=== PATIENT | male | born 1955 | race Caucasian/White ===

== ENCOUNTER 2019-03-26 16:31 | Emergency (ER) | payer MEDICARE, OTHER ==
--- OUTSIDE RECORDS SUMMARY | 2019-03-26 16:33 | XMS REPORT | Summary of Care ---
:1955 Author Organization [facility] - [facility] Address [address] [place] [id number] Care Team Providers Name Role Phone Terell Mann Primary Care Provider Reason for Visit Reason Comments Follow-up Encounter Details Date Type Department Care Team Description 09/12/2018 Office Visit [facility] Ben Hernandez MD [address] [place] [id number] Acute hematogenous Infectious Diseases- Alfredo Cage MD [address] [place] [address]. [place] [address] osteomyelitis of right Dahinda foot (Primary Dx) [facility] [address], [address] [place] [address] Allergies Active Allergy Reactions Severity Noted Date Comments Hydrocodone-Acetaminophen Nausea and/or Vomiting Low 05/10/2011 documented as of this encounter (statuses as of 09/12/2018) Medications Medication Sig Dispensed Refills Start Date End Date Status omeprazole (PRILOSEC) Take 40 mg by 0 Active 20 mg capsule mouth daily. aspirin 325 mg tablet Take 325 mg by 0 Active mouth daily. citalopram (CELEXA) Take 40 mg by 0 Active 40 mg tablet mouth daily. clopidogrel (PLAVIX) Take 75 mg by 0 Active 75 mg tablet mouth daily. traMADOL 50 mg Take 1 tablet by 40 tablet 0 05/14/2018 Active tabletIndications: mouth every 6 Right foot infection (six) hours as needed for Pain (scale 4-6) or Pain (scale 7-10). insulin NPH 100 inject under 0 Active unit/mL injection the skin 3 (three) times daily. Sliding scale TID LISINOPRIL ORAL Take by mouth 0 Active as needed. atorvastatin 40 mg Take 1 tablet by 30 tablet 0 08/14/2018 09/13/2018 Active tabletIndications: mouth at bedtime Foot infection for 30 days. metFORMIN 1,000 mg Take 1 tablet by 60 tablet 0 08/14/2018 09/13/2018 Active tabletIndications: mouth 2 (two) Foot infection times daily with meals for 30 days. proMETHazine 12.5 mg Take 1 tablet by 20 tablet 0 08/27/2018 Active tablet mouth every 4 (four) hours as needed for Nausea and Vomiting (N/V). sulfamethoxazole-trim Take 2 tablets 120 tablet 0 09/12/2018 Active ethoprim (BACTRIM DS) by mouth 2 (two) 800-160 mg per times daily. 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, with long-term current use of insulin Infection of joint of ankle 08/10/2018 Cellulitis of foot 07/16/2018 S/P foot surgery 05/28/2018 S/P orthopedic surgery, follow-up exam 05/28/2018 Charcot's arthropathy 05/28/2018 Right foot infection 04/19/2018 Obesity (BMI 30-39.9) 11/29/2017 At risk for inadequate pain control 11/29/2017 documented as of this encounter (statuses as of 09/12/2018) Social History Tobacco Use Types Packs/Day Years Used Date Never Smoker Smokeless Tobacco: Never Used Education Answer Date Recorded What is the highest level of school Associate degree: occupational, 2018 you have completed or the highest technical, or vocational program degree you have received? Financial Resource Strain Answer Date Recorded How hard is it for you to pay for the very basics like Not hard at all 2018 food, housing, medical care, and heating? Food Insecurity Answer Date Recorded Within the past 12 months, you worried that your food would Not asked run out before you got money to buy more. Within the past 12 months, the food you bought just didn't Never true 2018 last and you didn't have money to get more. Transportation Needs Answer Date Recorded In the past 12 months, has lack of transportation kept you from No 08/10/2018 medical appointments or from getting medications? In the past 12 months, has lack of transportation kept you from No 08/10/2018 meetings, work, or getting things needed for daily living? Sex Assigned at Date Recorded Not on file Job Start Date Occupation Industry Not on file Not on file Not on file Travel History Travel Start Travel End No recent travel history available. documented as of this encounter Last Filed Vital Signs Vital Sign Reading Time Taken Comments Blood Pressure 135/64 09/12/2018 10:01 AM CDT Pulse 82 09/12/2018 10:01 AM CDT Temperature 36.8 C (98.2 F) 09/12/2018 10:01 AM CDT Respiratory Rate 18 09/12/2018 10:01 AM CDT Oxygen Saturation - - Inhaled Oxygen Concentration - - Weight 123.4 kg (272 lb) 09/12/2018 10:01 AM CDT Height 190.5 cm (6' 3") 09/12/2018 10:01 AM CDT Body Mass Index 34 09/12/2018 10:01 AM CDT documented in this encounter Progress Notes Alfredo Cage MD - 09/12/2018 11:00 AM CDT Visit Type: ID Followup Outpatient Date of service: 09/12/2018 CC: R foot osteomyelitis PERTINENT HPI: Pedro Estrella is a 63 year old male with history of uncontrolled DM, CAD s/p CABG ( 2011) via vein harvested from RLE, charcot deformity, R foot fracture s/p hardware placement c/b staph lugduenesis infection s/p hardware removal, here for follow up of R foot osteomyelitis. Patient had initial injury of R foot 11/2017 found with fracture and underwent nail placement. He had external fixator which was removed 01/2018. During 2018 he was found to have abscess at R hindfoot ad loosening nails in calcaneus and underwent hardware removal. Cultures of tissues and hardwares both grew staph lugduenesis, he was not treated with further abx post removal. He subsequently hadworsening R foot swelling and erythema leading up to admission when he was discharged and received 2 courses of bacterim. LCV 2018, he reported subjective fever and chills, and pain andswelling of R foot. His sed rate and CRP remained elevated at 112 and 9. MRI of R foot revealed effusion at base of R ankle T1 diminished signal and T2 hyperintensity suspicious for abscess. He was admitted at [place], I&D of R foot collection was negative on gram stain and culture (he had received 3 days of high dose bactrim at that time). He was off abx for 2 weeks before returning to orthoepedics 08/27, and in office fluid aspiration was not sent for culture. INTERIM HISTORY He reported improvement of swelling and pain of R foot since aspiration and abx. He has been off abx since discharge. He denied fever/chills, anorexia, night sweat or weight loss. He is motivated toget his blood glucose under control taking sugar free drinks and counting calories. He is currentlytaking insulin at this time. ANTIMICROBIAL HISTORY None currently PMH: Past Medical History: Diagnosis Date Depression GERD (gastroesophageal reflux disease) Type 2 diabetes mellitus MEDICATIONS Current Outpatient Medications on File Prior to Visit Medication Sig Dispense Refill proMETHazine 12.5 mg tablet Take 1 tablet by mouth every 4 (four) hours as needed for Nausea andVomiting (N/V). 20 tablet 0 atorvastatin 40 mg tablet Take 1 tablet by mouth at bedtime for 30 days. 30 tablet 0 metFORMIN 1,000 mg tablet Take 1 tablet by mouth 2 (two) times daily with meals for 30 days. 60 tablet 0 LISINOPRIL ORAL Take by mouth as needed. insulin NPH 100 unit/mL injection inject under the skin 3 (three) times daily. Sliding scale TID traMADOL 50 mg tablet Take 1 tablet by mouth every 6 (six) hours as needed for Pain (scale 4-6) or Pain (scale 7-10). 40 tablet 0 aspirin 325 mg tablet Take 325 mg by mouth daily. citalopram (CELEXA) 40 mg tablet Take 40 mg by mouth daily. clopidogrel (PLAVIX) 75 mg tablet Take 75 mg by mouth daily. omeprazole (PRILOSEC) 20 mg capsule Take 40 mg by mouth daily. No current facility-administered medications on file prior to visit. 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: [employer] Social Needs Financial resource strain: Not hard at all Food insecurity: Worry: Not on file Inability: Never true Transportation needs: Medical: No Non-medical: No Tobacco Use Smoking status: Never Smoker Smokeless tobacco: Never Used Substance and Sexual Activity Alcohol use: Not on file Drug use: Not on file Sexual activity: Not on file Lifestyle Physical activity: Days per week: Not on file Minutes per session: Not on file Stress: Not on file Relationships Social connections: Talks on phone: Not on file Gets together: Not on file Attends oriental orthodox service: Not on file Active member of club or organization: Not on file Attends meetings of clubs or organizations: Not on file Relationship status: Not on file Intimate partner violence: Fear of current or ex partner: Not on file Emotionally abused: Not on file Physically abused: Not on file Forced sexual activity: Not on file Other Topics Concern Not on file Social History Narrative Not on file FAMILY HISTORY No family history on file. No recent sick contacts or TB exposure PHYSICAL EXAM Constitutional: chronic ill appearing male BP 135/64 | Pulse 82 | Temp 36.8 C (98.2 F) (Oral) | Resp 18 | Ht 6' 3" (1.905 m) | Wt 272 lb (123.4 kg) | BMI 34.00 kg/m Eyes: EOMI, anicteric sclerae. Moist pink conjunctivae ENT: exam is normal CV: RRR, S1, S2 normal; no murmurs, rubs or gallops, arterial pulse +. Respiratory: clear to auscultation bilaterally, normal respiratory effort GI: abdomen soft; non-tender; non-distended; normoactive bowel sounds Musculoskeletal/skin: R foot with swelling at base of ankle to mid foot, improved compared to prior,chronic dermatitis present, no ulcers or maceration between toes. ROM of R ankle is intact. LABORATORY WBC (10*3/L) Date Value 09/12/2018 12.17 (H) HGB (g/dL) Date Value 09/12/2018 12.4 PLT (10*3/L) Date Value 09/12/2018 559 (H) CREATININE (mg/dL) Date Value 09/12/2018 1.01 GLUCOSE (mg/dL) Date Value 09/12/2018 93 ALT(SGPT) (U/L) Date Value 07/16/2018 34 AST(SGOT) (U/L) Date Value 07/16/2018 46 (H) ALK PHOS (U/L) Date Value 07/16/2018 426 (H) CULTURE DATA 04/20/2018 implant and tissue cultures Implant/Hardware/Ortho Infection Culture 1+ Staphylococcus lugdunensis Gram stain No Organisms seen Moderate Polymorphonuclear leukocytes Susceptibility Staphylococcus lugdunensis SUSCEPTIBILITY TESTING Clindamycin >=8 Resistant Erythromycin >=8 Resistant Oxacillin 2 Susceptible Penicillin >=0.5 Resistant Rifampin <=0.5 Susceptible Tetracycline <=1 Susceptible Trimethoprim/Sulfamethoxazole <=10 Susceptible RADIOLOGY MR R foot IMPRESSION Charcot arthropathy affecting the hindfoot and midfoot articulations with complex joint effusion containing susceptibility artifact worrisome for gas with superimposed intra-articular infection given this patient's clinical history. ASSESSMENT # Staph lugduenesis R foot hardware/deep tissue infection- s/p hardware removal 04/2017 #R foot osteomyelitis- hx hardware infection above with elevated sed rate and CRP, likely residual osteomeyelitis secondary to staph lugduenesis. # R ankle complicated collection - s/p aspiration 07/2018 culture negative while on bactrim, subsequent aspiration 08/2018 was not sent for culture. ROM intact intact, not likely septic arthritis. # leukocytosis and thrombocytosis Patient had R foot hardware subsequent complicated by staph lugduenesis hardware and soft tissue infection. Post hardware removal he still has elevated sed rate >100 with elevated CRP >15, all suggestive of chronic osteomyelitis of R foot. MRI foot revealed complicated collection at basel of [place], aspiration while on bactrim was negative; and aspiration off abx was not sent for culture. Cy discussed options regarding abx therapy with patient, intend for at least 3-6 month therapy. Will use bactrim as long as kidney function tolerates. PLAN - start bactrim DS 2 tabs bid. - labs today: bmp, CBC with diff, sed rate and crp - two weeks after started on abx will repeat bmp, if hyperkalemia, will need to titrate bactrim dose. - Discussed with patient importance of compliance with medications - Instructed patient to contact clinic or return if any new problems - RTC in 1 month The above patient was seen and discussed with Dr. David Cage PGY4 documented in this encounter Plan of Treatment Date Type Specialty Care Team Description 10/03/2018 Office Visit Infectious Disease Alfredo Cage MD [address] [place] [phone] Name Type Priority Associated Diagnoses Order Schedule SEDIMENTATION RATE LAB Routine Acute hematogenous 1 Occurrences starting osteomyelitis of right 09/12/2018 until foot 10/13/2018 C-REACTIVE PROTEIN LAB Routine Acute hematogenous 1 Occurrences starting osteomyelitis of right 09/12/2018 until foot 10/13/2018 BASIC METABOLIC PANEL LAB Routine Acute hematogenous 1 Occurrences starting (NA, K, CL, CO2, GLUCOSE, osteomyelitis of right 09/12/2018 until BUN, CREATININE, CA) foot 10/13/2018 Health Maintenance Due Date Last Done Comments HEPATITIS C (HCV) SCREEN 1955 PNEUMOCOCCAL 0-64 YEARS COMBINED 1960 SERIES (1 of 1 - PPSV23) EYE EXAM 1964 LDL-C 1964 URINE MICROALBUMIN 1964 FOOT EXAM 1972 DTaP,Tdap,and Td Vaccines (1 - 1973 Tdap) COLONOSCOPY 2004 Zoster Recombinant Vaccine 2004 (SHINGRIX) (1 of 2) INFLUENZA VACCINE 10/14/2018 HgA1C 01/29/2019 07/30/2018, 04/20/2018, 12/01/2017 CREATININE (SERUM) 08/15/2019 08/14/2018, 08/12/2018, 08/11/2018, Additional history exists documented as of this encounter Implants Implanted Type Area Surveyor Rod Helper Device Shelf Model / Identifier Expiration Serial / Date Lot Wire Westernport Offset Adapter Short Keswick 4933-1-004 - Sl2 S 2 Adapter Right: Keswick 11/27/2018 4933-1-004 / Implanted: Qty: 3 on 11/29/2017 by Austin Aguayo MD at [facility] Westernport Ankle L2 S 2 / NA End Cap, Zackary Protective For 5mm Pins Blue Pack Of 15 #5027-1-050 - Sna END CAP Right: K[place]wick 11/27/2018 [id number] / Implanted: Qty: 1 on 11/29/2017 by Austin Aguayo MD at [facility] NA / L2 S2 Macarthur Pin Adaptor, Short 6mm # 4933-1-020 - Sl2 S 2 PIN Right: Zackary 4933-1-020 / Implanted: Qty: 3 on 11/29/2017 by Austin Aguayo MD at [facility] Ankle L2 S 2 / NA Screw, Fixos Headless Compression 7.0x80mm Keswick #[id number] - Sl3 S 2 SCREW Right: Keswick 11/28/2018 [id number] / Implanted: Qty: 2 on 11/29/2017 by Austin Aguayo MD at [facility] Ankle L3 S 2 / NA Wire 2.0 With Nery [place] Zackary 4933-8-040 - Sna WIRE Right: STYKER 11/27/2018 [id number] / Implanted: Qty: 2 on 11/29/2017 by Austin Aguayo MD at [facility] NA / L 2 S 2 Half Pin Fixation 5mm X 150mml Macarthur Davis Coated Zackary Ref#[id number] Right : Keswick 04/12/2022 [id number] / Implanted: Qty: 1 on 11/29/2017 by Austin Aguayo MD at [facility] NA / [id number] Set Ring External Fixation Full 180mm Id Carbon Holex5 F/Foot & Ankle Fixation #[id number] - Sl2s2 Right: K[place]wick 11/27/2018 4933-5-180 / Implanted: Qty: 2 on 11/29/2017 by Austin Aguayo MD at [facility] Ankle L2S2 / NA Ring External Fixation 180mm #[id number] - Sl2 S 2 Right: Keswick 2018 4934-4-180 / Implanted: Qty: 1 on 11/29/2017 by Austin Aguayo MD at [facility] Ankle L2 S 2 / NA Ring Foot Carbon Fiber Long 180mm X 210mm Zackary Ref#[id number] Right: Zackary 11/27/2018 [id number] / Implanted: Qty: 1 on 11/29/2017 by Austin Aguayo MD at [facility] Ankle L2 S 2 / NA Nut External Fixation 6mm Tangela Short #[id number] - Sl2 S 2 Right: Zackary 11/27/2018 4933-1-010 / Implanted: Qty: 24 on 11/29/2017 by Austin Aguayo MD at [facility] Ankle L2 S 2 / NA Westernport External Fixation 6mm Tangela Carbon #[id number] - Sl2 S 2 Right: [place]wick 11/27/2018 [id number] / Implanted: Qty: 6 on 11/29/2017 by Austin Aguayo MD at [facility] Ankle L2 S 2 / NA Screw, Fixos Headless Compression 7.0x75mm Zackary #[id number] - Sl3 S 2 Right: [place]wick 11/28/2018 [id number] / Implanted: Qty: 1 on 11/29/2017 by Austin Aguayo MD at [facility] Ankle L3 S 2 / NA Screw, Fixos Headless Compression 7.1a730gt Zackary #[id number] - Sl3 S 2 Right : Zakcary 11/28/2018 [id number] / Implanted: Qty: 1 on 11/29/2017 by Austin Aguayo MD at [facility] Ankle L3 S 2 / NA Half Pin External Fixation [id number] Macarthur Davis Coated Self Drilling Zackary Ref #[id number] Right: Zackary 07/13/2022 [id number] / Implanted: Qty: 1 on 11/29/2017 by Austin Aguayo MD at [facility] NA / [id number] Half Pin External Fixation [id number] Macarthur Davis Coated Threaded Self Drilling Zackary Ref#[id number] Right: Zackary 04/12/2022 [id number] / Implanted: Qty: 1 on 11/29/2017 by Austin Aguayo MD at [facility] NA / [id number] Half Pin External Fixation [id number] Macarthur Davis Coated Threaded Self Frilling Zackary Ref#[id number] Right: Keswick 07/13/2022 [id number] / Implanted: Qty: 1 on 11/29/2017 by Austin Aguayo MD at [facility] Foot NA / [id number] Westernport External Fixation 1.5mm-2mm Medium 5 Hole Keswick Ref#[id number] Right : Zackary 4933-1-002 / Implanted: Qty: 4 on 11/29/2017 by Austin Aguayo MD at [facility] Ankle L 2 S 2 / NA Wire Adapter External Fixation 1.5mm-2mm Tangela Long #4933-1-005 - Sl 2 S 2 Right: K[place]wick 11/27/2018 4933-1-005 / Implanted: Qty: 1 on 11/29/2017 by Austin Aguayo MD at [facility] Ankle L 2 S 2 / NA Westernport External Fixation Long Carbon 40mml Threaded #4933-1-021 - Sl 2 S 2 Right: Keswick 11/27/2018 4933-1-021 / Implanted: Qty: 1 on 11/29/2017 by Austin Aguayo MD at [facility] Ankle L 2 S 2 / NA Strut External Fixation Mediium 138-201mml Telescope Blue Zackary Ref#4933-0- 140 Right: Zackary 4933-0-140 / Implanted: Qty: 4 on 11/29/2017 by Austin Aguayo MD at [facility] Ankle L2 S 2 / NA Strut External Fixation Long 60mml Carbon #[id number] - Sl 2 S 2 Right: Zackary 11/27/2018 4933-1-560 / Implanted: Qty: 3 on 11/29/2017 by Austin Aguayo MD at [facility] L 2 S 2 / NA documented as of this encounter Procedures Procedure Name Priority Date/Time Associated Diagnosis Comments CBC WITH DIFFERENTIAL Routine 09/12/2018 12:27 Acute hematogenous Results for this PM CDT osteomyelitis of procedure are in right foot the results section. CBC WITH DIFF Routine 09/12/2018 12:27 Acute hematogenous Results for this PM CDT osteomyelitis of procedure are in right foot the results section. SEDIMENTATION RATE Routine 09/12/2018 12:27 Acute hematogenous Results for this PM CDT osteomyelitis of procedure are in right foot the results section. BASIC METABOLIC PANEL Routine 09/12/2018 12:27 Acute hematogenous Results for this (NA, K, CL, CO2, PM CDT osteomyelitis of procedure are in GLUCOSE, BUN, right foot the results CREATININE, CA) section. C-REACTIVE PROTEIN Routine 09/12/2018 12:27 Acute hematogenous Results for this PM CDT osteomyelitis of procedure are in right foot the results section. documented in this encounter Results CBC WITH DIFFERENTIAL (09/12/2018 12:27 PM CDT) WBC 12.17 (H) 4.20 - 10.70 [facility] 10*3/L SERVICES RBC 4.69 4.26 - 5.52 [facility] 10*6/L SERVICES HGB 12.4 12.2 - 16.4 [facility] g/dL SERVICES HCT 40.5 38.4 - 49.3 % [facility] MCV 86.4 81.7 - 95.6 fL [facility] MCH 26.4 26.1 - 32.7 pg [facility] MCHC 30.6 (L) 31.2 - 35.0 [facility] g/dL SERVICES RDW-SD 55.4 (H) 38.5 - 51.6 fL [facility] SERVICES RDW-CV 17.9 (H) 12.1 - 15.4 % [facility] SERVICES PLT 559 (H) 150 - 328 [facility] 10*3/L SERVICES MPV 10.6 9.8 - 13.0 fL [facility] SERVICES NRBC/100 WBC 0.0 0.0 - 10.0 /100 [facility] WBCs SERVICES NRBC x10^3 <0.01 10*3/L [facility] SERVICES GRAN MAT (NEUT) % 49.5 % [facility] IMM GRAN % 0.70 % [facility] LYMPH % 36.9 % [facility] MONO % 9.7 % [facility] EOS % 2.5 % [facility] BASO % 0.7 % [facility] GRAN MAT x10^3(ANC) 6.03 1.99 - 6.95 [facility] 10*3/uL SERVICES IMM GRAN x10^3 0.09 (H) 0.00 - 0.06 [facility] 10*3/uL SERVICES LYMPH x10^3 4.49 (H) 1.09 - 3.23 [facility] 10*3/uL SERVICES MONO x10^3 1.18 (H) 0.36 - 1.02 [facility] 10*3/uL SERVICES EOS x10^3 0.30 0.06 - 0.53 [facility] 10*3/uL SERVICES BASO x10^3 0.08 0.01 - 0.09 [facility] 10*3/uL SERVICES Specimen Blood Performing Organization Address City/State/Zipcode Phone Number [facility] CLIA: [id number], [address] [place] [phone] [facility] BASIC METABOLIC PANEL (NA, K, CL, CO2, GLUCOSE, BUN, CREATININE, CA) (2018 12:27 PM CDT) NA 141 135 - 145 mmol/L [facility] K 4.9 3.5 - 5.0 mmol/L [facility] CL 104 98 - 108 mmol/L [facility] CO2 TOTAL 27 23 - 31 mmol/L [facility] AGAP 10 2 - 16 [facility] BUN 19 7 - 23 mg/dL [facility] GLUCOSE 93 70 - 110 mg/dL [facility] CREATININE 1.01 0.60 - 1.25 [facility] mg/dL SERVICES CALCIUM 9.5 8.6 - 10.6 mg/dL [facility] SERVICES eGFR Calculation 74.4 mL/min/1.73m2 [facility] (Non-) SERVICES eGFR Calculation 90.1 mL/min/1.73m2 [facility] () SERVICES Specimen Blood Narrative Performed At Association of Glomerular Filtration Rate (GFR) and Staging [facility] of Kidney Disease* + + + + | GFR (mL/min/1.73 m2)| With Kidney Damage|Without Kidney Damage + + + + |>90|Stage one| Normal + + + + |60-89|Stage two| Decreased GFR + + + + |30-59|Stage three| Stage three + + + + |15-29|Stage four | Stage four + + + + |<15 (or dialysis)|Stage five | Stage five + + + + *Each stage assumes the associated GFR level has been in effect for at least three months.Stages 1 to 5, with or without kidney disease, indicate chronic kidney disease. Notes: Determination of stages one and two (with eGFR >59mL/min/1.73 m2) requires estimation of kidney damage for at least three months as defined by structural or functional abnormalities of the kidney, manifested by either: Pathological abnormalities or Markers of kidney damage (including abnormalities in the composition of the blood or urine or abnormalities in imaging tests). Performing Organization Address [facility] Phone Number [facility] CLIA: [id number], [address] [place] [address] [facility] C-REACTIVE PROTEIN (09/12/2018 12:27 PM CDT) CRP 2.8 (H) <0.8 mg/dL [facility] Specimen Blood Performing Organization Address [facility] Phone Number [facility] CLIA: [id number], [address] [place] [address] [facility] SEDIMENTATION RATE (09/12/2018 12:27 PM CDT) ESR 65 (H) 0 - 10 mm/HR [facility] Specimen Blood Performing Organization Address [facility] Phone Number [facility] CLIA: [id number], [address] [place] [address] [facility] documented in this encounter Visit Diagnoses Diagnosis Acute hematogenous osteomyelitis of right foot - Primary documented in this encounter Insurance Payer Benefit Plan / Subscriber ID Effective Phone Address Type Group Dates [place] AARP MEDICARE [id number] 2018-Prese Medicare Adv HEALTHCARE - COMPLETE nt [place] MANAGED MEDICARE documented as of this encounter
--- OUTSIDE RECORDS SUMMARY | 2019-03-26 16:33 | XMS REPORT | Summary of Care ---
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 [facility] Ben Hernandez MD [address] [place] [address] Acute hematogenous [facility] osteomyelitis of right foot Allergies Active Allergy Reactions Severity Noted Date [...] of this encounter Last Filed Vital Signs Not on filedocumented in this encounter Plan of Treatment Date Type Specialty Care Team Description 11/07/2018 Office Visit Infectious Disease Alfredo Cage MD [address] [place] [phone] Health Maintenance Due Date Last Done Comments [...] of this encounter Implants Implanted Type Area All Round Logger Device Shelf Model / Identifier Expiration Serial / Date Lot Wire [place] Offset Adapter Short Briggs 4933-1-004 - Sl2 S 2 Adapter Right: Briggs 11/27/2018 4933-1-004 / Implanted: Qty: 3 on 11/29/2017 by Austin Aguayo MD at [facility] [place] Ankle L2 S 2 / NA End Cap, Briggs Protective For 5mm Pins Blue Pack Of 15 #5027-1-050 - Sna END CAP Right: Zackary 11/27/2018 5027-1-050 / Implanted: Qty: 1 on 11/29/2017 by Austin Aguayo MD at [facility] NA / L2 S2 Anderson Pin Adaptor, Short 6mm # 4933-1-020 - Sl2 S 2 PIN Right: Zackary 4933-1-020 / Implanted: Qty: 3 on 11/29/2017 by Austin Aguayo MD at [facility] Ankle L2 S 2 / NA Screw, Fixos Headless Compression 7.0x80mm Zackary #[id number] - Sl3 S 2 SCREW Right: Briggs 11/28/2018 [id number] / Implanted: Qty: 2 on 11/29/2017 by Austin Aguayo MD at [facility] Ankle L3 S 2 / NA Wire 2.0 With Rafaela Nery Point Briggs 4933-8-040 - Sna WIRE Right: STYKER 11/27/2018 4933-8-040 / Implanted: Qty: 2 on 11/29/2017 by Austin Aguayo MD at [facility] AT [facility] NA / L 2 S 2 Half Pin Fixation 5mm X 150mml Anderson Davis Coated Zackary Ref#5017-8-150s Right : Zackary 04/12/2022 5017-8-150S / Implanted: Qty: 1 on 11/29/2017 by Austin Aguayo MD at [facility] AT [facility] NA / [id number] Set Ring External Fixation Full 180mm Id Carbon Holex5 F/Foot & Ankle Fixation #4933-5-180 - Sl2s2 Right: Zackayr 11/27/2018 4933-5-180 / Implanted: Qty: 2 on 11/29/2017 by Austin Aguayo MD at [facility] Ankle L2S2 / NA Ring External Fixation 180mm #4934-4-180 - Sl2 S 2 Right: Briggs 2018 4934-4-180 / Implanted: Qty: 1 on 11/29/2017 by Austin Aguayo MD at [facility] Ankle L2 S 2 / NA Ring Foot Carbon Fiber Long 180mm X 210mm Zackary Ref#4934-8-180 Right: Briggs 11/27/2018 4934-8-180 / Implanted: Qty: 1 on 11/29/2017 by Austin Aguayo MD at [facility] Ankle L2 S 2 / NA Nut External Fixation 6mm Tangela Short #4933-1-010 - Sl2 S 2 Right: Briggs 11/27/2018 4933-1-010 / Implanted: Qty: 24 on 11/29/2017 by Austin Aguayo MD at [facility] Ankle L2 S 2 / NA [place] External Fixation 6mm Tangela Carbon #4933-1-702 - Sl2 S 2 Right: Briggs 11/27/2018 4933-1-702 / Implanted: Qty: 6 on 11/29/2017 by Austin Aguayo MD at [facility] Ankle L2 S 2 / NA Screw, Fixos Headless Compression 7.0x75mm Zackary #[id number] - Sl3 S 2 Right: Zackary 11/28/2018 110044 / Implanted: Qty: 1 on 11/29/2017 by Austin Aguayo MD at [facility] Ankle L3 S 2 / NA Screw, Fixos Headless Compression 7.3l310pw Zackary #[id number] - Sl3 S 2 Right : Briggs 11/28/2018 [id number] / Implanted: Qty: 1 on 11/29/2017 by Austin Aguayo MD at [facility] Ankle L3 S 2 / NA Half Pin External Fixation [id number] [place] Coated Self Drilling Briggs Ref #5017-3-150s Right: Zackary 07/13/2022 5017-3-150S / Implanted: Qty: 1 on 11/29/2017 by Austin Aguayo MD at [facility] NA / [id number] Half Pin External Fixation [id number] Anderson Davis Coated Threaded Self Drilling Zackary Ref#5018-5-150s Right: Briggs 04/12/2022 5018-5-150S / Implanted: Qty: 1 on 11/29/2017 by Austin Aguayo MD at [facility] NA / [id number] Half Pin External Fixation [id number] Anderson Davis Coated Threaded Self Frilling Zackary Ref#5017-3-150s Right: Briggs 07/13/2022 5017-3-150S / Implanted: Qty: 1 on 11/29/2017 by Austin Aguayo MD at [facility] Foot NA / [id number] [place] External Fixation 1.5mm-2mm Medium 5 Hole Briggs Ref#4933-1-002 Right : Zackary 4933-1-002 / Implanted: Qty: 4 on 11/29/2017 by Austin Aguayo MD at [facility] Ankle L 2 S 2 / NA Wire Adapter External Fixation 1.5mm-2mm Tangela Long #4933-1-005 - Sl 2 S 2 Right: Zackary 11/27/2018 4933-1-005 / Implanted: Qty: 1 on 11/29/2017 by Austin Aguayo MD at [facility] Ankle L 2 S 2 / NA [place] External Fixation Long Carbon 40mml Threaded #4933-1-021 - Sl 2 S 2 Right: Zackary 11/27/2018 4933-1-021 / Implanted: Qty: 1 on 11/29/2017 by Austin Aguayo MD at [facility] Ankle L 2 S 2 / NA Strut External Fixation Mediium 138-201mml Telescope Blue Zackary Ref#4933-0- 140 Right: Zackary 4933-0-140 / Implanted: Qty: 4 on 11/29/2017 by Austin Aguayo MD at [facility] Ankle L2 S 2 / NA Strut External Fixation Long 60mml Carbon #4933-1-560 - Sl 2 S 2 Right: Zackary 11/27/2018 4933-1-560 / Implanted: Qty: 3 on 11/29/2017 by Austin Aguayo MD at [facility] [place] Ankle L 2 S 2 / NA documented as of this encounter Results Not on filedocumented in this encounter Visit Diagnoses Diagnosis Acute hematogenous osteomyelitis of right foot documented in this encounter Insurance Payer Benefit Plan / Subscriber ID Effective Phone Address Type Group Dates [place] AARP MEDICARE [id number] 2018-Prese Medicare Adv HEALTHCARE - COMPLETE nt [facility] MANAGED MEDICARE documented as of this encounter
--- OUTSIDE RECORDS SUMMARY | 2019-03-26 16:34 | XMS REPORT | Summary of Care ---
:1955 Author Organization [facility] Address [address] [place] [id number] Care Team Providers Name Role Phone MannTerell robbins Primary Care Provider Reason for Visit Reason Comments Follow-up Acute Hematogenous osteomyelitis of the right foot. Encounter Details Date Type Department Care Team Description 10/03/2018 Office Visit [facility] Ben Hernandez MD [address] [place] [address] [id number] Osteomyelitis, Infectious Diseases- Alfredo Cage MD [address] [place] [address]. [place] [address] unspecified [facility], [place] unspecified type [facility] (Primary Dx) [address], [address] [place] [address] Allergies Active Allergy Reactions Severity Noted Date Comments Hydrocodone-Acetaminophen Nausea and/or Vomiting Low 05/10/2011 documented as of this encounter (statuses as of 10/03/2018) Medications Medication Sig Dispensed Refills Start Date End Date Status omeprazole Take 40 mg by 0 Active (PRILOSEC) 20 mg mouth daily. capsule aspirin 325 mg Take 325 mg by 0 Active tablet mouth daily. citalopram (CELEXA) Take 40 mg by 0 Active 40 mg tablet mouth daily. clopidogrel Take 75 mg by 0 Active (PLAVIX) 75 mg mouth daily. tablet traMADOL 50 mg Take 1 tablet 40 tablet 0 05/14/2018 Active tabletIndications: by mouth every Right foot 6 (six) hours infection as needed for Pain (scale 4-6) or Pain (scale 7-10). insulin NPH 100 inject under 0 Active unit/mL injection the skin 3 (three) times daily. Sliding scale TID LISINOPRIL ORAL Take by mouth 0 Active as needed. doxycycline 100 mg Take 1 capsule 60 capsule 2 10/03/2018 Active capsuleIndications: by mouth every Osteomyelitis, 12 (twelve) unspecified site, hours. unspecified type proMETHazine 12.5 Take 1 tablet 20 tablet 0 10/03/2018 Active mg by mouth every tabletIndications: 4 (four) hours Osteomyelitis, as needed for unspecified site, Nausea and unspecified type Vomiting (N/V). proMETHazine 12.5 Take 1 tablet 20 tablet 0 08/27/2018 Discontinued mg tablet by mouth every 9 4 (four) hours as needed for Nausea and Vomiting (N/V). sulfamethoxazole-tr Take 1 tablet 120 tablet 0 09/26/2018 Discontinued imethoprim (BACTRIM by mouth 2 9 DS) 800-160 mg per (two) times tabletIndications: daily. Acute hematogenous osteomyelitis of right foot documented as of this encounter (statuses as of 10/03/2018) Active Problems Problem Noted Date Septic arthritis [...] as of this encounter (statuses as of 10/03/2018) Social History Tobacco Use Types Packs/Day Years Used Date Never Smoker Smokeless Tobacco: Never Used Tobacco Cessation: Counseling Given: No Education Answer Date Recorded What is the [...] Sign Reading Time Taken Comments Blood Pressure 137/69 10/03/2018 9:12 AM CDT Pulse 86 10/03/2018 9:12 AM CDT Temperature 36.8 C (98.3 F) 10/03/2018 8:32 AM CDT Respiratory Rate 16 10/03/2018 8:32 AM CDT Oxygen Saturation - - Inhaled Oxygen Concentration - - Weight 122.8 kg (270 lb 11.2 oz) 10/03/2018 8:32 AM CDT Height 190.5 cm (6' 3") 10/03/2018 8:32 AM CDT Body Mass Index 33.84 10/03/2018 8:32 AM CDT documented in this encounter Progress Notes Alfredo Cage MD - 10/03/2018 8:00 AM CDT Visit Type: ID Followup Outpatient Date of service: 10/03/2018 CC: R foot osteomyelitis PERTINENT HPI: Pedro Estrella is a 63 year old malewith history of uncontrolled DM, CAD s/p CABG [...] suspicious for abscess. He was admitted at [place], I&D of R foot collection was negative on gram stain and culture (he had received 3 days of high dose bactrim at that time). He was off abx for 2 weeks before returning to orthoepedics 08/27, and in office fluid aspiration was not sent for culture. He was started on high dose bactrim 09/12 however 2 weeks bmp check showed hyperkalemia and elevated Cr, patient was instructed to lower bactrim to DS 1 tab bid. Sed rate has improved from 65 to 44, and CRP from 2.8 to 1.4 whileon PO bactrim. INTERIM HISTORY Patient reports foot edema has improved but still had R foot pain. No active ulcer or drainage at this time. Patient denied fever, night sweat, diarrhea or rash with abx. Patient has been experiencing symptomatic hypoglycemia about once per week, when he gets shaky and needs to take something to eat. It happens most frequently at night time. He also has been experiencing dizziness (light headness) when standing up too quickly that takes a bit to adjust. He is afraid of taking lisinopril because when he does, the blood pressure will drop to 110 and he gets dizzy with this blood pressure. He has not had fall. ANTIMICROBIAL HISTORY Bactrim 09/12/2018- [facility]: Past Medical History: Diagnosis Date Depression GERD (gastroesophageal reflux disease) Type 2 diabetes mellitus MEDICATIONS Current Outpatient Medications on File Prior to Visit Medication Sig Dispense Refill LISINOPRIL ORAL Take by mouth as needed. 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 BP 137/69 (BP Location: Left arm, Patient Position: Sitting, BP CUFF SIZE: Adult Medium) | Pulse 86 | Temp 36.8 C (98.3 F) (Oral) | Resp 16 | Ht 6' 3" (1.905 m) | Wt 270 lb 11.2 oz (122.8 kg)| BMI 33.84 kg/m Eyes: EOMI, anicteric sclerae. Moist pink conjunctivae ENT: exam is normal CV: RRR, non tachycardic, regular, no m/r/g Respiratory: clear to auscultation bilaterally, normal respiratory effort GI: abdomen soft; non-tender; non-distended; normoactive bowel sounds Musculoskeletal: R ankle still appears to be swollen, no knee effusion. ROM at R ankle is intact. Charcot deformity is present. Skin: no ulceration over R foot, no masceration between toe webs. LABORATORY WBC (10*3/L) Date Value 09/12/2018 12.17 (H) HGB (g/dL) Date Value 09/12/2018 12.4 PLT (10*3/L) Date Value 09/12/2018 559 (H) CREATININE (mg/dL) Date Value 10/03/2018 1.37 (H) GLUCOSE (mg/dL) Date Value 10/03/2018 160 (H) ALT(SGPT) (U/L) Date Value 07/16/2018 34 AST(SGOT) (U/L) Date Value 07/16/2018 46 (H) ALK PHOS (U/L) Date Value 07/16/2018 426 (H) CULTURE DATA CULTURE DATA 04/20/2018 implant and tissue cultures [...] infection given this patient's clinical history. ASSESSMENT #Staph lugduenesis R foot hardware/deep tissue infection- s/p hardware removal 04/2017 #R foot osteomyelitis- hx hardware infection above with elevated sed rate and CRP, likely residual osteomeyelitis secondary to staph lugduenesis. #R ankle complicated collection - s/p aspiration 07/2018 culture negative while on bactrim, subsequent aspiration 08/2018 was not sent for culture. ROM intact intact, not likely septic arthritis. #leukocytosis and thrombocytosis Patient had R foot hardware subsequent complicated by staph lugduenesis hardware and soft tissue infection. Post hardware removal he still has elevated sed rate >100 with elevated CRP >15, all suggestive of chronic osteomyelitis of R foot. MRI foot revealed complicated collection at basel of [place], aspiration while on bactrim was negative; and aspiration off abx was not sent for culture. Hewas started on high dose bactrim, however has mild elevation in Cr and hyperkalemia, at this time will frame changer to doxycycline. Other problems: #DM with peripheral neuropathy and likely autonomic dysfunction #CAD s/p PCI PLAN - stop bactrim, start doxycycline 100 mg bid - labs in 2 weeks, sed rate and CRP and bmp - Discussed with patient importance of compliance with medications - Instructed patient to contact clinic or return if any new problems - RTC in 3 mo The above patient was seen and discussed with Dr. David Cage PGY4 documented in this encounter Plan of Treatment Date Type Specialty Care Team Description 01/09/2019 Office Visit Infectious Disease Alfredo Cage MD [address] [place] [address]. [place] [address] Health Maintenance Due Date Last Done Comments HEPATITIS C (HCV) SCREEN 1955 PNEUMOCOCCAL 0-64 YEARS COMBINED 1960 SERIES (1 of 1 - PPSV23) EYE EXAM 1964 LDL-C 1964 URINE MICROALBUMIN 1964 FOOT EXAM 1972 DTaP,Tdap,and Td Vaccines (1 - 1973 Tdap) COLONOSCOPY 2004 Zoster Recombinant Vaccine 2004 (SHINGRIX) (1 of 2) INFLUENZA VACCINE (#1) 2018 HgA1C 01/29/2019 07/30/2018, 04/20/2018, 12/01/2017 CREATININE (SERUM) 09/27/2019 09/26/2018, 09/12/2018, 08/14/2018, Additional history exists documented as of this encounter Implants Implanted Type Area Transit Planner Device Shelf Model / Identifier Expiration Serial / Date Lot Wire [place] Offset Adapter Short [place] 4933-1-004 - Sl2 S 2 Adapter Right: [place] 11/27/2018 4933-1-004 / Implanted: Qty: 3 on 11/29/2017 by Austin Aguayo MD at [facility] [place] [facility] [place] Ankle L2 S 2 / NA End Cap, Zackary Protective For 5mm Pins Blue Pack Of 15 #5027-1-050 - Sna END CAP Right: [place] 11/27/2018 5027-1-050 / Implanted: Qty: 1 on 11/29/2017 by Austin Aguayo MD at [facility] AT [facility] NA / L2 S2 [place] [employer] Pin Adaptor, Short 6mm # 4933-1-020 - Sl2 S 2 PIN Right: [place] 4933-1-020 / Implanted: Qty: 3 on 11/29/2017 by Austin Aguayo MD at [facility] AT [facility] L2 S 2 / NA Screw, Fixos Headless Compression 7.0x80mm [place] #[id number] - Sl3 S 2 SCREW Right: [place] 11/28/2018 [id number] / Implanted: Qty: 2 on 11/29/2017 by Austin Aguayo MD at [facility] AT [facility] L3 S 2 / NA Wire 2.0 With Nery [place] Zackary 4933-8-040 - Sna WIRE Right: STYKER 11/27/2018 4933-8-040 / Implanted: Qty: 2 on 11/29/2017 by Austin Aguayo MD at [facility] [employer] NA / L 2 S 2 Half Pin Fixation 5mm X 150mml [employer] Davis Coated Zackary Ref#5017-8-150s Right : Zackary 04/12/2022 5017-8-150S / Implanted: Qty: 1 on 11/29/2017 by Austin Aguayo MD at [facility] AT [facility] NA / [id number] Set Ring External Fixation Full 180mm Id Carbon Holex5 F/Foot & Ankle Fixation #4933-5-180 - Sl2s2 Right: [place] 11/27/2018 4933-5-180 / Implanted: Qty: 2 on 11/29/2017 by Austin Aguayo MD at [facility] [place] [facility] Ankle L2S2 / NA Ring External Fixation 180mm #4934-4-180 - Sl2 S 2 Right: Zackary 2018 4934-4-180 / Implanted: Qty: 1 on 11/29/2017 by Austin Aguayo MD at [facility] [place] [facility] Ankle L2 S 2 / NA Ring Foot Carbon Fiber Long 180mm X 210mm [place] Ref#4934-8-180 Right: [place] 11/27/2018 4934-8-180 / Implanted: Qty: 1 on 11/29/2017 by Austin Aguayo MD at [facility] AT [facility] Ankle L2 S 2 / NA Nut External Fixation 6mm [place] Short #4933-1-010 - Sl2 S 2 Right: [place] 11/27/2018 4933-1-010 / Implanted: Qty: 24 on 11/29/2017 by Austin Aguayo MD at [facility] AT [facility] Ankle L2 S 2 / NA [place] External Fixation 6mm Tangela Carbon #4933-1-702 - Sl2 S 2 Right: [place]ack[place] 11/27/2018 4933-1-702 / Implanted: Qty: 6 on 11/29/2017 by Austin Aguayo MD at [facility] AT [facility] Ankle L2 S 2 / NA Screw, Fixos Headless Compression 7.0x75mm [place] #[id number] - Sl3 S 2 Right: Zackary 11/28/2018 [id number] / Implanted: Qty: 1 on 11/29/2017 by Austin Aguayo MD at [facility] [place] [facility] Ankle L3 S 2 / NA Screw, Fixos Headless Compression 7.9p505fl [place] #[id number] - Sl3 S 2 Right : Zackary 11/28/2018 [id number] / Implanted: Qty: 1 on 11/29/2017 by Austin Aguayo MD at [facility] [place] [facility] Ankle L3 S 2 / NA Half Pin External Fixation [id number] [employer] Davis Coated Self Drilling [place] Ref #5017-3-150s Right: [place] 07/13/2022 5017-3-150S / Implanted: Qty: 1 on 11/29/2017 by Austin Aguayo MD at [facility] [place] [facility] NA / [id number] Half Pin External Fixation [id number] [employer] Davis Coated Threaded Self Drilling Zackary Ref#5018-5-150s Right: Zackary 04/12/2022 5018-5-150S / Implanted: Qty: 1 on 11/29/2017 by Austin Aguayo MD at [facility] AT [facility] NA / [id number] Half Pin External Fixation [id number] [employer] Davis Coated Threaded Self Frilling [place] Ref#5017-3-150s Right: [place] 07/13/2022 5017-3-150S / Implanted: Qty: 1 on 11/29/2017 by Austin Aguayo MD at [facility] [place] [facility] Foot NA / [id number] [place] External Fixation 1.5mm-2mm Medium 5 Hole [place] Ref#4933-1-002 Right : [place] 4933-1-002 / Implanted: Qty: 4 on 11/29/2017 by Austin Aguayo MD at [facility] AT [facility] Ankle L 2 S 2 / NA Wire Adapter External Fixation 1.5mm-2mm Tangela Long #4933-1-005 - Sl 2 S 2 Right: [place] 11/27/2018 4933-1-005 / Implanted: Qty: 1 on 11/29/2017 by Austin Aguayo MD at [facility] [place] [facility] Ankle L 2 S 2 / NA [place] External Fixation Long Carbon 40mml Threaded #4933-1-021 - Sl 2 S 2 Right: Zackary 11/27/2018 4933-1-021 / Implanted: Qty: 1 on 11/29/2017 by Austin Aguayo MD at [facility] [place] [facility] Ankle L 2 S 2 / NA Strut External Fixation Mediium 138-201mml Telescope Blue Zackary Ref#4933-0- 140 Right: Zack[place] 4933-0-140 / Implanted: Qty: 4 on 11/29/2017 by Austin Aguayo MD at [facility] [place] [facility] Ankle L2 S 2 / NA Strut External Fixation Long 60mml Carbon #4933-1-560 - Sl 2 S 2 Right: [place]ack[place] 11/27/2018 4933-1-560 / Implanted: Qty: 3 on 11/29/2017 by Austin Aguayo MD at [facility] [place] [facility] Ankle L 2 S 2 / NA documented as of this encounter Results Not on filedocumented in this encounter Visit Diagnoses Diagnosis Osteomyelitis, unspecified site, unspecified type - Primary documented in this encounter Insurance Payer Benefit Plan / Subscriber ID Effective Phone Address Type Group Dates [place] AARP MEDICARE [id number] 2018-Prese Medicare Adv [facility] documented as of this encounter
--- OUTSIDE RECORDS SUMMARY | 2019-03-26 16:34 | XMS REPORT | Summary of Care ---
:1955 Author Organization [address] [address] Care Team Providers Name Role Phone Terell Mann Primary Care Provider Reason for Visit Reason Comments Orders Encounter Details Date Type Department Care Team Description 09/24/2018 Telephone [facility] Infectious Alfredo Cage MD Orders Diseases- [address] [place] [address] [place] [phone] [place] [address] Allergies Active Allergy Reactions Severity Noted Date Comments Hydrocodone-Acetaminophen Nausea and/or Vomiting Low 05/10/2011 documented as of this encounter (statuses as of 09/24/2018) Medications Medication Sig Dispensed Refills Start Date End Date Status omeprazole (PRILOSEC) Take 40 mg by 0 Active 20 mg capsule mouth daily. aspirin 325 mg tablet Take 325 mg by 0 Active mouth daily. citalopram (CELEXA) 40 Take 40 mg by 0 Active mg tablet mouth daily. clopidogrel (PLAVIX) Take 75 mg by 0 Active 75 mg tablet mouth daily. traMADOL 50 mg Take 1 tablet by 40 tablet 0 05/14/2018 Active tabletIndications: mouth every 6 Right foot infection (six) hours as needed for Pain (scale 4-6) or Pain (scale 7-10). insulin NPH 100 inject under the 0 Active unit/mL injection skin 3 (three) times daily. Sliding scale TID LISINOPRIL ORAL Take by mouth as 0 Active needed. proMETHazine 12.5 mg Take 1 tablet by 20 tablet 0 08/27/2018 Active tablet mouth every 4 (four) hours as needed for Nausea and Vomiting (N/V). sulfamethoxazole-trime Take 2 tablets by 120 tablet 0 09/12/2018 Active thoprim (BACTRIM DS) mouth 2 (two) 800-160 mg per times daily. tabletIndications: Acute hematogenous osteomyelitis of right foot documented as of this encounter (statuses as of 09/24/2018) Active Problems Problem Noted Date Septic arthritis [...] as of this encounter (statuses as of 09/24/2018) Social History Tobacco Use Types Packs/Day Years [...] Office Visit Infectious Disease Alfredo Cage MD [address] [place] [phone] Health Maintenance Due Date Last Done Comments HEPATITIS C (HCV) SCREEN 1955 PNEUMOCOCCAL 0-64 YEARS COMBINED 1960 SERIES (1 of 1 - PPSV23) EYE EXAM 1964 LDL-C 1964 URINE MICROALBUMIN 1964 FOOT EXAM 1972 DTaP,Tdap,and Td Vaccines (1 - 1973 Tdap) COLONOSCOPY 2004 Zoster Recombinant Vaccine 2004 (SHINGRIX) (1 of 2) INFLUENZA VACCINE 10/14/2018 HgA1C 01/29/2019 07/30/2018, 04/20/2018, 12/01/2017 CREATININE (SERUM) 09/13/2019 09/12/2018, 08/14/2018, 08/12/2018, Additional history exists documented as of this encounter Implants Implanted Type Area Senior Controls Analyst Device Shelf Model / Identifier Expiration Serial / Date Lot Wire [place] Offset Adapter Short [place] 4933-1-004 - Sl2 S 2 Adapter Right: [place] 11/27/2018 4933-1-004 / Implanted: Qty: 3 on 11/29/2017 by Austin Aguayo MD at [facility] [place] [facility] S 2 / NA End Cap, [place] Protective For 5mm Pins Blue Pack Of 15 #5027-1-050 - Sna END CAP Right: [place]ack[place] 11/27/2018 5027-1-050 / Implanted: Qty: 1 on 11/29/2017 by Austin Aguayo MD at [facility] [place] AT [facility] Ankle NA / L2 S2 [place] Pin Adaptor, Short 6mm # 4933-1-020 - Sl2 S 2 PIN Right: Zackary 4933-1-020 / Implanted: Qty: 3 on 11/29/2017 by Austin Aguayo MD at [facility] AT [facility] Ankle L2 S 2 / NA Screw, Fixos Headless Compression 7.0x80mm [place] #[id number] - Sl3 S 2 SCREW Right: Zackary 11/28/2018 [id number] / Implanted: Qty: 2 on 11/29/2017 by Austin Aguayo MD at [facility] AT [facility] Ankle L3 S 2 / NA Wire 2.0 With Nery [place] Zackary 4933-8-040 - Sna WIRE Right: STYKER 11/27/2018 4933-8-040 / Implanted: Qty: 2 on 11/29/2017 by Austin Aguayo MD at [facility] AT [facility] NA / L 2 S 2 Half Pin Fixation 5mm X 150mml [place] Davis Coated [place] Ref#5017-8-150s Right : [place] 04/12/2022 5017-8-150S / Implanted: Qty: 1 on 11/29/2017 by Austin Aguayo MD at [facility] AT [facility] NA / [id number] Set Ring External Fixation Full 180mm Id Carbon Holex5 F/Foot & Ankle Fixation #4933-5-180 - Sl2s2 Right: [place] 11/27/2018 4933-5-180 / Implanted: Qty: 2 on 11/29/2017 by Austin Aguayo MD at [facility] AT [facility] Ankle L2S2 / NA Ring External Fixation 180mm #4934-4-180 - Sl2 S 2 Right: [place] 2018 4934-4-180 / Implanted: Qty: 1 on 11/29/2017 by Austin Aguayo MD at [facility] AT [facility] Ankle L2 S 2 / NA Ring Foot Carbon Fiber Long 180mm X 210mm [place] Ref#4934-8-180 Right: Zackary 11/27/2018 4934-8-180 / Implanted: Qty: 1 on 11/29/2017 by Austin Aguayo MD at [facility] [place] [facility] Ankle L2 S 2 / NA Nut External Fixation 6mm Tangela Short #4933-1-010 - Sl2 S 2 Right: [place] 11/27/2018 4933-1-010 / Implanted: Qty: 24 on 11/29/2017 by Austni Aguayo MD at [facility] [place] [facility] Ankle L2 S 2 / NA [place] External Fixation 6mm Tangela Carbon #4933-1-702 - Sl2 S 2 Right: [place] 11/27/2018 4933-1-702 / Implanted: Qty: 6 on 11/29/2017 by Austin Aguayo MD at [facility] [place] [facility] Ankle L2 S 2 / NA Screw, Fixos Headless Compression 7.0x75mm [place] #813700 - Sl3 S 2 Right: [place]ack[place] 11/28/2018 [id number] / Implanted: Qty: 1 on 11/29/2017 by Austin Aguayo MD at [facility] [place] [facility] Ankle L3 S 2 / NA Screw, Fixos Headless Compression 7.9j263ib [place] #[id number] - Sl3 S 2 Right : Zackary 11/28/2018 [id number] / Implanted: Qty: 1 on 11/29/2017 by Austin Aguayo MD at [facility] [place] [facility] Ankle L3 S 2 / NA Half Pin External Fixation [id number] [place] Coated Self Drilling [place] Ref #5017-3-150s Right: Zack[place] 07/13/2022 5017-3-150S / Implanted: Qty: 1 on 11/29/2017 by Austin Aguayo MD at [facility] [place] AT [facility] NA / [id number] Half Pin External Fixation [id number] [place] Coated Threaded Self Drilling [place] Ref#5018-5-150s Right: Zackary 04/12/2022 5018-5-150S / Implanted: Qty: 1 on 11/29/2017 by Austin Aguayo MD at [facility] [place] [facility] NA / [id number] Half Pin External Fixation [id number] [place] Coated Threaded Self Frilling [place] Ref#5017-3-150s Right: [place] 07/13/2022 5017-3-150S / Implanted: Qty: 1 on 11/29/2017 by Austin Aguayo MD at [facility] [place] AT [facility] Foot NA / [id number] [place] External Fixation 1.5mm-2mm Medium 5 Hole [place] Ref#4933-1-002 Right : [place] 4933-1-002 / Implanted: Qty: 4 on 11/29/2017 by Austin Aguayo MD at [facility] [place] [facility] Ankle L 2 S 2 / NA Wire Adapter External Fixation 1.5mm-2mm Tangela Long #4933-1-005 - Sl 2 S 2 Right: [place] 11/27/2018 4933-1-005 / Implanted: Qty: 1 on 11/29/2017 by Austin Aguayo MD at [facility] [place] AT [facility] Ankle L 2 S 2 / NA [place] External Fixation Long Carbon 40mml Threaded #4933-1-021 - Sl 2 S 2 Right: [place] 11/27/2018 4933-1-021 / Implanted: Qty: 1 on 11/29/2017 by Austin Aguayo MD at [facility] [place] AT [facility] Ankle L 2 S 2 / NA Strut External Fixation Mediium 138-201mml Telescope Blue [place] Ref#4933-0- 140 Right: [place] 4933-0-140 / Implanted: Qty: 4 on 11/29/2017 by Austin Aguayo MD at [facility] [place] [facility] Ankle L2 S 2 / NA Strut External Fixation Long 60mml [place] #4933-1-560 - Sl 2 S 2 Right: [place] 11/27/2018 4933-1-560 / Implanted: Qty: 3 on 11/29/2017 by Austin Aguayo MD at [facility] [place] [facility] Ankle L 2 S 2 / NA documented as of this encounter Results Not on filedocumented in this encounter Insurance Payer Benefit Plan / Subscriber ID Effective Phone Address Type Group Dates UNITED AARP MEDICARE [id number] 2018-Prese Medicare Adv HEALTHCARE - COMPLETE nt [place] MANAGED MEDICARE documented as of this encounter
--- OUTSIDE RECORDS SUMMARY | 2019-03-26 16:34 | XMS REPORT | Summary of Care ---
:1955 Author Organization [facility] - [facility] Address [address] [place] [address] Care Team Providers Name Role Phone Terell Mann Primary Care Provider Reason for Visit Reason Comments LAB Encounter Details Date Type Department Care Team Description 10/03/2018 Bark Tanner [place] [address] [facility] [address] [place] [address] Acute hematogenous [facility] osteomyelitis of right foot Allergies Active [...] for Nausea and Vomiting (N/V). sulfamethoxazole-trime Take 1 tablet by 120 tablet 0 09/26/2018 Active thoprim (BACTRIM DS) mouth 2 (two) [...] filedocumented in this encounter Plan of Treatment Name Type Priority Associated Diagnoses Date/Time SEDIMENTATION RATE LAB Routine Acute hematogenous 10/03/2018 8:07 AM osteomyelitis of right CDT foot C-REACTIVE PROTEIN LAB Routine Acute hematogenous 10/03/2018 8:07 AM osteomyelitis of right CDT foot BASIC METABOLIC PANEL LAB Routine Acute hematogenous 10/03/2018 8:07 AM (NA, K, CL, CO2, GLUCOSE, osteomyelitis of right CDT BUN, CREATININE, CA) foot Health Maintenance Due Date Last Done Comments [...] of this encounter Implants Implanted Type Area Fur Blower Device Shelf Model / Identifier Expiration Serial / Date Lot Wire [place] Offset Adapter Short [place] 4933-1-004 - Sl2 S 2 Adapter Right: [place] 11/27/2018 4933-1-004 / Implanted: Qty: 3 on 11/29/2017 by Austin Aguayo MD at [facility] [place] AT [facility] Ankle L2 S 2 / NA End Cap, Zackary Protective For 5mm Pins Blue Pack Of 15 #5027-1-050 - Sna END CAP Right: [place] 11/27/2018 5027-1-050 / Implanted: Qty: 1 on 11/29/2017 by Austin Aguayo MD at [facility] [place] AT [facility] Ankle NA / L2 S2 [place] Pin Adaptor, Short 6mm # 4933-1-020 - Sl2 S 2 PIN Right: [place] 4933-1-020 / Implanted: Qty: 3 on 11/29/2017 by Austin Aguayo MD at [facility] [place] AT [facility] Ankle L2 S 2 / NA Screw, Fixos Headless Compression 7.0x80mm Zackary #020284 - Sl3 S 2 SCREW Right: [place] 11/28/2018 [id number] / Implanted: Qty: 2 on 11/29/2017 by Austin Aguayo MD at [facility] [place] AT [facility] Ankle L3 S 2 / NA Wire 2.0 With Nery Russo Zackary 4933-8-040 - Sna WIRE Right: STYKER 11/27/2018 4933-8-040 / Implanted: Qty: 2 on 11/29/2017 by Austin Aguayo MD at [facility] [place] AT [facility] NA / L 2 S 2 Half Pin Fixation 5mm X 150mml [place] Davis Coated [place] Ref#5017-8-150s Right : [place] 04/12/2022 5017-8-150S / Implanted: Qty: 1 on 11/29/2017 by Austin Aguayo MD at [facility] [place] AT [facility] NA / [id number] Set Ring External Fixation Full 180mm Id Carbon Holex5 F/Foot & Ankle Fixation #4933-5-180 - Sl2s2 Right: [place] 11/27/2018 4933-5-180 / Implanted: Qty: 2 on 11/29/2017 by Austin Aguayo MD at [facility] AT [facility] Ankle L2S2 / NA Ring External Fixation 180mm #4934-4-180 - Sl2 S 2 Right: [place] 2018 4934-4-180 / Implanted: Qty: 1 on 11/29/2017 by Austin Aguayo MD at [facility] [place] AT [facility] Ankle L2 S 2 / NA Ring Foot Carbon Fiber Long 180mm X 210mm [place] Ref#4934-8-180 Right: Zackary 11/27/2018 4934-8-180 / Implanted: Qty: 1 on 11/29/2017 by Austin Aguayo MD at [facility] [place] AT [facility] Ankle L2 S 2 / NA Nut External Fixation 6mm Tangela Short #4933-1-010 - Sl2 S 2 Right: [place] 11/27/2018 4933-1-010 / Implanted: Qty: 24 on 11/29/2017 by Austin Aguayo MD at [facility] [place] AT [facility] Ankle L2 S 2 / NA [place] External Fixation 6mm Tangela Carbon #4933-1-702 - Sl2 S 2 Right: [place] 11/27/2018 4933-1-702 / Implanted: Qty: 6 on 11/29/2017 by Austin Aguayo MD at [facility] [place] AT [facility] Ankle L2 S 2 / NA Screw, Fixos Headless Compression 7.0x75mm [place] #[id number] - Sl3 S 2 Right: [place] 11/28/2018 526335 / Implanted: Qty: 1 on 11/29/2017 by Austin Aguayo MD at [facility] [place] AT [facility] Ankle L3 S 2 / NA Screw, Fixos Headless Compression 7.4e381ja Zackary #349540 - Sl3 S 2 Right : [place] 11/28/2018 [id number] / Implanted: Qty: 1 on 11/29/2017 by Austin Aguayo MD at [facility] AT [facility] Ankle L3 S 2 / NA Half Pin External Fixation [id number] [place] Davis Coated Self Drilling Zackary Ref #5017-3-150s Right: [place] 07/13/2022 5017-3-150S / Implanted: Qty: 1 on 11/29/2017 by Austin Aguayo MD at [facility] [place] [facility] NA / [id number] Half Pin External Fixation [id number] [place] Davis Coated Threaded Self Drilling [place] Ref#5018-5-150s Right: [place] 04/12/2022 5018-5-150S / Implanted: Qty: 1 on 11/29/2017 by Austin Aguayo MD at [facility] [place] AT [facility] NA / [id number] Half Pin External Fixation [id number] [place] Davis Coated Threaded Self Frilling Zackary Ref#5017-3-150s Right: [place] 07/13/2022 5017-3-150S / Implanted: Qty: 1 on 11/29/2017 by Austin Aguayo MD at [facility] [place] AT [facility] Foot NA / [id number] [place] External Fixation 1.5mm-2mm Medium 5 Hole Zackary Ref#4933-1-002 Right : [place] 4933-1-002 / Implanted: Qty: 4 on 11/29/2017 by Austin Aguayo MD at [facility] AT [facility] L 2 S 2 / NA Wire Adapter External Fixation 1.5mm-2mm Tangela Long #4933-1-005 - Sl 2 S 2 Right: [place] 11/27/2018 4933-1-005 / Implanted: Qty: 1 on 11/29/2017 by Austin Aguayo MD at [facility] AT [facility] Ankle L 2 S 2 / NA [place] External Fixation Long Carbon 40mml Threaded #4933-1-021 - Sl 2 S 2 Right: Zackary 11/27/2018 4933-1-021 / Implanted: Qty: 1 on 11/29/2017 by Austin Aguayo MD at [facility] AT [facility] Ankle L 2 S 2 / NA Strut External Fixation Mediium 138-201mml Telescope Blue Zackary Ref#4933-0- 140 Right: Zakcary 4933-0-140 / Implanted: Qty: 4 on 11/29/2017 by Austin Aguayo MD at [facility] AT [facility] Ankle L2 S 2 / NA Strut External Fixation Long 60mml Carbon #4933-1-560 - Sl 2 S 2 Right: Zackary 11/27/2018 4933-1-560 / Implanted: Qty: 3 on 11/29/2017 by Austin Aguayo MD at [facility] L 2 S 2 / NA documented as of this encounter Results Not on filedocumented in this encounter Visit Diagnoses Diagnosis Acute hematogenous osteomyelitis of right foot documented in this encounter Insurance Payer Benefit Plan / Subscriber ID Effective Phone Address Type Group Dates [place] AARP MEDICARE [id number] 2018-Prese Medicare Adv HEALTHCARE - COMPLETE nt HMO MANAGED MEDICARE documented as of this encounter
--- OUTSIDE RECORDS SUMMARY | 2019-03-26 16:34 | XMS REPORT | Summary of Care ---
:1955 Author Organization [address] [address] Care Team Providers Name Role Phone Terell Mann Primary Care Provider Reason for Visit Reason Comments Orders Encounter Details Date Type Department Care Team Description 10/03/[address] [facility] Infectious Alfredo Cage MD Orders Diseases- [address] [place] [address] [place] [address], [address] [place] [address] [place] [address] Allergies Active Allergy Reactions Severity [...] Take by mouth as 0 Active needed. doxycycline 100 mg Take 1 capsule by 60 capsule 2 10/03/2018 Active capsuleIndications: mouth every 12 Osteomyelitis, (twelve) hours. unspecified site, unspecified type proMETHazine 12.5 mg Take 1 tablet by 20 tablet 0 10/03/2018 Active tabletIndications: mouth every 4 Osteomyelitis, (four) hours as unspecified site, needed for Nausea unspecified type and Vomiting (N/V). documented as of this encounter (statuses as [...] Office Visit Infectious Disease Alfredo Cage MD [address] [place] [address] Name Type Priority Associated Diagnoses Order Schedule SEDIMENTATION RATE LAB Routine Osteomyelitis of right 1 Occurrences starting foot, unspecified type 10/03/2018 until 12/03/2018 C-REACTIVE PROTEIN LAB Routine Osteomyelitis of right 1 Occurrences starting foot, unspecified type 10/03/2018 until 12/03/2018 BASIC METABOLIC PANEL LAB Routine Osteomyelitis of right 1 Occurrences starting (NA, K, CL, CO2, GLUCOSE, foot, unspecified type 10/03/2018 until BUN, CREATININE, CA) 12/03/2018 Health Maintenance Due Date Last Done Comments [...] of this encounter Implants Implanted Type Area Desktop Support Specialist Device Shelf Model / Identifier Expiration Serial / Date Lot Wire [place] Offset Adapter Short [place] 4933-1-004 - Sl2 S 2 Adapter Right: Zackary 11/27/2018 4933-1-004 / Implanted: Qty: 3 on 11/29/2017 by Austin Aguayo MD at [facility] [place] AT [facility] [place] Ankle L2 S 2 / NA End Cap, Zackary Protective For 5mm Pins Blue Pack Of 15 #5027-1-050 - Sna END CAP Right: Zackary 11/27/2018 5027-1-050 / Implanted: Qty: 1 on 11/29/2017 by Austin Aguayo MD at [facility] [place] AT [facility] NA / L2 S2 [place] Pin Adaptor, Short 6mm # 4933-1-020 - Sl2 S 2 PIN Right: [place] 4933-1-020 / Implanted: Qty: 3 on 11/29/2017 by Austin Aguayo MD at [facility] AT [facility] Ankle L2 S 2 / NA Screw, Fixos Headless Compression 7.0x80mm Zackary #033825 - Sl3 S 2 SCREW Right: [place] 11/28/2018 582329 / Implanted: Qty: 2 on 11/29/2017 by Austin Aguayo MD at [facility] AT [facility] Ankle L3 S 2 / NA Wire 2.0 With Nery Russo [place] Zackary 4933-8-040 - Sna WIRE Right: [place] 11/27/2018 4933-8-040 / Implanted: Qty: 2 on 11/29/2017 by Austin Aguayo MD at [facility] [place] AT [facility] NA / L 2 S 2 Half Pin Fixation 5mm X 150mml [place] Davis Coated Zackary Ref#5017-8-150s Right : [place] 04/12/2022 5017-8-150S / Implanted: Qty: 1 on 11/29/2017 by Austin Aguayo MD at [facility] SPECIAL[facility] AT [facility] NA / [id number] Set Ring External Fixation Full 180mm Id Carbon Holex5 F/Foot & Ankle Fixation #4933-5-180 - Sl2s2 Right: Zackary 11/27/2018 4933-5-180 / Implanted: Qty: 2 on 11/29/2017 by Austin Aguayo MD at [facility] SPECIAL[facility] AT [facility] Ankle L2S2 / NA Ring External Fixation 180mm #4934-4-180 - Sl2 S 2 Right: Zackary 2018 4934-4-180 / Implanted: Qty: 1 on 11/29/2017 by Austin Aguayo MD at [facility] AT [facility] Ankle L2 S 2 / NA Ring Foot Carbon Fiber Long 180mm X 210mm Zackary Ref#4934-8-180 Right: [place] 11/27/2018 4934-8-180 / Implanted: Qty: 1 on 11/29/2017 by Austin Aguayo MD at [facility] SPECIAL[facility] AT [facility] Ankle L2 S 2 / NA Nut External Fixation 6mm Tangela Short #4933-1-010 - Sl2 S 2 Right: [place] 11/27/2018 4933-1-010 / Implanted: Qty: 24 on 11/29/2017 by Austin Aguayo MD at [facility] AT [facility] Ankle L2 S 2 / NA [place] External Fixation 6mm Tangela Carbon #4933-1-702 - Sl2 S 2 Right: Zackary 11/27/2018 4933-1-702 / Implanted: Qty: 6 on 11/29/2017 by Austin Aguayo MD at [facility] AT [facility] Ankle L2 S 2 / NA Screw, Fixos Headless Compression 7.0x75mm [place] #805469 - Sl3 S 2 Right: Zackary 11/28/2018 743143 / Implanted: Qty: 1 on 11/29/2017 by Austin Aguayo MD at [facility] AT [facility] Ankle L3 S 2 / NA Screw, Fixos Headless Compression 7.3r416ni Zackary #704083 - Sl3 S 2 Right : [place] 11/28/2018 906134 / Implanted: Qty: 1 on 11/29/2017 by Austin Aguayo MD at [facility] AT [facility] Ankle L3 S 2 / NA Half Pin External Fixation [id number] [place] Davis Coated Self Drilling [place] Ref #5017-3-150s Right: Zackary 07/13/2022 5017-3-150S / Implanted: Qty: 1 on 11/29/2017 by Austin Aguayo MD at [facility] [place] AT [facility] Ankle NA / [id number] Half Pin External Fixation [id number] [place] Davis Coated Threaded Self Drilling [place] Ref#5018-5-150s Right: Zackary 04/12/2022 5018-5-150S / Implanted: Qty: 1 on 11/29/2017 by Austin Aguayo MD at [facility] [place] AT [facility] NA / [id number] Half Pin External Fixation [id number] [place] Davis Coated Threaded Self Frilling Zackary Ref#5017-3-150s Right: Zackary 07/13/2022 5017-3-150S / Implanted: Qty: 1 on 11/29/2017 by Austin Aguayo MD at [facility] AT [facility] Foot NA / [id number] [place] External Fixation 1.5mm-2mm Medium 5 Hole Zackary Ref#4933-1-002 Right : Zackary 4933-1-002 / Implanted: Qty: 4 on 11/29/2017 by Austin Aguayo MD at [facility] [place] AT [facility] Ankle L 2 S 2 / NA Wire Adapter External Fixation 1.5mm-2mm Tangela Long #4933-1-005 - Sl 2 S 2 Right: [place] 11/27/2018 4933-1-005 / Implanted: Qty: 1 on 11/29/2017 by Austin Aguayo MD at [facility] AT [facility] Ankle L 2 S 2 / NA [place] External Fixation Long Carbon 40mml Threaded #4933-1-021 - Sl 2 S 2 Right: Zackary 11/27/2018 4933-1-021 / Implanted: Qty: 1 on 11/29/2017 by Austin Aguayo MD at [facility] SPECIAL[facility] AT [facility] Ankle L 2 S 2 / NA Strut External Fixation Mediium 138-201mml Telescope Blue Zackary Ref#4933-0- 140 Right: Zackary 4933-0-140 / Implanted: Qty: 4 on 11/29/2017 by Austin Aguayo MD at [facility] [place] AT [facility] Ankle L2 S 2 / NA Strut External Fixation Long 60mml Carbon #4933-1-560 - Sl 2 S 2 Right: [place] 11/27/2018 4933-1-560 / Implanted: Qty: 3 on 11/29/2017 by Austin Aguayo MD at [facility] Ankle L 2 S 2 / NA documented as of this encounter Results Not on filedocumented in this encounter Visit Diagnoses Diagnosis Osteomyelitis of right foot, unspecified type - Primary documented in this encounter Insurance Payer Benefit Plan / Subscriber ID Effective Phone Address Type Group Dates [place] AARP MEDICARE [id number] 2018-Prese Medicare Adv HEALTHCARE - COMPLETE nt HMO MANAGED MEDICARE documented as of this encounter
--- OUTSIDE RECORDS SUMMARY | 2019-03-26 16:34 | XMS REPORT | Summary of Care ---
:1955 Author Organization [facility] - [facility] Address [address] [place] [address] Care Team Providers Name Role Phone Terell Mann Primary Care Provider Encounter Details Date Type Department Care Team Description 09/26/2018 Orders Only [facility] Doctor Unassigned, No [address] 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 [place] [address] Health Maintenance Due Date Last [...] of this encounter Implants Implanted Type Area Batch Trucker Device Shelf Model / Identifier Expiration Serial / Date Lot Wire [place] Offset Adapter Short [place] 4933-1-004 - Sl2 S 2 Adapter Right: [place] 11/27/2018 4933-1-004 / Implanted: Qty: 3 on 11/29/2017 by Austin Aguayo MD at [facility] [place] AT [facility] Ankle L2 S 2 / NA End Cap, [place] Protective For 5mm Pins Blue Pack Of 15 #5027-1-050 - Sna END CAP Right: [place] 11/27/2018 5027-1-050 / Implanted: Qty: 1 on 11/29/2017 by Austin Aguayo MD at [facility] [place] AT [facility] Ankle NA / L2 S2 [place] Pin Adaptor, Short 6mm # 4933-1-020 - Sl2 S 2 PIN Right: Zackary 4933-1-020 / Implanted: Qty: 3 on 11/29/2017 by Austin Aguayo MD at [facility] [place] AT [facility] Ankle L2 S 2 / NA Screw, Fixos Headless Compression 7.0x80mm Zackary #236295 - Sl3 S 2 SCREW Right: [place] 11/28/2018 066956 / Implanted: Qty: 2 on 11/29/2017 by Austin Aguayo MD at [facility] [place] AT [facility] Ankle L3 S 2 / NA Wire 2.0 With Nery Russo Zackary 4933-8-040 - Sna WIRE Right: [place] 11/27/2018 4933-8-040 / Implanted: Qty: 2 on 11/29/2017 by Austin gAuayo MD at [facility] [place] AT [facility] NA / L 2 S 2 Half Pin Fixation 5mm X 150mml Luck Davis Coated Zackary Ref#5017-8-150s Right : [place] 04/12/2022 5017-8-150S / Implanted: Qty: 1 on 11/29/2017 by Austin Aguayo MD at [facility] AT [facility] NA / [id number] Set Ring External Fixation Full 180mm Id Carbon Holex5 F/Foot & Ankle Fixation #4933-5-180 - Sl2s2 Right: Zackary 11/27/2018 4933-5-180 / Implanted: Qty: 2 on 11/29/2017 by Austin Aguayo MD at [facility] AT [facility] Ankle L2S2 / NA Ring External Fixation 180mm #4934-4-180 - Sl2 S 2 Right: Zackary 2018 4934-4-180 / Implanted: Qty: 1 on 11/29/2017 by Austin Aguayo MD at [facility] [place] AT [facility] Ankle L2 S 2 / NA Ring Foot Carbon Fiber Long 180mm X 210mm Zackary Ref#4934-8-180 Right: Zackary 11/27/2018 4934-8-180 / Implanted: Qty: 1 on 11/29/2017 by Austin Aguayo MD at [facility] [place] AT [facility] Ankle L2 S 2 / NA Nut External Fixation 6mm Tangela Short #4933-1-010 - Sl2 S 2 Right: Zackary 11/27/2018 4933-1-010 / Implanted: Qty: 24 on 11/29/2017 by Austin Aguayo MD at [facility] [place] AT [facility] Ankle L2 S 2 / NA [place] External Fixation 6mm Tangela Carbon #4933-1-702 - Sl2 S 2 Right: [place] 11/27/2018 4933-1-702 / Implanted: Qty: 6 on 11/29/2017 by Austin Aguayo MD at [facility] [place] AT [facility] Ankle L2 S 2 / NA Screw, Fixos Headless Compression 7.0x75mm [place] #330419 - Sl3 S 2 Right: Zackary 11/28/2018 859296 / Implanted: Qty: 1 on 11/29/2017 by Austin Aguayo MD at [facility] [place] AT [facility] Ankle L3 S 2 / NA Screw, Fixos Headless Compression 7.9d961rb Zackary #058415 - Sl3 S 2 Right : Zackary 11/28/2018 200481 / Implanted: Qty: 1 on 11/29/2017 by Austin Aguayo MD at [facility] [place] AT [facility] Ankle L3 S 2 / NA Half Pin External Fixation [id number] [place] Coated Self Drilling Zackary Ref #5017-3-150s Right: Zackary 07/13/2022 5017-3-150S / Implanted: Qty: 1 on 11/29/2017 by Austin Aguayo MD at [facility] [place] AT [facility] NA / [id number] Half Pin External Fixation [id number] Luck [place] Coated Threaded Self Drilling [place] Ref#5018-5-150s Right: Zackary 04/12/2022 5018-5-150S / Implanted: Qty: 1 on 11/29/2017 by Austin Aguayo MD at [facility] [place] AT [facility] NA / [id number] Half Pin External Fixation [id number] [place] Coated Threaded Self Frilling [place] Ref#5017-3-150s Right: Zackary 07/13/2022 5017-3-150S / Implanted: Qty: 1 on 11/29/2017 by Austin Aguayo MD at [facility] [place] AT [facility] Foot NA / [id number] [place] External Fixation 1.5mm-2mm Medium 5 Hole [place] Ref#4933-1-002 Right : [place] 4933-1-002 / Implanted: Qty: 4 on 11/29/2017 by Austin Aguayo MD at [facility] Ankle L 2 S 2 / NA Wire Adapter External Fixation 1.5mm-2mm Tangela Long #4933-1-005 - Sl 2 S 2 Right: Zackary 11/27/2018 4933-1-005 / Implanted: Qty: 1 on 11/29/2017 by Austin Aguayo MD at [facility] Ankle L 2 S 2 / NA [place] External Fixation Long Carbon 40mml Threaded #4933-1-021 - Sl 2 S 2 Right: [place] 11/27/2018 4933-1-021 / Implanted: Qty: 1 on 11/29/2017 by Austin Aguayo MD at [facility] [place] AT [facility] Ankle L 2 S 2 / NA Strut External Fixation Mediium 138-201mml Telescope Blue Zackary Ref#4933-0- 140 Right: [place] 4933-0-140 / Implanted: Qty: 4 on 11/29/2017 by Austin Aguayo MD at [facility] Ankle L2 S 2 / NA Strut External Fixation Long 60mml Carbon #4933-1-560 - Sl 2 S 2 Right: Zackary 11/27/2018 4933-1-560 / Implanted: Qty: 3 on 11/29/2017 by Austin Aguayo MD at [facility] AT [facility] Ankle L 2 S 2 / NA documented as of this encounter Procedures Procedure Name Priority Date/Time Associated Diagnosis Comments ASSIGNMENT OF BENEFITS Routine 09/26/2018 11:55 AM CDT documented in this encounter Results Not on filedocumented in this encounter Insurance Payer Benefit Plan / Subscriber ID Effective Phone Address Type Group Dates [place] AARP MEDICARE [id number] 2018-Prese Medicare Adv HEALTHCARE - COMPLETE nt HMO MANAGED MEDICARE documented as of this encounter
--- OUTSIDE RECORDS SUMMARY | 2019-03-26 16:34 | XMS REPORT | Summary of Care ---
:1955 Author Organization [facility] Address [address] [place] [id number] Care Team Providers Name Role Phone Terell Mann Primary Care Provider Reason for Visit Reason Comments LAB WORK Auth/Cert Status Reason Specialty Diagnoses / Referred By Referred To Procedures Contact Contact Clinical Medical Diagnoses Acute hematogenous osteomyelitis of right foot [facility] Lab Laboratory Procedures BMP C REACTIVE PROTEIN SED RATE 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 [address] Allergies Active Allergy Reactions Severity Noted Date [...] Office Visit Infectious Disease Alfredo Cage MD [address] [place] [phone] Name Type Priority Associated Diagnoses Date/Time SEDIMENTATION RATE LAB Routine Acute hematogenous 09/26/2018 12:13 PM osteomyelitis of right CDT foot C-REACTIVE PROTEIN LAB Routine Acute hematogenous 09/26/2018 12:13 PM osteomyelitis of right CDT foot BASIC METABOLIC PANEL LAB Routine Acute hematogenous 09/26/2018 12:13 PM (NA, K, CL, CO2, GLUCOSE, osteomyelitis of [...] of this encounter Implants Implanted Type Area Stippler Device Shelf Model / Identifier Expiration Serial / Date Lot Wire [place] Offset Adapter Short [place] 4933-1-004 - Sl2 S 2 Adapter Right: [place] 11/27/2018 4933-1-004 / Implanted: Qty: 3 on 11/29/2017 by Austin Aguayo MD at [facility] [place] AT [facility] [place] Ankle L2 S 2 / NA End Cap, Zackary Protective For 5mm Pins Blue Pack Of 15 #5027-1-050 - Sna END CAP Right: Zackary 11/27/2018 5027-1-050 / Implanted: Qty: 1 on 11/29/2017 by Austin Aguayo MD at [facility] [place] AT [facility] NA / L2 S2 [place] Pin Adaptor, Short 6mm # 4933-1-020 - Sl2 S 2 PIN Right: [place] 4933-1-020 / Implanted: Qty: 3 on 11/29/2017 by Austin Aguayo MD at [facility] AT [facility] Ankle L2 S 2 / NA Screw, Fixos Headless Compression 7.0x80mm [place] #[id number] - Sl3 S 2 SCREW Right: Zackary 11/28/2018 [id number] / Implanted: Qty: 2 on 11/29/2017 by Austin Aguayo MD at [facility] AT [facility] Ankle L3 S 2 / NA Wire 2.0 With Nery [place] Zackary 4933-8-040 - Sna WIRE Right: STYKER 11/27/2018 4933-8-040 / Implanted: Qty: 2 on 11/29/2017 by Austin Aguayo MD at [facility] [place] AT [facility] [employer] NA / L 2 S 2 Half Pin Fixation 5mm X 150mml [place] Coated Zackary Ref#5017-8-150s Right : Zackary 04/12/2022 5017-8-150S / Implanted: Qty: 1 on 11/29/2017 by Austin Aguayo MD at [facility] SPECIALTY [facility] AT [facility] NA / [id number] Set Ring External Fixation Full 180mm Id Carbon Holex5 F/Foot & Ankle Fixation #4933-5-180 - Sl2s2 Right: [place] 11/27/2018 4933-5-180 / Implanted: Qty: 2 on 11/29/2017 by Austin Aguayo MD at [facility] [place] AT [facility] Ankle L2S2 / NA Ring External Fixation 180mm #4934-4-180 - Sl2 S 2 Right: Zackary 2018 4934-4-180 / Implanted: Qty: 1 on 11/29/2017 by Austin Aguayo MD at [facility] [place] AT [facility] Ankle L2 S 2 / NA Ring Foot Carbon Fiber Long 180mm X 210mm [place] Ref#4934-8-180 Right: [place] 11/27/2018 4934-8-180 / Implanted: Qty: 1 on 11/29/2017 by Austin Aguayo MD at [facility] [place] AT [facility] Ankle L2 S 2 / NA Nut External Fixation 6mm Tangela Short #4933-1-010 - Sl2 S 2 Right: Zackary 11/27/2018 4933-1-010 / Implanted: Qty: 24 on 11/29/2017 by Austin Aguayo MD at [facility] AT [facility] Ankle L2 S 2 / NA [place] External Fixation 6mm Tangela Carbon #4933-1-702 - Sl2 S 2 Right: [place] 11/27/2018 4933-1-702 / Implanted: Qty: 6 on 11/29/2017 by Austin Aguayo MD at [facility] [place] AT [facility] Ankle L2 S 2 / NA Screw, Fixos Headless Compression 7.0x75mm Zackary #[id number] - Sl3 S 2 Right: [place] 11/28/2018 [id number] / Implanted: Qty: 1 on 11/29/2017 by Austin Aguayo MD at [facility] [place] AT [facility] Ankle L3 S 2 / NA Screw, Fixos Headless Compression 7.7w607on [place] #326646 - Sl3 S 2 Right : [place] 11/28/2018 [id number] / Implanted: Qty: 1 on 11/29/2017 by Austin Aguayo MD at [facility] [place] AT [facility] Ankle L3 S 2 / NA Half Pin External Fixation [id number] [place] Coated Self Drilling Zackary Ref #5017-3-150s Right: [place] 07/13/2022 5017-3-150S / Implanted: Qty: 1 on 11/29/2017 by Austin Aguayo MD at [facility] [place] AT [facility] NA / [id number] Half Pin External Fixation [id number] [place] Coated Threaded Self Drilling [place] Ref#5018-5-150s Right: [place] 04/12/2022 5018-5-150S / Implanted: Qty: 1 on 11/29/2017 by Austin Aguayo MD at [facility] AT [facility] NA / [id number] Half Pin External Fixation [id number] [place] Coated Threaded Self Frilling Zackary Ref#5017-3-150s Right: Zackary 07/13/2022 5017-3-150S / Implanted: Qty: 1 on 11/29/2017 by Austin Aguayo MD at [facility] [place] AT [facility] Foot NA / [id number] [place] External Fixation 1.5mm-2mm Medium 5 Hole Zackary Ref#4933-1-002 Right : [place] 4933-1-002 / Implanted: Qty: 4 on 11/29/2017 by Austin Augayo MD at [facility] [place] AT [facility] Ankle L 2 S 2 / NA Wire Adapter External Fixation 1.5mm-2mm Tangela Long #4933-1-005 - Sl 2 S 2 Right: [place] 11/27/2018 4933-1-005 / Implanted: Qty: 1 on 11/29/2017 by Austin Aguayo MD at [facility] [place] AT [facility] Ankle L 2 S 2 / NA [place] External Fixation Long Carbon 40mml Threaded #4933-1-021 - Sl 2 S 2 Right: Zackary 11/27/2018 4933-1-021 / Implanted: Qty: 1 on 11/29/2017 by Austin Aguayo MD at [facility] [place] AT [facility] Ankle L 2 S 2 / NA Strut External Fixation Mediium 138-201mml Telescope Blue Zackary Ref#4933-0- 140 Right: Zackary 4933-0-140 / Implanted: Qty: 4 on 11/29/2017 by Autsin Aguayo MD at [facility] [place] AT [facility] Ankle L2 S 2 / NA Strut External Fixation Long 60mml Carbon #4933-1-560 - Sl 2 S 2 Right: Zackary 11/27/2018 4933-1-560 / Implanted: Qty: 3 on 11/29/2017 by Austin Aguayo MD at [facility] SPECIALTY [facility] AT [facility] Ankle L 2 S 2 / NA documented as of this encounter Results Not on filedocumented in this encounter Visit Diagnoses Diagnosis Acute hematogenous osteomyelitis of right foot documented in this encounter Insurance Payer Benefit Plan / Subscriber ID Effective Phone Address Type Group Dates [place] AARP MEDICARE [id number] 2018-Prese Medicare Adv HEALTHCARE - COMPLETE nt HMO MANAGED MEDICARE documented as of this encounter
--- OUTSIDE RECORDS SUMMARY | 2019-03-26 16:34 | XMS REPORT | Summary of Care ---
:1955 Author Organization [facility] - [address] [address] Care Team Providers Name Role Phone Terell Mann Primary Care Provider Reason for Visit Reason Comments Lab Results Encounter Details Date Type Department Care Team Description 09/26/2018 Telephone [facility] Infectious Alfredo Cage MD Lab Results Diseases- [address] [place] [address] [place] [phone] [place] [address] Allergies Active Allergy Reactions Severity [...] Take by mouth 0 Active as needed. proMETHazine 12.5 Take 1 tablet 20 tablet 0 08/27/2018 Active mg tablet by mouth every 4 (four) hours as needed for Nausea and Vomiting (N/V). sulfamethoxazole-tr Take 1 tablet 120 tablet 0 09/26/2018 Active imethoprim (BACTRIM by mouth 2 DS) 800-160 mg per (two) times tabletIndications: daily. Acute hematogenous osteomyelitis of right foot sulfamethoxazole-tr Take 2 tablets 120 tablet 0 09/12/2018 Discontinued imethoprim (BACTRIM by mouth 2 9 [...] Office Visit Infectious Disease Alfredo Cage MD [address] [place] [phone] Name Type Priority Associated Diagnoses Order Schedule SEDIMENTATION RATE LAB Routine Acute hematogenous 1 Occurrences starting osteomyelitis of right 09/26/2018 until foot 10/27/2018 C-REACTIVE PROTEIN LAB Routine Acute hematogenous 1 Occurrences starting osteomyelitis of right 09/26/2018 until foot 10/27/2018 BASIC METABOLIC PANEL LAB Routine Acute hematogenous 1 Occurrences starting (NA, K, CL, CO2, GLUCOSE, osteomyelitis of right 09/26/2018 until BUN, CREATININE, CA) foot 10/27/2018 Health Maintenance Due Date Last Done Comments [...] of this encounter Implants Implanted Type Area Calender Inspector Device Shelf Model / Identifier Expiration Serial / Date Lot Wire [place] Offset Adapter Short Zackary 4933-1-004 - Sl2 S 2 Adapter Right: Zackary 11/27/2018 4933-1-004 / Implanted: Qty: 3 on 11/29/2017 by Austin Aguayo MD at [facility] [place] AT [facility] [place] Ankle L2 S 2 / NA End Cap, Zackary Protective For 5mm Pins Blue Pack Of 15 #5027-1-050 - Sna END CAP Right: Zackary 11/27/2018 5027-1-050 / Implanted: Qty: 1 on 11/29/2017 by Austin Aguayo MD at [facility] [place] AT [facility] NA / L2 S2 [place] Pin Adaptor, Short 6mm # 4933-1-020 - Sl2 S 2 PIN Right: Zackary 4933-1-020 / Implanted: Qty: 3 on 11/29/2017 by Austin Aguayo MD at [facility] AT [facility] Ankle L2 S 2 / NA Screw, Fixos Headless Compression 7.0x80mm Zack[place] #088600 - Sl3 S 2 SCREW Right: [place] 11/28/2018 [id number] / Implanted: Qty: 2 on 11/29/2017 by Austin Aguayo MD at [facility] AT [facility] L3 S 2 / NA Wire 2.0 With Rafaela [place] Zackary 4933-8-040 - Sna WIRE Right: STYKER 11/27/2018 4933-8-040 / Implanted: Qty: 2 on 11/29/2017 by Austin Aguayo MD at [facility] [place] AT [facility] NA / L 2 S 2 Half Pin Fixation 5mm X 150mml [place] Davis Coated Zackary Ref#5017-8-150s Right : [place] 04/12/2022 5017-8-150S / Implanted: Qty: 1 on 11/29/2017 by Austin Aguayo MD at [facility] [place] AT [facility] NA / [id number] Set Ring External Fixation Full 180mm Id Carbon Holex5 F/Foot & Ankle Fixation #4933-5-180 - Sl2s2 Right: Zackary 11/27/2018 4933-5-180 / Implanted: Qty: 2 on 11/29/2017 by Austin Aguayo MD at [facility] [place] AT [facility] Ankle L2S2 / NA Ring External Fixation 180mm #4934-4-180 - Sl2 S 2 Right: Zackary 2018 4934-4-180 / Implanted: Qty: 1 on 11/29/2017 by Austin Augayo MD at [facility] [place] AT [facility] Ankle L2 S 2 / NA Ring Foot Carbon Fiber Long 180mm X 210mm [place] Ref#4934-8-180 Right: Zackary 11/27/2018 4934-8-180 / Implanted: Qty: 1 on 11/29/2017 by Austin Aguayo MD at [facility] SPECIALTY [facility] AT [facility] Ankle L2 S 2 / NA Nut External Fixation 6mm Tangela Short #4933-1-010 - Sl2 S 2 Right: Zackary 11/27/2018 4933-1-010 / Implanted: Qty: 24 on 11/29/2017 by Austin Aguayo MD at [facility] [place] AT [facility] Ankle L2 S 2 / NA [place] External Fixation 6mm Tangela Carbon #4933-1-702 - Sl2 S 2 Right: Zackary 11/27/2018 4933-1-702 / Implanted: Qty: 6 on 11/29/2017 by Austin Aguayo MD at [facility] [place] AT [facility] Ankle L2 S 2 / NA Screw, Fixos Headless Compression 7.0x75mm [place]ack[place] #[id number] - Sl3 S 2 Right: [place] 11/28/2018 [id number] / Implanted: Qty: 1 on 11/29/2017 by Austin Aguayo MD at [facility] [place] AT [facility] Ankle L3 S 2 / NA Screw, Fixos Headless Compression 7.8v733lj Zack[place] #799876 - Sl3 S 2 Right : Zackary 11/28/2018 789651 / Implanted: Qty: 1 on 11/29/2017 by Austin Aguayo MD at [facility] [place] AT [facility] Ankle L3 S 2 / NA Half Pin External Fixation [id number] [place] Davis Coated Self Drilling [place] Ref #5017-3-150s Right: [place] 07/13/2022 5017-3-150S / Implanted: Qty: 1 on 11/29/2017 by Austin Aguayo MD at [facility] [place] AT [facility] NA / [id number] Half Pin External Fixation [id number] [place] Davis Coated Threaded Self Drilling Zackary Ref#5018-5-150s Right: [place] 04/12/2022 5018-5-150S / Implanted: Qty: 1 on 11/29/2017 by Austin Aguayo MD at [facility] AT [facility] NA / [id number] Half Pin External Fixation [id number] [place] Davis Coated Threaded Self Frilling [place] Ref#5017-3-150s Right: Zackary 07/13/2022 5017-3-150S / Implanted: Qty: 1 on 11/29/2017 by Austin Aguayo MD at [facility] AT [facility] Foot NA / [id number] [place] External Fixation 1.5mm-2mm Medium 5 Hole [place] Ref#4933-1-002 Right : Zackary 4933-1-002 / Implanted: Qty: 4 on 11/29/2017 by Austin Aguayo MD at [facility] C[facility] [place] AT [facility] Ankle L 2 S 2 / NA Wire Adapter External Fixation 1.5mm-2mm Tangela Long #4933-1-005 - Sl 2 S 2 Right: [place] 11/27/2018 4933-1-005 / Implanted: Qty: 1 on 11/29/2017 by Austin Aguayo MD at [facility] SPECIALTY [facility] AT [facility] Ankle L 2 S 2 / NA [place] External Fixation Long Carbon 40mml Threaded #4933-1-021 - Sl 2 S 2 Right: Zackary 11/27/2018 4933-1-021 / Implanted: Qty: 1 on 11/29/2017 by Austin Aguayo MD at [facility] SPECIALTY [facility] AT [facility] Ankle L 2 S 2 / NA Strut External Fixation Mediium 138-201mml Telescope Blue [place] Ref#4933-0- 140 Right: Zackary 4933-0-140 / Implanted: Qty: 4 on 11/29/2017 by Austin Aguayo MD at [facility] [place] AT [facility] Ankle L2 S 2 / NA Strut External Fixation Long 60mml Carbon #4933-1-560 - Sl 2 S 2 Right: Zackary 11/27/2018 4933-1-560 / Implanted: Qty: 3 on 11/29/2017 by Austin Aguayo MD at [facility] [place] AT [facility] L 2 S 2 / NA documented as of this encounter Results Not on filedocumented in this encounter Visit Diagnoses Diagnosis Acute hematogenous osteomyelitis of right foot - Primary documented in this encounter Insurance Payer Benefit Plan / Subscriber ID Effective Phone Address Type Group Dates [place] AARP MEDICARE [id number] 2018-Prese Medicare Adv HEALTHCARE - COMPLETE nt O MANAGED MEDICARE documented as of this encounter
--- OUTSIDE RECORDS SUMMARY | 2019-03-26 16:34 | XMS REPORT | Summary of Care ---
:1955 Author Organization [facility] Address [address] [place] [address] Care Team Providers Name Role Phone Terell Mann Primary Care Provider Reason for Visit Reason Comments Follow-up Encounter Details Date Type Department Care Team Description 09/12/2018 Office Visit [facility] Ben Hernandez MD [address] [place] [address] Acute hematogenous Infectious Diseases- Alfredo Cage MD [address] [place] [address]. [place] [address] osteomyelitis of right [place] foot (Primary Dx) [facility] [address], [address] [place] [address] Allergies Active Allergy Reactions Severity [...] suspicious for abscess. 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: [employer] Social Needs Financial resource strain: Not hard [...] file Gets together: Not on file Attends evangelical service: Not on file Active member of [...] Office Visit Infectious Disease Alfredo Cage MD [address] [place] [phone] Name Type Priority Associated Diagnoses Order [...] this encounter Implants Implanted Type Area Senior Bookkeeper Device Shelf Model / Identifier Expiration Serial / Date Lot Wire Beacon Offset Adapter Short [place] 4933-1-004 - Sl2 S 2 Adapter Right: [place] 11/27/2018 4933-1-004 / Implanted: Qty: 3 on 11/29/2017 by Austin Aguayo MD at [facility] Beacon Ankle L2 S 2 / NA End Cap, Zackary Protective For 5mm Pins Blue Pack Of 15 #5027-1-050 - Sna END CAP Right: [place] 11/27/2018 5027-1-050 / Implanted: Qty: 1 on 11/29/2017 by Austin Aguayo MD at [facility] NA / L2 S2 Crown[place] Pin Adaptor, Short 6mm # 4933-1-020 - Sl2 S 2 PIN Right: Zackary 4933-1-020 / Implanted: Qty: 3 on 11/29/2017 by Austin Aguayo MD at [facility] Ankle L2 S 2 / NA Screw, Fixos Headless Compression 7.0x80mm [place] #[id number] - Sl3 S 2 SCREW Right: [place] 11/28/2018 [id number] / Implanted: Qty: 2 on 11/29/2017 by Austin Aguayo MD at [facility] Ankle L3 S 2 / NA Wire 2.0 With [place]ery [place] Zackary 4933-8-040 - Sna WIRE Right: STYKER 11/27/2018 4933-8-040 / Implanted: Qty: 2 on 11/29/2017 by Austin Aguayo MD at [facility] NA / L 2 S 2 Half Pin Fixation 5mm X 150mml Crownpoint Davis Coated Zackary Ref#5017-8-150s Right : [place] 04/12/2022 5017-8-150S / Implanted: Qty: 1 on 11/29/2017 by Austin Aguayo MD at [facility] NA / [id number] Set Ring External Fixation Full 180mm Id Carbon Holex5 F/Foot & Ankle Fixation #4933-5-180 - Sl2s2 Right: [place] 11/27/2018 4933-5-180 / Implanted: Qty: 2 on 11/29/2017 by Austin Aguayo MD at [facility] Ankle L2S2 / NA Ring External Fixation 180mm #4934-4-180 - Sl2 S 2 Right: [place] 2018 4934-4-180 / Implanted: Qty: 1 on 11/29/2017 by Austin Aguayo MD at [facility] Ankle L2 S 2 / NA Ring Foot Carbon Fiber Long 180mm X 210mm Zackary Ref#4934-8-180 Right: [place]ackary 11/27/2018 4934-8-180 / Implanted: Qty: 1 on 11/29/2017 by Austin Aguayo MD at [facility] Ankle L2 S 2 / NA Nut External Fixation 6mm Tangela Short #4933-1-010 - Sl2 S 2 Right: [place] 11/27/2018 4933-1-010 / Implanted: Qty: 24 on 11/29/2017 by Austin Aguayo MD at [facility] Ankle L2 S 2 / NA Beacon External Fixation 6mm Tangela Carbon #4933-1-702 - Sl2 S 2 Right: [place] 11/27/2018 4933-1-702 / Implanted: Qty: 6 on 11/29/2017 by Austin Aguayo MD at [facility] Ankle L2 S 2 / NA Screw, Fixos Headless Compression 7.0x75mm [place] #[id number] - Sl3 S 2 Right: [place] 11/28/2018 [id number] / Implanted: Qty: 1 on 11/29/2017 by Austin Aguayo MD at [facility] Ankle L3 S 2 / NA Screw, Fixos Headless Compression 7.0n548mn [place]ack[place] #045540 - Sl3 S 2 Right : Zackary 11/28/2018 [id number] / Implanted: Qty: 1 on 11/29/2017 by Austin Aguayo MD at [facility] Ankle L3 S 2 / NA Half Pin External Fixation [id number] Crownpoint Davis Coated Self Drilling Zackary Ref #5017-3-150s Right: [place] 07/13/2022 5017-3-150S / Implanted: Qty: 1 on 11/29/2017 by Austin Aguayo MD at [facility] NA / [id number] Half Pin External Fixation [id number] [place] Davis Coated Threaded Self Drilling Zackary Ref#5018-5-150s Right: [place] 04/12/2022 5018-5-150S / Implanted: Qty: 1 on 11/29/2017 by Austin Aguayo MD at [facility] NA / [id number] Half Pin External Fixation [id number] [place] Coated Threaded Self Frilling Zackary Ref#5017-3-150s Right: [place] 07/13/2022 5017-3-150S / Implanted: Qty: 1 on 11/29/2017 by Austin Aguayo MD at [facility] Foot NA / [id number] Beacon External Fixation 1.5mm-2mm Medium 5 Hole [place] Ref#4933-1-002 Right : Zackary 4933-1-002 / Implanted: Qty: 4 on 11/29/2017 by Austin Aguayo MD at [facility] Ankle L 2 S 2 / NA Wire Adapter External Fixation 1.5mm-2mm Tangela Long #4933-1-005 - Sl 2 S 2 Right: [place] 11/27/2018 4933-1-005 / Implanted: Qty: 1 on 11/29/2017 by Austin Aguayo MD at [facility] Ankle L 2 S 2 / NA Beacon External Fixation Long Carbon 40mml Threaded #4933-1-021 - Sl 2 S 2 Right: [place] 11/27/2018 4933-1-021 / Implanted: Qty: 1 on 11/29/2017 by Austin Aguayo MD at [facility] Ankle L 2 S 2 / NA Strut External Fixation Mediium 138-201mml Telescope Blue Zackary Ref#4933-0- 140 Right: [place] 4933-0-140 / Implanted: Qty: 4 on 11/29/2017 by Austin Aguayo MD at [facility] Ankle L2 S 2 / NA Strut External Fixation Long 60mml Carbon #4933-1-560 - Sl 2 S 2 Right: [place] 11/27/2018 4933-1-560 / Implanted: Qty: 3 on 11/29/2017 by Austin Aguayo MD at [facility] L 2 S 2 / NA [...] CDT) WBC 12.17 (H) 4.20 - 10.70 [facility] 10*3/L [facility] RBC 4.69 4.26 - 5.52 [facility] 10*6/L [facility] HGB 12.4 12.2 - 16.4 [facility] g/dL SERVICES HCT 40.5 38.4 - 49.3 % [facility] MCV 86.4 81.7 - 95.6 fL [facility] MCH 26.4 26.1 - 32.7 pg [facility] MCHC 30.6 (L) 31.2 - 35.0 [facility] g/dL SERVICES RDW-SD 55.4 (H) 38.5 - 51.6 fL [facility] RDW-CV 17.9 (H) 12.1 - 15.4 % [facility] PLT 559 (H) 150 - 328 [facility] 10*3/L SERVICES MPV 10.6 9.8 - 13.0 fL [facility] NRBC/100 WBC 0.0 0.0 - 10.0 /100 [facility] WBCs SERVICES NRBC x10^3 <0.01 10*3/L [facility] GRAN MAT (NEUT) % 49.5 % [facility] IMM GRAN % 0.70 % [facility] LYMPH % 36.9 % [facility] MONO % 9.7 % [facility] EOS % 2.5 % [facility] BASO % 0.7 % [facility] GRAN MAT x10^3(ANC) 6.03 1.99 - 6.95 [facility] 10*3/uL SERVICES IMM GRAN x10^3 0.09 (H) 0.00 - 0.06 [facility] 10*3/uL SERVICES LYMPH x10^3 4.49 (H) 1.09 - 3.23 [facility] 10*3/uL SERVICES MONO x10^3 1.18 (H) 0.36 - 1.02 [facility] 10*3/uL SERVICES EOS x10^3 0.30 0.06 - 0.53 [facility] 10*3/uL SERVICES BASO x10^3 0.08 0.01 - 0.09 [facility] 10*3/uL SERVICES Specimen Blood Performing Organization Address City/State/Zipcode Phone Number [facility] CLIA: [id number], [address] [place] [phone] [facility] BASIC METABOLIC PANEL (NA, K, CL, CO2, GLUCOSE, BUN, CREATININE, CA) (2018 12:27 PM CDT) NA 141 135 - 145 mmol/L [facility] K 4.9 3.5 - 5.0 mmol/L [facility] CL 104 98 - 108 mmol/L [facility] CO2 TOTAL 27 23 - 31 mmol/L [facility] AGAP 10 2 - 16 [facility] BUN 19 7 - 23 mg/dL [facility] GLUCOSE 93 70 - 110 mg/dL [facility] CREATININE 1.01 0.60 - 1.25 [facility] mg/dL SERVICES CALCIUM 9.5 8.6 - 10.6 mg/dL [facility] eGFR Calculation 74.4 mL/min/1.73m2 [facility] (Non-) SERVICES eGFR Calculation 90.1 mL/min/1.73m2 [facility] () SERVICES Specimen Blood Narrative Performed At Association of Glomerular Filtration Rate (GFR) and Staging [facility] of Kidney Disease* + + [...] abnormalities in imaging tests). Performing Organization Address [facility] Phone Number [facility] CLIA: [id number], [address] [place] [address] [facility] C-REACTIVE PROTEIN (09/12/2018 12:27 PM CDT) CRP 2.8 (H) <0.8 mg/dL [facility] Specimen Blood Performing Organization Address [facility] Phone Number [facility] CLIA: [id number], [address] [place] [address] [phone] [facility] SEDIMENTATION RATE (09/12/2018 12:27 PM CDT) ESR 65 (H) 0 - 10 mm/HR [facility] Specimen Blood Performing Organization Address [facility] Phone Number [facility] CLIA: [id number], [address] [place] [address] [phone] [facility] documented in this encounter Visit Diagnoses Diagnosis Acute hematogenous osteomyelitis of right foot - Primary documented in this encounter Insurance Payer Benefit Plan / Subscriber ID Effective Phone Address Type Group Dates [place] AARP MEDICARE [id number] 2018-Prese Medicare Adv HEALTHCARE - COMPLETE nt O MANAGED MEDICARE documented as of this encounter
--- OUTSIDE RECORDS SUMMARY | 2019-03-26 16:35 | XMS REPORT | Summary of Care ---
:1955 Author Organization [facility] Address [address] [place] [address] Care Team Providers Name Role Phone Terell Mann Primary Care Provider Reason for Visit Reason Comments LAB WORK Auth/Cert Status Reason Specialty Diagnoses / Referred By Referred To Procedures Contact Contact Clinical Medical Diagnoses Osteomyelitis of right foot, unspecified type Osteomyelitis of right foot, unspecified type [facility] Lab Laboratory Procedures BMP,C REACTIVE, SED RATE [address] [place] [address] Encounter Details Date Type Department Care Team Description 10/17/2018 General Office Assistant Visit [facility] Iveth Jiménez MD [address] [place] [address] Osteomyelitis of right Phlebotomy 1, [facility] Lab foot, unspecified type [facility] [address] [place] [address] Allergies Active Allergy Reactions Severity Noted Date Comments Hydrocodone-Acetaminophen Nausea and/or Vomiting Low 05/10/2011 documented as of this encounter (statuses as of 10/17/2018) Medications Medication Sig Dispensed Refills Start Date [...] as of this encounter (statuses as of 10/17/2018) Active Problems Problem Noted Date Septic arthritis [...] as of this encounter (statuses as of 10/17/2018) Social History Tobacco Use Types Packs/Day Years [...] Office Visit Infectious Disease Alfredo Cage MD [address] [place] [phone] Name Type Priority Associated Diagnoses Date/Time SEDIMENTATION RATE LAB Routine Osteomyelitis of right 10/17/2018 10:40 AM foot, unspecified type CDT C-REACTIVE PROTEIN LAB Routine Osteomyelitis of right 10/17/2018 10:40 AM foot, unspecified type CDT BASIC METABOLIC PANEL LAB Routine Osteomyelitis of right 10/17/2018 10:40 AM (NA, K, CL, CO2, GLUCOSE, foot, unspecified type CDT BUN, CREATININE, CA) Health Maintenance Due Date Last Done Comments HEPATITIS C (HCV) SCREEN 1955 PNEUMOCOCCAL 0-64 YEARS COMBINED 1960 SERIES (1 of 1 - PPSV23) EYE EXAM 1964 LDL-C 1964 URINE MICROALBUMIN 1964 FOOT EXAM 1972 DTaP,Tdap,and Td Vaccines (1 - 1973 Tdap) COLONOSCOPY 2004 Zoster Recombinant Vaccine 2004 (SHINGRIX) (1 of 2) INFLUENZA VACCINE (#1) 2018 HgA1C 01/29/2019 07/30/2018, 04/20/2018, 12/01/2017 CREATININE (SERUM) 10/04/2019 10/03/2018, 09/26/2018, 09/12/2018, Additional history exists documented as of this encounter Implants Implanted Type Area Welding Supervisor Device Shelf Model / Identifier Expiration Serial / Date Lot Wire [place] Offset Adapter Short Zackary 4933-1-004 - Sl2 S 2 Adapter Right: [place]ack[place] 11/27/2018 4933-1-004 / Implanted: Qty: 3 on 11/29/2017 by Austin Aguayo MD at [facility] [place] [facility] [place] Ankle L2 S 2 / NA End Cap, Zackary Protective For 5mm Pins Blue Pack Of 15 #5027-1-050 - Sna END CAP Right: [place]ack[place] 11/27/2018 5027-1-050 / Implanted: Qty: 1 on 11/29/2017 by Austin Aguayo MD at [facility] NA / L2 S2 [place] Pin Adaptor, Short 6mm # 4933-1-020 - Sl2 S 2 PIN Right: Zackary 4933-1-020 / Implanted: Qty: 3 on 11/29/2017 by Austin Aguayo MD at [facility] Ankle L2 S 2 / NA Screw, Fixos Headless Compression 7.0x80mm [place] #885476 - Sl3 S 2 SCREW Right: [place] 11/28/2018 [id number] / Implanted: Qty: 2 on 11/29/2017 by Austin Aguayo MD at [facility] L3 S 2 / NA Wire 2.0 With [place], [place] 4933-8-040 - Sna WIRE Right: STYKER 11/27/2018 4933-8-040 / Implanted: Qty: 2 on 11/29/2017 by Austin Aguayo MD at [facility] AT [facility] NA / L 2 S 2 Half Pin Fixation 5mm X 150mml [place] Davis Coated Zackary Ref#5017-8-150s Right : [place] 04/12/2022 5017-8-150S / Implanted: Qty: 1 on 11/29/2017 by Austin Aguayo MD at [facility] AT [facility] NA / [id number] Set Ring External Fixation Full 180mm Id Carbon Holex5 F/Foot & Ankle Fixation #4933-5-180 - Sl2s2 Right: [place] 11/27/2018 4933-5-180 / Implanted: Qty: 2 on 11/29/2017 by Austin Aguayo MD at [facility] [place] [facility] Ankle L2S2 / NA Ring External Fixation 180mm #4934-4-180 - Sl2 S 2 Right: Zackary 2018 4934-4-180 / Implanted: Qty: 1 on 11/29/2017 by Austin Aguayo MD at [facility] [place] [facility] Ankle L2 S 2 / NA Ring Foot Carbon Fiber Long 180mm X 210mm [place] Ref#4934-8-180 Right: Zackary 11/27/2018 4934-8-180 / Implanted: Qty: 1 on 11/29/2017 by Austin Aguayo MD at [facility] Ankle L2 S 2 / NA Nut External Fixation 6mm Tangela Short #4933-1-010 - Sl2 S 2 Right: [place] 11/27/2018 4933-1-010 / Implanted: Qty: 24 on 11/29/2017 by Austin Aguayo MD at [facility] Ankle L2 S 2 / NA [place] External Fixation 6mm Tangela Carbon #4933-1-702 - Sl2 S 2 Right: [place] 11/27/2018 4933-1-702 / Implanted: Qty: 6 on 11/29/2017 by Austin Aguayo MD at [facility] Ankle L2 S 2 / NA Screw, Fixos Headless Compression 7.0x75mm [place] #[id number] - Sl3 S 2 Right: Zackary 11/28/2018 465003 / Implanted: Qty: 1 on 11/29/2017 by Austin Aguayo MD at [facility] [place] [facility] Ankle L3 S 2 / NA Screw, Fixos Headless Compression 7.7x375ny [place] #[id number] - Sl3 S 2 Right : [place]ack[place] 11/28/2018 [id number] / Implanted: Qty: 1 on 11/29/2017 by Austin Aguayo MD at [facility] [place] [facility] Ankle L3 S 2 / NA Half Pin External Fixation [id number] [place] Davis Coated Self Drilling [place] Ref #5017-3-150s Right: [place] 07/13/2022 5017-3-150S / Implanted: Qty: 1 on 11/29/2017 by Austin Aguayo MD at [facility] [place] [facility] NA / [id number] Half Pin External Fixation [id number] [place] Coated Threaded Self Drilling Zackary Ref#5018-5-150s Right: [place] 04/12/2022 5018-5-150S / Implanted: Qty: 1 on 11/29/2017 by Austin Aguayo MD at [facility] [place] AT [facility] NA / [id number] Half Pin External Fixation [id number] [place] Coated Threaded Self Frilling Zackary Ref#5017-3-150s Right: [place] 07/13/2022 5017-3-150S / Implanted: Qty: 1 on 11/29/2017 by Austin Aguayo MD at [facility] [place] AT [facility] Foot NA / [id number] [place] External Fixation 1.5mm-2mm Medium 5 Hole [place] Ref#4933-1-002 Right : Zackary 4933-1-002 / Implanted: Qty: 4 on 11/29/2017 by Austin Aguayo MD at [facility] [place] [facility] Ankle L 2 S 2 / NA Wire Adapter External Fixation 1.5mm-2mm Tangela Long #4933-1-005 - Sl 2 S 2 Right: [place] 11/27/2018 4933-1-005 / Implanted: Qty: 1 on 11/29/2017 by Austin Aguayo MD at [facility] [place] [facility] Ankle L 2 S 2 / NA [place] External Fixation Long Carbon 40mml Threaded #4933-1-021 - Sl 2 S 2 Right: [place] 11/27/2018 4933-1-021 / Implanted: Qty: 1 on 11/29/2017 by Austin Aguayo MD at [facility] [place] AT [facility] Ankle L 2 S 2 / NA Strut External Fixation Mediium 138-201mml Telescope Blue [place] Ref#4933-0- 140 Right: [place]ack[place] 4933-0-140 / Implanted: Qty: 4 on 11/29/2017 by Austin Aguayo MD at [facility] [place] [facility] Ankle L2 S 2 / NA Strut External Fixation Long 60mml Carbon #4933-1-560 - Sl 2 S 2 Right: [place] 11/27/2018 4933-1-560 / Implanted: Qty: 3 on 11/29/2017 by Austin Aguayo MD at [facility] [place] [facility] Ankle L 2 S 2 / NA documented as of this encounter Results Not on filedocumented in this encounter Visit Diagnoses Diagnosis Osteomyelitis of right foot, unspecified type documented in this encounter Insurance Payer Benefit Plan / Subscriber ID Effective Phone Address Type Group Dates [place] AARP MEDICARE [id number] 2018-Prese Medicare Adv HEALTHCARE - COMPLETE nt HMO MANAGED MEDICARE documented as of this encounter
--- OUTSIDE RECORDS SUMMARY | 2019-03-26 16:35 | XMS REPORT | Summary of Care ---
:1955 Author Organization [facility] - [facility] Address [address] [place] [id number] Care Team Providers Name Role Phone MannTerell robbins Primary Care Provider Reason for Visit Reason Comments Follow-up Acute Hematogenous osteomyelitis of the right foot. Encounter Details Date Type Department Care Team Description 10/03/2018 Office Visit [facility] Ben Hernandez MD [address] [place] [address] [id number] Osteomyelitis, Infectious Diseases- Alfredo Cage MD [address] [place] [address]. [place] [address] unspecified [facility], [place] unspecified type [facility] Clinics (Primary Dx) [address] [place] [address] Allergies Active Allergy Reactions Severity [...] suspicious for abscess. He was admitted at [facility], I&D of R foot collection was negative [...] not had fall. 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 Other problems: #DM with peripheral [...] Office Visit Infectious Disease Alfredo Cage MD [address] [place] [address]. [place] [address] Health Maintenance Due Date Last [...] of this encounter Implants Implanted Type Area Multifocal Button Generator Device Shelf Model / Identifier Expiration Serial / Date Lot Wire [place] Offset Adapter Short [place] 4933-1-004 - Sl2 S 2 Adapter Right: [place] 11/27/2018 4933-1-004 / Implanted: Qty: 3 on 11/29/2017 by Austin Aguayo MD at [facility] [place] [facility] [place] Ankle L2 S 2 / NA End Cap, Zackary Protective For 5mm Pins Blue Pack Of 15 #5027-1-050 - Sna END CAP Right: [place] 11/27/2018 5027-1-050 / Implanted: Qty: 1 on 11/29/2017 by Austin Aguayo MD at [facility] NA / L2 S2 Ledger Pin Adaptor, Short 6mm # 4933-1-020 - Sl2 S 2 PIN Right: [place] 4933-1-020 / Implanted: Qty: 3 on 11/29/2017 by Austin Aguayo MD at [facility] L2 S 2 / NA Screw, Fixos Headless Compression 7.0x80mm [place] #[id number] - Sl3 S 2 SCREW Right: [place] 11/28/2018 [id number] / Implanted: Qty: 2 on 11/29/2017 by Austin Aguayo MD at [facility] L3 S 2 / NA Wire 2.0 With Nery [place] Zackary 4933-8-040 - Sna WIRE Right: STYKER 11/27/2018 4933-8-040 / Implanted: Qty: 2 on 11/29/2017 by Autsin Aguayo MD at [facility] NA / L 2 S 2 Half Pin Fixation 5mm X 150mml Ledger Davis Coated Zackary Ref#5017-8-150s Right : Zackary 04/12/2022 5017-8-150S / Implanted: Qty: 1 on 11/29/2017 by Austin Aguayo MD at [facility] NA / [id number] Set Ring External Fixation Full 180mm Id Carbon Holex5 F/Foot & Ankle Fixation #4933-5-180 - Sl2s2 Right: Zackary 11/27/2018 4933-5-180 / Implanted: Qty: 2 on 11/29/2017 by Austin Aguayo MD at [facility] [place] [facility] Ankle L2S2 / NA Ring External Fixation 180mm #4934-4-180 - Sl2 S 2 Right: Zackary 2018 4934-4-180 / Implanted: Qty: 1 on 11/29/2017 by Austin Aguayo MD at [facility] [place] Ankle L2 S 2 / NA Ring Foot Carbon Fiber Long 180mm X 210mm Zackary Ref#4934-8-180 Right: [place] 11/27/2018 4934-8-180 / Implanted: Qty: 1 on 11/29/2017 by Austin Aguayo MD at [facility] Ankle L2 S 2 / NA Nut External Fixation 6mm Tangela Short #4933-1-010 - Sl2 S 2 Right: [place] 11/27/2018 4933-1-010 / Implanted: Qty: 24 on 11/29/2017 by Austin Aguayo MD at [facility] Ankle L2 S 2 / NA [place] External Fixation 6mm Tangela Carbon #4933-1-702 - Sl2 S 2 Right: Zackary 11/27/2018 4933-1-702 / Implanted: Qty: 6 on 11/29/2017 by Austin Aguayo MD at [facility] Ankle L2 S 2 / NA Screw, Fixos Headless Compression 7.0x75mm Zackary #[id number] - Sl3 S 2 Right: Zackary 11/28/2018 [id number] / Implanted: Qty: 1 on 11/29/2017 by Austin Aguayo MD at [facility] [place] Ankle L3 S 2 / NA Screw, Fixos Headless Compression 7.8g932or [place] #[id number] - Sl3 S 2 Right : Zackary 11/28/2018 [id number] / Implanted: Qty: 1 on 11/29/2017 by Austin Aguayo MD at [facility] [place] Ankle L3 S 2 / NA Half Pin External Fixation [id number] Ledger Davis Coated Self Drilling [place] Ref #[id number] Right: [place] 07/13/2022 [id number] / Implanted: Qty: 1 on 11/29/2017 by Austin Aguayo MD at [facility] [place] [facility] NA / [id number] Half Pin External Fixation [id number] Ledger Davis Coated Threaded Self Drilling Zackary Ref#5018-5-150s Right: Zackary 04/12/2022 5018-5-150S / Implanted: Qty: 1 on 11/29/2017 by Austin Aguayo MD at [facility] NA / [id number] Half Pin External Fixation [id number] Ledger Davis Coated Threaded Self Frilling [place] Ref#5017-3-150s Right: [place] 07/13/2022 5017-3-150S / Implanted: Qty: 1 on 11/29/2017 by Austin Aguayo MD at [facility] [place] [facility] Foot NA / [id number] [place] External Fixation 1.5mm-2mm Medium 5 Hole [place] Ref#4933-1-002 Right : [place] 4933-1-002 / Implanted: Qty: 4 on 11/29/2017 by Austin Aguayo MD at [facility] Ankle L 2 S 2 / NA Wire Adapter External Fixation 1.5mm-2mm Tangela Long #4933-1-005 - Sl 2 S 2 Right: [place] 11/27/2018 4933-1-005 / Implanted: Qty: 1 on 11/29/2017 by Austin Aguayo MD at [facility] Ankle L 2 S 2 / NA [place] External Fixation Long Carbon 40mml Threaded #4933-1-021 - Sl 2 S 2 Right: Zackary 11/27/2018 4933-1-021 / Implanted: Qty: 1 on 11/29/2017 by Austin Aguayo MD at [facility] [place] [facility] Ankle L 2 S 2 / NA Strut External Fixation Mediium 138-201mml Telescope Blue Zackary Ref#4933-0- 140 Right: Zackary 4933-0-140 / Implanted: Qty: 4 on 11/29/2017 by Austin Aguayo MD at [facility] [place] [facility] Ankle L2 S 2 / NA Strut External Fixation Long 60mml Carbon #4933-1-560 - Sl 2 S 2 Right: Zacakry 11/27/2018 4933-1-560 / Implanted: Qty: 3 on 11/29/2017 by Austin Aguayo MD at [facility] [place] [facility] Ankle L 2 S 2 / NA documented as of this encounter Results Not on filedocumented in this encounter Visit Diagnoses Diagnosis Osteomyelitis, unspecified site, unspecified type - Primary documented in this encounter Insurance Payer Benefit Plan / Subscriber ID Effective Phone Address Type Group Dates [place] [employer]ARP MEDICARE [id number] 2018-Prese Medicare Adv HEALTHCARE - COMPLETE [facility] documented as of this encounter
[2019-03-26 17:39] LABS: Absolute Lymphocytes (CBC) 2.3 K/uL (0.7-4.9); Basophils % 0.9 % (0-1.3); Hematocrit 41.7 % (39.6-49.0); Lymphocytes % 18.4 % (15.3-44.8); MPV 9.5 fL (7.6-11.3); RBC Red Blood Cell Count 4.97 M/uL (4.33-5.43)
[2019-03-26] MEDS ORDERED: ONDANSETRON 4 MG/2 ML VIAL ONE (17:44)
[2019-03-26] MEDS ORDERED: NA CHLORIDE 0.9% 1,000 ML ONE (17:44)
[2019-03-26] MEDS ORDERED: MORPHINE 4 MG/ML SYR ONE (17:44)
[2019-03-26 17:56] LABS: Bilirubin Direct 0.2 mg/dL (0-0.2); Bilirubin Total 0.4 mg/dL (0.2-1.0); Potassium 4.8 mmol/L (3.5-5.1); Protein, Total 8.2 g/dL (6.4-8.2)
[2019-03-26 18:10] LABS: Urine Bacteria 20-50 /HPF (NONE SEEN); Urine Culture Reflex Order REFLEXED; Urine RBC LOADED /HPF (NONE SEEN)
[2019-03-26 18:33] LABS: Urine Blood 3+ (NEG); Urine Glucose NEGATIVE (NEG); Urine Protein 3+ (NEG); Urine Specific Gravity 1.025 (1.005-1.030)
--- NOTE | 2019-03-26 18:56 | RAD REPORT ---
EXAM DESCRIPTION: CT - Abdomen Pelvis W Contrast - 03/26/2019 6:35 pm CLINICAL HISTORY: Abdominal pain inability to void COMPARISON: 2015 TECHNIQUE: Computed axial tomography of the abdomen pelvis was obtained. 100 cc Isovue-300 was admin istered intravenously. Oral contrast was not requested which limits evaluation of bowel. All CT scans are performed using dose optimization technique as appropriate and may include automated exposure control or mA/KV adjustment according to patient size. FINDINGS: The liver, adrenal and kidneys appear unremarkable. Splenectomy Partial pancreatic resection There is no evidence of diverticulitis. Normal appendix A Bhardwaj catheter within the bladder. Penile pump in place. Small inguinal hernias contain fat IMPRESSION: No acute abnormality is displayed.
[2019-03-26] MEDS ORDERED: CEFTRIAXONE/SWI 1gm 1 GM/10 ML SYR ONE (19:17)
--- NOTE | 2019-03-26 19:51 | ER ---
Nurse's Notes [facility] Name: Pedro Estrella Age: 63 yrs Sex: Male : 1955 Arrival Date: 03/26/2019 Time: 16:32 Bed 16 Private MD: Diagnosis: Urinary tract infection, site not specified Presentation: 03/26 16:36 Presenting complaint: Patient states: Inability to void x 4 hours. Transition of care: jl7 patient was not received from another setting of care. Onset of symptoms was March 26, 2019 at 12:00. Risk Assessment: Do you want to hurt yourself or someone else? Patient reports no desire to harm self or others. Initial Sepsis Screen: Does the patient meet any 2 criteria? No. Patient's initial sepsis screen is negative. Does the patient have a suspected source of infection? No. Patient's initial sepsis screen is negative. Care prior to arrival: None. 16:36 Method Of Arrival: Wheelchair [facility] 16:36 Acuity: JANIYA 3 jl7 Triage Assessment: 16:38 General: Appears in no apparent distress. uncomfortable, Behavior is cooperative, jl7 anxious. Pain: Complains of pain in pelvis Pain currently is 6 out of 10 on a pain scale. Historical: - Allergies: 16:38 No Known Allergies; jl7 - PMHx: 16:38 Diabetes - NIDDM; Hypertension; jl7 - PSHx: 16:38 Cholecystectomy; bladder cancer; pancrease half gone; open heart sx -no blood thinner; jl7 - Immunization history:: Adult Immunizations unknown. - Coronavirus screen:: The patient has NOT traveled to [place] in the past 14 days. Proceed with normal triage process as indicated. - Social history:: Smoking status: Patient denies any tobacco usage or history of. - Ebola Screening: : No symptoms or risks identified at this time. Screenin:00 Abuse screen: Denies threats or abuse. Denies injuries from another. Nutritional ca1 screening: No deficits noted. Tuberculosis screening: No symptoms or risk factors identified. Fall Risk IV access (20 points). Ambulatory Aid- Crutches/Cane/Walker (15 pts). Gait- Impaired (20 pts.). Total Reid Fall Scale indicates High Risk Score (45 or more points). Fall prevention measures have been instituted. Side Rails Up X 2 Family Present and informed to notify staff if the need to leave the bedside As available patient and family educated on Fall Prevention Program and Strategies. Assessment: 17:00 General: Appears in no apparent distress. uncomfortable, Behavior is calm, cooperative, ca1 appropriate for age. Pain: Complains of pain in suprapubic area Pain does not radiate. Pain currently is 6 out of 10 on a pain scale. Quality of pain is described as burning, aching, Pain began this morning. Neuro: Level of Consciousness is awake, alert, obeys commands, Oriented to person, place, time, situation, Appropriate for age. Cardiovascular: Heart tones S1 S2 present Capillary refill < 3 seconds Patient's skin is warm and dry. Respiratory: Airway is patent Respiratory effort is even, unlabored, Respiratory pattern is regular, symmetrical, Breath sounds are clear bilaterally. GI: Abdomen is round non-distended, Bowel sounds present X 4 quads. Abd is soft and non tender X 4 quads. : Urine is cloudy. : Reports urgency, difficulty in starting to urinate since last night. Pt states, "I have a prostate problem and it is hard to start urinating". EENT: No deficits noted. No signs and/or symptoms were reported regarding the EENT system. Derm: Skin is intact, is healthy with good turgor, Skin is pink, warm \\T\\ dry. Musculoskeletal: Circulation, motion, and sensation intact. Capillary refill < 3 seconds, Pt has an external fixator on the R leg. 17:55 Reassessment: Patient appears in no apparent distress at this time. Patient and/or ca1 family updated on plan of care and expected duration. Pain level reassessed. Patient is alert, oriented x 3, equal unlabored respirations, skin warm/dry/pink. General: Appears in no apparent distress. comfortable, Behavior is calm, cooperative, appropriate for age. 19:10 Reassessment: Patient appears in no apparent distress at this time. Patient and/or jb4 family updated on plan of care and expected duration. Pain level reassessed. Patient is alert, oriented x 3, equal unlabored respirations, skin warm/dry/pink. 20:37 Reassessment: Patient appears in no apparent distress at this time. Patient and/or jb4 family updated on plan of care and expected duration. Pain level reassessed. Patient is alert, oriented x 3, equal unlabored respirations, skin warm/dry/pink. Vital Signs: 16:38 BP 110 / 64; Pulse 96; Resp 17; Temp 98.3; Pulse Ox 97% ; Weight 118.84 kg; Height 6 jl7 ft. 3 in. (190.50 cm); Pain 6/10; 17:42 BP 142 / 72; Pulse 70; Resp 16 S; Pulse Ox 96% on R/A; ca1 19:13 BP 143 / 69; Pulse 83; Resp 16; Pulse Ox 97% on R/A; jb4 20:00 BP 163 / 79; Pulse 79; Resp 16; Pulse Ox 96% on R/A; jb4 16:38 Body Mass Index 32.75 (118.84 kg, 190.50 cm) jl7 ED Course: 16:32 Patient arrived in ED. as 16:37 Triage completed. jl7 16:38 Arm band placed on right wrist. jl7 16:40 Marcos Anguiano NP is PHCP. pm1 16:40 Marvel Singleton MD is Attending Physician. pm1 17:00 Patient has correct armband on for positive identification. Bed in low position. Call ca1 light in reach. Side rails up X 1. Pulse ox on. NIBP on. Warm blanket given. 17:25 Bhardwaj cath inserted, using sterile technique, 16 Fr., by ma, balloon inflated, to ca1 gravity drainage, urine specimen collected. returned cloudy urine. Patient tolerated well. 17:25 Urine collected: Bhardwaj catheter specimen, cloudy, Amount Returned: 30mL. ca1 17:35 Radiology exam delayed due to lab results not completed at this time. (BUN/Creatinine). vm2 17:35 No provider procedures requiring assistance completed. Initial lab(s) drawn, by ma, ca1 sent to lab. Inserted saline lock: 20 gauge in left forearm, using aseptic technique. Blood collected. 17:46 Chloé Vaca RN is Primary Nurse. ca1 20:40 Primary Nurse role handed off by Chloé Vaca RN jb4 20:40 Gavin Fitzgerald, RN is Primary Nurse. jb4 20:40 IV discontinued, intact, bleeding controlled, No redness/swelling at site. Pressure jb4 dressing applied. Administered Medications: 17:40 Drug: NS 0.9% 1000 ml Route: IV; Rate: 1000 ml; Site: left forearm; ca1 18:40 Follow up: Response: No adverse reaction; IV Status: Completed infusion ca1 17:41 Drug: Zofran 4 mg Route: IVP; Site: left forearm; ca1 18:40 Follow up: Response: No adverse reaction; Nausea is decreased ca1 17:45 Drug: morphine 4 mg {Note: RASS - 0.} Route: IVP; Site: left forearm; ca1 18:40 Follow up: Response: No adverse reaction; Pain is decreased; RASS: Alert and Calm (0) ca1 19:17 Drug: Rocephin 1 grams Route: IV; Rate: calculated rate; Site: left forearm; jb4 19:45 Follow up: Response: No adverse reaction; IV Status: Completed infusion ca1 Outcome: 19:51 Discharge ordered by MD. pm1 20:37 Discharged to home via wheelchair, with family. jb4 20:37 Condition: stable 20:37 Discharge instructions given to patient, family, Instructed on discharge instructions, follow up and referral plans. medication usage, Demonstrated understanding of instructions, follow-up care, medications, Prescriptions given X 2. 20:40 Patient left the ED. jb4 Addendum: 03/29/2019 12:12 Addendum: Culture Results: Positive urine culture. Bacteria is resistant to, has s g intermediate sensitivity, or is not tested against prescribed antibiotics. Report given to WANDER for further evaluation and then to senior front end engineer for follow up with patient. Prescription called-in to pharmacy of choice. to [facility] in [place] for Augmentin 875 mg PO bid FOR 7 DAYS DISPENSE 14 Tabs per [facility]. 12:14 Addendum:. s g Signatures: David Wiseman, RN RN Melony Kevin Patrick, [employer] SET UP OPERATOR pm1 Gavin Fitzgerald RN RN jb4 Idalia Boyce RN RN jl7 [facility] Chloé Vaca RN RN ca1
--- NOTE | 2019-03-26 19:51 | EDPHYS ---
Physician Documentation [facility] Name: Pedro Estrella Age: 63 yrs Sex: Male : 1955 Arrival Date: 03/26/2019 Time: 16:32 Bed 16 Private MD: ED Physician Marvel Singleton HPI: 03/26 16:49 This 63 yrs old Male presents to ER via Wheelchair with complaints of Urinary pm1 Retention. 16:49 The patient presents with urinary symptoms, unable to void, for the past 4 hours. pm1 Patient attempted to self cath at home without any urine output. patient has history of prostate cancer 7 years ago that is in remission. Has not used a Bhardwaj catheter since then. Onset: The symptoms/episode began/occurred 4 hour(s) ago. Modifying factors: The symptoms are alleviated by nothing, the symptoms are aggravated by inability to urinate. Associated signs and symptoms: Pertinent positives: abdominal pain, Pertinent negatives: fever, nausea, vomiting. Severity of symptoms: in the emergency department the symptoms are actually worse. The patient has not recently seen a physician. Historical: - Allergies: 16:38 No Known Allergies; jl7 - PMHx: 16:38 Diabetes - NIDDM; Hypertension; jl7 - PSHx: 16:38 Cholecystectomy; bladder cancer; pancrease half gone; open heart sx -no blood thinner; jl7 - Immunization history:: Adult Immunizations unknown. - Coronavirus screen:: The patient has NOT traveled to [place] in the past 14 days. Proceed with normal triage process as indicated. - Social history:: Smoking status: Patient denies any tobacco usage or history of. - Ebola Screening: : No symptoms or risks identified at this time. ROS: 16:49 Constitutional: Negative for fever, chills, and weight loss, Eyes: Negative for injury, pm1 pain, redness, and discharge, ENT: Negative for injury, pain, and discharge, Neck: Negative for injury, pain, and swelling, Cardiovascular: Negative for chest pain, palpitations, and edema, Respiratory: Negative for shortness of breath, cough, wheezing, and pleuritic chest pain. 16:49 Back: Negative for injury and pain. 16:49 MS/Extremity: Negative for injury and deformity, Skin: Negative for injury, rash, and discoloration, Neuro: Negative for headache, weakness, numbness, tingling, and seizure. 16:49 Abdomen/GI: Positive for abdominal pain, of the suprapubic area, Negative for nausea, vomiting, and diarrhea. 16:49 : Positive for difficulty urinating, Negative for flank pain, penile pain, testicular pain Exam: 16:49 Constitutional: This is a well developed, well nourished patient who is awake, alert, pm1 and in no acute distress. Head/Face: Normocephalic, atraumatic. Chest/axilla: Normal chest wall appearance and motion. Nontender with no deformity. No lesions are appreciated. Cardiovascular: Regular rate and rhythm with a normal S1 and S2. No gallops, murmurs, or rubs. Normal PMI, no JVD. No pulse deficits. Respiratory: Lungs have equal breath sounds bilaterally, clear to auscultation and percussion. No rales, rhonchi or wheezes noted. No increased work of breathing, no retractions or nasal flaring. Abdomen/GI: Soft, non-tender, with normal bowel sounds. No distension or tympany. No guarding or rebound. No evidence of tenderness throughout. Back: No spinal tenderness. No costovertebral tenderness. Full range of motion. Skin: Warm, dry with normal turgor. Normal color with no rashes, no lesions, and no evidence of cellulitis. MS/ Extremity: Pulses equal, no cyanosis. Neurovascular intact. Full, normal range of motion. 16:49 Neuro: Orientation: is normal, Motor: is normal, moves all fours. Vital Signs: 16:38 BP 110 / 64; Pulse 96; Resp 17; Temp 98.3; Pulse Ox 97% ; Weight 118.84 kg; Height 6 jl7 ft. 3 in. (190.50 cm); Pain 6/10; 17:42 BP 142 / 72; Pulse 70; Resp 16 S; Pulse Ox 96% on R/A; ca1 19:13 BP 143 / 69; Pulse 83; Resp 16; Pulse Ox 97% on R/A; jb4 20:00 BP 163 / 79; Pulse 79; Resp 16; Pulse Ox 96% on R/A; jb4 16:38 Body Mass Index 32.75 (118.84 kg, 190.50 cm) 7 MDM: 16:40 Patient medically screened. pm1 17:00 ED course: Patient insists on Bhardwaj catheter even though I told him that only 80 mL of pm1 urine is in the bladder. 19:43 Data reviewed: vital signs. Data interpreted: Pulse oximetry: on room air is 97 %. pm1 Interpretation: normal. Counseling: I had a detailed discussion with the patient and/or guardian regarding: the historical points, exam findings, and any diagnostic results supporting the discharge/admit diagnosis, lab results, radiology results, the need for outpatient follow up, to return to the emergency department if symptoms worsen or persist or if there are any questions or concerns that arise at home. 03/26 16:58 Order name: Basic Metabolic Panel pm1 03/26 16:58 Order name: CBC with Diff pm1 03/26 16:58 Order name: Creatinine for Radiology pm1 03/26 16:58 Order name: Hepatic Function pm1 03/26 16:58 Order name: Lipase 1 03/26 17:33 Order name: Urine Microscopic Only 1 03/26 17:42 Order name: CBC with Automated Diff; Complete Time: 17:51 EDMS 03/26 17:56 Order name: Creatinine (Radiology Only); Complete Time: 18:57 EDMS 03/26 17:57 Order name: Basic Metabolic Panel; Complete Time: 18:57 EDMS 03/26 17:57 Order name: Liver (Hepatic) Function; Complete Time: 18:57 EDMS 03/26 17:57 Order name: Lipase; Complete Time: 18:57 EDMS 03/26 18:13 Order name: Urine Microscopic Only; Complete Time: 18:57 EDMS 03/26 18:15 Order name: Urine Dipstick--Ancillary (enter results) 03/26 18:35 Order name: Urine Dipstick-Ancillary; Complete Time: 18:57 EDMS 03/26 16:44 Order name: Bladder Scanner; Complete Time: 17:48 pm1 03/26 16:44 Order name: Bhardwaj; Complete Time: 17:48 pm1 03/26 16:44 Order name: Urine Dipstick-Ancillary (obtain specimen); Complete Time: 17:48 pm1 03/26 16:58 Order name: IV Saline Lock; Complete Time: 17:48 pm1 03/26 16:58 Order name: Labs collected and sent; Complete Time: 17:48 pm1 03/26 16:58 Order name: CT Abd/Pelvis - IV Contrast Only pm1 03/26 19:04 Order name: CT; Complete Time: 19:42 EDMS Administered Medications: 17:40 Drug: NS 0.9% 1000 ml Route: IV; Rate: 1000 ml; Site: left forearm; ca1 18:40 Follow up: Response: No adverse reaction; IV Status: Completed infusion ca1 17:41 Drug: Zofran 4 mg Route: IVP; Site: left forearm; ca1 18:40 Follow up: Response: No adverse reaction; Nausea is decreased ca1 17:45 Drug: morphine 4 mg {Note: RASS - 0.} Route: IVP; Site: left forearm; ca1 18:40 Follow up: Response: No adverse reaction; Pain is decreased; RASS: Alert and Calm (0) ca1 19:17 Drug: Rocephin 1 grams Route: IV; Rate: calculated rate; Site: left forearm; jb4 19:45 Follow up: Response: No adverse reaction; IV Status: Completed infusion ca1 Disposition: 03/26/19 19:51 Discharged to Home. Impression: Urinary tract infection, site not specified. - Condition is Stable. - Discharge Instructions: Urinary Tract Infection, Adult. - Prescriptions for Tylenol- Codeine #3 300-30 mg Oral Tablet - take 2 tablets by ORAL route every 6 hours As needed; 20 tablet. Bactrim DS 800- 160 mg Oral Tablet - take 1 tablet by ORAL route every 12 hours for 10 days; 20 tablet. - Medication Reconciliation Form, Thank You Letter, Antibiotic Education, Prescription Opioid Use form. - Follow up: Emergency Department; When: As needed; Reason: Worsening of condition. Follow up: Private Physician; When: 2 - 3 days; Reason: Recheck today's complaints, Continuance of care, Re-evaluation by your physician. - Problem is new. - Symptoms have improved. Addendum: 03/28/2019 07:59 Co-signature as Attending Physician, Marvel Singleton MD I agree with the assessment and c guo plan of care. Signatures: Dispatcher [employer] EDMS Marvel Singleton MD MD cha Marinas, Patrick, GENERAL PASSENGER AGENT GENERAL PASSENGER AGENT pm1 Gavin Fitzgerald, RN RN jb4 Idalia Boyce RN RN jl7 Chloé Vaca RN RN ca1 Corrections: (The following items were deleted from the chart) 03/26 20:40 19:51 03/26/2019 19:51 Discharged to Home. Impression: Urinary tract infection, site jb4 not specified. Condition is Stable. Forms are Medication Reconciliation Form, Thank You Letter, Antibiotic Education, Prescription Opioid Use. Follow up: Emergency Department; When: As needed; Reason: Worsening of condition. Follow up: Private Physician; When: 2 - 3 days; Reason: Recheck today's complaints, Continuance of care, Re-evaluation by your physician. Problem is new. Symptoms have improved. pm1
[2019-03-28 10:50] VITALS: TEMP 98.3
[2019-03-28 10:54] VITALS: BP 163/79; O2SAT 96
== END 2019-03-26 20:40 | disposition home or self-care (01) ==
LOC: ER 16:31
DX: N39.0 Urinary tract infection, site not specified (principal); I10 Essential (primary) hypertension; Z85.51 Personal history of malignant neoplasm of bladder
CPT/HCPCS: 96365; 96361; 87088; 85025; 87086; 80048; 36415; 80076; 87077; 87186; 83690; 74177; 51702; 96375; 99284; Q9967; J0696; J7030; J2405; 81003; 81015

== ENCOUNTER 2020-02-20 18:25 | Emergency (ER) | payer MEDICARE ==
--- OUTSIDE RECORDS SUMMARY | 2020-02-20 18:27 | XMS REPORT | Clinical Summary ---
:1955 Author Organization [facility] Address [address] [place] [address] Care Team Providers Name Role Phone Wally Mark NP Primary Care Provider Allergies No Known Allergies Medications Medication Sig Dispensed Refills Start Date End Date Status citalopram (CELEXA) 40 Take 40 mg by 0 Active MG tablet mouth daily. lisinopril Take 40 mg by 0 Activ e (PRINIVIL,ZESTRIL) 40 mouth daily. MG tablet omeprazole (PRILOSEC) Take 40 mg by 0 Active 40 MG capsule mouth daily. aspirin 81 MG EC tablet Take 81 mg by 0 Active mouth daily. promethazine Take 25 mg by 0 Act deyvi (PHENERGAN) 25 MG mouth every 6 tablet (six) hours as needed. liraglutide (VICTOZA Inject 0 Active 2-OLENA) 0.6 mg/0.1 mL subcutaneously. (18 mg/3 mL) PnIj Active Problems Problem Noted Date Erectile dysfunction 06/25/2013 Encounters Date Type Specialty Care Team Description 02/20/2020 Telephone Hepatology Elvia Feliciano MD Appointm ent after 02/19/2019 Social History Tobacco Use Types Packs/Day Years Used Date Never Smoker Alcohol Use Drinks/Week oz/Week Comments No Sex Assigned at Date Recorded Not on file Last Filed Vital Signs Not on file Plan of Treatment Date Type Specialty Care Team Description 02/24/2020 Office Visit Hepatology Dylan Geiger MD [address] [facility] [address] [place], [place] [address] [phone] Implants Implanted Type Area Creel Hand Device Shelf Model / Identifier Expiration Serial / Lot Date Kit,Accessory Product Line 700 Ams - [id number] Urology N/A: [employer] 04/24/2018 [id number] / Implanted: Qty: 1 on 06/25/2013 by Royer Taylor MD at [facility] [employer] / [id number] [place],Conceal Low Profile W/Inhibizone 100ml - [id number] Urol ogy N/A: COSTA RICAN 04/24/2015 [id number] / Implanted: Qty: 1 on 06/25/2013 by Royer Taylor MD at [facility] Abdomen [employer] / [id number] Penile Pros,Cxr Preconn Ms Ps W/Inhibizone 14cm - [id number] Urolo gy N/A: Penis [employer]STA [employer]ICAN 03/15/2014 [id number] / Implanted: Qty: 1 on 06/25/2013 by Royer Taylor MD at [facility] [employer] / [id number] Kit,Cxr Rear Tip Junior Accounting Clerk Non-Stack - [id number] Urology N/A: Penis [employer]STA RICAN 01/22/2018 [id number] / Implanted: Qty: 1 on 06/25/2013 by Royer Taylor MD at [facility] MEDICAL SYSTEMS / [id number] Results Not on fileafter 02/19/2019 Insurance Payer Benefit Plan / Subscriber ID Effective Dates Phone Addre ss Type Group MEDICARE MEDICARE A B [id number] 2013-Presen Medicare t OTHER-[employer] GENERIC [id number] 2007-Present L COMMERCIAL [facility]/TENAHA [id number] 2013-Present Medigap SUPPLEMENT/[employer]
--- OUTSIDE RECORDS SUMMARY | 2020-02-20 18:27 | XMS REPORT | Continuity of Care Document ---
:1955 Author Organization [facility] t Address [address] [place] [address] Care Team Providers Name Role Phone Wally Mark NP Primary Care Physician Braden DEE Attending Clinician Payers Payer Name Policy Type Policy Effective Date Expiration Date Sour ce Number MEDICAREMEDICARE A [id number] 2013 KORINA [place] [id number] 2012- 00:00:00 - Medical [facility] OTHER-COMMERCIALGENERI [id number] [facility] C 00:00:00 - Medical [id number]// nter 2007-Present [facility] [id number] 2013 KORINA Del Cid SUPPLEMENT/INDIVIDUALA 00:00:00 - Medical SAILAJA/[facility] [id number] /02/2013-PresentMedigap Problems Condition Condition Condition Status Onset Resolution Last Treating Co mments Source Name Details Category Date Date Treatment Clinician Date Erectile Erectile Disease Active KORINA thomas dysfunctio dysfunctio 06-25 Nadya kes - n n 00:00: Medical 00 Center Allergies, Adverse Reactions, Alerts Allergy Allergy Status Severity Reaction(s) Onset Inactive Treating Comm ents Source Name Type Date Date Clinician [place] Adverse Active n/v KORINA Bentley Reaction [facility] Social History Social Habit Start Date Stop Date Quantity Comments Source Sex Assigned At [facility] Alcohol intake 2013-11-28 2013-11-28 Current [facility] - 00:00:00 00:00:00 non-drinker of Medical Ce nter alcohol (finding) Smoking Status Start Date Stop Date Source Never smoker [facility] Medications Ordered Filled Start Stop Current Ordering Indication Dosage Frequency Signature Comments Components Source Medication Medication Date Date Medication? Clinician (SIG) Name Name citalopram Yes 40mg QD Take [address] (CELEXA) 40 5-14 by mouth [facility] - MG tablet 15:18: daily. Medica l [facility] lisinopril Yes 40mg QD Take [address] (PRINIVIL,Z 5-14 by mouth [facility] - ESTRIL) 40 15:18: daily. Medic al MG tablet 55 [facility] omeprazole Yes 40mg QD Take [address] (PRILOSEC) 5-14 by mouth [facility] - 40 MG 15:18: daily. Medical capsule [facility] aspirin 81 Yes 81mg QD Take [address] MG EC 5-14 by mouth [facility] - tablet 15:18: daily. Medical [facility] promethazin Yes 25mg Take [address] [facility] 5-14 by mouth [facility] - (PHENERGAN) 15:18: every 6 Med ical 25 MG 55 (six) Center tablet hours as needed. liraglutide Yes Inject [facility] (VICTOZA 5-14 subcutaneo [facility] - 2-OLENA) 0.6 15:18: usly. Medica l mg/0.1 mL 55 Center (18 mg/3 mL) PnIj Citalopram Citalopram Yes Hayden [address] [facility] Hydrobromid Hydrobromid [facility] Procedures This patient has no known procedures. Encounters Start End Encounter Admission Attending Care Care Encounter Source Date/Time Date/Time Type Type Clinicians Facility Department ID 2020-02-18 2020-02-18 Outpatient [facility] [id number] [facility] 2020-01-22 2020-01-22 Outpatient [facility] [id number] [facility] 2019-11-21 2019-11-21 Out[facility] [id number] [facility] 2019-11-06 2019-11-06 [facility] [id number] 2019-11-06 2019-11-06 [facility] [id number] [facility] 2019-10-03 2019-10-03 [facility] [id number]04[facility] 2019-06-20 2019-06-20 [facility] [id number] [facility] Results This patient has no known results.
[2020-02-20] MEDS ORDERED: NA CHLORIDE 0.9% 1,000 ML ONE (21:58)
[2020-02-20 22:00] LABS: Absolute Lymphocytes (CBC) 7.3 K/uL (0.7-4.9); Basophils % 0.7 % (0-1.3); Hematocrit 46.2 % (39.6-49.0); Lymphocytes % 52.1 % (15.3-44.8); RBC Red Blood Cell Count 5.24 M/uL (4.33-5.43)
[2020-02-20 22:21] LABS: Albumin 2.3 g/dL (3.4-5.0); Bilirubin Direct 4.1 mg/dL (0-0.2); Bilirubin Total 4.7 mg/dL (0.2-1.0); Potassium 4.5 mmol/L (3.5-5.1)
[2020-02-20] MEDS ORDERED: NA CHLORIDE 0.9% 2,000 ML ONE (22:27)
[2020-02-20] MEDS ORDERED: ONDANSETRON 4 MG/2 ML VIAL ONE (23:08)
[2020-02-20 23:16] LABS: Platelet Estimate INCR; Platelets, Giant SEEN
[2020-02-20 23:17] LABS: Blood Morphology Comment NOTED (NOT SEEN); Hypochromasia 1+; Target Cells 1+
--- NOTE | 2020-02-21 01:29 | ER ---
Nurse's Notes [facility] Name: Pedro Estrella Age: 64 yrs Sex: Male : 1955 Arrival Date: 02/20/2020 Time: 18:27 Bed 17 Private MD: Diagnosis: Other and unspecified cirrhosis of liver;Unspecified jaundice;Diabetes mellitus due to underlying condition Presentation: 02/19 18:49 Chief complaint: Patient states: PCP, Dr. Schmidt, called pt to come to the ED for em elevated LFT's and WBC's, denies fever or pain, reports nausea. Coronavirus screen: Client denies travel out of the [place] in the last 14 days. Ebola Screen: Patient negative for fever greater than or equal to 101.5 degrees Fahrenheit, and additional compatible Ebola Virus Disease symptoms Patient denies exposure to infectious person. Patient denies travel to an Ebola-affected area in the 21 days before illness onset. No symptoms or risks identified at this time. Initial Sepsis Screen: Does the patient meet any 2 criteria? HR > 90 bpm. No. Patient's initial sepsis screen is negative. Does the patient have a suspected source of infection? No. Patient's initial sepsis screen is negative. Risk Assessment: Do you want to hurt yourself or someone else? Patient reports no desire to harm self or others. Onset of symptoms was February 20, 2020. 18:49 Method Of Arrival: Wheelchair em 18:49 Acuity: JANIYA 3 em Historical: - Allergies: 18:52 hydrocodone; em - PMHx: 18:52 Diabetes - NIDDM; Hypertension; em - PSHx: 18:52 bladder cancer; open heart sx -no blood thinner; Cholecystectomy; pancrease half gone; em spleen; - Immunization history:: Adult Immunizations up to date. - Social history:: Smoking status: Patient denies any tobacco usage or history of. Screenin:00 Abuse screen: Denies threats or abuse. Denies injuries from another. Nutritional wh screening: No deficits noted. Tuberculosis screening: No symptoms or risk factors identified. Fall Risk None identified. Assessment: 21:00 General: Appears in no apparent distress. Behavior is calm, cooperative, appropriate wh for age. Pain: Denies pain. Neuro: Level of Consciousness is awake, alert, obeys commands, Oriented to person, place, time, situation, Appropriate for age. Cardiovascular: Capillary refill < 3 seconds. Respiratory: Airway is patent Respiratory effort is even, unlabored, Respiratory pattern is regular, symmetrical. GI: Abdomen is flat, non-distended. : No signs and/or symptoms were reported regarding the genitourinary system. EENT: No signs and/or symptoms were reported regarding the EENT system. Derm: Skin is intact, is healthy with good turgor, Skin is pink, warm \T\ dry. normal. Musculoskeletal: Circulation, motion, and sensation intact. 22:30 Reassessment: Patient appears in no apparent distress at this time. No changes from previously documented assessment. Patient and/or family updated on plan of care and expected duration. Pain level reassessed. Patient is alert, oriented x 3, equal unlabored respirations, skin warm/dry/pink. 02/20 00:00 Reassessment: Patient appears in no apparent distress at this time. Patient and/or family updated on plan of care and expected duration. Pain level reassessed. Patient is alert, oriented x 3, equal unlabored respirations, skin warm/dry/pink. 01:45 Reassessment: Patient appears in no apparent distress at this time. Patient and/or family updated on plan of care and expected duration. Pain level reassessed. Patient is alert, oriented x 3, equal unlabored respirations, skin warm/dry/pink. PRovider at bedside explaining POC need for admit. 02:30 Reassessment: MD at bedside explained POC Pt will now be discharged. Vital Signs: 02/19 18:49 BP 121 / 62; Pulse 98; Resp 18; Temp 98.4; Pulse Ox 100% on R/A; Weight 108.86 kg; em Height 6 ft. 3 in. (190.50 cm); Pain 0/10; 22:00 BP 151 / 86; Pulse 79; Resp 18; Pulse Ox 97% on R/A; 23:30 BP 153 / 83; Pulse 75; Resp 18; Pulse Ox 98% on R/A; 02/20 01:00 BP 133 / 74; Pulse 85; Resp 18; Pulse Ox 97% on R/A; 02:15 BP 149 / 68; Pulse 76; Resp 18; Pulse Ox 96% on R/A; 02/19 18:49 Body Mass Index 30.00 (108.86 kg, 190.50 cm) em ED Course: 02/19 18:27 Patient arrived in ED. rg4 18:51 Triage completed. em 18:52 Arm band placed on. em 20:57 Marvin Sherman MD is Attending Physician. pkl 21:00 Patient has correct armband on for positive identification. Bed in low position. Call light in reach. Side rails up X 1. Pulse ox on. NIBP on. 21:13 Dafne Delgado is Primary Nurse. wh 21:15 Inserted saline lock: 20 gauge in left forearm, using aseptic technique. Blood wh collected. 22:08 XRAY CXR (1 view) In Process Unspecified. EDMS 01 00:37 CT Abd/Pelvis - IV Contrast Only In Process Unspecified. EDMS 00:37 CT Chest For PE Angio In Process Unspecified. EDMS 00:38 CT Soft Tissue Neck W/contr In Process Unspecified. EDMS 01:28 Jose M Barrera DO is Hospitalizing Provider. pkl 03:02 No provider procedures requiring assistance completed. IV discontinued, intact, wh bleeding controlled, No redness/swelling at site. Administered Medications: Discontinued: NS 0.9% 1000 ml IV at 125 ml/hr continuous 02/19 21:46 Drug: NS 0.9% 1000 ml Route: IV; Rate: 125 ml/hr; Site: left forearm; 02/20 02:20 Follow up: Response: No adverse reaction; IV Status: Order to discontinue infusion 02/19 22:15 Drug: NS 0.9% (30 ml/kg) 30 ml/kg Route: IV; Rate: bolus; Site: left forearm; 02/20 02:19 Follow up: Response: No adverse reaction; IV Status: Completed infusion 02/19 22:58 Drug: Zofran (Ondansetron) 4 mg Route: IVP; Site: left forearm; 02/20 02:19 Follow up: Response: No adverse reaction; Nausea is decreased Outcome: 01:29 Decision to Hospitalize by Provider. pkl 02:41 Discharge ordered by . la1 03:02 Discharged to home ambulatory. 03:02 Condition: stable 03:02 Discharge instructions given to patient, Instructed on discharge instructions, follow up and referral plans. POC Demonstrated understanding of instructions, follow-up care, POC 03:08 Patient left the ED. wh Signatures: Dispatcher [employer] Marvin Rodriguez MD MD pkl Munoz, Edgar, RN RN Ivan Carrero, SHANK SCOURER-C SHANK SCOURER-Cla1 Renetta Velasquez4 Dafne Delgado Corrections: (The following items were deleted from the chart) 02:17 02:15 Reassessment: Patient appears in no apparent distress at this time. Patient wh and/or family updated on plan of care and expected duration. Pain level reassessed. Patient is alert, oriented x 3, equal unlabored respirations, skin warm/dry/pink. PRovider at bedside explaining POC need for admit wh
--- NOTE | 2020-02-21 01:29 | EDPHYS ---
Physician Documentation [facility] Name: Pedro Estrella Age: 64 yrs Sex: Male : 1955 Arrival Date: 02/20/2020 Time: 18:27 Bed 17 Private MD: ED Physician Marvin Sherman HPI: 02/19 21:13 This 64 yrs old Male presents to ER via Wheelchair with complaints of pkl Abnormal Lab Results. 21:13 Told by PCP ( Dr. Schmidt ) to go to ED for elevated LFT and WBC. Patient also complained pkl of sore throat for over 2 months. Historical: - Allergies: 18:52 hydrocodone; em - PMHx: 18:52 Diabetes - NIDDM; Hypertension; em - PSHx: 18:52 bladder cancer; open heart sx -no blood thinner; Cholecystectomy; pancrease half gone; em spleen; - Immunization history:: Adult Immunizations up to date. - Social history:: Smoking status: Patient denies any tobacco usage or history of. ROS: 21:13 Eyes: Positive for icterus. pkl 21:13 ENT: Positive for sore throat. 21:13 Neck: Negative for pain with movement, stiffness. 21:13 Cardiovascular: Negative for chest pain. 21:13 Respiratory: Negative for cough, shortness of breath. 21:13 Abdomen/GI: Positive for nausea, Negative for abdominal pain. 21:13 Back: Negative for acute changes. 21:13 : Negative for urinary symptoms. 21:13 MS/extremity: Negative for acute changes. 21:13 Skin: Positive for jaundice. 21:13 Neuro: Negative for altered mental status, loss of consciousness. 02/20 01:30 Cardiovascular: Negative for chest pain, palpitations, and edema. pkl Exam: 02/19 21:13 Head/Face: Normocephalic, atraumatic. pkl Eyes: jaundice. ENT: Posterior pharynx: erythema, that is mild. Neck: Exam negative for nuchal rigidity. Chest/axilla: Exam negative for acute changes. Cardiovascular: Exam negative for acute changes. Respiratory: Exam negative for chest pain, shortness of breath, the patient does not display signs of respiratory distress, Respirations: normal, Breath sounds: are clear throughout. Abdomen/GI: Bowel sounds: normal, Palpation: abdomen is soft and non-tender, in all quadrants. Back: Exam negative for acute changes. : Exam negative for acute changes. Musculoskeletal/extremity: Exam is negative for acute changes. Skin: Appearance: Color: jaundiced. Neuro: Orientation: is normal, Mentation: is normal, Cranial nerves: grossly normal, Motor: is normal. Vital Signs: 18:49 BP 121 / 62; Pulse 98; Resp 18; Temp 98.4; Pulse Ox 100% on R/A; Weight 108.86 kg; em Height 6 ft. 3 in. (190.50 cm); Pain 0/10; 22:00 BP 151 / 86; Pulse 79; Resp 18; Pulse Ox 97% on R/A; wh 23:30 BP 153 / 83; Pulse 75; Resp 18; Pulse Ox 98% on R/A; wh 02/20 01:00 BP 133 / 74; Pulse 85; Resp 18; Pulse Ox 97% on R/A; wh 02:15 BP 149 / 68; Pulse 76; Resp 18; Pulse Ox 96% on R/A; wh 02/19 18:49 Body Mass Index 30.00 (108.86 kg, 190.50 cm) em MDM: 02/19 20:57 Patient medically screened. pkl 02/20 01:27 Data reviewed: vital signs, nurses notes, lab test result(s), radiologic studies, CT pkl scan, plain films. ED course: Talked to Ivan Leon, for observation ( Dr. Barrera ). 02:33 ED course: I was consulted for admission for jaundice, elev. liver function. I examined la1 patient who did appear to have jaundice that was reported to have been going on for about a week. Patient denies any other symptoms aside from nausea. Abdomen is soft and non-tender, no ascites noted. Ct shows heterogenicity of the liver suggestive of cirrhosis or hepatitis. Patient has also had ulrasound of the liver 2 days ago which was negative. Patient has apt with zinc plate cutter on Monday. Offered patient admission for hydration or potentially transfer for GI evaluation but he declined stating he is comfortable going home. Patient lives at home with and daughter who will keep a close eye on him, pt given strict return precautions for fever, any abd pain, SOB, altered mentation. Patient verbalized understanding. Patient also made aware of mediastinal lymph node and thyroid nodule. Case was discussed with hospitalist attending. No GI available for education program associate at this facility. pt appears well, non-toxic. agrees to return for any new or worsening symptoms. will dc to keep apt with hepatology on Monday. . 02/19 21:12 Order name: Basic Metabolic Panel pkl 02/19 21:12 Order name: CBC with Diff; Complete Time: 23:53 pkl 02/19 21:12 Order name: Hepatic Function; Complete Time: 22:28 pkl 02/19 21:12 Order name: Lipase; Complete Time: 22:28 pkl 02/19 21:12 Order name: Strep; Complete Time: 22:59 pkl 02/19 21:12 Order name: Blood Culture Adult (2) pkl 02/19 21:12 Order name: Lactate; Complete Time: 22:28 pkl 02/19 21:12 Order name: Procalcitonin; Complete Time: 22:59 pkl 02/19 21:13 Order name: Basic Metabolic Panel; Complete Time: 22:28 EDMS 02/19 21:23 Order name: D-Dimer; Complete Time: 22:28 pkl 02/19 22:05 Order name: Manual Differential; Complete Time: 23:53 EDMS 02/19 22:32 Order name: Throat Culture EDMS 02/20 00:57 Order name: Lactate Sepsis 2 HR Follow-up; Complete Time: 01:20 EDMS 02/19 21:12 Order name: IV Saline Lock; Complete Time: 21:46 pkl 02/19 21:12 Order name: Labs collected and sent; Complete Time: 21:46 pkl 02/19 21:23 Order name: XRAY CXR (1 view); Complete Time: 18:28 pkl 02/19 23:02 Order name: CT Abd/Pelvis - IV Contrast Only; Complete Time: 18:28 pkl 02/19 23:05 Order name: CT Chest For PE Angio; Complete Time: 18:28 pkl 02/19 23:05 Order name: CT Soft Tissue Neck W/contr; Complete Time: 18:28 pkl 02/20 02:20 Order name: COVID-19 wh Administered Medications: Discontinued: NS 0.9% 1000 ml IV at 125 ml/hr continuous 02/19 21:46 Drug: NS 0.9% 1000 ml Route: IV; Rate: 125 ml/hr; Site: left forearm; wh 02/20 02:20 Follow up: Response: No adverse reaction; IV Status: Order to discontinue infusion 02/19 22:15 Drug: NS 0.9% (30 ml/kg) 30 ml/kg Route: IV; Rate: bolus; Site: left forearm; 02/20 02:19 Follow up: Response: No adverse reaction; IV Status: Completed infusion 02/19 22:58 Drug: Zofran (Ondansetron) 4 mg Route: IVP; Site: left forearm; 02/20 02:19 Follow up: Response: No adverse reaction; Nausea is decreased Disposition: 02/21/20 02:41 Discharged to Home. Impression: Other and unspecified cirrhosis of liver, Unspecified jaundice, Diabetes mellitus due to underlying condition. - Condition is Stable. - Medication Reconciliation Form, Thank You Letter, Antibiotic Education, Prescription Opioid Use form. - Follow up: Private Physician; When: 2 - 3 days; Reason: Further diagnostic work-up, Continuance of care. Follow up: Emergency Department; When: As needed; Reason: Fever > 102 F, Trouble breathing, Worsening of condition. Addendum: 02/24/2020 19:04 Co-signature as Attending Physician, Marvin Sherman MD. p kl Signatures: Dispatcher [employer] [facility] Marvin Sherman MD MD pkl Munoz, Edgar, RN Bassam Bassett MD MD rn Attema, Lee, CHIEF SAFETY OFFICER-C CHIEF SAFETY OFFICER-Cla1 Dafne Delgado Corrections: (The following items were deleted from the chart) 02/19 21:14 21:13 CREATININE, SERUM+C.LAB.BRZ ordered. [facility] 02/20 02:39 01:29 Hospitalization Ordered by Jose M Barrera DO for Observation. Preliminary la1 diagnosis is jaundice. Elevated liver functions. Possible sepsis. Bed requested for Telemetry/MedSurg (observation). Status is Observation. Condition is Stable. Problem is new. Symptoms are unchanged. pkl 03:08 02:41 02/21/2020 02:41 Discharged to Home. Impression: Other and unspecified cirrhosis wh of liver; Unspecified jaundice; Diabetes mellitus due to underlying condition. Condition is Stable. Forms are Medication Reconciliation Form, Thank You Letter, Antibiotic Education, Prescription Opioid Use. Follow up: Private Physician; When: 2 - 3 days; Reason: Further diagnostic work-up, Continuance of care. Follow up: Emergency Department; When: As needed; Reason: Fever > 102 F, Trouble breathing, Worsening of condition. la1
--- NOTE | 2020-02-21 08:37 | RAD REPORT ---
EXAM DESCRIPTION: RAD - Chest Single View - 02/20/2020 10:08 pm CLINICAL HISTORY: elevated LFT and WBC Chest pain. COMPARISON: Chest Single View dated 10/15/2015; Chest For Pe Angio dated 02/20/2020 FINDINGS: Portable technique limits examination quality. The lungs are grossly clear. The heart is moderately enlarged in size. Sternotomy wires present. IMPRESSION: No acute intrathoracic process suspected.
--- NOTE | 2020-02-21 10:11 | RAD REPORT ---
EXAM DESCRIPTION: Abdomen Pelvis W Contrast CLINICAL HISTORY: Elevated LFT COMPARISON: None Available. TECHNIQUE: CTA of the chest obtained following IV administration of iodinated contrast. 3-D/MIP refo rmatted images available. CT of the abdomen and pelvis was then performed in the portal venous phase. CTA of the neck soft tissues obtained without contrast. FINDINGS: Soft tissue neck: visualized intraorbital contents are unremarkable. No abnormalities of the buccal space or bowling alley refinisher space. The tongue base is symmetric. Parotid and s ubmandibular glands are unremarkable. No abnormalities of the parapharyngeal space, pharyngeal mucosa l space, retropharyngeal space. Normal epiglottis. Atherosclerotic calcification of the carotid arter ies. 3.2 cm right thyroid nodule. Paranasal sinuses and mastoid air cells are well aerated. Degenerative change of the visualized cervical spine. No gross abnormalities of visualized intracranial contents. Chest: Pulmonary arteries: Contrast bolus is inadequate for evaluation of pulmonary embolus. No definite elvia tral filling defects. Great Vessels: Great vessels have normal anatomic configuration. Thoracic Aorta: Atherosclerotic calcification of a normal caliber thoracic aorta. No evidence of diss ection. Heart: Coronary artery atherosclerosis. No cardiomegaly or significant pericardial effusion. Prior me melvi sternotomy. Lymph Nodes: Scattered mildly prominent multilevel mediastinal lymph nodes. A customer operations representative lymph no de is seen in the AP window measuring 1.3 x 2.2 cm. Esophagus: No abnormalities of the esophagus identified. Other: No additional findings. Lungs: No confluent airspace consolidation. Significant respiratory motion artifact. Pleura: No pleural effusion or pneumothorax. Trachea/Airways: No abnormalities of the visualized trachea or airways. Abdomen: Liver: Heterogeneity of the liver parenchyma. No intrahepatic or extrahepatic biliary dilatation. Gallbladder: Prior cholecystectomy. Spleen, Pancreas, and Adrenal Glands: Prior splenectomy. Prior distal pancreatectomy. The residual pancreas is unremarkable. The adrenal glands are unremarkable. Kidneys: The kidneys have normal size without evidence of solid mass or hydronephrosis. Vasculature: Aortoiliac atherosclerosis. IVC is unremarkable. The portal vein is patent. The proxim al visceral and renal arteries are patent. Stomach: The stomach and duodenum have normal course. Other: No free intraperitoneal air. No free fluid or lymphadenopathy. Pelvis: Bladder: Urinary bladder is unremarkable. Bowel: No dilated loops of large or small bowel. Appendix: Normal appendix. Pelvis: Penile prosthesis and left pelvic reservoir. Prostate is not enlarged. Bones: Mild degenerative endplate spondylosis throughout the spine. Degenerative change of the hips. IMPRESSION: 1. No definite central pulmonary embolus. Suboptimal contrast bolus timing. 2. Heterogeneity of the liver parenchyma may be related to cirrhotic or hepatitis. 3. Coronary artery atherosclerosis. 4. Mildly prominent mediastinal lymph node indeterminate etiology. These may be reactive. Follow-up C T of the chest in 3-6 months recommended to confirm stability or resolution. 5. 3.2 cm incidental right thyroid nodule. Recommend thyroid US. Reference: J Am Idania Radiol. 2015 Mar;12(2): 143-50 This exam was performed according to our departmental dose-optimization program, which includes autom ated exposure control, adjustment of the mA and/or kV according to patient size and/or use of iterati ve reconstruction technique. Electronically signed by: Gwyn Yan 02/21/2020 1:01 AM INTERN RETAIL Due to temporary technical issues with the PACS/Fluency reporting system, reports are being signed by the in house radiologist without review as a courtesy to ensure prompt reporting. The interpreting r adiologist is fully responsible for the content of the report.
--- NOTE | 2020-02-21 10:19 | RAD REPORT ---
EXAM DESCRIPTION: Chest For Pe Angio CLINICAL HISTORY: Elevated LFT COMPARISON: None Available. TECHNIQUE: CTA of the chest obtained following IV administration of iodinated contrast. 3-D/MIP refo rmatted images available. CT of the abdomen and pelvis was then performed in the portal venous phase. CTA of the neck soft tissues obtained without contrast. FINDINGS: Soft tissue neck: visualized intraorbital contents are unremarkable. No abnormalities of the buccal space or osteologist space. The tongue base is symmetric. Parotid and s ubmandibular glands are unremarkable. No abnormalities of the parapharyngeal space, pharyngeal mucosa l space, retropharyngeal space. Normal epiglottis. Atherosclerotic calcification of the carotid arter ies. 3.2 cm right thyroid nodule. Paranasal sinuses and mastoid air cells are well aerated. Degenerative change of the visualized cervical spine. No gross abnormalities of visualized intracranial contents. Chest: Pulmonary arteries: Contrast bolus is inadequate for evaluation of pulmonary embolus. No definite elvia tral filling defects. Great Vessels: Great vessels have normal anatomic configuration. Thoracic Aorta: Atherosclerotic calcification of a normal caliber thoracic aorta. No evidence of diss ection. Heart: Coronary artery atherosclerosis. No cardiomegaly or significant pericardial effusion. Prior me melvi sternotomy. Lymph Nodes: Scattered mildly prominent multilevel mediastinal lymph nodes. A commissary representative lymph no de is seen in the AP window measuring 1.3 x 2.2 cm. Esophagus: No abnormalities of the esophagus identified. Other: No additional findings. Lungs: No confluent airspace consolidation. Significant respiratory motion artifact. Pleura: No pleural effusion or pneumothorax. Trachea/Airways: No abnormalities of the visualized trachea or airways. Abdomen: Liver: Heterogeneity of the liver parenchyma. No intrahepatic or extrahepatic biliary dilatation. Gallbladder: Prior cholecystectomy. Spleen, Pancreas, and Adrenal Glands: Prior splenectomy. Prior distal pancreatectomy. The residual pancreas is unremarkable. The adrenal glands are unremarkable. Kidneys: The kidneys have normal size without evidence of solid mass or hydronephrosis. Vasculature: Aortoiliac atherosclerosis. IVC is unremarkable. The portal vein is patent. The proxim al visceral and renal arteries are patent. Stomach: The stomach and duodenum have normal course. Other: No free intraperitoneal air. No free fluid or lymphadenopathy. Pelvis: Bladder: Urinary bladder is unremarkable. Bowel: No dilated loops of large or small bowel. Appendix: Normal appendix. Pelvis: Penile prosthesis and left pelvic reservoir. Prostate is not enlarged. Bones: Mild degenerative endplate spondylosis throughout the spine. Degenerative change of the hips. IMPRESSION: 1. No definite central pulmonary embolus. Suboptimal contrast bolus timing. 2. Heterogeneity of the liver parenchyma may be related to cirrhotic or hepatitis. 3. Coronary artery atherosclerosis. 4. Mildly prominent mediastinal lymph node indeterminate etiology. These may be reactive. Follow-up C T of the chest in 3-6 months recommended to confirm stability or resolution. 5. 3.2 cm incidental right thyroid nodule. Recommend thyroid US. Reference: J Am Idania Radiol. 2015 Mar;12(2): 143-50 This exam was performed according to our departmental dose-optimization program, which includes autom ated exposure control, adjustment of the mA and/or kV according to patient size and/or use of iterati ve reconstruction technique. Electronically signed by: Gwyn Yan 02/21/2020 1:01 AM CHIEF OF POLICE Due to temporary technical issues with the PACS/Fluency reporting system, reports are being signed by the in house radiologist without review as a courtesy to ensure prompt reporting. The interpreting r adiologist is fully responsible for the content of the report.
--- NOTE | 2020-02-21 10:22 | RAD REPORT ---
EXAM DESCRIPTION: Soft Tissue Neck W/Contr CLINICAL HISTORY: Elevated LFT COMPARISON: None Available. TECHNIQUE: CTA of the chest obtained following IV administration of iodinated contrast. 3-D/MIP refo rmatted images available. CT of the abdomen and pelvis was then performed in the portal venous phase. CTA of the neck soft tissues obtained without contrast. FINDINGS: Soft tissue neck: visualized intraorbital contents are unremarkable. No abnormalities of the buccal space or rack maker space. The tongue base is symmetric. Parotid and s ubmandibular glands are unremarkable. No abnormalities of the parapharyngeal space, pharyngeal mucosa l space, retropharyngeal space. Normal epiglottis. Atherosclerotic calcification of the carotid arter ies. 3.2 cm right thyroid nodule. Paranasal sinuses and mastoid air cells are well aerated. Degenerative change of the visualized cervical spine. No gross abnormalities of visualized intracranial contents. Chest: Pulmonary arteries: Contrast bolus is inadequate for evaluation of pulmonary embolus. No definite elvia tral filling defects. Great Vessels: Great vessels have normal anatomic configuration. Thoracic Aorta: Atherosclerotic calcification of a normal caliber thoracic aorta. No evidence of diss ection. Heart: Coronary artery atherosclerosis. No cardiomegaly or significant pericardial effusion. Prior me melvi sternotomy. Lymph Nodes: Scattered mildly prominent multilevel mediastinal lymph nodes. A computer help desk representative lymph no de is seen in the AP window measuring 1.3 x 2.2 cm. Esophagus: No abnormalities of the esophagus identified. Other: No additional findings. Lungs: No confluent airspace consolidation. Significant respiratory motion artifact. Pleura: No pleural effusion or pneumothorax. Trachea/Airways: No abnormalities of the visualized trachea or airways. Abdomen: Liver: Heterogeneity of the liver parenchyma. No intrahepatic or extrahepatic biliary dilatation. Gallbladder: Prior cholecystectomy. Spleen, Pancreas, and Adrenal Glands: Prior splenectomy. Prior distal pancreatectomy. The residual pancreas is unremarkable. The adrenal glands are unremarkable. Kidneys: The kidneys have normal size without evidence of solid mass or hydronephrosis. Vasculature: Aortoiliac atherosclerosis. IVC is unremarkable. The portal vein is patent. The proxim al visceral and renal arteries are patent. Stomach: The stomach and duodenum have normal course. Other: No free intraperitoneal air. No free fluid or lymphadenopathy. Pelvis: Bladder: Urinary bladder is unremarkable. Bowel: No dilated loops of large or small bowel. Appendix: Normal appendix. Pelvis: Penile prosthesis and left pelvic reservoir. Prostate is not enlarged. Bones: Mild degenerative endplate spondylosis throughout the spine. Degenerative change of the hips. IMPRESSION: 1. No definite central pulmonary embolus. Suboptimal contrast bolus timing. 2. Heterogeneity of the liver parenchyma may be related to cirrhotic or hepatitis. 3. Coronary artery atherosclerosis. 4. Mildly prominent mediastinal lymph node indeterminate etiology. These may be reactive. Follow-up C T of the chest in 3-6 months recommended to confirm stability or resolution. 5. 3.2 cm incidental right thyroid nodule. Recommend thyroid US. Reference: J Am Idania Radiol. 2015 Mar;12(2): 143-50 This exam was performed according to our departmental dose-optimization program, which includes autom ated exposure control, adjustment of the mA and/or kV according to patient size and/or use of iterati ve reconstruction technique. Electronically signed by: Gwyn Yan 02/21/2020 1:01 AM FURNACE TENDER Due to temporary technical issues with the PACS/Fluency reporting system, reports are being signed by the in house radiologist without review as a courtesy to ensure prompt reporting. The interpreting r adiologist is fully responsible for the content of the report.
== END 2020-02-21 03:08 | disposition home or self-care (01) ==
LOC: ER 18:25
DX: K74.69 Other cirrhosis of liver (principal); E11.9 Type 2 diabetes mellitus without complications; Z88.6 Allergy status to analgesic agent; Z53.9 Procedure and treatment not carried out, unspecified reason; Z85.51 Personal history of malignant neoplasm of bladder; I10 Essential (primary) hypertension
CPT/HCPCS: 96365; 87040 ×2; 87070; 85025; 80048; 36415; 85379; 80076; 87081; 83605 ×2; 83690; 84145; 70491; 71275; 74177; 71045; 96375; 99284; 96366; Q9967; J7030 ×2; J2405

== ENCOUNTER 2022-09-07 18:52 | Inpatient (IN) | payer MEDICARE, OTHER ==
--- NOTE | 2022-09-07 19:33 | RAD REPORT ---
EXAM DESCRIPTION: RAD - Chest Single View - 09/07/2022 7:25 pm CLINICAL HISTORY: altered mental status Chest pain. COMPARISON: Chest Single View dated 02/20/2020; Chest Single View dated 10/15/2015 FINDINGS: Portable technique limits examination quality. The lungs are grossly clear. The heart is mildly enlarged in size. No displaced fractures.Sternotomy wires present. IMPRESSION: No acute intrathoracic process suspected.
[2022-09-07] MEDS ORDERED: NA CHLORIDE 0.9% 1,000 ML ONE (19:52)
[2022-09-07] MEDS ORDERED: ONDANSETRON 4 MG/2 ML VIAL ONE (19:52)
--- OUTSIDE RECORDS SUMMARY | 2022-09-07 19:55 | XMS REPORT | Continuity of Care Document ---
:1955 Author Organization [facility] t Address [address] [facility]. Antonino. [address] [place] [address] Support Name Relationship Address Phone OLIVA SHAW [address] [facility] [phone] [place] [address] LOIS MCGREGOR [address] [address] [place] [address] Unavailable E [address] [address] [place] [address] Pedro Mcgregor Unavailable [address] [facility] [phone] [place] [address] Lois Mcgregor E N/A [phone] BRIDGER MCGREGOR [address] [facility] [phone] [place] [address] [facility] [phone] [place] [address] LOIS MCGREGOR [address] [facility]0 0 [place] [address] LOIS MCGREGOR [address] [facility] [phone] [place] [address] [address] [facility] [phone] [place] [address] Oliva Shaw Other Unavailable LOIS MCGREGOR E [address] [place] [address] Lois Mcgregor Child [address] [place] [address] DeloresAlba Child [id number] [phone] [place] [address] Care Team Providers Name Role Phone HAYDEN YATES Primary Care Physician Unavailable Brayan Hayden M Attending Clinician Unavailable AUSTIN DIA Attending Clinician Unavailable Blessing Castañeda Attending Clinician Unavailable ROBERT JUAREZ Attending Clinician Unavailable Austin Dia MD Attending Clinician Robert Juarez MD Attending Clinician Randa Shelton RN Attending Clinician Unavailable Rafael Valencia DO Attending Clinician Amelia DEE, Nacho Wells Attending Clinician Doctor Unassigned, [place] Attending Clinician Unavailable LINDSAY FRANKLIN Attending Clinician Unavailable Kesha SUMNER, Antwan Portillo Attending Clinician Unavailable STEVENSON DA SILVA Attending Clinician Unavailable Stevenson Da Silva MD Attending Clinician Angel SUMNER, Aida Attending Clinician Unavailable ZAID SANCHEZ Attending Clinician Unavailable [facility], Infectious Attending Clinician [phone] SMITH LOVELL Attending Clinician Unavailable JOY JON Attending Clinician Unavailable AUDREY HURTADO Attending Clinician Unavailable Laury Augustine Attending Clinician Jennifer Martinez DO Attending Clinician Haylee Mcdonald MD Attending Clinician Audrey Hurtado MD Attending Clinician Anthony Carrillo Attending Clinician Jennifer Echevarria RN Attending Clinician Unavailable HAYLEE MCDONALD Attending Clinician Unavailable Apple DEE, Juan Pablo Attending Clinician Lindsay Franklin MD Attending Clinician Faith Coulter Attending Clinician [phone] Sarai Faye MD Attending Clinician Kevin Villalobos MD Attending Clinician Joy DEE [facility] Attending Clinician Chelo Ward Attending Clinician Unavailable Unknown, Attending Attending Clinician Unavailable KENDRICK CABRALES Attending Clinician Unavailable KENDRICK CABRALES Attending Clinician Unavailable Luigi Stewart MD Attending Clinician Rolf DEE, Keri Iglesias Attending Clinician Lucila DEE, Veronica Attending Clinician VIVIAN AL Attending Clinician Unavailable VIVIAN AL Attending Clinician Unavailable MARTIN CAMP Attending Clinician Unavailable MARTIN CAMP Attending Clinician Unavailable Aquilino Luther MD Attending Clinician Merrill Yates MD Attending Clinician Valentina Deng MD Attending Clinician VALENTINA DENG Attending Clinician Unavailable Caprice Nicholson Attending Clinician Trell LENZ, Zaid Attending Clinician Elisa Joyce MD Attending Clinician Tony Adames MD Attending Clinician IBIKUNHUMA FOLUSHO F Attending Clinician Unavailable Laury HENDERSONP, Folushruss F Attending Clinician Dru Phillip MA Attending Clinician Unavailable Bebe Wesley Attending Clinician [phone] Sommer SUMNER, Lavern Lie Attending Clinician Unavailable Judie Oliva MD Attending Clinician Kassie Ospina RN Attending Clinician Unavailable RADIOLOGY Attending Clinician Unavailable Radiology Attending Clinician Unavailable Philip Quinonez NP Attending Clinician ANTHONY COLE Attending Clinician Unavailable JUDIE OLIVA Attending Clinician Unavailable Pacheco Ramirez DO Attending Clinician VERONICA TURNER Attending Clinician Unavailable TIARRA GARCÍA Attending Clinician Unava ilable Room, [facility] Attending Clinician Unavailable JOAN CONTRERAS Attending Clinician Unavailable Belinda Balderrama RN Attending Clinician Unavailable Only, Adc Test Attending Clinician Unavailable Alejandro Hayward MD Attending Clinician Gabi CEVALLOS, Magdalena Carranza Attending Clinician Niles DEE, Ross Attending Clinician Diane DEE, Joan Attending Clinician Severiano DEE, Landon Attending Clinician Niles DEE, Alfredo Attending Clinician Nery SUMNER, Evelia Gordon Attending Clinician Aishwarya Fiore RN Attending Clinician Unavailable YOUNG, ALLEN S Attending Clinician Unavailable YOUNG ALLEN S Attending Clinician Unavailable Young DEE, Allen S Attending Clinician Ben Hernandez MD Attending Clinician BEN HERNANDEZ Attending Clinician Unavailable [facility] Attending Clinician Unavailable , Adc Lab Attending Clinician Unavailable Iveth Jiménez MD Attending Clinician Mak Cage MD Attending Clinician AUSTIN DIA Admitting Clinician Unavailable ROBERT JUAREZ Admitting Clinician Unavailable Nacho Blanco MD Admitting Clinician NACHO BLANCO Admitting Clinician Unavailable HUMA, JENNIFER Admitting Clinician Unavailable Huma LENZ, Jennifer Admitting Clinician HAYLEE MCDONALD Admitting Clinician Unavailable Haylee Mcdonald MD Admitting Clinician Sarai Fyae MD Admitting Clinician SARAI FAYE Admitting Clinician Unavailable Austin Dia MD Admitting Clinician MOJGAN BARRERA Admitting Clinician Unavailable Chelo Ward Admitting Clinician Unavailable VERONICA ZHU Admitting Clinician Unavailable Veronica Zhu MD Admitting Clinician MARTIN CAMP Admitting Clinician Unavailable VALENTINA DENG Admitting Clinician Unavailable Valentina Deng MD Admitting Clinician APRIL SCHAEFFER Admitting Clinician Unavailable HAYDEN YATES Admitting Clinician Unavailable JUDIE OLIVA Admitting Clinician Unavailable RACHANA THOMAS Admitting Clinician Unavailable Ross Cage MD Admitting Clinician JOAN CONTRERAS Admitting Clinician Unavailable BEN HERNANDEZ Admitting Clinician Unavailable Ben Hernandez MD Admitting Clinician Payers Payer Name Policy Type Policy Number Effective Date Expiration Date Christopher alas AHS [employer] [id number] 2021-02-13 GATES 00:00:00 [facility]/AARP [id number] 2019-02-13 MEDICARE 00:00:00 ADVANTAGE AARP MEDICARE 53 [id number] 2020-02-14 Common ADVANTAGE 00:00:00 Spirit - [facility] UNITED C1 [id number] Common HEALTHCARE [facility] - [facility] MEDICARE [facility] UNITED C1 [id number] Common HEALTHCARE [facility] - [facility] MEDICARE [facility] UNITED C1 [id number] Common HEALTHCARE [facility] - [facility] MEDIC[facility] UNITED C1 [id number] Common HEALTHCARE [facility] - [facility] MED[facility] UNITED C1 [id number] Common HEALTHCARE [facility] - [facility] MED[facility]ARE [facility] UNITED C1 [id number] Common HEALTHCARE [facility] - [facility] MEDICARE [facility] UNITED C1 [id number] Common HEALTHCARE [facility] - [facility] MEDICARE [facility] MEDICARE A B [id number] 2013-01-13 2013-01-13 00:00:00 00:00:00 AARP/UNITED [id number] 2013-06-13 2020-02-14 HEALTHCARE 00:00:00 00:00:00 UNITED C1 [id number] Common HEALTHCARE [facility] - [facility] MEDICARE [facility] UNITED C1 [id number] Common HEALTHCARE [facility] - [facility] MEDICARE [facility] UNITED C1 [id number] Common HEALTHCARE [facility] - [facility] MEDICARE [facility] UNITED C1 [id number] Common HEALTHCARE [facility] - [facility] MED[facility] UNITED C1 [id number] Common HEALTHCARE [facility] - [facility] MED[facility] UNITED C1 [id number] Common HEALTHCARE [facility] - [facility] MED[facility] UNITED C1 [id number] Common HEALTHCARE [facility] - [facility] MEDIC[facility] UNITED C1 [id number] Common HEALTHCARE [facility] - [facility] UNITED C1 [id number] Common HEALTHCARE [facility] - [facility] UNITED C1 [id number] Common HEALTHCARE [facility] - [facility] UNITED C1 [id number] Common HEALTHCARE [facility] - [facility] UNITED C1 [id number] Common HEALTHCARE [facility] - [facility] UNITED C1 [id number] Common HEALTHCARE [facility] - [facility] UNITED C1 [id number] Common HEALTHCARE [facility] - [facility] UNITED C1 [id number] Common HEALTHCARE [facility] - [facility] Problems Condition Condition Condition Status Onset Resolution Last Treating Co mments Source Name Details Category Date Date Treatment Clinician Date Urinary Urinary Disease Active Univers tract tract 7-03 [place]y of infection [place] without 00 Medical hematuria, hematuria, Br anch site site unspecifie unspecifie d d Confusion Confusion Disease Active Uni vers 6-17 ity of 00:: [facility] Branch Sepsis Sepsis Disease Active Univers secondary secondary 4-24 ity of to UTI to UTI 00:00: [facility] Branch Pseudomona Pseudomona Disease Active U nivers s s 4-01 [place] of infection infection [place] [facility] 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 4- ity of disorder disorder 00:00: [place] due to due to 00 Medical neutrophil neutrophil Br anch dysfunctio dysfunctio n n BMI BMI Disease Active Univers 25.0-25.9, 25.0-25.9, 4-01 it y of adult adult 00:00: [facility] Branch Chronic Chronic Disease Active Univers multifocal multifocal 4- it y of osteomyeli osteomyeli [place] tis of tis of 00 Medical left foot left foot Bran ch Osteomyeli Osteomyeli Disease Active U nivonofre tis tis 3-30 ity of 00:00: Medical Branch Abnormal Abnormal Disease Active Unive rs urinalysis urinalysis 3-01 it y of 00:00: Medical Branch Nonhealing Nonhealing Disease Active U emma nonsurgica nonsurgica 3-01 it y of l wound l wound 00:00: [place] 00 Medical Branch Hypotensio Hypotensio Disease Active U nivers n, n, 2-15 ity of unspecifie unspecifie 00:[place] d d 00 Medical hypotensio hypotensio Br anch n type n type CAD CAD Disease Active Univers (coronary (coronary 2-15 ity of artery artery 00:00: [place] disease) disease) 00 Medica l Branch Charcot's Charcot's Disease Active Overview: Univers joint of joint of 1-30 Formattin ity of left foot left foot 00:00: [place] of this [place] 00 note Medical might be Branch different from the original. Added automatic ally from request for surgery [id number] Diarrhea, Diarrhea, Disease Active 2021-02 Uni vers unspecifie unspecifie 105 it y of d type d type 00:00: [place] 00 [facility] Branch Hyperglyce Hyperglyce Disease Active 2021-02 U emma tali tali 1-02 ity of 00:00: [place] 00 [facility] Branch Thrombocyt Thrombocyt Disease Active 2021-02 U emma osis osis 0-30 ity of 00:00: [place] 00 [facility] Branch Postoperat Postoperat Disease Active 2021-02 U emma deyvi deyvi 0-27 ity of urinary urinary 00:00: [place] retention retention 00 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 0-26 ity of 00:00: [place] 00 [facility] Branch Diabetes Diabetes Disease Active 2021-02 Unive rs mellitus mellitus 0-26 ity of with with 00:00: [place] multiple multiple 00 Medica l complicati complicati Br anch ons ons detention detention Disease Recurre 2021-02 Un tabitha (current) (current) nce 0-25 ity of use of use of 00:00: [place] aspirin aspirin 00 Medical Branch Dyslipidem Dyslipidem Disease Recurre 2021-02 Univers ia ia nce 0-25 ity of 00:00: [place] 00 Medical Branch Sepsis Sepsis Disease Active 2021-02 Univers without without 0-20 ity of acute acute 00:00: [place] organ organ 00 Medical dysfunctio dysfunctio Br anch n, due to n, due to unspecifie unspecifie d organism d organism Abscess of Abscess of Disease Active 2021-02 Overview : Univers left lower left lower 0-20 Formattin ity of extremity extremity 00:00: [place] of this [place] 00 note Medical might be Branch different from the original. 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 nce 7-30 Luke s due to due to 00:00: Medical primary primary 00 Center biliary biliary cholangiti cholangiti s s Abnormal Abnormal Disease Active [facility] S t LFTs LFTs 1-17 [facility] 00:00: [address] Nausea Nausea Disease Active [facility] 1-15 [facility] 00:00: [facility] 00 [place] Elevated Elevated Disease Active [facility] S t liver liver 1-11 [facility] enzymes enzymes 00:00: [address] Elevated Elevated Disease Active [facility]I S t alkaline alkaline 1-11 [facility] phosphatas phosphatas 00:00: [place] d[place] e level e level 00 [place] Fatty Fatty Disease Active [facility] liver liver 1-11 [facility] 00:00: [facility] 00 Center Metabolic Metabolic Disease Active [facility] syndrome syndrome 1-11 [facility] 00:00: [place] [address] Center Infection Infection Disease Active Uni vers at site of at site of 8-11 it y of external external 00:00: [place] fixator fixator 00 [facility] pin, pin, Branch subsequent subsequent encounter encounter Essential Essential Disease Active Uni vers hypertensi hypertensi 7-31 it y of on on 00:00: [place] [address] Medical Branch Abnormal Abnormal Disease Active Unive rs EKG EKG 7-31 ity of 00:00: [place] [address] Medical Branch Postural Postural Disease Active 2019- Unive rs dizziness dizziness 7-30 ity of with with 00:00: [place] presyncope presyncope 00 N[place] dical Branch Surgery, Surgery, Disease Active Unive rs elective elective 1-28 ity of 00:00: [place] [address] Medical Branch Contractur Contractur Disease Active 2019-0 U nivers e of right e of right 1-27 it y of Achilles Achilles 00:00: [place] tendon tendon 00 Medical Branch Avascular Avascular Disease Active 2020- Uni vers necrosis necrosis 1-27 ity of of [place], of [place], 00:[place] right right 00 Medical Branch Fracture Fracture Disease Active 2019- Unive rs subluxatio subluxatio 1-27 it y of n of joint n of joint 00:00: [place] of right of right 00 Medica l 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 Cellulitis Cellulitis Disease Active 2020- U nivers 1-17 ity of 00:00: [place] 00 Medical Branch Septic Septic Disease Active 2019- Univers arthritis arthritis 6-30 ity of 00:00: [place] Medical Branch Septic Septic Disease Active 2019- Univers arthritis arthritis 6-30 ity of 00:00: [place] 00 Medical Branch 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 6-29 ity of mellitus mellitus 00:00: [place] with with 00 Medical diabetic diabetic Branch arthropath arthropath y, with y, with long-term long-term current current use of use of insulin insulin Infection Infection Disease Active Uni vers of joint of joint 6-28 ity of of ankle of ankle 00:00: [place] 00 Medical Branch Cellulitis Cellulitis Disease Active 2019- U nivers of foot of foot 6-03 ity of 00:00: [place] 00 Medical Branch S/P foot S/P foot Disease Active Unive rs surgery surgery 4-15 ity of 00:00: [place] Medical Branch Status Status Disease Active 2018- Univers post post 4-15 ity of orthopedic orthopedic 00:[place] surgery, surgery, 00 Medica l follow-up follow-up Bran ch exam exam Right foot Right foot Disease Active 2019- U nivers infection infection 3-07 ity of 00:00: [place] 00 Medical Branch Obesity Obesity Disease Active 2017-02 Univers (BMI (BMI 0-17 ity of 30-39.9) 30-39.9) 00:00: [place] 00 Medical Branch At risk At risk Disease Active 2017-02 Univers for for 0-17 ity of inadequate inadequate 00:00[place] pain pain 00 Medical control control Branch Erectile Erectile Disease Active CHI S t dysfunctio dysfunctio 5-13 Grace kes n n 00:00: Medical [address] [place] [address] Benign Benign Disease Active 2011-02 Univers prostatic prostatic 0-25 ity of hyperplasi hyperplasi 00:00: [place] with a with 00 [facility] lower lower Branch urinary urinary tract tract symptoms symptoms Hesitancy Hesitancy Disease Active 2011-02 Uni vers 0-25 ity of 00:00: [place] 00 [facility] Branch Malignant Malignant Disease Active Uni vers neoplasm neoplasm 4-24 ity of of urinary of urinary 00:00[place] bladder bladder 00 [facility] Branch Pancreatic Pancreatic Disease Active U nivers mass mass 3-27 ity of 00:00: [place] 00 [facility] Branch Inflammato Granuloma Problem Co mmon ry disease of liver Spir it of liver - [facility] Hyperglyce Type 2 Problem Commo n tali due to diabetes Spir it type 2 mellitus - CHI diabetes with St mellitus hyperglyce [place] [facility], [facility] d whether group home insulin use [id number] Diabetic Problem Comm on polyneurop Spirit athy - CHI associated St with type [facility] 2 diabetes Medica l mellitus Center Decreased Decreased Problem Com mon hearing hearing Spirit - [facility] [id number] Charcot's Problem Com mon arthropath Spirit y - [facility] Gastroesop Chronic Problem Comm on hageal GERD Spirit reflux - CHI disease [facility] [id number] detention Problem Com mon (current) Spirit use of - CHI insulin [facility] [id number] Type 2 Problem Common diabetes Spirit mellitus - CHI with diabetic 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 - CHI depressive [facility] Hyperlipid Hyperlipid Problem C ommon emia emia Spirit - [facility] [id number] Osteomyeli Problem C ommon [id number] tis of Spirit right - [id number] of Problem Co mmon bladder Spirit cancer - [facility] Foot ulcer Neuropathi Problem C ommon due to c diabetic Spirit type 2 ulcer of - CHI diabetes foot mellitus [facility] Acute Other Problem Common osteomyeli acute Spirit tis of osteomyeli - [facility] ankle tis, left St and/or ankle and [facility] foot [facility] [id number] Leukocytos Problem Co mmon is, Spirit unspecifie - CHI d [facility] [id number] Primary Problem Common insomnia [facility] [id number] Osteomyeli Problem C ommon [id number] tis of Spirit left foot, - CHI unspecifie d [facility] Allergies, Adverse Reactions, Alerts Allergy Allergy Status Severity Reaction(s) Onset Inactive Treating Comm ents Source Name Type Date Date Clinician hydrocod DA Active [place] NAUSIATED 2021-02 [facility] one 03-07 Clear 00:00: [place] 00 [facility] No Known DA Active U 2021-02 [facility] Allergie 03-01 Clear s 00:00: [place] 00 [facility] HYDROCOD DRUG Active Low N/V Univers ONE-ACET 3-27 ity of AMINOPHE 00:00: [place] [address] Medical Branch Hydrocod Drug Active Nausea Univers one-Acet Intolera and/or 3-27 ity of aminophe nce Vomiting 00:00: [place] [address] Medical Branch NO KNOWN Allergy Active [facility] ALLERGIE S NO KNOWN Drug Active Univers ALLERGIE Class ity of S [place] [facility] Drug Active n/v Common allergy [facility] Social History Social Habit Start Date Stop Date Quantity Comments Source History of Tobacco Common Spirit - Use [facility] History SDOH University o f Alcohol Comment [place] Med ical Branch History SDOH Social Unive rsity of [facility] Med ical Together Branch History SDOH Social Unive rsity of [facility] Medical Branch History SDOH Social Unive rsity of [facility] Medical Membership Branch History SDOH Social Unive rsity of [facility] Medical Meetings Branch Gender identity Universit y [facility] [place] Sexual orientation Univer [facility] Medical Branch History SDOH 2022-08-16 2022-08-16 2 University o f Transport Med 00:00:00 00:00:00 [place] Medic al Branch History SDOH 2022-08-16 2022-08-16 2 University o f Transport Non-Med 00:00:00 00:00:00 [place] M edical Branch History SDOH 2022-08-16 2022-08-16 1 University o f Alcohol Frequency 00:00:00 00:00:00 [place] M edical Branch History SDOH Social 2022-08-16 2022-08-16 5 Unive rsity of Connections Phone 00:00:00 00:00:00 [place] M edical Branch History SDOH Social 2022-08-16 2022-08-16 7 Unive rsity of Connections Living 00:00:00 00:00:00 [place] [facility] History SDOH 2022-08-16 2022-08-16 0 University o f Physical Activity 00:00:00 00:00:00 [place] M edical DPW Branch History SDOH 2022-08-16 2022-08-16 0 University o f Physical Activity 00:00:00 00:00:00 [place] M edical MPS Branch History SDOH 2022-08-16 2022-08-16 2 University o f Housing Unable to 00:00:00 00:00:00 [place] M edical Pay Branch History SDOH 2022-08-16 2022-08-16 1 University o f Housing Places 00:00:00 00:00:00 [place] Medi janis Lived Branch History SDOH 2022-08-16 2022-08-16 2 University o f Housing Homeless 00:00:00 00:00:00 [place] Me dical Last Year Branch History SDOH 2022-08-16 2022-08-16 5 University o f Financial 00:00:00 00:00:00 [place] [facility] History SDOH Food 2022-08-16 2022-08-16 1 Univers ity of Worry 00:00:00 00:00:00 [place] [facility] History SDOH Food 2022-08-16 2022-08-16 1 Univers ity of Scarcity 00:00:00 00:00:00 [place] [facility] Exposure to 2022-05-27 2022-06-06 Not sure University of SARS-CoV-2 (event) 00:00:00 13:10:00 [place] [facility] History of Social 2022-05-10 2022-05-10 Univers ity of function 00:00:00 00:00:00 [place] [facility] History SDOH 2022-04-12 2022-04-12 0 University o f Alcohol Std Drinks 00:00:00 00:00:00 [place] [facility] History SDOH 2022-04-12 2022-04-12 1 University o f Alcohol Binge 00:00:00 00:00:00 [place] Medic al Branch Alcohol intake 2021-08-04 2021-08-04 Current [facility] St Nicole es 00:00:00 00:00:00 non-drinker of Medical Ce nter alcohol (finding) Tobacco use and 2020-02-24 2020-02-24 Smokeless KORINA Carvajal exposure 00:00:00 00:00:00 tobacco non-user [facility] Center Education 2018-08-10 2018-08-[address] [place] [address] 00:00:00 00:00:00 [facility] Sex Ass[birth year] KORINA Carvajal 00:00:00 00:00:00 [facility] Smoking Status Start Date Stop Date Source Never smoked tobacco [facility] Medications Ordered Filled Start Stop Current Ordering Indication Dosage Frequency Signature Comments Components Source Medication Medication Date Date Medication? Clinician (SIG) Name Name iopamidol 2022- No [id number] 80mL 80 mL, Univers (ISOVUE 08-28-16 Intravenou ity o f 370-500 mL) 22:30: 21:33 s, ONCE, 1 [place] injection 00 :00 dose, On Medica l 80 mL [place] 08/28/22 at 1730, Routine aspirin 325 0 Yes 325mg Take 1 Uni vers mg tablet 7-11 tablet by ity o f 13:09: mouth in [place] 40 the Medical morning. Branch meclizine Yes 25mg Take 1 Univer s 25 mg 7-11 tablet by ity of tablet 13:09: mouth in [place] 40 the Medical morning. Branch atorvastati Yes 40mg Take 1 Univ ers n 40 mg 7-11 tablet by ity of tablet 13:09: mouth at [place] 40 bedtime. Medical Branch glimepiride Yes 2mg Take 1 Univ ers 2 mg tablet 7-11 tablet by ity of 13:09: mouth in [place] 40 the Medical morning. Branch insulin Yes 15U Inject 15 Unive rs regular, 7-11 Units as ity of human 13:09: directed [place] (NOVOLIN R 40 at Medical INJECTION) bedtime. Bran h aspirin 325 2022-0 Yes 325mg Take 1 Uni vers mg tablet 7-11 tablet by ity o f 13:09: mouth in [place] 40 the Medical morning. Branch meclizine 2023-0 Yes 25mg Take 1 Univer s 25 mg 7-11 tablet by ity of tablet 13:09: mouth in [place] 40 the Medical morning. Branch atorvastati 2023-0 Yes 40mg Take 1 Univ ers n 40 mg 7-11 tablet by ity of tablet 13:09: mouth at [place] [address] bedtime. Medical Branch glimepiride 2023-0 Yes 2mg Take 1 Univ ers 2 mg tablet 7-11 tablet by ity of 13:09: mouth in [place] 40 the Medical morning. Branch insulin 2023-0 Yes 15U Inject 15 Unive rs regular, 7-11 Units as ity of human 13:09: directed [place] (NOVOLIN R 40 at Medical INJECTION) bedtime. Bran h aspirin 325 3-0 Yes 325mg Take 1 Uni vers mg tablet 7-11 tablet by ity o f 13:09: mouth in [place] 40 the Medical morning. Branch meclizine 2023-0 Yes 25mg Take 1 Univer s 25 mg 7-11 tablet by ity of tablet 13:09: mouth in [place] 40 the Medical morning. Branch atorvastati 3-0 Yes 40mg Take 1 Univ ers n 40 mg 7-11 tablet by ity of tablet 13:09: mouth at [place] [address] bedtime. Medical Branch glimepiride 3-0 Yes 2mg Take 1 Univ ers 2 mg tablet 7-11 tablet by ity of 13:09: mouth in [place] 40 the Medical morning. Branch insulin 2023-0 Yes 15U Inject 15 Unive rs regular, 7-11 Units as ity of human 13:09: directed [place] (NOVOLIN R 40 at Medical INJECTION) bedtime. Bran h aspirin 325 3-0 Yes 325mg Take 1 Uni vers mg tablet 7-11 tablet by ity o f 13:09: mouth in [place] 40 the Medical morning. Branch meclizine 2023-0 Yes 25mg Take 1 Univer s 25 mg 7-11 tablet by ity of tablet 13:09: mouth in [place] 40 the Medical morning. Branch atorvastati 2023-0 Yes 40mg Take 1 Univ ers n 40 mg 7-11 tablet by ity of tablet 13:09: mouth at [place] [address] bedtime. Medical Branch glimepiride 2023-0 Yes 2mg Take 1 Univ ers 2 mg tablet 7-11 tablet by ity of 13:09: mouth in [place] [address] the Medical morning. Branch insulin 3-0 Yes 15U Inject 15 Unive rs regular, 7-11 Units as ity of human 13:09: directed [place] (NOVOLIN R 40 at Medical INJECTION) bedtime. Branc h aspirin 325 3-0 Yes 325mg Take 1 Uni vers mg tablet 7-11 tablet by ity o f 13:09: mouth in [place] 40 the Medical morning. Branch meclizine 3-0 Yes 25mg Take 1 Univer s 25 mg 7-11 tablet by ity of tablet 13:09: mouth in [place] 40 the Medical morning. Branch atorvastati 3-0 Yes 40mg Take 1 Univ ers n 40 mg 7-11 tablet by ity of tablet 13:09: mouth at [place] [address] bedtime. Medical Branch glimepiride 2022-0 Yes 2mg Take 1 Univ ers 2 mg tablet 7-11 tablet by ity of 13:09: mouth in [place] [address] the Medical morning. Branch insulin 3-0 Yes 15U Inject 15 Unive rs regular, 7-11 Units as ity of human 13:09: directed [place] (NOVOLIN R 40 at Medical INJECTION) bedtime. Branc h aspirin 325 3-0 Yes 325mg Take 1 Uni vers mg tablet 7-11 tablet by ity o f 13:09: mouth in [place] [address] the Medical morning. Branch meclizine 3-0 Yes 25mg Take 1 Univer s 25 mg 7-11 tablet by ity of tablet 13:09: mouth in [place] 40 the Medical morning. Branch atorvastati 3-0 Yes 40mg Take 1 Univ ers n 40 mg 7-11 tablet by ity of tablet 13:09: mouth at [place] [address] bedtime. Medical Branch glimepiride 2023-0 Yes 2mg Take 1 Univ ers 2 mg tablet 7-11 tablet by ity of 13:09: mouth in [place] 40 the Medical morning. Branch insulin 3-0 Yes 15U Inject 15 Unive rs regular, 7-11 Units as ity of human 13:09: directed [place] (NOVOLIN R 40 at Medical INJECTION) bedtime. Branc h aspirin 325 3-0 Yes 325mg Take 1 Uni vers mg tablet 7-11 tablet by ity o f 13:09: mouth in [place] 40 the Medical morning. Branch meclizine 2023-0 Yes 25mg Take 1 Univer s 25 mg 7-11 tablet by ity of tablet 13:09: mouth in [place] 40 the Medical morning. Branch atorvastati 2023-0 Yes 40mg Take 1 Univ ers n 40 mg 7-11 tablet by ity of tablet 13:09: mouth at [place] [address] bedtime. Medical Branch glimepiride 3-0 Yes 2mg Take 1 Univ ers 2 mg tablet 7-11 tablet by ity of 13:09: mouth in [place] 40 the Medical morning. Branch insulin 3-0 Yes 15U Inject 15 Unive rs regular, 7-11 Units as ity of human 13:09: directed [place] (NOVOLIN R 40 at Medical INJECTION) bedtime. Bran h aspirin 325 3-0 Yes 325mg Take 1 Uni vers mg tablet 7-11 tablet by ity o f 13:09: mouth in [place] 40 the Medical morning. Branch meclizine 3-0 Yes 25mg Take 1 Univer s 25 mg 7-11 tablet by ity of tablet 13:09: mouth in [place] [address] the Medical morning. Branch atorvastati 3-0 Yes 40mg Take 1 Univ ers n 40 mg 7-11 tablet by ity of tablet 13:09: mouth at [place] [address] bedtime. Medical Branch glimepiride 3-0 Yes 2mg Take 1 Univ ers 2 mg tablet 7-11 tablet by ity of 13:09: mouth in [place] [address] the Medical morning. Branch insulin 2023-0 Yes 15U Inject 15 Unive rs regular, 7-11 Units as ity of human 13:09: directed [place] (NOVOLIN R 40 at Medical INJECTION) bedtime. Bran h aspirin 325 3-0 Yes 325mg Take 1 Uni vers mg tablet 7-11 tablet by ity o f 13:09: mouth in [place] 40 the Medical morning. Branch meclizine 2023-0 Yes 25mg Take 1 Univer s 25 mg 7-11 tablet by ity of tablet 13:09: mouth in [place] 40 the Medical morning. Branch atorvastati 2023-0 Yes 40mg Take 1 Univ ers n 40 mg 7-11 tablet by ity of tablet 13:09: mouth at [place] [address] bedtime. Medical Branch glimepiride 2023-0 Yes 2mg Take 1 Univ ers 2 mg tablet 7-11 tablet by ity of 13:09: mouth in [place] 40 the Medical morning. Branch insulin 2022-0 Yes 15U Inject 15 Unive rs regular, 7-11 Units as ity of human 13:09: directed [place] (NOVOLIN R 40 at Medical INJECTION) bedtime. Bran h aspirin 325 2022-0 Yes 325mg Take 1 Uni vers mg tablet 7-11 tablet by ity o f 13:09: mouth in [place] 40 the Medical morning. Branch meclizine 2022-0 Yes 25mg Take 1 Univer s 25 mg 7-11 tablet by ity of tablet 13:09: mouth in [place] 40 the Medical morning. Branch atorvastati 2022-0 Yes 40mg Take 1 Univ ers n 40 mg 7-11 tablet by ity of tablet 13:09: mouth at [place] [address] bedtime. Medical Branch glimepiride 2022-0 Yes 2mg Take 1 Univ ers 2 mg tablet 7-11 tablet by ity of 13:09: mouth in [place] 40 the Medical morning. Branch insulin 2022-0 Yes 15U Inject 15 Unive rs regular, 7-11 Units as ity of human 13:09: directed [place] (NOVOLIN R 40 at Medical INJECTION) bedtime. Bran h aspirin 325 2022-0 Yes 325mg Take 1 Uni vers mg tablet 7-11 tablet by ity o f 13:09: mouth in [place] 40 the Medical morning. Branch meclizine 2022-0 Yes 25mg Take 1 Univer s 25 mg 7-11 tablet by ity of tablet 13:09: mouth in [place] 40 the Medical morning. Branch atorvastati 2022-0 Yes 40mg Take 1 Univ ers n 40 mg 7-11 tablet by ity of tablet 13:09: mouth at [place] [address] bedtime. Medical Branch glimepiride 2022-0 Yes 2mg Take 1 Univ ers 2 mg tablet 7-11 tablet by ity of 13:09: mouth in [place] 40 the Medical morning. Branch insulin 2022-0 Yes 15U Inject 15 Unive rs regular, 7-11 Units as ity of human 13:09: directed [place] (NOVOLIN R 40 at Medical INJECTION) bedtime. Bran h tamsulosin 2022-0 2023- Yes [id number] .4mg Take 1 Univers 0.4 mg 24 08-19 08-07 capsule by ity of hr capsule 00:00: 04:59 mouth in [place] 00 :00 the Medical morning Branch for 30 days. tamsulosin 3-0 2023- Yes [id number] .4mg Take 1 Univers 0.4 mg 24 08-19 08-07 capsule by ity of hr capsule 00:00: 04:59 mouth in [place] 00 :00 the Medical morning Branch for 30 days. aspirin 325 2023-0 Yes 325mg Take 1 Uni vers mg tablet 7-06 tablet by ity o f 18:40: mouth in [place] [address] the Medical morning. Branch meclizine 3-0 Yes 25mg Take 1 Univer s 25 mg 7-06 tablet by ity of tablet 18:40: mouth in [place] [address] the Medical morning. Branch atorvastati 3-0 Yes 40mg Take 1 Univ ers n 40 mg 7-06 tablet by ity of tablet 18:40: mouth at [place] [address] bedtime. Medical Branch glimepiride 3-0 Yes 2mg Take 1 Univ ers 2 mg tablet 7-06 tablet by ity of 18:40: mouth in [place] [address] the Medical morning. Branch insulin 3-0 Yes 15U Inject 15 Unive rs regular, 7-06 Units as ity of human 18:40: directed [place] (NOVOLIN R 33 at Medical INJECTION) bedtime. Branc h aspirin 325 2022-0 Yes 325mg Take 1 Uni vers mg tablet 7-06 tablet by ity o f 18:40: mouth in [place] [address] the Medical morning. Branch meclizine 3-0 Yes 25mg Take 1 Univer s 25 mg 7-06 tablet by ity of tablet 18:40: mouth in [place] [address] the Medical morning. Branch atorvastati 3-0 Yes 40mg Take 1 Univ ers n 40 mg 7-06 tablet by ity of tablet 18:40: mouth at [place] [address] bedtime. Medical Branch glimepiride 2023-0 Yes 2mg Take 1 Univ ers 2 mg tablet 7-06 tablet by ity of 18:40: mouth in [place] [address] the Medical morning. Branch insulin 2023-0 Yes 15U Inject 15 Unive rs regular, 7-06 Units as ity of human 18:40: directed [place] (NOVOLIN R 33 at Medical INJECTION) bedtime. [facility] h aspirin 325 0 Yes 325mg Take 1 Uni vers mg tablet 08-18 tablet by ity o f 18:40: mouth in [place] [address] the Medical morning. Branch meclizine Yes 25mg Take 1 Univer s 25 mg - tablet by ity of tablet 18:40: mouth in [place] [address] the Medical morning. Branch atorvastati Yes 40mg Take 1 Univ ers n 40 mg - tablet by ity of tablet 18:40: mouth at [place] [address] bedtime. Medical Branch glimepiride Yes 2mg Take 1 Univ ers 2 mg tablet 08-18 tablet by ity of 18:40: mouth in [place] [address] the Medical morning. Branch insulin Yes 15U Inject 15 Unive rs regular, 7- Units as ity of human 18:40: directed [place] (NOVOLIN R 33 at Medical INJECTION) bedtime. [facility] h citalopram Yes 20mg 20 mg, Unive rs (CELEXA) 08-18 Oral, ity of tablet 20 14:00: DAILY, [place] mg 00 First dose Medical (after [place] last modificati on) on [place] 08/18/22 at 0900, Until Discontinu ed, Routine morpHINE (2 Yes 2mg 2 mg, Slow Univers mg/mL) 08-18 IV Push, ity of injection 2 04:10: Q4HPRN, [place] mg 42 Starting Medical on Mon [place] 08/17/22 at 2310, Until Discontinu ed, Routine, Pain (scale 7-10) fluconazole 0 2022- Yes [id number] 200mg Take 1 Univers 200 mg 08-18-20 tablet by ity of tablet 00:00: 04:59 mouth in [place] 00 :00 the Medical morning Branch for 13 days. fluconazole 2022-0 2022- Yes [id number] 200mg Take 1 Univers 200 mg 08-18-20 tablet by ity of tablet 00:00: 04:59 mouth in [place] 00 :00 the Medical morning Branch for 13 days. fluconazole 2022-0 2022- Yes [id number] 200mg Take 1 Univers 200 mg 08-18-20 tablet by ity of tablet 00:00: 04:59 mouth in [place] 00 :00 [facility] for 13 days. fluconazole 2022- Yes [id number] 200mg Take 1 Univers 200 mg 08-1820 tablet by ity of tablet 00:00: 04:59 mouth in [place] 00 :00 the [facility] for 13 days. fluconazole 2022- Yes [id number] 200mg Take 1 Univers 200 mg 08-1820 tablet by ity of tablet 00:00: 04:59 mouth in [place] 00 :00 [facility] for 13 days. fluconazole 2022- Yes [id number] 200mg Take 1 Univers 200 mg 08-1820 tablet by ity of tablet 00:00: 04:59 mouth in [place] 00 :00 [facility] for 13 days. fluconazole 2022- No [id number] 200mg Take 1 Univers 200 mg 08-1820 tablet by ity of tablet 00:00: 04:59 mouth in [place] 00 :00 [facility] for 13 days. fluconazole 2022- Yes 200mg at 100 Un tabitha (DIFLUCAN) 08-1708 mL/hr, IV ity of Piggyback 23:00: 22:59 [place], [place] 200 mg 00 :00 Q24H ABX, Medical 3 doses, Branch First dose on Mon08/17/22 at 1800, Last dose on Mon08/19/22 at 1800, MALI
Do Not Refrigerat e.
meropenem 2022- Yes 1000mg 1,000 mg, Univers (MERREM) 08-17 IV ity of 1,000 mg in 15:00: 14:59 Piggyback, [place] NaCl 0.9% 00 :00 Q8H ABX, 6 Medi janis (NS) 100 mL doses, Branch MINI-BAG First dose (after last modificati on) on Mon08/17/22 at 1000, Last dose on Mon08/19/22 at 0200, Administer over 30 Minutes, 100 mL
Rest ricted use approved by: After Hours (for ADC, CLC, LCC ONLY)
R fide for Anti-Infec tive: Documented Infection& lt;br>Docu mented Infection Site: Urine
D uration of Therapy: 7 days collagenase Yes Topical Uni vers (SANTYL) 08-17 (Apply To ity of ointment 14:00: Affected [place] 00 Areas), Medical DAILY, Branch First dose on Mon08/17/22 at 0900, Until Discontinu ed, Routine vancomycin 2022- Yes 15mg/kg 1,500 mg Univers (VANCOCIN) 08-17 07-10 (rounded ity of 1,500 mg in 06:13: 06:14 from 1,497 [place] NaCl 0.9% 37 :00 mg = 15 Medical (NS) 500 mL mg/kg [place] VIAL-MATE ?99.8 kg), IV IV piggyback Piggyback, Q24H ABX, 5 doses, First dose (after last modificati on) on Mon08/17/22 at 0115, Last dose on Mon08/21/22 at 0115, Administer over 90 Minutes, 500 mL
Reas on for Anti-Infec tive: Documented Infection< br>Documen ender Infection Site: Urine
D uration of Therapy: 7 days atorvastati Yes 40mg 40 mg, Univ ers n (LIPITOR) 7-05 Oral, QHS, it y of tablet 40 02:00: First dose [place] mg 00 on Mon08/16/22 at [place] 2100, Until Discontinu ed, Routine amitriptyli Yes 25mg 25 mg, Univ ers ne (ELAVIL) 7-05 Oral, QHS, it y of tablet 25 02:00: First dose [place] mg 00 on Mon08/16/22 at [place] 2100, Until Discontinu ed, Routine tamsulosin Yes .4mg 0.4 mg, Univ ers (FLOMAX) 7 Oral, ity of capsule 0.4 00:15: DAILY, [place] mg 00 First dose Medical (after [place] last modificati on) on Mon08/16/22 at 1915, Until Discontinu ed, Routine sennosides- Yes 2{tbl} 2 tablet, [facility] docusate 08-16 Oral, ity of sodium 14:00: DAILY, [place] (SENOKOT-S) 00 First dose Me dical 8.6-50 mg on [facility] per tablet 08/16/22 at 2 tablet 0900, Until Discontinu ed, Routine omeprazole 2022-0 Yes 40mg 40 mg, Unive rs (PRILOSEC) 08-16 Oral, ity of capsule 40 14:00: DAILY, [place] mg 00 First dose Medical on [facility] 08/16/22 at 0900, Until Discontinu ed meclizine 2022-0 Yes 25mg 25 mg, Univer s (TRAVEL-EAS 08-16 Oral, ity of E 14:00: DAILY, [place] (MECLIZINE) 00 First dose Me dical ) tablet 25 on [facility] mg 08/16/22 at 0900, Until Discontinu ed, Routine glimepiride 0 Yes 2mg 2 mg, Unive rs (AMARYL) 08-16 Oral, ity of tablet 2 mg 14:00: DAILY, [place] 00 First dose Medical on [facility] 08/16/22 at 0900, Until Discontinu ed, Routine aspirin 0 Yes 325mg 325 mg, Univer s tablet 325 08-16 Oral, ity of mg 14:00: DAILY, [place] 00 First dose Medical on [facility] 08/16/22 at 0900, Until Discontinu ed, Routine enoxaparin 0 Yes 40mg 40 mg, Unive rs (LOVENOX) 08-16 Subcutaneo ity of injection 14:00: us, DAILY, [place] 40 mg 00 First dose Medical on [facility] 08/16/22 at 0900, Until Discontinu ed, Routine citalopram 2022- No 40mg 40 mg, Univ ers (CELEXA) 08-16 Oral, ity of tablet 40 14:00: 22:22 DAILY, [place] mg 00 :20 First dose Medical on [facility] 08/16/22 at 0900, Until Discontinu ed, Routine collagenase 2022-0 2022- No Topical Un tabitha (SANTYL) 08-16 (Apply To ity o f ointment 14:00: 15:57 [place]ffected [place] 00 :52 Areas), Medical DAILY, Branch First dose on [facility] 08/16/22 at 0900, Until Discontinu ed, Routine ursodioL 2023-0 Yes 600mg 600 mg, Unive rs (ACTIGALL) 08-16 Oral, BID, ity of capsule 600 13:00: First dose [place] mg 00 on [facility] 08/16/22 at Branch 0800, Until Discontinu ed, Routine methocarbam Yes 750mg 750 mg, Un tabitha oL 08-16 Oral, QID, ity of (ROBAXIN) 13:00: First dose [place] tablet 750 00 on [facility] mg 08/16/22 at Branch 0800, Until Discontinu ed, Routine gabapentin Yes 300mg 300 mg, Uni vers (NEURONTIN) 08-16 Oral, TID, it y of capsule 300 13:00: First dose [place] mg 00 on [facility] 08/16/22 at Branch 0800, Until Discontinu ed, Routine ferrous Yes 325mg 325 mg, Univer s sulfate 08-16 Oral, BID, ity of tablet 325 13:00: First dose [place] mg 00 on [facility] 08/16/22 at Branch 0800, Until Discontinu ed, Routine meropenem No 1000mg 1,000 mg, Univers (MERREM) 08-16 07-05 IV ity of 1,000 mg in 13:00: 14:16 Piggyback, [place] NaCl 0.9% 00 :25 Q12H, 6 Medical (NS) 100 mL doses, Branch MINI-BAG First dose on Mon08/16/22 at 0800, Last dose on [place] 08/18/22 at 2000, Administer over 30 Minutes, 100 mL
Rest ricted use approved by: After Hours (for ADC, CLC, LCC ONLY)
R fide for Anti-Infec tive: Documented Infection< br>Documen ender Infection Site: Urine
D uration of Therapy: 7 days proMETHazin Yes 12.5mg 12.5 mg, Univers e 08-16 Oral, ity of (PHENERGAN) 12:19: Q4HPRN, [place] tablet 12.5 21 Starting Medi janis mg on [facility] 08/16/22 at 0719, Until Discontinu ed, Routine, Nausea and Vomiting (N/V) HYDROcodone Yes [id number] 1{tbl} 1 tablet, Univers -acetaminop 08-16 Oral, ity of hen (NORCO 12:18: Q6HPRN, [place] 5) 5-325 mg 58 Starting Medi janis tablet 1 on Mon [place] tablet 08/16/22 at 0718, Until Discontinu ed, Routine, Pain (scale 4-6), Pain (scale 7-10) cetirizine Yes 10mg 10 mg, Unive rs (ZYRTEC) 7 Oral, PRN, ity o f tablet 10 12:18: Starting [place] mg 22 on Mon Medical 08/16/22 at [place] 0718, Until Discontinu ed, Routine, Allergies aspirin 325 0 Yes 325mg Take 1 Uni vers mg tablet - tablet by ity o f 07:20: mouth in [place] [address] the Medical morning. [place] meclizine Yes 25mg Take 1 Univer s 25 mg 7-04 tablet by ity of tablet 07:20: mouth in [place] [address] the Medical morning. [place] atorvastati Yes 40mg Take 1 Univ ers n 40 mg - tablet by ity of tablet 07:20: mouth at [place] [address] bedtime. [facility] Branch glimepiride Yes 2mg Take 1 Univ ers 2 mg tablet - tablet by ity of 07:20: mouth in [place] [address] the Medical morning. [place] insulin Yes 15U Inject 15 Unive rs regular, 7-04 Units as ity of human 07:20: directed [place] (NOVOLIN R 37 at Medical INJECTION) bedtime. Branc h NaCl 0.9% Yes 1000mL at 50 Unive rs (NS) IV 7-04 mL/hr, IV ity of infusion 04:15: Infusion, [place] 1,000 mL 00 CONTINUOUS Medic al , Starting [place] on 08/15/22 at 2315, Until Discontinu ed, Routine vancomycin 2022- No 15mg/kg 1,500 mg Univers (VANCOCIN) 08-16 (rounded ity of 1,500 mg in 04:15: 13:51 from 1,497 [place] NaCl 0.9% 00 :29 mg = 15 Medical (NS) 500 mL mg/kg Branch VIAL-MATE ?99.8 kg), IV IV piggyback Piggyback, Q12H ABX, 6 doses, First dose on Mon08/15/22 at 2315, Last dose on Mon08/18/22 at 1115, Administer over 90 Minutes, 500 mL
Reas on for Anti-Infec tive: Documented Infection< br>Documen ender Infection Site: Urine
D uration of Therapy: 7 days piperacilli 2022-0 2022- No 3.375g 3.375 g, Univers n-tazobacta 08-16 IV ity of m (ZOSYN) 04:15: 04:37 Piggyback, [place] 3.375 g in 00 :00 ONCE, 1 Medica l NaCl 0.9% dose, On Branch (NS) 100 mL Mon08/15/22 MINI-BAG at 2315, Administer over 30 Minutes, 100 mL
R fide for Anti-Infec tive: Documented Infection< br>Documen ender Infection Site: Urine<br&g t;Duration of Therapy: 7 days ondansetron Yes 4mg 4 mg, Slow Univers (ZOFRAN 08-16 IV Push, ity of (PF)) 04:08: Q6HPRN, [place] injection 4 50 Starting Medi janis mg on Mon08/15/22 at 2308, Until Discontinu ed, Routine, Nausea and Vomiting (N/V) acetaminoph Yes 650mg 650 mg, Un tabitha en 08-16 Oral, ity of (TYLENOL) 04:08: Q6HPRN, [place] tablet 650 33 Starting Medic al mg on Mon08/15/22 at 2308, Until Discontinu ed, Routine, Pain (scale 1-3) acetaminoph 2022- No 650mg 650 mg, U nivers en 08-16 Oral, ity of (TYLENOL) 03:45: 03:49 ONCE, 1 [place] tablet 650 00 :00 dose, On Medic al mg Mon08/15/22 Branch at 2245, MALI NaCl 0.9% 0 2022- No 30mL/kg at 999 Un tabitha (NS) bolus 08-16-04 mL/hr, ity of infusion 03:30: 05:11 2,994 mL [place] 2,994 mL 00 :00 (30 mL/kg Medica l ?99.8 kg), Branch IV Piggyback, ONCE, 1 dose, On Mon08/15/22 at 2230, STAT meclizine 2023-0 Yes 25mg Take 1 Univer s 25 mg 6-24 tablet by ity of tablet 12:33: mouth in [place] 20 the Medical morning. Branch atorvastati 2023-0 Yes 40mg Take 1 Univ ers n 40 mg 6-24 tablet by ity of tablet 12:33: mouth at [place] 20 bedtime. Medical Branch glimepiride 2023-0 Yes 2mg Take 1 Univ ers 2 mg tablet 6-24 tablet by ity of 12:33: mouth in [place] 20 the Medical morning. Branch insulin 3-0 Yes 15U Inject 15 Unive rs regular, 6-24 Units as ity of human 12:33: directed [place] (NOVOLIN R 20 at Medical INJECTION) bedtime. Bran h meclizine 2023-0 Yes 25mg Take 1 Univer s 25 mg 6-24 tablet by ity of tablet 12:33: mouth in [place] 20 the Medical morning. Branch atorvastati 2023-0 Yes 40mg Take 1 Univ ers n 40 mg 6-24 tablet by ity of tablet 12:33: mouth at [place] 20 bedtime. Medical Branch glimepiride 2023-0 Yes 2mg Take 1 Univ ers 2 mg tablet 6-24 tablet by ity of 12:33: mouth in [place] 20 the Medical morning. Branch insulin 2023-0 Yes 15U Inject 15 Unive rs regular, 6-24 Units as ity of human 12:33: directed [place] (NOVOLIN R 20 at Medical INJECTION) bedtime. Branc h meclizine 2023-0 Yes 25mg Take 1 Univer s 25 mg 6-24 tablet by ity of tablet 12:33: mouth in [place] 20 the Medical morning. Branch atorvastati 2023-0 Yes 40mg Take 1 Univ ers n 40 mg 6-24 tablet by ity of tablet 12:33: mouth at [place] 20 bedtime. Medical Branch glimepiride 2023-0 Yes 2mg Take 1 Univ ers 2 mg tablet 6-24 tablet by ity of 12:33: mouth in [place] 20 the Medical morning. Branch insulin 2023-0 Yes 15U Inject 15 Unive rs regular, 6-24 Units as ity of human 12:33: directed [place] (NOVOLIN R 20 at Medical INJECTION) bedtime. Bran h meclizine 2023-0 Yes 25mg Take 1 Univer s 25 mg 6-24 tablet by ity of tablet 12:33: mouth in [place] 20 the Medical morning. Branch atorvastati 2023-0 Yes 40mg Take 1 Univ ers n 40 mg 6-24 tablet by ity of tablet 12:33: mouth at [place] 20 bedtime. Medical Branch glimepiride 2023-0 Yes 2mg Take 1 Univ ers 2 mg tablet 6-24 tablet by ity of 12:33: mouth in [place] 20 the Medical morning. Branch insulin 2023-0 Yes 15U Inject 15 Unive rs regular, 6-24 Units as ity of human 12:33: directed [place] (NOVOLIN R 20 at Medical INJECTION) bedtime. Bran h meclizine 2023-0 Yes 25mg Take 1 Univer s 25 mg 6-24 tablet by ity of tablet 12:33: mouth in [place] 20 the Medical morning. Branch atorvastati 2023-0 Yes 40mg Take 1 Univ ers n 40 mg 6-24 tablet by ity of tablet 12:33: mouth at [place] 20 bedtime. Medical Branch glimepiride 2023-0 Yes 2mg Take 1 Univ ers 2 mg tablet 6-24 tablet by ity of 12:33: mouth in [place] 20 the Medical morning. Branch insulin 2023-0 Yes 15U Inject 15 Unive rs regular, 6-24 Units as ity of human 12:33: directed [place] (NOVOLIN R 20 at Medical INJECTION) bedtime. Bran h meclizine 2023-0 Yes 25mg Take 1 Univer s 25 mg 6-24 tablet by ity of tablet 12:33: mouth in [place] 20 the Medical morning. Branch atorvastati 2023-0 Yes 40mg Take 1 Univ ers n 40 mg 6-24 tablet by ity of tablet 12:33: mouth at [place] 20 bedtime. Medical Branch glimepiride 2023-0 Yes 2mg Take 1 Univ ers 2 mg tablet 6-24 tablet by ity of 12:33: mouth in [place] 20 the Medical morning. Branch insulin 3-0 Yes 15U Inject 15 Unive rs regular, 6-24 Units as ity of human 12:33: directed [place] (NOVOLIN R 20 at Medical INJECTION) bedtime. Branc h meclizine 3-0 Yes 25mg Take 1 Univer s 25 mg 6-24 tablet by ity of tablet 12:33: mouth in [place] 20 the Medical morning. Branch atorvastati 2023-0 Yes 40mg Take 1 Univ ers n 40 mg 6-24 tablet by ity of tablet 12:33: mouth at [place] 20 bedtime. Medical Branch glimepiride 2023-0 Yes 2mg Take 1 Univ ers 2 mg tablet 6-24 tablet by ity of 12:33: mouth in [place] 20 the Medical morning. Branch insulin 3-0 Yes 15U Inject 15 Unive rs regular, 6-24 Units as ity of human 12:33: directed [place] (NOVOLIN R 20 at Medical INJECTION) bedtime. Bran h meclizine 3-0 Yes 25mg Take 1 Univer s 25 mg 6-24 tablet by ity of tablet 12:33: mouth in [place] 20 the Medical morning. Branch atorvastati 2023-0 Yes 40mg Take 1 Univ ers n 40 mg 6-24 tablet by ity of tablet 12:33: mouth at [place] 20 bedtime. Medical Branch glimepiride 2023-0 Yes 2mg Take 1 Univ ers 2 mg tablet 6-24 tablet by ity of 12:33: mouth in [place] 20 the Medical morning. Branch insulin 3-0 Yes 15U Inject 15 Unive rs regular, 6-24 Units as ity of human 12:33: directed [place] (NOVOLIN R 20 at Medical INJECTION) bedtime. Bran h meclizine 2023-0 Yes 25mg Take 1 Univer s 25 mg 6-24 tablet by ity of tablet 12:33: mouth in [place] 20 the Medical morning. Branch atorvastati 2023-0 Yes 40mg Take 1 Univ ers n 40 mg 6-24 tablet by ity of tablet 12:33: mouth at [place] 20 bedtime. Medical Branch glimepiride 2023-0 Yes 2mg Take 1 Univ ers 2 mg tablet 6-24 tablet by ity of 12:33: mouth in [place] 20 the Medical morning. Branch insulin 2023-0 Yes 15U Inject 15 Unive rs regular, 6-24 Units as ity of human 12:33: directed [place] (NOVOLIN R 20 at Medical INJECTION) bedtime. Bran h meclizine 3-0 Yes 25mg Take 1 Univer s 25 mg 6-24 tablet by ity of tablet 12:33: mouth in [place] 20 the Medical morning. Branch atorvastati 2023-0 Yes 40mg Take 1 Univ ers n 40 mg 6-24 tablet by ity of tablet 12:33: mouth at [place] 20 bedtime. Medical Branch glimepiride 2023-0 Yes 2mg Take 1 Univ ers 2 mg tablet 6-24 tablet by ity of 12:33: mouth in [place] 20 the Medical morning. Branch insulin 3-0 Yes 15U Inject 15 Unive rs regular, 6-24 Units as ity of human 12:33: directed [place] (NOVOLIN R 20 at Medical INJECTION) bedtime. Bran h meclizine 3-0 Yes 25mg Take 1 Univer s 25 mg 6-24 tablet by ity of tablet 12:33: mouth in [place] 20 the Medical morning. Branch atorvastati 2023-0 Yes 40mg Take 1 Univ ers n 40 mg 6-24 tablet by ity of tablet 12:33: mouth at [place] 20 bedtime. Medical Branch glimepiride 3-0 Yes 2mg Take 1 Univ ers 2 mg tablet 6-24 tablet by ity of 12:33: mouth in [place] 20 the Medical morning. Branch insulin 2023-0 Yes 15U Inject 15 Unive rs regular, 6-24 Units as ity of human 12:33: directed [place] (NOVOLIN R 20 at Medical INJECTION) bedtime. Bran h meclizine 3-0 Yes 25mg Take 1 Univer s 25 mg 6-24 tablet by ity of tablet 12:33: mouth in [place] 20 the Medical morning. Branch atorvastati 2023-0 Yes 40mg Take 1 Univ ers n 40 mg 6-24 tablet by ity of tablet 12:33: mouth at [place] 20 bedtime. Medical Branch glimepiride 2023-0 Yes 2mg Take 1 Univ ers 2 mg tablet 6-24 tablet by ity of 12:33: mouth in [place] 20 the Medical morning. Branch insulin 2023-0 Yes 15U Inject 15 Unive rs regular, 6-24 Units as ity of human 12:33: directed [place] (NOVOLIN R 20 at Medical INJECTION) bedtime. Bran h meclizine 3-0 Yes 25mg Take 1 Univer s 25 mg 6-24 tablet by ity of tablet 12:33: mouth in [place] 20 the Medical morning. Branch atorvastati 2023-0 Yes 40mg Take 1 Univ ers n 40 mg 6-24 tablet by ity of tablet 12:33: mouth at [place] 20 bedtime. Medical Branch glimepiride 2023-0 Yes 2mg Take 1 Univ ers 2 mg tablet 6-24 tablet by ity of 12:33: mouth in [place] 20 the Medical morning. Branch insulin 3-0 Yes 15U Inject 15 Unive rs regular, 6-24 Units as ity of human 12:33: directed [place] (NOVOLIN R 20 at Medical INJECTION) bedtime. [facility] h meclizine 3-0 Yes 25mg Take 1 Univer s 25 mg 6-24 tablet by ity of tablet 12:33: mouth in [place] 20 the Medical morning. Branch atorvastati 3-0 Yes 40mg Take 1 Univ ers n 40 mg 6-24 tablet by ity of tablet 12:33: mouth at [place] 20 bedtime. Medical Branch glimepiride 3-0 Yes 2mg Take 1 Univ ers 2 mg tablet 6-24 tablet by ity of 12:33: mouth in [place] 20 the Medical morning. Branch insulin 3-0 Yes 15U Inject 15 Unive rs regular, 6-24 Units as ity of human 12:33: directed [place] (NOVOLIN R 20 at Medical INJECTION) bedtime. [facility] h meclizine 3-0 Yes 25mg Take 1 Univer s 25 mg 6-24 tablet by ity of tablet 12:33: mouth in [place] 20 the Medical morning. Branch atorvastati 2023-0 Yes 40mg Take 1 Univ ers n 40 mg 6-24 tablet by ity of tablet 12:33: mouth at [place] 20 bedtime. Medical Branch glimepiride 2023-0 Yes 2mg Take 1 Univ ers 2 mg tablet 6-24 tablet by ity of 12:33: mouth in [place] 20 the Medical morning. Branch insulin 2023-0 Yes 15U Inject 15 Unive rs regular, 6-24 Units as ity of human 12:33: directed [place] (NOVOLIN R 20 at Medical INJECTION) bedtime. [facility] h aspirin 325 2023-0 Yes 325mg Take 1 Uni vers mg tablet 6-24 tablet by ity o f 12:33: mouth in [place] [address] the Medical morning. Branch aspirin 325 2023-0 Yes 325mg Take 1 Uni vers mg tablet 6-24 tablet by ity o f 12:33: mouth in [place] [address] the Medical morning. Branch aspirin 325 2023-0 Yes 325mg Take 1 Uni vers mg tablet 6-24 tablet by ity o f 12:33: mouth in [place] [address] the Medical morning. Branch aspirin 325 2023-0 Yes 325mg Take 1 Uni vers mg tablet 6-24 tablet by ity o f 12:33: mouth in [place] [address] the Medical morning. Branch aspirin 325 2023-0 Yes 325mg Take 1 Uni vers mg tablet 6-24 tablet by ity o f 12:33: mouth in [place] [address] the Medical morning. Branch aspirin 325 2023-0 Yes 325mg Take 1 Uni vers mg tablet 6-24 tablet by ity o f 12:33: mouth in [place] [address] the Medical morning. Branch aspirin 325 2023-0 Yes 325mg Take 1 Uni vers mg tablet 6-24 tablet by ity o f 12:33: mouth in [place] [address] the Medical morning. Branch aspirin 325 2023-0 Yes 325mg Take 1 Uni vers mg tablet 6-24 tablet by ity o f 12:33: mouth in [place] [address] the Medical morning. Branch aspirin 325 2023-0 Yes 325mg Take 1 Uni vers mg tablet 6-24 tablet by ity o f 12:33: mouth in [place] [address] the Medical morning. Branch aspirin 325 2023-0 Yes 325mg Take 1 Uni vers mg tablet 6-24 tablet by ity o f 12:33: mouth in [place] [address] the Medical morning. Branch aspirin 325 2023-0 Yes 325mg Take 1 Uni vers mg tablet 6-24 tablet by ity o f 12:33: mouth in [place] [address] the Medical morning. Branch aspirin 325 2023-0 Yes 325mg Take 1 Uni vers mg tablet 6-24 tablet by ity o f 12:33: mouth in [place] [address] the Medical morning. Branch aspirin 325 2023-0 Yes 325mg Take 1 Uni vers mg tablet 6-24 tablet by ity o f 12:33: mouth in [place] [address] the Medical morning. Branch aspirin 325 2023-0 Yes 325mg Take 1 Uni vers mg tablet 6-24 tablet by ity o f 12:33: mouth in [place] [address] the Medical morning. Branch aspirin 325 2023-0 Yes 325mg Take 1 Uni vers mg tablet 6-24 tablet by ity o f 12:33: mouth in [place] [address] the Medical morning. Branch HYDROcodone 2023-0 Yes 4647 1{tbl} Take 1 Un tabitha -acetaminop 6-24 tablet by ity of hen 5-325 00:00: mouth [place] mg tablet 00 every 6 Medical (six) Branch hours as needed for Pain (scale 4-6) or Pain (scale 7-10). Indication s: acute pain HYDROcodone 2023-0 Yes 4647 1{tbl} Take 1 Un tabitha -acetaminop 6-24 tablet by ity of hen 5-325 00:00: mouth [place] mg tablet 00 every 6 Medical (six) Branch hours as needed for Pain (scale 4-6) or Pain (scale 7-10). Indication s: acute pain HYDROcodone 2023-0 Yes 4647 1{tbl} Take 1 Un tabitha -acetaminop 6-24 tablet by ity of hen 5-325 00:00: mouth [place] mg tablet 00 every 6 Medical (six) Branch hours as needed for Pain (scale 4-6) or Pain (scale 7-10). Indication s: acute pain HYDROcodone 2023-0 Yes 4647 1{tbl} Take 1 Un tabitha -acetaminop 6-24 tablet by ity of hen 5-325 00:00: mouth [place] mg tablet 00 every 6 Medical (six) Branch hours as needed for Pain (scale 4-6) or Pain (scale 7-10). Indication s: acute pain HYDROcodone 2023-0 Yes 4647 1{tbl} Take 1 Un tabitha -acetaminop 6-24 tablet by ity of hen 5-325 00:00: mouth [place] mg tablet 00 every 6 Medical (six) Branch hours as needed for Pain (scale 4-6) or Pain (scale 7-10). Indication s: acute pain HYDROcodone 2023-0 Yes 4647 1{tbl} Take 1 Un tabitha -acetaminop 6-24 tablet by ity of hen 5-325 00:00: mouth [place] mg tablet 00 every 6 Medical (six) Branch hours as needed for Pain (scale 4-6) or Pain (scale 7-10). Indication s: acute pain HYDROcodone 2023-0 Yes 4647 1{tbl} Take 1 Un tabitha -acetaminop 6-24 tablet by ity of hen 5-325 00:00: mouth [place] mg tablet 00 every 6 Medical (six) Branch hours as needed for Pain (scale 4-6) or Pain (scale 7-10). Indication s: acute pain HYDROcodone 2023-0 Yes 4647 1{tbl} Take 1 Un tabitha -acetaminop 6-24 tablet by ity of hen 5-325 00:00: mouth [place] mg tablet 00 every 6 Medical (six) Branch hours as needed for Pain (scale 4-6) or Pain (scale 7-10). Indication s: acute pain HYDROcodone 3-0 Yes 4647 1{tbl} Take 1 Un tabitha -acetaminop 6-24 tablet by ity of hen 5-325 00:00: mouth [place] mg tablet 00 every 6 Medical (six) Branch hours as needed for Pain (scale 4-6) or Pain (scale 7-10). Indication s: acute pain HYDROcodone 3-0 Yes 4647 1{tbl} Take 1 Un tabitha -acetaminop 6-24 tablet by ity of hen 5-325 00:00: mouth [place] mg tablet 00 every 6 Medical (six) Branch hours as needed for Pain (scale 4-6) or Pain (scale 7-10). Indication s: acute pain HYDROcodone 2023-0 Yes 4647 1{tbl} Take 1 Un tabitha -acetaminop 6-24 tablet by ity of hen 5-325 00:00: mouth [place] mg tablet 00 every 6 Medical (six) Branch hours as needed for Pain (scale 4-6) or Pain (scale 7-10). Indication s: acute pain HYDROcodone 2023-0 Yes 4647 1{tbl} Take 1 Un tabitha -acetaminop 6-24 tablet by ity of hen 5-325 00:00: mouth [place] mg tablet 00 every 6 Medical (six) Branch hours as needed for Pain (scale 4-6) or Pain (scale 7-10). Indication s: acute pain HYDROcodone 2023-0 Yes 4647 1{tbl} Take 1 Un tabitha -acetaminop 6-24 tablet by ity of hen 5-325 00:00: mouth [place] mg tablet 00 every 6 Medical (six) Branch hours as needed for Pain (scale 4-6) or Pain (scale 7-10). Indication s: acute pain HYDROcodone 2023-0 Yes 4647 1{tbl} Take 1 Un tabitha -acetaminop 6-24 tablet by ity of hen 5-325 00:00: mouth [place] mg tablet 00 every 6 Medical (six) Branch hours as needed for Pain (scale 4-6) or Pain (scale 7-10). Indication s: acute pain HYDROcodone 3-0 Yes 4647 1{tbl} Take 1 Un tabitha -acetaminop 6-24 tablet by ity of hen 5-325 00:00: mouth [place] mg tablet 00 every 6 Medical (six) Branch hours as needed for Pain (scale 4-6) or Pain (scale 7-10). Indication s: acute pain HYDROcodone 3-0 Yes 4647 1{tbl} Take 1 Un tabitha -acetaminop 6-24 tablet by ity of hen 5-325 00:00: mouth [place] mg tablet 00 every 6 Medical (six) Branch hours as needed for Pain (scale 4-6) or Pain (scale 7-10). Indication s: acute pain HYDROcodone 3-0 Yes 4647 1{tbl} Take 1 Un tabitha -acetaminop 6-24 tablet by ity of hen 5-325 00:00: mouth [place] mg tablet 00 every 6 Medical (six) Branch hours as needed for Pain (scale 4-6) or Pain (scale 7-10). Indication s: acute pain HYDROcodone 2023-0 Yes 4647 1{tbl} Take 1 Un tabitha -acetaminop 6-24 tablet by ity of hen 5-325 00:00: mouth [place] mg tablet 00 every 6 Medical (six) Branch hours as needed for Pain (scale 4-6) or Pain (scale 7-10). Indication s: acute pain HYDROcodone 2023-0 Yes 4647 1{tbl} Take 1 Un tabitha -acetaminop 6-24 tablet by ity of hen 5-325 00:00: mouth [place] mg tablet 00 every 6 Medical (six) Branch hours as needed for Pain (scale 4-6) or Pain (scale 7-10). Indication s: acute pain HYDROcodone 2023-0 Yes 4647 1{tbl} Take 1 Un tabitha -acetaminop 6-24 tablet by ity of hen 5-325 00:00: mouth [place] mg tablet 00 every 6 Medical (six) Branch hours as needed for Pain (scale 4-6) or Pain (scale 7-10). Indication s: acute pain HYDROcodone 2023-0 Yes 4647 1{tbl} Take 1 Un tabitha -acetaminop 6-24 tablet by ity of hen 5-325 00:00: mouth [place] mg tablet 00 every 6 Medical (six) Branch hours as needed for Pain (scale 4-6) or Pain (scale 7-10). Indication s: acute pain HYDROcodone 2023-0 Yes 4647 1{tbl} Take 1 Un tabitha -acetaminop 6-24 tablet by ity of hen 5-325 00:00: mouth [place] mg tablet 00 every 6 Medical (six) Branch hours as needed for Pain (scale 4-6) or Pain (scale 7-10). Indication s: acute pain HYDROcodone 2023-0 Yes 4647 1{tbl} Take 1 Un tabitha -acetaminop 6-24 tablet by ity of hen 5-325 00:00: mouth [place] mg tablet 00 every 6 Medical (six) Branch hours as needed for Pain (scale 4-6) or Pain (scale 7-10). Indication s: acute pain HYDROcodone 2023-0 Yes 4647 1{tbl} Take 1 Un tabitha -acetaminop 6-24 tablet by ity of hen 5-325 00:00: mouth [place] mg tablet 00 every 6 Medical (six) Branch hours as needed for Pain (scale 4-6) or Pain (scale 7-10). Indication s: acute pain HYDROcodone 2023-0 Yes 4647 1{tbl} Take 1 Un tabitha -acetaminop 6-24 tablet by ity of hen 5-325 00:00: mouth [place] mg tablet 00 every 6 Medical (six) Branch hours as needed for Pain (scale 4-6) or Pain (scale 7-10). Indication s: acute pain HYDROcodone 2023-0 Yes 4647 1{tbl} Take 1 Un tabitha -acetaminop 6-24 tablet by ity of hen 5-325 00:00: mouth [place] mg tablet 00 every 6 Medical (six) Branch hours as needed for Pain (scale 4-6) or Pain (scale 7-10). Indication s: acute pain HYDROcodone 2022-0 Yes 4647 1{tbl} Take 1 Un tabitha -acetaminop 6-24 tablet by ity of hen 5-325 00:00: mouth [place] mg tablet 00 every 6 Medical (six) Branch hours as needed for Pain (scale 4-6) or Pain (scale 7-10). Indication s: acute pain HYDROcodone 2022-0 Yes 4647 1{tbl} Take 1 Un tabitha -acetaminop 6-24 tablet by ity of hen 5-325 00:00: mouth [place] mg tablet 00 every 6 Medical (six) Branch hours as needed for Pain (scale 4-6) or Pain (scale 7-10). Indication s: acute pain HYDROcodone 2022-0 Yes 4647 1{tbl} Take 1 Un tabitha -acetaminop 6-24 tablet by ity of hen 5-325 00:00: mouth [place] mg tablet 00 every 6 Medical (six) Branch hours as needed for Pain (scale 4-6) or Pain (scale 7-10). Indication s: acute pain Nitrofurant 2022-2022- Yes [id number] 100mg Take 1 Univers oin&Nit. 08-06-28 capsule by ity of Macrocryst 00:00: 04:59 mouth in [place] 100 mg 00 :00 the Medical capsule morning Branch and 1 capsule in the evening. Do all this for 3 days. Nitrofurant 2022- Yes [id number] 100mg Take 1 Univers oin&Nit. -06 08-28 capsule by ity of [place]ryst 00:00: 04:59 mouth in [place] 100 mg 00 :00 the Medical capsule morning Branch and 1 capsule in the evening. Do all this for 3 days. Nitrofurant 2022- Yes [id number] 100mg Take 1 Univers oin&Nit. -06 08- capsule by ity of [place] 00:00: 04:59 mouth in [place] 100 mg 00 :00 the Medical capsule morning Branch and 1 capsule in the evening. Do all this for 3 days. Nitrofurant 2022-0 3- Yes [id number] 100mg Take 1 Univers oin&Nit. 08-06 capsule by ity of [place] 00:00: 04:59 mouth in [place] 100 mg 00 :00 the Medical capsule morning Branch and 1 capsule in the evening. Do all this for 3 days. Nitrofurant 2022-0 2022- No [id number] 100mg Take 1 Univers oin&Nit. 08-06 capsule by ity of [place] 00:00: 04:59 mouth in [place] 100 mg 00 :00 the Medical capsule morning Branch and 1 capsule in the evening. Do all this for 3 days. Nitrofurant 2022-0 3- No [id number] 100mg Take 1 Univers oin&Nit. 08-06 capsule by ity of [place] 00:00: 04:59 mouth in [place] 100 mg 00 :00 the Medical capsule morning Branch and 1 capsule in the evening. Do all this for 3 days. Nitrofurant 2022-0 3- No [id number] 100mg Take 1 Univers oin&Nit. 08-06 capsule by ity of [place] 00:00: 04:59 mouth in [place] 100 mg 00 :00 the Medical capsule morning Branch and 1 capsule in the evening. Do all this for 3 days. Nitrofurant 2022-0 3- No [id number] 100mg Take 1 Univers oin&Nit. 08-06 capsule by ity of [place] 00:00: 04:59 mouth in [place] 100 mg 00 :00 the Medical capsule morning Branch and 1 capsule in the evening. Do all this for 3 days. lidocaine 2022-0 2022- No 5mL 5 mL, Univer s 1% (PF) 08-05 Subcutaneo ity o f (XYLOCAINE) 20:30: 01:40 us, ONCE, [place] injection 5 00 :00 1 dose, On Me dical mL Fri Branch 08/05/22 at 1530, Routine NaCl 0.9% Yes 10mL 10 mL, Univer s (NS) 08-05 Slow IV ity of injection 20:25: Push, PRN, [place] 10 mL 11 Starting Medical on Mon Branch 08/05/22 at 1525, Until Discontinu ed, Routine, line maintenanc e ceFAZolin 2022- Yes 2000mg 2,000 mg, Univers (ANCEF) 08-03 07-05 Intravenou ity o f 2,000 mg in 19:00: 18:59 s, Q8H [place] NaCl 0.9% 00 :00 ABX, 42 Medical (NS) 100 mL doses, Branch MINI-BAG First dose (after last modificati on) on Mon08/03/22 at 1400, Last dose on Mon08/17/22 at 0600, Administer over 30 Minutes, 100 mL
Reas on for Anti-Infec tive: Documented Infection< br>Documen ender Infection Site: Blood
D uration of Therapy: 14 days Nitrofurant 2022- Yes 100mg 100 mg, U nivers oin&Nit. 08-03 Oral, BID, ity of [place] 18:00: 12:59 8 doses, [place] (MACROBID) 00 :00 First dose Med ical 100 mg (after Branch capsule 100 last mg modificati on) on Mon08/03/22 at 1300, Last dose on Mon08/06/22 at 2000, Routine
Reason for Anti-Infec tive: Documented Infection< br>Documen ender Infection Site: Urine
D uration of Therapy: Other (see Comments) proMETHazin Yes 12.5mg 12.5 mg, Univers e 08-03 Oral, ity of (PHENERGAN) 14:30: Q6HPRN, [place] tablet 12.5 59 Starting Medi janis mg on Mon Branch 08/03/22 at 0930, Until Discontinu ed, Routine, Nausea and Vomiting (N/V) NaCl 0.9% Yes 10mL 10 mL, Univer s (NS) 08-02 Slow IV ity of injection 22:05: Push, PRN, [place] 10 mL 34 Starting Medical on Mon Branch 08/02/22 at 1705, Until Discontinu ed, Routine, line maintenanc e sulfur 2022- No [id number] 5mL 5 mL, Univ ers hexafluorid 08-02 Intravenou i ty of e microsphr 15:45: 15:45 s, ONCE, 1 [place] (LUMASON) 00 :00 dose, On Medica l injection 5 Mon mL 08/02/22 at 1045, Routine
member of congress approving Restricted medication : SUBHASH SIEGEL ertapenem 2022- No 1000mg 1,000 mg, Univers (INVANZ) 08-02 IV ity of 1,000 mg in 15:15: 14:21 [place], [place] NaCl 0.9% 00 :29 Q24H ABX, Medic al (NS) 100 mL 5 doses, Bran ch MINI-BAG First dose on Mon08/02/22 at 1015, Last dose on 08/06/22 at 1015, Administer over 30 Minutes, 100 mL
Reas on for Anti-Infec tive: Documented Infection< br>Documen ender Infection Site: Urine
D uration of Therapy: 7 days
Re stricted use approved by: Documented ESBL infection or colonizati on in the past 3 months vancomycin 2022- No 1000mg 1,000 mg, Univers (VANCOCIN) 08-02 IV ity of 1,000 mg in 01:30: 14:21 [place], [place] NaCl 0.9% 00 :29 Q12H ABX, Medic al (NS) 250 mL First dose Br anch VIAL-MATE on Mon IV 08/01/22 at piggyback 2030, Until Discontinu ed, Administer over 60 Minutes, 250 mL
Reas on for Anti-Infec tive: Empiric Therapy for Suspected Infection& lt;br>Empi rosalinda Therapy Site: Blood
D uration of therapy: 72 hours atorvastati Yes 40mg 40 mg, Univ ers n (LIPITOR) 6-19 Oral, QHS, it y of tablet 40 02:00: First dose [place] mg 00 on [facility] 07/31/22 at Branch 2100, Until Discontinu ed, Routine amitriptyli Yes 25mg 25 mg, Univ ers ne (ELAVIL) 6-19 Oral, QHS, it y of tablet 25 02:00: First dose [place] mg 00 on [facility] 07/31/22 at Branch 2100, Until Discontinu ed, Routine collagenase 2022-0 Yes Topical Uni vers (SANTYL) 07-31 (Apply To ity of ointment 19:15: Affected [place] 00 Areas), Medical DAILY, Branch First dose on [place] 07/31/22 at 1415, Until Discontinu ed, Routine sennosides- 0 Yes 2{tbl} 2 tablet, Univers docusate 07-31 Oral, ity of sodium 14:00: DAILY, [place] (SENOKOT-S) 00 First dose Me dical 8.6-50 mg on [facility] per tablet 07/31/22 at 2 tablet 0900, Until Discontinu ed, Routine omeprazole 0 Yes 40mg 40 mg, Unive rs (PRILOSEC) 07-31 Oral, ity of capsule 40 14:00: DAILY, [place] mg 00 First dose Medical on [facility] 07/31/22 at 0900, Until Discontinu ed glimepiride 0 Yes 2mg 2 mg, Unive rs (AMARYL) 07-31 Oral, ity of tablet 2 mg 14:00: DAILY, [place] 00 First dose Medical on [facility] 07/31/22 at 0900, Until Discontinu ed, Routine citalopram Yes 40mg 40 mg, Unive rs (CELEXA) 07-31 Oral, ity of tablet 40 14:00: DAILY, [place] mg 00 First dose Medical on [facility] 07/31/22 at 0900, Until Discontinu ed, Routine aspirin 0 Yes 325mg 325 mg, Univer s tablet 325 07-31 Oral, ity of mg 14:00: DAILY, [place] 00 First dose Medical on [facility] 07/31/22 at 0900, Until Discontinu ed, Routine enoxaparin 0 Yes 40mg 40 mg, Unive rs (LOVENOX) 07-31 Subcutaneo ity of injection 14:00: us, DAILY, [place] 40 mg 00 First dose Medical on [facility] 07/31/22 at 0900, Until Discontinu ed, Routine ursodioL 0 Yes 600mg 600 mg, Unive rs (ACTIGALL) 07-31 Oral, BID, ity of capsule 600 13:00: First dose [place] mg 00 on [facility] 07/31/22 at Branch 0800, Until Discontinu ed, Routine gabapentin 0 Yes 300mg 300 mg, Uni vers (NEURONTIN) 07-31 Oral, TID, it y of capsule 300 13:00: First dose [place] mg 00 on [facility] 07/31/22 at Branch 0800, Until Discontinu ed, Routine ferrous 0 Yes 325mg 325 mg, Univer s sulfate 07-31 Oral, BID, ity of tablet 325 13:00: First dose [place] mg 00 on [facility] 07/31/22 at Branch 0800, Until Discontinu ed, Routine Sliding 0 Yes Subcutaneo Univ ers Scale 07-31 us, AC+HS, ity of Insulin-Reg 12:30: First dose [place] ular 00 on [facility] 07/31/22 at Branch 0730, Until Discontinu ed, Routine methocarbam 0 Yes 750mg 750 mg, Un tabitha oL 07-31 Oral, ity of (ROBAXIN) 11:44: QIDPRN, [place] tablet 750 16 Starting Medic al mg on [facility] 07/31/22 at 0644, Until Discontinu ed, Routine, Muscle Spasms meclizine Yes 25mg 25 mg, Univer s (TRAVEL-EAS 07-31 Oral, ity of E 11:44: [place], [place] (MECLIZINE) 04 Starting Medi janis ) tablet 25 on [facility] mg 07/31/22 at 0644, Until Discontinu ed, Routine, Dizziness piperacilli 2022-0 2022- No 3.375g 3.375 g, Univers n-tazobacta 07-3120 IV ity of m (ZOSYN) 10:00: 14:01 [place], [place] 3.375 g in 00 :42 Q8H ABX, 9 Med ical NaCl 0.9% doses, Branch (NS) 100 mL First dose MINI-BAG (after last modificati on) on [place] 07/31/22 at 0500, Last dose on Mon08/02/22 at 2100, Administer over 4 Hours, 100 mL
Reas on for Anti-Infec tive: Empiric Therapy for Suspected Infection< br>Empiric Therapy Site: Urine
D uration of therapy: 72 hours glucagon Yes 1mg 1 mg, Univers (GLUCAGEN 07-31 Intramuscu ity of DIAGNOSTIC 05:42: lar, PRN, [place] KIT) 42 Starting Medical injection 1 on Sun Branch mg 07/31/22 at 0042, Until Discontinu ed, MALI, Blood Glucose < or = 70 mg/dL and patient is NPO, unable to swallow or has mental changes. piperacilli 2022- No 3.375g 3.375 g, Univers n-tazobacta 07-31 IV ity of m (ZOSYN) 05:00: 02:13 [place], [place] injection 00 :13 Q6H, First Medi janis 3.375 g dose on Branch 07/31/22 at 0000, Until Discontinu ed, MALI
Re ason for Anti-Infec tive: Empiric Therapy for Suspected Infection< br>Empiric Therapy Site: Urine<b r>Duration of therapy: 72 hours NaCl 0.9% Yes 1000mL at 75 Unive rs (NS) IV 6-18 mL/hr, IV ity of infusion 03:15: Infusion, [place] 1,000 mL 00 CONTINUOUS Medic al , Starting Branch on 07/30/22 at 2215, Until Discontinu ed, Routine levoFLOXaci 2022- No 500mg 500 mg, IV Univers n in D5W 07-31 Piggyback, ity of (LEVAQUIN) 03:15: 07:01 at 100 [place] 500 mg/100 00 :13 mL/hr Medical mL Administer Branch Piggyback over 60 500 mg Minutes, Q24H ABX, 4 doses, First dose on 07/30/22 at 2215, Last dose on Mon08/02/22 at 2215, MALI
Re ason for Anti-Infec tive: Documented Infection< br>Documen ender Infection Site: Urine
D uration of Therapy: 7 days acetaminoph 2022- No 1000mg 1,000 mg, Univers en 07-31 Oral, ity of (TYLENOL) 02:30: 02:29 ONCE, 1 [place] tablet 00 :00 dose, On Medical 1,000 mg [facility] 07/30/22 at 2130, MALI HYDROcodone 2022-0 Yes 4647 1{tbl} 1 tablet, Univers -acetaminop 18 Oral, ity of hen (NORCO 02:02: Q6HPRN, [place] 5) 5-325 mg 51 Starting Medi janis tablet 1 on [facility] tablet 07/30/22 at 210, Until Discontinu ed, Routine, Pain (scale 4-6), Pain (scale 7-10) cetirizine 2022-0 Yes 10mg 10 mg, Unive rs (ZYRTEC) 18 Oral, PRN, ity o f tablet 10 02:02: Starting [place] mg 17 on [facility] 07/30/22 at Branch 2101, Until Discontinu ed, Routine, Runny nose NaCl 0.9% 2022-0 3- No 30mL/kg at 999 Un tabitha (NS) bolus 07-31 06-18 mL/hr, ity of infusion 02:00: 04:00 2,952 mL [place] 2,952 mL 00 :00 (30 mL/kg Medica l ?98.4 kg), [place] IV Piggyback, ONCE, 1 dose, On [facility] 07/30/22 at 2100, STAT ondansetron 2022-0 Yes 4mg 4 mg, Slow Univers (ZOFRAN 18 IV Push, ity of (PF)) 01:58: Q6HPRN, [place] injection 4 11 Starting Medi janis mg on [facility] 07/30/22 at 2057, Until Discontinu ed, Routine, Nausea and Vomiting (N/V) acetaminoph 2022-0 Yes 650mg 650 mg, Un tabitha en 18 Oral, ity of (TYLENOL) 01:57: Q6HPRN, [place] tablet 650 59 Starting Medic al mg on [facility] 07/30/22 at 2056, Until Discontinu ed, Routine, Pain (scale 1-3) aspirin 325 3-0 Yes 325mg Take 1 Uni vers mg tablet 6-15 tablet by ity o f 08:30: mouth in [place] 46 the Medical morning. [place] meclizine 2023-0 Yes 25mg Take 1 Univer s 25 mg 6-15 tablet by ity of tablet 08:30: mouth in [place] [address] the Medical morning. Branch atorvastati 2023-0 Yes 40mg Take 1 Univ ers n 40 mg 6-15 tablet by ity of tablet 08:30: mouth at [place] [address] bedtime. Medical Branch glimepiride 2023-0 Yes 2mg Take 1 Univ ers 2 mg tablet 6-15 tablet by ity of 08:30: mouth in [place] [address] the Medical morning. Branch insulin 2023-0 Yes 15U Inject 15 Unive rs regular, 6-15 Units as ity of human 08:30: directed [place] (NOVOLIN R 46 at Medical INJECTION) bedtime. Bran h aspirin 325 2023-0 Yes 325mg Take 1 Uni vers mg tablet 6-15 tablet by ity o f 08:30: mouth in [place] [address] the Medical morning. Branch meclizine 2023-0 Yes 25mg Take 1 Un[facility] s 25 mg 6-15 tablet by ity of tablet 08:30: mouth in [place] [address] the Medical morning. Branch atorvastati 2023-0 Yes 40mg Take 1 Univ ers n 40 mg 6-15 tablet by ity of tablet 08:30: mouth at [place] [address] bedtime. Medical Branch glimepiride 2023-0 Yes 2mg Take 1 Univ ers 2 mg tablet 6-15 tablet by ity of 08:30: mouth in [place] [address] the Medical morning. Branch insulin 2023-0 Yes 15U Inject 15 Unive rs regular, 6-15 Units as ity of human 08:30: directed [place] (NOVOLIN R 46 at Medical INJECTION) bedtime. Bran h aspirin 325 3-0 Yes 325mg Take 1 Uni vers mg tablet 6-15 tablet by ity o f 08:30: mouth in [place] [address] the Medical morning. Branch meclizine 2023-0 Yes 25mg Take 1 Un[facility] s 25 mg 6-15 tablet by ity of tablet 08:30: mouth in [place] [address] the Medical morning. Branch atorvastati 2023-0 Yes 40mg Take 1 Univ ers n 40 mg 6-15 tablet by ity of tablet 08:30: mouth at [place] [address] bedtime. Medical Branch glimepiride 2023-0 Yes 2mg Take 1 Univ ers 2 mg tablet 6-15 tablet by ity of 08:30: mouth in [place] 46 the Medical morning. Branch insulin Yes 15U Inject 15 Unive rs regular, 6-15 Units as ity of human 08:30: directed [place] (NOVOLIN R 46 at Medical INJECTION) bedtime. Ryland iglesias collagenase 2022- Yes [id number] Apply to Univers (SANTYL) 07-28 affected ity o f 250 00:00: 04:59 area(s) [place] unit/gram 00 :00 daily for Medic al ointment 30 days. Branch collagenase 2022- Yes [id number] Apply to Univers (SANTYL) 07-28 affected ity o f 250 00:00: 04:59 area(s) [place] unit/gram 00 :00 daily for Medic al ointment 30 days. Branch collagenase 2022- Yes [id number] Apply to Univers (SANTYL) 07-28 affected ity o f 250 00:00: 04:59 area(s) [place] unit/gram 00 :00 daily for Medic al ointment 30 days. Branch collagenase 2022- Yes [id number] Apply to Univers (SANTYL) 07-28 affected ity o f 250 00:00: 04:59 area(s) [place] unit/gram 00 :00 daily for Medic al ointment 30 days. Branch collagenase 2022- Yes [id number] Apply to Univers (SANTYL) 07-28 affected ity o f 250 00:00: 04:59 area(s) [place] unit/gram 00 :00 daily for Medic al ointment 30 days. Branch collagenase 2022- Yes [id number] Apply to Univers (SANTYL) 07-28 affected ity o f 250 00:00: 04:59 area(s) [place] unit/gram 00 :00 daily for Medic al ointment 30 days. Branch collagenase 2022- Yes [id number] Apply to Univers (SANTYL) 07-28 affected ity o f 250 00:00: 04:59 area(s) [place] unit/gram 00 :00 daily for Medic al ointment 30 days. Branch collagenase 2022- Yes [id number] Apply to Univers (SANTYL) 07-28 affected ity o f 250 00:00: 04:59 area(s) [place] unit/gram 00 :00 daily for Medic al ointment 30 days. Branch collagenase 2022- Yes [id number] Apply to Univers (SANTYL) 07-28 affected ity o f 250 00:00: 04:59 area(s) [place] unit/gram 00 :00 daily for Medic al ointment 30 days. Branch collagenase 2022- Yes [id number] Apply to Univers (SANTYL) 07-28 affected ity o f 250 00:00: 04:59 area(s) [place] unit/gram 00 :00 daily for Medic al ointment 30 days. Branch collagenase 2022- Yes [id number] Apply to Univers (SANTYL) 07-28 affected ity o f 250 00:00: 04:59 area(s) [place] unit/gram 00 :00 daily for Medic al ointment 30 days. Branch collagenase 2022- Yes [id number] Apply to Univers (SANTYL) 07-28 affected ity o f 250 00:00: 04:59 area(s) [place] unit/gram 00 :00 daily for Medic al ointment 30 days. Branch collagenase 2022- Yes [id number] Apply to Univers (SANTYL) 07-28 affected ity o f 250 00:00: 04:59 area(s) [place] unit/gram 00 :00 daily for Medic al ointment 30 days. Branch collagenase 2022- Yes [id number] Apply to Univers (SANTYL) 07-28 affected ity o f 250 00:00: 04:59 area(s) [place] unit/gram 00 :00 daily for Medic al ointment 30 days. Branch collagenase 2022- Yes [id number] Apply to Univers (SANTYL) 07-28 affected ity o f 250 00:00: 04:59 area(s) [place] unit/gram 00 :00 daily for Medic al ointment 30 days. Branch collagenase 2022- Yes [id number] Apply to Univers (SANTYL) 07-28 affected ity o f 250 00:00: 04:59 area(s) [place] unit/gram 00 :00 daily for Medic al ointment 30 days. Branch collagenase 2022- Yes [id number] Apply to Univers (SANTYL) 07-28 affected ity o f 250 00:00: 04:59 area(s) [place] unit/gram 00 :00 daily for Medic al ointment 30 days. Branch collagenase 2022- Yes [id number] Apply to Univers (SANTYL) 07-28 affected ity o f 250 00:00: 04:59 area(s) [place] unit/gram 00 :00 daily for Medic al ointment 30 days. Branch collagenase 2022- Yes [id number] Apply to Univers (SANTYL) 07-28 affected ity o f 250 00:00: 04:59 area(s) [place] unit/gram 00 :00 daily for Medic al ointment 30 days. Branch collagenase 2022- Yes [id number] Apply to Univers (SANTYL) 07-28 affected ity o f 250 00:00: 04:59 area(s) [place] unit/gram 00 :00 daily for Medic al ointment 30 days. Branch collagenase 2022- Yes [id number] Apply to Univers (SANTYL) 07-28 affected ity o f 250 00:00: 04:59 area(s) [place] unit/gram 00 :00 daily for Medic al ointment 30 days. Branch collagenase 2022- Yes [id number] Apply to Univers (SANTYL) 07-28 affected ity o f 250 00:00: 04:59 area(s) [place] unit/gram 00 :00 daily for Medic al ointment 30 days. Branch collagenase 2022- Yes [id number] Apply to Univers (SANTYL) 07-28 affected ity o f 250 00:00: 04:59 area(s) [place] unit/gram 00 :00 daily for Medic al ointment 30 days. Branch aspirin 325 3-0 Yes 325mg Take 1 Uni vers mg tablet 4-30 tablet by ity o f 17:09: mouth in [place] [address] the Medical morning. Branch meclizine 2023-0 Yes 25mg Take 1 Univer s 25 mg 4-30 tablet by ity of tablet 17:09: mouth in [place] [address] the Medical morning. Branch atorvastati 2023-0 Yes 40mg Take 1 Univ ers n 40 mg 4-30 tablet by ity of tablet 17:09: mouth at [place] [address] bedtime. Medical Branch glimepiride 2023-0 Yes 2mg Take 1 Univ ers 2 mg tablet 4-30 tablet by ity of 17:09: mouth in [place] [address] the Medical morning. Branch aspirin 325 3-0 Yes 325mg Take 1 Uni vers mg tablet 4-30 tablet by ity o f 17:09: mouth in [place] [address] the Medical morning. Branch meclizine 2023-0 Yes 25mg Take 1 Univer s 25 mg 4-30 tablet by ity of tablet 17:09: mouth in [place] [address] the Medical morning. Branch atorvastati 2023-0 Yes 40mg Take 1 Univ ers n 40 mg 4-30 tablet by ity of tablet 17:09: mouth at [place] [address] bedtime. Medical Branch glimepiride 2023-0 Yes 2mg Take 1 Univ ers 2 mg tablet 4-30 tablet by ity of 17:09: mouth in [place] [address] the Medical morning. Branch aspirin 325 3-0 Yes 325mg Take 1 Uni vers mg tablet 4-30 tablet by ity o f 17:09: mouth in [place] [address] the Medical morning. Branch meclizine 2023-0 Yes 25mg Take 1 Univer s 25 mg 4-30 tablet by ity of tablet 17:09: mouth in [place] [address] the Medical morning. Branch atorvastati 2023-0 Yes 40mg Take 1 Univ ers n 40 mg 4-30 tablet by ity of tablet 17:09: mouth at [place] [address] bedtime. Medical Branch glimepiride 2023-0 Yes 2mg Take 1 Univ ers 2 mg tablet 4-30 tablet by ity of 17:09: mouth in [place] [address] the Medical morning. Branch aspirin 325 2023-0 Yes 325mg Take 1 Uni vers mg tablet 4-30 tablet by ity o f 17:09: mouth in [place] [address] the Medical morning. Branch meclizine 2023-0 Yes 25mg Take 1 Univer s 25 mg 4-30 tablet by ity of tablet 17:09: mouth in [place] [address] the Medical morning. Branch atorvastati 2023-0 Yes 40mg Take 1 Univ ers n 40 mg 4-30 tablet by ity of tablet 17:09: mouth at [place] [address] bedtime. Medical Branch glimepiride 2023-0 Yes 2mg Take 1 Univ ers 2 mg tablet 4-30 tablet by ity of 17:09: mouth in [place] [address] the Medical morning. Branch aspirin 325 2023-0 Yes 325mg Take 1 Uni vers mg tablet 4-30 tablet by ity o f 17:09: mouth in [place] [address] the Medical morning. Branch meclizine 2023-0 Yes 25mg Take 1 Univer s 25 mg 4-30 tablet by ity of tablet 17:09: mouth in [place] [address] the Medical morning. Branch atorvastati 2023-0 Yes 40mg Take 1 Univ ers n 40 mg 4-30 tablet by ity of tablet 17:09: mouth at [place] [address] bedtime. Medical Branch glimepiride 2023-0 Yes 2mg Take 1 Univ ers 2 mg tablet 4-30 tablet by ity of 17:09: mouth in [place] [address] the Medical morning. Branch aspirin 325 2023-0 Yes 325mg Take 1 Uni vers mg tablet 4-30 tablet by ity o f 17:09: mouth in [place] [address] the Medical morning. Branch meclizine 2023-0 Yes 25mg Take 1 Univer s 25 mg 4-30 tablet by ity of tablet 17:09: mouth in [place] [address] the Medical morning. Branch atorvastati 2023-0 Yes 40mg Take 1 Univ ers n 40 mg 4-30 tablet by ity of tablet 17:09: mouth at [place] [address] bedtime. Medical Branch glimepiride 2023-0 Yes 2mg Take 1 Univ ers 2 mg tablet 4-30 tablet by ity of 17:09: mouth in [place] [address] the Medical morning. Branch aspirin 325 2023-0 Yes 325mg Take 1 Uni vers mg tablet 4-30 tablet by ity o f 17:09: mouth in [place] [address] the Medical morning. Branch meclizine Yes 25mg Take 1 Univer s 25 mg 4-30 tablet by ity of tablet 17:09: mouth in [place] [address] the Medical morning. Branch atorvastati 0 Yes 40mg Take 1 Univ ers n 40 mg 4-30 tablet by ity of tablet 17:09: mouth at [place] [address] bedtime. Medical Branch glimepiride 0 Yes 2mg Take 1 Univ ers 2 mg tablet 4-30 tablet by ity of 17:09: mouth in [place] [address] the Medical morning. Branch ertapenem 202- No 1000mg 1,000 mg, Univers (INVANZ) 06-10 04-30 IV ity of 1,000 mg in 20:15: 19:52 [place], [place] NaCl 0.9% 00 :00 Q24H ABX, Medic al (NS) 100 mL 3 doses, Bran ch MINI-BAG First dose on Mon06/10/22 at 1515, Last dose on Mon06/12/22 at 1515, Administer over 30 Minutes, 100 mL
Reas on for Anti-Infec tive: Documented Infection< br>Documen ender Infection Site: Blood
D uration of Therapy: 7 days
Re stricted use approved by: [employer] proMETHazin Yes 12.5mg 12.5 mg, Univers e 06-08 IV ity of (PHENERGAN) 17:00: [place], [place] 12.5 mg in 26 at 200 Medical NaCl 0.9% mL/hr Branch (NS) 50 mL Administer IV over 15 piggyback Minutes, Q4HPRN, Starting on Mon06/08/22 at 1200, Until Discontinu ed, Routine, Nausea and Vomiting (N/V) insulin Yes 10U 10 Units, Unive rs glargine 06-08 Subcutaneo ity o f (LANTUS 02:00: us, [facility], [place] U-100) 00 First dose Medical injection on Mon Branch 10 Units 06/07/22 at 2100, Until Discontinu ed, Routine enoxaparin Yes 40mg 40 mg, Unive rs (LOVENOX) 4-25 Subcutaneo ity of injection 14:00: us, DAILY, [place] 40 mg 00 First dose Medical on [facility] 06/07/22 at 0900, Until Discontinu ed, Routine meclizine Yes 25mg 25 mg, Univer s (TRAVEL-EAS 4-25 Oral, ity of E 14:00: DAILY, [place] (MECLIZINE) 00 First dose Me dical ) tablet 25 on [facility] mg 06/07/22 at 0900, Until Discontinu ed, Routine glimepiride Yes 2mg 2 mg, Unive rs (AMARYL) 4-25 Oral, ity of tablet 2 mg 14:00: DAILY, [place] First dose Medical on [facility] 06/07/22 at 0900, Until Discontinu ed, Routine citalopram Yes 40mg 40 mg, Unive rs (CELEXA) 4-25 Oral, ity of tablet 40 14:00: DAILY, [place] mg 00 First dose Medical on [facility] 06/07/22 at 0900, Until Discontinu ed, Routine aspirin Yes 325mg 325 mg, Univer s tablet 325 -25 Oral, ity of mg 14:00: DAILY, [place] 00 First dose Medical on [facility] 06/07/22 at 0900, Until Discontinu ed, Routine meropenem No 1000mg 1,000 mg, Univers (MERREM) 06-07 04-28 IV ity of 1,000 mg in 06:30: 19:11 [place], [place] NaCl 0.9% 00 :22 Q8H ABX, Medica l (NS) 100 mL 14 doses, [facility] MINI-BAG First dose (after last modificati on) on Mon06/07/22 at 0130, Last dose on Mon06/11/22 at 0930, Administer over 3 Hours, 100 mL
Rest ricted use approved by: EMERGENCY DEPARTMENT PRESCRIBER
Reason for Anti-Infec tive: Documented Infection< br>Docu mented Infection Site: Urine
D uration of Therapy: 7 days Sliding Yes Subcutaneo Univ ers Scale 06-07 us, AC+HS, ity of Insulin-Reg 02:00: First dose [place] ular + Fsbg 00 on [facility] [place] [facility] Medica l Testing 06/06/22 at [place] 2099, Until Discontinu ed, Routine atorvastati 0 Yes 40mg 40 mg, Univ ers n (LIPITOR) 4-25 Oral, QHS, it y of tablet 40 02:00: First dose [place] mg 00 on [facility] 06/06/22 at [place] 2099, Until Discontinu ed, Routine amitriptyli 0 Yes 25mg 25 mg, Univ ers ne (ELAVIL) 4-25 Oral, QHS, it y of tablet 25 02:00: First dose [place] mg 00 on [facility] 06/06/22 at [place] 2100, Until Discontinu ed, Routine methocarbam Yes 750mg 750 mg, Un tabitha oL 4-25 Oral, QID, ity of (ROBAXIN) 01:00: First dose [place] tablet 750 00 on [facility] [place] [facility] Medical mg 06/06/22 at [place] 2000, Until Discontinu ed, Routine gabapentin 0 Yes 300mg 300 mg, Uni vers (NEURONTIN) 4-25 Oral, TID, it y of capsule 300 01:00: First dose [place] mg 00 on [facility] 06/06/22 at [place] 2000, Until Discontinu ed, Routine NaCl 0.9% 0 Yes 1000mL at 125 Univ ers (NS) IV 4-24 mL/hr, IV ity of infusion 22:30: Infusion, [place] 1,000 mL 00 CONTINUOUS Medic al , Starting [place] on Mon06/06/22 at 1730, Until Discontinu ed, Routine meropenem 0 2022- No 1000mg 1,000 mg, Univers (MERREM) 424 04-24 IV ity of 1,000 mg in 22:30: 23:19 [place], [place] NaCl 0.9% 00 :00 ONCE, 1 Medical (NS) 100 mL dose, On [place] [facility] ch MINI-BAG Mon06/06/22 at 1730, Administer over 30 Minutes, 100 mL
Rest ricted use approved by: EMERGENCY DEPARTMENT PRESCRIBER
Reason for Anti-Infec tive: Documented Infection< br>Documen ender Infection Site: Urine
D uration of Therapy: 7 days HYDROcodone 0 Yes 1{tbl} 1 tablet, Univers -acetaminop 4-24 Oral, ity of hen (NORCO) 22:22: Q6HPRN, [facility] as 10-325 mg 13 Starting Medica l tablet 1 on Mon [place] tablet 06/06/22 at 1722, Until Discontinu ed, Routine, Pain (scale 7-10) acetaminoph 2022-0 Yes 650mg 650 mg, Un tabitha en 4-24 Oral, ity of (TYLENOL) 22:22: Q6HPRN, [place] tablet 650 10 Starting Medic al mg on Mon Branch 06/06/22 at 1722, Until Discontinu ed, Routine, Pain (scale 1-3) NaCl 0.9% 2022- No 1000mL at 999 Uni vers (NS) IV 4-24 04-24 mL/hr, ity of infusion 21:45: 21:51 Intravenou [place] 1,000 mL 00 :00 s, ONCE, 1 Medic al dose, On [place] Mon06/06/22 at 1645, Routine aspirin 325 2022-0 Yes 325mg Take 1 Uni vers mg tablet 4-24 tablet by ity o f 21:32: mouth in [place] [address] the Medical morning. Branch meclizine 0 Yes 25mg Take 1 Univer s 25 mg 4-24 tablet by ity of tablet 21:32: mouth in [place] [address] the Medical morning. Branch atorvastati 0 Yes 40mg Take 1 Univ ers n 40 mg 4-24 tablet by ity of tablet 21:32: mouth at [place] [address] bedtime. Medical Branch glimepiride 0 Yes 2mg Take 1 Univ ers 2 mg tablet 4-24 tablet by ity of 21:32: mouth in [place] [address] the Medical morning. Branch NaCl 0.9% 2022- No 1000mL at 999 Uni vers (NS) IV 4-24 04-24 mL/hr, ity of infusion 20:00: 21:51 Intravenou [place] 1,000 mL 00 :00 s, ONCE, 1 Medic al dose, On [place] Mon06/06/22 at 1500, Routine insulin NPH 2022-0 Yes 14U 14 Units, U nivers and regular 3-31 Subcutaneo it y of human 70-30 22:00: [place], [place] ( 00 QAM+PM, Medical U-100 First dose Branch INSULIN) (after 100 unit/mL last () modificati injection on) on Mon 14 Units 05/13/22 at 1700, Until Discontinu ed, Routine insulin NPH 2022- No 12U 12 Units, Univers and regular 05-13 Subcutaneo i ty of human 19:00: 18:59 us, TID, [place] ( 00 :46 First dose Medical U-100 on Mon Branch INSULIN) 05/13/22 at 100 unit/mL 1400, () Until injection Discontinu 12 Units ed, Routine aspirin 325 2022-0 Yes 325mg Take 1 Uni vers mg tablet 3-31 tablet by ity o f 17:44: mouth in [place] [address] the Medical morning. Branch meclizine 2022-0 Yes 25mg Take 1 Univer s 25 mg 3-31 tablet by ity of tablet 17:44: mouth in [place] [address] the Medical morning. Branch atorvastati 2022-0 Yes 40mg Take 1 Univ ers n 40 mg 3-31 tablet by ity of tablet 17:44: mouth at [place] [address] bedtime. Medical Branch glimepiride 2022-0 Yes 2mg Take 1 Univ ers 2 mg tablet 3-31 tablet by ity of 17:44: mouth in [place] [address] the Medical morning. Branch aspirin 325 2022-0 Yes 325mg Take 1 Uni vers mg tablet 3-31 tablet by ity o f 17:44: mouth in [place] [address] the Medical morning. Branch meclizine 3-0 Yes 25mg Take 1 Univer s 25 mg 3-31 tablet by ity of tablet 17:44: mouth in [place] [address] the Medical morning. Branch atorvastati 3-0 Yes 40mg Take 1 Univ ers n 40 mg 3-31 tablet by ity of tablet 17:44: mouth at [place] [address] bedtime. Medical Branch glimepiride 3-0 Yes 2mg Take 1 Univ ers 2 mg tablet 3-31 tablet by ity of 17:44: mouth in [place] [address] the Medical morning. Branch aspirin 325 3-0 Yes 325mg Take 1 Uni vers mg tablet 3-31 tablet by ity o f 17:44: mouth in [place] [address] the Medical morning. Branch meclizine 2023-0 Yes 25mg Take 1 Univer s 25 mg 3-31 tablet by ity of tablet 17:44: mouth in [place] [address] the Medical morning. Branch atorvastati 2023-0 Yes 40mg Take 1 Univ ers n 40 mg 3-31 tablet by ity of tablet 17:44: mouth at [place] [address] bedtime. Medical Branch glimepiride 2023-0 Yes 2mg Take 1 Univ ers 2 mg tablet 3-31 tablet by ity of 17:44: mouth in [place] [address] the Medical morning. Branch aspirin 325 2023-0 Yes 325mg Take 1 Uni vers mg tablet 3-31 tablet by ity o f 17:44: mouth in [place] [address] the Medical morning. Branch meclizine 2023-0 Yes 25mg Take 1 Univer s 25 mg 3-31 tablet by ity of tablet 17:44: mouth in [place] [address] the Medical morning. Branch atorvastati 2023-0 Yes 40mg Take 1 Univ ers n 40 mg 3-31 tablet by ity of tablet 17:44: mouth at [place] [address] bedtime. Medical Branch glimepiride 2023-0 Yes 2mg Take 1 Univ ers 2 mg tablet 3-31 tablet by ity of 17:44: mouth in [place] [address] the Medical morning. Branch aspirin 325 2023-0 Yes 325mg Take 1 Uni vers mg tablet 3-31 tablet by ity o f 17:44: mouth in [place] [address] the Medical morning. Branch meclizine 2023-0 Yes 25mg Take 1 Univer s 25 mg 3-31 tablet by ity of tablet 17:44: mouth in [place] [address] the Medical morning. Branch atorvastati 2023-0 Yes 40mg Take 1 Univ ers n 40 mg 3-31 tablet by ity of tablet 17:44: mouth at [place] [address] bedtime. Medical Branch glimepiride 2023-0 Yes 2mg Take 1 Univ ers 2 mg tablet 3-31 tablet by ity of 17:44: mouth in [place] [address] the Medical morning. Branch aspirin 325 2023-0 Yes 325mg Take 1 Uni vers mg tablet 3-31 tablet by ity o f 17:44: mouth in [place] [address] the Medical morning. Branch meclizine 2023-0 Yes 25mg Take 1 Univer s 25 mg 3-31 tablet by ity of tablet 17:44: mouth in [place] [address] the Medical morning. Branch atorvastati 2023-0 Yes 40mg Take 1 Univ ers n 40 mg 3-31 tablet by ity of tablet 17:44: mouth at [place] [address] bedtime. Medical Branch glimepiride 2023-0 Yes 2mg Take 1 Univ ers 2 mg tablet 3-31 tablet by ity of 17:44: mouth in [place] [address] the Medical morning. Branch aspirin 325 2023-0 Yes 325mg Take 1 Uni vers mg tablet 3-31 tablet by ity o f 17:44: mouth in [place] [address] the Medical morning. Branch meclizine 2023-0 Yes 25mg Take 1 Univer s 25 mg 3-31 tablet by ity of tablet 17:44: mouth in [place] [address] the Medical morning. Branch atorvastati 2023-0 Yes 40mg Take 1 Univ ers n 40 mg 3-31 tablet by ity of tablet 17:44: mouth at [place] [address] bedtime. Medical Branch glimepiride 2023-0 Yes 2mg Take 1 Univ ers 2 mg tablet 3-31 tablet by ity of 17:44: mouth in [place] [address] the Medical morning. Branch aspirin 325 2023-0 Yes 325mg Take 1 Uni vers mg tablet 3-31 tablet by ity o f 17:44: mouth in [place] [address] the Medical morning. Branch meclizine 2023-0 Yes 25mg Take 1 Univer s 25 mg 3-31 tablet by ity of tablet 17:44: mouth in [place] [address] the Medical morning. Branch atorvastati 2023-0 Yes 40mg Take 1 Univ ers n 40 mg 3-31 tablet by ity of tablet 17:44: mouth at [place] [address] bedtime. Medical Branch glimepiride 2023-0 Yes 2mg Take 1 Univ ers 2 mg tablet 3-31 tablet by ity of 17:44: mouth in [place] [address] the Medical morning. Branch aspirin 325 2023-0 Yes 325mg Take 1 Uni vers mg tablet 3-31 tablet by ity o f 17:44: mouth in [place] [address] the Medical morning. Branch meclizine 2023-0 Yes 25mg Take 1 Univer s 25 mg 3-31 tablet by ity of tablet 17:44: mouth in [place] [address] the Medical morning. Branch atorvastati 2023-0 Yes 40mg Take 1 Univ ers n 40 mg 3-31 tablet by ity of tablet 17:44: mouth at [place] [address] bedtime. Medical Branch glimepiride 2022-0 Yes 2mg Take 1 Univ ers 2 mg tablet 3-31 tablet by ity of 17:44: mouth in [place] [address] the Medical morning. Branch aspirin 325 2022-0 Yes 325mg Take 1 Uni vers mg tablet 3-31 tablet by ity o f 17:44: mouth in [place] [address] the Medical morning. Branch meclizine 2022-0 Yes 25mg Take 1 Univer s 25 mg 3-31 tablet by ity of tablet 17:44: mouth in [place] [address] the Medical morning. Branch atorvastati 2022-0 Yes 40mg Take 1 Univ ers n 40 mg 3-31 tablet by ity of tablet 17:44: mouth at [place] [address] bedtime. Medical Branch glimepiride 2022-0 Yes 2mg Take 1 Univ ers 2 mg tablet 3-31 tablet by ity of 17:44: mouth in [place] [address] the Medical morning. Branch aspirin 325 2022-0 Yes 325mg Take 1 Uni vers mg tablet 3-31 tablet by ity o f 17:44: mouth in [place] [address] the Medical morning. Branch meclizine 2022-0 Yes 25mg Take 1 Univer s 25 mg 3-31 tablet by ity of tablet 17:44: mouth in [place] [address] the Medical morning. Branch atorvastati 2022-0 Yes 40mg Take 1 Univ ers n 40 mg 3-31 tablet by ity of tablet 17:44: mouth at [place] [address] bedtime. Medical Branch glimepiride 2022-0 Yes 2mg Take 1 Univ ers 2 mg tablet 3-31 tablet by ity of 17:44: mouth in [place] [address] the Medical morning. Branch insulin NPH 2022- No 3 (three) Univers and regular 3-31 03-31 times ity of human 70-30 14:24: 00:00 daily. [place] as (NOVOLIN 52 :00 Medical 70/30 U-100 Branch INSULIN) 100 unit/mL (70-30) injection ciprofloxac 2022-0 2022- No [id number] 750mg Take 1 Univers in HCl 750 3-31 05-13 tablet by ity of mg tablet 00:00: 04:59 mouth [place] 00 :00 every 12 Medical (twelve) Branch hours for 42 days. ciprofloxac 3-0 2022- No [id number] 750mg Take 1 Univers in HCl 750 3-31 05-13 tablet by ity of mg tablet 00:00: 04:59 mouth [place] 00 :00 every 12 Medical (twelve) Branch hours for 42 days. ciprofloxac 3-0 2022- No [id number] 750mg Take 1 Univers in HCl 750 3-31 05-13 tablet by ity of mg tablet 00:00: 04:59 mouth [place] 00 :00 every 12 Medical (twelve) Branch hours for 42 days. ciprofloxac 3-0 2022- No [id number] 750mg Take 1 Univers in HCl 750 3-31 05-13 tablet by ity of mg tablet 00:00: 04:59 mouth [place] 00 :00 every 12 Medical (twelve) Branch hours for 42 days. ciprofloxac 3-0 2022- No [id number] 750mg Take 1 Univers in HCl 750 3-31 05-13 tablet by ity of mg tablet 00:00: 04:59 mouth [place] 00 :00 every 12 Medical (twelve) Branch hours for 42 days. ciprofloxac 2022-0 2022- No [id number] 750mg Take 1 Univers in HCl 750 3-31 05-13 tablet by ity of mg tablet 00:00: 04:59 mouth [place] 00 :00 every 12 Medical (twelve) Branch hours for 42 days. ciprofloxac 2022-0 2022- No [id number] 750mg Take 1 Univers in HCl 750 3-31 05-13 tablet by ity of mg tablet 00:00: 04:59 mouth [place] 00 :00 every 12 Medical (twelve) Branch hours for 42 days. ciprofloxac 2022-0 2022- No [id number] 750mg Take 1 Univers in HCl 750 3-31 05-13 tablet by ity of mg tablet 00:00: 04:59 mouth [place] 00 :00 every 12 Medical (twelve) Branch hours for 42 days. ciprofloxac 2022-0 2022- No [id number] 750mg Take 1 [facility] in HCl 750 3-31 05-13 tablet by ity of mg tablet 00:00: 04:59 mouth [place] 00 :00 every 12 Medical (twelve) Branch hours for 42 days. ciprofloxac 2023-0 2023- No [id number] 750mg Take 1 [facility] in HCl 750 05-1313 tablet by ity of mg tablet 00:00: 04:59 mouth [place] 00 :00 every 12 Medical (twelve) Branch hours for 42 days. ciprofloxac 2022- No [id number] 750mg Take 1 [facility] in HCl 750 05-13 tablet by ity of mg tablet 00:00: 04:59 mouth [place] 00 :00 every 12 Medical (twelve) Branch hours for 42 days. ciprofloxac 2022- No [id number] 750mg Take 1 [facility] in HCl 750 05-13 tablet by ity of mg tablet 00:00: 04:59 mouth [place] 00 :00 every 12 Medical (twelve) Branch hours for 42 days. ciprofloxac 2022- No [id number] 750mg Take 1 [facility] in HCl 750 05-13 tablet by ity of mg tablet 00:00: 04:59 mouth [place] 00 :00 every 12 Medical (twelve) Branch hours for 42 days. Insulin 2022- No [id number] 14U inject 14 [facility] NPH-Regular 05-13 05-01 Units ity of Human Rec 00:00: 04:59 under the [place] (NOVOLIN 00 :00 skin every Medic al 70-30 morning Branch FLEXPEN and U-100) 100 evening unit/mL for 30 (70-30) days. injection Insulin 2022- No [id number] 14U inject 14 [facility] NPH-Regular 05-13 05-01 Units ity of Human Rec 00:00: 04:59 under the [place] ([place]OV[place]IN 00 :00 skin every Medic al 70-30 morning Branch FLEXPEN and U-100) 100 evening unit/mL for 30 (70-30) days. injection Insulin 2022- No [id number] 14U inject 14 [facility] NPH-Regular - 05-01 Units ity of Human Rec 00:00: 04:59 under the [place] ([place]OV[place]IN 00 :00 skin every Medic al 70-30 morning Branch FLEXPEN and U-100) 100 evening unit/mL for 30 (70-30) days. injection Insulin 2022- No [id number] 14U inject 14 [facility] NPH-Regular 3- 05-01 Units ity of Human Rec 00:00: 04:59 under [place] ([place]OV[place]IN 00 :00 skin every Medic al 70-30 morning Branch FLEXPEN and U-100) 100 evening unit/mL for 30 (70-30) days. injection Insulin 2022- No [id number] 14U inject 14 [facility] NPH-Regular 3- 05-01 Units ity of Human Rec 00:00: 04:59 under the [place] ([place]OV[place]IN 00 :00 skin every Medic al 70-30 morning Branch FLEXPEN and U-100) 100 evening unit/mL for 30 (70-30) days. injection Insulin 2022- No [id number] 14U inject 14 [facility] NPH-Regular - 05- Units ity of Human Rec 00:00: 04:59 under the [place] ([place]OV[place]IN 00 :00 skin every Medic al 70-30 morning Branch FLEXPEN and U-100) 100 evening unit/mL for 30 (70-30) days. injection Insulin 2022- No [id number] 14U inject 14 [facility] NPH-Regular - 05-01 Units ity of Human Rec 00:00: 04:59 under [place] ([place]OV[place]IN 00 :00 skin every Medic al 70-30 morning Branch FLEXPEN and U-100) 100 evening unit/mL for 30 (70-30) days. injection Insulin 2022- No [id number] 14U inject 14 [facility] NPH-Regular - 05- Units ity of Human Rec 00:00: 04:59 under the [place] ([place]OV[place]IN 00 :00 skin every Medic al 70-30 morning Branch FLEXPEN and U-100) 100 evening unit/mL for 30 (70-30) days. injection Insulin 2022- No [id number] 14U inject 14 [facility] NPH-Regular - 05-01 Units ity of Human Rec 00:00: 04:59 under the [place] ([place]OV[place]IN 00 :00 skin every Medic al 70-30 morning Branch FLEXPEN and U-100) 100 evening unit/mL for 30 (70-30) days. injection Insulin 2022- No [id number] 14U inject 14 [facility] NPH-Regular 3- 05-01 Units ity of Human Rec 00:00: 04:59 under the [place] ([place]OV[place]IN 00 :00 skin every Medic al 70-30 morning Branch FLEXPEN and U-100) 100 evening unit/mL for 30 (70-30) days. injection Insulin 2022- No [id number] 14U inject 14 [facility] NPH-Regular 05-13 05-01 Units ity of Human Rec 00:00: 04:59 under the [place] ([place]OV[place]IN 00 :00 skin every Medic al 70-30 morning Branch FLEXPEN and U-100) 100 evening unit/mL for 30 (70-30) days. injection Insulin 2022- No [id number] 14U inject 14 [facility] NPH-Regular - 05-01 Units ity of Human Rec 00:00: 04:59 under the [place] ([place]OV[place]IN 00 :00 skin every Medic al 70-30 morning Branch FLEXPEN and U-100) 100 evening unit/mL for 30 (70-30) days. injection Insulin 2022- No [id number] 14U inject 14 [facility] NPH-Regular 05-13 05-01 Units ity of Human Rec 00:00: 04:59 under the [place] ([place]OV[place]IN 00 :00 skin every Medic al 70-30 morning Branch FLEXPEN and U-100) 100 evening unit/mL for 30 (70-30) days. injection Insulin 2022- No [id number] 14U inject 14 [facility] NPH-Regular 05-13 05-01 Units ity of Human Rec 00:00: 04:59 under the [place] ([place]OV[place]IN 00 :00 skin every Medic al 70-30 morning Branch FLEXPEN and U-100) 100 evening unit/mL for 30 (70-30) days. injection ciprofloxac 2022- No [id number] 750mg Take 1 [facility] in HCl 750 05-1330 tablet by ity of mg tablet 00:00: 00:00 mouth [place] 00 :00 every 12 Medical (twelve) Branch hours for 42 days. linezolid 2022- No [id number] 600mg Take 1 [facility] 600 mg 05-1315 tablet by ity of tablet 00:00: 04:59 mouth [place] 00 :00 every 12 Medical (twelve) Branch hours for 14 days. linezolid 2023-0 2023- No [id number] 600mg Take 1 [facility] 600 mg 3-31 04-15 tablet by ity of tablet 00:00: 04:59 mouth [place] 00 :00 every 12 Medical (twelve) Branch hours for 14 days. linezolid 2023-0 2023- No [id number] 600mg Take 1 [facility] 600 mg 3-31 04-15 tablet by ity of tablet 00:00: 04:59 mouth [place] 00 :00 every 12 Medical (twelve) Branch hours for 14 days. linezolid 3-0 2023- No [id number] 600mg Take 1 [facility] 600 mg 3-31 04-15 tablet by ity of tablet 00:00: 04:59 mouth [place] 00 :00 every 12 Medical (twelve) Branch hours for 14 days. linezolid 3-0 3- No [id number] 600mg Take 1 [facility] 600 mg 3-31 04-15 tablet by ity of tablet 00:00: 04:59 mouth [place] 00 :00 every 12 Medical (twelve) Branch hours for 14 days. linezolid 3-0 3- No [id number] 600mg Take 1 [facility] 600 mg 3-31 04-15 tablet by ity of tablet 00:00: 04:59 mouth [place] 00 :00 every 12 Medical (twelve) Branch hours for 14 days. linezolid 3-0 3- No [id number] 600mg Take 1 [facility] 600 mg 3-31 04-15 tablet by ity of tablet 00:00: 04:59 mouth [place] 00 :00 every 12 Medical (twelve) Branch hours for 14 days. linezolid 3-0 3- No [id number] 600mg Take 1 [facility] 600 mg 3-31 04-15 tablet by ity of tablet 00:00: 04:59 mouth [place] 00 :00 every 12 Medical (twelve) Branch hours for 14 days. linezolid 2023-0 2023- No [id number] 600mg Take 1 [facility] 600 mg 3-31 04-15 tablet by ity of tablet 00:00: 04:59 mouth [place] 00 :00 every 12 Medical (twelve) Branch hours for 14 days. linezolid 2023-0 2023- No [id number] 600mg Take 1 [facility] 600 mg 3-31 04-15 tablet by ity of tablet 00:00: 04:59 mouth [place] 00 :00 every 12 Medical (twelve) Branch hours for 14 days. linezolid 2022-0 3- No [id number] 600mg Take 1 [facility] 600 mg 3-15 tablet by ity of tablet 00:00: 04:59 mouth [place] 00 :00 every 12 Medical (twelve) Branch hours for 14 days. linezolid 2022-0 3- No [id number] 600mg Take 1 [facility] 600 mg 3-31 04-15 tablet by ity of tablet 00:00: 04:59 mouth [place] 00 :00 every 12 Medical (twelve) Branch hours for 14 days. ciprofloxac 2022- No 750mg 750 mg, U nivers in HCl 05-12 Oral, ity of (CIPRO) 23:00: 22:59 Q12HA2, 28 [place] as tablet 750 00 :00 doses, Medical mg First dose Branch on [place] 05/12/22 at 1800, Last dose on Mon05/26/22 at 0600, MALI
Re ason for Anti-Infec tive: Documented Infection< br>Documen ender Infection Site: Bone
Du ration of Therapy: 14 days cefTRIAXone 2022- No 1000mg 1,000 mg, Univers (ROCEPHIN) 05-11 IV ity of 1,000 mg in 17:15: 17:14 [place], [place] NaCl 0.9% 00 :00 Q24H ABX, Medic al (NS) 100 mL 5 doses, Bran ch MINI-BAG First dose on Mon05/11/22 at 1215, Last dose on Mon05/15/22 at 1215, Administer over 30 Minutes, 100 mL
Reas on for Anti-Infec tive: Empiric Therapy for Suspected Infection< br>Empiric Therapy Site: Urine
D uration of therapy: 5 days cefTRIAXone 2022- No 1000mg 1,000 mg, Univers (ROCEPHIN) 05-1130 IV ity of 1,000 mg in 17:15: 19:09 [place], [place] NaCl 0.9% 00 :35 Q24H ABX, Medic al (NS) 100 mL 5 doses, Bran ch MINI-BAG First dose on Mon05/11/22 at 1215, Last dose on Mon05/15/22 at 1215, Administer over 30 Minutes, 100 mL
Reas on for Anti-Infec tive: Empiric Therapy for Suspected Infection< br>Empiric Therapy Site: Urine
D uration of therapy: 5 days omeprazole 2022-0 Yes 40mg 40 mg, Unive rs (PRILOSEC) 3-29 Oral, ity of capsule 40 14:00: DAILY, [place] mg 00 First dose Medical on Mon05/11/22 at 0900, Until Discontinu ed citalopram 0 Yes 40mg 40 mg, Unive rs (CELEXA) 3-29 Oral, ity of tablet 40 14:00: DAILY, [place] mg 00 First dose Medical on Mon05/11/22 at 0900, Until Discontinu ed, Routine omeprazole 2022-0 Yes 40mg 40 mg, Unive rs (PRILOSEC) 3-29 Oral, ity of capsule 40 14:00: DAILY, [place] mg 00 First dose Medical on Mon05/11/22 at 0900, Until Discontinu ed citalopram 0 Yes 40mg 40 mg, Unive rs (CELEXA) 3-29 Oral, ity of tablet 40 14:00: DAILY, [place] mg 00 First dose Medical on Mon05/11/22 at 0900, Until Discontinu ed, Routine aspirin 325 2022-0 Yes 325mg Take 1 Uni vers mg tablet 3-29 tablet by ity o f 13:37: mouth in [place] [address] the Medical morning. Branch meclizine 2022-0 Yes 25mg Take 1 Univer s 25 mg 3-29 tablet by ity of tablet 13:37: mouth in [place] [address] the Medical morning. Branch atorvastati 2022-0 Yes 40mg Take 1 Univ ers n 40 mg 3-29 tablet by ity of tablet 13:37: mouth at [place] [address] bedtime. Medical Branch glimepiride 2022-0 Yes 2mg Take 1 Univ ers 2 mg tablet 3-29 tablet by ity of 13:37: mouth in [place] [address] the Medical morning. Branch insulin NPH 2022-0 Yes 3 (three) U nivers and regular 3-29 times ity of human 70-30 13:37: [place] ([place]OVOLIN 22 Medical 70/30 U-100 [place] INSULIN) 100 unit/mL (70-30) injection aspirin 325 2022-0 Yes 325mg Take 1 Uni vers mg tablet 3-29 tablet by ity o f 13:37: mouth in [place] [address] the Medical morning. Branch meclizine 0 Yes 25mg Take 1 Univer s 25 mg 3-29 tablet by ity of tablet 13:37: mouth in [place] [address] the Medical morning. Branch atorvastati 0 Yes 40mg Take 1 Univ ers n 40 mg 3-29 tablet by ity of tablet 13:37: mouth at [place] [address] bedtime. Medical Branch glimepiride 0 Yes 2mg Take 1 Univ ers 2 mg tablet 3-29 tablet by ity of 13:37: mouth in [place] [address] the Medical morning. Branch acetaminoph 0 Yes 650mg 650 mg, Un tabitha en 3-29 Oral, ity of (TYLENOL) 08:58: Q6HPRN, [place] tablet 650 13 Starting Medic al mg on Mon [place] 05/11/22 at 0358, Until Discontinu ed, Routine, Pain (scale 1-3) acetaminoph 0 Yes 650mg 650 mg, Un tabitha en 3- Oral, ity of (TYLENOL) 08:58: Q6HPRN, [place] tablet 650 13 Starting Medic al mg on Mon [place] 05/11/22 at 0358, Until Discontinu ed, Routine, Pain (scale 1-3) Sliding 2022-0 Yes Subcutaneo Univ ers Scale 3-29 us, AC+HS, ity of Insulin-Reg 02:00: First dose [place] ular + Fsbg on [facility] 05/10/22 at Branch 2100, Until Discontinu ed, Routine melatonin 2022-0 Yes 3mg 3 mg, Univers (MELATIN) 3-29 Oral, QHS, ity of tablet 3 mg 02:00: First dose [place] 00 on [facility] 05/10/22 at Branch 2100, Until Discontinu ed, Routine atorvastati 2022-0 Yes 40mg 40 mg, Univ ers n (LIPITOR) 3-29 Oral, QHS, it y of tablet 40 02:00: First dose [place] mg 00 on [facility] 05/10/22 at Branch 2100, Until Discontinu ed, Routine amitriptyli 2022-0 Yes 25mg 25 mg, Univ ers ne (ELAVIL) 3-29 Oral, QHS, it y of tablet 25 02:00: First dose [place] mg 00 on [facility] 05/10/22 at [place] 2099, Until Discontinu ed, Routine Sliding 2022-0 Yes Subcutaneo Univ ers Scale 3- us, AC+HS, ity of Insulin-Reg 02:00: First dose [place] ular + Fsbg 00 on [facility] 05/10/22 at [place] [address], Until Discontinu ed, Routine melatonin 2022-0 Yes 3mg 3 mg, Univers (MELATIN) 05-11 Oral, QHS, ity of tablet 3 mg 02:00: First dose [place] 00 on [facility] 05/10/22 at [place] 2099, Until Discontinu ed, Routine atorvastati 2022-0 Yes 40mg 40 mg, Univ ers n (LIPITOR) - Oral, QHS, it y of tablet 40 02:00: First dose [place] mg 00 on [facility] 05/10/22 at [place] 2099, Until Discontinu ed, Routine amitriptyli 2022-0 Yes 25mg 25 mg, Univ ers ne (ELAVIL) - Oral, QHS, it y of tablet 25 02:00: First dose [place] mg 00 on [facility] 05/10/22 at [place] 2100, Until Discontinu ed, Routine ursodioL 2022-0 Yes 600mg 600 mg, Unive rs (ACTIGALL) 3- Oral, BID, ity of capsule 600 01:00: First dose [place] mg 00 on [facility] 05/10/22 at [place] 1999, Until Discontinu ed, Routine ursodioL 2022-0 Yes 600mg 600 mg, Unive rs (ACTIGALL) 3-29 Oral, BID, ity of capsule 600 01:00: First dose [place] mg 00 on [facility] 05/10/22 at Branch 1999, Until Discontinu ed, Routine HYDROcodone 2022-0 2023- No 4647 1{tbl} Take 1 U nivers -acetaminop 05-11 04-08 tablet by it y of hen 5-325 00:00: 04:59 mouth [place] mg tablet 00 :00 every 6 Medical (six) Branch hours as needed for Pain (scale 4-6) for up to 7 days. Indication s: acute pain cefpodoxime 2023-0 2022- No [id number] 200mg Take 1 [facility] 200 mg 3-29 04-08 tablet by ity of tablet 00:00: 04:59 mouth in [place] 00 :00 the Medical morning Branch and 1 tablet in the evening. Do all this for 7 days. HYDROcodone 2022-0 2022- No 4647 1{tbl} Take 1 U nivers -acetaminop 3-29 04-08 tablet by it y of hen 5-325 00:00: 04:59 mouth [place] mg tablet 00 :00 every 6 Medical (six) Branch hours as needed for Pain (scale 4-6) for up to 7 days. Indication s: acute pain cefpodoxime 2022-0 2022- No [id number] 200mg Take 1 [facility] 200 mg 3-29 04-08 tablet by ity of tablet 00:00: 04:59 mouth in [place] 00 :00 the Medical morning Branch and 1 tablet in the evening. Do all this for 7 days. HYDROcodone 2022-0 2022- No 4647 1{tbl} Take 1 U nivers -acetaminop 3-29 04-08 tablet by it y of hen 5-325 00:00: 04:59 mouth [place] mg tablet 00 :00 every 6 Medical (six) Branch hours as needed for Pain (scale 4-6) for up to 7 days. Indication s: acute pain cefpodoxime 2022-0 2022- No [id number] 200mg Take 1 [facility] 200 mg 3-29 04-08 tablet by ity of tablet 00:00: 04:59 mouth in [place] 00 :00 the Medical morning Branch and 1 tablet in the evening. Do all this for 7 days. HYDROcodone 2022-0 2022- No 4647 1{tbl} Take 1 U nivers -acetaminop 3-29 04-08 tablet by it y of hen 5-325 00:00: 04:59 mouth [place] mg tablet 00 :00 every 6 Medical (six) Branch hours as needed for Pain (scale 4-6) for up to 7 days. Indication s: acute pain cefpodoxime 2023-0 2022- No [id number] 200mg Take 1 Univers 200 mg 3-29 04-08 tablet by ity of tablet 00:00: 04:59 mouth in [place] 00 :00 the Medical morning Branch and 1 tablet in the evening. Do all this for 7 days. HYDROcodone 2022-2022- No 4647 1{tbl} Take 1 U nivers -acetaminop 3-29 04-08 tablet by it y of hen 5-325 00:00: 04:59 mouth [place] mg tablet 00 :00 every 6 Medical (six) Branch hours as needed for Pain (scale 4-6) for up to 7 days. Indication s: acute pain cefpodoxime 2022-2022- No [id number] 200mg Take 1 Univers 200 mg 3-29 04-08 tablet by ity of tablet 00:00: 04:59 mouth in [place] 00 :00 the Medical morning Branch and 1 tablet in the evening. Do all this for 7 days. HYDROcodone 2022-2022- No 4647 1{tbl} Take 1 U nivers -acetaminop 3-29 04-08 tablet by it y of hen 5-325 00:00: 04:59 mouth [place] mg tablet 00 :00 every 6 Medical (six) Branch hours as needed for Pain (scale 4-6) for up to 7 days. Indication s: acute pain cefpodoxime 2022-2022- No [id number] 200mg Take 1 [facility] 200 mg 3-29 04-08 tablet by ity of tablet 00:00: 04:59 mouth in [place] 00 :00 the Medical morning Branch and 1 tablet in the evening. Do all this for 7 days. HYDROcodone 2022-2022- No 4647 1{tbl} Take 1 U nivers -acetaminop 3-29 04-08 tablet by it y of hen 5-325 00:00: 04:59 mouth [place] mg tablet 00 :00 every 6 Medical (six) Branch hours as needed for Pain (scale 4-6) for up to 7 days. Indication s: acute pain cefpodoxime 2022-0 2022- No [id number] 200mg Take 1 [facility] 200 mg 3-29 04-08 tablet by ity of tablet 00:00: 04:59 mouth in [place] 00 :00 the Medical morning Branch and 1 tablet in the evening. Do all this for 7 days. HYDROcodone 2022-2022- No 4647 1{tbl} Take 1 U nivers -acetaminop 3-29 04-08 tablet by it y of hen 5-325 00:00: 04:59 mouth [place] mg tablet 00 :00 every 6 Medical (six) Branch hours as needed for Pain (scale 4-6) for up to 7 days. Indication s: acute pain cefpodoxime 2022-2022- No [id number] 200mg Take 1 [facility] 200 mg 3-29 04-08 tablet by ity of tablet 00:00: 04:59 mouth in [place] 00 :00 the Medical morning Branch and 1 tablet in the evening. Do all this for 7 days. HYDROcodone 2022-2022- No 4647 1{tbl} Take 1 U nivers -acetaminop 3-29 04-08 tablet by it y of hen 5-325 00:00: 04:59 mouth [place] mg tablet 00 :00 every 6 Medical (six) Branch hours as needed for Pain (scale 4-6) for up to 7 days. Indication s: acute pain cefpodoxime 2022-2022- No [id number] 200mg Take 1 [facility] 200 mg 3-29 04-08 tablet by ity of tablet 00:00: 04:59 mouth in [place] 00 :00 the Medical morning Branch and 1 tablet in the evening. Do all this for 7 days. HYDROcodone 2022-2022- No 4647 1{tbl} Take 1 U nivers -acetaminop 3-29 04-08 tablet by it y of hen 5-325 00:00: 04:59 mouth [place] mg tablet 00 :00 every 6 Medical (six) Branch hours as needed for Pain (scale 4-6) for up to 7 days. Indication s: acute pain cefpodoxime 2022-2022- No [id number] 200mg Take 1 [facility] 200 mg 3-29 04-08 tablet by ity of tablet 00:00: 04:59 mouth in [place] 00 :00 the Medical morning Branch and 1 tablet in the evening. Do all this for 7 days. HYDROcodone 2022- No 4647 1{tbl} Take 1 U nivers -acetaminop 3-29 04-08 tablet by it y of hen 5-325 00:00: 04:59 mouth [place] mg tablet 00 :00 every 6 Medical (six) Branch hours as needed for Pain (scale 4-6) for up to 7 days. Indication s: acute pain cefpodoxime 2022-2022- No [id number] 200mg Take 1 [facility] 200 mg 05-11 tablet by ity of tablet 00:00: 04:59 mouth in [place] 00 :00 the Medical morning Branch and 1 tablet in the evening. Do all this for 7 days. HYDROcodone 2022- No 4647 1{tbl} Take 1 U nivers -acetaminop 05-11 tablet by it y of hen 5-325 00:00: 04:59 mouth [place] mg tablet 00 :00 every 6 Medical (six) Branch hours as needed for Pain (scale 4-6) for up to 7 days. Indication s: acute pain cefpodoxime 2022- No [id number] 200mg Take 1 [facility] 200 mg 05-11 tablet by ity of tablet 00:00: 04:59 mouth in [place] 00 :00 the [facility] morning Branch and 1 tablet in the evening. Do all this for 7 days. glucagon 0 Yes 1mg 1 mg, Univers (GLUCAGEN 3- Intramuscu ity of DIAGNOSTIC 23:22: lar, PRN, [place] KIT) 29 Starting Medical injection 1 on [facility] mg 05/10/22 at 1822, Until Discontinu ed, MALI, Blood Glucose < or = 70 mg/dL and patient is NPO, unable to swallow or has mental changes. glucagon 2022-0 Yes 1mg 1 mg, Univers (GLUCAGEN 28 Intramuscu ity of DIAGNOSTIC 23:22: [place], PRN, [place] KIT) 29 Starting Medical injection 1 on [facility] mg 05/10/22 at 1822, Until Discontinu ed, MALI, Blood Glucose < or = 70 mg/dL and patient is NPO, unable to swallow or has mental changes. ondansetron 2022- No 4mg 4 mg, Slow Univers (ZOFRAN 05-10 IV Push, ity of (PF)) 23:15: 22:24 ONCE, On [place] injection 4 00 :00 [facility] Medical mg 05/10/22 at Branch 1815, For 1 dose, PACU
Do ses of ondansetro n 16 mg and above need to be administer ed via IV piggyback. For Dose >=24mg ECG monitoring is advisable.
ondansetron 2022-0 3- No 4mg 4 mg, Slow Univers (ZOFRAN -05-10 IV Push, ity of (PF)) 23:15: 22:24 ONCE, On [place] injection 4 00 :00 e Medical mg 05/10/22 at Branch 1815, For 1 dose, PACU
Do ses of ondansetro n 16 mg and above need to be administer ed via IV piggyback. For Dose >=24mg ECG monitoring is advisable.
polyethylen 2022-0 Yes 17g 17 g, Unive rs e glycol 3- Oral, ity of 3350 powder 22:24: QDAILYPRN, [place] 17 g 28 Starting Medical on [facility] Branch 05/10/22 at 1724, Until Discontinu ed, Routine, Constipati on HYDROcodone 0 Yes 1{tbl} 1 tablet, Univers -acetaminop - Oral, ity of hen (NORCO 22:24: Q6HPRN, [place] 5) 5-325 mg 28 Starting Medi janis tablet 1 on [facility] tablet 05/10/22 at 1724, Until Discontinu ed, Routine, Pain (scale 4-6) ondansetron 2022-0 Yes 4mg 4 mg, Unive rs (ZOFRAN-ODT - Oral, ity of ) 22:24: Q6HPRN, [place] disintegrat 28 Starting Medi janis ing tablet on [facility] Branch 4 mg 05/10/22 at 1724, Until Discontinu ed, Routine, Nausea and Vomiting (N/V) polyethylen 2022-0 Yes 17g 17 g, Unive rs e glycol -28 Oral, ity of 3350 powder 22:24: QDAILYPRN, [place] 17 g 28 Starting Medical on [facility] Branch 05/10/22 at 1724, Until Discontinu ed, Routine, Constipati on HYDROcodone 2022-0 Yes 1{tbl} 1 tablet, Univers -acetaminop 3-28 Oral, ity of hen (NORCO 22:24: Q6HPRN, [place] 5) 5-325 mg 28 Starting Medi janis tablet 1 on Mon [place] tablet 05/10/22 at 1724, Until Discontinu ed, Routine, Pain (scale 4-6) ondansetron Yes 4mg 4 mg, [facility] rs (ZOFRAN-ODT 05-10 Oral, ity of ) 22:24: Q6HPRN, [place] disintegrat 28 Starting Medi janis ing tablet on Mon 4 mg 05/10/22 at 1724, Until Discontinu ed, Routine, Nausea and Vomiting (N/V) sodium 2022- No PRN, Univers chloride 05-10 Starting ity of 0.9 % 22:03: 22:30 on Mon [place] irrigation 00 :04 05/10/22 at Med ical solution 1703, Branch Until Mon05/10/22 at 1730, Intra-op insulin 2022- No 15U 15 Units, [facility] [place] [facility] ers regular 05-10 Subcutaneo ity o f human 17:15: 16:30 us, ONCE [place] (HUMULIN R) 00 :00 NOW, 1 Medica l injection dose, On Branch 15 Units Mon05/10/22 at 1215, Routine, DSU Pre-op
Indication for insulin: Hyperglyce tali insulin 2022- No 15U 15 Units, [facility] [place] [facility] ers regular 05-10 Subcutaneo ity o f human 17:15: 16:30 us, ONCE [place] (HUMULIN R) 00 :00 NOW, 1 Medica l injection dose, On Branch 15 Units Mon05/10/22 at 1215, Routine, DSU Pre-op
Indication for insulin: Hyperglyce tali lactated 2022- No 1000mL at 42 [facility] rs ringers IV 05-10 mL/hr, ity of infusion 16:15: 16:03 1,000 mL, [place] 1,000 mL 00 :00 IV Medical Infusion, Branch ONCE, 1 dose, On Mon05/10/22 at 1115, Routine, DSU Pre-op lactated 2022- No 1000mL at [facility] [place] [facility] 05-10 mL/hr, ity of infusion 16:15: 16:03 1,000 mL, [place] 1,000 mL 00 :00 IV Medical Infusion, Branch ONCE, 1 dose, On Mon05/10/22 at 1115, Routine, DSU Pre-op aspirin 325 2023-0 Yes 325mg Take 1 Uni vers mg tablet 3-28 tablet by ity o f 15:02: mouth in [place] [address] the Medical morning. Branch meclizine 2023-0 Yes 25mg Take 1 Univer s 25 mg 3-28 tablet by ity of tablet 15:02: mouth in [place] [address] the Medical morning. Branch atorvastati 2023-0 Yes 40mg Take 1 Univ ers n 40 mg 3-28 tablet by ity of tablet 15:02: mouth at [place] [address] bedtime. Medical Branch glimepiride 2023-0 Yes 2mg Take 1 Univ ers 2 mg tablet 3-28 tablet by ity of 15:02: mouth in [place] [address] the Medical morning. Branch insulin NPH 2023-0 Yes 3 (three) U nivers and regular 3-28 times ity of human 70-30 15:02: [place]. [place] (NOVOLIN 05 Medical 70/30 U-100 Branch INSULIN) 100 unit/mL (70-30) injection aspirin 325 2023-0 Yes 325mg Take 1 Uni vers mg tablet 3-14 tablet by ity o f 13:58: mouth in [place] [address] the Medical morning. Branch meclizine 2023-0 Yes 25mg Take 1 Univer s 25 mg 3-14 tablet by ity of tablet 13:58: mouth in [place] [address] the Medical morning. Branch atorvastati 2023-0 Yes 40mg Take 1 Univ ers n 40 mg 3-14 tablet by ity of tablet 13:58: mouth at [place] [address] bedtime. Medical Branch glimepiride 2023-0 Yes 2mg Take 1 Univ ers 2 mg tablet 3-14 tablet by ity of 13:58: mouth in [place] [address] the Medical morning. Branch insulin NPH 2023-0 Yes 3 (three) U nivers and regular 3-14 times ity of human 70-30 13:58: [place]. [place] (NOVOLIN 42 Medical 70/30 U-100 Branch INSULIN) 100 unit/mL (70-30) injection aspirin 325 2023-0 Yes 325mg Take 1 Uni vers mg tablet 3-14 tablet by ity o f 13:58: mouth in [place] [address] the Medical morning. Branch meclizine 2023-0 Yes 25mg Take 1 Univer s 25 mg 3-14 tablet by ity of tablet 13:58: mouth in [place] [address] the Medical morning. Branch atorvastati 2023-0 Yes 40mg Take 1 Univ ers n 40 mg 3-14 tablet by ity of tablet 13:58: mouth at [place] [address] bedtime. Medical Branch glimepiride 2023-0 Yes 2mg Take 1 Univ ers 2 mg tablet 3-14 tablet by ity of 13:58: mouth in [place] [address] the Medical morning. Branch insulin NPH 2023-0 Yes 3 (three) U nivers and regular 3-14 times ity of human 70-30 13:58: [place] (NOVOLIN 42 Medical 70/30 U-100 Branch INSULIN) 100 unit/mL (70-30) injection aspirin 325 2023-0 Yes 325mg Take 1 Uni vers mg tablet 3-14 tablet by ity o f 13:58: mouth in [place] [address] the Medical morning. Branch meclizine 2023-0 Yes 25mg Take 1 Un[facility] s 25 mg 3-14 tablet by ity of tablet 13:58: mouth in [place] [address] the Medical morning. Branch atorvastati 2023-0 Yes 40mg Take 1 Univ ers n 40 mg 3-14 tablet by ity of tablet 13:58: mouth at [place] [address] bedtime. Medical Branch glimepiride 2023-0 Yes 2mg Take 1 [facility] ers 2 mg tablet 3-14 tablet by ity of 13:58: mouth in [place] [address] the Medical morning. Branch insulin NPH 2023-0 Yes 3 (three) U nivers and regular 3-14 times ity of [place] 70-30 13:58: [place] (NOVOLIN 42 Medical 70/30 U-100 Branch INSULIN) 100 unit/mL (70-30) injection aspirin 325 2023-0 Yes 325mg Take 1 Uni vers mg tablet 3-14 tablet by ity o f 13:58: mouth in [place] [address] the Medical morning. Branch meclizine 2023-0 Yes 25mg Take 1 Un[facility] s 25 mg 3-14 tablet by ity of tablet 13:58: mouth in [place] [address] the Medical morning. Branch atorvastati 2023-0 Yes 40mg Take 1 [facility] ers n 40 mg 3-14 tablet by ity of tablet 13:58: mouth at [place] [address] bedtime. Medical Branch glimepiride 2023-0 Yes 2mg Take 1 [facility] ers 2 mg tablet 3-14 tablet by ity of 13:58: mouth in [place] [address] the Medical morning. Branch insulin NPH 2023-0 Yes 3 (three) U nivers and regular 3-14 times ity of human 70-30 13:58: [place] (NOVOLIN 42 Medical 70/30 U-100 Branch INSULIN) 100 unit/mL (70-30) injection aspirin 325 3-0 Yes 325mg Take 1 [facility] vers mg tablet 3-14 tablet by ity o f 13:58: mouth in [place] [address] the Medical morning. Branch meclizine 2023-0 Yes 25mg Take 1 Un[facility] s 25 mg 3-14 tablet by ity of tablet 13:58: mouth in [place] [address] the Medical morning. Branch atorvastati 2023-0 Yes 40mg Take 1 [facility] ers n 40 mg 3-14 tablet by ity of tablet 13:58: mouth at [place] [address] bedtime. Medical Branch glimepiride 2023-0 Yes 2mg Take 1 [facility] ers 2 mg tablet 3-14 tablet by ity of 13:58: mouth in [place] [address] the Medical morning. Branch insulin NPH 3-0 Yes 3 (three) U nivers and regular 3-14 times ity of human 70-30 13:58: [place]NOVOLIN 42 Medical 70/30 U-100 Branch INSULIN) 100 unit/mL (70-30) injection aspirin 325 3-0 Yes 325mg Take 1 [facility] vers mg tablet 3-14 tablet by ity o f 13:58: mouth in [place] [address] the Medical morning. Branch meclizine 2023-0 Yes 25mg Take 1 Un[facility] s 25 mg 3-14 tablet by ity of tablet 13:58: mouth in [place] [address] the Medical morning. Branch atorvastati 2023-0 Yes 40mg Take 1 [facility] ers n 40 mg 3-14 tablet by ity of tablet 13:58: mouth at [place] [address] bedtime. Medical Branch glimepiride 2023-0 Yes 2mg Take 1 [facility] ers 2 mg tablet 3-14 tablet by ity of 13:58: mouth in [place] [address] the Medical morning. Branch insulin NPH 2023-0 Yes 3 (three) U nivers and regular 3-14 times ity of human 70-30 13:58: [place] (NOVOLIN 42 Medical 70/30 U-100 Branch INSULIN) 100 unit/mL (70-30) injection aspirin 325 2023-0 Yes 325mg Take 1 [facility] vers mg tablet 3-14 tablet by ity o f 13:58: mouth in [place] [address] the Medical morning. Branch meclizine 2023-0 Yes 25mg Take 1 Un[facility] s 25 mg 3-14 tablet by ity of tablet 13:58: mouth in [place] [address] the Medical morning. Branch atorvastati 2023-0 Yes 40mg Take 1 [facility] ers n 40 mg 3-14 tablet by ity of tablet 13:58: mouth at [place] [address] bedtime. Medical Branch glimepiride 2023-0 Yes 2mg Take 1 [facility] ers 2 mg tablet 3-14 tablet by ity of 13:58: mouth in [place] [address] the Medical morning. Branch insulin NPH 2023-0 Yes 3 (three) U nivers and regular 3-14 times ity of human 70-30 13:58: [place]. [place] (NOVOLIN 42 Medical 70/30 U-100 Branch INSULIN) 100 unit/mL (70-30) injection aspirin 325 3-0 Yes 325mg Take 1 [facility] vers mg tablet 3-14 tablet by ity o f 13:58: mouth in [place] [address] the Medical morning. Branch meclizine 2023-0 Yes 25mg Take 1 Un[facility] s 25 mg 3-14 tablet by ity of tablet 13:58: mouth in [place] [address] the Medical morning. Branch atorvastati 2023-0 Yes 40mg Take 1 [facility] ers n 40 mg 3-14 tablet by ity of tablet 13:58: mouth at [place] [address] bedtime. Medical Branch glimepiride 2023-0 Yes 2mg Take 1 [facility] ers 2 mg tablet 3-14 tablet by ity of 13:58: mouth in [place] [address] the Medical morning. Branch insulin NPH 2023-0 Yes 3 (three) U nivers and regular 3-14 times ity of human 70-30 13:58: [place]. [place] (NOVOLIN 42 Medical 70/30 U-100 Branch INSULIN) 100 unit/mL (70-30) injection sodium 2023-0 Yes Apply to [facility] hypochlorit 3-08 area(s) ity o f e 0.125 % 00:00: daily. [place] solution 00 Medical Branch sodium 2023-0 Yes Apply to [facility] hypochlorit 3-08 area(s) ity o f e 0.125 % 00:00: daily. [place] solution 00 Medical Branch sodium 2023-0 Yes Apply to [facility] hypochlorit 3-08 area(s) ity o f e 0.125 % 00:00: daily. [place] solution 00 Medical Branch sodium 2023-0 Yes Apply to [facility] hypochlorit 3-08 area(s) ity o f e 0.125 % 00:00: daily. [place] solution 00 Medical Branch sodium 2023-0 Yes Apply to [facility] hypochlorit 3-08 area(s) ity o f e 0.125 % 00:00: daily. [place] solution 00 Medical Branch sodium 2023-0 Yes Apply to [facility] hypochlorit 3-08 area(s) ity o f e 0.125 % 00:00: daily. [place] solution 00 Medical Branch sodium 2023-0 Yes Apply to Univer s hypochlorit 3-08 area(s) ity o f e 0.125 % 00:00: daily. [place] solution 00 Medical Branch sodium 2023-0 Yes Apply to [facility] hypochlorit 3-08 area(s) ity o f e 0.125 % 00:00: daily. [place] solution 00 Medical Branch sodium 2023-0 Yes Apply to [facility] hypochlorit 3-08 area(s) ity o f e 0.125 % 00:00: daily. [place] solution 00 Medical Branch sodium 2023-0 Yes Apply to [facility] hypochlorit 3-08 area(s) ity o f e 0.125 % 00:00: daily. [place] solution 00 Medical Branch sodium 2023-0 Yes Apply to [facility] hypochlorit 3-08 area(s) ity o f e 0.125 % 00:00: daily. [place] solution 00 Medical Branch sodium 2023-0 Yes Apply to [facility] hypochlorit 3-08 area(s) ity o f e 0.125 % 00:00: daily. [place] solution 00 Medical Branch sodium 2023-0 Yes Apply to [facility] hypochlorit 3-08 area(s) ity o f e 0.125 % 00:00: daily. [place] solution 00 Medical Branch sodium 2023-0 Yes Apply to [facility] hypochlorit 3-08 area(s) ity o f e 0.125 % 00:00: daily. [place] solution 00 Medical Branch sodium 2023-0 Yes Apply to [facility] hypochlorit 3-08 area(s) ity o f e 0.125 % 00:00: daily. [place] solution 00 Medical Branch sodium 2023-0 Yes Apply to [facility] hypochlorit 3-08 area(s) ity o f e 0.125 % 00:00: daily. [place] solution 00 Medical Branch sodium 2023-0 Yes Apply to [facility] hypochlorit 3-08 area(s) ity o f e 0.125 % 00:00: daily. [place] solution 00 Medical Branch sodium 2023-0 Yes Apply to [facility] hypochlorit 3-08 area(s) ity o f e 0.125 % 00:00: daily. [place] solution 00 Medical Branch sodium 2023-0 Yes Apply to [facility] hypochlorit 3-08 area(s) ity o f e 0.125 % 00:00: daily. [place] solution 00 Medical Branch sodium 2023-0 Yes Apply to [facility] hypochlorit 3-08 area(s) ity o f e 0.125 % 00:00: daily. [place] solution 00 Medical Branch sodium 2023-0 Yes Apply to [facility] hypochlorit 3-08 area(s) ity o f e 0.125 % 00:00: daily. [place] solution 00 Medical Branch sodium 2023-0 Yes Apply to [facility] hypochlorit 3-08 area(s) ity o f e 0.125 % 00:00: daily. [place] solution 00 Medical Branch sodium 2023-0 Yes Apply to [facility] hypochlorit 3-08 area(s) ity o f e 0.125 % 00:00: daily. [place] solution 00 Medical Branch sodium 2023-0 Yes Apply to [facility] hypochlorit 3-08 area(s) ity o f e 0.125 % 00:00: daily. [place] solution 00 Medical Branch sodium 2023-0 Yes Apply to [facility] hypochlorit 3-08 area(s) ity o f e 0.125 % 00:00: daily. [place] solution 00 Medical Branch sodium 2023-0 Yes Apply to [facility] hypochlorit 3-08 area(s) ity o f e 0.125 % 00:00: daily. [place] solution 00 Medical Branch sodium 2023-0 Yes Apply to [facility] hypochlorit 3-08 area(s) ity o f e 0.125 % 00:00: daily. [place] solution 00 Medical Branch sodium 3-0 Yes Apply to [facility] hypochlorit 3-08 area(s) ity o f e 0.125 % 00:00: daily. [place] solution 00 Medical Branch sodium 3-0 Yes Apply to [facility] hypochlorit 3-08 area(s) ity o f e 0.125 % 00:00: daily. [place] solution 00 Medical Branch sodium 3-0 Yes Apply to [facility] hypochlorit 3-08 area(s) ity o f e 0.125 % 00:00: daily. [place] solution 00 Medical Branch sodium 2023-0 Yes Apply to [facility] hypochlorit 3-08 area(s) ity o f e 0.125 % 00:00: daily. [place] solution 00 Medical Branch sodium 3-0 Yes Apply to [facility] hypochlorit 3-08 area(s) ity o f e 0.125 % 00:00: daily. [place] solution 00 Medical Branch sodium 3-0 Yes Apply to [facility] hypochlorit 3-08 area(s) ity o f e 0.125 % 00:00: daily. [place] solution 00 Medical Branch sodium 3-0 Yes Apply to [facility] hypochlorit 3-08 area(s) ity o f e 0.125 % 00:00: daily. [place] solution 00 Medical Branch sodium 2023-0 2022- No Apply to Univer s hypochlorit 3-08 06-24 area(s) ity of e 0.125 % 00:00: 00:00 daily. [place] solution 00 :00 Medical Branch NaCl 0.9% 2022-0 Yes Infuse Univer s (NS) PgBk 3-05 every 24 ity of 50 mL with 00:00: (twenty[place] ertapenem 1 00 ur) hours. Me dical gram SolR Through Branch 04/19 sennosides- 2022-0 Yes [id number] 2{tbl} Take 2 Univers docusate 3-05 tablets by ity o f sodium 00:00: mouth in [place] 8.6-50 mg 00 the Medical per tablet morning. Branc h NaCl 0.9% 2022-0 Yes Infuse Univer s (NS) PgBk 3-05 every 24 ity of 50 mL with 00:00: (twenty-[place] ertapenem 1 00 ur) hours. Me dical gram SolR Through Branch 3/7 sennosides- 0 Yes [id number] 2{tbl} Take 2 Univers docusate 3-05 tablets by ity o f sodium 00:00: mouth in [place] 8.6-50 mg 00 the Medical per tablet morning. Branc h NaCl 0.9% 2022-0 Yes Infuse Univer s (NS) PgBk 3-05 every 24 ity of 50 mL with 00:00: (twenty-[place] ertapenem 1 00 ur) hours. Me dical gram SolR Through Branch 37 sennosides- Yes [id number] 2{tbl} Take 2 [facility] docusate 3-05 tablets by ity o f sodium 00:00: mouth in [place] 8.6-50 mg 00 the Medical per tablet morning. Branc h NaCl 0.9% 2022-0 Yes Infuse Univer s (NS) PgBk 3-05 every 24 ity of 50 mL with 00:00: (twenty-[place] ertapenem 1 00 ur) hours. Me dical gram SolR Through Branch 3/7 sennosides- Yes [id number] 2{tbl} Take 2 [facility] docusate 3-05 tablets by ity o f sodium 00:00: mouth in [place] 8.6-50 mg 00 the Medical per tablet morning. Branc h NaCl 0.9% 2022-0 Yes Infuse Univer s (NS) PgBk 3-05 every 24 ity of 50 mL with 00:00: (twenty-[place] ertapenem 1 00 ur) hours. Me dical gram SolR Through Branch 3/7 sennosides- 2022-0 Yes [id number] 2{tbl} Take 2 [facility] docusate 3-05 tablets by ity o f sodium 00:00: mouth in [place] 8.6-50 mg 00 the Medical per tablet morning. Branc h NaCl 0.9% 2022-0 Yes Infuse Univer s (NS) PgBk 3-05 every 24 ity of 50 mL with 00:00: (twenty-[place] ertapenem 1 00 ur) hours. Me dical gram SolR Through Branch 3/7 sennosides- 0 Yes [id number] 2{tbl} Take 2 [facility] docusate 3-05 tablets by ity o f sodium 00:00: mouth in [place] 8.6-50 mg 00 the Medical per tablet morning. Branc h NaCl 0.9% 2022-0 Yes Infuse Univer s (NS) PgBk 3-05 every 24 ity of 50 mL with 00:00: (twenty-[place] ertapenem 1 00 ur) hours. Me dical gram SolR Through Branch 37 sennosides- 0 Yes [id number] 2{tbl} Take 2 Univers docusate 3-05 tablets by ity o f sodium 00:00: mouth in [place] 8.6-50 mg 00 the Medical per tablet morning. Branc h NaCl 0.9% 2022-0 Yes Infuse Univer s (NS) PgBk 3-05 every 24 ity of 50 mL with 00:00: (twenty-[place] ertapenem 1 00 ur) hours. Me dical gram SolR Through Branch 3/7 sennosides- 0 Yes [id number] 2{tbl} Take 2 Univers docusate 3-05 tablets by ity o f sodium 00:00: mouth in [place] 8.6-50 mg 00 the Medical per tablet morning. Branc h NaCl 0.9% 2022-0 Yes Infuse Univer s (NS) PgBk 3-05 every 24 ity of 50 mL with 00:00: (twenty-[place] ertapenem 1 00 ur) hours. Me dical gram SolR Through Branch 3/7 sennosides- 0 Yes [id number] 2{tbl} Take 2 Univers docusate 3-05 tablets by ity o f sodium 00:00: mouth in [place] 8.6-50 mg 00 the Medical per tablet morning. Branc h NaCl 0.9% 0 Yes Infuse Univer s (NS) PgBk 3-05 every 24 ity of 50 mL with 00:00: (twenty-[place] ertapenem 1 00 ur) hours. Me dical gram SolR Through Branch 37 [facility]- Yes [id number] 2{tbl} Take 2 Univers docusate 3-05 tablets by ity o f sodium 00:00: mouth in [place] 8.6-50 mg 00 the Medical per tablet morning. Branc h NaCl 0.9% 2022-0 Yes Infuse Univer s (NS) PgBk 3-05 every 24 ity of 50 mL with 00:00: (twenty-[place] ertapenem 1 00 ur) hours. Me dical gram SolR Through Branch 04/19 [facility]- Yes [id number] 2{tbl} Take 2 Univers docusate 3-05 tablets by ity o f sodium 00:00: mouth in [place] 8.6-50 mg 00 the Medical per tablet morning. Branc h NaCl 0.9% 2022-0 Yes Infuse Univer s (NS) PgBk 3-05 every 24 ity of 50 mL with 00:00: (twenty-[place] ertapenem 1 00 ur) hours. Me dical gram SolR Through Branch 37 [facility]- Yes [id number] 2{tbl} Take 2 Univers docusate 3-05 tablets by ity o f sodium 00:00: mouth in [place] 8.6-50 mg 00 the Medical per tablet morning. Branc h NaCl 0.9% 0 Yes Infuse Univer s (NS) PgBk 3-05 every 24 ity of 50 mL with 00:00: (twenty-[place] ertapenem 1 00 ur) hours. Me dical gram SolR Through Branch 37 sennosides- Yes [id number] 2{tbl} Take 2 Univers docusate 3-05 tablets by ity o f sodium 00:00: mouth in [place] 8.6-50 mg 00 the Medical per tablet morning. Branc h NaCl 0.9% 2022-0 Yes Infuse Univer s (NS) PgBk 3-05 every 24 ity of 50 mL with 00:00: (twenty-[place] ertapenem 1 00 ur) hours. Me dical gram SolR Through Branch 3/7 sennosides- 0 Yes [id number] 2{tbl} Take 2 Univers docusate 3-05 tablets by ity o f sodium 00:00: mouth in [place] 8.6-50 mg 00 the Medical per tablet morning. Branc h NaCl 0.9% 0 Yes Infuse Univer s (NS) PgBk 3-05 every 24 ity of 50 mL with 00:00: (twenty-[place] ertapenem 1 00 ur) hours. Me dical gram SolR Through Branch 3/7 sennosides- Yes [id number] 2{tbl} Take 2 Univers docusate 3-05 tablets by ity o f sodium 00:00: mouth in [place] 8.6-50 mg 00 the Medical per tablet morning. Branc h NaCl 0.9% 0 Yes Infuse Univer s (NS) PgBk 3-05 every 24 ity of 50 mL with 00:00: (twenty-[place] ertapenem 1 00 ur) hours. Me dical gram SolR Through Branch 3/7 sennosides- Yes [id number] 2{tbl} Take 2 Univers docusate 3-05 tablets by ity o f sodium 00:00: mouth in [place] 8.6-50 mg 00 the Medical per tablet morning. Branc h NaCl 0.9% 0 Yes Infuse Univer s (NS) PgBk 3-05 every 24 ity of 50 mL with 00:00: (twenty-[place] ertapenem 1 00 ur) hours. Me dical gram SolR Through Branch 3/7 sennosides- 2022-0 Yes [id number] 2{tbl} Take 2 Univers docusate 3-05 tablets by ity o f sodium 00:00: mouth in [place] 8.6-50 mg 00 the Medical per tablet morning. Branc h sennosides- 2022-0 Yes [id number] 2{tbl} Take 2 Univers docusate 3-05 tablets by ity o f sodium 00:00: mouth in [place] 8.6-50 mg 00 the Medical per tablet morning. [facility] sennosides- 2022-0 Yes [id number] 2{tbl} Take 2 Univers docusate 3-05 tablets by ity o f sodium 00:00: mouth in [place] 8.6-50 mg 00 the Medical per tablet morning. [facility] sennosides- 2022-0 Yes [id number] 2{tbl} Take 2 Univers docusate 3-05 tablets by ity o f sodium 00:00: mouth in [place] 8.6-50 mg 00 the Medical per tablet morning. [facility] sennosides- 2022-0 Yes [id number] 2{tbl} Take 2 Univers docusate 3-05 tablets by ity o f sodium 00:00: mouth in [place] 8.6-50 mg 00 the Medical per tablet morning. [facility] sennosides- 2022-0 Yes [id number] 2{tbl} Take 2 Univers docusate 3-05 tablets by ity o f sodium 00:00: mouth in [place] 8.6-50 mg 00 the Medical per tablet morning. [facility] sennosides- 2022-0 Yes [id number] 2{tbl} Take 2 Univers docusate 3-05 tablets by ity o f sodium 00:00: mouth in [place] 8.6-50 mg 00 the Medical per tablet morning. [facility] sennosides- 2022-0 Yes [id number] 2{tbl} Take 2 Univers docusate 3-05 tablets by ity o f sodium 00:00: mouth in [place] 8.6-50 mg 00 the Medical per tablet morning. [facility] sennosides- 2022-0 Yes [id number] 2{tbl} Take 2 Univers docusate 3-05 tablets by ity o f sodium 00:00: mouth in [place] 8.6-50 mg 00 the Medical per tablet morning. [facility] sennosides- 2022-0 Yes [id number] 2{tbl} Take 2 Univers docusate 3-05 tablets by ity o f sodium 00:00: mouth in [place] 8.6-50 mg 00 the Medical per tablet morning. [facility] sennosides- 2022-0 Yes [id number] 2{tbl} Take 2 Univers docusate 3-05 tablets by ity o f sodium 00:00: mouth in [place] 8.6-50 mg 00 the Medical per tablet morning. [facility] sennosides- 2022-0 Yes [id number] 2{tbl} Take 2 Univers docusate 3-05 tablets by ity o f sodium 00:00: mouth in [place] 8.6-50 mg 00 the Medical per tablet morning. [facility] sennosides- 2022-0 Yes [id number] 2{tbl} Take 2 Univers docusate 3-05 tablets by ity o f sodium 00:00: mouth in [place] 8.6-50 mg 00 the Medical per tablet morning. [facility] sennosides- 2022-0 Yes [id number] 2{tbl} Take 2 Univers docusate 3-05 tablets by ity o f sodium 00:00: mouth in [place] 8.6-50 mg 00 the Medical per tablet morning. [facility] sennosides- 2022-0 Yes [id number] 2{tbl} Take 2 Univers docusate 3-05 tablets by ity o f sodium 00:00: mouth in [place] 8.6-50 mg 00 the Medical per tablet morning. [facility] sennosides- 2022-0 Yes [id number] 2{tbl} Take 2 Univers docusate 3-05 tablets by ity o f sodium 00:00: mouth in [place] 8.6-50 mg 00 the Medical per tablet morning. [facility] sennosides- 2022-0 Yes [id number] 2{tbl} Take 2 Univers docusate 3-05 tablets by ity o f sodium 00:00: mouth in [place] 8.6-50 mg 00 the Medical per tablet morning. [facility] sennosides- 2022-0 Yes [id number] 2{tbl} Take 2 Univers docusate 3-05 tablets by ity o f sodium 00:00: mouth in [place] 8.6-50 mg 00 the Medical per tablet morning. [facility] sennosides- 2022-0 Yes [id number] 2{tbl} Take 2 Univers docusate 3-05 tablets by ity o f sodium 00:00: mouth in [place] 8.6-50 mg 00 the Medical per tablet morning. [facility] sennosides- 2022-0 Yes [id number] 2{tbl} Take 2 Univers docusate 3-05 tablets by ity o f sodium 00:00: mouth in [place] 8.6-50 mg 00 the Medical per tablet morning. [facility] sennosides- 2022-0 Yes [id number] 2{tbl} Take 2 Univers docusate 3-05 tablets by ity o f sodium 00:00: mouth in [place] 8.6-50 mg 00 the Medical per tablet morning. [facility] sennosides- 2022-0 Yes [id number] 2{tbl} Take 2 Univers docusate 3-05 tablets by ity o f sodium 00:00: mouth in [place] 8.6-50 mg 00 the Medical per tablet morning. [facility] sennosides- 2022-0 Yes [id number] 2{tbl} Take 2 Univers docusate 3-05 tablets by ity o f sodium 00:00: mouth in [place] 8.6-50 mg 00 the Medical per tablet morning. [facility] sennosides- 0 Yes [id number] 2{tbl} Take 2 Univers docusate 3-05 tablets by ity o f sodium 00:00: mouth in [place] 8.6-50 mg 00 the Medical per tablet morning. [facility] sennosides- 2022-0 Yes [id number] 2{tbl} Take 2 Univers docusate 3-05 tablets by ity o f sodium 00:00: mouth in [place] 8.6-50 mg 00 the Medical per tablet morning. [facility] sennosides- 0 Yes [id number] 2{tbl} Take 2 Univers docusate 3-05 tablets by ity o f sodium 00:00: mouth in [place] 8.6-50 mg 00 the Medical per tablet morning. [facility] sennosides- 2022-0 Yes [id number] 2{tbl} Take 2 Univers docusate 3-05 tablets by ity o f sodium 00:00: mouth in [place] 8.6-50 mg 00 the Medical per tablet morning. [facility] h sennosides- 0 Yes [id number] 2{tbl} Take 2 Univers docusate 3-05 tablets by ity o f sodium 00:00: mouth in [place] 8.6-50 mg 00 the Medical per tablet morning. [facility] sennosides- 2022-0 Yes [id number] 2{tbl} Take 2 Univers docusate 3-05 tablets by ity o f sodium 00:00: mouth in [place] 8.6-50 mg 00 the Medical per tablet morning. [facility] aditinosides- 2022-0 Yes [id number] 2{tbl} Take 2 Univers docusate 3-05 tablets by ity o f sodium 00:00: mouth in [place] 8.6-50 mg 00 the Medical per tablet morning. [facility] levisides- 2022-0 Yes [id number] 2{tbl} Take 2 Univers docusate 3-05 tablets by ity o f sodium 00:00: mouth in [place] 8.6-50 mg 00 the Medical per tablet morning. [facility] levisides- 0 Yes [id number] 2{tbl} Take 2 Univers docusate 3-05 tablets by ity o f sodium 00:00: mouth in [place] 8.6-50 mg 00 the Medical per tablet morning. [facility] levisides- 0 Yes [id number] 2{tbl} Take 2 Univers docusate 3-05 tablets by ity o f sodium 00:00: mouth in [place] 8.6-50 mg 00 the Medical per tablet morning. [facility] levisides- 0 Yes [id number] 2{tbl} Take 2 Univers docusate 3-05 tablets by ity o f sodium 00:00: mouth in [place] 8.6-50 mg 00 the Medical per tablet morning. [facility] levisides- 2022-0 Yes [id number] 2{tbl} Take 2 Univers docusate 3-05 tablets by ity o f sodium 00:00: mouth in [place] 8.6-50 mg 00 the Medical per tablet morning. [facility] sennosides- 2022-0 Yes [id number] 2{tbl} Take 2 Univers docusate 3-05 tablets by ity o f sodium 00:00: mouth in [place] 8.6-50 mg 00 the Medical per tablet morning. [facility] sennosides- 2022-0 Yes [id number] 2{tbl} Take 2 Univers docusate 3-05 tablets by ity o f sodium 00:00: mouth in [place] 8.6-50 mg 00 the Medical per tablet morning. [facility] sennosides- 2022-0 Yes [id number] 2{tbl} Take 2 Univers docusate 3-05 tablets by ity o f sodium 00:00: mouth in [place] 8.6-50 mg 00 the Medical per tablet morning. [facility] sennosides- 2022-0 Yes [id number] 2{tbl} Take 2 [facility] docusate 3-05 tablets by ity o f sodium 00:00: mouth in [place] 8.6-50 mg 00 the Medical per tablet morning. [facility] sennosides- 2022-0 Yes [id number] 2{tbl} Take 2 [facility] docusate 3-05 tablets by ity o f sodium 00:00: mouth in [place] 8.6-50 mg 00 the Medical per tablet morning. [facility] sennosides- 2022-0 Yes [id number] 2{tbl} Take 2 [facility] docusate 3-05 tablets by ity o f sodium 00:00: mouth in [place] 8.6-50 mg 00 the Medical per tablet morning. [facility] sennosides- 2022-0 Yes [id number] 2{tbl} Take 2 [facility] docusate 3-05 tablets by ity o f sodium 00:00: mouth in [place] 8.6-50 mg 00 the Medical per tablet morning. [facility] sennosides- 2022-0 Yes [id number] 2{tbl} Take 2 [facility] docusate 3-05 tablets by ity o f sodium 00:00: mouth in [place] 8.6-50 mg 00 the Medical per tablet morning. [facility] sennosides- Yes [id number] 2{tbl} Take 2 [facility] docusate 3-05 tablets by ity o f sodium 00:00: mouth in [place] 8.6-50 mg 00 the Medical per tablet morning. [facility] NaCl 0.9% 2022- No Infuse Unive rs (NS) PgBk 3-05-11 every 24 ity o f 50 mL with 00:00: 00:00 (twenty- [place] ertapenem 1 00 :00 ur) hours. Me dical gram SolR Through Branch 04/19 NaCl 0.9% 2022- No Infuse Unive rs (NS) PgBk 04-17-29 every 24 ity o f 50 mL with 00:00: 00:00 (twenty-fo [place] ertapenem 1 00 :00 ur) hours. Me dical gram SolR Through Branch 04/19 sodium 2022- No [id number] Apply to U nivers hypochlorit 04-17 03-04 area(s) ity of e 0.125 % 00:00: 00:00 daily. [place] solution 00 :00 Medical Branch sodium Yes Topical, [facility] hypochlorit 3-04 DAILY, ity of e 0.125 % 15:00: [place] ([facility] 00 on Sat Medical SOLUTION) 04/16/22 at [facility] h solution 0900, Until Discontinu ed, Routine aspirin 325 Yes 1{tbl} Take 1 Un tabitha mg tablet 3-04 tablet by ity o f 14:12: mouth in [place] [address] the Medical morning. Branch meclizine Yes 1{tbl} Take 1 Univ ers 25 mg 3-04 tablet by ity of tablet 14:12: mouth in [place] [address] the Medical morning. Branch atorvastati Yes 1{tbl} Take 1 Un tabitha n 40 mg 3-04 tablet by ity of tablet 14:12: mouth at [place] [address] bedtime. Medical Branch glimepiride Yes 1{tbl} Take 1 Un tabitha 2 mg tablet 3-04 tablet by ity of 14:12: mouth in [place] [address] the Medical morning. Branch insulin NPH Yes 3 (three) U nivers and regular 3-04 times ity of human 70-30 14:12: [place] (NOVOLIN 15 Medical 70/30 U-100 Branch INSULIN) 100 unit/mL (70-30) injection aspirin 325 Yes 1{tbl} Take 1 Un tabitha mg tablet 3-04 tablet by ity o f 14:12: mouth in [place] [address] the Medical morning. Branch meclizine Yes 1{tbl} Take 1 Univ ers 25 mg 3-04 tablet by ity of tablet 14:12: mouth in [place] [address] the Medical morning. Branch atorvastati 2023-0 Yes 1{tbl} Take 1 Un tabitha n 40 mg 3-04 tablet by ity of tablet 14:12: mouth at [place] 15 bedtime. Medical Branch glimepiride 2022-0 Yes 1{tbl} Take 1 Un tabitha 2 mg tablet 3-04 tablet by ity of 14:12: mouth in [place] 15 the Medical morning. Branch insulin NPH 2022-0 Yes 3 (three) U nivers and regular 3-04 times ity of human 70-30 14:12: [place] (NOVOLIN 15 Medical 70/30 U-100 Branch INSULIN) 100 unit/mL (70-30) injection aspirin 325 2022-0 Yes 1{tbl} Take 1 Un tabitha mg tablet 3-04 tablet by ity o f 14:12: mouth in [place] 15 the Medical morning. Branch meclizine 2022-0 Yes 1{tbl} Take 1 Univ ers 25 mg 3-04 tablet by ity of tablet 14:12: mouth in [place] 15 the Medical morning. Branch atorvastati 2022-0 Yes 1{tbl} Take 1 Un tabitha n 40 mg 3-04 tablet by ity of tablet 14:12: mouth at [place] 15 bedtime. Medical Branch glimepiride 0 Yes 1{tbl} Take 1 Un tabitha 2 mg tablet 3-04 tablet by ity of 14:12: mouth in [place] 15 the Medical morning. Branch insulin NPH 2022-0 Yes 3 (three) U nivers and regular 3-04 times ity of human 70-30 14:12: [place] (NOVOLIN 15 Medical 70/30 U-100 Branch INSULIN) 100 unit/mL (70-30) injection aspirin 325 2022-0 Yes 1{tbl} Take 1 Un tabitha mg tablet 3-04 tablet by ity o f 14:12: mouth in [place] 15 the Medical morning. Branch meclizine 2022-0 Yes 1{tbl} Take 1 Univ ers 25 mg 3-04 tablet by ity of tablet 14:12: mouth in [place] 15 the Medical morning. Branch atorvastati 2022-0 Yes 1{tbl} Take 1 Un tabitha n 40 mg 3-04 tablet by ity of tablet 14:12: mouth at [place] 15 bedtime. Medical Branch glimepiride 2022-0 Yes 1{tbl} Take 1 Un tabitha 2 mg tablet 3-04 tablet by ity of 14:12: mouth in [place] 15 the Medical morning. Branch insulin NPH 0 Yes 3 (three) U nivers and regular 3-04 times ity of human 70-30 14:12: [place] (NOVOLIN 15 Medical 70/30 U-100 Branch INSULIN) 100 unit/mL (70-30) injection aspirin 325 2022-0 Yes 1{tbl} Take 1 Un tabitha mg tablet 3-04 tablet by ity o f 14:12: mouth in [place] 15 the Medical morning. Branch meclizine 2022-0 Yes 1{tbl} Take 1 Univ ers 25 mg 3-04 tablet by ity of tablet 14:12: mouth in [place] [address] the Medical morning. Branch atorvastati 2022-0 Yes 1{tbl} Take 1 Un tabitha n 40 mg 3-04 tablet by ity of tablet 14:12: mouth at [place] [address] bedtime. Medical Branch glimepiride 0 Yes 1{tbl} Take 1 Un tabitha 2 mg tablet 3-04 tablet by ity of 14:12: mouth in [place] [address] the Medical morning. Branch insulin NPH 0 Yes 3 (three) U nivers and regular 3-04 times ity of human 70-30 14:12: [place] (NOVOLIN 15 Medical 70/30 U-100 Branch INSULIN) 100 unit/mL (70-30) injection aspirin 325 2022-0 Yes 1{tbl} Take 1 Un tabitha mg tablet 3-04 tablet by ity o f 14:12: mouth in [place] 15 the Medical morning. Branch meclizine 2022-0 Yes 1{tbl} Take 1 Univ ers 25 mg 3-04 tablet by ity of tablet 14:12: mouth in [place] [address] the Medical morning. Branch atorvastati 2022-0 Yes 1{tbl} Take 1 Un tabitha n 40 mg 3-04 tablet by ity of tablet 14:12: mouth at [place] [address] bedtime. Medical Branch glimepiride 2022-0 Yes 1{tbl} Take 1 Un tabitha 2 mg tablet 3-04 tablet by ity of 14:12: mouth in [place] 15 the Medical morning. Branch insulin NPH 2022-0 Yes 3 (three) U nivers and regular 3-04 times ity of human 70-30 14:12: [place] (NOVOLIN 15 Medical 70/30 U-100 Branch INSULIN) 100 unit/mL (70-30) injection aspirin 325 2022-0 Yes 1{tbl} Take 1 Un tabitha mg tablet 3-04 tablet by ity o f 14:12: mouth in [place] 15 the Medical morning. Branch meclizine 2022-0 Yes 1{tbl} Take 1 Univ ers 25 mg 3-04 tablet by ity of tablet 14:12: mouth in [place] 15 the Medical morning. Branch atorvastati 2022-0 Yes 1{tbl} Take 1 Un tabitha n 40 mg 3-04 tablet by ity of tablet 14:12: mouth at [place] [address] bedtime. Medical Branch glimepiride 2022-0 Yes 1{tbl} Take 1 Un tabitha 2 mg tablet 3-04 tablet by ity of 14:12: mouth in [place] [address] the Medical morning. Branch insulin NPH 2022-0 Yes 3 (three) U nivers and regular 3-04 times ity of human 70-30 14:12: [place]. [place] (NOVOLIN 15 Medical 70/30 U-100 Branch INSULIN) 100 unit/mL (70-30) injection aspirin 325 2022-0 Yes 1{tbl} Take 1 Un tabitha mg tablet 3-04 tablet by ity o f 14:12: mouth in [place] [address] the Medical morning. Branch meclizine 2022-0 Yes 1{tbl} Take 1 Univ ers 25 mg 3-04 tablet by ity of tablet 14:12: mouth in [place] [address] the Medical morning. Branch atorvastati 2022-0 Yes 1{tbl} Take 1 Un tabitha n 40 mg 3-04 tablet by ity of tablet 14:12: mouth at [place] [address] bedtime. Medical Branch glimepiride 2022-0 Yes 1{tbl} Take 1 Un tabitha 2 mg tablet 3-04 tablet by ity of 14:12: mouth in [place] [address] the Medical morning. Branch insulin NPH 2022-0 Yes 3 (three) U nivers and regular 3-04 times ity of human 70-30 14:12: [place] (NOVOLIN 15 Medical 70/30 U-100 Branch INSULIN) 100 unit/mL (70-30) injection aspirin 325 0 Yes 1{tbl} Take 1 Un tabitha mg tablet 3-04 tablet by ity o f 14:12: mouth in [place] 15 the Medical morning. Branch meclizine Yes 1{tbl} Take 1 Univ ers 25 mg 3-04 tablet by ity of tablet 14:12: mouth in [place] 15 the Medical morning. Branch atorvastati 0 Yes 1{tbl} Take 1 Un tabitha n 40 mg 3-04 tablet by ity of tablet 14:12: mouth at [place] 15 bedtime. Medical Branch glimepiride Yes 1{tbl} Take 1 Un tabitha 2 mg tablet 3-04 tablet by ity of 14:12: mouth in [place] 15 the Medical morning. Branch insulin NPH Yes 3 (three) U nivers and regular 3-04 times ity of human 70-30 14:12: [place] (NOVOLIN 15 Medical 70/30 U-100 Branch INSULIN) 100 unit/mL (70-30) injection diphenhydrA Yes 25mg 25 mg, Univ ers MINE 3-04 Oral, ity of (BENADRYL) 03:53: [id number], [place] tablet 25 50 Starting Medica l mg on Mon Branch 04/15/22 at 2153, Until Discontinu ed, Routine, Itching gabapentin 0 Yes [id number] 300mg Take 1 [facility] 300 mg 3-04 capsule by ity of capsule 00:00: mouth in [place] 00 the Medical morning Branch and 1 capsule at noon and 1 capsule in the evening. methocarbam 0 Yes [id number] 750mg Take 1 [facility] oL 750 mg 3-04 tablet by ity o f tablet 00:00: mouth 4 [place] 00 (four) Medical times Branch daily. HYDROcodone 2022-0 Yes [id number] 1{tbl} Take 1 Un tabitha -acetaminop 3-04 tablet by ity of hen 5-325 00:00: mouth [place] mg tablet 00 every 6 Medical (six) Branch hours as needed for Pain (scale 4-6) or Pain (scale 7-10). Indication s: acute pain gabapentin 2022-0 Yes [id number] 300mg Take 1 [facility] 300 mg 3-04 capsule by ity of capsule 00:00: mouth in [place] the Medical morning Branch and 1 capsule at noon and 1 capsule in the evening. methocarbam 2023-0 Yes [id number] 750mg Take 1 [facility] oL 750 mg 3-04 tablet by ity o f tablet 00:00: mouth (four) Medical times Branch daily. HYDROcodone 2023-0 Yes [id number] 1{tbl} Take 1 Un tabitha -acetaminop 3-04 tablet by ity of hen 5-325 00:00: mouth [place] mg tablet 00 every 6 Medical (six) Branch hours as needed for Pain (scale 4-6) or Pain (scale 7-10). Indication s: acute pain gabapentin 2023-0 Yes [id number] 300mg Take 1 [facility] 300 mg 3-04 capsule by ity of capsule 00:00: mouth in [place] the Medical morning Branch and 1 capsule at noon and 1 capsule in the evening. methocarbam 2023-0 Yes [id number] 750mg Take 1 [facility] oL 750 mg 3-04 tablet by ity o f tablet 00:00: mouth () Medical times Branch daily. HYDROcodone 2023-0 Yes [id number] 1{tbl} Take 1 Un tabitha -acetaminop 3-04 tablet by ity of hen 5-325 00:00: mouth [place] mg tablet 00 every 6 Medical (six) Branch hours as needed for Pain (scale 4-6) or Pain (scale 7-10). Indication s: acute pain gabapentin 2023-0 Yes [id number] 300mg Take 1 [facility] 300 mg 3-04 capsule by ity of capsule 00:00: mouth in [place] the Medical morning Branch and 1 capsule at noon and 1 capsule in the evening. methocarbam 2023-0 Yes [id number] 750mg Take 1 [facility] oL 750 mg 3-04 tablet by ity o f tablet 00:00: mouth (four) Medical times Branch daily. HYDROcodone 2023-0 Yes [id number] 1{tbl} Take 1 Un tabitha -acetaminop 3-04 tablet by ity of hen 5-325 00:00: mouth [place] mg tablet 00 every 6 Medical (six) Branch hours as needed for Pain (scale 4-6) or Pain (scale 7-10). Indication s: acute pain gabapentin 2023-0 Yes [id number] 300mg Take 1 [facility] 300 mg 3-04 capsule by ity of capsule 00:00: mouth in [place] 00 the Medical morning Branch and 1 capsule at noon and 1 capsule in the evening. methocarbam 2023-0 Yes [id number] 750mg Take 1 [facility] oL 750 mg 3-04 tablet by ity o f tablet 00:00: mouth 4 (four) Medical times Branch daily. HYDROcodone 2023-0 Yes 4647 1{tbl} Take 1 Un tabitha -acetaminop 3-04 tablet by ity of hen 5-325 00:00: mouth [place] mg tablet 00 every 6 Medical (six) Branch hours as needed for Pain (scale 4-6) or Pain (scale 7-10). Indication s: acute pain gabapentin 2023-0 Yes [id number] 300mg Take 1 [facility] 300 mg 3-04 capsule by ity of capsule 00:00: mouth in [place] the Medical morning Branch and 1 capsule at noon and 1 capsule in the evening. methocarbam 2023-0 Yes [id number] 750mg Take 1 [facility] oL 750 mg 3-04 tablet by ity o f tablet 00:00: mouth (four) Medical times Branch daily. HYDROcodone 2023-0 Yes [id number] 1{tbl} Take 1 Un tabitha -acetaminop 3-04 tablet by ity of hen 5-325 00:00: mouth [place] mg tablet 00 every 6 Medical (six) Branch hours as needed for Pain (scale 4-6) or Pain (scale 7-10). Indication s: acute pain gabapentin 2023-0 Yes [id number] 300mg Take 1 [facility] 300 mg 3-04 capsule by ity of capsule 00:00: mouth in [place] the Medical morning Branch and 1 capsule at noon and 1 capsule in the evening. methocarbam 2023-0 Yes [id number] 750mg Take 1 [facility] oL 750 mg 3-04 tablet by ity o f tablet 00:00: mouth 4 (four) Medical times Branch daily. HYDROcodone 2023-0 Yes 4647 1{tbl} Take 1 Un tabitha -acetaminop 3-04 tablet by ity of hen 5-325 00:00: mouth [place] mg tablet 00 every 6 Medical (six) Branch hours as needed for Pain (scale 4-6) or Pain (scale 7-10). Indication s: acute pain gabapentin 2023-0 Yes [id number] 300mg Take 1 [facility] 300 mg 3-04 capsule by ity of capsule 00:00: mouth in 00 the Medical morning Branch and 1 capsule at noon and 1 capsule in the evening. methocarbam 2023-0 Yes [id number] 750mg Take 1 [facility] oL 750 mg 3-04 tablet by ity o f tablet 00:00: mouth 4 (four) Medical times Branch daily. HYDROcodone 2023-0 Yes [id number] 1{tbl} Take 1 Un tabitha -acetaminop 3-04 tablet by ity of hen 5-325 00:00: mouth [place] mg tablet 00 every 6 Medical (six) Branch hours as needed for Pain (scale 4-6) or Pain (scale 7-10). Indication s: acute pain gabapentin 2023-0 Yes [id number] 300mg Take 1 [facility] 300 mg 3-04 capsule by ity of capsule 00:00: mouth in [place] the Medical morning Branch and 1 capsule at noon and 1 capsule in the evening. methocarbam 2023-0 Yes [id number] 750mg Take 1 [facility] oL 750 mg 3-04 tablet by ity o f tablet 00:00: mouth () Medical times Branch daily. HYDROcodone 2023-0 Yes [id number] 1{tbl} Take 1 Un tabitha -acetaminop 3-04 tablet by ity of hen 5-325 00:00: mouth [place] mg tablet 00 every 6 Medical (six) Branch hours as needed for Pain (scale 4-6) or Pain (scale 7-10). Indication s: acute pain ertapenem 1 3-0 Yes Univer s gram 3-04 ity of injection 00:00: 00 Medical Branch gabapentin 2023-0 Yes [id number] 300mg Take 1 [facility] 300 mg 3-04 capsule by ity of capsule 00:00: mouth in the Medical morning Branch and 1 capsule at noon and 1 capsule in the evening. methocarbam 2023-0 Yes [id number] 750mg Take 1 [facility] oL 750 mg 3-04 tablet by ity o f tablet 00:00: mouth 4 (four) Medical times Branch daily. HYDROcodone 2023-0 Yes [id number] 1{tbl} Take 1 Un tabitha -acetaminop 3-04 tablet by ity of hen 5-325 00:00: mouth [place] mg tablet 00 every 6 Medical (six) Branch hours as needed for Pain (scale 4-6) or Pain (scale 7-10). Indication s: acute pain ertapenem 1 2022-0 Yes Univer s gram 3-04 ity of injection 00:00: Medical Branch gabapentin 3-0 Yes [id number] 300mg Take 1 [facility] 300 mg 3-04 capsule by ity of capsule 00:00: mouth in [place] the Medical morning Branch and 1 capsule at noon and 1 capsule in the evening. methocarbam 2022-0 Yes [id number] 750mg Take 1 [facility] oL 750 mg 3-04 tablet by ity o f tablet 00:00: mouth 4 (four) Medical times Branch daily. HYDROcodone 2022-0 Yes [id number] 1{tbl} Take 1 Un tabitha -acetaminop 3-04 tablet by ity of hen 5-325 00:00: mouth [place] mg tablet 00 every 6 Medical (six) Branch hours as needed for Pain (scale 4-6) or Pain (scale 7-10). Indication s: acute pain ertapenem 1 2022-0 Yes Univer s gram 3-04 ity of injection 00:00: Medical Branch gabapentin 2022-0 Yes [id number] 300mg Take 1 [facility] 300 mg 3-04 capsule by ity of capsule 00:00: mouth in [place] the Medical morning Branch and 1 capsule at noon and 1 capsule in the evening. methocarbam 3-0 Yes [id number] 750mg Take 1 [facility] oL 750 mg 3-04 tablet by ity o f tablet 00:00: mouth 4 (four) Medical times Branch daily. HYDROcodone 2022-0 Yes [id number] 1{tbl} Take 1 Un tabitha -acetaminop 3-04 tablet by ity of hen 5-325 00:00: mouth [place] mg tablet 00 every 6 Medical (six) Branch hours as needed for Pain (scale 4-6) or Pain (scale 7-10). Indication s: acute pain ertapenem 1 2022-0 Yes Univer s gram 3-04 ity of injection 00:00: [place] 00 Medical Branch gabapentin 3-0 Yes [id number] 300mg Take 1 [facility] 300 mg 3-04 capsule by ity of capsule 00:00: mouth in the Medical morning Branch and 1 capsule at noon and 1 capsule in the evening. methocarbam 2023-0 Yes [id number] 750mg Take 1 [facility] oL 750 mg 3-04 tablet by ity o f tablet 00:00: mouth 4 (four) Medical times Branch daily. HYDROcodone 3-0 Yes 4647 1{tbl} Take 1 Un tabitha -acetaminop 3-04 tablet by ity of hen 5-325 00:00: mouth [place] mg tablet 00 every 6 Medical (six) Branch hours as needed for Pain (scale 4-6) or Pain (scale 7-10). Indication s: acute pain ertapenem 1 2022-0 Yes Univer s gram 3-04 ity of injection 00:00: Medical Branch gabapentin 3-0 Yes [id number] 300mg Take 1 [facility] 300 mg 3-04 capsule by ity of capsule 00:00: mouth in [place] the Medical morning Branch and 1 capsule at noon and 1 capsule in the evening. methocarbam 2023-0 Yes [id number] 750mg Take 1 [facility] oL 750 mg 3-04 tablet by ity o f tablet 00:00: mouth 4 (four) Medical times Branch daily. HYDROcodone 2023-0 Yes [id number] 1{tbl} Take 1 Un tabitha -acetaminop 3-04 tablet by ity of hen 5-325 00:00: mouth [place] mg tablet 00 every 6 Medical (six) Branch hours as needed for Pain (scale 4-6) or Pain (scale 7-10). Indication s: acute pain ertapenem 1 2022-0 Yes Univer s gram 3-04 ity of injection 00:00: Medical Branch gabapentin 2023-0 Yes [id number] 300mg Take 1 [facility] 300 mg 3-04 capsule by ity of capsule 00:00: mouth in the Medical morning Branch and 1 capsule at noon and 1 capsule in the evening. methocarbam 2023-0 Yes [id number] 750mg Take 1 [facility] oL 750 mg 3-04 tablet by ity o f tablet 00:00: mouth 4 (four) Medical times Branch daily. HYDROcodone 2023-0 Yes [id number] 1{tbl} Take 1 Un tabitha -acetaminop 3-04 tablet by ity of hen 5-325 00:00: mouth [place] mg tablet 00 every 6 Medical (six) Branch hours as needed for Pain (scale 4-6) or Pain (scale 7-10). Indication s: acute pain ertapenem 1 2022-0 Yes Univer s gram 3-04 ity of injection 00:00: Medical Branch gabapentin 2023-0 Yes [id number] 300mg Take 1 [facility] 300 mg 3-04 capsule by ity of capsule 00:00: mouth in [place] 00 the Medical morning Branch and 1 capsule at noon and 1 capsule in the evening. methocarbam 2023-0 Yes [id number] 750mg Take 1 [facility] oL 750 mg 3-04 tablet by ity o f tablet 00:00: mouth 4 (four) Medical times Branch daily. HYDROcodone 2023-0 Yes [id number] 1{tbl} Take 1 Un tabitha -acetaminop 3-04 tablet by ity of hen 5-325 00:00: mouth [place] mg tablet 00 every 6 Medical (six) Branch hours as needed for Pain (scale 4-6) or Pain (scale 7-10). Indication s: acute pain ertapenem 1 2022-0 Yes Univer s gram 3-04 ity of injection 00:00: Medical Branch gabapentin 3-0 Yes [id number] 300mg Take 1 [facility] 300 mg 3-04 capsule by ity of capsule 00:00: mouth in [place] the Medical morning Branch and 1 capsule at noon and 1 capsule in the evening. methocarbam 2023-0 Yes [id number] 750mg Take 1 [facility] oL 750 mg 3-04 tablet by ity o f tablet 00:00: mouth 4 (four) Medical times Branch daily. HYDROcodone 2023-0 Yes [id number] 1{tbl} Take 1 Un tabitha -acetaminop 3-04 tablet by ity of hen 5-325 00:00: mouth [place] mg tablet 00 every 6 Medical (six) Branch hours as needed for Pain (scale 4-6) or Pain (scale 7-10). Indication s: acute pain ertapenem 1 3-0 Yes Univer s gram 3-04 ity of injection 00:00: [place] 00 Medical Branch gabapentin 2023-0 Yes [id number] 300mg Take 1 [facility] 300 mg 3-04 capsule by ity of capsule 00:00: mouth in [place] the Medical morning Branch and 1 capsule at noon and 1 capsule in the evening. methocarbam 2023-0 Yes [id number] 750mg Take 1 [facility] oL 750 mg 3-04 tablet by ity o f tablet 00:00: mouth 4 [place] (four) Medical times Branch daily. HYDROcodone 2023-0 Yes [id number] 1{tbl} Take 1 Un tabitha -acetaminop 3-04 tablet by ity of hen 5-325 00:00: mouth [place] mg tablet 00 every 6 Medical (six) Branch hours as needed for Pain (scale 4-6) or Pain (scale 7-10). Indication s: acute pain gabapentin 2023-0 Yes [id number] 300mg Take 1 [facility] 300 mg 3-04 capsule by ity of capsule 00:00: mouth in [place] [address] the Medical morning Branch and 1 capsule at noon and 1 capsule in the evening. methocarbam 2023-0 Yes [id number] 750mg Take 1 [facility] oL 750 mg 3-04 tablet by ity o f tablet 00:00: mouth [place] (four) Medical times Branch daily. HYDROcodone 2023-0 Yes [id number] 1{tbl} Take 1 Un tabitha -acetaminop 3-04 tablet by ity of hen 5-325 00:00: mouth [place] mg tablet 00 every 6 Medical (six) Branch hours as needed for Pain (scale 4-6) or Pain (scale 7-10). Indication s: acute pain gabapentin 2023-0 Yes [id number] 300mg Take 1 [facility] 300 mg 3-04 capsule by ity of capsule 00:00: mouth in [place] [address] the Medical morning Branch and 1 capsule at noon and 1 capsule in the evening. methocarbam 2023-0 Yes [id number] 750mg Take 1 [facility] oL 750 mg 3-04 tablet by ity o f tablet 00:00: mouth [place] (four) Medical times Branch daily. HYDROcodone 2023-0 Yes [id number] 1{tbl} Take 1 Un tabitha -acetaminop 3-04 tablet by ity of hen 5-325 00:00: mouth [place] mg tablet 00 every 6 Medical (six) Branch hours as needed for Pain (scale 4-6) or Pain (scale 7-10). Indication s: acute pain gabapentin 2023-0 Yes [id number] 300mg Take 1 [facility] 300 mg 3-04 capsule by ity of capsule 00:00: mouth in [place] the Medical morning Branch and 1 capsule at noon and 1 capsule in the evening. methocarbam 2023-0 Yes [id number] 750mg Take 1 [facility] oL 750 mg 3-04 tablet by ity o f tablet 00:00: mouth (four) Medical times Branch daily. HYDROcodone 2023-0 Yes [id number] 1{tbl} Take 1 Un tabitha -acetaminop 3-04 tablet by ity of hen 5-325 00:00: mouth [place] mg tablet 00 every 6 Medical (six) Branch hours as needed for Pain (scale 4-6) or Pain (scale 7-10). Indication s: acute pain gabapentin 2023-0 Yes [id number] 300mg Take 1 [facility] 300 mg 3-04 capsule by ity of capsule 00:00: mouth in [place] the Medical morning Branch and 1 capsule at noon and 1 capsule in the evening. methocarbam 2023-0 Yes [id number] 750mg Take 1 [facility] oL 750 mg 3-04 tablet by ity o f tablet 00:00: mouth () Medical times Branch daily. HYDROcodone 2023-0 Yes [id number] 1{tbl} Take 1 Un tabitha -acetaminop 3-04 tablet by ity of hen 5-325 00:00: mouth [place] mg tablet 00 every 6 Medical (six) Branch hours as needed for Pain (scale 4-6) or Pain (scale 7-10). Indication s: acute pain gabapentin 2023-0 Yes [id number] 300mg Take 1 [facility] 300 mg 3-04 capsule by ity of capsule 00:00: mouth in [place] the Medical morning Branch and 1 capsule at noon and 1 capsule in the evening. methocarbam 2023-0 Yes [id number] 750mg Take 1 [facility] oL 750 mg 3-04 tablet by ity o f tablet 00:00: mouth (four) Medical times Branch daily. HYDROcodone 2023-0 Yes [id number] 1{tbl} Take 1 Un tabitha -acetaminop 3-04 tablet by ity of hen 5-325 00:00: mouth [place] mg tablet 00 every 6 Medical (six) Branch hours as needed for Pain (scale 4-6) or Pain (scale 7-10). Indication s: acute pain gabapentin 2023-0 Yes [id number] 300mg Take 1 [facility] 300 mg 3-04 capsule by ity of capsule 00:00: mouth in [place] 00 the Medical morning Branch and 1 capsule at noon and 1 capsule in the evening. methocarbam 2023-0 Yes [id number] 750mg Take 1 [facility] oL 750 mg 3-04 tablet by ity o f tablet 00:00: mouth 4 (four) Medical times Branch daily. HYDROcodone 2023-0 Yes [id number] 1{tbl} Take 1 Un tabitha -acetaminop 3-04 tablet by ity of hen 5-325 00:00: mouth [place] mg tablet 00 every 6 Medical (six) Branch hours as needed for Pain (scale 4-6) or Pain (scale 7-10). Indication s: acute pain gabapentin 2023-0 Yes [id number] 300mg Take 1 [facility] 300 mg 3-04 capsule by ity of capsule 00:00: mouth in [place] the Medical morning Branch and 1 capsule at noon and 1 capsule in the evening. methocarbam 2023-0 Yes [id number] 750mg Take 1 [facility] oL 750 mg 3-04 tablet by ity o f tablet 00:00: mouth (four) Medical times Branch daily. HYDROcodone 2023-0 Yes [id number] 1{tbl} Take 1 Un tabitha -acetaminop 3-04 tablet by ity of hen 5-325 00:00: mouth [place] mg tablet 00 every 6 Medical (six) Branch hours as needed for Pain (scale 4-6) or Pain (scale 7-10). Indication s: acute pain gabapentin 2023-0 Yes [id number] 300mg Take 1 [facility] 300 mg 3-04 capsule by ity of capsule 00:00: mouth in [place] the Medical morning Branch and 1 capsule at noon and 1 capsule in the evening. methocarbam 2023-0 Yes [id number] 750mg Take 1 [facility] oL 750 mg 3-04 tablet by ity o f tablet 00:00: mouth 4 (four) Medical times Branch daily. HYDROcodone 2023-0 Yes [id number] 1{tbl} Take 1 Un tabitha -acetaminop 3-04 tablet by ity of hen 5-325 00:00: mouth [place] mg tablet 00 every 6 Medical (six) Branch hours as needed for Pain (scale 4-6) or Pain (scale 7-10). Indication s: acute pain gabapentin 2023-0 Yes [id number] 300mg Take 1 [facility] 300 mg 3-04 capsule by ity of capsule 00:00: mouth in [place] 00 the Medical morning Branch and 1 capsule at noon and 1 capsule in the evening. methocarbam 2023-0 Yes [id number] 750mg Take 1 [facility] oL 750 mg 3-04 tablet by ity o f tablet 00:00: mouth 4 (four) Medical times Branch daily. HYDROcodone 2023-0 Yes [id number] 1{tbl} Take 1 Un tabitha -acetaminop 3-04 tablet by ity of hen 5-325 00:00: mouth [place] mg tablet 00 every 6 Medical (six) Branch hours as needed for Pain (scale 4-6) or Pain (scale 7-10). Indication s: acute pain gabapentin 2023-0 Yes [id number] 300mg Take 1 [facility] 300 mg 3-04 capsule by ity of capsule 00:00: mouth in [place] the Medical morning Branch and 1 capsule at noon and 1 capsule in the evening. methocarbam 2023-0 Yes [id number] 750mg Take 1 [facility] oL 750 mg 3-04 tablet by ity o f tablet 00:00: mouth () Medical times Branch daily. HYDROcodone 2023-0 Yes 4647 1{tbl} Take 1 Un tabitha -acetaminop 3-04 tablet by ity of hen 5-325 00:00: mouth [place] mg tablet 00 every 6 Medical (six) Branch hours as needed for Pain (scale 4-6) or Pain (scale 7-10). Indication s: acute pain gabapentin 2023-0 Yes [id number] 300mg Take 1 [facility] 300 mg 3-04 capsule by ity of capsule 00:00: mouth in [place] the Medical morning Branch and 1 capsule at noon and 1 capsule in the evening. methocarbam 2023-0 Yes [id number] 750mg Take 1 [facility] oL 750 mg 3-04 tablet by ity o f tablet 00:00: mouth 4 (four) Medical times Branch daily. HYDROcodone 2023-0 Yes 4647 1{tbl} Take 1 Un tabitha -acetaminop 3-04 tablet by ity of hen 5-325 00:00: mouth [place] mg tablet 00 every 6 Medical (six) Branch hours as needed for Pain (scale 4-6) or Pain (scale 7-10). Indication s: acute pain gabapentin 2023-0 Yes [id number] 300mg Take 1 [facility] 300 mg 3-04 capsule by ity of capsule 00:00: mouth in [place] the Medical morning Branch and 1 capsule at noon and 1 capsule in the evening. methocarbam 2023-0 Yes [id number] 750mg Take 1 [facility] oL 750 mg 3-04 tablet by ity o f tablet 00:00: mouth 4 (four) Medical times Branch daily. HYDROcodone 2023-0 Yes 4647 1{tbl} Take 1 Un tabitha -acetaminop 3-04 tablet by ity of hen 5-325 00:00: mouth [place] mg tablet 00 every 6 Medical (six) Branch hours as needed for Pain (scale 4-6) or Pain (scale 7-10). Indication s: acute pain gabapentin 2023-0 Yes [id number] 300mg Take 1 [facility] 300 mg 3-04 capsule by ity of capsule 00:00: mouth in [place] the Medical morning Branch and 1 capsule at noon and 1 capsule in the evening. methocarbam 2023-0 Yes [id number] 750mg Take 1 [facility] oL 750 mg 3-04 tablet by ity o f tablet 00:00: mouth () Medical times Branch daily. HYDROcodone 2023-0 Yes 4647 1{tbl} Take 1 Un tabitha -acetaminop 3-04 tablet by ity of hen 5-325 00:00: mouth [place] mg tablet 00 every 6 Medical (six) Branch hours as needed for Pain (scale 4-6) or Pain (scale 7-10). Indication s: acute pain gabapentin 2023-0 Yes [id number] 300mg Take 1 [facility] 300 mg 3-04 capsule by ity of capsule 00:00: mouth in [place] the Medical morning Branch and 1 capsule at noon and 1 capsule in the evening. methocarbam 2023-0 Yes [id number] 750mg Take 1 [facility] oL 750 mg 3-04 tablet by ity o f tablet 00:00: mouth 4 (four) Medical times Branch daily. HYDROcodone 2023-0 Yes 4647 1{tbl} Take 1 Un tabitha -acetaminop 3-04 tablet by ity of hen 5-325 00:00: mouth [place] mg tablet 00 every 6 Medical (six) Branch hours as needed for Pain (scale 4-6) or Pain (scale 7-10). Indication s: acute pain gabapentin 2023-0 Yes [id number] 300mg Take 1 [facility] 300 mg 3-04 capsule by ity of capsule 00:00: mouth in [place] 00 the Medical morning Branch and 1 capsule at noon and 1 capsule in the evening. methocarbam 2023-0 Yes [id number] 750mg Take 1 [facility] oL 750 mg 3-04 tablet by ity o f tablet 00:00: mouth 4 (four) Medical times Branch daily. HYDROcodone 2023-0 Yes 4647 1{tbl} Take 1 Un tabitha -acetaminop 3-04 tablet by ity of hen 5-325 00:00: mouth [place] mg tablet 00 every 6 Medical (six) Branch hours as needed for Pain (scale 4-6) or Pain (scale 7-10). Indication s: acute pain gabapentin 2023-0 Yes [id number] 300mg Take 1 [facility] 300 mg 3-04 capsule by ity of capsule 00:00: mouth in [place] the Medical morning Branch and 1 capsule at noon and 1 capsule in the evening. methocarbam 2023-0 Yes [id number] 750mg Take 1 [facility] oL 750 mg 3-04 tablet by ity o f tablet 00:00: mouth (four) Medical times Branch daily. HYDROcodone 2023-0 Yes 4647 1{tbl} Take 1 Un tabitha -acetaminop 3-04 tablet by ity of hen 5-325 00:00: mouth [place] mg tablet 00 every 6 Medical (six) Branch hours as needed for Pain (scale 4-6) or Pain (scale 7-10). Indication s: acute pain gabapentin 2023-0 Yes [id number] 300mg Take 1 [facility] 300 mg 3-04 capsule by ity of capsule 00:00: mouth in [place] the Medical morning Branch and 1 capsule at noon and 1 capsule in the evening. methocarbam 2023-0 Yes [id number] 750mg Take 1 [facility] oL 750 mg 3-04 tablet by ity o f tablet 00:00: mouth 4 (four) Medical times Branch daily. HYDROcodone 2023-0 Yes 4647 1{tbl} Take 1 Un tabitha -acetaminop 3-04 tablet by ity of hen 5-325 00:00: mouth [place] mg tablet 00 every 6 Medical (six) Branch hours as needed for Pain (scale 4-6) or Pain (scale 7-10). Indication s: acute pain gabapentin 2023-0 Yes [id number] 300mg Take 1 [facility] 300 mg 3-04 capsule by ity of capsule 00:00: mouth in [place] 00 the Medical morning Branch and 1 capsule at noon and 1 capsule in the evening. methocarbam 2023-0 Yes [id number] 750mg Take 1 [facility] oL 750 mg 3-04 tablet by ity o f tablet 00:00: mouth 4 (four) Medical times Branch daily. HYDROcodone 2023-0 Yes 4647 1{tbl} Take 1 Un tabitha -acetaminop 3-04 tablet by ity of hen 5-325 00:00: mouth [place] mg tablet 00 every 6 Medical (six) Branch hours as needed for Pain (scale 4-6) or Pain (scale 7-10). Indication s: acute pain gabapentin 2023-0 Yes [id number] 300mg Take 1 [facility] 300 mg 3-04 capsule by ity of capsule 00:00: mouth in [place] the Medical morning Branch and 1 capsule at noon and 1 capsule in the evening. methocarbam 2023-0 Yes [id number] 750mg Take 1 [facility] oL 750 mg 3-04 tablet by ity o f tablet 00:00: mouth (four) Medical times Branch daily. HYDROcodone 2023-0 Yes 4647 1{tbl} Take 1 Un tabitha -acetaminop 3-04 tablet by ity of hen 5-325 00:00: mouth [place] mg tablet 00 every 6 Medical (six) Branch hours as needed for Pain (scale 4-6) or Pain (scale 7-10). Indication s: acute pain gabapentin 2023-0 Yes [id number] 300mg Take 1 [facility] 300 mg 3-04 capsule by ity of capsule 00:00: mouth in [place] 00 the Medical morning Branch and 1 capsule at noon and 1 capsule in the evening. methocarbam 2023-0 Yes [id number] 750mg Take 1 [facility] oL 750 mg 3-04 tablet by ity o f tablet 00:00: mouth 4 (four) Medical times Branch daily. HYDROcodone 2023-0 Yes 4647 1{tbl} Take 1 Un tabitha -acetaminop 3-04 tablet by ity of hen 5-325 00:00: mouth [place] mg tablet 00 every 6 Medical (six) Branch hours as needed for Pain (scale 4-6) or Pain (scale 7-10). Indication s: acute pain gabapentin 2023-0 Yes [id number] 300mg Take 1 [facility] 300 mg 3-04 capsule by ity of capsule 00:00: mouth in [place] the Medical morning Branch and 1 capsule at noon and 1 capsule in the evening. methocarbam 2023-0 Yes [id number] 750mg Take 1 [facility] oL 750 mg 3-04 tablet by ity o f tablet 00:00: mouth ([facility]) Medical times Branch daily. HYDROcodone 2023-0 Yes 4647 1{tbl} Take 1 Un tabitha -acetaminop 3-04 tablet by ity of hen 5-325 00:00: mouth [place] mg tablet 00 every 6 Medical (six) Branch hours as needed for Pain (scale 4-6) or Pain (scale 7-10). Indication s: acute pain gabapentin 2023-0 Yes [id number] 300mg Take 1 [facility] 300 mg 3-04 capsule by ity of capsule 00:00: mouth in [place] [address] the Medical morning Branch and 1 capsule at noon and 1 capsule in the evening. methocarbam 2023-0 Yes [id number] 750mg Take 1 [facility] oL 750 mg 3-04 tablet by ity o f tablet 00:00: mouth [place] (four) Medical times Branch daily. HYDROcodone 2023-0 Yes 4647 1{tbl} Take 1 Un tabitha -acetaminop 3-04 tablet by ity of hen 5-325 00:00: mouth [place] mg tablet 00 every 6 Medical (six) Branch hours as needed for Pain (scale 4-6) or Pain (scale 7-10). Indication s: acute pain gabapentin 2023-0 Yes [id number] 300mg Take 1 [facility] 300 mg 3-04 capsule by ity of capsule 00:00: mouth in [place] [address] the Medical morning Branch and 1 capsule at noon and 1 capsule in the evening. methocarbam 2023-0 Yes [id number] 750mg Take 1 [facility] oL 750 mg 3-04 tablet by ity o f tablet 00:00: mouth 4 00 ([facility]) Medical times Branch daily. HYDROcodone 2023-0 Yes 4647 1{tbl} Take 1 Un tabitha -acetaminop 3-04 tablet by ity of hen 5-325 00:00: mouth [place] mg tablet 00 every 6 Medical (six) Branch hours as needed for Pain (scale 4-6) or Pain (scale 7-10). Indication s: acute pain gabapentin 2023-0 Yes [id number] 300mg Take 1 [facility] 300 mg 3-04 capsule by ity of capsule 00:00: mouth in [place] the Medical morning Branch and 1 capsule at noon and 1 capsule in the evening. methocarbam 2023-0 Yes [id number] 750mg Take 1 [facility] oL 750 mg 3-04 tablet by ity o f tablet 00:00: mouth [place] ([facility]) Medical times [place] daily. HYDROcodone 2023-0 Yes 4647 1{tbl} Take 1 Un tabitha -acetaminop 3-04 tablet by ity of hen 5-325 00:00: mouth [place] mg tablet 00 every 6 Medical (six) Branch hours as needed for Pain (scale 4-6) or Pain (scale 7-10). Indication s: acute pain gabapentin 2023-0 Yes [id number] 300mg Take 1 [facility] 300 mg 3-04 capsule by ity of capsule 00:00: mouth in [place] [address] the [facility] morning Branch and 1 capsule at noon and 1 capsule in the evening. methocarbam 2023-0 Yes [id number] 750mg Take 1 [facility] oL 750 mg 3-04 tablet by ity o f tablet 00:00: mouth [place] [address] ([facility]) Medical times [place] daily. gabapentin 2023-0 Yes [id number] 300mg Take 1 [facility] 300 mg 3-04 capsule by ity of capsule 00:00: mouth in [place] [address] the [facility] morning Branch and 1 capsule at noon and 1 capsule in the evening. methocarbam 2023-0 Yes [id number] 750mg Take 1 [facility] oL 750 mg 3-04 tablet by ity o f tablet 00:00: mouth [place] [address] ([facility]) Medical times [place] daily. gabapentin 2023-0 Yes [id number] 300mg Take 1 [facility] 300 mg 3-04 capsule by ity of capsule 00:00: mouth in [place] [address] the [facility] morning Branch and 1 capsule at noon and 1 capsule in the evening. methocarbam 2023-0 Yes [id number] 750mg Take 1 [facility] oL 750 mg 3-04 tablet by ity o f tablet 00:00: mouth [address] daily[address] gabapentin 2023-0 Yes [id number] 300mg Take 1 [facility] 300 mg 3-04 capsule by ity of capsule 00:00: mouth in [place] [address] the [facility] morning Branch and 1 capsule at noon and 1 capsule in the evening. methocarbam 2023-0 Yes [id number] 750mg Take 1 [facility] oL 750 mg 3-04 tablet by ity o f tablet 00:00: mouth [address] daily[address] gabapentin 2023-0 Yes [id number] 300mg Take 1 [facility] 300 mg 3-04 capsule by ity of capsule 00:00: mouth in [address] morning [place] and 1 capsule at noon and 1 capsule in the evening. methocarbam 2023-0 Yes [id number] 750mg Take 1 [facility] oL 750 mg 3-04 tablet by ity o f tablet 00:00: mouth [address] daily[address] gabapentin 2023-0 Yes [id number] 300mg Take 1 [facility] 300 mg 3-04 capsule by ity of capsule 00:00: mouth in [address] morning [place] and 1 capsule at noon and 1 capsule in the evening. methocarbam 2023-0 Yes [id number] 750mg Take 1 [facility] oL 750 mg 3-04 tablet by ity o f tablet 00:00: mouth [address] daily[address] gabapentin 2023-0 Yes [id number] 300mg Take 1 [facility] 300 mg 3-04 capsule by ity of capsule 00:00: mouth in [address] morning [place] and 1 capsule at noon and 1 capsule in the evening. methocarbam 2023-0 Yes [id number] 750mg Take 1 [facility] oL 750 mg 3-04 tablet by ity o f tablet 00:00: mouth [address] daily[address] gabapentin 2023-0 Yes [id number] 300mg Take 1 [facility] 300 mg 3-04 capsule by ity of capsule 00:00: mouth in [place] [address] the [facility] morning [place] and 1 capsule at noon and 1 capsule in the evening. methocarbam 2023-0 Yes [id number] 750mg Take 1 [facility] oL 750 mg 3-04 tablet by ity o f tablet 00:00: mouth [place] ([facility] daily. gabapentin 2023-0 Yes [id number] 300mg Take 1 [facility] 300 mg 3-04 capsule by ity of capsule 00:00: mouth in [place] [address] the [facility] morning Branch and 1 capsule at noon and 1 capsule in the evening. methocarbam 2023-0 Yes [id number] 750mg Take 1 [facility] oL 750 mg 3-04 tablet by ity o f tablet 00:00: mouth [place] ([facility] daily. gabapentin 2023-0 Yes [id number] 300mg Take 1 [facility] 300 mg 3-04 capsule by ity of capsule 00:00: mouth in [address] morning [place] and 1 capsule at noon and 1 capsule in the evening. methocarbam 2023-0 Yes [id number] 750mg Take 1 [facility] oL 750 mg 3-04 tablet by ity o f tablet 00:00: mouth [place] [address] ([facility] daily. gabapentin 2023-0 Yes [id number] 300mg Take 1 [facility] 300 mg 3-04 capsule by ity of capsule 00:00: mouth in [address] morning [place] and 1 capsule at noon and 1 capsule in the evening. methocarbam 2023-0 Yes [id number] 750mg Take 1 [facility] oL 750 mg 3-04 tablet by ity o f tablet 00:00: mouth [address] daily[address] gabapentin 2023-0 Yes [id number] 300mg Take 1 [facility] 300 mg 3-04 capsule by ity of capsule 00:00: mouth in [address] morning [place] and 1 capsule at noon and 1 capsule in the evening. methocarbam 2023-0 Yes [id number] 750mg Take 1 [facility] oL 750 mg 3-04 tablet by ity o f tablet 00:00: mouth [place] [address] ([facility] daily. gabapentin 2023-0 Yes [id number] 300mg Take 1 [facility] 300 mg 3-04 capsule by ity of capsule 00:00: mouth in [address] morning [place] and 1 capsule at noon and 1 capsule in the evening. methocarbam 2023-0 Yes [id number] 750mg Take 1 [facility] oL 750 mg 3-04 tablet by ity o f tablet 00:00: mouth [place] [address] ([facility] times [place] daily. gabapentin 2023-0 Yes [id number] 300mg Take 1 [facility] 300 mg 3-04 capsule by ity of capsule 00:00: mouth in [address] morning [place] and 1 capsule at noon and 1 capsule in the evening. methocarbam 2023-0 Yes [id number] 750mg Take 1 [facility] oL 750 mg 3-04 tablet by ity o f tablet 00:00: mouth [address] daily[address] gabapentin 2023-0 Yes [id number] 300mg Take 1 [facility] 300 mg 3-04 capsule by ity of capsule 00:00: mouth in [address] morning [place] and 1 capsule at noon and 1 capsule in the evening. methocarbam 2023-0 Yes [id number] 750mg Take 1 [facility] oL 750 mg 3-04 tablet by ity o f tablet 00:00: mouth [address] daily[address] gabapentin 2023-0 Yes [id number] 300mg Take 1 [facility] 300 mg 3-04 capsule by ity of capsule 00:00: mouth in [address] morning [place] and 1 capsule at noon and 1 capsule in the evening. methocarbam 2023-0 Yes [id number] 750mg Take 1 [facility] oL 750 mg 3-04 tablet by ity o f tablet 00:00: mouth [address] daily[address] gabapentin 2023-0 Yes [id number] 300mg Take 1 [facility] 300 mg 3-04 capsule by ity of capsule 00:00: mouth in [address] and 1 capsule at noon and 1 capsule in the evening. methocarbam 2023-0 Yes [id number] 750mg Take 1 [facility] oL 750 mg 3-04 tablet by ity o f tablet 00:00: mouth [address] daily[address] gabapentin 2023-0 Yes [id number] 300mg Take 1 [facility] 300 mg 3-04 capsule by ity of capsule 00:00: mouth in [address] morning [place] and 1 capsule at noon and 1 capsule in the evening. methocarbam 2023-0 Yes [id number] 750mg Take 1 [facility] oL 750 mg 3-04 tablet by ity o f tablet 00:00: mouth [address] daily[address] gabapentin 2023-0 Yes [id number] 300mg Take 1 [facility] 300 mg 3-04 capsule by ity of capsule 00:00: mouth in [address] morning [place] and 1 capsule at noon and 1 capsule in the evening. methocarbam 2023-0 Yes [id number] 750mg Take 1 [facility] oL 750 mg 3-04 tablet by ity o f tablet 00:00: mouth [address] daily[address] gabapentin 2023-0 Yes [id number] 300mg Take 1 [facility] 300 mg 3-04 capsule by ity of capsule 00:00: mouth in [address] morning [place] and 1 capsule at noon and 1 capsule in the evening. methocarbam 2023-0 Yes [id number] 750mg Take 1 [facility] oL 750 mg 3-04 tablet by ity o f tablet 00:00: mouth [address] daily[address] gabapentin 2023-0 Yes [id number] 300mg Take 1 [facility] 300 mg 3-04 capsule by ity of capsule 00:00: mouth in [address] morning [place] and 1 capsule at noon and 1 capsule in the evening. methocarbam 2023-0 Yes [id number] 750mg Take 1 [facility] oL 750 mg 3-04 tablet by ity o f tablet 00:00: mouth [address] daily[address] gabapentin 2023-0 Yes [id number] 300mg Take 1 [facility] 300 mg 3-04 capsule by ity of capsule 00:00: mouth in [address] and 1 capsule at noon and 1 capsule in the evening. methocarbam 2023-0 Yes [id number] 750mg Take 1 [facility] oL 750 mg 3-04 tablet by ity o f tablet 00:00: mouth [address] daily[address] gabapentin 2023-0 Yes [id number] 300mg Take 1 [facility] 300 mg 3-04 capsule by ity of capsule 00:00: mouth in [address] morning [place] and 1 capsule at noon and 1 capsule in the evening. methocarbam 2023-0 Yes [id number] 750mg Take 1 [facility] oL 750 mg 3-04 tablet by ity o f tablet 00:00: mouth [address] daily[address] gabapentin 2023-0 Yes [id number] 300mg Take 1 [facility] 300 mg 3-04 capsule by ity of capsule 00:00: mouth in [address] morning [place] and 1 capsule at noon and 1 capsule in the evening. methocarbam 2023-0 Yes [id number] 750mg Take 1 [facility] oL 750 mg 3-04 tablet by ity o f tablet 00:00: mouth [address] daily[address] gabapentin 2023-0 Yes [id number] 300mg Take 1 [facility] 300 mg 3-04 capsule by ity of capsule 00:00: mouth in [place] [address] the [facility] morning Branch and 1 capsule at noon and 1 capsule in the evening. methocarbam 2023-0 Yes [id number] 750mg Take 1 [facility] oL 750 mg 3-04 tablet by ity o f tablet 00:00: mouth [address] daily[address] gabapentin 2023-0 Yes [id number] 300mg Take 1 [facility] 300 mg 3-04 capsule by ity of capsule 00:00: mouth in [address] morning [place] and 1 capsule at noon and 1 capsule in the evening. methocarbam 2023-0 Yes [id number] 750mg Take 1 [facility] oL 750 mg 3-04 tablet by ity o f tablet 00:00: mouth [address] daily[address] gabapentin 2023-0 Yes [id number] 300mg Take 1 [facility] 300 mg 3-04 capsule by ity of capsule 00:00: mouth in [address] morning [place] and 1 capsule at noon and 1 capsule in the evening. methocarbam 2023-0 Yes [id number] 750mg Take 1 [facility] oL 750 mg 3-04 tablet by ity o f tablet 00:00: mouth [address] daily[address] gabapentin 2023-0 Yes [id number] 300mg Take 1 [facility] 300 mg 3-04 capsule by ity of capsule 00:00: mouth in [address] morning [place] and 1 capsule at noon and 1 capsule in the evening. methocarbam 2023-0 Yes [id number] 750mg Take 1 [facility] oL 750 mg 3-04 tablet by ity o f tablet 00:00: mouth [address] daily[address] gabapentin 2023-0 Yes [id number] 300mg Take 1 [facility] 300 mg 3-04 capsule by ity of capsule 00:00: mouth in [address] morning [place] and 1 capsule at noon and 1 capsule in the evening. methocarbam 2023-0 Yes [id number] 750mg Take 1 [facility] oL 750 mg 3-04 tablet by ity o f tablet 00:00: mouth 4 [place] 00 (four) Medical times Branch daily. ertapenem 1 2022- No Unive rs gram 04-16 ity of injection 00:00: 00:00 [place] 00 :00 Medical Branch ertapenem 1 2022- No Unive rs gram 04-16 ity of injection 00:00: 00:00 [place] 00 :00 Medical Branch citalopram Yes 20mg 20 mg, Unive rs (CELEXA) 04-15 Oral, ity of tablet 20 20:30: DAILY, [place] mg 00 First dose Medical on Mon Branch 04/15/22 at 1430, Until Discontinu ed, Routine hydralAZINE Yes 10mg 10 mg, Univ ers (APRESOLINE 04-15 Slow IV ity o f ) injection 17:48: Push, [place] 10 mg 43 Q6HPRN, Medical Starting Branch on Mon04/15/22 at 1148, Until Discontinu ed, Routine, SBP > 170 or DBP > 100
Ind ication: Hypertensi ve Emergency morpHINE (2 Yes 2mg 2 mg, Slow [facility] mg/mL) 04-15 IV Push, ity of injection 2 09:45: Q4HPRN, [place] mg 42 Starting Medical on Mon Branch 04/15/22 at 0345, Until Discontinu ed, Routine, Pain (scale 7-10) sennosides- Yes 2{tbl} 2 tablet, Univers docusate 04-14 Oral, ity of sodium 19:00: DAILY, [place] (SENOKOT-S) First dose Me dical 8.6-50 mg on [place] Branch per tablet 04/14/22 at 2 tablet 1300, Until Discontinu ed, Routine sennosides- Yes 2{tbl} 2 tablet, Univers docusate 04-14 Oral, ity of sodium 19:00: DAILY, [place] (SENOKOT-S) 00 First dose Me dical 8.6-50 mg on [place] Branch per tablet 04/14/22 at 2 tablet 1300, Until Discontinu ed, Routine HYDROcodone Yes 1{tbl} 1 tablet, Univers -acetaminop 04-14 Oral, ity of hen (NORCO 17:50: Q6HPRN, [place] 5) 5-325 mg 57 Starting Medi janis tablet 1 on [place] Branch tablet 04/14/22 at 1150, Until Discontinu ed, Routine, Pain (scale 4-6) HYDROcodone Yes 1{tbl} 1 tablet, [facility] -acetaminop 04-14 Oral, ity of hen (NORCO 17:50: Q6HPRN, [place] 5) 5-325 mg 57 Starting Medi janis tablet 1 on [place] Branch tablet 04/14/22 at 1150, Until Discontinu ed, Routine, Pain (scale 4-6) ertapenem 2022- No 1000mg 1,000 mg, Univers (INVANZ) 04-14 IV ity of 1,000 mg in 17:45: 17:44 [place], [place] NaCl 0.9% 00 :00 Q24H ABX, Medic al (NS) 50 mL 7 doses, Branc h MINI-BAG First dose on Mon04/14/22 at 1145, Last dose on Mon04/20/22 at 1145, Administer over 30 Minutes, 50 mL
Reas on for Anti-Infec tive: Documented Infection& lt;br>Docu mented Infection Site: Urine
D uration of Therapy: 7 days
Re stricted use approved by: GRETTAMay, ADULT ID ertapenem 2022- No 1000mg 1,000 mg, Univers (INVANZ) 04-14 IV ity of 1,000 mg in 17:45: 17:44 [place], [place] NaCl 0.9% 00 :00 Q24H ABX, Medic al (NS) 50 mL 7 doses, Branc h MINI-BAG First dose on Mon04/14/22 at 1145, Last dose on Mon04/20/22 at 1145, Administer over 30 Minutes, 50 mL
Reas on for Anti-Infec tive: Documented Infection& lt;br>Docu mented Infection Site: Urine
D uration of Therapy: 7 days
Re stricted use approved by: GRETTAMay, ADULT ID lactated Yes 500mL at 75 Univers ringers IV 3-02 mL/hr, 500 ity of infusion 00:00: mL, IV [place] 500 mL 00 Infusion, Medical CONTINUOUS Branch , Starting on Mon04/13/22 at 1800, Until Discontinu ed, Routine, PACU ondansetron 2022- No 4mg 4 mg, Slow Univers (ZOFRAN 304-14 IV Push, ity of (PF)) 23:52: 00:21 PRN, 1 [place] injection 4 56 :00 dose, Medical mg Starting Branch on Mon04/13/22 at 1752, Until Discontinu ed, Routine, Nausea and Vomiting (N/V), PACU hydrogen 2022-0 Yes PRN, Univers peroxide 3 04-13 Starting ity o f % topical 23:16: on Mon solution 04/13/22 at [facility] 1716, [place] Until Discontinu ed, Routine, Intra-op hydrogen 2022-0 Yes PRN, Univers peroxide 3 04-13 Starting ity o f % topical 23:16: on Mon [place] solution 04/13/22 at [facility] 1716, [place] Until Discontinu ed, Routine, Intra-op vancomycin 2022-0 Yes PRN, Univers (VANCOCIN) 04-13 Starting ity o f injection 23:09: on Mon04/13/22 at [facility] 1709, [place] Until Discontinu ed, MALI, Intra-op tobramycin 2022-0 Yes PRN, Univers (NEBCIN) 04-13 Starting ity of injection 23:09: on Mon04/13/22 at [facility] 1709, [place] Until Discontinu ed, MALI, Intra-op morpHINE (2 2022- No 2mg 2 mg, Slow [facility] mg/mL) 04-13 IV Push, ity of injection 2 03:56: 03:55 Q4HPRN, [place] mg 37 :37 Starting Medical on Mon Branch 04/12/22 at 2156, Until [place] 04/14/22 at 2155, Routine, Pain (scale 7-10) morpHINE (2 2022- No 2mg 2 mg, Slow [facility] mg/mL) 04-13 IV Push, ity of injection 2 03:56: 03:55 Q4HPRN, [place] mg 37 :37 Starting Medical on [facility] 04/12/22 at 2156, Until [place] 04/14/22 at 2155, Routine, Pain (scale 7-10) atorvastati Yes 40mg 40 mg, Univ ers n (LIPITOR) 3-01 Oral, QHS, it y of tablet 40 03:00: First dose [place] mg 00 on [facility] 04/12/22 at Branch 2100, Until Discontinu ed, Routine atorvastati Yes 40mg 40 mg, Univ ers n (LIPITOR) 3-01 Oral, QHS, it y of tablet 40 03:00: First dose [place] mg 00 on [facility] 04/12/22 at Branch 2100, Until Discontinu ed, Routine NaCl 0.9% 0 Yes 1000mL at 75 Unive rs (NS) IV 2-28 mL/hr, IV ity of infusion 20:00: Infusion, [place] 1,000 mL 00 CONTINUOUS Medic al , Starting Branch on Mon04/12/22 at 1400, Until Discontinu ed, Routine NaCl 0.9% 0 Yes 1000mL at 75 Unive rs (NS) IV 2-28 mL/hr, IV ity of infusion 20:00: Infusion, [place] 1,000 mL 00 CONTINUOUS Medic al , Starting Branch on Mon04/12/22 at 1400, Until Discontinu ed, Routine Sliding Yes Subcutaneo Univ ers Scale 2-28 us, TID ity of Insulin - 14:00: MEALS+HS, [place] Lispro 00 First dose Medical (HumaLOG) + on [facility] 04/12/22 at Testing 0800, Until Discontinu ed, Routine heparin Yes 5000U 5,000 Univers (porcine) 2-28 Units, ity of injection 14:00: Subcutaneo [place] 5,000 Units 00 us, Q12H, Med ical First dose Branch on Mon04/12/22 at 0800, Until Discontinu ed, Routine Sliding Yes Subcutaneo Univ ers Scale 2-28 us, TID ity of Insulin - 14:00: MEALS+HS, [place] Lispro 00 First dose Medical (HumaLOG) + on Tue Branch Fsbg 04/12/22 at Testing 0800, Until Discontinu ed, Routine heparin Yes 5000U 5,000 Univers (porcine) 04-12 Units, ity of injection 14:00: [place]cut[place]o [place] 5,000 Units 00 us, Q12H, Med ical First dose Branch on Mon04/12/22 at 0800, Until Discontinu ed, Routine piperacilli 2022- No [id number] 3.375g 3.375 g, Univers n-tazobacta 04-12 0302 IV ity of m (ZOSYN) 13:30: 16:44 [place]gyback, [place] 3.375 g in 00 :25 Q8H ABX, 9 Med ical NaCl 0.9% doses, Branch (NS) 100 mL First dose MINI-BAG (after last reorder) on Mon04/12/22 at 0730, Last dose on [place] 04/14/22 at 2330, Administer over 240 Minutes, 100 mL
Reas on for Anti-Infec tive: Documented Infection< br>Documen ender Infection Site: Skin / Soft Tissue
Duration of Therapy: Other (see Comments) NaCl 0.9% 2022- No 1000mL at 125 Uni vers (NS) IV 04-12 mL/hr, IV ity of infusion 04:00: 20:29 Infusion, [place] 1,000 mL 00 :13 CONTINUOUS Medic al , Starting Branch on Mon04/11/22 at 2200, Until Mon04/12/22 at 1429, Routine dextrose Yes 250mL 250 mL, IV Un tabitha 10% (D10W) 04-12 Infusion, ity of bolus 03:56: PRN - SEE [place] infusion 05 INSTRUCTIO Medic al 250 mL NS, Branch Administer over 60 Minutes, Other, If blood glucose is < or = 70 mg/dL and patient is unable to swallow or has mental status changes, Starting on Mon04/11/22 at 2156
If blood glucose is < or = 70 mg/dL and patient is unable to swallow or has mental status changes (Give glucagon order if patient needs fluid restrictio n): IF IV access available: Dextrose 10%. 1. 125 mL (? bag) of D10W IV infusion - equivalent to 12.5 g dextrose 2. Blood glucose - draw blood glucose 15 minutes after D10W Administra tion. 3. If blood glucose is < 80 mg/dL, repeat.
dextrose 2022-0 Yes 250mL 250 mL, IV Un tabitha 10% (D10W) 2-28 Infusion, ity of bolus 03:56: PRN - SEE [place] infusion 05 INSTRUCTIO Medic al 250 mL NS, Branch Administer over 60 Minutes, Other, If blood glucose is < or = 70 mg/dL and patient is unable to swallow or has mental status changes, Starting on Mon04/11/22 at 2156
If blood glucose is < or = 70 mg/dL and patient is unable to swallow or has mental status changes (Give glucagon order if patient needs fluid restrictio n): IF IV access available: Dextrose 10%. 1. 125 mL (? bag) of D10W IV infusion - equivalent to 12.5 g dextrose 2. Blood glucose - draw blood glucose 15 minutes after D10W Administra tion. 3. If blood glucose is < 80 mg/dL, repeat.
glucagon 2022-0 Yes 1mg 1 mg, Univers (GLUCAGEN 2-28 Intramuscu ity of DIAGNOSTIC 03:56: lar, PRN, [place] KIT) 01 Starting Medical injection 1 on Mon [facility] 04/11/22 at 2156, Until Discontinu ed, MALI, Blood Glucose < or = 70 mg/dL and patient is NPO, unable to swallow or has mental changes. glucagon 2022-0 Yes 1mg 1 mg, Univers (GLUCAGEN 2-28 Intramuscu ity of DIAGNOSTIC 03:56: lar, PRN, [place] KIT) 01 Starting Medical injection 1 on Mon [facility] 04/11/22 at 2156, Until Discontinu ed, MALI, Blood Glucose < or = 70 mg/dL and patient is NPO, unable to swallow or has mental changes. ondansetron 2022-0 Yes 4mg 4 mg, Slow Univers (ZOFRAN 2-28 IV Push, ity of (PF)) 03:55: Q6HPRN, [place] injection 4 54 Starting Medi janis mg on Mon Branch 04/11/22 at 2155, Until Discontinu ed, Routine, Nausea and Vomiting (N/V) ondansetron 2022-0 Yes 4mg 4 mg, Slow Univers (ZOFRAN 04-12 IV Push, ity of (PF)) 03:55: Q6HPRN, [place] injection 4 54 Starting Medi janis mg on Mon Branch 04/11/22 at 2155, Until Discontinu ed, Routine, Nausea and Vomiting (N/V) morpHINE (2 2022- No 2mg 2 mg, Slow Univers mg/mL) 04-12 IV Push, ity of injection 2 03:55: 03:54 Q4HPRN, [place] mg 45 :45 Starting Medical on Mon Branch 04/11/22 at 2155, Until Tu04/12/22 at 2154, Routine, Pain (scale 7-10) acetaminoph 2022-0 Yes 650mg 650 mg, Un tabitha en 04-12 Oral, ity of (TYLENOL) 03:55: Q6HPRN, [place] tablet 650 39 Starting Medic al mg on Mon Branch 04/11/22 at 2155, Until Discontinu ed, Routine, Pain (scale 1-3) acetaminoph 2022-0 Yes 650mg 650 mg, Un tabitha en 04-12 Oral, ity of (TYLENOL) 03:55: Q6HPRN, [place] tablet 650 39 Starting Medic al mg on Mon04/11/22 at 2155, Until Discontinu ed, Routine, Pain (scale 1-3) vancomycin 2022-0 202- No 1500mg 1,500 mg, Univers 1500 mg in 04-12 IV ity of NS 500 mL 02:15: 05:53 Piggyback, [place] IV 00 :00 ONCE, 1 Medical Piggyback dose, On Branch RTU 1,500 Mon mg 04/11/22 at 2014, Administer over 90 Minutes, 500 mL
Reas on for Anti-Infec tive: Documented Infection< br>Documen ender Infection Site: Skin / Soft Tissue
Duration of Therapy: Other (see Comments) piperacilli 2022-0 2022- No [id number] 3.375g 3.375 g, Univers n-tazobacta 04-12 IV ity of m (ZOSYN) 00:45: 03:46 [place]gyback, [place] 3.375 g in 00 :00 ONCE, 1 Medica l NaCl 0.9% dose, On Branch (NS) 100 mL Mon MINI-BAG 04/11/22 at 1845, Administer over 30 Minutes, 100 mL
Reas on for Anti-Infec tive: Documented Infection< br>Documen ender Infection Site: Skin / Soft Tissue
Duration of Therapy: Other (see Comments) NaCl 0.9% 2022- No [id number] 1000mL at 1,000 Univers (NS) IV 04-11 mL/hr, IV ity of infusion 22:30: 03:59 Infusion, [place] 1,000 mL 00 :00 CONTINUOUS Medic al , Starting Branch on Mon04/11/22 at 1630, Until Mon04/11/22 at 2159, Routine FENTanyl PF 2022- No [id number] 50ug 50 mcg, Univers (SUBLIMAZE 04-11 Slow IV ity o f (PF)) 22:15: 21:53 Push, [place] injection 00 :00 ONCE, 1 Medical 50 mcg dose, On Branch Mon04/11/22 at 1615, Routine aspirin 325 Yes 1{tbl} Take 1 Un tabitha mg tablet 2-27 tablet by ity o f 21:54: mouth in [place] [address] the Medical morning. Branch meclizine Yes 1{tbl} Take 1 Univ ers 25 mg 2-27 tablet by ity of tablet 21:54: mouth in [place] [address] the Medical morning. Branch atorvastati Yes 1{tbl} Take 1 Un tabitha n 40 mg 2-27 tablet by ity of tablet 21:54: mouth at [place] [address] bedtime. Medical Branch glimepiride Yes 1{tbl} Take 1 Un tabitha 2 mg tablet 2-27 tablet by ity of 21:54: mouth in [place] [address] the Medical morning. Branch insulin NPH Yes 3 (three) U nivers and regular 2-27 times ity of human 70-30 21:54: [place] (NOVOLIN 41 Medical 70/30 U-100 Branch INSULIN) 100 unit/mL (70-30) injection aspirin 325 0 Yes 1{tbl} Take 1 Un tabitha mg tablet 2-27 tablet by ity o f 21:54: mouth in [place] [address] the Medical morning. Branch meclizine Yes 1{tbl} Take 1 Univ ers 25 mg 2-27 tablet by ity of tablet 21:54: mouth in [place] [address] the Medical morning. Branch atorvastati Yes 1{tbl} Take 1 Un tabitha n 40 mg 2-27 tablet by ity of tablet 21:54: mouth at [place] [address] bedtime. Medical Branch glimepiride Yes 1{tbl} Take 1 Un tabitha 2 mg tablet 2-27 tablet by ity of 21:54: mouth in [place] [address] the Medical morning. Branch insulin NPH Yes 3 (three) U nivers and regular 2-27 times ity of human 70-30 21:54: [place] (NOVOLIN 41 Medical 70/30 U-100 Branch INSULIN) 100 unit/mL (70-30) injection aspirin 325 0 Yes 1{tbl} Take 1 Un tabitha mg tablet 2-27 tablet by ity o f 21:54: mouth in [place] [address] the Medical morning. Branch meclizine Yes 1{tbl} Take 1 Univ ers 25 mg 2-27 tablet by ity of tablet 21:54: mouth in [place] [address] the Medical morning. Branch atorvastati Yes 1{tbl} Take 1 Un tabitha n 40 mg 2-27 tablet by ity of tablet 21:54: mouth at [place] [address] bedtime. Medical Branch glimepiride Yes 1{tbl} Take 1 Un tabitha 2 mg tablet 2-27 tablet by ity of 21:54: mouth in [place] [address] the Medical morning. Branch insulin NPH 0 Yes 3 (three) U nivers and regular 2-27 times ity of human 70-30 21:54: [place] (NOVOLIN 41 Medical 70/30 U-100 Branch INSULIN) 100 unit/mL (70-30) injection aspirin 325 0 Yes 1{tbl} Take 1 Un tabitha mg tablet 2-27 tablet by ity o f 21:54: mouth in [place] [address] the Medical morning. Branch meclizine Yes 1{tbl} Take 1 Univ ers 25 mg 2-27 tablet by ity of tablet 21:54: mouth in [place] [address] the Medical morning. Branch atorvastati Yes 1{tbl} Take 1 Un tabitha n 40 mg 2-27 tablet by ity of tablet 21:54: mouth at [place] [address] bedtime. Medical Branch glimepiride Yes 1{tbl} Take 1 Un tabitha 2 mg tablet 2-27 tablet by ity of 21:54: mouth in [place] [address] the Medical morning. Branch insulin NPH Yes 3 (three) U nivers and regular 2-27 times ity of human 70-30 21:54: [place] (NOVOLIN 41 Medical 70/30 U-100 Branch INSULIN) 100 unit/mL (70-30) injection ondansetron 2022- No [id number] 4mg 4 mg, Slow Univers (ZOFRAN -04-11 IV Push, ity of (PF)) 21:30: 21:53 ONCE, 1 [place] injection 4 00 :00 dose, On Medi janis mg Mon [place] 04/11/22 at 1530, MALI aspirin 325 Yes 1{tbl} Take 1 Un tabitha mg tablet 2-21 tablet by ity o f 15:42: mouth in [place] 14 the Medical morning. Branch meclizine Yes 1{tbl} Take 1 Univ ers 25 mg 2-21 tablet by ity of tablet 15:42: mouth in [place] 14 the Medical morning. Branch atorvastati Yes 1{tbl} Take 1 Un tabitha n 40 mg 2-21 tablet by ity of tablet 15:42: mouth at [place] [address] bedtime. Medical Branch glimepiride Yes 1{tbl} Take 1 Un tabitha 2 mg tablet 2-21 tablet by ity of 15:42: mouth in [place] 14 the Medical morning. Branch insulin NPH Yes 3 (three) U nivers and regular 2-21 times ity of human 70-30 15:42: [place] (NOVOLIN 14 Medical 70/30 U-100 Branch INSULIN) 100 unit/mL (70-30) injection aspirin 325 2022-0 Yes 1{tbl} Take 1 Un tabitha mg tablet 2-21 tablet by ity o f 15:42: mouth in [place] 14 the Medical morning. Branch meclizine 2022-0 Yes 1{tbl} Take 1 Univ ers 25 mg 2-21 tablet by ity of tablet 15:42: mouth in [place] 14 the Medical morning. Branch atorvastati 2022-0 Yes 1{tbl} Take 1 Un tabitha n 40 mg 2-21 tablet by ity of tablet 15:42: mouth at [place] [address] bedtime. Medical Branch glimepiride 0 Yes 1{tbl} Take 1 Un tabitha 2 mg tablet 2-21 tablet by ity of 15:42: mouth in [place] [address] the Medical morning. Branch insulin NPH 2022-0 Yes 3 (three) U nivers and regular 2-21 times ity of human 70-30 15:42: [place] (NOVOLIN 14 Medical 70/30 U-100 Branch INSULIN) 100 unit/mL (70-30) injection aspirin 325 2022-0 Yes 1{tbl} Take 1 Un tabitha mg tablet 2-21 tablet by ity o f 15:42: mouth in [place] 14 the Medical morning. Branch meclizine 0 Yes 1{tbl} Take 1 Univ ers 25 mg 2-21 tablet by ity of tablet 15:42: mouth in [place] 14 the Medical morning. Branch atorvastati 2022-0 Yes 1{tbl} Take 1 Un tabitha n 40 mg 2-21 tablet by ity of tablet 15:42: mouth at [place] [address] bedtime. Medical Branch glimepiride 2022-0 Yes 1{tbl} Take 1 Un tabitha 2 mg tablet 2-21 tablet by ity of 15:42: mouth in [place] 14 the Medical morning. Branch insulin NPH 2022-0 Yes 3 (three) U nivers and regular 2-21 times ity of human 70-30 15:42: [place] (NOVOLIN 14 Medical 70/30 U-100 Branch INSULIN) 100 unit/mL (70-30) injection aspirin 325 2022-0 Yes 1{tbl} Take 1 Un tabitha mg tablet 2-21 tablet by ity o f 15:42: mouth in [place] 14 the Medical morning. Branch meclizine Yes 1{tbl} Take 1 Univ ers 25 mg 2-21 tablet by ity of tablet 15:42: mouth in [place] 14 the Medical morning. Branch atorvastati Yes 1{tbl} Take 1 Un tabitha n 40 mg 2-21 tablet by ity of tablet 15:42: mouth at [place] [address] bedtime. Medical Branch glimepiride Yes 1{tbl} Take 1 Un tabitha 2 mg tablet 2-21 tablet by ity of 15:42: mouth in [place] 14 the Medical morning. Branch insulin NPH Yes 3 (three) U nivers and regular 2-21 times ity of human 70-30 15:42: [place] (NOVOLIN 14 Medical 70/30 U-100 Branch INSULIN) 100 unit/mL (70-30) injection aspirin 325 2022- Yes 1{tbl} Take 1 Un tabitha mg tablet 2-21 tablet by ity o f 15:42: mouth in [place] [address] the Medical morning. Branch meclizine Yes 1{tbl} Take 1 Univ ers 25 mg 2-21 tablet by ity of tablet 15:42: mouth in [place] 14 the Medical morning. Branch atorvastati Yes 1{tbl} Take 1 Un tabitha n 40 mg 2-21 tablet by ity of tablet 15:42: mouth at [place] [address] bedtime. Medical Branch glimepiride Yes 1{tbl} Take 1 Un tabitha 2 mg tablet 2-21 tablet by ity of 15:42: mouth in [place] 14 the Medical morning. Branch insulin NPH 0 Yes 3 (three) U nivers and regular 2-21 times ity of human 70-30 15:42: [place] (NOVOLIN 14 Medical 70/30 U-100 Branch INSULIN) 100 unit/mL (70-30) injection aspirin 325 2022-0 Yes 1{tbl} Take 1 Un tabitha mg tablet 2-21 tablet by ity o f 15:42: mouth in [place] 14 the Medical morning. Branch meclizine 2023-0 Yes 1{tbl} Take 1 Univ ers 25 mg 2-21 tablet by ity of tablet 15:42: mouth in [place] [address] the Medical morning. Branch atorvastati Yes 1{tbl} Take 1 Un tabitha n 40 mg 2-21 tablet by ity of tablet 15:42: mouth at [place] [address] bedtime. Medical Branch glimepiride Yes 1{tbl} Take 1 Un tabitha 2 mg tablet 2-21 tablet by ity of 15:42: mouth in [place] [address] the Medical morning. Branch insulin NPH Yes 3 (three) U nivers and regular 2-21 times ity of human 70-30 15:42: [place] (NOVOLIN 14 Medical 70/30 U-100 Branch INSULIN) 100 unit/mL (70-30) injection aspirin 325 Yes 1{tbl} Take 1 Un tabitha mg tablet 2-21 tablet by ity o f 15:42: mouth in [place] [address] the Medical morning. Branch meclizine Yes 1{tbl} Take 1 Univ ers 25 mg 2-21 tablet by ity of tablet 15:42: mouth in [place] [address] the Medical morning. Branch atorvastati Yes 1{tbl} Take 1 Un tabitha n 40 mg 2-21 tablet by ity of tablet 15:42: mouth at [place] [address] bedtime. Medical Branch glimepiride Yes 1{tbl} Take 1 Un tabitha 2 mg tablet 2-21 tablet by ity of 15:42: mouth in [place] [address] the Medical morning. Branch insulin NPH Yes 3 (three) U nivers and regular 2-21 times ity of human 70-30 15:42: [place] (NOVOLIN 14 Medical 70/30 U-100 Branch INSULIN) 100 unit/mL (70-30) injection predniSONE 2022- No as needed. Univers 5 mg tablet -05 04- ity of 12:34: 00:00 [place] 18 :00 Medical Branch predniSONE 2022-2022- No as needed. Univers 5 mg tablet -05 04- ity of 12:34: 00:00 [place] 18 :00 Medical Branch vitamin C 2022- No [id number] 1000mg Take 1 Univers with kurt 2-21 03-22 tablet by ity of hips 00:00: 04:59 mouth in [place] (VITAMIN C) 00 :00 the Medical 1,000 mg morning Branch tablet for 28 days. vitamin C 2022- No [id number] 1000mg Take 1 Univers with kurt 2-21 03-22 tablet by ity of hips 00:00: 04:59 mouth in [place] (VITAMIN C) 00 :00 the Medical 1,000 mg morning Branch tablet for 28 days. vitamin C 2022- No [id number] 1000mg Take 1 Univers with kurt 2-21 03-22 tablet by ity of hips 00:00: 04:59 mouth in [place] (VITAMIN C) 00 :00 the Medical 1,000 mg morning Branch tablet for 28 days. vitamin C 2022- No [id number] 1000mg Take 1 Univers with kurt 2-21 03-22 tablet by ity of hips 00:00: 04:59 mouth in [place] (VITAMIN C) 00 :00 the Medical 1,000 mg morning Branch tablet for 28 days. vitamin C 2022- No [id number] 1000mg Take 1 Univers with kurt 2-21 03-22 tablet by ity of hips 00:00: 04:59 mouth in [place] (VITAMIN C) 00 :00 the Medical 1,000 mg morning Branch tablet for 28 days. vitamin C 2022- No [id number] 1000mg Take 1 Univers with kurt 2-21 03-22 tablet by ity of hips 00:00: 04:59 mouth in [place] (VITAMIN C) 00 :00 the Medical 1,000 mg morning Branch tablet for 28 days. vitamin C 2022- No [id number] 1000mg Take 1 Univers with kurt 2-21 03-22 tablet by ity of hips 00:00: 04:59 mouth in [place] (VITAMIN C) 00 :00 the Medical 1,000 mg morning Branch tablet for 28 days. vitamin C 2022-0 2022- No [id number] 1000mg Take 1 Univers with kurt 2-21 03-22 tablet by ity of hips 00:00: 04:59 mouth in [place] (VITAMIN C) 00 :00 the Medical 1,000 mg morning Branch tablet for 28 days. vitamin C 2022- No [id number] 1000mg Take 1 Univers with kurt 2-21 03-22 tablet by ity of hips 00:00: 04:59 mouth in [place] (VITAMIN C) 00 :00 the Medical 1,000 mg morning Branch tablet for 28 days. vitamin C 2022- No [id number] 1000mg Take 1 Univers with kurt 2-21 03-22 tablet by ity of hips 00:00: 04:59 mouth in [place] (VITAMIN C) 00 :00 the Medical 1,000 mg morning Branch tablet for 28 days. vitamin C 2022- No [id number] 1000mg Take 1 Univers with kurt 2-21 03-22 tablet by ity of hips 00:00: 04:59 mouth in [place] (VITAMIN C) 00 :00 the Medical 1,000 mg morning Branch tablet for 28 days. vitamin C 2022- No [id number] 1000mg Take 1 Univers with kurt 2-21 03-22 tablet by ity of hips 00:00: 04:59 mouth in [place] (VITAMIN C) 00 :00 the Medical 1,000 mg morning Branch tablet for 28 days. vitamin C 2022- No [id number] 1000mg Take 1 Univers with kurt 2-21 03-22 tablet by ity of hips 00:00: 04:59 mouth in [place] (VITAMIN C) 00 :00 the Medical 1,000 mg morning Branch tablet for 28 days. vitamin C 2022- No [id number] 1000mg Take 1 Univers with kurt 2-21 03-22 tablet by ity of hips 00:00: 04:59 mouth in [place] (VITAMIN C) 00 :00 the Medical 1,000 mg morning Branch tablet for 28 days. vitamin C 2022- No [id number] 1000mg Take 1 Univers with kurt 2-21 03-22 tablet by ity of hips 00:00: 04:59 mouth in [place] (VITAMIN C) 00 :00 the Medical 1,000 mg morning Branch tablet for 28 days. vitamin C 0 2022- No [id number] 1000mg Take 1 Univers with kurt 2-21 03-22 tablet by ity of hips 00:00: 04:59 mouth in [place] (VITAMIN C) 00 :00 the Medical 1,000 mg morning Branch tablet for 28 days. vitamin C 2022- No [id number] 1000mg Take 1 Univers with kurt 2-21 03-22 tablet by ity of hips 00:00: 04:59 mouth in [place] (VITAMIN C) 00 :00 the Medical 1,000 mg morning Branch tablet for 28 days. vitamin C 2022- No [id number] 1000mg Take 1 Univers with kurt 2-21 03-22 tablet by ity of hips 00:00: 04:59 mouth in [place] (VITAMIN C) 00 :00 the Medical 1,000 mg morning Branch tablet for 28 days. vitamin C 2022- No [id number] 1000mg Take 1 Univers with kurt 2-21 03-22 tablet by ity of hips 00:00: 04:59 mouth in [place] (VITAMIN C) 00 :00 the Medical 1,000 mg morning Branch tablet for 28 days. vitamin C 2022- No [id number] 1000mg Take 1 Univers with kurt 2-21 03-22 tablet by ity of hips 00:00: 04:59 mouth in [place] (VITAMIN C) 00 :00 the Medical 1,000 mg morning Branch tablet for 28 days. vitamin C 2022- No [id number] 1000mg Take 1 Univers with kurt 2-21 03-22 tablet by ity of hips 00:00: 04:59 mouth in [place] (VITAMIN C) 00 :00 the Medical 1,000 mg morning Branch tablet for 28 days. vitamin C 2022- No [id number] 1000mg Take 1 Univers with kurt 2-21 03-22 tablet by ity of hips 00:00: 04:59 mouth in [place] (VITAMIN C) 00 :00 the Medical 1,000 mg morning Branch tablet for 28 days. vitamin C 2022- No [id number] 1000mg Take 1 Univers with kurt 2-21 03-22 tablet by ity of hips 00:00: 04:59 mouth in [place] (VITAMIN C) 00 :00 the Medical 1,000 mg morning Branch tablet for 28 days. vitamin C 2022- No [id number] 1000mg Take 1 Univers with kurt 2-21 03-22 tablet by ity of hips 00:00: 04:59 mouth in [place] (VITAMIN C) 00 :00 the Medical 1,000 mg morning Branch tablet for 28 days. vitamin C 2022- No [id number] 1000mg Take 1 Univers with kurt 2-21 03-22 tablet by ity of hips 00:00: 04:59 mouth in [place] (VITAMIN C) 00 :00 the Medical 1,000 mg morning Branch tablet for 28 days. HYDROcodone No 46 1{tbl} Take 1 U nivers -acetaminop 2-03 05- tablet by it y of hen 5-325 00:00: 00:00 mouth [place] mg tablet 00 :00 every 6 Medical (six) Branch hours as needed for Pain (scale 4-6) or Pain (scale 7-10) for up to 7 days. Indication s: acute pain HYDROcodone No 4647 1{tbl} Take 1 U nivers -acetaminop 2-21 - tablet by it y of hen 5-325 00:00: 00:00 mouth [place] mg tablet 00 :00 every 6 Medical (six) Branch hours as needed for Pain (scale 4-6) or Pain (scale 7-10) for up to 7 days. Indication s: acute pain HYDROcodone No 4647 1{tbl} Take 1 U nivers -acetaminop 2-03 05- tablet by it y of hen 5-325 00:00: 05:59 mouth [place] mg tablet 00 :00 every 6 Medical (six) Branch hours as needed for Pain (scale 4-6) or Pain (scale 7-10) for up to 7 days. Indication s: acute pain HYDROcodone No 4647 1{tbl} Take 1 U nivers -acetaminop 2-21 - tablet by it y of hen 5-325 00:00: 05:59 mouth [place] mg tablet 00 :00 every 6 Medical (six) Branch hours as needed for Pain (scale 4-6) or Pain (scale 7-10) for up to 7 days. Indication s: acute pain HYDROcodone No 4647 1{tbl} Take 1 U nivers -acetaminop 2-21 - tablet by it y of hen 5-325 00:00: 05:59 mouth [place] mg tablet 00 :00 every 6 Medical (six) Branch hours as needed for Pain (scale 4-6) or Pain (scale 7-10) for up to 7 days. Indication s: acute pain HYDROcodone No 4647 1{tbl} Take 1 U nivers -acetaminop 2-21 03-01 tablet by it y of hen 5-325 00:00: 05:59 mouth [place] mg tablet 00 :00 every 6 Medical (six) Branch hours as needed for Pain (scale 4-6) or Pain (scale 7-10) for up to 7 days. Indication s: acute pain HYDROcodone No 4647 1{tbl} Take 1 U nivers -acetaminop 2-21 03-01 tablet by it y of hen 5-325 00:00: 05:59 mouth [place] mg tablet 00 :00 every 6 Medical (six) Branch hours as needed for Pain (scale 4-6) or Pain (scale 7-10) for up to 7 days. Indication s: acute pain HYDROcodone No 4647 1{tbl} Take 1 U nivers -acetaminop 2-21 03-01 tablet by it y of hen 5-325 00:00: 05:59 mouth [place] mg tablet 00 :00 every 6 Medical (six) Branch hours as needed for Pain (scale 4-6) or Pain (scale 7-10) for up to 7 days. Indication s: acute pain HYDROcodone No 4647 1{tbl} Take 1 U nivers -acetaminop 2-21 -01 tablet by it y of hen 5-325 00:00: 05:59 mouth [place] mg tablet 00 :00 every 6 Medical (six) Branch hours as needed for Pain (scale 4-6) or Pain (scale 7-10) for up to 7 days. Indication s: acute pain HYDROcodone No 4647 1{tbl} Take 1 U nivers -acetaminop 2-21 03-01 tablet by it y of hen 5-325 00:00: 05:59 mouth [place] mg tablet 00 :00 every 6 Medical (six) Branch hours as needed for Pain (scale 4-6) or Pain (scale 7-10) for up to 7 days. Indication s: acute pain HYDROcodone No 4647 1{tbl} Take 1 U nivers -acetaminop 2-21 03-01 tablet by it y of hen 5-325 00:00: 05:59 mouth [place] mg tablet 00 :00 every 6 Medical (six) Branch hours as needed for Pain (scale 4-6) or Pain (scale 7-10) for up to 7 days. Indication s: acute pain HYDROcodone 3-0 3- No 4647 1{tbl} Take 1 U nivers -acetaminop 2-21 03-01 tablet by it y of hen 5-325 00:00: 05:59 mouth [place] mg tablet 00 :00 every 6 Medical (six) Branch hours as needed for Pain (scale 4-6) or Pain (scale 7-10) for up to 7 days. Indication s: acute pain HYDROcodone 2022-0 3- No 4647 1{tbl} Take 1 U nivers -acetaminop 2-21 03-01 tablet by it y of hen 5-325 00:00: 05:59 mouth [place] mg tablet 00 :00 every 6 Medical (six) Branch hours as needed for Pain (scale 4-6) or Pain (scale 7-10) for up to 7 days. Indication s: acute pain FEROSUL 325 2023-0 Yes [id number] 325mg Take 1 Univers mg (65 mg 2-20 tablet by ity o f iron) 00:00: mouth in [place] tablet 00 the Medical morning Branch and 1 tablet in the evening. FEROSUL 325 2023-0 Yes [id number] 325mg Take 1 Univers mg (65 mg 2-20 tablet by ity o f iron) 00:00: mouth in [place] tablet 00 the Medical morning Branch and 1 tablet in the evening. FEROSUL 325 2023-0 Yes [id number] 325mg Take 1 Univers mg (65 mg 2-20 tablet by ity o f iron) 00:00: mouth in [place] tablet 00 the Medical morning Branch and 1 tablet in the evening. FEROSUL 325 2023-0 Yes [id number] 325mg Take 1 Univers mg (65 mg 2-20 tablet by ity o f iron) 00:00: mouth in [place] tablet 00 the Medical morning Branch and 1 tablet in the evening. FEROSUL 325 2023-0 Yes [id number] 325mg Take 1 [facility] mg (65 mg 2-20 tablet by ity o f iron) 00:00: mouth in [place] tablet 00 the Medical morning Branch and 1 tablet in the evening. FEROSUL 325 2023-0 Yes [id number] 325mg Take 1 [facility] mg (65 mg 2-20 tablet by ity o f iron) 00:00: mouth in [place] tablet 00 the Medical morning Branch and 1 tablet in the evening. FEROSUL 325 2023-0 Yes [id number] 325mg Take 1 [facility] mg (65 mg 2-20 tablet by ity o f iron) 00:00: mouth in [place] tablet 00 the Medical morning Branch and 1 tablet in the evening. FEROSUL 325 2023-0 Yes [id number] 325mg Take 1 [facility] mg (65 mg 2-20 tablet by ity o f iron) 00:00: mouth in [place] tablet 00 the Medical morning Branch and 1 tablet in the evening. FEROSUL 325 2023-0 Yes [id number] 325mg Take 1 [facility] mg (65 mg 2-20 tablet by ity o f iron) 00:00: mouth in [place] tablet 00 the Medical morning Branch and 1 tablet in the evening. FEROSUL 325 2023-0 Yes [id number] 325mg Take 1 [facility] mg (65 mg 2-20 tablet by it[facility] o f iron) 00:00: mouth in [place] tablet 00 the Medical morning Branch and 1 tablet in the evening. FEROSUL 325 2023-0 Yes [id number] 325mg Take 1 [facility] mg (65 mg 2-20 tablet by ity o f iron) 00:00: mouth in [place] tablet 00 the Medical morning Branch and 1 tablet in the evening. FEROSUL 325 2023-0 Yes [id number] 325mg Take 1 [facility] mg (65 mg 2-20 tablet by ity o f iron) 00:00: mouth in [place] tablet 00 the Medical morning Branch and 1 tablet in the evening. FEROSUL 325 2023-0 Yes [id number] 325mg Take 1 [facility] mg (65 mg 2-20 tablet by ity o f iron) 00:00: mouth in [place] tablet 00 the Medical morning Branch and 1 tablet in the evening. FEROSUL 325 2023-0 Yes [id number] 325mg Take 1 [facility] mg (65 mg 2-20 tablet by ity o f iron) 00:00: mouth in [place] tablet 00 the Medical morning Branch and 1 tablet in the evening. FEROSUL 325 2023-0 Yes [id number] 325mg Take 1 [facility] mg (65 mg 2-20 tablet by ity o f iron) 00:00: mouth in [place] tablet 00 the Medical morning Branch and 1 tablet in the evening. FEROSUL 325 2023-0 Yes [id number] 325mg Take 1 [facility] mg (65 mg 2-20 tablet by [facility]y o f iron) 00:00: mouth in [place] tablet 00 the Medical morning Branch and 1 tablet in the evening. FEROSUL 325 2023-0 Yes [id number] 325mg Take 1 [facility] mg (65 mg 2-20 tablet by ity o f iron) 00:00: mouth in [place] tablet 00 the Medical morning Branch and 1 tablet in the evening. FEROSUL 325 2023-0 Yes [id number] 325mg Take 1 [facility] mg (65 mg 2-20 tablet by ity o f iron) 00:00: mouth in [place] tablet 00 the Medical morning Branch and 1 tablet in the evening. FEROSUL 325 2023-0 Yes [id number] 325mg Take 1 [facility] mg (65 mg 2-20 tablet by ity o f iron) 00:00: mouth in [place] tablet 00 the Medical morning Branch and 1 tablet in the evening. FEROSUL 325 2023-0 Yes [id number] 325mg Take 1 [facility] mg (65 mg 2-20 tablet by ity o f iron) 00:00: mouth in [place] tablet 00 the Medical morning Branch and 1 tablet in the evening. FEROSUL 325 2023-0 Yes [id number] 325mg Take 1 [facility] mg (65 mg 2-20 tablet by ity o f iron) 00:00: mouth in [place] tablet 00 the Medical morning Branch and 1 tablet in the evening. FEROSUL 325 2023-0 Yes [id number] 325mg Take 1 [facility] mg (65 mg 2-20 tablet by ity o f iron) 00:00: mouth in [place] tablet 00 the Medical morning Branch and 1 tablet in the evening. FEROSUL 325 2023-0 Yes [id number] 325mg Take 1 [facility] mg (65 mg 2-20 tablet by [facility]y o f iron) 00:00: mouth in [place] tablet 00 the Medical morning Branch and 1 tablet in the evening. FEROSUL 325 2023-0 Yes [id number] 325mg Take 1 [facility] mg (65 mg 2-20 tablet by ity o f iron) 00:00: mouth in [place] tablet 00 the Medical morning Branch and 1 tablet in the evening. FEROSUL 325 2023-0 Yes [id number] 325mg Take 1 [facility] mg (65 mg 2-20 tablet by ity o f iron) 00:00: mouth in [place] tablet 00 the Medical morning Branch and 1 tablet in the evening. FEROSUL 325 2023-0 Yes [id number] 325mg Take 1 [facility] mg (65 mg 2-20 tablet by [facility]y o f iron) 00:00: mouth in [place] tablet 00 the Medical morning Branch and 1 tablet in the evening. FEROSUL 325 2023-0 Yes [id number] 325mg Take 1 [facility] mg (65 mg 2-20 tablet by ity o f iron) 00:00: mouth in [place] tablet 00 the Medical morning Branch and 1 tablet in the evening. FEROSUL 325 2023-0 Yes [id number] 325mg Take 1 [facility] mg (65 mg 2-20 tablet by ity o f iron) 00:00: mouth in [place] tablet 00 the Medical morning Branch and 1 tablet in the evening. FEROSUL 325 2023-0 Yes [id number] 325mg Take 1 [facility] mg (65 mg 2-20 tablet by ity o f iron) 00:00: mouth in [place] tablet 00 the Medical morning Branch and 1 tablet in the evening. FEROSUL 325 2023-0 Yes [id number] 325mg Take 1 [facility] mg (65 mg 2-20 tablet by ity o f iron) 00:00: mouth in [place] tablet 00 the Medical morning Branch and 1 tablet in the evening. FEROSUL 325 2023-0 Yes [id number] 325mg Take 1 [facility] mg (65 mg 2-20 tablet by ity o f iron) 00:00: mouth in [place] tablet 00 the Medical morning Branch and 1 tablet in the evening. FEROSUL 325 2023-0 Yes [id number] 325mg Take 1 [facility] mg (65 mg 2-20 tablet by ity o f iron) 00:00: mouth in [place] tablet 00 the Medical morning Branch and 1 tablet in the evening. FEROSUL 325 2023-0 Yes [id number] 325mg Take 1 [facility] mg (65 mg 2-20 tablet by ity o f iron) 00:00: mouth in [place] tablet 00 the Medical morning Branch and 1 tablet in the evening. FEROSUL 325 2023-0 Yes [id number] 325mg Take 1 [facility] mg (65 mg 2-20 tablet by ity o f iron) 00:00: mouth in [place] tablet 00 the Medical morning Branch and 1 tablet in the evening. FEROSUL 325 2023-0 Yes [id number] 325mg Take 1 [facility] mg (65 mg 2-20 tablet by ity o f iron) 00:00: mouth in [place] tablet 00 the Medical morning Branch and 1 tablet in the evening. FEROSUL 325 2023-0 Yes [id number] 325mg Take 1 [facility] mg (65 mg 2-20 tablet by ity o f iron) 00:00: mouth in [place] tablet 00 the Medical morning Branch and 1 tablet in the evening. FEROSUL 325 2023-0 Yes [id number] 325mg Take 1 [facility] mg (65 mg 2-20 tablet by [facility] o f iron) 00:00: mouth in [place] tablet 00 the Medical morning Branch and 1 tablet in the evening. FEROSUL 325 2023-0 Yes [id number] 325mg Take 1 [facility] mg (65 mg 2-20 tablet by [facility] o f iron) 00:00: mouth in [place] tablet 00 the Medical morning Branch and 1 tablet in the evening. FEROSUL 325 2023-0 Yes [id number] 325mg Take 1 [facility] mg (65 mg 2-20 tablet by [facility] o f iron) 00:00: mouth in [place] tablet 00 the Medical morning Branch and 1 tablet in the evening. FEROSUL 325 2023-0 Yes [id number] 325mg Take 1 [facility] mg (65 mg 2-20 tablet by [facility] o f iron) 00:00: mouth in [place] tablet 00 the Medical morning Branch and 1 tablet in the evening. FEROSUL 325 2023-0 Yes [id number] 325mg Take 1 [facility] mg (65 mg 2-20 tablet by [facility]y o f iron) 00:00: mouth in [place] tablet 00 the Medical morning Branch and 1 tablet in the evening. FEROSUL 325 2023-0 Yes [id number] 325mg Take 1 [facility] mg (65 mg 2-20 tablet by [facility] o f iron) 00:00: mouth in [place] tablet 00 the Medical morning Branch and 1 tablet in the evening. FEROSUL 325 2023-0 Yes [id number] 325mg Take 1 [facility] mg (65 mg 2-20 tablet by [facility] o f iron) 00:00: mouth in [place] tablet 00 the Medical morning Branch and 1 tablet in the evening. FEROSUL 325 2023-0 Yes [id number] 325mg Take 1 [facility] mg (65 mg 2-20 tablet by [facility] o f iron) 00:00: mouth in [place] tablet 00 the Medical morning Branch and 1 tablet in the evening. FEROSUL 325 2023-0 Yes [id number] 325mg Take 1 [facility] mg (65 mg 2-20 tablet by [facility] o f iron) 00:00: mouth in [place] tablet 00 the Medical morning Branch and 1 tablet in the evening. FEROSUL 325 2023-0 Yes [id number] 325mg Take 1 [facility] mg (65 mg 2-20 tablet by ity o f iron) 00:00: mouth in [place] tablet 00 the Medical morning Branch and 1 tablet in the evening. FEROSUL 325 2023-0 Yes [id number] 325mg Take 1 [facility] mg (65 mg 2-20 tablet by [facility] o f iron) 00:00: mouth in [place] tablet 00 the Medical morning Branch and 1 tablet in the evening. FEROSUL 325 2023-0 Yes [id number] 325mg Take 1 [facility] mg (65 mg 2-20 tablet by ity o f iron) 00:00: mouth in [place] tablet 00 the Medical morning Branch and 1 tablet in the evening. FEROSUL 325 2023-0 Yes [id number] 325mg Take 1 [facility] mg (65 mg 2-20 tablet by it[facility] o f iron) 00:00: mouth in [place] tablet 00 the Medical morning Branch and 1 tablet in the evening. FEROSUL 325 2023-0 Yes [id number] 325mg Take 1 [facility] mg (65 mg 2-20 tablet by [facility] o f iron) 00:00: mouth in [place] tablet 00 the Medical morning Branch and 1 tablet in the evening. FEROSUL 325 2023-0 Yes [id number] 325mg Take 1 [facility] mg (65 mg 2-20 tablet by [facility] o f iron) 00:00: mouth in [place] tablet 00 the Medical morning Branch and 1 tablet in the evening. FEROSUL 325 2023-0 Yes [id number] 325mg Take 1 [facility] mg (65 mg 2-20 tablet by [facility] o f iron) 00:00: mouth in [place] tablet 00 the Medical morning Branch and 1 tablet in the evening. FEROSUL 325 2023-0 Yes [id number] 325mg Take 1 [facility] mg (65 mg 2-20 tablet by [facility] o f iron) 00:00: mouth in [place] tablet 00 the Medical morning Branch and 1 tablet in the evening. FEROSUL 325 2023-0 Yes [id number] 325mg Take 1 [facility] mg (65 mg 2-20 tablet by [facility] o f iron) 00:00: mouth in [place] tablet 00 the Medical morning Branch and 1 tablet in the evening. FEROSUL 325 2023-0 Yes [id number] 325mg Take 1 [facility] mg (65 mg 2-20 tablet by [facility] o f iron) 00:00: mouth in [place] tablet 00 the Medical morning Branch and 1 tablet in the evening. FEROSUL 325 2023-0 Yes [id number] 325mg Take 1 [facility] mg (65 mg 2-20 tablet by ity o f iron) 00:00: mouth in [place] tablet 00 the Medical morning Branch and 1 tablet in the evening. FEROSUL 325 2023-0 Yes [id number] 325mg Take 1 [facility] mg (65 mg 2-20 tablet by ity o f iron) 00:00: mouth in [place] tablet 00 the Medical morning Branch and 1 tablet in the evening. FEROSUL 325 2023-0 Yes [id number] 325mg Take 1 [facility] mg (65 mg 2-20 tablet by [facility] o f iron) 00:00: mouth in [place] tablet 00 the Medical morning Branch and 1 tablet in the evening. FEROSUL 325 2023-0 Yes [id number] 325mg Take 1 [facility] mg (65 mg 2-20 tablet by it[facility] o f iron) 00:00: mouth in [place] tablet 00 the Medical morning Branch and 1 tablet in the evening. FEROSUL 325 2023-0 Yes [id number] 325mg Take 1 [facility] mg (65 mg 2-20 tablet by [facility] o f iron) 00:00: mouth in [place] tablet 00 the Medical morning Branch and 1 tablet in the evening. FEROSUL 325 2023-0 Yes [id number] 325mg Take 1 [facility] mg (65 mg 2-20 tablet by ity o f iron) 00:00: mouth in [place] tablet 00 the Medical morning Branch and 1 tablet in the evening. FEROSUL 325 2023-0 Yes [id number] 325mg Take 1 [facility] mg (65 mg 2-20 tablet by ity o f iron) 00:00: mouth in [place] tablet 00 the Medical morning Branch and 1 tablet in the evening. FEROSUL 325 2023-0 Yes [id number] 325mg Take 1 [facility] mg (65 mg 2-20 tablet by it[facility] o f iron) 00:00: mouth in [place] tablet 00 the Medical morning Branch and 1 tablet in the evening. FEROSUL 325 2023-0 Yes [id number] 325mg Take 1 [facility] mg (65 mg 2-20 tablet by ity o f iron) 00:00: mouth in [place] tablet 00 the Medical morning Branch and 1 tablet in the evening. FEROSUL 325 2023-0 Yes [id number] 325mg Take 1 [facility] mg (65 mg 2-20 tablet by ity o f iron) 00:00: mouth in [place] tablet 00 the Medical morning Branch and 1 tablet in the evening. FEROSUL 325 2023-0 Yes [id number] 325mg Take 1 [facility] mg (65 mg 2-20 tablet by ity o f iron) 00:00: mouth in [place] tablet 00 the Medical morning Branch and 1 tablet in the evening. FEROSUL 325 2023-0 Yes [id number] 325mg Take 1 [facility] mg (65 mg 2-20 tablet by ity o f iron) 00:00: mouth in [place] tablet 00 the Medical morning Branch and 1 tablet in the evening. FEROSUL 325 2023-0 Yes [id number] 325mg Take 1 [facility] mg (65 mg 2-20 tablet by ity o f iron) 00:00: mouth in [place] tablet 00 the Medical morning Branch and 1 tablet in the evening. FEROSUL 325 2023-0 Yes [id number] 325mg Take 1 [facility] mg (65 mg 2-20 tablet by ity o f iron) 00:00: mouth in [place] tablet 00 the Medical morning Branch and 1 tablet in the evening. FEROSUL 325 2023-0 Yes [id number] 325mg Take 1 [facility] mg (65 mg 2-20 tablet by ity o f iron) 00:00: mouth in [place] tablet 00 the Medical morning Branch and 1 tablet in the evening. FEROSUL 325 2023-0 Yes [id number] 325mg Take 1 [facility] mg (65 mg 2-20 tablet by ity o f iron) 00:00: mouth in [place] tablet 00 the Medical morning Branch and 1 tablet in the evening. FEROSUL 325 2023-0 Yes [id number] 325mg Take 1 [facility] mg (65 mg 2-20 tablet by ity o f iron) 00:00: mouth in [place] tablet 00 the Medical morning Branch and 1 tablet in the evening. FEROSUL 325 2023-0 Yes [id number] 325mg Take 1 [facility] mg (65 mg 2-20 tablet by ity o f iron) 00:00: mouth in [place] tablet 00 the Medical morning Branch and 1 tablet in the evening. FEROSUL 325 2022-0 Yes [id number] 325mg Take 1 [facility] mg (65 mg 2-20 tablet by ity o f iron) 00:00: mouth in [place] tablet 00 the Medical morning Branch and 1 tablet in the evening. FEROSUL 325 2022-0 Yes [id number] 325mg Take 1 [facility] mg (65 mg 2-20 tablet by ity o f iron) 00:00: mouth in [place] tablet 00 the Medical morning Branch and 1 tablet in the evening. aspirin 325 Yes 1{tbl} Take 1 Un tabitha mg tablet 2-17 tablet by ity o f 18:19: mouth in [place] [address] the Medical morning. Branch meclizine Yes 1{tbl} Take 1 [facility] ers 25 mg 2-17 tablet by ity of tablet 18:19: mouth in [place] [address] the Medical morning. Branch atorvastati Yes 1{tbl} Take 1 Un tabitha n 40 mg 2-17 tablet by ity of tablet 18:19: mouth at [place] [address] bedtime. Medical Branch glimepiride Yes 1{tbl} Take 1 Un tabitha 2 mg tablet 2-17 tablet by ity of 18:19: mouth in [place] [address] the Medical morning. Branch predniSONE Yes as needed. U nivers 5 mg tablet 2-17 ity of 18:19: [place] [address] Medical Branch insulin NPH Yes 3 (three) U nivers and regular 2-17 times ity of human 70-30 18:19: [place] ([address] 70/30 U-100 Branch INSULIN) 100 unit/mL (70-30) injection aspirin 325 Yes 1{tbl} Take 1 Un tabitha mg tablet 2-17 tablet by ity o f 18:19: mouth in [place] [address] the Medical morning. Branch meclizine Yes 1{tbl} Take 1 [facility] ers 25 mg 2-17 tablet by ity of tablet 18:19: mouth in [place] [address] the Medical morning. Branch atorvastati Yes 1{tbl} Take 1 Un tabitha n 40 mg 2-17 tablet by ity of tablet 18:19: mouth at [place] [address] bedtime. Medical Branch glimepiride Yes 1{tbl} Take 1 Un tabitha 2 mg tablet 2-17 tablet by ity of 18:19: mouth in [place] [address] the Medical morning. Branch predniSONE Yes as needed. U nivers 5 mg tablet 2-17 ity of 18:19: [place] [address] Medical Branch insulin NPH Yes 3 (three) U nivers and regular 2-17 times ity of human 70-30 18:19: [place] (NOVOLIN Medical 70/30 U-100 Branch INSULIN) 100 unit/mL (70-30) injection cefdinir 2022- No [id number] 300mg Take 1 [facility] 300 mg 2-17 03-20 capsule by ity of capsule 00:00: 04:59 mouth [place] 00 :00 every 12 Medical (twelve) Branch hours for 30 days. cefdinir 2022- No [id number] 300mg Take 1 [facility] 300 mg 2-17 03-20 capsule by ity of capsule 00:00: 04:59 mouth [place] 00 :00 every 12 Medical (twelve) Branch hours for 30 days. cefdinir 2022- No [id number] 300mg Take 1 [facility] 300 mg 2-17 03-20 capsule by ity of capsule 00:00: 04:59 mouth [place] 00 :00 every 12 Medical (twelve) Branch hours for 30 days. cefdinir 2022- No [id number] 300mg Take 1 [facility] 300 mg 2-17 03-20 capsule by ity of capsule 00:00: 04:59 mouth [place] 00 :00 every 12 Medical (twelve) Branch hours for 30 days. cefdinir 2022-0 2022- No [id number] 300mg Take 1 [facility] 300 mg 2-17 03-20 capsule by ity of capsule 00:00: 04:59 mouth [place] 00 :00 every 12 Medical (twelve) Branch hours for 30 days. cefdinir 2022- No [id number] 300mg Take 1 [facility] 300 mg 2-17 03-20 capsule by ity of capsule 00:00: 04:59 mouth [place] 00 :00 every 12 Medical (twelve) Branch hours for 30 days. cefdinir 2023-0 2023- No [id number] 300mg Take 1 [facility] 300 mg 2-17 03-20 capsule by ity of capsule 00:00: 04:59 mouth [place] 00 :00 every 12 Medical ([facility]) Branch hours for 30 days. cefdinir 2023-0 2023- No [id number] 300mg Take 1 [facility] 300 mg 2-17 03-20 capsule by ity of capsule 00:00: 04:59 mouth [place] 00 :00 every 12 Medical ([facility]) Branch hours for 30 days. cefdinir 2023-0 2023- No [id number] 300mg Take 1 [facility] 300 mg 2-17 03-20 capsule by ity of capsule 00:00: 04:59 mouth [place] 00 :00 every 12 Medical ([facility]) Branch hours for 30 days. cefdinir 2023-0 2023- No [id number] 300mg Take 1 [facility] 300 mg 2-17 03-20 capsule by ity of capsule 00:00: 04:59 mouth [place] 00 :00 every 12 Medical ([facility]) Branch hours for 30 days. cefdinir 2023-0 2023- No [id number] 300mg Take 1 [facility] 300 mg 2-17 03-20 capsule by ity of capsule 00:00: 04:59 mouth [place] 00 :00 every 12 Medical ([facility]) Branch hours for 30 days. cefdinir 2023-0 2023- No [id number] 300mg Take 1 [facility] 300 mg 2-17 03-20 capsule by ity of capsule 00:00: 04:59 mouth [place] 00 :00 every 12 Medical ([facility]) Branch hours for 30 days. cefdinir 2023-0 2023- No [id number] 300mg Take 1 [facility] 300 mg 2-17 03-20 capsule by ity of capsule 00:00: 04:59 mouth [place] 00 :00 every 12 Medical (twelve) Branch hours for 30 days. cefdinir 2023-0 2023- No [id number] 300mg Take 1 [facility] 300 mg 2-17 03-20 capsule by ity of capsule 00:00: 04:59 mouth [place] 00 :00 every 12 Medical (twelve) Branch hours for 30 days. cefdinir 2023-0 2023- No [id number] 300mg Take 1 [facility] 300 mg 2-17 03-20 capsule by ity of capsule 00:00: 04:59 mouth [place] 00 :00 every 12 Medical (twelve) Branch hours for 30 days. cefdinir 2023-0 2023- No [id number] 300mg Take 1 [facility] 300 mg 2-17 03-20 capsule by ity of capsule 00:00: 04:59 mouth [place] 00 :00 every 12 Medical (twelve) Branch hours for 30 days. cefdinir 2023-0 2023- No [id number] 300mg Take 1 [facility] 300 mg 2-17 03-20 capsule by ity of capsule 00:00: 04:59 mouth [place] 00 :00 every 12 Medical (twelve) Branch hours for 30 days. cefdinir 2023-0 2023- No [id number] 300mg Take 1 [facility] 300 mg 2-17 03-20 capsule by ity of capsule 00:00: 04:59 mouth [place] 00 :00 every 12 Medical (twelve) Branch hours for 30 days. cefdinir 2023-0 2023- No [id number] 300mg Take 1 [facility] 300 mg 2-17 03-20 capsule by ity of capsule 00:00: 04:59 mouth [place] 00 :00 every 12 Medical (twelve) Branch hours for 30 days. cefdinir 2023-0 2023- No [id number] 300mg Take 1 [facility] 300 mg 2-17 03-20 capsule by ity of capsule 00:00: 04:59 mouth [place] 00 :00 every 12 Medical (twelve) Branch hours for 30 days. cefdinir 2023-0 2023- No [id number] 300mg Take 1 [facility] 300 mg 2-17 03-20 capsule by ity of capsule 00:00: 04:59 mouth [place] 00 :00 every 12 Medical (twelve) Branch hours for 30 days. cefdinir 2023-0 2023- No [id number] 300mg Take 1 [facility] 300 mg 2-17 03-20 capsule by ity of capsule 00:00: 04:59 mouth [place] 00 :00 every 12 Medical (twelve) Branch hours for 30 days. cefdinir 2023-0 2023- No [id number] 300mg Take 1 [facility] 300 mg 2-17 03-20 capsule by ity of capsule 00:00: 04:59 mouth [place] 00 :00 every 12 Medical (twelve) Branch hours for 30 days. cefdinir 2023-0 2023- No [id number] 300mg Take 1 [facility] 300 mg 2-17 03-20 capsule by ity of capsule 00:00: 04:59 mouth [place] 00 :00 every 12 Medical (twelve) Branch hours for 30 days. cefdinir 2022- No [id number] 300mg Take 1 [facility] 300 mg 2-17 03-20 capsule by ity of capsule 00:00: 04:59 mouth [place] 00 :00 every 12 Medical (twelve) Branch hours for 30 days. atorvastati Yes 1{tbl} Take 1 Un tabitha n 40 mg 2-15 tablet by ity of tablet 15:41: mouth at [place] [address] bedtime. Medical Branch atorvastati Yes 1{tbl} Take 1 Un tabitha n 40 mg 2-15 tablet by ity of tablet 15:41: mouth at [place] [address] bedtime. Medical Branch meclizine Yes 1{tbl} Take 1 Univ ers 25 mg 2-15 tablet by ity of tablet 14:53: mouth in [place] 24 the Medical morning. Branch insulin NPH Yes 3 (three) U nivers and regular 2-15 times ity of human 70-30 14:53: [place] (NOVOLIN 24 Medical 70/30 U-100 Branch INSULIN) 100 unit/mL (70-30) injection meclizine Yes 1{tbl} Take 1 Univ ers 25 mg 2-15 tablet by ity of tablet 14:53: mouth in [place] 24 the Medical morning. Branch insulin NPH Yes 3 (three) U nivers and regular 2-15 times ity of human 70-30 14:53: [place]. [place] (NOVOLIN 24 Medical 70/30 U-100 Branch INSULIN) 100 unit/mL (70-30) injection aspirin 325 Yes 1{tbl} Take 1 Un tabitha mg tablet 2-15 tablet by ity o f 10:26: mouth in [place] 21 the Medical morning. Branch glimepiride Yes 1{tbl} Take 1 Un tabitha 2 mg tablet 2-15 tablet by ity of 10:26: mouth in [place] 21 the Medical morning. Branch predniSONE Yes as needed. U nivers 5 mg tablet 2-15 ity of 10:26: [place] 21 Medical Branch aspirin 325 0 Yes 1{tbl} Take 1 Un tabitha mg tablet 2-15 tablet by ity o f 10:26: mouth in [place] 21 the Medical morning. Branch glimepiride Yes 1{tbl} Take 1 Un tabitha 2 mg tablet 2-15 tablet by ity of 10:26: mouth in [place] 21 the Medical morning. Branch predniSONE 2022-0 Yes as needed. U nivers 5 mg tablet 2-15 ity of 10:26: [place] 21 Medical Branch cefTRIAXone 2022-0 Yes daily. Univ ers 2 gram 2-02 ity of injection 00:00: 00 Medical Branch DAPTOmycin 2022-0 Yes daily. Unive rs injection 2-02 ity of 00:00: Medical Branch cefTRIAXone 2022-0 Yes daily. Univ ers 2 gram 2-02 ity of injection 00:00: Medical Branch DAPTOmycin 2022-0 Yes daily. Unive rs injection 2-02 ity of 00:00: [place] 00 Medical Branch gabapentin 2022-2022- No [id number] 300mg Take 1 [facility] 300 mg 03-17 [id number] capsule by ity o f capsule 00:00: 00:00 mouth in [place] 00 :00 the Medical morning Branch and 1 capsule at noon and 1 capsule in the evening. Do all this for 28 days. methocarbam 2022-2022- No [id number] 750mg Take 1 [facility] oL 750 mg 03-17 [id number] tablet by ity of tablet 00:00: 00:00 mouth 4 [place] 00 :00 (four) Medical times [place] daily for 28 days. gabapentin 2022-2022- No [id number] 300mg Take 1 [facility] 300 mg 03-17 [id number] capsule by ity o f capsule 00:00: 00:00 mouth in [place] 00 :00 the Medical morning Branch and 1 capsule at noon and 1 capsule in the evening. Do all this for 28 days. methocarbam 2022-2022- No [id number] 750mg Take 1 [facility] oL 750 mg 03-17 [id number] tablet by ity of tablet 00:00: 00:00 mouth 4 [place] 00 :00 (four) Medical times [place] daily for 28 days. gabapentin 2022- No [id number] 300mg Take 1 [facility] 300 mg 03-17 [id number] capsule by ity o f capsule 00:00: 05:59 mouth in [place] 00 :00 the Medical morning Branch and 1 capsule at noon and 1 capsule in the evening. Do all this for 28 days. methocarbam 2022- No [id number] 750mg Take 1 [facility] oL 750 mg 03-17 [id number] tablet by ity of tablet 00:00: 05:59 mouth 4 [place] 00 :00 ([facility] daily for 28 days. gabapentin 2022-2022- No [id number] 300mg Take 1 [facility] 300 mg 03-17 [id number] capsule by ity o f capsule 00:00: 05:59 mouth in [place] 00 :00 the [facility] morning Branch and 1 capsule at noon and 1 capsule in the evening. Do all this for 28 days. methocarbam 2022- No [id number] 750mg Take 1 [facility] oL 750 mg 03-17 [id number] tablet by ity of tablet 00:00: 05:59 mouth 4 [place] 00 :00 ([facility] daily for 28 days. gabapentin 2022-2022- No [id number] 300mg Take 1 [facility] 300 mg 03-17 [id number] capsule by ity o f capsule 00:00: 05:59 mouth in [place] 00 :00 the [facility] morning Branch and 1 capsule at noon and 1 capsule in the evening. Do all this for 28 days. methocarbam 2022- No [id number] 750mg Take 1 [facility] oL 750 mg 03-17 [id number] tablet by ity of tablet 00:00: 05:59 mouth 4 [place] 00 :00 ([facility] times [place] daily for 28 days. gabapentin 2022-2022- No [id number] 300mg Take 1 [facility] 300 mg 03-17 [id number] capsule by ity o f capsule 00:00: 05:59 mouth in [place] 00 :00 the [facility] morning Branch and 1 capsule at noon and 1 capsule in the evening. Do all this for 28 days. methocarbam 2022-0 2022- No [id number] 750mg Take 1 [facility] oL 750 mg 03-17 [id number] tablet by ity of tablet 00:00: 05:59 mouth 4 [place] 00 :00 ([facility]) [facility] times [place] daily for 28 days. gabapentin 2022- No [id number] 300mg Take 1 [facility] 300 mg 204-15 [id number] capsule by ity o f capsule 00:00: 05:59 mouth in [place] 00 :00 the [facility] morning Branch and 1 capsule at noon and 1 capsule in the evening. Do all this for 28 days. methocarbam 2022- No [id number] 750mg Take 1 [facility] oL 750 mg 03-17 [id number] tablet by ity of tablet 00:00: 05:59 mouth 4 [place] 00 :00 ([facility] daily for 28 days. gabapentin 2022- No [id number] 300mg Take 1 [facility] 300 mg 03-17 [id number] capsule by ity o f capsule 00:00: 05:59 mouth in [place] 00 :00 [facility] and 1 capsule at noon and 1 capsule in the evening. Do all this for 28 days. methocarbam 2022- No [id number] 750mg Take 1 [facility] oL 750 mg 03-17 [id number] tablet by ity of tablet 00:00: 05:59 mouth 4 [place] 00 :00 ([facility] times [place] daily for 28 days. gabapentin 2022- No [id number] 300mg Take 1 [facility] 300 mg 03-17 [id number] capsule by ity o f capsule 00:00: 05:59 mouth in [place] 00 :00 [facility] and 1 capsule at noon and 1 capsule in the evening. Do all this for 28 days. methocarbam 2022- No [id number] 750mg Take 1 [facility] oL 750 mg 03-17 [id number] tablet by ity of tablet 00:00: 05:59 mouth 4 [place] 00 :00 ([facility]) [facility] times [place] daily for 28 days. gabapentin 2022- No [id number] 300mg Take 1 [facility] 300 mg 204-15 [id number] capsule by ity o f capsule 00:00: 05:59 mouth in [place] 00 :00 the Medical morning Branch and 1 capsule at noon and 1 capsule in the evening. Do all this for 28 days. methocarbam 2022-0 2022- No [id number] 750mg Take 1 [facility] oL 750 mg 03-17 [id number] tablet by ity of tablet 00:00: 05:59 mouth 4 [place] 00 :00 ([facility]) Medical times [place] daily for 28 days. gabapentin 2022-0 2022- No [id number] 300mg Take 1 [facility] 300 mg 03-17 [id number] capsule by ity o f capsule 00:00: 05:59 mouth in [place] 00 :00 the Medical morning Branch and 1 capsule at noon and 1 capsule in the evening. Do all this for 28 days. methocarbam 2022-0 2022- No [id number] 750mg Take 1 [facility] oL 750 mg 03-17 [id number] tablet by ity of tablet 00:00: 05:59 mouth 4 [place] 00 :00 ([facility] times [place] daily for 28 days. gabapentin 2022-0 2022- No [id number] 300mg Take 1 [facility] 300 mg 03-17 [id number] capsule by ity o f capsule 00:00: 05:59 mouth in [place] 00 :00 the Medical morning Branch and 1 capsule at noon and 1 capsule in the evening. Do all this for 28 days. methocarbam 2022-0 2022- No [id number] 750mg Take 1 [facility] oL 750 mg 03-17 [id number] tablet by ity of tablet 00:00: 05:59 mouth 4 [place] 00 :00 ([facility]) [facility] times [place] daily for 28 days. gabapentin 2022-0 2022- No [id number] 300mg Take 1 [facility] 300 mg 03-17 [id number] capsule by ity o f capsule 00:00: 05:59 mouth in [place] 00 :00 the Medical morning Branch and 1 capsule at noon and 1 capsule in the evening. Do all this for 28 days. methocarbam 2022-0 2022- No [id number] 750mg Take 1 [facility] oL 750 mg 03-17 [id number] tablet by ity of tablet 00:00: 05:59 mouth 4 [place] 00 :00 ([facility]) [facility] times [place] daily for 28 days. gabapentin 2022-0 2022- No [id number] 300mg Take 1 [facility] 300 mg 03-17 [id number] capsule by ity o f capsule 00:00: 05:59 mouth in [place] 00 :00 the Medical morning Branch and 1 capsule at noon and 1 capsule in the evening. Do all this for 28 days. methocarbam 2022- No [id number] 750mg Take 1 [facility] oL 750 mg 03-17 [id number] tablet by ity of tablet 00:00: 05:59 mouth 4 [place] 00 :00 ([facility] daily for 28 days. gabapentin 2022- No [id number] 300mg Take 1 [facility] 300 mg 03-17 [id number] capsule by ity o f capsule 00:00: 05:59 mouth in [place] 00 :00 [facility] morning [place] and 1 capsule at noon and 1 capsule in the evening. Do all this for 28 days. methocarbam 2022- No [id number] 750mg Take 1 [facility] oL 750 mg 03-17 [id number] tablet by ity of tablet 00:00: 05:59 mouth 4 [place] 00 :00 ([facility] daily for 28 days. gabapentin 2022- No [id number] 300mg Take 1 [facility] 300 mg 03-17 [id number] capsule by ity o f capsule 00:00: 05:59 mouth in [place] 00 :00 [facility] morning Branch and 1 capsule at noon and 1 capsule in the evening. Do all this for 28 days. methocarbam 2022- No [id number] 750mg Take 1 [facility] oL 750 mg 03-17 [id number] tablet by ity of tablet 00:00: 05:59 mouth 4 [place] 00 :00 ([facility] daily for 28 days. gabapentin 2022- No [id number] 300mg Take 1 [facility] 300 mg 03-17 [id number] capsule by ity o f capsule 00:00: 05:59 mouth in [place] 00 :00 [facility] morning [place] and 1 capsule at noon and 1 capsule in the evening. Do all this for 28 days. methocarbam 2022- No [id number] 750mg Take 1 [facility] oL 750 mg 03-17 [id number] tablet by ity of tablet 00:00: 05:59 mouth 4 [place] 00 :00 ([facility] times [place] daily for 28 days. gabapentin 2022- No [id number] 300mg Take 1 [facility] 300 mg 03-17 [id number] capsule by ity o f capsule 00:00: 05:59 mouth in [place] 00 :00 the Medical morning Branch and 1 capsule at noon and 1 capsule in the evening. Do all this for 28 days. methocarbam 2022- No [id number] 750mg Take 1 [facility] oL 750 mg 03-17 [id number] tablet by ity of tablet 00:00: 05:59 mouth 4 [place] 00 :00 ([facility] daily for 28 days. gabapentin 2022- No [id number] 300mg Take 1 [facility] 300 mg 03-17 [id number] capsule by ity o f capsule 00:00: 05:59 mouth in [place] 00 :00 [facility] morning [place] and 1 capsule at noon and 1 capsule in the evening. Do all this for 28 days. methocarbam 2022- No [id number] 750mg Take 1 [facility] oL 750 mg 03-17 [id number] tablet by ity of tablet 00:00: 05:59 mouth 4 [place] 00 :00 ([facility] daily for 28 days. gabapentin 2022- No [id number] 300mg Take 1 [facility] 300 mg 03-17 [id number] capsule by ity o f capsule 00:00: 05:59 mouth in [place] 00 :00 the [facility] morning Branch and 1 capsule at noon and 1 capsule in the evening. Do all this for 28 days. methocarbam 2022- No [id number] 750mg Take 1 [facility] oL 750 mg 03-17 [id number] tablet by ity of tablet 00:00: 05:59 mouth 4 [place] 00 :00 ([facility] daily for 28 days. gabapentin 2022- No [id number] 300mg Take 1 [facility] 300 mg 03-17 [id number] capsule by ity o f capsule 00:00: 05:59 mouth in [place] 00 :00 [facility] morning Branch and 1 capsule at noon and 1 capsule in the evening. Do all this for 28 days. methocarbam 2022- No [id number] 750mg Take 1 [facility] oL 750 mg 03-17 [id number] tablet by ity of tablet 00:00: 05:59 mouth 4 [place] 00 :00 (four) Medical times Branch daily for 28 days. cefTRIAXone 2022-0 2022- No daily. Uni vers 2 gram 03-17 ity of injection 00:00: 00:00 [place] 00 :00 Medical Branch DAPTOmycin 2022-0 2022- No daily. Univ ers injection 03-17 ity of 00:00: 00:00 [place] 00 :00 Medical Branch cefTRIAXone 2022-0 2022- No daily. Uni vers 2 gram 03-17 ity of injection 00:00: 00:00 [place] 00 :00 Medical Branch DAPTOmycin 2022-0 2022- No daily. [facility] [place] [facility] ers injection 03-17 ity of 00:00: 00:00 [place] 00 :00 Medical Branch traMADoL 50 2022- No [id number] 50mg Take 1 Uni vers mg tablet 03-1710 tablet by ity of 00:00: 05:59 mouth [place] 00 :00 every 6 Medical (six) Branch hours as needed for Pain (scale 7-10) for up to 7 days. Indication s: acute pain traMADoL 50 2022- No [id number] 50mg Take 1 Uni vers mg tablet 03-1710 tablet by ity of 00:00: 05:59 mouth [place] 00 :00 every 6 Medical (six) Branch hours as needed for Pain (scale 7-10) for up to 7 days. Indication s: acute pain traMADoL 50 2022-0 2022- No [id number] 50mg Take 1 Uni vers mg tablet 03-17-10 tablet by ity of 00:00: 05:59 mouth [place] 00 :00 every 6 Medical (six) Branch hours as needed for Pain (scale 7-10) for up to 7 days. Indication s: acute pain traMADoL 50 2022- No [id number] 50mg Take 1 Uni vers mg tablet 03-17-10 tablet by ity of 00:00: 05:59 mouth [place] 00 :00 every 6 Medical (six) Branch hours as needed for Pain (scale 7-10) for up to 7 days. Indication s: acute pain traMADol traMADol 2022-0 No 1{table traMADol HCl 50 MG HCl 50 MG 1-30 t_as_ne HCl 50 MG 00:00: eded} traMADol traMADol 2022-0 No 1{table traMADol HCl 50 MG HCl 50 MG 1-30 t_as_ne HCl 50 MG 00:00: eded} cetirizine 2022-0 Yes 10mg Take 10 mg U nivers 10 mg 1-27 by mouth ity of tablet 00:00: as needed. [place] Medical Branch cetirizine 2022-0 Yes 10mg Take 10 mg U nivers 10 mg 1-27 by mouth ity of tablet 00:00: as needed. [place] [facility] Branch cetirizine 2022-0 Yes 10mg Take 10 mg U nivers 10 mg 1-27 by mouth ity of tablet 00:00: as needed. [place] [facility] Branch cetirizine 2022-0 Yes 10mg Take 10 mg U nivers 10 mg 1-27 by mouth ity of tablet 00:00: as needed. [place] [facility] Branch cetirizine 2022-0 Yes 10mg Take 10 mg U nivers 10 mg 1-27 by mouth ity of tablet 00:00: as needed. [place] [facility] Branch cetirizine 2022-0 Yes 10mg Take 10 mg U nivers 10 mg 1-27 by mouth ity of tablet 00:00: as needed. [address] Branch cetirizine 2022-0 Yes 10mg Take 10 mg U nivers 10 mg 1-27 by mouth ity of tablet 00:00: as needed. [place] [facility] Branch cetirizine 2022-0 Yes 10mg Take 10 mg U nivers 10 mg 1-27 by mouth ity of tablet 00:00: as needed. [address] Branch cetirizine 2022-0 Yes 10mg Take 10 mg U nivers 10 mg 1-27 by mouth ity of tablet 00:00: as needed. [address] Branch cetirizine 2022-0 Yes 10mg Take 10 mg U nivers 10 mg 1-27 by mouth ity of tablet 00:00: as needed. [address] Branch cetirizine 2022-0 Yes 10mg Take 10 mg U nivers 10 mg 1-27 by mouth ity of tablet 00:00: as needed. [place] Medical Branch cetirizine 3-0 Yes 10mg Take 10 mg U nivers 10 mg 1-27 by mouth ity of tablet 00:00: as needed. [place] Medical Branch cetirizine 3-0 Yes 10mg Take 10 mg U nivers 10 mg 1-27 by mouth ity of tablet 00:00: as needed. [place] Medical Branch cetirizine 3-0 Yes 10mg Take 10 mg U nivers 10 mg 1-27 by mouth ity of tablet 00:00: as needed. [place] Medical Branch cetirizine 3-0 Yes 10mg Take 10 mg U nivers 10 mg 1-27 by mouth ity of tablet 00:00: as needed. [place] Medical Branch cetirizine 2022-0 Yes 10mg Take 10 mg U nivers 10 mg 1-27 by mouth ity of tablet 00:00: as needed. [place] Medical Branch cetirizine 2022-0 Yes 10mg Take 10 mg U nivers 10 mg 1-27 by mouth ity of tablet 00:00: as needed. [place] [address] Medical Branch cetirizine 3-0 Yes 10mg Take 10 mg U nivers 10 mg 1-27 by mouth ity of tablet 00:00: as needed. [place] Medical Branch cetirizine 2022-0 Yes 10mg Take 10 mg U nivers 10 mg 1-27 by mouth ity of tablet 00:00: as needed. [place] [address] Medical Branch cetirizine 3-0 Yes 10mg Take 10 mg U nivers 10 mg 1-27 by mouth ity of tablet 00:00: as needed. [place] [address] Medical Branch cetirizine 3-0 Yes 10mg Take 10 mg U nivers 10 mg 1-27 by mouth ity of tablet 00:00: as needed. [place] [address] Medical Branch cetirizine 3-0 Yes 10mg Take 10 mg U nivers 10 mg 1-27 by mouth ity of tablet 00:00: as needed. [place] [address] Medical Branch cetirizine 3-0 Yes 10mg Take 10 mg U nivers 10 mg 1-27 by mouth ity of tablet 00:00: as needed. [place] [address] Medical Branch cetirizine 3-0 Yes 10mg Take 10 mg U nivers 10 mg 1-27 by mouth ity of tablet 00:00: as needed. [place] 00 Medical Branch cetirizine 3-0 Yes 10mg Take 1 Unive rs 10 mg 1-27 tablet by ity of tablet 00:00: mouth as [place] 00 needed. Medical Branch cetirizine 3-0 Yes 10mg Take 1 Unive rs 10 mg 1-27 tablet by ity of tablet 00:00: mouth as [place] 00 needed. Medical Branch cetirizine 3-0 Yes 10mg Take 1 Unive rs 10 mg 1-27 tablet by ity of tablet 00:00: mouth as [place] 00 needed. Medical Branch cetirizine 3-0 Yes 10mg Take 1 Unive rs 10 mg 1-27 tablet by ity of tablet 00:00: mouth as [place] 00 needed. Medical Branch cetirizine 3-0 Yes 10mg Take 1 Unive rs 10 mg 1-27 tablet by ity of tablet 00:00: mouth as [place] 00 needed. Medical Branch cetirizine 3-0 Yes 10mg Take 1 Unive rs 10 mg 1-27 tablet by ity of tablet 00:00: mouth as [place] 00 needed. Medical Branch cetirizine 3-0 Yes 10mg Take 1 Unive rs 10 mg 1-27 tablet by ity of tablet 00:00: mouth as [place] 00 needed. Medical Branch cetirizine 3-0 Yes 10mg Take 1 Unive rs 10 mg 1-27 tablet by ity of tablet 00:00: mouth as [place] 00 needed. Medical Branch cetirizine 3-0 Yes 10mg Take 1 Unive rs 10 mg 1-27 tablet by ity of tablet 00:00: mouth as [place] 00 needed. Medical Branch cetirizine 3-0 Yes 10mg Take 1 Unive rs 10 mg 1-27 tablet by ity of tablet 00:00: mouth as [place] 00 needed. Medical Branch cetirizine 3-0 Yes 10mg Take 1 Unive rs 10 mg 1-27 tablet by ity of tablet 00:00: mouth as [place] 00 needed. Medical Branch cetirizine 3-0 Yes 10mg Take 1 Unive rs 10 mg 1-27 tablet by ity of tablet 00:00: mouth as [place] 00 needed. Medical Branch cetirizine 3-0 Yes 10mg Take 1 Unive rs 10 mg 1-27 tablet by ity of tablet 00:00: mouth as [place] 00 needed. Medical Branch cetirizine 3-0 Yes 10mg Take 1 Unive rs 10 mg 1-27 tablet by ity of tablet 00:00: mouth as [place] 00 needed. Medical Branch cetirizine 3-0 Yes 10mg Take 1 Unive rs 10 mg 1-27 tablet by ity of tablet 00:00: mouth as [place] 00 needed. Medical Branch cetirizine 3-0 Yes 10mg Take 1 Unive rs 10 mg 1-27 tablet by ity of tablet 00:00: mouth as [place] 00 needed. Medical Branch cetirizine 2022-0 Yes 10mg Take 1 Unive rs 10 mg 1-27 tablet by ity of tablet 00:00: mouth as [place] 00 needed. Medical Branch cetirizine 3-0 Yes 10mg Take 1 Unive rs 10 mg 1-27 tablet by ity of tablet 00:00: mouth as [place] 00 needed. Medical Branch cetirizine 3-0 Yes 10mg Take 1 Unive rs 10 mg 1-27 tablet by ity of tablet 00:00: mouth as [place] 00 needed. Medical Branch cetirizine 3-0 Yes 10mg Take 1 Unive rs 10 mg 1-27 tablet by ity of tablet 00:00: mouth as [place] 00 needed. Medical Branch cetirizine 3-0 Yes 10mg Take 1 Unive rs 10 mg 1-27 tablet by ity of tablet 00:00: mouth as [place] 00 needed. Medical Branch cetirizine 3-0 Yes 10mg Take 1 Unive rs 10 mg 1-27 tablet by ity of tablet 00:00: mouth as [place] 00 needed. Medical Branch cetirizine 3-0 Yes 10mg Take 1 Unive rs 10 mg 1-27 tablet by ity of tablet 00:00: mouth as [place] 00 needed. Medical Branch cetirizine 3-0 Yes 10mg Take 1 Unive rs 10 mg 1-27 tablet by ity of tablet 00:00: mouth as [place] 00 needed. Medical Branch cetirizine 3-0 Yes 10mg Take 1 Unive rs 10 mg 1-27 tablet by ity of tablet 00:00: mouth as [place] 00 needed. Medical Branch cetirizine 3-0 Yes 10mg Take 1 Unive rs 10 mg 1-27 tablet by ity of tablet 00:00: mouth as [place] 00 needed. Medical Branch cetirizine 3-0 Yes 10mg Take 1 Unive rs 10 mg 1-27 tablet by ity of tablet 00:00: mouth as [place] 00 needed. Medical Branch cetirizine 3-0 Yes 10mg Take 1 Unive rs 10 mg 1-27 tablet by ity of tablet 00:00: mouth as [place] 00 needed. Medical Branch cetirizine 3-0 Yes 10mg Take 1 Unive rs 10 mg 1-27 tablet by ity of tablet 00:00: mouth as [place] 00 needed. Medical Branch cetirizine 3-0 Yes 10mg Take 1 Unive rs 10 mg 1-27 tablet by ity of tablet 00:00: mouth as [place] 00 needed. Medical Branch cetirizine 3-0 Yes 10mg Take 1 Unive rs 10 mg 1-27 tablet by ity of tablet 00:00: mouth as [place] 00 needed. Medical Branch cetirizine 3-0 Yes 10mg Take 1 Unive rs 10 mg 1-27 tablet by ity of tablet 00:00: mouth as [place] 00 needed. Medical Branch cetirizine 3-0 Yes 10mg Take 1 Unive rs 10 mg 1-27 tablet by ity of tablet 00:00: mouth as [place] 00 needed. Medical Branch cetirizine 3-0 Yes 10mg Take 1 Unive rs 10 mg 1-27 tablet by ity of tablet 00:00: mouth as [place] 00 needed. Medical Branch cetirizine 3-0 Yes 10mg Take 1 Unive rs 10 mg 1-27 tablet by ity of tablet 00:00: mouth as [place] 00 needed. Medical Branch cetirizine 3-0 Yes 10mg Take 1 Unive rs 10 mg 1-27 tablet by ity of tablet 00:00: mouth as [place] 00 needed. Medical Branch cetirizine 3-0 Yes 10mg Take 1 Unive rs 10 mg 1-27 tablet by ity of tablet 00:00: mouth as [place] 00 needed. Medical Branch cetirizine 3-0 Yes 10mg Take 1 Unive rs 10 mg 1-27 tablet by ity of tablet 00:00: mouth as [place] 00 needed. Medical Branch cetirizine 3-0 Yes 10mg Take 1 Unive rs 10 mg 1-27 tablet by ity of tablet 00:00: mouth as [place] 00 needed. Medical Branch cetirizine 3-0 Yes 10mg Take 1 Unive rs 10 mg 1-27 tablet by ity of tablet 00:00: mouth as [place] 00 needed. Medical Branch cetirizine 3-0 Yes 10mg Take 1 Unive rs 10 mg 1-27 tablet by ity of tablet 00:00: mouth as [place] 00 needed. Medical Branch cetirizine 3-0 Yes 10mg Take 1 Unive rs 10 mg 1-27 tablet by ity of tablet 00:00: mouth as [place] 00 needed. Medical Branch cetirizine 3-0 Yes 10mg Take 1 Unive rs 10 mg 1-27 tablet by ity of tablet 00:00: mouth as [place] 00 needed. Medical Branch cetirizine 3-0 Yes 10mg Take 1 Unive rs 10 mg 1-27 tablet by ity of tablet 00:00: mouth as [place] 00 needed. Medical Branch cetirizine 3-0 Yes 10mg Take 1 Unive rs 10 mg 1-27 tablet by ity of tablet 00:00: mouth as [place] 00 needed. Medical Branch cetirizine 3-0 Yes 10mg Take 1 Unive rs 10 mg 1-27 tablet by ity of tablet 00:00: mouth as [place] 00 needed. Medical Branch cetirizine 3-0 Yes 10mg Take 1 Unive rs 10 mg 1-27 tablet by ity of tablet 00:00: mouth as [place] 00 needed. Medical Branch cetirizine 3-0 Yes 10mg Take 1 Unive rs 10 mg 1-27 tablet by ity of tablet 00:00: mouth as [place] 00 needed. Medical Branch cetirizine 3-0 Yes 10mg Take 1 Unive rs 10 mg 1-27 tablet by ity of tablet 00:00: mouth as [place] 00 needed. Medical Branch cetirizine 3-0 Yes 10mg Take 1 Unive rs 10 mg 1-27 tablet by ity of tablet 00:00: mouth as [place] 00 needed. Medical Branch cetirizine 3-0 Yes 10mg Take 1 Unive rs 10 mg 1-27 tablet by ity of tablet 00:00: mouth as [place] 00 needed. Medical Branch cetirizine 3-0 Yes 10mg Take 1 Unive rs 10 mg 1-27 tablet by ity of tablet 00:00: mouth as [place] 00 needed. Medical Branch ursodioL 2023-0 Yes 2{capsu Take 2 Univ ers 300 mg 1-26 le} capsules ity of capsule 00:00: by mouth [place] 00 in the Medical morning Branch and 2 capsules in the evening. ursodioL 2023-0 Yes 2{capsu Take 2 Univ ers 300 mg 1-26 le} capsules ity of capsule 00:00: by mouth [place] 00 in the Medical morning Branch and 2 capsules in the evening. ursodioL 2023-0 Yes 2{capsu Take 2 Univ ers 300 mg 1-26 le} capsules ity of capsule 00:00: by mouth [place] 00 in the Medical morning Branch and 2 capsules in the evening. ursodioL 2023-0 Yes 2{capsu Take 2 Univ ers 300 mg 1-26 le} capsules ity of capsule 00:00: by mouth [place] 00 in the Medical morning Branch and 2 capsules in the evening. ursodioL 2023-0 Yes 2{capsu Take 2 Univ ers 300 mg 1-26 le} capsules ity of capsule 00:00: by mouth [place] 00 in the Medical morning Branch and 2 capsules in the evening. ursodioL 2023-0 Yes 2{capsu Take 2 Univ ers 300 mg 1-26 le} capsules ity of capsule 00:00: by mouth [place] 00 in the Medical morning Branch and 2 capsules in the evening. ursodioL 2023-0 Yes 2{capsu Take 2 Univ ers 300 mg 1-26 le} capsules ity of capsule 00:00: by mouth [place] 00 in the Medical morning Branch and 2 capsules in the evening. ursodioL 2023-0 Yes 2{capsu Take 2 Univ ers 300 mg 1-26 le} capsules ity of capsule 00:00: by mouth [place] 00 in the Medical morning Branch and 2 capsules in the evening. ursodioL 2023-0 Yes 2{capsu Take 2 Univ ers 300 mg 1-26 le} capsules ity of capsule 00:00: by mouth [place] 00 in the Medical morning Branch and 2 capsules in the evening. ursodioL 2023-0 Yes 2{capsu Take 2 Univ ers 300 mg 1-26 le} capsules ity of capsule 00:00: by mouth [place] 00 in the Medical morning Branch and 2 capsules in the evening. ursodioL 2023-0 Yes 2{capsu Take 2 Univ ers 300 mg 1-26 le} capsules ity of capsule 00:00: by mouth [place] 00 in the Medical morning Branch and 2 capsules in the evening. ursodioL 2023-0 Yes 2{capsu Take 2 Univ ers 300 mg 1-26 le} capsules ity of capsule 00:00: by mouth [place] 00 in the Medical morning Branch and 2 capsules in the evening. ursodioL 2023-0 Yes 2{capsu Take 2 Univ ers 300 mg 1-26 le} capsules ity of capsule 00:00: by mouth [place] 00 in the Medical morning Branch and 2 capsules in the evening. ursodioL 2023-0 Yes 2{capsu Take 2 Univ ers 300 mg 1-26 le} capsules ity of capsule 00:00: by mouth [place] 00 in the Medical morning Branch and 2 capsules in the evening. ursodioL 2023-0 Yes 2{capsu Take 2 Univ ers 300 mg 1-26 le} capsules ity of capsule 00:00: by mouth [place] 00 in the Medical morning Branch and 2 capsules in the evening. ursodioL 2023-0 Yes 2{capsu Take 2 Univ ers 300 mg 1-26 le} capsules ity of capsule 00:00: by mouth [place] 00 in the Medical morning Branch and 2 capsules in the evening. ursodioL 2023-0 Yes 2{capsu Take 2 Univ ers 300 mg 1-26 le} capsules ity of capsule 00:00: by mouth [place] 00 in the Medical morning Branch and 2 capsules in the evening. ursodioL 2023-0 Yes 2{capsu Take 2 Univ ers 300 mg 1-26 le} capsules ity of capsule 00:00: by mouth [place] 00 in the Medical morning Branch and 2 capsules in the evening. ursodioL 2023-0 Yes 2{capsu Take 2 Univ ers 300 mg 1-26 le} capsules ity of capsule 00:00: by mouth [place] 00 in the Medical morning Branch and 2 capsules in the evening. ursodioL 2023-0 Yes 2{capsu Take 2 Univ ers 300 mg 1-26 le} capsules ity of capsule 00:00: by mouth [place] 00 in the Medical morning Branch and 2 capsules in the evening. ursodioL 2023-0 Yes 2{capsu Take 2 Univ ers 300 mg 1-26 le} capsules ity of capsule 00:00: by mouth [place] 00 in the Medical morning Branch and 2 capsules in the evening. ursodioL 2023-0 Yes 2{capsu Take 2 Univ ers 300 mg 1-26 le} capsules ity of capsule 00:00: by mouth [place] 00 in the Medical morning Branch and 2 capsules in the evening. ursodioL 2023-0 Yes 2{capsu Take 2 Univ ers 300 mg 1-26 le} capsules ity of capsule 00:00: by mouth [place] 00 in the Medical morning Branch and 2 capsules in the evening. ursodioL 2023-0 Yes 2{capsu Take 2 Univ ers 300 mg 1-26 le} capsules ity of capsule 00:00: by mouth [place] 00 in the Medical morning Branch and 2 capsules in the evening. ursodioL 2023-0 Yes 600mg Take 2 Univer s 300 mg 1-26 capsules ity of capsule 00:00: by mouth [place] 00 in the Medical morning Branch and 2 capsules in the evening. ursodioL 2023-0 Yes 600mg Take 2 Univer s 300 mg 1-26 capsules ity of capsule 00:00: by mouth [place] 00 in the Medical morning Branch and 2 capsules in the evening. ursodioL 2023-0 Yes 600mg Take 2 Univer s 300 mg 1-26 capsules ity of capsule 00:00: by mouth [place] 00 in the Medical morning Branch and 2 capsules in the evening. ursodioL 2023-0 Yes 600mg Take 2 Univer s 300 mg 1-26 capsules ity of capsule 00:00: by mouth [place] 00 in the Medical morning Branch and 2 capsules in the evening. ursodioL 2023-0 Yes 600mg Take 2 Univer s 300 mg 1-26 capsules ity of capsule 00:00: by mouth [place] 00 in the Medical morning Branch and 2 capsules in the evening. ursodioL 2023-0 Yes 600mg Take 2 Univer s 300 mg 1-26 capsules ity of capsule 00:00: by mouth [place] 00 in the Medical morning Branch and 2 capsules in the evening. ursodioL 2023-0 Yes 600mg Take 2 Univer s 300 mg 1-26 capsules ity of capsule 00:00: by mouth [place] 00 in the Medical morning Branch and 2 capsules in the evening. ursodioL 2023-0 Yes 600mg Take 2 Univer s 300 mg 1-26 capsules ity of capsule 00:00: by mouth [place] 00 in the Medical morning Branch and 2 capsules in the evening. ursodioL 2023-0 Yes 600mg Take 2 Univer s 300 mg 1-26 capsules ity of capsule 00:00: by mouth [place] 00 in the Medical morning Branch and 2 capsules in the evening. ursodioL 2023-0 Yes 600mg Take 2 Univer s 300 mg 1-26 capsules ity of capsule 00:00: by mouth [place] 00 in the Medical morning Branch and 2 capsules in the evening. ursodioL 2023-0 Yes 600mg Take 2 Univer s 300 mg 1-26 capsules ity of capsule 00:00: by mouth [place] 00 in the Medical morning Branch and 2 capsules in the evening. ursodioL 2023-0 Yes 600mg Take 2 Univer s 300 mg 1-26 capsules ity of capsule 00:00: by mouth [place] 00 in the Medical morning Branch and 2 capsules in the evening. ursodioL 2023-0 Yes 600mg Take 2 Univer s 300 mg 1-26 capsules ity of capsule 00:00: by mouth [place] 00 in the Medical morning Branch and 2 capsules in the evening. ursodioL 2023-0 Yes 600mg Take 2 Univer s 300 mg 1-26 capsules ity of capsule 00:00: by mouth [place] 00 in the Medical morning Branch and 2 capsules in the evening. ursodioL 2023-0 Yes 600mg Take 2 Univer s 300 mg 1-26 capsules ity of capsule 00:00: by mouth [place] 00 in the Medical morning Branch and 2 capsules in the evening. ursodioL 2023-0 Yes 600mg Take 2 Univer s 300 mg 1-26 capsules ity of capsule 00:00: by mouth [place] 00 in the Medical morning Branch and 2 capsules in the evening. ursodioL 2023-0 Yes 600mg Take 2 Univer s 300 mg 1-26 capsules ity of capsule 00:00: by mouth [place] 00 in the Medical morning Branch and 2 capsules in the evening. ursodioL 2023-0 Yes 600mg Take 2 Univer s 300 mg 1-26 capsules ity of capsule 00:00: by mouth [place] 00 in the Medical morning Branch and 2 capsules in the evening. ursodioL 2023-0 Yes 600mg Take 2 Univer s 300 mg 1-26 capsules ity of capsule 00:00: by mouth [place] 00 in the Medical morning Branch and 2 capsules in the evening. ursodioL 2023-0 Yes 600mg Take 2 Univer s 300 mg 1-26 capsules ity of capsule 00:00: by mouth [place] 00 in the Medical morning Branch and 2 capsules in the evening. ursodioL 2023-0 Yes 600mg Take 2 [facility] 300 mg 1-26 capsules ity of capsule 00:00: by mouth [place] 00 in the Medical morning Branch and 2 capsules in the evening. ursodioL 2023-0 Yes 600mg Take 2 [facility] 300 mg 1-26 capsules ity of capsule 00:00: by mouth [place] 00 in the Medical morning Branch and 2 capsules in the evening. ursodioL 2023-0 Yes 600mg Take 2 [facility] 300 mg 1-26 capsules ity of capsule 00:00: by mouth [place] 00 in the Medical morning Branch and 2 capsules in the evening. ursodioL 2023-0 Yes 600mg Take 2 [facility] 300 mg 1-26 capsules ity of capsule 00:00: by mouth [place] 00 in the Medical morning Branch and 2 capsules in the evening. ursodioL 2023-0 Yes 600mg Take 2 [facility] 300 mg 1-26 capsules ity of capsule 00:00: by mouth [place] 00 in the Medical morning Branch and 2 capsules in the evening. ursodioL 2023-0 Yes 600mg Take 2 [facility] 300 mg 1-26 capsules ity of capsule 00:00: by mouth [place] 00 in the Medical morning Branch and 2 capsules in the evening. ursodioL 2023-0 Yes 600mg Take 2 [facility] 300 mg 1-26 capsules ity of capsule 00:00: by mouth [place] 00 in the Medical morning Branch and 2 capsules in the evening. ursodioL 2023-0 Yes 600mg Take 2 [facility] 300 mg 1-26 capsules ity of capsule 00:00: by mouth [place] 00 in the Medical morning Branch and 2 capsules in the evening. ursodioL 2023-0 Yes 600mg Take 2 [facility] 300 mg 1-26 capsules ity of capsule 00:00: by mouth [place] 00 in the Medical morning Branch and 2 capsules in the evening. ursodioL 2023-0 Yes 600mg Take 2 [facility] 300 mg 1-26 capsules ity of capsule 00:00: by mouth [place] 00 in the Medical morning Branch and 2 capsules in the evening. ursodioL 2023-0 Yes 600mg Take 2 [facility] 300 mg 1-26 capsules ity of capsule 00:00: by mouth [place] 00 in the Medical morning Branch and 2 capsules in the evening. ursodioL 2023-0 Yes 600mg Take 2 [facility] 300 mg 1-26 capsules ity of capsule 00:00: by mouth [place] 00 in the Medical morning Branch and 2 capsules in the evening. ursodioL 2023-0 Yes 600mg Take 2 [facility] 300 mg 1-26 capsules ity of capsule 00:00: by mouth [place] 00 in the Medical morning Branch and 2 capsules in the evening. ursodioL 2023-0 Yes 600mg Take 2 [facility] 300 mg 1-26 capsules ity of capsule 00:00: by mouth [place] 00 in the Medical morning Branch and 2 capsules in the evening. ursodioL 2023-0 Yes 600mg Take 2 [facility] 300 mg 1-26 capsules ity of capsule 00:00: by mouth [place] 00 in the Medical morning Branch and 2 capsules in the evening. ursodioL 2023-0 Yes 600mg Take 2 [facility] 300 mg 1-26 capsules ity of capsule 00:00: by mouth [place] 00 in the Medical morning Branch and 2 capsules in the evening. ursodioL 2023-0 Yes 600mg Take 2 [facility] 300 mg 1-26 capsules ity of capsule 00:00: by mouth [place] 00 in the Medical morning Branch and 2 capsules in the evening. ursodioL 2023-0 Yes 600mg Take 2 [facility] 300 mg 1-26 capsules ity of capsule 00:00: by mouth [place] 00 in the Medical morning Branch and 2 capsules in the evening. ursodioL 2023-0 Yes 600mg Take 2 [facility] 300 mg 1-26 capsules ity of capsule 00:00: by mouth [place] 00 in the Medical morning Branch and 2 capsules in the evening. ursodioL 2023-0 Yes 600mg Take 2 [facility] 300 mg 1-26 capsules ity of capsule 00:00: by mouth [place] 00 in the Medical morning Branch and 2 capsules in the evening. ursodioL 2023-0 Yes 600mg Take 2 [facility] 300 mg 1-26 capsules ity of capsule 00:00: by mouth [place] 00 in the Medical morning Branch and 2 capsules in the evening. ursodioL 2023-0 Yes 600mg Take 2 [facility] 300 mg 1-26 capsules ity of capsule 00:00: by mouth [place] 00 in the Medical morning Branch and 2 capsules in the evening. ursodioL 2023-0 Yes 600mg Take 2 [facility] 300 mg 1-26 capsules ity of capsule 00:00: by mouth [place] 00 in the Medical morning Branch and 2 capsules in the evening. ursodioL 2023-0 Yes 600mg Take 2 [facility] 300 mg 1-26 capsules ity of capsule 00:00: by mouth [place] 00 in the Medical morning Branch and 2 capsules in the evening. ursodioL 2023-0 Yes 600mg Take 2 [facility] 300 mg 1-26 capsules ity of capsule 00:00: by mouth [place] 00 in the Medical morning Branch and 2 capsules in the evening. ursodioL 2023-0 Yes 600mg Take 2 [facility] 300 mg 1-26 capsules ity of capsule 00:00: by mouth [place] 00 in the Medical morning Branch and 2 capsules in the evening. ursodioL 2023-0 Yes 600mg Take 2 [facility] 300 mg 1-26 capsules ity of capsule 00:00: by mouth [place] 00 in the Medical morning Branch and 2 capsules in the evening. ursodioL 2023-0 Yes 600mg Take 2 [facility] 300 mg 1-26 capsules ity of capsule 00:00: by mouth [place] 00 in the Medical morning Branch and 2 capsules in the evening. ursodioL 2023-0 Yes 600mg Take 2 [facility] 300 mg 1-26 capsules ity of capsule 00:00: by mouth [place] 00 in the Medical morning Branch and 2 capsules in the evening. ursodioL 2023-0 Yes 600mg Take 2 [facility] 300 mg 1-26 capsules ity of capsule 00:00: by mouth [place] 00 in the Medical morning Branch and 2 capsules in the evening. ursodioL 2023-0 Yes 600mg Take 2 [facility] 300 mg 1-26 capsules ity of capsule 00:00: by mouth [place] 00 in the Medical morning Branch and 2 capsules in the evening. ursodioL 2023-0 Yes 600mg Take 2 [facility] 300 mg 1-26 capsules ity of capsule 00:00: by mouth [place] 00 in the Medical morning Branch and 2 capsules in the evening. ursodioL 2023-0 Yes 600mg Take 2 [facility] 300 mg 1-26 capsules ity of capsule 00:00: by mouth [place] 00 in the Medical morning Branch and 2 capsules in the evening. ursodioL 2023-0 Yes 600mg Take 2 [facility] 300 mg 1-26 capsules ity of capsule 00:00: by mouth [place] 00 in the Medical morning Branch and 2 capsules in the evening. ursodioL 2023-0 Yes 600mg Take 2 [facility] 300 mg 1-26 capsules ity of capsule 00:00: by mouth [place] 00 in the Medical morning Branch and 2 capsules in the evening. ursodioL 2023-0 Yes 600mg Take 2 [facility] 300 mg 1-26 capsules ity of capsule 00:00: by mouth [place] 00 in the Medical morning Branch and 2 capsules in the evening. ursodioL 2023-0 Yes 600mg Take 2 [facility] 300 mg 1-26 capsules ity of capsule 00:00: by mouth [place] 00 in the Medical morning Branch and 2 capsules in the evening. ursodioL 2023-0 Yes 600mg Take 2 [facility] 300 mg 1-26 capsules ity of capsule 00:00: by mouth [place] 00 in the Medical morning Branch and 2 capsules in the evening. ursodioL 2023-0 Yes 600mg Take 2 [facility] 300 mg 1-26 capsules ity of capsule 00:00: by mouth [place] 00 in the Medical morning Branch and 2 capsules in the evening. ursodioL 2023-0 Yes 600mg Take 2 [facility] 300 mg 1-26 capsules ity of capsule 00:00: by mouth [place] 00 in the Medical morning Branch and 2 capsules in the evening. ursodioL 2023-0 Yes 600mg Take 2 [facility] 300 mg 1-26 capsules ity of capsule 00:00: by mouth [place] 00 in the Medical morning Branch and 2 capsules in the evening. ursodioL 2023-0 Yes 600mg Take 2 [facility] 300 mg 1-26 capsules ity of capsule 00:00: by mouth [place] 00 in the Medical morning Branch and 2 capsules in the evening. ursodioL 2023-0 Yes 600mg Take 2 [facility] 300 mg 1-26 capsules ity of capsule 00:00: by mouth [place] 00 in the Medical morning Branch and 2 capsules in the evening. omeprazole 2023-0 Yes 40mg Take 40 mg [facility] 40 mg 1-25 by mouth ity of capsule 00:00: in the [place] 00 morning. Medical Branch omeprazole 2023-0 Yes 40mg Take 40 mg [facility]ivers 40 mg 1-25 by mouth ity of capsule 00:00: in the [place] 00 morning. Medical Branch omeprazole 2023-0 Yes 40mg Take 40 mg [facility]ivers 40 mg 1-25 by mouth ity of capsule 00:00: in the [place] 00 morning. Medical Branch omeprazole 2023-0 Yes 40mg Take 40 mg [facility] 40 mg 1-25 by mouth ity of capsule 00:00: in the [place] 00 morning. Medical Branch omeprazole 2023-0 Yes 40mg Take 40 mg [facility] 40 mg 1-25 by mouth ity of capsule 00:00: in the [place] 00 morning. Medical Branch omeprazole 2023-0 Yes 40mg Take 40 mg [facility]ivers 40 mg 1-25 by mouth ity of capsule 00:00: in the [place] 00 morning. Medical Branch omeprazole 2023-0 Yes 40mg Take 40 mg [facility] 40 mg 1-25 by mouth ity of capsule 00:00: in the [place] 00 morning. Medical Branch omeprazole 2023-0 Yes 40mg Take 40 mg [facility]ivers 40 mg 1-25 by mouth ity of capsule 00:00: in the [place] 00 morning. Medical Branch omeprazole 2023-0 Yes 40mg Take 40 mg [facility]ivers 40 mg 1-25 by mouth ity of capsule 00:00: in the [place] 00 morning. Medical Branch omeprazole 2023-0 Yes 40mg Take 40 mg [facility]ivers 40 mg 1-25 by mouth ity of capsule 00:00: in the [place] 00 morning. Medical Branch omeprazole 2023-0 Yes 40mg Take 40 mg U [facility]ivers 40 mg 1-25 by mouth ity of capsule 00:00: in the [place] 00 morning. Medical Branch omeprazole 2023-0 Yes 40mg Take 40 mg U [facility]ivers 40 mg 1-25 by mouth ity of capsule 00:00: in the [place] 00 morning. Medical Branch omeprazole 2023-0 Yes 40mg Take 40 mg U [facility]ivers 40 mg 1-25 by mouth ity of capsule 00:00: in the [place] 00 morning. Medical Branch omeprazole 2023-0 Yes 40mg Take 40 mg U [facility]ivers 40 mg 1-25 by mouth ity of capsule 00:00: in the [place] 00 morning. Medical Branch omeprazole 2023-0 Yes 40mg Take 40 mg U [facility]ivers 40 mg 1-25 by mouth ity of capsule 00:00: in the [place] 00 morning. Medical Branch omeprazole 2023-0 Yes 40mg Take 40 mg U [facility]ivers 40 mg 1-25 by mouth ity of capsule 00:00: in the [place] 00 morning. Medical Branch omeprazole 2023-0 Yes 40mg Take 40 mg U [facility]ivers 40 mg 1-25 by mouth ity of capsule 00:00: in the [place] 00 morning. Medical Branch omeprazole 2023-0 Yes 40mg Take 40 mg U [facility]ivers 40 mg 1-25 by mouth ity of capsule 00:00: in the [place] 00 morning. Medical Branch omeprazole 2023-0 Yes 40mg Take 40 mg [facility]ivers 40 mg 1-25 by mouth ity of capsule 00:00: in the [place] 00 morning. Medical Branch omeprazole 2023-0 Yes 40mg Take 40 mg U [facility]ivers 40 mg 1-25 by mouth ity of capsule 00:00: in the [place] 00 morning. Medical Branch omeprazole 2023-0 Yes 40mg Take 40 mg [facility]ivers 40 mg 1-25 by mouth ity of capsule 00:00: in the [place] 00 morning. Medical Branch omeprazole 2023-0 Yes 40mg Take 40 mg [facility]ivers 40 mg 1-25 by mouth ity of capsule 00:00: in the [place] 00 morning. Medical Branch omeprazole 2023-0 Yes 40mg Take 40 mg [facility]ivers 40 mg 1-25 by mouth ity of capsule 00:00: in the [place] 00 morning. Medical Branch omeprazole 2023-0 Yes 40mg Take 40 mg [facility] nivers 40 mg 1-25 by mouth ity of capsule 00:00: in the [place] 00 morning. Medical Branch omeprazole 2023-0 Yes 40mg Take 1 [facility] 40 mg 1-25 capsule by ity of capsule 00:00: mouth in [place] 00 the Medical morning. Branch omeprazole 2023-0 Yes 40mg Take 1 [facility] 40 mg 1-25 capsule by ity of capsule 00:00: mouth in [place] the Medical morning. Branch omeprazole 2023-0 Yes 40mg Take 1 [facility] 40 mg 1-25 capsule by ity of capsule 00:00: mouth in [place] the Medical morning. Branch omeprazole 2023-0 Yes 40mg Take 1 [facility] 40 mg 1-25 capsule by ity of capsule 00:00: mouth in [place] the Medical morning. Branch omeprazole 2023-0 Yes 40mg Take 1 [facility] 40 mg 1-25 capsule by ity of capsule 00:00: mouth in [place] the Medical morning. Branch omeprazole 2023-0 Yes 40mg Take 1 [facility] 40 mg 1-25 capsule by ity of capsule 00:00: mouth in [place] the morning. Branch omeprazole 2023-0 Yes 40mg Take 1 [facility] 40 mg 1-25 capsule by ity of capsule 00:00: mouth in [place] the Medical morning. Branch omeprazole 2023-0 Yes 40mg Take 1 [facility] 40 mg 1-25 capsule by ity of capsule 00:00: mouth in [place] the morning. Branch omeprazole 2023-0 Yes 40mg Take 1 [facility] 40 mg 1-25 capsule by ity of capsule 00:00: mouth in [place] the morning. Branch omeprazole 2023-0 Yes 40mg Take 1 [facility] 40 mg 1-25 capsule by ity of capsule 00:00: mouth in [place] the Medical morning. Branch omeprazole 2023-0 Yes 40mg Take 1 [facility] 40 mg 1-25 capsule by ity of capsule 00:00: mouth in [place] the Medical morning. Branch omeprazole 2023-0 Yes 40mg Take 1 [facility] 40 mg 1-25 capsule by ity of capsule 00:00: mouth in [place] the Medical morning. Branch omeprazole 2023-0 Yes 40mg Take 1 [facility] 40 mg 1-25 capsule by ity of capsule 00:00: mouth in [place] the Medical morning. Branch omeprazole 2023-0 Yes 40mg Take 1 [facility] 40 mg 1-25 capsule by ity of capsule 00:00: mouth in [place] the Medical morning. Branch omeprazole 2023-0 Yes 40mg Take 1 [facility] 40 mg 1-25 capsule by ity of capsule 00:00: mouth in [place] the Medical morning. Branch omeprazole 2023-0 Yes 40mg Take 1 [facility] 40 mg 1-25 capsule by ity of capsule 00:00: mouth in [place] the Medical morning. Branch omeprazole 2023-0 Yes 40mg Take 1 [facility] 40 mg 1-25 capsule by ity of capsule 00:00: mouth in [place] the Medical morning. Branch omeprazole 2023-0 Yes 40mg Take 1 [facility] 40 mg 1-25 capsule by ity of capsule 00:00: mouth in [place] the Medical morning. Branch omeprazole 2023-0 Yes 40mg Take 1 [facility] 40 mg 1-25 capsule by ity of capsule 00:00: mouth in [place] the Medical morning. Branch omeprazole 2023-0 Yes 40mg Take 1 [facility] 40 mg 1-25 capsule by ity of capsule 00:00: mouth in [place] the Medical morning. Branch omeprazole 2023-0 Yes 40mg Take 1 [facility] 40 mg 1-25 capsule by ity of capsule 00:00: mouth in [place] the Medical morning. Branch omeprazole 2023-0 Yes 40mg Take 1 [facility] 40 mg 1-25 capsule by ity of capsule 00:00: mouth in [place] the Medical morning. Branch omeprazole 2023-0 Yes 40mg Take 1 [facility] 40 mg 1-25 capsule by ity of capsule 00:00: mouth in [place] the Medical morning. Branch omeprazole 2023-0 Yes 40mg Take 1 [facility] 40 mg 1-25 capsule by ity of capsule 00:00: mouth in [place] the Medical morning. Branch omeprazole 2023-0 Yes 40mg Take 1 [facility] 40 mg 1-25 capsule by ity of capsule 00:00: mouth in [place] the Medical morning. Branch omeprazole 2023-0 Yes 40mg Take 1 [facility] 40 mg 1-25 capsule by ity of capsule 00:00: mouth in [place] the Medical morning. Branch omeprazole 2023-0 Yes 40mg Take 1 [facility] 40 mg 1-25 capsule by ity of capsule 00:00: mouth in [place] the Medical morning. Branch omeprazole 2023-0 Yes 40mg Take 1 [facility] 40 mg 1-25 capsule by ity of capsule 00:00: mouth in [place] the Medical morning. Branch omeprazole 2023-0 Yes 40mg Take 1 [facility] 40 mg 1-25 capsule by ity of capsule 00:00: mouth in [place] the Medical morning. Branch omeprazole 2023-0 Yes 40mg Take 1 [facility] 40 mg 1-25 capsule by ity of capsule 00:00: mouth in [place] the Medical morning. Branch omeprazole 2023-0 Yes 40mg Take 1 [facility] 40 mg 1-25 capsule by ity of capsule 00:00: mouth in [place] the Medical morning. Branch omeprazole 2023-0 Yes 40mg Take 1 [facility] 40 mg 1-25 capsule by ity of capsule 00:00: mouth in [place] the Medical morning. Branch omeprazole 2023-0 Yes 40mg Take 1 [facility] 40 mg 1-25 capsule by ity of capsule 00:00: mouth in [place] the Medical morning. Branch omeprazole 2023-0 Yes 40mg Take 1 [facility] 40 mg 1-25 capsule by ity of capsule 00:00: mouth in [place] the Medical morning. Branch omeprazole 2023-0 Yes 40mg Take 1 [facility] 40 mg 1-25 capsule by ity of capsule 00:00: mouth in [place] the Medical morning. Branch omeprazole 2023-0 Yes 40mg Take 1 [facility] 40 mg 1-25 capsule by ity of capsule 00:00: mouth in [place] the Medical morning. Branch omeprazole 2023-0 Yes 40mg Take 1 [facility] 40 mg 1-25 capsule by ity of capsule 00:00: mouth in [place] the Medical morning. Branch omeprazole 2023-0 Yes 40mg Take 1 [facility] 40 mg 1-25 capsule by ity of capsule 00:00: mouth in [place] the Medical morning. Branch omeprazole 2023-0 Yes 40mg Take 1 [facility] 40 mg 1-25 capsule by ity of capsule 00:00: mouth in [place] the Medical morning. Branch omeprazole 2023-0 Yes 40mg Take 1 [facility] 40 mg 1-25 capsule by ity of capsule 00:00: mouth in [place] the Medical morning. Branch omeprazole 2023-0 Yes 40mg Take 1 [facility] 40 mg 1-25 capsule by ity of capsule 00:00: mouth in [place] the Medical morning. Branch omeprazole 2023-0 Yes 40mg Take 1 [facility] 40 mg 1-25 capsule by ity of capsule 00:00: mouth in [place] the Medical morning. Branch omeprazole 2023-0 Yes 40mg Take 1 [facility] 40 mg 1-25 capsule by ity of capsule 00:00: mouth in [place] the Medical morning. Branch omeprazole 2023-0 Yes 40mg Take 1 [facility] 40 mg 1-25 capsule by ity of capsule 00:00: mouth in [place] the Medical morning. Branch omeprazole 2023-0 Yes 40mg Take 1 [facility] 40 mg 1-25 capsule by ity of capsule 00:00: mouth in [place] the Medical morning. Branch omeprazole 2023-0 Yes 40mg Take 1 [facility] 40 mg 1-25 capsule by ity of capsule 00:00: mouth in [place] the Medical morning. Branch omeprazole 2023-0 Yes 40mg Take 1 [facility] 40 mg 1-25 capsule by ity of capsule 00:00: mouth in [place] the Medical morning. Branch omeprazole 2023-0 Yes 40mg Take 1 [facility] 40 mg 1-25 capsule by ity of capsule 00:00: mouth in [place] the Medical morning. Branch omeprazole 2023-0 Yes 40mg Take 1 [facility] 40 mg 1-25 capsule by ity of capsule 00:00: mouth in [place] the Medical morning. Branch omeprazole 2023-0 Yes 40mg Take 1 [facility] 40 mg 1-25 capsule by ity of capsule 00:00: mouth in [place] the Medical morning. Branch omeprazole 2023-0 Yes 40mg Take 1 [facility] 40 mg 1-25 capsule by ity of capsule 00:00: mouth in [place] the Medical morning. Branch omeprazole 2023-0 Yes 40mg Take 1 [facility] 40 mg 1-25 capsule by ity of capsule 00:00: mouth in [place] the Medical morning. Branch omeprazole 2023-0 Yes 40mg Take 1 [facility] 40 mg 1-25 capsule by ity of capsule 00:00: mouth in [place] the Medical morning. Branch omeprazole 2023-0 Yes 40mg Take 1 [facility] 40 mg 1-25 capsule by ity of capsule 00:00: mouth in [place] the Medical morning. Branch omeprazole 2023-0 Yes 40mg Take 1 [facility] 40 mg 1-25 capsule by ity of capsule 00:00: mouth in [place] the morning. Branch omeprazole 2023-0 Yes 40mg Take 1 [facility] 40 mg 1-25 capsule by ity of capsule 00:00: mouth in [place] the morning. Branch omeprazole 2023-0 Yes 40mg Take 1 [facility] 40 mg 1-25 capsule by ity of capsule 00:00: mouth in [place] the Medical morning. Branch omeprazole 2023-0 Yes 40mg Take 1 [facility] 40 mg 1-25 capsule by ity of capsule 00:00: mouth in [place] the Medical morning. Branch omeprazole 2023-0 Yes 40mg Take 1 [facility] 40 mg 1-25 capsule by ity of capsule 00:00: mouth in [place] the morning. Branch omeprazole 2023-0 Yes 40mg Take 1 [facility] 40 mg 1-25 capsule by ity of capsule 00:00: mouth in [place] the morning. Branch omeprazole 2023-0 Yes 40mg Take 1 [facility] 40 mg 1-25 capsule by ity of capsule 00:00: mouth in [place] the morning. Branch omeprazole 2023-0 Yes 40mg Take 1 [facility] 40 mg 1-25 capsule by ity of capsule 00:00: mouth in [place] the morning. Branch omeprazole 2023-0 Yes 40mg Take 1 [facility] 40 mg 1-25 capsule by ity of capsule 00:00: mouth in [place] the morning. Branch amitriptyli 3-0 Yes 25mg Take 25 mg [facility] 25 mg 1-16 by mouth ity of tablet 00:00: at [place] [address] bedtime. Medical Branch citalopram 3-0 Yes 40mg Take 40 mg U nivers 40 mg 1-16 by mouth ity of tablet 00:00: in the [place] morning. Medical Branch proMETHazin 3-0 Yes 1{tbl} Take 1 Un tabitha e 12.5 mg 1-16 tablet by ity o f tablet 00:00: mouth as [place] [address] needed. Medical Branch amitriptyli 3-0 Yes 25mg Take 25 mg [facility] ne 25 mg 1-16 by mouth ity of tablet 00:00: at [place] [address] bedtime. Medical Branch citalopram 2022-0 Yes 40mg Take 40 mg U nivers 40 mg 1-16 by mouth ity of tablet 00:00: in the [place] morning. Medical Branch proMETHazin 2022-0 Yes 1{tbl} Take 1 Un tabitha e 12.5 mg 1-16 tablet by ity o f tablet 00:00: mouth as [place] [address] needed. Medical Branch amitriptyli 2022-0 Yes 25mg Take 25 mg [facility] ne 25 mg 1-16 by mouth ity of tablet 00:00: at [place] [address] bedtime. Medical Branch citalopram 2022-0 Yes 40mg Take 40 mg U nivers 40 mg 1-16 by mouth ity of tablet 00:00: in the [place] morning. Medical Branch proMETHazin 2022-0 Yes 1{tbl} Take 1 Un tabitha e 12.5 mg 1-16 tablet by ity o f tablet 00:00: mouth as [place] [address] needed. Medical Branch amitriptyli 2022-0 Yes 25mg Take 25 mg [facility] ne 25 mg 1-16 by mouth ity of tablet 00:00: at [place] [address] bedtime. Medical Branch citalopram 2022-0 Yes 40mg Take 40 mg U nivers 40 mg 1-16 by mouth ity of tablet 00:00: in the [place] morning. Medical Branch proMETHazin 2022-0 Yes 1{tbl} Take 1 Un tabitha e 12.5 mg 1-16 tablet by ity o f tablet 00:00: mouth as [place] [address] needed. Medical Branch amitriptyli 2022-0 Yes 25mg Take 25 mg [facility] ne 25 mg 1-16 by mouth ity of tablet 00:00: at [place] [address] bedtime. Medical Branch citalopram 2022-0 Yes 40mg Take 40 mg U nivers 40 mg 1-16 by mouth ity of tablet 00:00: in the [place] morning. Medical Branch proMETHazin 2022-0 Yes 1{tbl} Take 1 Un tabitha e 12.5 mg 1-16 tablet by ity o f tablet 00:00: mouth as [place] needed. Medical Branch amitriptyli 2022-0 Yes 25mg Take 25 mg [facility] ne 25 mg 1-16 by mouth ity of tablet 00:00: at [place] [address] bedtime. Medical Branch citalopram 2022-0 Yes 40mg Take 40 mg U nivers 40 mg 1-16 by mouth ity of tablet 00:00: in the [place] morning. Medical Branch proMETHazin 2022-0 Yes 1{tbl} Take 1 Un tabitha e 12.5 mg 1-16 tablet by ity o f tablet 00:00: mouth as [place] [address] needed. Medical Branch amitriptyli 2022-0 Yes 25mg Take 25 mg [facility] 25 mg 1-16 by mouth ity of tablet 00:00: at [place] [address] bedtime. Medical Branch citalopram 2022-0 Yes 40mg Take 40 mg [facility] nivers 40 mg 1-16 by mouth ity of tablet 00:00: in the [place] morning. Medical Branch proMETHazin 2022-0 Yes 1{tbl} Take 1 Un tabitha e 12.5 mg 1-16 tablet by ity o f tablet 00:00: mouth as [place] [address] needed. Medical Branch amitriptyli 2022-0 Yes 25mg Take 25 mg [facility] 25 mg 1-16 by mouth ity of tablet 00:00: at [place] [address] bedtime. Medical Branch citalopram 2022-0 Yes 40mg Take 40 mg [facility] nivers 40 mg 1-16 by mouth ity of tablet 00:00: in the [place] morning. Medical Branch proMETHazin 2022-0 Yes 1{tbl} Take 1 Un tabitha e 12.5 mg 1-16 tablet by ity o f tablet 00:00: mouth as [place] [address] needed. Medical Branch amitriptyli 2022-0 Yes 25mg Take 25 mg [facility] 25 mg 1-16 by mouth ity of tablet 00:00: at [place] [address] bedtime. Medical Branch citalopram 2022-0 Yes 40mg Take 40 mg [facility] n[facility] 40 mg 1-16 by mouth ity of tablet 00:00: in the [place] morning. Medical Branch proMETHazin 2022-0 Yes 1{tbl} Take 1 Un tabitha e 12.5 mg 1-16 tablet by ity o f tablet 00:00: mouth as [place] needed. Medical Branch amitriptyli 2022-0 Yes 25mg Take 25 mg [facility] 25 mg 1-16 by mouth ity of tablet 00:00: at [place] [address] bedtime. Medical Branch citalopram 2022-0 Yes 40mg Take 40 mg [facility] nivers 40 mg 1-16 by mouth ity of tablet 00:00: in the [place] morning. Medical Branch proMETHazin 2022-0 Yes 1{tbl} Take 1 Un tabitha e 12.5 mg 1-16 tablet by ity o f tablet 00:00: mouth as [place] [address] needed. Medical Branch amitriptyli 2022-0 Yes 25mg Take 25 mg [facility] 25 mg 1-16 by mouth ity of tablet 00:00: at [place] [address] bedtime. Medical Branch citalopram 2022-0 Yes 40mg Take 40 mg [facility] nivers 40 mg 1-16 by mouth ity of tablet 00:00: in the [place] morning. Medical Branch proMETHazin 2022-0 Yes 1{tbl} Take 1 Un tabitha e 12.5 mg 1-16 tablet by ity o f tablet 00:00: mouth as [place] [address] needed. Medical Branch amitriptyli 2022-0 Yes 25mg Take 25 mg [facility] ne 25 mg 1-16 by mouth ity of tablet 00:00: at [place] [address] bedtime. Medical Branch citalopram 2022-0 Yes 40mg Take 40 mg [facility] nivers 40 mg 1-16 by mouth ity of tablet 00:00: in the [place] morning. Medical Branch proMETHazin 2022-0 Yes 1{tbl} Take 1 Un tabitha e 12.5 mg 1-16 tablet by ity o f tablet 00:00: mouth as [place] [address] needed. Medical Branch amitriptyli 2022-0 Yes 25mg Take 25 mg [facility] 25 mg 1-16 by mouth ity of tablet 00:00: at [place] [address] bedtime. Medical Branch citalopram 2022-0 Yes 40mg Take 40 mg [facility] nivers 40 mg 1-16 by mouth ity of tablet 00:00: in the [place] morning. Medical Branch proMETHazin 2022-0 Yes 1{tbl} Take 1 Un tabitha e 12.5 mg 1-16 tablet by [facility] o f tablet 00:00: mouth as [place] needed. [facility] amitriptyli 2022-0 Yes 25mg Take 25 mg [facility] 25 mg 1-16 by mouth [facility] of tablet 00:00: at [place] [id number] bedtime. [facility] citalopram 2022-0 Yes 40mg Take 40 mg [facility] nivers 40 mg 1-16 by mouth [facility] of tablet 00:00: in the [place] morning. [facility] proMETHazin 2022-0 Yes 1{tbl} Take 1 Un tabitha e 12.5 mg 1-16 tablet by ity o f tablet 00:00: mouth as [place] [address] needed. [facility] amitriptyli 2022-0 Yes 25mg Take 25 mg [facility] 25 mg 1-16 by mouth [facility] of tablet 00:00: at [place] [address] bedtime. [facility] citalopram 2022-0 Yes 40mg Take 40 mg [facility] 40 mg 1-16 by mouth [facility] of tablet 00:00: in the [place] morning. [facility] proMETHazin 2022-0 Yes 1{tbl} Take 1 Un tabitha e 12.5 mg 1-16 tablet by [facility] o f tablet 00:00: mouth as [place] [address] needed. [facility] amitriptyli 2022-0 Yes 25mg Take 25 mg [facility] 25 mg 1-16 by mouth [facility] of tablet 00:00: at [place] [address] bedtime. [facility] citalopram 2022-0 Yes 40mg Take 40 mg [facility] n[facility] 40 mg 1-16 by mouth [facility] of tablet 00:00: in the [place] morning. [facility] proMETHazin 2022-0 Yes 1{tbl} Take 1 Un tabitha e 12.5 mg 1-16 tablet by [facility] o f tablet 00:00: mouth as [place] [address] needed. [facility] amitriptyli 2022-0 Yes 25mg Take 25 mg [facility] 25 mg 1-16 by mouth [facility] of tablet 00:00: at [place] [address] bedtime. [facility] citalopram 2022-0 Yes 40mg Take 40 mg [facility] n[facility] 40 mg 1-16 by mouth ity of tablet 00:00: in the [place] morning. [facility] proMETHazin 2022-0 Yes 1{tbl} Take 1 Un tabitha e 12.5 mg 1-16 tablet by [facility] o f tablet 00:00: mouth as [place] needed. [facility] amitriptyli 2022-0 Yes 25mg Take 25 mg [facility] 25 mg 1-16 by mouth [facility] of tablet 00:00: at [place] [address] bedtime. [facility] citalopram 2022-0 Yes 40mg Take 40 mg [facility] 40 mg 1-16 by mouth [facility] of tablet 00:00: in the [place] morning. [facility] proMETHazin 2022-0 Yes 1{tbl} Take 1 Un tabitha e 12.5 mg 1-16 tablet by [facility] o f tablet 00:00: mouth as [place] [address] needed. [facility] amitriptyli 2022-0 Yes 25mg Take 25 mg [facility] 25 mg 1-16 by mouth [facility] of tablet 00:00: at [place] [address] bedtime. [facility] citalopram 2022-0 Yes 40mg Take 40 mg [facility] n[facility] 40 mg 1-16 by mouth [facility] of tablet 00:00: in the [place] morning. [facility] proMETHazin 2022-0 Yes 1{tbl} Take 1 Un tabitha e 12.5 mg 1-16 tablet by [facility] o f tablet 00:00: mouth as [place] [address] needed. [facility] amitriptyli 2022-0 Yes 25mg Take 25 mg [facility] 25 mg 1-16 by mouth [facility] of tablet 00:00: at [place] [address] bedtime. [facility] citalopram 2022-0 Yes 40mg Take 40 mg [facility] 40 mg 1-16 by mouth [facility] of tablet 00:00: in the [place] morning. [facility] proMETHazin 2022-0 Yes 1{tbl} Take 1 Un tabitha e 12.5 mg 1-16 tablet by [facility] o f tablet 00:00: mouth as [place] [address] needed. [facility] amitriptyli 2022-0 Yes 25mg Take 25 mg [facility] 25 mg 1-16 by mouth ity of tablet 00:00: at [place] [address] bedtime. [facility] citalopram 2022-0 Yes 40mg Take 40 mg [facility] 40 mg 1-16 by mouth [facility] of tablet 00:00: in the [place] morning. [facility] proMETHazin 2022-0 Yes 1{tbl} Take 1 Un tabitha e 12.5 mg 1-16 tablet by [facility] o f tablet 00:00: mouth as [place] needed. [facility] amitriptyli 2022-0 Yes 25mg Take 25 mg [facility] 25 mg 1-16 by mouth [facility]y of tablet 00:00: at [place] [address] bedtime. [facility] citalopram 2022-0 Yes 40mg Take 40 mg [facility] 40 mg 1-16 by mouth ity of tablet 00:00: in the [place] morning. [facility] proMETHazin 2022-0 Yes 1{tbl} Take 1 Un tabitha e 12.5 mg 1-16 tablet by [facility] o f tablet 00:00: mouth as [place] [address] needed. [facility] amitriptyli 2022-0 Yes 25mg Take 25 mg [facility] 25 mg 1-16 by mouth ity of tablet 00:00: at [place] [address] bedtime. [facility] citalopram 2022-0 Yes 40mg Take 40 mg [facility] n[facility] 40 mg 1-16 by mouth ity of tablet 00:00: in the [place] morning. [facility] proMETHazin 2022-0 Yes 1{tbl} Take 1 Un tabitha e 12.5 mg 1-16 tablet by [facility] o f tablet 00:00: mouth as [place] [address] needed. [facility] amitriptyli 2022-0 Yes 25mg Take 25 mg [facility] 25 mg 1-16 by mouth ity of tablet 00:00: at [place] [address] bedtime. [facility] citalopram 2022-0 Yes 40mg Take 40 mg [facility] n[facility] 40 mg 1-16 by mouth [facility] of tablet 00:00: in the [place] morning. [facility] proMETHazin 2022-0 Yes 1{tbl} Take 1 Un tabitha e 12.5 mg 1-16 tablet by [facility] o f tablet 00:00: mouth as [place] [address] needed. [facility] amitriptyli 2022-0 Yes 25mg Take 1 [facility] ne 25 mg 1-16 tablet by [facility] of tablet 00:00: mouth at [place] [address] bedtime. [facility] citalopram 2022-0 Yes 40mg Take 1 [facility] rs 40 mg 1-16 tablet by [facility] of tablet 00:00: mouth in [place] the Medical morning. Branch proMETHazin 2022-0 Yes 12.5mg Take 1 Un tabitha e 12.5 mg 1-16 tablet by [facility] o f tablet 00:00: mouth as [place] [address] needed. [facility] amitriptyli 2022-0 Yes 25mg Take 1 [facility] ne 25 mg 1-16 tablet by [facility] of tablet 00:00: mouth at [place] bedtime. [facility] citalopram 2022-0 Yes 40mg Take 1 [facility] rs 40 mg 1-16 tablet by [facility] of tablet 00:00: mouth in [place] the Medical morning. Branch proMETHazin 2022-0 Yes 12.5mg Take 1 Un tabitha e 12.5 mg 1-16 tablet by [facility] o f tablet 00:00: mouth as [place] 00 needed. [facility] amitriptyli 2022-0 Yes 25mg Take 1 [facility] 25 mg 1-16 tablet by [facility] of tablet 00:00: mouth at [place] 00 bedtime. [facility] citalopram 2022-0 Yes 40mg Take 1 [facility] rs 40 mg 1-16 tablet by [facility] of tablet 00:00: mouth in [place] the Medical morning. Branch proMETHazin 2022-0 Yes 12.5mg Take 1 Un tabitha e 12.5 mg 1-16 tablet by [facility] o f tablet 00:00: mouth as [place] needed. [facility] amitriptyli 2022-0 Yes 25mg Take 1 [facility] ne 25 mg 1-16 tablet by [facility] of tablet 00:00: mouth at [place] 00 bedtime. [facility] citalopram 2022-0 Yes 40mg Take 1 [facility] rs 40 mg 1-16 tablet by [facility] of tablet 00:00: mouth in [place] the Medical morning. [facility] proMETHazin 2022-0 Yes 12.5mg Take 1 Un tabitha e 12.5 mg 1-16 tablet by [facility] o f tablet 00:00: mouth as [place] needed. [facility] amitriptyli 3-0 Yes 25mg Take 1 [facility] ne 25 mg 1-16 tablet by [facility] of tablet 00:00: mouth at [place] 00 bedtime. [facility] citalopram 2022-0 Yes 40mg Take 1 [facility] rs 40 mg 1-16 tablet by [facility] of tablet 00:00: mouth in [place] the Medical morning. Branch proMETHazin 3-0 Yes 12.5mg Take 1 Un tabitha e 12.5 mg 1-16 tablet by [facility] o f tablet 00:00: mouth as [place] 00 needed. [facility] amitriptyli 3-0 Yes 25mg Take 1 [facility] ne 25 mg 1-16 tablet by [facility] of tablet 00:00: mouth at [place] bedtime. [facility] citalopram 2022-0 Yes 40mg Take 1 [facility] rs 40 mg 1-16 tablet by [facility] of tablet 00:00: mouth in [place] the Medical morning. [facility] proMETHazin 2022-0 Yes 12.5mg Take 1 Un tabitha e 12.5 mg 1-16 tablet by [facility] o f tablet 00:00: mouth as [place] 00 needed. [facility] amitriptyli 2022-0 Yes 25mg Take 1 [facility] ne 25 mg 1-16 tablet by [facility] of tablet 00:00: mouth at [place] 00 bedtime. [facility] citalopram 2022-0 Yes 40mg Take 1 [facility] rs 40 mg 1-16 tablet by [facility] of tablet 00:00: mouth in [place] the Medical morning. Branch proMETHazin 2022-0 Yes 12.5mg Take 1 Un tabitha e 12.5 mg 1-16 tablet by [facility] o f tablet 00:00: mouth as [place] needed. [facility] amitriptyli 2022-0 Yes 25mg Take 1 [facility] ne 25 mg 1-16 tablet by [facility] of tablet 00:00: mouth at [place] 00 bedtime. [facility] citalopram 2022-0 Yes 40mg Take 1 [facility] rs 40 mg 1-16 tablet by [facility] of tablet 00:00: mouth in [place] the Medical morning. Branch proMETHazin 2022-0 Yes 12.5mg Take 1 Un tabitha e 12.5 mg 1-16 tablet by [facility] o f tablet 00:00: mouth as [place] needed. [facility] amitriptyli 3-0 Yes 25mg Take 1 [facility] ne 25 mg 1-16 tablet by [facility] of tablet 00:00: mouth at [place] 00 bedtime. [facility] citalopram 2022-0 Yes 40mg Take 1 [facility] rs 40 mg 1-16 tablet by [facility] of tablet 00:00: mouth in [place] the Medical morning. Branch proMETHazin 3-0 Yes 12.5mg Take 1 Un tabitha e 12.5 mg 1-16 tablet by [facility] o f tablet 00:00: mouth as [place] 00 needed. [facility] amitriptyli 3-0 Yes 25mg Take 1 [facility] ne 25 mg 1-16 tablet by [facility] of tablet 00:00: mouth at [place] bedtime. [facility] citalopram 2022-0 Yes 40mg Take 1 [facility] rs 40 mg 1-16 tablet by [facility] of tablet 00:00: mouth in [place] the Medical morning. Branch proMETHazin 2022-0 Yes 12.5mg Take 1 Un tabitha e 12.5 mg 1-16 tablet by [facility] o f tablet 00:00: mouth as [place] 00 needed. [facility] amitriptyli 2022-0 Yes 25mg Take 1 [facility] ne 25 mg 1-16 tablet by [facility] of tablet 00:00: mouth at [place] 00 bedtime. [facility] citalopram 2022-0 Yes 40mg Take 1 [facility] rs 40 mg 1-16 tablet by [facility] of tablet 00:00: mouth in [place] the Medical morning. Branch proMETHazin 2022-0 Yes 12.5mg Take 1 Un tabitha e 12.5 mg 1-16 tablet by [facility] o f tablet 00:00: mouth as [place] needed. [facility] amitriptyli 2022-0 Yes 25mg Take 1 [facility] ne 25 mg 1-16 tablet by [facility] of tablet 00:00: mouth at [place] 00 bedtime. [facility] citalopram 2022-0 Yes 40mg Take 1 [facility] rs 40 mg 1-16 tablet by [facility] of tablet 00:00: mouth in [place] the Medical morning. Branch proMETHazin 2022-0 Yes 12.5mg Take 1 Un tabitha e 12.5 mg 1-16 tablet by [facility] o f tablet 00:00: mouth as [place] needed. [facility] amitriptyli 3-0 Yes 25mg Take 1 [facility] ne 25 mg 1-16 tablet by [facility] of tablet 00:00: mouth at [place] 00 bedtime. [facility] citalopram 2022-0 Yes 40mg Take 1 [facility] rs 40 mg 1-16 tablet by [facility] of tablet 00:00: mouth in [place] the Medical morning. Branch proMETHazin 3-0 Yes 12.5mg Take 1 Un tabitha e 12.5 mg 1-16 tablet by [facility] o f tablet 00:00: mouth as [place] 00 needed. [facility] amitriptyli 3-0 Yes 25mg Take 1 [facility] ne 25 mg 1-16 tablet by [facility] of tablet 00:00: mouth at [place] bedtime. [facility] citalopram 2022-0 Yes 40mg Take 1 [facility] rs 40 mg 1-16 tablet by [facility] of tablet 00:00: mouth in [place] the Medical morning. Branch proMETHazin 2022-0 Yes 12.5mg Take 1 Un tabitha e 12.5 mg 1-16 tablet by [facility] o f tablet 00:00: mouth as [place] 00 needed. [facility] amitriptyli 2022-0 Yes 25mg Take 1 [facility] ne 25 mg 1-16 tablet by [facility] of tablet 00:00: mouth at [place] 00 bedtime. [facility] citalopram 2022-0 Yes 40mg Take 1 [facility] rs 40 mg 1-16 tablet by [facility] of tablet 00:00: mouth in [place] the Medical morning. Branch proMETHazin 2022-0 Yes 12.5mg Take 1 Un tabitha e 12.5 mg 1-16 tablet by [facility] o f tablet 00:00: mouth as [place] needed. [facility] amitriptyli 2022-0 Yes 25mg Take 1 [facility] ne 25 mg 1-16 tablet by [facility] of tablet 00:00: mouth at [place] 00 bedtime. [facility] citalopram 2022-0 Yes 40mg Take 1 [facility] rs 40 mg 1-16 tablet by [facility] of tablet 00:00: mouth in [place] the Medical morning. Branch proMETHazin 2022-0 Yes 12.5mg Take 1 Un tabitha e 12.5 mg 1-16 tablet by [facility] o f tablet 00:00: mouth as [place] needed. [facility] amitriptyli 3-0 Yes 25mg Take 1 [facility] ne 25 mg 1-16 tablet by [facility] of tablet 00:00: mouth at [place] 00 bedtime. [facility] citalopram 2022-0 Yes 40mg Take 1 [facility] rs 40 mg 1-16 tablet by [facility] of tablet 00:00: mouth in [place] the Medical morning. Branch proMETHazin 3-0 Yes 12.5mg Take 1 Un tabitha e 12.5 mg 1-16 tablet by [facility] o f tablet 00:00: mouth as [place] 00 needed. [facility] amitriptyli 3-0 Yes 25mg Take 1 [facility] ne 25 mg 1-16 tablet by [facility] of tablet 00:00: mouth at [place] bedtime. [facility] citalopram 2022-0 Yes 40mg Take 1 [facility] rs 40 mg 1-16 tablet by [facility] of tablet 00:00: mouth in [place] the Medical morning. Branch proMETHazin 2022-0 Yes 12.5mg Take 1 Un tabitha e 12.5 mg 1-16 tablet by [facility] o f tablet 00:00: mouth as [place] 00 needed. [facility] amitriptyli 2022-0 Yes 25mg Take 1 [facility] ne 25 mg 1-16 tablet by [facility] of tablet 00:00: mouth at [place] 00 bedtime. [facility] citalopram 2022-0 Yes 40mg Take 1 [facility] rs 40 mg 1-16 tablet by [facility] of tablet 00:00: mouth in [place] the Medical morning. Branch proMETHazin 2022-0 Yes 12.5mg Take 1 Un tabitha e 12.5 mg 1-16 tablet by ity o f tablet 00:00: mouth as [place] needed. [facility] amitriptyli 2022-0 Yes 25mg Take 1 [facility] ne 25 mg 1-16 tablet by [facility] of tablet 00:00: mouth at [place] 00 bedtime. [facility] citalopram 2022-0 Yes 40mg Take 1 [facility] rs 40 mg 1-16 tablet by [facility] of tablet 00:00: mouth in [place] the Medical morning. Branch proMETHazin 2022-0 Yes 12.5mg Take 1 Un tabitha e 12.5 mg 1-16 tablet by it[facility] o f tablet 00:00: mouth as [place] needed. [facility] amitriptyli 3-0 Yes 25mg Take 1 [facility] ne 25 mg 1-16 tablet by [facility] of tablet 00:00: mouth at [place] 00 bedtime. [facility] citalopram 2022-0 Yes 40mg Take 1 [facility] rs 40 mg 1-16 tablet by [facility] of tablet 00:00: mouth in [place] the Medical morning. Branch proMETHazin 3-0 Yes 12.5mg Take 1 Un tabitha e 12.5 mg 1-16 tablet by [facility] o f tablet 00:00: mouth as [place] 00 needed. [facility] amitriptyli 3-0 Yes 25mg Take 1 [facility] ne 25 mg 1-16 tablet by [facility] of tablet 00:00: mouth at [place] bedtime. [facility] citalopram 2022-0 Yes 40mg Take 1 [facility] rs 40 mg 1-16 tablet by [facility] of tablet 00:00: mouth in [place] the Medical morning. Branch proMETHazin 2022-0 Yes 12.5mg Take 1 Un tabitha e 12.5 mg 1-16 tablet by [facility]y o f tablet 00:00: mouth as [place] 00 needed. [facility] amitriptyli 2022-0 Yes 25mg Take 1 [facility] ne 25 mg 1-16 tablet by [facility] of tablet 00:00: mouth at [place] 00 bedtime. [facility] citalopram 2022-0 Yes 40mg Take 1 [facility] rs 40 mg 1-16 tablet by [facility] of tablet 00:00: mouth in [place] the Medical morning. Branch proMETHazin 2022-0 Yes 12.5mg Take 1 Un tabitha e 12.5 mg 1-16 tablet by [facility] o f tablet 00:00: mouth as [place] needed. [facility] amitriptyli 2022-0 Yes 25mg Take 1 [facility] ne 25 mg 1-16 tablet by [facility] of tablet 00:00: mouth at [place] 00 bedtime. [facility] citalopram 2022-0 Yes 40mg Take 1 [facility] rs 40 mg 1-16 tablet by [facility] of tablet 00:00: mouth in [place] the Medical morning. Branch proMETHazin 2022-0 Yes 12.5mg Take 1 Un tabitha e 12.5 mg 1-16 tablet by [facility] o f tablet 00:00: mouth as [place] needed. [facility] amitriptyli 3-0 Yes 25mg Take 1 [facility] ne 25 mg 1-16 tablet by [facility] of tablet 00:00: mouth at [place] 00 bedtime. [facility] citalopram 2022-0 Yes 40mg Take 1 [facility] rs 40 mg 1-16 tablet by [facility] of tablet 00:00: mouth in [place] the Medical morning. Branch proMETHazin 3-0 Yes 12.5mg Take 1 Un tabitha e 12.5 mg 1-16 tablet by ity o f tablet 00:00: mouth as [place] 00 needed. [facility] amitriptyli 3-0 Yes 25mg Take 1 [facility] ne 25 mg 1-16 tablet by [facility] of tablet 00:00: mouth at [place] bedtime. [facility] citalopram 2022-0 Yes 40mg Take 1 [facility] rs 40 mg 1-16 tablet by [facility] of tablet 00:00: mouth in [place] the Medical morning. Branch proMETHazin 2022-0 Yes 12.5mg Take 1 Un tabitha e 12.5 mg 1-16 tablet by [facility] o f tablet 00:00: mouth as [place] 00 needed. [facility] amitriptyli 2022-0 Yes 25mg Take 1 [facility] ne 25 mg 1-16 tablet by [facility] of tablet 00:00: mouth at [place] 00 bedtime. [facility] citalopram 2022-0 Yes 40mg Take 1 [facility] rs 40 mg 1-16 tablet by [facility] of tablet 00:00: mouth in [place] the Medical morning. Branch proMETHazin 2022-0 Yes 12.5mg Take 1 Un tabitha e 12.5 mg 1-16 tablet by ity o f tablet 00:00: mouth as [place] needed. [facility] amitriptyli 2022-0 Yes 25mg Take 1 [facility] ne 25 mg 1-16 tablet by [facility] of tablet 00:00: mouth at [place] 00 bedtime. [facility] citalopram 2022-0 Yes 40mg Take 1 [facility] rs 40 mg 1-16 tablet by [facility] of tablet 00:00: mouth in [place] the Medical morning. Branch proMETHazin 2022-0 Yes 12.5mg Take 1 Un tabitha e 12.5 mg 1-16 tablet by [facility] o f tablet 00:00: mouth as [place] needed. [facility] amitriptyli 3-0 Yes 25mg Take 1 [facility] ne 25 mg 1-16 tablet by [facility] of tablet 00:00: mouth at [place] 00 bedtime. [facility] citalopram 2022-0 Yes 40mg Take 1 [facility] rs 40 mg 1-16 tablet by [facility] of tablet 00:00: mouth in [place] the Medical morning. Branch proMETHazin 3-0 Yes 12.5mg Take 1 Un tabitha e 12.5 mg 1-16 tablet by ity o f tablet 00:00: mouth as [place] 00 needed. [facility] amitriptyli 3-0 Yes 25mg Take 1 [facility] ne 25 mg 1-16 tablet by [facility] of tablet 00:00: mouth at [place] bedtime. [facility] citalopram 2022-0 Yes 40mg Take 1 [facility] rs 40 mg 1-16 tablet by [facility] of tablet 00:00: mouth in [place] the Medical morning. Branch proMETHazin 2022-0 Yes 12.5mg Take 1 Un tabitha e 12.5 mg 1-16 tablet by [facility] o f tablet 00:00: mouth as [place] 00 needed. [facility] amitriptyli 2022-0 Yes 25mg Take 1 [facility] ne 25 mg 1-16 tablet by [facility] of tablet 00:00: mouth at [place] 00 bedtime. [facility] citalopram 2022-0 Yes 40mg Take 1 [facility] rs 40 mg 1-16 tablet by [facility] of tablet 00:00: mouth in [place] the Medical morning. Branch proMETHazin 2022-0 Yes 12.5mg Take 1 Un tabitha e 12.5 mg 1-16 tablet by ity o f tablet 00:00: mouth as [place] needed. [facility] amitriptyli 2022-0 Yes 25mg Take 1 [facility] ne 25 mg 1-16 tablet by [facility] of tablet 00:00: mouth at [place] 00 bedtime. [facility] citalopram 2022-0 Yes 40mg Take 1 [facility] rs 40 mg 1-16 tablet by [facility] of tablet 00:00: mouth in [place] the Medical morning. Branch proMETHazin 2022-0 Yes 12.5mg Take 1 Un tabitha e 12.5 mg 1-16 tablet by [facility] o f tablet 00:00: mouth as [place] needed. [facility] amitriptyli 3-0 Yes 25mg Take 1 [facility] ne 25 mg 1-16 tablet by [facility] of tablet 00:00: mouth at [place] 00 bedtime. [facility] citalopram 2022-0 Yes 40mg Take 1 [facility] rs 40 mg 1-16 tablet by [facility] of tablet 00:00: mouth in [place] the Medical morning. Branch proMETHazin 3-0 Yes 12.5mg Take 1 Un tabitha e 12.5 mg 1-16 tablet by [facility] o f tablet 00:00: mouth as [place] 00 needed. [facility] amitriptyli 3-0 Yes 25mg Take 1 [facility] ne 25 mg 1-16 tablet by [facility] of tablet 00:00: mouth at [place] bedtime. [facility] citalopram 2022-0 Yes 40mg Take 1 [facility] rs 40 mg 1-16 tablet by [facility] of tablet 00:00: mouth in [place] the Medical morning. Branch proMETHazin 2022-0 Yes 12.5mg Take 1 Un tabitha e 12.5 mg 1-16 tablet by [facility] o f tablet 00:00: mouth as [place] 00 needed. [facility] amitriptyli 2022-0 Yes 25mg Take 1 [facility] ne 25 mg 1-16 tablet by [facility] of tablet 00:00: mouth at [place] 00 bedtime. [facility] citalopram 2022-0 Yes 40mg Take 1 [facility] rs 40 mg 1-16 tablet by [facility] of tablet 00:00: mouth in [place] the Medical morning. Branch proMETHazin 2022-0 Yes 12.5mg Take 1 Un tabitha e 12.5 mg 1-16 tablet by [facility] o f tablet 00:00: mouth as [place] needed. [facility] amitriptyli 2022-0 Yes 25mg Take 1 [facility] ne 25 mg 1-16 tablet by [facility] of tablet 00:00: mouth at [place] 00 bedtime. [facility] citalopram 2022-0 Yes 40mg Take 1 [facility] rs 40 mg 1-16 tablet by [facility] of tablet 00:00: mouth in [place] the Medical morning. Branch proMETHazin 2022-0 Yes 12.5mg Take 1 Un tabitha e 12.5 mg 1-16 tablet by [facility] o f tablet 00:00: mouth as [place] needed. [facility] amitriptyli 3-0 Yes 25mg Take 1 [facility] ne 25 mg 1-16 tablet by [facility] of tablet 00:00: mouth at [place] 00 bedtime. [facility] citalopram 2022-0 Yes 40mg Take 1 [facility] rs 40 mg 1-16 tablet by [facility] of tablet 00:00: mouth in [place] the Medical morning. Branch proMETHazin 3-0 Yes 12.5mg Take 1 Un tabitha e 12.5 mg 1-16 tablet by ity o f tablet 00:00: mouth as [place] 00 needed. [facility] amitriptyli 3-0 Yes 25mg Take 1 [facility] ne 25 mg 1-16 tablet by [facility] of tablet 00:00: mouth at [place] bedtime. [facility] citalopram 2022-0 Yes 40mg Take 1 [facility] rs 40 mg 1-16 tablet by [facility] of tablet 00:00: mouth in [place] the Medical morning. Branch proMETHazin 2022-0 Yes 12.5mg Take 1 Un tabitha e 12.5 mg 1-16 tablet by it[facility] o f tablet 00:00: mouth as [place] 00 needed. [facility] amitriptyli 2022-0 Yes 25mg Take 1 [facility] ne 25 mg 1-16 tablet by [facility] of tablet 00:00: mouth at [place] 00 bedtime. [facility] citalopram 2022-0 Yes 40mg Take 1 [facility] rs 40 mg 1-16 tablet by [facility] of tablet 00:00: mouth in [place] the Medical morning. Branch proMETHazin 2022-0 Yes 12.5mg Take 1 Un tabitha e 12.5 mg 1-16 tablet by [facility] o f tablet 00:00: mouth as [place] needed. [facility] amitriptyli 2022-0 Yes 25mg Take 1 [facility] ne 25 mg 1-16 tablet by [facility] of tablet 00:00: mouth at [place] 00 bedtime. [facility] citalopram 2022-0 Yes 40mg Take 1 [facility] rs 40 mg 1-16 tablet by [facility] of tablet 00:00: mouth in [place] the Medical morning. Branch proMETHazin 2022-0 Yes 12.5mg Take 1 Un tabitha e 12.5 mg 1-16 tablet by ity o f tablet 00:00: mouth as [place] needed. [facility] amitriptyli 3-0 Yes 25mg Take 1 [facility] ne 25 mg 1-16 tablet by [facility] of tablet 00:00: mouth at [place] 00 bedtime. [facility] citalopram 2022-0 Yes 40mg Take 1 [facility] rs 40 mg 1-16 tablet by [facility] of tablet 00:00: mouth in [place] the Medical morning. Branch proMETHazin 3-0 Yes 12.5mg Take 1 Un tabitha e 12.5 mg 1-16 tablet by [facility] o f tablet 00:00: mouth as [place] 00 needed. [facility] amitriptyli 3-0 Yes 25mg Take 1 [facility] ne 25 mg 1-16 tablet by [facility] of tablet 00:00: mouth at [place] bedtime. [facility] citalopram 2022-0 Yes 40mg Take 1 [facility] rs 40 mg 1-16 tablet by [facility] of tablet 00:00: mouth in [place] the Medical morning. Branch proMETHazin 2022-0 Yes 12.5mg Take 1 Un tabitha e 12.5 mg 1-16 tablet by [facility] o f tablet 00:00: mouth as [place] 00 needed. [facility] amitriptyli 2022-0 Yes 25mg Take 1 [facility] ne 25 mg 1-16 tablet by [facility] of tablet 00:00: mouth at [place] 00 bedtime. [facility] citalopram 2022-0 Yes 40mg Take 1 [facility] rs 40 mg 1-16 tablet by [facility] of tablet 00:00: mouth in [place] the Medical morning. Branch proMETHazin 2022-0 Yes 12.5mg Take 1 Un tabitha e 12.5 mg 1-16 tablet by [facility] o f tablet 00:00: mouth as [place] needed. [facility] amitriptyli 2022-0 Yes 25mg Take 1 [facility] ne 25 mg 1-16 tablet by [facility] of tablet 00:00: mouth at [place] 00 bedtime. [facility] citalopram 2022-0 Yes 40mg Take 1 [facility] rs 40 mg 1-16 tablet by [facility] of tablet 00:00: mouth in [place] the Medical morning. Branch proMETHazin 2022-0 Yes 12.5mg Take 1 Un tabitha e 12.5 mg 1-16 tablet by [facility] o f tablet 00:00: mouth as [place] needed. [facility] amitriptyli 3-0 Yes 25mg Take 1 [facility] ne 25 mg 1-16 tablet by [facility] of tablet 00:00: mouth at [place] 00 bedtime. [facility] citalopram 2022-0 Yes 40mg Take 1 [facility] rs 40 mg 1-16 tablet by [facility] of tablet 00:00: mouth in [place] the Medical morning. Branch proMETHazin 3-0 Yes 12.5mg Take 1 Un tabitha e 12.5 mg 1-16 tablet by [facility] o f tablet 00:00: mouth as [place] 00 needed. [facility] amitriptyli 3-0 Yes 25mg Take 1 [facility] ne 25 mg 1-16 tablet by [facility] of tablet 00:00: mouth at [place] bedtime. [facility] citalopram 2022-0 Yes 40mg Take 1 [facility] rs 40 mg 1-16 tablet by [facility] of tablet 00:00: mouth in [place] the Medical morning. Branch proMETHazin 2022-0 Yes 12.5mg Take 1 Un tabitha e 12.5 mg 1-16 tablet by [facility] o f tablet 00:00: mouth as [place] 00 needed. [facility] amitriptyli 2022-0 Yes 25mg Take 1 [facility] ne 25 mg 1-16 tablet by [facility] of tablet 00:00: mouth at [place] 00 bedtime. [facility] citalopram 2022-0 Yes 40mg Take 1 [facility] rs 40 mg 1-16 tablet by [facility] of tablet 00:00: mouth in [place] the Medical morning. Branch proMETHazin 2022-0 Yes 12.5mg Take 1 Un tabitha e 12.5 mg 1-16 tablet by [facility] o f tablet 00:00: mouth as [place] needed. [facility] amitriptyli 2022-0 Yes 25mg Take 1 [facility] ne 25 mg 1-16 tablet by [facility] of tablet 00:00: mouth at [place] 00 bedtime. [facility] citalopram 2022-0 Yes 40mg Take 1 [facility] rs 40 mg 1-16 tablet by [facility] of tablet 00:00: mouth in [place] the Medical morning. Branch proMETHazin 2022-0 Yes 12.5mg Take 1 Un tabitha e 12.5 mg 1-16 tablet by [facility] o f tablet 00:00: mouth as [place] needed. [facility] amitriptyli 3-0 Yes 25mg Take 1 [facility] ne 25 mg 1-16 tablet by [facility] of tablet 00:00: mouth at [place] 00 bedtime. Medical Branch citalopram 2022-0 Yes 40mg Take 1 Unive rs 40 mg 1-16 tablet by ity of tablet 00:00: mouth in [place] the Medical morning. Branch proMETHazin 3-0 Yes 12.5mg Take 1 Un tabitha e 12.5 mg 1-16 tablet by ity o f tablet 00:00: mouth as [place] 00 needed. Medical Branch amitriptyli 3-0 Yes 25mg Take 1 Univ ers ne 25 mg 1-16 tablet by ity of tablet 00:00: mouth at [place] bedtime. Medical Branch citalopram 2022-0 Yes 40mg Take 1 Unive rs 40 mg 1-16 tablet by ity of tablet 00:00: mouth in [place] the Medical morning. Branch proMETHazin 2022-0 Yes 12.5mg Take 1 Un tabitha e 12.5 mg 1-16 tablet by ity o f tablet 00:00: mouth as [place] 00 needed. Medical Branch amitriptyli 2022-0 Yes 25mg Take 1 Univ ers ne 25 mg 1-16 tablet by ity of tablet 00:00: mouth at [place] 00 bedtime. Medical Branch citalopram 2022-0 Yes 40mg Take 1 Unive rs 40 mg 1-16 tablet by ity of tablet 00:00: mouth in [place] the Medical morning. Branch proMETHazin 2022-0 Yes 12.5mg Take 1 Un tabitha e 12.5 mg 1-16 tablet by ity o f tablet 00:00: mouth as [place] needed. Medical Branch amitriptyli 2022-0 Yes 25mg Take 1 Univ ers ne 25 mg 1-16 tablet by ity of tablet 00:00: mouth at [place] 00 bedtime. Medical Branch citalopram 2022-0 Yes 40mg Take 1 Unive rs 40 mg 1-16 tablet by ity of tablet 00:00: mouth in [place] the Medical morning. Branch proMETHazin 2022-0 Yes 12.5mg Take 1 Un tabitha e 12.5 mg 1-16 tablet by ity o f tablet 00:00: mouth as [place] needed. Medical Branch amitriptyli 3-0 Yes 25mg Take 1 Univ ers ne 25 mg 1-16 tablet by ity of tablet 00:00: mouth at [place] 00 bedtime. Medical Branch citalopram 2022-0 Yes 40mg Take 1 Unive rs 40 mg 1-16 tablet by ity of tablet 00:00: mouth in [place] the Medical morning. Branch proMETHazin 3-0 Yes 12.5mg Take 1 Un tabitha e 12.5 mg 1-16 tablet by ity o f tablet 00:00: mouth as [place] 00 needed. Medical Branch amitriptyli 3-0 Yes 25mg Take 1 Univ ers ne 25 mg 1-16 tablet by ity of tablet 00:00: mouth at [place] bedtime. Medical Branch citalopram 2022-0 Yes 40mg Take 1 Unive rs 40 mg 1-16 tablet by ity of tablet 00:00: mouth in [place] the Medical morning. Branch proMETHazin 2022-0 Yes 12.5mg Take 1 Un tabitha e 12.5 mg 1-16 tablet by ity o f tablet 00:00: mouth as [place] 00 needed. Medical Branch amitriptyli 2022-0 Yes 25mg Take 1 Univ ers ne 25 mg 1-16 tablet by ity of tablet 00:00: mouth at [place] 00 bedtime. Medical Branch citalopram 2022-0 Yes 40mg Take 1 Unive rs 40 mg 1-16 tablet by ity of tablet 00:00: mouth in [place] the Medical morning. Branch proMETHazin 2022-0 Yes 12.5mg Take 1 Un tabitha e 12.5 mg 1-16 tablet by ity o f tablet 00:00: mouth as [place] needed. Medical Branch amitriptyli 2022-0 Yes 25mg Take 1 Univ ers ne 25 mg 1-16 tablet by ity of tablet 00:00: mouth at [place] 00 bedtime. Medical Branch citalopram 2022-0 Yes 40mg Take 1 Unive rs 40 mg 1-16 tablet by ity of tablet 00:00: mouth in [place] the Medical morning. Branch proMETHazin 2022-0 Yes 12.5mg Take 1 Un tabitha e 12.5 mg 1-16 tablet by ity o f tablet 00:00: mouth as [place] needed. Medical Branch amitriptyli 3-0 Yes 25mg Take 1 Univ ers ne 25 mg 1-16 tablet by ity of tablet 00:00: mouth at [place] 00 bedtime. Medical Branch citalopram 2022-0 Yes 40mg Take 1 Unive rs 40 mg 1-16 tablet by ity of tablet 00:00: mouth in [place] the Medical morning. Branch proMETHazin 3-0 Yes 12.5mg Take 1 Un tabitha e 12.5 mg 1-16 tablet by ity o f tablet 00:00: mouth as [place] 00 needed. Medical Branch amitriptyli 3-0 Yes 25mg Take 1 Univ ers ne 25 mg 1-16 tablet by ity of tablet 00:00: mouth at [place] bedtime. Medical Branch citalopram 2022-0 Yes 40mg Take 1 Unive rs 40 mg 1-16 tablet by ity of tablet 00:00: mouth in [place] the Medical morning. Branch proMETHazin 2022-0 Yes 12.5mg Take 1 Un tabitha e 12.5 mg 1-16 tablet by ity o f tablet 00:00: mouth as [place] 00 needed. Medical Branch amitriptyli 2022-0 Yes 25mg Take 1 Univ ers ne 25 mg 1-16 tablet by ity of tablet 00:00: mouth at [place] 00 bedtime. Medical Branch citalopram 2022-0 Yes 40mg Take 1 Unive rs 40 mg 1-16 tablet by ity of tablet 00:00: mouth in [place] the Medical morning. Branch proMETHazin 2022-0 Yes 12.5mg Take 1 Un tabitha e 12.5 mg 1-16 tablet by ity o f tablet 00:00: mouth as [place] needed. Medical Branch amitriptyli 2022-0 Yes 25mg Take 1 Univ ers ne 25 mg 1-16 tablet by ity of tablet 00:00: mouth at [place] 00 bedtime. Medical Branch citalopram 2022-0 Yes 40mg Take 1 Unive rs 40 mg 1-16 tablet by ity of tablet 00:00: mouth in [place] the Medical morning. Branch proMETHazin 2022-0 Yes 12.5mg Take 1 Un tabitha e 12.5 mg 1-16 tablet by ity o f tablet 00:00: mouth as [place] needed. Medical Branch amitriptyli 3-0 Yes 25mg Take 1 Univ ers ne 25 mg 1-16 tablet by ity of tablet 00:00: mouth at [place] 00 bedtime. Medical Branch citalopram 2022-0 Yes 40mg Take 1 Unive rs 40 mg 1-16 tablet by ity of tablet 00:00: mouth in [place] the Medical morning. Branch proMETHazin 3-0 Yes 12.5mg Take 1 Un tabitha e 12.5 mg 1-16 tablet by ity o f tablet 00:00: mouth as [place] 00 needed. Medical Branch amitriptyli 3-0 Yes 25mg Take 1 Univ ers ne 25 mg 1-16 tablet by ity of tablet 00:00: mouth at [place] 00 bedtime. Medical Branch citalopram Yes 40mg Take 1 Unive rs 40 mg 1-16 tablet by ity of tablet 00:00: mouth in [place] 00 the Medical morning. Branch proMETHazin Yes 12.5mg Take 1 Un tabitha e 12.5 mg 1-16 tablet by ity o f tablet 00:00: mouth as [place] 00 needed. Medical Branch amitriptyli 0 Yes 25mg Take 1 Univ ers ne 25 mg 1-16 tablet by ity of tablet 00:00: mouth at [place] 00 bedtime. Medical Branch citalopram Yes 40mg Take 1 Unive rs 40 mg 1-16 tablet by ity of tablet 00:00: mouth in [place] 00 the Medical morning. Branch proMETHazin Yes 12.5mg Take 1 Un tabitha e 12.5 mg 1-16 tablet by ity o f tablet 00:00: mouth as [place] 00 needed. Medical Branch furosemide 2021-02 Yes 40mg 40 mg, Unive rs (LASIX) 1-18 Oral, ity of tablet 40 15:00: DAILY, [place] mg 00 First dose Medical on Fri Branch 12/31/21 at 0900, Until Discontinu ed, Routine furosemide 2021-02- No [id number] 40mg Take 1 Univers 40 mg 1-18 12-19 tablet by ity of tablet 00:00: 05:59 mouth in [place] 00 :00 the Medical morning Branch for 30 days. furosemide 2021-02- No [id number] 40mg Take 1 Univers 40 mg 1-18 12-19 tablet by ity of tablet 00:00: 05:59 mouth in [place] 00 :00 the Medical morning Branch for 30 days. furosemide 2021-02- No [id number] 40mg Take 1 Univers 40 mg 1-18 12-19 tablet by ity of tablet 00:00: 05:59 mouth in [place] 00 :00 the Medical morning Branch for 30 days. furosemide 2021-02- No 40mg 40 mg, Univ ers (LASIX) -12-30 Slow IV ity of injection 20:00: 19:58 Push, [place] 40 mg 00 :00 ONCE, 1 Medical dose, On Branch [place] 12/30/21 at 1400, Routine sodium 2021-02- No [id number] Apply to [facility] hypochlorit 02-28 [id number] affected i ty of e 0.25% 00:00: 05:59 area(s) [place] solution 00 :00 daily for Medica l 30 days. Branch sodium 2021-02- No [id number] Apply to [facility] hypochlorit 02-28 [id number] affected i ty of e 0.25% 00:00: 05:59 area(s) [place] solution 00 :00 daily for Medica l 30 days. Branch sodium 2021-02- No [id number] Apply to [facility] hypochlorit 02-28 [id number] affected i ty of e 0.25% 00:00: 05:59 area(s) [place] solution 00 :00 daily for Medica l 30 days. Branch insulin 2021-02 Yes 35U 35 Units, Unive rs glargine 15 Subcutaneo ity o f (LANTUS 03:00: , [facility], [place] U-100) 00 First dose Medical injection (after Branch 35 Units last modificati on) on Mon12/27/21 at 2100, Until Discontinu ed, Routine metroNIDAZO 2021-02- No [id number] 500mg Take 1 Univers LE 500 mg 02-27 [id number] tablet by it y of tablet 00:00: 05:59 mouth [place] 00 :00 every 12 Medical (twelve) Branch hours for 30 days. ciprofloxac 2021-02- No [id number] 500mg Take 1 Univers in HCl 500 02-27 [id number] tablet by i ty of mg tablet 00:00: 05:59 mouth [place] 00 :00 every 12 Medical (twelve) Branch hours for 30 days. tamsulosin 2021-02- No [id number] .4mg Take 1 Univers 0.4 mg 24 02-27 [id number] capsule by i ty of hr capsule 00:00: 05:59 mouth in [place] 00 :00 the Medical morning Branch for 30 days. docusate 2021-02- No [id number] 100mg Take 1 Univers 100 mg 02-27 [id number] capsule by ity of capsule 00:00: 05:59 mouth in [place] 00 :00 the [facility] Branch for 30 days. metroNIDAZO 2021-02- No [id number] 500mg Take 1 Univers LE 500 mg 02-27 [id number] tablet by it y of tablet 00:00: 05:59 mouth [place] 00 :00 every 12 [facility] ([facility]) Branch hours for 30 days. ciprofloxac 2021-02- No [id number] 500mg Take 1 Univers in HCl 500 02-27 [id number] tablet by i ty of mg tablet 00:00: 05:59 mouth [place] 00 :00 every 12 [facility] ([facility]) Branch hours for 30 days. tamsulosin 2021-02- No [id number] .4mg Take 1 Univers 0.4 mg 24 02-27 [id number] capsule by i ty of hr capsule 00:00: 05:59 mouth in [facility] 00 :00 the [facility] for 30 days. docusate 2021-02- No [id number] 100mg Take 1 Univers 100 mg 02-27 [id number] capsule by ity of capsule 00:00: 05:59 mouth in [place] 00 :00 the [facility] for 30 days. metroNIDAZO 2021-02- No [id number] 500mg Take 1 Univers LE 500 mg 02-27 [id number] tablet by it y of tablet 00:00: 05:59 mouth [place] 00 :00 every 12 [facility] ([facility]) Branch hours for 30 days. ciprofloxac 2021-02- No [id number] 500mg Take 1 Univers in HCl 500 02-27 [id number] tablet by i ty of mg tablet 00:00: 05:59 mouth [place] 00 :00 every 12 [facility] ([facility]) Branch hours for 30 days. tamsulosin 2021-02- No [id number] .4mg Take 1 Univers 0.4 mg 24 02-27 [id number] capsule by i ty of hr capsule 00:00: 05:59 mouth in [place] 00 :00 the [facility] for 30 days. docusate 2021-02- No [id number] 100mg Take 1 Univers 100 mg 02-27 [id number] capsule by ity of capsule 00:00: 05:59 mouth in [place] 00 :00 the Medical morning Branch for 30 days. HYDROcodone 2021-02- No [id number] 1{tbl} Take 1 U nivers -acetaminop 02-27 tablet by it y of hen (NORCO) 00:00: 05:59 mouth [place] 5-325 mg 00 :00 every 6 Medical tablet (six) Branch hours as needed for Pain (scale 7-10) for up to 7 days. Indication s: acute pain HYDROcodone 2021-02- No [id number] 1{tbl} Take 1 U nivers -acetaminop 02-27 tablet by it y of hen (NORCO) 00:00: 05:59 mouth [place] 5-325 mg 00 :00 every 6 Medical tablet (six) Branch hours as needed for Pain (scale 7-10) for up to 7 days. Indication s: acute pain lactulose 2021-02 Yes 45mL 45 mL, Univer s (CEPHULAC) 1-14 Oral, ity of solution 45 15:00: DAILY, [place] mL 00 First dose Medical on Mon Branch 12/27/21 at 0900, Until Discontinu ed, Routine ursodioL 2021-02 Yes 250mg 250 mg, Unive rs (SANCHEZ) 1-14 Oral, BID, ity of tablet 250 02:00: First dose [place] mg 00 on [facility] 12/26/21 Branch at 1999, Until Discontinu ed, Routine metroNIDAZO 2021-02- No 500mg 500 mg, U nivers LE (FLAGYL) 02-24 Oral, ity of tablet 500 02:00: 01:59 Q12H, 28 [place] mg 00 :00 doses, Medical First dose Branch on Mon12/24/21 at 1999, Last dose on Mon01/07/22 at 0800, Routine
Reason for Anti-Infec tive: Documented Infection< br>Documen ender Infection Site: Skin / Soft Tissue
Duration of Therapy: 14 days iopamidol 2021-02- No [id number] 50mL 50 mL, Univers (ISOVUE 02-23 [id number] Intravenou ity of 370-500 mL) 21:15: 20:15 s, ONCE, 1 [place] injection 00 :00 dose, On Medica l 50 mL Mon Branch 12/24/21 at 1515, Routine cefTRIAXone 2021-02 No 2000mg 2,000 mg, Univers (ROCEPHIN) 02-23 IV ity of 2,000 mg in 19:00: 20:28 [place], [place] NaCl 0.9% 00 :00 Q24H ABX, Medic al (NS) 100 mL 7 doses, Bran ch MINI-BAG First dose on Mon12/24/21 at 1300, Last dose on Mon12/30/21 at 1300, Administer over 30 Minutes, 100 mL
Reas on for Anti-Infec tive: Documented Infection< br>Documen ender Infection Site: Skin / Soft Tissue
Duration of Therapy: 7 days gadoteridol 2021-02 No [id number] .2mL/kg 22.2 mL Univers (PROHANCE-2 02-22 (0.2 mL/kg i ty of 0 mL) 17:15: 17:15 ?111 kg), [place] injection 00 :00 Intravenou Medi janis 22.2 mL s, ONCE, 1 Branch dose, On [place] 12/23/21 at 1115, Routine ceFEPIme 2021-02 No 1000mg 1,000 mg, U nivers (MAXIPIME) 02-22 IV ity of 1,000 mg in 03:00: 02:59 [facility], [place] NaCl 0.9% 00 :00 Q8H ABX, Medica l (NS) 50 mL 21 doses, Bran ch MINI-BAG First dose on Mon12/22/21 at 2100, Last dose on Mon12/29/21 at 1300, Administer over 4 Hours, 50 mL
Reas on for Anti-Infec tive: Documented Infection& lt;br>Docu mented Infection Site: Skin / Soft Tissue
Duration of Therapy: 7 days ceFEPIme 2021-02 No 1000mg 1,000 mg, U nivers (MAXIPIME) 02-22 IV ity of 1,000 mg in 03:00: 17:51 [place], [place] NaCl 0.9% 00 :33 Q8H ABX, Medica l (NS) 50 mL 21 doses, Bran ch MINI-BAG First dose on Mon12/22/21 at 2100, Last dose on Mon12/29/21 at 1300, Administer over 4 Hours, 50 mL
Reas on for Anti-Infec tive: Documented Infection& lt;br>Docu mented Infection Site: Skin / Soft Tissue
Duration of Therapy: 7 days vancomycin 2021-02 No 15mg/kg 1,500 mg Univers 1500 mg in 02-21 (rounded ity of NS 500 mL 19:00: 20:50 from [place] IV 00 :00 1,657.5 mg Medical [place] = 15 mg/kg Bran RTU 1,500 ?110.5 mg kg), IV [place], ONCE, 1 dose, On Mon12/22/21 at 1300, Administer over 90 Minutes, 500 mL
Reas on for Anti-Infec tive: Documented Infection& lt;br>Docu mented Infection Site: Skin / Soft Tissue
Duration of Therapy: 7 days ceFEPIme 2021-02- No 1000mg 1,000 mg, U nivers (MAXIPIME) 02-21 IV ity of 1,000 mg in 19:00: 19:34 [place], [place] NaCl 0.9% 00 :00 ONCE, 1 Medical (NS) 50 mL dose, On [facility] h MINI-BAG Mon12/22/21 at 1300, Administer over 30 Minutes, 50 mL
Reas on for Anti-Infec tive: Documented Infection< br>Documen ender Infection Site: Skin / Soft Tissue
Duration of Therapy: 7 days meclizine 2021-02 Yes 12.5mg 12.5 mg, Un tabitha (ANTIVERT) 02-21 Oral, ity of tablet 12.5 18:11: TIDPRN, [place] mg 18 Starting Medical on Mon Branch 12/22/21 at 1211, Until Discontinu ed, Routine, Dizziness meclizine 2021-02 Yes 12.5mg 12.5 mg, Un tabitha (ANTIVERT) 02-21 Oral, ity of tablet 12.5 18:11: TIDPRN, [place] mg 18 Starting Medical on Mon Branch 12/22/21 at 1211, Until Discontinu ed, Routine, Dizziness insulin 2022-1 2022- No 16U 16 Units, Univ ers lispro 02-21-09 Subcutaneo ity of (human) 18:07: 18:08 [place], ONCE, [place] (HumaLOG 00 :00 1 dose, On Medic al U-100) Mon Branch injection 12/22/21 at 16 Units 1215, Routine morpHINE (2 2021-02 Yes 2mg 2 mg, Slow Univers mg/mL) 1- IV Push, ity of injection 2 18:00: Q6HPRN, [place] mg 20 Starting Medical on Mon Branch 12/22/21 at 1200, Until Discontinu ed, Routine, Pain (scale 7-10) morpHINE (2 2021-02 Yes 2mg 2 mg, Slow Univers mg/mL) 1- IV Push, ity of injection 2 18:00: Q6HPRN, [place] mg 20 Starting Medical on Mon Branch 12/22/21 at 1200, Until Discontinu ed, Routine, Pain (scale 7-10) insulin 2021-02 Yes 15U 15 Units, Unive rs lispro 02-20 Subcutaneo ity of (human) 14:00: us, TID [place] (HumaLOG 00 MEALS, Medical U-100) First dose Branch injection (after 15 Units last modificati on) on Mon12/21/21 at 0800, Until Discontinu ed, Routine insulin 2021-02- No 15U 15 Units, Univ ers lispro 02-20- Subcutaneo ity of (human) 14:00: 23:54 us, TID [place] (HumaLOG 00 :49 MEALS, Medical U-100) First dose Branch injection (after 15 Units last modificati on) on Mon12/21/21 at 0800, Until Discontinu ed, Routine insulin 2021-02 Yes 40U 40 Units, Unive rs glargine 02-20 Subcutaneo ity o f (LANTUS 03:00: us, Q, [place] U-100) 00 First dose Medical injection (after Branch 40 Units last modificati on) on Mon12/20/21 at 2100, Until Discontinu ed, Routine insulin 2021-02- No 40U 40 Units, Univ ers glargine 02-20- Subcutaneo ity of (LANTUS 03:00: 23:54 us, [facility], [place] U-100) 00 :49 First dose Medical injection (after Branch 40 Units last modificati on) on Mon12/20/21 at 2100, Until Discontinu ed, Routine Sliding 2021-02 Yes [facility] ers Scale 1-07 us, TID ity of Insulin - 23:00: MEALS+HS, [place] Lispro 00 First dose Medical (HumaLOG) + on Mon [facility] 12/20/21 at Testing 1700, Until Discontinu ed, Routine Sliding 2021-02 Yes [facility] ers Scale 1-07 us, TID ity of Insulin - 23:00: MEALS+HS, [place] Lispro 00 First dose Medical [facility]HumaLOG[facility] Testing 1700, Until Discontinu ed, Routine dextrose 2021-02 Yes 250mL 250 mL, IV Un tabitha 10% (D10W) 1-07 Infusion, ity of bolus 22:56: PRN - SEE [place] infusion 36 INSTRUCTIO Medic al 250 mL NS, Branch Administer over 60 Minutes, Other, If blood glucose is < or = 70 mg/dL and patient is unable to swallow or has mental status changes, Starting on Mon12/20/21 at 1656
If blood glucose is < or = 70 mg/dL and patient is unable to swallow or has mental status changes (Give glucagon order if patient needs fluid restrictio n): IF IV access available: Dextrose 10%. 1. 125 mL (? bag) of D10W IV infusion - equivalent to 12.5 g dextrose 2. Blood glucose - draw blood glucose 15 minutes after D10W Administra tion. 3. If blood glucose is < 80 mg/dL, repeat.
dextrose 2021-02 Yes 250mL 250 mL, IV Un tabitha 10% (D10W) 1-07 Infusion, ity of bolus 22:56: PRN - SEE [place] infusion 36 INSTRUCTIO Medic al 250 mL NS, Branch Administer over 60 Minutes, Other, If blood glucose is < or = 70 mg/dL and patient is unable to swallow or has mental status changes, Starting on 11/7/22 at 1656
If blood glucose is < or = 70 mg/dL and patient is unable to swallow or has mental status changes (Give glucagon order if patient needs fluid restrictio n): IF IV access available: Dextrose 10%. 1. 125 mL (? bag) of D10W IV infusion - equivalent to 12.5 g dextrose 2. Blood glucose - draw blood glucose 15 minutes after D10W Administra tion. 3. If blood glucose is < 80 mg/dL, repeat.
glucagon 2021-02 Yes 1mg 1 mg, Univers (GLUCAGEN 1-07 Intramuscu ity of DIAGNOSTIC 22:56: lar, PRN, [place] KIT) 33 Starting Medical injection 1 on Mon [place] mg 12/20/21 at 1656, Until Discontinu ed, MALI, Blood Glucose < or = 70 mg/dL and patient is unable to swallow or has mental changes. glucagon 2021-02 Yes 1mg 1 mg, Univers (GLUCAGEN 1-07 Intramuscu ity of DIAGNOSTIC 22:56: lar, PRN, [place] KIT) 33 Starting Medical injection 1 on Mon [place] mg 12/20/21 at 1656, Until Discontinu ed, MALI, Blood Glucose < or = 70 mg/dL and patient is unable to swallow or has mental changes. sodium 2021-02 Yes Topical Univers hypochlorit 1-06 (Apply To ity of e 0.25% 20:15: Affected [place] ([facility] 00 Areas), Medical SOLUTION) DAILY, Branch solution First dose on 12/19/21 at 1415, Until Discontinu ed, Routine sodium 2021-02 Yes Topical Univers hypochlorit 1-06 (Apply To ity of e 0.25% 20:15: Affected [place] ([facility] Areas), Medical SOLUTION) DAILY, Branch solution First dose on 12/19/21 at 1415, Until Discontinu ed, Routine hydroCHLORO 2021-02 Yes 12.5mg 12.5 mg, Univers thiazide 1-06 Oral, ity of (ESIDRIX) 15:00: DAILY, [place] capsule 00 First dose Medica l 12.5 mg on Sun Branch 12/19/21 at 0900, Until Discontinu ed, Routine tamsulosin 2021-02 Yes .4mg 0.4 mg, Univ ers (FLOMAX) 1-06 Oral, ity of capsule 0.4 15:00: DAILY, [place] mg 00 First dose Medical on [facility] 12/19/21 at 0900, Until Discontinu ed, Routine citalopram 2021-02 Yes 40mg 40 mg, Unive rs (CELEXA) 1-06 Oral, ity of tablet 40 15:00: DAILY, [place] mg 00 First dose Medical on [facility] 12/19/21 at 0900, Until Discontinu ed, Routine aspirin 2021-02 Yes 81mg 81 mg, Univers chewable 1-06 Oral, ity of tablet 81 15:00: DAILY, [place] mg 00 First dose Medical on [facility] 12/19/21 at 0900, Until Discontinu ed, Routine hydroCHLORO 2021-02 Yes 12.5mg 12.5 mg, Univers thiazide 06 Oral, ity of (ESIDRIX) 15:00: DAILY, [place] capsule 00 First dose Medica l 12.5 mg on [facility] 12/19/21 at 0900, Until Discontinu ed, Routine tamsulosin 2021-02 Yes .4mg 0.4 mg, Univ ers (FLOMAX) 1-06 Oral, ity of capsule 0.4 15:00: DAILY, [place] mg 00 First dose Medical on [facility] 12/19/21 at 0900, Until Discontinu ed, Routine citalopram 2021-02 Yes 40mg 40 mg, Unive rs (CELEXA) 1-06 Oral, ity of tablet 40 15:00: DAILY, [place] mg 00 First dose Medical on [facility] 12/19/21 at 0900, Until Discontinu ed, Routine aspirin 2021-02 Yes 81mg 81 mg, Univers chewable 1-06 Oral, ity of tablet 81 15:00: DAILY, [place] mg 00 First dose Medical on [facility] 12/19/21 at 0900, Until Discontinu ed, Routine atorvastati 2021-02 Yes 80mg 80 mg, Univ ers n (LIPITOR) 1-06 Oral, QHS, it y of tablet 80 02:00: First dose [place] mg 00 on [facility] 12/18/21 at Branch 2100, Until Discontinu ed, Routine atorvastati 2021-02 Yes 80mg 80 mg, Univ ers n (LIPITOR) 106 Oral, QHS, it y of tablet 80 02:00: First dose [place] mg 00 on Sat Medical 12/18/21 at Branch 2100, Until Discontinu ed, Routine insulin 2021-02- No 35U 35 Units, Univ ers glargine 02-1807 Subcutaneo ity of (LANTUS 02:00: 22:57 us, HS, [place] U-100) 00 :23 First dose Medical injection (after Branch 35 Units last modificati on) on 12/18/21 at 2100, Until Discontinu ed, Routine metoprolol 2021-02 Yes 25mg 25 mg, Unive rs tartrate -06 Oral, BID, ity o f (LOPRESSOR) 01:00: First dose [place] tablet 25 00 on Sat Medical mg 12/18/21 at Branch 2000, Until Discontinu ed, Routine metoprolol 2021-02 Yes 25mg 25 mg, Unive rs tartrate -06 Oral, BID, ity o f (LOPRESSOR) 01:00: First dose [place] tablet 25 00 on Sat Medical mg 12/18/21 at Branch 2000, Until Discontinu ed, Routine amoxicillin 2021-02- No 1{tbl} 1 tablet, Univers -clavulanat 02-18 Oral, BID, i ty of e 01:00: 18:07 56 doses, [place] (AUGMENTIN) 00 :38 First dose Me dical 875-125 mg on [facility] Branch per tablet 12/18/21 at 1 tablet 1999, Last dose on 01/15/22 at 0800, Routine
Reason for Anti-Infec tive: Documented Infection< br>Documen ender Infection Site: Skin / Soft Tissue
Duration of Therapy: Other (see Comments) traMADoL 2021-02 Yes 50mg 50 mg, Univers (ULTRAM) 1-06 Oral, ity of tablet 50 00:52: Q6HPRN, [place] mg 28 Starting Medical on Sat Branch 12/18/21 at 1952, Until Discontinu ed, Routine, Pain (scale 4-6) traMADoL 2021-02 Yes 50mg 50 mg, Univers (ULTRAM) 1-06 Oral, ity of tablet 50 00:52: Q6HPRN, [place] mg 28 Starting Medical on [facility] Branch 12/18/21 at 1952, Until Discontinu ed, Routine, Pain (scale 4-6) enoxaparin 2021-02 Yes 40mg 40 mg, Unive rs (LOVENOX) 1-05 Subcutaneo ity of injection 22:00: us, DAILY, [place] 40 mg 00 First dose Medical on [facility] Branch 12/18/21 at 1700, Until Discontinu ed, Routine enoxaparin 2021-02 Yes 40mg 40 mg, Unive rs (LOVENOX) -05 Subcutaneo ity of injection 22:00: us, DAILY, [place] 40 mg 00 First dose Medical on [facility] Branch 12/18/21 at 1700, Until Discontinu ed, Routine insulin 2021-02- No 10U 10 Units, Univ ers lispro 02-17 Subcutaneo ity of (human) 22:00: 13:28 us, TID [place] (HumaLOG 00 :42 MEALS, Medical U-100) First dose Branch injection (after 10 Units last modificati on) on [facility] 12/18/21 at 1700, Until Discontinu ed, Routine Sliding 2021-02- No Subcutaneo Uni vers Scale 02-1707 us, TID ity of Insulin - 22:00: 22:57 MEALS+HS, [place] Lispro 00 :22 First dose Medical (HumaLOG) + (after Branch Fs[facility] last Testing modificati on) on [facility] 12/18/21 at 1700, Until Discontinu ed, Routine ondansetron 2021-02 Yes 4mg 4 mg, Slow Univers (ZOFRAN 1-05 IV Push, ity of (PF)) 21:25: Q6HPRN, [place] injection 4 22 Starting Medi janis mg on [facility] Branch 12/18/21 at 1625, Until Discontinu ed, Routine, Nausea and Vomiting (N/V) ondansetron 2021-02 Yes 4mg 4 mg, Slow Univers (ZOFRAN 1-05 IV Push, ity of (PF)) 21:25: Q6HPRN, [place] injection 4 22 Starting Medi ajnis mg on [facility] Branch 12/18/21 at 1625, Until Discontinu ed, Routine, Nausea and Vomiting (N/V) acetaminoph 2021-02 Yes 650mg 650 mg, Un tabitha en 1-05 Oral, ity of (TYLENOL) 21:25: Q6HPRN, [place] tablet 650 14 Starting Medic al mg on [facility] Branch 12/18/21 at 1625, Until Discontinu ed, Routine, Pain (scale 1-3) acetaminoph 2021-02 Yes 650mg 650 mg, Un tabitha en 1-05 Oral, ity of (TYLENOL) 21:25: Q6HPRN, [place] tablet 650 14 Starting Medic al mg on [facility] Branch 12/18/21 at 1625, Until Discontinu ed, Routine, Pain (scale 1-3) atorvastati 2021-02 Yes 80mg 80 mg, Univ ers n (LIPITOR) 1-05 Oral, QHS, it y of tablet 80 02:00: First dose [place] mg 00 (after Medical last Branch modificati on) on Mon12/17/21 at 2100, Until Discontinu ed, Routine metoprolol 2021-02 Yes 25mg 25 mg, Unive rs tartrate 1-05 Oral, BID, ity o f (LOPRESSOR) 01:00: First dose [place] tablet 25 00 (after Medical mg last Branch modificati on) on Mon12/17/21 at 2000, Until Discontinu ed, Routine aspirin 81 2021-02- No [id number] 81mg Take 1 Univers mg chewable 02-17- tablet by it y of tablet 00:00: 05:59 mouth in [place] 00 :00 [facility] for 30 days. aspirin 81 2021-02- No [id number] 81mg Take 1 Univers mg chewable 02-17- tablet by it y of tablet 00:00: 05:59 mouth in [place] 00 :00 [facility] for 30 days. aspirin 81 2021-02- No [id number] 81mg Take 1 Univers mg chewable 02-17- tablet by it y of tablet 00:00: 05:59 mouth in [place] 00 :00 [facility] for 30 days. aspirin 81 2021-02- No [id number] 81mg Take 1 Univers mg chewable 02-17- tablet by it y of tablet 00:00: 05:59 mouth in [place] 00 :00 [facility] for 30 days. aspirin 81 2021-02- No [id number] 81mg Take 1 Univers mg chewable 02-17 tablet by it y of tablet 00:00: 05:59 mouth in [place] 00 :00 [facility] for 30 days. aspirin 81 2021-02 No [id number] 81mg Take 1 Univers mg chewable 02-17 tablet by it y of tablet 00:00: 05:59 mouth in [place] 00 :00 [facility] for 30 days. tc 2021-02 No [id number] 45.1mCi 45.1 Unive rs 99m-tetrofo 02-16 millicurie i ty of smin 20:30: 18:50 , [place] ([facility]) 00 :00 Intravenou Medi janis injection s, ONCE, 1 Bran ch 45.1 dose, On [facility] 12/17/21 at 1530, Routine tc 2021-02 No [id number] 15.3mCi 15.3 Unive rs 99m-tetrofo 02-16 millicurie i ty of smin 18:30: 17:30 , [place] ([facility]) 00 :00 Intravenou Medi janis injection s, ONCE, 1 Bran ch 15.3 dose, On [facility] 12/17/21 at 1330, Routine regadenoson 2021-02 No [id number] .4mg 0.4 mg, IV Univers (LEXISCAN) 02-16 Push, ity of injection 17:30: 17:30 ONCE, 1 [place] 0.4 mg 00 :00 dose, On [facility] 12/17/21 at 1230, Routine
member of congress approving Restricted medication : CONG LOPEZ atorvastati 2021-02- No 40mg 40 mg, Uni vers n (LIPITOR) 02-16 Oral, QHS, i ty of tablet 40 02:00: 17:58 First dose [place] mg 00 :50 on [facility] 12/16/21 at Branch 2100, Until Discontinu ed, Routine atorvastati 2021-02- No [id number] 80mg Take 1 Univers n 80 mg 02-16 tablet by ity of tablet 00:00: 05:59 mouth at [place] 00 :00 bedtime Medical for 30 Branch days. metoprolol 2021-02- No [id number] 25mg Take 1 Univers tartrate 25 02-16 tablet by it y of mg tablet 00:00: 05:59 mouth in [place] 00 :00 the Medical morning Branch and 1 tablet in the evening. Do all this for 30 days. atorvastati 2021-02- No [id number] 80mg Take 1 Univers n 80 mg 02-16 tablet by ity of tablet 00:00: 05:59 mouth at [place] 00 :00 bedtime Medical for 30 Branch days. metoprolol 2021-02- No [id number] 25mg Take 1 Univers tartrate 25 02-16 tablet by it y of mg tablet 00:00: 05:59 mouth in [place] 00 :00 the Medical morning Branch and 1 tablet in the evening. Do all this for 30 days. atorvastati 2021-02- No [id number] 80mg Take 1 Univers n 80 mg 02-16 tablet by ity of tablet 00:00: 05:59 mouth at [place] 00 :00 bedtime Medical for 30 Branch days. metoprolol 2021-02- No [id number] 25mg Take 1 Univers tartrate 25 02-16 tablet by it y of mg tablet 00:00: 05:59 mouth in [place] 00 :00 the Medical morning Branch and 1 tablet in the evening. Do all this for 30 days. atorvastati 2021-02- No [id number] 80mg Take 1 Univers n 80 mg 02-16 tablet by ity of tablet 00:00: 05:59 mouth at [place] 00 :00 bedtime Medical for 30 Branch days. metoprolol 2021-02- No [id number] 25mg Take 1 Univers tartrate 25 02-16 tablet by it y of mg tablet 00:00: 05:59 mouth in [place] 00 :00 the Medical morning Branch and 1 tablet in the evening. Do all this for 30 days. atorvastati 2021-02- No [id number] 80mg Take 1 Univers n 80 mg 02-16 tablet by ity of tablet 00:00: 05:59 mouth at [place] 00 :00 bedtime Medical for 30 Branch days. metoprolol 2021-02- No [id number] 25mg Take 1 Univers tartrate 25 02-16 tablet by it y of mg tablet 00:00: 05:59 mouth in [place] 00 :00 the Medical morning Branch and 1 tablet in the evening. Do all this for 30 days. atorvastati 2021-02- No [id number] 80mg Take 1 Univers n 80 mg 02-16 tablet by ity of tablet 00:00: 05:59 mouth at [place] 00 :00 bedtime Medical for 30 Branch days. metoprolol 2021-02- No [id number] 25mg Take 1 Univers tartrate 25 02-16 tablet by it y of mg tablet 00:00: 05:59 mouth in [place] 00 :00 the Medical morning Branch and 1 tablet in the evening. Do all this for 30 days. proCHLORper 2021-02 Yes 10mg 10 mg, [facility] [place] [facility] ers azine 02-15 Oral, ity of (COMPAZINE) 20:47: Q6HPRN, [place] tablet 10 53 Starting Medica l mg on [place] Branch 12/16/21 at 1547, Until Discontinu ed, Routine, N/V unresponsi ve to Ondansetro n sulfur 2021-02- No [id number] 5mL 5 mL, Univ ers hexafluorid 02-15 Intravenou i ty of e microsphr 14:30: 14:30 s, ONCE, 1 [place] (LUMASON) 00 :00 dose, On Medica l injection 5 [place] Branch mL 12/16/21 at 0930, Routine
member of congress approving Restricted medication : RODY CROWELL tamsulosin 2021-02 Yes .4mg 0.4 mg, Univ ers (FLOMAX) 02-15 Oral, ity of capsule 0.4 14:00: DAILY, [place] mg 00 First dose Medical on [place] [facility] 12/16/21 at 0900, Until Discontinu ed, Routine lactulose 2021-02 Yes 45mL 45 mL, Univer s (CEPHULAC) 02-15 Oral, ity of solution 45 14:00: DAILY, [place] mL 00 First dose Medical on [place] [facility] 12/16/21 at 0900, Until Discontinu ed, Routine citalopram 2021-02 Yes 40mg 40 mg, Unive rs (CELEXA) 02-15 Oral, ity of tablet 40 14:00: DAILY, [place] mg 00 First dose Medical on [place] [facility] 12/16/21 at 0900, Until Discontinu ed, Routine aspirin 2021-02 Yes 81mg 81 mg, Univers chewable 02-15 Oral, ity of tablet 81 14:00: DAILY, [place] mg 00 First dose Medical on [place] [facility] 12/16/21 at 0900, Until Discontinu ed, Routine enoxaparin 2021-02 Yes 40mg 40 mg, Unive rs (LOVENOX) 02-15 Subcutaneo ity of injection 14:00: us, DAILY, [place] 40 mg 00 First dose Medical on [place] [facility] 12/16/21 at 0900, Until Discontinu ed, Routine insulin 2021-02 Yes 10U 10 Units, Unive rs lispro 02-15 Subcutaneo ity of (human) 13:00: us, TID [place] (HumaLOG 00 MEALS, Medical U-100) First dose Branch injection on [place] 10 Units 12/16/21 at 0800, Until Discontinu ed, Routine docusate 2021-02 Yes 100mg 100 mg, Unive rs (COLACE) 02-15 Oral, BID, ity o f capsule 100 13:00: First dose [place] mg 00 on [facility] Medical 12/16/21 at Branch 0800, Until Discontinu ed, Routine Sliding 2021-02 Yes Subcutaneo Univ ers Scale 103 us, TID ity of Insulin - 13:00: MEALS+HS, [place] Lispro 00 First dose Medical (HumaLOG) + on [facility] Branch Fsbg 12/16/21 at Testing 0800, Until Discontinu ed, Routine piperacilli 2021-02 No 3.375g 3.375 g, Univers n-tazobacta 02-15 11-10 IV ity of m (ZOSYN) 13:00: 13:59 Piggyback, [place] 3.375 g in 00 :00 Q8H ABX, Medic al NaCl 0.9% 21 doses, Branc h (NS) 50 mL First dose MINI-BAG on [place] 12/16/21 at 0800, Last dose on Mon12/23/21 at 0000, Administer over 4 Hours, 50 mL
Reas on for Anti-Infec tive: Documented Infection& lt;br>Docu mented Infection Site: Skin / Soft Tissue
Duration of Therapy: 7 days metoprolol 2021-02 No 12.5mg 12.5 mg, Univers tartrate 02-15 Oral, BID, ity of (LOPRESSOR) 13:00: 18:00 First dose [place] tablet 12.5 00 :28 on [place] Medica l mg 12/16/21 at Branch 0800, Until Discontinu ed, Routine insulin 2021-02 Yes 35U 35 Units, Unive rs glargine 02-15 Subcutaneo ity o f (LANTUS 03:30: us, [facility], [place] U-100) 00 First dose Medical injection on Mon 35 Units 12/15/21 at 2230, Until Discontinu ed, Routine aspirin 2021-02 No 325mg 325 mg, Unive rs tablet 325 02-15 Oral, ity of mg 03:30: 05:08 ONCE, 1 [place] 00 :00 dose, On Medical Mon Branch 12/15/21 at 2230, Routine ondansetron 2021-02 Yes 4mg 4 mg, Slow Univers (ZOFRAN 02-15 IV Push, ity of (PF)) 03:18: Q6HPRN, [place] injection 4 11 Starting Medi janis mg on Mon Branch 12/15/21 at 2218, Until Discontinu ed, Routine, Nausea and Vomiting (N/V) morpHINE (4 2021-02 No 4mg 4 mg, Slow Univers mg/mL) 02-15 IV Push, ity of injection 4 03:18: 03:17 Q4HPRN, [place] mg 08 :08 Starting Medical on Mon Branch 12/15/21 at 2218, Until [place] 12/16/21 at 2217, Routine, Pain (scale 7-10) HYDROcodone 2021-02 No 1{tbl} 1 tablet, Univers -acetaminop 02-15 Oral, ity of hen (NORCO 03:18: 03:17 Q6HPRN, [place] 5) 5-325 mg 00 :00 Starting Medi janis tablet 1 on Mon Branch tablet 12/15/21 at 2218, Until Mon12/17/21 at 2217, Routine, Pain (scale 4-6) acetaminoph 2021-02 Yes 650mg 650 mg, Un tabitha en 02-15 Oral, ity of (TYLENOL) 03:17: Q6HPRN, [place] tablet 650 59 Starting Medic al mg on Mon Branch 12/15/21 at 2217, Until Discontinu ed, Routine, Pain (scale 1-3) glucagon 2021-02 Yes 1mg 1 mg, Univers (GLUCAGEN 02-15 Intramuscu ity of DIAGNOSTIC 03:15: lar, PRN, [place] KIT) 07 Starting Medical injection 1 on Mon Branch mg 12/15/21 at 2215, Until Discontinu ed, MALI, Blood Glucose < or = 70 mg/dL and patient is unable to swallow or has mental changes. dextrose 50 2021-02 Yes 25mL 25 mL, Univ ers % in water 02-15 Slow IV ity of (D50W) 03:15: Push, PRN, [place] injection 07 Starting Medica l 25 mL on Wed Branch 12/15/21 at 2215, Until Discontinu ed, MALI, Blood Glucose < or = 70 mg/dL and patient is unable to swallow or has mental status changes. insulin 2021-02- No 6U 6 Units, Unive rs regular 02-15 Slow IV ity of human 03:00: 02:56 Push, [place] (HUMULIN R) 00 :00 ONCE, 1 Medic al injection 6 dose, On Bran ch Units 12/15/21 at 2200, MALI
In dication for insulin: Hyperglyce tali piperacilli 2021-02- No 3.375g 3.375 g, Univers n-tazobacta 02-15 IV ity of m (ZOSYN) 02:30: 05:43 Piggyback, [place] 3.375 g in 00 :00 ONCE, 1 Medica l NaCl 0.9% dose, On Branch (NS) 50 mL Wed MINI-BAG 12/15/21 at 2130, Administer over 30 Minutes, 50 mL
R fide for Anti-Infec tive: Documented Infection< br>Documen ender Infection Site: Skin / Soft Tissue
Duration of Therapy: 7 days NaCl 0.9% 2021-02- No 500mL at 999 Univ ers (NS) bolus 02-15 1103 mL/hr, 500 it y of infusion 01:15: 02:59 mL, IV [place] 500 mL 00 :00 Infusion, Medical ONCE, 1 Branch dose, On Mon12/15/21 at 2015, MALI insulin 2021-02 Yes 40U 40 Units, Unive rs glargine 02-14 Subcutaneo ity o f (LANTUS 02:00: us, [facility], [place] U-100) 00 First dose Medical injection (after Branch 40 Units last modificati on) on Mon12/14/21 at 2100, Until Discontinu ed, Routine hydroCHLORO 2021-02- No [id number] 12.5mg Take 1 Univers thiazide 02-14 [id number] tablet by ity of 12.5 mg 00:00: 05:59 mouth in [place] tablet 00 :00 the [facility] for 30 days. hydroCHLORO 2021-02- No [id number] 12.5mg Take 1 Univers thiazide 02-14 [id number] tablet by ity of 12.5 mg 00:00: 05:59 mouth in [place] tablet 00 :00 the [facility] for 30 days. hydroCHLORO 2021-02- No [id number] 12.5mg Take 1 Univers thiazide 02-14 [id number] tablet by ity of 12.5 mg 00:00: 05:59 mouth in [place] tablet 00 :00 the [facility] for 30 days. hydroCHLORO 2021-02- No [id number] 12.5mg Take 1 Univers thiazide 02-14 [id number] tablet by ity of 12.5 mg 00:00: 05:59 mouth in [place] tablet 00 :00 the [facility] for 30 days. hydroCHLORO 2021-02- No [id number] 12.5mg Take 1 Univers thiazide 02-14 [id number] tablet by ity of 12.5 mg 00:00: 05:59 mouth in [place] tablet 00 :00 the Medical morning Branch for 30 days. hydroCHLORO 2021-02- No [id number] 12.5mg Take 1 Univers thiazide 02-14 [id number] tablet by ity of 12.5 mg 00:00: 05:59 mouth in [place] tablet 00 :00 the [facility] morning Branch for 30 days. enoxaparin 2021-02- No [id number] 40mg inject 0.4 Univers 40 mg/0.4 02-14 [id number] mL under ity of mL 00:00: 05:59 the skin [place] injection 00 :00 in the [facility] for 21 days. tamsulosin 2021-02- No [id number] .4mg Take 1 Univers 0.4 mg 24 02-14 [id number] capsule by i ty of hr capsule 00:00: 05:59 mouth in [place] 00 :00 the [facility] for 21 days. citalopram 2021-02- No [id number] 40mg Take 1 Univers 40 mg 02-14 [id number] tablet by ity of tablet 00:00: 05:59 mouth in [place] 00 :00 the [facility] morning Branch for 21 days. enoxaparin 2021-02- No [id number] 40mg inject 0.4 Univers 40 mg/0.4 02-14 [id number] mL under ity of mL 00:00: 05:59 the skin [place] injection 00 :00 in the [facility] for 21 days. tamsulosin 2021-02- No [id number] .4mg Take 1 Univers 0.4 mg 24 02-14 [id number] capsule by i ty of hr capsule 00:00: 05:59 mouth in [place] 00 :00 the [facility] morning [place] for 21 days. citalopram 2021-02- No [id number] 40mg Take 1 Univers 40 mg 02-14 [id number] tablet by ity of tablet 00:00: 05:59 mouth in [place] 00 :00 the [facility] morning Branch for 21 days. enoxaparin 2021-02- No [id number] 40mg inject 0.4 Univers 40 mg/0.4 02-14 [id number] mL under ity of mL 00:00: 05:59 the skin [place] injection 00 :00 in the [facility] morning Branch for 21 days. tamsulosin 2021-02- No [id number] .4mg Take 1 Univers 0.4 mg 24 02-14 [id number] capsule by i ty of hr capsule 00:00: 05:59 mouth in [place] 00 :00 the [facility] morning Branch for 21 days. citalopram 2021-02- No [id number] 40mg Take 1 Univers 40 mg 02-14 [id number] tablet by ity of tablet 00:00: 05:59 mouth in [place] 00 :00 the [facility] morning Branch for 21 days. enoxaparin 2021-02- No [id number] 40mg inject 0.4 Univers 40 mg/0.4 02-14 [id number] mL under ity of mL 00:00: 05:59 the skin [place] injection 00 :00 in the [facility] Branch for 21 days. tamsulosin 2021-02- No [id number] .4mg Take 1 Univers 0.4 mg 02-14 [id number] capsule by i ty of hr capsule 00:00: 05:59 mouth in [place] 00 :00 the [facility] morning Branch for 21 days. citalopram 2021-02- No [id number] 40mg Take 1 Univers 40 mg 02-14 [id number] tablet by ity of tablet 00:00: 05:59 mouth in [place] 00 :00 the [facility] morning Branch for 21 days. enoxaparin 2021-02- No [id number] 40mg inject 0.4 Univers 40 mg/0.4 02-14 [id number] mL under ity of mL 00:00: 05:59 the skin [place] injection 00 :00 in the [facility] morning Branch for 21 days. tamsulosin 2021-02- No [id number] .4mg Take 1 Univers 0.4 mg 24 02-14 [id number] capsule by i ty of hr capsule 00:00: 05:59 mouth in [place] 00 :00 the [facility] morning Branch for 21 days. citalopram 2021-02- No [id number] 40mg Take 1 Univers 40 mg 02-14 [id number] tablet by ity of tablet 00:00: 05:59 mouth in [place] 00 :00 the [facility] morning Branch for 21 days. enoxaparin 2021-02- No [id number] 40mg inject 0.4 Univers 40 mg/0.4 02-14 [id number] mL under ity of mL 00:00: 05:59 the skin [place] injection 00 :00 in the [facility] for 21 days. tamsulosin 2021-02- No [id number] .4mg Take 1 Univers 0.4 mg 24 02-14 [id number] capsule by i ty of hr capsule 00:00: 05:59 mouth [place] 00 :00 the [facility] Branch for 21 days. citalopram 2021-02- No [id number] 40mg Take 1 Univers 40 mg 02-14 [id number] tablet by ity of tablet 00:00: 05:59 mouth in [place] 00 :00 the [facility] Branch for 21 days. enoxaparin 2021-02- No [id number] 40mg inject 0.4 Univers 40 mg/0.4 02-14 [id number] mL under ity of mL 00:00: 05:59 the skin [place] injection 00 :00 in the [facility] for 21 days. citalopram 2021-02- No [id number] 40mg Take 1 Univers 40 mg 02-14 [id number] tablet by ity of tablet 00:00: 05:59 mouth in [place] 00 :00 the [facility] Branch for 21 days. enoxaparin 2021-02- No [id number] 40mg inject 0.4 Univers 40 mg/0.4 02-14 [id number] mL under ity of mL 00:00: 05:59 the skin [place] injection 00 :00 in the [facility] morning [place] for 21 days. citalopram 2021-02- No [id number] 40mg Take 1 Univers 40 mg 02-14 [id number] tablet by ity of tablet 00:00: 05:59 mouth in [place] 00 :00 the [facility] morning Branch for 21 days. hydroCHLORO 2021-02- No [id number] 12.5mg Take 1 Univers thiazide 02-14 [id number] tablet by ity of 12.5 mg 00:00: 00:00 mouth in [place] tablet 00 :00 the [facility] Branch for 30 days. tamsulosin 2021-02 [id number] .4mg Take 1 Univers 0.4 mg 24 02-14 [id number] capsule by i ty of hr capsule 00:00: 00:00 mouth in [place] 00 :00 the Medical morning Branch for 21 days. ursodioL 2021-02 300mg Take 300 Uni vers 300 mg 02-13 mg by ity of capsule 18:19: 00:00 mouth in [place] 36 :00 the Medical morning Branch and 300 mg in the evening. predniSONE 2021-02 2.5mg Take 2.5 U nivers 2.5 mg 02-13 mg by ity of tablet 18:19: 00:00 mouth in [place] 36 :00 the [facility] morning. Branch azaTHIOprin 2021-02 50mg Take 50 mg Univers e 50 mg 02-13 by mouth ity of tablet 18:19: 00:00 in the [place] 36 :00 morning. Medical Branch traMADoL 2021-02 Yes 50mg 50 mg, Univers (ULTRAM) 02-13 Oral, ity of tablet 50 16:04: Q6HPRN, [place] mg 35 Starting Medical on [facility] 12/14/21 at 1104, Until Discontinu ed, Routine, Pain (scale 4-6) lactulose 2021-02 Yes 45mL 45 mL, Univer s (CEPHULAC) 02-13 Oral, ity of solution 45 15:30: DAILY, [place] mL 00 First dose Medical on [facility] 12/14/21 at 1030, Until Discontinu ed, Routine aspirin 325 2021-02 No 325mg Take 325 Univers mg tablet 02-13 mg by ity of 11:16: 00:00 mouth [place] 07 :00 daily. Medical Branch omeprazole 2021-02 40mg Take 40 mg Univers 40 mg 02-13 by mouth. ity of capsule 11:16: 00:00 [place] 07 :00 Medical Branch Insulin 2021-02 Yes [id number] 35U inject 35 Univers Glargine 02-13 [id number] Units ity of 100 unit/mL 00:00: under the [place] (3 mL) 00 skin at Medical injection bedtime. Branch insulin 2021-02 Yes [id number] BG 170 to Univers lispro, 02-13 [id number] 220, give ity o f human, 00:00: 3 unit. BG [place] (HUMALOG 00 221 to Medical U-100 270, give Branch INSULIN) 6 units. 100 unit/mL BG 271 to injection 300, give 9 units. BG > 300, give 12 units, recheck in 1 hour Insulin 2021-02 Yes [id number] 35U inject 35 Univers Glargine 02-13 [id number] Units ity of 100 unit/mL 00:00: under the [place] (3 mL) 00 skin at Medical injection bedtime. Branch insulin 2021-02 Yes [id number] BG 170 to Univers lispro, 02-13 [id number] 220, give ity o f human, 00:00: 3 unit. BG [place] (HUMALOG 00 221 to Medical U-100 270, give Branch INSULIN) 6 units. 100 unit/mL BG 271 to injection 300, give 9 units. BG > 300, give 12 units, recheck in 1 hour Insulin 2021-02 Yes [id number] 35U inject 35 Univers Glargine 02-13 [id number] Units ity of 100 unit/mL 00:00: under the [place] (3 mL) 00 skin at Medical injection bedtime. Branch insulin 2021-02 Yes [id number] BG 170 to Univers lispro, 02-13 [id number] 220, give ity o f human, 00:00: 3 unit. BG [place] (HUMALOG 00 221 to Medical U-100 270, give Branch INSULIN) 6 units. 100 unit/mL BG 271 to injection 300, give 9 units. BG > 300, give 12 units, recheck in 1 hour Insulin 2021-02 Yes [id number] 35U inject 35 Univers Glargine 02-13 [id number] Units ity of 100 unit/mL 00:00: under the [place] (3 mL) 00 skin at Medical injection bedtime. Branch insulin 2021-02 Yes [id number] BG 170 to Univers lispro, 02-13 [id number] 220, give ity o f human, 00:00: 3 unit. BG [place] (HUMALOG 00 221 to Medical U-100 270, give Branch INSULIN) 6 units. 100 unit/mL BG 271 to injection 300, give 9 units. BG > 300, give 12 units, recheck in 1 hour Insulin 2021-02 Yes [id number] 35U inject 35 Univers Glargine 02-13 [id number] Units ity of 100 unit/mL 00:00: under the [place] (3 mL) 00 skin at Medical injection bedtime. Branch insulin 2021-02 Yes [id number] BG 170 to Univers lispro, 02-13 [id number] 220, give ity o f human, 00:00: 3 unit. BG [place] (HUMALOG 00 221 to Medical U-100 270, give Branch INSULIN) 6 units. 100 unit/mL BG 271 to injection 300, give 9 units. BG > 300, give 12 units, recheck in 1 hour Insulin 2021-02 Yes [id number] 35U inject 35 Univers Glargine 02-13 [id number] Units ity of 100 unit/mL 00:00: under the [place] (3 mL) 00 skin at Medical injection bedtime. Branch insulin 2021-02 Yes [id number] BG 170 to Univers lispro, 02-13 [id number] 220, give ity o f human, 00:00: 3 unit. BG [place] (HUMALOG 00 221 to Medical U-100 270, give Branch INSULIN) 6 units. 100 unit/mL BG 271 to injection 300, give 9 units. BG > 300, give 12 units, recheck in 1 hour Insulin 2021-02 Yes [id number] 35U inject 35 Univers Glargine 02-13 [id number] Units ity of 100 unit/mL 00:00: under the [place] (3 mL) 00 skin at Medical injection bedtime. Branch insulin 2021-02 Yes [id number] BG 170 to Univers lispro, 02-13 [id number] 220, give ity o f human, 00:00: 3 unit. BG [place] (HUMALOG 00 221 to Medical U-100 270, give Branch INSULIN) 6 units. 100 unit/mL BG 271 to injection 300, give 9 units. BG > 300, give 12 units, recheck in 1 hour Insulin 2021-02 Yes [id number] 35U inject 35 Univers Glargine 02-13 [id number] Units ity of 100 unit/mL 00:00: under the [place] (3 mL) 00 skin at Medical injection bedtime. Branch insulin 2021-02 Yes [id number] BG 170 to Univers lispro, 02-13 [id number] 220, give ity o f human, 00:00: 3 unit. BG [place] (HUMALOG 00 221 to Medical U-100 270, give Branch INSULIN) 6 units. 100 unit/mL BG 271 to injection 300, give 9 units. BG > 300, give 12 units, recheck in 1 hour Insulin 2021-02 Yes [id number] 35U inject 35 Univers Glargine 02-13 [id number] Units ity of 100 unit/mL 00:00: under the [place] (3 mL) 00 skin at Medical injection bedtime. Branch insulin 2021-02 Yes [id number] BG 170 to Univers lispro, 02-13 [id number] 220, give ity o f human, 00:00: 3 unit. BG [place] (HUMALOG 00 221 to Medical U-100 270, give Branch INSULIN) 6 units. 100 unit/mL BG 271 to injection 300, give 9 units. BG > 300, give 12 units, recheck in 1 hour Insulin 2021-02 Yes [id number] 35U inject 35 Univers Glargine 02-13 [id number] Units ity of 100 unit/mL 00:00: under the [place] (3 mL) 00 skin at Medical injection bedtime. Branch insulin 2021-02 Yes [id number] BG 170 to Univers lispro, 02-13 [id number] 220, give ity o f human, 00:00: 3 unit. BG [place] (HUMALOG 00 221 to Medical U-100 270, give Branch INSULIN) 6 units. 100 unit/mL BG 271 to injection 300, give 9 units. BG > 300, give 12 units, recheck in 1 hour Insulin 2021-02 Yes [id number] 35U inject 35 Univers Glargine 02-13 [id number] Units ity of 100 unit/mL 00:00: under the [place] (3 mL) 00 skin at Medical injection bedtime. Branch insulin 2021-02 Yes [id number] BG 170 to Univers lispro, 02-13 [id number] 220, give ity o f human, 00:00: 3 unit. BG [place] (HUMALOG 00 221 to Medical U-100 270, give Branch INSULIN) 6 units. 100 unit/mL BG 271 to injection 300, give 9 units. BG > 300, give 12 units, recheck in 1 hour Insulin 2021-02 Yes [id number] 35U inject 35 Univers Glargine 02-13 [id number] Units ity of 100 unit/mL 00:00: under the [place] (3 mL) 00 skin at Medical injection bedtime. Branch insulin 2021-02 Yes [id number] BG 170 to Univers lispro, 02-13 [id number] 220, give ity o f human, 00:00: 3 unit. BG [place] (HUMALOG 00 221 to Medical U-100 270, give Branch INSULIN) 6 units. 100 unit/mL BG 271 to injection 300, give 9 units. BG > 300, give 12 units, recheck in 1 hour Insulin 2021-02 Yes [id number] 35U inject 35 [facility] Glargine 02-13 [id number] Units ity of 100 unit/mL 00:00: under the [place] (3 mL) 00 skin at Medical injection bedtime. Branch insulin 2021-02 Yes [id number] BG 170 to [facility] lispro, 02-13 [id number] 220, give ity o f human, 00:00: 3 unit. BG [place] (HUMALOG 00 221 to Medical U-100 270, give Branch INSULIN) 6 units. 100 unit/mL BG 271 to injection 300, give 9 units. BG > 300, give 12 units, recheck in 1 hour Insulin 2021-02 Yes [id number] 35U inject 35 [facility] Glargine 02-13 [id number] Units ity of 100 unit/mL 00:00: under the [place] (3 mL) 00 skin at Medical injection bedtime. Branch insulin 2021-02 Yes [id number] BG 170 to [facility] lispro, 02-13 [id number] 220, give ity o f human, 00:00: 3 unit. BG [place] (HUMALOG 00 221 to Medical U-100 270, give Branch INSULIN) 6 units. 100 unit/mL BG 271 to injection 300, give 9 units. BG > 300, give 12 units, recheck in 1 hour Insulin 2021-02 Yes [id number] 35U inject 35 [facility] Glargine 02-13 [id number] Units ity of 100 unit/mL 00:00: under the [place] (3 mL) 00 skin at Medical injection bedtime. Branch insulin 2021-02 Yes [id number] BG 170 to [facility] lispro, 02-13 [id number] 220, give ity o f human, 00:00: 3 unit. BG [place] (HUMALOG 00 221 to Medical U-100 270, give Branch INSULIN) 6 units. 100 unit/mL BG 271 to injection 300, give 9 units. BG > 300, give 12 units, recheck in 1 hour Insulin 2021-02 Yes [id number] 35U inject 35 [facility] Glargine 02-13 [id number] Units ity of 100 unit/mL 00:00: under the [place] (3 mL) 00 skin at Medical injection bedtime. Branch insulin 2021-02 Yes [id number] BG 170 to [facility] lispro, 02-13 [id number] 220, give ity o f human, 00:00: 3 unit. BG [place] (HUMALOG 00 221 to Medical U-100 270, give Branch INSULIN) 6 units. 100 unit/mL BG 271 to injection 300, give 9 units. BG > 300, give 12 units, recheck in 1 hour Insulin 2021-02 Yes [id number] 35U inject 35 [facility] Glargine 02-13 [id number] Units ity of 100 unit/mL 00:00: under the [place] (3 mL) 00 skin at Medical injection bedtime. Branch insulin 2021-02 Yes [id number] BG 170 to [facility] lispro, 02-13 [id number] 220, give ity o f human, 00:00: 3 unit. BG [place] (HUMALOG 00 221 to Medical U-100 270, give Branch INSULIN) 6 units. 100 unit/mL BG 271 to injection 300, give 9 units. BG > 300, give 12 units, recheck in 1 hour Insulin 2021-02 Yes [id number] 35U inject 35 [facility] Glargine 02-13 [id number] Units ity of 100 unit/mL 00:00: under the [place] (3 mL) 00 skin at Medical injection bedtime. Branch insulin 2021-02 Yes [id number] BG 170 to [facility] lispro, 02-13 [id number] 220, give ity o f human, 00:00: 3 unit. BG [place] (HUMALOG 00 221 to Medical U-100 270, give Branch INSULIN) 6 units. 100 unit/mL BG 271 to injection 300, give 9 units. BG > 300, give 12 units, recheck in 1 hour Insulin 2021-02 Yes [id number] 35U inject 35 [facility] Glargine 02-13 [id number] Units ity of 100 unit/mL 00:00: under the [place] (3 mL) 00 skin at Medical injection bedtime. Branch insulin 2021-02 Yes [id number] BG 170 to [facility] lispro, 02-13 [id number] 220, give ity o f human, 00:00: 3 unit. BG [place] (HUMALOG 00 221 to Medical U-100 270, give Branch INSULIN) 6 units. 100 unit/mL BG 271 to injection 300, give 9 units. BG > 300, give 12 units, recheck in 1 hour Insulin 2021-02 Yes [id number] 35U inject 35 [facility] Glargine 02-13 [id number] Units ity of 100 unit/mL 00:00: under the [place] (3 mL) 00 skin at Medical injection bedtime. Branch insulin 2021-02 Yes [id number] BG 170 to [facility] lispro, 02-13 [id number] 220, give ity o f human, 00:00: 3 unit. BG [place] (HUMALOG 00 221 to Medical U-100 270, give Branch INSULIN) 6 units. 100 unit/mL BG 271 to injection 300, give 9 units. BG > 300, give 12 units, recheck in 1 hour Insulin 2021-02 Yes [id number] 35U inject 35 [facility] Glargine 02-13 [id number] Units ity of 100 unit/mL 00:00: under the [place] (3 mL) 00 skin at Medical injection bedtime. Branch insulin 2021-02 Yes [id number] BG 170 to [facility] lispro, 02-13 [id number] 220, give ity o f human, 00:00: 3 unit. BG [place] (HUMALOG 00 221 to Medical U-100 270, give Branch INSULIN) 6 units. 100 unit/mL BG 271 to injection 300, give 9 units. BG > 300, give 12 units, recheck in 1 hour Insulin 2021-02 Yes [id number] 35U inject 35 [facility] Glargine 02-13 [id number] Units ity of 100 unit/mL 00:00: under the [place] (3 mL) 00 skin at Medical injection bedtime. Branch insulin 2021-02 Yes [id number] BG 170 to [facility] lispro, 02-13 [id number] 220, give ity o f human, 00:00: 3 unit. BG [place] (HUMALOG 00 221 to Medical U-100 270, give Branch INSULIN) 6 units. 100 unit/mL BG 271 to injection 300, give 9 units. BG > 300, give 12 units, recheck in 1 hour Insulin 2021-02 Yes [id number] 35U inject 35 [facility] Glargine 02-13 [id number] Units ity of 100 unit/mL 00:00: under the [place] (3 mL) 00 skin at Medical injection bedtime. Branch insulin 2021-02 Yes [id number] BG 170 to [facility] lispro, 02-13 [id number] 220, give ity o f human, 00:00: 3 unit. BG [place] (HUMALOG 00 221 to Medical U-100 270, give Branch INSULIN) 6 units. 100 unit/mL BG 271 to injection 300, give 9 units. BG > 300, give 12 units, recheck in 1 hour Insulin 2021-02 Yes [id number] 35U inject 35 [facility] Glargine 02-13 [id number] Units ity of 100 unit/mL 00:00: under the [place] (3 mL) 00 skin at Medical injection bedtime. Branch insulin 2021-02 Yes [id number] BG 170 to [facility] lispro, 02-13 [id number] 220, give ity o f human, 00:00: 3 unit. BG [place] (HUMALOG 00 221 to Medical U-100 270, give Branch INSULIN) 6 units. 100 unit/mL BG 271 to injection 300, give 9 units. BG > 300, give 12 units, recheck in 1 hour Insulin 2021-02 Yes [id number] 35U inject 35 [facility] Glargine 02-13 [id number] Units ity of 100 unit/mL 00:00: under the [place] (3 mL) 00 skin at Medical injection bedtime. Branch insulin 2021-02 Yes [id number] BG 170 to [facility] lispro, 02-13 [id number] 220, give ity o f human, 00:00: 3 unit. BG [place] (HUMALOG 00 221 to Medical U-100 270, give Branch INSULIN) 6 units. 100 unit/mL BG 271 to injection 300, give 9 units. BG > 300, give 12 units, recheck in 1 hour Insulin 2021-02 Yes [id number] 35U inject 35 [facility] Glargine 02-13 [id number] Units ity of 100 unit/mL 00:00: under the [place] (3 mL) 00 skin at Medical injection bedtime. Branch insulin 2021-02 Yes [id number] BG 170 to [facility] lispro, 02-13 [id number] 220, give ity o f human, 00:00: 3 unit. BG [place] (HUMALOG 00 221 to Medical U-100 270, give Branch INSULIN) 6 units. 100 unit/mL BG 271 to injection 300, give 9 units. BG > 300, give 12 units, recheck in 1 hour Insulin 2021-02 Yes [id number] 35U inject 35 [facility] Glargine 02-13 [id number] Units ity of 100 unit/mL 00:00: under the [place] (3 mL) 00 skin at Medical injection bedtime. Branch insulin 2021-02 Yes [id number] BG 170 to [facility] lispro, 02-13 [id number] 220, give ity o f human, 00:00: 3 unit. BG [place] (HUMALOG 00 221 to Medical U-100 270, give Branch INSULIN) 6 units. 100 unit/mL BG 271 to injection 300, give 9 units. BG > 300, give 12 units, recheck in 1 hour Insulin 2021-02 Yes [id number] 35U inject 35 [facility] Glargine 02-13 [id number] Units ity of 100 unit/mL 00:00: under the [place] (3 mL) 00 skin at Medical injection bedtime. Branch insulin 2021-02 Yes [id number] BG 170 to [facility] lispro, 02-13 [id number] 220, give ity o f human, 00:00: 3 unit. BG [place] (HUMALOG 00 221 to Medical U-100 270, give Branch INSULIN) 6 units. 100 unit/mL BG 271 to injection 300, give 9 units. BG > 300, give 12 units, recheck in 1 hour Insulin 2021-02 Yes [id number] 35U inject 35 [facility] Glargine 02-13 [id number] Units ity of 100 unit/mL 00:00: under the [place] (3 mL) 00 skin at Medical injection bedtime. Branch insulin 2021-02 Yes [id number] BG 170 to [facility] lispro, 02-13 [id number] 220, give ity o f human, 00:00: 3 unit. BG [place] (HUMALOG 00 221 to Medical U-100 270, give Branch INSULIN) 6 units. 100 unit/mL BG 271 to injection 300, give 9 units. BG > 300, give 12 units, recheck in 1 hour Insulin 2021-02- No [id number] 35U inject 35 [facility] Glargine 02-13 [id number] Units ity of 100 unit/mL 00:00: 00:00 under the [place] (3 mL) 00 :00 skin at Medical injection bedtime. Branch insulin 2021-02- No [id number] BG 170 to [facility] lispro, 02-13 [id number] 220, give ity of human, 00:00: 00:00 3 unit. BG [place] (HUMALOG 00 :00 221 to Medical U-100 270, give Branch INSULIN) 6 units. 100 unit/mL BG 271 to injection 300, give 9 units. BG > 300, give 12 units, recheck in 1 hour Insulin 2021-02- No [id number] 35U inject 35 [facility] Glargine 02-13 [id number] Units ity of 100 unit/mL 00:00: 00:00 under the [place] (3 mL) 00 :00 skin at Medical injection bedtime. Branch insulin 2021-02- No [id number] BG 170 to [facility] lispro, 02-13 [id number] 220, give ity of human, 00:00: 00:00 3 unit. BG [place] (HUMALOG 00 :00 221 to Medical U-100 270, give Branch INSULIN) 6 units. 100 unit/mL BG 271 to injection 300, give 9 units. BG > 300, give 12 units, recheck in 1 hour insulin 2021-02- No [id number] 10U inject 10 [facility] lispro, 02-13 [id number] Units ity of human, 100 00:00: 05:59 under the [place] unit/mL 00 :00 skin in Medical injection the Branch morning and 10 Units at noon and 10 Units in the evening with meals. BG 170 to 220, give 3 unit. BG 221 to 270, give 6 units. BG 271 to 300, give 9 units. BG > 300, give 12 units, recheck in 1 hour insulin 2021-02- No [id number] 10U inject 10 [facility] lispro, 02-13 [id number] Units ity of human, 100 00:00: 05:59 under the [place] unit/mL 00 :00 skin in Medical injection the [place] morning and 10 Units at noon and 10 Units in the evening with meals. BG 170 to 220, give 3 unit. BG 221 to 270, give 6 units. BG 271 to 300, give 9 units. BG > 300, give 12 units, recheck in 1 hour insulin 2021-02- No [id number] 10U inject 10 [facility] lispro, 02-13 [id number] Units ity of human, 100 00:00: 05:59 under the [place] unit/mL 00 :00 skin in Medical injection the [place] morning and 10 Units at noon and 10 Units in the evening with meals. BG 170 to 220, give 3 unit. BG 221 to 270, give 6 units. BG 271 to 300, give 9 units. BG > 300, give 12 units, recheck in 1 hour insulin 2021-02 No [id number] 10U inject 10 [facility] lispro, 02-13 183077 Units ity of human, 100 00:00: 05:59 under the [place] unit/mL 00 :00 skin in Medical injection the [place] morning and 10 Units at noon and 10 Units in the evening with meals. BG 170 to 220, give 3 unit. BG 221 to 270, give 6 units. BG 271 to 300, give 9 units. BG > 300, give 12 units, recheck in 1 hour insulin 2021-02- No [id number] 10U inject 10 [facility] lispro, 02-13 [id number] Units ity of human, 100 00:00: 05:59 under the [place] unit/mL 00 :00 skin in Medical injection the [place] morning and 10 Units at noon and 10 Units in the evening with meals. BG 170 to 220, give 3 unit. BG 221 to 270, give 6 units. BG 271 to 300, give 9 units. BG > 300, give 12 units, recheck in 1 hour insulin 2021-02- No [id number] 10U inject 10 [facility] lispro, 02-13 [id number] Units ity of human, 100 00:00: 05:59 under the [place] unit/mL 00 :00 skin in Medical injection the [place] morning and 10 Units at noon and 10 Units in the evening with meals. BG 170 to 220, give 3 unit. BG 221 to 270, give 6 units. BG 271 to 300, give 9 units. BG > 300, give 12 units, recheck in 1 hour insulin 2021-02- No [id number] 10U inject 10 [facility] lispro, 02-13 [id number] Units ity of human, 100 00:00: 05:59 under the [place] unit/mL 00 :00 skin in Medical injection the Branch morning and 10 Units at noon and 10 Units in the evening with meals. BG 170 to 220, give 3 unit. BG 221 to 270, give 6 units. BG 271 to 300, give 9 units. BG > 300, give 12 units, recheck in 1 hour insulin 2021-02- No [id number] 10U inject 10 [facility] lispro, 02-13 [id number] Units ity of human, 100 00:00: 05:59 under the [place] unit/mL 00 :00 skin in Medical injection the Branch morning and 10 Units at noon and 10 Units in the evening with meals. BG 170 to 220, give 3 unit. BG 221 to 270, give 6 units. BG 271 to 300, give 9 units. BG > 300, give 12 units, recheck in 1 hour insulin 2021-02- No [id number] 10U inject 10 [facility] lispro, 02-13 [id number] Units ity of human, 100 00:00: 05:59 under the [place] unit/mL 00 :00 skin in Medical injection the Branch morning and 10 Units at noon and 10 Units in the evening with meals. BG 170 to 220, give 3 unit. BG 221 to 270, give 6 units. BG 271 to 300, give 9 units. BG > 300, give 12 units, recheck in 1 hour amoxicillin 2021-02- No [id number] 1{tbl} Take 1 [facility] -clavulanat 02-13 [id number] tablet by ity of e 00:00: 05:59 mouth in [place] (AUGMENTIN) 00 :00 the Medical 875-125 mg morning Branch per tablet and 1 tablet in the evening. Do all this for 28 days. amoxicillin 2021-02- No [id number] 1{tbl} Take 1 [facility] -clavulanat 02-13 [id number] tablet by ity of e 00:00: 05:59 mouth in [place] (AUGMENTIN) 00 :00 the Medical 875-125 mg morning Branch per tablet and 1 tablet in the evening. Do all this for 28 days. amoxicillin 2021-02- No [id number] 1{tbl} Take 1 [facility] -clavulanat 02-13 [id number] tablet by ity of e 00:00: 05:59 mouth in [place] (AUGMENTIN) 00 :00 the Medical 875-125 mg morning Branch per tablet and 1 tablet in the evening. Do all this for 28 days. amoxicillin 2021-02- No [id number] 1{tbl} Take 1 [facility] -clavulanat 02-13 [id number] tablet by ity of e 00:00: 05:59 mouth in [place] (AUGMENTIN) 00 :00 the Medical 875-125 mg morning Branch per tablet and 1 tablet in the evening. Do all this for 28 days. amoxicillin 2021-02- No [id number] 1{tbl} Take 1 [facility] -clavulanat 02-13 [id number] tablet by ity of e 00:00: 05:59 mouth in [place] (AUGMENTIN) 00 :00 the Medical 875-125 mg morning Branch per tablet and 1 tablet in the evening. Do all this for 28 days. amoxicillin 2021-02- No [id number] 1{tbl} Take 1 [facility] -clavulanat 02-13 [id number] tablet by ity of e 00:00: 05:59 mouth in [place] (AUGMENTIN) 00 :00 the Medical 875-125 mg morning Branch per tablet and 1 tablet in the evening. Do all this for 28 days. lactulose 2021-02- No [id number] 45mL Take 45 mL Univers 10 gram/15 02-13 [id number] by mouth it y of mL solution 00:00: 05:59 in the [facility] as 00 :00 morning Medical for 14 Branch days. Discard remainder sodium 2021-02- No [id number] Apply to [facility] hypochlorit 02-13 963497 area(s) it y of e 0.25% 00:00: 05:59 every 8 [place] solution 00 :00 (eight) Medical hours for Branch 21 days. lactulose 2021-02- No [id number] 45mL Take 45 mL [facility] 10 gram/15 02-13 738961 by mouth it y of mL solution 00:00: 05:59 in the [place] as 00 :00 morning Medical for 14 Branch days. Discard remainder sodium 2021-02- No [id number] Apply to [facility] 02-13 [id number] area(s) it y of e 0.25% 00:00: 05:59 every 8 [place] solution 00 :00 (eight) Medical hours for Branch 21 days. lactulose 2021-02- No [id number] 45mL Take 45 mL [facility] 10 gram/15 02-13 [id number] by mouth it y of mL solution 00:00: 05:59 in the [place] as 00 :00 morning Medical for 14 Branch days. Discard remainder sodium 2021-02- No [id number] Apply to [facility] 02-13 400434 area(s) it y of e 0.25% 00:00: 05:59 every 8 [place] solution 00 :00 (eight) Medical hours for Branch 21 days. lactulose 2021-02- No [id number] 45mL Take 45 mL Univers 10 gram/15 02-13 276013 by mouth it y of mL solution 00:00: 05:59 in the [place] as 00 :00 morning Medical for 14 Branch days. Discard remainder sodium 2021-02- No [id number] Apply to [facility] 02-13 345118 area(s) it y of e 0.25% 00:00: 05:59 every 8 [place] solution 00 :00 (eight) Medical hours for Branch 21 days. lactulose 2021-02- No [id number] 45mL Take 45 mL [facility] 10 gram/15 02-13 [id number] by mouth it y of mL solution 00:00: 05:59 in the [place] as 00 :00 morning Medical for 14 Branch days. Discard remainder sodium 2021-02- No [id number] Apply to [facility] 02-13 940916 area(s) it y of e 0.25% 00:00: 05:59 every 8 [place] solution 00 :00 (eight) Medical hours for Branch 21 days. lactulose 2021-02- No [id number] 45mL Take 45 mL [facility] 10 gram/15 02-13 332583 by mouth it y of mL solution 00:00: 05:59 in the [place] as 00 :00 morning Medical for 14 Branch days. Discard remainder sodium 2021-02- No [id number] Apply to [facility] hypochlorit 02-13 225750 area(s) it y of e 0.25% 00:00: 05:59 every 8 [place] solution 00 :00 (eight) Medical hours for Branch 21 days. lactulose 2021-02- No [id number] 45mL Take 45 mL [facility] 10 gram/15 02-13 747772 by mouth it y of mL solution 00:00: 05:59 in the [place] as 00 :00 morning Medical for 14 Branch days. Discard remainder lactulose 2021-02- No [id number] 45mL Take 45 mL [facility] 10 gram/15 02-13 102478 by mouth it y of mL solution 00:00: 05:59 in the [facility] as 00 :00 morning Medical for 14 Branch days. Discard remainder docusate 2021-02- No [id number] 100mg Take 1 [facility] 100 mg 02-13 [id number] capsule by ity of capsule 00:00: 05:59 mouth in [place] 00 :00 the Medical morning Branch and 1 capsule in the evening. Do all this for 14 days. docusate 2021-02- No [id number] 100mg Take 1 [facility] 100 mg 02-13 [id number] capsule by ity of capsule 00:00: 05:59 mouth in [place] 00 :00 the Medical morning Branch and 1 capsule in the evening. Do all this for 14 days. docusate 2021-02- No [id number] 100mg Take 1 [facility] 100 mg 02-13 [id number] capsule by ity of capsule 00:00: 05:59 mouth in [place] 00 :00 the Medical morning Branch and 1 capsule in the evening. Do all this for 14 days. docusate 2021-02- No [id number] 100mg Take 1 [facility] 100 mg 02-13 [id number] capsule by ity of capsule 00:00: 05:59 mouth in [place] 00 :00 the Medical morning Branch and 1 capsule in the evening. Do all this for 14 days. docusate 2021-02- No [id number] 100mg Take 1 [facility] 100 mg 02-13 [id number] capsule by ity of capsule 00:00: 05:59 mouth in [place] 00 :00 the Medical morning Branch and 1 capsule in the evening. Do all this for 14 days. docusate 2021-02- No [id number] 100mg Take 1 [facility] 100 mg 02-13 [id number] capsule by ity of capsule 00:00: 05:59 mouth in [place] 00 :00 the Medical morning Branch and 1 capsule in the evening. Do all this for 14 days. docusate 2021-02 No [id number] 100mg Take 1 [facility] 100 mg 02-13 [id number] capsule by ity of capsule 00:00: 00:00 mouth in [place] 00 :00 the Medical morning Branch and 1 capsule in the evening. Do all this for 14 days. sodium 2021-02 No [id number] Apply to [facility] hypochlorit 02-13 552105 area(s) it y of e 0.25% 00:00: 00:00 every 8 [place] solution 00 :00 (eight) Medical hours for Branch 21 days. amoxicillin 2021-02 No [id number] 1{tbl} Take 1 [facility] -clavulanat 02-13 [id number] tablet by ity of e 00:00: 00:00 mouth in [place] (AUGMENTIN) 00 :00 the Medical 875-125 mg morning Branch per tablet and 1 tablet in the evening. Do all this for 28 days. HYDROcodone 2021-02- No [id number] 1{tbl} Take 1 U nivers -acetaminop 02-13 tablet by it y of hen ([place]) 00:00: 00:00 [place] 5-325 mg 00 :00 every 6 Medical tablet (six) Branch hours as needed for Pain (scale 7-10) for up to 7 days. Indication s: acute pain HYDROcodone 2021-02 No [id number] 1{tbl} Take 1 U nivers -acetaminop 02-13 tablet by it y of hen (NORCO) 00:00: 05:59 mouth [place] 5-325 mg 00 :00 every 6 Medical tablet (six) Branch hours as needed for Pain (scale 7-10) for up to 7 days. Indication s: acute pain HYDROcodone 2021-02 4647 1{tbl} Take 1 U nivers -acetaminop -12-22 tablet by it y of hen ([place] [employer]) 00:00: 05:59 mouth [place] 5-325 mg 00 :00 every 6 Medical tablet (six) Branch hours as needed for Pain (scale 7-10) for up to 7 days. Indication s: acute pain HYDROcodone 2021-02 4647 1{tbl} Take 1 U nivers -acetaminop -12-22 tablet by it y of hen ([place] [employer]) 00:00: 05:59 mouth [place] 5-325 mg 00 :00 every 6 Medical tablet (six) Branch hours as needed for Pain (scale 7-10) for up to 7 days. Indication s: acute pain HYDROcodone 2021-02 4647 1{tbl} Take 1 U nivers -acetaminop -12-22 tablet by it y of hen ([place] [employer]) 00:00: 05:59 mouth [place] 5-325 mg 00 :00 every 6 Medical tablet (six) Branch hours as needed for Pain (scale 7-10) for up to 7 days. Indication s: acute pain HYDROcodone 2021-02 4647 1{tbl} Take 1 U nivers -acetaminop -12-22 tablet by it y of hen ([place] [employer]) 00:00: 05:59 mouth [place] 5-325 mg 00 :00 every 6 Medical tablet (six) Branch hours as needed for Pain (scale 7-10) for up to 7 days. Indication s: acute pain HYDROcodone 2021-02 4647 1{tbl} Take 1 U nivers -acetaminop -12-22 tablet by it y of hen ([place] [employer]) 00:00: 05:59 mouth [place] 5-325 mg 00 :00 every 6 Medical tablet (six) Branch hours as needed for Pain (scale 7-10) for up to 7 days. Indication s: acute pain insulin 2022-1 2022- No 35U 35 Units, Univ ers glargine 0-30 12-14 Subcutaneo ity of (LANTUS 02:00: 14:32 us, [facility], [place] U-100) 00 :01 First dose Medical injection (after Branch 35 Units last modificati on) on [facility] 12/11/21 at 2100, Until Discontinu ed, Routine KCL 2021-02- No 40meq 40 mEq, Univers (KLOR-CON 012-11 Oral, ity of M20) tablet 11:30: 11:29 ONCE, 1 [place] 40 mEq 00 :00 dose, On Medical Sat Branch 12/11/21 at 0630, Routine sodium 2021-02 Yes Topical, Univers hypochlorit 0-28 Q8H, First it y of e 0.25% 19:00: dose on [place] ([facility] Mon Medical SOLUTION) 12/10/21 Branch solution at 1400, Until Discontinu ed, Routine piperacilli 2021-02- No 3.375g 3.375 g, Univers n-tazobacta 0-28 12-19 IV ity of m (ZOSYN) 03:00: 02:59 [place], [place] 3.375 g in 00 :00 Q8H, 27 Medica l NaCl 0.9% doses, Branch (NS) 50 mL First dose MINI-BAG (after last modificati on) on [place] 12/09/21 at 2200, Last dose on [facility] 12/18/21 at 1400, Administer over 240 Minutes, 50 mL
Reas on for Anti-Infec tive: Documented Infection< br>Documen ender Infection Site: Skin / Soft Tissue
Duration of Therapy: 7 days piperacilli 2021-02- No 3.375g 3.375 g, Univers n-tazobacta 0-28 - IV ity of m (ZOSYN) 03:00: 02:59 [place], [place] 3.375 g in 00 :00 Q8H, 27 Medica l NaCl 0.9% doses, Branch (NS) 50 mL First dose MINI-BAG (after last modificati on) on [facility] 12/09/21 at 2200, Last dose on [facility] 12/18/21 at 1400, Administer over 240 Minutes, 50 mL
Reas on for Anti-Infec tive: Documented Infection< br>Documen ender Infection Site: Skin / Soft Tissue
Duration of Therapy: 7 days insulin 2021-02 Yes 30U 30 Units, Unive rs glargine 0-28 Subcutaneo ity o f (LANTUS 02:00: us, [facility], [place] U-100) 00 First dose Medical injection (after Branch 30 Units last modificati on) on [facility] 12/09/21 at 2100, Until Discontinu ed, Routine insulin 2021-02 No 30U 30 Units, Univ ers glargine 0-28 10-29 Subcutaneo ity of (LANTUS 02:00: 17:18 , [facility], [place] U-100) 00 :44 First dose Medical injection (after Branch 30 Units last modificati on) on [facility] 12/09/21 at 2100, Until Discontinu ed, Routine insulin 2021-02 Yes 10U 10 Units, Unive rs lispro 0-27 Subcutaneo ity of (human) 17:00: us, [facility] [place] (HumaLOG 00 MEALS, Medical U-100) First dose Branch injection (after 10 Units last modificati on) on [facility] 12/09/21 at 1200, Until Discontinu ed, Routine insulin 2021-02 Yes 10U 10 Units, Unive rs lispro 0-27 Subcutaneo ity of (human) 17:00: us, TID [place] (HumaLOG 00 MEALS, Medical U-100) First dose Branch injection (after 10 Units last modificati on) on [facility] 12/09/21 at 1200, Until Discontinu ed, Routine piperacilli 2021-02 3.375g 3.375 g, Univers n-tazobacta 12-09 IV ity of m (ZOSYN) 17:00: 20:12 [place]back, [place] 3.375 g in 00 :24 Q6H, 28 Medica l NaCl 0.9% doses, Branch (NS) 50 mL First dose MINI-BAG on [facility] 12/09/21 at 1200, Last dose on [facility] 12/16/21 at 0600, Administer over 30 Minutes, 50 mL
Reas on for Anti-Infec tive: Documented Infection< br>Documen ender Infection Site: Skin / Soft Tissue
Duration of Therapy: 7 days tamsulosin 2021-02 Yes .4mg 0.4 mg, Univ ers (FLOMAX) 0-27 Oral, ity of capsule 0.4 14:00: DAILY, [place] mg 00 First dose Medical on [facility] Branch 12/09/21 at 0900, Until Discontinu ed, Routine polyethylen 2021-02 Yes 17g 17 g, Unive rs e glycol 0-27 Oral, ity of 3350 powder 14:00: DAILY, [place] 17 g 00 First dose Medical on [facility] Branch 12/09/21 at 0900, Until Discontinu ed, Routine tamsulosin 2021-02 Yes .4mg 0.4 mg, Univ ers (FLOMAX) 0-27 Oral, ity of capsule 0.4 14:00: [place] 00 First dose Medical on [facility] Branch 12/09/21 at 0900, Until Discontinu ed, Routine polyethylen 2021-02 Yes 17g 17 g, Unive rs e glycol 0-27 Oral, ity of 3350 powder 14:00: DAILY[place] 17 g 00 First dose Medical on [facility] 12/09/21 at 0900, Until Discontinu ed, Routine magnesium 2021-02 Yes 30mL 30 mL, Univer s hydroxide 0-27 Oral, ity of (MILK OF 05:00: QDAILYPRN, [place] MAGNESIA) 00 Starting Medica l 400 mg/5 mL on [facility] Branch suspension 12/09/21 30 mL at 0000, Until Discontinu ed, Routine, Constipati on magnesium 2021-02 Yes 30mL 30 mL, Univer s hydroxide 0-27 Oral, ity of (MILK OF 05:00: QDAILYPRN, [place] MAGNESIA) 00 Starting Medica l 400 mg/5 mL on [facility] Branch suspension 12/09/21 30 mL at 0000, Until Discontinu ed, Routine, Constipati on docusate 2021-02 Yes 100mg 100 mg, Unive rs (COLACE) 0-27 Oral, BID, ity o f capsule 100 01:00: First dose [place] mg 00 (after Medical last Branch modificati on) on Mon12/08/21 at 2000, Until Discontinu ed, Routine docusate 2021-02 Yes 100mg 100 mg, Unive rs (COLACE) 0-27 Oral, BID, ity o f capsule 100 01:00: First dose [place] mg 00 (after Medical last Branch modificati on) on Mon12/08/21 at 2000, Until Discontinu ed, Routine acetaminoph 2021-02 Yes 650mg 650 mg, Un tabitha en 0-27 Oral, ity of (TYLENOL) 00:31: Q6HPRN, [place] tablet 650 19 Starting Medic al mg on Mon Branch 12/08/21 at 1931, Until Discontinu ed, Routine, Temp > 38.5 C acetaminoph 2021-02 Yes 650mg 650 mg, Un tabitha en 0-27 Oral, ity of (TYLENOL) 00:31: Q6HPRN, [place] tablet 650 19 Starting Medic al mg on Mon Branch 12/08/21 at 1931, Until Discontinu ed, Routine, Temp > 38.5 C labetaloL 2021-02 Yes 10mg 10 mg, Univer s (NORMODYNE) 0-26 Slow IV ity o f injection 18:16: Push, [place] 10 mg 40 Q20MIN Medical PRN, 3 Branch doses, Starting on Mon12/08/21 at 1316, Until Discontinu ed, Routine, tachycardi a >110 hold if BP sytolic <120 labetaloL 2021-02 Yes 10mg 10 mg, Univer s (NORMODYNE) 0-26 Slow IV ity o f injection 18:16: Push, [place] 10 mg 40 Q20MIN Medical PRN, 3 Branch doses, Starting on Mon12/08/21 at 1316, Until Discontinu ed, Routine, tachycardi a >110 hold if BP sytolic <120 meperidine 2021-02 Yes 25mg 25 mg, Unive rs (DEMEROL) 0-26 Slow IV ity of injection 18:11: Push, [place] 25 mg 52 Q3HPRN, 2 Medical doses, Branch Starting on Mon12/08/21 at 1311, Until Discontinu ed, Routine, Reduce postoperat deyvi shivering< br>Enter indication for use: Reduce postoperat deyvi shivering< br>member of congress approving Restricted medication : PACU RECOVERY meperidine 2021-02 Yes 25mg 25 mg, Unive rs (DEMEROL) 0-26 Slow IV ity of injection 18:11: Push, [place] 25 mg 52 Q3HPRN, 2 Medical doses, Branch Starting on Mon12/08/21 at 1311, Until Discontinu ed, Routine, Reduce postoperat deyvi shivering< br>Enter indication for use: Reduce postoperat deyvi shivering< br>member of congress approving Restricted medication : PACU RECOVERY sodium 2021-02- No PRN, Univers hypochlorit 012-08 Starting ity of e 0.025% 17:11: 17:57 on Mon ([facility]) 00 :24 12/08/21 Medica l solution at 1211, Branch Until Mon12/08/21 at 1257, Routine, Intra-op glycerin/mi 2021-02- No 225mL 225 mL, U nivers neral oil 12-08 Rectal, ity of (AGLO 14:00: 22:11 ONCE, 1 [place] ENEMA) 00 :00 dose, On Medical (COMPOUNDED Mon ) Enem 225 12/08/21 mL at 0900, Routine ursodioL 2021-02 Yes 300mg Take 300 Univ ers 300 mg 0-26 mg by ity of capsule 13:48: mouth in [place] the Medical morning Branch and 300 mg in the evening. predniSONE 2021-02 Yes 2.5mg Take 2.5 Un tabitha 2.5 mg 0-26 mg by ity of tablet 13:48: mouth in [place] the morning. Branch azaTHIOprin 2021-02 Yes 50mg Take 50 mg Univers e 50 mg 0-26 by mouth ity of tablet 13:48: in the [place] morning. Medical Branch insulin 2021-02 Yes 25U 25 Units, Unive rs glargine 0-25 Subcutaneo ity o f (LANTUS 02:00: us, [facility], [place] U-100) 00 First dose Medical injection (after Branch 25 Units last modificati on) on 12/06/21 at 2100, Until Discontinu ed, Routine insulin 2021-02 Yes 25U 25 Units, Unive rs glargine 0-25 Subcutaneo ity o f (LANTUS 02:00: us, [facility], [place] U-100) 00 First dose Medical injection (after Branch 25 Units last modificati on) on Mon12/06/21 at 2100, Until Discontinu ed, Routine insulin 2021-02 25U 25 Units, Univ ers glargine 012-09 Subcutaneo ity of (LANTUS 02:00: 14:50 us, [facility], [place] U-100) 00 :27 First dose Medical injection (after Branch 25 Units last modificati on) on Mon12/06/21 at 2100, Until Discontinu ed, Routine gabapentin 2021-02 No 300mg 300 mg, Un tabitha (NEURONTIN) 12-06 Oral, ity of capsule 300 23:30: 23:36 ONCE, 1 [place] mg 00 :00 dose, On Medical [facility] 12/06/21 at 1830, Routine vancomycin 2021-02 No 15mg/kg 1,500 mg Univers (VANCOCIN) 12-13 (rounded ity of 1,500 mg in 18:00: 17:59 from [place] NaCl 0.9% 00 :00 1,972.5 mg Medi janis (NS) 500 mL = 15 mg/kg Br anch VIAL-MATE ?131.5 IV kg), IV piggyback Piggyback, Q12H ABX, 14 doses, First dose on Mon12/06/21 at 1300, Last dose on Mon12/13/21 at 0100, Administer over 90 Minutes, 500 mL
Reas on for Anti-Infec tive: Documented Infection< br>Documen ender Infection Site: Joint<br&g t;Duration of Therapy: 10 days vancomycin 2021-02 No 15mg/kg 1,500 mg Univers (VANCOCIN) 12-13 (rounded ity of 1,500 mg in 18:00: 17:59 from [place] NaCl 0.9% 00 :00 1,972.5 mg Medi janis (NS) 500 mL = 15 mg/kg Br anch VIAL-MATE ?131.5 IV kg), IV piggyback Piggyback, Q12H ABX, 14 doses, First dose on Mon12/06/21 at 1300, Last dose on Mon12/13/21 at 0100, Administer over 90 Minutes, 500 mL
Reas on for Anti-Infec tive: Documented Infection< br>Documen ender Infection Site: Joint<br&g t;Duration of Therapy: 10 days vancomycin 2021-02 15mg/kg 1,500 mg Univers (VANCOCIN) 012-09 (rounded ity of 1,500 mg in 18:00: 13:06 from [place] NaCl 0.9% 00 :36 1,972.5 mg Medi janis (NS) 500 mL = 15 mg/kg Br anch VIAL-MATE ?131.5 IV kg), IV piggyback Piggyback, Q12H ABX, 14 doses, First dose on Mon12/06/21 at 1300, Last dose on Mon12/13/21 at 0100, Administer over 90 Minutes, 500 mL
Reas on for Anti-Infec tive: Documented Infection< br>Documen ender Infection Site: Joint<br&g t;Duration of Therapy: 10 days insulin 2021-02 Yes 8U 8 Units, Univer s lispro 0-24 Subcutaneo ity of (human) 17:00: , [facility] (HumaLOG 00 MEALS, Medical U-100) First dose Branch injection 8 (after Units last modificati on) on Mon12/06/21 at 1200, Until Discontinu ed, Routine insulin 2021-02 Yes 8U 8 Units, Univer s lispro 0-24 Subcutaneo ity of (human) 17:00: , D [place] (HumaLOG 00 MEALS, Medical U-100) First dose Branch injection 8 (after Units last modificati on) on Mon12/06/21 at 1200, Until Discontinu ed, Routine insulin 2021-02 No 8U 8 Units, Unive rs lispro 0-24 12-09 Subcutaneo ity of (human) 17:00: 14:50 us, TID [place] (HumaLOG 00 :27 MEALS, Medical U-100) First dose Branch injection 8 (after Units last modificati on) on Mon12/06/21 at 1200, Until Discontinu ed, Routine polyethylen 2021-02 No 17g 17 g, Univ ers e glycol 0-24 10-24 Oral, ity of 3350 powder 15:45: 17:14 ONCE, 1 [place] 17 g 00 :00 dose, On Medical [facility] 12/06/21 at 1045, Routine ondansetron 2021-02 Yes 4mg 4 mg, Slow Univers (ZOFRAN 0-24 IV Push, ity of (PF)) 08:00: Q6HPRN, [place] injection 4 00 Starting Medi janis mg on [facility] 12/06/21 at 0300, Until Discontinu ed, Routine, Nausea and Vomiting (N/V) ondansetron 2021-02 Yes 4mg 4 mg, Slow Univers (ZOFRAN 0-24 IV Push, ity of (PF)) 08:00: Q6HPRN, [place] injection 4 00 Starting Medi janis mg on [facility] 12/06/21 at 0300, Until Discontinu ed, Routine, Nausea and Vomiting (N/V) ondansetron 2021-02 Yes 4mg 4 mg, Slow Univers (ZOFRAN 0-24 IV Push, ity of (PF)) 08:00: Q6HPRN, [place] injection 4 00 Starting Medi janis mg on [facility] 12/06/21 at 0300, Until Discontinu ed, Routine, Nausea and Vomiting (N/V) ondansetron 2021-02 Yes 4mg 4 mg, Slow Univers (ZOFRAN 0-24 IV Push, ity of (PF)) 08:00: Q6HPRN, [place] injection 4 00 Starting Medi janis mg on [facility] 12/06/21 at 0300, Until Discontinu ed, Routine, Nausea and Vomiting (N/V) gabapentin 2021-02 No 300mg 300 mg, Un tabitha (NEURONTIN) 0-24 10-24 Oral, ity of capsule 300 04:45: 04:38 ONCE, 1 [place] mg 00 :00 dose, On Medical [facility] 12/05/21 at 2345, Routine methocarbam 2021-02 Yes 500mg 500 mg, Un tabitha oL 0-24 Oral, QID, ity of (ROBAXIN) 03:45: First dose [place] tablet 500 00 on [facility] 12/05/21 Branch at 2245, Until Discontinu ed, Routine methocarbam 2021-02 Yes 500mg 500 mg, Un tabitha oL 0-24 Oral, QID, ity of (ROBAXIN) 03:45: First dose [place] tablet 500 00 on [facility] mg 12/05/21 Branch at 2245, Until Discontinu ed, Routine methocarbam 2021-02 Yes 500mg 500 mg, Un tabitha oL 0-24 Oral, QID, ity of (ROBAXIN) 03:45: First dose [place] tablet 500 00 on [facility] mg 12/05/21 Branch at 2245, Until Discontinu ed, Routine methocarbam 2021-02 Yes 500mg 500 mg, Un tabitha oL 0-24 Oral, QID, ity of (ROBAXIN) 03:45: First dose [place] tablet 500 00 on [facility] mg 12/05/21 Branch at 2245, Until Discontinu ed, Routine insulin 2021-02 18U 18 Units, Univ ers glargine 0-24 10-24 Subcutaneo ity of (LANTUS 02:00: 13:57 , [facility], [place] U-100) 00 :32 First dose Medical injection (after Branch 18 Units last modificati on) on 12/05/21 at 2100, Until Discontinu ed, Routine lactated 2021-02 Yes 1000mL at 75 Univer s ringers IV 0-23 mL/hr, ity of infusion 23:45: 1,000 mL, [place] 1,000 mL 00 IV Medical Infusion, Branch CONTINUOUS , Starting on 12/05/21 at 1845, Until Discontinu ed, Routine, PACU lactated 2021-02 Yes 1000mL at 75 Univer s ringers IV 0-23 mL/hr, ity of infusion 23:45: 1,000 mL, [place] 1,000 mL 00 IV Medical Infusion, Branch CONTINUOUS , Starting on 12/05/21 at 1845, Until Discontinu ed, Routine, PACU lactated 2021-02 Yes 1000mL at 75 Univer s ringers IV 0-23 mL/hr, ity of infusion 23:45: 1,000 mL, [place] 1,000 mL 00 IV Medical Infusion, Branch CONTINUOUS , Starting on 12/05/21 at 1845, Until Discontinu ed, Routine, PACU ursodioL 2021-02 Yes 300mg Take 300 Univ ers 300 mg 0-23 mg by ity of capsule 19:28: mouth in [place] [address] the Medical morning Branch and 300 mg in the evening. predniSONE 2021-02 Yes 2.5mg Take 2.5 Un tabitha 2.5 mg 0-23 mg by ity of tablet 19:28: mouth in [place] [address] the Medical morning. Branch azaTHIOprin 2021-02 Yes 50mg Take 50 mg Univers e 50 mg 0-23 by mouth ity of tablet 19:28: in the [place] [address] morning. Medical Branch ursodioL 2021-02 Yes 300mg Take 300 Univ ers 300 mg 0-23 mg by ity of capsule 19:28: mouth in [place] [address] the Medical morning Branch and 300 mg in the evening. predniSONE 2021-02 Yes 2.5mg Take 2.5 Un tabitha 2.5 mg 0-23 mg by ity of tablet 19:28: mouth in [place] [address] the Medical morning. Branch azaTHIOprin 2021-02 Yes 50mg Take 50 mg Univers e 50 mg 0-23 by mouth ity of tablet 19:28: in the [place] [address] morning. Medical Branch insulin 2021-02- No 6U 6 Units, Unive rs lispro 0-23 10-24 Subcutaneo ity of (human) 17:00: 13:57 , TID [place] (HumaLOG 00 :32 MEALS, Medical U-100) First dose Branch injection 6 on Sun Units 12/05/21 at 1200, Until Discontinu ed, Routine insulin 2021-02- No 12U 12 Units, [facility] [place] [facility] ers glargine 0-23 10-23 Subcutaneo ity of (LANTUS 02:00: 13:42 us, Q, [place] U-100) 00 :28 First dose Medical injection (after Branch 12 Units last modificati on) on 12/04/21 at 2100, Until Discontinu ed, Routine lactated 2021-02- No 1000mL at 100 Univ ers ringers IV 0-22 10-23 mL/hr, ity of infusion 22:00: 21:59 1,000 mL, [place] 1,000 mL 00 :00 IV Medical Infusion, Branch CONTINUOUS , Starting on 12/04/21 at 1700, Until 12/05/21 at 1659, Routine vancomycin 2021-02 No 1250mg 1,250 mg, Univers 1,250 mg in 0-04 12- IV ity of NaCl 0.9% 20:45: 10:40 Piggyback, [place] (NS) 250 mL 00 :00 Q12H ABX, Med ical VIAL-MATE 4 doses, Branch IV First dose piggyback (after last modificati on) on 12/04/21 at 1545, Last dose on 12/06/21 at 0345, Administer over 90 Minutes, 250 mL
Reas on for Anti-Infec tive: Documented Infection< br>Documen ender Infection Site: Skin / Soft Tissue
Duration of Therapy: 7 days Sliding 2021-02 Yes [facility] [place] [facility] ers Scale 0-22 us, TID ity of Insulin - 17:00: MEALS+HS, [place] Lispro 00 First dose Medical (HumaLOG) + (after Branch Fsbg last Testing modificati on) on 12/04/21 at 1200, Until Discontinu ed, Routine [facility]iding 2021-02 [facility] us, TID ity of Insulin - 17:00: MEALS+HS, [place] Lispro 00 First dose Medical (HumaLOG) + (after Branch Fsbg last Testing modificati on) on 12/04/21 at 1200, Until Discontinu ed, Routine Sliding 2021-02 Yes [facility] us, TID ity of Insulin - 17:00: MEALS+HS, [place] Lispro 00 First dose Medical (HumaLOG) + (after Branch Fsbg last Testing modificati on) on 12/04/21 at 1200, Until Discontinu ed, Routine Sliding 2021-02 Yes [facility] 0-22 us, TID ity of Insulin - 17:00: MEALS+HS, [place] Lispro 00 First dose Medical (HumaLOG) + (after Branch Fsbg last Testing modificati on) on 12/04/21 at 1200, Until Discontinu ed, Routine sennosides 2021-02 Yes 8.6mg 8.6 mg, Uni vers (SENOKOT) 0- Oral, ity of tablet 8.6 14:00: DAILY, [place] mg 00 First dose Medical on Sat Branch 12/04/21 at 0900, Until Discontinu ed, Routine docusate 2021-02 Yes 100mg 100 mg, Unive rs (COLACE) 0-22 Oral, ity of capsule 100 14:00: DAILY, [place] mg 00 First dose Medical on [facility] 12/04/21 at 0900, Until Discontinu ed, Routine citalopram 2021-02 Yes 40mg 40 mg, Unive rs (CELEXA) 0-22 Oral, ity of tablet 40 14:00: DAILY, [place] mg 00 First dose Medical on [facility] 12/04/21 at 0900, Until Discontinu ed, Routine sennosides 2021-02 Yes 8.6mg 8.6 mg, Uni vers (SENOKOT) 0-22 Oral, ity of tablet 8.6 14:00: DAILY, [place] mg 00 First dose Medical on [facility] 12/04/21 at 0900, Until Discontinu ed, Routine docusate 2021-02 Yes 100mg 100 mg, Unive rs (COLACE) 0-22 Oral, ity of capsule 100 14:00: DAILY, [place] mg 00 First dose Medical on [facility] 12/04/21 at 0900, Until Discontinu ed, Routine citalopram 2021-02 Yes 40mg 40 mg, Unive rs (CELEXA) 0-22 Oral, ity of tablet 40 14:00: DAILY, [place] mg 00 First dose Medical on [facility] 12/04/21 at 0900, Until Discontinu ed, Routine sennosides 2021-02 Yes 8.6mg 8.6 mg, Uni vers (SENOKOT) 0-22 Oral, ity of tablet 8.6 14:00: DAILY, [place] mg 00 First dose Medical on [facility] 12/04/21 at 0900, Until Discontinu ed, Routine citalopram 2021-02 Yes 40mg 40 mg, Unive rs (CELEXA) 0-22 Oral, ity of tablet 40 14:00: DAILY, [place] mg 00 First dose Medical on [facility] 12/04/21 at 0900, Until Discontinu ed, Routine sennosides 2021-02 Yes 8.6mg 8.6 mg, Uni vers (SENOKOT) 0-22 Oral, ity of tablet 8.6 14:00: DAILY, [place] mg 00 First dose Medical on [facility] Branch 12/04/21 at 0900, Until Discontinu ed, Routine citalopram 2021-02 Yes 40mg 40 mg, Unive rs (CELEXA) 0-22 Oral, ity of tablet 40 14:00: DAILY, [place] mg 00 First dose Medical on [facility] Branch 12/04/21 at 0900, Until Discontinu ed, Routine docusate 2021-02 No 100mg 100 mg, Univ ers (COLACE) 0-12-08 Oral, ity of capsule 100 14:00: 13:27 DAILY, [place] mg 00 :37 First dose Medical on [facility] Branch 12/04/21 at 0900, Until Discontinu ed, Routine atorvastati 2021-02 Yes 40mg 40 mg, Univ ers n (LIPITOR) 0-22 Oral, QHS, it y of tablet 40 02:00: First dose [place] mg 00 on [facility] 12/03/21 Branch at 2100, Until Discontinu ed, Routine atorvastati 2021-02 Yes 40mg 40 mg, Univ ers n (LIPITOR) 0-22 Oral, QHS, it y of tablet 40 02:00: First dose [place] mg 00 on Mon [facility] 12/03/21 Branch at 2100, Until Discontinu ed, Routine atorvastati 2021-02 Yes 40mg 40 mg, Univ ers n (LIPITOR) 0-22 Oral, QHS, it y of tablet 40 02:00: First dose [place] mg 00 on [facility] 12/03/21 Branch at 2100, Until Discontinu ed, Routine atorvastati 2021-02 Yes 40mg 40 mg, Univ ers n (LIPITOR) 0-22 Oral, QHS, it y of tablet 40 02:00: First dose [place] mg 00 on [facility] 12/03/21 Branch at 2100, Until Discontinu ed, Routine metoprolol 2021-02 No 2.5mg 2.5 mg, Un tabitha (LOPRESSOR) 12-03 Intravenou i ty of injection 21:00: 21:24 s, Q10M, 3 [place] 2.5 mg 00 :00 doses, Medical First dose Branch on Mon12/03/21 at 1600, Last dose on Mon12/03/21 at 1620, Routine Sliding 2021-02- No Subcutaneo Uni vers Scale -12-04 us, TID ity of Insulin - 17:00: 15:52 MEALS+HS, [place] Lispro 00 :07 First dose Medical (HumaLOG) + on Mon Branch Fsbg 12/03/21 Testing at 1200, Until Discontinu ed, Routine insulin 2021-02- No 6U 6 Units, Unive rs glargine 12-04 Subcutaneo ity of (LANTUS 16:45: 01:05 us, BID, 2 [place] U-100) 00 :00 doses, Medical injection 6 First dose Br anch Units on Mon12/03/21 at 1145, Last dose on Mon12/03/21 at 2000, Routine hydroCHLORO 2021-02 Yes 12.5mg 12.5 mg, Univers thiazide 0-21 Oral, ity of (ESIDRIX) 16:00: DAILY, [place] capsule 00 First dose Medica l 12.5 mg (after Branch last modificati on) on Mon12/03/21 at 1100, Until Discontinu ed, Routine hydroCHLORO 2021-02 Yes 12.5mg 12.5 mg, Univers thiazide 0-21 Oral, ity of (ESIDRIX) 16:00: DAILY, [place] capsule 00 First dose Medica l 12.5 mg (after Branch last modificati on) on Mon12/03/21 at 1100, Until Discontinu ed, Routine hydroCHLORO 2021-02 Yes 12.5mg 12.5 mg, Univers thiazide 0-21 Oral, ity of (ESIDRIX) 16:00: DAILY, [place] capsule 00 First dose Medica l 12.5 mg (after Branch last modificati on) on Mon12/03/21 at 1100, Until Discontinu ed, Routine hydroCHLORO 2021-02 Yes 12.5mg 12.5 mg, Univers thiazide 0-21 Oral, ity of (ESIDRIX) 16:00: DAILY, [place] capsule 00 First dose Medica l 12.5 mg (after Branch last modificati on) on Mon12/03/21 at 1100, Until Discontinu ed, Routine omeprazole 2021-02 Yes 40mg 40 mg, Unive rs (PRILOSEC) 0-21 Oral, ity of capsule 40 15:45: DAILY, [place] mg 00 First dose Medical on Mon12/03/21 at 1045, Until Discontinu ed, Routine omeprazole 2021-02 Yes 40mg 40 mg, Unive rs (PRILOSEC) 0-21 Oral, ity of capsule 40 15:45: DAILY, [place] mg 00 First dose Medical on Mon12/03/21 at 1045, Until Discontinu ed, Routine omeprazole 2021-02 Yes 40mg 40 mg, Unive rs (PRILOSEC) 0-21 Oral, ity of capsule 40 15:45: DAILY, [place] mg 00 First dose Medical on Mon12/03/21 at 1045, Until Discontinu ed, Routine omeprazole 2021-02 Yes 40mg 40 mg, Unive rs (PRILOSEC) 0-21 Oral, ity of capsule 40 15:45: DAILY, [place] mg 00 First dose Medical on Mon12/03/21 at 1045, Until Discontinu ed, Routine dextrose 2021-02 Yes 250mL 250 mL, IV Un tabitha 10% (D10W) 0-21 Infusion, ity of bolus 15:30: PRN - SEE [place] infusion 32 INSTRUCTIO Medic al 250 mL NS, Branch Administer over 60 Minutes, Other, If blood glucose is < or = 70 mg/dL and patient is unable to swallow or has mental status changes, Starting on Mon12/03/21 at 1030
If blood glucose is < or = 70 mg/dL and patient is unable to swallow or has mental status changes (Give glucagon order if patient needs fluid restrictio n): IF IV access available: Dextrose 10%. 1. 125 mL (? bag) of D10W IV infusion - equivalent to 12.5 g dextrose 2. Blood glucose - draw blood glucose 15 minutes after D10W Administra tion. 3. If blood glucose is < 80 mg/dL, repeat.
dextrose 2021-02 Yes 250mL 250 mL, IV Un tabitha 10% (D10W) 0-21 Infusion, ity of bolus 15:30: PRN - SEE [place] infusion 32 INSTRUCTIO Medic al 250 mL NS, Branch Administer over 60 Minutes, Other, If blood glucose is < or = 70 mg/dL and patient is unable to swallow or has mental status changes, Starting on Mon12/03/21 at 1030
If blood glucose is < or = 70 mg/dL and patient is unable to swallow or has mental status changes (Give glucagon order if patient needs fluid restrictio n): IF IV access available: Dextrose 10%. 1. 125 mL (? bag) of D10W IV infusion - equivalent to 12.5 g dextrose 2. Blood glucose - draw blood glucose 15 minutes after D10W Administra tion. 3. If blood glucose is < 80 mg/dL, repeat.
dextrose 2021-02 Yes 250mL 250 mL, IV Un tabitha 10% (D10W) 0-21 Infusion, ity of bolus 15:30: PRN - SEE [place] infusion 32 INSTRUCTIO Medic al 250 mL NS, Branch Administer over 60 Minutes, Other, If blood glucose is < or = 70 mg/dL and patient is unable to swallow or has mental status changes, Starting on Mon12/03/21 at 1030
If blood glucose is < or = 70 mg/dL and patient is unable to swallow or has mental status changes (Give glucagon order if patient needs fluid restrictio n): IF IV access available: Dextrose 10%. 1. 125 mL (? bag) of D10W IV infusion - equivalent to 12.5 g dextrose 2. Blood glucose - draw blood glucose 15 minutes after D10W Administra tion. 3. If blood glucose is < 80 mg/dL, repeat.
dextrose 2021-02 Yes 250mL 250 mL, IV Un tabitha 10% (D10W) 0-21 Infusion, ity of bolus 15:30: PRN - SEE [place] infusion 32 INSTRUCTIO Medic al 250 mL NS, Branch Administer over 60 Minutes, Other, If blood glucose is < or = 70 mg/dL and patient is unable to swallow or has mental status changes, Starting on Mon12/03/21 at 1030
If blood glucose is < or = 70 mg/dL and patient is unable to swallow or has mental status changes (Give glucagon order if patient needs fluid restrictio n): IF IV access available: Dextrose 10%. 1. 125 mL (? bag) of D10W IV infusion - equivalent to 12.5 g dextrose 2. Blood glucose - draw blood glucose 15 minutes after D10W Administra tion. 3. If blood glucose is < 80 mg/dL, repeat.
glucagon 2021-02 Yes 1mg 1 mg, Univers (GLUCAGEN 0-21 Intramuscu ity of DIAGNOSTIC 15:30: lar, PRN, [place] KIT) 25 Starting Medical injection 1 on Mon Branch mg 12/03/21 at 1030, Until Discontinu ed, MALI, Blood Glucose < or = 70 mg/dL and patient is unable to swallow or has mental changes. glucagon 2021-02 Yes 1mg 1 mg, Univers (GLUCAGEN 0-21 Intramuscu ity of DIAGNOSTIC 15:30: [place], PRN, [place] KIT) 25 Starting Medical injection 1 on Mon Branch mg 12/03/21 at 1030, Until Discontinu ed, MALI, Blood Glucose < or = 70 mg/dL and patient is unable to swallow or has mental changes. glucagon 2021-02 Yes 1mg 1 mg, Univers (GLUCAGEN 0-21 Intramuscu ity of DIAGNOSTIC 15:30: [place], PRN, [place] KIT) 25 Starting Medical injection 1 on Mon Branch mg 12/03/21 at 1030, Until Discontinu ed, MALI, Blood Glucose < or = 70 mg/dL and patient is unable to swallow or has mental changes. glucagon 2021-02 Yes 1mg 1 mg, Univers (GLUCAGEN 0-21 Intramuscu ity of DIAGNOSTIC 15:30: lar, PRN, [place] KIT) 25 Starting Medical injection 1 on Mon Branch mg 12/03/21 at 1030, Until Discontinu ed, MALI, Blood Glucose < or = 70 mg/dL and patient is unable to swallow or has mental changes. labetaloL 2021-02 No 10mg 10 mg, Unive rs (NORMODYNE) 0-21 10-21 Slow IV ity of injection 15:13: 15:31 Push, [place] 10 mg 00 :00 ONCE, 1 Medical dose, On Branch Mon12/03/21 at 1015, Routine enoxaparin 2021-02 Yes 40mg 40 mg, Unive rs (LOVENOX) 0-21 Subcutaneo ity of injection 14:00: us, DAILY, [place] 40 mg 00 First dose Medical on Mon Branch 12/03/21 at 0900, Until Discontinu ed, Routine enoxaparin 2021-02 Yes 40mg 40 mg, Unive rs (LOVENOX) 0-21 Subcutaneo ity of injection 14:00: us, DAILY, [place] 40 mg 00 First dose Medical on Mon Branch 12/03/21 at 0900, Until Discontinu ed, Routine enoxaparin 2021-02 Yes 40mg 40 mg, Unive rs (LOVENOX) 0-21 Subcutaneo ity of injection 14:00: us, DAILY, [place] 40 mg 00 First dose Medical on Mon Branch 12/03/21 at 0900, Until Discontinu ed, Routine enoxaparin 2021-02 Yes 40mg 40 mg, Unive rs (LOVENOX) 0-21 Subcutaneo ity of injection 14:00: us, [place] 40 [place] 00 First dose Medical on Mon Branch 12/03/21 at 0900, Until Discontinu ed, Routine insulin 2021-02 2U/h 2 Units/hr Uni vers regular 12-03 (2 mL/hr), ity o f human 11:08: 16:37 IV Richi (HUMULIN R) 57 :10 Infusion, Med ical 100 Units TITRATE, Branch in D5W 100 Parameters mL infusion in Admin. Instr., Starting on Mon12/03/21 at 0608
PL EASE USE NORMOGLYCE TALI CALCULATOR &nbs p;For Patients WITHOUT ESRD: &nbs p;INITIA TION OF INSULIN DRIP:&nb sp; I f two consecutiv e blood glucose levels (BG) are at or above 180 mg/dL: begin continuous intravenou s infusion of regular Insulin (100 units/100 mL NS) at the following rate: as follows:&n bsp; 1 unit/hr (1 mL/hr.) if initial BG between 180 and 220 mg/dL OR 2 units/hr (2 mL/hr.) if initial BG above 220 mg/dL. &nbs p;Check BG at least every hour until three consecutiv e BG measuremen ts remain in the 140- 180 mg/dL range; BG monitoring may then change to every 2 hours if patient is otherwise stable. Go back to closer BG monitoring as soon as condition warrants. &nbs p; INSULIN RATE ADJUSTMENT INSTRUCTIO NS (to keep BG in the 140- 180 mg/dL range) &n bsp;FOR BLOOD GLUCOSE LESS THAN OR EQUAL THAN 70 MG/DL: Stop insulin infusion, notify ICU supervisor feed house, and treat using hypoglycem ia protocol. Once BG &n bsp;greate r than 80 mg/dL start monitoring glucose every hour. Restart Insulin infusion at HALF of prior rate only when TWO consecutiv e BG levels 1 hour apart are at or above 180 mg/dL. &nbs p;FOR BLOOD GLUCOSE BETWEEN 71-139 MG/DL:&nbs p; St op insulin and continue to check BG every hour.&nbsp ; Res tart insulin infusion at HALF of prior rate once BG is above 140 mg/dL.&nbs p; FO R BLOOD GLUCOSE BETWEEN 140-180 MG/DL: Monitor BG hourly; may recheck BG in 2 hours if BG has been stable within this range for THREE consecutiv e readings.& nbsp;&nbsp ;If BG is stable (+/- 20 mg/dL change) at 140-180 mg/dL, no insulin rate change is needed.&nb sp; If BG hourly levels decreasing by more than 20 mg/dL: DECREASE insulin rate by 1.0 unit/hr. If BG hourly levels increasing by more than 20 mg/dL: INCREASE insulin rate by 0.5 unit/hr.&n bsp; FOR BLOOD GLUCOSE ABOVE 180 MG/DL: Monitor BG hourly. If BG falls by less than 40 mg/dL from previous measure, increase insulin rate by 1 unit an hour if BG is between 180 and 220 mg/dL and by 2 units an hour if BG is above 220 mg/dL. Recheck BG in 1 hour.&nbsp ; If BG falls by 40 mg/dL or more from previous measure, then no rate change is needed.&nb sp; N otify ICU Convention Worker if BG remains above 220 mg/dL for longer than 4 hours despite treatment.
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
Reas on for Anti-Infec tive: Documented Infection< br>Documen ender Infection Site: Skin / Soft Tissue
Duration of Therapy: 7 days ceFEPIme 2021-02 No 1000mg 1,000 mg, U nivers (MAXIPIME) 012-10 IV ity of 1,000 mg in 08:00: 07:59 Piggyback, [place] NaCl 0.9% 00 :00 Q8H ABX, Medica l (NS) 50 mL 21 doses, Bran ch MINI-BAG First dose on Mon12/03/21 at 0300, Last dose on Mon12/09/21 at 1900, Administer over 4 Hours, 50 mL
Reas on for Anti-Infec tive: Documented Infection& lt;br>Docu mented Infection Site: Wound
D uration of Therapy: 7 days ceFEPIme 2021-02 No 1000mg 1,000 mg, U nivers (MAXIPIME) 012-10 IV ity of 1,000 mg in 08:00: 07:59 [place], [place] NaCl 0.9% 00 :00 Q8H ABX, Medica l (NS) 50 mL 21 doses, Bran ch MINI-BAG First dose on Mon12/03/21 at 0300, Last dose on Mon12/09/21 at 1900, Administer over 4 Hours, 50 mL
Reas on for Anti-Infec tive: Documented Infection& lt;br>Docu mented Infection Site: Wound
D uration of Therapy: 7 days ceFEPIme 2021-02 No 1000mg 1,000 mg, U nivers (MAXIPIME) 12-09 IV ity of 1,000 mg in 08:00: 13:06 [place], [place] NaCl 0.9% 00 :36 Q8H ABX, Medica l (NS) 50 mL 21 doses, Bran ch MINI-BAG First dose on Mon12/03/21 at 0300, Last dose on Mon12/09/21 at 1900, Administer over 4 Hours, 50 mL
Reas on for Anti-Infec tive: Documented Infection& lt;br>Docu mented Infection Site: Wound
D uration of Therapy: 7 days lactated 2021-02 No 1000mL at 999 Univ ers ringers IV 0- 10-21 mL/hr, ity of infusion 07:45: 11:32 1,000 mL, [place] 1,000 mL 00 :00 Intravenou Medic al s, ONCE, 1 Branch dose, On Mon12/03/21 at 0245, Routine clindamycin 2021-02 Yes 600mg 600 mg, IV Univers in 5 % 0 Piggyback, ity of dextrose 05:00: Q8H AB, [place] (CLEOCIN) 00 First dose Medi janis 600 mg/50 on Mon Branch mL IV 12/03/21 piggyback at 0000, RTU 600 mg Until Discontinu ed, Administer over 30 Minutes, 50 mL
Reas on for Anti-Infec tive: Empiric Therapy for Suspected Infection< br>Empiric Therapy Site: Skin / Soft tissue
Duration of therapy: 72 hours
R estricted use approved by: Necrotizin g fasciitis, necrotizin g skin and soft tissue infection, and Rama s gangrene to block toxin production clindamycin 2021-02 Yes 600mg 600 mg, IV Univers in 5 % 0-21 Piggyback, ity of dextrose 05:00: Q8H ABX, [place] (CLEOCIN) 00 First dose Medi janis 600 mg/50 on Fri Branch mL IV 12/03/21 piggyback at 0000, RTU 600 mg Until Discontinu ed, Administer over 30 Minutes, 50 mL
Reas on for Anti-Infec tive: Empiric Therapy for Suspected Infection< br>Empiric Therapy Site: Skin / Soft tissue
Duration of therapy: 72 hours
R estricted use approved by: Necrotizin g fasciitis, necrotizin g skin and soft tissue infection, and Rama s gangrene to block toxin production clindamycin 2021-02 No 600mg 600 mg, IV Univers in 5 % 0-12-09 Piggyback, ity of dextrose 05:00: 13:06 Q8H ABX, [place] (CLEOCIN[place] 00 :36 First dose Medi janis 600 mg/50 on Fri Branch mL IV 12/03/21 piggyback at 0000, RTU 600 mg Until Discontinu ed, Administer over 30 Minutes, 50 mL
Reas on for Anti-Infec tive: Empiric Therapy for Suspected Infection< br>Empiric Therapy Site: Skin / Soft tissue
Duration of therapy: 72 hours
R estricted use approved by: Necrotizin g fasciitis, necrotizin g skin and soft tissue infection, and Rama s gangrene to block toxin production piperacilli 2021-02 No 3.375g 3.375 g, Univers n-tazobacta 0-12-03 IV ity of m (ZOSYN) 04:45: 04:54 Piggyback, [place] 3.375 g in 00 :00 ONCE, 1 Medica l NaCl 0.9% dose, On Branch (NS) 50 mL [place] MINI-BAG 12/02/21 at 2345, Administer over 30 Minutes, 50 mL
Reas on for Anti-Infec tive: Documented Infection< br>Documen ender Infection Site: Skin / Soft Tissue
Duration of Therapy: 7 days ondansetron 2021-02- No 4mg 4 mg, Slow Univers (ZOFRAN 0-12-06 IV Push, ity of (PF)) 03:22: 03:44 Q6HPRN, [place] injection 4 49 :57 Starting Medi janis mg on [place] Branch 12/02/21 at 2222, Until 12/05/21 at 2244, Routine, Nausea and Vomiting (N/V) Sliding 2021-02- No Subcutaneo Uni vers Scale 0-21 10-21 us, TID ity of Insulin - 02:00: 10:09 MEALS+HS, [place] Lis[place] 00 :51 First dose Medical (HumaLOG) + on [facility] Branch Fsbg 12/02/21 Testing at 2100, Until Discontinu ed, Routine insulin 2021-02 No 11U 11 Units, Univ ers glargine 0-12-03 Subcutaneo ity of (LANTUS 02:00: 10:09 us, [facility], [place] U-100) 00 :51 First dose Medical injection on [facility] Branch 11 Units 12/02/21 at 2100, Until Discontinu ed, Routine ceFEPIme 2021-02- No 1000mg 1,000 mg, U nivers (MAXIPIME) 012-03 IV ity of 1,000 mg in 00:15: 01:56 [place], [place] NaCl 0.9% 00 :00 ONCE, 1 Medical (NS) 50 mL dose, On Branc h MINI-BAG [facility] 12/02/21 at 1915, Administer over 30 Minutes, 50 mL
Reas on for Anti-Infec tive: Documented Infection< br>Documen ender Infection Site: Wound<br&g t;Duration of Therapy: 10 days morpHINE (2021-02 Yes 2mg 2 mg, Slow Univers mg/mL) 0-20 IV Push, ity of injection 2 23:36: Q4HPRN, [place] mg 31 Starting Medical on [place] Branch 12/02/21 at 1836, Until Discontinu ed, Routine, Pain (scale 7-10) morpHINE (2021-02 Yes 2mg 2 mg, Slow Univers mg/mL) 0-20 IV Push, ity of injection 2 23:36: Q4HPRN, [place] mg 31 Starting Medical on [facility] Branch 12/02/21 at 1836, Until Discontinu ed, Routine, Pain (scale 7-10) morpHINE (2 2021-02 Yes 2mg 2 mg, Slow Univers mg/mL) 0-20 IV Push, ity of injection 2 23:36: Q4HPRN, [place] mg 31 Starting Medical on [facility] 12/02/21 at 1836, Until Discontinu ed, Routine, Pain (scale 7-10) morpHINE (2 2021-02 Yes 2mg 2 mg, Slow Univers mg/mL) 0-20 IV Push, ity of injection 2 23:36: Q4HPRN, [place] mg 31 Starting Medical on [facility] 12/02/21 at 1836, Until Discontinu ed, Routine, Pain (scale 7-10) traMADoL 2021-02- No 50mg 50 mg, Univer s (ULTRAM) 0- 10- Oral, ity of tablet 50 22:53: 22:52 Q8HPRN, [place] mg 39 :39 Starting Medical on [facility] Branch 12/02/21 at 1753, Until 12/04/21 at 1752, Routine, Pain (scale 4-6) acetaminoph 2021-02 Yes 650mg 650 mg, Un tabitha en 0-20 Oral, ity of (TYLENOL) 22:53: Q6HPRN, [place] tablet 650 31 Starting Medic al mg on [facility] 12/02/21 at 1753, Until Discontinu ed, Routine, Pain (scale 1-3) acetaminoph 2021-02 Yes 650mg 650 mg, Un tabitha en 0-20 Oral, ity of (TYLENOL) 22:53: Q6HPRN, [place] tablet 650 31 Starting Medic al mg on [facility] 12/02/21 at 1753, Until Discontinu ed, Routine, Pain (scale 1-3) acetaminoph 2021-02- No 650mg 650 mg, U nivers en 0-20 10- Oral, ity of (TYLENOL) 22:53: 16:12 Q6HPRN, [place] tablet 650 31 :49 Starting Medic al mg on [facility] 12/02/21 at 1753, Until 12/08/21 at 1112, Routine, Pain (scale 1-3) NaCl 0.9% 2021-02- No 1000mL at 999 Uni vers (NS) bolus 0-20 10-20 mL/hr, ity of infusion 21:15: 21:36 1,000 mL, [place] 1,000 mL 00 :00 IV Medical Infusion, Branch ONCE, 1 dose, On [place] 12/02/21 at 1615, STAT acetaminoph 2021-02- No 1000mg 1,000 mg, Univers en 0-20 10-20 Oral, ity of (TYLENOL) 19:15: 19:18 ONCE, 1 [place] tablet 00 :00 dose, On Medical 1,000 mg [place] Branch 12/02/21 at 1415, MALI vancomycin 2021-02- No 1000mg 1,000 mg, Univers (VANCOCIN) 0-20 10-20 IV ity of 1,000 mg in 19:15: 20:09 [facility], [place] NaCl 0.9% 00 :00 ONCE, 1 Medical (NS) 250 mL dose, On Bran ch VIAL-MATE [place] IV 12/02/21 piggyback at 1415, Administer over 60 Minutes, 250 mL
Reas on for Anti-Infec tive: Documented Infection< br>Documen ender Infection Site: Skin / Soft Tissue
Duration of Therapy: Other (see Comments) NaCl 0.9% 2021-02- No 1000mL at 999 Uni vers (NS) bolus 0-20 10-20 mL/hr, ity of infusion 19:15: 19:52 1,000 mL, [place] 1,000 mL 00 :00 IV Medical Infusion, Branch ONCE, 1 dose, On [place] 12/02/21 at 1415, STAT aspirin 325 2021-02 Yes 325mg Take 325 U nivers mg tablet 0-20 mg by ity of 18:34: mouth [place] 18 daily. Medical Branch omeprazole 2021-02 Yes 40mg Take 40 mg U nivers 40 mg 0-20 by mouth. ity of capsule 18:34: [place] 18 Medical Branch aspirin 325 2021-02 Yes 325mg Take 325 U nivers mg tablet 0-20 mg by ity of 18:34: mouth [place] 18 daily. Medical Branch omeprazole 2021-02 Yes 40mg Take 40 mg U nivers 40 mg 0-20 by mouth. ity of capsule 18:34: [address] aspirin 325 2021-02 Yes 325mg Take 325 U nivers mg tablet 0-20 mg by ity of 18:34: mouth [place] 18 daily. Medical Branch omeprazole 2021-02 Yes 40mg Take 40 mg U nivers 40 mg 0-20 by mouth. ity of capsule 18:34: [address] citalopram 2021-02- No 40mg Take 40 mg Univers (CELEXA) 40 0-20 10-20 by mouth ity of mg tablet 18:30: 00:00 daily. [place] 01 :00 [facility] citalopram 2021-02- No 40mg Take 40 mg Univers (CELEXA) 40 0-20 10-20 by mouth ity of mg tablet 18:30: 00:00 daily. [place] 01 :00 [facility] citalopram 2021-02- No 40mg Take 40 mg Univers (CELEXA) 40 0-20 10-20 by mouth ity of mg tablet 18:30: 00:00 daily. [place] 01 :00 [facility] citalopram 2021-02- No 40mg Take 40 mg Univers (CELEXA) 40 0-20 10-20 by mouth ity of mg tablet 18:30: 00:00 daily. [place] 01 :00 [facility] clindamycin 2021-02 No 600mg 600 mg, IV Univers in 5 % 12-01 Piggyback, ity of dextrose 04:45: 04:35 ONCE, 1 [place] (CLEOCIN) 00 :00 dose, On Medica l 600 mg/50 Tue Branch mL IV 11/30/21 piggyback at 2345, RTU 600 mg Administer over 30 Minutes, 50 mL
R fide for Anti-Infec tive: Documented Infection< br>Documen ender Infection Site: Skin / Soft Tissue
Duration of Therapy: 7 days
Re stricted use approved by: ED PROVIDER ondansetron 2021-02 No 4mg 4 mg, Slow Univers (ZOFRAN 0-01 12- IV Push, ity of (PF)) 04:15: 04:07 ONCE, 1 [place] injection 4 00 :00 dose, On Medi janis mg [facility] Branch 11/30/21 at 2315, MALI lactulose 2021-02 45mL 45 mL, Unive rs (CEPHULAC) 12-01 Oral, ity of solution 45 04:00: 04:04 ONCE, 1 [place] mL 00 :00 dose, On Medical [facility] 11/30/21 at 2300, MALI magnesium 2021-02 No 2g 2 g, IV Univ ers sulfate in 12-01 Piggyback, it y of water 2 03:45: 03:54 Administer [place] gram/50 mL 00 :00 over 60 Medica l (4 %) Minutes, Branch infusion 2 ONCE, 1 g dose, On 11/30/21 at 2245, Routine iopamidol 2021-02 No [id number] 79mL 79 mL, Univers (ISOVUE 12-01 [id number] Intravenou ity of 370-500 mL) 02:46: 03:00 s, ONCE, 1 [place] injection 00 :00 dose, On Medica l 79 mL [facility] Branch 11/30/21 at 2200, Routine NaCl 0.9% 2021-02 1000mL at 999 Uni vers (NS) bolus 12-01 mL/hr, ity of infusion 02:30: 03:46 1,000 mL, [place] 1,000 mL 00 :00 IV Medical Infusion, Branch ONCE, 1 dose, On Mon11/30/21 at 2130, MALI ondansetron 2021-02 No 4mg 4 mg, Slow Univers (ZOFRAN 12-01 IV Push, ity of (PF)) 01:45: 01:52 ONCE, 1 [place] injection 4 00 :00 dose, On Medi janis mg [facility] 11/30/21 at 2045, MALI ondansetron 2021-02 Yes [id number] 4mg Take 1 Univers 4 mg 0-18 tablet by ity of disintegrat 00:00: mouth [place] ing tablet 00 every 8 Medica l (eight) Branch hours as needed for Nausea and Vomiting (N/V). clindamycin 2021-02 Yes [id number] 300mg Take 1 Univers 300 mg 0-18 capsule by ity of capsule 00:00: mouth 4 [place] 00 (four) Medical times Branch daily. ondansetron 2021-02 Yes [id number] 4mg Take 1 Univers 4 mg 0-18 tablet by ity of disintegrat 00:00: mouth [place] ing tablet 00 every 8 Medica l (eight) Branch hours as needed for Nausea and Vomiting (N/V). ondansetron 2021-02 Yes [id number] 4mg Take 1 Univers 4 mg 0-18 tablet by ity of disintegrat 00:00: mouth [place] ing tablet 00 every 8 Medica l (eight) Branch hours as needed for Nausea and Vomiting (N/V). ondansetron 2021-02 Yes [id number] 4mg Take 1 Univers 4 mg 0-18 tablet by ity of disintegrat 00:00: mouth [place] ing tablet 00 every 8 Medica l (eight) Branch hours as needed for Nausea and Vomiting (N/V). ondansetron 2021-02- No [id number] 4mg Take 1 Univers 4 mg 0-18 11- tablet by ity of disintegrat 00:00: 00:00 [place] ing tablet 00 :00 every 8 Medica l (eight) Branch hours as needed for Nausea and Vomiting (N/V). lactulose 2021-02- No [id number] 45mL Take 45 mL Univers 10 gram/15 0-18 11- by mouth ity of mL oral 00:00: 00:00 in the [facility] 00 :00 morning Medical for 5 Branch days. docusate 2021-02- No [id number] 100mg Take 1 U nivers 100 mg 0-18 11- capsule by ity of capsule 00:00: 00:00 mouth in [place] 00 :00 the Medical morning Branch for 7 days. docusate 2021-02- No [id number] 100mg Take 1 U nivers 100 mg 0-18 10-26 capsule by ity of capsule 00:00: 04:59 mouth in [place] 00 :00 the Medical morning Branch for 7 days. docusate 2021-02- No [id number] 100mg Take 1 U nivers 100 mg 0-18 10-26 capsule by ity of capsule 00:00: 04:59 mouth in [place] 00 :00 the [facility] morning Branch for 7 days. docusate 2021-02- No [id number] 100mg Take 1 U nivers 100 mg 0-18 10-26 capsule by ity of capsule 00:00: 04:59 mouth in [place] 00 :00 the [facility] morning Branch for 7 days. docusate 2021-02- No [id number] 100mg Take 1 U nivers 100 mg 0-18 10-26 capsule by ity of capsule 00:00: 04:59 mouth in [place] 00 :00 the [facility] morning Branch for 7 days. lactulose 2021-02- No [id number] 45mL Take 45 mL Univers 10 gram/15 0-18 10-24 by mouth ity of mL oral 00:: 04:59 in the [place] solution 00 :00 morning Medical for 5 Branch days. bisacodyL 2021-02- No [id number] 10mg Insert 1 Univers (DULCOLAX, 0-18 10-24 Suppositor it y of BISACODYL,) 00:: :59 y into [place] 10 mg 00 :00 rectum Medical suppository once daily Br anch as needed for Constipati on or Constipati on unresolved by oral medication s for up to 5 days. lactulose 2021-02- No [id number] 45mL Take 45 mL Univers 10 gram/15 0-18 10-24 by mouth ity of mL oral 00:: 04:59 in the [place] solution 00 :00 morning Medical for 5 Branch days. lactulose 2021-02- No [id number] 45mL Take 45 mL Univers 10 gram/15 0-18 10-24 by mouth ity of mL oral 00:: 04:59 in the [place] solution 00 :00 morning Medical for 5 Branch days. lactulose 2021-02- No [id number] 45mL Take 45 mL Univers 10 gram/15 0-18 10-24 by mouth ity of mL oral 00:00: 04:59 in the [place] solution 00 :00 morning Medical for 5 Branch days. bisacodyL 2021-02- No [id number] 10mg Insert 1 Univers (DULCOLAX, 0-18 10-20 Suppositor it y of BISACODYL,) 00:00: 00:00 y into [place] 10 mg 00 :00 rectum Medical suppository once daily Br anch as needed for Constipati on or Constipati on unresolved by oral medication s for up to 5 days. clindamycin 2021-02- No [id number] 300mg Take 1 Univers 300 mg 0-18 10-20 capsule by ity of capsule 00:00: 00:00 mouth 4 [place] 00 :00 (four) Medical times Branch daily. bisacodyL 2021-02- No [id number] 10mg Insert 1 Univers (DULCOLAX, 0-18 10-20 Suppositor it y of BISACODYL,) 00:00: 00:00 y into [place] 10 mg 00 :00 rectum Medical suppository once daily Br anch as needed for Constipati on or Constipati on unresolved by oral medication s for up to 5 days. clindamycin 2021-02- No [id number] 300mg Take 1 Univers 300 mg 0-18 10-20 capsule by ity of capsule 00:00: 00:00 mouth 4 [place] 00 :00 ([facility]) Medical times Branch daily. bisacodyL 2021-02- No [id number] 10mg Insert 1 Univers (DULCOLAX, 0-18 10-20 Suppositor it y of BISACODYL,) 00:00: 00:00 y into [place] 10 mg 00 :00 rectum Medical suppository once daily Br anch as needed for Constipati on or Constipati on unresolved by oral medication s for up to 5 days. clindamycin 2021-02- No [id number] 300mg Take 1 Univers 300 mg 0-18 10-20 capsule by ity of capsule 00:00: 00:00 mouth 4 [place] 00 :00 (four) Medical times Branch daily. bisacodyL 2021-02- No [id number] 10mg Insert 1 Univers (DULCOLAX, 0-18 10-20 Suppositor it y of BISACODYL,) 00:00: 00:00 y into [place] 10 mg 00 :00 rectum Medical suppository once daily Br anch as needed for Constipati on or Constipati on unresolved by oral medication s for up to 5 days. clindamycin 2021-02- No [id number] 300mg Take 1 Univers 300 mg 0-18 10-20 capsule by ity of capsule 00:00: 00:00 mouth 4 [place] 00 :00 (four) Medical times Branch daily. clindamycin 2021-02- No [id number] 300mg Take 1 Univers 300 mg 0-18 10-18 capsule by ity of capsule 00:00: 00:00 mouth 4 [place] 00 :00 (four) Medical times Branch daily for 7 days. ursodioL 2022- No Elevated 600mg Q.5D Take [address] (ACTIGALL) 08-0523 alkaline capsules [facility] 300 mg 00:00: 23:59 phosphatase (600 mg Medical capsule 00 :00 level total) by Center mouth 2 (two) times daily. ursodioL 2022- No Elevated 600mg Q.5D Take [address] (ACTIGALL) 08-05 alkaline capsules [facility] 300 mg 00:00: 23:59 phosphatase (600 mg Medical capsule 00 :00 level total) by Center mouth 2 (two) times daily. ursodioL 2022- No Elevated 600mg Q.5D Take [address] (ACTIGALL) 08-05 alkaline capsules [facility] 300 mg 00:00: 23:59 phosphatase (600 mg Medical capsule 00 :00 level total) by Center mouth 2 (two) times daily. ursodioL 2022- No Elevated 600mg Q.5D Take [address] (ACTIGALL) 08-05 alkaline capsules [facility] 300 mg 00:00: 23:59 phosphatase (600 mg Medical capsule 00 :00 level total) by Center mouth 2 (two) times daily. ursodioL 2022- No Elevated 600mg Q.5D Take [address] (ACTIGALL) 08-05 alkaline capsules [facility] 300 mg 00:00: 23:59 phosphatase (600 mg Medical capsule 00 :00 level total) by Center mouth 2 (two) times daily. ursodioL 2022- No Elevated 600mg Q.5D Take [address] (ACTIGALL) 08-05-23 alkaline capsules [facility] 300 mg 00:00: 23:59 phosphatase (600 mg Medical capsule 00 :00 level total) by Center mouth 2 (two) times daily. citalopram Yes 40mg QD Take [address] (CELEXA) 40 6-22 by mouth [facility] MG tablet 11:53: daily. Medica l 29 Center omeprazole Yes 40mg QD Take [address] (PRILOSEC) 6-22 by mouth [facility] 40 MG 11:53: daily. Medical capsule 29 Center aspirin 81 Yes 81mg QD Take [address] MG EC 6-22 by mouth [facility] tablet 11:53: daily. Medical 29 Center insulin Yes Sliding [facility] 70/30, 6-22 Scale [facility] insulin 11:53: Subcutaneo Medi janis NPH-insulin 29 us TID Center regular, (NovoLIN 70/30 U-100 Insulin) 100 unit/mL (70-30) injection predniSONE Yes TAKE 4 [facility] (DELTASONE) 6-22 TABLETS BY Grace kes 5 MG tablet 11:53: MOUTH ONCE Medical 29 DAILY Center amitriptyli Yes 25mg QD Take [address] [facility] (ELAVIL) 6-22 by mouth Luke s 25 MG 11:53: nightly. Medical tablet 29 Center citalopram Yes 40mg QD Take [address] (CELEXA) 40 6-22 by mouth [facility] s MG tablet 11:53: daily. Medica l 29 [place] omeprazole Yes 40mg QD Take [address] (PRILOSEC) 6-22 by mouth [facility] 40 MG 11:53: daily. Medical capsule 29 [place] aspirin 81 Yes 81mg QD Take [address] MG EC 6-22 by mouth [facility] tablet 11:53: daily. [facility] 29 Center insulin Yes Sliding [facility] 70/30, 6-22 Scale [facility] insulin 11:53: Subcutaneo Medi janis NPH-insulin 29 us TID Center regular, (NovoLIN 70/30 U-100 Insulin) 100 unit/mL (70-30) injection predniSONE Yes TAKE 4 [facility] (DELTASONE) 6-22 TABLETS BY Grace kes 5 MG tablet 11:53: MOUTH ONCE Medical 29 DAILY Center amitriptyli Yes 25mg QD Take [address] (ELAVIL) 6-22 by mouth Luke s 25 MG 11:53: nightly. Medical tablet 29 Center citalopram Yes 40mg QD Take [address] (CELEXA) 40 6-22 by mouth Luke s MG tablet 11:53: daily. Medica l 29 Center omeprazole Yes 40mg QD Take [address] (PRILOSEC) 6-22 by mouth [facility] 40 MG 11:53: daily. Medical capsule 29 [place] aspirin 81 Yes 81mg QD Take [address] MG EC 6-22 by mouth [facility] tablet 11:53: daily. [facility] 29 [place] insulin Yes Sliding [facility] 70/30, 6-22 Scale [facility] insulin 11:53: Subcutaneo Medi janis NPH-insulin 29 us TID Center regular, (NovoLIN 70/30 U-100 Insulin) 100 unit/mL (70-30) injection predniSONE Yes TAKE 4 [facility] (DELTASONE) 6-22 TABLETS BY Grace kes 5 MG tablet 11:53: MOUTH ONCE Medical 29 DAILY Center amitriptyli Yes 25mg QD Take [address] [facility] (ELAVIL) 6-22 by mouth Luke s 25 MG 11:53: nightly. Medical tablet 29 [place] citalopram Yes 40mg QD Take [address] (CELEXA) 40 6-22 by mouth Luke s MG tablet 11:53: daily. Medica l 29 [place] omeprazole Yes 40mg QD Take [address] (PRILOSEC) 6-22 by mouth [facility] 40 MG 11:53: daily. Medical capsule 29 [place] aspirin 81 Yes 81mg QD Take [address] MG EC 6-22 by mouth [facility] tablet 11:53: daily. [facility] 29 [place] insulin Yes Sliding [facility] 70/30, 6-22 Scale [facility] insulin 11:53: Subcutaneo Medi janis NPH-insulin 29 us TID Center regular, (NovoLIN 70/30 U-100 Insulin) 100 unit/mL (70-30) injection predniSONE Yes TAKE 4 [facility] (DELTASONE) 6-22 TABLETS BY Grace kes 5 MG tablet 11:53: MOUTH ONCE Medical 29 DAILY Center amitriptyli Yes 25mg QD Take [address] ne (ELAVIL) 6-22 by mouth Luke s 25 MG 11:53: nightly. Medical tablet 29 Center citalopram Yes 40mg QD Take [address] (CELEXA) 40 6-22 by mouth Luke s MG tablet 11:53: daily. Medica l 29 Center omeprazole Yes 40mg QD Take [address] (PRILOSEC) 6-22 by mouth [facility] 40 MG 11:53: daily. Medical capsule 29 Center aspirin 81 Yes 81mg QD Take [address] MG EC 6-22 by [facility] tablet 11:53: daily. [facility] 29 Center insulin Yes Sliding [facility] 70/30, 6-22 Scale [facility] insulin 11:53: Subcutaneo Medi janis NPH-insulin 29 us TID Center regular, (NovoLIN 70/30 U-100 Insulin) 100 unit/mL (70-30) injection predniSONE Yes TAKE 4 [facility] (DELT[facility]ONE) 6-22 TABLETS BY Grace kes 5 MG tablet 11:53: MOUTH ONCE Medical 29 DAILY Center amitriptyli Yes 25mg QD Take [address] [facility] ne (ELAVIL) 6-22 by mouth Luke s 25 MG 11:53: nightly. Medical tablet 29 Center citalopram Yes 40mg QD Take [address] (CELEXA) 40 6-22 by mouth Luke s MG tablet 11:53: daily. Medica l 29 Center omeprazole Yes 40mg QD Take [address] (PRILOSEC) 6-22 by mouth [facility] 40 MG 11:53: daily. Medical capsule 29 [place] aspirin 81 Yes 81mg QD Take [address] MG EC 6-22 by mouth [facility] tablet 11:53: daily. [facility] 29 Center insulin Yes Sliding [facility] 70/30, 6-22 Scale [facility] insulin 11:53: Subcutaneo Medi janis NPH-insulin 29 us TID Center regular, (NovoLIN 70/30 U-100 Insulin) 100 unit/mL (70-30) injection predniSONE Yes TAKE 4 [facility] (DELTASONE) 6-22 TABLETS BY Grace kes 5 MG tablet 11:53: MOUTH ONCE Medical 29 DAILY Center amitriptyli 2021-0 Yes 25mg QD Take [address] [facility] (ELAVIL) 6-22 by mouth Luke s 25 MG 11:53: nightly. Medical tablet 29 Center lisinopril 2021-0 Yes 40mg QD Take [address] (PRINIVIL,Z 6-22 by mouth Luke s ESTRIL) 40 11:52: daily. Medic al MG tablet 50 Center liraglutide [address] [facility] (VICTOZA 6-22 subcutaneo [facility] 2-OLENA) 0.6 11:52: usly. Medica l mg/0.1 mL 50 Center (18 mg/3 mL) PnIj lisinopril 2-0 Yes 40mg QD Take [address] (PRINIVIL,Z 6-22 by mouth Luke s ESTRIL) 40 11:52: daily. Medic al MG tablet 50 Center liraglutide 2021-[address] [facility] (VICTOZA 6-22 subcutaneo [facility] 2-OLENA) 0.6 11:52: usly. Medica l mg/0.1 mL 50 Center (18 mg/3 mL) PnIj lisinopril 2-0 Yes 40mg QD Take [address] (PRINIVIL,Z 6-22 by mouth Luke s ESTRIL) 40 11:52: daily. Medic al MG tablet 50 Center liraglutide 2021-[address] [facility] (VICTOZA 6-22 subcutaneo [facility] 2-OLENA) 0.6 11:52: usly. Medica l mg/0.1 mL 50 Center (18 mg/3 mL) PnIj lisinopril 2022-0 Yes 40mg QD Take [address] (PRINIVIL,Z 6-22 by mouth Luke s ESTRIL) 40 11:52: daily. Medic al MG tablet 50 Center liraglutide 2-[address] [facility] (VICTOZA 6-22 subcutaneo [facility] 2-OLENA) 0.6 11:52: usly. Medica l mg/0.1 mL 50 Center (18 mg/3 mL) PnIj lisinopril 2022-0 Yes 40mg QD Take [address] (PRINIVIL,Z 6-22 by mouth Luke s ESTRIL) 40 11:52: daily. Medic al MG tablet 50 Center liraglutide 2021-[address] [facility] (VICTOZA 6-22 subcutaneo [facility] 2-OLENA) 0.6 11:52: usly. Medica l mg/0.1 mL 50 Center (18 mg/3 mL) PnIj lisinopril 2021-0 Yes 40mg QD Take [address] (PRINIVIL,Z 6-22 by mouth Luke s ESTRIL) 40 11:52: daily. Medic al MG tablet 50 Center liraglutide 2021-[address] [facility] (VICTOZA 6-22 subcutaneo [facility] 2-OLENA) 0.6 11:52: usly. Medica l mg/0.1 mL 50 Center (18 mg/3 mL) PnIj azaTHIOprin 2021-0 Yes 1{tbl} Take 1 Un tabitha e 50 mg 6-22 tablet by ity of tablet 00:00: mouth in [place] 00 the Medical morning. Branch azaTHIOprin 2021-0 Yes 1{tbl} Take 1 Un tabitha e 50 mg 6-22 tablet by ity of tablet 00:00: mouth in [place] the Medical morning. Branch azaTHIOprin 2021-0 Yes 1{tbl} Take 1 Un tabitha e 50 mg 6-22 tablet by ity of tablet 00:00: mouth in [place] the Medical morning. Branch azaTHIOprin 2021-0 Yes 1{tbl} Take 1 Un tabitha e 50 mg 6-22 tablet by ity of tablet 00:00: mouth in [place] the Medical morning. Branch azaTHIOprin 2021-0 Yes 1{tbl} Take 1 Un tabitha e 50 mg 6-22 tablet by ity of tablet 00:00: mouth in [place] the Medical morning. Branch azaTHIOprin 2-0 Yes 1{tbl} Take 1 Un tabitha e 50 mg 6-22 tablet by ity of tablet 00:00: mouth in [place] the Medical morning. Branch azaTHIOprin 2021-0 Yes 1{tbl} Take 1 Un tabitha e 50 mg 6-22 tablet by ity of tablet 00:00: mouth in [place] 00 the Medical morning. Branch azaTHIOprin 2022-0 Yes 1{tbl} Take 1 Un tabitha e 50 mg 6-22 tablet by ity of tablet 00:00: mouth in [place] 00 the Medical morning. Branch azaTHIOprin 2022-0 Yes 1{tbl} Take 1 Un tabitha e 50 mg 6-22 tablet by ity of tablet 00:00: mouth in [place] 00 the Medical morning. Branch azaTHIOprin 2022-0 Yes 1{tbl} Take 1 Un tabitha e 50 mg 6-22 tablet by ity of tablet 00:00: mouth in [place] 00 the Medical morning. Branch azaTHIOprin 2022-0 Yes 1{tbl} Take 1 Un tabitha e 50 mg 6-22 tablet by ity of tablet 00:00: mouth in [place] 00 the Medical morning. Branch azaTHIOprin 2022-0 Yes 1{tbl} Take 1 Un tabitha e 50 mg 6-22 tablet by ity of tablet 00:00: mouth in [place] 00 the Medical morning. Branch azaTHIOprin 2022-0 Yes 1{tbl} Take 1 Un tabitha e 50 mg 6-22 tablet by ity of tablet 00:00: mouth in [place] the Medical morning. Branch azaTHIOprin 2022-0 Yes 1{tbl} Take 1 Un tabitha e 50 mg 6-22 tablet by ity of tablet 00:00: mouth in [place] 00 the Medical morning. Branch azaTHIOprin 2022-0 Yes 1{tbl} Take 1 Un tabitha e 50 mg 6-22 tablet by ity of tablet 00:00: mouth in [place] 00 the Medical morning. Branch azaTHIOprin 2022-0 Yes 1{tbl} Take 1 Un tabitha e 50 mg 6-22 tablet by ity of tablet 00:00: mouth in [place] 00 the Medical morning. Branch azaTHIOprin 2022-0 Yes 1{tbl} Take 1 Un tabitha e 50 mg 6-22 tablet by ity of tablet 00:00: mouth in [place] 00 the Medical morning. Branch azaTHIOprin 2022-0 Yes 1{tbl} Take 1 Un tabitha e 50 mg 6-22 tablet by ity of tablet 00:00: mouth in [place] 00 the Medical morning. Branch azaTHIOprin 2022-0 Yes 1{tbl} Take 1 Un tabitha e 50 mg 6-22 tablet by ity of tablet 00:00: mouth in [place] 00 the Medical morning. Branch azaTHIOprin 2022-0 Yes 1{tbl} Take 1 Un tabitha e 50 mg 6-22 tablet by ity of tablet 00:00: mouth in [place] 00 the Medical morning. Branch azaTHIOprin 2022-0 Yes 1{tbl} Take 1 Un tabitha e 50 mg 6-22 tablet by ity of tablet 00:00: mouth in [place] 00 the Medical morning. Branch azaTHIOprin 2022-0 Yes 1{tbl} Take 1 Un tabitha e 50 mg 6-22 tablet by ity of tablet 00:00: mouth in [place] the Medical morning. Branch azaTHIOprin 2022-0 Yes 1{tbl} Take 1 Un tabitha e 50 mg 6-22 tablet by ity of tablet 00:00: mouth in [place] the Medical morning. Branch azaTHIOprin 2022-0 Yes 1{tbl} Take 1 Un tabitha e 50 mg 6-22 tablet by ity of tablet 00:00: mouth in [place] the Medical morning. Branch azaTHIOprin 2022-0 Yes 50mg Take 1 [facility] ers e 50 mg 6-22 tablet by ity of tablet 00:00: mouth in [place] the Medical morning. Branch azaTHIOprin 2022-0 Yes 50mg Take 1 [facility] ers e 50 mg 6-22 tablet by ity of tablet 00:00: mouth in [place] the Medical morning. Branch azaTHIOprin 2022-0 Yes 50mg Take 1 [facility] ers e 50 mg 6-22 tablet by ity of tablet 00:00: mouth in [place] the Medical morning. Branch azaTHIOprin 2022-0 Yes 50mg Take 1 [facility] ers e 50 mg 6-22 tablet by ity of tablet 00:00: mouth in [place] the Medical morning. Branch azaTHIOprin 2022-0 Yes 50mg Take 1 [facility] ers e 50 mg 6-22 tablet by ity of tablet 00:00: mouth in [place] 00 the Medical morning. Branch azaTHIOprin 2022-0 Yes 50mg Take 1 [facility] ers e 50 mg 6-22 tablet by ity of tablet 00:00: mouth in [place] 00 the Medical morning. Branch azaTHIOprin 2022-0 Yes 50mg Take 1 [facility] ers e 50 mg 6-22 tablet by ity of tablet 00:00: mouth in [place] 00 the Medical morning. Branch azaTHIOprin 2022-0 Yes 50mg Take 1 [facility] ers e 50 mg 6-22 tablet by ity of tablet 00:00: mouth in [place] 00 the Medical morning. Branch azaTHIOprin 2022-0 Yes 50mg Take 1 [facility] ers e 50 mg 6-22 tablet by ity of tablet 00:00: mouth in [place] 00 the Medical morning. Branch azaTHIOprin 2022-0 Yes 50mg Take 1 [facility] ers e 50 mg 6-22 tablet by ity of tablet 00:00: mouth in [place] 00 the Medical morning. Branch azaTHIOprin 2022-0 Yes 50mg Take 1 [facility] ers e 50 mg 6-22 tablet by ity of tablet 00:00: mouth in [place] 00 the Medical morning. Branch azaTHIOprin 2022-0 Yes 50mg Take 1 [facility] ers e 50 mg 6-22 tablet by ity of tablet 00:00: mouth in [place] 00 the Medical morning. Branch azaTHIOprin 2022-0 Yes 50mg Take 1 [facility] ers e 50 mg 6-22 tablet by ity of tablet 00:00: mouth in [place] 00 the Medical morning. Branch azaTHIOprin 2022-0 Yes 50mg Take 1 [facility] e 50 mg 6-22 tablet by ity of tablet 00:00: mouth in [place] 00 the Medical morning. Branch azaTHIOprin 2022-0 Yes 50mg Take 1 [facility] ers e 50 mg 6-22 tablet by ity of tablet 00:00: mouth in [place] 00 the Medical morning. Branch azaTHIOprin 2022-0 Yes 50mg Take 1 [facility] ers e 50 mg 6-22 tablet by ity of tablet 00:00: mouth in [place] 00 the Medical morning. Branch azaTHIOprin 2022-0 Yes 50mg Take 1 [facility] 50 mg 6-22 tablet by ity of tablet 00:00: mouth in [place] 00 the Medical morning. Branch azaTHIOprin 2022-0 Yes 50mg Take 1 [facility] 50 mg 6-22 tablet by ity of tablet 00:00: mouth in [place] 00 the Medical morning. Branch azaTHIOprin 2022-0 Yes 50mg Take 1 [facility] e 50 mg 6-22 tablet by ity of tablet 00:00: mouth in [place] 00 the Medical morning. Branch azaTHIOprin 2022-0 Yes 50mg Take 1 [facility] 50 mg 6-22 tablet by ity of tablet 00:00: mouth in [place] 00 the Medical morning. Branch azaTHIOprin 2022-0 Yes 50mg Take 1 [facility] e 50 mg 6-22 tablet by ity of tablet 00:00: mouth in [place] 00 the Medical morning. Branch azaTHIOprin 2022-0 Yes 50mg Take 1 [facility] 50 mg 6-22 tablet by ity of tablet 00:00: mouth in [place] the Medical morning. Branch azaTHIOprin 2022-0 Yes 50mg Take 1 [facility] 50 mg 6-22 tablet by ity of tablet 00:00: mouth in [place] the Medical morning. Branch azaTHIOprin 2022-0 Yes 50mg Take 1 [facility] 50 mg 6-22 tablet by ity of tablet 00:00: mouth in [place] the Medical morning. Branch azaTHIOprin 2022-0 Yes 50mg Take 1 [facility] 50 mg 6-22 tablet by ity of tablet 00:00: mouth in [place] the Medical morning. Branch azaTHIOprin 2022-0 Yes 50mg Take 1 [facility] 50 mg 6-22 tablet by ity of tablet 00:00: mouth in [place] the Medical morning. Branch azaTHIOprin 2022-0 Yes 50mg Take 1 [facility] 50 mg 6-22 tablet by ity of tablet 00:00: mouth in [place] the Medical morning. Branch azaTHIOprin 2022-0 Yes 50mg Take 1 [facility] 50 mg 6-22 tablet by ity of tablet 00:00: mouth in [place] the Medical morning. Branch azaTHIOprin 2022-0 Yes 50mg Take 1 [facility] 50 mg 6-22 tablet by ity of tablet 00:00: mouth in [place] the Medical morning. Branch azaTHIOprin 2022-0 Yes 50mg Take 1 [facility] 50 mg 6-22 tablet by ity of tablet 00:00: mouth in [place] the Medical morning. 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 (HCC) azaTHIOprin 2021-0 2022- No Hepatic 100mg QD Take [address] [facility] (Imuran) 6-04 08- cirrhosis tablets [facility] 50 mg 00:00: 23:59 due to (100 mg Medica l tablet 00 :00 primary total) by Cente r biliary mouth cholangitis daily. (HCC) azaTHIOprin 2021-0 2022- No Hepatic 100mg QD Take [address] [facility] (Imuran) 08-04 cirrhosis tablets [facility] 50 mg 00:00: 23:59 due to (100 mg Medica l tablet 00 :00 primary total) by Cente r biliary mouth cholangitis daily. (HCC) azaTHIOprin 2022- No Hepatic 100mg QD Take [address] [facility] (Imuran) 08-04 cirrhosis tablets [facility] 50 mg 00:00: 23:59 due to (100 mg Medica l tablet 00 :00 primary total) by Cente r biliary mouth cholangitis daily. (HCC) azaTHIOprin 2022- No Hepatic 100mg QD Take [address] [facility] (Imuran) 08-04 cirrhosis tablets [facility] 50 mg 00:00: 23:59 due to (100 mg Medica l tablet 00 :00 primary total) by Cente r biliary mouth cholangitis daily. (HCC) azaTHIOprin 2022- No Hepatic 100mg QD Take [address] [facility] (Imuran) 08-04 cirrhosis tablets [facility] 50 mg 00:00: 23:59 due to (100 mg Medica l tablet 00 :00 primary total) by Cente r biliary mouth cholangitis daily. (HCC) predniSONE Yes Elevated 2.5mg QD Take [address] [facility] (DELTASONE) 3-10 liver tablet [facility] 2.5 MG 00:00: enzymes (2.5 mg Medic al tablet 00 total) by Center mouth daily. predniSONE Yes Elevated 2.5mg QD Take [address] [facility] (DELTASONE) 3-10 liver tablet [facility] 2.5 MG 00:00: enzymes (2.5 mg Medic al tablet 00 total) by Center mouth daily. predniSONE Yes Elevated 2.5mg QD Take [address] [facility] (DELTASONE) 3-10 liver tablet [facility] 2.5 MG 00:00: enzymes (2.5 mg Medic al tablet 00 total) by Center mouth daily. predniSONE 0 Yes Elevated 2.5mg QD Take [address] [facility] (DELTASONE) 3-10 liver tablet [facility] 2.5 MG 00:00: enzymes (2.5 mg Medic al tablet 00 total) by Center mouth daily. predniSONE 2021- Yes Elevated 2.5mg QD Take [address] [facility] (DELTASONE) 3-10 liver tablet [facility] 2.5 MG 00:00: enzymes (2.5 mg Medic al tablet 00 total) by Center mouth daily. predniSONE Yes Elevated 2.5mg QD Take [address] [facility] (DELTASONE) 3-10 liver tablet [facility] 2.5 MG 00:00: enzymes (2.5 mg Medic al tablet 00 total) by Center mouth daily. Augmentin Augmentin 2021- No 1{table BID Augmentin 875-125 MG 875-125 MG 02-24 t} 875-125 MG 00:00: 00:00 00 :00 Gabapentin Gabapentin 2020-02 No 1{capsu BID Gabapentin 300 MG 300 MG -22 le} 300 MG 00:00: 00 Gabapentin Gabapentin 2020-02 No 1{capsu BID Gabapentin 300 MG 300 MG -22 le} 300 MG 00:00: 00 Gabapentin Gabapentin 2020-02 No 1{capsu BID Gabapentin 300 MG 300 MG 22 le} 300 MG 00:00: 00 Gabapentin Gabapentin 2020-02 No 1{capsu BID Gabapentin 300 MG 300 MG -22 le} 300 MG 00:00: 00 Gabapentin Gabapentin 2020-02 No 1{capsu BID Gabapentin 300 MG 300 MG 22 le} 300 MG 00:00: 00 predniSONE 2020-02- No Elevated Take [address] [facility] (DELTASONE) 1-04 03-10 liver tablet by L [facility] 2.5 MG 00:00: 00:00 enzymes mouth once M edical tablet 00 :00 daily [place] predniSONE 2020-02- No Elevated Take [address] [facility] (DELTASONE) 1-04 03-10 liver tablet by L [facility]kes 2.5 MG 00:00: 00:00 enzymes mouth once M edical tablet 00 :00 daily Center predniSONE 2020-02- No Elevated Take [address] [facility] (DELTASONE) 1-04 03-10 liver tablet by L ukes 2.5 MG 00:00: 00:00 enzymes mouth once M edical tablet 00 :00 daily [place] Glimepiride Glimepiride 2020-02 No 1{table QD Glimepirid 1 MG 1 MG 02-13 t_with_ e 1 MG 00:00: breakfa 00 st_or_t he_firs t_main_ meal_of _the_da y} Glimepiride Glimepiride 2020-02 No 1{table QD Glimepirid 1 MG 1 MG 02-13 t_with_ e 1 MG 00:00: break st_or_t he_firs t_main_ meal_of _the_da y} Glimepiride Glimepiride 2020-02 No 1{table QD Glimepirid 2 MG 2 MG 02-13 t_with_ e 2 MG 00:00: break st_or_t he_firs t_main_ meal_of _the_da y} Glimepiride Glimepiride 2020-02 No 1{table QD Glimepirid 2 MG 2 MG 02-13 t_with_ e 2 MG 00:00: break st_or_t he_firs t_main_ meal_of _the_da y} Glimepiride Glimepiride 2020-02 No 1{table QD Glimepirid 2 MG 2 MG 02-13 t_with_ e 2 MG 00:00: break st_or_t he_firs t_main_ meal_of _the_da y} Glimepiride Glimepiride 2020-02 No 1{table QD Glimepirid 2 MG 2 MG 02-13 t_with_ e 2 MG 00:00: break st_or_t he_firs t_main_ meal_of _the_da y} Glimepiride Glimepiride 2020-02 No 1{table QD Glimepirid 2 MG 2 MG 02-13 t_with_ e 2 MG 00:00: st_or_t he_firs t_main_ meal_of _the_da y} Tradjenta 5 Tradjenta 5 2020-02 No 1{table QD Tradjenta MG MG 0-21 t} 5 MG 00:00: 00 Januvia 100 Januvia 100 2020-02 No 1{table QD Januvia MG MG 0-21 t} 100 MG 00:00: 00 gadobenate 2020- No [id number] .2mL/kg 0.2 mL/kg, [facility] dimeglumine 11-09 Intravenou i ty of (MULTIHANCE 21:45: 21:43 s, ONCE, 1 [place] -20 mL) 00 :00 dose, On Medical injection Mon Branch 0.2 mL/kg 11/09/20 at 1645, Routine ursodioL 2021- No Elevated 600mg Q.5D Take [address] (ACTIGALL) 11-02 alkaline capsules [facility] 300 mg 00:00: 00:00 phosphatase (600 mg Medical capsule 00 :00 level total) by Center mouth 2 (two) times daily. ursodioL 2021- No Elevated 600mg Q.5D Take [address] (ACTIGALL) 11-02 alkaline capsules [facility] 300 mg 00:00: 00:00 phosphatase (600 mg Medical capsule 00 :00 level total) by Center mouth 2 (two) times daily. ursodioL 2021- No Elevated 600mg Q.5D Take [address] (ACTIGALL) 11-02 alkaline capsules [facility] 300 mg 00:00: 00:00 phosphatase (600 mg Medical capsule 00 :00 level total) by Center mouth 2 (two) times daily. azaTHIOprin 2021- No Elevated 100mg QD Take [address] [facility] (Imuran) 09-09- liver tablets [facility] 50 mg 00:00: 00:00 enzymes (100 mg Medic al tablet 00 :00 total) by Center mouth daily. azaTHIOprin 2021- No Elevated 100mg QD Take [address] [facility] (Imuran) 09-09- liver tablets [facility] 50 mg 00:00: 00:00 enzymes (100 mg Medic al tablet 00 :00 total) by Center mouth daily. azaTHIOprin 2021- No Elevated 100mg QD Take [address] [facility] (Imuran) 09-09- liver tablets [facility] 50 mg 00:00: 00:00 enzymes (100 mg Medic al tablet 00 :00 total) by Center mouth daily. famotidine Yes 20mg Q.5D Take 1 [facility] (PE[facility] 20 1-15 tablet (20 [facility] kes MG tablet 00:00: mg total) Med ical 00 by mouth 2 Center (two) times daily. famotidine 2021-0 Yes 20mg Q.5D Take 1 [facility] (PE[facility]) 20 1-15 tablet (20 Grace kes MG tablet 00:00: mg total) Med ical 00 by mouth 2 Center (two) times daily. famotidine 1-0 Yes 20mg Q.5D Take 1 [facility] (PEPCID) 20 1-15 tablet (20 Grace kes MG tablet 00:00: mg total) Med ical 00 by mouth 2 Center (two) times daily. famotidine 1-0 Yes 20mg Q.5D Take 1 [facility] (PEPCID) 20 1-15 tablet (20 Grace kes MG tablet 00:00: mg total) Med ical 00 by mouth 2 Center (two) times daily. famotidine 1-0 Yes 20mg Q.5D Take 1 [facility] (PEPCID) 20 1-15 tablet (20 Grace kes MG tablet 00:00: mg total) Med ical 00 by mouth 2 Center (two) times daily. famotidine 2020-0 Yes 20mg Q.5D Take 1 [facility] (PEPCID) 20 1-15 tablet (20 Grace kes MG tablet 00:00: mg total) Med ical 00 by mouth 2 Center (two) times daily. traMADoL 50 2019-02- No 4647 50mg Take 1 [facility] vers mg tablet 0-28 11-05 tablet by ity of 00:00: 05:59 mouth [place] 00 :00 every 8 Medical (eight) Branch hours as needed for Pain (scale 4-6) for up to 7 days. Indication s: acute pain traMADoL 50 2019-02- No 4647 50mg Take 1 [facility] vers mg tablet 0-28 11-05 tablet by ity of 00:00: 05:59 mouth [place] 00 :00 every 8 Medical (eight) Branch hours as needed for Pain (scale 4-6) for up to 7 days. Indication s: acute pain atorvastati 2019-02 Yes TAKE [address] [facility] (LIPITOR) 0-08 TABLET BY Nicole es 40 MG 00:00: MOUTH Medical tablet 00 EVERY DAY Center AT BEDTIME FOR 90 DAYS atorvastati 2019-02 Yes TAKE [address] [facility] (LIPITOR) 0-08 TABLET BY Nicole es 40 MG 00:00: MOUTH Medical tablet 00 EVERY DAY Center AT BEDTIME FOR 90 DAYS atorvastati 2019-02 Yes TAKE [address] [facility] (LIPITOR) 0-08 TABLET BY Nicole es 40 MG 00:00: MOUTH Medical tablet 00 EVERY DAY Center AT BEDTIME FOR 90 DAYS atorvastati 2019-02 Yes TAKE [address] [facility] (LIPITOR) 0-08 TABLET BY Nicole es 40 MG 00:00: MOUTH Medical tablet 00 EVERY DAY Center AT BEDTIME FOR 90 DAYS atorvastati 2019-02 Yes TAKE [address] [facility] (LIPITOR) 0-08 TABLET BY Nicole es 40 MG 00:00: MOUTH Medical tablet 00 EVERY DAY Center AT BEDTIME FOR 90 DAYS atorvastati 2019-02 Yes TAKE [address] [facility] (LIPITOR) 0-08 TABLET BY Nicole es 40 MG 00:00: MOUTH Medical tablet 00 EVERY DAY Center AT BEDTIME FOR 90 DAYS Debrox 6.5 Debrox 6.5 2019-0 2020- No 5{drops BID Debrox 6.5 % % 9-23 10-03 _into_a % 00:00: 00:00 ffected 00 :00 _ear} Debrox 6.5 Debrox 6.5 2020-0 2020- No 5{drops BID Debrox 6.5 % % 9-23 10-03 _into_a % 00:00: 00:00 ffected 00 :00 _ear} aspirin 325 2019-0 Yes 325mg Take 325 [facility] nivers mg tablet 9-10 mg by ity of 21:31: mouth [place] [address] daily. Medical Branch citalopram 2019-0 Yes 40mg Take 40 mg [facility] (CELEXA) 40 9-10 by mouth ity of mg tablet 21:31: daily. [address] Branch omeprazole 2020-0 Yes 40mg Take 40 mg U nivers 40 mg 9-10 by mouth. ity of capsule 21:31: [address] Branch aspirin 325 2020-0 Yes 325mg Take 325 [facility] nivers mg tablet 9-10 mg by ity of 21:31: mouth [place] 39 daily. Medical Branch citalopram 2020-0 Yes 40mg Take 40 mg [facility] (CELEXA) 40 9-10 by mouth ity of mg tablet 21:31: daily. [address] Branch omeprazole 2020-0 Yes 40mg Take 40 mg U nivers 40 mg 9-10 by mouth. ity of capsule 21:31: [place] [address] Medical Branch aspirin 325 2020-0 Yes 325mg Take 325 [facility] nivers mg tablet 9-10 mg by ity of 21:31: mouth [place] 39 daily. Medical Branch citalopram 2020-0 Yes 40mg Take 40 mg [facility] (CELEXA) 40 9-10 by mouth ity of mg tablet 21:31: daily. [place] [address] Medical Branch omeprazole 2020-0 Yes 40mg Take 40 mg U nivers 40 mg 9-10 by mouth. ity of capsule 21:31: [place] [address] Medical Branch aspirin 325 2020-0 Yes 325mg Take 325 [facility] nivers mg tablet 9-10 mg by ity of 21:31: mouth [place] 39 daily. Medical Branch citalopram 2020-0 Yes 40mg Take 40 mg [facility] (CELEXA) 40 9-10 by mouth ity of mg tablet 21:31: daily. [place] [address] Medical Branch omeprazole 2020-0 Yes 40mg Take 40 mg U nivers 40 mg 9-10 by mouth. ity of capsule 21:31: [place] [address] Medical Branch aspirin 325 2020-0 Yes 325mg Take 325 [facility] nivers mg tablet 9-10 mg by ity of 21:31: mouth [place] 39 daily. Medical Branch citalopram 2020-0 Yes 40mg Take 40 mg [facility] (CELEXA) 40 9-10 by mouth ity of mg tablet 21:31: daily. [place] [address] Medical Branch omeprazole 2020-0 Yes 40mg Take 40 mg [facility] nivers 40 mg 9-10 by mouth. ity of capsule 21:31: [place] [address] Medical Branch aspirin 325 2020-0 Yes 325mg Take 325 [facility] n[facility] mg tablet 9-10 mg by ity of 21:31: mouth [place] 39 daily. Medical Branch citalopram 2020-0 Yes 40mg Take 40 mg [facility] (CELEXA) 40 9-10 by mouth ity of mg tablet 21:31: daily. [place] [address] Medical Branch omeprazole 2020-0 Yes 40mg Take 40 mg [facility] 40 mg 9-10 by mouth. ity of capsule 21:31: [place] [address] Medical Branch aspirin 325 2020-0 Yes 325mg Take 325 [facility] mg tablet 9-10 mg by ity of 21:31: mouth [place] 39 daily. Medical Branch citalopram 2020-0 Yes 40mg Take 40 mg [facility] (CELEXA) 40 9-10 by mouth ity of mg tablet 21:31: daily. [place] [address] Medical Branch omeprazole 2020-0 Yes 40mg Take 40 mg [facility] 40 mg 9-10 by mouth. ity of capsule 21:31: [place] [address] Medical Branch aspirin 325 2020-0 Yes 325mg Take 325 [facility] mg tablet 9-10 mg by ity of 21:31: mouth [place] 39 daily. Medical Branch citalopram 2020-0 Yes 40mg Take 40 mg [facility] (CELEXA) 40 9-10 by mouth ity of mg tablet 21:31: daily. [place] [address] Medical Branch omeprazole 2020-0 Yes 40mg Take 40 mg [facility] 40 mg 9-10 by mouth. ity of capsule 21:31: [place] [address] Medical Branch aspirin 325 2020-0 Yes 325mg Take 325 [facility] mg tablet 9-10 mg by ity of 21:31: mouth [place] 39 daily. Medical Branch citalopram 2020-0 Yes 40mg Take 40 mg [facility] (CELEXA) 40 9-10 by mouth ity of mg tablet 21:31: daily. [place] [address] Medical Branch omeprazole 2020-0 Yes 40mg Take 40 mg [facility] 40 mg 9-10 by mouth. ity of capsule 21:31: [place] [address] Medical Branch aspirin 325 2020-0 Yes 325mg Take 325 [facility] mg tablet 9-10 mg by ity of 21:31: mouth [place] 39 daily. Medical Branch citalopram 2020-0 Yes 40mg Take 40 mg [facility] (CELEXA) 40 9-10 by mouth ity of mg tablet 21:31: daily. [place] [address] Medical Branch omeprazole 2020-0 Yes 40mg Take 40 mg [facility] 40 mg 9-10 by mouth. ity of capsule 21:31: [place] [address] Medical Branch aspirin 325 2020-0 Yes 325mg Take 325 [facility] mg tablet 9-10 mg by ity of 21:31: mouth [place] 39 daily. Medical Branch citalopram 2020-0 Yes 40mg Take 40 mg [facility] (CELEXA) 40 9-10 by mouth ity of mg tablet 21:31: daily. [place] [address] Medical Branch omeprazole 2020-0 Yes 40mg Take 40 mg [facility] 40 mg 9-10 by mouth. ity of capsule 21:31: [place] [address] Medical Branch aspirin 325 2020-0 Yes 325mg Take 325 [facility] mg tablet 9-10 mg by ity of 21:31: mouth [place] 39 daily. Medical Branch citalopram 2020-0 Yes 40mg Take 40 mg [facility] (CELEXA) 40 9-10 by mouth ity of mg tablet 21:31: daily. [place] [address] Medical Branch omeprazole 2020-0 Yes 40mg Take 40 mg [facility] 40 mg 9-10 by mouth. ity of capsule 21:31: [place] [address] Medical Branch aspirin 325 2020-0 Yes 325mg Take 325 [facility] n[facility] mg tablet 9-10 mg by ity of 21:31: mouth [place] 39 daily. Medical Branch citalopram 2020-0 Yes 40mg Take 40 mg [facility] (CELEXA) 40 9-10 by mouth ity of mg tablet 21:31: daily. [place] [address] Medical Branch omeprazole 2020-0 Yes 40mg Take 40 mg [facility] 40 mg 9-10 by mouth. ity of capsule 21:31: [place] [address] Medical Branch aspirin 325 2020-0 Yes 325mg Take 325 [facility] mg tablet 9-10 mg by ity of 21:31: mouth [place] 39 daily. Medical Branch citalopram 2020-0 Yes 40mg Take 40 mg U nivers (CELEXA) 40 9-10 by mouth ity of mg tablet 21:31: daily. [place] [address] Medical Branch omeprazole 2020-0 Yes 40mg Take 40 mg U nivers 40 mg 9-10 by mouth. ity of capsule 21:31: [place] [address] Medical Branch aspirin 325 2020-0 Yes 325mg Take 325 U nivers mg tablet 9-10 mg by ity of 21:31: mouth [place] 39 daily. Medical Branch citalopram 2020-0 Yes 40mg Take 40 mg U nivers (CELEXA) 40 9-10 by mouth ity of mg tablet 21:31: daily. [place] [address] Medical Branch omeprazole 2020-0 Yes 40mg Take 40 mg U nivers 40 mg 9-10 by mouth. ity of capsule 21:31: [place] [address] Medical Branch aspirin 325 2020-0 Yes 325mg Take 325 U nivers mg tablet 9-10 mg by ity of 21:31: mouth [place] 39 daily. Medical Branch citalopram 2020-0 Yes 40mg Take 40 mg U nivers (CELEXA) 40 9-10 by mouth ity of mg tablet 21:31: daily. [place] [address] Medical Branch omeprazole 2020-0 Yes 40mg Take 40 mg U nivers 40 mg 9-10 by mouth. ity of capsule 21:31: [place] [address] Medical Branch aspirin 325 2020-0 Yes 325mg Take 325 U nivers mg tablet 9-10 mg by ity of 16:31: mouth [place] 39 daily. Medical Branch citalopram 2020-0 Yes 40mg Take 40 mg U nivers (CELEXA) 40 9-10 by mouth ity of mg tablet 16:31: daily. [place] [address] Medical Branch omeprazole 2020-0 Yes 40mg Take 40 mg U nivers 40 mg 9-10 by mouth. ity of capsule 16:31: [place] [address] Medical Branch aspirin 325 2020-0 Yes 325mg Take 325 U nivers mg tablet 9-10 mg by ity of 16:31: mouth [place] 39 daily. Medical Branch citalopram 2020-0 Yes 40mg Take 40 mg U nivers (CELEXA) 40 9-10 by mouth ity of mg tablet 16:31: daily. [place] [address] Medical Branch omeprazole 2020-0 Yes 40mg Take 40 mg U nivers 40 mg 9-10 by mouth. ity of capsule 16:31: [place] [address] Medical Branch aspirin 325 2020-0 Yes 325mg Take 325 U nivers mg tablet 9-10 mg by ity of 16:31: mouth [place] 39 daily. Medical Branch citalopram 2020-0 Yes 40mg Take 40 mg U nivers (CELEXA) 40 9-10 by mouth ity of mg tablet 16:31: daily. [place] [address] Medical Branch omeprazole 2020-0 Yes 40mg Take 40 mg U nivers 40 mg 9-10 by mouth. ity of capsule 16:31: [place] [address] Medical Branch aspirin 325 2020-0 Yes 325mg Take 325 U nivers mg tablet 9-10 mg by ity of 16:31: mouth [place] 39 daily. Medical Branch citalopram 2020-0 Yes 40mg Take 40 mg U nivers (CELEXA) 40 9-10 by mouth ity of mg tablet 16:31: daily. [place] [address] Medical Branch omeprazole 2020-0 Yes 40mg Take 40 mg U nivers 40 mg 9-10 by mouth. ity of capsule 16:31: [place] 39 Medical Branch traMADoL 50 2020-0 2020- No [id number] 50mg Take 1 Uni vers mg tablet 10-23 tablet by ity of 00:00: 04:59 mouth [place] 00 :00 every 6 Medical (six) Branch hours as needed for Pain (scale 4-6) for up to 7 days. Indication s: acute pain traMADoL 50 2020-0 2020- No [id number] 50mg Take 1 Uni vers mg tablet 10-23 tablet by ity of 00:00: 04:59 mouth [place] 00 :00 every 6 Medical (six) Branch hours as needed for Pain (scale 4-6) for up to 7 days. Indication s: acute pain aspirin 325 2020-0 Yes 325mg Take 325 U nivers mg tablet 8-25 mg by ity of 18:10: mouth [place] [address] daily. Medical Branch citalopram 2020-0 Yes 40mg Take 40 mg U nivers (CELEXA) 40 8-25 by mouth ity of mg tablet 18:10: daily. [place] [address] Medical Branch omeprazole 2020-0 Yes 40mg Take 40 mg U nivers 40 mg 8-25 by mouth. ity of capsule 18:10: [address] Branch lactated 2020-0 Yes 1000mL at 75 Univer s ringers IV 8-25 mL/hr, ity of infusion 17:00: 1,000 [place] 1[place]000 [place] 00 IV Medical Infusion, Branch CONTINUOUS , Starting Mon10/08/19 at 1200, Until Discontinu ed, Routine, PACU HYDROmorpho 2020-0 Yes .2mg 0.2 mg, Uni vers ne 8-25 Slow IV ity of (DILAUDID) 16:54: Push, [place] injection 14 Q5MIN PRN, Medi janis 0.2 mg 10 doses, Branch Starting Mon10/08/19 at 1154, Until Discontinu ed, Routine, Pain (scale 7-10), PACU
Us e approved by (Faculty): PACU USE -ANESTHESI A SERVICE-HY DROMORPHON E INJECTIONS FENTanyl PF 2020-0 Yes 25ug 25 mcg, Uni vers (SUBLIMAZE 8-25 Slow IV ity of (PF)) 16:54: Push, [place] injection 14 Q5MIN PRN, Medi janis 25 mcg 4 doses, Branch Starting 8/25/20 at 1154, Until Discontinu ed, Routine, Pain (scale 4-6), PACU ondansetron 2019- No 4mg 4 mg, Slow Univers (ZOFRAN 10-07 IV Push, ity of (PF)) 16:54: 17:29 PRN, 1 [place] injection 4 14 :00 dose, Medical mg Starting Branch e 10/08/19 at 1154, Until Discontinu ed, Routine, Nausea and Vomiting (N/V), PACU hydrogen 2020-0 Yes PRN, Univers peroxide 3 10-07 Starting ity o f % topical 16:33: Tue [place] solution 00 10/08/19 at Medic al 1133, Branch Until Discontinu ed, Routine, Intra-op povidone-io 2020-0 Yes PRN, Univer s dine 10-07 Starting ity of (BETADINE) 16:33: e [place] 10 % 10/08/19 at Medical solution 1133, Branch Until Discontinu ed, Routine, Intra-op lactated 2019-2019- No 1000[facility] at [facility] 10-07 08- mL/hr, ity of infusion 13:30: 14:15 1,000 mL, [place] 1,000 mL 00 :00 IV Medical Infusion, Branch ONCE, 1 dose, Mon10/08/19 at 0830, Routine, [facility] Pre-op methocarbam 2020-0 2020- No [id number] 500mg Take 1 Univers oL 500 mg 10-07 tablet by ity of tablet 00:00: 04:59 mouth 4 [place] 00 :00 (four) Medical times Branch daily for 21 days. gabapentin 2020-0 2020- No [id number] 300mg Take 1 [facility] 300 mg 10-07 capsule by ity of capsule 00:00: 04:59 mouth 3 [place] 00 :00 (three) Medical times Branch daily for 21 days. methocarbam 2020-0 2020- No [id number] 500mg Take 1 Univers oL 500 mg 10-07 tablet by ity of tablet 00:00: 04:59 mouth 4 [place] 00 :00 (four) Medical times Branch daily for 21 days. gabapentin 2020-0 2020- No [id number] 300mg Take 1 [facility] 300 mg 810-29 capsule by ity of capsule 00:00: 04:59 mouth 3 [place] 00 :00 (three) Medical times Branch daily for 21 days. methocarbam 2020-0 2020- No [id number] 500mg Take 1 [facility] oL 500 mg 10-07 tablet by ity of tablet 00:00: 04:59 mouth 4 [place] 00 :00 (four) Medical times Branch daily for 21 days. gabapentin 2020-0 2020- No [id number] 300mg Take 1 [facility] 300 mg 10-07 capsule by ity of capsule 00:00: 04:59 mouth 3 [place] 00 :00 (three) Medical times Branch daily for 21 days. traMADoL 50 2019-0 2020- No [id number] 50mg Take 1 Uni vers mg tablet 10-07 tablet by ity of 00:00: 04:59 mouth [place] 00 :00 every 6 Medical (six) Branch hours as needed for Pain (scale 7-10) for up to 7 days. Indication s: acute pain aspirin 325 2020-0 Yes 325mg Take 325 U nivers mg tablet 8-14 mg by ity of 17:49: mouth [place] daily. Medical Branch citalopram 2019-0 Yes 40mg Take 40 mg U nivers (CELEXA) 40 8-14 by mouth ity of mg tablet 17:49: daily. [place] [facility] Branch omeprazole 2020-0 Yes 40mg Take 40 mg U nivers 40 mg 8-14 by mouth. ity of capsule 17:49: [place] [facility] Branch aspirin 325 2020-0 Yes 325mg Take 325 U nivers mg tablet 8-14 mg by ity of 17:49: mouth [place] daily. Medical Branch citalopram 2020-0 Yes 40mg Take 40 mg U nivers (CELEXA) 40 8-14 by mouth ity of mg tablet 17:49: daily. [place] [facility] Branch omeprazole 2020-0 Yes 40mg Take 40 mg U nivers 40 mg 8-14 by mouth. ity of capsule 17:49: [place] [facility] Branch aspirin 325 2020-0 Yes 325mg Take 325 U nivers mg tablet 8-14 mg by ity of 17:49: mouth daily. Medical Branch citalopram 2020-0 Yes 40mg Take 40 mg U nivers (CELEXA) 40 8-14 by mouth ity of mg tablet 17:49: daily. [place] [facility] Branch omeprazole 2020-0 Yes 40mg Take 40 mg U nivers 40 mg 8-14 by mouth. ity of capsule 17:49: [place] 03 Medical Branch traMADol 50 2020-0 2020- No [id number] 50mg Take 1 Uni vers mg tablet 09-2218 tablet by ity of 00:00: 04:59 mouth [place] 00 :00 every 6 Medical (six) Branch hours as needed for Pain (scale 7-10) for up to 7 days. Indication s: acute pain traMADol 50 2019-0 2020- No [id number] 50mg Take 1 Uni vers mg tablet 09-22 tablet by ity of 00:00: 04:59 mouth [place] 00 :00 every 6 Medical (six) Branch hours as needed for Pain (scale 7-10) for up to 7 days. Indication s: acute pain traMADol 50 2019-0 2020- No [id number] 50mg Take 1 Uni vers mg tablet 09-22 tablet by ity of 00:00: 04:59 mouth [place] 00 :00 every 6 Medical (six) Branch hours as needed for Pain (scale 7-10) for up to 7 days. Indication s: acute pain traMADol 50 2019-0 2020- No [id number] 50mg Take 1 Uni vers mg tablet 09-22 tablet by ity of 00:00: 04:59 mouth [place] 00 :00 every 6 Medical (six) Branch hours as needed for Pain (scale 7-10) for up to 7 days. Indication s: acute pain ergocalcife 2020-0 2020- No [id number] Take [facility], 09-19 50,000 ity of vitamin d2, 00:00: 04:59 Units by [place] 2,500 unit 00 :00 mouth Medical Cap weekly for Branch 7 days. ergocalcife 2020-0 2020- No [id number] Take [facility], 09-19 50,000 ity of vitamin d2, 00:00: 04:59 Units by [place] 2,500 unit 00 :00 mouth Medical Cap weekly for Branch 7 days. ergocalcife 2020-0 2020- No [id number] Take [facility], 09-19 50,000 ity of vitamin d2, 00:00: 04:59 Units by [place] 2,500 unit 00 :00 mouth Medical Cap weekly for Branch 7 days. ergocalcife 2020-0 2020- No [id number] Take [facility], 09-19 50,000 ity of vitamin d2, 00:00: 04:59 Units by [place] 2,500 unit 00 :00 mouth Medical Cap weekly for Branch 7 days. ergocalcife 2020-0 2020- No [id number] Take [facility], 09-19 50,000 ity of vitamin d2, 00:00: 04:59 Units by [place] 2,500 unit 00 :00 mouth Medical Cap weekly for Branch 7 days. ergocalcife 2020-0 2020- No [id number] Take [facility], 09-19 50,000 ity of vitamin d2, 00:00: 04:59 Units by [place] 2,500 unit 00 :00 mouth Medical Cap weekly for Branch 7 days. ergocalcife 2020-0 2020- No [id number] Take [facility], 09-19 50,000 ity of vitamin d2, 00:00: 04:59 Units by [place] 2,500 unit 00 :00 mouth Medical Cap weekly for Branch 7 days. ergocalcife 2020-0 2020- No [id number] Take [facility], 09-19 50,000 ity of vitamin d2, 00:00: 04:59 Units by [place] 2,500 unit 00 :00 mouth Medical Cap weekly for Branch 7 days. ergocalcife 2020-0 2020- No [id number] Take [facility], 09-19 50,000 ity of vitamin d2, 00:00: 04:59 Units by [place] 2,500 unit 00 :00 mouth Medical Cap weekly for Branch 7 days. atorvastati 2019-0 Yes 40mg 40 mg, Univ ers n (LIPITOR) 8-01 Oral, QHS, it y of tablet 40 02:00: First dose [place] mg 00 on Mon Medical 09/13/19 at Branch 2100, Until Discontinu ed, Routine aspirin 325 2019-0 Yes 325mg Take 325 U nivers mg tablet 7-31 mg by ity of 20:36: mouth [place] 41 daily. Medical Branch citalopram 2019-0 Yes 40mg Take 40 mg U nivers (CELEXA) 40 7-31 by mouth ity of mg tablet 20:36: daily. [place] [address] Medical Branch omeprazole 2020-0 Yes 40mg Take 40 mg U nivers 40 mg 7-31 by mouth. ity of capsule 20:36: [place] [address] Medical Branch aspirin 325 2020-0 Yes 325mg Take 325 U nivers mg tablet 7-31 mg by ity of 20:36: mouth [place] 41 daily. Medical Branch citalopram 2020-0 Yes 40mg Take 40 mg U nivers (CELEXA) 40 7-31 by mouth ity of mg tablet 20:36: daily. [place] [address] Medical Branch omeprazole 2020-0 Yes 40mg Take 40 mg U nivers 40 mg 7-31 by mouth. ity of capsule 20:36: [place] [address] Medical Branch aspirin 325 2020-0 Yes 325mg Take 325 U nivers mg tablet 7-31 mg by ity of 20:36: mouth [place] 41 daily. Medical Branch citalopram 2020-0 Yes 40mg Take 40 mg U nivers (CELEXA) 40 7-31 by mouth ity of mg tablet 20:36: daily. [place] [address] Medical Branch omeprazole 2020-0 Yes 40mg Take 40 mg U nivers 40 mg 7-31 by mouth. ity of capsule 20:36: [place] [address] Medical Branch aspirin 325 2020-0 Yes 325mg Take 325 U nivers mg tablet 7-31 mg by ity of 20:36: mouth [place] 41 daily. Medical Branch citalopram 2020-0 Yes 40mg Take 40 mg U nivers (CELEXA) 40 7-31 by mouth ity of mg tablet 20:36: daily. [place] [address] Medical Branch omeprazole 2020-0 Yes 40mg Take 40 mg U nivers 40 mg 7-31 by mouth. ity of capsule 20:36: [place] [address] Medical Branch aspirin 325 2020-0 Yes 325mg Take 325 U nivers mg tablet 7-31 mg by ity of 20:36: mouth [place] 41 daily. Medical Branch citalopram 2020-0 Yes 40mg Take 40 mg U nivers (CELEXA) 40 7-31 by mouth ity of mg tablet 20:36: daily. [place] [address] Medical Branch omeprazole 2020-0 Yes 40mg Take 40 mg U nivers 40 mg 7-31 by mouth. ity of capsule 20:36: [place] [address] Medical Branch aspirin 325 2020-0 Yes 325mg Take 325 U nivers mg tablet 7-31 mg by ity of 20:36: mouth [place] [address] daily. Medical Branch citalopram 2020-0 Yes 40mg Take 40 mg U nivers (CELEXA) 40 7-31 by mouth ity of mg tablet 20:36: daily. [place] [address] Medical Branch omeprazole 2020-0 Yes 40mg Take 40 mg U nivers 40 mg 7-31 by mouth. ity of capsule 20:36: [place] [address] Medical Branch aspirin 325 2020-0 Yes 325mg Take 325 U nivers mg tablet 7-31 mg by ity of 20:36: mouth [place] 41 daily. Medical Branch citalopram 2020-0 Yes 40mg Take 40 mg U nivers (CELEXA) 40 7-31 by mouth ity of mg tablet 20:36: daily. [place] [address] Medical Branch omeprazole 2020-0 Yes 40mg Take 40 mg U nivers 40 mg 7- by mouth. ity of capsule 20:36: [place] [address] Medical Branch aspirin 325 2020-0 Yes 325mg Take 325 U nivers mg tablet 7-31 mg by ity of 20:36: mouth [place] [address] daily. Medical Branch citalopram 2020-0 Yes 40mg Take 40 mg U nivers (CELEXA) 40 7-31 by mouth ity of mg tablet 20:36: daily. [place] [address] Medical Branch omeprazole 2020-0 Yes 40mg Take 40 mg U nivers 40 mg 7-31 by mouth. ity of capsule 20:36: [place] [address] Medical Branch ergocalcife 2020-0 Yes [id number] 50,000 Un tabitha rol 09-12 Units, ity of (vitamin 15:36: Oral, [place] d2) 35 QWEEKLY, Medical (CALCIFEROL First dose Br anch ) capsule on Fri 50,000 09/13/19 at Units 1045, Until Discontinu ed, Routine sulfur 2020-0 2020- No 5mL 5 mL, Univers hexafluorid 09-12 Intravenou i ty of e microsphr 15:00: 14:50 s, ONCE, 1 [place] (LUMASON) 00 :00 dose, Fri Medic al injection 5 09/13/19 at Br anch mL 1000, Routine
member of congress approving Restricted medication : SUBHASH SIEGEL omeprazole 2020-0 Yes 40mg 40 mg, Unive rs (PRILOSEC) 09-12 Oral, ity of capsule 40 14:00: DAILY, [place] mg 00 First dose Medical on Mon Branch 09/13/19 at 0900, Until Discontinu ed citalopram 2020-0 Yes 40mg 40 mg, Unive rs (CELEXA) 09-12 Oral, ity of tablet 40 14:00: DAILY, [place] mg 00 First dose Medical on Mon Branch 09/13/19 at 0900, Until Discontinu ed, Routine aspirin 2020-0 Yes 325mg 325 mg, Univer s tablet 325 09-12 Oral, ity of mg 14:00: DAILY, [place] 00 First dose Medical on Mon Branch 09/13/19 at 0900, Until Discontinu ed, Routine enoxaparin 2019-0 Yes 40mg 40 mg, Unive rs (LOVENOX) 09-12 Subcutaneo ity of injection 14:00: us, DAILY, [place] 40 mg 00 First dose Medical on Mon Branch 09/13/19 at 0900, Until Discontinu ed, Routine hydralAZINE 2019-0 Yes 10mg 10 mg, Univ ers (APRESOLINE 09-12 Intravenou it y of ) injection 06:46: s, Q6HPRN, [place] 10 mg 05 Starting Medical Mon [place] 09/13/19 at 0146, Until Discontinu ed, Routine, Hypertensi on traMADol 2019-0 Yes 50mg 50 mg, Univers (ULTRAM) 09-12 Oral, ity of tablet 50 02:10: Q6HPRN, [place] mg 19 Starting Medical [facility] 09/12/19 at 2110, Until Discontinu ed, Routine, Pain (scale 4-6), Hold for SBP<110, DBP<60, RR<12, and/or drowsiness /sedation Sliding 2019-0 Yes Subcutaneo Univ ers Scale 09-12 us, AC+HS, ity of Insulin-Reg 02:00: First dose [place] ular + Fsbg 00 on [facility] [facility] Testing 09/12/19 at Branch 2100, Until Discontinu ed, Routine lisinopril 2019-0 2020- No [id number] 5mg Take 1 Univers 5 mg tablet 09-12 tablet by it y of 00:00: 04:59 mouth [place] 00 :00 daily for Medical 30 days. [place] lisinopril 2020-0 2020- No [id number] 5mg Take 1 Univers 5 mg tablet 7-31 08-31 tablet by it y of 00:00: 04:59 mouth [place] 00 :00 daily for Medical 30 days. Branch lisinopril 2020-0 2020- No [id number] 5mg Take 1 Univers 5 mg tablet 7-31 08-31 tablet by it y of 00:00: 04:59 mouth [place] 00 :00 daily for Medical 30 days. Branch lisinopril 2020-0 2020- No [id number] 5mg Take 1 Univers 5 mg tablet 7-31 08-31 tablet by it y of 00:00: 04:59 mouth [place] 00 :00 daily for Medical 30 days. Branch lisinopril 2020-0 2020- No [id number] 5mg Take 1 Univers 5 mg tablet 7-31 08-31 tablet by it y of 00:00: 04:59 mouth [place] 00 :00 daily for Medical 30 days. Branch lisinopril 2020-0 2020- No [id number] 5mg Take 1 Univers 5 mg tablet 7-31 08-31 tablet by it y of 00:00: 04:59 mouth [place] 00 :00 daily for Medical 30 days. Branch lisinopril 2020-0 2020- No [id number] 5mg Take 1 Univers 5 mg tablet 7-31 08-31 tablet by it y of 00:00: 04:59 mouth [place] 00 :00 daily for Medical 30 days. Branch lisinopril 2020-0 2020- No [id number] 5mg Take 1 Univers 5 mg tablet 7-31 08-31 tablet by it y of 00:00: 04:59 mouth [place] 00 :00 daily for Medical 30 days. Branch lisinopril 2020-0 2020- No [id number] 5mg Take 1 Univers 5 mg tablet 7-31 08-31 tablet by it y of 00:00: 04:59 mouth [place] 00 :00 daily for Medical 30 days. Branch lisinopril 2020-0 2020- No [id number] 5mg Take 1 Univers 5 mg tablet 7-31 08-31 tablet by it y of 00:00: 04:59 mouth [place] 00 :00 daily for Medical 30 days. Branch lisinopril 2020-0 2020- No [id number] 5mg Take 1 Univers 5 mg tablet 7-31 08-31 tablet by it y of 00:00: 04:59 mouth [place] 00 :00 daily for Medical 30 days. Branch lisinopril 2019-2019- No [id number] 5mg Take 1 Univers 5 mg tablet 7-31 08-31 tablet by it y of 00:00: 04:59 mouth [place] 00 :00 daily for Medical 30 days. Branch proMETHazin 2019-2019- No [id number] 25mg Take 1 Univers e 25 mg 7-31 08-21 tablet by ity of tablet 00:00: 04:59 mouth [place] 00 :00 every 6 Medical (six) Branch hours as needed for Nausea and Vomiting (N/V) for up to 20 days. proMETHazin 2019-2019- No [id number] 25mg Take 1 Univers e 25 mg 7-31 08-21 tablet by ity of tablet 00:00: 04:59 mouth [place] 00 :00 every 6 Medical (six) Branch hours as needed for Nausea and Vomiting (N/V) for up to 20 days. proMETHazin 2019-2019- No [id number] 25mg Take 1 Univers e 25 mg 7-31 08-21 tablet by ity of tablet 00:00: 04:59 mouth [place] 00 :00 every 6 Medical (six) Branch hours as needed for Nausea and Vomiting (N/V) for up to 20 days. proMETHazin 2019-2019- No [id number] 25mg Take 1 Univers e 25 mg 7-31 08-21 tablet by ity of tablet 00:00: 04:59 mouth [place] 00 :00 every 6 Medical (six) Branch hours as needed for Nausea and Vomiting (N/V) for up to 20 days. proMETHazin 2019-2019- No [id number] 25mg Take 1 Univers e 25 mg 7-31 08-21 tablet by ity of tablet 00:00: 04:59 mouth [place] 00 :00 every 6 Medical (six) Branch hours as needed for Nausea and Vomiting (N/V) for up to 20 days. proMETHazin 2019-2019- No [id number] 25mg Take 1 Univers e 25 mg 7-31 08-21 tablet by ity of tablet 00:00: 04:59 mouth [place] 00 :00 every 6 Medical (six) Branch hours as needed for Nausea and Vomiting (N/V) for up to 20 days. proMETHazin 2019-2019- No [id number] 25mg Take 1 Univers e 25 mg 7-31 08-21 tablet by ity of tablet 00:00: 04:59 mouth [place] 00 :00 every 6 Medical (six) Branch hours as needed for Nausea and Vomiting (N/V) for up to 20 days. proMETHazin 2020-0 2020- No [id number] 25mg Take 1 Univers e 25 mg 7-31 08-21 tablet by ity of tablet 00:00: 04:59 mouth [place] 00 :00 every 6 Medical (six) Branch hours as needed for Nausea and Vomiting (N/V) for up to 20 days. proMETHazin 2020-0 2020- No [id number] 25mg Take 1 Univers e 25 mg 7-31 08-21 tablet by ity of tablet 00:00: 04:59 mouth [place] 00 :00 every 6 Medical (six) Branch hours as needed for Nausea and Vomiting (N/V) for up to 20 days. amoxicillin 2020-0 2020- No [id number] 500mg Take 1 Univers 500 mg 7-31 08-06 tablet by ity of tablet 00:00: 04:59 mouth 2 [place] 00 :00 (two) Medical times Branch daily for 5 days. amoxicillin 2020-0 2020- No [id number] 500mg Take 1 Univers 500 mg 7-31 08-06 tablet by ity of tablet 00:00: 04:59 mouth 2 [place] 00 :00 (two) Medical times Branch daily for 5 days. amoxicillin 2020-0 2020- No [id number] 500mg Take 1 [facility] 500 mg 7-31 08-06 tablet by ity of tablet 00:00: 04:59 mouth 2 [place] 00 :00 (two) Medical times Branch daily for 5 days. ondansetron 2020-0 Yes 4mg 4 mg, Slow Univers (ZOFRAN 7-30 IV Push, ity of (PF)) 23:09: Q6HPRN, [place] injection 4 33 Starting Medi janis mg [place] Branch 09/12/19 at 1809, Until Discontinu ed, Routine, Nausea and Vomiting (N/V) ondansetron 2020-0 2020- No 4mg 4 mg, Slow Univers (ZOFRAN 7-30 07-30 IV Push, ity of (PF)) 20:30: 19:27 ONCE, 1 [place] injection 4 00 :00 dose, [place] Med ical mg 09/12/19 at Branch 1530, MALI ondansetron 2020-0 2020- No 4mg 4 mg, Slow Univers (ZOFRAN 09-11-30 IV Push, ity of (PF)) 19:00: 18:39 ONCE, 1 [place] injection 4 00 :00 dose, [place] Med ical mg 09/12/19 at Branch 1400, MALI traMADol 50 2019- 2020- No [id number] 50mg Take 1 Uni vers mg tablet 08-2824 tablet by ity of 00:00: 04:59 mouth [place] 00 :00 every 6 Medical (six) Branch hours as needed for Pain (scale 7-10) for up to 7 days. Indication s: acute pain lidocaine 2019-2019- No [id number] 1.5mL Univers PF 2% 07-28 ity of (XYLOCAINE- 19:00: 19:03 [facility]) 00 :00 Medical injection Branch 1.5 mL lidocaine 2019-2019- No [id number] 4mL Univers PF 2% 07-28 [id number] ity of (XYLOCAINE- 19:00: 19:03 [facility]) 00 :00 Medical injection 4 Branch mL triamcinolo 2019- No [id number] 40mg Univers ne 07-28 ity of acetonide 19:00: 19:03 [place] (KENALOG) 00 :00 Medical injection Branch 40 mg triamcinolo 2019-2019- No [id number] 40mg 40 mg, Univers ne 07-28 Intra-krishan ity of acetonide 19:00: 19:03 [place], [place] (KENALOG) 00 :00 ONCE, 1 Medical injection dose, Mon Branc h 40 mg 07/29/19 at 1400, Routine lidocaine 2019- No [id number] 4mL 4 mL, Univers PF 2% 07-28 Intra-krishan ity of (XYLOCAINE- 19:00: 19:03 [facility] as MPF) 00 :00 ONCE NOW, Medical injection 4 1 dose, Branc h mL 07/29/19 at 1400, Routine lidocaine 2020-0 2020- No [id number] 1.5mL 1.5 mL, Univers PF 2% 07-28 Infiltrati ity of (XYLOCAINE- 19:00: 19:03 on, ONCE [place] MPF) 00 :00 NOW, 1 Medical injection dose, Mon Branc h 1.5 mL 07/29/19 at 1400, Routine lidocaine 2020-0 2020- No [id number] 1.5mL Univers PF 2% 07-28 ity of (XYLOCAINE- 19:00: 19:03 [place] MPF) 00 :00 Medical injection Branch 1.5 mL lidocaine 2020-0 2020- No [id number] 4mL Univers PF 2% 07-28 ity of (XYLOCAINE- 19:00: [facility] 4 Branch mL triamcinolo 2020-0 2020- No [id number] 40mg Univers ne 07-28 ity of acetonide 19:00: 19:03 [place] (KENALOG) 00 :00 Medical injection Branch 40 mg triamcinolo 2020-0 2020- No [id number] 40mg 40 mg, Univers ne 07-28 Intra-krishan ity of acetonide 19:00: 19:03 [place], [place] (KENALOG) 00 :00 ONCE, 1 Medical injection dose, Mon Branc h 40 mg 07/29/19 at 1400, Routine lidocaine 2020-0 2020- No [id number] 4mL 4 mL, Univers PF 2% 07-28 Intra-krishan ity of (XYLOCAINE- 19:00: 19:03 [facility] [place] [facility] as MPF) 00 :00 ONCE NOW, Medical injection 4 1 dose, Branc h mL 07/29/19 at 1400, Routine lidocaine 2020-0 2020- No [id number] 1.5mL 1.5 mL, Univers PF 2% 07-28 Infiltrati ity of (XYLOCAINE- 19:00: 19:03 on, ONCE [place] MPF) 00 :00 NOW, 1 Medical injection dose, Mon Branc h 1.5 mL 07/29/19 at 1400, Routine TRAMADOL 50 2020-0 Yes [id number] TAKE 1 Univers mg tablet 07-25 TABLET BY ity o f 00:00: MOUTH [place] 00 EVERY 6 Medical HOURS Branch NEEDED FOR PAIN S(FELY 7-10) TRAMADOL 50 2020-0 Yes [id number] TAKE 1 Univers mg tablet 6-12 9107 TABLET BY ity o f 00:00: MOUTH [place] 00 EVERY 6 Medical HOURS Branch NEEDED FOR PAIN S(FELY 7-10) TRAMADOL 50 2020-0 Yes [id number] TAKE 1 Univers mg tablet 6-12 9107 TABLET BY ity o f 00:00: MOUTH [place] 00 EVERY 6 Medical HOURS Branch NEEDED FOR PAIN S(FELY 7-10) TRAMADOL 50 2020-0 Yes [id number] TAKE 1 Univers mg tablet 6-12 9107 TABLET BY ity o f 00:00: MOUTH [place] 00 EVERY 6 Medical HOURS Branch NEEDED FOR PAIN S(FELY 7-10) TRAMADOL 50 2020-0 Yes [id number] TAKE 1 Univers mg tablet 6-12 9107 TABLET BY ity o f 00:00: MOUTH [place] 00 EVERY 6 Medical HOURS Branch NEEDED FOR PAIN S(FELY 7-10) TRAMADOL 50 2020-0 Yes [id number] TAKE 1 Univers mg tablet 6-12 9107 TABLET BY ity o f 00:00: MOUTH [place] 00 EVERY 6 Medical HOURS Branch NEEDED FOR PAIN S(FELY 7-10) TRAMADOL 50 2020-0 Yes [id number] TAKE 1 [facility] mg tablet 6-12 9107 TABLET BY ity o f 00:00: MOUTH [place] 00 EVERY 6 Medical HOURS Branch NEEDED FOR PAIN S(FELY 7-10) TRAMADOL 50 2020-0 Yes [id number] TAKE 1 [facility] mg tablet 6-12 9107 TABLET BY ity o f 00:00: MOUTH [place] 00 EVERY 6 Medical HOURS Branch NEEDED FOR PAIN S(FELY 7-10) TRAMADOL 50 2020-0 Yes [id number] TAKE 1 [facility] mg tablet 6-12 9107 TABLET BY ity o f 00:00: MOUTH [place] 00 EVERY 6 Medical HOURS Branch NEEDED FOR PAIN S(FELY 7-10) TRAMADOL 50 2020-0 Yes [id number] TAKE 1 [facility] mg tablet 6-12 9107 TABLET BY ity o f 00:00: MOUTH [place] 00 EVERY 6 Medical HOURS Branch NEEDED FOR PAIN S(FELY 7-10) TRAMADOL 50 2020-0 Yes [id number] TAKE 1 [facility] mg tablet 6-12 9107 TABLET BY it[facility] o f 00:00: MOUTH [place] 00 EVERY 6 Medical HOURS Branch NEEDED FOR PAIN S(FELY 7-10) TRAMADOL 50 2020-0 Yes [id number] TAKE 1 [facility] mg tablet 6-12 9107 TABLET BY it[facility] o f 00:00: MOUTH [place] 00 EVERY 6 Medical HOURS Branch NEEDED FOR PAIN S(FELY 7-10) TRAMADOL 50 2020-0 Yes [id number] TAKE 1 [facility] mg tablet 6-12 9107 TABLET BY it[facility] o f 00:00: MOUTH [place] 00 EVERY 6 Medical HOURS Branch NEEDED FOR PAIN S(FELY 7-10) TRAMADOL 50 2020-0 Yes [id number] TAKE 1 [facility] mg tablet 6-12 9107 TABLET BY ity o f 00:00: MOUTH [place] 00 EVERY 6 Medical HOURS Branch NEEDED FOR PAIN S(FELY 7-10) TRAMADOL 50 2020-0 Yes [id number] TAKE 1 [facility] mg tablet 6-12 9107 TABLET BY ity o f 00:00: MOUTH [place] 00 EVERY 6 Medical HOURS Branch NEEDED FOR PAIN S(FELY 7-10) TRAMADOL 50 2020-0 Yes [id number] TAKE 1 [facility] mg tablet 6- 9107 TABLET BY ity o f 00:00: MOUTH [place] 00 EVERY 6 Medical HOURS Branch NEEDED FOR PAIN S(FELY 7-10) TRAMADOL 50 2020-0 Yes [id number] TAKE 1 [facility] mg tablet 6- 9107 TABLET BY ity o f 00:00: MOUTH [place] 00 EVERY 6 Medical HOURS Branch NEEDED FOR PAIN S(FELY 7-10) TRAMADOL 50 2020-0 Yes [id number] TAKE 1 [facility] mg tablet 6-12 9107 TABLET BY it[facility] o f 00:00: MOUTH [place] 00 EVERY 6 Medical HOURS Branch NEEDED FOR PAIN S(FELY 7-10) TRAMADOL 50 2020-0 2020- No [id number] TAKE 1 [facility] mg tablet 6-12 10-07 9107 TABLET BY ity of 00:00: 00:00 MOUTH [place] 00 :00 EVERY 6 Medical HOURS Branch NEEDED FOR PAIN S(FELY 7-10) traMADol 50 2020-0 Yes [id number] 50mg Take 1 [facility] mg tablet - 9107 tablet by ity o f 00:00: mouth [place] 00 every 6 Medical (six) Branch hours as needed for Pain (scale 7-10). traMADol 50 2020-0 Yes [id number] 50mg Take 1 [facility] mg tablet - 9107 tablet by ity o f 00:00: mouth [place] 00 every 6 Medical (six) Branch hours as needed for Pain (scale 7-10). traMADol 50 2020-0 Yes [id number] 50mg Take 1 [facility] mg tablet 06-09 9107 tablet by ity o f 00:00: mouth [place] 00 every 6 Medical (six) Branch hours as needed for Pain (scale 7-10). traMADol 50 2020-0 Yes [id number] 50mg Take 1 [facility] mg tablet 06-09 9107 tablet by ity o f 00:00: mouth [place] 00 every 6 Medical (six) Branch hours as needed for Pain (scale 7-10). traMADol 50 2020-0 Yes [id number] 50mg Take 1 [facility] mg tablet 06-09 9107 tablet by ity o f 00:00: mouth [place] 00 every 6 Medical (six) Branch hours as needed for Pain (scale 7-10). traMADol 50 2020-0 Yes [id number] 50mg Take 1 [facility] mg tablet 06-09 9107 tablet by ity o f 00:00: mouth [place] 00 every 6 Medical (six) Branch hours as needed for Pain (scale 7-10). traMADol 50 2020-0 2020- No [id number] 50mg Take 1 [facility] mg tablet 06-0912 9107 tablet by ity of 00:00: 00:00 mouth [place] 00 :00 every 6 Medical (six) Branch hours as needed for Pain (scale 7-10). lidocaine 2019-0 2020- No [id number] 1.5mL Un tabitha PF 2% 04-28 ity of (XYLOCAINE- 22:30: 21:48 [place] MPF) 00 :00 Medical injection Branch 1.5 mL lidocaine 2019-0 2020- No [id number] 4mL Uni vers PF 2% 04-28 ity of (XYLOCAINE- 22:30: 21:48 [place] MPF) 00 :00 Medical injection 4 Branch mL triamcinolo 2019- 2020- No [id number] 40mg U nivers ne 04-28 ity of acetonide 22:30: 21:48 [place] (KENALOG) 00 :00 Medical injection Branch 40 mg triamcinolo 2019- 2020- No [id number] 40mg 40 mg, Univers ne 04-28 [facility] ity of acetonide 22:30: 21:48 [place], [place] (KENALOG) 00 :00 ONCE, 1 Medical injection dose, Mon Branc h 40 mg 04/29/19 at 1730, Routine lidocaine 2020-0 2020- No [id number] 4mL 4 mL, Un tabitha PF 2% 04-28 Intra-[facility] ity of (XYLOCAINE- 22:30: 21:48 [place], [place] as MPF) 00 :00 ONCE NOW, Medical injection 4 1 dose, Branc h mL 04/29/19 at 1730, Routine lidocaine 2020-0 2020- No [id number] 1.5mL 1.5 mL, [facility] PF 2% 04-28 Infiltrati ity of (XYLOCAINE- 22:30: 21:48 [place], [place]CE [place] [facility] 00 :00 NOW, 1 Medical injection dose, Mon Branc h 1.5 mL 04/29/19 at 1730, Routine lidocaine 2020-0 2020- No [id number] 1.5mL Un tabitha PF 2% 04-28 ity of (XYLOCAINE- 22:30: 21:48 [place] MPF) 00 :00 Medical injection Branch 1.5 mL lidocaine 2020-0 2020- No [id number] 4mL Uni vers PF 2% 04-28 ity of (XYLOCAINE- 22:30: 21:48 [place] MPF) 00 :00 Medical injection 4 Branch mL triamcinolo 2020-0 2020- No [id number] 40mg U nivers ne 04-28 ity of acetonide 22:30: 21:48 [place] (KENALOG) 00 :00 Medical injection Branch 40 mg triamcinolo 2020-0 2020- No [id number] 40mg 40 mg, Univers ne 04-28 [facility] ity of acetonide 22:30: 21:48 [place], [place] (KENALOG) 00 :00 ONCE, 1 Medical injection dose, Mon Branc h 40 mg 04/29/19 at 1730, Routine lidocaine 2020-0 2020- No [id number] 4mL 4 mL, Un tabitha PF 2% 04-28 [facility] ity of (XYLOCAINE- 22:30: 21:48 [facility], [place] MPF) 00 :00 ONCE NOW, Medical injection 4 1 dose, Branc h mL 04/29/19 at 1730, Routine lidocaine 2020-0 2020- No [id number] 1.5mL 1.5 mL, Univers PF 2% 04-28 Infiltrati ity of (XYLOCAINE- 22:30: 21:48 on, ONCE [place] [facility]) 00 :00 NOW, 1 Medical injection dose, Mon Branc h 1.5 mL 04/29/19 at 1730, Routine lidocaine 2020-0 2020- No [id number] 1.5mL Un tabitha PF 2% 04-28 ity of (XYLOCAINE- 22:30: 21:48 [facility]) 00 :00 Medical injection Branch 1.5 mL lidocaine 2020-0 2020- No [id number] 4mL Uni vers PF 2% 04-28 ity of (XYLOCAINE- 22:30: 21:48 [facility]) 00 :00 Medical injection 4 Branch mL triamcinolo 2019-0 2020- No [id number] 40mg U nivers ne 04-28 ity of acetonide 22:30: 21:48 [place] (KENALOG) 00 :00 Medical injection Branch 40 mg triamcinolo 2019-0 2020- No [id number] 40mg 40 mg, Univers ne 04-28 [facility] ity of acetonide 22:30: 21:48 [place], [place] (KENALOG) 00 :00 ONCE, 1 Medical injection dose, Mon Branc h 40 mg 04/29/19 at 1730, Routine lidocaine 2019-0 2020- No [id number] 4mL 4 mL, Un tabitha PF 2% 04-28 Intra-kr[facility] ity of (XYLOCAINE- 22:30: 21:48 [facility] as MPF) 00 :00 ONCE NOW, Medical injection 4 1 dose, Branc h mL 04/29/19 at 1730, Routine lidocaine 2020-0 2020- No [id number] 1.5mL 1.5 mL, Univers PF 2% 04-28 Infiltrati ity of (XYLOCAINE- 22:30: 21:48 on, ONCE [place] [facility]) 00 :00 NOW, 1 Medical injection dose, Mon Branc h 1.5 mL 04/29/19 at 1730, Routine acetaminoph 2020-0 Yes [id number] 1{tbl} Take 1 [facility] en-codeine 2-10 9107 tablet by ity of 300-30 mg 00:00: mouth [place] tablet 00 every 6 Medical (six) Branch hours as needed for Pain (scale 7-10). acetaminoph 2020-0 Yes [id number] 1{tbl} Take 1 [facility] en-codeine 2-10 9107 tablet by ity of 300-30 mg 00:00: mouth [place] tablet 00 every 6 Medical (six) Branch hours as needed for Pain (scale 7-10). acetaminoph 2020-0 Yes [id number] 1{tbl} Take 1 [facility] en-codeine 2-10 9107 tablet by ity of 300-30 mg 00:00: mouth [place] tablet 00 every 6 Medical (six) Branch hours as needed for Pain (scale 7-10). acetaminoph 2020-0 Yes [id number] 1{tbl} Take 1 [facility] en-codeine 2-10 9107 tablet by ity of 300-30 mg 00:00: mouth [place] tablet 00 every 6 Medical (six) Branch hours as needed for Pain (scale 7-10). acetaminoph 2020-0 Yes [id number] 1{tbl} Take 1 [facility] en-codeine 2-10 9107 tablet by ity of 300-30 mg 00:00: mouth [place] tablet 00 every 6 Medical (six) Branch hours as needed for Pain (scale 7-10). acetaminoph 2020-0 Yes [id number] 1{tbl} Take 1 [facility] en-codeine 2-10 9107 tablet by ity of 300-30 mg 00:00: mouth [place] tablet 00 every 6 Medical (six) Branch hours as needed for Pain (scale 7-10). acetaminoph 2020-0 Yes [id number] 1{tbl} Take 1 [facility] en-codeine 2-10 9107 tablet by ity of 300-30 mg 00:00: mouth [place] tablet 00 every 6 Medical (six) Branch hours as needed for Pain (scale 7-10). acetaminoph 2020-0 Yes [id number] 1{tbl} Take 1 [facility] en-codeine 2-10 9107 tablet by ity of 300-30 mg 00:00: mouth [place] tablet 00 every 6 Medical (six) Branch hours as needed for Pain (scale 7-10). acetaminoph 2020-0 Yes [id number] 1{tbl} Take 1 [facility] en-codeine 2-10 9107 tablet by ity of 300-30 mg 00:00: mouth [place] tablet 00 every 6 Medical (six) Branch hours as needed for Pain (scale 7-10). acetaminoph 2020-0 Yes [id number] 1{tbl} Take 1 [facility] en-codeine 2-10 9107 tablet by ity of 300-30 mg 00:00: mouth [place] tablet 00 every 6 Medical (six) Branch hours as needed for Pain (scale 7-10). acetaminoph 2020-0 Yes [id number] 1{tbl} Take 1 [facility] en-codeine 2-10 9107 tablet by ity of 300-30 mg 00:00: mouth [place] tablet 00 every 6 Medical (six) Branch hours as needed for Pain (scale 7-10). acetaminoph 2020-0 Yes [id number] 1{tbl} Take 1 [facility] en-codeine 2-10 9107 tablet by ity of 300-30 mg 00:00: mouth [place] tablet 00 every 6 Medical (six) Branch hours as needed for Pain (scale 7-10). acetaminoph 2020-0 Yes [id number] 1{tbl} Take 1 [facility] en-codeine 2-10 9107 tablet by ity of 300-30 mg 00:00: mouth [place] tablet 00 every 6 Medical (six) Branch hours as needed for Pain (scale 7-10). acetaminoph 2020-0 Yes [id number] 1{tbl} Take 1 [facility] en-codeine 2-10 9107 tablet by ity of 300-30 mg 00:00: mouth [place] tablet 00 every 6 Medical (six) Branch hours as needed for Pain (scale 7-10). acetaminoph 2020-0 Yes [id number] 1{tbl} Take 1 [facility] en-codeine 2-10 9107 tablet by ity of 300-30 mg 00:00: mouth [place] tablet 00 every 6 Medical (six) Branch hours as needed for Pain (scale 7-10). acetaminoph 2020-0 Yes [id number] 1{tbl} Take 1 [facility] en-codeine 2-10 9107 tablet by ity of 300-30 mg 00:00: mouth [place] tablet 00 every 6 Medical (six) Branch hours as needed for Pain (scale 7-10). acetaminoph 2020-0 Yes [id number] 1{tbl} Take 1 [facility] en-codeine 2-10 9107 tablet by ity of 300-30 mg 00:00: mouth [place] tablet 00 every 6 Medical (six) Branch hours as needed for Pain (scale 7-10). acetaminoph 2020-0 Yes [id number] 1{tbl} Take 1 [facility] en-codeine 2-10 9107 tablet by ity of 300-30 mg 00:00: mouth [place] tablet 00 every 6 Medical (six) Branch hours as needed for Pain (scale 7-10). acetaminoph 2020-0 Yes [id number] 1{tbl} Take 1 [facility] en-codeine 2-10 9107 tablet by ity of 300-30 mg 00:00: mouth [place] tablet 00 every 6 Medical (six) Branch hours as needed for Pain (scale 7-10). acetaminoph 2020-0 Yes [id number] 1{tbl} Take 1 [facility] en-codeine 2-10 9107 tablet by ity of 300-30 mg 00:00: mouth [place] tablet 00 every 6 Medical (six) Branch hours as needed for Pain (scale 7-10). acetaminoph 2020-0 Yes [id number] 1{tbl} Take 1 [facility] en-codeine 2-10 9107 tablet by ity of 300-30 mg 00:00: mouth [place] tablet 00 every 6 Medical (six) Branch hours as needed for Pain (scale 7-10). acetaminoph 2020-0 Yes [id number] 1{tbl} Take 1 [facility] en-codeine 2-10 9107 tablet by ity of 300-30 mg 00:00: mouth [place] tablet 00 every 6 Medical (six) Branch hours as needed for Pain (scale 7-10). acetaminoph 2020-0 Yes [id number] 1{tbl} Take 1 [facility] en-codeine 2-10 9107 tablet by ity of 300-30 mg 00:00: mouth [place] tablet 00 every 6 Medical (six) Branch hours as needed for Pain (scale 7-10). acetaminoph 2020-0 Yes [id number] 1{tbl} Take 1 [facility] en-codeine 2-10 9107 tablet by ity of 300-30 mg 00:00: mouth [place] tablet 00 every 6 Medical (six) Branch hours as needed for Pain (scale 7-10). acetaminoph 2020-0 Yes [id number] 1{tbl} Take 1 [facility] en-codeine 2-10 9107 tablet by ity of 300-30 mg 00:00: mouth [place] tablet 00 every 6 Medical (six) Branch hours as needed for Pain (scale 7-10). acetaminoph 2020-0 Yes [id number] 1{tbl} Take 1 [facility] en-codeine 2-10 9107 tablet by ity of 300-30 mg 00:00: mouth [place] tablet 00 every 6 Medical (six) Branch hours as needed for Pain (scale 7-10). acetaminoph 2020-0 Yes [id number] 1{tbl} Take 1 [facility] en-codeine 2-10 9107 tablet by ity of 300-30 mg 00:00: mouth [place] tablet 00 every 6 Medical (six) Branch hours as needed for Pain (scale 7-10). acetaminoph 2020-0 Yes [id number] 1{tbl} Take 1 [facility] en-codeine 2-10 9107 tablet by ity of 300-30 mg 00:00: mouth [place] tablet 00 every 6 Medical (six) Branch hours as needed for Pain (scale 7-10). acetaminoph 2020-0 Yes [id number] 1{tbl} Take 1 [facility] en-codeine 2-10 9107 tablet by ity of 300-30 mg 00:00: mouth [place] tablet 00 every 6 Medical (six) Branch hours as needed for Pain (scale 7-10). acetaminoph 2020-0 Yes [id number] 1{tbl} Take 1 [facility] en-codeine 2-10 9107 tablet by ity of 300-30 mg 00:00: mouth [place] tablet 00 every 6 Medical (six) Branch hours as needed for Pain (scale 7-10). acetaminoph 2020-0 Yes [id number] 1{tbl} Take 1 [facility] en-codeine 2-10 9107 tablet by ity of 300-30 mg 00:00: mouth [place] tablet 00 every 6 Medical (six) Branch hours as needed for Pain (scale 7-10). acetaminoph 2020-0 Yes [id number] 1{tbl} Take 1 [facility] en-codeine 2-10 9107 tablet by ity of 300-30 mg 00:00: mouth [place] tablet 00 every 6 Medical (six) Branch hours as needed for Pain (scale 7-10). acetaminoph 2020-0 Yes [id number] 1{tbl} Take 1 [facility] en-codeine 2-10 9107 tablet by ity of 300-30 mg 00:00: mouth [place] tablet 00 every 6 Medical (six) Branch hours as needed for Pain (scale 7-10). acetaminoph 2020-0 Yes [id number] 1{tbl} Take 1 [facility] en-codeine 2-10 9107 tablet by ity of 300-30 mg 00:00: mouth [place] tablet 00 every 6 Medical (six) Branch hours as needed for Pain (scale 7-10). acetaminoph 2020-0 Yes [id number] 1{tbl} Take 1 [facility] en-codeine 2-10 9107 tablet by ity of 300-30 mg 00:00: mouth [place] tablet 00 every 6 Medical (six) Branch hours as needed for Pain (scale 7-10). acetaminoph 2020-0 Yes [id number] 1{tbl} Take 1 [facility] en-codeine 2-10 9107 tablet by ity of 300-30 mg 00:00: mouth [place] tablet 00 every 6 Medical (six) Branch hours as needed for Pain (scale 7-10). acetaminoph 2020-0 Yes [id number] 1{tbl} Take 1 [facility] en-codeine 2-10 9107 tablet by ity of 300-30 mg 00:00: mouth [place] tablet 00 every 6 Medical (six) Branch hours as needed for Pain (scale 7-10). acetaminoph 2020-0 Yes [id number] 1{tbl} Take 1 [facility] en-codeine 2-10 9107 tablet by ity of 300-30 mg 00:00: mouth [place] tablet 00 every 6 Medical (six) Branch hours as needed for Pain (scale 7-10). acetaminoph 2020-0 Yes [id number] 1{tbl} Take 1 [facility] en-codeine 2-10 9107 tablet by ity of 300-30 mg 00:00: mouth [place] tablet 00 every 6 Medical (six) Branch hours as needed for Pain (scale 7-10). acetaminoph 2020-0 Yes [id number] 1{tbl} Take 1 [facility] en-codeine 2-10 9107 tablet by ity of 300-30 mg 00:00: mouth [place] tablet 00 every 6 Medical (six) Branch hours as needed for Pain (scale 7-10). acetaminoph 2020-0 Yes [id number] 1{tbl} Take 1 [facility] en-codeine 2-10 9107 tablet by ity of 300-30 mg 00:00: mouth [place] tablet 00 every 6 Medical (six) Branch hours as needed for Pain (scale 7-10). acetaminoph 2020-0 Yes [id number] 1{tbl} Take 1 [facility] en-codeine 2-10 9107 tablet by ity of 300-30 mg 00:00: mouth [place] tablet 00 every 6 Medical (six) Branch hours as needed for Pain (scale 7-10). acetaminoph 2020-0 Yes [id number] 1{tbl} Take 1 [facility] en-codeine 2-10 9107 tablet by ity of 300-30 mg 00:00: mouth [place] tablet 00 every 6 Medical (six) Branch hours as needed for Pain (scale 7-10). acetaminoph 2020-0 Yes [id number] 1{tbl} Take 1 [facility] en-codeine 2-10 9107 tablet by ity of 300-30 mg 00:00: mouth [place] tablet 00 every 6 Medical (six) Branch hours as needed for Pain (scale 7-10). acetaminoph 2020-0 Yes [id number] 1{tbl} Take 1 [facility] en-codeine 2-10 9107 tablet by ity of 300-30 mg 00:00: mouth [place] tablet 00 every 6 Medical (six) Branch hours as needed for Pain (scale 7-10). acetaminoph 2020-0 Yes [id number] 1{tbl} Take 1 [facility] en-codeine 2-10 9107 tablet by ity of 300-30 mg 00:00: mouth [place] tablet 00 every 6 Medical (six) Branch hours as needed for Pain (scale 7-10). acetaminoph 2020-0 Yes [id number] 1{tbl} Take 1 [facility] en-codeine 2-10 9107 tablet by ity of 300-30 mg 00:00: mouth [place] tablet 00 every 6 Medical (six) Branch hours as needed for Pain (scale 7-10). acetaminoph 2020-0 Yes [id number] 1{tbl} Take 1 [facility] en-codeine 2-10 9107 tablet by ity of 300-30 mg 00:00: mouth [place] tablet 00 every 6 Medical (six) Branch hours as needed for Pain (scale 7-10). acetaminoph 2020-0 2020- No [id number] 1{tbl} Take 1 [facility] en-codeine 2-10 08-25 9107 tablet by ity of 300-30 mg 00:00: 00:00 mouth [place] tablet 00 :00 every 6 Medical (six) Branch hours as needed for Pain (scale 7-10). aspirin 325 2020-0 Yes 325mg Take 325 U nivers mg tablet 1-29 mg by ity of 17:19: mouth [place] 21 daily. Medical Branch citalopram 2020-0 Yes 40mg Take 40 mg U nivers (CELEXA) 40 1-29 by mouth ity of mg tablet 17:19: daily. [place] [address] Medical Branch omeprazole 2020-0 Yes 40mg Take 40 mg U nivers 40 mg 1-29 by mouth. ity of capsule 17:19: [place] [address] Medical Branch aspirin 325 2020-0 Yes 325mg Take 325 U nivers mg tablet 1-29 mg by ity of 17:19: mouth [place] 21 daily. Medical Branch citalopram 2020-0 Yes 40mg Take 40 mg U nivers (CELEXA) 40 1-29 by mouth ity of mg tablet 17:19: daily. [place] [address] Medical Branch omeprazole 2020-0 Yes 40mg Take 40 mg U nivers 40 mg 1-29 by mouth. ity of capsule 17:19: [place] [address] Medical Branch aspirin 325 2020-0 Yes 325mg Take 325 U nivers mg tablet 1-29 mg by ity of 17:19: mouth [place] 21 daily. Medical Branch citalopram 2020-0 Yes 40mg Take 40 mg U nivers (CELEXA) 40 1-29 by mouth ity of mg tablet 17:19: daily. [place] [address] Medical Branch omeprazole 2020-0 Yes 40mg Take 40 mg U nivers 40 mg 1-29 by mouth. ity of capsule 17:19: [place] [address] Medical Branch aspirin 325 2020-0 Yes 325mg Take 325 U nivers mg tablet 1-29 mg by ity of 17:19: mouth [place] 21 daily. Medical Branch citalopram 2020-0 Yes 40mg Take 40 mg U nivers (CELEXA) 40 1-29 by mouth ity of mg tablet 17:19: daily. [place] [address] Medical Branch omeprazole 2020-0 Yes 40mg Take 40 mg U nivers 40 mg 1-29 by mouth. ity of capsule 17:19: [place] [address] Medical Branch aspirin 325 2020-0 Yes 325mg Take 325 U nivers mg tablet 1-29 mg by ity of 17:19: mouth [place] 21 daily. Medical Branch citalopram 2020-0 Yes 40mg Take 40 mg U nivers (CELEXA) 40 1-29 by mouth ity of mg tablet 17:19: daily. [place] [address] Medical Branch omeprazole 2020-0 Yes 40mg Take 40 mg U nivers 40 mg 1-29 by mouth. ity of capsule 17:19: [place] [address] Medical Branch aspirin 325 2020-0 Yes 325mg Take 325 U nivers mg tablet 1-29 mg by ity of 17:19: mouth [place] 21 daily. Medical Branch citalopram 2020-0 Yes 40mg Take 40 mg U nivers (CELEXA) 40 1-29 by mouth ity of mg tablet 17:19: daily. [place] [address] Medical Branch omeprazole 2020-0 Yes 40mg Take 40 mg U nivers 40 mg 1-29 by mouth. ity of capsule 17:19: [address] Branch aspirin 325 2020-0 Yes 325mg Take 325 U nivers mg tablet 1-29 mg by ity of 17:19: mouth [place] 21 daily. Medical Branch citalopram 2020-0 Yes 40mg Take 40 mg U nivers (CELEXA) 40 1-29 by mouth ity of mg tablet 17:19: daily. [place] [address] Medical Branch omeprazole 2020-0 Yes 40mg Take 40 mg U nivers 40 mg 1-29 by mouth. ity of capsule 17:19: [place] [address] Medical Branch aspirin 325 2020-0 Yes 325mg Take 325 U nivers mg tablet 1-29 mg by ity of 17:19: mouth [place] 21 daily. Medical Branch citalopram 2020-0 Yes 40mg Take 40 mg U nivers (CELEXA) 40 1-29 by mouth ity of mg tablet 17:19: daily. [place] [address] Medical Branch omeprazole 2020-0 Yes 40mg Take 40 mg U nivers 40 mg 1-29 by mouth. ity of capsule 17:19: [place] [address] Medical Branch aspirin 325 2020-0 Yes 325mg Take 325 U nivers mg tablet 1-29 mg by ity of 17:19: mouth [place] 21 daily. Medical Branch citalopram 2020-0 Yes 40mg Take 40 mg U nivers (CELEXA) 40 1-29 by mouth ity of mg tablet 17:19: daily. [place] [address] Medical Branch omeprazole 2020-0 Yes 40mg Take 40 mg U nivers 40 mg 1-29 by mouth. ity of capsule 17:19: [place] [address] Medical Branch aspirin 325 2020-0 Yes 325mg Take 325 U nivers mg tablet 1-29 mg by ity of 17:19: mouth [place] 21 daily. Medical Branch citalopram 2020-0 Yes 40mg Take 40 mg U nivers (CELEXA) 40 1-29 by mouth ity of mg tablet 17:19: daily. [place] [address] Medical Branch omeprazole 2020-0 Yes 40mg Take 40 mg U nivers 40 mg 1-29 by mouth. ity of capsule 17:19: [place] [address] Medical Branch aspirin 325 2020-0 Yes 325mg Take 325 U nivers mg tablet 1-29 mg by ity of 17:19: mouth [place] 21 daily. Medical Branch citalopram 2020-0 Yes 40mg Take 40 mg U nivers (CELEXA) 40 1-29 by mouth ity of mg tablet 17:19: daily. [place] [address] Medical Branch omeprazole 2020-0 Yes 40mg Take 40 mg U nivers 40 mg 1-29 by mouth. ity of capsule 17:19: [place] [address] Medical Branch aspirin 325 2020-0 Yes 325mg Take 325 U nivers mg tablet 1-29 mg by ity of 17:19: mouth [place] 21 daily. Medical Branch citalopram 2020-0 Yes 40mg Take 40 mg U nivers (CELEXA) 40 1-29 by mouth ity of mg tablet 17:19: daily. [place] [address] Medical Branch omeprazole 2020-0 Yes 40mg Take 40 mg U nivers 40 mg 1-29 by mouth. ity of capsule 17:19: [place] [address] Medical Branch aspirin 325 2020-0 Yes 325mg Take 325 U nivers mg tablet 1-29 mg by ity of 17:19: mouth [place] 21 daily. Medical Branch citalopram 2020-0 Yes 40mg Take 40 mg U nivers (CELEXA) 40 1-29 by mouth ity of mg tablet 17:19: daily. [place] [address] Medical Branch omeprazole 2020-0 Yes 40mg Take 40 mg U nivers 40 mg 1-29 by mouth. ity of capsule 17:19: [address] Branch aspirin 325 2020-0 Yes 325mg Take 325 U nivers mg tablet 1-29 mg by ity of 17:19: mouth [place] 21 daily. Medical Branch citalopram 2020-0 Yes 40mg Take 40 mg U nivers (CELEXA) 40 1-29 by mouth ity of mg tablet 17:19: daily. [place] [address] Medical Branch omeprazole 2020-0 Yes 40mg Take 40 mg U nivers 40 mg 1-29 by mouth. ity of capsule 17:19: [address] Branch aspirin 325 2020-0 Yes 325mg Take 325 U nivers mg tablet 1-29 mg by ity of 17:19: mouth [place] 21 daily. Medical Branch citalopram 2020-0 Yes 40mg Take 40 mg U nivers (CELEXA) 40 1-29 by mouth ity of mg tablet 17:19: daily. [place] [address] Medical Branch omeprazole 2020-0 Yes 40mg Take 40 mg U nivers 40 mg 1-29 by mouth. ity of capsule 17:19: [address] Branch aspirin 325 2020-0 Yes 325mg Take 325 U nivers mg tablet 1-29 mg by ity of 17:19: mouth [place] 21 daily. Medical Branch citalopram 2020-0 Yes 40mg Take 40 mg U nivers (CELEXA) 40 1-29 by mouth ity of mg tablet 17:19: daily. [place] [address] Medical Branch omeprazole 2020-0 Yes 40mg Take 40 mg U nivers 40 mg 1-29 by mouth. ity of capsule 17:19: [place] [address] Medical Branch aspirin 325 2020-0 Yes 325mg Take 325 U nivers mg tablet 1-29 mg by ity of 17:19: mouth [place] 21 daily. Medical Branch citalopram 2020-0 Yes 40mg Take 40 mg U nivers (CELEXA) 40 1-29 by mouth ity of mg tablet 17:19: daily. [place] [address] Medical Branch omeprazole 2020-0 Yes 40mg Take 40 mg U nivers 40 mg 1-29 by mouth. ity of capsule 17:19: [place] [address] Medical Branch aspirin 325 2020-0 Yes 325mg Take 325 U nivers mg tablet 1-29 mg by ity of 17:19: mouth [place] 21 daily. Medical Branch citalopram 2020-0 Yes 40mg Take 40 mg U nivers (CELEXA) 40 1-29 by mouth ity of mg tablet 17:19: daily. [place] [address] Medical Branch omeprazole 2020-0 Yes 40mg Take 40 mg U nivers 40 mg 1-29 by mouth. ity of capsule 17:19: [place] [address] Medical Branch aspirin 325 2020-0 Yes 325mg Take 325 U nivers mg tablet 1-29 mg by ity of 17:19: mouth [place] 21 daily. Medical Branch citalopram 2020-0 Yes 40mg Take 40 mg U nivers (CELEXA) 40 1-29 by mouth ity of mg tablet 17:19: daily. [place] [address] Medical Branch omeprazole 2020-0 Yes 40mg Take 40 mg U nivers 40 mg 1-29 by mouth. ity of capsule 17:19: [place] [address] Medical Branch aspirin 325 2020-0 Yes 325mg Take 325 U nivers mg tablet 1-29 mg by ity of 17:19: mouth [place] 21 daily. Medical Branch citalopram 2020-0 Yes 40mg Take 40 mg U nivers (CELEXA) 40 1-29 by mouth ity of mg tablet 17:19: daily. [place] [address] Medical Branch omeprazole 2020-0 Yes 40mg Take 40 mg U nivers 40 mg 1-29 by mouth. ity of capsule 17:19: [address] Branch aspirin 325 2020-0 Yes 325mg Take 325 U nivers mg tablet 1-29 mg by ity of 17:19: mouth [place] 21 daily. Medical Branch citalopram 2020-0 Yes 40mg Take 40 mg U nivers (CELEXA) 40 1-29 by mouth ity of mg tablet 17:19: daily. [place] [address] Medical Branch omeprazole 2020-0 Yes 40mg Take 40 mg U nivers 40 mg 1-29 by mouth. ity of capsule 17:19: [place] [address] Medical Branch aspirin 325 2020-0 Yes 325mg Take 325 U nivers mg tablet 1-29 mg by ity of 17:19: mouth [place] 21 daily. Medical Branch citalopram 2020-0 Yes 40mg Take 40 mg U nivers (CELEXA) 40 1-29 by mouth ity of mg tablet 17:19: daily. [place] [address] Medical Branch omeprazole 2020-0 Yes 40mg Take 40 mg U nivers 40 mg 1-29 by mouth. ity of capsule 17:19: [address] Branch aspirin 325 2020-0 Yes 325mg Take 325 U nivers mg tablet 1-29 mg by ity of 17:19: mouth [place] 21 daily. Medical Branch citalopram 2020-0 Yes 40mg Take 40 mg U nivers (CELEXA) 40 1-29 by mouth ity of mg tablet 17:19: daily. [place] [address] Medical Branch omeprazole 2020-0 Yes 40mg Take 40 mg U nivers 40 mg 1-29 by mouth. ity of capsule 17:19: [address] Branch aspirin 325 2020-0 Yes 325mg Take 325 U nivers mg tablet 1-29 mg by ity of 17:19: mouth [place] 21 daily. Medical Branch citalopram 2020-0 Yes 40mg Take 40 mg U nivers (CELEXA) 40 1-29 by mouth ity of mg tablet 17:19: daily. [place] [address] Medical Branch omeprazole 2020-0 Yes 40mg Take 40 mg U nivers 40 mg 1-29 by mouth. ity of capsule 17:19: [place] [address] Medical Branch aspirin 325 2020-0 Yes 325mg Take 325 U nivers mg tablet 1-29 mg by ity of 17:19: mouth [place] 21 daily. Medical Branch citalopram 2020-0 Yes 40mg Take 40 mg U nivers (CELEXA) 40 1-29 by mouth ity of mg tablet 17:19: daily. [place] [address] Medical Branch omeprazole 2020-0 Yes 40mg Take 40 mg U nivers 40 mg 1-29 by mouth. ity of capsule 17:19: [address] Branch aspirin 325 2020-0 Yes 325mg Take 325 U nivers mg tablet 1-29 mg by ity of 17:19: mouth [place] 21 daily. Medical Branch citalopram 2020-0 Yes 40mg Take 40 mg U nivers (CELEXA) 40 1-29 by mouth ity of mg tablet 17:19: daily. [address] Branch omeprazole 2020-0 Yes 40mg Take 40 mg U nivers 40 mg 1-29 by mouth. ity of capsule 17:19: [address] Branch aspirin 325 2020-0 Yes 325mg Take 325 U nivers mg tablet 1-29 mg by ity of 17:19: mouth [place] 21 daily. Medical Branch citalopram 2020-0 Yes 40mg Take 40 mg U nivers (CELEXA) 40 1-29 by mouth ity of mg tablet 17:19: daily. [address] omeprazole 2020-0 Yes 40mg Take 40 mg U nivers 40 mg 1-29 by mouth. ity of capsule 17:19: [address] aspirin 325 2020-0 Yes 325mg Take 325 U nivers mg tablet 1-29 mg by ity of 17:19: mouth [place] 21 daily. Medical Branch citalopram 2020-0 Yes 40mg Take 40 mg U nivers (CELEXA) 40 1-29 by mouth ity of mg tablet 17:19: daily. [address] omeprazole 2020-0 Yes 40mg Take 40 mg U nivers 40 mg 1-29 by mouth. ity of capsule 17:19: [address] aspirin 325 2020-0 Yes 325mg Take 325 U nivers mg tablet 1-29 mg by ity of 17:19: mouth [place] 21 daily. Medical Branch citalopram 2020-0 Yes 40mg Take 40 mg U nivers (CELEXA) 40 1-29 by mouth ity of mg tablet 17:19: daily. [address] omeprazole 2020-0 Yes 40mg Take 40 mg U nivers 40 mg 1-29 by mouth. ity of capsule 17:19: [address] aspirin 325 2020-0 Yes 325mg Take 325 U nivers mg tablet 1-29 mg by ity of 17:19: mouth [place] 21 daily. Medical Branch citalopram 2020-0 Yes 40mg Take 40 mg U nivers (CELEXA) 40 1-29 by mouth ity of mg tablet 17:19: daily. [address] omeprazole 2020-0 Yes 40mg Take 40 mg U nivers 40 mg 1-29 by mouth. ity of capsule 17:19: [address] aspirin 325 2020-0 Yes 325mg Take 325 U nivers mg tablet 1-29 mg by ity of 17:19: mouth [place] 21 daily. Medical Branch citalopram 2020-0 Yes 40mg Take 40 mg U nivers (CELEXA) 40 1-29 by mouth ity of mg tablet 17:19: daily. [place] 21 Medical Branch omeprazole 2020-0 Yes 40mg Take 40 mg U nivers 40 mg 1-29 by mouth. ity of capsule 17:19: [address] Branch aspirin 325 2020-0 Yes 325mg Take 325 U nivers mg tablet 1-29 mg by ity of 17:19: mouth [place] 21 daily. Medical Branch citalopram 2020-0 Yes 40mg Take 40 mg U nivers (CELEXA) 40 1-29 by mouth ity of mg tablet 17:19: daily. [place] [address] [facility] Branch omeprazole 2020-0 Yes 40mg Take 40 mg U nivers 40 mg 1-29 by mouth. ity of capsule 17:19: [place] [address] Medical Branch aspirin 325 2020-0 Yes 325mg Take 325 U nivers mg tablet 1-29 mg by ity of 17:19: mouth [place] 21 daily. Medical Branch citalopram 2020-0 Yes 40mg Take 40 mg U nivers (CELEXA) 40 1-29 by mouth ity of mg tablet 17:19: daily. [place] [address] [facility] Branch omeprazole 2020-0 Yes 40mg Take 40 mg U nivers 40 mg 1-29 by mouth. ity of capsule 17:19: [place] [address] Medical Branch aspirin 325 2020-0 Yes 325mg Take 325 U nivers mg tablet 1-29 mg by ity of 17:19: mouth [place] 21 daily. Medical Branch citalopram 2020-0 Yes 40mg Take 40 mg U nivers (CELEXA) 40 1-29 by mouth ity of mg tablet 17:19: daily. [place] [address] [facility] [place] omeprazole 2020-0 Yes 40mg Take 40 mg U nivers 40 mg 1-29 by mouth. ity of capsule 17:19: [place] [address] Medical Branch aspirin 325 2020-0 Yes 325mg Take 325 U nivers mg tablet 1-29 mg by ity of 17:19: mouth [place] 21 daily. Medical Branch citalopram 2020-0 Yes 40mg Take 40 mg U nivers (CELEXA) 40 1-29 by mouth ity of mg tablet 17:19: daily. [place] [address] Medical Branch omeprazole 2020-0 Yes 40mg Take 40 mg U nivers 40 mg 1-29 by mouth. ity of capsule 17:19: [address] Branch aspirin 325 2020-0 Yes 325mg Take 325 U nivers mg tablet 1-29 mg by ity of 17:19: mouth [place] 21 daily. Medical Branch citalopram 2020-0 Yes 40mg Take 40 mg U nivers (CELEXA) 40 1-29 by mouth ity of mg tablet 17:19: daily. [place] [address] Medical Branch omeprazole 2020-0 Yes 40mg Take 40 mg U nivers 40 mg 1-29 by mouth. ity of capsule 17:19: [place] [address] Medical Branch aspirin 325 2020-0 Yes 325mg Take 325 U nivers mg tablet 1-29 mg by ity of 17:19: mouth [place] 21 daily. Medical Branch citalopram 2020-0 Yes 40mg Take 40 mg U nivers (CELEXA) 40 1-29 by mouth ity of mg tablet 17:19: daily. [place] [address] Medical Branch omeprazole 2020-0 Yes 40mg Take 40 mg U nivers 40 mg 1-29 by mouth. ity of capsule 17:19: [place] [address] Medical Branch aspirin 325 2020-0 Yes 325mg Take 325 U nivers mg tablet 1-29 mg by ity of 17:19: mouth [place] 21 daily. Medical Branch citalopram 2020-0 Yes 40mg Take 40 mg U nivers (CELEXA) 40 1-29 by mouth ity of mg tablet 17:19: daily. [place] [address] Medical Branch omeprazole 2020-0 Yes 40mg Take 40 mg U nivers 40 mg 1-29 by mouth. ity of capsule 17:19: [place] [address] Medical Branch aspirin 325 2020-0 Yes 325mg Take 325 U nivers mg tablet 1-29 mg by ity of 17:19: mouth [place] 21 daily. Medical Branch citalopram 2020-0 Yes 40mg Take 40 mg U nivers (CELEXA) 40 1-29 by mouth ity of mg tablet 17:19: daily. [place] [address] Medical Branch omeprazole 2020-0 Yes 40mg Take 40 mg U nivers 40 mg 1-29 by mouth. ity of capsule 17:19: [place] [address] Medical Branch aspirin 325 2020-0 Yes 325mg Take 325 U nivers mg tablet 1-29 mg by ity of 17:19: mouth [place] 21 daily. Medical Branch citalopram 2020-0 Yes 40mg Take 40 mg U nivers (CELEXA) 40 1-29 by mouth ity of mg tablet 17:19: daily. [place] [address] Medical Branch omeprazole 2020-0 Yes 40mg Take 40 mg U nivers 40 mg 03-13 by mouth. ity of capsule 17:19: [place] 21 Medical Branch aspirin 2020-0 Yes 325mg 325 mg, Univer s tablet 325 03-13 Oral, ity of mg 15:00: DAILY, [place] 00 First dose Medical on Mon Branch 03/13/19 at 0900, Until Discontinu ed, Routine insulin 2020-0 Yes 11U 11 Units, Unive rs glargine 03-13 Subcutaneo ity o f (LANTUS 15:00: [place], [place]ILY, [place] U-100[place] 00 First dose Medical injection on Mon Branch 11 Units 03/13/19 at 0900, Until Discontinu ed, Routine tamsulosin 2020-0 Yes .4mg 0.4 mg, Univ ers (FLOMAX) 03-13 Oral, ity of capsule 0.4 15:00: DAILY, [place] mg 00 First dose Medical on Mon Branch 03/13/19 at 0900, Until Discontinu ed, Routine omeprazole 2020-0 Yes 40mg 40 mg, Unive rs (PRILOSEC) 03-13 Oral, ity of capsule 40 15:00: DAILY, [place] mg 00 First dose Medical on Mon Branch 03/13/19 at 0900, Until Discontinu ed lisinopril 2020-0 Yes 5mg 5 mg, Univer s (PRINIVIL,Z 03-13 Oral, ity of ESTRIL) 15:00: DAILY, [place] tablet 5 mg 00 First dose Me dical on Mon Branch 03/13/19 at 0900, Until Discontinu ed, Routine citalopram 2020-0 Yes 40mg 40 mg, Unive rs (CELEXA) 03-13 Oral, ity of tablet 40 15:00: DAILY, [place] mg 00 First dose Medical on Mon Branch 03/13/19 at 0900, Until Discontinu ed, Routine insulin 2020-0 Yes 4U 4 Units, Univer s aspart 03-13 Subcutaneo ity of RAPID 13:30: , TIDA, [place] (NOVOLOG 00 First dose Medic al U-100 on Mon Branch INSULIN 03/13/19 at ASPART) 0730, injection 4 Until Units Discontinu ed, Routine Sliding 2020-0 Yes Subcutaneo Univ ers Scale 03-13 us, AC+HS, ity of Insulin-Reg 03:00: First dose [place] ular + Fsbg 00 on [facility] Medica l Testing 03/12/19 at Branch 2100, Until Discontinu ed, Routine atorvastati 2020-0 Yes 40mg 40 mg, Univ ers n (LIPITOR) 1-29 Oral, QHS, it y of tablet 40 03:00: First dose [place] mg 00 on [facility] Medical 03/12/19 at Branch 2100, Until Discontinu ed, Routine hydralAZINE 2019-0 Yes 10mg 10 mg, Univ ers (APRESOLINE 03-13 Intravenou it y of ) injection 02:18: s, Q6HPRN, [place] 10 mg 10 Starting Medical [facility] Branch 03/12/19 at 2018, Until Discontinu ed, Routine, sbp >160 docusate 2019-0 Yes 100mg 100 mg, Unive rs (COLACE) 03-13 Oral, ity of capsule 100 02:00: Q12H, [place] mg 00 First dose Medical on [facility] Branch 03/12/19 at 2000, Until Discontinu ed, Routine traMADol 50 2020-0 Yes [id number] 50mg Take 1 Univers mg tablet 1-29 tablet by ity o f 00:00: mouth [place] 00 every 6 Medical (six) Branch hours as needed for Pain (scale 7-10). traMADol 50 2020-0 Yes [id number] 50mg Take 1 Univers mg tablet 1-29 tablet by ity o f 00:00: mouth [place] 00 every 6 Medical (six) Branch hours as needed for Pain (scale 7-10). traMADol 50 2020-0 Yes [id number] 50mg Take 1 Univers mg tablet 1-29 tablet by ity o f 00:00: mouth [place] 00 every 6 Medical (six) Branch hours as needed for Pain (scale 7-10). traMADol 50 2020-0 Yes [id number] 50mg Take 1 Univers mg tablet 1-29 tablet by ity o f 00:00: mouth [place] 00 every 6 Medical (six) Branch hours as needed for Pain (scale 7-10). traMADol 50 2020-0 Yes [id number] 50mg Take 1 Univers mg tablet 1-29 tablet by ity o f 00:00: mouth [place] 00 every 6 Medical (six) Branch hours as needed for Pain (scale 7-10). traMADol 50 2020-0 Yes [id number] 50mg Take 1 Univers mg tablet 1-29 tablet by ity o f 00:00: mouth [place] 00 every 6 Medical (six) Branch hours as needed for Pain (scale 7-10). traMADol 50 2020-0 Yes [id number] 50mg Take 1 Univers mg tablet 1-29 tablet by ity o f 00:00: mouth [place] 00 every 6 Medical (six) Branch hours as needed for Pain (scale 7-10). traMADol 50 2020-0 Yes [id number] 50mg Take 1 Univers mg tablet 1-29 tablet by ity o f 00:00: mouth [place] 00 every 6 Medical (six) Branch hours as needed for Pain (scale 7-10). traMADol 50 2020-0 Yes [id number] 50mg Take 1 Univers mg tablet 1-29 tablet by ity o f 00:00: mouth [place] 00 every 6 Medical (six) Branch hours as needed for Pain (scale 7-10). traMADol 50 2020-0 Yes [id number] 50mg Take 1 Univers mg tablet 1-29 tablet by ity o f 00:00: mouth [place] 00 every 6 Medical (six) Branch hours as needed for Pain (scale 7-10). traMADol 50 2020-0 Yes [id number] 50mg Take 1 Univers mg tablet 1-29 tablet by ity o f 00:00: mouth [place] 00 every 6 Medical (six) Branch hours as needed for Pain (scale 7-10). traMADol 50 2020-0 Yes [id number] 50mg Take 1 Univers mg tablet 1-29 tablet by ity o f 00:00: mouth [place] 00 every 6 Medical (six) Branch hours as needed for Pain (scale 7-10). traMADol 50 2020-0 Yes [id number] 50mg Take 1 Univers mg tablet 1-29 tablet by ity o f 00:00: mouth [place] 00 every 6 Medical (six) Branch hours as needed for Pain (scale 7-10). traMADol 50 2020-0 Yes [id number] 50mg Take 1 Univers mg tablet 1-29 tablet by ity o f 00:00: mouth [place] 00 every 6 Medical (six) Branch hours as needed for Pain (scale 7-10). traMADol 50 2020-0 Yes [id number] 50mg Take 1 Univers mg tablet 1-29 tablet by ity o f 00:00: mouth [place] 00 every 6 Medical (six) Branch hours as needed for Pain (scale 7-10). traMADol 50 2020-0 Yes [id number] 50mg Take 1 Univers mg tablet 1-29 tablet by ity o f 00:00: mouth [place] 00 every 6 Medical (six) Branch hours as needed for Pain (scale 7-10). traMADol 50 2020-0 Yes [id number] 50mg Take 1 Univers mg tablet 1-29 tablet by ity o f 00:00: mouth [place] 00 every 6 Medical (six) Branch hours as needed for Pain (scale 7-10). traMADol 50 2020-0 Yes [id number] 50mg Take 1 Univers mg tablet 1-29 tablet by ity o f 00:00: mouth [place] 00 every 6 Medical (six) Branch hours as needed for Pain (scale 7-10). traMADol 50 2020-0 Yes [id number] 50mg Take 1 Univers mg tablet 1-29 tablet by ity o f 00:00: mouth [place] 00 every 6 Medical (six) Branch hours as needed for Pain (scale 7-10). traMADol 50 2020-0 Yes [id number] 50mg Take 1 Univers mg tablet 1-29 tablet by ity o f 00:00: mouth [place] 00 every 6 Medical (six) Branch hours as needed for Pain (scale 7-10). traMADol 50 2020-0 Yes [id number] 50mg Take 1 Univers mg tablet 1-29 tablet by ity o f 00:00: mouth [place] 00 every 6 Medical (six) Branch hours as needed for Pain (scale 7-10). traMADol 50 2020-0 Yes [id number] 50mg Take 1 Univers mg tablet 1-29 tablet by ity o f 00:00: mouth [place] 00 every 6 Medical (six) Branch hours as needed for Pain (scale 7-10). traMADol 50 2020-0 Yes [id number] 50mg Take 1 Univers mg tablet 1-29 tablet by ity o f 00:00: mouth [place] 00 every 6 Medical (six) Branch hours as needed for Pain (scale 7-10). traMADol 50 2020-0 Yes [id number] 50mg Take 1 Univers mg tablet 1-29 tablet by ity o f 00:00: mouth [place] 00 every 6 Medical (six) Branch hours as needed for Pain (scale 7-10). traMADol 50 2020-0 Yes [id number] 50mg Take 1 Univers mg tablet 1-29 tablet by ity o f 00:00: mouth [place] 00 every 6 Medical (six) Branch hours as needed for Pain (scale 7-10). traMADol 50 2020-0 Yes [id number] 50mg Take 1 Univers mg tablet 1-29 tablet by ity o f 00:00: mouth [place] 00 every 6 Medical (six) Branch hours as needed for Pain (scale 7-10). traMADol 50 2020-0 Yes [id number] 50mg Take 1 Univers mg tablet 1-29 tablet by ity o f 00:00: mouth [place] 00 every 6 Medical (six) Branch hours as needed for Pain (scale 7-10). traMADol 50 2020-0 Yes [id number] 50mg Take 1 Univers mg tablet 1-29 tablet by ity o f 00:00: mouth [place] 00 every 6 Medical (six) Branch hours as needed for Pain (scale 7-10). traMADol 50 2020-0 Yes [id number] 50mg Take 1 Univers mg tablet 1-29 tablet by ity o f 00:00: mouth [place] 00 every 6 Medical (six) Branch hours as needed for Pain (scale 7-10). traMADol 50 2020-0 Yes [id number] 50mg Take 1 Univers mg tablet 1-29 tablet by ity o f 00:00: mouth [place] 00 every 6 Medical (six) Branch hours as needed for Pain (scale 7-10). traMADol 50 2020-0 Yes [id number] 50mg Take 1 Univers mg tablet 1-29 tablet by ity o f 00:00: mouth [place] 00 every 6 Medical (six) Branch hours as needed for Pain (scale 7-10). traMADol 50 2020-0 Yes [id number] 50mg Take 1 Univers mg tablet 1-29 tablet by ity o f 00:00: mouth [place] 00 every 6 Medical (six) Branch hours as needed for Pain (scale 7-10). traMADol 50 2020-0 Yes [id number] 50mg Take 1 Univers mg tablet 1-29 tablet by ity o f 00:00: mouth [place] 00 every 6 Medical (six) Branch hours as needed for Pain (scale 7-10). traMADol 50 2020-0 Yes [id number] 50mg Take 1 Univers mg tablet 1-29 tablet by ity o f 00:00: mouth [place] 00 every 6 Medical (six) Branch hours as needed for Pain (scale 7-10). traMADol 50 2020-0 Yes [id number] 50mg Take 1 Univers mg tablet 1-29 tablet by ity o f 00:00: mouth [place] 00 every 6 Medical (six) Branch hours as needed for Pain (scale 7-10). traMADol 50 2020-0 Yes [id number] 50mg Take 1 Univers mg tablet 1-29 tablet by ity o f 00:00: mouth [place] 00 every 6 Medical (six) Branch hours as needed for Pain (scale 7-10). traMADol 50 2020-0 Yes [id number] 50mg Take 1 Univers mg tablet 1-29 tablet by ity o f 00:00: mouth [place] 00 every 6 Medical (six) Branch hours as needed for Pain (scale 7-10). traMADol 50 2020-0 Yes [id number] 50mg Take 1 Univers mg tablet 1-29 tablet by ity o f 00:00: mouth [place] 00 every 6 Medical (six) Branch hours as needed for Pain (scale 7-10). traMADol 50 2020-0 Yes [id number] 50mg Take 1 Univers mg tablet 1-29 tablet by ity o f 00:00: mouth [place] 00 every 6 Medical (six) Branch hours as needed for Pain (scale 7-10). traMADol 50 2020-0 Yes [id number] 50mg Take 1 Univers mg tablet 1-29 tablet by ity o f 00:00: mouth [place] 00 every 6 Medical (six) Branch hours as needed for Pain (scale 7-10). traMADol 50 2020-0 2020- No [id number] 50mg Take 1 Univers mg tablet 1-29 07-31 tablet by ity of 00:00: 00:00 mouth [place] 00 :00 every 6 Medical (six) Branch hours as needed for Pain (scale 7-10). lactated 2020-0 Yes 1000mL at 42 Univer s ringers IV 1-28 mL/hr, ity of infusion 23:00: 1,000 mL, [place] 1,000 [place] 00 IV Medical Infusion, Branch CONTINUOUS , Starting Mon03/12/19 at 1700, Until Discontinu ed, Routine, PACU diphenhydrA 2020-0 Yes 25mg 25 mg, Univ ers MINE 1-28 Oral, ity of (BENADRYL) 22:40: Q4HPRN, [place] tablet 25 19 Starting Medica l mg [facility] 03/12/19 at 1640, Until Discontinu ed, Routine, Itching morpHINE 2020-0 Yes 4mg 4 mg, Slow Uni vers injection 4 03-12 IV Push, ity of mg 22:40: Q4HPRN, [place] 15 Starting Medical [facility] 03/12/19 at 1640, Until Discontinu ed, Routine, For pain unrelieved by oral medication s, or if patient is unable to tolerate oral pain medication . HYDROcodone 2020-0 Yes 1{tbl} 1 tablet, Univers -acetaminop 03-12 Oral, ity of hen (NORCO) 22:40: Q6HPRN, [place] 10-325 mg 10 Starting Medica l tablet 1 [facility] tablet 03/12/19 at 1640, Until Discontinu ed, Routine, Pain (scale 7-10) traMADol 2020-0 Yes 50mg 50 mg, Univers (ULTRAM) 03-12 Oral, ity of tablet 50 22:39: Q6HPRN, [place] mg 58 Starting Medical [facility] 03/12/19 at 1639, Until Discontinu ed, Routine, Pain (scale 4-6) acetaminoph 2020-0 Yes 650mg 650 mg, Un tabitha en 03-12 Oral, ity of (TYLENOL) 22:39: Q6HPRN, [place] tablet 650 50 Starting Medic al mg [facility] 03/12/19 at 1639, Until Discontinu ed, Routine, Pain (scale 1-3), Temp > 38.5 C, Pain Scale 1-3 Or Headache methocarbam 2020-0 Yes 500mg 500 mg, Un tabitha ol 03-12 Oral, ity of (ROBAXIN) 22:39: QIDPRN, [place] tablet 500 47 Starting Medic al mg [facility] 03/12/19 at 1639, Until Discontinu ed, Routine, Muscle Spasms ondansetron 2020-0 Yes 4mg 4 mg, Slow Univers (ZOFRAN 03-12 IV Push, ity of (PF)) 22:39: Q6HPRN, [place] injection 4 32 Starting Medi janis mg [facility] 03/12/19 at 1639, Until Discontinu ed, Routine, Nausea and Vomiting (N/V) lactated 2020-0 2020- No 1000mL at 20 Unive rs ringers IV 03-12 mL/hr, ity of infusion 18:45: 18:41 1,000 mL, [place] 1,000 mL 00 :00 IV Medical Infusion, Branch ONCE, 1 dose, 03/12/19 at 1245, Routine, [facility] Pre-op omeprazole 2020-0 Yes 40mg Take 40 mg U nivers 40 mg 03-11 by mouth. ity of capsule 19:47: [address] omeprazole 2020-0 Yes 40mg Take 40 mg U nivers 40 mg 03-11 by mouth. ity of capsule 19:47: [address] omeprazole 2020-0 2020- No 40mg Take 40 mg Univers (PRILOSEC) 03-11 by mouth ity of 20 mg 19:47: 00:00 daily. [place] capsule 37 :00 [facility] Branch aspirin 325 2020-0 Yes 325mg Take 325 U nivers mg tablet 1-27 mg by ity of 19:43: mouth [place] 16 daily. [facility] Branch citalopram 2020-0 Yes 40mg Take 40 mg U nivers (CELEXA) 40 -27 by mouth ity of mg tablet 19:43: daily. [address] aspirin 325 2020-0 Yes 325mg Take 325 U nivers mg tablet 1-27 mg by ity of 19:43: mouth [place] 16 daily. Medical Branch citalopram 2020-0 Yes 40mg Take 40 mg U nivers (CELEXA) 40 -27 by mouth ity of mg tablet 19:43: daily. [address] insulin 2020-0 Yes [id number] 11U inject 11 Univers glargine 1-23 Units ity of 100 unit/mL 00:00: under the [place] injection 00 skin Medical daily. Branch tamsulosin 2020-0 Yes [id number] .4mg Take 1 Univers 0.4 mg 24 -23 capsule by ity of hr capsule 00:00: mouth [place] 00 daily. Medical Branch insulin 2020-0 Yes [id number] 11U inject 11 Univers glargine 1-23 Units ity of 100 unit/mL 00:00: under the [place] injection 00 skin Medical daily. Branch tamsulosin 2020-0 Yes [id number] .4mg Take 1 Univers 0.4 mg 24 1-23 capsule by ity of hr capsule 00:00: mouth [place] 00 daily. Medical Branch insulin 2020-0 Yes [id number] 11U inject 11 Univers glargine 1-23 Units ity of 100 unit/mL 00:00: under the [place] injection 00 skin Medical daily. Branch tamsulosin 2020-0 Yes [id number] .4mg Take 1 Univers 0.4 mg 24 1-23 capsule by ity of hr capsule 00:00: mouth [place] 00 daily. Medical Branch insulin 2020-0 Yes [id number] 11U inject 11 Univers glargine 1-23 Units ity of 100 unit/mL 00:00: under the [place] injection 00 skin Medical daily. Branch tamsulosin 2020-0 Yes [id number] .4mg Take 1 Univers 0.4 mg 24 1-23 capsule by ity of hr capsule 00:00: mouth [place] 00 daily. Medical Branch insulin 2020-0 Yes [id number] 11U inject 11 [facility] glargine 1-23 Units ity of 100 unit/mL 00:00: under the [place] injection 00 skin Medical daily. Branch tamsulosin 2020-0 Yes [id number] .4mg Take 1 Univers 0.4 mg 24 1-23 capsule by ity of hr capsule 00:00: mouth [place] 00 daily. Medical Branch insulin 2020-0 Yes [id number] 11U inject 11 Univers glargine 1-23 Units ity of 100 unit/mL 00:00: under the [place] injection 00 skin Medical daily. Branch tamsulosin 2020-0 Yes [id number] .4mg Take 1 Univers 0.4 mg 24 1-23 capsule by ity of hr capsule 00:00: mouth [place] 00 daily. Medical Branch insulin 2020-0 Yes [id number] 11U inject 11 Univers glargine 1-23 Units ity of 100 unit/mL 00:00: under the [place] injection 00 skin Medical daily. Branch tamsulosin 2020-0 Yes [id number] .4mg Take 1 Univers 0.4 mg 24 1-23 capsule by ity of hr capsule 00:00: mouth [place] 00 daily. [facility] insulin 2020-0 Yes [id number] 11U inject 11 Univers glargine 1-23 Units ity of 100 unit/mL 00:00: under the [place] injection 00 skin Medical daily. Branch tamsulosin 2020-0 Yes [id number] .4mg Take 1 Univers 0.4 mg 24 1-23 capsule by ity of hr capsule 00:00: mouth [place] 00 daily. Medical Branch insulin 2020-0 Yes [id number] 11U inject 11 [facility] glargine 1-23 Units ity of 100 unit/mL 00:00: under the [place] injection 00 skin Medical daily. Branch tamsulosin 2020-0 Yes [id number] .4mg Take 1 Univers 0.4 mg 24 1-23 capsule by ity of hr capsule 00:00: mouth [place] 00 daily. Medical Branch insulin 2020-0 Yes [id number] 11U inject 11 [facility] glargine 1-23 Units ity of 100 unit/mL 00:00: under the [place] injection 00 skin Medical daily. Branch tamsulosin 2020-0 Yes [id number] .4mg Take 1 Univers 0.4 mg 24 1-23 capsule by ity of hr capsule 00:00: mouth [place] 00 daily. Medical Branch insulin 2020-0 Yes [id number] 11U inject 11 [facility] glargine 1-23 Units ity of 100 unit/mL 00:00: under the [place] injection 00 skin Medical daily. Branch tamsulosin 2020-0 Yes [id number] .4mg Take 1 Univers 0.4 mg 24 1-23 capsule by ity of hr capsule 00:00: mouth [place] 00 daily. Medical Branch insulin 2020-0 Yes [id number] 11U inject 11 [facility] glargine 1-23 Units ity of 100 unit/mL 00:00: under the [place] injection 00 skin Medical daily. Branch tamsulosin 2020-0 Yes [id number] .4mg Take 1 Univers 0.4 mg 24 1-23 capsule by ity of hr capsule 00:00: mouth [place] 00 daily. Medical Branch insulin 2020-0 Yes [id number] 11U inject 11 [facility] glargine 1-23 Units ity of 100 unit/mL 00:00: under the [place] injection 00 skin Medical daily. Branch tamsulosin 2020-0 Yes [id number] .4mg Take 1 [facility] 0.4 mg 24 1-23 capsule by ity of hr capsule 00:00: mouth [place] 00 daily. Medical Branch insulin 2020-0 Yes [id number] 11U inject 11 [facility] glargine 1-23 Units ity of 100 unit/mL 00:00: under the [place] injection 00 skin Medical daily. Branch insulin 2020-0 Yes [id number] 11U inject 11 [facility] glargine 1-23 Units ity of 100 unit/mL 00:00: under the [place] injection 00 skin Medical daily. Branch insulin 2020-0 Yes [id number] 11U inject 11 [facility] glargine 1-23 Units ity of 100 unit/mL 00:00: under the [place] injection 00 skin Medical daily. Branch insulin 2020-0 Yes [id number] 11U inject 11 [facility] glargine 1-23 Units ity of 100 unit/mL 00:00: under the [place] injection 00 skin Medical daily. Branch insulin 2020-0 Yes [id number] 11U inject 11 [facility] glargine 1-23 Units ity of 100 unit/mL 00:00: under the [place] injection 00 skin Medical daily. Branch insulin 2020-0 Yes [id number] 11U inject 11 [facility] glargine 1-23 Units ity of 100 unit/mL 00:00: under the [place] injection 00 skin Medical daily. Branch insulin 2020-0 Yes [id number] 11U inject 11 [facility] glargine 1-23 Units ity of 100 unit/mL 00:00: under the [place] injection 00 skin Medical daily. Branch insulin 2020-0 Yes [id number] 11U inject 11 [facility] glargine 1-23 Units ity of 100 unit/mL 00:00: under the [place] injection 00 skin Medical daily. Branch insulin 2020-0 Yes [id number] 11U inject 11 [facility] glargine 1-23 Units ity of 100 unit/mL 00:00: under the [place] injection 00 skin Medical daily. Branch insulin 2020-0 Yes [id number] 11U inject 11 [facility] glargine 1-23 Units ity of 100 unit/mL 00:00: under the [place] injection 00 skin Medical daily. Branch insulin 2020-0 Yes [id number] 11U inject 11 [facility] glargine 1-23 Units ity of 100 unit/mL 00:00: under the [place] injection 00 skin Medical daily. Branch insulin 2020-0 Yes [id number] 11U inject 11 [facility] glargine 1-23 Units ity of 100 unit/mL 00:00: under the [place] injection 00 skin Medical daily. Branch insulin 2020-0 Yes [id number] 11U inject 11 [facility] glargine 1-23 Units ity of 100 unit/mL 00:00: under the [place] injection 00 skin Medical daily. Branch insulin 2020-0 Yes [id number] 11U inject 11 [facility] glargine 1-23 Units ity of 100 unit/mL 00:00: under the [place] injection 00 skin Medical daily. Branch insulin 2020-0 Yes [id number] 11U inject 11 [facility] glargine 1-23 Units ity of 100 unit/mL 00:00: under the [place] injection 00 skin Medical daily. Branch insulin 2020-0 Yes [id number] 11U inject 11 [facility] glargine 1-23 Units ity of 100 unit/mL 00:00: under the [place] injection 00 skin Medical daily. Branch insulin 2020-0 Yes [id number] 11U inject 11 [facility] glargine 1-23 Units ity of 100 unit/mL 00:00: under the [place] injection 00 skin Medical daily. Branch insulin 2020-0 Yes [id number] 11U inject 11 [facility] glargine 1-23 Units ity of 100 unit/mL 00:00: under the [place] injection 00 skin Medical daily. Branch insulin 2020-0 Yes [id number] 11U inject 11 [facility] glargine 1-23 Units ity of 100 unit/mL 00:00: under the [place] injection 00 skin Medical daily. Branch insulin 2020-0 Yes [id number] 11U inject 11 [facility] glargine 1-23 Units ity of 100 unit/mL 00:00: under the [place] injection 00 skin Medical daily. Branch insulin 2020-0 Yes [id number] 11U inject 11 [facility] glargine 1-23 Units ity of 100 unit/mL 00:00: under the [place] injection 00 skin Medical daily. Branch insulin 2020-0 Yes [id number] 11U inject 11 [facility] glargine 1-23 Units ity of 100 unit/mL 00:00: under the [place] injection 00 skin Medical daily. Branch insulin 2020-0 Yes [id number] 11U inject 11 [facility] glargine 1-23 Units ity of 100 unit/mL 00:00: under the [place] injection 00 skin Medical daily. Branch insulin 2020-0 Yes [id number] 11U inject 11 [facility] glargine 1-23 Units ity of 100 unit/mL 00:00: under the [place] injection 00 skin Medical daily. Branch insulin 2020-0 Yes [id number] 11U inject 11 [facility] glargine 1-23 Units ity of 100 unit/mL 00:00: under the [place] injection 00 skin Medical daily. Branch insulin 2020-0 Yes [id number] 11U inject 11 [facility] glargine 1-23 Units ity of 100 unit/mL 00:00: under the [place] injection 00 skin Medical daily. Branch insulin 2020-0 Yes [id number] 11U inject 11 [facility] glargine 1-23 Units ity of 100 unit/mL 00:00: under the [place] injection 00 skin Medical daily. Branch insulin 2020-0 Yes [id number] 11U inject 11 [facility] glargine 1-23 Units ity of 100 unit/mL 00:00: under the [place] injection 00 skin Medical daily. Branch insulin 2020-0 Yes [id number] 11U inject 11 [facility] glargine 1-23 Units ity of 100 unit/mL 00:00: under the [place] injection 00 skin Medical daily. Branch insulin 2020-0 Yes [id number] 11U inject 11 [facility] glargine 1-23 Units ity of 100 unit/mL 00:00: under the [place] injection 00 skin Medical daily. Branch insulin 2020-0 Yes [id number] 11U inject 11 [facility] glargine 1-23 Units ity of 100 unit/mL 00:00: under the [place] injection 00 skin Medical daily. Branch insulin 2020-0 Yes [id number] 11U inject 11 [facility] glargine 1-23 Units ity of 100 unit/mL 00:00: under the [place] injection 00 skin Medical daily. Branch lisinopril 2020-0 Yes [id number] 20mg Take 1 [facility] 20 mg 1-23 tablet by ity of tablet 00:00: mouth [place] 00 daily. Medical Branch insulin 2020-0 Yes [id number] 11U inject 11 [facility] glargine 1-23 Units ity of 100 unit/mL 00:00: under the [place] injection 00 skin Medical daily. Branch tamsulosin 2020-0 Yes [id number] .4mg Take 1 [facility] 0.4 mg 24 1-23 capsule by ity of hr capsule 00:00: mouth [place] 00 daily. Medical Branch lisinopril 2020-0 Yes [id number] 20mg Take 1 [facility] 20 mg 1-23 tablet by ity of tablet 00:00: mouth [place] 00 daily. Medical Branch insulin 2020-0 Yes [id number] 11U inject 11 [facility] glargine 1-23 Units ity of 100 unit/mL 00:00: under the [place] injection 00 skin Medical daily. Branch tamsulosin 2020-0 Yes [id number] .4mg Take 1 [facility] 0.4 mg 24 1-23 capsule by ity of hr capsule 00:00: mouth [place] 00 daily. Medical [facility] lisinopril 2020-0 Yes [id number] 20mg Take 1 [facility] 20 mg 1-23 tablet by ity of tablet 00:00: mouth [place] 00 daily. Medical [facility] insulin 2020-0 Yes [id number] 11U inject 11 [facility] glargine 1-23 Units ity of 100 unit/mL 00:00: under the [place] injection 00 skin Medical daily. Branch tamsulosin 2020-0 Yes [id number] .4mg Take 1 [facility] 0.4 mg 24 1-23 capsule by ity of hr capsule 00:00: mouth [place] 00 daily. Medical [facility] lisinopril 2020-0 Yes [id number] 20mg Take 1 [facility] 20 mg 1-23 tablet by ity of tablet 00:00: mouth [place] 00 daily. Medical [facility] insulin 2020-0 Yes [id number] 11U inject 11 [facility] glargine 1-23 Units ity of 100 unit/mL 00:00: under the [place] injection 00 skin Medical daily. Branch tamsulosin 2020-0 Yes [id number] .4mg Take 1 [facility] 0.4 mg 24 1-23 capsule by ity of hr capsule 00:00: mouth [place] 00 daily. Medical [facility] lisinopril 2020-0 Yes [id number] 20mg Take 1 [facility] 20 mg 1-23 tablet by ity of tablet 00:00: mouth [place] 00 daily. Medical [facility] insulin 2020-0 Yes [id number] 11U inject 11 [facility] glargine 1-23 Units ity of 100 unit/mL 00:00: under the [place] injection 00 skin Medical daily. Branch tamsulosin 2020-0 Yes [id number] .4mg Take 1 [facility] 0.4 mg 24 1-23 capsule by ity of hr capsule 00:00: mouth [place] 00 daily. Medical [facility] lisinopril 2020-0 Yes [id number] 20mg Take 1 [facility] 20 mg 1-23 tablet by ity of tablet 00:00: mouth [place] 00 daily. Medical [facility] insulin 2020-0 Yes [id number] 11U inject 11 [facility] glargine 1-23 Units ity of 100 unit/mL 00:00: under the [place] injection 00 skin Medical daily. Branch tamsulosin 2020-0 Yes [id number] .4mg Take 1 [facility] 0.4 mg 24 1-23 capsule by ity of hr capsule 00:00: mouth [place] 00 daily. Medical [facility] insulin 2020-0 Yes [id number] 11U inject 11 [facility] glargine 1-23 Units ity of 100 unit/mL 00:00: under the [place] injection 00 skin Medical daily. Branch tamsulosin 2020-0 Yes [id number] .4mg Take 1 [facility] 0.4 mg 24 1-23 capsule by ity of hr capsule 00:00: mouth [place] 00 daily. Medical [facility] insulin 2020-0 Yes [id number] 11U inject 11 [facility] glargine 1-23 Units ity of 100 unit/mL 00:00: under the [place] injection 00 skin Medical daily. Branch tamsulosin 2020-0 Yes [id number] .4mg Take 1 [facility] 0.4 mg 24 1-23 capsule by ity of hr capsule 00:00: mouth [place] 00 daily. Medical [facility] insulin 2020-0 Yes [id number] 11U inject 11 [facility] glargine 1-23 Units ity of 100 unit/mL 00:00: under the [place] injection 00 skin Medical daily. Branch tamsulosin 2020-0 Yes [id number] .4mg Take 1 [facility] 0.4 mg 24 1-23 capsule by ity of hr capsule 00:00: mouth [place] 00 daily. Medical [facility] insulin 2020-0 Yes [id number] 11U inject 11 [facility] glargine 1-23 Units ity of 100 unit/mL 00:00: under the [place] injection 00 skin Medical daily. Branch tamsulosin 2020-0 Yes [id number] .4mg Take 1 [facility] 0.4 mg 24 1-23 capsule by ity of hr capsule 00:00: mouth [place] 00 daily. Medical [facility] insulin 2020-0 Yes [id number] 11U inject 11 [facility] glargine 1-23 Units ity of 100 unit/mL 00:00: under the [place] injection 00 skin Medical daily. Branch tamsulosin 2020-0 Yes [id number] .4mg Take 1 [facility] 0.4 mg 24 1-23 capsule by ity of hr capsule 00:00: mouth [place] 00 daily. Medical [facility] insulin 2020-0 Yes [id number] 11U inject 11 [facility] glargine 1-23 Units ity of 100 unit/mL 00:00: under the [place] injection 00 skin Medical daily. Branch tamsulosin 2020-0 Yes [id number] .4mg Take 1 [facility] 0.4 mg 24 1-23 capsule by ity of hr capsule 00:00: mouth [place] 00 daily. Medical [facility] insulin 2020-0 Yes [id number] 11U inject 11 [facility] glargine 1-23 Units ity of 100 unit/mL 00:00: under the [place] injection 00 skin Medical daily. Branch tamsulosin 2020-0 Yes [id number] .4mg Take 1 [facility] 0.4 mg 24 1-23 capsule by ity of hr capsule 00:00: mouth [place] 00 daily. Medical [facility] insulin 2020-0 Yes [id number] 11U inject 11 [facility] glargine 1-23 Units ity of 100 unit/mL 00:00: under the [place] injection 00 skin Medical daily. Branch tamsulosin 2020-0 Yes [id number] .4mg Take 1 [facility] 0.4 mg 24 1-23 capsule by ity of hr capsule 00:00: mouth [place] 00 daily. Medical [facility] insulin 2020-0 Yes [id number] 11U inject 11 [facility] glargine 1-23 Units ity of 100 unit/mL 00:00: under the [place] injection 00 skin Medical daily. Branch tamsulosin 2020-0 Yes [id number] .4mg Take 1 [facility] 0.4 mg 24 1-23 capsule by ity of hr capsule 00:00: mouth [place] 00 daily. Medical [facility] insulin 2020-0 Yes [id number] 11U inject 11 [facility] glargine 1-23 Units ity of 100 unit/mL 00:00: under the [place] injection 00 skin Medical daily. Branch tamsulosin 2020-0 Yes [id number] .4mg Take 1 [facility] 0.4 mg 24 1-23 capsule by ity of hr capsule 00:00: mouth [place] 00 daily. Medical [facility] insulin 2020-0 Yes [id number] 11U inject 11 [facility] glargine 1-23 Units ity of 100 unit/mL 00:00: under the [place] injection 00 skin Medical daily. Branch tamsulosin 2020-0 Yes [id number] .4mg Take 1 [facility] 0.4 mg 24 1-23 capsule by ity of hr capsule 00:00: mouth [place] 00 daily. Medical [facility] insulin 2020-0 Yes [id number] 11U inject 11 [facility] glargine 1-23 Units ity of 100 unit/mL 00:00: under the [place] injection 00 skin Medical daily. Branch tamsulosin 2020-0 Yes [id number] .4mg Take 1 [facility] 0.4 mg 24 1-23 capsule by ity of hr capsule 00:00: mouth [place] 00 daily. Medical [facility] insulin 2020-0 Yes [id number] 11U inject 11 [facility] glargine 1-23 Units ity of 100 unit/mL 00:00: under the [place] injection 00 skin Medical daily. Branch tamsulosin 2020-0 Yes [id number] .4mg Take 1 [facility] 0.4 mg 24 1-23 capsule by ity of hr capsule 00:00: mouth [place] 00 daily. Medical Branch insulin 2020-0 Yes [id number] 11U inject 11 [facility] glargine 1-23 Units ity of 100 unit/mL 00:00: under the [place] injection 00 skin Medical daily. Branch tamsulosin 2020-0 Yes [id number] .4mg Take 1 [facility] 0.4 mg 24 1-23 capsule by ity of hr capsule 00:00: mouth [place] 00 daily. [facility] Branch insulin 2020-0 Yes [id number] 11U inject 11 [facility] glargine 1-23 Units ity of 100 unit/mL 00:00: under the [place] injection 00 skin Medical daily. Branch tamsulosin 2020-0 Yes [id number] .4mg Take 1 [facility] 0.4 mg 24 1-23 capsule by ity of hr capsule 00:00: mouth [place] 00 daily. Medical Branch insulin 2020-0 Yes [id number] 11U inject 11 [facility] glargine 1-23 Units ity of 100 unit/mL 00:00: under the [place] injection 00 skin Medical daily. Branch tamsulosin 2020-0 Yes [id number] .4mg Take 1 [facility] 0.4 mg 24 1-23 capsule by ity of hr capsule 00:00: mouth [place] 00 daily. Medical Branch insulin 2020-0 Yes [id number] 11U inject 11 [facility] glargine 1-23 Units ity of 100 unit/mL 00:00: under the [place] injection 00 skin Medical daily. Branch tamsulosin 2020-0 Yes [id number] .4mg Take 1 [facility] 0.4 mg 24 1-23 capsule by ity of hr capsule 00:00: mouth [place] 00 daily. Medical Branch insulin 2020-0 Yes [id number] 11U inject 11 [facility] glargine 1-23 Units ity of 100 unit/mL 00:00: under the [place] injection 00 skin Medical daily. Branch tamsulosin 2020-0 Yes [id number] .4mg Take 1 [facility] 0.4 mg 24 1-23 capsule by ity of hr capsule 00:00: mouth [place] 00 daily. Medical Branch insulin 2020-0 Yes [id number] 11U inject 11 [facility] glargine 1-23 Units ity of 100 unit/mL 00:00: under the [place] injection 00 skin Medical daily. Branch tamsulosin 2020-0 Yes [id number] .4mg Take 1 [facility] 0.4 mg 24 1-23 capsule by ity of hr capsule 00:00: mouth [place] 00 daily. Medical Branch insulin 2020-0 Yes [id number] 11U inject 11 [facility] glargine 1-23 Units ity of 100 unit/mL 00:00: under the [place] injection 00 skin Medical daily. Branch tamsulosin 2020-0 Yes [id number] .4mg Take 1 [facility] 0.4 mg 24 1-23 capsule by ity of hr capsule 00:00: mouth [place] 00 daily. Medical Branch insulin 2020-0 Yes [id number] 11U inject 11 [facility] glargine 1-23 Units ity of 100 unit/mL 00:00: under the [place] injection 00 skin Medical daily. Branch tamsulosin 2020-0 Yes [id number] .4mg Take 1 [facility] 0.4 mg 24 1-23 capsule by ity of hr capsule 00:00: mouth [place] 00 daily. Medical Branch insulin 2020-0 Yes [id number] 11U inject 11 [facility] glargine 1-23 Units ity of 100 unit/mL 00:00: under the [place] injection 00 skin Medical daily. Branch tamsulosin 2020-0 Yes [id number] .4mg Take 1 [facility] 0.4 mg 24 1-23 capsule by ity of hr capsule 00:00: mouth [place] 00 daily. Medical Branch insulin 2020-0 Yes [id number] 11U inject 11 [facility] glargine 1-23 Units ity of 100 unit/mL 00:00: under the [place] injection 00 skin Medical daily. Branch tamsulosin 2020-0 Yes [id number] .4mg Take 1 [facility] 0.4 mg 24 1-23 capsule by ity of hr capsule 00:00: mouth [place] 00 daily. Medical Branch insulin 2020-0 Yes [id number] 11U inject 11 [facility] glargine 1-23 Units ity of 100 unit/mL 00:00: under the [place] injection 00 skin Medical daily. Branch tamsulosin 2020-0 Yes [id number] .4mg Take 1 [facility] 0.4 mg 24 1-23 capsule by ity of hr capsule 00:00: mouth [place] 00 daily. Medical Branch insulin 2020-0 Yes [id number] 11U inject 11 [facility] glargine 1-23 Units ity of 100 unit/mL 00:00: under the [place] injection 00 skin Medical daily. Branch tamsulosin 2020-0 Yes [id number] .4mg Take 1 [facility] 0.4 mg 24 1-23 capsule by ity of hr capsule 00:00: mouth [place] 00 daily. Medical Branch insulin 2020-0 Yes [id number] 11U inject 11 [facility] glargine 1-23 Units ity of 100 unit/mL 00:00: under the [place] injection 00 skin Medical daily. Branch tamsulosin 2020-0 Yes [id number] .4mg Take 1 [facility] 0.4 mg 24 1-23 capsule by ity of hr capsule 00:00: mouth [place] 00 daily. Medical Branch insulin 2020-0 Yes [id number] 11U inject 11 [facility] glargine 1-23 Units ity of 100 unit/mL 00:00: under the [place] injection 00 skin Medical daily. Branch tamsulosin 2020-0 Yes [id number] .4mg Take 1 [facility] 0.4 mg 24 1-23 capsule by ity of hr capsule 00:00: mouth [place] 00 daily. Medical Branch insulin 2020-0 Yes [id number] 11U inject 11 [facility] glargine 1-23 Units ity of 100 unit/mL 00:00: under the [place] injection 00 skin Medical daily. Branch tamsulosin 2019-0 Yes [id number] .4mg Take 1 [facility] 0.4 mg 24 1-23 capsule by ity of hr capsule 00:00: mouth [place] 00 daily. Medical Branch insulin 2019-0 Yes [id number] 11U inject 11 [facility] glargine 1-23 Units ity of 100 unit/mL 00:00: under the [place] injection 00 skin Medical daily. Branch tamsulosin 2019-0 Yes [id number] .4mg Take 1 [facility] 0.4 mg 24 1-23 capsule by ity of hr capsule 00:00: mouth [place] 00 daily. Medical [place] insulin 2019-0 2021- No [id number] 11U inject 11 [facility] glargine 1-23 10-20 Units ity of 100 unit/mL 00:00: 00:00 under the [place] injection 00 :00 skin Medical daily. Branch insulin 2019-0 2021- No [id number] 11U inject 11 [facility] glargine 1-23 10-20 Units ity of 100 unit/mL 00:00: 00:00 under the [place] injection 00 :00 skin Medical daily. Branch insulin 2019-0 2021- No [id number] 11U inject 11 [facility] glargine 1-23 10-20 Units ity of 100 unit/mL 00:00: 00:00 under the [place] injection 00 :00 skin Medical daily. Branch insulin 2019-0 2021- No [id number] 11U inject 11 [facility] glargine 1-23 10-20 Units ity of 100 unit/mL 00:00: 00:00 under the [place] injection 00 :00 skin Medical daily. Branch tamsulosin 0 2020- No [id number] .4mg Take 1 [facility] 0.4 mg 24 1-23 07-31 capsule by ity of hr capsule 00:00: 00:00 mouth [place] 00 :00 daily. Medical Branch lisinopril 2020-0 2020- No [id number] 20mg Take 1 [facility] 20 mg 03-07 tablet by ity of tablet 00:00: 00:00 mouth [place] 00 :00 daily. Medical Branch omeprazole 2020-0 Yes 40mg Take 40 mg U nivers (PRILOSEC) 1-22 by mouth ity o f 20 mg 21:58: daily. [place] capsule 59 Medical Branch aspirin 325 2020-0 Yes 325mg Take 325 U nivers mg tablet 1-22 mg by ity of 21:58: mouth [place] 59 daily. Medical Branch citalopram 2020-0 Yes 40mg Take 40 mg U nivers (CELEXA) 40 1-22 by mouth ity of mg tablet 21:58: daily. [place] 59 Medical Branch omeprazole 2020-0 Yes 40mg Take 40 mg U nivers (PRILOSEC) 1-22 by mouth ity o f 20 mg 21:58: daily. [place] capsule 59 Medical Branch aspirin 325 2020-0 Yes 325mg Take 325 U nivers mg tablet 1-22 mg by ity of 21:58: mouth [place] 59 daily. Medical Branch citalopram 2020-0 Yes 40mg Take 40 mg U nivers (CELEXA) 40 1-22 by mouth ity of mg tablet 21:58: daily. [place] [address] Medical Branch omeprazole 2020-0 Yes 40mg Take 40 mg U nivers (PRILOSEC) 1-22 by mouth ity o f 20 mg 21:58: daily. [place] capsule 59 Medical Branch aspirin 325 2020-0 Yes 325mg Take 325 U nivers mg tablet 1-22 mg by ity of 21:58: mouth [place] 59 daily. Medical Branch citalopram 2020-0 Yes 40mg Take 40 mg U nivers (CELEXA) 40 1-22 by mouth ity of mg tablet 21:58: daily. [place] [address] Medical Branch omeprazole 2020-0 Yes 40mg Take 40 mg U nivers (PRILOSEC) 1-22 by mouth ity o f 20 mg 21:58: daily. [place] capsule 59 Medical Branch aspirin 325 2020-0 Yes 325mg Take 325 U nivers mg tablet 1-22 mg by ity of 21:58: mouth [place] 59 daily. Medical Branch citalopram 2020-0 Yes 40mg Take 40 mg U nivers (CELEXA) 40 -22 by mouth ity of mg tablet 21:58: daily. [place] [address] Medical Branch omeprazole 2020-0 Yes 40mg Take 40 mg U nivers (PRILOSEC) 1-22 by mouth ity o f 20 mg 21:58: daily. [place] capsule 59 Medical Branch aspirin 325 2020-0 Yes 325mg Take 325 U nivers mg tablet 1-22 mg by ity of 21:58: mouth [place] 59 daily. Medical Branch citalopram 2020-0 Yes 40mg Take 40 mg U nivers (CELEXA) 40 1-22 by mouth ity of mg tablet 21:58: daily. [place] [address] Medical Branch omeprazole 2020-0 Yes 40mg Take 40 mg U nivers (PRILOSEC) -22 by mouth ity o f 20 mg 21:58: daily. [facility] 59 Medical Branch aspirin 325 2020-0 Yes 325mg Take 325 U nivers mg tablet 1-22 mg by ity of 21:58: mouth [place] 59 daily. Medical Branch citalopram 2020-0 Yes 40mg Take 40 mg U nivers (CELEXA) 40 -22 by mouth ity of mg tablet 21:58: daily. [place] [address] Medical Branch insulin NPH 2020-0 2020- No inject Uni vers 100 unit/mL 03-06 under the it y of injection 17:40: 00:00 skin 3 [place] 52 :00 (three) Medical times Branch daily. Sliding scale TID lisinopril 2020-0 Yes 20mg 20 mg, Unive rs (PRINIVIL,Z 03-06 Oral, ity of ESTRIL) 15:00: DAILY, [place] tablet 20 00 First dose Medi janis mg on Mon Branch 03/06/19 at 0900, Until Discontinu ed, Routine insulin 2020-0 Yes 11U 11 Units, Unive rs glargine 03-06 Subcutaneo ity o f (LANTUS 15:00: [place], DAILY, [place] U-100) 00 First dose Medical injection on Mon Branch 11 Units 03/06/19 at 0900, Until Discontinu ed, Routine insulin 2020-0 Yes 4U 4 Units, Univer s aspart 03-06 Subcutaneo ity of RAPID 13:30: , [place], [place] (NOVOLOG 00 First dose Medic al U-100 on Wed Branch INSULIN 03/06/19 at ASPART) 0730, injection 4 Until Units Discontinu ed, Routine insulin 2020-0 Yes [id number] 4U inject 4 U nivers aspart 1-22 Units ity of RAPID 100 00:00: under the [place] unit/mL 00 skin 3 Medical injection (three) Branch times daily before meals. insulin 2020-0 Yes [id number] 4U inject 4 U nivers aspart 1-22 Units ity of RAPID 100 00:00: under the [place] unit/mL 00 skin 3 Medical injection (three) Branch times daily before meals. insulin 2020-0 Yes [id number] 4U inject 4 U nivers aspart 1-22 Units ity of RAPID 100 00:00: under the [place] unit/mL 00 skin 3 Medical injection (three) Branch times daily before meals. insulin 2020-0 Yes [id number] 4U inject 4 U nivers aspart 1-22 Units ity of RAPID 100 00:00: under the [place] unit/mL 00 skin 3 Medical injection (three) Branch times daily before meals. insulin 2020-0 Yes [id number] 4U inject 4 U nivers aspart 1-22 Units ity of RAPID 100 00:00: under the [place] unit/mL 00 skin 3 Medical injection (three) Branch times daily before meals. insulin 2020-0 Yes [id number] 4U inject 4 U nivers aspart 1-22 Units ity of RAPID 100 00:00: under the [place] unit/mL 00 skin 3 Medical injection (three) Branch times daily before meals. insulin 2020-0 Yes [id number] 4U inject 4 U nivers aspart 1-22 Units ity of RAPID 100 00:00: under the [place] unit/mL 00 skin 3 Medical injection (three) Branch times daily before meals. insulin 2020-0 Yes [id number] 4U inject 4 U nivers aspart 1-22 Units ity of RAPID 100 00:00: under the [place] unit/mL 00 skin 3 Medical injection (three) Branch times daily before meals. insulin 2020-0 Yes [id number] 4U inject 4 U nivers aspart 1-22 Units ity of RAPID 100 00:00: under the [place] unit/mL 00 skin 3 Medical injection (three) Branch times daily before meals. insulin 2020-0 Yes [id number] 4U inject 4 U nivers aspart 1-22 Units ity of RAPID 100 00:00: under the [place] unit/mL 00 skin 3 Medical injection (three) Branch times daily before meals. insulin 2020-0 Yes [id number] 4U inject 4 U nivers aspart 1-22 Units ity of RAPID 100 00:00: under the [place] unit/mL 00 skin 3 Medical injection (three) Branch times daily before meals. insulin 2020-0 Yes [id number] 4U inject 4 U nivers aspart 1-22 Units ity of RAPID 100 00:00: under the [place] unit/mL 00 skin 3 Medical injection (three) Branch times daily before meals. insulin 2020-0 Yes [id number] 4U inject 4 U nivers aspart 1-22 Units ity of RAPID 100 00:00: under the [place] unit/mL 00 skin 3 Medical injection (three) Branch times daily before meals. insulin 2020-0 Yes [id number] 4U inject 4 U nivers aspart 1-22 Units ity of RAPID 100 00:00: under the [place] unit/mL 00 skin 3 Medical injection (three) Branch times daily before meals. insulin 2020-0 Yes [id number] 4U inject 4 U nivers aspart 1-22 Units ity of RAPID 100 00:00: under the [place] unit/mL 00 skin 3 Medical injection (three) Branch times daily before meals. insulin 2020-0 Yes [id number] 4U inject 4 U nivers aspart 1-22 Units ity of RAPID 100 00:00: under the [place] unit/mL 00 skin 3 Medical injection (three) Branch times daily before meals. insulin 2020-0 Yes [id number] 4U inject 4 U nivers aspart 1-22 Units ity of RAPID 100 00:00: under the [place] unit/mL 00 skin 3 Medical injection (three) Branch times daily before meals. insulin 2020-0 Yes [id number] 4U inject 4 U nivers aspart 1-22 Units ity of RAPID 100 00:00: under the [place] unit/mL 00 skin 3 Medical injection (three) Branch times daily before meals. insulin 2020-0 Yes [id number] 4U inject 4 U nivers aspart 1-22 Units ity of RAPID 100 00:00: under the [place] unit/mL 00 skin 3 Medical injection (three) Branch times daily before meals. insulin 2020-0 Yes [id number] 4U inject 4 U nivers aspart 1-22 Units ity of RAPID 100 00:00: under the [place] unit/mL 00 skin 3 Medical injection (three) Branch times daily before meals. insulin 2020-0 Yes [id number] 4U inject 4 U nivers aspart 1-22 Units ity of RAPID 100 00:00: under the [place] unit/mL 00 skin 3 Medical injection (three) Branch times daily before meals. insulin 2020-0 Yes [id number] 4U inject 4 U nivers aspart 1-22 Units ity of RAPID 100 00:00: under the [place] unit/mL 00 skin 3 Medical injection (three) Branch times daily before meals. insulin 2020-0 Yes [id number] 4U inject 4 U nivers aspart 1-22 Units ity of RAPID 100 00:00: under the [place] unit/mL 00 skin 3 Medical injection (three) Branch times daily before meals. insulin 2020-0 Yes [id number] 4U inject 4 U nivers aspart 1-22 Units ity of RAPID 100 00:00: under the [place] unit/mL 00 skin 3 Medical injection (three) Branch times daily before meals. insulin 2020-0 Yes [id number] 4U inject 4 U nivers aspart 1-22 Units ity of RAPID 100 00:00: under the [place] unit/mL 00 skin 3 Medical injection (three) Branch times daily before meals. insulin 2020-0 Yes [id number] 4U inject 4 U nivers aspart 1-22 Units ity of RAPID 100 00:00: under the [place] unit/mL 00 skin 3 Medical injection (three) Branch times daily before meals. insulin 2020-0 Yes [id number] 4U inject 4 U nivers aspart 1-22 Units ity of RAPID 100 00:00: under the [place] unit/mL 00 skin 3 Medical injection (three) Branch times daily before meals. insulin 2020-0 Yes [id number] 4U inject 4 U nivers aspart 1-22 Units ity of RAPID 100 00:00: under the [place] unit/mL 00 skin 3 Medical injection (three) Branch times daily before meals. insulin 2020-0 Yes [id number] 4U inject 4 U nivers aspart 1-22 Units ity of RAPID 100 00:00: under the [place] unit/mL 00 skin 3 Medical injection (three) Branch times daily before meals. insulin 2020-0 Yes [id number] 4U inject 4 U nivers aspart 1-22 Units ity of RAPID 100 00:00: under the [place] unit/mL 00 skin 3 Medical injection (three) Branch times daily before meals. insulin 2020-0 Yes [id number] 4U inject 4 U nivers aspart 1-22 Units ity of RAPID 100 00:00: under the [place] unit/mL 00 skin 3 Medical injection (three) Branch times daily before meals. insulin 2020-0 Yes [id number] 4U inject 4 U nivers aspart 1-22 Units ity of RAPID 100 00:00: under the [place] unit/mL 00 skin 3 Medical injection (three) Branch times daily before meals. insulin 2020-0 Yes [id number] 4U inject 4 U nivers aspart 1-22 Units ity of RAPID 100 00:00: under the [place] unit/mL 00 skin 3 Medical injection (three) Branch times daily before meals. insulin 2020-0 Yes [id number] 4U inject 4 U nivers aspart 1-22 Units ity of RAPID 100 00:00: under the [place] unit/mL 00 skin 3 Medical injection (three) Branch times daily before meals. insulin 2020-0 Yes [id number] 4U inject 4 U nivers aspart 1-22 Units ity of RAPID 100 00:00: under the [place] unit/mL 00 skin 3 Medical injection (three) Branch times daily before meals. insulin 2020-0 Yes [id number] 4U inject 4 U nivers aspart 1-22 Units ity of RAPID 100 00:00: under the [place] unit/mL 00 skin 3 Medical injection (three) Branch times daily before meals. insulin 2020-0 Yes [id number] 4U inject 4 U nivers aspart 1-22 Units ity of RAPID 100 00:00: under the [place] unit/mL 00 skin 3 Medical injection (three) Branch times daily before meals. insulin 2020-0 Yes [id number] 4U inject 4 U nivers aspart 1-22 Units ity of RAPID 100 00:00: under the [place] unit/mL 00 skin 3 Medical injection (three) Branch times daily before meals. insulin 2020-0 Yes [id number] 4U inject 4 U nivers aspart 1-22 Units ity of RAPID 100 00:00: under the [place] unit/mL 00 skin 3 Medical injection (three) Branch times daily before meals. insulin 2020-0 Yes [id number] 4U inject 4 U nivers aspart 1-22 Units ity of RAPID 100 00:00: under the [place] unit/mL 00 skin 3 Medical injection (three) Branch times daily before meals. insulin 2020-0 Yes [id number] 4U inject 4 U nivers aspart 1-22 Units ity of RAPID 100 00:00: under the [place] unit/mL 00 skin 3 Medical injection (three) Branch times daily before meals. insulin 2020-0 Yes [id number] 4U inject 4 U nivers aspart 1-22 Units ity of RAPID 100 00:00: under the [place] unit/mL 00 skin 3 Medical injection (three) Branch times daily before meals. insulin 2020-0 Yes [id number] 4U inject 4 U nivers aspart 1-22 Units ity of RAPID 100 00:00: under the [place] unit/mL 00 skin 3 Medical injection (three) Branch times daily before meals. insulin 2020-0 Yes [id number] 4U inject 4 U nivers aspart 1-22 Units ity of RAPID 100 00:00: under the [place] unit/mL 00 skin 3 Medical injection (three) Branch times daily before meals. insulin 2020-0 Yes [id number] 4U inject 4 U nivers aspart 1-22 Units ity of RAPID 100 00:00: under the [place] unit/mL 00 skin 3 Medical injection (three) Branch times daily before meals. insulin 2020-0 Yes [id number] 4U inject 4 U nivers aspart 1-22 Units ity of RAPID 100 00:00: under the [place] unit/mL 00 skin 3 Medical injection (three) Branch times daily before meals. insulin 2020-0 Yes [id number] 4U inject 4 U nivers aspart 1-22 Units ity of RAPID 100 00:00: under the [place] unit/mL 00 skin 3 Medical injection (three) Branch times daily before meals. insulin 2020-0 Yes [id number] 4U inject 4 U nivers aspart 1-22 Units ity of RAPID 100 00:00: under the [place] unit/mL 00 skin 3 Medical injection (three) Branch times daily before meals. insulin 2020-0 Yes [id number] 4U inject 4 U nivers aspart 1-22 Units ity of RAPID 100 00:00: under the [place] unit/mL 00 skin 3 Medical injection (three) Branch times daily before meals. insulin 2020-0 Yes [id number] 4U inject 4 U nivers aspart 1-22 Units ity of RAPID 100 00:00: under the [place] unit/mL 00 skin 3 Medical injection (three) Branch times daily before meals. insulin 2020-0 Yes [id number] 4U inject 4 U nivers aspart 1-22 Units ity of RAPID 100 00:00: under the [place] unit/mL 00 skin 3 Medical injection (three) Branch times daily before meals. insulin 2020-0 Yes [id number] 4U inject 4 U nivers aspart 1-22 Units ity of RAPID 100 00:00: under the [place] unit/mL 00 skin 3 Medical injection (three) Branch times daily before meals. insulin 2020-0 Yes [id number] 4U inject 4 U nivers aspart 1-22 Units ity of RAPID 100 00:00: under the [place] unit/mL 00 skin 3 Medical injection (three) Branch times daily before meals. insulin 2020-0 Yes [id number] 4U inject 4 U nivers aspart 1-22 Units ity of RAPID 100 00:00: under the [place] unit/mL 00 skin 3 Medical injection (three) Branch times daily before meals. insulin 2020-0 Yes [id number] 4U inject 4 U nivers aspart 1-22 Units ity of RAPID 100 00:00: under the [place] unit/mL 00 skin 3 Medical injection (three) Branch times daily before meals. insulin 2020-0 Yes [id number] 4U inject 4 U nivers aspart 1-22 Units ity of RAPID 100 00:00: under the [place] unit/mL 00 skin 3 Medical injection (three) Branch times daily before meals. insulin 2020-0 Yes [id number] 4U inject 4 U nivers aspart 1-22 Units ity of RAPID 100 00:00: under the [place] unit/mL 00 skin 3 Medical injection (three) Branch times daily before meals. insulin 2020-0 Yes [id number] 4U inject 4 U nivers aspart 1-22 Units ity of RAPID 100 00:00: under the [place] unit/mL 00 skin 3 Medical injection (three) Branch times daily before meals. insulin 2020-0 Yes [id number] 4U inject 4 U nivers aspart 1-22 Units ity of RAPID 100 00:00: under the [place] unit/mL 00 skin 3 Medical injection (three) Branch times daily before meals. insulin 2020-0 Yes [id number] 4U inject 4 U nivers aspart 1-22 Units ity of RAPID 100 00:00: under the [place] unit/mL 00 skin 3 Medical injection (three) Branch times daily before meals. insulin 2020-0 Yes [id number] 4U inject 4 U nivers aspart 1-22 Units ity of RAPID 100 00:00: under the [place] unit/mL 00 skin 3 Medical injection (three) Branch times daily before meals. insulin 2020-0 Yes [id number] 4U inject 4 U nivers aspart 1-22 Units ity of RAPID 100 00:00: under the [place] unit/mL 00 skin 3 Medical injection (three) Branch times daily before meals. insulin 2020-0 Yes [id number] 4U inject 4 U nivers aspart 1-22 Units ity of RAPID 100 00:00: under the [place] unit/mL 00 skin 3 Medical injection (three) Branch times daily before meals. insulin 2020-0 Yes [id number] 4U inject 4 U nivers aspart 1-22 Units ity of RAPID 100 00:00: under the [place] unit/mL 00 skin 3 Medical injection (three) Branch times daily before meals. insulin 2020-0 Yes [id number] 4U inject 4 U nivers aspart 1-22 Units ity of RAPID 100 00:00: under the [place] unit/mL 00 skin 3 Medical injection (three) Branch times daily before meals. insulin 2020-0 Yes [id number] 4U inject 4 U nivers aspart 1-22 Units ity of RAPID 100 00:00: under the [place] unit/mL 00 skin 3 Medical injection (three) Branch times daily before meals. insulin 2020-0 Yes [id number] 4U inject 4 U nivers aspart 1-22 Units ity of RAPID 100 00:00: under the [place] unit/mL 00 skin 3 Medical injection (three) Branch times daily before meals. insulin 2020-0 Yes [id number] 4U inject 4 U nivers aspart 1-22 Units ity of RAPID 100 00:00: under the [place] unit/mL 00 skin 3 Medical injection (three) Branch times daily before meals. insulin 2020-0 Yes [id number] 4U inject 4 U nivers aspart 1-22 Units ity of RAPID 100 00:00: under the [place] unit/mL 00 skin 3 Medical injection (three) Branch times daily before meals. insulin 2020-0 Yes [id number] 4U inject 4 U nivers aspart 1-22 Units ity of RAPID 100 00:00: under the [place] unit/mL 00 skin 3 Medical injection (three) Branch times daily before meals. insulin 2020-0 Yes [id number] 4U inject 4 U nivers aspart 1-22 Units ity of RAPID 100 00:00: under the [place] unit/mL 00 skin 3 Medical injection (three) Branch times daily before meals. insulin 2020-0 Yes [id number] 4U inject 4 U nivers aspart 1-22 Units ity of RAPID 100 00:00: under the [place] unit/mL 00 skin 3 Medical injection (three) Branch times daily before meals. insulin 2020-0 Yes [id number] 4U inject 4 U nivers aspart 1-22 Units ity of RAPID 100 00:00: under the [place] unit/mL 00 skin 3 Medical injection (three) Branch times daily before meals. insulin 2020-0 Yes [id number] 4U inject 4 U nivers aspart 1-22 Units ity of RAPID 100 00:00: under the [place] unit/mL 00 skin 3 Medical injection (three) Branch times daily before meals. insulin 2020-0 Yes [id number] 4U inject 4 U nivers aspart 1-22 Units ity of RAPID 100 00:00: under the [place] unit/mL 00 skin 3 Medical injection (three) Branch times daily before meals. insulin 2020-0 Yes [id number] 4U inject 4 U nivers aspart 1-22 Units ity of RAPID 100 00:00: under the [place] unit/mL 00 skin 3 Medical injection (three) Branch times daily before meals. insulin 2020-0 Yes [id number] 4U inject 4 U nivers aspart 1-22 Units ity of RAPID 100 00:00: under the [place] unit/mL 00 skin 3 Medical injection (three) Branch times daily before meals. insulin 2020-0 Yes [id number] 4U inject 4 U nivers aspart 1-22 Units ity of RAPID 100 00:00: under the [place] unit/mL 00 skin 3 Medical injection (three) Branch times daily before meals. insulin 2020-0 Yes [id number] 4U inject 4 U nivers aspart 1-22 Units ity of RAPID 100 00:00: under the [place] unit/mL 00 skin 3 Medical injection (three) Branch times daily before meals. insulin 2020-0 Yes [id number] 4U inject 4 U nivers aspart 1-22 Units ity of RAPID 100 00:00: under the [place] unit/mL 00 skin 3 Medical injection (three) Branch times daily before meals. insulin 2020-0 Yes [id number] 4U inject 4 U nivers aspart 1-22 Units ity of RAPID 100 00:00: under the [place] unit/mL 00 skin 3 Medical injection (three) Branch times daily before meals. insulin 2020-0 Yes [id number] 4U inject 4 U nivers aspart 1-22 Units ity of RAPID 100 00:00: under the [place] unit/mL 00 skin 3 Medical injection (three) Branch times daily before meals. insulin 2020-0 Yes [id number] 4U inject 4 U nivers aspart 1-22 Units ity of RAPID 100 00:00: under the [place] unit/mL 00 skin 3 Medical injection (three) Branch times daily before meals. insulin 2019-0 2021- No [id number] 4U inject 4 [facility] aspart 1-22 11-01 Units ity of RAPID 100 00:00: 00:00 under the [place] unit/mL 00 :00 skin 3 Medical injection (three) Branch times daily before meals. cephALEXin 2020-0 2020- No [id number] 500mg Take 1 [facility] 500 mg -22 -22 capsule by ity of capsule 00:00: 05:59 mouth 4 00 :00 (four) Medical times Branch daily for 30 days. cephALEXin 2020-0 2020- No [id number] 500mg Take 1 [facility] 500 mg 1-22 -22 capsule by ity of capsule 00:00: 05:59 mouth 4 00 :00 (four) Medical times Branch daily for 30 days. cephALEXin 2020-0 2020- No [id number] 500mg Take 1 [facility] 500 mg 1-22 -22 capsule by ity of capsule 00:00: 05:59 mouth 4 00 :00 (four) Medical times Branch daily for 30 days. cephALEXin 2019-0 2020- No [id number] 500mg Take 1 [facility] 500 mg 03-06 capsule by ity of capsule 00:00: 05:59 mouth 4 [place] 00 :00 ([facility]) Medical times [place] daily for 30 days. cephALEXin 2019-0 2020- No [id number] 500mg Take 1 [facility] 500 mg 03-06 capsule by ity of capsule 00:00: 05:59 mouth 4 [place] 00 :00 ([facility]) Medical times [place] daily for 30 days. cephALEXin 2019-0 2020- No [id number] 500mg Take 1 [facility] 500 mg 03-06 capsule by ity of capsule 00:00: 05:59 mouth 4 [place] 00 :00 ([facility]) Medical times [place] daily for 30 days. cephALEXin 2019-0 2020- No [id number] 500mg Take 1 [facility] 500 mg 03-06 capsule by ity of capsule 00:00: 00:00 mouth 4 [place] 00 :00 ([facility]) Medical times [place] daily for 30 days. vancomycin Yes 2000mg 2,000 mg, Univers (VANCOCIN) 03-04 IV ity of 2,000 mg in 23:15: Piggyback, [place] NaCl 0.9% 00 Q12H ABX, Medic al (NS) 500 mL First dose Br anch piggyback on 03/04/19 at 1715, Until Discontinu ed, 500 mL
Reas on for Anti-Infec tive: Empiric Therapy for Suspected Infection< br>Empiric Therapy Site: Skin / Soft tissue
Duration of therapy: 7 days ondansetron Yes 4mg 4 mg, Slow Univers (ZOFRAN 1-20 IV Push, ity of (PF)) 14:21: Q6HPRN, [place] injection 4 37 Starting Medi janis mg Mon Branch 03/04/19 at 0821, Until Discontinu ed, Routine, Nausea and Vomiting (N/V) vancomycin 2019- No 2000mg 2,000 mg, Univers (VANCOCIN) 03-03 IV ity of 2,000 mg in 23:15: 22:06 Piggyback, [place] NaCl 0.9% 00 :44 Q12H ABX, Medic al (NS) 250 mL First dose Br anch piggyback on 03/03/19 at 1715, Until Discontinu ed, 250 mL
Reas on for Anti-Infec tive: Empiric Therapy for Suspected Infection< br>Empiric Therapy Site: Skin / Soft tissue
Duration of therapy: 7 days lisinopril No 10mg 10 mg, Univ ers (PRINIVIL,Z 03-03 Oral, ity of ESTRIL) 15:00: 12:33 DAILY, [place] tablet 10 00 :30 First dose Medi janis mg on [place] Branch 03/03/19 at 0900, Until Discontinu ed, Routine insulin 2019- No 8U 8 Units, [facility] rs glargine 03-03 Subcutaneo ity of (LANTUS 15:00: 12:07 us, DAILY, [place] as U-100) 00 :43 First dose Medical injection 8 on [facility] Units 03/03/19 at 0900, Until Discontinu ed, Routine insulin No 2U 2 Units, [facility] rs aspart 03-03 Subcutaneo ity of RAPID 13:30: 12:07 , [place], [place] (NOVOLOG 00 :43 First dose Medic al U-100 on [facility] INSULIN 03/03/19 at ASPART) 0730, injection 2 Until Units Discontinu ed, Routine vancomycin 2019- No 1000mg 1,000 mg, Univers 1 g in NS 03-02 IV ity of 200 mL RTU 23:15: 13:01 [place], [place] IV 00 :53 Q12H ABX, Medical Piggyback First dose Bran ch 1,000 mg on [facility] 03/02/19 at 1715, Until Discontinu ed
Reas on for Anti-Infec tive: Empiric Therapy for Suspected Infection< br>Empiric Therapy Site: Skin / Soft tissue
Duration of therapy: 7 days tamsulosin Yes .4mg 0.4 mg, Univ ers (FLOMAX) 03-02 Oral, ity of capsule 0.4 21:00: DAILY, [place] mg 00 First dose Medical on Sat Branch 03/02/19 at 1500, Until Discontinu ed, Routine cefTRIAXone 2019-0 Yes 2000mg 2,000 mg, Univers (ROCEPHIN) 18 IV ity of 2,000 mg in 17:45: Piggyback, [place] NaCl 0.9% 00 Q24H ABX, Medic al (NS) 100 mL First dose Br anch MINI-BAG on 03/02/19 at 1145, Until Discontinu ed, 100 mL
Reas on for Anti-Infec tive: Empiric Therapy for Suspected Infection< br>Empiric Therapy Site: Skin / Soft tissue
Duration of therapy: 7 days omeprazole 2020-0 Yes 40mg 40 mg, Unive rs (PRILOSEC) 18 Oral, ity of capsule 40 15:00: DAILY, [place] mg 00 First dose Medical on Sat Branch 03/02/19 at 0900, Until Discontinu ed, Routine citalopram 2020-0 Yes 40mg 40 mg, Unive rs (CELEXA) 18 Oral, ity of tablet 40 15:00: DAILY, [place] mg 00 First dose Medical on Sat Branch 03/02/19 at 0900, Until Discontinu ed, Routine aspirin 2020-0 Yes 325mg 325 mg, Univer s tablet 325 03-02 Oral, ity of mg 15:00: DAILY, [place] 00 First dose Medical on Sat Branch 03/02/19 at 0900, Until Discontinu ed, Routine lisinopril 2020-0 2020- No 5mg 5 mg, Unive rs (PRINIVIL,Z 03-02 Oral, ity of ESTRIL) 15:00: 12:59 DAILY, [place] tablet 5 mg 00 :20 First dose Me dical on Sat Branch 03/02/19 at 0900, Until Discontinu ed, Routine iohexol 2020-0 2020- No 120mL 120 mL, Unive rs (OMNIPAQUE 03-02 Intravenou it y of 350 04:45: 04:15 s, ONCE, 1 [place] BULK-150 00 :00 dose, Fri Medica l mL) 03/01/19 at Branch injection 2245, 120 mL Routine Sliding 2020-0 Yes Subcutaneo Univ ers Scale -18 us, TID ity of Insulin - 03:00: MEALS+HS, [place] as Aspart 00 First dose Medical (NOVOLOG) + on Mon Branch Fsbg 03/01/19 at Testing 2100, Until Discontinu ed, Routine heparin 2020-0 Yes 5000U 5,000 Univers (porcine) 1-18 Units, ity of injection 02:00: [place]cut[place]o [place] 5,000 Units 00 us, Q12H, Med ical First dose Branch on Mon03/01/19 at 2000, Until Discontinu ed, Routine lactated 2019- No 1000mL at 125 [facility] [place] [facility] ers ringers IV 03-02 01-18 mL/hr, ity of infusion 01:15: 21:02 1,000 mL, [place] as 1,000 mL 00 :24 IV Medical Infusion, Branch CONTINUOUS , Starting Mon03/01/19 at 1915, Until 03/02/19 at 1502, STAT vancomycin 2019-2019- No 15mg/kg 1,500 mg Univers (VANCOCIN) 03-01 (rounded ity of 1,500 mg in 23:15: 16:38 from [place] NaCl 0.9% 00 :03 1,837.5 mg Medi janis (NS) 250 mL = 15 mg/kg Br anch piggyback ?122.5 kg), IV Piggyback, Q12H ABX, First dose on Mon03/01/19 at 1715, Until Discontinu ed, 250 mL
Reas on for Anti-Infec tive: Empiric Therapy for Suspected Infection< br>Empiric Therapy Site: Skin / Soft tissue
Duration of therapy: 7 days omeprazole 2019-0 Yes 40mg Take 40 mg U nivers (PRILOSEC) 17 by mouth ity o f 20 mg 23:12: daily. [address] aspirin 325 2019-0 Yes 325mg Take 325 U nivers mg tablet 1-17 mg by ity of 23:12: mouth [place] [address] daily. Medical Branch citalopram 2019-0 Yes 40mg Take 40 mg U nivers (CELEXA) 40 17 by mouth ity of mg tablet 23:12: daily. [address] Branch insulin NPH 2019-0 Yes inject [facility] [place] [facility] ers 100 unit/mL 03-01 under the ity of injection 23:12: skin 3 [place] [address] (three) Medical times Branch daily. Sliding scale TID clopidogrel 2019-0 2019- No 75mg Take 75 mg Univers (PLAVIX) 75 03-01 by mouth ity of mg tablet 23:12: 00:00 daily. [place] 56 :00 Medical Branch LISINOPRIL 2020-0 2020- No Take by Uni vers ORAL 03-01 mouth as ity of 23:12: 00:00 needed. [place] 56 :00 Medical Branch traMADol 2019-0 2020- No 50mg 50 mg, Univer s (ULTRAM) 03-01 Oral, ity of tablet 50 23:10: 23:09 Q8HPRN, [place] mg 49 :49 Starting Medical Fri Branch 03/01/19 at 1710, Until 03/03/19 at 1709, Routine, Pain (scale 7-10) acetaminoph 2020-0 Yes 650mg 650 mg, Un tabitha en 03-01 Oral, ity of (TYLENOL) 23:10: Q6HPRN, [place] tablet 650 17 Starting Medic al mg Fri Branch 03/01/19 at 1710, Until Discontinu ed, Routine, Pain (scale 1-3), Temp > 38.5 C omeprazole 2019-0 Yes 40mg Take 40 mg U nivers (PRILOSEC) 1-15 by mouth ity o f 20 mg 17:25: daily. [address] Branch aspirin 325 2019-0 Yes 325mg Take 325 U nivers mg tablet 1-15 mg by ity of 17:25: mouth [place] [address] daily. Medical Branch citalopram 2019-0 Yes 40mg Take 40 mg U nivers (CELEXA) 40 1-15 by mouth ity of mg tablet 17:25: daily. [address] Branch insulin NPH 2019-0 Yes inject Univ ers 100 unit/mL 1-15 under the ity of injection 17:25: skin 3 [place] [address] (three) Medical times Branch daily. Sliding scale TID LISINOPRIL 2019-0 Yes Take by Univ ers ORAL 1-15 mouth as ity of 17:25: needed. [address] Branch omeprazole 2020-0 Yes 40mg Take 40 mg U nivers (PRILOSEC) 1-15 by mouth ity o f 20 mg 17:25: daily. [address] Branch aspirin 325 2020-0 Yes 325mg Take 325 U nivers mg tablet 1-15 mg by ity of 17:25: mouth [place] [address] daily. Medical Branch citalopram 2020-0 Yes 40mg Take 40 mg U nivers (CELEXA) 40 1-15 by mouth ity of mg tablet 17:25: daily. [place] [address] Medical Branch insulin NPH 2020-0 Yes inject Univ ers 100 unit/mL 1-15 under the ity of injection 17:25: skin 3 [place] [address] ([facility] times [place] daily. Sliding scale TID LISINOPRIL 2020-0 Yes Take by Univ ers ORAL 1-15 mouth as ity of 17:25: needed. [place] [address] Medical Branch omeprazole 2020-0 Yes 40mg Take 40 mg U nivers (PRILOSEC) 1-15 by mouth ity o f 20 mg 17:25: daily. [place] capsule Medical Branch aspirin 325 2020-0 Yes 325mg Take 325 U nivers mg tablet 1-15 mg by ity of 17:25: mouth [place] [address] daily. Medical Branch citalopram 2020-0 Yes 40mg Take 40 mg U nivers (CELEXA) 40 1-15 by mouth ity of mg tablet 17:25: daily. [place] [address] Medical Branch insulin NPH 2020-0 Yes inject Univ ers 100 unit/mL 1-15 under the ity of injection 17:25: skin 3 [place] [address] ([facility] times [place] daily. Sliding scale TID LISINOPRIL 2020-0 Yes Take by Univ ers ORAL 1-15 mouth as ity of 17:25: needed. [place] [address] Medical Branch omeprazole 2020-0 Yes 40mg Take 40 mg U nivers (PRILOSEC) 1-15 by mouth ity o f 20 mg 17:25: daily. [place] capsule Medical Branch aspirin 325 2020-0 Yes 325mg Take 325 U nivers mg tablet 1-15 mg by ity of 17:25: mouth [place] [address] daily. Medical Branch citalopram 2020-0 Yes 40mg Take 40 mg U nivers (CELEXA) 40 1-15 by mouth ity of mg tablet 17:25: daily. [place] [address] Medical Branch insulin NPH 2020-0 Yes inject Univ ers 100 unit/mL 1-15 under the ity of injection 17:25: skin 3 [place] [address] ([facility]) [facility] times [place] daily. Sliding scale TID LISINOPRIL 2020-0 Yes Take by Univ ers ORAL 1-15 mouth as ity of 17:25: needed. [place] [address] Medical Branch omeprazole 2020-0 Yes 40mg Take 40 mg U nivers (PRILOSEC) 1-15 by mouth ity o f 20 mg 17:25: daily. [place] capsule Medical Branch aspirin 325 2020-0 Yes 325mg Take 325 U nivers mg tablet 1-15 mg by ity of 17:25: mouth [place] [address] daily. Medical Branch citalopram 2020-0 Yes 40mg Take 40 mg U nivers (CELEXA) 40 1-15 by mouth ity of mg tablet 17:25: daily. [place] Medical Branch insulin NPH 2020-0 Yes inject Univ ers 100 unit/mL 1-15 under the ity of injection 17:25: skin 3 [place] [address] (three) Medical times [place] daily. Sliding scale TID LISINOPRIL 2020-0 Yes Take by Univ ers ORAL 1-15 mouth as ity of 17:25: needed. [place] [address] Medical Branch omeprazole 2020-0 Yes 40mg Take 40 mg U nivers (PRILOSEC) 1-15 by mouth ity o f 20 mg 17:25: daily. [place] capsule Medical Branch aspirin 325 2020-0 Yes 325mg Take 325 U nivers mg tablet 1-15 mg by ity of 17:25: mouth [place] [address] daily. Medical Branch citalopram 2020-0 Yes 40mg Take 40 mg U nivers (CELEXA) 40 1-15 by mouth ity of mg tablet 17:25: daily. [place] [address] Medical Branch insulin NPH 2020-0 Yes inject Univ ers 100 unit/mL 1-15 under the ity of injection 17:25: skin 3 [place] [address] (three) Medical times [place] daily. Sliding scale TID LISINOPRIL 2020-0 Yes Take by Univ ers ORAL 1-15 mouth as ity of 17:25: needed. [place] Medical Branch lisinopril 2020-0 Yes Prn [facility] 5 mg tablet 1-15 sbp>150 ity o f 00:00: [place] Medical Branch lisinopril 2020-0 Yes Prn [facility] 5 mg tablet 1-15 sbp>150 ity o f 00:00: Medical Branch lisinopril 2020-0 Yes Prn [facility] 5 mg tablet 1-15 sbp>150 ity o f 00:00: [facility] lisinopril 2020-0 Yes [facility] 5 mg tablet 1-15 sbp>150 ity o f 00:00: [place] [facility] lisinopril 2020-0 Yes [facility] 5 mg tablet 1-15 sbp>150 ity o f 00:00: [place] 00 [facility] lisinopril 2020-0 Yes [facility] 5 mg tablet 1-15 sbp>150 ity o f 00:00: [place] [facility] lisinopril 2020-0 Yes [facility] 5 mg tablet 1-15 sbp>150 ity o f 00:00: [place] [facility] lisinopril 2020-0 Yes [facility] 5 mg tablet 1-15 sbp>150 ity o f 00:00: [place] [facility] lisinopril 2020-0 Yes [facility] 5 mg tablet 1-15 sbp>150 ity o f 00:00: [place] [facility] lisinopril 2020-0 Yes [facility]n [facility] 5 mg tablet 1-15 sbp>150 ity o f 00:00: [place] [facility] lisinopril 2020-0 Yes [facility]n [facility] 5 mg tablet 1-15 sbp>150 ity o f 00:00: [place] [facility] lisinopril 2020-0 Yes [facility]n [facility] 5 mg tablet 1-15 sbp>150 ity o f 00:00: [place] [facility] lisinopril 2020-0 Yes [facility]n [facility] 5 mg tablet 1-15 sbp>150 ity o f 00:00: [place] [facility] lisinopril 2020-0 Yes [facility]n [facility] 5 mg tablet 1-15 sbp>150 ity o f 00:00: [place] [facility] doxycycline 2020-0 Yes [id number] 100mg Take 1 [facility] 100 mg 1-15 capsule by ity of capsule 00:00: [facility] every 12 Medical (twelve) Branch hours. lisinopril 2020-0 Yes [id number] 5mg Take 1 [facility] 5 mg tablet 1-15 tablet by ity of 00:00: mouth [place] 00 daily. [facility] Branch doxycycline 2020-0 Yes [id number] 100mg Take 1 [facility] 100 mg 1-15 capsule by ity of capsule 00:00: [facility] every 12 Medical (twelve) Branch hours. lisinopril 2020-0 Yes [id number] 5mg Take 1 [facility] 5 mg tablet 1-15 tablet by ity of 00:00: mouth [place] 00 daily. [facility] doxycycline 2020-0 Yes [id number] 100mg Take 1 [facility] 100 mg 1-15 capsule by [facility]y of capsule 00:00: mouth [place] every 12 Medical (twelve) Branch hours. lisinopril 2020-0 Yes [id number] 5mg Take 1 [facility] 5 mg tablet 1-15 tablet by ity of 00:00: mouth [place] 00 daily. [facility] doxycycline 2020-0 Yes [id number] 100mg Take 1 [facility] 100 mg 1-15 capsule by ity of capsule 00:00: mouth [place] 00 every 12 Medical (twelve) Branch hours. lisinopril 2020-0 Yes [id number] 5mg Take 1 [facility] 5 mg tablet 1-15 tablet by ity of 00:00: mouth [place] 00 daily. [facility] doxycycline 2020-0 Yes [id number] 100mg Take 1 [facility] 100 mg 1-15 capsule by ity of capsule 00:00: mouth [place] 00 every 12 Medical (twelve) Branch hours. lisinopril 2020-0 Yes [id number] 5mg Take 1 [facility] 5 mg tablet 1-15 tablet by ity of 00:00: mouth [place] 00 daily. [facility] doxycycline 2020-0 Yes [id number] 100mg Take 1 [facility] 100 mg 1-15 capsule by [facility] of capsule 00:00: mouth [place] 00 every 12 Medical (twelve) Branch hours. lisinopril 2020-0 Yes [id number] 5mg Take 1 [facility] 5 mg tablet 1-15 tablet by ity of 00:00: mouth [place] 00 daily. [facility] lisinopril 2020-0 Yes [facility]n [facility] 5 mg tablet 1-15 sbp>150 ity o f 00:00: [place] 00 [facility] lisinopril 2020-0 Yes [facility]n [facility] 5 mg tablet 1-15 sbp>150 ity o f 00:00: [place] 00 [facility] lisinopril 2020-0 Yes [facility] 5 mg tablet 1-15 sbp>150 ity o f 00:00: [place] 00 [facility] lisinopril 2020-0 Yes [facility] 5 mg tablet 1-15 sbp>150 ity o f 00:00: [place] 00 [facility] lisinopril 2020-0 Yes [facility]n [facility] 5 mg tablet 1-15 sbp>150 ity o f 00:00: [place] 00 [facility] lisinopril 2020-0 Yes [facility] 5 mg tablet 1-15 sbp>150 ity o f 00:00: [place] 00 [facility] lisinopril 2020-0 Yes [facility] 5 mg tablet 1-15 sbp>150 ity o f 00:00: [place] [facility] lisinopril 2020-0 Yes [facility] 5 mg tablet 1-15 sbp>150 ity o f 00:00: [place] [facility] lisinopril 2020-0 Yes [facility] 5 mg tablet 1-15 sbp>150 ity o f 00:00: [place] [facility] lisinopril 2020-0 Yes [facility] 5 mg tablet 1-15 sbp>150 ity o f 00:00: [place] [facility] lisinopril 2020-0 Yes [facility] 5 mg tablet 1-15 sbp>150 ity o f 00:00: [place] [facility] lisinopril 2020-0 Yes [facility] 5 mg tablet 1-15 sbp>150 ity o f 00:00: [place] [facility] lisinopril 2020-0 Yes [facility] 5 mg tablet 1-15 sbp>150 ity o f 00:00: [place] [facility] lisinopril 2020-0 Yes [facility] 5 mg tablet 1-15 sbp>150 ity o f 00:00: [place] [facility] lisinopril 2020-0 Yes [facility] 5 mg tablet 1-15 sbp>150 ity o f 00:00: [place] [facility] lisinopril 2020-0 Yes [facility] 5 mg tablet 1-15 sbp>150 ity o f 00:00: [place] [facility] lisinopril 2020-0 Yes [facility] 5 mg tablet 1-15 sbp>150 ity o f 00:00: [place] [facility] lisinopril 2020-0 Yes [facility]n [facility] 5 mg tablet 1-15 sbp>150 ity o f 00:00: [place] [facility] lisinopril 2020-0 Yes [facility] 5 mg tablet 1-15 sbp>150 ity o f 00:00: [place] [facility] lisinopril 2020-0 Yes [facility]n [facility] 5 mg tablet 1-15 sbp>150 ity o f 00:00: [place] [facility] lisinopril 2020-0 Yes [facility] 5 mg tablet 1-15 sbp>150 ity o f 00:00: [place] [facility] lisinopril 2020-0 Yes [facility]n [facility] 5 mg tablet 1-15 sbp>150 ity o f 00:00: [place] [facility] lisinopril 2020-0 Yes [facility] 5 mg tablet 1-15 sbp>150 ity o f 00:00: [place] 00 [facility] lisinopril 2020-0 Yes [facility]n [facility] 5 mg tablet 1-15 sbp>150 ity o f 00:00: [place] 00 [facility] lisinopril 2020-0 Yes [facility]n [facility] 5 mg tablet 1-15 sbp>150 ity o f 00:00: [place] 00 [facility] lisinopril 2020-0 Yes [facility] 5 mg tablet 1-15 sbp>150 ity o f 00:00: [place] 00 [facility] lisinopril 2020-0 Yes [facility]n [facility] 5 mg tablet 1-15 sbp>150 ity o f 00:00: [place] 00 [facility] lisinopril 2020-0 Yes [facility]n [facility] 5 mg tablet 1-15 sbp>150 ity o f 00:00: [place] 00 [facility] lisinopril 2020-0 2020- No Prn [facility] 5 mg tablet 1-15 07-31 sbp>150 ity of 00:00: 00:00 [place] 00 :00 [facility] Branch doxycycline 2020-0 2020- No [id number] 100mg Take 1 [facility] 100 mg -15 03-06 capsule by ity of capsule 00:00: 00:00 [facility] 00 :00 every 12 Medical (twelve) Branch hours. lisinopril 2020-0 2020- No [id number] 5mg Take 1 [facility] 5 mg tablet -15 03-06 tablet by it y of 00:00: 00:00 [facility] 00 :00 daily. Medical Branch proMETHazin 2018-02 Yes TAKE 1 [facility] ers e 25 mg 2-20 TABLET BY ity of tablet 00:00: [facility] 00 EVERY 6 Medical HOURS Branch NEEDED FOR NAUSEA AND VOMITING proMETHazin 2018-02 Yes TAKE 1 [facility] ers e 25 mg 2-20 TABLET BY ity of tablet 00:00: [facility] 00 EVERY 6 Medical HOURS Branch NEEDED FOR NAUSEA AND VOMITING proMETHazin 2018-02 Yes TAKE 1 [facility] ers e 25 mg 2-20 TABLET BY ity of tablet 00:00: [facility] 00 EVERY 6 Medical HOURS Branch NEEDED FOR NAUSEA AND VOMITING proMETHazin 2018-02 Yes TAKE 1 [facility] ers e 25 mg 2-20 TABLET BY ity of tablet 00:00: [facility] 00 EVERY 6 Medical HOURS Branch NEEDED FOR NAUSEA AND VOMITING proMETHazin 2018-02 Yes TAKE 1 [facility] ers e 25 mg 2-20 TABLET BY ity of tablet 00:00: MOUTH [place] 00 EVERY 6 Medical HOURS Branch NEEDED FOR NAUSEA AND VOMITING proMETHazin 2018-02 Yes TAKE 1 [facility] ers e 25 mg 2-20 TABLET BY ity of tablet 00:00: MOUTH [place] 00 EVERY 6 Medical HOURS Branch NEEDED FOR NAUSEA AND VOMITING proMETHazin 2018-02 Yes TAKE 1 [facility] ers e 25 mg 2-20 TABLET BY ity of tablet 00:00: MOUTH [place] 00 EVERY 6 Medical HOURS Branch NEEDED FOR NAUSEA AND VOMITING proMETHazin 2018-02 Yes TAKE 1 [facility] ers e 25 mg 2-20 TABLET BY ity of tablet 00:00: MOUTH [place] 00 EVERY 6 Medical HOURS Branch NEEDED FOR NAUSEA AND VOMITING proMETHazin 2018-02 Yes TAKE 1 [facility] ers [facility] 25 mg 2-20 TABLET BY ity of tablet 00:00: MOUTH [place] 00 EVERY 6 Medical HOURS Branch NEEDED FOR NAUSEA AND VOMITING proMETHazin 2018-02 Yes TAKE 1 [facility] 25 mg 2-20 TABLET BY ity of tablet 00:00: MOUTH [place] 00 EVERY 6 Medical HOURS Branch NEEDED FOR NAUSEA AND VOMITING proMETHazin 2018-02 Yes TAKE 1 [facility] 25 mg 2-20 TABLET BY ity of tablet 00:00: MOUTH [place] 00 EVERY 6 Medical HOURS Branch NEEDED FOR NAUSEA AND VOMITING proMETHazin 2018-02 Yes TAKE 1 [facility] 25 mg 2-20 TABLET BY ity of tablet 00:00: MOUTH [place] 00 EVERY 6 Medical HOURS Branch NEEDED FOR NAUSEA AND VOMITING proMETHazin 2018-02 Yes TAKE 1 [facility] 25 mg 2-20 TABLET BY ity of tablet 00:00: MOUTH [place] 00 EVERY 6 Medical HOURS Branch NEEDED FOR NAUSEA AND VOMITING proMETHazin 2018-02 Yes TAKE 1 [facility] 25 mg 2-20 TABLET BY ity of tablet 00:00: MOUTH [place] 00 EVERY 6 Medical HOURS Branch NEEDED FOR NAUSEA AND VOMITING proMETHazin 2018-02 Yes TAKE 1 [facility] 25 mg 2-20 TABLET BY ity of tablet 00:00: MOUTH [place] 00 EVERY 6 Medical HOURS Branch NEEDED FOR NAUSEA AND VOMITING proMETHazin 2018-02 Yes TAKE 1 [facility] 25 mg 2-20 TABLET BY ity of tablet 00:00: MOUTH [place] 00 EVERY 6 Medical HOURS Branch NEEDED FOR NAUSEA AND VOMITING proMETHazin 2018-02 Yes TAKE 1 [facility] 25 mg 2-20 TABLET BY ity of tablet 00:00: MOUTH [place] 00 EVERY 6 Medical HOURS Branch NEEDED FOR NAUSEA AND VOMITING proMETHazin 2018-02 Yes TAKE 1 [facility] 25 mg 2-20 TABLET BY ity of tablet 00:00: MOUTH [place] 00 EVERY 6 Medical HOURS Branch NEEDED FOR NAUSEA AND VOMITING proMETHazin 2018-02 Yes TAKE 1 [facility] 25 mg 2-20 TABLET BY ity of tablet 00:00: MOUTH [place] 00 EVERY 6 Medical HOURS Branch NEEDED FOR NAUSEA AND VOMITING proMETHazin 2018-02 Yes TAKE 1 [facility] 25 mg 2-20 TABLET BY ity of tablet 00:00: MOUTH [place] 00 EVERY 6 Medical HOURS Branch NEEDED FOR NAUSEA AND VOMITING proMETHazin 2018-02 Yes TAKE 1 [facility] 25 mg 2-20 TABLET BY ity of tablet 00:00: MOUTH [place] 00 EVERY 6 Medical HOURS Branch NEEDED FOR NAUSEA AND VOMITING proMETHazin 2018-02 Yes TAKE 1 [facility] ers [facility] 25 mg 2-20 TABLET BY ity of tablet 00:00: MOUTH [place] 00 EVERY 6 Medical HOURS Branch NEEDED FOR NAUSEA AND VOMITING proMETHazin 2018-02 Yes TAKE 1 [facility] ers [facility] 25 mg 2-20 TABLET BY ity of tablet 00:00: MOUTH [place] 00 EVERY 6 Medical HOURS Branch NEEDED FOR NAUSEA AND VOMITING proMETHazin 2018-02 Yes TAKE 1 [facility] ers [facility] 25 mg 2-20 TABLET BY ity of tablet 00:00: MOUTH [place] 00 EVERY 6 Medical HOURS Branch NEEDED FOR NAUSEA AND VOMITING proMETHazin 2018-02 Yes TAKE 1 [facility] 25 mg 2-20 TABLET BY ity of tablet 00:00: MOUTH [place] 00 EVERY 6 Medical HOURS Branch NEEDED FOR NAUSEA AND VOMITING proMETHazin 2018-02 Yes TAKE 1 [facility] 25 mg 2-20 TABLET BY ity of tablet 00:00: MOUTH [place] 00 EVERY 6 Medical HOURS Branch NEEDED FOR NAUSEA AND VOMITING proMETHazin 2018-02 Yes TAKE 1 [facility] 25 mg 2-20 TABLET BY ity of tablet 00:00: MOUTH [place] 00 EVERY 6 Medical HOURS Branch NEEDED FOR NAUSEA AND VOMITING proMETHazin 2018-02 Yes TAKE 1 [facility] 25 mg 2-20 TABLET BY ity of tablet 00:00: MOUTH [place] 00 EVERY 6 Medical HOURS Branch NEEDED FOR NAUSEA AND VOMITING proMETHazin 2018-02 Yes TAKE 1 [facility] 25 mg 2-20 TABLET BY ity of tablet 00:00: MOUTH [place] 00 EVERY 6 Medical HOURS Branch NEEDED FOR NAUSEA AND VOMITING proMETHazin 2018-02 Yes TAKE 1 [facility] 25 mg 2-20 TABLET BY ity of tablet 00:00: MOUTH [place] 00 EVERY 6 Medical HOURS Branch NEEDED FOR NAUSEA AND VOMITING proMETHazin 2018-02 Yes TAKE 1 [facility] 25 mg 2-20 TABLET BY ity of tablet 00:00: MOUTH [place] 00 EVERY 6 Medical HOURS Branch NEEDED FOR NAUSEA AND VOMITING proMETHazin 2018-02 Yes TAKE 1 [facility] 25 mg 2-20 TABLET BY ity of tablet 00:00: MOUTH [place] 00 EVERY 6 Medical HOURS Branch NEEDED FOR NAUSEA AND VOMITING proMETHazin 2018-02 Yes TAKE 1 [facility] 25 mg 2-20 TABLET BY ity of tablet 00:00: MOUTH [place] 00 EVERY 6 Medical HOURS Branch NEEDED FOR NAUSEA AND VOMITING proMETHazin 2018-02 Yes TAKE 1 [facility] 25 mg 2-20 TABLET BY ity of tablet 00:00: MOUTH [place] 00 EVERY 6 Medical HOURS Branch NEEDED FOR NAUSEA AND VOMITING proMETHazin 2018-02 Yes TAKE 1 [facility] 25 mg 2-20 TABLET BY ity of tablet 00:00: MOUTH [place] 00 EVERY 6 Medical HOURS Branch NEEDED FOR NAUSEA AND VOMITING proMETHazin 2018-02 Yes TAKE 1 [facility] ers [facility] 25 mg 2-20 TABLET BY ity of tablet 00:00: MOUTH [place] 00 EVERY 6 Medical HOURS Branch NEEDED FOR NAUSEA AND VOMITING proMETHazin 2018-02 Yes TAKE 1 [facility] ers [facility] 25 mg 2-20 TABLET BY ity of tablet 00:00: MOUTH [place] 00 EVERY 6 Medical HOURS Branch NEEDED FOR NAUSEA AND VOMITING proMETHazin 2018-02 Yes TAKE 1 [facility] 25 mg 2-20 TABLET BY ity of tablet 00:00: MOUTH [place] 00 EVERY 6 Medical HOURS Branch NEEDED FOR NAUSEA AND VOMITING proMETHazin 2018-02 Yes TAKE 1 [facility] 25 mg 2-20 TABLET BY ity of tablet 00:00: MOUTH [place] 00 EVERY 6 Medical HOURS Branch NEEDED FOR NAUSEA AND VOMITING proMETHazin 2018-02 Yes TAKE 1 [facility] 25 mg 2-20 TABLET BY ity of tablet 00:00: MOUTH [place] 00 EVERY 6 Medical HOURS Branch NEEDED FOR NAUSEA AND VOMITING proMETHazin 2018-02 Yes TAKE 1 [facility] 25 mg 2-20 TABLET BY ity of tablet 00:00: MOUTH [place] 00 EVERY 6 Medical HOURS Branch NEEDED FOR NAUSEA AND VOMITING proMETHazin 2018-02 Yes TAKE 1 [facility] 25 mg 2-20 TABLET BY ity of tablet 00:00: MOUTH [place] 00 EVERY 6 Medical HOURS Branch NEEDED FOR NAUSEA AND VOMITING proMETHazin 2018-02 Yes TAKE 1 [facility] 25 mg 2-20 TABLET BY ity of tablet 00:00: MOUTH [place] 00 EVERY 6 Medical HOURS Branch NEEDED FOR NAUSEA AND VOMITING proMETHazin 2018-02 Yes TAKE 1 [facility] 25 mg 2-20 TABLET BY ity of tablet 00:00: MOUTH [place] 00 EVERY 6 Medical HOURS Branch NEEDED FOR NAUSEA AND VOMITING proMETHazin 2018-02 Yes TAKE 1 [facility] 25 mg 2-20 TABLET BY ity of tablet 00:00: MOUTH [place] 00 EVERY 6 Medical HOURS Branch NEEDED FOR NAUSEA AND VOMITING proMETHazin 2018-02 Yes TAKE 1 [facility] ers [facility] 25 mg 2-20 TABLET BY ity of tablet 00:00: MOUTH [place] 00 EVERY 6 Medical HOURS Branch NEEDED FOR NAUSEA AND VOMITING proMETHazin 2018-02 Yes TAKE 1 [facility] 25 mg 2-20 TABLET BY ity of tablet 00:00: MOUTH [place] 00 EVERY 6 Medical HOURS Branch NEEDED FOR NAUSEA AND VOMITING proMETHazin 2018-02 Yes TAKE 1 [facility] 25 mg 2-20 TABLET BY ity of tablet 00:00: MOUTH [place] 00 EVERY 6 Medical HOURS Branch NEEDED FOR NAUSEA AND VOMITING proMETHazin 2018-02 Yes TAKE 1 [facility] 25 mg 2-20 TABLET BY ity of tablet 00:00: MOUTH [place] 00 EVERY 6 Medical HOURS Branch NEEDED FOR NAUSEA AND VOMITING proMETHazin 2018-02 Yes TAKE 1 [facility] 25 mg 2-20 TABLET BY ity of tablet 00:00: MOUTH [place] 00 EVERY 6 Medical HOURS Branch NEEDED FOR NAUSEA AND VOMITING proMETHazin 2018-02 Yes TAKE 1 [facility] 25 mg 2-20 TABLET BY ity of tablet 00:00: MOUTH [place] 00 EVERY 6 Medical HOURS Branch NEEDED FOR NAUSEA AND VOMITING proMETHazin 2018-02 Yes TAKE 1 [facility] 25 mg 2-20 TABLET BY ity of tablet 00:00: MOUTH [place] 00 EVERY 6 Medical HOURS Branch NEEDED FOR NAUSEA AND VOMITING proMETHazin 2018-02 Yes TAKE 1 [facility] 25 mg 2-20 TABLET BY ity of tablet 00:00: MOUTH [place] 00 EVERY 6 Medical HOURS Branch NEEDED FOR NAUSEA AND VOMITING proMETHazin 2018-02 Yes TAKE 1 [facility] 25 mg 2-20 TABLET BY ity of tablet 00:00: MOUTH [place] 00 EVERY 6 Medical HOURS Branch NEEDED FOR NAUSEA AND VOMITING proMETHazin 2018-02 Yes TAKE 1 [facility] 25 mg 2-20 TABLET BY ity of tablet 00:00: MOUTH [place] 00 EVERY 6 Medical HOURS Branch NEEDED FOR NAUSEA AND VOMITING proMETHazin 2018-02 Yes TAKE 1 [facility] 25 mg 2-20 TABLET BY ity of tablet 00:00: MOUTH [place] 00 EVERY 6 Medical HOURS Branch NEEDED FOR NAUSEA AND VOMITING proMETHazin 2018-02 Yes TAKE 1 [facility] 25 mg 2-20 TABLET BY ity of tablet 00:00: MOUTH [place] 00 EVERY 6 Medical HOURS Branch NEEDED FOR NAUSEA AND VOMITING proMETHazin 2018-02 Yes TAKE 1 [facility] 25 mg 2-20 TABLET BY ity of tablet 00:00: MOUTH [place] 00 EVERY 6 Medical HOURS Branch NEEDED FOR NAUSEA AND VOMITING proMETHazin 2018-02 Yes TAKE 1 [facility] 25 mg 2-20 TABLET BY ity of tablet 00:00: MOUTH [place] 00 EVERY 6 Medical HOURS Branch NEEDED FOR NAUSEA AND VOMITING proMETHazin 2018-02 Yes TAKE 1 [facility] 25 mg 2-20 TABLET BY ity of tablet 00:00: MOUTH [place] 00 EVERY 6 Medical HOURS Branch NEEDED FOR NAUSEA AND VOMITING proMETHazin 2018-02 Yes TAKE 1 [facility] 25 mg 2-20 TABLET BY ity of tablet 00:00: MOUTH [place] 00 EVERY 6 Medical HOURS Branch NEEDED FOR NAUSEA AND VOMITING proMETHazin 2018-02 Yes TAKE 1 [facility] 25 mg 2-20 TABLET BY ity of tablet 00:00: MOUTH [place] 00 EVERY 6 Medical HOURS Branch NEEDED FOR NAUSEA AND VOMITING proMETHazin 2018-02 Yes TAKE 1 [facility] 25 mg 2-20 TABLET BY ity of tablet 00:00: MOUTH [place] 00 EVERY 6 Medical HOURS Branch NEEDED FOR NAUSEA AND VOMITING proMETHazin 2018-02 Yes TAKE 1 [facility] 25 mg 2-20 TABLET BY ity of tablet 00:00: MOUTH [place] 00 EVERY 6 Medical HOURS Branch NEEDED FOR NAUSEA AND VOMITING proMETHazin 2018-02 Yes TAKE 1 [facility] 25 mg 2-20 TABLET BY ity of tablet 00:00: MOUTH [place] 00 EVERY 6 Medical HOURS Branch NEEDED FOR NAUSEA AND VOMITING proMETHazin 2018-02 Yes TAKE 1 [facility] 25 mg 2-20 TABLET BY ity of tablet 00:00: MOUTH [place] 00 EVERY 6 Medical HOURS Branch NEEDED FOR NAUSEA AND VOMITING proMETHazin 2018-02 Yes TAKE 1 [facility] 25 mg 2-20 TABLET BY ity of tablet 00:00: MOUTH [place] 00 EVERY 6 Medical HOURS Branch NEEDED FOR NAUSEA AND VOMITING proMETHazin 2018-02 Yes TAKE 1 [facility] 25 mg 2-20 TABLET BY ity of tablet 00:00: MOUTH [place] 00 EVERY 6 Medical HOURS Branch NEEDED FOR NAUSEA AND VOMITING proMETHazin 2018-02 Yes TAKE 1 [facility] 25 mg 2-20 TABLET BY ity of tablet 00:00: MOUTH [place] 00 EVERY 6 Medical HOURS Branch NEEDED FOR NAUSEA AND VOMITING proMETHazin 2018-02 Yes TAKE 1 [facility] 25 mg 2-20 TABLET BY ity of tablet 00:00: MOUTH [place] 00 EVERY 6 Medical HOURS Branch NEEDED FOR NAUSEA AND VOMITING proMETHazin 2018-02 Yes TAKE 1 [facility] 25 mg 2-20 TABLET BY ity of tablet 00:00: MOUTH [place] 00 EVERY 6 Medical HOURS Branch NEEDED FOR NAUSEA AND VOMITING proMETHazin 2018-02 Yes TAKE 1 [facility] 25 mg 2-20 TABLET BY ity of tablet 00:00: MOUTH [place] 00 EVERY 6 Medical HOURS Branch NEEDED FOR NAUSEA AND VOMITING proMETHazin 2018-02 Yes TAKE 1 [facility] 25 mg 2-20 TABLET BY ity of tablet 00:00: MOUTH [place] 00 EVERY 6 Medical HOURS Branch NEEDED FOR NAUSEA AND VOMITING proMETHazin 2018-02 Yes TAKE 1 [facility] 25 mg 2-20 TABLET BY ity of tablet 00:00: MOUTH [place] 00 EVERY 6 Medical HOURS Branch NEEDED FOR NAUSEA AND VOMITING proMETHazin 2018-02 Yes TAKE 1 [facility] 25 mg 2-20 TABLET BY ity of tablet 00:00: MOUTH [place] 00 EVERY 6 Medical HOURS Branch NEEDED FOR NAUSEA AND VOMITING proMETHazin 2018-02 Yes TAKE 1 [facility] 25 mg 2-20 TABLET BY ity of tablet 00:00: MOUTH [place] 00 EVERY 6 Medical HOURS Branch NEEDED FOR NAUSEA AND VOMITING proMETHazin 2018-02 Yes TAKE 1 [facility] 25 mg 2-20 TABLET BY ity of tablet 00:00: MOUTH [place] 00 EVERY 6 Medical HOURS Branch NEEDED FOR NAUSEA AND VOMITING proMETHazin 2018-02- No TAKE 1 [facility] vers e 25 mg 2-20 12-14 TABLET BY ity of tablet 00:00: 00:00 MOUTH [place] 00 :00 EVERY 6 Medical HOURS Branch NEEDED FOR NAUSEA AND VOMITING atorvastati 2018-02 Yes TAKE 1 [facility] ers n 40 mg 2-03 TABLET BY ity of tablet 00:00: MOUTH [place] 00 EVERY DAY Medical AT BEDTIME Branch FOR 90 DAYS atorvastati 2018-02 Yes TAKE 1 [facility] 40 mg 2-03 TABLET BY ity of tablet 00:00: MOUTH [place] 00 EVERY DAY Medical AT BEDTIME Branch FOR 90 DAYS atorvastati 2018-02 Yes TAKE 1 [facility] 40 mg 2-03 TABLET BY ity of tablet 00:00: MOUTH [place] 00 EVERY DAY Medical AT BEDTIME Branch FOR 90 DAYS atorvastati 2018-02 Yes TAKE 1 [facility] 40 mg 2-03 TABLET BY ity of tablet 00:00: MOUTH [place] 00 [facility] atorvastati 2018-02 Yes TAKE 1 [facility] 40 mg 2-03 TABLET BY ity of tablet 00:00: MOUTH [place] 00 EVERY DAY [facility] FOR 90 DAYS atorvastati 2018-02 Yes TAKE 1 [facility] 40 mg 2-03 TABLET BY ity of tablet 00:00: MOUTH [place] 00 EVERY DAY [facility] FOR 90 DAYS atorvastati 2018-02 Yes TAKE 1 [facility] 40 mg 2-03 TABLET BY ity of tablet 00:00: MOUTH [place] 00 EVERY DAY [facility] FOR 90 DAYS atorvastati 2018-02 Yes TAKE 1 [facility] 40 mg 2-03 TABLET BY ity of tablet 00:00: MOUTH [place] 00 EVERY DAY [facility] FOR 90 DAYS atorvastati 2018-02 Yes TAKE 1 [facility] 40 mg 2-03 TABLET BY ity of tablet 00:00: MOUTH [place] 00 EVERY DAY Medical AT BEDTIME Branch FOR 90 DAYS atorvastati 2018-02 Yes TAKE 1 [facility] 40 mg 2-03 TABLET BY ity of tablet 00:00: MOUTH [place] 00 EVERY DAY Medical AT BEDTIME Branch FOR 90 DAYS atorvastati 2018-02 Yes TAKE 1 [facility] 40 mg 2-03 TABLET BY ity of tablet 00:00: MOUTH [place] 00 EVERY DAY Medical AT BEDTIME Branch FOR 90 DAYS atorvastati 2018-02 Yes TAKE 1 [facility] 40 mg 2-03 TABLET BY ity of tablet 00:00: MOUTH [place] 00 [facility] at[facility]ati 2018-02 Yes TAKE 1 [facility] 40 mg 2-03 TABLET BY ity of tablet 00:00: MOUTH [place] 00 EVERY DAY Medical AT [facility]ED[facility] [place] FOR 90 DAYS atorvastati 2018-02 Yes TAKE 1 [facility] 40 mg 2-03 TABLET BY ity of tablet 00:00: MOUTH [place] 00 EVERY DAY [facility] atorvastati 2018-02 Yes TAKE 1 [facility] 40 mg 2-03 TABLET BY ity of tablet 00:00: MOUTH [place] 00 EVERY DAY [facility] FOR 90 DAYS atorvastati 2018-02 Yes TAKE 1 [facility] 40 mg 2-03 TABLET BY ity of tablet 00:00: MOUTH [place] 00 EVERY DAY Medical AT [facility] FOR 90 DAYS atorvastati 2018-02 Yes TAKE 1 [facility] 40 mg 2-03 TABLET BY ity of tablet 00:00: MOUTH [place] 00 EVERY DAY Medical AT [facility] FOR 90 DAYS atorvastati 2018-02 Yes TAKE 1 [facility] 40 mg 2-03 TABLET BY ity of tablet 00:00: MOUTH [place] 00 EVERY DAY Medical AT [facility] FOR 90 DAYS atorvastati 2018-02 Yes TAKE 1 [facility] 40 mg 2-03 TABLET BY ity of tablet 00:00: MOUTH [place] 00 EVERY DAY Medical AT [facility] FOR 90 DAYS atorvastati 2018-02 Yes TAKE 1 [facility] 40 mg 2-03 TABLET BY ity of tablet 00:00: MOUTH [place] 00 EVERY DAY [facility] FOR 90 DAYS atorvastati 2018-02 Yes TAKE 1 [facility] 40 mg 2-03 TABLET BY ity of tablet 00:00: MOUTH [place] 00 EVERY DAY [facility] FOR 90 DAYS atorvastati 2018-02 Yes TAKE 1 [facility] 40 mg 2-03 TABLET BY ity of tablet 00:00: MOUTH [place] 00 EVERY DAY Medical AT BEDTIME [place] FOR 90 DAYS atorvastati 2018-02 Yes TAKE 1 [facility] 40 mg 2-03 TABLET BY ity of tablet 00:00: MOUTH [place] 00 EVERY DAY Medical AT BEDTIME [place] FOR 90 DAYS atorvastati 2018-02 Yes TAKE 1 [facility] 40 mg 2-03 TABLET BY ity of tablet 00:00: MOUTH [place] 00 EVERY DAY [facility]YS atorvastati 2018-02 Yes TAKE 1 [facility] 40 mg 2-03 TABLET BY ity of tablet 00:00: MOUTH [place] 00 EVERY DAY Medical AT BEDTIME [place] FOR 90 DAYS atorvastati 2018-02 Yes TAKE 1 [facility] 40 mg 2-03 TABLET BY ity of tablet 00:00: MOUTH [place] 00 EVERY DAY [facility] FOR 90 DAYS atorvastati 2018-02 Yes TAKE 1 [facility] 40 mg 2-03 TABLET BY ity of tablet 00:00: MOUTH [place] 00 EVERY DAY [facility] FOR 90 DAYS atorvastati 2018-02 Yes TAKE 1 [facility] 40 mg 2-03 TABLET BY ity of tablet 00:00: MOUTH [place] 00 EVERY DAY [facility] FOR 90 DAYS atorvastati 2018-02 Yes TAKE 1 [facility] 40 mg 2-03 TABLET BY ity of tablet 00:00: MOUTH 00 EVERY DAY Medical [facility] FOR 90 DAYS atorvastati 2018-02 Yes TAKE 1 [facility] 40 mg 2-03 TABLET BY ity of tablet 00:00: MOUTH [place] 00 EVERY DAY Medical AT [facility] FOR 90 DAYS atorvastati 2018-02 Yes TAKE 1 [facility] 40 mg 2-03 TABLET BY ity of tablet 00:00: MOUTH [place] 00 EVERY DAY Medical AT [facility] FOR 90 DAYS atorvastati 2018-02 Yes TAKE 1 [facility] 40 mg 2-03 TABLET BY ity of tablet 00:00: MOUTH [place] 00 EVERY DAY [facility] FOR 90 DAYS atorvastati 2018-02 Yes TAKE 1 [facility] 40 mg 2-03 TABLET BY ity of tablet 00:00: MOUTH [place] 00 EVERY DAY [facility] FOR 90 DAYS atorvastati 2018-02 Yes TAKE 1 [facility] 40 mg 2-03 TABLET BY ity of tablet 00:00: MOUTH [place] 00 EVERY DAY Medical AT BEDTIME [place] FOR 90 DAYS atorvastati 2018-02 Yes TAKE 1 [facility] 40 mg 2-03 TABLET BY ity of tablet 00:00: MOUTH [place] 00 EVERY DAY Medical AT BEDTIME [place] FOR 90 DAYS atorvastati 2018-02 Yes TAKE 1 Univ ers n 40 mg 2-03 TABLET BY ity of tablet 00:00: MOUTH [place] 00 EVERY DAY Medical AT BEDTIME [place] FOR 90 DAYS atorvastati 2018-02 Yes TAKE 1 [facility] ers n 40 mg 2-03 TABLET BY ity of tablet 00:00: MOUTH [place] 00 EVERY DAY [facility] FOR [facility] DAYS atorvastati 2018-02 Yes TAKE 1 [facility] ers n 40 mg 2-03 TABLET BY ity of tablet 00:00: MOUTH [place] 00 EVERY DAY Medical [facility] FOR 90 DAYS atorvastati 2018-02 Yes TAKE 1 [facility] ers n 40 mg 2-03 TABLET BY ity of tablet 00:00: MOUTH [place] 00 EVERY DAY Medical [facility] FOR 90 DAYS atorvastati 2018-02 Yes TAKE 1 [facility] ers n 40 mg 2-03 TABLET BY ity of tablet 00:00: MOUTH [place] 00 EVERY DAY Medical [facility] FOR 90 DAYS atorvastati 2018-02 Yes TAKE 1 [facility] ers n 40 mg 2-03 TABLET BY ity of tablet 00:00: MOUTH [place] 00 EVERY DAY Medical AT [facility] FOR 90 DAYS atorvastati 2018-02 Yes TAKE 1 [facility] ers n 40 mg 2-03 TABLET BY ity of tablet 00:00: MOUTH [place] 00 EVERY DAY Medical AT [facility] FOR 90 DAYS atorvastati 2018-02 Yes TAKE 1 [facility] ers n 40 mg 2-03 TABLET BY ity of tablet 00:00: MOUTH [place] 00 EVERY DAY Medical AT [facility] FOR 90 DAYS atorvastati 2018-02 Yes TAKE 1 [facility] ers n 40 mg 2-03 TABLET BY ity of tablet 00:00: MOUTH [place] 00 EVERY DAY Medical AT [facility] FOR 90 DAYS atorvastati 2018-02 Yes TAKE 1 [facility] ers n 40 mg 2-03 TABLET BY ity of tablet 00:00: MOUTH [place] 00 EVERY DAY Medical [facility] FOR 90 DAYS atorvastati 2018-02 Yes TAKE 1 [facility] ers n 40 mg 2-03 TABLET BY ity of tablet 00:00: MOUTH [place] 00 EVERY DAY Medical AT BEDTIME [place] FOR 90 DAYS atorvastati 2018-02 Yes 40mg Take 40 mg [facility] n 40 mg 2-03 by mouth ity of tablet 00:00: at [place] [address] bedtime. Medical Branch atorvastati 2018-02 Yes 40mg Take 40 mg [facility] n 40 mg 2-03 by mouth ity of tablet 00:00: at [place] [address] bedtime. Medical Branch atorvastati 2018-02 Yes 40mg Take 40 mg [facility] n 40 mg 2-03 by mouth ity of tablet 00:00: at [place] [address] bedtime. Medical Branch atorvasta 2018-02 Yes 40mg Take 40 mg [facility] n 40 mg 2-03 by mouth ity of tablet 00:00: at [place] [address] bedtime. Medical Branch atorvasta 2018-02 Yes 40mg Take 40 mg [facility] n 40 mg 2-03 by mouth ity of tablet 00:00: at [place] [address] bedtime. Medical Branch atorvasta 2018-02 Yes 40mg Take 40 mg [facility] n 40 mg 2-03 by mouth ity of tablet 00:00: at [place] [address] bedtime. Medical Branch atorvasta 2018-02 Yes TAKE 1 [facility] ers n 40 mg 2-03 TABLET BY ity of tablet 00:00: MOUTH [place] 00 EVERY DAY Medical AT BEDTIME [place] FOR 90 DAYS atorvastati 2018-02 Yes TAKE 1 [facility] ers n 40 mg 2-03 TABLET BY ity of tablet 00:00: MOUTH [place] EVERY DAY Medical AT BEDTIME Branch FOR 90 DAYS atorvastati 2018-02 Yes TAKE 1 [facility] ers n 40 mg 2-03 TABLET BY ity of tablet 00:00: MOUTH [place] 00 EVERY DAY Medical AT BEDTIME Branch FOR 90 DAYS atorvastati 2018-02 Yes TAKE 1 [facility] ers n 40 mg 2-03 TABLET BY ity of tablet 00:00: MOUTH [place] 00 EVERY DAY Medical AT BEDTIME Branch FOR 90 DAYS atorvastati 2018-02 Yes TAKE 1 [facility] ers n 40 mg 2-03 TABLET BY ity of tablet 00:00: MOUTH [place] EVERY DAY Medical AT BEDTIME Branch FOR 90 DAYS atorvastati 2018-02 Yes TAKE 1 [facility] ers n 40 mg 2-03 TABLET BY ity of tablet 00:00: MOUTH [place] 00 EVERY DAY Medical AT BEDTIME [place] FOR 90 DAYS atorvastati 2018-02 Yes TAKE 1 [facility] ers n 40 mg 2-03 TABLET BY ity of tablet 00:00: MOUTH [place] 00 EVERY DAY Medical AT BEDTIME [place] FOR 90 DAYS atorvastati 2018-02 Yes TAKE 1 [facility] n 40 mg 2-03 TABLET BY ity of tablet 00:00: MOUTH [place] 00 EVERY DAY Medical AT BEDTIME [place] FOR 90 DAYS atorvastati 2018-02 Yes TAKE 1 [facility] ers n 40 mg 2-03 TABLET BY ity of tablet 00:00: MOUTH [place] 00 EVERY DAY Medical [facility] FOR 90 DAYS atorvastati 2018-02 Yes TAKE 1 [facility] ers n 40 mg 2-03 TABLET BY ity of tablet 00:00: MOUTH [place] 00 EVERY DAY Medical [facility] FOR 90 DAYS atorvastati 2018-02 Yes TAKE 1 [facility] ers n 40 mg 2-03 TABLET BY ity of tablet 00:00: MOUTH [place] 00 EVERY DAY Medical [facility] FOR 90 DAYS atorvastati 2018-02 Yes TAKE 1 [facility] ers n 40 mg 2-03 TABLET BY ity of tablet 00:00: MOUTH [place] 00 EVERY DAY Medical [facility] FOR 90 DAYS atorvastati 2018-02 Yes TAKE 1 [facility] ers n 40 mg 2-03 TABLET BY ity of tablet 00:00: MOUTH [place] 00 EVERY DAY Medical [facility] FOR 90 DAYS atorvastati 2018-02 Yes TAKE 1 [facility] ers n 40 mg 2-03 TABLET BY ity of tablet 00:00: MOUTH [place] 00 EVERY DAY Medical AT [facility] FOR 90 DAYS atorvastati 2018-02 Yes TAKE 1 [facility] ers n 40 mg 2-03 TABLET BY ity of tablet 00:00: MOUTH [place] 00 EVERY DAY Medical AT [facility] FOR 90 DAYS atorvastati 2018-02 Yes TAKE 1 [facility] ers n 40 mg 2-03 TABLET BY ity of tablet 00:00: MOUTH [place] 00 EVERY DAY Medical AT [facility] FOR 90 DAYS atorvastati 2018-02 Yes TAKE 1 [facility] ers n 40 mg 2-03 TABLET BY ity of tablet 00:00: MOUTH [place] 00 EVERY DAY Medical [facility] FOR 90 DAYS atorvastati 2018-02 Yes TAKE 1 [facility] ers n 40 mg 2-03 TABLET BY ity of tablet 00:00: MOUTH [place] 00 EVERY DAY Medical [facility] FOR 90 DAYS atorvastati 2018-02 Yes TAKE 1 [facility] ers n 40 mg 2-03 TABLET BY ity of tablet 00:00: MOUTH [place] 00 EVERY DAY Medical AT BEDTIME [place] FOR 90 DAYS atorvastati 2018-02 Yes TAKE 1 [facility] n 40 mg 2-03 TABLET BY ity of tablet 00:00: MOUTH [place] 00 EVERY DAY Medical [facility] FOR 90 DAYS atorvastati 2018-02 Yes TAKE 1 [facility] ers n 40 mg 2-03 TABLET BY ity of tablet 00:00: MOUTH [place] 00 EVERY DAY Medical AT BEDTIME [place] FOR 90 DAYS atorvastati 2018-02 Yes TAKE 1 [facility] n 40 mg 2-03 TABLET BY ity of tablet 00:00: MOUTH [place] 00 EVERY DAY Medical AT BEDTIME [place] FOR 90 DAYS atorvastati 2018-02 Yes TAKE 1 [facility] n 40 mg 2-03 TABLET BY ity of tablet 00:00: MOUTH [place] 00 EVERY DAY Medical AT BEDTIME [place] FOR 90 DAYS atorvastati 2018-02 Yes TAKE 1 [facility] ers n 40 mg 2-03 TABLET BY ity of tablet 00:00: MOUTH [place] 00 EVERY DAY Medical [facility] FOR 90 DAYS atorvastati 2018-02 Yes TAKE 1 [facility] ers n 40 mg 2-03 TABLET BY ity of tablet 00:00: MOUTH [place] 00 EVERY DAY Medical AT BEDTIME [place] FOR 90 DAYS atorvastati 2018-02 Yes TAKE 1 [facility] ers n 40 mg 2-03 TABLET BY ity of tablet 00:00: MOUTH [place] 00 EVERY DAY Medical AT [facility] FOR 90 DAYS atorvastati 2018-02 Yes TAKE 1 [facility] ers n 40 mg 2-03 TABLET BY ity of tablet 00:00: MOUTH [place] 00 EVERY DAY Medical AT [facility] FOR 90 DAYS atorvastati 2018-02 Yes TAKE 1 [facility] ers n 40 mg 2-03 TABLET BY ity of tablet 00:00: MOUTH [place] 00 EVERY DAY Medical [facility] FOR 90 DAYS atorvastati 2018-02- No 40mg Take 40 mg Univers n 40 mg 2-03 11-04 by mouth ity of tablet 00:00: 00:00 at [place] 00 :00 bedtime. Medical Branch doxycycline 2018-02 Yes [id number] 100mg Take 1 [facility] 100 mg 1-27 capsule by ity of capsule 00:00: mouth [place] 00 every 12 Medical (twelve) Branch hours. doxycycline 2018-02 Yes [id number] 100mg Take 1 [facility] 100 mg 1-27 capsule by ity of capsule 00:00: mouth [place] 00 every 12 Medical (twelve) Branch hours. doxycycline 2018-02 Yes [id number] 100mg Take 1 [facility] 100 mg 1-27 capsule by ity of capsule 00:00: mouth [place] 00 every 12 Medical (twelve) Branch hours. doxycycline 2018-02 2020- No [id number] 100mg Take 1 [facility] 100 mg 1-27 01-15 capsule by ity of capsule 00:00: 00:00 mouth [place] 00 :00 every 12 Medical (twelve) Branch hours. doxycycline 2018-02 2020- No [id number] 100mg Take 1 [facility] 100 mg 1-27 01-15 capsule by ity of capsule 00:00: 00:00 mouth [place] 00 :00 every 12 Medical (twelve) Branch hours. doxycycline 2018-02 2020- No [id number] 100mg Take 1 [facility] 100 mg 1-27 -15 capsule by ity of capsule 00:00: 00:00 mouth [place] 00 :00 every 12 Medical (twelve) Branch hours. doxycycline 2019-0 Yes [id number] 100mg Take 1 [facility] 100 mg 8-21 capsule by ity of capsule 00:00: mouth [place] 00 every 12 Medical (twelve) Branch hours. proMETHazin 2019-0 Yes [id number] 12.5mg Take 1 Univers e 12.5 mg 8-21 tablet by ity o f tablet 00:00: mouth [place] 00 every 4 Medical (four) Branch hours as needed for Nausea and Vomiting (N/V). doxycycline 2019-0 Yes [id number] 100mg Take 1 [facility] 100 mg 8-21 capsule by ity of capsule 00:00: mouth [place] 00 every 12 Medical (twelve) Branch hours. proMETHazin 2019-0 Yes [id number] 12.5mg Take 1 Univers e 12.5 mg 8-21 tablet by ity o f tablet 00:00: mouth [place] 00 every 4 Medical (four) Branch hours as needed for Nausea and Vomiting (N/V). doxycycline 2019-0 Yes [id number] 100mg Take 1 [facility] 100 mg 8-21 capsule by ity of capsule 00:00: mouth [place] 00 every 12 Medical (twelve) Branch hours. proMETHazin 2019-0 Yes [id number] 12.5mg Take 1 Univers e 12.5 mg 8-21 tablet by ity o f tablet 00:00: mouth [place] 00 every 4 Medical (four) Branch hours as needed for Nausea and Vomiting (N/V). doxycycline 2019-0 Yes [id number] 100mg Take 1 [facility] 100 mg 8-21 capsule by ity of capsule 00:00: mouth [place] 00 every 12 Medical (twelve) Branch hours. proMETHazin 2019-0 Yes [id number] 12.5mg Take 1 Univers e 12.5 mg 8-21 tablet by ity o f tablet 00:00: mouth [place] 00 every 4 Medical (four) Branch hours as needed for Nausea and Vomiting (N/V). proMETHazin 2019-0 Yes [id number] 12.5mg Take 1 Univers e 12.5 mg 8-21 tablet by ity o f tablet 00:00: mouth [place] 00 every 4 Medical (four) Branch hours as needed for Nausea and Vomiting (N/V). proMETHazin 2019-0 Yes [id number] 12.5mg Take 1 Univers e 12.5 mg 8-21 tablet by ity o f tablet 00:00: mouth [place] 00 every 4 Medical (four) Branch hours as needed for Nausea and Vomiting (N/V). proMETHazin 2018-0 Yes [id number] 12.5mg Take 1 Univers e 12.5 mg 8-21 tablet by ity o f tablet 00:00: mouth [place] 00 every 4 Medical (four) Branch hours as needed for Nausea and Vomiting (N/V). proMETHazin 2018-0 Yes [id number] 12.5mg Take 1 Univers e 12.5 mg 8-21 tablet by ity o f tablet 00:00: mouth [place] 00 every 4 Medical (four) Branch hours as needed for Nausea and Vomiting (N/V). proMETHazin 2018-0 Yes [id number] 12.5mg Take 1 Univers e 12.5 mg 8-21 tablet by ity o f tablet 00:00: mouth [place] 00 every 4 Medical (four) Branch hours as needed for Nausea and Vomiting (N/V). proMETHazin 2018-0 Yes [id number] 12.5mg Take 1 Univers e 12.5 mg 8-21 tablet by ity o f tablet 00:00: mouth [place] 00 every 4 Medical (four) Branch hours as needed for Nausea and Vomiting (N/V). proMETHazin 2019-0 Yes [id number] 12.5mg Take 1 Univers e 12.5 mg 8-21 tablet by ity o f tablet 00:00: mouth [place] 00 every 4 Medical (four) Branch hours as needed for Nausea and Vomiting (N/V). proMETHazin 2019-0 Yes [id number] 12.5mg Take 1 Univers e 12.5 mg 8-21 tablet by ity o f tablet 00:00: mouth [place] 00 every 4 Medical (four) Branch hours as needed for Nausea and Vomiting (N/V). proMETHazin 2019-0 Yes [id number] 12.5mg Take 1 Univers e 12.5 mg 8-21 tablet by ity o f tablet 00:00: mouth [place] 00 every 4 Medical (four) Branch hours as needed for Nausea and Vomiting (N/V). proMETHazin Yes [id number] 12.5mg Take 1 Univers e 12.5 mg 8-21 tablet by ity o f tablet 00:00: mouth [place] 00 every 4 Medical (four) Branch hours as needed for Nausea and Vomiting (N/V). proMETHazin Yes [id number] 12.5mg Take 1 Univers e 12.5 mg 8-21 tablet by ity o f tablet 00:00: mouth [place] 00 every 4 Medical (four) Branch hours as needed for Nausea and Vomiting (N/V). proMETHazin Yes [id number] 12.5mg Take 1 Univers e 12.5 mg 8-21 tablet by ity o f tablet 00:00: mouth [place] 00 every 4 Medical (four) Branch hours as needed for Nausea and Vomiting (N/V). proMETHazin Yes [id number] 12.5mg Take 1 Univers e 12.5 mg 8-21 tablet by ity o f tablet 00:00: mouth [place] 00 every 4 Medical (four) Branch hours as needed for Nausea and Vomiting (N/V). proMETHazin Yes [id number] 12.5mg Take 1 Univers e 12.5 mg 8-21 tablet by ity o f tablet 00:00: mouth [place] 00 every 4 Medical (four) Branch hours as needed for Nausea and Vomiting (N/V). proMETHazin Yes [id number] 12.5mg Take 1 Univers e 12.5 mg 8-21 tablet by ity o f tablet 00:00: mouth [place] 00 every 4 Medical (four) Branch hours as needed for Nausea and Vomiting (N/V). proMETHazin 2020- No [id number] 12.5mg Take 1 Univers e 12.5 mg 8-21 -27 tablet by ity of tablet 00:00: 00:00 mouth [place] 00 :00 every 4 Medical (four) Branch hours as needed for Nausea and Vomiting (N/V). sulfamethox Yes [id number] 1{tbl} Take 1 Univers azole-trime 8-14 tablet by ity of thoprim 00:00: mouth 2 [place] (BACTRIM 00 (two) Medical DS) 800-160 times Branch mg per daily. tablet sulfamethox 2019-0 Yes [id number] 1{tbl} Take 1 Univers azole-trime 8-14 tablet by ity of thoprim 00:00: mouth 2 [place] (BACTRIM 00 (two) Medical DS) 800-160 times Branch mg per daily. tablet sulfamethox 2018- 2019- No [id number] 1{tbl} Take 1 Univers azole-trime 8-14 08-21 tablet by it y of thoprim 00:00: 00:00 mouth 2 [place] (BACTRIM 00 :00 (two) Medical DS) 800-160 times Branch mg per daily. tablet sulfamethox 2019-0 2019- No [id number] 1{tbl} Take 1 Univers azole-trime 8-14 08-21 tablet by it y of thoprim 00:00: 00:00 mouth 2 [place] (BACTRIM 00 :00 (two) Medical DS) 800-160 times Branch mg per daily. tablet sulfamethox 2019-0 Yes [id number] 2{tbl} Take 2 Univers azole-trime 7-31 tablets by it y of thoprim 00:00: mouth 2 [place] (BACTRIM 00 (two) Medical DS) 800-160 times Branch mg per daily. tablet sulfamethox 2019-0 Yes [id number] 2{tbl} Take 2 Univers azole-trime 7-31 tablets by it y of thoprim 00:00: mouth 2 [place] (BACTRIM 00 (two) Medical DS) 800-160 times Branch mg per daily. tablet sulfamethox 2019-0 Yes [id number] 2{tbl} Take 2 Univers azole-trime 7-31 tablets by it y of thoprim 00:00: mouth 2 [place] (BACTRIM 00 (two) Medical DS) 800-160 times Branch mg per daily. tablet sulfamethox 2019-0 Yes [id number] 2{tbl} Take 2 Univers azole-trime 7-31 tablets by it y of thoprim 00:00: mouth 2 [place] (BACTRIM 00 (two) Medical DS) 800-160 times Branch mg per daily. tablet sulfamethox 2019-0 Yes [id number] 2{tbl} Take 2 Univers azole-trime 7-31 tablets by it y of thoprim 00:00: mouth 2 [place] (BACTRIM 00 (two) Medical DS) 800-160 times Branch mg per daily. tablet sulfamethox 2019-0 Yes [id number] 2{tbl} Take 2 Univers azole-trime 7-31 tablets by it y of thoprim 00:00: mouth 2 [place] (BACTRIM 00 (two) Medical DS) 800-160 times Branch mg per daily. tablet sulfamethox 2019- No [id number] 2{tbl} Take 2 Univers azole-trime 7-31 08-14 tablets by i ty of thoprim 00:00: 00:00 mouth 2 [place] (BACTRIM 00 :00 (two) Medical DS) 800-160 times Branch mg per daily. tablet proMETHazin 2018- Yes 12.5mg Take 1 Un tabitha e 12.5 mg 7-15 tablet by ity o f tablet 00:00: mouth [place] 00 every 4 Medical (four) Branch hours as needed for Nausea and Vomiting (N/V). proMETHazin 2018- Yes 12.5mg Take 1 Un tabitha e 12.5 mg 7-15 tablet by ity o f tablet 00:00: mouth [place] 00 every 4 Medical (four) Branch hours as needed for Nausea and Vomiting (N/V). proMETHazin 2018- Yes 12.5mg Take 1 Un tabitha e 12.5 mg 7-15 tablet by ity o f tablet 00:00: mouth [place] 00 every 4 Medical (four) Branch hours as needed for Nausea and Vomiting (N/V). proMETHazin 2018- Yes 12.5mg Take 1 Un tabitha e 12.5 mg 7-15 tablet by ity o f tablet 00:00: mouth [place] 00 every 4 Medical (four) Branch hours as needed for Nausea and Vomiting (N/V). proMETHazin 2019-0 Yes 12.5mg Take 1 Un tabitha e 12.5 mg 7-15 tablet by ity o f tablet 00:00: mouth [place] 00 every 4 Medical (four) Branch hours as needed for Nausea and Vomiting (N/V). proMETHazin 2019-0 Yes 12.5mg Take 1 Un tabitha e 12.5 mg 7-15 tablet by ity o f tablet 00:00: mouth [place] 00 every 4 Medical (four) Branch hours as needed for Nausea and Vomiting (N/V). proMETHazin 2018- Yes 12.5mg Take 1 Un tabitha e 12.5 mg 7-15 tablet by ity o f tablet 00:00: mouth [place] 00 every 4 Medical (four) Branch hours as needed for Nausea and Vomiting (N/V). proMETHazin 2018- Yes 12.5mg Take 1 Un tabitha e 12.5 mg 7-15 tablet by ity o f tablet 00:00: mouth [place] 00 every 4 Medical (four) Branch hours as needed for Nausea and Vomiting (N/V). proMETHazin 2019- No 12.5mg Take 1 U nivers e 12.5 mg 7-15 08-21 tablet by ity of tablet 00:00: 00:00 mouth [place] 00 :00 every 4 Medical (four) Branch hours as needed for Nausea and Vomiting (N/V). proMETHazin 2018- No 12.5mg Take 1 U nivers e 12.5 mg 7-15 08-21 tablet by ity of tablet 00:00: 00:00 mouth [place] 00 :00 every 4 Medical (four) Branch hours as needed for Nausea and Vomiting (N/V). LISINOPRIL Yes Take by [facility] [place] [facility] ers ORAL 08-14 mouth as ity of 23:36: needed. [address] omeprazole Yes 40mg Take 40 mg U nivers (PRILOSEC) 08-14 by mouth ity o f 20 mg 23:36: daily. [address] aspirin 325 Yes 325mg Take 325 U nivers mg tablet 02 mg by ity of 23:36: mouth [place] [address] daily. [facility] Branch citalopram Yes 40mg Take 40 mg U nivers (CELEXA) 40 02 by mouth ity of mg tablet 23:36: daily. [address] clopidogrel Yes 75mg Take 75 mg Univers (PLAVIX) 75 02 by mouth ity of mg tablet 23:36: daily. [address] insulin NPH Yes inject [facility] [place] [facility] ers 100 unit/mL 08-14 under the ity of injection 23:36: skin 3 [place] [address] (three) Medical times Branch daily. Sliding scale TID LISINOPRIL Yes Take by Univ ers ORAL 7-02 mouth as ity of 23:36: needed. [address] Branch omeprazole 2018-0 Yes 40mg Take 40 mg U nivers (PRILOSEC) 7-02 by mouth ity o f 20 mg 23:36: daily. [place] [address] Medical Branch aspirin 325 2019-0 Yes 325mg Take 325 U nivers mg tablet 7-02 mg by ity of 23:36: mouth [place] 24 daily. [facility] Branch citalopram Yes 40mg Take 40 mg U nivers (CELEXA) 40 7-02 by mouth ity of mg tablet 23:36: daily. [address] clopidogrel Yes 75mg Take 75 mg Univers (PLAVIX) 75 7-02 by mouth ity of mg tablet 23:36: daily. [address] insulin NPH Yes inject Univ ers 100 unit/mL 7-02 under the ity of injection 23:36: skin 3 [place] [address] (three) Medical times [place] daily. Sliding scale TID LISINOPRIL Yes Take by Univ ers ORAL 7-02 mouth as ity of 23:36: needed. [address] omeprazole Yes 40mg Take 40 mg U nivers (PRILOSEC) 7-02 by mouth ity o f 20 mg 23:36: daily. [address] aspirin 325 2018-0 Yes 325mg Take 325 U nivers mg tablet 7-02 mg by ity of 23:36: mouth [place] [address] daily. [facility] citalopram Yes 40mg Take 40 mg U nivers (CELEXA) 40 7-02 by mouth ity of mg tablet 23:36: daily. [address] clopidogrel 0 Yes 75mg Take 75 mg Univers (PLAVIX) 75 7-02 by mouth ity of mg tablet 23:36: daily. [address] insulin NPH 2018-0 Yes inject Univ ers 100 unit/mL 7-02 under the ity of injection 23:36: skin 3 [place] [address] (three) Medical times [place] daily. Sliding scale TID LISINOPRIL 2018-0 Yes Take by Univ ers ORAL 7-02 mouth as ity of 23:36: needed. [address] omeprazole Yes 40mg Take 40 mg U nivers (PRILOSEC) 7-02 by mouth ity o f 20 mg 23:36: daily. [place] [address] Medical Branch aspirin 325 2018- Yes 325mg Take 325 U nivers mg tablet 7-02 mg by ity of 23:36: mouth [place] 24 daily. Medical Branch citalopram 0 Yes 40mg Take 40 mg U nivers (CELEXA) 40 7-02 by mouth ity of mg tablet 23:36: daily. [address] clopidogrel Yes 75mg Take 75 mg Univers (PLAVIX) 75 7-02 by mouth ity of mg tablet 23:36: daily. [address] Branch insulin NPH Yes inject Univ ers 100 unit/mL 7-02 under the ity of injection 23:36: skin 3 [place] [address] (three) Medical times [place] daily. Sliding scale TID LISINOPRIL 2018-0 Yes Take by Univ ers ORAL 7-02 mouth as ity of 23:36: needed. [address] omeprazole Yes 40mg Take 40 mg U nivers (PRILOSEC) 7-02 by mouth ity o f 20 mg 23:36: daily. [place] [address] Medical Branch aspirin 325 0 Yes 325mg Take 325 U nivers mg tablet 7-02 mg by ity of 23:36: mouth [place] 24 daily. [facility] Branch citalopram Yes 40mg Take 40 mg U nivers (CELEXA) 40 7-02 by mouth ity of mg tablet 23:36: daily. [address] clopidogrel Yes 75mg Take 75 mg Univers (PLAVIX) 75 7-02 by mouth ity of mg tablet 23:36: daily. [address] insulin NPH 0 Yes inject Univ ers 100 unit/mL 7-02 under the ity of injection 23:36: skin 3 [place] [address] (three) Medical times [place] daily. Sliding scale TID LISINOPRIL 2018-0 Yes Take by Univ ers ORAL 7-02 mouth as ity of 23:36: needed. [address] Branch omeprazole 0 Yes 40mg Take 40 mg U nivers (PRILOSEC) 7-02 by mouth ity o f 20 mg 23:36: daily. [address] Branch aspirin 325 2018- Yes 325mg Take 325 U nivers mg tablet 7-02 mg by ity of 23:36: mouth [place] 24 daily. Medical Branch citalopram Yes 40mg Take 40 mg U nivers (CELEXA) 40 7-02 by mouth ity of mg tablet 23:36: daily. [address] clopidogrel 2019-0 Yes 75mg Take 75 mg Univers (PLAVIX) 75 7-02 by mouth ity of mg tablet 23:36: daily. [address] insulin NPH 2018- Yes inject Univ ers 100 unit/mL 7-02 under the ity of injection 23:36: skin 3 [place] [address] (three) Medical times [place] daily. Sliding scale TID LISINOPRIL 2018- Yes Take by Univ ers ORAL 7-02 mouth as ity of 23:36: needed. [address] omeprazole Yes 40mg Take 40 mg U nivers (PRILOSEC) 7-02 by mouth ity o f 20 mg 23:36: daily. [address] aspirin 325 2018- Yes 325mg Take 325 U nivers mg tablet 7-02 mg by ity of 23:36: mouth [place] [address] daily. [facility] citalopram Yes 40mg Take 40 mg U nivers (CELEXA) 40 7-02 by mouth ity of mg tablet 23:36: daily. [address] clopidogrel Yes 75mg Take 75 mg Univers (PLAVIX) 75 7-02 by mouth ity of mg tablet 23:36: daily. [address] insulin NPH Yes inject Univ ers 100 unit/mL 7-02 under the ity of injection 23:36: skin 3 [place] [address] (three) Medical times [place] daily. Sliding scale TID LISINOPRIL 2018-0 Yes Take by Univ ers ORAL 7-02 mouth as ity of 23:36: needed. [address] omeprazole 2018-0 Yes 40mg Take 40 mg U nivers (PRILOSEC) 7-02 by mouth ity o f 20 mg 23:36: daily. [address] aspirin 325 2018-0 Yes 325mg Take 325 U nivers mg tablet 7-02 mg by ity of 23:36: mouth [place] [address] daily. [facility] citalopram 2018- Yes 40mg Take 40 mg U nivers (CELEXA) 40 7-02 by mouth ity of mg tablet 23:36: daily. [address] clopidogrel 2018-0 Yes 75mg Take 75 mg Univers (PLAVIX) 75 7-02 by mouth ity of mg tablet 23:36: daily. [address] insulin NPH 2018-0 Yes inject Univ ers 100 unit/mL 7-02 under the ity of injection 23:36: skin 3 [place] [address] (three) Medical times [place] daily. Sliding scale TID LISINOPRIL 2018- Yes Take by Univ ers ORAL 7-02 mouth as ity of 23:36: needed. [address] omeprazole 2018-0 Yes 40mg Take 40 mg U nivers (PRILOSEC) 7-02 by mouth ity o f 20 mg 23:36: daily. [place] capsule [address] [place] [address] aspirin 325 2018- Yes 325mg Take 325 U nivers mg tablet 7-02 mg by ity of 23:36: mouth [place] 24 daily. [facility] citalopram Yes 40mg Take 40 mg U nivers (CELEXA) 40 7-02 by mouth ity of mg tablet 23:36: daily. [address] clopidogrel Yes 75mg Take 75 mg Univers (PLAVIX) 75 7-02 by mouth ity of mg tablet 23:36: daily. [address] insulin NPH 2018- Yes inject Univ ers 100 unit/mL 7-02 under the ity of injection 23:36: skin 3 [place] [address] (three) Medical times [place] daily. Sliding scale TID LISINOPRIL 2018-0 Yes Take by Univ ers ORAL 7-02 mouth as ity of 23:36: needed. [address] clopidogrel Yes 75mg Take 75 mg Univers (PLAVIX) 75 7-02 by mouth ity of mg tablet 23:36: daily. [address] omeprazole 2018-0 Yes 40mg Take 40 mg U nivers (PRILOSEC) 7-02 by mouth ity o f 20 mg 23:36: daily. [place] capsule [address] [place] [address] clopidogrel 2018-0 Yes 75mg Take 75 mg Univers (PLAVIX) 75 7-02 by mouth ity of mg tablet 23:36: daily. [address] aspirin 325 2018-0 Yes 325mg Take 325 U nivers mg tablet 7-02 mg by ity of 23:36: mouth [place] [address] daily. [facility] clopidogrel 2018-0 Yes 75mg Take 75 mg [facility] (PLAVIX) 75 7-02 by mouth ity of mg tablet 23:36: daily. [address] citalopram 2019-0 Yes 40mg Take 40 mg [facility] n[facility] (CELEXA) 40 7-02 by mouth ity of mg tablet 23:36: daily. [address] clopidogrel 2019-0 Yes 75mg Take 75 mg [facility] (PLAVIX) 75 7-02 by mouth ity of mg tablet 23:36: daily. [address] clopidogrel 2018-0 Yes 75mg Take 75 mg [facility] (PLAVIX) 75 7-02 by mouth ity of mg tablet 23:36: daily. [address] clopidogrel 2018- Yes 75mg Take 75 mg [facility] (PLAVIX) 75 7-02 by mouth ity of mg tablet 23:36: daily. [address] insulin NPH Yes inject Univ ers 100 unit/mL 7-02 under the ity of injection 23:36: skin [address] [place] [address] (three) Medical times [place] daily. Sliding scale TID LISINOPRIL 2018- Yes Take by Univ ers ORAL 7-02 mouth as ity of 23:36: needed. [address] clopidogrel 2018- Yes 75mg Take 75 mg [facility] (PLAVIX) 75 7-02 by mouth ity of mg tablet 23:36: daily. [address] omeprazole 0 Yes 40mg Take 40 mg U nivers (PRILOSEC) 7-02 by mouth ity o f 20 mg 23:36: daily. [address] aspirin 325 2018-0 Yes 325mg Take 325 U nivers mg tablet 7-02 mg by ity of 23:36: mouth [place] [address] daily. [facility] citalopram 0 Yes 40mg Take 40 mg U nivers (CELEXA) 40 7-02 by mouth ity of mg tablet 23:36: daily. [address] clopidogrel 2018-0 Yes 75mg Take 75 mg [facility] (PLAVIX) 75 7-02 by mouth ity of mg tablet 23:36: daily. [address] insulin NPH 2018-0 Yes inject Univ ers 100 unit/mL 7-02 under the ity of injection 23:36: skin [address] [place] [address] (three) Medical times [place] daily. Sliding scale TID LISINOPRIL 2018-0 Yes Take by Univ ers ORAL 7-02 mouth as ity of 23:36: needed. [address] omeprazole Yes 40mg Take 40 mg U nivers (PRILOSEC) 7-02 by mouth ity o f 20 mg 23:36: daily. [address] aspirin 325 Yes 325mg Take 325 U nivers mg tablet 7-02 mg by ity of 23:36: mouth [place] 24 daily. [facility] citalopram Yes 40mg Take 40 mg U nivers (CELEXA) 40 7-02 by mouth ity of mg tablet 23:36: daily. [address] clopidogrel Yes 75mg Take 75 mg [facility] (PLAVIX) 75 7-02 by mouth ity of mg tablet 23:36: daily. [address] insulin NPH Yes inject Univ ers 100 unit/mL 7-02 under the ity of injection 23:36: skin [address] [place] [address] (three) Medical times [place] daily. Sliding scale TID LISINOPRIL Yes Take by Univ ers ORAL 7-02 mouth as ity of 23:36: needed. [address] omeprazole Yes 40mg Take 40 mg U nivers (PRILOSEC) 7-02 by mouth ity o f 20 mg 23:36: daily. [address] aspirin 325 Yes 325mg Take 325 U nivers mg tablet 7-02 mg by ity of 23:36: mouth [place] [address] daily. [facility] citalopram Yes 40mg Take 40 mg U nivers (CELEXA) 40 7-02 by mouth ity of mg tablet 23:36: daily. [address] clopidogrel Yes 75mg Take 75 mg [facility] (PLAVIX) 75 7-02 by mouth ity of mg tablet 23:36: daily. [address] insulin NPH 0 Yes inject Univ ers 100 unit/mL 7-02 under the ity of injection 23:36: skin [address] [place] [address] (three) Medical times [place] daily. Sliding scale TID LISINOPRIL 2019-0 Yes Take by Univ ers ORAL 7-02 mouth as ity of 23:36: needed. [address] omeprazole Yes 40mg Take 40 mg U nivers (PRILOSEC) 7-02 by mouth ity o f 20 mg 23:36: daily. [address] aspirin 325 2019-0 Yes 325mg Take 325 U nivers mg tablet -02 mg by ity of 23:36: mouth [place] [address] daily. Medical Branch citalopram Yes 40mg Take 40 mg [facility] nivers (CELEXA) 40 08-14 by mouth ity of mg tablet 23:36: daily. [place] [address] Medical Branch clopidogrel Yes 75mg Take 75 mg [facility] (PLAVIX) 75 08-14 by mouth ity of mg tablet 23:36: daily. [place] [address] Medical Branch insulin NPH Yes inject Univ ers 100 unit/mL 08-14 under the ity of injection 23:36: skin [address] [place] [address] (three) Medical times Branch daily. Sliding scale TID atorvastati 2019- No [id number] 40mg Take 1 [facility] n 40 mg -03 23- tablet by ity of tablet 00:00: 04:59 mouth at [place] 00 :00 bedtime Medical for 30 Branch days. metFORMIN 2019- No [id number] 1000mg Take 1 [facility] 1,000 mg -03 23- tablet by ity o f tablet 00:00: 04:59 mouth 2 [place] 00 :00 (two) Medical times [place] daily with meals for 30 days. atorvastati 2019- No [id number] 40mg Take 1 [facility] n 40 mg -03 23- tablet by ity of tablet 00:00: 04:59 mouth at [place] 00 :00 bedtime Medical for 30 Branch days. metFORMIN 2019- No [id number] 1000mg Take 1 [facility] 1,000 mg -03 23- tablet by ity o f tablet 00:00: 04:59 mouth 2 [place] 00 :00 (two) Medical times Branch daily with meals for 30 days. atorvastati 2019- No [id number] 40mg Take 1 [facility] n 40 mg 7-03 23- tablet by ity of tablet 00:00: 04:59 mouth at [place] 00 :00 bedtime Medical for 30 Branch days. metFORMIN 2019- No [id number] 1000mg Take 1 [facility] 1,000 mg 7-03 23- tablet by ity o f tablet 00:00: 04:59 mouth 2 [place] 00 :00 (two) Medical times Branch daily with meals for 30 days. traMADOL 50 2018- Yes [id number] 50mg Take 1 [facility] mg tablet 4-01 tablet by ity o f 00:00: mouth [place] 00 every 6 Medical (six) Branch hours as needed for Pain (scale 4-6) or Pain (scale 7-10). traMADOL 50 2018-0 Yes [id number] 50mg Take 1 [facility] mg tablet 4-01 tablet by ity o f 00:00: mouth [place] 00 every 6 Medical (six) Branch hours as needed for Pain (scale 4-6) or Pain (scale 7-10). traMADOL 50 2018-0 Yes [id number] 50mg Take 1 [facility] mg tablet 4-01 tablet by ity o f 00:00: mouth [place] 00 every 6 Medical (six) Branch hours as needed for Pain (scale 4-6) or Pain (scale 7-10). traMADOL 50 2018-0 Yes [id number] 50mg Take 1 [facility] mg tablet 4-01 tablet by ity o f 00:00: mouth [place] 00 every 6 Medical (six) Branch hours as needed for Pain (scale 4-6) or Pain (scale 7-10). traMADOL 50 2018-0 Yes [id number] 50mg Take 1 [facility] mg tablet 4-01 tablet by ity o f 00:00: mouth [place] 00 every 6 Medical (six) Branch hours as needed for Pain (scale 4-6) or Pain (scale 7-10). traMADOL 50 2018-0 Yes [id number] 50mg Take 1 [facility] mg tablet 4-01 tablet by ity o f 00:00: mouth [place] 00 every 6 Medical (six) Branch hours as needed for Pain (scale 4-6) or Pain (scale 7-10). traMADOL 50 2018-0 Yes [id number] 50mg Take 1 [facility] mg tablet 4-01 tablet by ity o f 00:00: mouth [place] 00 every 6 Medical (six) Branch hours as needed for Pain (scale 4-6) or Pain (scale 7-10). traMADOL 50 2019-0 Yes [id number] 50mg Take 1 [facility] mg tablet 4-01 tablet by ity o f 00:00: mouth [place] 00 every 6 Medical (six) Branch hours as needed for Pain (scale 4-6) or Pain (scale 7-10). traMADOL 50 2018-0 Yes [id number] 50mg Take 1 [facility] mg tablet 4-01 tablet by ity o f 00:00: mouth [place] 00 every 6 Medical (six) Branch hours as needed for Pain (scale 4-6) or Pain (scale 7-10). traMADOL 50 2019-0 Yes [id number] 50mg Take 1 [facility] mg tablet 4-01 tablet by ity o f 00:00: mouth [place] 00 every 6 Medical (six) Branch hours as needed for Pain (scale 4-6) or Pain (scale 7-10). traMADOL 50 2019-0 Yes [id number] 50mg Take 1 [facility] mg tablet 4-01 tablet by ity o f 00:00: mouth [place] 00 every 6 Medical (six) Branch hours as needed for Pain (scale 4-6) or Pain (scale 7-10). traMADOL 50 2018-0 Yes [id number] 50mg Take 1 [facility] mg tablet 4-01 tablet by ity o f 00:00: mouth [place] 00 every 6 Medical (six) Branch hours as needed for Pain (scale 4-6) or Pain (scale 7-10). traMADOL 50 Yes [id number] 50mg Take 1 [facility] mg tablet 4-01 tablet by ity o f 00:00: mouth [place] 00 every 6 Medical (six) Branch hours as needed for Pain (scale 4-6) or Pain (scale 7-10). traMADOL 50 Yes [id number] 50mg Take 1 [facility] mg tablet 4-01 tablet by ity o f 00:00: mouth [place] 00 every 6 Medical (six) Branch hours as needed for Pain (scale 4-6) or Pain (scale 7-10). traMADOL 50 0 Yes [id number] 50mg Take 1 [facility] mg tablet 4-01 tablet by ity o f 00:00: mouth [place] 00 every 6 Medical (six) Branch hours as needed for Pain (scale 4-6) or Pain (scale 7-10). traMADOL 50 2019-0 Yes [id number] 50mg Take 1 [facility] mg tablet 4-01 tablet by ity o f 00:00: mouth [place] 00 every 6 Medical (six) Branch hours as needed for Pain (scale 4-6) or Pain (scale 7-10). traMADOL 50 0 Yes [id number] 50mg Take 1 [facility] mg tablet 4-01 tablet by ity o f 00:00: mouth [place] 00 every 6 Medical (six) Branch hours as needed for Pain (scale 4-6) or Pain (scale 7-10). traMADOL 50 2019-0 Yes [id number] 50mg Take 1 [facility] mg tablet 4- tablet by ity o f 00:00: mouth [place] 00 every 6 Medical (six) Branch hours as needed for Pain (scale 4-6) or Pain (scale 7-10). traMADOL 50 2019-0 Yes [id number] 50mg Take 1 [facility] mg tablet 4- tablet by ity o f 00:00: mouth [place] 00 every 6 Medical (six) Branch hours as needed for Pain (scale 4-6) or Pain (scale 7-10). traMADOL 50 2019-0 Yes [id number] 50mg Take 1 [facility] mg tablet 4- tablet by ity o f 00:00: mouth [place] 00 every 6 Medical (six) Branch hours as needed for Pain (scale 4-6) or Pain (scale 7-10). traMADOL 50 2018-0 2020- No [id number] 50mg Take 1 [facility] mg tablet 05-14-17 tablet by ity of 00:00: 00:00 mouth [place] 00 :00 every 6 Medical (six) Branch hours as needed for Pain (scale 4-6) or Pain (scale 7-10). Promethazin Promethazin No 1{table Promethazi e HCl 12.5 e HCl 12.5 t_as_ne ne HCl MG MG eded} 12.5 MG Meclizine Meclizine No 1{table QD Meclizine HCl 25 MG HCl 25 MG t_as_ne HCl 25 MG eded} azaTHIOprin azaTHIOprin No azaTHIOpri e 50 MG e 50 MG ne 50 MG traMADol traMADol No traMADol HCl 50 MG HCl 50 MG HCl 50 MG Ursodiol Ursodiol No Ursodiol 300 MG 300 MG 300 MG Atorvastati Atorvastati No 1{table Atorvastat n Calcium n Calcium t} in Calcium 40 MG 40 MG 40 MG Lisinopril Lisinopril No 1{table QD Lisinopril 5 MG 5 MG t} 5 MG Omeprazole Omeprazole No Omeprazole 40 MG 40 MG 40 MG Promethazin Promethazin No 1{table Promethazi e HCl 12.5 e HCl 12.5 t_as_ne ne HCl MG MG eded} 12.5 MG Promethazin Promethazin No 1{table Promethazi e HCl 12.5 e HCl 12.5 t_as_ne ne HCl MG MG eded} 12.5 MG Tylenol 500 Tylenol 500 No 2{table Tylenol mg mg ts} 500 mg Citalopram Citalopram No Citalopram Hydrobromid Hydrobromid Hydrobromi e 40 MG e 40 MG de 40 MG predniSONE predniSONE No predniSONE 5 MG 5 MG 5 MG NovoLIN NovoLIN No TID NovoLIN 70/30 70/30 70/30 (70-30) 100 (70-30) 100 (70-30) UNIT/ML UNIT/ML 100 UNIT/ML Omeprazole Omeprazole No Omeprazole 40 MG 40 MG 40 MG azaTHIOprin azaTHIOprin No azaTHIOpri e 50 MG e 50 MG ne 50 MG Meclizine Meclizine No 1{table QD Meclizine HCl 25 MG HCl 25 MG t_as_ne HCl 25 MG eded} Atorvastati Atorvastati No 1{table Atorvastat n Calcium n Calcium t} in Calcium 40 MG 40 MG 40 MG Citalopram Citalopram No 1{table QD Citalopram Hydrobromid Hydrobromid t} Hydrobromi e 40MG e 40MG de 40MG Citalopram Citalopram No Citalopram Hydrobromid Hydrobromid Hydrobromi e 40 MG e 40 MG de 40 MG Promethazin Promethazin No 1{table Promethazi e HCl 12.5 e HCl 12.5 t_as_ne ne HCl MG MG eded} 12.5 MG Tylenol 500 Tylenol 500 No 2{table Tylenol mg mg ts} 500 mg Lisinopril Lisinopril No 1{table QD Lisinopril 5 MG 5 MG t} 5 MG NovoLIN NovoLIN No TID NovoLIN 70/30 70/30 70/30 (70-30) 100 (70-30) 100 (70-30) UNIT/ML UNIT/ML 100 UNIT/ML traMADol traMADol No traMADol HCl 50 MG HCl 50 MG HCl 50 MG Ursodiol Ursodiol No Ursodiol 300 MG 300 MG 300 MG Promethazin Promethazin No 1{table Promethazi e HCl 12.5 e HCl 12.5 t_as_ne ne HCl MG MG eded} 12.5 MG Aspirin 325 Aspirin 325 No 1{table QD Aspirin MG MG t} 325 MG predniSONE predniSONE No predniSONE 5 MG 5 MG 5 MG Meclizine Meclizine No 1{table QD Meclizine HCl 25 MG HCl 25 MG t_as_ne HCl 25 MG eded} Omeprazole Omeprazole No Omeprazole 40 MG 40 MG 40 MG traMADol traMADol No traMADol HCl 50 MG HCl 50 MG HCl 50 MG Citalopram Citalopram No Citalopram Hydrobromid Hydrobromid Hydrobromi e 40 MG e 40 MG de 40 MG Promethazin Promethazin No 1{table Promethazi e HCl 12.5 e HCl 12.5 t_as_ne ne HCl MG MG eded} 12.5 MG Citalopram Citalopram No 1{table QD Citalopram Hydrobromid Hydrobromid t} Hydrobromi e 40MG e 40MG de 40MG Promethazin Promethazin No 1{table Promethazi e HCl 12.5 e HCl 12.5 t_as_ne ne HCl MG MG eded} 12.5 MG Ursodiol Ursodiol No Ursodiol 300 MG 300 MG 300 MG Tylenol 500 Tylenol 500 No 2{table Tylenol mg mg ts} 500 mg Atorvastati Atorvastati No 1{table Atorvastat n Calcium n Calcium t} in Calcium 40 MG 40 MG 40 MG predniSONE predniSONE No predniSONE 5 MG 5 MG 5 MG Aspirin 325 Aspirin 325 No 1{table QD Aspirin MG MG t} 325 MG NovoLIN NovoLIN No TID NovoLIN 70/30 70/30 70/30 (70-30) 100 (70-30) 100 (70-30) UNIT/ML UNIT/ML 100 UNIT/ML Lisinopril Lisinopril No 1{table QD Lisinopril 5 MG 5 MG t} 5 MG azaTHIOprin azaTHIOprin No azaTHIOpri e 50 MG e 50 MG ne 50 MG Meclizine Meclizine No 1{table QD Meclizine HCl 25 MG HCl 25 MG t_as_ne HCl 25 MG eded} Ursodiol Ursodiol No Ursodiol 300 MG 300 MG 300 MG Lisinopril Lisinopril No 1{table QD Lisinopril 5 MG 5 MG t} 5 MG Citalopram Citalopram No 1{table QD Citalopram Hydrobromid Hydrobromid t} Hydrobromi e 40MG e 40MG de 40MG Citalopram Citalopram No Citalopram Hydrobromid Hydrobromid Hydrobromi e 40 MG e 40 MG de 40 MG NovoLIN NovoLIN No TID NovoLIN 70/30 70/30 70/30 (70-30) 100 (70-30) 100 (70-30) UNIT/ML UNIT/ML 100 UNIT/ML Atorvastati Atorvastati No Atorvastat n Calcium n Calcium in Calcium 40 MG 40 MG 40 MG Aspirin 325 Aspirin 325 No 1{table QD Aspirin MG MG t} 325 MG azaTHIOprin azaTHIOprin No azaTHIOpri e 50 MG e 50 MG ne 50 MG Tylenol 500 Tylenol 500 No 2{table Tylenol mg mg ts} 500 mg predniSONE predniSONE No predniSONE 5 MG 5 MG 5 MG Promethazin Promethazin No Promethazi e HCl 12.5 e HCl 12.5 ne HCl MG MG 12.5 MG traMADol traMADol No traMADol HCl 50 MG HCl 50 MG HCl 50 MG Omeprazole Omeprazole No Omeprazole 40 MG 40 MG 40 MG azaTHIOprin azaTHIOprin No azaTHIOpri e 50 MG e 50 MG ne 50 MG Lisinopril Lisinopril No 1{table QD Lisinopril 5 MG 5 MG t} 5 MG predniSONE predniSONE No predniSONE 5 MG 5 MG 5 MG Omeprazole Omeprazole No Omeprazole 40 MG 40 MG 40 MG Citalopram Citalopram No 1{table QD Citalopram Hydrobromid Hydrobromid t} Hydrobromi e 40MG e 40MG de 40MG Atorvastati Atorvastati No 1{table Atorvastat n Calcium n Calcium t} in Calcium 40 MG 40 MG 40 MG Promethazin Promethazin No 1{table Promethazi e HCl 12.5 e HCl 12.5 t_as_ne ne HCl MG MG eded} 12.5 MG Atorvastati Atorvastati No Atorvastat n Calcium n Calcium in Calcium 40 MG 40 MG 40 MG NovoLIN NovoLIN No TID NovoLIN 70/30 70/30 70/30 (70-30) 100 (70-30) 100 (70-30) UNIT/ML UNIT/ML 100 UNIT/ML Aspirin 325 Aspirin 325 No 1{table QD Aspirin MG MG t} 325 MG Citalopram Citalopram No Citalopram Hydrobromid Hydrobromid Hydrobromi e 40 MG e 40 MG de 40 MG Ursodiol Ursodiol No Ursodiol 300 MG 300 MG 300 MG traMADol traMADol No traMADol HCl 50 MG HCl 50 MG HCl 50 MG Meclizine Meclizine No 1{table QD Meclizine HCl 25 MG HCl 25 MG t_as_ne HCl 25 MG eded} Promethazin Promethazin No Promethazi e HCl 12.5 e HCl 12.5 ne HCl MG MG 12.5 MG Tylenol 500 Tylenol 500 No 2{table Tylenol mg mg ts} 500 mg azaTHIOprin azaTHIOprin No azaTHIOpri e 50 MG e 50 MG ne 50 MG Lisinopril Lisinopril No 1{table QD Lisinopril 5 MG 5 MG t} 5 MG predniSONE predniSONE No predniSONE 5 MG 5 MG 5 MG Omeprazole Omeprazole No Omeprazole 40 MG 40 MG 40 MG Citalopram Citalopram No 1{table QD Citalopram Hydrobromid Hydrobromid t} Hydrobromi e 40MG e 40MG de 40MG Atorvastati Atorvastati No 1{table Atorvastat n Calcium n Calcium t} in Calcium 40 MG 40 MG 40 MG Promethazin Promethazin No 1{table Promethazi e HCl 12.5 e HCl 12.5 t_as_ne ne HCl MG MG eded} 12.5 MG Atorvastati Atorvastati No Atorvastat n Calcium n Calcium in Calcium 40 MG 40 MG 40 MG NovoLIN NovoLIN No TID NovoLIN 70/30 70/30 70/30 (70-30) 100 (70-30) 100 (70-30) UNIT/ML UNIT/ML 100 UNIT/ML Aspirin 325 Aspirin 325 No 1{table QD Aspirin MG MG t} 325 MG Citalopram Citalopram No Citalopram Hydrobromid Hydrobromid Hydrobromi e 40 MG e 40 MG de 40 MG Ursodiol Ursodiol No Ursodiol 300 MG 300 MG 300 MG traMADol traMADol No traMADol HCl 50 MG HCl 50 MG HCl 50 MG Meclizine Meclizine No 1{table QD Meclizine HCl 25 MG HCl 25 MG t_as_ne HCl 25 MG eded} Promethazin Promethazin No Promethazi e HCl 12.5 e HCl 12.5 ne HCl MG MG 12.5 MG Tylenol 500 Tylenol 500 No 2{table Tylenol mg mg ts} 500 mg azaTHIOprin azaTHIOprin No azaTHIOpri e 50 MG e 50 MG ne 50 MG Lisinopril Lisinopril No 1{table QD Lisinopril 5 MG 5 MG t} 5 MG predniSONE predniSONE No predniSONE 5 MG 5 MG 5 MG Omeprazole Omeprazole No Omeprazole 40 MG 40 MG 40 MG Citalopram Citalopram No 1{table QD Citalopram Hydrobromid Hydrobromid t} Hydrobromi e 40MG e 40MG de 40MG Atorvastati Atorvastati No 1{table Atorvastat n Calcium n Calcium t} in Calcium 40 MG 40 MG 40 MG Promethazin Promethazin No 1{table Promethazi e HCl 12.5 e HCl 12.5 t_as_ne ne HCl MG MG eded} 12.5 MG Atorvastati Atorvastati No Atorvastat n Calcium n Calcium in Calcium 40 MG 40 MG 40 MG NovoLIN NovoLIN No TID NovoLIN 70/30 70/30 70/30 (70-30) 100 (70-30) 100 (70-30) UNIT/ML UNIT/ML 100 UNIT/ML Aspirin 325 Aspirin 325 No 1{table QD Aspirin MG MG t} 325 MG Citalopram Citalopram No Citalopram Hydrobromid Hydrobromid Hydrobromi e 40 MG e 40 MG de 40 MG Ursodiol Ursodiol No Ursodiol 300 MG 300 MG 300 MG traMADol traMADol No traMADol HCl 50 MG HCl 50 MG HCl 50 MG Meclizine Meclizine No 1{table QD Meclizine HCl 25 MG HCl 25 MG t_as_ne HCl 25 MG eded} Promethazin Promethazin No Promethazi e HCl 12.5 e HCl 12.5 ne HCl MG MG 12.5 MG Tylenol 500 Tylenol 500 No 2{table Tylenol mg mg ts} 500 mg Omeprazole Omeprazole No Omeprazole 40 MG 40 MG 40 MG azaTHIOprin azaTHIOprin No azaTHIOpri e 50 MG e 50 MG ne 50 MG NovoLIN NovoLIN No TID NovoLIN 70/30 70/30 70/30 (70-30) 100 (70-30) 100 (70-30) UNIT/ML UNIT/ML 100 UNIT/ML predniSONE predniSONE No predniSONE 5 MG 5 MG 5 MG Aspirin 325 Aspirin 325 No 1{table QD Aspirin MG MG t} 325 MG Atorvastati Atorvastati No 1{table Atorvastat n Calcium n Calcium t} in Calcium 40 MG 40 MG 40 MG Promethazin Promethazin No 1{table Promethazi e HCl 12.5 e HCl 12.5 t_as_ne ne HCl MG MG eded} 12.5 MG traMADol traMADol No traMADol HCl 50 MG HCl 50 MG HCl 50 MG Atorvastati Atorvastati No Atorvastat n Calcium n Calcium in Calcium 40 MG 40 MG 40 MG Promethazin Promethazin No Promethazi e HCl 12.5 e HCl 12.5 ne HCl MG MG 12.5 MG Lisinopril Lisinopril No 1{table QD Lisinopril 5 MG 5 MG t} 5 MG Tylenol 500 Tylenol 500 No 2{table Tylenol mg mg ts} 500 mg Meclizine Meclizine No 1{table QD Meclizine HCl 25 MG HCl 25 MG t_as_ne HCl 25 MG eded} Ursodiol Ursodiol No Ursodiol 300 MG 300 MG 300 MG Citalopram Citalopram No Citalopram Hydrobromid Hydrobromid Hydrobromi e 40 MG e 40 MG de 40 MG traMADol traMADol No traMADol HCl 50 MG HCl 50 MG HCl 50 MG Tylenol 500 Tylenol 500 No 2{table Tylenol mg mg ts} 500 mg Ursodiol Ursodiol No Ursodiol 300 MG 300 MG 300 MG Lisinopril Lisinopril No 1{table QD Lisinopril 5 MG 5 MG t} 5 MG Meclizine Meclizine No 1{table QD Meclizine HCl 25 MG HCl 25 MG t_as_ne HCl 25 MG eded} Promethazin Promethazin No 1{table Promethazi e HCl 12.5 e HCl 12.5 t_as_ne ne HCl MG MG eded} 12.5 MG Atorvastati Atorvastati No Atorvastat n Calcium n Calcium in Calcium 40 MG 40 MG 40 MG Promethazin Promethazin No Promethazi e HCl 12.5 e HCl 12.5 ne HCl MG MG 12.5 MG azaTHIOprin azaTHIOprin No azaTHIOpri e 50 MG e 50 MG ne 50 MG predniSONE predniSONE No predniSONE 5 MG 5 MG 5 MG NovoLIN NovoLIN No TID NovoLIN 70/30 70/30 70/30 (70-30) 100 (70-30) 100 (70-30) UNIT/ML UNIT/ML 100 UNIT/ML Omeprazole Omeprazole No Omeprazole 40 MG 40 MG 40 MG Atorvastati Atorvastati No 1{table Atorvastat n Calcium n Calcium t} in Calcium 40 MG 40 MG 40 MG Aspirin 325 Aspirin 325 No 1{table QD Aspirin MG MG t} 325 MG Citalopram Citalopram No Citalopram Hydrobromid Hydrobromid Hydrobromi e 40 MG e 40 MG de 40 MG Omeprazole Omeprazole No Omeprazole 40 MG 40 MG 40 MG Aspirin 325 Aspirin 325 No 1{table QD Aspirin MG MG t} 325 MG Gabapentin Gabapentin No 1{capsu BID Gabapentin 300 MG 300 MG le} 300 MG NovoLIN NovoLIN No TID NovoLIN 70/30 70/30 70/30 (70-30) 100 (70-30) 100 (70-30) UNIT/ML UNIT/ML 100 UNIT/ML Atorvastati Atorvastati No 1{table Atorvastat n Calcium n Calcium t} in Calcium 40 MG 40 MG 40 MG Promethazin Promethazin No 1{table Promethazi e HCl 12.5 e HCl 12.5 t_as_ne ne HCl MG MG eded} 12.5 MG predniSONE predniSONE No predniSONE 5 MG 5 MG 5 MG Citalopram Citalopram No 1{table QD Citalopram Hydrobromid Hydrobromid t} Hydrobromi e 40MG e 40MG de 40MG Glimepiride Glimepiride No 1{table QD Glimepirid 2 MG 2 MG t_with_ e [address]_or_t he_firs t_main_ meal_of _the_da y} Citalopram Citalopram No Citalopram Hydrobromid Hydrobromid Hydrobromi e 40 MG e 40 MG de 40 MG Atorvastati Atorvastati No Atorvastat n Calcium n Calcium in Calcium 40 MG 40 MG 40 MG azaTHIOprin azaTHIOprin No azaTHIOpri e 50 MG e 50 MG ne 50 MG Tylenol 500 Tylenol 500 No 2{table Tylenol mg mg ts} 500 mg Ursodiol Ursodiol No Ursodiol 300 MG 300 MG 300 MG Promethazin Promethazin No Promethazi e HCl 12.5 e HCl 12.5 ne HCl MG MG 12.5 MG Meclizine Meclizine No 1{table QD Meclizine HCl 25 MG HCl 25 MG t_as_ne HCl 25 MG eded} traMADol traMADol No traMADol HCl 50 MG HCl 50 MG HCl 50 MG Lisinopril Lisinopril No 1{table QD Lisinopril 5 MG 5 MG t} 5 MG Atorvastati Atorvastati No Atorvastat n Calcium n Calcium in Calcium 40 MG 40 MG 40 MG Omeprazole Omeprazole No Omeprazole 40 MG 40 MG 40 MG traMADol traMADol No traMADol HCl 50 MG HCl 50 MG HCl 50 MG azaTHIOprin azaTHIOprin No azaTHIOpri e 50 MG e 50 MG ne 50 MG Glimepiride Glimepiride No 1{table QD Glimepirid 2 MG 2 MG t_with_ e [address]_or_t he_firs t_main_ meal_of _the_da y} NovoLIN NovoLIN No TID NovoLIN 70/30 70/30 70/30 (70-30) 100 (70-30) 100 (70-30) UNIT/ML UNIT/ML 100 UNIT/ML Promethazin Promethazin No Promethazi e HCl 12.5 e HCl 12.5 ne HCl MG MG 12.5 MG Ursodiol Ursodiol No Ursodiol 300 MG 300 MG 300 MG Meclizine Meclizine No 1{table QD Meclizine HCl 25 MG HCl 25 MG t_as_ne HCl 25 MG eded} Promethazin Promethazin No 1{table Promethazi e HCl 12.5 e HCl 12.5 t_as_ne ne HCl MG MG eded} 12.5 MG Lisinopril Lisinopril No 1{table QD Lisinopril 5 MG 5 MG t} 5 MG Tylenol 500 Tylenol 500 No 2{table Tylenol mg mg ts} 500 mg Atorvastati Atorvastati No 1{table Atorvastat n Calcium n Calcium t} in Calcium 40 MG 40 MG 40 MG Aspirin 325 Aspirin 325 No 1{table QD Aspirin MG MG t} 325 MG Citalopram Citalopram No 1{table QD Citalopram Hydrobromid Hydrobromid t} Hydrobromi e 40MG e 40MG de 40MG Glimepiride Glimepiride No Glimepirid 2 MG 2 MG e 2 MG Gabapentin Gabapentin No 1{capsu BID Gabapentin 300 MG 300 MG le} 300 MG predniSONE predniSONE No predniSONE 5 MG 5 MG 5 MG Citalopram Citalopram No Citalopram Hydrobromid Hydrobromid Hydrobromi e 40 MG e 40 MG de 40 MG Atorvastati Atorvastati No Atorvastat n Calcium n Calcium in Calcium 40 MG 40 MG 40 MG Omeprazole Omeprazole No Omeprazole 40 MG 40 MG 40 MG traMADol traMADol No traMADol HCl 50 MG HCl 50 MG HCl 50 MG azaTHIOprin azaTHIOprin No azaTHIOpri e 50 MG e 50 MG ne 50 MG Glimepiride Glimepiride No 1{table QD Glimepirid 2 MG 2 MG t_with_ e [address]_or_t he_firs t_main_ meal_of _the_da y} NovoLIN NovoLIN No TID NovoLIN 70/30 70/30 70/30 (70-30) 100 (70-30) 100 (70-30) UNIT/ML UNIT/ML 100 UNIT/ML Promethazin Promethazin No Promethazi e HCl 12.5 e HCl 12.5 ne HCl MG MG 12.5 MG Ursodiol Ursodiol No Ursodiol 300 MG 300 MG 300 MG Meclizine Meclizine No 1{table QD Meclizine HCl 25 MG HCl 25 MG t_as_ne HCl 25 MG eded} Promethazin Promethazin No 1{table Promethazi e HCl 12.5 e HCl 12.5 t_as_ne ne HCl MG MG eded} 12.5 MG Lisinopril Lisinopril No 1{table QD Lisinopril 5 MG 5 MG t} 5 MG Tylenol 500 Tylenol 500 No 2{table Tylenol mg mg ts} 500 mg Atorvastati Atorvastati No 1{table Atorvastat n Calcium n Calcium t} in Calcium 40 MG 40 MG 40 MG Aspirin 325 Aspirin 325 No 1{table QD Aspirin MG MG t} 325 MG Citalopram Citalopram No 1{table QD Citalopram Hydrobromid Hydrobromid t} Hydrobromi e 40MG e 40MG de 40MG Glimepiride Glimepiride No Glimepirid 2 MG 2 MG e 2 MG Gabapentin Gabapentin No 1{capsu BID Gabapentin 300 MG 300 MG le} 300 MG predniSONE predniSONE No predniSONE 5 MG 5 MG 5 MG Citalopram Citalopram No Citalopram Hydrobromid Hydrobromid Hydrobromi e 40 MG e 40 MG de 40 MG traMADol traMADol No traMADol HCl 50 MG HCl 50 MG HCl 50 MG Atorvastati Atorvastati No Atorvastat n Calcium n Calcium in Calcium 40 MG 40 MG 40 MG Promethazin Promethazin No Promethazi e HCl 12.5 e HCl 12.5 ne HCl MG MG 12.5 MG NovoLIN NovoLIN No TID NovoLIN 70/30 70/30 70/30 (70-30) 100 (70-30) 100 (70-30) UNIT/ML UNIT/ML 100 UNIT/ML Ursodiol Ursodiol No Ursodiol 300 MG 300 MG 300 MG Meclizine Meclizine No 1{table QD Meclizine HCl 25 MG HCl 25 MG t_as_ne HCl 25 MG eded} Citalopram Citalopram No Citalopram Hydrobromid Hydrobromid Hydrobromi e 40 MG e 40 MG de 40 MG Tylenol 500 Tylenol 500 No 2{table Tylenol mg mg ts} 500 mg Glimepiride Glimepiride No Glimepirid 2 MG 2 MG e 2 MG Atorvastati Atorvastati No 1{table Atorvastat n Calcium n Calcium t} in Calcium 40 MG 40 MG 40 MG Lisinopril Lisinopril No 1{table QD Lisinopril 5 MG 5 MG t} 5 MG azaTHIOprin azaTHIOprin No azaTHIOpri e 50 MG e 50 MG ne 50 MG Omeprazole Omeprazole No Omeprazole 40 MG 40 MG 40 MG Gabapentin Gabapentin No 1{capsu BID Gabapentin 300 MG 300 MG le} 300 MG predniSONE predniSONE No predniSONE 5 MG 5 MG 5 MG Aspirin 325 Aspirin 325 No 1{table QD Aspirin MG MG t} 325 MG traMADol traMADol No traMADol HCl 50 MG HCl 50 MG HCl 50 MG Promethazin Promethazin No 1{table Promethazi e HCl 12.5 e HCl 12.5 t_as_ne ne HCl MG MG eded} 12.5 MG Lisinopril Lisinopril No 1{table QD Lisinopril 5 MG 5 MG t} 5 MG Ursodiol Ursodiol No Ursodiol 300 MG 300 MG 300 MG Meclizine Meclizine No 1{table QD Meclizine HCl 25 MG HCl 25 MG t_as_ne HCl 25 MG eded} Aspirin 325 Aspirin 325 No 1{table QD Aspirin MG MG t} 325 MG Omeprazole Omeprazole No Omeprazole 40 MG 40 MG 40 MG Citalopram Citalopram No 1{table QD Citalopram Hydrobromid Hydrobromid t} Hydrobromi e 40MG e 40MG de 40MG Glimepiride Glimepiride No Glimepirid 2 MG 2 MG e 2 MG Tylenol 500 Tylenol 500 No 2{table Tylenol mg mg ts} 500 mg Glimepiride Glimepiride No 1{table QD Glimepirid 2 MG 2 MG t_with_ e [address]_or_t he_firs t_main_ meal_of _the_da y} azaTHIOprin azaTHIOprin No azaTHIOpri e 50 MG e 50 MG ne 50 MG Promethazin Promethazin No Promethazi e HCl 12.5 e HCl 12.5 ne HCl MG MG 12.5 MG Gabapentin Gabapentin No 1{capsu BID Gabapentin 300 MG 300 MG le} 300 MG Citalopram Citalopram No Citalopram Hydrobromid Hydrobromid Hydrobromi e 40 MG e 40 MG de 40 MG predniSONE predniSONE No predniSONE 5 MG 5 MG 5 MG Atorvastati Atorvastati No 1{table Atorvastat n Calcium n Calcium t} in Calcium 40 MG 40 MG 40 MG NovoLIN NovoLIN No TID NovoLIN 70/30 70/30 70/30 (70-30) 100 (70-30) 100 (70-30) UNIT/ML UNIT/ML 100 UNIT/ML Atorvastati Atorvastati No Atorvastat n Calcium n Calcium in Calcium 40 MG 40 MG 40 MG Meclizine Meclizine No 1{table QD Meclizine HCl 25 MG HCl 25 MG t_as_ne HCl 25 MG eded} traMADol traMADol No traMADol HCl 50 MG HCl 50 MG HCl 50 MG Omeprazole Omeprazole No Omeprazole 40 MG 40 MG 40 MG azaTHIOprin azaTHIOprin No azaTHIOpri e 50 MG e 50 MG ne 50 MG Lisinopril Lisinopril No 1{table QD Lisinopril 5 MG 5 MG t} 5 MG Aspirin 325 Aspirin 325 No 1{table QD Aspirin MG MG t} 325 MG Citalopram Citalopram No Citalopram Hydrobromid Hydrobromid Hydrobromi e 40 MG e 40 MG de 40 MG Glimepiride Glimepiride No Glimepirid 2 MG 2 MG e 2 MG Tylenol 500 Tylenol 500 No 2{table Tylenol mg mg ts} 500 mg predniSONE predniSONE No predniSONE 5 MG 5 MG 5 MG Glimepiride Glimepiride No 1{table QD Glimepirid 2 MG 2 MG t_with_ e [address]_or_t he_firs t_main_ meal_of _the_da y} Promethazin Promethazin No Promethazi e HCl 12.5 e HCl 12.5 ne HCl MG MG 12.5 MG Atorvastati Atorvastati No Atorvastat n Calcium n Calcium in Calcium 40 MG 40 MG 40 MG Ursodiol Ursodiol No Ursodiol 300 MG 300 MG 300 MG Gabapentin Gabapentin No 1{capsu BID Gabapentin 300 MG 300 MG le} 300 MG Atorvastati Atorvastati No 1{table Atorvastat n Calcium n Calcium t} in Calcium 40 MG 40 MG 40 MG NovoLIN NovoLIN No TID NovoLIN 70/30 70/30 70/30 (70-30) 100 (70-30) 100 (70-30) UNIT/ML UNIT/ML 100 UNIT/ML Promethazin Promethazin No 1{table Promethazi e HCl 12.5 e HCl 12.5 t_as_ne ne HCl MG MG eded} 12.5 MG Omeprazole Omeprazole No Omeprazole 40 MG 40 MG 40 MG Lisinopril Lisinopril No 1{table QD Lisinopril 5 MG 5 MG t} 5 MG Citalopram Citalopram No QD Citalopram Hydrobromid Hydrobromid Hydrobromi e 40 MG e 40 MG de 40 MG Glimepiride Glimepiride No 1{table QD Glimepirid 2 MG 2 MG t_with_ e [address]_or_t he_firs t_main_ meal_of _the_da y} Promethazin Promethazin No 1{table Promethazi e HCl 12.5 e HCl 12.5 t_as_ne ne HCl MG MG eded} 12.5 MG Promethazin Promethazin No Promethazi e HCl 12.5 e HCl 12.5 ne HCl MG MG 12.5 MG Glimepiride Glimepiride No Glimepirid 2 MG 2 MG e 2 MG Aspirin 325 Aspirin 325 No 1{table QD Aspirin MG MG t} 325 MG Tylenol 500 Tylenol 500 No 2{table Tylenol mg mg ts} 500 mg Gabapentin Gabapentin No 1{capsu BID Gabapentin 300 MG 300 MG le} 300 MG predniSONE predniSONE No predniSONE 5 MG 5 MG 5 MG NovoLIN NovoLIN No TID NovoLIN 70/30 70/30 70/30 (70-30) 100 (70-30) 100 (70-30) UNIT/ML UNIT/ML 100 UNIT/ML traMADol traMADol No traMADol HCl 50 MG HCl 50 MG HCl 50 MG azaTHIOprin azaTHIOprin No azaTHIOpri e 50 MG e 50 MG ne 50 MG Atorvastati Atorvastati No Atorvastat n Calcium n Calcium in Calcium 40 MG 40 MG 40 MG Atorvastati Atorvastati No 1{table Atorvastat n Calcium n Calcium t} in Calcium 40 MG 40 MG 40 MG Ursodiol Ursodiol No Ursodiol 300 MG 300 MG 300 MG Meclizine Meclizine No 1{table QD Meclizine HCl 25 MG HCl 25 MG t_as_ne HCl 25 MG eded} NovoLIN NovoLIN No TID NovoLIN 70/30 70/30 70/30 (70-30) 100 (70-30) 100 (70-30) UNIT/ML UNIT/ML 100 UNIT/ML Lisinopril Lisinopril No 1{table QD Lisinopril 5 MG 5 MG t} 5 MG Atorvastati Atorvastati No 1{table Atorvastat n Calcium n Calcium t} in Calcium 40 MG 40 MG 40 MG Tylenol 500 Tylenol 500 No 2{table Tylenol mg mg ts} 500 mg Omeprazole Omeprazole No Omeprazole 40 MG 40 MG 40 MG Aspirin 325 Aspirin 325 No 1{table QD Aspirin MG MG t} 325 MG Meclizine Meclizine No 1{table QD Meclizine HCl 25 MG HCl 25 MG t_as_ne HCl 25 MG eded} traMADol traMADol No traMADol HCl 50 MG HCl 50 MG HCl 50 MG predniSONE predniSONE No predniSONE 5 MG 5 MG 5 MG Citalopram Citalopram No QD Citalopram Hydrobromid Hydrobromid Hydrobromi e 40 MG e 40 MG de 40 MG Glimepiride Glimepiride No 1{table QD Glimepirid 2 MG 2 MG t_with_ e [address]_or_t he_firs t_main_ meal_of _the_da y} Ursodiol Ursodiol No Ursodiol 300 MG 300 MG 300 MG Glimepiride Glimepiride No Glimepirid 2 MG 2 MG e 2 MG Atorvastati Atorvastati No Atorvastat n Calcium n Calcium in Calcium 40 MG 40 MG 40 MG Gabapentin Gabapentin No 1{capsu BID Gabapentin 300 MG 300 MG le} 300 MG Promethazin Promethazin No 1{table Promethazi e HCl 12.5 e HCl 12.5 t_as_ne ne HCl MG MG eded} 12.5 MG azaTHIOprin azaTHIOprin No azaTHIOpri e 50 MG e 50 MG ne 50 MG NovoLIN NovoLIN No TID NovoLIN 70/30 70/30 70/30 (70-30) 100 (70-30) 100 (70-30) UNIT/ML UNIT/ML 100 UNIT/ML Lisinopril Lisinopril No 1{table QD Lisinopril 5 MG 5 MG t} 5 MG Atorvastati Atorvastati No 1{table Atorvastat n Calcium n Calcium t} in Calcium 40 MG 40 MG 40 MG Tylenol 500 Tylenol 500 No 2{table Tylenol mg mg ts} 500 mg Omeprazole Omeprazole No Omeprazole 40 MG 40 MG 40 MG Aspirin 325 Aspirin 325 No 1{table QD Aspirin MG MG t} 325 MG Meclizine Meclizine No 1{table QD Meclizine HCl 25 MG HCl 25 MG t_as_ne HCl 25 MG eded} traMADol traMADol No traMADol HCl 50 MG HCl 50 MG HCl 50 MG predniSONE predniSONE No predniSONE 5 MG 5 MG 5 MG Citalopram Citalopram No QD Citalopram Hydrobromid Hydrobromid Hydrobromi e 40 MG e 40 MG de 40 MG Glimepiride Glimepiride No 1{table QD Glimepirid 2 MG 2 MG t_with_ e [address]_or_t he_firs t_main_ meal_of _the_da y} Ursodiol Ursodiol No Ursodiol 300 MG 300 MG 300 MG Glimepiride Glimepiride No Glimepirid 2 MG 2 MG e 2 MG Atorvastati Atorvastati No Atorvastat n Calcium n Calcium in Calcium 40 MG 40 MG 40 MG Gabapentin Gabapentin No 1{capsu BID Gabapentin 300 MG 300 MG le} 300 MG Promethazin Promethazin No 1{table Promethazi e HCl 12.5 e HCl 12.5 t_as_ne ne HCl MG MG eded} 12.5 MG azaTHIOprin azaTHIOprin No azaTHIOpri e 50 MG e 50 MG ne 50 MG NovoLIN NovoLIN No TID NovoLIN 70/30 70/30 70/30 (70-30) 100 (70-30) 100 (70-30) UNIT/ML UNIT/ML 100 UNIT/ML Lisinopril Lisinopril No 1{table QD Lisinopril 5 MG 5 MG t} 5 MG Atorvastati Atorvastati No 1{table Atorvastat n Calcium n Calcium t} in Calcium 40 MG 40 MG 40 MG Tylenol 500 Tylenol 500 No 2{table Tylenol mg mg ts} 500 mg Omeprazole Omeprazole No Omeprazole 40 MG 40 MG 40 MG Aspirin 325 Aspirin 325 No 1{table QD Aspirin MG MG t} 325 MG Meclizine Meclizine No 1{table QD Meclizine HCl 25 MG HCl 25 MG t_as_ne HCl 25 MG eded} traMADol traMADol No traMADol HCl 50 MG HCl 50 MG HCl 50 MG predniSONE predniSONE No predniSONE 5 MG 5 MG 5 MG Citalopram Citalopram No QD Citalopram Hydrobromid Hydrobromid Hydrobromi e 40 MG e 40 MG de 40 MG Glimepiride Glimepiride No 1{table QD Glimepirid 2 MG 2 MG t_with_ e [address]_or_t he_firs t_main_ meal_of _the_da y} Ursodiol Ursodiol No Ursodiol 300 MG 300 MG 300 MG Glimepiride Glimepiride No Glimepirid 2 MG 2 MG e 2 MG Atorvastati Atorvastati No Atorvastat n Calcium n Calcium in Calcium 40 MG 40 MG 40 MG Gabapentin Gabapentin No 1{capsu BID Gabapentin 300 MG 300 MG le} 300 MG Promethazin Promethazin No 1{table Promethazi e HCl 12.5 e HCl 12.5 t_as_ne ne HCl MG MG eded} 12.5 MG azaTHIOprin azaTHIOprin No azaTHIOpri e 50 MG e 50 MG ne 50 MG NovoLIN NovoLIN No TID NovoLIN 70/30 70/30 70/30 (70-30) 100 (70-30) 100 (70-30) UNIT/ML UNIT/ML 100 UNIT/ML Lisinopril Lisinopril No 1{table QD Lisinopril 5 MG 5 MG t} 5 MG Citalopram Citalopram No QD Citalopram Hydrobromid Hydrobromid Hydrobromi e 40 MG e 40 MG de 40 MG Tramadol Tramadol No Tramadol HCl 50 MG HCl 50 MG HCl 50 MG Tylenol 500 Tylenol 500 No 2{table Tylenol mg mg ts} 500 mg Glimepiride Glimepiride No 1{table QD Glimepirid 2 MG 2 MG t_with_ e [address]_or_t he_firs t_main_ meal_of _the_da y} Meclizine Meclizine No 1{table QD Meclizine HCl 25 MG HCl 25 MG t_as_ne HCl 25 MG eded} Omeprazole Omeprazole No Omeprazole 40 MG 40 MG 40 MG Aspirin 325 Aspirin 325 No 1{table QD Aspirin MG MG t} 325 MG predniSONE predniSONE No predniSONE 5 MG 5 MG 5 MG Promethazin Promethazin No 1{table Promethazi e HCl 12.5 e HCl 12.5 t_as_ne ne HCl MG MG eded} 12.5 MG Ursodiol Ursodiol No Ursodiol 300 MG 300 MG 300 MG Atorvastati Atorvastati No 1{table Atorvastat n Calcium n Calcium t} in Calcium 40 MG 40 MG 40 MG Promethazin Promethazin No Promethazi e HCl 12.5 e HCl 12.5 ne HCl MG MG 12.5 MG Atorvastati Atorvastati No Atorvastat n Calcium n Calcium in Calcium 40 MG 40 MG 40 MG Gabapentin Gabapentin No 1{capsu BID Gabapentin 300 MG 300 MG le} 300 MG Glimepiride Glimepiride No Glimepirid 2 MG 2 MG e 2 MG azaTHIOprin azaTHIOprin No azaTHIOpri e 50 MG e 50 MG ne 50 MG NovoLIN NovoLIN No TID NovoLIN 70/30 70/30 70/30 (70-30) 100 (70-30) 100 (70-30) UNIT/ML UNIT/ML 100 UNIT/ML Lisinopril Lisinopril No 1{table QD Lisinopril 5 MG 5 MG t} 5 MG Citalopram Citalopram No QD Citalopram Hydrobromid Hydrobromid Hydrobromi e 40 MG e 40 MG de 40 MG Tylenol 500 Tylenol 500 No 2{table Tylenol mg mg ts} 500 mg Glimepiride Glimepiride No 1{table QD Glimepirid 2 MG 2 MG t_with_ e [address]_or_t he_firs t_main_ meal_of _the_da y} Meclizine Meclizine No 1{table QD Meclizine HCl 25 MG HCl 25 MG t_as_ne HCl 25 MG eded} Omeprazole Omeprazole No Omeprazole 40 MG 40 MG 40 MG Aspirin 325 Aspirin 325 No 1{table QD Aspirin MG MG t} 325 MG predniSONE predniSONE No predniSONE 5 MG 5 MG 5 MG Promethazin Promethazin No 1{table Promethazi e HCl 12.5 e HCl 12.5 t_as_ne ne HCl MG MG eded} 12.5 MG Ursodiol Ursodiol No Ursodiol 300 MG 300 MG 300 MG Promethazin Promethazin No 1{table Promethazi e HCl 12.5 e HCl 12.5 t_as_ne ne HCl MG MG eded} 12.5 MG Atorvastati Atorvastati No 1{table Atorvastat n Calcium n Calcium t} in Calcium 40 MG 40 MG 40 MG Atorvastati Atorvastati No Atorvastat n Calcium n Calcium in Calcium 40 MG 40 MG 40 MG Gabapentin Gabapentin No 1{capsu BID Gabapentin 300 MG 300 MG le} 300 MG Glimepiride Glimepiride No Glimepirid 2 MG 2 MG e 2 MG azaTHIOprin azaTHIOprin No azaTHIOpri e 50 MG e 50 MG ne 50 MG Lisinopril Lisinopril No 1{table QD Lisinopril 5 MG 5 MG t} 5 MG Atorvastati Atorvastati No 1{table Atorvastat n Calcium n Calcium t} in Calcium 40 MG 40 MG 40 MG Tylenol 500 Tylenol 500 No 2{table Tylenol mg mg ts} 500 mg Meclizine Meclizine No 1{table QD Meclizine HCl 25 MG HCl 25 MG t_as_ne HCl 25 MG eded} Promethazin Promethazin No 1{table Promethazi e HCl 12.5 e HCl 12.5 t_as_ne ne HCl MG MG eded} 12.5 MG Amitriptyli Amitriptyli No 1{table QD Amitriptyl ne HCl 25 ne HCl 25 t_at_be ine HCl 25 MG MG dtime} MG Omeprazole Omeprazole No Omeprazole 40 MG 40 MG 40 MG Ursodiol Ursodiol No Ursodiol 300 MG 300 MG 300 MG NovoLIN NovoLIN No TID NovoLIN 70/30 70/30 70/30 (70-30) 100 (70-30) 100 (70-30) UNIT/ML UNIT/ML 100 UNIT/ML Gabapentin Gabapentin No 1{capsu BID Gabapentin 300 MG 300 MG le} 300 MG Promethazin Promethazin No 1{table Promethazi e HCl 12.5 e HCl 12.5 t_as_ne ne HCl MG MG eded} 12.5 MG Citalopram Citalopram No QD Citalopram Hydrobromid Hydrobromid Hydrobromi e 40 MG e 40 MG de 40 MG Omeprazole Omeprazole No QD Omeprazole 40MG 40MG 40MG Citalopram Citalopram No 1{table QD Citalopram Hydrobromid Hydrobromid t} Hydrobromi e 40MG e 40MG de 40MG Atorvastati Atorvastati No 1{table Atorvastat n Calcium n Calcium t} in Calcium 40 MG 40 MG 40 MG Aspirin 325 Aspirin 325 No 1{table QD Aspirin MG MG t} 325 MG Meclizine Meclizine No 1{table QD Meclizine HCl 25 MG HCl 25 MG t_as_ne HCl 25 MG eded} Novolin Novolin No TID Novolin 70/30 70/30 70/30 (70-30) 100 (70-30) 100 (70-30) UNIT/ML UNIT/ML 100 UNIT/ML Citalopram Citalopram No 1{table QD Citalopram Hydrobromid Hydrobromid t} Hydrobromi e 40MG e 40MG de 40MG Citalopram Citalopram Yes [place] 1 tablet Common Hydrobromid Hydrobromid [facility] Tramadol Tramadol No Tramadol HCl 50 MG HCl 50 MG HCl 50 MG Promethazin Promethazin No Promethazi e HCl 12.5 e HCl 12.5 ne HCl MG MG 12.5 MG Promethazin Promethazin No 1{table Promethazi e HCl 12.5 e HCl 12.5 t_as_ne ne HCl MG MG eded} 12.5 MG Lisinopril Lisinopril No 1{table QD Lisinopril 5 MG 5 MG t} 5 MG Atorvastati Atorvastati No 1{table Atorvastat n Calcium n Calcium t} in Calcium 40 MG 40 MG 40 MG Tylenol 500 Tylenol 500 No 2{table Tylenol mg mg ts} 500 mg Omeprazole Omeprazole No QD Omeprazole 40MG 40MG 40MG Meclizine Meclizine No 1{table QD Meclizine HCl 25 MG HCl 25 MG t_as_ne HCl 25 MG eded} Novolin Novolin No TID Novolin 70/30 70/30 70/30 (70-30) 100 (70-30) 100 (70-30) UNIT/ML UNIT/ML 100 UNIT/ML Citalopram Citalopram No 1{table QD Citalopram Hydrobromid Hydrobromid t} Hydrobromi e 40MG e 40MG de 40MG Citalopram Citalopram No 1{table QD Citalopram Hydrobromid Hydrobromid t} Hydrobromi e 40MG e 40MG de 40MG Lisinopril Lisinopril No 1{table QD Lisinopril 5 MG 5 MG t} 5 MG Tylenol 500 Tylenol 500 No 2{table Tylenol mg mg ts} 500 mg Meclizine Meclizine No 1{table QD Meclizine HCl 25 MG HCl 25 MG t_as_ne HCl 25 MG eded} Tramadol Tramadol No Tramadol HCl 50 MG HCl 50 MG HCl 50 MG Promethazin Promethazin No Promethazi e HCl 12.5 e HCl 12.5 ne HCl MG MG 12.5 MG Omeprazole Omeprazole No QD Omeprazole 40MG 40MG 40MG Atorvastati Atorvastati No 1{table Atorvastat n Calcium n Calcium t} in Calcium 40 MG 40 MG 40 MG Promethazin Promethazin No 1{table Promethazi e HCl 12.5 e HCl 12.5 t_as_ne ne HCl MG MG eded} 12.5 MG Novolin Novolin No TID Novolin 70/30 70/30 70/30 (70-30) 100 (70-30) 100 (70-30) UNIT/ML UNIT/ML 100 UNIT/ML Citalopram Citalopram No 1{table QD Citalopram Hydrobromid Hydrobromid t} Hydrobromi e 40MG e 40MG de 40MG Novolin Novolin No TID Novolin 70/30 70/30 70/30 (70-30) 100 (70-30) 100 (70-30) UNIT/ML UNIT/ML 100 UNIT/ML Lisinopril Lisinopril No 1{table QD Lisinopril 5 MG 5 MG t} 5 MG Atorvastati Atorvastati No 1{table Atorvastat n Calcium n Calcium t} in Calcium 40 MG 40 MG 40 MG Omeprazole Omeprazole No QD Omeprazole 40MG 40MG 40MG Promethazin Promethazin No 1{table Promethazi e HCl 12.5 e HCl 12.5 t_as_ne ne HCl MG MG eded} 12.5 MG Tramadol Tramadol No Tramadol HCl 50 MG HCl 50 MG HCl 50 MG Meclizine Meclizine No 1{table QD Meclizine HCl 25 MG HCl 25 MG t_as_ne HCl 25 MG eded} Tylenol 500 Tylenol 500 No 2{table Tylenol mg mg ts} 500 mg Novolin Novolin No TID Novolin 70/30 70/30 70/30 (70-30) 100 (70-30) 100 (70-30) UNIT/ML UNIT/ML 100 UNIT/ML Citalopram Citalopram No 1{table QD Citalopram Hydrobromid Hydrobromid t} Hydrobromi e 40MG e 40MG de 40MG Lisinopril Lisinopril No 1{table QD Lisinopril 5 MG 5 MG t} 5 MG Promethazin Promethazin No 1{table Promethazi e HCl 12.5 e HCl 12.5 t_as_ne ne HCl MG MG eded} 12.5 MG Citalopram Citalopram No 1{table QD Citalopram Hydrobromid Hydrobromid t} Hydrobromi e 40MG e 40MG de 40MG Tylenol 500 Tylenol 500 No 2{table Tylenol mg mg ts} 500 mg Omeprazole Omeprazole No QD Omeprazole 40MG 40MG 40MG Meclizine Meclizine No 1{table QD Meclizine HCl 25 MG HCl 25 MG t_as_ne HCl 25 MG eded} Tramadol Tramadol No Tramadol HCl 50 MG HCl 50 MG HCl 50 MG Promethazin Promethazin No 1{table Promethazi e HCl 12.5 e HCl 12.5 t_as_ne ne HCl MG MG eded} 12.5 MG Atorvastati Atorvastati No 1{table Atorvastat n Calcium n Calcium t} in Calcium 40 MG 40 MG 40 MG Novolin Novolin No TID Novolin 70/30 70/30 70/30 (70-30) 100 (70-30) 100 (70-30) UNIT/ML UNIT/ML 100 UNIT/ML Citalopram Citalopram No 1{table QD Citalopram Hydrobromid Hydrobromid t} Hydrobromi e 40MG e 40MG de 40MG Lisinopril Lisinopril No 1{table QD Lisinopril 5 MG 5 MG t} 5 MG Promethazin Promethazin No 1{table Promethazi e HCl 12.5 e HCl 12.5 t_as_ne ne HCl MG MG eded} 12.5 MG Citalopram Citalopram No 1{table QD Citalopram Hydrobromid Hydrobromid t} Hydrobromi e 40MG e 40MG de 40MG Tylenol 500 Tylenol 500 No 2{table Tylenol mg mg ts} 500 mg Omeprazole Omeprazole No QD Omeprazole 40MG 40MG 40MG Meclizine Meclizine No 1{table QD Meclizine HCl 25 MG HCl 25 MG t_as_ne HCl 25 MG eded} Tramadol Tramadol No Tramadol HCl 50 MG HCl 50 MG HCl 50 MG Promethazin Promethazin No 1{table Promethazi e HCl 12.5 e HCl 12.5 t_as_ne ne HCl MG MG eded} 12.5 MG Atorvastati Atorvastati No 1{table Atorvastat n Calcium n Calcium t} in Calcium 40 MG 40 MG 40 MG Novolin Novolin No TID Novolin 70/30 70/30 70/30 (70-30) 100 (70-30) 100 (70-30) UNIT/ML UNIT/ML 100 UNIT/ML Citalopram Citalopram No 1{table QD Citalopram Hydrobromid Hydrobromid t} Hydrobromi e 40MG e 40MG de 40MG Lisinopril Lisinopril No 1{table QD Lisinopril 5 MG 5 MG t} 5 MG Promethazin Promethazin No 1{table Promethazi e HCl 12.5 e HCl 12.5 t_as_ne ne HCl MG MG eded} 12.5 MG Citalopram Citalopram No 1{table QD Citalopram Hydrobromid Hydrobromid t} Hydrobromi e 40MG e 40MG de 40MG Tylenol 500 Tylenol 500 No 2{table Tylenol mg mg ts} 500 mg Omeprazole Omeprazole No QD Omeprazole 40MG 40MG 40MG Meclizine Meclizine No 1{table QD Meclizine HCl 25 MG HCl 25 MG t_as_ne HCl 25 MG eded} Tramadol Tramadol No Tramadol HCl 50 MG HCl 50 MG HCl 50 MG Promethazin Promethazin No 1{table Promethazi e HCl 12.5 e HCl 12.5 t_as_ne ne HCl MG MG eded} 12.5 MG Atorvastati Atorvastati No 1{table Atorvastat n Calcium n Calcium t} in Calcium 40 MG 40 MG 40 MG Novolin Novolin No TID Novolin 70/30 70/30 70/30 (70-30) 100 (70-30) 100 (70-30) UNIT/ML UNIT/ML 100 UNIT/ML Citalopram Citalopram No 1{table QD Citalopram Hydrobromid Hydrobromid t} Hydrobromi e 40MG e 40MG de 40MG Lisinopril Lisinopril No 1{table QD Lisinopril 5 MG 5 MG t} 5 MG Promethazin Promethazin No 1{table Promethazi e HCl 12.5 e HCl 12.5 t_as_ne ne HCl MG MG eded} 12.5 MG Citalopram Citalopram No 1{table QD Citalopram Hydrobromid Hydrobromid t} Hydrobromi e 40MG e 40MG de 40MG Tylenol 500 Tylenol 500 No 2{table Tylenol mg mg ts} 500 mg Omeprazole Omeprazole No QD Omeprazole 40MG 40MG 40MG Meclizine Meclizine No 1{table QD Meclizine HCl 25 MG HCl 25 MG t_as_ne HCl 25 MG eded} Tramadol Tramadol No Tramadol HCl 50 MG HCl 50 MG HCl 50 MG Promethazin Promethazin No 1{table Promethazi e HCl 12.5 e HCl 12.5 t_as_ne ne HCl MG MG eded} 12.5 MG Atorvastati Atorvastati No 1{table Atorvastat n Calcium n Calcium t} in Calcium 40 MG 40 MG 40 MG Novolin Novolin No TID Novolin 70/30 70/30 70/30 (70-30) 100 (70-30) 100 (70-30) UNIT/ML UNIT/ML 100 UNIT/ML Citalopram Citalopram No 1{table QD Citalopram Hydrobromid Hydrobromid t} Hydrobromi e 40MG e 40MG de 40MG Lisinopril Lisinopril No 1{table QD Lisinopril 5 MG 5 MG t} 5 MG Promethazin Promethazin No 1{table Promethazi e HCl 12.5 e HCl 12.5 t_as_ne ne HCl MG MG eded} 12.5 MG Citalopram Citalopram No 1{table QD Citalopram Hydrobromid Hydrobromid t} Hydrobromi e 40MG e 40MG de 40MG Tylenol 500 Tylenol 500 No 2{table Tylenol mg mg ts} 500 mg Omeprazole Omeprazole No QD Omeprazole 40MG 40MG 40MG Meclizine Meclizine No 1{table QD Meclizine HCl 25 MG HCl 25 MG t_as_ne HCl 25 MG eded} Tramadol Tramadol No Tramadol HCl 50 MG HCl 50 MG HCl 50 MG Promethazin Promethazin No 1{table Promethazi e HCl 12.5 e HCl 12.5 t_as_ne ne HCl MG MG eded} 12.5 MG Atorvastati Atorvastati No 1{table Atorvastat n Calcium n Calcium t} in Calcium 40 MG 40 MG 40 MG Novolin Novolin No TID Novolin 70/30 70/30 70/30 (70-30) 100 (70-30) 100 (70-30) UNIT/ML UNIT/ML 100 UNIT/ML Citalopram Citalopram No 1{table QD Citalopram Hydrobromid Hydrobromid t} Hydrobromi e 40MG e 40MG de 40MG Lisinopril Lisinopril No 1{table QD Lisinopril 5 MG 5 MG t} 5 MG Promethazin Promethazin No 1{table Promethazi e HCl 12.5 e HCl 12.5 t_as_ne ne HCl MG MG eded} 12.5 MG Citalopram Citalopram No 1{table QD Citalopram Hydrobromid Hydrobromid t} Hydrobromi e 40MG e 40MG de 40MG Tylenol 500 Tylenol 500 No 2{table Tylenol mg mg ts} 500 mg Omeprazole Omeprazole No QD Omeprazole 40MG 40MG 40MG Meclizine Meclizine No 1{table QD Meclizine HCl 25 MG HCl 25 MG t_as_ne HCl 25 MG eded} Tramadol Tramadol No Tramadol HCl 50 MG HCl 50 MG HCl 50 MG Promethazin Promethazin No 1{table Promethazi e HCl 12.5 e HCl 12.5 t_as_ne ne HCl MG MG eded} 12.5 MG Atorvastati Atorvastati No 1{table Atorvastat n Calcium n Calcium t} in Calcium 40 MG 40 MG 40 MG Promethazin Promethazin No 1{table Promethazi e HCl 12.5 e HCl 12.5 t_as_ne ne HCl MG MG eded} 12.5 MG Promethazin Promethazin No 1{table Promethazi e HCl 12.5 e HCl 12.5 t_as_ne ne HCl MG MG eded} 12.5 MG Lisinopril Lisinopril No 1{table QD Lisinopril 5 MG 5 MG t} 5 MG Atorvastati Atorvastati No 1{table Atorvastat n Calcium n Calcium t} in Calcium 40 MG 40 MG 40 MG Citalopram Citalopram No Citalopram Hydrobromid Hydrobromid Hydrobromi e 40 MG e 40 MG de 40 MG Citalopram Citalopram No 1{table QD Citalopram Hydrobromid Hydrobromid t} Hydrobromi e 40MG e 40MG de 40MG Tylenol 500 Tylenol 500 No 2{table Tylenol mg mg ts} 500 mg Tramadol Tramadol No Tramadol HCl 50 MG HCl 50 MG HCl 50 MG Omeprazole Omeprazole No QD Omeprazole 40MG 40MG 40MG Novolin Novolin No TID Novolin 70/30 70/30 70/30 (70-30) 100 (70-30) 100 (70-30) UNIT/ML UNIT/ML 100 UNIT/ML Meclizine Meclizine No 1{table QD Meclizine HCl 25 MG HCl 25 MG t_as_ne HCl 25 MG eded} Promethazin Promethazin No 1{table Promethazi e HCl 12.5 e HCl 12.5 t_as_ne ne HCl MG MG eded} 12.5 MG Promethazin Promethazin No 1{table Promethazi e HCl 12.5 e HCl 12.5 t_as_ne ne HCl MG MG eded} 12.5 MG Lisinopril Lisinopril No 1{table QD Lisinopril 5 MG 5 MG t} 5 MG Atorvastati Atorvastati No 1{table Atorvastat n Calcium n Calcium t} in Calcium 40 MG 40 MG 40 MG Citalopram Citalopram No Citalopram Hydrobromid Hydrobromid Hydrobromi e 40 MG e 40 MG de 40 MG Citalopram Citalopram No 1{table QD Citalopram Hydrobromid Hydrobromid t} Hydrobromi e 40MG e 40MG de 40MG Tylenol 500 Tylenol 500 No 2{table Tylenol mg mg ts} 500 mg Tramadol Tramadol No Tramadol HCl 50 MG HCl 50 MG HCl 50 MG Omeprazole Omeprazole No QD Omeprazole 40MG 40MG 40MG Novolin Novolin No TID Novolin 70/30 70/30 70/30 (70-30) 100 (70-30) 100 (70-30) UNIT/ML UNIT/ML 100 UNIT/ML Meclizine Meclizine No 1{table QD Meclizine HCl 25 MG HCl 25 MG t_as_ne HCl 25 MG eded} NovoLIN NovoLIN No TID NovoLIN 70/30 70/30 70/30 (70-30) 100 (70-30) 100 (70-30) UNIT/ML UNIT/ML 100 UNIT/ML Lisinopril Lisinopril No 1{table QD Lisinopril 5 MG 5 MG t} 5 MG Citalopram Citalopram No Citalopram Hydrobromid Hydrobromid Hydrobromi e 40MG e 40MG de 40MG Omeprazole Omeprazole No Omeprazole 40MG 40MG 40MG Atorvastati Atorvastati No 1{table Atorvastat n Calcium n Calcium t} in Calcium 40 MG 40 MG 40 MG Meclizine Meclizine No 1{table QD Meclizine HCl 25 MG HCl 25 MG t_as_ne HCl 25 MG eded} traMADol traMADol No traMADol HCl 50 MG HCl 50 MG HCl 50 MG Tylenol 500 Tylenol 500 No 2{table Tylenol mg mg ts} 500 mg Promethazin Promethazin No 1{table Promethazi e HCl 12.5 e HCl 12.5 t_as_ne ne HCl MG MG eded} 12.5 MG Omeprazole Omeprazole No Omeprazole 40MG 40MG 40MG azaTHIOprin azaTHIOprin No azaTHIOpri e 50 MG e 50 MG ne 50 MG traMADol traMADol No traMADol HCl 50 MG HCl 50 MG HCl 50 MG Ursodiol Ursodiol No Ursodiol 300 MG 300 MG 300 MG Atorvastati Atorvastati No 1{table Atorvastat n Calcium n Calcium t} in Calcium 40 MG 40 MG 40 MG Meclizine Meclizine No 1{table QD Meclizine HCl 25 MG HCl 25 MG t_as_ne HCl 25 MG eded} Tylenol 500 Tylenol 500 No 2{table Tylenol mg mg ts} 500 mg Promethazin Promethazin No 1{table Promethazi e HCl 12.5 e HCl 12.5 t_as_ne ne HCl MG MG eded} 12.5 MG Lisinopril Lisinopril No 1{table QD Lisinopril 5 MG 5 MG t} 5 MG NovoLIN NovoLIN No TID NovoLIN 70/30 70/30 70/30 (70-30) 100 (70-30) 100 (70-30) UNIT/ML UNIT/ML 100 UNIT/ML Citalopram Citalopram No 1{table QD Citalopram Hydrobromid Hydrobromid t} Hydrobromi e 40MG e 40MG de 40MG predniSONE predniSONE No predniSONE 5 MG 5 MG 5 MG Citalopram Citalopram No Citalopram Hydrobromid Hydrobromid Hydrobromi e 40MG e 40MG de 40MG Promethazin Promethazin No 1{table Promethazi e HCl 12.5 e HCl 12.5 t_as_ne ne HCl MG MG eded} 12.5 MG Omeprazole Omeprazole No Omeprazole 40MG 40MG 40MG azaTHIOprin azaTHIOprin No azaTHIOpri e 50 MG e 50 MG ne 50 MG traMADol traMADol No traMADol HCl 50 MG HCl 50 MG HCl 50 MG Ursodiol Ursodiol No Ursodiol 300 MG 300 MG 300 MG Atorvastati Atorvastati No 1{table Atorvastat n Calcium n Calcium t} in Calcium 40 MG 40 MG 40 MG Meclizine Meclizine No 1{table QD Meclizine HCl 25 MG HCl 25 MG t_as_ne HCl 25 MG eded} Tylenol 500 Tylenol 500 No 2{table Tylenol mg mg ts} 500 mg Promethazin Promethazin No 1{table Promethazi e HCl 12.5 e HCl 12.5 t_as_ne ne HCl MG MG eded} 12.5 MG Lisinopril Lisinopril No 1{table QD Lisinopril 5 MG 5 MG t} 5 MG NovoLIN NovoLIN No TID NovoLIN 70/30 70/30 70/30 (70-30) 100 (70-30) 100 (70-30) UNIT/ML UNIT/ML 100 UNIT/ML Citalopram Citalopram No 1{table QD Citalopram Hydrobromid Hydrobromid t} Hydrobromi e 40MG e 40MG de 40MG predniSONE predniSONE No predniSONE 5 MG 5 MG 5 MG Citalopram Citalopram No Citalopram Hydrobromid Hydrobromid Hydrobromi e 40MG e 40MG de 40MG Immunizations Ordered Filled Immunization Date Status Comments Sourc e Immunization Name Name SARS-COV-2 COVID-19 2020-09-18 Completed [facility]ACCINE - ([facility]) 00:00:00 [facility] SARS-COV-2 COVID-19 2020-09-18 Completed [facility] of VACCINE - (MODERNA) 00:00:00 [facility] SARS-COV-2 COVID-19 2020-09-18 Completed [facility] of VACCINE - (MODERNA) 00:00:00 [facility] SARS-COV-2 COVID-19 2020-09-18 Completed [facility] of VACCINE - (MODERNA) 00:00:00 [facility] SARS-COV-2 COVID-19 2020-09-18 Completed [facility] of VACCINE - (MODERNA) 00:00:00 [facility] SARS-COV-2 COVID-19 2020-09-18 Completed [facility] of VACCINE - (MODERNA) 00:00:00 [facility] SARS-COV-2 COVID-19 2020-09-18 Completed [facility] of VACCINE - (MODERNA) 00:00:00 [facility] SARS-COV-2 COVID-19 2020-09-18 Completed [facility] of VACCINE - (MODERNA) 00:00:00 [facility] SARS-COV-2 COVID-19 2020-09-18 Completed [facility] of VACCINE - (MODERNA) 00:00:00 [facility] SARS-COV-2 COVID-19 2020-09-18 Completed [facility] of VACCINE - (MODERNA) 00:00:00 [facility] SARS-COV-2 COVID-19 2020-09-18 Completed [facility] of VACCINE - (MODERNA) 00:00:00 [facility] SARS-COV-2 COVID-19 2020-09-18 Completed [facility] of VACCINE - (MODERNA) 00:00:00 [facility] SARS-COV-2 COVID-19 2020-09-18 Completed [facility] of VACCINE - (MODERNA) 00:00:00 [facility] SARS-COV-2 COVID-19 2020-09-18 Completed [facility] of VACCINE - (MODERNA) 00:00:00 [facility] SARS-COV-2 COVID-19 2020-09-18 Completed [facility] of VACCINE - (MODERNA) 00:00:00 [facility] SARS-COV-2 COVID-19 2020-09-18 Completed [facility] of VACCINE - (MODERNA) 00:00:00 [facility] SARS-COV-2 COVID-19 2020-09-18 Completed [facility] of VACCINE - (MODERNA) 00:00:00 [facility] SARS-COV-2 COVID-19 2020-09-18 Completed [facility] of VACCINE - (MODERNA) 00:00:00 [facility] SARS-COV-2 COVID-19 2020-09-18 Completed [facility] of VACCINE - (MODERNA) 00:00:00 [facility] SARS-COV-2 COVID-19 2020-09-18 Completed [facility] of VACCINE - (MODERNA) 00:00:00 [facility] SARS-COV-2 COVID-19 2020-09-18 Completed [facility] of VACCINE - (MODERNA) 00:00:00 [facility] SARS-COV-2 COVID-19 2020-09-18 Completed [facility] of VACCINE - (MODERNA) 00:00:00 [facility] SARS-COV-2 COVID-19 2020-09-18 Completed [facility] of VACCINE - (MODERNA) 00:00:00 [facility] SARS-COV-2 COVID-19 2020-09-18 Completed [facility] of VACCINE - (MODERNA) 00:00:00 [facility] SARS-COV-2 COVID-19 2020-09-18 Completed [facility] of VACCINE - (MODERNA) 00:00:00 [facility] SARS-COV-2 COVID-19 2020-09-18 Completed [facility] of VACCINE - (MODERNA) 00:00:00 [facility] SARS-COV-2 COVID-19 2020-09-18 Completed [facility] of VACCINE - (MODERNA) 00:00:00 [facility] SARS-COV-2 COVID-19 2020-09-18 Completed [facility] of VACCINE - (MODERNA) 00:00:00 [facility] SARS-COV-2 COVID-19 2020-09-18 Completed [facility] of VACCINE - (MODERNA) 00:00:00 [facility] SARS-COV-2 COVID-19 2020-09-18 Completed [facility] of VACCINE - (MODERNA) 00:00:00 [facility] SARS-COV-2 COVID-19 2020-09-18 Completed [facility] of VACCINE - (MODERNA) 00:00:00 [facility] SARS-COV-2 COVID-19 2020-09-18 Completed [facility] of VACCINE - (MODERNA) 00:00:00 [facility] SARS-COV-2 COVID-19 2020-09-18 Completed [facility] of VACCINE - (MODERNA) 00:00:00 [facility] SARS-COV-2 COVID-19 2020-09-18 Completed [facility] of VACCINE - (MODERNA) 00:00:00 [facility] SARS-COV-2 COVID-19 2020-09-18 Completed [facility] of VACCINE - (MODERNA) 00:00:00 [facility] SARS-COV-2 COVID-19 2020-09-18 Completed [facility] of VACCINE - (MODERNA) 00:00:00 [facility] SARS-COV-2 COVID-19 2020-09-18 Completed [facility] of VACCINE - (MODERNA) 00:00:00 [facility] SARS-COV-2 COVID-19 2020-09-18 Completed [facility] of VACCINE - (MODERNA) 00:00:00 [facility] SARS-COV-2 COVID-19 2020-09-18 Completed [facility] of VACCINE - (MODERNA) 00:00:00 [facility] SARS-COV-2 COVID-19 2020-09-18 Completed [facility] of VACCINE - (MODERNA) 00:00:00 [facility] SARS-COV-2 COVID-19 2020-09-18 Completed [facility] of VACCINE - (MODERNA) 00:00:00 [facility] SARS-COV-2 COVID-19 2020-09-18 Completed [facility] of VACCINE - (MODERNA) 00:00:00 [facility] SARS-COV-2 COVID-19 2020-09-18 Completed [facility] of VACCINE - (MODERNA) 00:00:00 [facility] SARS-COV-2 COVID-19 2020-09-18 Completed [facility] of VACCINE - (MODERNA) 00:00:00 [facility] SARS-COV-2 COVID-19 2020-09-18 Completed [facility] of VACCINE - (MODERNA) 00:00:00 [facility] SARS-COV-2 COVID-19 2020-09-18 Completed [facility] of VACCINE - (MODERNA) 00:00:00 [facility] SARS-COV-2 COVID-19 2020-09-18 Completed [facility] of VACCINE - (MODERNA) 00:00:00 [facility] SARS-COV-2 COVID-19 2020-09-18 Completed [facility] of VACCINE - (MODERNA) 00:00:00 [facility] SARS-COV-2 COVID-19 2020-09-18 Completed [facility] of VACCINE - (MODERNA) 00:00:00 [facility] SARS-COV-2 COVID-19 2020-09-18 Completed [facility] of VACCINE - (MODERNA) 00:00:00 [facility] SARS-COV-2 COVID-19 2020-09-18 Completed [facility] of VACCINE - (MODERNA) 00:00:00 [facility] SARS-COV-2 COVID-19 2020-09-18 Completed [facility] of VACCINE - (MODERNA) 00:00:00 [facility] SARS-COV-2 COVID-19 2020-09-18 Completed [facility] of VACCINE - (MODERNA) 00:00:00 [facility] SARS-COV-2 COVID-19 2020-09-18 Completed [facility] of VACCINE - (MODERNA) 00:00:00 [facility] SARS-COV-2 COVID-19 2020-09-18 Completed [facility] of VACCINE - (MODERNA) 00:00:00 [facility] SARS-COV-2 COVID-19 2020-09-18 Completed [facility] of VACCINE - (MODERNA) 00:00:00 [facility] SARS-COV-2 COVID-19 2020-09-18 Completed [facility] of VACCINE - (MODERNA) 00:00:00 [facility] SARS-COV-2 COVID-19 2020-09-18 Completed [facility] of VACCINE - (MODERNA) 00:00:00 [facility] SARS-COV-2 COVID-19 2020-09-18 Completed [facility] of VACCINE - (MODERNA) 00:00:00 [facility] SARS-COV-2 COVID-19 2020-09-18 Completed [facility] of VACCINE - (MODERNA) 00:00:00 [facility] SARS-COV-2 COVID-19 2020-09-18 Completed [facility] of VACCINE - (MODERNA) 00:00:00 [facility] SARS-COV-2 COVID-19 2020-09-18 Completed [facility] of VACCINE - (MODERNA) 00:00:00 [facility] SARS-COV-2 COVID-19 2020-09-18 Completed [facility] of VACCINE - (MODERNA) 00:00:00 [facility] SARS-COV-2 COVID-19 2020-09-18 Completed [facility] of VACCINE - (MODERNA) 00:00:00 [facility] SARS-COV-2 COVID-19 2020-09-18 Completed [facility] of VACCINE - (MODERNA) 00:00:00 [facility] SARS-COV-2 COVID-19 2020-09-18 Completed [facility] of VACCINE - (MODERNA) 00:00:00 [facility] SARS-COV-2 COVID-19 2020-09-18 Completed [facility] of VACCINE - (MODERNA) 00:00:00 [facility] SARS-COV-2 COVID-19 2020-09-18 Completed [facility] of VACCINE - (MODERNA) 00:00:00 [facility] SARS-COV-2 COVID-19 2020-09-18 Completed [facility] of VACCINE - (MODERNA) 00:00:00 [facility] SARS-COV-2 COVID-19 2020-09-18 Completed [facility] of VACCINE - (MODERNA) 00:00:00 [facility] SARS-COV-2 COVID-19 2020-09-18 Completed [facility] of VACCINE - (MODERNA) 00:00:00 [facility] SARS-COV-2 COVID-19 2020-09-18 Completed [facility] of VACCINE - (MODERNA) 00:00:00 [facility] SARS-COV-2 COVID-19 2020-09-18 Completed [facility] of VACCINE - (MODERNA) 00:00:00 [facility] SARS-COV-2 COVID-19 2020-09-18 Completed [facility] of VACCINE - (MODERNA) 00:00:00 [facility] SARS-COV-2 COVID-19 2020-09-18 Completed [facility] of VACCINE - (MODERNA) 00:00:00 [facility] SARS-COV-2 COVID-19 2020-09-18 Completed [facility] of VACCINE - (MODERNA) 00:00:00 [facility] SARS-COV-2 COVID-19 2020-09-18 Completed [facility] of VACCINE - (MODERNA) 00:00:00 [facility] SARS-COV-2 COVID-19 2020-09-18 Completed [facility] of VACCINE - (MODERNA) 00:00:00 [facility] SARS-COV-2 COVID-19 2020-09-18 Completed [facility] of VACCINE - (MODERNA) 00:00:00 [facility] SARS-COV-2 COVID-19 2020-09-18 Completed [facility] of VACCINE - (MODERNA) 00:00:00 [facility] SARS-COV-2 COVID-19 2020-09-18 Completed [facility] of VACCINE - (MODERNA) 00:00:00 [facility] SARS-COV-2 COVID-19 2020-09-18 Completed [facility] of VACCINE - (MODERNA) 00:00:00 [facility] SARS-COV-2 COVID-19 2020-09-18 Completed [facility] of VACCINE - (MODERNA) 00:00:00 [facility] SARS-COV-2 COVID-19 2020-09-18 Completed [facility] of VACCINE - (MODERNA) 00:00:00 [facility] SARS-COV-2 COVID-19 2020-09-18 Completed [facility] of VACCINE - (MODERNA) 00:00:00 [facility] SARS-COV-2 COVID-19 2020-09-18 Completed [facility] of VACCINE - (MODERNA) 00:00:00 [facility] SARS-COV-2 COVID-19 2020-09-18 Completed [facility] of VACCINE - (MODERNA) 00:00:00 [facility] SARS-COV-2 COVID-19 2020-09-18 Completed [facility] of VACCINE - (MODERNA) 00:00:00 [facility] Vital Signs Vital Name Observation Time Observation Value Comments Source Systolic blood 2022-09-05 19:09:00 79 mm[Hg] [facility] of pressure [facility] Diastolic blood 2022-09-05 19:09:00 50 mm[Hg] [facility] of pressure [facility] Heart rate 2022-09-05 19:09:00 87 /min [facility] Body temperature 2022-09-05 19:09:[facility]-09-05 19:09:00 188 cm [facility] Body weight 2022-09-05 19:09:00 98.884 kg [facility] BMI 2022-09-05 19:09:00 27.99 kg/m2 [facility] Systolic blood 2022-08-18 23:05:00 121 mm[Hg] [facility] of pressure [facility] Diastolic blood 2022-08-18 23:05:00 70 mm[Hg] [facility] of pressure [facility] Heart rate 2022-08-18 23:05:00 88 /min [facility] Body temperature 2022-08-18 23:05:00 36.72 [facility] Respiratory rate 2022-08-18 23:05:00 16 /min [facility] Oxygen saturation in 2022-08-18 23:05:00 97 /min [facility] Arterial blood by [facility] Body weight 2022-08-18 08:52:00 104.463 kg [facility] BMI 2022-08-18 08:52:00 28.79 kg/m2 [facility] Body height 2022-08-16 05:24:00 190.5 cm [facility] Body temperature 2022-08-15 18:28:00 36 [facility] Body height 2022-08-15 18:28:00 190.5 cm [facility] Body weight 2022-08-15 18:28:00 102.059 kg [facility] BMI 2022-08-15 18:28:00 28.12 kg/m2 [facility] Body temperature 2022-08-10 15:25:00 36.28 [facility] Body weight 2022-08-10 15:25:00 102.059 kg [facility] BMI 2022-08-10 15:25:00 28.12 kg/m2 [facility] Systolic blood 2022-08-06 16:15:00 150 mm[Hg] [facility] of pressure [facility] Diastolic blood 2022-08-06 16:15:00 70 mm[Hg] [facility] of pressure [facility] Heart rate 2022-08-06 16:15:00 70 /min [facility] Body temperature 2022-08-06 16:15:00 36.5 [facility] of [facility] Respiratory rate 2022-08-06 16:15:00 18 /min [facility] Oxygen saturation in 2022-08-06 16:15:00 95 /min [facility] blood by [facility] Body weight 2022-08-06 08:42:00 102.468 kg [facility] BMI 2022-08-06 08:42:00 28.24 kg/m2 [facility] Body height 2022-07-31 03:13:00 190.5 cm [facility] Body temperature 2022-07-28 20:51:00 36.61 Kelsie [facility] ersity of [facility] Body height 2022-07-28 20:51:00 190.5 cm [facility] Body weight 2022-07-28 20:51:00 98.431 kg [facility] BMI 2022-07-28 20:51:00 27.12 kg/m2 [facility] Systolic blood 2022-06-12 16:15:00 125 mm[Hg] Univer [facility]ity of pressure [facility] Diastolic blood 2022-06-12 16:15:00 69 mm[facility]Hg] [facility] Heart rate 2022-06-12 16:15:00 80 /min [facility] Body temperature 2022-06-12 16:15:00 37.06 Kelsie [facility] ersity of [facility] Respiratory rate 2022-06-12 16:15:00 [facility] Oxygen saturation in 2022-06-12 16:15:00 96 /min [facility] blood by [facility] Body weight 2022-06-12 08:33:00 98.975 kg [facility] BMI 2022-06-12 08:33:00 27.27 kg/m2 [facility] Body height 2022-06-07 02:48:00 190.5 cm [facility] Body temperature 2022-05-19 20:49:00 35.89 Kelsie [facility] ersity of [facility] Body height 2022-05-19 20:49:00 191.8 cm [facility] Body weight 2022-05-19 20:49:00 98.431 kg [facility] BMI 2022-05-19 20:49:00 26.77 kg/m2 [facility] Systolic blood 2022-05-13 20:28:00 148 mm[Hg] [facility] of pressure [facility] Diastolic blood 2022-05-13 20:28:00 76 mm[Hg] [facility]ive [facility] of pressure [facility] Heart rate 2022-05-13 20:28:00 86 /min [facility] Body temperature 2022-05-13 20:28:00 36.89 [facility] Respiratory rate 2022-05-13 20:28:00 16 /min [facility] Oxygen saturation in 2022-05-13 20:28:00 96 /min [facility] blood by [employer] janis [facility] Body weight 2022-05-13 09:15:00 94.983 kg [facility] BMI 2022-05-13 09:15:00 25.83 kg/m2 [facility] Body height 2022-05-10 15:50:00 191.8 cm [facility] Systolic blood 2022-05-10 15:50:00 141 mm[Hg] [facility] of pressure [facility] Diastolic blood 2022-05-10 15:50:00 76 mm[Hg] [facility]ive [facility] of pressure [facility] Heart rate 2022-05-10 15:50:00 93 /min [facility] Body temperature 2022-05-10 15:50:00 36.89 [facility] Respiratory rate 2022-05-10 15:50:00 18 /min [facility] Body height 2022-05-10 15:50:00 191.8 cm [facility] Body weight 2022-05-10 15:50:00 107.502 kg [facility] BMI 2022-05-10 15:50:00 26.37 kg/m2 [facility] Oxygen saturation in 2022-05-10 15:50:00 100 /min [facility] Body temperature 2022-05-05 22:05:00 35.89 [facility] Body weight 2022-05-05 22:05:00 98.884 kg [facility] BMI 2022-05-05 22:05:00 27.25 kg/m2 [facility] Systolic blood 2022-04-26 18:56:00 88 mm[Hg] Univer [facility]ity of pressure [facility] Diastolic blood 2022-04-26 18:56:00 55 mm[Hg] Unive rsity of pressure [facility] Heart rate 2022-04-26 18:56:00 106 /min [facility] Body temperature 2022-04-26 18:56:00 35.72 [facility] of [facility] Body height 2022-04-26 18:56:00 190.5 cm [facility] Body weight 2022-04-26 18:56:00 98.884 kg [facility] BMI 2022-04-26 18:56:00 27.25 kg/m2 [facility] Systolic blood 2022-04-16 17:53:00 147 mm[Hg] Univer [facility]ity of pressure [facility] Diastolic blood 2022-04-16 17:53:00 75 mm[Hg] Unive rsity of pressure [facility] Heart rate 2022-04-16 17:53:00 89 /min [facility] Body temperature 2022-04-16 17:53:00 36.78 Kelsie [facility] ersity of [facility] Respiratory rate 2022-04-16 17:53:00 16 /min [facility] 2022-04-16 17:53:00 96 /min [facility] Arterial blood by [facility] Body weight 2022-04-16 09:39:00 98.975 kg [facility] BMI 2022-04-16 09:39:00 27.27 kg/m2 [facility] Body height 2022-04-12 02:28:00 190.5 cm [facility] Systolic blood 2022-04-13 17:08:00 153 mm[Hg] Univer [facility]ity of pressure [facility] Diastolic blood 2022-04-13 17:08:00 82 mm[Hg] Unive rsity of pressure [facility] Heart rate 2022-04-13 17:08:00 86 /min [facility] Body temperature 2022-04-13 17:08:00 36.72 [facility] Respiratory rate 2022-04-13 17:08:00 16 /min [facility] Oxygen saturation in 2022-04-13 17:08:00 95 /min [facility] blood by [employer] janis [facility] Body weight 2022-04-13 09:35:00 101.47 kg [facility] BMI 2022-04-13 09:35:00 28.92 kg/m2 [facility] Body height 2022-04-12 02:28:00 190.5 cm [facility] Systolic blood 2022-04-11 19:39:00 82 mm[Hg] Univer [facility] of pressure [facility] Diastolic blood 2022-04-11 19:39:00 52 mm[Hg] [facility]ive rs[facility] of pressure [facility] Heart rate 2022-04-11 19:39:00 89 /min [facility] Body temperature 2022-04-11 19:39:00 36.39 [facility] Body height 2022-04-11 19:39:00 190.5 cm [facility] Body weight 2022-04-11 19:39:00 104.781 kg [facility] BMI 2022-04-11 19:39:00 28.87 kg/m2 [facility] Systolic blood 2022-04-05 20:40:00 128 mm[Hg] Univer [facility] of pressure [facility] Diastolic blood 2022-04-05 20:40:00 65 mm[Hg] Unive rs[facility] of pressure [facility] Heart rate 2022-04-05 20:40:00 75 /min [facility] Respiratory rate 2022-04-05 20:40:00 16 /min [facility] Oxygen saturation in 2022-04-05 20:40:00 98 /min [facility] blood by [employer] janis [facility] Body temperature 2022-04-05 19:36:00 35.78 [facility] Body height 2022-04-05 16:36:00 190.5 cm [facility] Body weight 2022-04-05 16:36:00 104.781 kg [facility] BMI 2022-04-05 16:36:00 28.87 kg/m2 [facility] Body height 2022-04-05 16:36:00 190.5 cm [facility] Body weight 2022-04-05 16:36:00 104.781 kg [facility] BMI 2022-04-05 16:36:00 28.87 kg/m2 [facility] Systolic blood 2022-04-05 16:28:00 125 mm[Hg] [facility] Diastolic blood 2022-04-05 16:28:00 66 mm[Hg] [facility] Heart rate 2022-04-05 16:28:00 86 /min [facility] Body temperature 2022-04-05 16:28:00 35.56 Kelsie [facility] Respiratory rate 2022-04-05 16:28:00 16 /min [facility] Oxygen saturation in 2022-04-05 16:28:00 95 /min [facility]ial blood by [place] [employer] [facility] Systolic blood 2022-03-30 21:23:00 73 mm[Hg] [facility] Diastolic blood 2022-03-30 21:23:00 45 mm[Hg] [facility] Heart rate 2022-03-30 20:53:00 99 /min [facility] Respiratory rate 2022-03-30 20:53:00 16 /min [facility] Body height 2022-03-30 20:53:00 191.8 cm [facility] Body weight 2022-03-30 20:53:00 107.502 kg [facility] BMI 2022-03-30 20:53:00 29.23 kg/m2 [facility] Oxygen saturation in 2022-03-30 20:53:00 98 /min [facility] Arterial blood by [employer] [facility] height 2022-03-22 16:50:00 75.5 [in_i] Common [facility] weight 2022-03-22 16:50:00 237 [lb_av] Common [facility] temperature 2022-03-22 16:50:00 98 [degF] Common [facility] bmi 2022-03-22 16:50:00 29.23 kg/m2 Common S [facility] - [facility] blood pressure 2022-03-22 16:50:00 120 mm[Hg] [facility] - systolic [facility] blood pressure 2022-03-22 16:50:00 70 mm[Hg] [facility] - diastolic [facility] Systolic blood 2022-03-14 21:42:00 97 mm[Hg] [facility] Diastolic blood 2022-03-14 21:42:00 58 mm[Hg] [facility] Heart rate 2022-03-14 21:42:00 105 /min [facility] Body temperature 2022-03-14 21:42:00 36.56 Kelsie [facility] 2022-03-14 21:42:00 191.8 cm [facility] Body weight 2022-03-14 21:42:00 104.327 kg [facility] BMI 2022-03-14 21:42:00 28.37 kg/m2 [facility] Systolic blood 2021-12-30 21:58:00 117 mm[Hg] [facility] Diastolic blood 2021-12-30 21:58:00 61 mm[Hg] Unive rsity of pressure [facility] Heart rate 2021-12-30 21:58:00 92 /min [facility] Body temperature 2021-12-30 21:58:00 37.11 [facility]ie [facility] 2021-12-30 21:58:00 18 /min [facility] O[facility] in 2021-12-30 21:58:00 94 /min [facility] Arterial blood by [facility] Pulse oximetry Branch Body height 2021-12-30 14:09:00 182.9 cm [facility] Body weight 2021-12-30 14:09:00 110.496 kg [facility] BMI 2021-12-30 14:09:00 33.04 kg/m2 [facility] Systolic blood 2021-12-22 17:33:00 102 mm[Hg] [facility] Diastolic blood 2021-12-22 17:33:00 59 mm[Hg] [facility] Heart rate 2021-12-22 17:33:00 74 /min [facility] Body temperature 2021-12-22 17:33:00 37 Kelsie [facility] Respiratory rate 2021-12-22 17:33:00 18 /min [facility] Oxygen saturation in 2021-12-22 17:33:00 93 /min [facility]ial blood by [place] [employer] [facility] Body height 2021-12-22 13:51:00 190.5 cm [facility] Body weight 2021-12-22 13:51:00 110.496 kg [facility] BMI 2021-12-22 13:51:00 30.59 kg/m2 [facility] Systolic blood 2021-12-17 20:38:00 155 mm[Hg] [facility] Diastolic blood 2021-12-17 20:38:00 76 mm[Hg] [facility] Heart rate 2021-12-17 20:38:00 81 /min [facility] Body temperature 2021-12-17 20:38:00 37.22 Kelsie [facility] Respiratory rate 2021-12-17 20:38:00 18 /min [facility] Oxygen saturation in 2021-12-17 20:38:00 96 /min [facility]ial blood by [place] [employer] [facility] Body height 2021-12-17 17:23:00 190.5 cm [facility] Body weight 2021-12-17 17:23:00 113.9 kg [facility] BMI 2021-12-17 17:23:00 31.39 kg/m2 [facility] Systolic blood 2021-12-14 20:45:00 138 mm[Hg] [facility] Diastolic blood 2021-12-14 20:45:00 70 mm[Hg] [facility] Heart rate 2021-12-14 20:45:00 87 /min [facility] Body temperature 2021-12-14 20:45:00 36.78 Kelsie [facility] Respiratory rate 2021-12-14 20:45:00 17 /min [facility] Oxygen saturation in 2021-12-14 20:45:00 95 /min [facility] blood by [place] [employer] [facility] Body weight 2021-12-06 05:52:00 131.498 kg [facility] BMI 2021-12-06 05:52:00 36.24 kg/m2 [facility] Body height 2021-12-03 06:30:00 190.5 cm [facility] Systolic blood 2021-12-08 12:47:00 169 mm[Hg] [facility] Diastolic blood 2021-12-08 12:47:00 83 mm[Hg] [facility] Heart rate 2021-12-08 12:47:00 94 /min [facility] Body temperature 2021-12-08 12:47:00 37.22 Kelsie [facility] Respiratory rate 2021-12-08 12:47:00 20 /min [facility] Oxygen saturation in 2021-12-08 12:47:00 93 /min [facility]ial blood by [place] [employer] janis Pulse [facility] Branch Body weight 2021-12-06 05:52:00 131.498 kg [facility] BMI 2021-12-06 05:52:00 36.24 kg/m2 [facility] Body height 2021-12-03 06:30:00 190.5 cm [facility] Systolic blood 2021-12-06 00:52:00 116 mm[Hg] [facility] Diastolic blood 2021-12-06 00:52:00 58 mm[Hg] [facility] Heart rate 2021-12-06 00:52:00 101 /min [facility] Body temperature 2021-12-06 00:52:00 36.28 Kelsie [facility] Respiratory rate 2021-12-06 00:52:00 18 /min [facility] Oxygen saturation in 2021-12-06 00:52:00 95 /min [facility]ial blood by [place] [employer] janis P[facility] Body weight 2021-12-04 13:00:00 125 kg [facility] BMI 2021-12-04 13:00:00 36.24 kg/m2 [facility] Body height 2021-12-03 06:30:00 190.5 cm [facility] Systolic blood 2021-12-03 12:00:00 127 mm[Hg] [facility] Diastolic blood 2021-12-03 12:00:00 76 mm[Hg] [facility] Heart rate 2021-12-03 12:00:00 106 /min [facility] Respiratory rate 2021-12-03 12:00:00 18 /min [facility] Oxygen saturation in 2021-12-03 12:00:00 94 /min [facility]ial blood by [place] [employer] janis [facility] Body temperature 2021-12-03 11:00:00 37.89 Kelsie [facility] Body height 2021-12-03 06:30:00 190.5 cm [facility] Body weight 2021-12-03 06:30:00 127.5 kg [facility] BMI 2021-12-03 06:30:00 36.24 kg/m2 [facility] Systolic blood 2021-12-01 04:40:00 178 mm[Hg] [facility] Diastolic blood 2021-12-01 04:40:00 85 mm[Hg] [facility] Heart rate 2021-12-01 04:40:00 98 /min [facility] Oxygen saturation in 2021-12-01 04:40:00 98 /min [facility] Arterial blood by [facility] Pulse oximetry Branch Respiratory rate 2021-12-01 03:00:00 17 /min [facility] Body temperature 2021-12-01 01:22:00 37.17 Kelsie [facility] Body height 2021-12-01 01:22:00 190.5 cm [facility] Body weight 2021-12-01 01:22:00 108.863 kg [facility] BMI 2021-12-01 01:22:00 30.00 kg/m2 [facility] height 2021-08-02 10:00:00 75.5 [in_i] [facility] weight 2021-08-02 10:00:00 296 [lb_av] [facility] temperature 2021-08-02 10:00:00 98 [degF] [facility] bmi 2021-08-02 10:00:00 36.51 kg/m2 [facility] blood pressure 2021-08-02 10:00:00 133 mm[Hg] [facility] - systolic [facility] blood pressure 2021-08-02 10:00:00 75 mm[Hg] [facility] - diastolic [facility] height 2021-04-07 14:00:00 75.5 [in_i] [facility] weight 2021-04-07 14:00:00 297.4 [lb_av] [facility] temperature 2021-04-07 14:00:00 98.0 [degF] [facility] bmi 2021-04-07 14:00:00 36.68 kg/m2 [facility] oximetry 2021-04-07 14:00:00 98 % [facility] respiratory rate 2021-04-07 14:00:00 17 /min Comm on [facility] blood pressure 2021-04-07 14:00:00 132 mm[Hg] Common [facility] - systolic [facility] blood pressure 2021-04-07 14:00:00 76 mm[Hg] [facility] height 2021-03-03 14:30:00 75.5 [in_i] Common S pirit [facility] weight 2021-03-03 14:30:00 289.6 [lb_av] Common [facility] temperature 2021-03-03 14:30:00 98.4 [degF] Common S pirit [facility] bmi 2021-03-03 14:30:00 35.72 kg/m2 Common S pirit [facility] oximetry 2021-03-03 14:30:00 95 % [facility] respiratory rate 2021-03-03 14:30:00 17 /min Comm on [facility] blood pressure 2021-03-03 14:30:00 132 mm[Hg] Common [facility] - systolic [facility] blood pressure 2021-03-03 14:30:00 68 mm[Hg] [facility] - [facility] height 2021-02-24 14:30:00 75.5 [in_i] Common S pirit [facility] weight 2021-02-24 14:30:00 286.3 [lb_av] [facility] temperature 2021-02-24 14:30:00 97.9 [degF] Common S pirit [facility] bmi 2021-02-24 14:30:00 35.31 kg/m2 Common S pirit [facility] oximetry 2021-02-24 14:30:00 98 % Common S [facility] respiratory rate 2021-02-24 14:30:00 18 /min Comm on [facility] blood pressure 2021-02-24 14:30:00 133 mm[Hg] Common [facility] - systolic [facility] blood pressure 2021-02-24 14:30:00 62 mm[Hg] [facility] - [facility] height 2021-01-04 14:20:00 75.5 [in_i] [facility] 2021-[facility]-04 14:20:00 279.3 [lb_av] Common [facility] temperature 2021-01-04 14:20:00 97.3 [degF] Common S pirit [facility] bmi 2021-01-04 14:20:00 34.45 kg/m2 Common S pirit [facility] oximetry 2021-01-04 14:20:00 97 % Common S [facility] respiratory rate 2021-01-04 14:20:00 18 /min Comm on [facility] blood pressure 2021-01-04 14:20:00 130 mm[Hg] [facility] - systolic [facility] blood pressure 2021-01-04 14:20:00 70 mm[Hg] [facility] - diastolic [facility] height 2020-12-03 14:10:00 75.5 [in_i] Common S [facility] weight 2020-12-03 14:10:00 279.3 [lb_av] [facility] temperature 2020-12-03 14:10:00 97.6 [degF] Common S [facility] bmi 2020-12-03 14:10:00 34.45 kg/m2 [facility] S [facility] oximetry 2020-12-03 14:10:00 97 % Common S [facility] respiratory rate 2020-12-03 14:10:00 17 /min Comm on [facility] blood pressure 2020-12-03 14:10:00 132 mm[Hg] [facility] - [facility] blood pressure 2020-12-03 14:10:00 76 mm[Hg] [facility] - diastolic [facility] WEIGHT 2020-09-09 14:44:00 122.925 kg height 2020-09-03 13:50:00 75.5 [in_i] Common S pirit [facility] weight 2020-09-03 13:50:00 274.7 [lb_av] Common [facility] temperature 2020-09-03 13:50:00 97.2 [degF] Common S [facility] bmi 2020-09-03 13:50:00 33.88 kg/m2 Common S [facility] oximetry 2020-09-03 13:50:00 97 % Common S [facility] respiratory rate 2020-09-03 13:50:00 17 /min Comm on [facility] blood pressure 2020-09-03 13:50:00 138 mm[Hg] Common [facility] - systolic [facility] blood pressure 2020-09-03 13:50:00 74 mm[Hg] Common [facility] - diastolic [facility] height 2020-09-03 14:00:00 75.5 [in_i] Common [facility] weight 2020-09-03 14:00:00 274.7 [lb_av] Common [facility] temperature 2020-09-03 14:00:00 97.2 [degF] Common [facility] bmi 2020-09-03 14:00:00 33.88 kg/m2 Common S [facility] oximetry 2020-09-03 14:00:00 97 % Common S [facility] blood pressure 2020-09-03 14:00:00 138 mm[Hg] [facility] - systolic [facility] blood pressure 2020-09-03 14:00:00 74 mm[Hg] [facility] - diastolic [facility] WEIGHT 2020-06-02 13:50:00 104.327 kg HEIGHT 2020-04-14 14:58:00 190.5 cm WEIGHT 2020-04-14 14:58:00 104.327 kg WEIGHT 2020-03-17 14:31:00 104.327 kg WEIGHT 2020-03-17 14:31:00 104.327 kg HEIGHT 2020-03-05 10:30:00 190.5 cm WEIGHT 2020-03-05 10:30:00 108.863 kg HEIGHT 2020-03-05 10:30:00 190.5 cm WEIGHT 2020-03-05 10:30:00 108.863 kg HEIGHT 2020-02-28 21:00:00 190.5 cm WEIGHT 2020-02-28 21:00:00 108.86 kg HEIGHT 2020-02-28 20:00:00 190.5 cm WEIGHT 2020-02-28 20:00:00 108.863 kg WEIGHT 2020-02-28 08:39:00 108.863 kg HEIGHT 2020-02-28 21:00:00 190.5 cm WEIGHT 2020-02-28 21:00:00 108.86 kg HEIGHT 2020-02-28 20:00:00 190.5 cm WEIGHT 2020-02-28 20:00:00 108.863 kg WEIGHT 2020-02-28 08:39:00 108.863 kg HEIGHT 2020-02-24 10:17:00 190.5 cm HEIGHT 2020-02-24 10:17:00 190.5 cm height 2020-02-18 13:00:00 75.5 [in_i] [facility] weight 2020-02-18 13:00:00 245.0 [lb_av] [facility] temperature 2020-02-18 13:00:00 97.2 [degF] [facility] bmi 2020-02-18 13:00:00 30.22 kg/m2 [facility] oximetry 2020-02-18 13:00:00 96 % [facility] respiratory rate 2020-02-18 13:00:00 18 /min Comm on [facility] blood pressure 2020-02-18 13:00:00 131 mm[Hg] Common [facility] - systolic [facility] blood pressure 2020-02-18 13:00:00 71 mm[Hg] Common [facility] - diastolic [facility] Body temperature 2019-12-23 19:26:00 36.61 Kelsie Univ [facility] Body height 2019-12-23 19:26:00 188 cm Universi ty [facility] Body weight 2019-12-23 19:26:00 108.863 kg Universi [facility] BMI 2019-12-23 19:26:00 30.81 kg/m2 Universi ty [facility] height 2019-11-21 13:20:00 75.5 [in_i] [facility] weight 2019-11-21 13:20:00 245.0 [lb_av] Common [facility] temperature 2019-11-21 13:20:00 96.8 [degF] [facility] bmi 2019-11-21 13:20:00 30.22 kg/m2 [facility] oximetry 2019-11-21 13:20:00 96 % Common S [facility] respiratory rate 2019-11-21 13:20:00 17 /min Comm on [facility] blood pressure 2019-11-21 13:20:00 121 mm[Hg] Common [facility] - systolic [facility] blood pressure 2019-11-21 13:20:00 68 mm[Hg] Common [facility] - diastolic [facility] Body temperature 2019-11-11 18:21:00 36.5 Kelsie Univ ersity of [facility] Body height 2019-11-11 18:21:00 190.5 cm [facility] Body weight 2019-11-11 18:21:00 108.863 kg [facility] BMI 2019-11-11 18:21:00 30.00 kg/m2 [facility] height 2019-11-06 14:10:00 75.5 [in_i] [facility] 2019-11-06 14:10:00 245.0 [lb_av] Common [facility] temperature 2019-11-06 14:10:00 97.3 [degF] Common S [facility] bmi 2019-11-06 14:10:00 30.22 kg/m2 [facility] oximetry 2019-11-06 14:10:00 96 % [facility] 2019-11-06 14:10:00 18 /min [facility] on [facility] - [facility] blood pressure 2019-11-06 14:10:00 132 mm[Hg] Common [facility] - systolic [facility] blood pressure 2019-11-06 14:10:00 68 mm[Hg] Common [facility] - diastolic [facility] height 2019-11-06 14:00:00 75.5 [in_i] Common [facility] weight 2019-11-06 14:00:00 245.0 [lb_av] Common [facility] temperature 2019-11-06 14:00:00 97.3 [degF] Common S [facility] bmi 2019-11-06 14:00:00 30.22 kg/m2 Common S [facility] oximetry 2019-11-06 14:00:00 96 % Common S [facility] blood pressure 2019-11-06 14:00:00 132 mm[Hg] Common [facility] - systolic [facility] blood pressure 2019-11-06 14:00:00 68 mm[Hg] Common [facility] - diastolic [facility] Body temperature 2019-10-24 21:30:00 36.5 Kelsie [facility] Systolic blood 2019-10-08 17:50:00 127 mm[Hg] Univer sity of pressure [facility] Diastolic blood 2019-10-08 17:50:00 75 mm[Hg] Unive rsity [facility] Heart rate 2019-10-08 17:50:00 74 /min [facility] Respiratory rate 2019-10-08 17:50:00 8 /min [facility] in 2019-10-08 17:50:00 98 /min [facility] Arterial blood by [facility] Pulse oximetry Branch Body temperature 2019-10-08 16:50:00 37.06 Kelsie [facility] Body height 2019-10-08 13:43:00 190.5 cm [facility] Body weight 2019-10-08 13:43:00 108.863 kg [facility] BMI 2019-10-08 13:43:00 30.00 kg/m2 [facility] Body temperature 2019-09-23 17:56:00 36 Kelsie Univ [facility]ity of [facility] Body height 2019-09-23 17:56:00 190.5 cm [facility] Body weight 2019-09-23 17:56:00 113.399 kg [facility] BMI 2019-09-23 17:56:00 31.25 kg/m2 [facility] Systolic blood 2019-09-13 17:06:00 141 mm[Hg] Univer sity of pressure [facility] Diastolic blood 2019-09-13 17:06:00 78 mm[Hg] Unive rsity of pressure [facility] Heart rate 2019-09-13 17:06:00 94 /min [facility]i [facility] of [facility] Body temperature 2019-09-13 17:06:00 36 Kelsie [facility] Respiratory rate 2019-09-13 17:06:00 20 /min [facility] Oxygen saturation in 2019-09-13 17:06:00 94 /min [facility] Arterial blood by [facility] Pulse oximetry Branch Body weight 2019-09-13 08:58:00 105.96 kg [facility] BMI 2019-09-13 08:58:00 29.20 kg/m2 [facility]i [facility] Body height 2019-09-12 22:20:00 190.5 cm [facility]i [facility] Body temperature 2019-07-29 18:32:00 36.44 Kelsie [facility] ersity of [facility] Body height 2019-07-29 18:32:00 190.5 cm [facility]i [facility] Body weight 2019-07-29 18:32:00 108.863 kg [facility]i [facility] of [facility] BMI 2019-07-29 18:32:00 30.00 kg/m2 [facility] Body temperature 2019-07-22 17:52:00 36 Kelsie Univ [facility]ity of [facility] Body height 2019-07-22 17:52:00 190.5 cm [facility]i ty [facility] Body weight 2019-07-22 17:52:00 115.667 kg [facility]i [facility] of [facility] BMI 2019-07-22 17:52:00 31.87 kg/m2 [facility] Body temperature 2019-04-29 20:52:00 36.11 Kelsie [facility] Body height 2019-04-29 20:52:00 190.5 cm [facility] Body weight 2019-04-29 20:52:00 120.203 kg [facility] BMI 2019-04-29 20:52:00 33.12 kg/m2 [facility] Body temperature 2019-04-29 18:29:00 35.67 Kelsie [facility] Body height 2019-04-29 18:29:00 190.5 cm [facility] Body weight 2019-04-29 18:29:00 120.203 kg [facility] BMI 2019-04-29 18:29:00 33.12 kg/m2 Universi ty of [facility] Body temperature 2019-04-08 20:00:00 36.72 Kelsie [facility] Body height 2019-04-08 20:00:00 190.5 cm [facility] Body weight 2019-04-08 20:00:00 120.203 kg [facility] BMI 2019-04-08 20:00:00 33.12 kg/m2 [facility] Body temperature 2019-03-25 19:36:00 36.83 Kelsie Univ [facility]ity of [facility] Body height 2019-03-25 19:36:00 190.5 cm [facility] Body weight 2019-03-25 19:36:00 120.203 kg [facility] BMI 2019-03-25 19:36:00 33.12 kg/m2 Universi ty of [facility] Systolic blood 2019-03-13 13:43:00 144 mm[Hg] Univer sity of pressure [facility] Diastolic blood 2019-03-13 13:43:00 75 mm[Hg] Unive rsity of pressure [facility] Heart rate 2019-03-13 13:43:00 100 /min Universi ty of [facility] Body temperature 2019-03-13 13:43:00 36.94 Kelsie Univ ersity of [facility] Respiratory rate 2019-03-13 13:43:00 18 /min Univ ersity of [facility] Oxygen saturation in 2019-03-13 13:43:00 98 /min [facility] of Arterial blood by [employer] janis Pulse oximetry Branch Body height 2019-03-12 18:45:00 190.5 cm [facility] Body weight 2019-03-12 18:45:00 120.203 kg [facility] BMI 2019-03-12 18:45:00 33.12 kg/m2 Universi ty of [facility] Body temperature 2019-03-11 14:57:00 36.67 Kelsie [facility] Body height 2019-03-11 14:57:00 188 cm [facility] Body weight 2019-03-11 14:57:00 121.246 kg [facility] BMI 2019-03-11 14:57:00 34.32 kg/m2 [facility] Systolic blood 2019-03-06 17:22:00 138 mm[Hg] [facility] Diastolic blood 2019-03-06 17:22:00 72 mm[Hg] Unive rsity of pressure [facility] Heart rate 2019-03-06 17:22:00 77 /min [facility] Body temperature 2019-03-06 17:22:00 37.22 Kelsie [facility] Respiratory rate 2019-03-06 17:22:00 18 /min [facility] Oxygen saturation in 2019-03-06 17:22:00 94 /min [facility] Arterial blood by [facility] janis Pulse oximetry Branch Body height 2019-03-01 22:10:00 190.5 cm [facility] Body weight 2019-03-01 22:10:00 122.517 kg [facility] BMI 2019-03-01 22:10:00 33.76 kg/m2 [facility] Systolic blood 2019-02-27 16:51:00 149 mm[Hg] [facility] Diastolic blood 2019-02-27 16:51:00 75 mm[Hg] Unive rsity of pressure [facility] Heart rate 2019-02-27 16:51:00 105 /min [facility] Body temperature 2019-02-27 16:51:00 37.78 Kelsie [facility] Respiratory rate 2019-02-27 16:51:00 16 /min [facility] Body height 2019-02-27 16:51:00 190.5 cm [facility] Body weight 2019-02-27 16:51:00 124.059 kg [facility] BMI 2019-02-27 16:51:00 34.19 kg/m2 [facility] Systolic blood 2018-10-03 14:12:00 137 mm[Hg] [facility] Diastolic blood 2018-10-03 14:12:00 69 mm[Hg] [facility] Heart rate 2018-10-03 14:12:00 86 /min [facility] Body temperature 2018-10-03 13:32:00 36.83 Kelsie [facility] Respiratory rate 2018-10-03 13:32:00 16 /min [facility] Body height 2018-10-03 13:32:00 190.5 cm [facility] Body weight 2018-10-03 13:32:00 122.789 kg [facility] BMI 2018-10-03 13:32:00 33.84 kg/m2 [facility] Systolic blood 2018-09-12 15:01:00 135 mm[Hg] [facility] Diastolic blood 2018-09-12 15:01:00 64 mm[Hg] [facility] Heart rate 2018-09-12 15:01:00 82 /min [facility] Body temperature 2018-09-12 15:01:00 36.78 Kelsie [facility] Respiratory rate 2018-09-12 15:01:00 18 /min [facility] Body height 2018-09-12 15:01:00 190.5 cm [facility] Body weight 2018-09-12 15:01:00 123.378 kg [facility] BMI 2018-09-12 15:01:00 34.00 kg/m2 [facility] Systolic blood 2021-08-04 11:51:00 117 mm[Hg] [facility] Diastolic blood 2021-08-04 11:51:00 73 mm[Hg] [facility] Heart rate 2021-08-04 11:51:00 102 /min [facility] Respiratory rate 2021-08-04 11:51:00 18 /min [facility] Body height 2021-08-04 11:51:00 193 cm [facility] Body weight 2021-08-04 11:51:00 131.135 kg [facility] BMI 2021-08-04 11:51:00 35.19 kg/m2 [facility] Oxygen saturation in 2021-08-04 11:51:00 95 /min [facility] Arterial blood by Medical Ce ntcharley Pulse oximetry Procedures Procedure Date / Time Performing Clinician Source Performed BASIC METABOLIC PANEL 2022-08-18 [facility] (NA, K, CL, CO2, 09:45:00 Medical Branch GLUCOSE, BUN, CREATININE, CA) VANCOMYCIN TROUGH [facility] CBC WITH DIFF 2022-08-18 [facility] 06:13:00 [facility] BASIC METABOLIC PANEL 2022-08-17 [facility] (NA, K, CL, CO2, 09:43:00 Medical Branch GLUCOSE, BUN, CREATININE, CA) CBC WITH DIFF 2022-08-17 [facility] 09:43:00 [facility] COMP. METABOLIC PANEL 2022-08-16 [facility] ([id number]) 03:45:00 [facility] XR CHEST 1 VW 2022-08-16 [facility] 03:[facility] URINALYSIS 2022-08-16 [facility] 02:59:00 [facility] URINE CULTURE 2022-08-16 [facility] 02:59[facility]00 [facility] LACTIC ACID WHOLE BLOOD 2022-08-16 [facility] 02:48:00 [facility] BLOOD CULTURE SCREEN 2022-08-16 Valencia, [facility] 02:44:00 Medical Branch CBC WITH DIFF 2022-08-16 [facility] 02:44:00 Medical Branch NOTICE OF PRIVACY 2022-08-16 Doctor Unassigned, No [facility] PRACTICES 02:08:31 Name Medical Branch CONSENT/REFUSAL FOR 2022-08-16 Doctor Unassigned, No [facility] DIAGNOSIS AND TREATMENT 02:06:41 Name [facility] POCT GLUCOSE (AUTOMATED) 2022-08-06 [facility] 12:[facility] BASIC METABOLIC PANEL 2022-08-06 [facility] (NA, K, CL, CO2, 09:50:00 Medical Branch GLUCOSE, BUN, CREATININE, CA) CBC WITH DIFF 2022-08-06 [facility] 09:50:00 Medical Branch POCT GLUCOSE (AUTOMATED) 2022-08-06 [facility] 02:55:00 Medical [facility] XR CHEST 1 VW 2022-08-06 [facility] [place] 02:12:32 Medical Branch POCT GLUCOSE (AUTOMATED) 2022-08-05 Nacho Blanco rsity [facility] 21:14:00 Medical Branch POCT GLUCOSE (AUTOMATED) 2022-08-05 Nacho Blanco rsity [facility] 16:29:00 Medical Branch POCT GLUCOSE (AUTOMATED) 2022-08-05 Nacho Blanco rsity [facility] 12:17:00 Medical Branch CBC WITH DIFF 2022-08-05 [facility] [place] 09:07:00 Medical Branch POCT GLUCOSE (AUTOMATED) 2022-08-05 Nacho Blanco rsity [facility] 02:26:00 Medical Branch POCT GLUCOSE (AUTOMATED) 2022-08-04 Nacho Blanco rsity [facility] 21:25:00 Medical Branch POCT GLUCOSE (AUTOMATED) 2022-08-04 Nacho Blanco rsity [facility] 16:35:00 Medical Branch POCT GLUCOSE (AUTOMATED) 2022-08-04 Nacho Blanco [facility] [place] 12:59:00 [facility] BASIC METABOLIC PANEL 2022-08-04 [facility] (NA, K, CL, CO2, 09:46:00 Medical Branch GLUCOSE, BUN, CREATININE, CA) CBC WITH DIFF 2022-08-04 Rohit [facility] 09:46:00 Medical Branch URINALYSIS 2022-08-04 [facility] 05:43:00 Medical Branch URINE CULTURE 2022-08-04 [facility] 05:43:00 Medical Branch POCT GLUCOSE (AUTOMATED) 2022-08-04 Nacho Blanco rsity [facility] 02:51:00 Medical Branch POCT GLUCOSE (AUTOMATED) 2022-08-03 Nacho Blanco rsity [facility] 21:55:00 Medical Branch BLOOD CULTURE SCREEN 2022-08-03 [facility] 17:54:00 Medical Branch BLOOD CULTURE SCREEN 2022-08-03 [facility] 17:42:00 Medical Branch POCT GLUCOSE (AUTOMATED) 2022-08-03 Nacho Blanco rsity [facility] 16:48:00 Medical Branch POCT GLUCOSE (AUTOMATED) 2022-08-03 Nacho Blanco rsity [facility] 12:48:00 Medical Branch BASIC METABOLIC PANEL 2022-08-03 [facility] (NA, K, CL, CO2, 09:09:00 Medical Branch GLUCOSE, BUN, CREATININE, CA) CBC WITH DIFF 2022-08-03 [facility] 09:09:00 Medical Branch POCT GLUCOSE (AUTOMATED) 2022-08-03 Nacho Blanco rsity [facility] 01:31:00 Medical Branch POCT GLUCOSE (AUTOMATED) 2022-08-02 Nacho Blanco rsity [facility] 21:22:00 Medical Branch POCT GLUCOSE (AUTOMATED) 2022-08-02 Nacho Blanco rsity [facility] 16:39:00 Medical Branch TRANSTHORACIC ECHO (TTE) 2022-08-02 Zaid Cai [facility] COMPLETE W/ CONTRAST 15:26:00 Medical [facility] POCT GLUCOSE (AUTOMATED) 2022-08-02 [facility] 13:02:00 Medical Branch BASIC METABOLIC PANEL 2022-08-02 [facility] ([facility], K, CL, CO2, 09:07:00 Medical Branch GLUCOSE, BUN, CREATININE, CA) CBC WITH DIFF 2022-08-02 [facility] 09:07:00 Medical Branch POCT GLUCOSE (AUTOMATED) 2022-08-02 [facility]anco [facility] 02:19:00 Medical Branch POCT GLUCOSE (AUTOMATED) 2022-08-01 [facility] 21:36:00 Medical Branch POCT GLUCOSE (AUTOMATED) 2022-08-01 [facility] [place] [facility] 16:54:00 Medical Branch POCT GLUCOSE (AUTOMATED) 2022-08-01 Nach[facility] [place] [facility] 12:44:00 Medical Branch BLOOD CULTURE SCREEN 2022-08-01 [facility] 08:55:00 Medical Branch BLOOD CULTURE WORKUP 2022-08-01 [facility] 08:55:00 Medical Branch BLOOD CULTURE SCREEN 2022-08-01 [facility] 08:44:00 Medical Branch BASIC METABOLIC PANEL 2022-08-01 [facility] (NA, K, CL, CO2, 08:44:00 Medical Branch GLUCOSE, BUN, CREATININE, CA) CBC WITH DIFF 2022-08-01 [facility] 08:44:00 Medical Branch POCT GLUCOSE (AUTOMATED) 2022-08-01 Nach[facility] [place] [facility] 01:16:00 Medical Branch POCT GLUCOSE (AUTOMATED) 2022-07-31 Nach[facility]anco [facility] [place] [facility] 21:29:00 Medical Branch GLYCOSYLATED HEMOGLOBIN 2022-07-31 [place], [facility] (A1C) 19:56:00 [facility] MRSA / MSSA SCREEN BY 2022-07-[address] [facility] PCR, NARES 19:56:00 [facility] POCT GLUCOSE (AUTOMATED) 2022-07-31 Nacho Blanco [facility] 16:56:00 [facility] POCT GLUCOSE (AUTOMATED) 2022-07-31 Nacho Blanco [facility] 12:45:00 [facility] MAGNESIUM 2022-07-31 Nacho Blanco [facility] 09:06:00 [facility] BASIC METABOLIC PANEL 2022-07-[address] [facility] (NA, K, CL, CO2, 09:06:00 Medical [facility] GLUCOSE, BUN, CREATININE, CA) CBC WITH DIFF 2022-07-31 Nacho Blanco [facility] 09:06:00 [facility] LACTIC ACID WHOLE BLOOD 2022-07-31 Nacho Blanco [facility] 03:47:00 [facility] URINALYSIS 2022-07-31 [facility] 01:45:00 [facility] URINE CULTURE 2022-07-31 [facility] 01:45:00 [facility] LACTIC ACID WHOLE BLOOD 2022-07-31 [facility] 01:20:00 [facility] BLOOD CULTURE SCREEN 2022-07-31 [facility] 01:12:00 [facility] COMP. METABOLIC PANEL 2022-07-31 [facility] ([id number]) 01:12:00 [facility] CBC WITH DIFF 2022-07-31 [facility] 01:12:00 [facility] BLOOD CULTURE WORKUP 2022-07-31 [facility] 01:12:00 [facility] BLOOD CULTURE WORKUP 2022-07-31 [facility] 01:12:00 [facility] GRAM POSITIVE BLOOD 2022-07-31 [facility] PATHOGENS DNA 01:12:00 [facility] PROBE-ANAEROBIC EKG-12 LEAD 2022-07-31 [facility] 01:[facility]:52 Medical Branch CONSENT/REFUSAL FOR 2022-07-31 Doctor Unassigned, No [facility] DIAGNOSIS AND TREATMENT 00:32:39 Name Medical Branch EXTERNAL PROVIDER 2022-07-27 Doctor Unassigned, No [facility] RECORDS 05:01:00 Name Medical Branch EXTERNAL PROVIDER 2022-06-24 Doctor Unassigned, No [facility] RECORDS 05:01:00 Name Medical Branch POCT GLUCOSE (AUTOMATED) 2022-06-12 Le, [facility] 16:13:00 Medical Branch POCT GLUCOSE (AUTOMATED) 2022-06-12 Le, [facility] 12:17:00 Medical Branch CBC WITH DIFF 2022-06-12 Audrey Hurtado [facility] 08:45:00 Medical Branch POCT GLUCOSE (AUTOMATED) 2022-06-12 Le, [facility] 01:43:00 Medical Branch POCT GLUCOSE (AUTOMATED) 2022-06-11 Le, [facility] 22:11:00 Medical Branch POCT GLUCOSE (AUTOMATED) 2022-06-11 Le, [facility] 16:18:00 Medical Branch POCT GLUCOSE (AUTOMATED) 2022-06-11 Le, [facility] 12:55:00 [facility] BASIC METABOLIC PANEL 2022-06-11 Harry [facility] (NA, K, CL, CO2, 08:02:00 Medical Branch GLUCOSE, BUN, CREATININE, CA) CBC WITH DIFF 2022-06-[address] [facility] x[facility] 07:56:00 Medical Branch POCT GLUCOSE (AUTOMATED) 2022-06-11 Le, [facility] 01:43:00 Medical Branch POCT GLUCOSE (AUTOMATED) 2022-06-10 Le, [facility] 22:19:00 Medical Branch POCT GLUCOSE (AUTOMATED) 2022-06-10 , [facility] 17:10:00 Medical Branch BLOOD CULTURE SCREEN 2022-06-10 Harry [facility] 14:41:00 Medical Branch CBC WITH DIFF 2022-06-10 Gopal [facility] 14:41:00 Medical Branch POCT GLUCOSE (AUTOMATED) 2022-06-10 Le, Jennifer [facility] ity [facility] 13:41:00 Medical Branch POCT GLUCOSE (AUTOMATED) 2022-06-10 Le, Jennifer [facility] [place] 01:57:00 [facility] POCT GLUCOSE (AUTOMATED) 2022-06-09 Le, Jennifer [facility] [place] 21:52:00 Medical Branch POCT GLUCOSE (AUTOMATED) 2022-06-09 Le, [facility] 17:03:00 Medical Branch CBC WITH DIFF 2022-06-09 [facility] 09:38[facility]00 [facility] Branch BASIC METABOLIC PANEL 2022-06-[facility] ([facility], K, CL, CO2, 09:10:00 Medical Branch GLUCOSE, BUN, CREATININE, CA) POCT GLUCOSE (AUTOMATED) 2022-06-09 Le, Jennifer [facility] ity [facility] 02:05:00 Medical Branch POCT GLUCOSE (AUTOMATED) 2022-06-08 Le, Jennifer [facility] ity [facility] 21:01:00 Medical Branch POCT GLUCOSE (AUTOMATED) 2022-06-08 [facility], [facility] 16:41:00 Medical Branch POCT GLUCOSE (AUTOMATED) 2022-06-08 Le, [facility] it[facility] 13:03:00 Medical Branch BASIC METABOLIC PANEL 2022-06-08 Lavern Alicia [facility] (NA, K, CL, CO2, 09:46:00 Medical Branch GLUCOSE, BUN, CREATININE, CA) CBC WITH DIFF 2022-06-08 Lavern Alicia [facility] 09:46:00 Medical Branch POCT GLUCOSE (AUTOMATED) 2022-06-08 Le, Jennifer [facility] ity [facility] 02:02:00 Medical Branch POCT GLUCOSE (AUTOMATED) 2022-06-07 Le, [facility] it[facility] 22:02:00 Medical Branch POCT GLUCOSE (AUTOMATED) 2022-06-07 Le, Jennifer Univers it[facility] 17:12:00 Medical Branch POCT GLUCOSE (AUTOMATED) 2022-06-07 Le, [facility] 13:05:00 Medical Branch BASIC METABOLIC PANEL 2022-06-07 Le, [facility] (NA, K, CL, CO2, 10:12:00 Medical Branch GLUCOSE, BUN, CREATININE, CA) CBC WITH DIFF 2022-06-07 [facility] 10:12:00 Medical Branch POCT GLUCOSE (AUTOMATED) 2022-06-07 [facility] 03:08:00 Medical Branch LACTIC ACID WHOLE BLOOD 2022-06-07 [facility] 01:53:00 Medical Branch POCT GLUCOSE (AUTOMATED) 2022-06-07 Huma [facility] 01:50:00 Medical Branch BLOOD CULTURE SCREEN 2022-06-06 [facility] 20:45:00 Medical Branch BLOOD CULTURE WORKUP 2022-06-06 [facility] 20:45:00 [facility] GRAM NEGATIVE BLOOD 2022-06-06 [facility] PATHOGENS DNA 20:45:00 [facility] PROBE-ANAEROBIC URINE CULTURE 2022-06-06 [facility] 20:36:00 [facility]INALYSIS 2022-06-06 [facility] 20:35[facility]00 [facility] LACTIC ACID WHOLE BLOOD 2022-06-06 [facility] 19:57:00 Medical Branch CBC WITH DIFF 2022-06-06 [facility] 19:55:00 [facility] BLOOD CULTURE SCREEN 2022-06-06 [facility] 19:54:00 Medical Branch BLOOD CULTURE WORKUP 2022-06-06 [facility] 19:54:00 [facility] GRAM NEGATIVE BLOOD 2022-06-06 [facility] 19:54:00 [facility] PROBE-AEROBIC TROPONIN I 2022-06-06 [facility] 19:52:00 [facility] COMP. METABOLIC PANEL 2022-06-06 [facility] ([id number]) 19:52:00 [facility] RAPID INFLUENZA A/B 2022-06-06 [facility] 19:25:00 [facility] COVID-19 (ID NOW RAPID 2022-06-06 [facility] 19:25:00 [facility] LAB ONLY COVID 2022-06-06 Abhishek, [facility] [employer] [facility] INTERPRETATION 19:25:00 Medical Branch POCT GLUCOSE(AGE 2022-06-06 [facility] >30DAYS) 19:08:00 Medical Branch POCT GLUCOSE (AUTOMATED) 2022-06-06 Abhishek [facility] 19:07:00 [facility] HB ECG ROUTINE & RHYTHM 2022-06-06 [facility] STRIP 18:12:57 Medical Branch CONSENT/REFUSAL FOR 2022-06-06 Doctor Unassigned, No [facility] DIAGNOSIS AND TREATMENT 18:08:41 Name [facility] POCT GLUCOSE (AUTOMATED) 2022-05-13 [facility] 18:26:00 Medical Branch POCT GLUCOSE (AUTOMATED) 2022-05-13 [facility] 16:28:00 [facility] POCT GLUCOSE (AUTOMATED) 2022[facility]05-13 [facility]00 [facility] BASIC METABOLIC PANEL 2022-05-13 [facility] Edgar [facility] (NA, K, CL, CO2, 07:50:00 [facility] GLUCOSE, BUN, CREATININE, CA) CBC WITH DIFF 2022-05-13 [facility] 07:50:00 [facility] POCT GLUCOSE (AUTOMATED) 2022-05-13 [facility] 05:05:00 [facility] POCT GLUCOSE (AUTOMATED) 2022-05-13 [facility] 02:13:00 [facility] POCT GLUCOSE (AUTOMATED) 2022-05-12 [facility] 21:53:00 [facility] C-REACTIVE PROTEIN 2022-05-12 Frank [facility] 18:27:00 Medical Branch SEDIMENTATION RATE 2022-05-12 [facility] 18:27[facility] POCT GLUCOSE (AUTOMATED) 2022-05-12 Juan Pablo Chiu [facility] 16:51:00 Medical Branch CEDRICK MULTI LEVEL - BY 2022-05-12 Konrad Yates [facility] VASCULAR LAB 14:47:16 Medical Branch POCT GLUCOSE (AUTOMATED) 2022-05-12 [facility] 13:25:00 Medical Branch POCT GLUCOSE (AUTOMATED) 2022-05-11 [facility] 22:32:00 Medical Branch POCT GLUCOSE (AUTOMATED) 2022-05-11 Le, [facility] 17:41:00 Medical Branch POCT GLUCOSE (AUTOMATED) 2022-05-11 Le, [facility] 17:41:00 Medical Branch POCT GLUCOSE (AUTOMATED) 2022-05-11 Le, [facility] 13:58:00 Medical Branch POCT GLUCOSE (AUTOMATED) 2022-05-11 Le, [facility] 13:58:00 Medical Branch EXTRA TUBE LT. GREEN 2022-05-11 Brayan [facility] 09:18:00 Medical Branch EXTRA TUBE LT. GREEN 2022-05-11 Brayan [facility] 09:18:00 Medical Branch CBC WITH DIFF 2022-05-11 Brayan [facility] 09:16:00 Medical Branch GLYCOSYLATED HEMOGLOBIN 2022-05-11 Le, [facility] (A1C) 09:16:00 Medical Branch CBC WITH DIFF 2022-05-11 Brayan [facility] 09:16:00 Medical Branch GLYCOSYLATED HEMOGLOBIN 2022-05-11 Le, [facility] (A1C) 09:16:00 Medical Branch POCT GLUCOSE (AUTOMATED) 2022-05-11 Le, [facility] 02:13:00 Medical Branch POCT GLUCOSE (AUTOMATED) 2022-05-11 Le, [facility] 02:13:00 Medical Branch POCT GLUCOSE (AUTOMATED) 2022-05-10 Le, [facility] 22:23:00 Medical Branch POCT GLUCOSE (AUTOMATED) 2022-05-10 Le, [facility] 22:23:00 Medical Branch TISSUE 2022-05-10 Ifeoma [facility] CULTURE(AEROBIC/ANAEROBI 21:55:00 Medical Branch C) TISSUE 2022-05-10 Ifeoma [facility] CULTURE(AEROBIC/ANAEROBI 21:55:00 Medical Branch C) FUNGUS (ROUTINE) CULTURE 2022-05-10 [facility] 21:55:00 Medical Branch FOOT DEBRIDEMENT 2022-05-10 [facility] 21:27:00 Medical Branch FOOT DEBRIDEMENT 2022-05-10 [facility] 21:27:00 Medical Branch POCT GLUCOSE (AUTOMATED) 2022[facility]05-[facility] 20:10[facility]00 [facility] POCT GLUCOSE (AUTOMATED) 2022[facility]05-10 [facility] 20:10:00 Medical Branch POCT GLUCOSE (AUTOMATED) 2022-05-10 SamAustin ly [facility] 19:18:00 Medical Branch POCT GLUCOSE (AUTOMATED) 2022-05-10 Austin Dia [facility] 19:18:00 Medical Branch POCT GLUCOSE (AUTOMATED) 2022-05-10 Ifeoma [place] [facility] 17:56:00 Medical Branch POCT GLUCOSE (AUTOMATED) 2022-05-10 [facility] 17:56:00 Medical Branch URINALYSIS 2022-05-10 Cherrie [facility] 16:49:00 Medical Branch URINE CULTURE 2022-05-10 Cherrie [facility] 16:49:00 Medical Branch URINALYSIS 2022-05-10 Cherrie [facility] 16:49:00 Medical Branch URINE CULTURE 2022-05-10 Cherrie [facility] 16:49:00 Medical Branch POCT GLUCOSE (AUTOMATED) 2022-05-10 Samgrace [place] [facility] 16:07:00 Medical Branch POCT GLUCOSE (AUTOMATED) 2022-05-10 Samgrace [place] [facility] 16:07:00 Medical Branch CONSENT/REFUSAL FOR 2022-05-10 Doctor Unassigned, No [facility] 12:33:55 Name [facility] CONSENT/REFUSAL FOR 2022-05-10 Doctor Unassigned, No [facility] DIAGNOSIS AND TREATMENT 12:33:55 Name Medical Branch ASSIGNMENT OF BENEFITS 2022-05-10 Doctor Unassigned, No [facility] [place] 12:08:09 Name Medical Branch ASSIGNMENT OF BENEFITS 2022-05-10 Doctor Unassigned, No [facility] [place] 12:08:09 Name Medical Branch XR ANKLE 3+ VW LEFT 2022-04-26 [facility] [place] 19:21:54 Medical Branch XR TIBIA FIBULA 2 VW 2022-04-26 [facility] LEFT 19:21:40 Medical Branch POCT GLUCOSE (AUTOMATED) 2022-04-16 Kevin Villalob[facility] [place] 17:51:00 Medical Branch POCT GLUCOSE (AUTOMATED) 2022-04-16 Kevin Villalob[facility] [place] 13:42:00 Medical Branch BASIC METABOLIC PANEL 2022-04-16 [facility] (NA, K, CL, CO2, 10:47:00 Medical Branch GLUCOSE, BUN, CREATININE, CA) CBC WITH DIFF 2022-04-16 Maria Guadalupe [facility] 10:47:00 Medical Branch POCT GLUCOSE (AUTOMATED) 2022-04-16 Kevin Villalob[facility] [place] 02:20:00 Medical Branch POCT GLUCOSE (AUTOMATED) 2022-04-16 Kevin Villalob[facility] [place] 00:20:00 Medical [facility] POCT GLUCOSE (AUTOMATED) 2022-04-15 Kevin Villalobos versity [facility] 17:39:00 Medical Branch POCT GLUCOSE (AUTOMATED) 2022-04-15 Kevin Villalobos versity [facility] 13:55:00 Medical Branch BASIC METABOLIC PANEL 2022-04-15 [facility] (NA, K, CL, CO2, 09:23:00 Medical Branch GLUCOSE, BUN, CREATININE, CA) CBC WITH DIFF 2022-04-15 Antoinette Edgar [facility] 09:23:00 Medical Branch POCT GLUCOSE (AUTOMATED) 2022-04-15 Kevin Villalobos versity [facility] 02:41:00 Medical Branch ASPIRATE OR ABSCESS 2022-04-15 [facility] [place] CULTURE(AEROBIC/ANAEROBI 00:52:00 Medical Branch C) POCT GLUCOSE (AUTOMATED) 2022-04-14 WilfredoKevin [facility] [place] 22:51:00 Medical Branch POCT GLUCOSE (AUTOMATED) 2022-04-14 [facility], Kevin [facility] [place] 18:04:00 Medical Branch POCT GLUCOSE (AUTOMATED) 2022-04-14 [facility] Kevin Ceja [facility] [place] 18:04:00 Medical Branch POCT GLUCOSE (AUTOMATED) 2022-04-14 [facility], Kevin [facility] [place] 14:21:00 Medical Branch POCT GLUCOSE (AUTOMATED) 2022-04-14 [facility], Kevin [facility] [place] 14:21:00 Medical Branch POCT GLUCOSE (AUTOMATED) 2022-04-14 [facility], Kevin [facility] [place] 03:34:00 Medical Branch POCT GLUCOSE (AUTOMATED) 2022-04-14 [facility], Kevin [facility] [place] 03:34:00 Medical Branch POCT GLUCOSE (AUTOMATED) 2022-04-14 [facility], Kevin [facility] [place] 00:05:00 Medical Branch POCT GLUCOSE (AUTOMATED) 2022-04-14 [facility], Kevin Ce[facility] [place] 00:05:00 Medical Branch FL TIME OR 2022-04-13 [facility] xas (NON-REPORTABLE) 23:25:25 Medical Branch FL TIME OR 2022-04-13 [facility] xas (NON-REPORTABLE) 23:25:25 Medical Branch TIBIOTALUS ARTHRODESIS 2022-04-13 Austin Dia [facility] 22:07:00 Medical Branch TIBIOTALUS ARTHRODESIS 2022-04-13 [facility] 22:07:00 Medical Branch HB ABO GROUPING 2022-04-13 Trudy Monk [facility] 18:05:00 Medical Branch HB ABO GROUPING 2022-04-13 Trudy Monk [facility] 18:05:00 Medical Branch POCT GLUCOSE (AUTOMATED) 2022-04-13 Sarai Faye [facility] 17:11:00 Medical Branch POCT GLUCOSE (AUTOMATED) 2022-04-13 Sarai F[facility] [place] 17:11:00 Medical Branch POCT GLUCOSE (AUTOMATED) 2022-04-13 Sarai Faye [facility] [place] 13:46:00 Medical Branch POCT GLUCOSE (AUTOMATED) 2022-04-13 aSrai Faye U niversity [facility] 13:46:00 Medical Branch BASIC METABOLIC PANEL 2022-04-13 [facility] (NA, K, CL, CO2, 11:05:00 Medical Branch GLUCOSE, BUN, CREATININE, CA) CBC WITH DIFF 2022-04-13 [facility] xas 11:05:00 Medical Branch BASIC METABOLIC PANEL 2022-04-13 [facility] (NA, K, CL, CO2, 11:05:00 Medical Branch GLUCOSE, BUN, CREATININE, CA) CBC WITH DIFF 2022-04-13 [facility] xas 11:05:00 Medical Branch URINALYSIS 2022-04-13 [facility] 03:40:00 Medical Branch URINALYSIS 2022-04-13 [facility] 03:40:00 Medical Branch POCT GLUCOSE (AUTOMATED) 2022-04-13 Sarai Faye U niversity [facility] 02:48:00 Medical Branch POCT GLUCOSE (AUTOMATED) 2022-04-13 Sarai Faye niversity [facility] 02:48:00 Medical Branch POCT GLUCOSE (AUTOMATED) 2022-04-12 Sarai Faye [facility] [place] 22:13:00 Medical Branch POCT GLUCOSE (AUTOMATED) 2022-04-12 Sarai Faye [facility] [place] 22:13:00 Medical Branch POCT GLUCOSE (AUTOMATED) 2022-04-12 Sarai Faye U niversity [facility] 18:23:00 Medical Branch POCT GLUCOSE (AUTOMATED) 2022-04-12 Sarai Faye [facility] [place] 18:23:00 Medical Branch POCT GLUCOSE (AUTOMATED) 2022-04-12 Sarai Faye [facility] 13:42:00 Medical Branch POCT GLUCOSE (AUTOMATED) 2022-04-12 Sarai Faye [facility] 13:42:00 Medical Branch LIPASE 2022-04-12 Faith Tejeda [facility] 10:24:00 Medical Branch LIPASE 2022-04-12 Faith Tejeda [facility] 10:24:00 Medical Branch LACTIC ACID WHOLE BLOOD 2022-04-12 Faith Tejeda Un [facility] 10:23:00 Medical Branch LACTIC ACID WHOLE BLOOD 2022-04-12 [facility] 10:23[facility]00 Medical Branch BLOOD CULTURE SCREEN 2022-04-12 Faith Tejeda [facility] 01:38:00 Medical Branch URINE CULTURE 2022-04-12 Faith Tejeda [facility] 01:38:00 Medical Branch BLOOD CULTURE SCREEN 2022-04-12 Faith Tejeda [facility] 01:38:00 Medical Branch URINE CULTURE 2022-04-12 Faith Tejeda [facility] 01:38:00 Medical Branch URINALYSIS 2022-04-12 Faith Tejeda [facility] 00:36:00 Medical Branch URINALYSIS 2022-04-12 Faith Tejeda [facility] 00:36:00 Medical Branch XR TIBIA FIBULA 2 VW 2022-04-11 Faith Tejeda [facility] LEFT 22:21:00 Medical Branch XR TIBIA FIBULA 2 VW 2022-04-11 Faith Tejeda [facility] LEFT 22:21:00 Medical Branch TROPONIN I 2022-04-11 Faith Tejeda [facility] 21:57:00 Medical Branch COMP. METABOLIC PANEL 2022-04-11 Faith Tejeda [facility] ([id number]) 21:57:00 Medical Branch CBC WITH DIFF 2022-04-11 Faith Tejeda [facility] 21:57:00 Medical Branch TROPONIN I 2022-04-11 Faith Tejeda [facility] 21:57:00 Medical Branch COMP. METABOLIC PANEL 2022-04-11 Faith Tejeda [facility] ([id number]) 21:57:00 Medical Branch CBC WITH DIFF 2022-04-11 Faith Tejeda [facility] 21:57:00 Medical Branch EKG-12 LEAD 2022-04-11 Faith Tejeda [facility] 21:46:42 Medical Branch EKG-12 LEAD 2022-04-11 Faith Tejeda [facility] 21:46:42 Medical Branch CONSENT/REFUSAL FOR 2022-04-11 Doctor Unassigned, No Univer sity [facility] DIAGNOSIS AND TREATMENT 20:49:55 Name Medical Branch CONSENT/REFUSAL FOR 2022-04-11 Doctor Unassigned, No [facility] 20:49:55 Name Medical Branch XR FOOT 3+ VW LEFT 2022-04-11 [facility], [facility] 20:18:11 Medical Branch XR ANKLE 3+ VW LEFT 2022-04-11 [facility], [facility] 20:17:33 Medical Branch [facility] PATIENT FINANCIAL 2022-04-11 Doctor Unassigned, No [facility] POLICY 19:27:31 Name Medical Branch FL TIME OR 2022-04-05 Brayan [facility] xa (NON-REPORTABLE) 19:33:36 [facility] FL TIME OR 2022-04-05 Yates [facility] xas (NON-REPORTABLE) 19:33:36 [facility] EXTERNAL FIXATOR REMOVAL 2022-04-05 Austin Dia [facility] OF LOWER EXTREMITY 18:46:00 [facility] POCT GLUCOSE (AUTOMATED) 2022-04-05 Austin Dia [facility] 16:34:00 [facility] POCT GLUCOSE (AUTOMATED) 2022-04-05 [facility] Austin [facility] 16:34:00 Medical Branch CONSENT/REFUSAL FOR 2022-04-05 Doctor Unassigned, No [facility] 14:36:46 Name Medical Branch CONSENT/REFUSAL FOR 2022-04-05 Doctor Unassigned, [facility] 14:36:46 Name [facility] ASSIGNMENT OF BENEFITS 2022-04-05 Doctor Unassigned, No [facility] [place] 14:36:05 Name Medical Branch ASSIGNMENT OF BENEFITS 2022-03-30 Doctor Unassigned, No [facility] [place] 20:37:36 Name Medical Branch ASSIGNMENT OF BENEFITS 2022-03-30 Doctor Unassigned, No [facility] [place] 20:37:36 Name Medical Branch CONSENT/REFUSAL FOR 2022-03-30 Doctor Unassigned, No [facility] DIAGNOSIS AND TREATMENT 20:37:21 Name Medical Branch CONSENT/REFUSAL FOR 2022-03-30 Doctor Unassigned, No [facility] DIAGNOSIS AND TREATMENT 20:37:21 Name Medical Branch EXTERNAL PROVIDER 2022-03-18 Doctor Unassigned, No [facility] RECORDS 06:01:00 Name Medical Branch XR FOOT 3+ VW RIGHT 2022-03-14 [facility] 22:58:53 Medical Branch XR ANKLE 3+ VW RIGHT 2022-03-14 Ashwin [facility] 22:58:34 Medical Branch XR ANKLE 3+ VW LEFT 2022-03-14 [facility] 22:02:20 Medical Branch XR FOOT 3+ VW LEFT 2022-03-14 [facility] 22:02:01 Medical Branch REFERRAL- 2022-03-10 Doctor Unassigned, No [facility] REQUEST/RESPONSE 06:01:00 Name Medical Branch HOME HEALTH 485 2022-02-28 Doctor Unassigned, No [facility] 06:01:00 Name Medical Branch [id number] 2022-02-27 MARTH01 [facility] 00:00:00 [facility] [id number] 2022-02-25 MARTH01 [facility] 00:00:00 [facility] [id number] 2022-02-17 HAFJA [facility] 00:00:00 [facility] [id number] 2022-02-17 HAFJA [facility] 00:00:00 [facility] [id number] 2022-02-09 DWEMA [facility] 00:00:00 [facility] [id number] 2022-01-11 CHEZU [facility] 00:00:00 [facility] [id number] 2022-01-11 CHEZU [facility] 00:00:00 [facility] [id number] 2022-01-11 CHEZU [facility] 00:00:00 [facility] [id number] 2022-01-11 CHEZU [facility] 00:00:00 [facility] [id number] 2022-01-10 CHEZU [facility] 00:00:00 [facility] [id number] 2022-01-05 HADENZEL [facility] 00:00:00 [facility] POCT GLUCOSE (AUTOMATED) 2021-12-30 [facility] 17:43:00 Medical Branch POCT GLUCOSE (AUTOMATED) 2021-12-30 [facility] 14:11:00 [facility] Branch POCT GLUCOSE (AUTOMATED) 2021-12-30 [facility] 03:06:00 Medical Branch POCT GLUCOSE (AUTOMATED) 2021-12-29 [facility] 22:18:00 Medical Branch POCT GLUCOSE (AUTOMATED) 2021-12-29 [facility] 17:46:00 Medical Branch BASIC METABOLIC PANEL 2021-12-29 [facility] (NA, K, CL, CO2, 16:45:00 Medical Branch GLUCOSE, BUN, CREATININE, CA) CBC WITH DIFF 2021-12-[address] [facility] xas 16:45:00 Medical Branch POCT GLUCOSE (AUTOMATED) 2021-12-29 [facility] 13:16:00 Medical Branch POCT GLUCOSE (AUTOMATED) 2021-12-29 [facility] 03:21:00 Medical Branch BLOOD CULTURE SCREEN 2021-12-29 [facility] 00:45:00 Medical Branch XR CHEST 1 VW 2021-12-[address] [facility] 00:05:00 Medical Branch POCT GLUCOSE (AUTOMATED) 2021-12-[address] [facility] 23:33:00 Medical Branch POCT GLUCOSE (AUTOMATED) 2021-12-28 [facility] 21:41:00 Medical Branch POCT GLUCOSE (AUTOMATED) 2021-12-[address] [facility] 17:09:00 Medical Branch POCT GLUCOSE (AUTOMATED) 2021-12-28 [facility] 13:17:00 Medical Branch POCT GLUCOSE (AUTOMATED) 2021-12-28 Lucila [facility] 03:02:00 Medical Branch URINALYSIS 2021-12-[address] [facility] 01:43:00 Medical Branch URINE CULTURE 2021-12-[address] [facility] x[facility] 01:43:00 Medical Branch POCT GLUCOSE (AUTOMATED) 2021-12-27 [facility] 22:00:00 Medical Branch POCT GLUCOSE (AUTOMATED) 2021-12-27 [facility] 17:38:00 Medical Branch BASIC METABOLIC PANEL 2021-12-27 [facility] (NA, K, CL, CO2, 16:26:00 Medical Branch GLUCOSE, BUN, CREATININE, CA) CBC WITH DIFF 2021-12-[address] [facility] xa 16:26:00 Medical Branch POCT GLUCOSE (AUTOMATED) 2021-12-27 [facility] 13:49:00 Medical Branch POCT GLUCOSE (AUTOMATED) 2021-12-27 [facility] 02:52:00 Medical Branch POCT GLUCOSE (AUTOMATED) 2021-12-26 [facility] 22:29:00 Medical Branch AMMONIA, PLASMA 2021-12-26 [facility] 18:59:00 Medical Branch POCT GLUCOSE (AUTOMATED) 2021-12-26 [facility] 17:29:00 Medical Branch POCT GLUCOSE (AUTOMATED) 2021-12-26 [facility] 13:29:00 Medical Branch POCT GLUCOSE (AUTOMATED) 2021-12-26 [facility] 03:27:00 Medical Branch POCT GLUCOSE (AUTOMATED) 2021-12-25 [facility] 22:49:00 Medical Branch POCT GLUCOSE (AUTOMATED) 2021-12-25 [facility] 21:32:00 Medical Branch POCT GLUCOSE (AUTOMATED) 2021-12-25 [facility] 17:47:00 Medical Branch POCT GLUCOSE (AUTOMATED) 2021-12-25 [facility] 13:39:00 Medical Branch BASIC METABOLIC PANEL 2021-12-25 Lavern Alicia [facility] (NA, K, CL, CO2, 10:17:00 Medical Branch GLUCOSE, BUN, CREATININE, CA) CBC WITH DIFF 2021-12-25 Lavern Alicia [facility] [place] 10:17:00 Medical Branch POCT GLUCOSE (AUTOMATED) 2021-12-25 [facility] 03:07:00 Medical Branch POCT GLUCOSE (AUTOMATED) 2021-12-24 [facility] 23:08:[address] ANKLE LEFT W CONTRAST 2021-12-24 Medardo Schofieldwsa [facility] 20:24:09 Medical Branch POCT GLUCOSE (AUTOMATED) 2021-12-24 [facility] 17:34:00 [facility] Branch WOUND/ASPIRATE OR 2021-12-24 [facility] ABSCESS CULTURE 14:29:00 Medical Branch WOUND CULTURE 2021-12-24 [facility] 14:29:00 Medical Branch POCT GLUCOSE (AUTOMATED) 2021-12-24 [facility] 13:42:00 Medical Branch POCT GLUCOSE (AUTOMATED) 2021-12-24 [facility] 03:12:00 Medical Branch POCT GLUCOSE (AUTOMATED) 2021-12-23 [facility] 22:07:00 Medical Branch POCT GLUCOSE (AUTOMATED) 2021-12-23 [facility] 22:07:00 Medical Branch POCT GLUCOSE (AUTOMATED) 2021-12-23 [facility] 17:54:00 Medical Branch POCT GLUCOSE (AUTOMATED) 2021-12-23 [facility] 17:54:00 Medical Branch MR FOOT [facility] W [facility] 17:34:49 Medical Branch MR FOOT LEFT W WO 2021[facility]12-[facility] 17:34:49 Medical Branch POCT GLUCOSE (AUTOMATED) 2021-12-23 [facility] 13:48:00 Medical Branch POCT GLUCOSE (AUTOMATED) 2021-12-23 [facility] 13:48:00 Medical Branch BASIC METABOLIC PANEL 2021-12-23 [facility] (NA, K, CL, CO2, 10:03:00 Medical Branch GLUCOSE, BUN, CREATININE, CA) CBC WITH DIFF 2021-12-23 [facility] ex 10:03:00 Medical Branch BASIC METABOLIC PANEL 2021-12-23 [facility] (NA, K, CL, CO2, 10:03:00 Medical Branch GLUCOSE, BUN, CREATININE, CA) CBC WITH DIFF 2021-12-23 [facility] ex 10:03:00 Medical Branch POCT GLUCOSE (AUTOMATED) 2021-12-23 [facility] 02:59:00 Medical Branch POCT GLUCOSE (AUTOMATED) 2021-12-23 [facility] 02:59:00 Medical Branch POCT GLUCOSE (AUTOMATED) 2021-12-22 [facility] 22:42:00 Medical Branch POCT GLUCOSE (AUTOMATED) 2021-12-22 [facility] 22:42:00 Medical Branch XR FOOT 3+ VW LEFT 2021-12-22 [facility] 19:50:00 Medical Branch XR FOOT 3+ VW LEFT [facility] 19:[facility] Medical Branch FUNGUS (ROUTINE) CULTURE 2021[facility]12-[facility] 18:35:00 Medical [facility]12-[facility]OBIC/ANAEROBI 18:35:00 Medical Branch C) FUNGUS (ROUTINE) CULTURE 2021-12-22 Shalini [facility] 18:35:00 Medical Branch TISSUE 2021-12-22 [facility]/ANAEROBI 18:35:00 Medical Branch C) POCT GLUCOSE (AUTOMATED) 2021-12-22 Lucila [facility] 17:38:00 Medical Branch POCT GLUCOSE (AUTOMATED) 2021-12-22 Lucila [facility] 17:38:00 Medical Branch INCISION AND DRAINAGE OF 2021-12-22 Al, [facility] [place] [facility] 17:30:00 Medical Branch INCISION AND DRAINAGE OF 2021-12-22 Al, [facility] ABSCESS 17:30:00 Medical Branch POCT GLUCOSE (AUTOMATED) 2021-12-22 [facility] 13:54:00 Medical Branch POCT GLUCOSE (AUTOMATED) 2021-12-22 [facility] 13:54:00 Medical Branch POCT GLUCOSE (AUTOMATED) 2021-12-22 [facility] 02:50:00 Medical Branch POCT GLUCOSE (AUTOMATED) 2021-12-22 [facility] 02:50:00 Medical Branch POCT GLUCOSE (AUTOMATED) 2021-12-22 [facility] 00:03:00 Medical Branch POCT GLUCOSE (AUTOMATED) 2021-12-22 [facility] 00:03:00 Medical Branch POCT GLUCOSE (AUTOMATED) 2021-12-21 [facility] 22:11:00 Medical Branch POCT GLUCOSE (AUTOMATED) 2021-12-21 [facility] 22:11:00 Medical Branch OSMOLALITY URINE 2021-12-21 [facility] 19:39:00 Medical Branch SODIUM, URINE RANDOM 2021-12-21 [facility] 19:39:00 Medical Branch OSMOLALITY URINE 2021-12-21 [facility] 19:39:00 Medical Branch SODIUM, URINE RANDOM 2021-12-21 Ro [facility] 19:39:00 Medical Branch POCT GLUCOSE (AUTOMATED) 2021-12-21 [facility] 17:19:00 Medical Branch POCT GLUCOSE (AUTOMATED) 2021-12-21 Lucila [facility] 17:19:00 Medical Branch POCT GLUCOSE (AUTOMATED) 2021-12-21 [facility] 15:26:00 Medical Branch POCT GLUCOSE (AUTOMATED) 2021-12-21 [facility] 15:26:00 Medical Branch POCT GLUCOSE (AUTOMATED) 2021-12-21 [facility] 13:23:00 Medical Branch POCT GLUCOSE (AUTOMATED) 2021-12-21 [facility] 13:23:00 Medical Branch C-REACTIVE PROTEIN 2021-12-21 [facility] 11:26:00 Medical Branch BASIC METABOLIC PANEL 2021-12-21 [facility] (NA, K, CL, CO2, 11:26:00 Medical Branch GLUCOSE, BUN, CREATININE, CA) SEDIMENTATION RATE 2021[facility]12-21 [facility] 11:26:00 Medical Branch CBC WITH DIFF 2021-12-[address] [facility] 11:26:00 Medical Branch C-REACTIVE PROTEIN 2021-12-21 [facility] 11:26:00 Medical Branch BASIC METABOLIC PANEL 2021-12-21 [facility] (NA, K, CL, CO2, 11:26:00 Medical Branch GLUCOSE, BUN, CREATININE, CA) SEDIMENTATION RATE 2021-12-21 [facility] 11:26:00 Medical Branch CBC WITH DIFF 2021-12-[address] [facility] 11:26:00 Medical Branch POCT GLUCOSE (AUTOMATED) 2021-12-21 [facility] 02:58:00 Medical Branch POCT GLUCOSE (AUTOMATED) 2021-12-21 [facility] 02:58:00 Medical Branch POCT GLUCOSE (AUTOMATED) 2021-12-20 Keri Bansal [facility] 22:37:00 Medical Branch POCT GLUCOSE (AUTOMATED) 2021-12-20 Keri Bansal [facility] 22:37:00 Medical Branch XR FOOT 3+ VW LEFT 2021-12-20 [facility] 20:36:00 Medical Branch XR FOOT 3+ VW LEFT 2021-12-20 [facility] 20:36:00 Medical Branch POCT GLUCOSE (AUTOMATED) 2021-12-20 [facility]al [facility] 18:16:00 Medical Branch POCT GLUCOSE (AUTOMATED) 2021-12-20 K[facility]al [facility] 18:16:00 Medical Branch POCT GLUCOSE (AUTOMATED) 2021-12-20 [facility]al [facility] 13:37:00 Medical Branch POCT GLUCOSE (AUTOMATED) 2021-12-20 [facility]al [facility] 13:37:00 Medical Branch BASIC METABOLIC PANEL 2021-12-20 [facility] (NA, K, CL, CO2, 11:03:00 Medical Branch GLUCOSE, BUN, CREATININE, CA) CBC WITHOUT DIFF 2021-12-20 [facility] exas 11:03:00 Medical Branch BASIC METABOLIC PANEL 2021-12-20 [facility] (NA, K, CL, CO2, 11:03:00 Medical Branch GLUCOSE, BUN, CREATININE, CA) CBC WITHOUT DIFF 2021-12-20 [facility] ex 11:03:00 Medical Branch POCT GLUCOSE (AUTOMATED) 2021-12-20 Keri Bansal [facility] 03:26:00 Medical Branch POCT GLUCOSE (AUTOMATED) 2021-12-20 Keri [facility]al [facility] 03:26:00 Medical Branch POCT GLUCOSE (AUTOMATED) 2021-12-19 [facility]ansal [facility] 23:21:00 Medical Branch POCT GLUCOSE (AUTOMATED) 2021-12-19 K[facility]ansal [facility] 23:21:00 Medical Branch POCT GLUCOSE (AUTOMATED) 2021-12-19 Keri [facility]ansal [facility] 18:02:00 Medical Branch POCT GLUCOSE (AUTOMATED) 2021-12-19 Keri [facility]ansal [facility] 18:02:00 Medical Branch POCT GLUCOSE (AUTOMATED) 2021-12-19 [facility]ansal [facility] 14:04:00 Medical Branch POCT GLUCOSE (AUTOMATED) 2021-12-19 Keri Bansal [facility] ity [facility] 14:04:00 Medical Branch BASIC METABOLIC PANEL 2021-12-19 [facility] (NA, K, CL, CO2, 10:36:00 Medical Branch GLUCOSE, BUN, CREATININE, CA) CBC WITH DIFF 2021-12-19 [facility] 10:36:00 Medical Branch MRSA / MSSA SCREEN BY 2021-12-19 [facility] PCR, NARES 10:36:00 Medical Branch BASIC METABOLIC PANEL 2021-12-19 [facility] (NA, K, CL, CO2, 10:36:00 Medical Branch GLUCOSE, BUN, CREATININE, CA) CBC WITH DIFF 2021-12-19 [facility] 10:36:00 Medical Branch MRSA / MSSA SCREEN BY 2021-12-19 [facility] PCR, NARES 10:36:00 Medical Branch POCT GLUCOSE (AUTOMATED) 2021-12-19 Manfred Bansala H [facility] 01:54:00 Medical Branch POCT GLUCOSE (AUTOMATED) 2021-12-19 Rolf Keri H [facility] 01:54:00 Medical Branch POCT GLUCOSE (AUTOMATED) 2021-12-18 Kaley Bansallpa H [facility] 22:32:00 Medical Branch POCT GLUCOSE (AUTOMATED) 2021-12-18 oRlf Keri H [facility] 22:32:00 Medical Branch COMP. METABOLIC PANEL 2021-12-18 [facility] ([id number] 20:36:00 Medical Branch CBC WITH DIFF 2021-12-18 [facility] 20:36[facility]00 [facility] Branch COMP. METABOLIC PANEL 2021-12-18 [id number] 20:36:00 Medical Branch CBC WITH DIFF 2021-12-18 [facility] 20:36:00 Medical Branch CONSENT/REFUSAL FOR 2021-12-18 Doctor Unassigned, No [facility] DIAGNOSIS AND TREATMENT 18:08:15 Name Medical Branch CONSENT/REFUSAL FOR 2021-12-18 Doctor Unassigned, No [facility] DIAGNOSIS AND TREATMENT 18:08:15 Name [facility] POCT GLUCOSE (AUTOMATED) 2021-12-17 [facility] 20:40:00 [facility] NM MYOCARDIUM PERFUSION 2021-12-17 Dave Toussaint [facility] STRESS AND REST 20:00:00 [facility] POCT GLUCOSE (AUTOMATED) 2021-12-17 [facility] 12:47:00 [facility] BASIC METABOLIC PANEL 2021-12-17 [facility] (NA, K, CL, CO2, 10:52:00 Medical Branch GLUCOSE, BUN, CREATININE, CA) CBC WITHOUT DIFF 2021-12-17 [facility] 10:52:00 [facility] POCT GLUCOSE (AUTOMATED) 2021-12-17 [facility] 05:29:00 [facility] POCT GLUCOSE (AUTOMATED) 2021-12-17 [facility] 02:08:00 [facility] POCT GLUCOSE (AUTOMATED) 2021-12-16 [facility] 21:30:00 [facility] POCT GLUCOSE (AUTOMATED) 2021-12-16 [facility] 16:12:00 [facility] TRANSTHORACIC ECHO (TTE) 2021-[facility]-16 [facility]PLETE [facility]/ CONTRAST 14:24:17 [facility] POCT GLUCOSE (AUTOMATED) 2021[facility]12[facility] 12:[facility]00 [facility] TROPONIN I [facility] BASIC METABOLIC PANEL 2021-12-16 [facility] (NA, K, CL, CO2, 10:21:00 [facility] GLUCOSE, BUN, CREATININE, CA) LIPID PANEL 2021-12-16 Yates, [facility] [place] ([id number])(TOTAL 10:21:00 Medical Branch CHOLESTEROL, TRIGLYCERIDES, HDL) CBC WITHOUT DIFF 2021-12-16 Brayan [facility] exas 10:21:00 [facility] [place] BLOOD CULTURE SCREEN 2021-12-16 Luther, [facility] 05:11:00 [facility] BLOOD CULTURE SCREEN 2021-12-16 Ashkan [facility] 04:58:00 [facility] TROPONIN I 2021-12-16 [facility] 04:58[facility]00 [facility] MRSA / MSSA SCREEN BY [facility] 04:58:00 [facility] POCT GLUCOSE (AUTOMATED) 2021-12-16 [facility] 04:07:00 [facility] URINALYSIS 2021-12-16 Ashkan [facility] x[facility] 03:42:00 Medical Branch HB ABO GROUPING 2021-12-16 Noel [facility] 03:28:00 Medical Branch XR ANKLE <3 VW LEFT [facility] 03:23:00 Medical Branch XR FOOT <3 VW LEFT 2021-12-16 Noel [facility] 03:23:00 Medical [facility] POCT GLUCOSE (AUTOMATED) 2021-12-16 Brayan [facility] 02:47:00 Medical Branch BETA HYDROXY-BUTYRATE 2021-12-16 Ashkan [facility] 01:07:00 Medical [facility] TROPONIN I 2021-12-16 Ashkan [facility] x[facility] 01:07:00 Medical Branch THYROID STIMULATING 2021-12-[facility] 01:07[facility]00 [facility] COMP. METABOLIC PANEL 2021-12-16 Ashkan [facility] ([id number]) 01:07:00 [facility] CBC WITH DIFF 2021-12-16 Ashkan [facility] 01:07:00 [facility] N-TERMINAL PRO-BNP 2021-12-16 Ashkan [facility] 01:07:00 Medical Branch ASSIGNMENT OF BENEFITS 2021-12-16 Doctor Unassigned, No Uni versity [facility] 00:50:57 Name Medical Branch XR CHEST 1 VW 2021-12-16 Ashkan [facility] xa 00:43:00 Medical [facility] POCT GLUCOSE (AUTOMATED) 2021-12-16 Doctor Unassigned, No U niversity [facility] 00:10:00 Name Medical Branch HB ECG ROUTINE & RHYTHM 2021-12-16 Aquilino [facility] [place] STR[facility] 00:07:51 [facility] CONSENT/REFUSAL FOR 2021-12-15 Doctor Unassigned, No [facility] 23:52:24 Name Medical Branch POCT GLUCOSE (AUTOMATED) 2021-12-14 Deng, [facility] 20:46:00 [facility] POCT GLUCOSE (AUTOMATED) 2021-12-14 Deng, Valentina [facility] [place] 16:33:00 [facility] POCT GLUCOSE (AUTOMATED) 2021-12-14 Deng, Valentina [facility] [place] 13:04:00 [facility] POCT GLUCOSE (AUTOMATED) 2021-12-14 Deng, Valentina [facility] [place] 01:52:00 [facility] POCT GLUCOSE (AUTOMATED) 2021-12-13 Deng, Valentina [facility] [place] 20:22:00 [facility] POCT GLUCOSE (AUTOMATED) 2021-12-13 Deng, Valentina [facility] [place] 16:20:00 [facility] POCT GLUCOSE (AUTOMATED) 2021-12-13 Deng, Valentina [facility] [place] 13:01:00 [facility] POCT GLUCOSE (AUTOMATED) 2021-12-13 Deng, Valentina [facility] [place] 01:47:00 [facility] POCT GLUCOSE (AUTOMATED) 2021-12-12 Deng, Valentina [facility] [place] 22:20:00 Medical [facility] URINALYSIS 2021-12-[address] [facility] 20:02:00 Medical Branch POCT GLUCOSE (AUTOMATED) 2021-12-12 Deng, Valentina [facility] [place] 18:48:00 [facility] POCT GLUCOSE (AUTOMATED) 2021-12-12 Deng, Valentina [facility] [place] 13:26:00 Medical [facility] CBC WITH DIFF 2021-12-12 [facility] xa 08:50:00 Medical Branch POCT GLUCOSE (AUTOMATED) 2021-12-12 Deng, Valentina [facility] [place] 01:48:00 [facility] POCT GLUCOSE (AUTOMATED) 2021-12-11 Deng, Valentina [facility] [place] 22:45:00 [facility] POCT GLUCOSE (AUTOMATED) 2021-12-11 Deng, Valentina [facility] [place] 17:40:00 [facility] POCT GLUCOSE (AUTOMATED) 2021-12-11 Deng, Valentina [facility] [place] 14:07:00 Medical [facility] HB ABO GROUPING 2021-12-11 Marcos [facility] 11:45:00 Medical Branch CBC WITHOUT DIFF 2021-12-11 Kerline [facility] 11:43:00 Medical Branch POCT GLUCOSE (AUTOMATED) 2021-12-11 Deng, Valentina [facility] [place] 03:50:00 Medical [facility] CBC WITHOUT DIFF 2021-12-10 Kerline [facility] 23:05:00 Medical Branch POCT GLUCOSE (AUTOMATED) 2021-12-10 Deng, Valentina [facility] [place] 22:09:00 [facility] POCT GLUCOSE (AUTOMATED) 2021-12-10 Deng, Valentina [facility] [place] 20:48:00 Medical Branch CEDRICK EXTREMITY SINGLE 2021-12-10 Kerline [facility] LEVEL - BY VASCULAR LAB 20:42:44 Medical Branch POCT GLUCOSE (AUTOMATED) 2021-12-10 Deng, Valentina [facility] [place] 16:33:00 [facility] POCT GLUCOSE (AUTOMATED) 2021-12-10 Deng, Valentina [facility] [place] 13:16:00 Medical [facility] POCT GLUCOSE (AUTOMATED) 2021-12-10 Deng, Valentina [facility] [place] 03:06:00 Medical [facility] POCT GLUCOSE (AUTOMATED) 2021-12-09 Deng, Valentina [facility] [place] 23:05:00 [facility] POCT GLUCOSE (AUTOMATED) 2021-12-09 Deng, Valentina [facility] [place] 23:05:00 [facility] POCT GLUCOSE (AUTOMATED) 2021-12-09 Deng, Valentina [facility] [place] 19:10:00 [facility] POCT GLUCOSE (AUTOMATED) 2021-12-09 Deng, Valentina [facility] [place] 19:10:00 Medical [facility] CBC WITHOUT DIFF 2021-12-09 Kerline [facility] 15:24:00 Medical Branch SEDIMENTATION RATE 2021-12-09 Kerline [facility] 15:24:00 Medical Branch C-REACTIVE PROTEIN 2021-12-09 Marcos Churchill [facility] 15:24:00 Medical Branch CBC WITHOUT DIFF 2021-12-[address] [facility] ex[place] 15:24:00 Medical Branch SEDIMENTATION RATE 2021-12-09 Kerline [facility] 15:24:00 Medical Branch POCT GLUCOSE (AUTOMATED) 2021-12-09 Deng, Valentina [facility] [place] 12:27:00 Medical [facility] POCT GLUCOSE (AUTOMATED) 2021-12-09 Deng, Valentina [facility] [place] 12:27:00 Medical [facility] POCT GLUCOSE (AUTOMATED) 2021-12-09 Deng, Valentina [facility] [place] 02:04:00 Medical [facility] POCT GLUCOSE (AUTOMATED) 2021-12-09 Deng, Valentina [facility] [place] 02:04:00 Medical [facility] POCT GLUCOSE (AUTOMATED) 2021-12-08 Deng, Valentina [facility] [place] 21:52:00 Medical [facility] POCT GLUCOSE (AUTOMATED) 2021-12-08 Deng, Valentina [facility] [place] 21:52:00 Medical Branch FUNGUS (ROUTINE) CULTURE 2021-12-08 Deng, Valentina [facility] [place] 16:25:00 Medical Branch BODY FLUID 2021-12-08 Deng, Valentina A [facility] CULTURE(AEROBIC/ANAEROBI 16:25:00 Medical Branch C) FUNGUS (ROUTINE) CULTURE 2021-12-08 Deng, Valentina [facility] [place] 16:25:00 [facility] BODY FLUID 2021-12-08 Deng, Valentina A [facility] CULTURE(AEROBIC/ANAEROBI 16:25:00 Medical Branch C) DEBRIDEMENT LOWER 2021-12-08 Deng, Valentina A [facility] EXTREMITY 15:13:00 Medical Branch DEBRIDEMENT LOWER 2021-12-08 Deng, Valentina A [facility] EXTREMITY 15:13:00 Medical Branch POCT GLUCOSE (AUTOMATED) 2021-12-08 Deng, Valentina [facility] [place] 12:46:00 [facility] POCT GLUCOSE (AUTOMATED) 2021-12-08 Deng, Valentina [facility] [place] 12:46:00 [facility] ABORH CONFIRMATION (LAB 2021-12-08 Konrad [facility] ONLY) 08:51:00 Medical Branch ABORH CONFIRMATION (LAB 2021-12-[address] [facility] ONLY) 08:51:00 Medical Branch COMP. METABOLIC PANEL 2021-12-08 [facility] ([id number]) 08:30:00 Medical Branch CBC WITH DIFF 2021-12-08 [facility] [place] 08:30:00 Medical Branch COMP. METABOLIC PANEL 2021-12-08 [facility] ([id number]) 08:30:00 Medical Branch CBC WITH DIFF 2021-12-08 [facility] [place] 08:30:00 Medical Branch HB ABO GROUPING 2021-12-08 Brayan [facility] xas 08:29:00 Medical Branch HB ABO GROUPING 2021-12-08 Brayan [facility]as 08:29:00 Medical Branch VANCOMYCIN TROUGH 2021-12-08 [facility] 05:15:00 [facility] VANCOMYCIN TROUGH 2021[facility]12-08 [facility] 05:[facility] POCT GLUCOSE (AUTOMATED) 2021-12-08 Deng, Valentina [facility] [place] 01:55:00 [facility] POCT GLUCOSE (AUTOMATED) 2021-12-08 Deng, Valentina [facility] [place] 01:55:00 Medical [facility] POCT GLUCOSE (AUTOMATED) 2021-12-07 Deng, Valentina [facility] [place] 22:39:00 Medical Branch POCT GLUCOSE (AUTOMATED) 2021-12-07 Deng, Valentina [facility] [place] 22:39:00 Medical [facility] POCT GLUCOSE (AUTOMATED) 2021-12-07 Deng, Valentina [facility] [place] 20:20:00 Medical Branch POCT GLUCOSE (AUTOMATED) 2021-12-07 Deng, Valentina [facility] [place] 20:20:00 Medical [facility] POCT GLUCOSE (AUTOMATED) 2021-12-07 Deng, Valentina [facility] [place] 16:17:00 Medical Branch POCT GLUCOSE (AUTOMATED) 2021-12-07 Deng, Valentina [facility] [place] 16:17:00 Medical Branch POCT GLUCOSE (AUTOMATED) 2021-12-07 Deng, Valentina [facility] [place] 12:25:00 Medical Branch POCT GLUCOSE (AUTOMATED) 2021-12-07 Deng, Valentina [facility] [place] 12:25:00 Medical Branch POCT GLUCOSE (AUTOMATED) 2021-12-07 Deng, Valentina [facility] [place] 02:03:00 Medical Branch POCT GLUCOSE (AUTOMATED) 2021-12-07 Deng, Valentina [facility] [place] 02:03:00 Medical [facility] POCT GLUCOSE (AUTOMATED) 2021-12-06 Deng, Valentina [facility] [place] 22:25:00 Medical Branch POCT GLUCOSE (AUTOMATED) 2021-12-06 Deng, Valentina [facility] [place] 22:25:00 Medical [facility] POCT GLUCOSE (AUTOMATED) 2021-12-06 Deng, Valentina [facility] [place] 22:25:00 Medical [facility] POCT GLUCOSE (AUTOMATED) 2021-12-06 Deng, Valentina [facility] [place] 22:25:00 Medical Branch BASIC METABOLIC PANEL 2021-12-06 Kerline [facility] (NA, K, CL, CO2, 20:57:00 Medical Branch GLUCOSE, BUN, CREATININE, CA) CBC WITHOUT DIFF 2021-12-06 Kerline [facility] [place] 20:57:00 Medical Branch BASIC METABOLIC PANEL 2021-12-06 Kerline [facility] (NA, K, CL, CO2, 20:57:00 Medical Branch GLUCOSE, BUN, CREATININE, CA) CBC WITHOUT DIFF 2021-12-06 Kerline [facility] [place] 20:57:00 Medical Branch BASIC METABOLIC PANEL 2021-12-06 Kerline [facility] (NA, K, CL, CO2, 20:57:00 Medical Branch GLUCOSE, BUN, CREATININE, CA) CBC WITHOUT DIFF 2021-12-06 Kerline [facility] [place] 20:57:00 Medical Branch BASIC METABOLIC PANEL 2021-12-06 Kerline [facility] (NA, K, CL, CO2, 20:57:00 Medical Branch GLUCOSE, BUN, CREATININE, CA) CBC WITHOUT DIFF 2021-12-06 Kerline [facility] [place] 20:57:00 Medical Branch POCT GLUCOSE (AUTOMATED) 2021-12-06 Deng, Valentina A [facility] [place] 16:22:00 Medical Branch POCT GLUCOSE (AUTOMATED) 2021-12-06 Deng, Valentina [facility] [place] 16:22:00 Medical Branch POCT GLUCOSE (AUTOMATED) 2021-12-06 Deng, Valentina A [facility] [place] 16:22:00 Medical Branch POCT GLUCOSE (AUTOMATED) 2021-12-06 Deng, Valentina [facility] [place] 16:22:00 Medical Branch POCT GLUCOSE (AUTOMATED) 2021-12-06 Deng, Valentina [facility] [place] 12:28:00 Medical [facility] POCT GLUCOSE (AUTOMATED) 2021-12-06 Deng, Valentina A [facility] [place] 12:28:00 Medical [facility] POCT GLUCOSE (AUTOMATED) 2021-12-06 Deng, Valentina [facility] [place] 12:28:00 Medical [facility] POCT GLUCOSE (AUTOMATED) 2021-12-06 Deng, Valentina A [facility] [place] 12:28:00 Medical [facility] POCT GLUCOSE (AUTOMATED) 2021-12-06 Deng, Valentina [facility] [place] 03:23:00 Medical Branch POCT GLUCOSE (AUTOMATED) 2021-12-06 Deng, Valentina [facility] [place] 03:23:00 Medical [facility] POCT GLUCOSE (AUTOMATED) 2021-12-06 Deng, Valentina A [facility] [place] 03:23:00 Medical [facility] POCT GLUCOSE (AUTOMATED) 2021-12-06 Deng, Valentina [facility] [place] 03:23:00 Medical Branch ASPIRATE OR ABSCESS 2021-12-05 Tony Adames [facility] CULTURE(AEROBIC/ANAEROBI 22:34:00 Medical Branch C) FUNGUS (ROUTINE) CULTURE 2021-12-05 [facility] [place] 22:34:00 Medical Branch ASPIRATE OR ABSCESS 2021-12-05 Zacarias [facility] CULTURE(AEROBIC/ANAEROBI 22:34:00 Medical Branch C) FUNGUS (ROUTINE) CULTURE 2021-12-05 Tony Adames [facility] [place] 22:34:00 Medical [facility] ASPIRATE OR ABSCESS 2021-12-05 oTny Adames [facility] CULTURE(AEROBIC/ANAEROBI 22:34:00 Medical Branch C) FUNGUS (ROUTINE) CULTURE 2021-12-05 Tony [facility]ames [facility] [place] 22:34:00 Medical Branch ASPIRATE OR ABSCESS 2021-12-05 [facility] [place] CULTURE(AEROBIC/ANAEROBI 22:34:00 Medical Branch C) FUNGUS (ROUTINE) CULTURE 2021-12-05 Zacarias, [facility] [place] 22:34:00 Medical Branch DEBRIDEMENT LOWER 2021-12-05 [facility] EXTREMITY 21:03:00 Medical Branch WOUND VAC PLACEMENT 2021-12-05 [facility] [place] 21:03:00 Medical Branch DEBRIDEMENT LOWER 2021-12-05 [facility] EXTREMITY 21:03:00 Medical Branch WOUND VAC PLACEMENT 2021-12-05 [facility] [place] 21:03:00 Medical Branch POCT GLUCOSE (AUTOMATED) 2021-12-05 Deng, Valentina A [facility] [place] 16:36:00 Medical Branch POCT GLUCOSE (AUTOMATED) 2021-12-05 Deng, Valentina A [facility] [place] 16:36:00 Medical [facility] POCT GLUCOSE (AUTOMATED) 2021-12-05 Deng, Valentina [facility] [place] 16:36:00 Medical [facility] POCT GLUCOSE (AUTOMATED) 2021-12-05 Deng, Valentina A [facility] [place] 16:36:00 Medical [facility] POCT GLUCOSE (AUTOMATED) 2021-12-05 Deng, Valentina A [facility] [place] 13:03:00 Medical [facility] POCT GLUCOSE (AUTOMATED) 2021-12-05 Deng, Valentina [facility] [place] 13:03:00 Medical Branch POCT GLUCOSE (AUTOMATED) 2021-12-05 Deng, Valentina A [facility] [place] 13:03:00 Medical [facility] POCT GLUCOSE (AUTOMATED) 2021-12-05 Deng, Valentina [facility] [place] 13:03:00 Medical Branch COMP. METABOLIC PANEL 2021-12-05 [facility][id number][facility] 10:22:00 Medical Branch CBC WITH DIFF 2021-12-05 Georgi [facility] [place] 10:22:00 Medical Branch COMP. METABOLIC PANEL 2021-12-05 [facility] ([id number][facility] 10:22:00 Medical Branch CBC WITH DIFF 2021-12-05 Laureano, [facility] 10:22:00 Medical Branch COMP. METABOLIC PANEL 2021-12-05 [facility] ([id number]) 10:22:00 Medical Branch CBC WITH DIFF 2021-12-05 Laureano, [facility] xa 10:22:00 Medical Branch COMP. METABOLIC PANEL 2021-12-05 [facility] ([id number]) 10:22:00 Medical Branch CBC WITH DIFF 2021-12-05 Laureano [facility] xa 10:22:00 Medical Branch POCT GLUCOSE (AUTOMATED) 2021-12-05 Deng, Valentina A [facility] [place] 01:57:00 Medical [facility] POCT GLUCOSE (AUTOMATED) 2021-12-05 Deng, Valentina A [facility] [place] 01:57:00 Medical [facility] POCT GLUCOSE (AUTOMATED) 2021-12-05 Deng, Valentina A [facility] [place] 01:57:00 Medical [facility] POCT GLUCOSE (AUTOMATED) 2021-12-05 Deng, Valentina A [facility] [place] 01:57:00 Medical Branch LACTIC ACID WHOLE BLOOD 2021-12-04 Georgi, Jessica [facility] [place] 23:02:00 [facility] LACTIC ACID WHOLE BLOOD 2021-12-04 Georgi, Jessica [facility] [place] 23:02:00 Medical [facility] LACTIC ACID WHOLE BLOOD 2021-12-04 Georgi, Jessica [facility] [place] 23:02:00 Medical Branch LACTIC ACID WHOLE BLOOD 2021-12-04 Laureano, [facility] [place] 23:02:00 Medical [facility] POCT GLUCOSE (AUTOMATED) 2021-12-04 Deng, Valentina [facility] [place] 22:07:00 Medical [facility] POCT GLUCOSE (AUTOMATED) 2021-12-04 Deng, Valentina A [facility] [place] 22:07:00 Medical [facility] POCT GLUCOSE (AUTOMATED) 2021-12-04 Deng, Valentina A [facility] [place] 22:07:00 Medical [facility] POCT GLUCOSE (AUTOMATED) 2021-12-04 Deng, Valentina [facility] [place] 22:07:00 Medical Branch LACTIC ACID WHOLE BLOOD 2021-12-04 Javed [facility] [place] 18:05:00 Medical Branch LACTIC ACID WHOLE BLOOD 2021-12-04 Richard [facility] ty [facility] 18:05:00 Medical Branch LACTIC ACID WHOLE BLOOD 2021-12-04 Richard, [facility] [place] 18:05:00 Medical Branch LACTIC ACID WHOLE BLOOD 2021-12-04 Rcihard, [facility] [place] 18:05:00 Medical Branch POCT GLUCOSE (AUTOMATED) 2021-12-04 Deng, Valentina [facility] [place] 18:03:00 [facility] POCT GLUCOSE (AUTOMATED) 2021-12-04 Deng, Valentina A [facility] [place] 18:03:00 Medical [facility] POCT GLUCOSE (AUTOMATED) 2021-12-04 Deng, Valentina [facility] [place] 18:03:00 Medical [facility] POCT GLUCOSE (AUTOMATED) 2021-12-04 Deng, Valentina [facility] [place] 18:03:00 Medical [facility] POCT GLUCOSE (AUTOMATED) 2021-12-04 Deng, Valentina [facility] [place] 15:57:00 Medical [facility] POCT GLUCOSE (AUTOMATED) 2021-12-04 Deng, Valentina [facility] [place] 15:57:00 Medical [facility] POCT GLUCOSE (AUTOMATED) 2021-12-04 Deng, Valentina [facility] [place] 15:57:00 Medical [facility] POCT GLUCOSE (AUTOMATED) 2021-12-04 Deng, Valentina A [facility] [place] 15:57:00 Medical [facility] POCT GLUCOSE (AUTOMATED) 2021-12-04 Deng, Valentina [facility] [place] 13:22:00 Medical Branch POCT GLUCOSE (AUTOMATED) 2021-12-04 Deng, Valentina [facility] [place] 13:22:00 Medical [facility] POCT GLUCOSE (AUTOMATED) 2021-12-04 Deng, Valentina [facility] [place] 13:22:00 Medical [facility] POCT GLUCOSE (AUTOMATED) 2021-12-04 Deng, Valentina [facility] [place] 13:22:00 Medical Branch VANCOMYCIN TROUGH 2021-12-04 Deng, Valentina A [facility] 08:11:00 Medical Branch POCT GLUCOSE (AUTOMATED) 2021-12-04 Deng, Valentina [facility] [place] 08:11:00 Medical Branch VANCOMYCIN TROUGH 2021-12-04 Deng, Valentina [facility] [place] 08:11:00 Medical Branch POCT GLUCOSE (AUTOMATED) 2021-12-04 Valentina Deng [facility] 08:11:00 Medical Branch VANCOMYCIN TROUGH 2021-12-04 Sowmya, Valentina Portillo [facility] 08:11:00 Medical Branch POCT GLUCOSE (AUTOMATED) 2021-12-04 Sowmya, Valentina Portillo [facility] 08:11:00 Medical Branch VANCOMYCIN TROUGH 2021-12-04 Sowmya, Valentina Portillo [facility] 08:11:00 Medical Branch POCT GLUCOSE (AUTOMATED) 2021-12-04 Sowmya, Valentina Portillo [facility] 08:11:00 Medical Branch PHOSPHORUS 2021-12-04 [facility] 08:01:00 Medical Branch MAGNESIUM 2021-12-04 [facility] [place] 08:01:00 Medical Branch BASIC METABOLIC PANEL 2021-12-04 [facility] (NA, K, CL, CO2, 08:01:00 Medical Branch GLUCOSE, BUN, CREATININE, CA) CBC WITHOUT DIFF 2021-12-04 [facility] [place] 08:01:00 Medical Branch PHOSPHORUS 2021-12-04 [facility] 08:01:00 Medical Branch MAGNESIUM 2021-12-04 [facility] 08:01:00 Medical Branch BASIC METABOLIC PANEL 2021-12-04 [facility] (NA, K, CL, CO2, 08:01:00 Medical Branch GLUCOSE, BUN, CREATININE, CA) CBC WITHOUT DIFF 2021-12-04 [facility] 08:01:00 Medical Branch PHOSPHORUS 2021-12-04 [facility] 08:01:00 Medical Branch MAGNESIUM 2021-12-04 [facility] 08:01:00 Medical Branch BASIC METABOLIC PANEL 2021-12-04 [facility] (NA, K, CL, CO2, 08:01:00 Medical Branch GLUCOSE, BUN, CREATININE, CA) CBC WITHOUT DIFF 2021-12-04 [facility]as 08:01:00 Medical Branch PHOSPHORUS 2021-12-04 [facility] 08:01:00 [facility] MAGNESIUM 2021-12-04 [facility] 08:01:00 [facility] BASIC METABOLIC PANEL 2021-12-04 [facility] (NA, K, CL, CO2, 08:01:00 Medical Branch GLUCOSE, BUN, CREATININE, CA) CBC WITHOUT DIFF 2021-12-04 [facility]as 08:01:00 Medical Branch POCT GLUCOSE (AUTOMATED) 2021-12-04 Deng, Valentina [facility] [place] 04:56:00 Medical Branch POCT GLUCOSE (AUTOMATED) 2021-12-04 Deng, Valentina [facility] [place] 04:56:00 Medical [facility] POCT GLUCOSE (AUTOMATED) 2021-12-04 Deng, Valentina [facility] [place] 04:56:00 Medical [facility] POCT GLUCOSE (AUTOMATED) 2021-12-04 Deng, Valentina [facility] [place] 04:56:00 Medical Branch POCT GLUCOSE (AUTOMATED) 2021-12-04 Deng, Valentina [facility] [place] 04:54:00 Medical Branch POCT GLUCOSE (AUTOMATED) 2021-12-04 Deng, Valentina [facility] [place] 04:54:00 Medical Branch POCT GLUCOSE (AUTOMATED) 2021-12-04 Deng, Valentina [facility] [place] 04:54:00 Medical Branch POCT GLUCOSE (AUTOMATED) 2021-12-04 Deng, Valentina [facility] [place] 04:54:00 Medical Branch POCT GLUCOSE (AUTOMATED) 2021-12-04 Deng, Valentina [facility] [place] 00:11:00 Medical [facility] POCT GLUCOSE (AUTOMATED) 2021-12-04 Deng, Valentina [facility] [place] 00:11:00 Medical [facility] POCT GLUCOSE (AUTOMATED) 2021-12-04 Deng, Valentina [facility] [place] 00:11:00 Medical [facility] POCT GLUCOSE (AUTOMATED) 2021-12-04 Deng, Valentina [facility] [place] 00:11:00 Medical [facility] POCT GLUCOSE (AUTOMATED) 2021-12-03 Deng, Valentina [facility] [place] 21:59:00 Medical Branch POCT GLUCOSE (AUTOMATED) 2021-12-03 Deng, Valentina [facility] [place] 21:59:00 Medical [facility] POCT GLUCOSE (AUTOMATED) 2021-12-03 Deng, Valentina [facility] [place] 21:59:00 Medical [facility] POCT GLUCOSE (AUTOMATED) 2021-12-03 Deng, Valentina [facility] [place] 21:59:00 Medical Branch HB ECG ROUTINE & RHYTHM 2021-12-03 Saffari, [facility] STRIP 19:47:38 Medical Branch HB ECG ROUTINE & RHYTHM 2021-12-03 Saffari, [facility] STRIP 19:47:38 Medical Branch HB ECG ROUTINE & RHYTHM 2021-12-03 Saffari, [facility] STRIP 19:47:38 Medical Branch HB ECG ROUTINE & RHYTHM 2021-12-03 Saffari, [facility] ty [facility] STRIP 19:47:38 Medical Branch POCT GLUCOSE (AUTOMATED) 2021-12-03 Deng, Valentina [facility] [place] 17:53:00 [facility] POCT GLUCOSE (AUTOMATED) 2021-12-03 Deng, Valentina [facility] [place] 17:53:00 [facility] POCT GLUCOSE (AUTOMATED) 2021-12-03 Deng, Valentina [facility] [place] 17:53:00 Medical [facility] POCT GLUCOSE (AUTOMATED) 2021-12-03 Deng, Valentina [facility] [place] 17:53:00 Medical Branch CBC WITHOUT DIFF 2021-12-03 Grace [facility] 16:56:00 Medical Branch POCT GLUCOSE (AUTOMATED) 2021-12-03 Deng, Valentina [facility] [place] 16:56:00 Medical Branch CBC WITHOUT DIFF 2021-12-03 Grace, [facility] ex 16:56:00 Medical Branch POCT GLUCOSE (AUTOMATED) 2021-12-03 Deng, Valentina [facility] [place] 16:56:00 Medical Branch CBC WITHOUT DIFF 2021-12-03 Grace, [facility] [facility] 16:56:00 Medical Branch POCT GLUCOSE (AUTOMATED) 2021-12-03 Deng, Valentina A [facility] [place] 16:56:00 Medical [facility] CBC WITHOUT DIFF 2021-12-03 Grace, Keyin [facility] 16:56:00 [facility] POCT GLUCOSE (AUTOMATED) 2021-12-03 Deng, Valentina [facility] [place] 16:56:00 Medical Branch POCT GLUCOSE (AUTOMATED) 2021-12-03 Deng, Valentina A [facility] [place] 16:27:00 Medical Branch POCT GLUCOSE (AUTOMATED) 2021-12-03 Deng, Valentina A [facility] [place] 16:27:00 Medical Branch POCT GLUCOSE (AUTOMATED) 2021-12-03 Deng, Valentina A [facility] [place] 16:27:00 Medical Branch POCT GLUCOSE (AUTOMATED) 2021-12-03 Deng, Valentina A [facility] [place] 16:27:00 Medical Branch POCT GLUCOSE (AUTOMATED) 2021-12-03 Elisa [facility] [place] 15:36:00 Medical Branch POCT GLUCOSE (AUTOMATED) 2021-12-03 Elisa Joyce [facility] [place] 15:36:00 Medical Branch POCT GLUCOSE (AUTOMATED) 2021-12-03 Elisa Joyce [facility] [place] 15:36:00 Medical Branch POCT GLUCOSE (AUTOMATED) 2021-12-03 Elisa Joyce [facility] [place] 15:36:00 Medical Branch POCT GLUCOSE (AUTOMATED) 2021-12-03 Elisa Joyce [facility] 14:29:00 Medical Branch POCT GLUCOSE (AUTOMATED) 2021-12-03 Elisa Joyce [facility] 14:29:00 Medical Branch POCT GLUCOSE (AUTOMATED) 2021-12-03 Elisa Joyce [facility] [place] 14:29:00 Medical Branch POCT GLUCOSE (AUTOMATED) 2021-12-03 Elisa Joyce [facility] 14:29:00 [facility] Branch ASPIRATE OR ABSCESS 2021-12-03 Elisa Joyce [facility] CULTURE(AEROBIC/ANAEROBI 13:56:00 Medical Branch C) AFB CULTURE 2021-12-03 Elisa Joyce [facility] 13:56:00 [facility] Branch FUNGUS (ROUTINE) CULTURE 2021-12-03 Elisa [facility] 13:56:00 Medical Branch ASPIRATE OR ABSCESS 2021-12-03 Elisa Joyce [facility] CULTURE(AEROBIC/ANAEROBI 13:56:00 Medical Branch C) AFB CULTURE 2021-12-03 Elisa Joyce [facility] 13:56:00 Medical Branch FUNGUS (ROUTINE) CULTURE 2021-12-03 Elisa Joyce Unive [facility] 13:56:00 Medical Branch ASPIRATE OR ABSCESS 2021-12-03 Elisa Joyce [facility] CULTURE(AEROBIC/ANAEROBI 13:56:00 Medical Branch C) AFB CULTURE 2021-12-03 Elisa Joyce [facility] 13:56:00 Medical Branch FUNGUS (ROUTINE) CULTURE 2021-12-03 Elisa [facility] 13:56:00 Medical Branch ASPIRATE OR ABSCESS 2021-12-03 Elisa Joyce [facility] CULTURE(AEROBIC/ANAEROBI 13:56:00 Medical Branch C) AFB CULTURE 2021-12-03 Elisa Joyce [facility] 13:56:00 Medical Branch FUNGUS (ROUTINE) CULTURE 2021-12-03 Elisa Joyce [facility] 13:56:00 Medical Branch FOOT DEBRIDEMENT 2021-12-03 Elisa Joyce [facility] 12:40:00 Medical Branch INCISION AND DRAINAGE OF 2021-12-03 [facility] 12:40:00 Medical Branch FOOT DEBRIDEMENT 2021-12-03 Elisa Joyce [facility] 12:40:00 Medical Branch INCISION AND DRAINAGE OF 2021-12-03 Elisa Joyce Unive [facility] ABSCESS 12:40:00 Medical Branch POCT GLUCOSE (AUTOMATED) 2021-12-03 Zaid Cai [facility] 12:17:00 Medical Branch POCT GLUCOSE (AUTOMATED) 2021-12-03 Zaid Cai [facility] 12:17:00 Medical Branch POCT GLUCOSE (AUTOMATED) 2021-12-03 Zaid Cai [facility] 12:17:00 Medical Branch POCT GLUCOSE (AUTOMATED) 2021-12-03 Zaid Cai [facility] 12:17:00 Medical Branch POCT GLUCOSE (AUTOMATED) 2021-12-03 Zaid Cai [facility] 11:07:00 Medical Branch POCT GLUCOSE (AUTOMATED) 2021-12-03 Zaid Cai [facility] 11:07:00 Medical Branch POCT GLUCOSE (AUTOMATED) 2021-12-03 Zaid Cai [facility] 11:07:00 Medical Branch POCT GLUCOSE (AUTOMATED) 2021-12-03 Zaid Cai [facility] 11:07:00 Medical Branch PROTHROMBIN TIME / INR 2021-12-03 Dipak Tastaldi, [facility] [place] 09:55:00 Saeid Medical Branch PROTHROMBIN TIME / INR 2021-12-03 Dipak [facility]astaldi, [facility] [place] 09:55:00 Saeid Medical Branch PROTHROMBIN TIME / INR 2021-12-03 Dipak Tastaldi, [facility] [place] 09:55:00 Saeid Medical Branch PROTHROMBIN TIME / INR 2021-12-03 Dipak Tastaldi, [facility] [place] 09:55:00 [facility] Branch CT TIBIA FIBULA LEFT W 2021-12-03 Dipak Tastaldi, [facility] [place] [facility]:25[facility]IBULA [facility] W 2021-12-03 Dipak Tastaldi, [facility] [place] CONTRAST 09:25:00 [facility] Medical Branch CT TIBIA FIBULA LEFT W 2021-12-03 Dipak Tastaldi, [facility] [place] CONTRAST 09:25:00 [facility] Medical Branch CT TIBIA FIBULA LEFT W 2021-12-03 Dipak Tastaldi, [facility] [place] CONTRAST 09:25:00 [facility] Branch C-REACTIVE PROTEIN 2021-12-03 Jose Daniel Waldron [facility] 08:10:00 Medical Branch HEPATIC FUNCTION PANEL 2021-12-03 Dipak Tastaldi, Unive [facility] ([id number]) (ALB,T.PRO,BILI 08:10:00 [facility] Branch T,BU/BC,ALT,AST,ALK PHOS) BASIC METABOLIC PANEL 2021-12-03 Jessica Bee [facility] (NA, K, CL, CO2, 08:10:00 Medical Branch GLUCOSE, BUN, CREATININE, CA) CBC WITH DIFF 2021-12-03 Rohit [facility] 08:10:00 Medical Branch C-REACTIVE PROTEIN 2021-12-03 [facility] 08:10:00 Medical Branch HEPATIC FUNCTION PANEL 2021-12-03 [facility] ([id number][facility] (ALB,T.PRO,BILI 08:10:00 Saeid Medical Branch T,BU/BC,ALT,AST,ALK PHOS) BASIC METABOLIC PANEL 2021-12-03 [facility] ([facility], K, CL, CO2, 08:10:00 Medical Branch GLUCOSE, BUN, CREATININE, CA) CBC WITH DIFF 2021-12-03 Rohit [facility] 08:10:00 Medical Branch C-REACTIVE PROTEIN 2021-12-03 [facility] 08:10:00 Medical Branch HEPATIC FUNCTION PANEL 2021-12-03 Dipak [facility] ([id number]) (ALB,T.PRO,BILI 08:10:00 Saeid Medical Branch T,BU/BC,ALT,AST,ALK PHOS) BASIC METABOLIC PANEL 2021-12-03 Rohit [facility] (NA, K, CL, CO2, 08:10:00 Medical Branch GLUCOSE, BUN, CREATININE, CA) CBC WITH DIFF 2021-12-03 Rohit [facility] 08:10:00 Medical Branch C-REACTIVE PROTEIN 2021-12-03 [facility] 08:10:00 Medical Branch HEPATIC FUNCTION PANEL 2021-12-03 [facility] ([id number]) (ALB,T.PRO,BILI 08:10:00 Saeid Medical Branch T,BU/BC,ALT,AST,ALK PHOS) BASIC METABOLIC PANEL 2021-12-03 Rohit [facility] (NA, K, CL, CO2, 08:10:00 Medical Branch GLUCOSE, BUN, CREATININE, CA) CBC WITH DIFF 2021-12-03 Rohit [facility] [employer] [facility] [place] 08:10:00 Medical Branch WOUND/ASPIRATE OR 2021-12-03 Waldron[facility] [place] ABSCESS CULTURE 07:35:00 Medical Branch WOUND CULTURE 2021-12-03 [facility] [place] 07:35:00 Medical Branch WOUND/ASPIRATE OR 2021-12-03 Chivo [facility] [place] ABSCESS CULTURE 07:35:00 Medical Branch WOUND CULTURE 2021-12-03 Chivo [facility] [place] 07:35:00 Medical Branch WOUND/ASPIRATE OR 2021-12-03 Chivo [facility] [place] ABSCESS CULTURE 07:35:00 Medical Branch WOUND CULTURE 2021-12-03 [facility]ivo [facility] [place] 07:35:00 Medical Branch WOUND/ASPIRATE OR 2021-12-03 Chivo [facility] [place] ABSCESS CULTURE 07:35:00 Medical Branch WOUND CULTURE 2021-12-03 Jose Daniel Waldron [facility] [place] 07:35:00 Medical Branch POCT GLUCOSE (AUTOMATED) 2021-12-03 Trell [facility] [place] 06:49:00 Medical Branch POCT GLUCOSE (AUTOMATED) 2021-12-03 Zaid Cai [facility] 06:49:00 Medical Branch POCT GLUCOSE (AUTOMATED) 2021-12-03 Zaid Cai [facility] 06:49:00 Medical Branch POCT GLUCOSE (AUTOMATED) 2021-12-03 Zaid Cai [facility] 06:49:00 Medical Branch POCT GLUCOSE (AUTOMATED) 2021-12-03 Zaid Cai [facility] 03:03:00 Medical Branch POCT GLUCOSE (AUTOMATED) 2021-12-03 Zaid Cai [facility] 03:03:00 Medical Branch POCT GLUCOSE (AUTOMATED) 2021-12-03 Zaid Cai [facility] 03:03:00 Medical Branch POCT GLUCOSE (AUTOMATED) 2021-12-03 [facility]aid [facility] 03:03:00 Medical Branch LIPID PANEL 2021-12-03 [facility] [place] ([id number])(TOTAL 02:58:00 Medical Branch CHOLESTEROL, TRIGLYCERIDES, HDL) LIPID PANEL 2021-12-03 [facility] ([id number])(TOTAL 02:58:00 Medical Branch CHOLESTEROL, TRIGLYCERIDES, HDL) LIPID PANEL 2021-12-03 [facility] ([id number])(TOTAL 02:58:00 Medical Branch CHOLESTEROL, TRIGLYCERIDES, HDL) LIPID PANEL 2021-12-03 [facility] ([id number])(TOTAL 02:58:00 Medical Branch CHOLESTEROL, TRIGLYCERIDES, HDL) POCT GLUCOSE(AGE 2021-12-02 Rah, Caprice [facility] >30DAYS) 20:16:00 Medical Branch POCT GLUCOSE(AGE 2021-12-02 [facility] >30DAYS) 20:16:00 Medical Branch POCT GLUCOSE(AGE 2021-12-02 Rah, Caprice [facility] >30DAYS) 20:16:00 Medical Branch POCT [facility]COSE([facility] 2021[facility]12[facility] 20:16:00 Medical Branch POCT GLUCOSE (AUTOMATED) 2021-12-02 Caprice Monreal [facility] 20:15:00 Medical Branch POCT GLUCOSE (AUTOMATED) 2021-12-02 Caprice Monreal [facility] 20:15:00 Medical Branch POCT GLUCOSE (AUTOMATED) 2021-12-02 Caprice Mnoreal [facility] 20:15:00 Medical Branch POCT GLUCOSE (AUTOMATED) 2021-12-02 Caprice Monreal [facility] 20:15:00 Medical Branch XR FOOT 3+ VW LEFT 2021-12-02 Caprice Monreal [facility] 19:46:43 Medical Branch XR FOOT 3+ VW LEFT 2021-12-02 Caprice Monreal [facility] 19:46:43 Medical Branch XR FOOT 3+ VW LEFT 2021-12-02 Caprice Monreal [facility] 19:46:43 Medical Branch XR FOOT 3+ VW LEFT 2021-12-02 RahCaprice [facility] 19:46:43 Medical Branch URINALYSIS 2021-12-[address] [facility] 18:59:00 Medical Branch URINALYSIS 2021-12-[address] [facility] 18:59:00 Medical Branch URINALYSIS 2021-12-[address] [facility] 18:59:00 Medical Branch URINALYSIS 2021-12-[address] [facility] 18:59:00 Medical Branch BLOOD CULTURE SCREEN 2021-12-02 Caprice Monreal [facility] 18:06:00 Medical Branch LIPASE 2021-12-02 Rah [facility] 18:06:00 [facility] Branch MAGNESIUM 2021-12-02 [facility] o [facility] 18:06:00 Medical Branch COMP. METABOLIC PANEL 2021-12-02 Caprice Monreal [facility] ([id number]) 18:06:00 Medical Branch CBC WITH DIFF 2021-12-02 Rah [facility] 18:06:00 Medical Branch GLYCOSYLATED HEMOGLOBIN 2021-12-02 [facility] (A1C) 18:06:00 Medical Branch RAPID INFLUENZA A/B 2021-12-02 Caprice Monreal [facility] o [facility] 18:06:00 Medical Branch BLOOD CULTURE WORKUP 2021-12-02 Caprice Monreal [facility] 18:06:00 Medical Branch BLOOD CULTURE WORKUP 2021-12-02 Rah [facility] 18:06:00 Medical Branch GRAM POSITIVE BLOOD 2021-12-02 Caprice Monreal [facility] o [facility] PATHOGENS DNA 18:06:00 Medical Branch PROBE-ANAEROBIC COVID-19 (ID NOW RAPID 2021-12-02 Caprice Monreal [facility] TESTING) 18:06:00 Medical Branch LAB ONLY COVID 2021-12-[address] [facility] INTERPRETATION 18:06:00 Medical Branch BLOOD CULTURE SCREEN 2021-12-02 Caprice Monreal [facility] 18:06:00 Medical Branch LIPASE 2021-12-[address] [facility] 18:06:00 Medical Branch MAGNESIUM 2021-12-02 Rohit, [facility] [place] 18:06:00 Medical Branch COMP. METABOLIC PANEL 2021-12-02 Caprice Monreal [facility] ([id number]) 18:06:00 Medical Branch CBC WITH DIFF 2021-12-[address] [facility] 18:06:00 Medical Branch GLYCOSYLATED HEMOGLOBIN [facility] 18:06:00 Medical Branch RAPID INFLUENZA A/B 2021-12-02 Caprice Monreal [facility] [place] 18:06:00 Medical Branch BLOOD CULTURE WORKUP 2021-12-02 Rah [facility] 18:06:00 Medical Branch BLOOD CULTURE WORKUP 2021-12-02 Caprice Monreal [facility] 18:06:00 [facility] Branch GRAM POSITIVE BLOOD 2021-12-02 Caprice Monreal [facility] [place] PATHOGENS DNA 18:06:00 [facility] Branch PROBE-ANAEROBIC COVID-19 (ID NOW RAPID 2021-12-02 Caprice Monreal [facility] TESTING) 18:06:00 [facility] LAB ONLY COVID 2021-12-[address] [facility] x[facility] INTERPRETATION 18:06:00 Medical Branch BLOOD CULTURE SCREEN 2021-12-02 Caprice Monreal [facility] 18:06:00 Medical Branch LIPASE 2021-12-02 Rah [facility] 18:06:00 Medical Branch MAGNESIUM 2021-12-02 Rohit [facility] [place] 18:06:00 Medical Branch COMP. METABOLIC PANEL 2021-12-02 Caprice Monreal [facility] ([id number]) 18:06:00 Medical Branch CBC WITH DIFF 2021-12-02 Rah [facility] 18:06:00 Medical Branch GLYCOSYLATED HEMOGLOBIN 2021-12-02 Rohit [facility] (A1C) 18:06:00 Medical Branch RAPID INFLUENZA A/B 2021-12-02 Caprice Monreal [facility] [place] 18:06:00 Medical Branch BLOOD CULTURE WORKUP 2021-12-02 Rah [facility] 18:06:00 Medical Branch BLOOD CULTURE WORKUP 2021-12-02 Caprice Monreal [facility] 18:06:00 Medical Branch GRAM POSITIVE BLOOD 2021-12-02 Caprice Monreal [facility] o [facility] PATHOGENS DNA 18:06:00 Medical Branch PROBE-ANAEROBIC COVID-19 (ID NOW RAPID 2021-12-02 Caprice Monreal [facility] TESTING) 18:06:00 Medical Branch LAB ONLY COVID 2021-12-[address] [facility] INTERPRETATION 18:06:00 [facility] Branch BLOOD CULTURE SCREEN 2021-12-02 Caprice Monreal [facility] 18:06:00 Medical Branch LIPASE 2021-12-02 Rah [facility] 18:06:00 [facility] MAGNESIUM 2021-12-02 [facility] 18:06:00 [facility] COMP. METABOLIC PANEL 2021-12-02 Caprice Monreal [facility] ([id number]) 18:06:00 [facility] CBC WITH DIFF 2021-12-[address] [facility] 18:06:00 [facility] Branch GLYCOSYLATED HEMOGLOBIN 2021-12-02 [facility] (A1C) 18:06:00 [facility] RAPID INFLUENZA A/B 2021-12-02 Caprice Monreal [facility] 18:06:00 Medical Branch BLOOD CULTURE WORKUP 2021-12-02 Caprice Monreal [facility] 18:06:00 Medical Branch BLOOD CULTURE WORKUP 2021-12-02 Caprice Monreal [facility] 18:06:00 Medical Branch GRAM POSITIVE BLOOD 2021-12-02 Caprice Monreal [facility] o [facility] PATHOGENS DNA 18:06:00 [facility] PROBE-ANAEROBIC COVID-19 (ID NOW RAPID 2021-12-02 Caprice Monreal [facility] TESTING) 18:06:00 Medical Branch LAB ONLY COVID 2021-12-02 Caprice Monreal [facility] INTERPRETATION 18:06:00 [facility] AC PANEL 21 + LACTIC 2021-12-02 Caprice Monreal [facility] ACID 18:05:00 Medical Branch AC PANEL 21 + LACTIC 2021-12-02 Rah [facility] ACID 18:05:00 Medical Branch AC PANEL 21 + LACTIC 2021-12-02 Rah [facility] ACID 18:05:00 Medical Branch AC PANEL 21 + LACTIC 2021-12-02 Rah [facility] ACID 18:05:00 Medical Branch POCT GLUCOSE(AGE 2021-12-02 [facility] ex >30DAYS) 17:39:00 Medical Branch POCT GLUCOSE(AGE 2021-12-02 [facility] ex >30DAYS) 17:39:00 Medical Branch POCT GLUCOSE(AGE 2021-12-02 [facility] >30DAYS) 17:39:00 Medical Branch POCT GLUCOSE(AGE 2021-12-02 [facility] ex >30DAYS) 17:39:00 Medical Branch POCT GLUCOSE (AUTOMATED) 2021-12-02 Doctor Unassigned, No [facility] [place] 17:27:00 Name Medical Branch POCT GLUCOSE (AUTOMATED) 2021-12-02 Doctor Unassigned, No [facility] [place] 17:27:00 Name Medical Branch POCT GLUCOSE (AUTOMATED) 2021-12-02 Doctor Unassigned, No [facility] [place] 17:27:00 Name Medical Branch POCT GLUCOSE (AUTOMATED) 2021-12-02 Doctor Unassigned, No [facility] [place] 17:27:00 Name Medical Branch CONSENT/REFUSAL FOR 2021-12-02 Doctor Unassigned, No [facility] [place] [facility] 17:22:42 Name Medical Branch CONSENT/REFUSAL FOR 2021-12-02 Doctor Unassigned, No [facility] [place] [facility] 17:22:42 Name Medical Branch CONSENT/REFUSAL FOR 2021-12-02 Doctor Unassigned, No [facility] [place] [facility] 17:22:42 Name Medical Branch CONSENT/REFUSAL FOR 2021-12-02 Doctor Unassigned, No [facility] [place] [facility] TREATMENT 17:22:42 Name Medical Branch HOSPITAL ADMISSION 2021-12-02 Doctor Unassigned, No [facility] [place] 05:01:00 Name Medical Branch HOSPITAL ADMISSION 2021-12-02 Doctor Unassigned, No [facility] [place] 05:01:00 Name Medical Branch HOSPITAL ADMISSION 2021-12-02 Doctor Unassigned, No [facility] 05:01:00 Name Medical Branch HOSPITAL ADMISSION 2021-12-02 [facility] 05:01:00 Name [facility] Branch XR FOOT 3+ VW LEFT 2021-12-01 April Schaeffer [facility] 03:01:[address] [facility] [address] ABDOMEN PELVIS W 2021-12-[address] [facility] CONTRAST 02:48:00 [facility] LACTIC ACID WHOLE BLOOD 2021-12-01 [facility] 02:35[facility]00 [facility] Branch LIPASE 2021-12-01 [facility] 01:[facility]00 Medical Branch MAGNESIUM 2021-12-01 Laury [facility] 01:52:00 [facility] TROPONIN I 2021-12-01 Laury [facility] 01:52:00 [facility] COMP. METABOLIC PANEL 2021-12-01 [facility] ([id number]) 01:52:00 [facility] SEDIMENTATION RATE 2021-12-01 April Schaeffer [facility] 01:52:00 Medical Branch CBC WITH DIFF 2021-12-01 [facility] 01:52:00 [facility] N-TERMINAL PRO-BNP 2021-12-01 Laury [facility] Andrew [facility] 01:52:00 Medical Branch NOTICE OF PRIVACY 2021-12-01 Doctor Unassigned, No [facility] PR[facility] 01:11:20 Name [facility] CONSENT/REFUSAL FOR 2021-12-01 Doctor Unassigned, No [facility] DIAGNOSIS AND TREATMENT 01:10:[address] [facility] [place] BASIC METABOLIC PANEL 2021-07-27 Anthony Cole [facility] 12:19:00 [facility] HEPATIC FUNCTION PANEL 2021-07-27 Anthony Cole [facility] 12:19:00 [facility] CBC W/PLT COUNT & AUTO 2021-07-27 Anthony Cole [facility] DIFFERENTIAL 12:19:00 [facility] PROTHROMBIN TIME/INR 2021-07-[address] [facility] 12:19:00 [facility] ALPHA FETOPROTEIN (AFP), 2021-07-[address] [facility] TUMOR MARKER 12:19:00 [facility] US ABDOMEN LIMITED 2021-04-21 Requisition, Paper [facility] 19:08:31 Medical Branch NOTICE OF PRIVACY 2020-11-09 Doctor Unassigned, No [facility] 18:29:38 Name Medical Branch CONSENT/REFUSAL FOR 2020-11-09 Doctor Unassigned, No [facility] DIAGNOSIS AND TREATMENT 18:29:20 Name Medical Branch ASSIGNMENT OF BENEFITS 2020-11-09 Doctor Unassigned, No [facility] 18:29:01 Name Medical Branch DME/SUPPLY JUSTIFICATION 2020-01-27 [facility] 06:[facility]00 Name Medical Branch INSURANCE CORRESPONDENCE 2020-01-13 Doctor Unassigned, No [facility] [place] 06:01:00 Name Medical Branch XR ANKLE 3+ VW RIGHT 2019-12-23 [facility] 19:47:09 Medical Branch XR FOOT 3+ VW RIGHT 2019-12-23 [facility] 19:47:09 Medical Branch XR ANKLE 3+ VW RIGHT 2019-11-11 [facility] 18:54:00 Medical Branch XR FOOT 3+ VW RIGHT 2019-11-11 [facility] 18:54:00 Medical Branch XR TIBIA FIBULA 2 VW 2019-11-11 [facility] RIGHT 18:54:00 Medical Branch POCT GLUCOSE (AUTOMATED) 2019-10-08 [facility] 14:03:00 Medical Branch ASSIGNMENT OF BENEFITS 2019-10-04 Doctor Unassigned, No [facility] 20:32:24 Name Medical Branch XR ANKLE 3+ VW RIGHT 2019-09-23 Panchbhavi, [facility] 18:42:28 Medical Branch XR FOOT 3+ VW RIGHT 2019-09-23 [facility] 18:42:28 Medical Branch XR TIBIA FIBULA 2 VW 2019-09-23 [facility] RIGHT 18:42:28 Medical Branch POCT [facility]COSE (AUTOMATED) 2019[facility]09-[facility] 17:[facility] ECHO ROUTINE W/DOPPLER 2019-09-13 Niles [facility] COLOR 14:22:30 Medical Branch POCT GLUCOSE (AUTOMATED) 2019-09-13 Niles [facility] 13:22:00 Medical Branch TROPONIN I 2019-09-13 [facility] 07:18:00 Medical Branch VITAMIN D, 25-OH 2019-09-13 Oyabure, [facility] exas 07:18:00 [facility] TROPONIN I 2019-09-13 [facility] 01:14:00 Medical Branch POCT GLUCOSE (AUTOMATED) 2019-09-13 Ross Cage [facility] 00:44:00 Medical Branch XR CHEST 1 VW 2019-09-12 [facility] 20:17:12 Medical Branch COVID-19 (ID NOW RAPID 2019-09-12 [facility] TESTING) 19:28:00 Medical Branch URINALYSIS 2019-09-12 [facility] 18:51:00 Medical Branch LIPASE 2019-09-12 [facility] 18:26:00 Medical Branch TROPONIN I 2019-09-12 [facility] 18:26:00 [facility] Branch HEPATIC FUNCTION PANEL 2019-09-12 [facility] ([id number]) (ALB,T.PRO,BILI 18:26:00 Medical Branch T,BU/BC,ALT,AST,ALK PHOS) BASIC METABOLIC PANEL 2019-09-12 [facility] (NA, K, CL, CO2, 18:26:00 Medical Branch GLUCOSE, BUN, CREATININE, CA) CBC WITH DIFF 2019-09-12 [facility] 18:26:00 Medical Branch GLYCOSYLATED HEMOGLOBIN 2019-09-[address] [facility] (A1C) 18:26:00 Akira Medical Branch N-TERMINAL PRO-BNP 2019-09-12 [facility] 18:26:00 Medical Branch EKG-12 LEAD 2019-09-12 Obdulio Macdonald [facility] 18:23:[address] HEAD WO CONTRAST 2019-09-12 [facility]29 Medical Branch EKG-12 LEAD 2019-09-12 Gabi [facility] [place]as 17:47:38 Medical Branch NOTICE OF PRIVACY 2019-09-12 Doctor Unassigned, No [facility] PRACTICES 17:19:12 Name Medical Branch CONSENT/REFUSAL FOR 2019-09-12 Doctor Unassigned, No [facility] DIAGNOSIS AND TREATMENT 17:18:53 Name Medical Branch XR SHOULDER 2+ VW LEFT 2019-07-[address] [facility] 18:33:00 Medical Branch XR ANKLE 3+ VW RIGHT 2019-07-22 [facility] 18:12[facility] Medical Branch XR FOOT 3+ VW RIGHT 2019-07-22 Severiano, [facility] 18:12:00 Medical Branch XR ANKLE 3+ VW RIGHT 2019-06-10 [facility] 16:27:01 Medical Branch XR FOOT 3+ VW RIGHT 2019-06-10 Severiano, [facility] 16:27:01 Medical Branch XR TIBIA FIBULA 2 VW 2019-06-10 Severiano, [facility] RIGHT 16:27:01 Medical Branch XR ANKLE 3+ VW RIGHT 2019-04-29 [facility] 19:13:47 Medical Branch XR FOOT 3+ VW RIGHT 2019-04-29 [facility] 19:13:47 Medical Branch XR TIBIA FIBULA 2 VW 2019-04-29 [facility] RIGHT 19:13:47 Medical Branch XR ANKLE 3+ VW RIGHT 2019-03-25 [facility] 20:11:09 Medical Branch XR FOOT 3+ VW RIGHT 2019-03-25 [facility] 20:11:09 Medical Branch XR TIBIA FIBULA 2 VW 2019-03-25 [facility] RIGHT 20:11:09 Medical Branch CBC WITH DIFFERENTIAL 2019-03-13 [facility] 15:[facility]00 Medical Branch POCT GLUCOSE (AUTOMATED) 2019-03-13 [facility], [facility] 13:41:00 Medical Branch POCT GLUCOSE (AUTOMATED) 2019-03-13 [facility], [facility] 09:42:00 Medical Branch POCT GLUCOSE (AUTOMATED) 2019-03-13 [facility], [facility] 02:02:00 Medical Branch POCT GLUCOSE (AUTOMATED) 2019-03-12 [facility], [facility] 22:40:00 Medical Branch FL TIME OR 2019-03-12 [facility] [place] (NON-REPORTABLE) 22:35:36 Medical Branch EXTERNAL FIXATOR 2019-03-12 [facility], [facility] PLACEMENT FOR LOWER 19:25:00 Medical [facility] EXTREMITY ANTIBIOTIC SPACER 2019-03-12 [facility], [facility] PLACEMENT 19:25:00 Medical Branch INCISION AND DRAINAGE 2019-03-12 [facility], [facility] LOWER EXTREMITY 19:25:00 Medical Branch POCT GLUCOSE (AUTOMATED) 2019-03-12 [facility], [facility] 18:40:00 Medical Branch ASSIGNMENT OF BENEFITS 2019-03-12 Doctor Unassigned, No [facility] 16:05:54 Name Medical Branch XR FOOT 3+ VW RIGHT 2019-03-11 [facility] [place] 15:56:42 Medical Branch POCT GLUCOSE (AUTOMATED) 2019-03-06 Allen Vidal [facility] 18:30:00 Medical Branch POCT GLUCOSE (AUTOMATED) 2019-03-06 Allen Vidal [facility] 14:38:00 Medical Branch POCT GLUCOSE (AUTOMATED) 2019-03-06 Allen Vidal [facility] 02:25:00 Medical Branch POCT GLUCOSE (AUTOMATED) 2019-03-05 Allen Vidal [facility] 22:27:00 Medical Branch POCT GLUCOSE (AUTOMATED) 2019-03-05 Young Allen Seals [facility] 18:22:00 Medical Branch POCT GLUCOSE (AUTOMATED) 2019-03-05 Young Allen Seals [facility] 14:49:00 Medical Branch BASIC METABOLIC PANEL 2019-03-05 [facility] (NA, K, CL, CO2, 10:54:00 [facility] GLUCOSE, BUN, CREATININE, CA) VANCOMYCIN TROUGH 2019-03-05 [facility] 10:54:00 [facility] Branch CBC WITH DIFFERENTIAL 2019-03-05 [facility] 10:54:00 [facility] PROTHROMBIN TIME / INR 2019-03-05 [facility] 10:54:00 Medical Branch POCT GLUCOSE (AUTOMATED) 2019-03-05 Allen Vidal [facility] 02:30:00 Medical Branch POCT GLUCOSE (AUTOMATED) 2019-03-04 Young Allen [facility] 23:03:00 Medical Branch POCT GLUCOSE (AUTOMATED) 2019-03-04 Young Allen [facility] 18:41:00 Medical Branch POCT GLUCOSE (AUTOMATED) 2019-03-04 Young Allen [facility] 13:50:00 Medical Branch POCT GLUCOSE (AUTOMATED) 2019-03-04 Allen Vidal [facility] 12:06:00 Medical Branch MAGNESIUM 2019-03-04 [facility] 10:57:00 Medical Branch BASIC METABOLIC PANEL 2019-03-04 [facility] ([facility], K, CL, CO2, 10:57:00 Medical Branch GLUCOSE, BUN, CREATININE, CA) POCT GLUCOSE (AUTOMATED) 2019-03-04 Allen Vidal [facility] 02:29:00 Medical Branch POCT GLUCOSE (AUTOMATED) 2019-03-03 [facility] 22:30:00 Medical Branch POCT GLUCOSE (AUTOMATED) 2019-03-03 Young, Allen [facility] 17:56:00 Medical Branch POCT GLUCOSE (AUTOMATED) 2019-03-03 Allen Vidal [facility] 13:54:00 Medical Branch MAGNESIUM 2019-03-03 [facility] xa 10:39:00 Medical Branch BASIC METABOLIC PANEL 2019-03-03 [facility] (NA, K, CL, CO2, 10:39:00 Medical Branch GLUCOSE, BUN, CREATININE, CA) VANCOMYCIN TROUGH 2019-03-03 [facility] 10:39:00 Medical Branch PO[facility]COSE (AUTOMATED) 2019[facility]03 [facility] 01:[facility] Branch POCT GLUCOSE (AUTOMATED) 2019-03-02 Young [facility] 23:09:00 Medical Branch POCT GLUCOSE (AUTOMATED) 2019-03-02 Young [facility] 17:26:00 Medical Branch POCT GLUCOSE (AUTOMATED) 2019-03-02 Young [facility] 13:35:[address] TIBIA FIBULA RIGHT W 2019-03-02 [facility] 04:38:[address] FOOT RIGHT W CONTRAST 2019-03-02 [facility] 04:38:44 Medical Branch US RETROPERITONEAL 2019-03-02 [facility] 03:41:51 [facility] URINALYSIS 2019-03-02 Patrice [facility] xa 01:49:00 [facility] Branch URINE CULTURE 2019-03-02 [facility]Formerly [facility], [facility] xa 01:49:00 [facility] CREATININE, URINE RANDOM 2019-03-02 [facility] [address] 01:49:00 [facility] SODIUM, URINE RANDOM 2019-03-02 Escloedson, [facility] 01:49:00 [facility] POCT GLUCOSE (AUTOMATED) 2019-03-02 [facility] 01:31:00 [facility] MAGNESIUM 2019-03-02 [facility] 00:34:00 [facility] BASIC METABOLIC PANEL 2019-03-02 [facility] (NA, K, CL, CO2, 00:34:00 [facility] GLUCOSE, BUN, CREATININE, CA) VANCOMYCIN TROUGH 2019-03-02 [facility] 00:34:00 [facility] CBC WITH DIFFERENTIAL 2019-03-02 [facility] 00:34:00 [facility] GLYCOSYLATED HEMOGLOBIN 2019-03-02 [facility] ([facility]) 00:34:00 [facility] PROTHROMBIN TIME / INR 2019-03-02 [facility] 00:34:00 [facility] ACTIVATED PARTIAL 2019-03-02 [facility] THRMPLAS HUSSAIN 00:34:00 [facility] XR ANKLE 3+ VW RIGHT 2019-02-27 [facility] 18:51:55 Medical Branch ASSIGNMENT OF BENEFITS 2018-09-26 Doctor Unassigned, No [facility] 16:55:41 Name Medical Branch C-REACTIVE PROTEIN 2018-09-12 [facility] 17:27:00 Medical Branch BASIC METABOLIC PANEL 2018-09-12 [facility] (NA, K, CL, CO2, 17:27:00 Medical Branch GLUCOSE, BUN, CREATININE, CA) SEDIMENTATION RATE 2018-09-12 [facility] 17:27:00 Medical Branch CBC WITH DIFFERENTIAL 2018-09-12 [facility] 17:27:00 [facility] Branch Plan of Care Planned Activity Planned Date Details Comments Source Future Scheduled 2022-10-14 Influenza Vaccine (#1) [facility] 00:00:00 [code = Influenza Medical Ce nter Vaccine (#1)] Future Scheduled 2022-10-14 Influenza Vaccine (#1) [facility] 00:00:00 [code = Influenza Medical Ce nter Vaccine (#1)] Future Scheduled 2022-10-14 Influenza Vaccine (#1) [facility] 00:00:00 [code = Influenza Medical Ce nter Vaccine (#1)] Future Scheduled 2022-08-[address] [facility] 00:00:00 [facility] Cent[facility] r Screening (12+) [code = Tobacco Cessation Counseling and Screening (12+)] Future Scheduled 2022-08-[address] [facility] 00:00:00 [facility] Cent[facility] r Screening (12+) [code = Tobacco Cessation Counseling and Screening (12+)] Future Scheduled 2022-08-[address] [facility] 00:00:00 [facility] Medical Cente r Screening (12+) [code = Tobacco Cessation Counseling and Screening (12+)] Future Scheduled 2022-08-[address] [facility] 00:00:00 [facility]ing [facility] Medical Cente r Screening (12+) [code = Tobacco Cessation Counseling and Screening (12+)] Future Scheduled 2022-08-[address] [facility] 00:00:00 [facility]ing [facility] Medical Cente r Screening (12+) [code = Tobacco Cessation Counseling and Screening (12+)] Future Scheduled 2022-02-[address] [facility] 00:00:00 (12+) [code = Medical Center DEPRESSION SCREENING (12+)] Future Scheduled 2022-02-13 FALLS RISK SCREENING [facility] 00:00:00 [code = FALLS RISK Medical C enter SCREENING] Future Scheduled 2022-02-[address] [facility] 00:00:00 (12+) [code = Medical Center DEPRESSION SCREENING (12+)] Future Scheduled 2022-02-13 FALLS RISK SCREENING [facility] 00:00:00 [code = FALLS RISK Medical C enter SCREENING] Future Scheduled 2022-02-[address] [facility] 00:00:00 (12+) [code = Medical Center DEPRESSION SCREENING (12+)] Future Scheduled 2022-02-13 FALLS RISK SCREENING [facility] 00:00:00 [code = FALLS RISK Medical C enter SCREENING] Future Scheduled 2022-02-[address] [facility] 00:00:00 (12+) [code = Medical Center DEPRESSION SCREENING (12+)] Future Scheduled 2022-02-13 FALLS RISK SCREENING [facility] 00:00:00 [code = FALLS RISK Medical C enter SCREENING] Future Scheduled 2021-10-14 INFLUENZA VACCINE (#1) [facility] 00:00:00 [code = INFLUENZA Medical Ce nter VACCINE (#1)] Future Scheduled 2021-10-14 INFLUENZA VACCINE (#1) [facility] 00:00:00 [code = INFLUENZA Medical Ce nter VACCINE (#1)] Future Scheduled 2021-10-14 INFLUENZA VACCINE (#1) [facility] 00:00:00 [code = INFLUENZA Medical Ce nter VACCINE (#1)] Future Scheduled 2021-02-[address] [facility] 00:00:00 WELLNESS (YEAR 2 or Medical Center FIRST YEAR if no IPPE) [code = MEDICARE ANNUAL WELLNESS (YEAR 2 or FIRST YEAR if no IPPE)] Future Scheduled 2021-02-[address] [facility] 00:00:00 WELLNESS (YEAR 2 or Medical Center FIRST YEAR if no IPPE) [code = MEDICARE ANNUAL WELLNESS (YEAR 2 or FIRST YEAR if no IPPE)] Future Scheduled 2021-02-[address] [facility] 00:00:00 WELLNESS (YEAR 2 or Medical Center FIRST YEAR if no IPPE) [code = MEDICARE ANNUAL WELLNESS (YEAR 2 or FIRST YEAR if no IPPE)] Future Scheduled 2021-02-[address] [facility] 00:00:00 WELLNESS (YEAR 2 or Medical Center FIRST YEAR if no IPPE) [code = MEDICARE ANNUAL WELLNESS (YEAR 2 or FIRST YEAR if no IPPE)] Future Scheduled 2021-02-[address] [facility] 00:00:00 WELLNESS (YEAR 2 or Medical Center FIRST YEAR if no IPPE) [code = MEDICARE ANNUAL WELLNESS (YEAR 2 or FIRST YEAR if no IPPE)] Future Scheduled 2021-02-[address] [facility] 00:00:00 WELLNESS (YEAR 2 or Medical Center FIRST YEAR if no IPPE) [code = MEDICARE ANNUAL WELLNESS (YEAR 2 or FIRST YEAR if no IPPE)] Future Scheduled 2021-02-[address] [facility] 00:00:00 (12+) [code = Medical Center DEPRESSION SCREENING (12+)] Future Scheduled 2021-02-13 FALLS RISK SCREENING [facility] 00:00:00 [code = FALLS RISK Medical C enter SCREENING] Future Scheduled 2021-02-[address] [facility] 00:00:00 (12+) [code = Medical Center DEPRESSION SCREENING (12+)] Future Scheduled 2021-02-13 FALLS RISK SCREENING [facility] 00:00:00 [code = FALLS RISK Medical C enter SCREENING] Future Scheduled 2020-11-13 COVID-19 VACCINE (2 - [facility]00 [facility] for [facility] series) [code = COVID-19 VACCINE (2 - Booster for [employer] series)] Future Scheduled 2020-11-13 COVID-19 VACCINE (2 - [facility] 00[facility]00:00 [facility] series) [code = COVID-19 VACCINE (2 - Booster for [employer] series)] Future Scheduled 2020-11-13 COVID-19 VACCINE (2 - [facility] 00:00:00 [facility] series) [code = COVID-19 VACCINE (2 - Booster for [employer] series)] Future Scheduled 2019-07-27 PNEUMOCOCCAL 65+ YRS ([address] [facility] 00:00:00 - PCV) [code = Medical Cente r PNEUMOCOCCAL 65+ YRS (1 - PCV)] Future Scheduled 2019-07-27 PNEUMOCOCCAL 65+ YRS ([address] [facility] 00:00:00 - PCV) [code = Medical Cente r PNEUMOCOCCAL 65+ YRS (1 - PCV)] Future Scheduled 2019-07-27 PNEUMOCOCCAL 65+ YRS ([address] [facility] 00:00:00 - PCV) [code = Medical Cente r PNEUMOCOCCAL 65+ YRS (1 - PCV)] Future Scheduled 2004 SHINGLES VACCINES ([address] [facility] 00:00:00 2) [code = SHINGLES Medical Center VACCINES (1 of 2)] Future Scheduled 2004 SHINGLES VACCINES ([address] [facility] 00:00:00 2) [code = SHINGLES Medical Center VACCINES (1 of 2)] Future Scheduled 2004 SHINGLES VACCINES ([address] [facility] 00:00:00 2) [code = SHINGLES Medical Center VACCINES (1 of 2)] Future Scheduled 2004 SHINGLES VACCINES ([address] [facility] 00:00:00 2) [code = SHINGLES Medical Center VACCINES (1 of 2)] Future Scheduled 2004 SHINGLES VACCINES ([address] [facility] 00:00:00 2) [code = SHINGLES Medical Center VACCINES (1 of 2)] Future Scheduled 2004 SHINGLES VACCINES ([address] [facility] 00:00:00 2) [code = SHINGLES Medical Center VACCINES (1 of 2)] Future Scheduled 1973 DTAP/TDAP/TD VACCINES [facility] 00:00:00 (1 - Tdap) [code = Medical C enter DTAP/TDAP/TD VACCINES (1 - Tdap)] Future Scheduled 1973 DTAP/TDAP/TD VACCINES [facility] 00:00:00 (1 - Tdap) [code = Medical C enter DTAP/TDAP/TD VACCINES (1 - Tdap)] Future Scheduled 1973 DTAP/TDAP/TD VACCINES [facility] 00:00:00 (1 - Tdap) [code = Medical C enter DTAP/TDAP/TD VACCINES (1 - Tdap)] Future Scheduled 1973 DTAP/TDAP/TD VACCINES [facility] 00:00:00 (1 - Tdap) [code = Medical C enter DTAP/TDAP/TD VACCINES (1 - Tdap)] Future Scheduled 1973 DTAP/TDAP/TD VACCINES [facility] 00:00:00 (1 - Tdap) [code = Medical C enter DTAP/TDAP/TD VACCINES (1 - Tdap)] Future Scheduled 1973 DTAP/TDAP/TD VACCINES [facility] 00:00:00 (1 - Tdap) [code = Medical C enter DTAP/TDAP/TD VACCINES (1 - Tdap)] Future Scheduled 1960 PNEUMOCOCCAL 65+ YRS ([address] [facility] 00:00:00 - PCV) [code = Medical Cente r PNEUMOCOCCAL 65+ YRS (1 - PCV)] Future Scheduled 1960 PNEUMOCOCCAL 65+ YRS ([address] [facility] 00:00:00 - PCV) [code = Medical Cente r PNEUMOCOCCAL 65+ YRS (1 - PCV)] Future Scheduled 1960 PNEUMOCOCCAL 65+ YRS ([address] [facility] 00:00:00 - PCV) [code = Medical Cente r PNEUMOCOCCAL 65+ YRS (1 - PCV)] Future Scheduled 1955-01-25 COVID-19 VACCINE (#1) [facility] 00:00:00 [code = COVID-[address] VACCINE (#1)] Future Scheduled 1955-01-25 COVID-19 VACCINE (#1) [facility] 00:00:00 [code = COVID-[address] VACCINE (#1)] Future Scheduled 1955-01-25 COVID-19 VACCINE (#1) [facility] 00:00:00 [code = COVID-[address] VACCINE (#1)] Future Scheduled 1954 CT Colonography (combo) [facility] 00:00:00 [code = CT Colonography [facility] (combo)] Future Scheduled 1954 Screening for malignant [facility] 00:00:00 neoplasm of colon Medical Ce nter (procedure) [code = 287697502] Future Scheduled 1954 Screening for malignant [facility] 00:00:00 neoplasm of colon Medical Ce nter (procedure) [code = 687137534] Future Scheduled 1954 Screening for malignant [facility] 00:00:00 neoplasm of colon Medical Ce nter (procedure) [code = 631902394] Future Scheduled 1954 Screening for malignant [facility] 00:00:00 neoplasm of colon Medical Ce nter (procedure) [code = 673626993] Future Scheduled 1954 Sigmoidoscopy [code = [facility] Sigmoidoscopy] Medical Cente r Future Scheduled 1954 CT Colonography (combo) [facility] 00:00:00 [code = CT Colonography [facility] (combo)] Future Scheduled 1954 Screening for malignant [facility] 00:00:00 neoplasm of colon Medical Ce nter (procedure) [code = 657712594] Future Scheduled 1954 Screening for malignant [facility] 00:00:00 neoplasm of colon Medical Ce nter (procedure) [code = 762811040] Future Scheduled 1954 Screening for malignant [facility] 00:00:00 neoplasm of colon Medical Ce nter (procedure) [code = 953801858] Future Scheduled 1954 Screening for malignant [facility] 00:00:00 neoplasm of colon Medical Ce nter (procedure) [code = 536623600] Future Scheduled 1954 Sigmoidoscopy [code = [facility] 00:00:[facility] Sigmoidoscopy] Medical Cente r Future Scheduled 1954 CT Colonography (combo) [facility] 00:00:00 [code = CT Colonography [facility] (combo)] Future Scheduled 1954 Screening for malignant [facility] 00:00:00 neoplasm of colon Medical Ce nter (procedure) [code = 137565618] Future Scheduled 1954 Screening for malignant [facility] 00:00:00 neoplasm of colon Medical Ce nter (procedure) [code = 014860600] Future Scheduled 1954 Screening for malignant [facility] 00:00:00 neoplasm of colon Medical Ce nter (procedure) [code = 641424622] Future Scheduled 1954 Screening for malignant [facility] 00:00:00 neoplasm of colon Medical Ce nter (procedure) [code = 473029627] Future Scheduled 1954 Sigmoidoscopy [code = [facility] 00:00:[facility] Sigmoidoscopy] Medical Cente r Future Scheduled 1954 CT Colonography (combo) [facility] 00:00:00 [code = CT Colonography [facility] (combo)] Future Scheduled 1954 Screening for malignant [facility] 00:00:00 neoplasm of colon Medical Ce nter (procedure) [code = 429951404] Future Scheduled 1954 Screening for malignant [facility] 00:00:00 neoplasm of colon Medical Ce nter (procedure) [code = 747083892] Future Scheduled 1954 Screening for malignant [facility] 00:00:00 neoplasm of colon Medical Ce nter (procedure) [code = 509596532] Future Scheduled 1954 Screening for malignant [facility] 00:00:00 neoplasm of colon Medical Ce nter (procedure) [code = 407880861] Future Scheduled 1954 Sigmoidoscopy [code = [facility] 00:00:00 Sigmoidoscopy] Medical Cente r Future Scheduled 1954 CT Colonography (combo) [facility] 00:00:00 [code = CT Colonography [facility] (combo)] Future Scheduled 1954 Screening for malignant [facility] 00:00:00 neoplasm of colon Medical Ce nter (procedure) [code = 410466635] Future Scheduled 1954 Screening for malignant [facility] 00:00:00 neoplasm of colon Medical Ce nter (procedure) [code = 705676786] Future Scheduled 1954 Screening for malignant [facility] 00:00:00 neoplasm of colon Medical Ce nter (procedure) [code = 468425503] Future Scheduled 1954 Screening for malignant [facility] 00:00:00 neoplasm of colon Medical Ce nter (procedure) [code = 887861880] Future Scheduled 1954 Sigmoidoscopy [code = [facility] 00:00:[facility] Sigmoidoscopy] Medical Cente r Future Scheduled 1954 CT Colonography (combo) [facility] 00:00:00 [code = CT Colonography [facility] (combo)] Future Scheduled 1954 Screening for malignant [facility] 00:00:00 neoplasm of colon Medical Ce nter (procedure) [code = 705381930] Future Scheduled 1954 Screening for malignant [facility] 00:00:00 neoplasm of colon Medical Ce nter (procedure) [code = 908635832] Future Scheduled 1954 Screening for malignant [facility] 00:00:00 neoplasm of colon Medical Ce nter (procedure) [code = 048362014] Future Scheduled 1954 Screening for malignant [facility] 00:00:00 neoplasm of colon Medical Ce nter (procedure) [code = 774429239] Future Scheduled 1954 Sigmoidoscopy [code = [facility] 00:[facility] Sigmoidoscopy] Medical Centbarrett r Encounters Start End Encounter Admission Attending Care Care Encounter Source Date/Time Date/Time Type Type Clinicians Facility Department ID 2022-08-30 Outpatient Yates, [facility] [id number] Common 16:01:00 Hayden [id number] [facility] 2022-04-11 [facility] [id number] Univers 15:13:09 [place] ity [facility] 2022-03-30 Inpatient R [facility] SOR [id number] Univers 07:05:00 [place] ity [facility] 2022-03-22 [facility] [id number] Common 09:04:01 Hayden [address] [facility] 2022-03-21 [facility] [id number] Common 07:49:00 Hayden [id number] [facility] 2022-03-10 [facility] [id number] Common 12:17:00 Hayden [address] [facility] 2022-03-08 [facility] [id number] Common 16:43:01 Hayden [address] [facility] 2022-03-07 [facility] [id number] Common 16:28:00 Hayden [address] [facility] 2022-03-03 Out[facility]ates[facility] [id number] Common 16:28:00 Hayden [address] [facility] 2021-11-10 [facility] [id number] Common 15:04:02 Hayden [address] [facility] 2021-10-06 Out[facility]ates[facility] [id number] Common 14:28:00 Hayden [address] [facility] 2021-08-02 [facility] [id number] Common 09:57:00 Hayden [facility] 2021-04-22 Out[facility]ates[facility] [id number] Common 08:56:00 Hayden [facility] 2021-04-07 Outpatient Yates, [facility] [id number] Common 13:32:01 Hayden [facility] 2021-03-10 Outpatient Yates, [facility] [id number] Common 14:37:39 Hayden [facility] 2021-03-10 Outpatient Yates, [facility] [id number] Common 14:33:51 Hayden [facility] 2021-03-10 Outpatient Yates, [facility] [id number] Common 14:30:14 Hayden [facility] 2021-03-10 Outpatient Yates, [facility] [id number] Common 14:13:59 Hayden [address] [facility] 2021-03-10 Outpatient Yates, [facility] [id number] Common 13:28:57 Hayden [address] [facility] 2021-03-10 Outpatient Yates, [facility] [id number] Common 13:07:02 Hayden [address] [facility] 2021-03-10 Outpatient Yates, [facility] [id number] Common 12:18:05 Hayden [address] [facility] 2021-03-10 Outpatient Yates, [facility] [id number] Common 11:46:05 Hayden [address] [facility] 2021-03-10 Outpatient Ytaes, [facility] [id number] Common 11:21:25 Hayden [address] [facility] 2021-03-10 [facility] [facility] [id number] Common 11:21:01 Hayden [address] [facility] 2021-03-10 Outpatient Long, [facility] [id number] Common 11:20:35 [id number] [facility] 2021-03-10 Outpatient Blessing Cast[facility] [id number] Common 11:16:04 [id number] [facility] 2020-12-11 [facility] [id number] Univers 12:21:59 [place] ity [facility] 2020-12-11 Emergency [facility] [id number] Univers 09:50:19 ity [facility] 2022-09-05 2022-09-05 [facility] 1.2.840.114 1 [id number] Univers 15:08:05 23:59:00 Encounter [place] 350.1.13.10 [place] [phone] [place] kathleen RUSSELLVioleta 809 [facility] 2022-09-05 2022-09-05 [facility] [id number] Univers 14:20:00 15:38:35 [place] ity [facility] 2022-09-05 2022-09-05 Office [facility] 1.2.840.114 10 [id number] Univers 14:20:00 15:38:35 [place] 350.1.13.10 [place] [phone] [place] rafaelnela JUSTINA 198 [facility] 2022-09-05 2022-09-05 [facility] 1.2.840.114 1 [id number] Univers 14:40:47 15:07:00 Encounter [place] 350.1.13.10 [place] [phone] [place] kathleen HORN 809 [facility] 2022-08-31 2022-08-31 Outpatient R SHERLY [facility] [id number] Univers 13:00:00 13:00:00 ROB[place] ity [facility] 2022-08-31 2022-08-31 [facility] [id number] Univers 13:00:00 13:00:00 ROBERT ity [facility] 2022-08-31 2022-08-31 Outpatient R SHERLY [facility] [id number] Univers 13:00:00 13:00:00 ROBERT ity of [facility] 2022-08-31 2022-08-31 Telephone Sherly [facility] 1.2.840.114 [id number] Univers 00:00:00 00:00:00 Robert [place] 350.1.13.10 i ty of [place] [phone] [place] dical NAL 204 [facility] 2022-08-29 2022-08-29 [facility] 1.2.840.114 104 [id number] Univers 00:00:00 00:00:00 Robert [place] 350.1.13.10 i ty of [facility] 4.2.7.2.[place] [phone] [place] dical NAL 188 [facility] 2022-08-28 2022-08-28 Outpatient R SHERLY [facility] [id number] Univers 15:38:12 23:59:00 ROBERT ity of [facility] 2022-08-28 2022-08-28 [facility] 1.2.741.601 [id number] Univers 15:38:12 23:59:00 Encounter [facility] 350.1.13.10 it[place] LOREN[place] [id number] [address] ([facility]) 2022-08-26 2022-08-26 Outpatient R SHERLY [facility] [id number] Univers 00:00:00 00:00:00 ROBERT ity of [facility] 2022-08-25 2022-08-25 [facility]phone [facility] 1.2.840.114 [id number] Univers 00:00:00 00:00:00 [place] 350.1.13.10 [place].2.[place] [id number] [place] dicnela VICTORY 198 [facility] 2022-08-23 2022-08-23 Outpatient R [facility] [id number] Univers 13:30:00 14:43:36 ROBERT ity of [facility] 2022-08-22 2022-08-22 Outpatient R [facility] 813 [id number] Univers 14:00:00 14:00:00 [place] ity of [facility] 2022-08-19 2022-08-19 Transition ADRIANE Shelton 1.2.840.114 104 [id number] Univers 00:00:00 00:00:00 of Care Randa REDDY 350.1.13.10 it y of [place].2.686 [place] [id number] [facility] [address] 2022-08-15 2022-08-18 [facility] ValenciaRafael [facility] 1.2.840.1 14 [id number] Univers 21:17:00 18:35:00 Encounter Nacho Blanco 350.1.13. 10 ity of [place].2.7.2.[place] [phone] [facility] [address] 2022-08-15 2022-08-15 Outpatient R [facility] [id number] Univers 13:50:00 15:25:48 [place] ity [facility] 2022-08-15 2022-08-15 Office [facility] 1.2.840.114 10 [id number] Univers 13:50:00 15:25:48 Visit [place] 350.1.13.10 ity of [facility] 4.2.7.2.686 [place] AT [phone] [place] kathleen WELLS 198 [facility] 2022-08-15 2022-08-15 [facility] 153 [id number] Univers 13:50:00 15:25:48 [place] ity [facility] 2022-08-15 2022-08-15 Orders Doctor LAMAR 1.2.840.114 [id number] Univers 00:00:00 00:00:00 Only Unassigned, ZOFIA 350.1.13.10 ity of [place] [facility] 4.2.7.2.686 Devin as [id number] [facility] [address] [place] [address] 2022-08-15 2022-08-15 Telephone [facility] 1.2.840.114 [id number] Univers 00:00:00 00:00:00 [place] 350.1.13.10 [place] [phone] [place] kathleen HORN [address] [place] [address] 2022-08-12 2022-08-12 Telephone [facility] 1.2.840.114 [id number] Univers 00:00:00 00:00:00 [place] 350.1.13.10 [place] [phone] [place] kathleen HORN [address] [place] [address] 2022-08-11 2022-08-11 [facility] 1.2.840.114 [id number] Univers 00:00:00 00:00:00 [place] 350.1.13.10 [place].2.[place].2.[place] [id number] [place] kathleen HORN [address] [place] [address] 2022-08-09 2022-08-09 Outpatient R [facility] [id number] Univers 09:00:00 13:47:47 [place] it[place] of [facility] 2022-08-09 2022-08-09 Office [facility] 1.2.840.114 10 [id number] Univers 09:00:00 13:47:47 Visit [place] 350.1.13.10 it[place] of C[place] 4.2.[place].2.[place] [phone] [place] kathleen HORN [address] [place] [address] 2022-08-09 2022-08-09 Outpatient R [facility] [id number] Univers 10:00:00 10:00:00 ROBERT ity of [facility] 2022-08-08 2022-08-08 Transition ADRIANE Rebolledo 1.2.840.114 104 [id number] Univers 00:00:00 00:00:00 of Care Antwan REDDY 350.1.13.10 [place] [phone] [facility] [address] 2022-07-30 2022-08-06 Inpatient X BLAINE [facility] ALFREDA [id number] Univers 19:37:00 12:04:00 [place] ity of [facility] 2022-07-30 2022-08-06 Hospital Rafael Valencia [facility] 1.2.840.1 14 [id number] Univers 19:37:00 12:04:00 Encounter Nacho Blanco 350.1.13. 10 ity of [place] 4.2.7.2.686 [facility] [phone] [facility] [address] 2022-08-06 2022-08-06 Nurse TONY Ortiz 1.2.840.114 [id number] Univers 00:00:00 00:00:00 Triage Koryjaleesamabel ARMIJO 350.1.13.10 ity of HOSPITAL 4.2.7.2.686 Devin as [phone] [facility] [address] 2022-07-28 2022-07-28 Office [facility] 1.2.840.114 10 [id number] Univers 15:20:00 15:30:00 Visit [place] PRIMARY 350.1.13.10 it y of C[place].2.[place] [phone] [place] dical [address] 2022-07-28 2022-07-28 Outpatient R [facility] [id number] Univers 15:20:00 15:20:00 [place] ity of [facility] 2022-07-27 2022-07-27 Orders Doctor TONY 1.2.840.114 [id number] Univers 00:00:00 00:00:00 Only Unassigned, ZOFIA 350.1.13.10 ity of [place] [facility] 4.2.7.2.686 Devin as [phone] [facility] [address] 2022-06-29 2022-06-29 Telephone [facility] 1.2.840.114 [id number] Univers 00:00:00 00:00:00 [place] 350.1.13.10 it[place] C[place] [id number] [place] kathleen HORN [address] [facility] 2022-06-24 2022-06-24 Orders Doctor TONY 1.2.840.114 [id number] Univers 00:00:00 00:00:00 Only Unassigned, ZOFIA 350.1.13.10 ity of [place] [facility] 4.2.7.2.686 Devin as [phone] [facility] [address] 2022-06-22 2022-06-22 Letter Diseases-Mi [facility] 1.2.840.114 [id number] Univers 00:00:00 00:00:00 (Out) mb, Y HEALTH 350.1.13.10 i ty of Infectious CLINICS 4.2.7.2.686 [place] [phone] [facility] [address] 2022-06-14 2022-06-14 Transition ADRIANE Rebolledo 1.2.840.114 102 [id number] Univers 00:00:00 00:00:00 of Care Antwan Lindsey [place] 350.1.13.10 [place] [id number] [facility] [address] 2022-06-06 2022-06-12 Inpatient X [facility] AL[facility]ED[facility] [id number] Univers 13:16:00 17:09:00 AUDREY ity of [facility] 2022-06-06 2022-06-12 [facility] AbhishekLaury [facility] 1.2.840.1 14 [id number] Univers 13:16:00 17:09:00 Encounter Jennifer Martinez HEALTH 350.1.13.10 ity of Haylee Mcdonald 4.2.7.2.686 [facility] [phone] Medical CAMPUS [address] [place] [address] ([facility]) 2022-06-11 2022-06-11 Phi Cole [facility] [id number] 00:00:00 00:00:00 [facility] 2022-06-11 2022-06-11 Phi Cole [facility] [id number] 00:00:00 00:00:00 [facility] 2022-06-09 2022-06-09 Outpatient R [facility] 019 [id number] Univers 13:20:00 13:20:00 [place] ity of [facility] 2022-06-07 2022-06-07 Telephone [facility] 1.2.840.114 [id number] Univers 00:00:00 00:00:00 [place] 350.1.13.10 it[place] C[place].2.[place].2.[place] [phone] [place] kathleen HORN [address] [place] [address] 2022-05-25 2022-05-25 Patient [facility] 1.2.840.114 10 [id number] Univers 00:00:00 00:00:00 Secure Msg [place] 350.1.13.10 it[place] of C[place] 4.2.7.2.[place] [phone] [place] kathleen HORN [address] [place] [address] 2022-05-19 2022-05-20 Outpatient R [facility] [id number] Univers 15:30:00 08:08:27 [place] ity [facility] 2022-05-19 2022-05-20 Office [facility] 1.2.840.114 10 [id number] Univers 15:30:00 08:08:27 Visit [place] PR[place] 350.1.13.10 it y of CARE 4.2.7.2.686 [place] [facility] [id number] [place] kathleen [address] [place] [address] 2022-05-16 2022-05-16 Transition ADRIANE Echevarria 1.2.840.114 10 [id number] Univers 00:00:00 00:00:00 of Care Jennifer REDDY 350.1.13.10 i ty [place] [phone] [address] 2022-05-16 2022-05-16 Telephone [facility] 1.2.840.114 [id number] Univers 00:00:00 00:00:00 [place] 350.1.13.10 it[place] C[place].2.[place].2.[place] [phone] N[place] dical VICTORY 198 [facility] 2022-05-10 2022-05-13 [facility] [id number] Univers 07:08:00 17:43:00 [place]O ity of [facility] 2022-05-10 2022-05-13 Hospital Ambergrace [facility] 1.2.840 .114 [id number] Univers 07:08:00 17:43:00 Encounter [facility] 350.1.13.10 ity of [place] Juan Pablo [place] 4.2.7.2.686 [facility] [phone] Medical [address] ([facility]) 2022-05-10 2022-05-10 Surgery [facility] 1.2.840.114 10 [id number] Univers 16:20:00 17:16:00 [place] 350.1.13.10 it[place] of C[place] 4.2.7.2.[place] [phone] [place] kathleen HORN 020 [facility] 2022-05-05 2022-05-05 Office [facility] 1.2.840.114 10 [id number] Univers 16:50:00 17:00:00 Visit [place] 350.1.13.10 it y of CARE 4.2.7.2.[place] [id number] [place] kathleen [address] 2022-05-05 2022-05-05 [facility] 090 [id number] Univers 16:50:00 16:50:00 [place] it[place] [facility] 2022-05-02 2022-05-02 Outpatient R [facility] 223 [id number] Univers 16:40:00 16:40:00 [place] ity [facility] 2022-04-26 2022-04-26 [facility] Lindsay Franklin [facility] 1.2.840.114 101 [id number] Univers 14:02:30 23:59:00 Encounter SPECIALTY 350.1.13.10 it[place] of C[place] 4.2.7.2.[place] [phone] [place] kathleen HORN 809 [facility] 2022-04-26 2022-04-26 Outpatient R LINDSAY FRANKLIN [facility] [id number] Univers 14:02:21 23:59:00 ity of [facility] 2022-04-26 2022-04-26 [facility] Lindsay Franklin [facility] 1.2.840.114 101 [id number] Univers 14:02:21 23:59:00 Encounter SPECIALTY 350.1.13.10 it[place] C[place] 4[place]2.7.2.[place] [id number] [place] kathleen HORN 809 [facility] 2022-04-26 2022-04-26 Office [facility] 1.2.402.935 [id number] Univers 14:50:00 15:10:22 Visit SPECIALTY 350.1.13.10 it[place] of C[place] 4.2.7.2.[place] 503.6858687 [place] kathleen HORN 198 [facility] 2022-04-19 2022-04-19 Transition ADRIANE Rebolledo 1.2.840.114 101 [id number] Univers 00:00:00 00:00:00 of Care Antwan Portillo [place] 350.1.13.10 [place]2.[place] [id number] [facility] janis [address] 2022-04-19 2022-04-19 Telephone [facility] 1.2.840.114 [id number] Univers 00:00:00 00:00:00 [place] 350.1.13.10 it y of C[place] 4.2.7.2.686 [place] [phone] Nc rafael[address] 2022-04-18 2022-04-18 Telephone [facility] 1.2.840.114 [id number] Univers 00:00:00 00:00:00 [place] 350.1.13.10 it[place] of C[place] 4.2.7.2.[place] [phone] [place] kathleen HORN 198 [facility] 2022-04-11 2022-04-16 [facility] Faith Tejeda [facility] 1.2 .840.114 [id number] Univers 15:02:00 14:11:00 Encounter [facility] 350.1. 13.10 ity of Torivahidsheng Kevin HERSON 4.2.7.2.[address] [facility] [phone] Medical [address] ([facility]) 2022-04-13 2022-04-13 Surgery [facility] 1.2.840.114 10 [id number] Univers 12:34:00 14:58:00 [place] 350.1.13.10 [place] C[place] 4[place]2.[place].2.[place] [phone] [place] dical VICTORY 020 [facility] 2022-04-11 2022-04-11 [facility] 1.2.840.114 1 [id number] Univers 14:15:00 15:01:00 Encounter [place] 350.1.13.10 it[place] of C[place] 4.2.7.2.[place] [phone] [place] dical VICTORY 809 [facility] 2022-04-11 2022-04-11 Office [facility] 1.2.840.114 10 [id number] Univers 14:10:00 14:20:00 Visit [place] 350.1.13.10 it[place] of C[place] 4.2.7.2.[place] [phone] [place] dical VICTORY 198 [facility] 2022-04-11 2022-04-11 [facility] 1.2.840.114 1 [id number] Univers 13:52:27 14:14:00 Encounter [place] 350.1.13.10 it[place] of C[place] 4.2.7.2.[place] 528.3818859 [place]c dicnela WELLSY 809 [facility] 2022-04-11 2022-04-11 Outpatient R [facility] 089 [id number] Univers 13:52:08 14:14:00 [place] ity of [facility] 2022-04-11 2022-04-11 [facility] 1.2.840.114 1 [id number] Univers 13:52:08 14:14:00 Encounter [place] 350.1.13.10 it[place] of C[place] 4.2.7.2.[place] AT [id number] [place] kathleen HORN 809 [facility] 2022-04-11 2022-04-11 Outpatient R [facility] ALFREDA [id number] Univers 14:10:00 14:10:00 [place] ity [facility] 2022-04-11 2022-04-11 Orders Doctor LAMAR 1.2.840.114 [id number] Univers 00:00:00 00:00:00 Only Unassigned, ZOFIA 350.1.13.10 ity of [place] [facility] 4.2.7.2.686 Devin as [id number] [address] 2022-04-08 2022-04-08 Telephone [facility] 1.2.840.114 [id number] Univers 00:00:00 00:00:00 [place] 350.1.13.10 [place] C[place].2.7.2.[place] [phone] [place] rafaelnela JUSTINA 198 [facility] 2022-04-05 2022-04-05 Outpatient R [facility] [id number] Univers 08:35:00 15:30:00 [place] ity [facility] 2022-04-05 2022-04-05 [facility] 1.2.840.114 1 [id number] Univers 08:35:00 15:30:00 Encounter [place] HEALTH 350.1.13.10 [place] of [place] [phone] [address] ([facility]) 2022-04-05 2022-04-05 Surgery [facility] 1.2.840.114 10 [id number] Univers 11:17:00 12:02:00 [place] SPECIAL[place] 350.1.13.10 it[place] CARE 4.2.7.2.[place] [id number] [place] kathleen HORN 020 [facility] 2022-04-05 2022-04-05 Orders Doctor LAMAR 1.2.840.114 [id number] Univers 00:00:00 00:00:00 Only Unassigned, ZOFIA 350.1.13.10 ity of [place] [facility] 4.2.7.2.686 Devin as [id number] [facility] [address] 2022-04-04 2022-04-04 Transition ADRIANE Echevarria 1.2.840.114 10 [id number] Univers 00:00:00 00:00:00 of Care Jennifer José REDDY 350.1.13.10 i ty [place] [phone] [facility] [address] 2022-03-30 2022-03-30 [facility] 1.2.840.114 10 [id number] Univers 15:00:00 15:30:00 Visit [facility] 350.1.13.10 ity of [place].2.[place] [phone] [facility] [address] OFFICE BUILDING 2022-03-30 2022-03-30 Out[facility] [id number] Univers 15:00:00 15:00:00 [facility] 2022-03-30 2022-03-30 Outpatient [facility] [id number] Univers 15:00:00 15:00:00 [facility] 2022-03-22 2022-03-22 Telephone Ifeoma [facility] 1.2.840.114 [id number] Univers 00:00:00 00:00:00 [place] 350.1.13.10 [place]2.[place].2.[place] [phone] [place] kathleen HORN 198 [facility] 2022-03-22 2022-03-22 OFFICE [facility] [id number] Co mmon 00:00:00 00:00:00 VISIT Spirit ESTAB PT - CHI LEVEL 4 [facility] 2022-03-18 2022-03-18 Orders Doctor LAMAR 1.2.840.114 [id number] Univers 00:00:00 00:00:00 Only Unassigned, ZOFIA 350.1.13.10 ity of [place] [facility] 4.2.7.2.686 Devin as [id number] [address] 2022-03-18 2022-03-18 (TEL) STLMLC STLMLC [id number] Co mmon 00:00:00 00:00:00 [facility] 2022-03-17 2022-03-17 Telephone [facility] 1.2.840.114 [id number] Univers 00:00:00 00:00:00 [place] 350.1.13.10 it[place] C[place].2.[place] [phone] [place] kathleen HORN 198 [facility] 2022-03-17 2022-03-17 [facility] 1.2.840.114 [id number] Univers 00:00:00 00:00:00 [place] 350.1.13.10 it[place] C[place] 4[place]2.7.2.[place] [phone] Nc kathelen HORN 198 [facility] 2022-03-16 2022-03-16 [facility] 1.2.840.114 [id number] Univers 00:00:00 00:00:00 [place] 350.1.13.10 [place] C[place] 4[place]2.7.2.[place] [phone] [place] kathleen HORN 198 [facility] 2022-03-14 2022-03-14 [facility] 1.2.840.114 1 [id number] Univers 16:24:39 23:59:00 Encounter [place] 350.1.13.10 it[place] of C[place] 4[place]2.7.2.[place] [phone] Nc rafaelnela HORN 809 [facility] 2022-03-14 2022-03-14 [facility] 1.2.840.114 1 [id number] Univers 16:24:30 23:59:00 Encounter [place] 350.1.13.10 it[place] of C[place] 4.2.7.2.[place] [id number] [place] dicnela WELLSY 809 [facility] 2022-03-14 2022-03-14 Outpatient R [facility] [id number] Univers 15:50:00 16:57:51 [place] ity of [facility] 2022-03-14 2022-03-14 [facility] 1.2.840.114 10 [id number] Univers 15:50:00 16:57:51 Visit [place] SPECIAL[place] 350.1.13.10 it[place] of C[place]2.7.2.[place] [phone] [place] dicnela WELLSY 198 [facility] 2022-03-14 2022-03-14 [facility] 1.2.840.114 1 [id number] Univers 15:46:31 16:23:00 Encounter [place] 350.1.13.10 it[place] C[place] 4[place]2.7.2.[place] [phone] [place] dicnela WELLSY 809 [facility] 2022-03-14 2022-03-14 [facility] 1.2.840.114 1 [id number] Univers 15:46:23 16:23:00 Encounter [place] 350.1.13.10 it[place] of C[place] 4.2.7.2.[place] [id number] [place] dicnela WELLSY 809 [facility] 2022-03-14 2022-03-14 [facility] 1.2.840.114 1 [id number] Univers 15:45:00 15:45:00 Encounter [place] 350.1.13.10 it[place] of C[place] 4[place]2.7.2.[place] [id number] [place] dicnela WELLSY 809 [facility] 2022-03-14 2022-03-14 (TEL) [facility] [id number] Co mmon 00:00:00 00:00:00 [facility] 2022-03-10 2022-03-10 Orders Doctor LAMAR 1.2.840.114 [id number] Univers 00:00:00 00:00:00 Only Unassigned, ZOFIA 350.1.13.[address] [facility] 4.2.7.2.686 Devin as 485.5248355 [facility] [address] 2022-03-09 2022-03-09 (TEL) STLMLC STLMLC [id number] Co mmon 00:00:00 00:00:00 [facility] 2022-03-08 2022-03-08 (TEL) STLMLC STLMLC [id number] Co mmon 00:00:00 00:00:00 [facility] 2022-02-28 2022-02-28 Orders Doctor TONY 1.2.840.114 [id number] Univers 00:00:00 00:00:00 Only Unassigned, ZOFIA 350.1.13.[address] [facility] 4.2.7.2.686 Devin as [phone] [facility] 00[address] 2022-02-28 2022-02-28 (TEL) STLC STLMLC [id number] Co mmon 00:00:00 00:00:00 [facility] 2022-02-27 2022-02-27 Inpatient EM Dweik, HC[facility].01 [id number] [facility] 10:32:00 15:49:00 [place] 54 [facility] 2022-02-11 2022-02-25 Inpatient EM Dweik, [facility] [id number] [facility] 08:01:00 19:26:00 [place] 73 [facility] 2021-12-30 2022-01-14 Inpatient EM Dweik, [facility]ACL [facility].01 [id number] [facility] 19:27:00 20:01:00 Chel[place] 18 [facility] 2021-12-31 2021-12-31 Transition ADRIANE Shelton 1.2.840.114 [id number] Univers 00:00:00 00:00:00 of Care Randa REDDY 350.1.13.10 [place] [phone] [facility] [address] 2021-12-31 2021-12-31 Telephone Unknown, TRAUMA 1.2.840.114 [id number] Univers 00:00:00 00:00:00 Attending CENTER 350.1.13.10 [place] [phone] [facility] 014 Branch 2021-12-18 2021-12-30 Inpatient X KENDRICK CABRALES [facility] ALFRED[facility] 1 [id number] Univers 13:16:00 16:51:00 [facility]y [facility] 2021-12-18 2021-12-30 [facility] 1.2.840.1 14 [id number] Univers 13:16:00 16:51:00 Encounter Bansal Keri [facility] 350.1.13.10 ity of Veronica Zhu 4.2.7.2.686 [facility] [phone] Medical [address] ([facility]) 2021-12-27 2021-12-27 Outpatient R VIVIAN AL [facility] [id number] Univers 14:40:00 14:40:00 VIVIAN AL [facility] 2021-12-22 2021-12-22 Surgery Shalini [facility] 1.2.840.114 [id number] Univers 12:00:00 13:26:00 Vivian SPECIALTY 350.1.13.10 [place] [phone] [address] 2021-12-20 2021-12-20 Transition ADRIANE Shelton 1.2.840.114 [id number] Univers 00:00:00 00:00:00 of Care Randa REDDY 350.1.13.10 it [place] [phone] [facility] [address] 2021-12-15 2021-12-17 Outpatient X MARTIN CAMP [facility] [id number] Univers 19:05:00 19:30:00 MARTIN CMAP [facility] 2021-12-15 2021-12-17 Emergency Aquilino Luther [facility] 1.2.840.11 [id number] Univers 19:05:00 19:30:00 Merrill Yates 350.1.13.10 ity of [place]con[place] tolberten HERSON 4.2.7.2.686 [place] [phone] [facility] 115 [facility] ([facility]) 2021-12-15 2021-12-15 Transition ADRIANE Shelton 1.2.840.114 [id number] Univers 00:00:00 00:00:00 of Care Randa Елена REDDY 350.1.13.10 [place] [phone] [facility] [address] 2021-12-15 2021-12-15 Telephone [facility] 1.2.840.114 [id number] Univers 00:00:00 00:00:00 Valentina Lindsey PRIMARY 350.1.13.10 it y of [place] [phone] [place] dicnc [address] 2021-12-02 2021-12-14 Inpatient X [facility] SOR [id number] Univers 12:40:00 18:19:00 VALENTINA ity of [facility] 2021-12-02 2021-12-14 [facility] Caprice Monreal 1.2.840.1 14 [id number] Univers 12:40:00 18:19:00 Encounter Zaid Cai 350.1.13.10 ity of Elisa Joyce [facility] 4.2.7.2.686 [facility] [phone] [facility] 091 Branch 2021-12-14 2021-12-14 (TEL) [facility] [id number] Co mmon 00:00:00 00:00:00 [facility] 2021-12-08 2021-12-08 Surgery DengKATIA mo 1.2.840.114 [id number] Univers 09:00:00 10:56:00 Valentina Lindsey ZOFIA 350.1.13.10 it y of HOSPITAL 4.2.7.2.686 Devin as [phone] [facility] 103 [address] 2021-12-05 2021-12-05 Surgery KATIA Adames 1.2.578.780 [id number] Univers 17:40:00 19:57:00 Tony ZOFIA 350.1.13.10 it y of [facility] 4.2.7.2.686 Devin as [phone] [facility] 103 [address] 2021-12-03 2021-12-03 Surgery KATIA Joyce 1.2.708.077 [id number] Univers 07:56:00 09:21:00 Elisa ARMIJO 350.1.13.10 it y of [facility] 4.2.7.2.686 Devin as [phone] [facility] [address] 2021-11-30 2021-11-30 Emergency X [facility] [id number] Univers 20:27:00 23:45:00 FOLUSHO ity of [facility] 2021-11-30 2021-11-30 Emergency [facility] 1.2.840.114 [id number] Univers 20:27:00 23:45:00 [facility] Andrew [facility] 350.1.13.10 ity of [place] 4.2.7.2.686 [place] [facility] [phone] [facility] 084 Branch 2021-11-30 2021-11-30 Orders Doctor TNOY 1.2.840.114 [id number] Univers 00:00:00 00:00:00 Only Unassigned, ZOFIA 350.1.13.10 ity of [place] [facility] 4.2.7.2.686 Devin as [phone] [facility] 009 Branch 2021-10-06 2021-10-06 (TEL) [facility] [id number] Co mmon 00:00:00 00:00:00 Spirit - CHI [facility] 2021-08-12 2021-08-12 Abstract Kenji [facility] [id number] 00:00:00 00:00:00 [facility] 2021-08-06 2021-08-06 Telephone Sunny [facility] [id number] 00:00[facility]00 00:00:00 Bebe Jamil [facility] 2021-08-05 2021-08-05 Orders Abdulaziz, [facility] [id number] [facility] 00:00:00 00:00:00 Only [facility] 2021-08-05 2021-08-05 Telephone Sommer [facility] [id number] 00:00[facility]00 00:00:00 [facility] 2021-08-04 2021-08-04 Office Judie Oliva [facility] [id number] 14:00:00 14:30:00 Visit Abdulaziz [facility] 2021-08-02 2021-08-02 [facility] [id number] Co mmon 00:00:00 00:00:00 VISIT Michael HERNANDEZ - KORINA LEVEL 4 [facility] 2021-07-14 2021-07-14 Documentat Bhavesh [facility] [id number] 00:00[facility]00 00:00:00 ion [facility] 2021-07-09 2021-07-09 (TEL) [facility] [id number] Co mmon 00:00:00 00:00:00 Spirit - KORINA [facility] 2021-04-23 2021-04-23 Orders Abdulaziz [facility] [id number] 00:00:00 00:00:00 Only [facility] 2021-04-23 2021-04-23 Telephone Sommer [facility] [id number] 00:00[facility]00 00:00:00 [facility] 2021-04-22 2021-04-22 Orders Abdulaziz [facility] [id number] 00:00:00 00:00:00 Only [facility] 2021-04-21 2021-04-21 Outpatient R RADIOLOGY [facility] [id number] [facility] 12:16:13 23:59:00 ity of [facility] 2021-04-21 2021-04-21 Hospital Radiology [facility] 1.2.840.114 [id number] Univers 12:16:13 23:59:00 Encounter [place] 350.1.13.10 ity [facility] 4.2.7.2.686 [facility] [phone] [facility] 806 Branch 2021-04-14 2021-04-14 (TEL) STLMLC STLMLC [id number] Co mmon 00:00:00 00:00:00 [facility] 2021-04-10 2021-04-10 RefJudie Brown [facility] [id number] 00:00[facility]00 00:00:00 [facility] 2021-04-07 2021-04-07 OFFICE STLMLC STLMLC [id number] Co mmon 00:00:00 00:00:00 VISIT Spirit ESTAB PT - CHI LEVEL 4 [facility] 2021-03-03 2021-03-03 OFFICE STLMLC STLMLC [id number] Co mmon 00:00:00 00:00:00 VISIT Spirit ESTAB PT - CHI LEVEL 4 [facility] 2021-02-24 2021-02-24 OFFICE STLMLC STLMLC [id number] Co mmon 00:00:00 00:00:00 VISIT EST Spir it PT LEVEL 3 - CHI [facility] 2021-02-22 2021-02-22 (TEL) STLMLC STLMLC [id number] Co mmon 00:00:00 00:00:00 [facility] 2021-01-06 2021-01-06 (TEL) STLMLC STLMLC [id number] Co mmon 00:00:00 00:00:00 [facility] 2021-01-06 2021-01-06 Telephone Sommer [facility] [id number] 00:00:00 00:00:00 [facility] 2021-01-06 2021-01-06 Telephone Devi [facility] [id number] 00:00:00 00:00:00 [facility] 2021-01-05 2021-01-05 (TEL) STLMLC STLMLC [id number] Co mmon 00:00:00 00:00:00 [facility] 2021-01-04 2021-01-04 OFFICE STLMLC STLMLC [id number] Co mmon 00:00:00 00:00:00 VISIT [facility] PT - CHI [facility] 4 [facility] 2020-12-16 2020-12-16 (TEL) STLMLC STLMLC [id number] Co mmon 00:00:00 00:00:00 [facility] 2020-12-09 2020-12-09 Outpatient [facility] [id number] [facility] 15:14:16 15:14:16 ANTHONY 2020-12-03 2020-12-03 OFFICE STLMLC STLMLC [id number] Co mmon 00:00:00 00:00:00 VISIT [facility] PT - CHI [facility] 4 [facility] 2020-12-03 2020-12-03 (TEL) STLMLC STLMLC [id number] Co mmon 00:00:00 00:00:00 [facility] 2020-11-09 2020-11-09 Hospital Radiology [facility] 1.2.840.114 [id number] Univers 13:30:25 23:59:00 Encounter [place] 350.1.13.10 ity [facility] 4.2.7.2.686 [facility] [phone] [place] [address] Branch 2020-11-09 2020-11-09 Outpatient R RADIOLOGY [facility] [id number] Univers 00:00:00 00:00:00 ity of [facility] 2020-11-02 2020-11-02 (TEL) STLMLC STLMLC [id number] Co mmon 00:00:00 00:00:00 [facility] 2020-09-09 2020-09-09 Outpatient EL [facility]H [facility] [id number] [facility] 00:00:00 00:00:00 2020-09-03 2020-09-03 OFFICE STLMLC STLMLC [id number] Co mmon 00:00:00 00:00:00 VISIT Spirit ESTAB PT - CHI LEVEL 4 [facility] 2020-09-03 2020-09-03 SUB ANNUAL STLMLC STLMLC [id number] Common 00:00:00 00:00:00 MCR Spirit WELLNESS - CHI VISIT [facility] 2020-08-19 2020-08-19 (TEL) STLMLC STLMLC [id number] Co mmon 00:00:00 00:00:00 Spirit - [facility] 2020-06-19 2020-06-19 (TEL) STLMLC STLMLC [id number] Co mmon 00:00:00 00:00:00 Spirit - [facility] 2020-06-18 2020-06-18 (TEL) STLC STLC [id number] Co mmon 00:00:00 00:00:00 Spirit CHI [facility] 2020-06-02 2020-06-[address] [facility] [id number] SLE 00:00:00 00:00:00 2020-04-20 2020-04-20 Patient [facility] 1.2.840.114 [id number] Univers 00:00:00 00:00:00 Outreach [facility] 350.1.13.10 [facility] 4.2.7.2.686 [place]arghese GEE [id number] [place] dical [address] 2020-04-14 2020-04-14 [address] OLIVA JUDIE [facility] [id number] SLE 00:00:00 00:00:00 2020-04-14 2020-04-14 Outpatient KOKI JUDIE OLIVA [facility] SLE [id number] SLEH 00:00:00 00:00:00 2020-03-17 2020-03-17 Outpatient SLE SLE [id number] [facility] 13:14:24 13:14:24 2020-03-17 2020-03-17 Outpatient SLE SLE [id number] [facility] 00:00:00 00:00:00 2020-03-17 2020-03-17 Outpatient KOKI PJJUDIE JUSTICE [facility] SLE [id number] SLEH 00:00:00 00:00:00 2020-03-17 2020-03-17 Outpatient JUDIE SAWYER [facility] [id number] [facility] 00:00:00 00:00:00 2020-03-05 2020-03-05 Outpatient JUDIE SAWYER [facility] [id number] [facility] 00:00:00 00:00:00 2020-03-03 2020-03-03 Outpatient EL JUDIE OLIVA [facility] [id number] [facility] 00:00:00 00:00:00 2020-03-02 2020-03-02 (TEL) STLMLC STLMLC [id number] Co mmon 00:00:00 00:00:00 [facility] 2020-02-28 2020-02-28 Emergency ER [facility] Emergency [id number] [facility] 08:27:00 08:27:00 2020-02-24 2020-02-24 Outpatient NINA GARCÍA [facility] [id number] [facility] 00:00:00 00:00:00 [facility] 2020-02-24 2020-02-24 [facility] [id number] [facility] 00:00:00 00:00:00 2020-02-21 2020-02-21 (TEL) STLMLC STLMLC [id number] Co mmon 00:00:00 00:00:00 [facility] 2020-02-20 2020-02-20 (TEL) STLMLC STLMLC [id number] Co mmon 00:00:00 00:00:00 [facility] 2020-02-20 2020-02-20 (TEL) STLMLC STLMLC [id number] Co mmon 00:00:00 00:00:00 [facility] 2020-02-19 2020-02-19 (TEL) STLMLC STLMLC [id number] Co mmon 00:00:00 00:00:00 [facility] 2020-02-18 2020-02-18 OFFICE STLMLC STLMLC [id number] Co mmon 00:00:00 00:00:00 VISIT Spirit ESTAB PT - CHI LEVEL 4 [facility] 2020-01-27 2020-01-27 Orders Doctor TONY 1.2.840.114 [id number] Univers 00:00:00 00:00:00 Only Unassigned, ZOFIA 350.1.13.10 ity of [place] [facility] 4.2.7.2.686 Devin as [phone] [address] 2020-01-22 2020-01-22 (TEL) STLMLC STLC [id number] Co mmon 00:00:00 00:00:00 Spirit - [facility]I [facility] 2020-01-13 2020-01-13 Orders Doctor TONY 1.2.840.114 [id number] Univers 00:00:00 00:00:00 Only Unassigned, ZOFIA 350.1.13.10 ity of [place] [facility] 4.2.7.2.686 Devin as [id number] [address] 2019-12-23 2019-12-23 Hospital [facility] 1.2.840.114 [id number] Univers 13:30:00 23:59:00 Encounter [place] [facility] 350.1.13.10 it[place] [phone] [place] kathleen HORN 809 [facility] 2019-12-23 2019-12-23 Office [facility] 1.2.840.114 [id number] Univers 12:57:42 14:55:47 Visit [place] SPECIAL[place] 350.1.13.10 it[place] of [place] [id number] [place] kathleen HORN 198 [facility] 2019-12-23 2019-12-23 Outpatient R [facility] [id number] Univers 14:30:00 14:30:00 [place] ity of [facility] 2019-12-11 2019-12-11 Telephone [facility] 1.2.840.114 [id number] Univers 00:00:00 00:00:00 [place] SPECIALTY 350.1.13.10 it[place] of [place].2.[place] [phone] [place] kathleen HORN 198 [facility] 2019-12-02 2019-12-02 Outpatient R [facility] [id number] Univers 14:30:00 14:30:00 ity of [facility] 2019-12-02 2019-12-02 Electrolysis Needle Operator Room, Vls Ortho Cast [facility] 1. 2.840.114 [id number] Univers 12:53:23 13:31:27 Visit Ifeoma, [place] SPECIAL[facility] 350.1.13.1 0 ity of CARE 4.2.7.2.686 [facility] AT [phone] [place] kathleen HORN 198 [facility] 2019-11-25 2019-11-25 Outpatient R [facility] [id number] Univers 14:30:00 14:30:00 ity of [facility] 2019-11-21 2019-11-21 OFFICE STLMLC STLMLC [id number] Co mmon 00:00:00 00:00:00 VISIT Michael HERNANDEZ PT - CHI LEVEL 4 [facility] 2019-11-11 2019-11-11 [facility] 1.2.840.114 [id number] Univers 13:33:39 23:59:00 Encounter [place] SPECIALTY 350.1.13.10 ity of CARE 4.2.7.2.686 [facility] AT [phone] [place] kathleen HORN 809 [facility] 2019-11-11 2019-11-11 Office [facility] 1.2.840.114 [id number] Univers 13:13:55 14:53:15 Visit [place] SPECIALTY 350.1.13.10 ity of CARE 4.2.7.2.686 [facility] AT [phone] [place] kathleen HORN 198 [facility] 2019-11-11 2019-11-11 Outpatient R [facility] [id number] Univers 14:00:00 14:00:00 [place] ity of [facility] 2019-11-06 2019-11-06 OFFICE STLMLC STLMLC [id number] Co mmon 00:00:00 00:00:00 VISIT Michael ESTAB PT - CHI LEVEL 4 [facility] 2019-11-06 2019-11-06 SUB ANNUAL STLMLC STLMLC [id number] Common 00:00:00 00:00:00 MCR Spirit WELLNESS - CHI VISIT [facility] 2019-11-04 2019-11-04 Outpatient R DIANE [facility] [id number] Univers 13:50:00 13:50:00 JOAN ity of [facility] 2019-10-24 2019-10-24 Office [facility] 1.2.840.114 [id number] Univers 15:22:50 17:21:57 [facility] 350.1.13.10 it y of [place] 4.2.7.2.686 [place] [facility] [phone] [address] 2019-10-24 2019-10-24 Outpatient [facility] [id number] Univers 16:10:00 16:10:00 [place] ity of [facility] 2019-10-08 2019-10-08 Hospital [facility] 1.2.840.114 [id number] Univers 08:19:00 13:05:00 [facility] 350.1.13.10 ity of [facility] 4.2.7.2.686 [facility] [phone] [address] ([facility]) 2019-10-06 2019-10-06 Letter TONY Balderrama 1.2.840.114 [id number] Univers 00:00:00 00:00:00 (Out) Belinda ARMIJO 350.1.13.10 it y of [facility] 4.2.7.2.686 Devin [phone] [facility] [address] 2019-10-04 2019-10-04 Laboratory Only, Adc Test [facility] 1.2.840. 114 [id number] Univers 15:43:34 15:58:34 Only Alejandro Hayward 350.1.13.10 ity of [place] 4.2.7.2.686 [facility] [phone] [facility] [address] 2019-10-04 2019-10-04 Outpatient R [facility] [id number] Univers 15:45:00 15:45:00 ity of [facility] 2019-10-04 2019-10-04 Orders Doctor LAMAR 1.2.840.114 [id number] Univers 00:00:00 00:00:00 Only Unassigned, ZOFIA 350.1.13.10 ity of [place] [facility] 4.2.7.2.686 Devin as [phone] [facility] [address] 2019-10-03 2019-10-03 Outpatient Brazphani Ni 32 [id number] Common 14:04:00 14:04:00 t SureGene Spir it [employer] [facility] 2019-09-23 2019-09-24 Office [facility] 1.2.840.114 [id number] Univers 12:14:59 16:09:15 Visit [place] 350.1.13.10 it[place].2.[place] AT [phone] [place] rafaelnela WELLSVioleta 198 [facility] 2019-09-23 2019-09-23 [facility] 1.2.840.114 [id number] Univers 13:00:00 23:59:00 Encounter [place] 350.1.13.10 [place]2.7.2.[place] [phone] [place] kathleen HORN 809 [facility] 2019-09-23 2019-09-23 Outpatient R [facility] [id number] Univers 13:20:00 13:20:00 [place] ity of [facility] 2019-09-16 2019-09-16 Transition Adriane Rebolledo 1.2.840.114 [id number] Univers 00:00:00 00:00:00 of Care Antwan Reddy 350.1.13.10 ity of [place]2.7.2.686 [place] [phone] [facility] [address] 2019-09-12 2019-09-13 Emergency Magdalena Ashley [facility] 1.2.840 .114 [id number] Univers 12:26:56 15:35:00 Ross Cage 350.1.13.10 ity of [place] 4.2.7.2.686 [place] [id number] [facility] 0[address] 2019-09-12 2019-09-12 Orders Doctor LAMAR 1.2.840.114 [id number] Univers 00:00:00 00:00:00 Only Unassigned, ZOFIA 350.1.13.10 ity [facility] [place] [facility] 4.2.7.2.686 Devin as [phone] [address] 2019-08-28 2019-08-28 Telephone [facility] 1.2.840.114 [id number] Univers 00:00:00 00:00:00 [place] 350.1.13.10 it[place].2.[place] AT [id number] [place] kathleen HORN 198 [facility] 2019-07-29 2019-07-29 Outpatient R [facility] [id number] Univers 13:26:49 23:59:00 JOAN ity [facility] 2019-07-29 2019-07-29 [facility] 1.2.840.114 [id number] Univers 13:26:00 23:59:00 Encounter [place] SPECIALTY 350.1.13.10 it[place]2.7.2.[place] AT [phone] [place] rafaelnela HORN 809 [facility] 2019-07-29 2019-07-29 Office [facility] 1.2.981.057 [id number] Univers 13:19:53 14:10:15 Visit [place] SPECIALTY 350.1.13.10 ity of [place] 4.2.7.2.686 [place] AT [id number] [place] kathleen HORN 198 [facility] 2019-07-22 2019-07-22 Outpatient R [facility] [id number] Univers 12:37:26 23:59:00 [place] ity [facility] 2019-07-22 2019-07-22 [facility] 1.2.840.114 [id number] Univers 12:37:00 23:59:00 Encounter [place] 350.1.13.10 it[place] of [place]2.7.2.[place] AT [phone] [place] rafaelnela HORN 809 [facility] 2019-07-22 2019-07-22 Office [facility] 1.2.840.114 [id number] Univers 12:31:03 12:41:03 Visit [place] 350.1.13.10 ity of [place].2.7.2.686 [place] AT [phone] [place] kathleen HORN 198 [facility] 2019-07-21 2019-07-21 [facility] 1.2.840.114 [id number] Univers 00:00:00 00:00:00 [place] SPECIALTY 350.1.13.10 it[place] of [place]2.7.2.[place] AT [phone] [place] kathleen HORN 198 [facility] 2019-07-20 2019-07-20 Refill [facility] 1.2.840.114 [id number] Univers 00:00:00 00:00:00 [place] 350.1.13.10 it[place] of [place].2.[place] [phone] [place] kathleen HORN 198 [facility] 2019-06-20 2019-06-20 Outpatient [facility] [id number] Common 15:15:00 15:15:00 t Sure[facility] it [facility] 2019-06-14 2019-06-14 Telephone [facility] 1.2.840.114 [id number] Univers 00:00:00 00:00:00 [place] PRIMARY 350.1.13.10 it y of CARE 4.2.7.2.686 [facility] [phone] [place] kathleen [place] 2019-06-10 2019-06-10 Outpatient R [facility] [id number] Univers 10:40:07 23:59:00 [place] ity of [facility] 2019-06-10 2019-06-10 [facility] 1.2.840.114 [id number] Univers 10:40:00 23:59:00 Encounter [place] 350.1.13.10 it[place] of [place].2.7.2.[place] AT [phone] [place] rafaelnela HORN 809 [facility] 2019-05-16 2019-05-16 Patient Doctor TONY 1.2.840.114 [id number] Univers 00:00:00 00:00:00 Secure Msg Unassigned, ZOFIA 350.1.13.10 ity of [place] [facility] 4.2.7.2.686 Devin as [phone] [facility] [address] 2019-05-09 2019-05-09 Refill MARGARET CageIT 1.2.534.844 [id number] Univers 00:00:00 00:00:00 Beilin Y HEALTH 350.1.13.10 i ty of CLINICS 4.2.7.2.[place] [id number] [facility] [address] 2019-05-07 2019-05-07 [facility] 1.2.840.114 [id number] Univers 00:00:00 00:00:00 [place] 350.1.13.10 it[place] of C[place].2.[place].2.[place] AT [phone] [place] kathleen HORN 198 [facility] 2019-04-29 2019-04-30 Office [facility] 1.2.552.464 [id number] Univers 15:32:37 15:23:34 Visit Joan SPECIALTY 350.1.13.10 ity of [place] 4.2.7.2.[place] AT [id number] [place] kathleen RUSSELLVioleta 198 [facility] 2019-04-30 2019-04-30 [facility] 1.2.840.114 [id number] Univers 00:00:00 00:00:00 [place] SOUTH 350.1.13.10 it [place].2.7.2.686 [place] [phone] [facility] [address] 2019-04-29 2019-04-29 Hospital [facility] 1.2.840.114 [id number] Univers 15:47:00 23:59:00 Encounter [place] SPECIALTY 350.1.13.10 it[place] of C[place] 4[place]2.7.2.[place] AT [id number] [place] kathleen HORN 809 [facility] 2019-04-29 2019-04-29 Outpatient R IFEOMA [facility] [id number] Univers 13:38:19 15:46:00 [place] ity of [facility] 2019-04-29 2019-04-29 Hospital [facility] 1.2.840.114 [id number] Univers 13:38:00 15:46:00 Encounter [place] 350.1.13.10 ity of C[place] 4[place]2.7.2.[place] AT [id number] [place] kathleen HORN 809 [facility] 2019-04-29 2019-04-29 [facility] [id number] Univers 15:30:00 15:30:00 [place] it[place] of Surgery [facility] 2019-04-29 2019-04-29 Office [facility] 1.2.840.114 [id number] Univers 13:26:06 13:36:06 Visit [place] [facility] 350.1.13.10 [place] [phone] [facility] 198 [facility] 2019-04-29 2019-04-29 Letter [facility] 1.2.840.114 [id number] Univers 00:00:00 00:00:00 (Out) [place] [facility] [id number] [place] [phone] [facility] 198 [facility] 2019-04-22 2019-04-22 Letter OCTAVIO Cage [id number] Univers 00:00:00 00:00:00 (Out) [place] HEALTH 350.1.13.10 i [place] [phone] [place] [id number] [place] 2019-04-22 2019-04-22 Patient Doctor [facility] [id number] Univers 00:00:00 00:00:00 Secure Msg Unassigned, Y HEALTH 350.1.13.10 [place] [phone] [address] 2019-04-16 2019-04-16 Telephone Katia Cage [id number] Univers 00:00:00 00:00:00 Be[place] 350.1.13.10 it y of Hospital 4.2.7.2.686 [place] as [phone] [facility] 093 [place] 2019-04-08 2019-04-08 Outpatient R [facility] [id number] Univers 14:00:00 14:00:00 [place] [facility] 2019-04-08 2019-04-08 Office [facility] 1.2.840.114 [id number] Univers 13:30:25 13:40:25 Visit [place] [facility] 350.1.13.10 [place] [phone] [place]athleen H[place] 198 [facility] 2019-03-25 2019-03-25 Outpatient R [facility] [id number] Univers 13:45:56 23:59:00 [place] [facility] [facility] [place] [facility] 2019-03-25 2019-03-25 [facility] 1.2.840.114 [id number] Univers 13:45:00 23:59:00 Encounter [place] [facility] 350.1.13.10 [phone] [place] kathleen HORN 809 [facility] 2019-03-25 2019-03-25 Office [facility] 1.2.840.114 [id number] Univers 13:25:27 14:54:38 Visit [place] [facility] 350.1.13.10 [place] [phone] [place] dicnela WELLSY 198 [facility] 2019-03-25 2019-03-25 Telephone [facility] 1.2.840.114 [id number] Univers 00:00:00 00:00:00 [place] [facility] 350.1.13.10 [place] [phone] [place] kathleen WELLSY 198 [facility] 2019-03-14 2019-03-14 Transition Adriane Gabriel 1.2.840.114 [id number] Univers 00:00:00 00:00:00 of Care Evelia Gillespiey 350.1.13.10 i [place] [phone] [facility] [address] 2019-03-12 2019-03-13 [facility] 1.2.840.114 [id number] Univers 10:28:00 11:19:00 Encounter [facility] 350.1.13.10 [place] [facility] [phone] [facility] 036 [facility]) 2019-03-12 2019-03-12 Orders Doctor TONY 1.2.840.114 [id number] Univers 00:00:00 00:00:00 Only Unassigned, ZOFIA 350.1.13.10 ity of [place] [facility] 4.2.7.2.686 Devin as [phone] [facility] [address] [place] 2019-03-11 2019-03-11 [facility] 1.2.840.114 [id number] Univers 09:35:00 23:59:00 Encounter [place] [facility] 350.1.13.10 [place] [phone] [place] rafaelnela JUSTINA 809 [facility] 2019-03-11 2019-03-11 Office [facility] 1.2.840.114 [id number] Univers 08:37:04 12:59:31 Visit [place] [facility] 350.1.13.10 [place] [phone] [place] k[place] HORN 198 [facility] 2019-03-08 2019-03-08 Nurse TONY Fiore 1.2.840.114 [id number] Univers 00:00:00 00:00:00 Triage Aishwarya ZOFIA 350.1.13.10 it y of HOSPITAL 4.2.7.2.686 [place] [phone] [facility] [address] [place] 2019-03-07 2019-03-07 Transition Adriane Gabriel 1.2.840.114 [id number] Univers 00:00:00 00:00:00 of Care Evelia Reddy 350.1.13.10 [place] [phone] [facility] [address] 2019-03-01 2019-03-06 Inpatient U ALLEN VIDAL [facility] ALFREDA 1 [id number] Univers 16:30:00 15:58:00 ALLEN VIDAL ity [facility] 2019-03-01 2019-03-06 Hospital Allen Vidal S Katia 1.2.840. 114 [id number] Univers 16:30:00 15:58:00 Encounter Ben Hernandez 350.1.13.10 ity of Hospital 4.2.7.2.686 [place] [phone] [facility] [address] [place] 2019-03-01 2019-03-01 [facility] 1.2.840.114 [id number] Univers 14:13:00 16:29:00 Encounter Ben H Y HEALTH 350.1.13.10 [place] of [place] [phone] [facility] [address] [place] 2019-03-01 2019-03-01 Telephone Niles [facility] 1.2.840.114 [id number] Univers 00:00:00 00:00:00 Beilin Y HEALTH 350.1.13.10 i ty [place] CL[place] [phone] [facility] [address] [place] 2019-02-27 2019-02-27 [facility] [id number] Univers 12:20:33 23:59:00 BEN cho [facility] 2019-02-27 2019-02-27 [facility] David [facility] 1.2.840.114 [id number] Univers 12:20:00 23:59:00 Encounter Ben H Y HEALTH 350.1.13.10 [place] [phone] [facility] [address] [place] 2019-02-27 2019-02-27 Electrolysis Needle Operator [facility] 1.2.840.114 [id number] Univers 11:56:05 12:11:05 Visit Ben Hernandez H Y HEALTH 350.1.13.10 it[place] of CL[place] [phone] [facility] [address] 2019-02-27 2019-02-27 Office Alfredo Cage [facility] 1.2.840.114 [id number] Univers 09:01:02 11:54:28 Visit Ben Hernandez HEALTH 350.1.13.10 it[place] of CL[place] [phone] [place] 6520[address] [place] 2019-02-26 2019-02-26 Telephone Niles [facility] 1.2.840.114 [id number] Univers 00:00:00 00:00:00 Beilin Y HEALTH 350.1.13.10 i ty of CL[place] [phone] [place] 6520[address] [place] 2019-02-26 2019-02-26 Telephone MARGARET Cage 1.2.840.114 [id number] Univers 00:00:00 00:00:00 Beilin HEALTH 350.1.13.10 i ty of CL[place] [phone] [place] 6520[address] [place] 2018-10-17 2018-10-17 Electrolysis Needle Operator 1, [facility] 1.2.840.114 [id number] Univers 10:30:41 10:45:41 Visit Iveth Jiménez 350.1.13 .10 ity of [place] [phone] [facility] [address] 2018-10-03 2018-10-03 Office Alfredo Cage [facility] 1.2.840.114 [id number] Univers 08:14:36 10:00:51 Visit Ben Hernandez HEALTH 350.1.13.10 ity of CL[place]ICS [place] [phone] [place] 6520[address] [place] 2018-10-03 2018-10-03 Electrolysis Needle Operator [facility] 1.2.840.114 [id number] Univers 07:59:47 08:36:26 Visit Mak Cage IMANI 350.1.13.10 ity of CL[place] [phone] [facility] [address] 2018-10-03 2018-10-03 Telephone OCTAVIO Cage 1.2.840.114 [id number] Univers 00:00:00 00:00:00 Beilin Y HEALTH 350.1.13.10 i ty [place] [phone] [facility] [address] 2018-09-26 2018-09-26 Electrolysis Needle Operator 1, [facility] 1.2.840.114 [id number] Univers 11:57:36 12:12:36 Visit Ben Hernandezton 350.1.13.10 ity of [place] [phone] [facility] [address] 2018-09-26 2018-09-26 Telephone OCTAVIO Cage 1.2.840.114 [id number] Univers 00:00:00 00:00:00 Beilin Y HEALTH 350.1.13.10 i ty of CL[place] [phone] [facility] [address] 2018-09-26 2018-09-26 Orders Doctor TONY 1.2.840.114 [id number] Univers 00:00:00 00:00:00 Only Unassigned, ZOFIA 350.1.13.10 ity of [place] [facility] 4.2.7.2.686 [place] [phone] [facility] [address] 2018-09-24 2018-09-24 Telephone OCTAVIO Cage 1.2.840.114 [id number] Univers 00:00:00 00:00:00 Beilin Y HEALTH 350.1.13.10 i ty of [place] [phone] [facility] [address] 2018-09-12 2018-09-12 Office Alfredo Cage [facility] 1.2.840.114 [id number] Univers 09:32:52 12:37:52 Visit Ben Hernandez HEALTH 350.1.13.10 ity of CL[place] [phone] [place] [address] [place] 2018-09-12 2018-09-12 Electrolysis Needle Operator [facility] 1.2.840.114 [id number] [facility] 11:49:06 12:04:[address] [facility] 350.1.13.10 [facility] 4.2.7.2.686 [place] [phone] [address] Results Test Description Test Time Test Comments Results Result Comments Source Vancomycin Trough Level - Draw within 30 minutes prior to 3rd 2022-08-18 11:23:10 dose 08/18/22@0115 Test Item Value Reference Range Interpretation Comme nts VANCO TROUGH (test code = 4803519760) 27.0 ug/mL 10.0-20.0 H LUIS ANGEL (test code = LUIS ANGEL) Toxic Range: ?>20 ug/mL 15-20 ug/mL is recommended for severe infection or when Vancomycin HILLARY is greater than or equal to 2. Lab Interpretation (test code = Abnormal 26777-3) [facility] METABOLIC PANEL (NA, K, CL, CO2, GLUCOSE, BUN, CREATININE, CA)2022-08-18 11:18:06 Test Item Value Reference Range Interpretation Comments NA (test code = 136 mmol/L 135-145 6267166751) K (test code = 4.9 mmol/L 3.5-5.0 4878339804) CL (test code = 100 mmol/L 98-108 6907135465) CO2 TOTAL (test code = 27 mmol/L 23-31 1206207245) AGAP (test code = 9 2-16 3227305106) BUN (test code = 15 mg/dL 7-23 3701308886) GLUCOSE (test code = 183 mg/dL 70-110 H 6657048254) CREATININE (test code = 1.16 mg/dL 0.60-1.25 1207526862) CALCIUM (test code = 8.4 mg/dL 8.6-10.6 L 2836250147) eGFR (test code = 62.6 mL/min/1.73m2 6649735327) LUIS ANGEL (test code = LUIS ANGEL) Association of Glomerular Filtration Rate (GFR) and Staging of Kidney Disease* + --+ --+ ------+| GFR (mL/min/1.73 m2) ?| With Kidney Damage ?| ?Without Kidney Damage+ --------+ --------+ +| ?>90 ?| ?Stage one ?| ? Normal ?+ ---+ ---+ -------+| ?60-89 ?| ?Stage two ?| ? Decreased GFR ? + --+ --+ ------+| ?30-59 ?| ?Stage three ?| ? Stage three ? + --+ --+ ------+| ?15-29 ?| ?Stage four ? | ? Stage four ?+ ---+ ---+ -------+| ?<15 (or dialysis) ? ?| ?Stage five ? | ? Stage five ?+ ---+ ---+ -------+ *Each stage assumes the associated GFR level has been in effect for at least three months. ?Stages 1 to 5, with or without kidney disease, indicate chronic kidney disease. Notes: Determination of stages one and two (with eGFR >59mL/min/1.73 m2) requires estimation of kidney damage for at least three months as defined by structural or functional abnormalities of the kidney, manifested by either:Pathological abnormalities or Markers of kidney damage (including abnormalities in the composition of the blood or urine or abnormalities in imaging tests). Lab Interpretation Abnormal (test code = 62924-7) [facility] WITH [id number] 08:45:27 Test Item Value Reference Range Interpretation Comments WBC (test code = 22.33 See_Comment H [Automated 1390-2) message] The system which generated this result transmit ender reference range : 4.20 - 10.70 10*3/?L. The reference range was not used to interpret this result as normal/abnormal . RBC (test code = 3.63 See_Comment L [Automated 131-8) message] The system which generated this result transmit ender reference range : 4.26 - 5.52 10*6/?L. The reference range was not used to interpret this result as normal/abnormal . HGB (test code = 10.2 g/dL 12.2-16.4 L 718-7) HCT (test code = 31.3 % 38.4-49.3 L 4544-3) MCV (test code = 86.2 fL 81.7-95.6 787-2) MCH (test code = 28.1 pg 26.1-32.7 785-6) MCHC (test code = 32.6 g/dL 31.2-35.0 786-4) RDW-SD (test code = 56.9 fL 38.5-51.6 H 26499-4) RDW-CV (test code = 18.0 % 12.1-15.4 H 788-0) PLT (test code = 573 See_Comment H [Automated 777-3) message] The system which generated this result transmit ender reference range : 150 - 328 10*3/ ?L. The reference range was not u sed to interpret th is result as normal/abnormal . MPV (test code = 11.5 fL 9.8-13.0 99280-8) NRBC/100 WBC (test 0.0 See_Comment [Automat ed code = 3808409445) message] The system which generated this result transmit ender reference range : 0.0 - 10.0 /100 WBCs. The reference range was not used to interpret this result as normal/abnormal . NRBC x10^3 (test code See_Comment [Auto mated = 3837397584) message] The system which generated this result transmit ender reference range : 10*3/?L. The reference range was not used to interpret this result as normal/abnormal . GRAN MAT (NEUT) % 86.7 % (test code = 770-8) IMM GRAN % (test code 0.40 % = 5400926914) LYMPH % (test code = 7.7 % 736-9) MONO % (test code = 4.8 % 5905-5) EOS % (test code = 0.1 % 713-8) BASO % (test code = 0.3 % 706-2) GRAN MAT x10^3(ANC) 19.35 10*3/uL 1.99-6.95 H (test code = 9641745069) IMM GRAN x10^3 (test 0.09 10*3/uL 0.00-0.06 H code = 3907953618) LYMPH x10^3 (test code 1.73 10*3/uL 1.09-3.23 = 731-0) MONO x10^3 (test code 1.07 10*3/uL 0.36-1.02 H = 742-7) EOS x10^3 (test code = 0.06-0.53 L 711-2) BASO x10^3 (test code 0.07 10*3/uL 0.01-0.09 = 704-7) HJ BODIES (test code = Present A 7793-3) SIDEROTIC GRAN (test Suggestive of A code = 7795-8) GIANT PLATELETS (test Present See_Comment A [Auto mated code = 5908-9) message] The system which generated this result transmit ender reference range : (none). The reference range was not used to interpret this result as normal/abnormal . Lab Interpretation Abnormal (test code = 49289-2) [facility] with [id number] 12:22:28 Test Item Value Reference Range Interpretation Comments WBC (test code = 16.73 See_Comment H [Automated 6690-2) message] The system which generated this result transmit ender reference range : 4.20 - 10.70 10*3/?L. The reference range was not used to interpret this result as normal/abnormal . RBC (test code = 3.51 See_Comment L [Automated 789-8) message] The system which generated this result transmit ender reference range : 4.26 - 5.52 10*6/?L. The reference range was not used to interpret this result as normal/abnormal . HGB (test code = 9.7 g/dL 12.2-16.4 L 718-7) HCT (test code = 30.9 % 38.4-49.3 L 4544-3) MCV (test code = 88.0 fL 81.7-95.6 787-2) MCH (test code = 27.6 pg 26.1-32.7 785-6) MCHC (test code = 31.4 g/dL 31.2-35.0 786-4) RDW-SD (test code = 59.5 fL 38.5-51.6 H 55919-3) RDW-CV (test code = 18.6 % 12.1-15.4 H 788-0) PLT (test code = 554 See_Comment H [Automated 777-3) message] The system which generated this result transmit ender reference range : 150 - 328 10*3/ ?L. The reference range was not u sed to interpret th is result as normal/abnormal . MPV (test code = 11.7 fL 9.8-13.0 78704-0) NRBC/100 WBC (test 0.0 See_Comment [Automat ed code = 1521509967) message] The system which generated this result transmit ender reference range : 0.0 - 10.0 /100 WBCs. The reference range was not used to interpret this result as normal/abnormal . NRBC x10^3 (test code See_Comment [Auto mated = 6633698378) message] The system which generated this result transmit ender reference range : 10*3/?L. The reference range was not used to interpret this result as normal/abnormal . GRAN MAT (NEUT) % 64.0 % (test code = 770-8) IMM GRAN % (test code 1.30 % = 7055755943) LYMPH % (test code = 22.1 % 736-9) MONO % (test code = 9.6 % 5905-5) EOS % (test code = 2.6 % 713-8) BASO % (test code = 0.4 % 706-2) GRAN MAT x10^3(ANC) 10.71 10*3/uL 1.99-6.95 H (test code = 4425481182) IMM GRAN x10^3 (test 0.21 10*3/uL 0.00-0.06 H code = 5062615070) LYMPH x10^3 (test code 3.69 10*3/uL 1.09-3.23 H = 731-0) MONO x10^3 (test code 1.61 10*3/uL 0.36-1.02 H = 742-7) EOS x10^3 (test code = 0.44 10*3/uL 0.06-0.53 711-2) BASO x10^3 (test code 0.07 10*3/uL 0.01-0.09 = 704-7) HJ BODIES (test code = Present A 7793-3) POLYCHROMASIA (test 2+ See_Comment [Automa ender code = 71914-5) message] The system which generated this result transmit ender reference range : 2+. The referen ce range was not u sed to interpret th is result as normal/abnormal . SIDEROTIC GRAN (test Suggestive of A code = 7795-8) TARGET CELLS (test 2+ See_Comment A [Automat ed code = 40100-1) message] The system which generated this result transmit ender reference range : (none). The reference range was not used to interpret this result as normal/abnormal . GIANT PLATELETS (test Present See_Comment A [Auto mated code = 5908-9) message] The system which generated this result transmit ender reference range : (none). The reference range was not used to interpret this result as normal/abnormal . Lab Interpretation Abnormal (test code = 78078-3) [facility] Metabolic Panel (NA, K, CL, CO2, GLUCOSE, BUN, CREATININE, CA)2022-08-17 11:04:52 Test Item Value Reference Range Interpretation Comments NA (test code = 141 mmol/L 135-145 6046580144) K (test code = 3.9 mmol/L 3.5-5.0 9087416976) CL (test code = 104 mmol/L 98-108 1970259306) CO2 TOTAL (test code = 30 mmol/L 23-31 6739470460) AGAP (test code = 7 2-16 0614202613) BUN (test code = 16 mg/dL 7-23 5208580902) GLUCOSE (test code = 176 mg/dL 70-110 H 6631664860) CREATININE (test code = 1.12 mg/dL 0.60-1.25 4080818113) CALCIUM (test code = 8.6 mg/dL 8.6-10.6 7113627335) eGFR (test code = 65.2 mL/min/1.73m2 1574956617) LUIS ANGEL (test code = LUIS ANGEL) Association of Glomerular Filtration Rate (GFR) and Staging of Kidney Disease* + --+ --+ ------+| GFR (mL/min/1.73 m2) ?| With Kidney Damage ?| ?Without Kidney Damage+ --------+ --------+ +| ?>90 ?| ?Stage one ?| ? Normal ?+ ---+ ---+ -------+| ?60-89 ?| ?Stage two ?| ? Decreased GFR ? + --+ --+ ------+| ?30-59 ?| ?Stage three ?| ? Stage three ? + --+ --+ ------+| ?15-29 ?| ?Stage four ? | ? Stage four ?+ ---+ ---+ -------+| ?<15 (or dialysis) ? ?| ?Stage five ? | ? Stage five ?+ ---+ ---+ -------+ *Each stage assumes the associated GFR level has been in effect for at least three months. ?Stages 1 to 5, with or without kidney disease, indicate chronic kidney disease. Notes: Determination of stages one and two (with eGFR >59mL/min/1.73 m2) requires estimation of kidney damage for at least three months as defined by structural or functional abnormalities of the kidney, manifested by either:Pathological abnormalities or Markers of kidney damage (including abnormalities in the composition of the blood or urine or abnormalities in imaging tests). Lab Interpretation Abnormal (test code = 49097-7) [facility] WITH [id number] 04:14:26 Test Item Value Reference Range Interpretation Comments WBC (test code = 23.50 See_Comment H [Automated 6690-2) message] The system which generated this result transmit ender reference range : 4.20 - 10.70 10*3/?L. The reference range was not used to interpret this result as normal/abnormal . RBC (test code = 3.58 See_Comment L [Automated 789-8) message] The system which generated this result transmit ender reference range : 4.26 - 5.52 10*6/?L. The reference range was not used to interpret this result as normal/abnormal . HGB (test code = 10.1 g/dL 12.2-16.4 L 718-7) HCT (test code = 31.9 % 38.4-49.3 L 4544-3) MCV (test code = 89.1 fL 81.7-95.6 787-2) MCH (test code = 28.2 pg 26.1-32.7 785-6) MCHC (test code = 31.7 g/dL 31.2-35.0 786-4) RDW-SD (test code = 61.1 fL 38.5-51.6 H 14613-7) RDW-CV (test code = 18.8 % 12.1-15.4 H 788-0) PLT (test code = 636 See_Comment H [Automated 777-3) message] The system which generated this result transmit ender reference range : 150 - 328 10*3/ ?L. The reference range was not u sed to interpret th is result as normal/abnormal . MPV (test code = 11.4 fL 9.8-13.0 81884-5) NRBC/100 WBC (test 0.0 See_Comment [Automat ed code = 5466796481) message] The system which generated this result transmit ender reference range : 0.0 - 10.0 /100 WBCs. The reference range was not used to interpret this result as normal/abnormal . NRBC x10^3 (test code See_Comment [Auto mated = 4301520772) message] The system which generated this result transmit ender reference range : 10*3/?L. The reference range was not used to interpret this result as normal/abnormal . GRAN MAT (NEUT) % 72.5 % (test code = 770-8) IMM GRAN % (test code 0.70 % = 8892659746) LYMPH % (test code = 16.5 % 736-9) MONO % (test code = 9.4 % 5905-5) EOS % (test code = 0.5 % 713-8) BASO % (test code = 0.4 % 706-2) GRAN MAT x10^3(ANC) 17.05 10*3/uL 1.99-6.95 H (test code = 2266328887) IMM GRAN x10^3 (test 0.16 10*3/uL 0.00-0.06 H code = 7030347316) LYMPH x10^3 (test code 3.87 10*3/uL 1.09-3.23 H = 731-0) MONO x10^3 (test code 2.21 10*3/uL 0.36-1.02 H = 742-7) EOS x10^3 (test code = 0.11 10*3/uL 0.06-0.53 711-2) BASO x10^3 (test code 0.10 10*3/uL 0.01-0.09 H = 704-7) HJ BODIES (test code = Present A 7793-3) POLYCHROMASIA (test 2+ See_Comment [Automa ender code = 70507-5) message] The system which generated this result transmit ender reference range : 2+. The referen ce range was not u sed to interpret th is result as normal/abnormal . SIDEROTIC GRAN (test Suggestive of A code = 7795-8) GIANT PLATELETS (test Present See_Comment A [Auto mated code = 5908-9) message] The system which generated this result transmit ender reference range : (none). The reference range was not used to interpret this result as normal/abnormal . Lab Interpretation Abnormal (test code = 93799-6) [facility]. METABOLIC PANEL (65497)2022-08-16 04:06:14 Test Item Value Reference Range Interpretation Comments NA (test code = 134 mmol/L 135-145 L 3429709626) K (test code = 4.3 mmol/L 3.5-5.0 0754616398) CL (test code = 99 mmol/L 98-108 4652199111) CO2 TOTAL (test code = 26 mmol/L 23-31 2706278801) AGAP (test code = 9 2-16 1468605149) BUN (test code = 22 mg/dL 7-23 8769259470) GLUCOSE (test code = 82 mg/dL 70-110 4872889150) CREATININE (test code = 1.54 mg/dL 0.60-1.25 H 1094886359) TOTAL BILI (test code = 0.6 mg/dL 0.1-1.1 9064296281) CALCIUM (test code = 8.2 mg/dL 8.6-10.6 L 2910482787) T PROTEIN (test code = 7.4 g/dL 6.3-8.2 3429393576) ALBUMIN (test code = 2.8 g/dL 3.5-5.0 L 9126733834) ALK PHOS (test code = 212 U/L 34-122 H 9262334092) ALTv (test code = 8 U/L 5-50 1742-6) AST(SGOT) (test code = 26 U/L 13-40 7105080754) eGFR (test code = 45.1 mL/min/1.73m2 1633920743) LUIS ANGEL (test code = LUIS ANGEL) Association of Glomerular Filtration Rate (GFR) and Staging of Kidney Disease* + --+ --+ ------+| GFR (mL/min/1.73 m2) ?| With Kidney Damage ?| ?Without Kidney Damage+ --------+ --------+ +| ?>90 ?| ?Stage one ?| ? Normal ?+ ---+ ---+ -------+| ?60-89 ?| ?Stage two ?| ? Decreased GFR ? + --+ --+ ------+| ?30-59 ?| ?Stage three ?| ? Stage three ? + --+ --+ ------+| ?15-29 ?| ?Stage four ? | ? Stage four ?+ ---+ ---+ -------+| ?<15 (or dialysis) ? ?| ?Stage five ? | ? Stage five ?+ ---+ ---+ -------+ *Each stage assumes the associated GFR level has been in effect for at least three months. ?Stages 1 to 5, with or without kidney disease, indicate chronic kidney disease. Notes: Determination of stages one and two (with eGFR >59mL/min/1.73 m2) requires estimation of kidney damage for at least three months as defined by structural or functional abnormalities of the kidney, manifested by either:Pathological abnormalities or Markers of kidney damage (including abnormalities in the composition of the blood or urine or abnormalities in imaging tests). Lab Interpretation Abnormal (test code = 96868-3) [facility] GLUCOSE (AUTOMATED)2022-08-06 12:52:55 Test Item Value Reference Range Interpretation Comments POCT GLU (test code = 6160102032) 175 mg/dL 70-110 H Lab Interpretation (test code = Abnormal 66326-7) [facility] GLUCOSE (AUTOMATED)2022-08-06 02:56:57 Test Item Value Reference Range Interpretation Comments POCT GLU (test code = 5230964099) 139 mg/dL 70-110 H Lab Interpretation (test code = Abnormal 74049-1) [facility] GLUCOSE (AUTOMATED)2022-08-05 21:15:40 Test Item Value Reference Range Interpretation Comments POCT GLU (test code = 4360223791) 152 mg/dL 70-110 H Lab Interpretation (test code = Abnormal 48202-5) [facility] GLUCOSE (AUTOMATED)2022-08-05 16:30:17 Test Item Value Reference Range Interpretation Comments POCT GLU (test code = 1649412935) 233 mg/dL 70-110 H Lab Interpretation (test code = Abnormal 90518-7[facility] 12:18:14 Test Item Value Reference Range Interpretation Comments POCT GLU (test code = 4966832881) 182 mg/dL 70-110 H Lab Interpretation (test code = Abnormal 78833-7) [facility] WITH [id number] 10:33:27 Test Item Value Reference Range Interpretation Comments WBC (test code = 17.90 See_Comment H [Automated 6690-2) message] The system which generated this result transmit ender reference range : 4.20 - 10.70 10*3/?L. The reference range was not used to interpret this result as normal/abnormal . RBC (test code = 4.02 See_Comment L [Automated 789-8) message] The system which generated this result transmit ender reference range : 4.26 - 5.52 10*6/?L. The reference range was not used to interpret this result as normal/abnormal . HGB (test code = 11.0 g/dL 12.2-16.4 L 718-7) HCT (test code = 34.4 % 38.4-49.3 L 4544-3) MCV (test code = 85.6 fL 81.7-95.6 787-2) MCH (test code = 27.4 pg 26.1-32.7 785-6) [facility] (test code = 32.0 g/dL 31.2-35.0 786-4) RDW-SD (test code = 61.2 fL 38.5-51.6 H 93078-5) RDW-CV (test code = 19.6 % 12.1-15.4 H 788-0) PLT (test code = 694 See_Comment H [Automated 777-3) message] The system which generated this result transmit ender reference range : 150 - 328 10*3/ ?L. The reference range was not u sed to interpret th is result as normal/abnormal . MPV (test code = 10.7 fL 9.8-13.0 66653-8) NRBC/100 WBC (test 0.0 See_Comment [Automat ed code = 1161546563) message] The system which generated this result transmit ender reference range : 0.0 - 10.0 /100 WBCs. The reference range was not used to interpret this result as normal/abnormal . NRBC x10^3 (test code See_Comment [Auto mated = 3071262078) message] The system which generated this result transmit ender reference range : 10*3/?L. The reference range was not used to interpret this result as normal/abnormal . GRAN MAT (NEUT) % 72.1 % (test code = 770-8) IMM GRAN % (test code 0.70 % = 8215180336) LYMPH % (test code = 15.6 % 736-9) MONO % (test code = 8.4 % 5905-5) EOS % (test code = 2.8 % 713-8) BASO % (test code = 0.4 % 706-2) GRAN MAT x10^3(ANC) 12.89 10*3/uL 1.99-6.95 H (test code = 2003541209) IMM GRAN x10^3 (test 0.13 10*3/uL 0.00-0.06 H code = 5444707346) LYMPH x10^3 (test code 2.79 10*3/uL 1.09-3.23 = 731-0) MONO x10^3 (test code 1.51 10*3/uL 0.36-1.02 H = 742-7) EOS x10^3 (test code = 0.51 10*3/uL 0.06-0.53 711-2) BASO x10^3 (test code 0.07 10*3/uL 0.01-0.09 = 704-7) HJ BODIES (test code = Present A 7793-3) POLYCHROMASIA (test 2+ See_Comment [Automa ender code = 70133-0) message] The system which generated this result transmit ender reference range : 2+. The referen ce range was not u sed to interpret th is result as normal/abnormal . SIDEROTIC GRAN (test Suggestive of A code = 7795-8) TARGET CELLS (test 2+ See_Comment A [Automat ed code = 98413-9) message] The system which generated this result transmit ender reference range : (none). The reference range was not used to interpret this result as normal/abnormal . TOXIC CHANGES (test Present A code = 803-7) GIANT PLATELETS (test Present See_Comment A [Auto mated code = 5908-9) message] The system which generated this result transmit ender reference range : (none). The reference range was not used to interpret this result as normal/abnormal . Lab Interpretation Abnormal (test code = 85632-4) [facility] GLUCOSE (AUTOMATED)2022-08-05 02:28:09 Test Item Value Reference Range Interpretation Comments POCT GLU (test code = 7512010949) 159 mg/dL 70-110 H Lab Interpretation (test code = Abnormal 87982-4) [facility] GLUCOSE (AUTOMATED)2022-08-04 21:26:33 Test Item Value Reference Range Interpretation Comments POCT GLU (test code = 4394312495) 158 mg/dL 70-110 H Lab Interpretation (test code = Abnormal 28382-2) [facility] GLUCOSE (AUTOMATED)2022-08-04 16:36:54 Test Item Value Reference Range Interpretation Comments POCT GLU (test code = 6581834490) 204 mg/dL 70-110 H Lab Interpretation (test code = Abnormal 56163-0) [facility] GLUCOSE (AUTOMATED)2022-08-04 13:00:16 Test Item Value Reference Range Interpretation Comments POCT GLU (test code = 8572982951) 170 mg/dL 70-110 H Lab Interpretation (test code = Abnormal 27447-9) [facility] GLUCOSE (AUTOMATED)2022-08-04 02:52:27 Test Item Value Reference Range Interpretation Comments POCT GLU (test code = 4948261096) 188 mg/dL 70-110 H Lab Interpretation (test code = Abnormal 51196-3) [facility] GLUCOSE (AUTOMATED)2022-08-03 21:56:24 Test Item Value Reference Range Interpretation Comments POCT GLU (test code = 6755146806) 130 mg/dL 70-110 H Lab Interpretation (test code = Abnormal 16761-1) [facility] GLUCOSE (AUTOMATED)2022-08-03 16:49:53 Test Item Value Reference Range Interpretation Comments POCT GLU (test code = 7584090543) 172 mg/dL 70-110 H Lab Interpretation (test code = Abnormal 90132-6) [facility] GLUCOSE (AUTOMATED)2022-08-03 12:49:08 Test Item Value Reference Range Interpretation Comments POCT GLU (test code = 2701191478) 124 mg/dL 70-110 H Lab Interpretation (test code = Abnormal 80781-5) [facility] GLUCOSE (AUTOMATED)2022-08-03 01:34:35 Test Item Value Reference Range Interpretation Comments POCT GLU (test code = 4781346057) 181 mg/dL 70-110 H Lab Interpretation (test code = Abnormal 17244-9) [facility] GLUCOSE (AUTOMATED)2022-08-02 21:23:12 Test Item Value Reference Range Interpretation Comments POCT GLU (test code = 5126520666) 154 mg/dL 70-110 H Lab Interpretation (test code = Abnormal 92328-9) [facility] GLUCOSE (AUTOMATED)2022-08-02 16:40:59 Test Item Value Reference Range Interpretation Comments POCT GLU (test code = 6466625023) 214 mg/dL 70-110 H Lab Interpretation (test code = Abnormal 15671-7) [id number] 14:34:51 Test Item Value Reference Range Interpretation Comments Blood Culture Staphylococcus aureus Organ ism identified Workup (test by DNA probeFor code = 600-7) susceptibility results, refer to culture # - [id number] Gram stain Isolated from aerobic This i s an appended (test code = bottle Gram positive report. These 664-3) cocci results have be en appended to a previously preliminary beny ified report. [facility] GLUCOSE (AUTOMATED)2022-08-02 13:03:54 Test Item Value Reference Range Interpretation Comments POCT GLU (test code = 0629738080) 112 mg/dL 70-110 H Lab Interpretation (test code = Abnormal 56231-6) [facility] GLUCOSE (AUTOMATED)2022-08-02 02:20:40 Test Item Value Reference Range Interpretation Comments POCT GLU (test code = 9459396488) 185 mg/dL 70-110 H Lab Interpretation (test code = Abnormal 10771-0) [facility] GLUCOSE (AUTOMATED)2022-08-01 21:37:19 Test Item Value Reference Range Interpretation Comments POCT GLU (test code = 1089596335) 224 mg/dL 70-110 H Lab Interpretation (test code = Abnormal 71555-9) [facility] GLUCOSE (AUTOMATED)2022-08-01 16:57:28 Test Item Value Reference Range Interpretation Comments POCT GLU (test code = 6832695455) 196 mg/dL 70-110 H Lab Interpretation (test code = Abnormal 70405-9) [facility] CULTURE [id number] 14:39:21 Test Item Value Reference Range Interpretation Comments Blood Culture-Aerobic Culture positive. No growth AA P revious (test code = 45883-2) See Blood Culture p reliminary Workup for verified result additional was Culture In information. Progress on 07/31/2022 at 09 37 CDT Blood Culture positive. No growth AA Previous Culture-Anaerobic See Blood Culture preli minary (test code = 13788-4) Workup for verifi ed result additional was Culture In information. Progress on 07/31/2022 at 00 01 CDT Lab Interpretation Abnormal (test code = 06498-2) [facility] CULTURE [id number] 14:39:16 Test Item Value Reference Range Interpretation Comments Blood Culture-Aerobic Culture positive. No growth AA P revious (test code = 62825-4) See Blood Culture p reliminary Workup for verified result additional was Culture In information. Progress on 07/31/2022 at 09 37 CDT Blood Culture positive. No growth AA Previous Culture-Anaerobic See Blood Culture preli minary (test code = 79944-7) Workup for verifi ed result additional was Culture In information. Progress on 07/31/2022 at 00 01 CDT Lab Interpretation Abnormal (test code = 46881-0) [facility] GLUCOSE (AUTOMATED)2022-08-01 13:13:47 Test Item Value Reference Range Interpretation Comments POCT GLU (test code = 5056048920) 186 mg/dL 70-110 H Lab Interpretation (test code = Abnormal 27876-6) [facility] GLUCOSE (AUTOMATED)2022-08-01 01:21:05 Test Item Value Reference Range Interpretation Comments POCT GLU (test code = 6779797136) 227 mg/dL 70-110 H Lab Interpretation (test code = Abnormal 25306-9) [facility] DNA [id number] 00:36:28 Test Item Value Reference Range Interpretation Comments Staphylococcus aureus Positive Negative, See A (test code = 32515-4) Comment/Narrativ e mecA (test code = Negative Negative, See 05701-2) Comment/Narrativ e LUIS ANGEL (test code = LUIS ANGEL) MSSA detected by DNA probe. ?See blood culture result for additional susceptibilityInformati on. Preferred therapies for MSSA ?bacteremia are nafcillin or cefazolin.Infectious Diseases consultation recommended. Please contact the Ant[facility] Stewardship Program with questions.[facility] Pager: ?[phone] Testing included eleven identification and three resistance marker targets. See blood culture result for additional information. Testing included eleven identification and three resistancemarker targets. Lab Interpretation Abnormal (test code = 82173-3) [facility] GLUCOSE (AUTOMATED)2022-07-31 21:48:50 Test Item Value Reference Range Interpretation Comments POCT GLU (test code = 5193298324) 173 mg/dL 70-110 H Lab Interpretation (test code = Abnormal 81852-2) [facility] GLUCOSE (AUTOMATED)2022-07-31 17:08:29 Test Item Value Reference Range Interpretation Comments POCT GLU (test code = 9323864193) 281 mg/dL 70-110 H Lab Interpretation (test code = Abnormal 67783-7) [facility] GLUCOSE (AUTOMATED)2022-07-31 12:52:57 Test Item Value Reference Range Interpretation Comments POCT GLU (test code = 4337387171) 205 mg/dL 70-110 H Lab Interpretation (test code = Abnormal 68422-9) [facility] WITH [id number] 01:59:45 Test Item Value Reference Range Interpretation Comments WBC (test code = 30.40 See_Comment H [Automated 6690-2) message] The system which generated this result transmit ender reference range : 4.20 - 10.70 10*3/?L. The reference range was not used to interpret this result as normal/abnormal . RBC (test code = 3.99 See_Comment L [Automated 789-8) message] The system which generated this result transmit ender reference range : 4.26 - 5.52 10*6/?L. The reference range was not used to interpret this result as normal/abnormal . HGB (test code = 10.8 g/dL 12.2-16.4 L 718-7) HCT (test code = 33.7 % 38.4-49.3 L 4544-3) MCV (test code = 84.5 fL 81.7-95.6 787-2) MCH (test code = 27.1 pg 26.1-32.7 785-6) MCHC (test code = 32.0 g/dL 31.2-35.0 786-4) RDW-SD (test code = 61.1 fL 38.5-51.6 H 80742-9) RDW-CV (test code = 19.9 % 12.1-15.4 H 788-0) PLT (test code = 475 See_Comment H [Automated 777-3) message] The system which generated this result transmit ender reference range : 150 - 328 10*3/ ?L. The reference range was not u sed to interpret th is result as normal/abnormal . MPV (test code = 11.4 fL 9.8-13.0 85770-3) NRBC/100 WBC (test 0.0 See_Comment [Automat ed code = 2971431094) message] The system which generated this result transmit ender reference range : 0.0 - 10.0 /100 WBCs. The reference range was not used to interpret this result as normal/abnormal . NRBC x10^3 (test code See_Comment [Auto mated = 5990982660) message] The system which generated this result transmit ender reference range : 10*3/?L. The reference range was not used to interpret this result as normal/abnormal . GRAN MAT (NEUT) % 77.7 % (test code = 770-8) IMM GRAN % (test code 0.60 % = 8175151837) LYMPH % (test code = 10.2 % 736-9) MONO % (test code = 11.1 % 5905-5) EOS % (test code = 0.1 % 713-8) BASO % (test code = 0.3 % 706-2) GRAN MAT x10^3(ANC) 23.65 10*3/uL 1.99-6.95 H (test code = 9677464487) IMM GRAN x10^3 (test 0.18 10*3/uL 0.00-0.06 H code = 4122476325) LYMPH x10^3 (test code 3.10 10*3/uL 1.09-3.23 = 731-0) MONO x10^3 (test code 3.37 10*3/uL 0.36-1.02 H = 742-7) EOS x10^3 (test code = 0.06-0.53 L 711-2) BASO x10^3 (test code 0.08 10*3/uL 0.01-0.09 = 704-7) TARGET CELLS (test 2+ See_Comment A [Automat ed code = 60955-5) message] The system which generated this result transmit ender reference range : (none). The reference range was not used to interpret this result as normal/abnormal . Lab Interpretation Abnormal (test code = 64636-4) [facility]. METABOLIC PANEL (31132)2022-07-31 01:40:33 Test Item Value Reference Range Interpretation Comments NA (test code = 134 mmol/L 135-145 L 1630738131) K (test code = 4.4 mmol/L 3.5-5.0 5345431647) CL (test code = 97 mmol/L 98-108 L 0469427578) CO2 TOTAL (test code = 25 mmol/L 23-31 4710761089) AGAP (test code = 12 2-16 2293493124) BUN (test code = 21 mg/dL 7-23 9036645212) GLUCOSE (test code = 282 mg/dL 70-110 H 8557741276) CREATININE (test code = 1.42 mg/dL 0.60-1.25 H 7543653594) TOTAL BILI (test code = 1.0 mg/dL 0.1-1.3 0777578100) CALCIUM (test code = 9.7 mg/dL 8.6-10.6 6713960081) T PROTEIN (test code = 8.0 g/dL 6.3-8.2 6212300277) ALBUMIN (test code = 3.4 g/dL 3.5-5.0 L 2967431439) ALK PHOS (test code = 238 U/L 34-122 H 1369313041) ALTv (test code = 17 U/L 5-50 1742-6) AST(SGOT) (test code = 30 U/L 13-40 8298252266) eGFR (test code = 49.6 mL/min/1.73m2 8782951783) LUIS ANGEL (test code = LUIS ANGEL) Association of Glomerular Filtration Rate (GFR) and Staging of Kidney Disease* + --+ --+ ------+| GFR (mL/min/1.73 m2) ?| With Kidney Damage ?| ?Without Kidney Damage+ --------+ --------+ +| ?>90 ?| ?Stage one ?| ? Normal ?+ ---+ ---+ -------+| ?60-89 ?| ?Stage two ?| ? Decreased GFR ? + --+ --+ ------+| ?30-59 ?| ?Stage three ?| ? Stage three ? + --+ --+ ------+| ?15-29 ?| ?Stage four ? | ? Stage four ?+ ---+ ---+ -------+| ?<15 (or dialysis) ? ?| ?Stage five ? | ? Stage five ?+ ---+ ---+ -------+ *Each stage assumes the associated GFR level has been in effect for at least three months. ?Stages 1 to 5, with or without kidney disease, indicate chronic kidney disease. Notes: Determination of stages one and two (with eGFR >59mL/min/1.73 m2) requires estimation of kidney damage for at least three months as defined by structural or functional abnormalities of the kidney, manifested by either:Pathological abnormalities or Markers of kidney damage (including abnormalities in the composition of the blood or urine or abnormalities in imaging tests). Lab Interpretation Abnormal (test code = 42000-6) [facility] GLUCOSE (AUTOMATED)2022-06-12 16:33:52 Test Item Value Reference Range Interpretation Comments POCT GLU (test code = 1733274580) 146 mg/dL 70-110 H Lab Interpretation (test code = Abnormal 59371-1) [facility] 12:51:35 Test Item Value Reference Range Interpretation Comments POCT GLU (test code = 6283480160) 70 mg/dL 70-110 Lab Interpretation (test code = Normal 05053-3) [facility] GLUCOSE (AUTOMATED)2022-06-12 01:50:50 Test Item Value Reference Range Interpretation Comments POCT GLU (test code = 3469921358) 147 mg/dL 70-110 H Lab Interpretation (test code = Abnormal 55661-9) [facility] GLUCOSE (AUTOMATED)2022-06-11 22:13:32 Test Item Value Reference Range Interpretation Comments POCT GLU (test code = 0510314876) 126 mg/dL 70-110 H Lab Interpretation (test code = Abnormal 73609-9) [facility] GLUCOSE (AUTOMATED)2022-06-11 16:27:56 Test Item Value Reference Range Interpretation Comments POCT GLU (test code = 6670222914) 173 mg/dL 70-110 H Lab Interpretation (test code = Abnormal 62177-1) [facility] 13:06:14 Test Item Value Reference Range Interpretation Comments POCT GLU (test code = 6129093993) 102 mg/dL 70-110 Lab Interpretation (test code = Normal 57413-4) [facility] 01:51:01 Test Item Value Reference Range Interpretation Comments POCT GLU (test code = 4518664013) 136 mg/dL 70-110 H Lab Interpretation (test code = Abnormal 29820-8) [facility] GLUCOSE (AUTOMATED)2022-06-10 22:25:18 Test Item Value Reference Range Interpretation Comments POCT GLU (test code = 106 mg/dL 70-110 Notifi ed Provider [id number]) Lab Interpretation (test Normal code = 73505-2) [facility] GLUCOSE (AUTOMATED)2022-06-10 17:15:34 Test Item Value Reference Range Interpretation Comments POCT GLU (test code = 121 mg/dL 70-110 H Notifi ed Provider [id number]) Lab Interpretation (test Abnormal code = 35198-3) [facility] GLUCOSE (AUTOMATED)2022-06-10 13:46:01 Test Item Value Reference Range Interpretation Comments POCT GLU (test code = 92 mg/dL 70-110 Notifi ed Provider [id number]) Lab Interpretation (test Normal code = 48409-0) [facility] GLUCOSE (AUTOMATED)2022-06-10 01:59:33 Test Item Value Reference Range Interpretation Comments POCT GLU (test code = 5678768487) 193 mg/dL 70-110 H Lab Interpretation (test code = Abnormal 34020-1) [facility] GLUCOSE (AUTOMATED)2022-06-09 22:01:14 Test Item Value Reference Range Interpretation Comments POCT GLU (test code = 118 mg/dL 70-110 H Notifi ed Provider [id number]) Lab Interpretation (test Abnormal code = 24438-8) [facility] GLUCOSE (AUTOMATED)2022-06-09 17:13:34 Test Item Value Reference Range Interpretation Comments POCT GLU (test code = 112 mg/dL 70-110 H Notifi ed Provider [id number]) Lab Interpretation (test Abnormal code = 57933-9) [facility] GLUCOSE (AUTOMATED)2022-06-09 02:06:50 Test Item Value Reference Range Interpretation Comments POCT GLU (test code = 4446000365) 188 mg/dL 70-110 H Lab Interpretation (test code = Abnormal 58909-4) [facility] GLUCOSE (AUTOMATED)2022-06-08 21:12:15 Test Item Value Reference Range Interpretation Comments POCT GLU (test code = 6255018450) 183 mg/dL 70-110 H Lab Interpretation (test code = Abnormal 88368-8) [facility] GLUCOSE (AUTOMATED)2022-06-08 16:47:34 Test Item Value Reference Range Interpretation Comments POCT GLU (test code = 0778497736) 187 mg/dL 70-110 H Lab Interpretation (test code = Abnormal 44299-7) [facility] GLUCOSE (AUTOMATED)2022-06-08 13:14:33 Test Item Value Reference Range Interpretation Comments POCT GLU (test code = 6370102064) 140 mg/dL 70-110 H Lab Interpretation (test code = Abnormal 45100-7) [facility] GLUCOSE (AUTOMATED)2022-06-08 02:03:14 Test Item Value Reference Range Interpretation Comments POCT GLU (test code = 0474905476) 186 mg/dL 70-110 H Lab Interpretation (test code = Abnormal 76934-1) [facility] GLUCOSE (AUTOMATED)2022-06-07 22:07:55 Test Item Value Reference Range Interpretation Comments POCT GLU (test code = 3261697550) 246 mg/dL 70-110 H Lab Interpretation (test code = Abnormal 36290-8) [facility] GLUCOSE (AUTOMATED)2022-06-07 17:20:18 Test Item Value Reference Range Interpretation Comments POCT GLU (test code = 6298834994) 269 mg/dL 70-110 H Lab Interpretation (test code = Abnormal 52792-3) [facility] GLUCOSE (AUTOMATED)2022-06-07 13:12:21 Test Item Value Reference Range Interpretation Comments POCT GLU (test code = 4219303314) 299 mg/dL 70-110 H Lab Interpretation (test code = Abnormal 08893-2) [facility] GLUCOSE (AUTOMATED)2022-06-07 03:10:06 Test Item Value Reference Range Interpretation Comments POCT GLU (test code = 0626878229) 251 mg/dL 70-110 H Lab Interpretation (test code = Abnormal 95995-5) [facility] [id number] 01:58:22 Test Item Value Reference Range Interpretation Comments LACTIC ACID (test code = 1.34 mmol/L 0.50-2.20 1593727236) Lab Interpretation (test code = Normal 50772-0) [facility] GLUCOSE (AUTOMATED)2022-06-07 01:51:59 Test Item Value Reference Range Interpretation Comments POCT GLU (test code = 9185326557) 275 mg/dL 70-110 H Lab Interpretation (test code = Abnormal 48472-6) [facility] [id number] 20:05:12 Test Item Value Reference Range Interpretation Comments LACTIC ACID (test code = 2.92 mmol/L 0.50-2.20 H 3630209566) Lab Interpretation (test code = Abnormal 91202-0) [facility] GLUCOSE (AUTOMATED)2022-06-06 19:08:56 Test Item Value Reference Range Interpretation Comments POCT GLU (test code = 1889723043) 338 mg/dL 70-110 H Lab Interpretation (test code = Abnormal 97020-6) [facility] GLUCOSE(AGE >30DAYS)2022-06-06 19:08:00 Test Item Value Reference Range Interpretation Comments POCT Glu (age>30days) (test code = 338 mg/dL 70-110 A 3342) Lab Interpretation (test code = Abnormal 03495-0) [facility] GLUCOSE (AUTOMATED)2022-05-13 18:27:29 Test Item Value Reference Range Interpretation Comments POCT GLU (test code = 1853984653) 279 mg/dL 70-110 H Lab Interpretation (test code = Abnormal 78759-2) [facility] GLUCOSE (AUTOMATED)2022-05-13 16:32:32 Test Item Value Reference Range Interpretation Comments POCT GLU (test code = 3400597823) 241 mg/dL 70-110 H Lab Interpretation (test code = Abnormal 26637-6) [facility]-REACTIVE [id number] 15:06:59 Test Item Value Reference Range Interpretation Comments CRP (test code = 0989624782) 10.7 mg/dL <=0.8 H Lab Interpretation (test code = Abnormal 16778-0) [facility] GLUCOSE (AUTOMATED)2022-05-13 13:06:07 Test Item Value Reference Range Interpretation Comments POCT GLU (test code = 2886184914) 200 mg/dL 70-110 H Lab Interpretation (test code = Abnormal 87889-0) [facility] WITH [id number] 08:52:02 Test Item Value Reference Range Interpretation Comments WBC (test code = 13.07 See_Comment H [Automated 6690-2) message] The sy stem which generated this result transmitted reference range : 4.20 - 10.70 10*3/?L. The reference range was not used to interpret this result as normal/abnormal . RBC (test code = 3.83 See_Comment L [Automated 789-8) message] The sy stem which generated this result transmitted reference range : 4.26 - 5.52 10*6/?L. The reference range was not used to interpret this result as normal/abnormal . HGB (test code = 9.8 g/dL 12.2-16.4 L 718-7) HCT (test code = 31.7 % 38.4-49.3 L 4544-3) MCV (test code = 82.8 fL 81.7-95.6 787-2) MCH (test code = 25.6 pg 26.1-32.7 L 785-6) MCHC (test code = 30.9 g/dL 31.2-35.0 L 786-4) RDW-SD (test code = 48.6 fL 38.5-51.6 59810-9) RDW-CV (test code = 16.2 % 12.1-15.4 H 788-0) PLT (test code = 656 See_Comment H [Automated 777-3) message] The sy stem which generated this result transmitted reference range : 150 - 328 10*3/ ?L. The reference r sherice was not used to interpret this result as normal/abnormal . MPV (test code = 10.6 fL 9.8-13.0 53530-0) NRBC/100 WBC (test 0.0 See_Comment [Automat ed code = 9026821344) message] The system which generated this result transmitted reference range : 0.0 - 10.0 /100 WBCs. The refer ence range was not u sed to interpret th is result as normal/abnormal . NRBC x10^3 (test code See_Comment [Auto mated = 6360465036) message] The s ystem which generated this result transmitted reference range : 10*3/?L. The reference range was not used to interpret this result as normal/abnormal . GRAN MAT (NEUT) % 55.2 % (test code = 770-8) IMM GRAN % (test code 0.40 % = 6115930028) LYMPH % (test code = 32.8 % 736-9) MONO % (test code = 7.8 % 5905-5) EOS % (test code = 3.4 % 713-8) BASO % (test code = 0.4 % 706-2) GRAN MAT x10^3(ANC) 7.22 10*3/uL 1.99-6.95 H (test code = 8161284597) IMM GRAN x10^3 (test 0.05 10*3/uL 0.00-0.06 code = 8866340241) LYMPH x10^3 (test code 4.29 10*3/uL 1.09-3.23 H = 731-0) MONO x10^3 (test code 1.02 10*3/uL 0.36-1.02 = 742-7) EOS x10^3 (test code = 0.44 10*3/uL 0.06-0.53 711-2) BASO x10^3 (test code 0.05 10*3/uL 0.01-0.09 = 704-7) Lab Interpretation Abnormal (test code = 87603-7) [facility] METABOLIC PANEL (NA, K, CL, CO2, GLUCOSE, BUN, CREATININE, CA)2022-05-13 08:19:38 Test Item Value Reference Range Interpretation Comments NA (test code = 134 mmol/L 135-145 L 0256597272) K (test code = 4.4 mmol/L 3.5-5.0 6548505750) CL (test code = 103 mmol/L 98-108 6127958264) CO2 TOTAL (test code = 25 mmol/L 23-31 1850880307) AGAP (test code = 6 2-16 [id number]) BUN (test code = 20 mg/dL 7-23 5613419402) GLUCOSE (test code = 212 mg/dL 70-110 H 8966215396) CREATININE (test code = 0.90 mg/dL 0.60-1.25 4647095162) CALCIUM (test code = 9.4 mg/dL 8.6-10.6 0182655088) eGFR (test code = 84.2 mL/min/1.73m2 7289136587) LUIS ANGEL (test code = LUIS ANGEL) Association of Glomerular Filtration Rate (GFR) and Staging of Kidney Disease* + --+ --+ ------+| GFR (mL/min/1.73 m2) ?| With Kidney Damage ?| ?Without Kidney Damage+ --------+ --------+ +| ?>90 ?| ?Stage one ?| ? Normal ?+ ---+ ---+ -------+| ?60-89 ?| ?Stage two ?| ? Decreased GFR ? + --+ --+ ------+| ?30-59 ?| ?Stage three ?| ? Stage three ? + --+ --+ ------+| ?15-29 ?| ?Stage four ? | ? Stage four ?+ ---+ ---+ -------+| ?<15 (or dialysis) ? ?| ?Stage five ? | ? Stage five ?+ ---+ ---+ -------+ *Each stage assumes the associated GFR level has been in effect for at least three months. ?Stages 1 to 5, with or without kidney disease, indicate chronic kidney disease. Notes: Determination of stages one and two (with eGFR >59mL/min/1.73 m2) requires estimation of kidney damage for at least three months as defined by structural or functional abnormalities of the kidney, manifested by either:Pathological abnormalities or Markers of kidney damage (including abnormalities in the composition of the blood or urine or abnormalities in imaging tests). Lab Interpretation Abnormal (test code = 10597-1) [facility] GLUCOSE (AUTOMATED)2022-05-13 05:06:29 Test Item Value Reference Range Interpretation Comments POCT GLU (test code = 5620285046) 268 mg/dL 70-110 H Lab Interpretation (test code = Abnormal 35993-8) [facility] GLUCOSE (AUTOMATED)2022-05-13 02:14:34 Test Item Value Reference Range Interpretation Comments POCT GLU (test code = 9301594917) 309 mg/dL 70-110 H Lab Interpretation (test code = Abnormal 20125-2) [facility] GLUCOSE (AUTOMATED)2022-05-12 21:56:29 Test Item Value Reference Range Interpretation Comments POCT GLU (test code = 1000782869) 268 mg/dL 70-110 H Lab Interpretation (test code = Abnormal 74855-2) [id number]55:39 Test Item Value Reference Range Interpretation Comments ESR (test code = 116 See_Comment H [Automated message] 80272-4) The system AKT generated this result transmitted ref erence range: 0 - 10 m m/HR. The reference r sherice was not used to interpret this result as normal/abnor mal. Lab Interpretation (test Abnormal code = 60062-0) [facility] GLUCOSE (AUTOMATED)2022-05-12 16:54:26 Test Item Value Reference Range Interpretation Comments POCT GLU (test code = 4835517310) 326 mg/dL 70-110 H Lab Interpretation (test code = Abnormal 52810-6) [facility] GLUCOSE (AUTOMATED)2022-05-12 13:42:55 Test Item Value Reference Range Interpretation Comments POCT GLU (test code = 3036055451) 229 mg/dL 70-110 H Lab Interpretation (test code = Abnormal 52165-5) [facility] GLUCOSE (AUTOMATED)2022-05-11 22:34:52 Test Item Value Reference Range Interpretation Comments POCT GLU (test code = 4410064365) 344 mg/dL 70-110 H Lab Interpretation (test code = Abnormal 44301-6) [facility] GLUCOSE (AUTOMATED)2022-05-11 17:43:38 Test Item Value Reference Range Interpretation Comments POCT GLU (test code = 3489859215) 283 mg/dL 70-110 H Lab Interpretation (test code = Abnormal 31837-1) [facility] 17:43:38 Test Item Value Reference Range Interpretation Comments POCT GLU (test code = 9487012218) 283 mg/dL 70-110 H Lab Interpretation (test code = Abnormal 67010-4) [facility] GLUCOSE (AUTOMATED)2022-05-11 14:01:04 Test Item Value Reference Range Interpretation Comments POCT GLU (test code = 9733867667) 192 mg/dL 70-110 H Lab Interpretation (test code = Abnormal 91402-7) [facility] 14:01:04 Test Item Value Reference Range Interpretation Comments POCT GLU (test code = 2935058168) 192 mg/dL 70-110 H Lab Interpretation (test code = Abnormal 33642-7) [facility] GLUCOSE (AUTOMATED)2022-05-11 02:14:42 Test Item Value Reference Range Interpretation Comments POCT GLU (test code = 7922269232) 277 mg/dL 70-110 H Lab Interpretation (test code = Abnormal 02273-3) [facility] GLUCOSE (AUTOMATED)2022-05-11 02:14:42 Test Item Value Reference Range Interpretation Comments POCT GLU (test code = 9330294716) 277 mg/dL 70-110 H Lab Interpretation (test code = Abnormal 19657-4) [facility] GLUCOSE (AUTOMATED)2022-05-10 22:24:59 Test Item Value Reference Range Interpretation Comments POCT GLU (test code = 0295619115) 170 mg/dL 70-110 H Lab Interpretation (test code = Abnormal 55076-1) [facility] GLUCOSE (AUTOMATED)2022-05-10 22:24:59 Test Item Value Reference Range Interpretation Comments POCT GLU (test code = 1305800692) 170 mg/dL 70-110 H Lab Interpretation (test code = Abnormal 43835-5) [facility] GLUCOSE (AUTOMATED)2022-05-10 20:11:43 Test Item Value Reference Range Interpretation Comments POCT GLU (test code = 9060224814) 149 mg/dL 70-110 H Lab Interpretation (test code = Abnormal 32133-9) [facility] GLUCOSE (AUTOMATED)2022-05-10 20:11:43 Test Item Value Reference Range Interpretation Comments POCT GLU (test code = 7319558689) 149 mg/dL 70-110 H Lab Interpretation (test code = Abnormal 16733-8) [facility] GLUCOSE (AUTOMATED)2022-05-10 19:19:23 Test Item Value Reference Range Interpretation Comments POCT GLU (test code = 6705382096) 189 mg/dL 70-110 H Lab Interpretation (test code = Abnormal 26626-8) [facility] GLUCOSE (AUTOMATED)2022-05-10 19:19:23 Test Item Value Reference Range Interpretation Comments POCT GLU (test code = 6130166275) 189 mg/dL 70-110 H Lab Interpretation (test code = Abnormal 00807-4) [facility] GLUCOSE (AUTOMATED)2022-05-10 18:05:40 Test Item Value Reference Range Interpretation Comments POCT GLU (test code = 7973347607) 286 mg/dL 70-110 H Lab Interpretation (test code = Abnormal 96020-3) [facility] GLUCOSE (AUTOMATED)2022-05-10 18:05:40 Test Item Value Reference Range Interpretation Comments POCT GLU (test code = 4049621836) 286 mg/dL 70-110 H Lab Interpretation (test code = Abnormal 79612-5) [facility] GLUCOSE (AUTOMATED)2022-05-10 16:08:20 Test Item Value Reference Range Interpretation Comments POCT GLU (test code = 6787726869) 373 mg/dL 70-110 H Lab Interpretation (test code = Abnormal 34105-9) [facility] GLUCOSE (AUTOMATED)2022-05-10 16:08:20 Test Item Value Reference Range Interpretation Comments POCT GLU (test code = 6667260981) 373 mg/dL 70-110 H Lab Interpretation (test code = Abnormal 95173-3) [facility] GLUCOSE (AUTOMATED)2022-04-16 17:57:19 Test Item Value Reference Range Interpretation Comments POCT GLU (test code = 2940436766) 251 mg/dL 70-110 H Lab Interpretation (test code = Abnormal 82430-5) [facility] GLUCOSE (AUTOMATED)2022-04-16 13:53:44 Test Item Value Reference Range Interpretation Comments POCT GLU (test code = 2442077398) 222 mg/dL 70-110 H Lab Interpretation (test code = Abnormal 18179-4) [facility] GLUCOSE (AUTOMATED)2022-04-16 02:22:58 Test Item Value Reference Range Interpretation Comments POCT GLU (test code = 5986178063) 235 mg/dL 70-110 H Lab Interpretation (test code = Abnormal 68326-2) [facility] GLUCOSE (AUTOMATED)2022-04-16 00:21:48 Test Item Value Reference Range Interpretation Comments POCT GLU (test code = 1536828693) 273 mg/dL 70-110 H Lab Interpretation (test code = Abnormal 94625-6) [facility] GLUCOSE (AUTOMATED)2022-04-15 17:40:54 Test Item Value Reference Range Interpretation Comments POCT GLU (test code = 0690396063) 286 mg/dL 70-110 H Lab Interpretation (test code = Abnormal 82408-6) [facility] GLUCOSE (AUTOMATED)2022-04-15 13:57:05 Test Item Value Reference Range Interpretation Comments POCT GLU (test code = 9294079025) 197 mg/dL 70-110 H Lab Interpretation (test code = Abnormal 61070-3) [facility] WITH [id number] 10:27:25 Test Item Value Reference Range Interpretation Comments WBC (test code = 13.12 See_Comment H [Automated 6690-2) message] The sy stem which generated this result transmitted reference range : 4.20 - 10.70 10*3/?L. The reference range was not used to interpret this result as normal/abnormal . RBC (test code = 2.92 See_Comment L [Automated 789-8) message] The sy stem which generated this result transmitted reference range : 4.26 - 5.52 10*6/?L. The reference range was not used to interpret this result as normal/abnormal . HGB (test code = 7.8 g/dL 12.2-16.4 L 718-7) HCT (test code = 24.1 % 38.4-49.3 L 4544-3) MCV (test code = 82.5 fL 81.7-95.6 787-2) MCH (test code = 26.7 pg 26.1-32.7 785-6) MCHC (test code = 32.4 g/dL 31.2-35.0 786-4) RDW-SD (test code = 48.6 fL 38.5-51.6 73131-4) RDW-CV (test code = 15.9 % 12.1-15.4 H 788-0) PLT (test code = 668 See_Comment H [Automated 777-3) message] The sy stem which generated this result transmitted reference range : 150 - 328 10*3/ ?L. The reference r sherice was not used to interpret this result as normal/abnormal . MPV (test code = 10.5 fL 9.8-13.0 41127-2) NRBC/100 WBC (test 0.0 See_Comment [Automat ed code = 7247980134) message] The system which generated this result transmitted reference range : 0.0 - 10.0 /100 WBCs. The refer ence range was not u sed to interpret th is result as normal/abnormal . NRBC x10^3 (test code See_Comment [Auto mated = 5426740567) message] The s ystem which generated this result transmitted reference range : 10*3/?L. The reference range was not used to interpret this result as normal/abnormal . GRAN MAT (NEUT) % 52.3 % (test code = 770-8) IMM GRAN % (test code 0.50 % = 2394692631) LYMPH % (test code = 30.5 % 736-9) MONO % (test code = 10.1 % 5905-5) EOS % (test code = 6.1 % 713-8) BASO % (test code = 0.5 % 706-2) GRAN MAT x10^3(ANC) 6.86 10*3/uL 1.99-6.95 (test code = 1651114264) IMM GRAN x10^3 (test 0.07 10*3/uL 0.00-0.06 H code = 4275783482) LYMPH x10^3 (test code 4.00 10*3/uL 1.09-3.23 H = 731-0) MONO x10^3 (test code 1.32 10*3/uL 0.36-1.02 H = 742-7) EOS x10^3 (test code = 0.80 10*3/uL 0.06-0.53 H 711-2) BASO x10^3 (test code 0.07 10*3/uL 0.01-0.09 = 704-7) Lab Interpretation Abnormal (test code = 38506-7) [facility] METABOLIC PANEL (NA, K, CL, CO2, GLUCOSE, BUN, CREATININE, CA)2022-04-15 09:51:35 Test Item Value Reference Range Interpretation Comments NA (test code = 133 mmol/L 135-145 L 1994001746) K (test code = 3.9 mmol/L 3.5-5.0 3596006864) CL (test code = 105 mmol/L 98-108 1742173791) CO2 TOTAL (test code = 24 mmol/L 23-31 4827682122) AGAP (test code = 4 2-16 2866498430) BUN (test code = 7 mg/dL 7-23 6852914107) GLUCOSE (test code = 180 mg/dL 70-110 H 7138722032) CREATININE (test code = 0.70 mg/dL 0.60-1.25 3188077498) CALCIUM (test code = 8.9 mg/dL 8.6-10.6 2484273646) eGFR (test code = 112.5 mL/min/1.73m2 0372145498) LUIS ANGEL (test code = LUIS ANGEL) Association of Glomerular Filtration Rate (GFR) and Staging of Kidney Disease* + --+ --+ ------+| GFR (mL/min/1.73 m2) ?| With Kidney Damage ?| ?Without Kidney Damage+ --------+ --------+ +| ?>90 ?| ?Stage one ?| ? Normal ?+ ---+ ---+ -------+| ?60-89 ?| ?Stage two ?| ? Decreased GFR ? + --+ --+ ------+| ?30-59 ?| ?Stage three ?| ? Stage three ? + --+ --+ ------+| ?15-29 ?| ?Stage four ? | ? Stage four ?+ ---+ ---+ -------+| ?<15 (or dialysis) ? ?| ?Stage five ? | ? Stage five ?+ ---+ ---+ -------+ *Each stage assumes the associated GFR level has been in effect for at least three months. ?Stages 1 to 5, with or without kidney disease, indicate chronic kidney disease. Notes: Determination of stages one and two (with eGFR >59mL/min/1.73 m2) requires estimation of kidney damage for at least three months as defined by structural or functional abnormalities of the kidney, manifested by either:Pathological abnormalities or Markers of kidney damage (including abnormalities in the composition of the blood or urine or abnormalities in imaging tests). Lab Interpretation Abnormal (test code = 45840-2) [facility] GLUCOSE (AUTOMATED)2022-04-15 02:43:35 Test Item Value Reference Range Interpretation Comments POCT GLU (test code = 6651275547) 249 mg/dL 70-110 H Lab Interpretation (test code = Abnormal 80477-1) [facility] GLUCOSE (AUTOMATED)2022-04-14 22:52:09 Test Item Value Reference Range Interpretation Comments POCT GLU (test code = 0193796918) 216 mg/dL 70-110 H Lab Interpretation (test code = Abnormal 99114-2) [facility] GLUCOSE (AUTOMATED)2022-04-14 18:05:19 Test Item Value Reference Range Interpretation Comments POCT GLU (test code = 6909506228) 255 mg/dL 70-110 H Lab Interpretation (test code = Abnormal 11576-0) [facility] GLUCOSE (AUTOMATED)2022-04-14 18:05:19 Test Item Value Reference Range Interpretation Comments POCT GLU (test code = 8335269475) 255 mg/dL 70-110 H Lab Interpretation (test code = Abnormal 21739-8) [facility] GLUCOSE (AUTOMATED)2022-04-14 14:22:47 Test Item Value Reference Range Interpretation Comments POCT GLU (test code = 2688545689) 232 mg/dL 70-110 H Lab Interpretation (test code = Abnormal 95866-5) [facility] GLUCOSE (AUTOMATED)2022-04-14 14:22:47 Test Item Value Reference Range Interpretation Comments POCT GLU (test code = 7711633773) 232 mg/dL 70-110 H Lab Interpretation (test code = Abnormal 54373-2) [facility] GLUCOSE (AUTOMATED)2022-04-14 03:35:43 Test Item Value Reference Range Interpretation Comments POCT GLU (test code = 9197310323) 256 mg/dL 70-110 H Lab Interpretation (test code = Abnormal 69671-2) [facility] GLUCOSE (AUTOMATED)2022-04-14 03:35:43 Test Item Value Reference Range Interpretation Comments POCT GLU (test code = 9349688964) 256 mg/dL 70-110 H Lab Interpretation (test code = Abnormal 38115-9) [facility] GLUCOSE (AUTOMATED)2022-04-14 00:06:38 Test Item Value Reference Range Interpretation Comments POCT GLU (test code = 3542453348) 260 mg/dL 70-110 H Lab Interpretation (test code = Abnormal 22714-6) [facility] GLUCOSE (AUTOMATED)2022-04-14 00:06:38 Test Item Value Reference Range Interpretation Comments POCT GLU (test code = 8405138523) 260 mg/dL 70-110 H Lab Interpretation (test code = Abnormal 30695-4) [facility] 2022-04-13 18:44:35 Test Item Value Reference Range Interpretation Comments ABO & RH (test code O Positive Performe d at [facility] = 20) Laboratory [facility] [place] [address]Vbqp Free: [phone] A No. [id number] IAT (test code = Negative Performed a t [facility] 1185) Laboratory [facility] Blood [address] [address] Free: [phone] A No. [id number] [facility]CE [facility] 2022-04-13 18:44:35 Test Item Value Reference Range Interpretation Comments ABO & RH (test code O Positive Performe d at [facility] = 20) Laboratory [facility] Blood [address] [id number] Free: [phone] A No. [id number] IAT (test code = Negative Performed a t [facility] 1185) Laboratory [facility] Blood [address] [address]Liiy Free: [phone] A No. [id number] [facility] GLUCOSE (AUTOMATED)2022-04-13 17:30:50 Test Item Value Reference Range Interpretation Comments POCT GLU (test code = 6116099101) 267 mg/dL 70-110 H Lab Interpretation (test code = Abnormal 50068-0) [facility] GLUCOSE (AUTOMATED)2022-04-13 17:30:50 Test Item Value Reference Range Interpretation Comments POCT GLU (test code = 0010897948) 267 mg/dL 70-110 H Lab Interpretation (test code = Abnormal 54566-2) [facility] GLUCOSE (AUTOMATED)2022-04-13 13:57:34 Test Item Value Reference Range Interpretation Comments POCT GLU (test code = 4428505584) 208 mg/dL 70-110 H Lab Interpretation (test code = Abnormal 57057-2) [facility] GLUCOSE (AUTOMATED)2022-04-13 13:57:34 Test Item Value Reference Range Interpretation Comments POCT GLU (test code = 3034616672) 208 mg/dL 70-110 H Lab Interpretation (test code = Abnormal 59842-0) [facility] WITH [id number] 12:50:45 Test Item Value Reference Range Interpretation Comments WBC (test code = 17.04 See_Comment H [Automated 6690-2) message] The system which generated this result transmit ender reference range : 4.20 - 10.70 10*3/?L. The reference range was not used to interpret this result as normal/abnormal . RBC (test code = 3.14 See_Comment L [Automated 789-8) message] The system which generated this result transmit ender reference range : 4.26 - 5.52 10*6/?L. The reference range was not used to interpret this result as normal/abnormal . HGB (test code = 8.4 g/dL 12.2-16.4 L 718-7) HCT (test code = 26.1 % 38.4-49.3 L 4544-3) MCV (test code = 83.1 fL 81.7-95.6 787-2) MCH (test code = 26.8 pg 26.1-32.7 785-6) MCHC (test code = 32.2 g/dL 31.2-35.0 786-4) RDW-SD (test code = 49.3 fL 38.5-51.6 64110-6) RDW-CV (test code = 16.2 % 12.1-15.4 H 788-0) PLT (test code = 647 See_Comment H [Automated 777-3) message] The system which generated this result transmit ender reference range : 150 - 328 10*3/ ?L. The reference range was not u sed to interpret th is result as normal/abnormal . MPV (test code = 11.1 fL 9.8-13.0 96969-1) NRBC/100 WBC (test 0.0 See_Comment [Automat ed code = 4276253556) message] The system which generated this result transmit ender reference range : 0.0 - 10.0 /100 WBCs. The reference range was not used to interpret this result as normal/abnormal . NRBC x10^3 (test code See_Comment [Auto mated = 6323006094) message] The system which generated this result transmit ender reference range : 10*3/?L. The reference range was not used to interpret this result as normal/abnormal . GRAN MAT (NEUT) % 61.8 % (test code = 770-8) IMM GRAN % (test code 0.80 % = 9717545712) LYMPH % (test code = 22.6 % 736-9) MONO % (test code = 10.9 % 5905-5) EOS % (test code = 3.3 % 713-8) BASO % (test code = 0.6 % 706-2) GRAN MAT x10^3(ANC) 10.51 10*3/uL 1.99-6.95 H (test code = 4535473859) IMM GRAN x10^3 (test 0.14 10*3/uL 0.00-0.06 H code = 5590097706) LYMPH x10^3 (test code 3.85 10*3/uL 1.09-3.23 H = 731-0) MONO x10^3 (test code 1.86 10*3/uL 0.36-1.02 H = 742-7) EOS x10^3 (test code = 0.57 10*3/uL 0.06-0.53 H 711-2) BASO x10^3 (test code 0.11 10*3/uL 0.01-0.09 H = 704-7) Lab Interpretation Abnormal (test code = 48428-2) [facility] WITH [id number] 12:50:45 Test Item Value Reference Range Interpretation Comments WBC (test code = 17.04 See_Comment H [Automated 6790-2) message] The system which generated this result transmit ender reference range : 4.20 - 10.70 10*3/?L. The reference range was not used to interpret this result as normal/abnormal . RBC (test code = 3.14 See_Comment L [Automated 936-8) message] The system which generated this result transmit ender reference range : 4.26 - 5.52 10*6/?L. The reference range was not used to interpret this result as normal/abnormal . HGB (test code = 8.4 g/dL 12.2-16.4 L 718-7) HCT (test code = 26.1 % 38.4-49.3 L 4544-3) MCV (test code = 83.1 fL 81.7-95.6 787-2) MCH (test code = 26.8 pg 26.1-32.7 785-6) MCHC (test code = 32.2 g/dL 31.2-35.0 786-4) RDW-SD (test code = 49.3 fL 38.5-51.6 06570-2) RDW-CV (test code = 16.2 % 12.1-15.4 H 788-0) PLT (test code = 647 See_Comment H [Automated 777-3) message] The system which generated this result transmit ender reference range : 150 - 328 10*3/ ?L. The reference range was not u sed to interpret th is result as normal/abnormal . MPV (test code = 11.1 fL 9.8-13.0 29827-6) NRBC/100 WBC (test 0.0 See_Comment [Automat ed code = 3746679728) message] The system which generated this result transmit ender reference range : 0.0 - 10.0 /100 WBCs. The reference range was not used to interpret this result as normal/abnormal . NRBC x10^3 (test code See_Comment [Auto mated = 6180454724) message] The system which generated this result transmit ender reference range : 10*3/?L. The reference range was not used to interpret this result as normal/abnormal . GRAN MAT (NEUT) % 61.8 % (test code = 770-8) IMM GRAN % (test code 0.80 % = 6984389146) LYMPH % (test code = 22.6 % 736-9) MONO % (test code = 10.9 % 5905-5) EOS % (test code = 3.3 % 713-8) BASO % (test code = 0.6 % 706-2) GRAN MAT x10^3(ANC) 10.51 10*3/uL 1.99-6.95 H (test code = 1625828296) IMM GRAN x10^3 (test 0.14 10*3/uL 0.00-0.06 H code = 5328147492) LYMPH x10^3 (test code 3.85 10*3/uL 1.09-3.23 H = 731-0) MONO x10^3 (test code 1.86 10*3/uL 0.36-1.02 H = 742-7) EOS x10^3 (test code = 0.57 10*3/uL 0.06-0.53 H 711-2) BASO x10^3 (test code 0.11 10*3/uL 0.01-0.09 H = 704-7) Lab Interpretation Abnormal (test code = 25512-8) [facility] METABOLIC PANEL (NA, K, CL, CO2, GLUCOSE, BUN, CREATININE, CA)2022-04-13 11:43:36 Test Item Value Reference Range Interpretation Comments NA (test code = 134 mmol/L 135-145 L 9000633954) K (test code = 3.5 mmol/L 3.5-5.0 1762487778) CL (test code = 106 mmol/L 98-108 2700476992) CO2 TOTAL (test code = 23 mmol/L 23-31 0183098663) AGAP (test code = 5 2-16 8527764749) BUN (test code = 13 mg/dL 7-23 3056806174) GLUCOSE (test code = 183 mg/dL 70-110 H 1948873547) CREATININE (test code = 0.74 mg/dL 0.60-1.25 2809014868) CALCIUM (test code = 8.5 mg/dL 8.6-10.6 L 2787060184) eGFR (test code = 105.5 mL/min/1.73m2 0667713281) LUIS ANGEL (test code = LUIS ANGEL) Association of Glomerular Filtration Rate (GFR) and Staging of Kidney Disease* + --+ --+ ------+| GFR (mL/min/1.73 m2) ?| With Kidney Damage ?| ?Without Kidney Damage+ --------+ --------+ +| ?>90 ?| ?Stage one ?| ? Normal ?+ ---+ ---+ -------+| ?60-89 ?| ?Stage two ?| ? Decreased GFR ? + --+ --+ ------+| ?30-59 ?| ?Stage three ?| ? Stage three ? + --+ --+ ------+| ?15-29 ?| ?Stage four ? | ? Stage four ?+ ---+ ---+ -------+| ?<15 (or dialysis) ? ?| ?Stage five ? | ? Stage five ?+ ---+ ---+ -------+ *Each stage assumes the associated GFR level has been in effect for at least three months. ?Stages 1 to 5, with or without kidney disease, indicate chronic kidney disease. Notes: Determination of stages one and two (with eGFR >59mL/min/1.73 m2) requires estimation of kidney damage for at least three months as defined by structural or functional abnormalities of the kidney, manifested by either:Pathological abnormalities or Markers of kidney damage (including abnormalities in the composition of the blood or urine or abnormalities in imaging tests). Lab Interpretation Abnormal (test code = 70097-0) [facility] METABOLIC PANEL (NA, K, CL, CO2, GLUCOSE, BUN, CREATININE, CA)2022-04-13 11:43:36 Test Item Value Reference Range Interpretation Comments NA (test code = 134 mmol/L 135-145 L 5784301737) K (test code = 3.5 mmol/L 3.5-5.0 4099722287) CL (test code = 106 mmol/L 98-108 7455287300) CO2 TOTAL (test code = 23 mmol/L 23-31 4843236021) AGAP (test code = 5 2-16 4025078516) BUN (test code = 13 mg/dL 7-23 3653482846) GLUCOSE (test code = 183 mg/dL 70-110 H 2337990807) CREATININE (test code = 0.74 mg/dL 0.60-1.25 3266511414) CALCIUM (test code = 8.5 mg/dL 8.6-10.6 L 3700363469) eGFR (test code = 105.5 mL/min/1.73m2 4616989574) LUIS ANGEL (test code = LUIS ANGEL) Association of Glomerular Filtration Rate (GFR) and Staging of Kidney Disease* + --+ --+ ------+| GFR (mL/min/1.73 m2) ?| With Kidney Damage ?| ?Without Kidney Damage+ --------+ --------+ +| ?>90 ?| ?Stage one ?| ? Normal ?+ ---+ ---+ -------+| ?60-89 ?| ?Stage two ?| ? Decreased GFR ? + --+ --+ ------+| ?30-59 ?| ?Stage three ?| ? Stage three ? + --+ --+ ------+| ?15-29 ?| ?Stage four ? | ? Stage four ?+ ---+ ---+ -------+| ?<15 (or dialysis) ? ?| ?Stage five ? | ? Stage five ?+ ---+ ---+ -------+ *Each stage assumes the associated GFR level has been in effect for at least three months. ?Stages 1 to 5, with or without kidney disease, indicate chronic kidney disease. Notes: Determination of stages one and two (with eGFR >59mL/min/1.73 m2) requires estimation of kidney damage for at least three months as defined by structural or functional abnormalities of the kidney, manifested by either:Pathological abnormalities or Markers of kidney damage (including abnormalities in the composition of the blood or urine or abnormalities in imaging tests). Lab Interpretation Abnormal (test code = 85996-4) [facility] GLUCOSE (AUTOMATED)2022-04-13 02:50:03 Test Item Value Reference Range Interpretation Comments POCT GLU (test code = 4077991196) 293 mg/dL 70-110 H Lab Interpretation (test code = Abnormal 38597-4) [facility] GLUCOSE (AUTOMATED)2022-04-13 02:50:03 Test Item Value Reference Range Interpretation Comments POCT GLU (test code = 7533289250) 293 mg/dL 70-110 H Lab Interpretation (test code = Abnormal 24714-2) [facility] GLUCOSE (AUTOMATED)2022-04-12 22:18:05 Test Item Value Reference Range Interpretation Comments POCT GLU (test code = 0244192263) 233 mg/dL 70-110 H Lab Interpretation (test code = Abnormal 93837-7) [facility] GLUCOSE (AUTOMATED)2022-04-12 22:18:05 Test Item Value Reference Range Interpretation Comments POCT GLU (test code = 6447245171) 233 mg/dL 70-110 H Lab Interpretation (test code = Abnormal 66014-5) [facility] GLUCOSE (AUTOMATED)2022-04-12 18:30:25 Test Item Value Reference Range Interpretation Comments POCT GLU (test code = 2918921342) 306 mg/dL 70-110 H Lab Interpretation (test code = Abnormal 79972-3) [facility] GLUCOSE (AUTOMATED)2022-04-12 18:30:25 Test Item Value Reference Range Interpretation Comments POCT GLU (test code = 5571524429) 306 mg/dL 70-110 H Lab Interpretation (test code = Abnormal 46743-4) [facility] GLUCOSE (AUTOMATED)2022-04-12 14:01:56 Test Item Value Reference Range Interpretation Comments POCT GLU (test code = 3448795431) 277 mg/dL 70-110 H Lab Interpretation (test code = Abnormal 30278-4) [facility] GLUCOSE (AUTOMATED)2022-04-12 14:01:56 Test Item Value Reference Range Interpretation Comments POCT GLU (test code = 1084975062) 277 mg/dL 70-110 H Lab Interpretation (test code = Abnormal 58435-7) [facility] Test Item Value Reference Range Interpretation Comments LIPASE (test code = 3074471813) 28 U/L 0-220 Lab Interpretation (test code = Normal 71692-1) [facility] 10:59[facility]09 Test Item Value Reference Range Interpretation Comments LIPASE (test code = 9424044115) 28 U/L 0-220 Lab Interpretation (test code = Normal 89033-9) [facility] [id number] 10:29:48 Test Item Value Reference Range Interpretation Comments LACTIC ACID (test code = 1.29 mmol/L 0.50-2.20 9812769177) Lab Interpretation (test code = Normal 07573-2) [facility] [id number] 10:29:48 Test Item Value Reference Range Interpretation Comments LACTIC ACID (test code = 1.29 mmol/L 0.50-2.20 8256196482) Lab Interpretation (test code = Normal 68882-2) [facility] [id number] 22:54:55 Test Item Value Reference Range Interpretation Comments WBC (test code = 19.23 See_Comment H [Automated 6690-2) message] The system which generated this result transmit ender reference range : 4.20 - 10.70 10*3/?L. The reference range was not used to interpret this result as normal/abnormal . RBC (test code = 3.15 See_Comment L [Automated 789-8) message] The system which generated this result transmit ender reference range : 4.26 - 5.52 10*6/?L. The reference range was not used to interpret this result as normal/abnormal . HGB (test code = 8.2 g/dL 12.2-16.4 L 718-7) HCT (test code = 26.4 % 38.4-49.3 L 4544-3) MCV (test code = 83.8 fL 81.7-95.6 787-2) MCH (test code = 26.0 pg 26.1-32.7 L 785-6) MCHC (test code = 31.1 g/dL 31.2-35.0 L 786-4) RDW-SD (test code = 50.4 fL 38.5-51.6 78483-6) RDW-CV (test code = 16.3 % 12.1-15.4 H 788-0) PLT (test code = 559 See_Comment H [Automated 777-3) message] The system which generated this result transmit ender reference range : 150 - 328 10*3/ ?L. The reference range was not u sed to interpret th is result as normal/abnormal . MPV (test code = 11.0 fL 9.8-13.0 46160-6) NRBC/100 WBC (test 0.0 See_Comment [Automat ed code = 6018596313) message] The system which generated this result transmit ender reference range : 0.0 - 10.0 /100 WBCs. The reference range was not used to interpret this result as normal/abnormal . NRBC x10^3 (test code See_Comment [Auto mated = 4779652699) message] The system which generated this result transmit ender reference range : 10*3/?L. The reference range was not used to interpret this result as normal/abnormal . GRAN MAT (NEUT) % 77.0 % (test code = 770-8) IMM GRAN % (test code 1.90 % = 7708820424) LYMPH % (test code = 10.7 % 736-9) MONO % (test code = 9.8 % 5905-5) EOS % (test code = 0.2 % 713-8) BASO % (test code = 0.4 % 706-2) GRAN MAT x10^3(ANC) 14.82 10*3/uL 1.99-6.95 H (test code = 2169943432) IMM GRAN x10^3 (test 0.37 10*3/uL 0.00-0.06 H code = 4175664860) LYMPH x10^3 (test code 2.05 10*3/uL 1.09-3.23 = 731-0) MONO x10^3 (test code 1.88 10*3/uL 0.36-1.02 H = 742-7) EOS x10^3 (test code = 0.04 10*3/uL 0.06-0.53 L 711-2) BASO x10^3 (test code 0.07 10*3/uL 0.01-0.09 = 704-7) Lab Interpretation Abnormal (test code = 21048-7) [facility] WITH [id number] 22:54:55 Test Item Value Reference Range Interpretation Comments WBC (test code = 19.23 See_Comment H [Automated 6690-2) message] The system which generated this result transmit ender reference range : 4.20 - 10.70 10*3/?L. The reference range was not used to interpret this result as normal/abnormal . RBC (test code = 3.15 See_Comment L [Automated 789-8) message] The system which generated this result transmit ender reference range : 4.26 - 5.52 10*6/?L. The reference range was not used to interpret this result as normal/abnormal . HGB (test code = 8.2 g/dL 12.2-16.4 L 718-7) HCT (test code = 26.4 % 38.4-49.3 L 4544-3) MCV (test code = 83.8 fL 81.7-95.6 787-2) MCH (test code = 26.0 pg 26.1-32.7 L 785-6) MCHC (test code = 31.1 g/dL 31.2-35.0 L 786-4) RDW-SD (test code = 50.4 fL 38.5-51.6 97450-1) RDW-CV (test code = 16.3 % 12.1-15.4 H 788-0) PLT (test code = 559 See_Comment H [Automated 777-3) message] The system which generated this result transmit ender reference range : 150 - 328 10*3/ ?L. The reference range was not u sed to interpret th is result as normal/abnormal . MPV (test code = 11.0 fL 9.8-13.0 03710-4) NRBC/100 WBC (test 0.0 See_Comment [Automat ed code = 8835822350) message] The system which generated this result transmit ender reference range : 0.0 - 10.0 /100 WBCs. The reference range was not used to interpret this result as normal/abnormal . NRBC x10^3 (test code See_Comment [Auto mated = 4699922075) message] The system which generated this result transmit ender reference range : 10*3/?L. The reference range was not used to interpret this result as normal/abnormal . GRAN MAT (NEUT) % 77.0 % (test code = 770-8) IMM GRAN % (test code 1.90 % = 8257470720) LYMPH % (test code = 10.7 % 736-9) MONO % (test code = 9.8 % 5905-5) EOS % (test code = 0.2 % 713-8) BASO % (test code = 0.4 % 706-2) GRAN MAT x10^3(ANC) 14.82 10*3/uL 1.99-6.95 H (test code = 9831550550) IMM GRAN x10^3 (test 0.37 10*3/uL 0.00-0.06 H code = 8709911786) LYMPH x10^3 (test code 2.05 10*3/uL 1.09-3.23 = 731-0) MONO x10^3 (test code 1.88 10*3/uL 0.36-1.02 H = 742-7) EOS x10^3 (test code = 0.04 10*3/uL 0.06-0.53 L 711-2) BASO x10^3 (test code 0.07 10*3/uL 0.01-0.09 = 704-7) Lab Interpretation Abnormal (test code = 94705-2) [facility] [id number] 22:29:08 Test Item Value Reference Range Interpretation Comments TROPONIN I (test code = 0.033 ng/mL <=0.034 1770150233) LUIS ANGEL (test code = LUIS ANGEL) Reference (Normal) Range (defined by the 99th percentile reference limit): <= 0.034 ng/mL Note: Cardiac troponin begins to rise 3-4 hours after the onset of ischemia. Repeat in 4-6 hours if the sample was drawn within 3-4 hours of the onset of the symptom and found normal. Diagnosis of myocardial injury is made with acute changes in cTn concentrations with at least one serial sample above the 99th percentile upper reference limit (URL), taken together with the patient's clinical presentation. Biotin has been reported to cause a negative bias, interpret results relative to patient's use of biotin. Lab Interpretation Normal (test code = 10793-2) [facility] [id number] 22:29:08 Test Item Value Reference Range Interpretation Comments TROPONIN I (test code = 0.033 ng/mL <=0.034 8246521817) LUIS ANGEL (test code = LUIS ANGEL) Reference (Normal) Range (defined by the 99th percentile reference limit): <= 0.034 ng/mL Note: Cardiac troponin begins to rise 3-4 hours after the onset of ischemia. Repeat in 4-6 hours if the sample was drawn within 3-4 hours of the onset of the symptom and found normal. Diagnosis of myocardial injury is made with acute changes in cTn concentrations with at least one serial sample above the 99th percentile upper reference limit (URL), taken together with the patient's clinical presentation. Biotin has been reported to cause a negative bias, interpret results relative to patient's use of biotin. Lab Interpretation Normal (test code = 53282-7) [facility]. METABOLIC PANEL ([id number])2022-04-11 22:17:27 Test Item Value Reference Range Interpretation Comments NA (test code = 128 mmol/L 135-145 L 8265606919) K (test code = 4.3 mmol/L 3.5-5.0 3178219397) CL (test code = 97 mmol/L 98-108 L 1550427434) CO2 TOTAL (test code = 19 mmol/L 23-31 L 7219793238) AGAP (test code = 12 2-16 4845842685) BUN (test code = 19 mg/dL 7-23 6156398022) GLUCOSE (test code = 364 mg/dL 70-110 H 7310918546) CREATININE (test code = 1.34 mg/dL 0.60-1.25 H 0747070872) TOTAL BILI (test code = 0.8 mg/dL 0.1-1.4 2035846185) CALCIUM (test code = 9.1 mg/dL 8.6-10.6 9308549790) T PROTEIN (test code = 7.2 g/dL 6.3-8.2 1865184621) ALBUMIN (test code = 2.9 g/dL 3.5-5.0 L 4287478390) ALK PHOS (test code = 323 U/L 34-122 H 3503388791) ALTv (test code = 25 U/L 5-50 1742-6) AST(SGOT) (test code = 39 U/L 13-40 4027119803) eGFR (test code = 53.2 mL/min/1.73m2 7653443642) LUIS ANGEL (test code = LUIS ANGEL) Association of Glomerular Filtration Rate (GFR) and Staging of Kidney Disease* + --+ --+ ------+| GFR (mL/min/1.73 m2) ?| With Kidney Damage ?| ?Without Kidney Damage+ --------+ --------+ +| ?>90 ?| ?Stage one ?| ? Normal ?+ ---+ ---+ -------+| ?60-89 ?| ?Stage two ?| ? Decreased GFR ? + --+ --+ ------+| ?30-59 ?| ?Stage three ?| ? Stage three ? + --+ --+ ------+| ?15-29 ?| ?Stage four ? | ? Stage four ?+ ---+ ---+ -------+| ?<15 (or dialysis) ? ?| ?Stage five ? | ? Stage five ?+ ---+ ---+ -------+ *Each stage assumes the associated GFR level has been in effect for at least three months. ?Stages 1 to 5, with or without kidney disease, indicate chronic kidney disease. Notes: Determination of stages one and two (with eGFR >59mL/min/1.73 m2) requires estimation of kidney damage for at least three months as defined by structural or functional abnormalities of the kidney, manifested by either:Pathological abnormalities or Markers of kidney damage (including abnormalities in the composition of the blood or urine or abnormalities in imaging tests). Lab Interpretation Abnormal (test code = 23830-5) [facility]. METABOLIC PANEL ([id number])2022-04-11 22:17:27 Test Item Value Reference Range Interpretation Comments NA (test code = 128 mmol/L 135-145 L 2303728946) K (test code = 4.3 mmol/L 3.5-5.0 2635706081) CL (test code = 97 mmol/L 98-108 L 0823622686) CO2 TOTAL (test code = 19 mmol/L 23-31 L 8031818074) AGAP (test code = 12 2-16 0200904736) BUN (test code = 19 mg/dL 7-23 8147229567) GLUCOSE (test code = 364 mg/dL 70-110 H 1276240471) CREATININE (test code = 1.34 mg/dL 0.60-1.25 H 6599928404) TOTAL BILI (test code = 0.8 mg/dL 0.1-1.9 3739557054) CALCIUM (test code = 9.1 mg/dL 8.6-10.6 6909705148) T PROTEIN (test code = 7.2 g/dL 6.3-8.2 8961017015) ALBUMIN (test code = 2.9 g/dL 3.5-5.0 L 5271346721) ALK PHOS (test code = 323 U/L 34-122 H 7755937979) ALTv (test code = 25 U/L 5-50 1742-6) AST(SGOT) (test code = 39 U/L 13-40 0088174817) eGFR (test code = 53.2 mL/min/1.73m2 4172877011) LUIS ANGEL (test code = LUIS ANGEL) Association of Glomerular Filtration Rate (GFR) and Staging of Kidney Disease* + --+ --+ ------+| GFR (mL/min/1.73 m2) ?| With Kidney Damage ?| ?Without Kidney Damage+ --------+ --------+ +| ?>90 ?| ?Stage one ?| ? Normal ?+ ---+ ---+ -------+| ?60-89 ?| ?Stage two ?| ? Decreased GFR ? + --+ --+ ------+| ?30-59 ?| ?Stage three ?| ? Stage three ? + --+ --+ ------+| ?15-29 ?| ?Stage four ? | ? Stage four ?+ ---+ ---+ -------+| ?<15 (or dialysis) ? ?| ?Stage five ? | ? Stage five ?+ ---+ ---+ -------+ *Each stage assumes the associated GFR level has been in effect for at least three months. ?Stages 1 to 5, with or without kidney disease, indicate chronic kidney disease. Notes: Determination of stages one and two (with eGFR >59mL/min/1.73 m2) requires estimation of kidney damage for at least three months as defined by structural or functional abnormalities of the kidney, manifested by either:Pathological abnormalities or Markers of kidney damage (including abnormalities in the composition of the blood or urine or abnormalities in imaging tests). Lab Interpretation Abnormal (test code = 47166-2) [facility] GLUCOSE (AUTOMATED)2022-04-05 16:35:51 Test Item Value Reference Range Interpretation Comments POCT GLU (test code = 6084528887) 159 mg/dL 70-110 H Lab Interpretation (test code = Abnormal 60005-7) [facility] GLUCOSE (AUTOMATED)2022-04-05 16:35:51 Test Item Value Reference Range Interpretation Comments POCT GLU (test code = 6415367362) 159 mg/dL 70-110 H Lab Interpretation (test code = Abnormal 28766-3) [facility] [id number] 07:45:00 Test Item Value Reference Range Interpretation Comments SODIUM (test code = 137 mEq/L 134-147 N NA) POTASSIUM (test code 3.4 mEq/L 3.4-5.0 N = K) CHLORIDE (test code 103 mEq/L 100-108 N = CL) CARBON DIOXIDE (test 25 mEq/l 21-33 N code = CO2) ANION GAP (test code 12 0-20 N = GAP) GLUCOSE (test code = 215 mg/dL 70-110 H GLU) BLOOD UREA NITROGEN 5 mg/dL 7-18 L (test code = BUN) GLOMERULAR 82.5 80-90 N The Glomerular FILTRATION RATE Filtration R ate is a (test code = GFR) calculated parameterbased on serum Creatinin e, patient age and sex. GFR valuesless than 60 mL/min/1.73 squ are meters are garima cative ofChronic Kidne y Disease. Values less than 15 mL/min/1.73squa re meters indicate Kidney failure. The calculation for GFR is based on the CK D-EPI (2020) calculat ion. This formulais race indifferent and is the recommended for prem for GFRby the [facility] for Ad[facility].The GFR will not calculate i f the sex is unknown or if thepatient's ag e is <18 years. CREATININE (test 1.0 mg/dL 0.6-1.3 N code = CREAT) TOTAL PROTEIN (test 7.4 g/dL 6.4-8.2 N code = PROT) ALBUMIN (test code = 2.30 g/dL 3.4-5.0 L ALB) CALCIUM (test code = 8.9 mg/dL 8.0-10.5 N CA) BILIRUBIN TOTAL 0.20 mg/dL 0.0-1.0 N (test code = BILT) SGOT/AST (test code 40 IUnit/L 15-37 H = AST) SGPT/ALT (test code 28 IUnit/L 30-65 L = ALT) ALKALINE PHOSPHATASE 214 IUnit/L 20-125 H TOTAL (test code = ALKP) CBC W/AUTO [id number] 07:28:00 Test Item Value Reference Range Interpretation Comments WHITE BLOOD CELL (test code = 13.9 x10 3/uL 4.5-11.0 H WBC) RED BLOOD CELL (test code = 3.50 x10 6/uL 4.00-5.60 L RBC) HEMOGLOBIN (test code = HGB) 9.4 g/dL 12.5-16.9 L HEMATOCRIT (test code = HCT) 31.0 % 37.5-50.7 L MEAN CELL VOLUME (test code = 88.6 fL 81.0-99.0 N MCV) MEAN CELL HGB (test code = MCH) 26.9 pg 27.0-33.0 L MEAN CELL HGB CONCETRATION 30.3 g/dL 33.0-37.0 L (test code = MCHC) RED CELL DISTRIBUTION WIDTH CV 17.2 % 11.5-14.5 H (test code = RDW) RED CELL DISTRIBUTION WIDTH SD 54.8 fL 37.0-54.0 H (test code = RDW-SD) PLATELET COUNT (test code = 636 x10 3/uL 150-400 H PLT) MEAN PLATELET VOLUME (test code 11.9 fL 7.0-9.0 H = MPV) NEUTROPHIL % (test code = NT%) 48.7 % 56.0-77.0 L IMMATURE GRANULOCYTE % (test 0.2 % 0.0-2.0 N code = IG%) LYMPHOCYTE % (test code = LY%) 35.6 % 14.0-32.0 H MONOCYTE % (test code = MO%) 11.2 % 4.8-9.0 H EOSINOPHIL % (test code = EO%) 3.9 % 0.3-3.7 H BASOPHIL % (test code = BA%) 0.4 % 0.0-2.0 N NUCLEATED RBC % (test code = 0.0 % 0-0 N NRBC%) NEUTROPHIL # (test code = NT#) 6.77 x10 3/uL 2.0-7.6 N IMMATURE GRANULOCYTE # (test 0.03 x10 3/uL 0.00-0.03 N code = IG#) LYMPHOCYTE # (test code = LY#) 4.95 x10 3/uL 1.0-3.8 H MONOCYTE # (test code = MO#) 1.56 x10 3/uL 0.1-0.8 H EOSINOPHIL # (test code = EO#) 0.54 x10 3/uL 0.0-0.2 H BASOPHIL # (test code = BA#) 0.06 x10 3/uL 0.0-0.2 N NUCLEATED RBC # (test code = 0.00 x10 3/uL 0.0-0.1 N NRBC#) MANUAL DIFF REQUIRED (test code NO = MDIFF) GLUCOSE [id number] 05:51:00 Test Item Value Reference Range Interpretation Comments GLUCOSE BEDSIDE (test 206 MG/DL 70-110 H Perfor med by certified code = GLUBED) carving machine operator at [facility] GLUCOSE [id number] 20:58:00 Test Item Value Reference Range Interpretation Comments GLUCOSE BEDSIDE (test 257 MG/DL 70-110 H Perfor med by certified code = GLUBED) carving machine operator at [facility] GLUCOSE [id number] 20:44:00 Test Item Value Reference Range Interpretation Comments GLUCOSE BEDSIDE (test 249 MG/DL 70-110 H Perfor med by certified code = GLUBED) carving machine operator at [facility] GLUCOSE [id number] 12:41:00 Test Item Value Reference Range Interpretation Comments GLUCOSE BEDSIDE (test 275 MG/DL 70-110 H Perfor med by certified code = GLUBED) carving machine operator at [facility] GLUCOSE [id number] 06:28:00 Test Item Value Reference Range Interpretation Comments GLUCOSE BEDSIDE (test 183 MG/DL 70-110 H Perfor med by certified code = GLUBED) carving machine operator at [facility] LACTIC ACID 2ND [id number] 01:52:00 Test Item Value Reference Range Interpretation Comments LACTIC ACID 2ND REPEAT (test code 1.6 mmol/L 0.4-1.9 N = LACT2) LACTIC ACID [id number] 23:33:00 Test Item Value Reference Range Interpretation Comments LACTIC ACID REPEAT (test code = 2.4 mmol/l 0.4-1.9 H LACTR) LACTIC [id number] 21:16:00 Test Item Value Reference Range Interpretation Comments LACTIC ACID (test code = LACT) 3.9 mmol/L 0.4-1.9 H CBC W/AUTO [id number] 20:59:00 Test Item Value Reference Range Interpretation Comments WHITE BLOOD CELL 18.3 x10 3/uL 4.5-11.0 H (test code = WBC) RED BLOOD CELL (test 3.77 x10 6/uL 4.00-5.60 L code = RBC) HEMOGLOBIN (test code 10.3 g/dL 12.5-16.9 L = HGB) HEMATOCRIT (test code 32.5 % 37.5-50.7 L = HCT) MEAN CELL VOLUME 86.2 fL 81.0-99.0 N (test code = MCV) MEAN CELL HGB (test 27.3 pg 27.0-33.0 N code = MCH) MEAN CELL HGB 31.7 g/dL 33.0-37.0 L CONCETRATION (test code = MCHC) RED CELL DISTRIBUTION 16.7 % 11.5-14.5 H WIDTH CV (test code = RDW) RED CELL DISTRIBUTION 52.1 fL 37.0-54.0 N WIDTH SD (test code = RDW-SD) PLATELET COUNT (test 689 x10 3/uL 150-400 H code = PLT) MEAN PLATELET VOLUME 11.3 fL 7.0-9.0 H (test code = MPV) NEUTROPHIL % (test 42.2 % 56.0-77.0 L code = NT%) LYMPHOCYTE % (test 48.0 % 14.0-32.0 H code = LY%) NEUTROPHIL # (test 7.73 x10 3/uL 2.0-7.6 H code = NT#) LYMPHOCYTE # (test 8.78 x10 3/uL 1.0-3.8 H code = LY#) MANUAL DIFF REQUIRED NO SLIDE R EVIEWED, (test code = MDIFF) CONSISTE NT WITH AUTO DIFF. IMMATURE GRANULOCYTE 0.4 % 0.0-2.0 N % (test code = IG%) MONOCYTE % (test code 5.7 % 4.8-9.0 N = MO%) EOSINOPHIL % (test 3.3 % 0.3-3.7 N code = EO%) BASOPHIL % (test code 0.4 % 0.0-2.0 N = BA%) NUCLEATED RBC % (test 0.0 % 0-0 N code = NRBC%) IMMATURE GRANULOCYTE 0.07 x10 3/uL 0.00-0.03 H # (test code = IG#) MONOCYTE # (test code 1.04 x10 3/uL 0.1-0.8 H = MO#) EOSINOPHIL # (test 0.60 x10 3/uL 0.0-0.2 H code = EO#) BASOPHIL # (test code 0.07 x10 3/uL 0.0-0.2 N = BA#) NUCLEATED RBC # (test 0.00 x10 3/uL 0.0-0.1 N code = NRBC#) B-TYPE NATRIURETIC [id number] 20:53:00 Test Item Value Reference Range Interpretation Comments B-TYPE NATRIURETIC PEPTIDE (test 25.0 PG/ML 0-100 N code = BNP) BASIC METABOLIC [id number] 20:41:00 Test Item Value Reference Range Interpretation Comments SODIUM (test code = 133 mEq/L 134-147 L NA) POTASSIUM (test code 3.2 mEq/L 3.4-5.0 L = K) CHLORIDE (test code 99 mEq/L 100-108 L = CL) CARBON DIOXIDE (test 22 mEq/l 21-33 N code = CO2) ANION GAP (test code 15 0-20 N = GAP) GLUCOSE (test code = 214 mg/dL 70-110 H GLU) BLOOD UREA NITROGEN 10 mg/dL 7-18 N (test code = BUN) GLOMERULAR 66.3 80-90 L The Glomerular FILTRATION RATE Filtration R ate is a (test code = GFR) calculated parameterbased on serum Creatinine, pat ient age and sex. GFR va luesless than 60 mL/min/ 1.73 square meters a re indicative ofCh ronic Kidney Disease. Values less than 15 mL/min/1.73squa re meters indicate Kidney failure. The calculation forGFR is based on the CKD-EPI (2020) calculat ion. This formulais race indifferent and is the recommended for prem for GFRby the [facility] on for Adults.The GFR will not calculate if th e sex is unknown or if thepatient's ag e is <18 years. CREATININE (test 1.2 mg/dL 0.6-1.3 N code = CREAT) CALCIUM (test code = 9.2 mg/dL 8.0-10.5 N CA) CREATINE KINASE (CK)2022-02-25 20:41:00 Test Item Value Reference Range Interpretation Comments CREATINE KINASE (CK) (test code = 31 Units/L 46-171 L CK) [id number] 20:41:00 Test Item Value Reference Range Interpretation Comments MAGNESIUM (test code = MAG) 1.82 mg/dL 1.80-2.40 N TROP-I HIGH [id number] 20:41:00 Test Item Value Reference Range Interpretation Comments TROP-I HIGH 5 ng/L 0-54 N CAUTION: Units of the SENSITIVITY (test current te st methodology code = TROPIHS) (ng/L) diffe rfrom the prior test methodolog y (ng/mL) by a factor of 1000. 99th Percentile Upper Reference Limit (URL): Females: 34 ng/LMales: 54 n g/L In order to distinguish acute elevations of h igh sensitivitytrop onin from other clinical conditions, the FourthUnive rsal Definition of M yocardial Infarction stre ssesclinical assessment and the demonstration o f a rise and/orfall in s erial troponin result s above the URL. These resu lts were obtained using [employer] IM TnI Hreagent. Results from di fferent methodologies s hould not becompared to o ne another as quantitative results and URLs mayvary by method. GLUCOSE [id number] 20:14:00 Test Item Value Reference Range Interpretation Comments GLUCOSE BEDSIDE (test 199 MG/DL 70-110 H Perfor med by certified code = GLUBED) carving machine operator at [facility] GLUCOSE [id number] 17:33:00 Test Item Value Reference Range Interpretation Comments GLUCOSE BEDSIDE (test 202 MG/DL 70-110 H Perfor med by certified code = GLUBED) carving machine operator at [facility] GLUCOSE [id number] 12:39:00 Test Item Value Reference Range Interpretation Comments GLUCOSE BEDSIDE (test 275 MG/DL 70-110 H Perfor med by certified code = GLUBED) carving machine operator at [facility] GLUCOSE [id number] 07:51:00 Test Item Value Reference Range Interpretation Comments GLUCOSE BEDSIDE (test 233 MG/DL 70-110 H Perfor med by certified code = GLUBED) carving machine operator at [facility] - XR CHEST 1 [id number] 00:00:00 [facility] PEDRO MCGREGOR : 1955 Sex: M FAX: Rohit Soria Forestdale: St: REG FAX: Hayden Brown [phone] Name: PEDRO MCGREGOR [facility] : 1955ge/S: 66/M [address] [place] [address] Bl Unit #: [id number] Loc: [place] [address] Phys: Rohit Perkins MD Acct: [id number] Dis Date: Status: [facility] PHONE #: [phone] Exam Date: 02/25/20222000 FAX #: [phone] Reason: Syncope EXAMS: CPT CODE: [id number] XR CHEST 1 V 15670 PROCEDURE INFORMATION: Exam: XR Chest Exam date and time: 02/25/2022 7:58 PM Age: 66 years old Clinical indication: Other: Syncope TECHNIQUE: Imaging protocol: Radiologic exam of the chest. Views: 1 view. COMPARISON: CRXR CHEST 1V 12/30/2021 6:16 PM FINDINGS: Tubes, catheters and devices: Right upper extremity PICC line tip is just within the right atrium. Lungs: Mild decreased lung volumes. No consolidation. Pleural spaces: Unremarkable. No pleural effusion. No pneumothorax. Heart/Mediastinum: Cardiomegaly. Previous midline sternotomy.. Vasculature is unremarkable. Bones/joints: Unremarkable. IMPRESSION: 1. No acute cardiopulmonary findings. 2. Cardiomegaly. 3. Right upper extremity PICC line tip is within the right atrium. at 2036 Reported and signed by: Ariel Lim M.D. CC: Rohit Perkins MD; [facility] Brayan LENZ Technologist: Chelsea Lira RT(R) Trnscrd Date/Time/By: 02/25/2022 (2036) : By: Medardo Orig Print D/T: S: 02/25/2022 (2036) PAGE 1 Signed ReportGLUCOSE [id number] 19:33:00 Test Item Value Reference Range Interpretation Comments GLUCOSE BEDSIDE (test 143 MG/DL 70-110 H Perfor med by certified code = GLUBED) carving machine operator at [facility] GLUCOSE [id number] 17:28:00 Test Item Value Reference Range Interpretation Comments GLUCOSE BEDSIDE (test 208 MG/DL 70-110 H Perfor med by certified code = GLUBED) carving machine operator at [facility] VANCOMYCIN [id number] 16:36:00 Test Item Value Reference Range Interpretation Comments VANCOMYCIN TROUGH 14.2 mcg/mL 10.0-20.0 N 10-15 mcg/ mL - (test code = VANCT) Cellulit is, Urinary Tract Infection . 15-20 mcg/mL - Bacteremia, Infective Endocarditis, Meningitis, Osteomyelitis, Pneumonia, Mckenzie re Skin/Soft-Tissu e Infection, Spin al Abscess. [id number] 16:35:00 Test Item Value Reference Range Interpretation Comments CREATININE (test code = CREAT) 1.1 mg/dL 0.6-1.3 N GLUCOSE [id number] 12:03:00 Test Item Value Reference Range Interpretation Comments GLUCOSE BEDSIDE (test 291 MG/DL 70-110 H Perfor med by certified code = GLUBED) carving machine operator at [facility] GLUCOSE [id number] 09:09:00 Test Item Value Reference Range Interpretation Comments GLUCOSE BEDSIDE (test 259 MG/DL 70-110 H Perfor med by certified code = GLUBED) carving machine operator at [facility] GLUCOSE [id number] 20:15:00 Test Item Value Reference Range Interpretation Comments GLUCOSE BEDSIDE (test 183 MG/DL 70-110 H Perfor med by certified code = GLUBED) carving machine operator at [facility] GLUCOSE [id number] 17:09:00 Test Item Value Reference Range Interpretation Comments GLUCOSE BEDSIDE (test 186 MG/DL 70-110 H Perfor med by certified code = GLUBED) carving machine operator at [facility] GLUCOSE [id number] 13:14:00 Test Item Value Reference Range Interpretation Comments GLUCOSE BEDSIDE (test 249 MG/DL 70-110 H Perfor med by certified code = GLUBED) carving machine operator at [facility] GLUCOSE [id number] 08:41:00 Test Item Value Reference Range Interpretation Comments GLUCOSE BEDSIDE (test 224 MG/DL 70-110 H Perfor med by certified code = GLUBED) carving machine operator at [facility] GLUCOSE [id number] 20:12:00 Test Item Value Reference Range Interpretation Comments GLUCOSE BEDSIDE (test 202 MG/DL 70-110 H Perfor med by certified code = GLUBED) carving machine operator at [facility] GLUCOSE [id number] 16:46:00 Test Item Value Reference Range Interpretation Comments GLUCOSE BEDSIDE (test 140 MG/DL 70-110 H Perfor med by certified code = GLUBED) carving machine operator at [facility] GLUCOSE [id number] 13:12:00 Test Item Value Reference Range Interpretation Comments GLUCOSE BEDSIDE (test 236 MG/DL 70-110 H Perfor med by certified code = GLUBED) carving machine operator at [facility] GLUCOSE [id number] 08:49:00 Test Item Value Reference Range Interpretation Comments GLUCOSE BEDSIDE (test 241 MG/DL 70-110 H Perfor med by certified code = GLUBED) carving machine operator at [facility] GLUCOSE [id number] 19:43:00 Test Item Value Reference Range Interpretation Comments GLUCOSE BEDSIDE (test 183 MG/DL 70-110 H Perfor med by certified code = GLUBED) carving machine operator at [facility] GLUCOSE [id number] 17:48:00 Test Item Value Reference Range Interpretation Comments GLUCOSE BEDSIDE (test 178 MG/DL 70-110 H Perfor med by certified code = GLUBED) carving machine operator at [facility] GLUCOSE [id number] 12:56:00 Test Item Value Reference Range Interpretation Comments GLUCOSE BEDSIDE (test 227 MG/DL 70-110 H Perfor med by certified code = GLUBED) carving machine operator at [facility] [id number] 12:28:00 Test Item Value Reference Range Interpretation Comments SURGICAL (test code = SR) R UN DATE: 02/21/22 [place] - [facility] PAGE 1 RUN TIME: 1228 Specimen Inquiry RUN USER: INTERFACE P ATIENT: PEDRO MCGREGOR LOC: BebetoCVN1 U #: [id number] AGE/SX: 66/M ROOM: [facility] RE02/11/22REG DR: Chelo Ward MD : 53 BED: 1 DIS: STATUS: ADM IN TLOC: SPEC #: [id number] RECD: 02/18/22-1001 STATUS: STEVEN RELudy #: [id number] TRINITY: 02/17/22- SUBM DR: Faby Wharton DPM ENTERED: 02/18/22-1010 SP TYPE: SURGICAL OTHR DR: Self Referred Lidia Tran MD, Jawdat DPM Issa, Husam MD [facility] DOORDERED: [id number], [id number], ANATOMIC SPEC COPIES TO: Self Referred Lidia Tran MD [address] [place] [address] Faby Wharton DPM [address] [address] Orlin Charles MD [address] [place] [address] [facility] [address] [place] [address] PROCEDURES: 46052 (02/21/22-1209) 65533 (02/18/22-1010) TISSUES: A. BONE BIOPSY (INCIDENT TO KYPHOPLASTY) - LEFT ANKLE TALUS BX CLINICAL HISTORY SAME CONTINUED ON NEXT PAGE R UN DATE: 02/21/22 [place] - LAB PAGE 2 RUN TIME: 1228 Specimen Inquiry RUN USER: INTERFACE S PEC #: [id number] PATIENT: DELORESPEDRO #[id number] (Continued) FINAL DIAGNOSIS Bone, left ankle talus, biopsy: Fragments of bone with acute osteomyelitis and granulationtissue. GROSS DESCRIPTION Received in formalin labeled left foot talus ankle biopsy is a 2.2 cm aggregate of bone andsoft tissue submitted in 1 cassette for decalcification. Technical component performed at [facility],[address] [place] [address], [place] [address] Unless gross only, the diagnosis is based upon microscopic examination.Immunohistochemistr y: This test was developed and its performance characteristicsdetermined by this laboratory. It has not been approved nor does it need approvalby the [place] FDA. Appropriate positive and negative controls are reviewed and judgedto be acceptable. This laboratory is certified under the Clinical Laboratory ImprovementAmendments (CLIA-88) as qualified to perform high complexity clinical laboratory testing. MICROSCOPIC DESCRIPTION Sections of the left ankle talus biopsy reveal fragments of granulation tissue and bone,there is acute inflammation involving the bone consistent with acute osteomyelitis. CLINICAL INFORMATION OSTEOMYLEITIS LEFT ANKLE ---- Signed _ Zaid Estrella 02/21/22 1228 END OF REPORT GLUCOSE [id number] 08:33:00 Test Item Value Reference Range Interpretation Comments GLUCOSE BEDSIDE (test 280 MG/DL 70-110 H Perfor med by certified code = GLUBED) carving machine operator at [facility] BLOOD UREA [id number] 07:50:00 Test Item Value Reference Range Interpretation Comments BLOOD UREA NITROGEN (test code = 11 mg/dL 7-18 N BUN) [id number] 07:50:00 Test Item Value Reference Range Interpretation Comments CREATININE (test code = CREAT) 1.1 mg/dL 0.6-1.3 N VANCOMYCIN [id number] 22:37:00 Test Item Value Reference Range Interpretation Comments VANCOMYCIN TROUGH 17.9 mcg/mL 10.0-20.0 N 10-15 mcg/ mL - (test code = VANCT) Cellulit is, Urinary Tract Infection . 15-20 mcg/mL - Bacteremia, Infective Endocarditis, Meningitis, Osteomyelitis, Pneumonia, Mckenzie re Skin/Soft-Tissu e Infection, Spin al Abscess. GLUCOSE [id number] 19:48:00 Test Item Value Reference Range Interpretation Comments GLUCOSE BEDSIDE (test 223 MG/DL 70-110 H Perfor med by certified code = GLUBED) carving machine operator at [facility] GLUCOSE [id number] 17:01:00 Test Item Value Reference Range Interpretation Comments GLUCOSE BEDSIDE (test 206 MG/DL 70-110 H Perfor med by certified code = GLUBED) carving machine operator at [facility] GLUCOSE [id number] 12:28:00 Test Item Value Reference Range Interpretation Comments GLUCOSE BEDSIDE (test 234 MG/DL 70-110 H Perfor med by certified code = GLUBED) carving machine operator at [facility] GLUCOSE [id number] 08:07:00 Test Item Value Reference Range Interpretation Comments GLUCOSE BEDSIDE (test 196 MG/DL 70-110 H Perfor med by certified code = GLUBED) carving machine operator at [facility] GLUCOSE [id number] 20:00:00 Test Item Value Reference Range Interpretation Comments GLUCOSE BEDSIDE (test 106 MG/DL 70-110 N Perfor med by certified code = GLUBED) carving machine operator at [facility] GLUCOSE [id number] 15:57:00 Test Item Value Reference Range Interpretation Comments GLUCOSE BEDSIDE (test 159 MG/DL 70-110 H Perfor med by certified code = GLUBED) carving machine operator at [facility] GLUCOSE [id number] 11:41:00 Test Item Value Reference Range Interpretation Comments GLUCOSE BEDSIDE (test 224 MG/DL 70-110 H Perfor med by certified code = GLUBED) carving machine operator at [facility] GLUCOSE [id number] 07:12:00 Test Item Value Reference Range Interpretation Comments GLUCOSE BEDSIDE (test 266 MG/DL 70-110 H Perfor med by certified code = GLUBED) carving machine operator at [facility] VANCOMYCIN [id number] 21:00:00 Test Item Value Reference Range Interpretation Comments VANCOMYCIN TROUGH 21.6 mcg/mL 10.0-20.0 HH 10-15 mcg/ mL - (test code = VANCT) Cellulit is, Urinary Tract Infection . 15-20 mcg/mL - Bacteremia, Infective Endocarditis, Meningitis, Osteomyelitis, Pneumonia, Mckenzie re Skin/Soft-Tissu e Infection, Spin al Abscess. GLUCOSE [id number] 20:19:00 Test Item Value Reference Range Interpretation Comments GLUCOSE BEDSIDE (test 143 MG/DL 70-110 H Perfor med by certified code = GLUBED) carving machine operator at [facility] GLUCOSE [id number] 16:10:00 Test Item Value Reference Range Interpretation Comments GLUCOSE BEDSIDE (test 191 MG/DL 70-110 H Perfor med by certified code = GLUBED) carving machine operator at [facility] GLUCOSE [id number] 13:26:00 Test Item Value Reference Range Interpretation Comments GLUCOSE BEDSIDE (test 254 MG/DL 70-110 H Perfor med by certified code = GLUBED) carving machine operator at [facility] VANCOMYCIN [id number] 12:27:00 Test Item Value Reference Range Interpretation Comments VANCOMYCIN PEAK (test code = 30.3 MCG/ML 30-40 N VANCP) COMMENTS: COLLECT 1 HOUR AFTER INFUSION FINISHESGLUCOSE [id number] 08:55:00 Test Item Value Reference Range Interpretation Comments GLUCOSE BEDSIDE (test 310 MG/DL 70-110 H Perfor med by certified code = GLUBED) carving machine operator at [facility] GLUCOSE [id number] 19:56:00 Test Item Value Reference Range Interpretation Comments GLUCOSE BEDSIDE (test 340 MG/DL 70-110 H Perfor med by certified code = GLUBED) carving machine operator at [facility] GLUCOSE [id number] 17:52:00 Test Item Value Reference Range Interpretation Comments GLUCOSE BEDSIDE (test 324 MG/DL 70-110 H Perfor med by certified code = GLUBED) carving machine operator at [facility] GLUCOSE [id number] 16:59:00 Test Item Value Reference Range Interpretation Comments GLUCOSE BEDSIDE (test 292 MG/DL 70-110 H Perfor med by certified code = GLUBED) carving machine operator at [facility] GLUCOSE [id number] 15:07:00 Test Item Value Reference Range Interpretation Comments GLUCOSE BEDSIDE (test 255 MG/DL 70-110 H Perfor med by certified code = GLUBED) carving machine operator at [facility] GLUCOSE [id number] 11:17:00 Test Item Value Reference Range Interpretation Comments GLUCOSE BEDSIDE (test 265 MG/DL 70-110 H Perfor med by certified code = GLUBED) carving machine operator at [facility] COMPREHENSIVE METABOLIC [id number] 08:11:00 Test Item Value Reference Range Interpretation Comments SODIUM (test code = 137 mEq/L 134-147 N NA) POTASSIUM (test code 3.3 mEq/L 3.4-5.0 L = K) CHLORIDE (test code 100 mEq/L 100-108 N = CL) CARBON DIOXIDE (test 27 mEq/l 21-33 N code = CO2) ANION GAP (test code 14 0-20 N = GAP) GLUCOSE (test code = 244 mg/dL 70-110 H GLU) BLOOD UREA NITROGEN 10 mg/dL 7-18 N (test code = BUN) GLOMERULAR 82.5 80-90 N The Glomerular FILTRATION RATE Filtration R ate is a (test code = GFR) calculated parameterbased on serum Creatinin e, patient age and sex. GFR valuesless than 60 mL/min/1.73 squ are meters are garima cative ofChronic Kidne y Disease. Values less than 15 mL/min/1.73squa re meters indicate Kidney failure. The calculation for GFR is based on the CK D-EPI (2020) calculat ion. This formulais race indifferent and is the recommended for prem for GFRby the atunc health Kidney Foundati on for Adults.The GFR will not calculate i f the sex is unknown or if thepatient's ag e is <18 years. CREATININE (test 1.0 mg/dL 0.6-1.3 N code = CREAT) TOTAL PROTEIN (test 7.5 g/dL 6.4-8.2 N code = PROT) ALBUMIN (test code = 2.20 g/dL 3.4-5.0 L ALB) CALCIUM (test code = 9.4 mg/dL 8.0-10.5 N CA) BILIRUBIN TOTAL 0.20 mg/dL 0.0-1.0 N (test code = BILT) SGOT/AST (test code 24 IUnit/L 15-37 N = AST) SGPT/ALT (test code 13 IUnit/L 30-65 L = ALT) ALKALINE PHOSPHATASE 183 IUnit/L 20-125 H TOTAL (test code = ALKP) CBC W/AUTO [id number] 08:07:00 Test Item Value Reference Range Interpretation Comments WHITE BLOOD CELL (test code = 13.1 x10 3/uL 4.5-11.0 H WBC) RED BLOOD CELL (test code = 3.71 x10 6/uL 4.00-5.60 L RBC) HEMOGLOBIN (test code = HGB) 10.1 g/dL 12.5-16.9 L HEMATOCRIT (test code = HCT) 31.9 % 37.5-50.7 L MEAN CELL VOLUME (test code = 86.0 fL 81.0-99.0 N MCV) MEAN CELL HGB (test code = MCH) 27.2 pg 27.0-33.0 N MEAN CELL HGB CONCETRATION 31.7 g/dL 33.0-37.0 L (test code = MCHC) RED CELL DISTRIBUTION WIDTH CV 16.2 % 11.5-14.5 H (test code = RDW) RED CELL DISTRIBUTION WIDTH SD 50.8 fL 37.0-54.0 N (test code = RDW-SD) PLATELET COUNT (test code = 587 x10 3/uL 150-400 H PLT) MEAN PLATELET VOLUME (test code 11.9 fL 7.0-9.0 H = MPV) NEUTROPHIL % (test code = NT%) 47.2 % 56.0-77.0 L IMMATURE GRANULOCYTE % (test 0.3 % 0.0-2.0 N code = IG%) LYMPHOCYTE % (test code = LY%) 37.9 % 14.0-32.0 H MONOCYTE % (test code = MO%) 10.0 % 4.8-9.0 H EOSINOPHIL % (test code = EO%) 4.1 % 0.3-3.7 H BASOPHIL % (test code = BA%) 0.5 % 0.0-2.0 N NUCLEATED RBC % (test code = 0.0 % 0-0 N NRBC%) NEUTROPHIL # (test code = NT#) 6.18 x10 3/uL 2.0-7.6 N IMMATURE GRANULOCYTE # (test 0.04 x10 3/uL 0.00-0.03 H code = IG#) LYMPHOCYTE # (test code = LY#) 4.94 x10 3/uL 1.0-3.8 H MONOCYTE # (test code = MO#) 1.30 x10 3/uL 0.1-0.8 H EOSINOPHIL # (test code = EO#) 0.53 x10 3/uL 0.0-0.2 H BASOPHIL # (test code = BA#) 0.06 x10 3/uL 0.0-0.2 N NUCLEATED RBC # (test code = 0.00 x10 3/uL 0.0-0.1 N NRBC#) MANUAL DIFF REQUIRED (test code NO = MDIFF) SED RATE [id number] 08:07:00 Test Item Value Reference Range Interpretation Comments SED RATE WESTERGREN (test code = 97 mm/hr 0-15 H SEDW) GLUCOSE [id number] 07:47:00 Test Item Value Reference Range Interpretation Comments GLUCOSE BEDSIDE (test 247 MG/DL 70-110 H Perfor med by certified code = GLUBED) carving machine operator at [facility] C REACTIVE [id number] 07:41:00 Test Item Value Reference Range Interpretation Comments C REACTIVE PROTEIN (test code = 103.0 mg/L <10.0 H CRP) COVID 19 Asymptomatic IH [id number] 06:04:00 Test Item Value Reference Range Interpretation Comments COVID 19 Asymptomatic Negative Negative A nega tive result is IH AG (test code = presumpti ve and should COVNONPUIAG) be confirmedwit h an FDA authorized mole cular assay, if neces mitchell forpatient blu gement.A positive result does not rule out co-inf ections withother patho gens.This test detects nirali th viable (live) and non-viable,SARS -CoV, and SARS-CoV-2. Shweta t performance dep ends on theamount of vi bisi (antigen) in th e sample.This shweta t has not been FDA cleare d or approved; the t est hasbeen authori zed by FDA under an Em ergency Use Authorizati on(EUA) for use by labo ratories certified under the CLIA thatmeet the requirements to perform moderate, high or waivedcomplexit y tests. GLUCOSE [id number] 21:51:00 Test Item Value Reference Range Interpretation Comments GLUCOSE BEDSIDE (test 197 MG/DL 70-110 H Perfor med by certified code = GLUBED) carving machine operator at [facility] GLUCOSE [id number] 16:29:00 Test Item Value Reference Range Interpretation Comments GLUCOSE BEDSIDE (test 191 MG/DL 70-110 H Perfor med by certified code = GLUBED) carving machine operator at [facility] GLUCOSE [id number] 13:50:00 Test Item Value Reference Range Interpretation Comments GLUCOSE BEDSIDE (test 271 MG/DL 70-110 H Perfor med by certified code = GLUBED) carving machine operator at [facility] VANCOMYCIN [id number] 12:58:00 Test Item Value Reference Range Interpretation Comments VANCOMYCIN TROUGH 21.5 mcg/mL 10.0-20.0 HH 10-15 mcg/ mL - (test code = VANCT) Cellulit is, Urinary Tract Infection . 15-20 mcg/mL - Bacteremia, Infective Endocarditis, Meningitis, Osteomyelitis, Pneumonia, Mckenzie re Skin/Soft-Tissu e Infection, Spin al Abscess. GLUCOSE [id number] 09:54:00 Test Item Value Reference Range Interpretation Comments GLUCOSE BEDSIDE (test 249 MG/DL 70-110 H Perfor med by certified code = GLUBED) carving machine operator at [facility] VANCOMYCIN [id number] 05:14:00 Test Item Value Reference Range Interpretation Comments VANCOMYCIN TROUGH 34.1 mcg/mL 10.0-20.0 HH 10-15 mcg/ mL - (test code = VANCT) Cellulit is, Urinary Tract Infection . 15-20 mcg/mL - Bacteremia, Infective Endocarditis, Meningitis, Osteomyelitis, Pneumonia, Mckenzie re Skin/Soft-Tissu e Infection, Spin al Abscess. GLUCOSE [id number] 20:37:00 Test Item Value Reference Range Interpretation Comments GLUCOSE BEDSIDE (test 201 MG/DL 70-110 H Perfor med by certified code = GLUBED) carving machine operator at [facility] GLUCOSE [id number] 17:00:00 Test Item Value Reference Range Interpretation Comments GLUCOSE BEDSIDE (test 151 MG/DL 70-110 H Perfor med by certified code = GLUBED) carving machine operator at [facility] GLUCOSE [id number] 12:57:00 Test Item Value Reference Range Interpretation Comments GLUCOSE BEDSIDE (test 207 MG/DL 70-110 H Perfor med by certified code = GLUBED) carving machine operator at [facility] GLUCOSE [id number] 08:21:00 Test Item Value Reference Range Interpretation Comments GLUCOSE BEDSIDE (test 217 MG/DL 70-110 H Perfor med by certified code = GLUBED) carving machine operator at [facility] GLUCOSE [id number] 22:21:00 Test Item Value Reference Range Interpretation Comments GLUCOSE BEDSIDE (test 196 MG/DL 70-110 H Perfor med by certified code = GLUBED) carving machine operator at [facility] GLUCOSE [id number] 17:56:00 Test Item Value Reference Range Interpretation Comments GLUCOSE BEDSIDE (test 166 MG/DL 70-110 H Perfor med by certified code = GLUBED) carving machine operator at [facility] GLUCOSE [id number] 11:38:00 Test Item Value Reference Range Interpretation Comments GLUCOSE BEDSIDE (test 275 MG/DL 70-110 H Perfor med by certified code = GLUBED) carving machine operator at [facility] GLUCOSE [id number] 08:06:00 Test Item Value Reference Range Interpretation Comments GLUCOSE BEDSIDE (test 208 MG/DL 70-110 H Perfor med by certified code = GLUBED) carving machine operator at [facility] GLUCOSE [id number] 20:07:00 Test Item Value Reference Range Interpretation Comments GLUCOSE BEDSIDE (test 106 MG/DL 70-110 N Perfor med by certified code = GLUBED) carving machine operator at [facility] GLUCOSE [id number] 18:34:00 Test Item Value Reference Range Interpretation Comments GLUCOSE BEDSIDE (test 137 MG/DL 70-110 H Perfor med by certified code = GLUBED) carving machine operator at [facility] GLUCOSE [id number] 12:26:00 Test Item Value Reference Range Interpretation Comments GLUCOSE BEDSIDE (test 201 MG/DL 70-110 H Perfor med by certified code = GLUBED) carving machine operator at [facility] GLUCOSE [id number] 08:40:00 Test Item Value Reference Range Interpretation Comments GLUCOSE BEDSIDE (test 186 MG/DL 70-110 H Perfor med by certified code = GLUBED) carving machine operator at [facility] GLUCOSE [id number] 20:15:00 Test Item Value Reference Range Interpretation Comments GLUCOSE BEDSIDE (test 120 MG/DL 70-110 H Perfor med by certified code = GLUBED) carving machine operator at [facility] GLUCOSE [id number] 17:08:00 Test Item Value Reference Range Interpretation Comments GLUCOSE BEDSIDE (test 175 MG/DL 70-110 H Perfor med by certified code = GLUBED) carving machine operator at [facility] GLUCOSE [id number] 12:47:00 Test Item Value Reference Range Interpretation Comments GLUCOSE BEDSIDE (test 224 MG/DL 70-110 H Perfor med by certified code = GLUBED) carving machine operator at [facility] GLUCOSE [id number] 08:27:00 Test Item Value Reference Range Interpretation Comments GLUCOSE BEDSIDE (test 199 MG/DL 70-110 H Perfor med by certified code = GLUBED) carving machine operator at [facility] GLUCOSE [id number] 20:59:00 Test Item Value Reference Range Interpretation Comments GLUCOSE BEDSIDE (test 93 MG/DL 70-110 N Perfor med by certified code = GLUBED) carving machine operator at [facility] GLUCOSE [id number] 20:59:00 Test Item Value Reference Range Interpretation Comments GLUCOSE BEDSIDE (test 66 MG/DL 70-110 L Perfor med by certified code = GLUBED) carving machine operator at [facility] GLUCOSE [id number] 20:31:00 Test Item Value Reference Range Interpretation Comments GLUCOSE BEDSIDE (test 107 MG/DL 70-110 N Perfor med by certified code = GLUBED) carving machine operator at [facility] GLUCOSE [id number] 12:03:00 Test Item Value Reference Range Interpretation Comments GLUCOSE BEDSIDE (test 260 MG/DL 70-110 H Perfor med by certified code = GLUBED) carving machine operator at [facility] GLUCOSE [id number] 08:13:00 Test Item Value Reference Range Interpretation Comments GLUCOSE BEDSIDE (test 219 MG/DL 70-110 H Perfor med by certified code = GLUBED) carving machine operator at [facility] BASIC METABOLIC [id number] 04:34:00 Test Item Value Reference Range Interpretation Comments SODIUM (test code = 137 mEq/L 134-147 N NA) POTASSIUM (test code 3.4 mEq/L 3.4-5.0 N = K) CHLORIDE (test code 102 mEq/L 100-108 N = CL) CARBON DIOXIDE (test 25 mEq/l 21-33 N code = CO2) ANION GAP (test code 14 0-20 N = GAP) GLUCOSE (test code = 193 mg/dL 70-110 H GLU) BLOOD UREA NITROGEN 8 mg/dL 7-18 (test code = BUN) GLOMERULAR 82.5 80-90 N The Glomerular FILTRATION RATE Filtration R ate is a (test code = GFR) calculated parameterbased on serum Creatinine, pat ient age and sex. GFR va luesless than 60 mL/min/ 1.73 square meters a re indicative ofCh ronic Kidney Disease. Values less than 15 mL/min/1.73squa re meters indicate Kidney failure. The calculation forGFR is based on the CKD-EPI (2020) calculat ion. This formulais race indifferent and is the recommended for prem for GFRby the [facility] on for Ad[facility].The GFR will not calculate if th e sex is unknown or if thepatient's ag e is <18 years. CREATININE (test 1.0 mg/dL 0.6-1.3 N code = CREAT) CALCIUM (test code = 9.1 mg/dL 8.0-10.5 N CA) [id number] 04:34:00 Test Item Value Reference Range Interpretation Comments PHOSPHOROUS (test code = PHOS) 3.6 MG/DL 2.5-4.9 N [id number] 04:34:00 Test Item Value Reference Range Interpretation Comments MAGNESIUM (test code = MAG) 1.75 mg/dL 1.80-2.40 L CBC W/AUTO [id number] 04:12:00 Test Item Value Reference Range Interpretation Comments WHITE BLOOD CELL (test code = 12.4 x10 3/uL 4.5-11.0 H WBC) RED BLOOD CELL (test code = 3.49 x10 6/uL 4.00-5.60 L RBC) HEMOGLOBIN (test code = HGB) 9.4 g/dL 12.5-16.9 L HEMATOCRIT (test code = HCT) 30.3 % 37.5-50.7 L MEAN CELL VOLUME (test code = 86.8 fL 81.0-99.0 N MCV) MEAN CELL HGB (test code = MCH) 26.9 pg 27.0-33.0 L MEAN CELL HGB CONCETRATION 31.0 g/dL 33.0-37.0 L (test code = MCHC) RED CELL DISTRIBUTION WIDTH CV 15.7 % 11.5-14.5 H (test code = RDW) RED CELL DISTRIBUTION WIDTH SD 49.1 fL 37.0-54.0 N (test code = RDW-SD) PLATELET COUNT (test code = 567 x10 3/uL 150-400 H PLT) MEAN PLATELET VOLUME (test code 11.0 fL 7.0-9.0 H = MPV) NEUTROPHIL % (test code = NT%) 50.6 % 56.0-77.0 L IMMATURE GRANULOCYTE % (test 0.3 % 0.0-2.0 N code = IG%) LYMPHOCYTE % (test code = LY%) 33.4 % 14.0-32.0 H MONOCYTE % (test code = MO%) 9.8 % 4.8-9.0 H EOSINOPHIL % (test code = EO%) 5.3 % 0.3-3.7 H BASOPHIL % (test code = BA%) 0.6 % 0.0-2.0 N NUCLEATED RBC % (test code = 0.0 % 0-0 N NRBC%) NEUTROPHIL # (test code = NT#) 6.27 x10 3/uL 2.0-7.6 N IMMATURE GRANULOCYTE # (test 0.04 x10 3/uL 0.00-0.03 H code = IG#) LYMPHOCYTE # (test code = LY#) 4.13 x10 3/uL 1.0-3.8 H MONOCYTE # (test code = MO#) 1.21 x10 3/uL 0.1-0.8 H EOSINOPHIL # (test code = EO#) 0.65 x10 3/uL 0.0-0.2 H BASOPHIL # (test code = BA#) 0.07 x10 3/uL 0.0-0.2 N NUCLEATED RBC # (test code = 0.00 x10 3/uL 0.0-0.1 N NRBC#) MANUAL DIFF REQUIRED (test code NO = MDIFF) GLUCOSE [id number] 21:11:00 Test Item Value Reference Range Interpretation Comments GLUCOSE BEDSIDE (test 176 MG/DL 70-110 H Perfor med by certified code = GLUBED) carving machine operator at [facility] GLUCOSE [id number] 16:32:00 Test Item Value Reference Range Interpretation Comments GLUCOSE BEDSIDE (test 216 MG/DL 70-110 H Perfor med by certified code = GLUBED) carving machine operator at [facility] GLUCOSE [id number] 11:59:00 Test Item Value Reference Range Interpretation Comments GLUCOSE BEDSIDE (test 220 MG/DL 70-110 H Perfor med by certified code = GLUBED) carving machine operator at [facility] GLUCOSE [id number] 08:48:00 Test Item Value Reference Range Interpretation Comments GLUCOSE BEDSIDE (test 184 MG/DL 70-110 H Perfor med by certified code = GLUBED) carving machine operator at [facility] BASIC METABOLIC [id number] 07:30:00 Test Item Value Reference Range Interpretation Comments SODIUM (test code = 140 mEq/L 134-147 N NA) POTASSIUM (test code 3.6 mEq/L 3.4-5.0 N = K) CHLORIDE (test code 105 mEq/L 100-108 = CL) CARBON DIOXIDE (test 25 mEq/l 21-33 N code = CO2) ANION GAP (test code 14 0-20 N = GAP) GLUCOSE (test code = 167 mg/dL 70-110 H GLU) BLOOD UREA NITROGEN 11 mg/dL 7-18 N (test code = BUN) GLOMERULAR 82.5 80-90 N The Glomerular FILTRATION RATE Filtration R ate is a (test code = GFR) calculated parameterbased on serum Creatinine, pat ient age and sex. GFR va luesless than 60 mL/min/ 1.73 square meters a re indicative ofCh ronic Kidney Disease. Values less than 15 mL/min/1.73squa re meters indicate Kidney failure. The calculation forGFR is based on the CKD-EPI (2020) calculat ion. This formulais race indifferent and is the recommended for prem for GFRby the [facility] on for Adults.The GFR will not calculate if th e sex is unknown or if thepatient's ag e is <18 years. CREATININE (test 1.0 mg/dL 0.6-1.3 N code = CREAT) CALCIUM (test code = 9.5 mg/dL 8.0-10.5 N CA) [id number] 07:30:00 Test Item Value Reference Range Interpretation Comments PHOSPHOROUS (test code = PHOS) 3.6 MG/DL 2.5-4.9 N [id number] 07:30:00 Test Item Value Reference Range Interpretation Comments MAGNESIUM (test code = MAG) 1.47 mg/dL 1.80-2.40 L CBC W/AUTO [id number] 06:49:00 Test Item Value Reference Range Interpretation Comments WHITE BLOOD CELL (test code = 11.6 x10 3/uL 4.5-11.0 H WBC) RED BLOOD CELL (test code = 3.61 x10 6/uL 4.00-5.60 L RBC) HEMOGLOBIN (test code = HGB) 9.9 g/dL 12.5-16.9 L HEMATOCRIT (test code = HCT) 31.8 % 37.5-50.7 L MEAN CELL VOLUME (test code = 88.1 fL 81.0-99.0 N MCV) MEAN CELL HGB (test code = MCH) 27.4 pg 27.0-33.0 N MEAN CELL HGB CONCETRATION 31.1 g/dL 33.0-37.0 L (test code = MCHC) RED CELL DISTRIBUTION WIDTH CV 15.7 % 11.5-14.5 H (test code = RDW) RED CELL DISTRIBUTION WIDTH SD 50.4 fL 37.0-54.0 N (test code = RDW-SD) PLATELET COUNT (test code = 567 x10 3/uL 150-400 H PLT) MEAN PLATELET VOLUME (test code 10.9 fL 7.0-9.0 H = MPV) NEUTROPHIL % (test code = NT%) 37.7 % 56.0-77.0 L IMMATURE GRANULOCYTE % (test 0.3 % 0.0-2.0 N code = IG%) LYMPHOCYTE % (test code = LY%) 46.7 % 14.0-32.0 H MONOCYTE % (test code = MO%) 10.6 % 4.8-9.0 H EOSINOPHIL % (test code = EO%) 4.1 % 0.3-3.7 H BASOPHIL % (test code = BA%) 0.6 % 0.0-2.0 N NUCLEATED RBC % (test code = 0.0 % 0-0 N NRBC%) NEUTROPHIL # (test code = NT#) 4.39 x10 3/uL 2.0-7.6 N IMMATURE GRANULOCYTE # (test 0.03 x10 3/uL 0.00-0.03 N code = IG#) LYMPHOCYTE # (test code = LY#) 5.44 x10 3/uL 1.0-3.8 H MONOCYTE # (test code = MO#) 1.23 x10 3/uL 0.1-0.8 H EOSINOPHIL # (test code = EO#) 0.48 x10 3/uL 0.0-0.2 H BASOPHIL # (test code = BA#) 0.07 x10 3/uL 0.0-0.2 N NUCLEATED RBC # (test code = 0.00 x10 3/uL 0.0-0.1 N NRBC#) MANUAL DIFF REQUIRED (test code NO = MDIFF) GLUCOSE [id number] 20:40:00 Test Item Value Reference Range Interpretation Comments GLUCOSE BEDSIDE (test 118 MG/DL 70-110 H Perfor med by certified code = GLUBED) carving machine operator at [facility] GLUCOSE [id number] 17:24:00 Test Item Value Reference Range Interpretation Comments GLUCOSE BEDSIDE (test 115 MG/DL 70-110 H Perfor med by certified code = GLUBED) carving machine operator at [facility] CBC W/AUTO [id number] 16:13:00 Test Item Value Reference Range Interpretation Comments WHITE BLOOD CELL (test code = 13.9 x10 3/uL 4.5-11.0 H WBC) RED BLOOD CELL (test code = 3.69 x10 6/uL 4.00-5.60 L RBC) HEMOGLOBIN (test code = HGB) 10.1 g/dL 12.5-16.9 L HEMATOCRIT (test code = HCT) 31.9 % 37.5-50.7 L MEAN CELL VOLUME (test code = 86.4 fL 81.0-99.0 N MCV) MEAN CELL HGB (test code = MCH) 27.4 pg 27.0-33.0 N MEAN CELL HGB CONCETRATION 31.7 g/dL 33.0-37.0 L (test code = MCHC) RED CELL DISTRIBUTION WIDTH CV 15.5 % 11.5-14.5 H (test code = RDW) RED CELL DISTRIBUTION WIDTH SD 48.9 fL 37.0-54.0 N (test code = RDW-SD) PLATELET COUNT (test code = 625 x10 3/uL 150-400 H PLT) MEAN PLATELET VOLUME (test code 10.8 fL 7.0-9.0 H = MPV) NEUTROPHIL % (test code = NT%) 56.7 % 56.0-77.0 N IMMATURE GRANULOCYTE % (test 0.3 % 0.0-2.0 N code = IG%) LYMPHOCYTE % (test code = LY%) 31.8 % 14.0-32.0 N MONOCYTE % (test code = MO%) 8.1 % 4.8-9.0 N EOSINOPHIL % (test code = EO%) 2.7 % 0.3-3.7 N BASOPHIL % (test code = BA%) 0.4 % 0.0-2.0 N NUCLEATED RBC % (test code = 0.0 % 0-0 N NRBC%) NEUTROPHIL # (test code = NT#) 7.86 x10 3/uL 2.0-7.6 H IMMATURE GRANULOCYTE # (test 0.04 x10 3/uL 0.00-0.03 H code = IG#) LYMPHOCYTE # (test code = LY#) 4.41 x10 3/uL 1.0-3.8 H MONOCYTE # (test code = MO#) 1.12 x10 3/uL 0.1-0.8 H EOSINOPHIL # (test code = EO#) 0.37 x10 3/uL 0.0-0.2 H BASOPHIL # (test code = BA#) 0.06 x10 3/uL 0.0-0.2 N NUCLEATED RBC # (test code = 0.00 x10 3/uL 0.0-0.1 N NRBC#) MANUAL DIFF REQUIRED (test code NO = MDIFF) SED RATE [id number] 16:13:00 Test Item Value Reference Range Interpretation Comments SED RATE WESTERGREN (test code = 109 mm/hr 0-15 H SEDW) COMPREHENSIVE METABOLIC [id number] 15:41:00 Test Item Value Reference Range Interpretation Comments SODIUM (test code = 137 mEq/L 134-147 N NA) POTASSIUM (test code 3.1 mEq/L 3.4-5.0 L = K) CHLORIDE (test code 98 mEq/L 100-108 L = CL) CARBON DIOXIDE (test 29 mEq/l 21-33 N code = CO2) ANION GAP (test code 13 0-20 N = GAP) GLUCOSE (test code = 140 mg/dL 70-110 H GLU) BLOOD UREA NITROGEN 12 mg/dL 7-18 N (test code = BUN) GLOMERULAR 82.5 80-90 N The Glomerular FILTRATION RATE Filtration R ate is a (test code = GFR) calculated parameterbased on serum Creatinin e, patient age and sex. GFR valuesless than 60 mL/min/1.73 squ are meters are garima cative ofChronic Kidne y Disease. Values less than 15 mL/min/1.73squa re meters indicate Kidney failure. The calculation for GFR is based on the CK D-EPI (2020) calculat ion. This formulais race indifferent and is the recommended for prem for GFRby the [facility] Kidney Foundati on for Adults.The GFR will not calculate i f the sex is unknown or if thepatient's ag e is <18 years. CREATININE (test 1.0 mg/dL 0.6-1.3 N code = CREAT) TOTAL PROTEIN (test 8.2 g/dL 6.4-8.2 N code = PROT) ALBUMIN (test code = 2.20 g/dL 3.4-5.0 L ALB) CALCIUM (test code = 9.6 mg/dL 8.0-10.5 N CA) BILIRUBIN TOTAL 0.30 mg/dL 0.0-1.0 N (test code = BILT) SGOT/AST (test code 30 IUnit/L 15-37 N = AST) SGPT/ALT (test code 20 IUnit/L 30-65 L = ALT) ALKALINE PHOSPHATASE 243 IUnit/L 20-125 H TOTAL (test code = ALKP) LACTIC [id number] 15:38:00 Test Item Value Reference Range Interpretation Comments LACTIC ACID (test code = LACT) 1.7 mmol/L 0.4-1.9 N C REACTIVE [id number] 15:38:00 Test Item Value Reference Range Interpretation Comments C REACTIVE PROTEIN (test code = 160.0 mg/L <10.0 H CRP) - XR FOOT 3 + V [id number] 00:00:00 [facility] : 1955 Sex: M FAX: Violeta courtneyHayden DO [phone] [place]: St: ADM FAX: Kendrick Grayson MD Name: PEDRO MCGREGOR [facility] : 1955 Age/S: 66/M [address] [place] [address] Unit #: [id number] Loc: [place] [address] Phys: Kendrick Grayson MD Acct: [id number] Dis Date: Status: ADM IN PHONE #: [phone] Exam Date: 02/09/2022 1509 FAX #: [phone] Reason: foot wound EXAMS: CPT CODE: [id number] XR FOOT 3 + [place] [id number] PROCEDURE INFORMATION: Exam: XR Left Foot Exam date and time: 02/09/2022 2:56 PM Age: 66 years old Clinical indication: Other: Foot wound TECHNIQUE: Imaging protocol: Radiologic exam of the Left foot. Views: 3 or more views. AP Oblique Lateral COMPARISON: CT LOWER EXTRM W/O C LT 01/04/2022 9:47 AM FINDINGS: External fixators obscure portions of this exam. Bones/joints: Distal fibula shows deformity of indeterminate chronicity. Talar dome shows nonspecific lucency. Tibial talar joint shows posterior subluxation. Remaining joints appear unremarkable. Soft tissues: There are no radiopaque foreign bodies. There is no soft tissue gas or osseous erosive changes noted. Notes: If there is further concern, recommend follow-up radiographs or MRI for complete assessment. IMPRESSION: External fixators obscure portions ofthis exam. Distal fibula shows deformity of indeterminate chronicity. Talar dome shows nonspecific lucency. Osteomyelitis cannot be excluded. at 1553 Reported and signed by: Adolph Zhou M.D. 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 Shweta t performance dep ends on theamount of vi bisi (antigen) in th e sample.This shweta t has not been FDA cleare d or approved; the t est hasbeen authori zed by FDA under an Em ergency Use Authorizati on(EUA) for use by labo ratories certified under the CLIA thatmeet the requirements to perform moderate, high or waivedcomplexit y tests. 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 [facility] CBC W/AUTO [id number] 10:38:00 Test Item Value Reference Range Interpretation Comments WHITE BLOOD CELL 11.7 x10 3/uL 4.5-11.0 H (test code = WBC) RED BLOOD CELL (test 3.42 x10 6/uL 4.00-5.60 L code = RBC) HEMOGLOBIN (test code 9.6 g/dL 12.5-16.9 L = HGB) HEMATOCRIT (test code 30.5 % 37.5-50.7 L = HCT) MEAN CELL VOLUME 89.2 fL 81.0-99.0 N (test code = MCV) MEAN CELL HGB (test 28.1 pg 27.0-33.0 N code = MCH) MEAN CELL HGB 31.5 g/dL 33.0-37.0 L CONCETRATION (test code = MCHC) RED CELL DISTRIBUTION 15.6 % 11.5-14.5 H WIDTH CV (test code = RDW) RED CELL DISTRIBUTION 50.4 fL 37.0-54.0 N WIDTH SD (test code = RDW-SD) PLATELET COUNT (test 574 x10 3/uL 150-400 H code = PLT) MEAN PLATELET VOLUME 11.9 fL 7.0-9.0 H (test code = MPV) NEUTROPHIL % (test 48.1 % 56.0-77.0 L code = NT%) LYMPHOCYTE % (test 35.5 % 14.0-32.0 H code = LY%) NEUTROPHIL # (test 5.61 x10 3/uL 2.0-7.6 N code = NT#) LYMPHOCYTE # (test 4.14 x10 3/uL 1.0-3.8 H code = LY#) MANUAL DIFF REQUIRED NO SLIDE R LILIA, (test code = MDIFF) CONSISTE NT WITH AUTO DIFF. IMMATURE GRANULOCYTE 0.3 % 0.0-2.0 N % (test code = IG%) MONOCYTE % (test code 12.4 % 4.8-9.0 H = MO%) EOSINOPHIL % (test 2.8 % 0.3-3.7 N code = EO%) BASOPHIL % (test code 0.9 % 0.0-2.0 N = BA%) NUCLEATED RBC % (test 0.0 % 0-0 N code = NRBC%) IMMATURE GRANULOCYTE 0.04 x10 3/uL 0.00-0.03 H # (test code = IG#) MONOCYTE # (test code 1.45 x10 3/uL 0.1-0.8 H = MO#) EOSINOPHIL # (test 0.33 x10 3/uL 0.0-0.2 H code = EO#) BASOPHIL # (test code 0.10 x10 3/uL 0.0-0.2 N = BA#) NUCLEATED RBC # (test 0.00 x10 3/uL 0.0-0.1 N code = NRBC#) SED RATE [id number] 10:38:00 Test Item Value Reference Range Interpretation Comments SED RATE WESTERGREN (test code = 115 mm/hr 0-15 H SEDW) C REACTIVE [id number] 07:38:00 Test Item Value Reference Range Interpretation Comments C REACTIVE PROTEIN (test code = 88.0 mg/L <10.0 H CRP) GLUCOSE [id number] 07:33:00 Test Item Value Reference Range Interpretation Comments GLUCOSE BEDSIDE (test 186 MG/DL 70-110 H Perfor med by certified code = GLUBED) carving machine operator at [facility] GLUCOSE [id number] 20:05:00 Test Item Value Reference Range Interpretation Comments GLUCOSE BEDSIDE (test 309 MG/DL 70-110 H Perfor med by certified code = GLUBED) carving machine operator at [facility] GLUCOSE [id number] 16:34:00 Test Item Value Reference Range Interpretation Comments GLUCOSE BEDSIDE (test 327 MG/DL 70-110 H Perfor med by certified code = GLUBED) carving machine operator at [facility] GLUCOSE [id number] 13:27:00 Test Item Value Reference Range Interpretation Comments GLUCOSE BEDSIDE (test 272 MG/DL 70-110 H Perfor med by certified code = GLUBED) carving machine operator at [facility] GLUCOSE [id number] 09:08:00 Test Item Value Reference Range Interpretation Comments GLUCOSE BEDSIDE (test 229 MG/DL 70-110 H Perfor med by certified code = GLUBED) carving machine operator at [facility] GLUCOSE [id number] 22:32:00 Test Item Value Reference Range Interpretation Comments GLUCOSE BEDSIDE (test 113 MG/DL 70-110 H Perfor med by certified code = GLUBED) carving machine operator at [facility] GLUCOSE [id number] 17:09:00 Test Item Value Reference Range Interpretation Comments GLUCOSE BEDSIDE (test 230 MG/DL 70-110 H Perfor med by certified code = GLUBED) carving machine operator at [facility] GLUCOSE [id number] 13:09:00 Test Item Value Reference Range Interpretation Comments GLUCOSE BEDSIDE (test 313 MG/DL 70-110 H Perfor med by certified code = GLUBED) carving machine operator at [facility] GLUCOSE [id number] 08:50:00 Test Item Value Reference Range Interpretation Comments GLUCOSE BEDSIDE (test 275 MG/DL 70-110 H Perfor med by certified code = GLUBED) carving machine operator at [facility] GLUCOSE [id number] 23:00:00 Test Item Value Reference Range Interpretation Comments GLUCOSE BEDSIDE (test 310 MG/DL 70-110 H Perfor med by certified code = GLUBED) carving machine operator at [facility] GLUCOSE [id number] 17:57:00 Test Item Value Reference Range Interpretation Comments GLUCOSE BEDSIDE (test 377 MG/DL 70-110 H Perfor med by certified code = GLUBED) carving machine operator at [facility] GLUCOSE [id number] 12:56:00 Test Item Value Reference Range Interpretation Comments GLUCOSE BEDSIDE (test 372 MG/DL 70-110 H Perfor med by certified code = GLUBED) carving machine operator at [facility] GLUCOSE [id number] 09:20:00 Test Item Value Reference Range Interpretation Comments GLUCOSE BEDSIDE (test 246 MG/DL 70-110 H Perfor med by certified code = GLUBED) carving machine operator at [facility] CBC W/AUTO [id number] 07:20:00 Test Item Value Reference Range Interpretation Comments WHITE BLOOD CELL (test code = 14.6 x10 3/uL 4.5-11.0 H WBC) RED BLOOD CELL (test code = 3.46 x10 6/uL 4.00-5.60 L RBC) HEMOGLOBIN (test code = HGB) 9.8 g/dL 12.5-16.9 L HEMATOCRIT (test code = HCT) 31.1 % 37.5-50.7 L MEAN CELL VOLUME (test code = 89.9 fL 81.0-99.0 N MCV) MEAN CELL HGB (test code = MCH) 28.3 pg 27.0-33.0 N MEAN CELL HGB CONCETRATION 31.5 g/dL 33.0-37.0 L (test code = MCHC) RED CELL DISTRIBUTION WIDTH CV 15.6 % 11.5-14.5 H (test code = RDW) RED CELL DISTRIBUTION WIDTH SD 50.8 fL 37.0-54.0 N (test code = RDW-SD) PLATELET COUNT (test code = 602 x10 3/uL 150-400 H PLT) MEAN PLATELET VOLUME (test code 11.6 fL 7.0-9.0 H = MPV) NEUTROPHIL % (test code = NT%) 66.6 % 56.0-77.0 N IMMATURE GRANULOCYTE % (test 0.4 % 0.0-2.0 N code = IG%) LYMPHOCYTE % (test code = LY%) 21.7 % 14.0-32.0 N MONOCYTE % (test code = MO%) 9.0 % 4.8-9.0 N EOSINOPHIL % (test code = EO%) 1.9 % 0.3-3.7 N BASOPHIL % (test code = BA%) 0.4 % 0.0-2.0 N NUCLEATED RBC % (test code = 0.0 % 0-0 N NRBC%) NEUTROPHIL # (test code = NT#) 9.74 x10 3/uL 2.0-7.6 H IMMATURE GRANULOCYTE # (test 0.06 x10 3/uL 0.00-0.03 H code = IG#) LYMPHOCYTE # (test code = LY#) 3.17 x10 3/uL 1.0-3.8 N MONOCYTE # (test code = MO#) 1.31 x10 3/uL 0.1-0.8 H EOSINOPHIL # (test code = EO#) 0.28 x10 3/uL 0.0-0.2 H BASOPHIL # (test code = BA#) 0.06 x10 3/uL 0.0-0.2 N NUCLEATED RBC # (test code = 0.00 x10 3/uL 0.0-0.1 N NRBC#) MANUAL DIFF REQUIRED (test code NO = MDIFF) BASIC METABOLIC [id number] 06:57:00 Test Item Value Reference Range Interpretation Comments SODIUM (test code = 133 mEq/L 134-147 L NA) POTASSIUM (test code 3.8 mEq/L 3.4-5.0 N = K) CHLORIDE (test code 96 mEq/L 100-108 L = CL) CARBON DIOXIDE (test 29 mEq/l 21-33 N code = CO2) ANION GAP (test code 12 0-20 N = GAP) GLUCOSE (test code = 244 mg/dL 70-110 H GLU) BLOOD UREA NITROGEN 20 mg/dL 7-18 H (test code = BUN) GLOMERULAR 73.6 80-90 L The Glomerular FILTRATION RATE Filtration R ate is a (test code = GFR) calculated parameterbased on serum Creatinine, pat ient age and sex. GFR va luesless than 60 mL/min/ 1.73 square meters a re indicative ofCh ronic Kidney Disease. Values less than 15 mL/min/1.73squa re meters indicate Kidney failure. The calculation forGFR is based on the CKD-EPI (2020) calculat ion. This formulais race indifferent and is the recommended for prem for GFRby the [facility] Kidney Foundati on for Adults.The GFR will not calculate if th e sex is unknown or if thepatient's ag e is <18 years. CREATININE (test 1.1 mg/dL 0.6-1.3 N code = CREAT) CALCIUM (test code = 9.5 mg/dL 8.0-10.5 N CA) GLUCOSE [id number] 22:33:00 Test Item Value Reference Range Interpretation Comments GLUCOSE BEDSIDE (test 182 MG/DL 70-110 H Perfor med by certified code = GLUBED) carving machine operator at [facility] GLUCOSE [id number] 17:44:00 Test Item Value Reference Range Interpretation Comments GLUCOSE BEDSIDE (test 279 MG/DL 70-110 H Perfor med by certified code = GLUBED) carving machine operator at [facility] GLUCOSE [id number] 10:37:00 Test Item Value Reference Range Interpretation Comments GLUCOSE BEDSIDE (test 280 MG/DL 70-110 H Perfor med by certified code = GLUBED) carving machine operator at [facility] GLUCOSE [id number] 20:17:00 Test Item Value Reference Range Interpretation Comments GLUCOSE BEDSIDE (test 177 MG/DL 70-110 H Perfor med by certified code = GLUBED) carving machine operator at [facility] GLUCOSE [id number] 15:44:00 Test Item Value Reference Range Interpretation Comments GLUCOSE BEDSIDE (test 179 MG/DL 70-110 H Perfor med by certified code = GLUBED) carving machine operator at [facility] GLUCOSE [id number] 11:11:00 Test Item Value Reference Range Interpretation Comments GLUCOSE BEDSIDE (test 245 MG/DL 70-110 H Perfor med by certified code = GLUBED) carving machine operator at [facility] GLUCOSE [id number] 07:16:00 Test Item Value Reference Range Interpretation Comments GLUCOSE BEDSIDE (test 242 MG/DL 70-110 H Perfor med by certified code = GLUBED) carving machine operator at [facility] GLUCOSE [id number] 23:09:00 Test Item Value Reference Range Interpretation Comments GLUCOSE BEDSIDE (test 196 MG/DL 70-110 H Perfor med by certified code = GLUBED) carving machine operator at [facility] GLUCOSE [id number] 15:57:00 Test Item Value Reference Range Interpretation Comments GLUCOSE BEDSIDE (test 173 MG/DL 70-110 H Perfor med by certified code = GLUBED) carving machine operator at [facility] GLUCOSE [id number] 10:56:00 Test Item Value Reference Range Interpretation Comments GLUCOSE BEDSIDE (test 235 MG/DL 70-110 H Perfor med by certified code = GLUBED) carving machine operator at [facility] GLUCOSE [id number] 08:09:00 Test Item Value Reference Range Interpretation Comments GLUCOSE BEDSIDE (test 273 MG/DL 70-110 H Perfor med by certified code = GLUBED) carving machine operator at [facility] GLUCOSE [id number] 20:49:00 Test Item Value Reference Range Interpretation Comments GLUCOSE BEDSIDE (test 234 MG/DL 70-110 H Perfor med by certified code = GLUBED) carving machine operator at [facility] GLUCOSE [id number] 18:37:00 Test Item Value Reference Range Interpretation Comments GLUCOSE BEDSIDE (test 236 MG/DL 70-110 H Perfor med by certified code = GLUBED) carving machine operator at [facility] GLUCOSE [id number] 16:02:00 Test Item Value Reference Range Interpretation Comments GLUCOSE BEDSIDE (test 189 MG/DL 70-110 H Perfor med by certified code = GLUBED) carving machine operator at [facility] GLUCOSE [id number] 11:32:00 Test Item Value Reference Range Interpretation Comments GLUCOSE BEDSIDE (test 237 MG/DL 70-110 H Perfor med by certified code = GLUBED) carving machine operator at [facility] GLUCOSE [id number] 07:21:00 Test Item Value Reference Range Interpretation Comments GLUCOSE BEDSIDE (test 249 MG/DL 70-110 H Perfor med by certified code = GLUBED) carving machine operator at [facility] GLUCOSE [id number] 16:12:00 Test Item Value Reference Range Interpretation Comments GLUCOSE BEDSIDE (test 266 MG/DL 70-110 H Perfor med by certified code = GLUBED) carving machine operator at [facility] GLUCOSE [id number] 11:16:00 Test Item Value Reference Range Interpretation Comments GLUCOSE BEDSIDE (test 311 MG/DL 70-110 H Perfor med by certified code = GLUBED) carving machine operator at [facility] GLUCOSE [id number] 07:57:00 Test Item Value Reference Range Interpretation Comments GLUCOSE BEDSIDE (test 295 MG/DL 70-110 H Perfor med by certified code = GLUBED) carving machine operator at [facility] GLUCOSE [id number] 19:16:00 Test Item Value Reference Range Interpretation Comments GLUCOSE BEDSIDE (test 196 MG/DL 70-110 H Perfor med by certified code = GLUBED) carving machine operator at [facility] GLUCOSE [id number] 15:24:00 Test Item Value Reference Range Interpretation Comments GLUCOSE BEDSIDE (test 225 MG/DL 70-110 H Perfor med by certified code = GLUBED) carving machine operator at [facility] GLUCOSE [id number] 11:40:00 Test Item Value Reference Range Interpretation Comments GLUCOSE BEDSIDE (test 262 MG/DL 70-110 H Perfor med by certified code = GLUBED) carving machine operator at [facility] GLUCOSE [id number] 08:42:00 Test Item Value Reference Range Interpretation Comments GLUCOSE BEDSIDE (test 256 MG/DL 70-110 H Perfor med by certified code = GLUBED) carving machine operator at [facility] BASIC METABOLIC [id number] 05:53:00 Test Item Value Reference Range Interpretation Comments SODIUM (test code = 132 mEq/L 134-147 L NA) POTASSIUM (test code 4.1 mEq/L 3.4-5.0 N = K) CHLORIDE (test code 95 mEq/L 100-108 L = CL) CARBON DIOXIDE (test 29 mEq/l 21-33 N code = CO2) ANION GAP (test code 13 0-20 N = GAP) GLUCOSE (test code = 221 mg/dL 70-110 H GLU) BLOOD UREA NITROGEN 12 mg/dL 7-18 N (test code = BUN) GLOMERULAR 82.5 80-90 N The Glomerular FILTRATION RATE Filtration R ate is a (test code = GFR) calculated parameterbased on serum Creatinine, pat ient age and sex. GFR va luesless than 60 mL/min/ 1.73 square meters a re indicative ofCh ronic Kidney Disease. Values less than 15 mL/min/1.73squa re meters indicate Kidney failure. The calculation forGFR is based on the CKD-EPI (2020) calculat ion. This formulais race indifferent and is the recommended for prem for GFRby the [facility] on for Adults.The GFR will not calculate if th e sex is unknown or if thepatient's ag e is <18 years. CREATININE (test 1.0 mg/dL 0.6-1.3 N code = CREAT) CALCIUM (test code = 9.0 mg/dL 8.0-10.5 N CA) CBC W/AUTO [id number] 05:31:00 Test Item Value Reference Range Interpretation Comments WHITE BLOOD CELL (test code = 15.0 x10 3/uL 4.5-11.0 H WBC) RED BLOOD CELL (test code = 3.48 x10 6/uL 4.00-5.60 L RBC) HEMOGLOBIN (test code = HGB) 10.1 g/dL 12.5-16.9 L HEMATOCRIT (test code = HCT) 31.6 % 37.5-50.7 L MEAN CELL VOLUME (test code = 90.8 fL 81.0-99.0 N MCV) MEAN CELL HGB (test code = MCH) 29.0 pg 27.0-33.0 N MEAN CELL HGB CONCETRATION 32.0 g/dL 33.0-37.0 L (test code = MCHC) RED CELL DISTRIBUTION WIDTH CV 15.6 % 11.5-14.5 H (test code = RDW) RED CELL DISTRIBUTION WIDTH SD 51.4 fL 37.0-54.0 N (test code = RDW-SD) PLATELET COUNT (test code = 720 x10 3/uL 150-400 H PLT) MEAN PLATELET VOLUME (test code 10.8 fL 7.0-9.0 H = MPV) NEUTROPHIL % (test code = NT%) 65.1 % 56.0-77.0 N IMMATURE GRANULOCYTE % (test 0.5 % 0.0-2.0 N code = IG%) LYMPHOCYTE % (test code = LY%) 21.9 % 14.0-32.0 N MONOCYTE % (test code = MO%) 10.4 % 4.8-9.0 H EOSINOPHIL % (test code = EO%) 1.8 % 0.3-3.7 N BASOPHIL % (test code = BA%) 0.3 % 0.0-2.0 N NUCLEATED RBC % (test code = 0.0 % 0-0 N NRBC%) NEUTROPHIL # (test code = NT#) 9.76 x10 3/uL 2.0-7.6 H IMMATURE GRANULOCYTE # (test 0.08 x10 3/uL 0.00-0.03 H code = IG#) LYMPHOCYTE # (test code = LY#) 3.29 x10 3/uL 1.0-3.8 N MONOCYTE # (test code = MO#) 1.56 x10 3/uL 0.1-0.8 H EOSINOPHIL # (test code = EO#) 0.27 x10 3/uL 0.0-0.2 H BASOPHIL # (test code = BA#) 0.05 x10 3/uL 0.0-0.2 N NUCLEATED RBC # (test code = 0.00 x10 3/uL 0.0-0.1 N NRBC#) MANUAL DIFF REQUIRED (test code NO = MDIFF) GLUCOSE [id number] 00:39:00 Test Item Value Reference Range Interpretation Comments GLUCOSE BEDSIDE (test 237 MG/DL 70-110 H Perfor med by certified code = GLUBED) carving machine operator at [facility] - XR FLUOROSCOPY 0-60 [id number] 00:00:00 [facility] : 1955 Sex: M FAX: Hayden Gonzalez DO [phone] [place]: St: ADM Name: PEDRO MCGREGOR [facility] : 1955 Age/S: 66/M [address] [place] [address] Unit #: [id number] Loc: G.5506 [place] [address] Phys: Chelo Ward MD Acct: [id number] Dis Date: Status: ADM IN PHONE #: [phone] Exam Date: 01/05/2022 1120 FAX #: [phone] Reason: LT ANKLE FX EXAMS: CPT CODE: [id number] XR FLUOROSCOPY 0-60 MIN 90715 PROCEDURE INFORMATION: Exam:FL Fluoroscopy, Up to 1 Hour Physician Time; Radiologist Not Present For Fluoroscopy Exam date and time: 01/05/2022 8:58 PM Age: 66 years old Clinical indication: Symptoms: Lt ankle FX TECHNIQUE: Imaging protocol: Fluoroscopy , up to 1 hour physician or other qualified health patient care manager time. This radiologist did not supervise this procedure. Exam supervised by facility personnel. Report for radiation dosage reporting and documentation only. COMPARISON: No relevant prior studies available. RADIATION DOSE METRICS: Fluoroscopy time (seconds): seconds= 10 Number of fluoro spot images: images= 4 Reference air kerma (RAMON): 0.30 mGy FINDINGS: Procedural imaging: Fluoroscopy dosage documentation. See also separate procedure notes. Notes: Fluoroscopy supervised by facility personnel. See also separate procedure report. IMPRESSION: Fluoroscopy dosage documentation. See also separate procedure notes. at 2256 Reported and signed by: Booker Al M.D. CC: Hayden Yates DO Technologist: RT Roman(Agnes) Trnscrd Date/Time/By: 01/05/2022 (2256) : By: [email or web address] Orig Print D/T: S: 01/05/2022 (2256) PAGE 1 Signed ReportGLUCOSE BEDSIDE 2022-01-04 17:43:00 Test Item Value Reference Range Interpretation Comments GLUCOSE BEDSIDE (test 220 MG/DL 70-110 H Perfor med by certified code = GLUBED) carving machine operator at [facility] GLUCOSE [id number] 14:44:00 Test Item Value Reference Range Interpretation Comments GLUCOSE BEDSIDE (test 197 MG/DL 70-110 H Perfor med by certified code = GLUBED) carving machine operator at [facility] GLUCOSE [id number] 09:35:00 Test Item Value Reference Range Interpretation Comments GLUCOSE BEDSIDE (test 183 MG/DL 70-110 H Perfor med by certified code = GLUBED) carving machine operator at [facility] PROTHROMBIN [id number] 04:53:00 Test Item Value Reference Range Interpretation Comments PROTHROMBIN TIME 15.9 SECONDS 9.3-12.9 H PATIENT (test code = PTP) INTERNATIONAL NORMAL 1.4 0.8-1.2 H TARGET INR BY RATIO (test code = INDICATIO N Indication INR) INR1. Prophylax is of venous thrombos is 2.0 - 3.0 (orthoped ic surgery), Proph ylaxis of venous throm bosis (other than hig h-risk surgery), Treat ment of Deep Vein Thrombosis/Pulm onary Embolism, Preve ntion of systemic emb olism - Tissue heart va lves, Acute Myocardia l Infarction (to prevent systemic emboli sm), Valvular heart disease, Atrial Fibrillation, Bileaflet mecha nical valve in aortic position.2. Mec hanical prosthetic valv es (high risk), 2. 5 - 3.5 Presence of Lup us Anticoagulant o r Antiphospholipi d Antibodies, Pre vention of systemic emb olism - Acute Myocardia l Infarction (to prevent recurrent infar ct). THROMBOPLASTIN TIME [id number] 04:53:00 Test Item Value Reference Range Interpretation Comments THROMBOPLASTIN TIME 32.6 Seconds 25.0-39.5 N Therape utic Range: PARTIAL (test code = 50.4 - 88.3 Seconds PTT) Effective 05/29/2018 BASIC METABOLIC [id number] 04:48:00 Test Item Value Reference Range Interpretation Comments SODIUM (test code = 132 mEq/L 134-147 L NA) POTASSIUM (test code 4.2 mEq/L 3.4-5.0 N = K) CHLORIDE (test code 94 mEq/L 100-108 L = CL) CARBON DIOXIDE (test 30 mEq/l 21-33 N code = CO2) ANION GAP (test code 13 0-20 N = GAP) GLUCOSE (test code = 183 mg/dL 70-110 H GLU) BLOOD UREA NITROGEN 14 mg/dL 7-18 N (test code = BUN) GLOMERULAR 60.2 80-90 L The Glomerular FILTRATION RATE Filtration R ate is a (test code = GFR) calculated parameterbased on serum Creatinine, pat ient age and sex. GFR va luesless than 60 mL/min/ 1.73 square meters a re indicative ofCh ronic Kidney Disease. Values less than 15 mL/min/1.73squa re meters indicate Kidney failure. The calculation forGFR is based on the CKD-EPI (2020) calculat ion. This formulais race indifferent and is the recommended for prem for GFRby the [facility] Found[facility] on for Adults.The GFR will not calculate if th e sex is unknown or if thepatient's ag e is <18 years. CREATININE (test 1.3 mg/dL 0.6-1.3 N code = CREAT) CALCIUM (test code = 9.2 mg/dL 8.0-10.5 N CA) CBC W/AUTO [id number] 04:35:00 Test Item Value Reference Range Interpretation Comments WHITE BLOOD CELL (test code = 11.8 x10 3/uL 4.5-11.0 H WBC) RED BLOOD CELL (test code = 3.34 x10 6/uL 4.00-5.60 L RBC) HEMOGLOBIN (test code = HGB) 9.6 g/dL 12.5-16.9 L HEMATOCRIT (test code = HCT) 30.1 % 37.5-50.7 L MEAN CELL VOLUME (test code = 90.1 fL 81.0-99.0 N MCV) MEAN CELL HGB (test code = MCH) 28.7 pg 27.0-33.0 N MEAN CELL HGB CONCETRATION 31.9 g/dL 33.0-37.0 L (test code = MCHC) RED CELL DISTRIBUTION WIDTH CV 15.5 % 11.5-14.5 H (test code = RDW) RED CELL DISTRIBUTION WIDTH SD 50.9 fL 37.0-54.0 N (test code = RDW-SD) PLATELET COUNT (test code = 701 x10 3/uL 150-400 H PLT) MEAN PLATELET VOLUME (test code 10.5 fL 7.0-9.0 H = MPV) NEUTROPHIL % (test code = NT%) 61.3 % 56.0-77.0 N IMMATURE GRANULOCYTE % (test 0.5 % 0.0-2.0 N code = IG%) LYMPHOCYTE % (test code = LY%) 23.8 % 14.0-32.0 N MONOCYTE % (test code = MO%) 9.9 % 4.8-9.0 H EOSINOPHIL % (test code = EO%) 4.0 % 0.3-3.7 H BASOPHIL % (test code = BA%) 0.5 % 0.0-2.0 N NUCLEATED RBC % (test code = 0.0 % 0-0 N NRBC%) NEUTROPHIL # (test code = NT#) 7.24 x10 3/uL 2.0-7.6 N IMMATURE GRANULOCYTE # (test 0.06 x10 3/uL 0.00-0.03 H code = IG#) LYMPHOCYTE # (test code = LY#) 2.81 x10 3/uL 1.0-3.8 N MONOCYTE # (test code = MO#) 1.17 x10 3/uL 0.1-0.8 H EOSINOPHIL # (test code = EO#) 0.47 x10 3/uL 0.0-0.2 H BASOPHIL # (test code = BA#) 0.06 x10 3/uL 0.0-0.2 N NUCLEATED RBC # (test code = 0.00 x10 3/uL 0.0-0.1 N NRBC#) MANUAL DIFF REQUIRED (test code NO = MDIFF) - XR ANKLE 3 + V [id number] 00:00:[address] [facility] [place] [place] SARAI CLITHERALLName: PEDRO MCGREGOR : 1955 Sex: M FAX: Faby Cai [facility] [phone] [place]: St: [facility] FAX: Violeta Edin Yatesh DO [phone] Name: PEDRO MCGREGOR [facility] : 1955 Age/S: 66/M [address] [place] [address] Unit #: [id number] Loc: G.5506 [place] [address] Phys: Faby Wharton [facility] Acct: [id number] Dis Date: Status: ADM IN PHONE #: [phone] Exam Date: 01/04/202100 FAX #: [phone] Reason: INFECYION EXAMS: CPT CODE: [id number] XR ANKLE 3 + [place] [address] PROCEDURE INFORMATION: Exam: XR Left Ankle Exam date and time: 01/03/2022 8:22 PM Age: 66 years old Clinical indication: Swelling, leg or foot; Additional info: Infecyion TECHNIQUE: Imaging protocol: Radiologic exam of the Left ankle. Views: 3 or more views. AP Oblique Lateral COMPARISON: CR XR FOOT 3 + V LT 12/30/2021 6:16 PM FINDINGS: Bones/joints: Bimalleolar ankle fracture. There is transverse fracture lateral malleolus above the tibiotalar joint. There is a displaced medial malleolus fracture. Tibiotalar dislocation noted with the valgus angulation. Soft tissues: Marked soft tissue swelling. Apparent soft tissue wound and possible small locules of gas. Notes: If there is further concern, recommend follow-up radiographs or MRI for complete assessment. IMPRESSION: Bimalleolar fracture with displacement and tibiotalar dislocation. Superimposed infection cannot be excluded. at 1021 Reported and signed by: Gwyn Betancourt M.D. CC: Faby Wharton DPM; [facility] Technologist: RT Mat(Agnes) Trnscrd Date/Time/By: 01/04/2022 (102) : By: [email or web address] Orig Print D/T: S: 01/04/2022 (102) PAGE 1 Signed Report- CT LOWER EXTRM W/O C [id number] 00:00:00 [facility] : 1955 Sex: M Name: PEDRO MCGREGOR [facility] : 1955 Age/S: 66 / M [address] [place] [address] Unit #: [id number] Loc:DANIELLE Quiroz [address] Phys: Faby Wharton DPM Acct: [id number] Dis Date: Status: ADM IN PHONE #: [phone] Exam Date: 01/04/2022725 FAX #: [phone] Reason: INFECYION EXAMS: CPT CODE: [id number] CT LOWER EXTRM W/[place] [address] PROCEDURE INFORMATION: Exam: CT Left Lower Extremity Without Contrast Exam date and time: 01/04/2022 9:47 AM Age: 66 years old Clinical indication: Pain; Ankle and foot; Left; Additional info: Infection TECHNIQUE: Imaging protocol: CT of the Left lower extremity without contrast was performed. Radiation optimization: All CT scans at this facility use at least one of these dose optimization techniques: automated exposure control; mA and/or kV adjustment per patient size (includes targeted exams where dose is matched to clinical indication); or iterative reconstruction.COMPARISON: CR XR ANKLE 3 + V LT 01/03/2022 8:22 PM FINDINGS: Bones/joints: Bimalleolar ankle fracture. Transverse fracture lateral malleolus above the tibiotalar joint. Fracture extends into a comminuted fracture of the more inferolateral malleolus. There is also acute comminuted fracture of the medial malleolus. Tibiotalar dislocation noted. There is lateral displacement of the talus relative to the tibial plafond with valgus angulation. The bony demineralization and possible erosions identified in the lateral talar process . There is fracture of the sustentacular talus possible erosion. There appears to be erosion along the undersurface of the anterior talus. Anatomic alignment of the midfoot. Soft tissues: Soft tissue wound identified along the dorsal aspect of the ankle. There is marked soft tissue swelling and edema. Multiple locules of soft tissue gas identified. There is gas along the distal tibiofibular syndesmosis, along the lateral malleolus fracture, in the region of the distal tibia fracture and within the tibiotalar joint. There is also gas anteriorly near the wound. There is additional wound along the medial plantar aspect of the hindfoot. IMPRESSION: 1. Comminuted, displacedbimalleolar ankle fracture with tibiotalar dislocation 2. Multiple areas of bony demineralization and likely erosions. Appearance raises concern for superimposed infection/osteomyelitis. 3. Soft tissueswelling and soft tissue wounds. Multiple locules of soft tissue gas also raise concern for infection. PAGE 1 Signed Report (CONTINUED) Name: PEDRO MCGREGOR [facility] : 1955 Age/S: 66 / M [address] [place] [address] Unit #: [id number] Loc: [place] [address] Phys: Faby Wharton DPM Acct: [id number] Dis Date: Status: ADM IN PHONE #: [phone] Exam Date: 01/04/2022725 FAX #: [phone] Reas on: INFECYION EXAMS: CPT CODE: [id number] CT LOWER EXTRM W/[place] [address] (Continued) at 1155 Reported and signed by: Gwyn Betancourt M.D. 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 machine operator at [facility] GLUCOSE [id number] 17:42:00 Test Item Value Reference Range Interpretation Comments GLUCOSE BEDSIDE (test 165 MG/DL 70-110 H Perfor med by certified code = GLUBED) carving machine operator at [facility] GLUCOSE [id number] 11:36:00 Test Item Value Reference Range Interpretation Comments GLUCOSE BEDSIDE (test 240 MG/DL 70-110 H Perfor med by certified code = GLUBED) carving machine operator at [facility] GLUCOSE [id number] 07:44:00 Test Item Value Reference Range Interpretation Comments GLUCOSE BEDSIDE (test 209 MG/DL 70-110 H Perfor med by certified code = GLUBED) carving machine operator at [facility] GLUCOSE [id number] 20:24:00 Test Item Value Reference Range Interpretation Comments GLUCOSE BEDSIDE (test 167 MG/DL 70-110 H Perfor med by certified code = GLUBED) carving machine operator at [facility] GLUCOSE [id number] 15:57:00 Test Item Value Reference Range Interpretation Comments GLUCOSE BEDSIDE (test 136 MG/DL 70-110 H Perfor med by certified code = GLUBED) carving machine operator at [facility] GLUCOSE [id number] 11:44:00 Test Item Value Reference Range Interpretation Comments GLUCOSE BEDSIDE (test 248 MG/DL 70-110 H [facility] by certified code = GLUBED) carving machine operator at [facility] CBC W/AUTO [id number] 08:56:00 Test Item Value Reference Range Interpretation Comments WHITE BLOOD CELL (test code = 11.3 x10 3/uL 4.5-11.0 H WBC) RED BLOOD CELL (test code = 3.33 x10 6/uL 4.00-5.60 L RBC) HEMOGLOBIN (test code = HGB) 9.5 g/dL 12.5-16.9 L HEMATOCRIT (test code = HCT) 30.3 % 37.5-50.7 L MEAN CELL VOLUME (test code = 91.0 fL 81.0-99.0 N MCV) MEAN CELL HGB (test code = MCH) 28.5 pg 27.0-33.0 N MEAN CELL HGB CONCETRATION 31.4 g/dL 33.0-37.0 L (test code = MCHC) RED CELL DISTRIBUTION WIDTH CV 15.5 % 11.5-14.5 H (test code = RDW) RED CELL DISTRIBUTION WIDTH SD 51.3 fL 37.0-54.0 N (test code = RDW-SD) PLATELET COUNT (test code = 728 x10 3/uL 150-400 H PLT) MEAN PLATELET VOLUME (test code 11.3 fL 7.0-9.0 H = MPV) NEUTROPHIL % (test code = NT%) 60.4 % 56.0-77.0 N IMMATURE GRANULOCYTE % (test 0.8 % 0.0-2.0 N code = IG%) LYMPHOCYTE % (test code = LY%) 24.6 % 14.0-32.0 N MONOCYTE % (test code = MO%) 11.2 % 4.8-9.0 H EOSINOPHIL % (test code = EO%) 2.4 % 0.3-3.7 N BASOPHIL % (test code = BA%) 0.6 % 0.0-2.0 N NUCLEATED RBC % (test code = 0.0 % 0-0 N NRBC%) NEUTROPHIL # (test code = NT#) 6.83 x10 3/uL 2.0-7.6 N IMMATURE GRANULOCYTE # (test 0.09 x10 3/uL 0.00-0.03 H code = IG#) LYMPHOCYTE # (test code = LY#) 2.79 x10 3/uL 1.0-3.8 N MONOCYTE # (test code = MO#) 1.27 x10 3/uL 0.1-0.8 H EOSINOPHIL # (test code = EO#) 0.27 x10 3/uL 0.0-0.2 H BASOPHIL # (test code = BA#) 0.07 x10 3/uL 0.0-0.2 N NUCLEATED RBC # (test code = 0.00 x10 3/uL 0.0-0.1 N NRBC#) MANUAL DIFF REQUIRED (test code NO = MDIFF) GLUCOSE [id number] 08:13:00 Test Item Value Reference Range Interpretation Comments GLUCOSE BEDSIDE (test 206 MG/DL 70-110 H Perfor med by certified code = GLUBED) carving machine operator at [facility] BASIC METABOLIC [id number] 08:07:00 Test Item Value Reference Range Interpretation Comments SODIUM (test code = 133 mEq/L 134-147 L NA) POTASSIUM (test code 4.1 mEq/L 3.4-5.0 N = K) CHLORIDE (test code 96 mEq/L 100-108 L = CL) CARBON DIOXIDE (test 28 mEq/l 21-33 N code = CO2) ANION GAP (test code 14 0-20 N = GAP) GLUCOSE (test code = 181 mg/dL 70-110 H GLU) BLOOD UREA NITROGEN 14 mg/dL 7-18 N (test code = BUN) GLOMERULAR 73.6 80-90 L The Glomerular FILTRATION RATE Filtration R ate is a (test code = GFR) calculated parameterbased on serum Creatinine, pat ient age and sex. GFR va luesless than 60 mL/min/ 1.73 square meters a re indicative ofCh ronic Kidney Disease. Values less than 15 mL/min/1.73squa re meters indicate Kidney failure. The calculation forGFR is based on the CKD-EPI (2020) calculat ion. This formulais race indifferent and is the recommended for prem for GFRby the [facility] n[facility] Kidney Foundati on for Adults.The GFR will not calculate if th e sex is unknown or if thepatient's ag e is <18 years. CREATININE (test 1.1 mg/dL 0.6-1.3 N code = CREAT) CALCIUM (test code = 9.3 mg/dL 8.0-10.5 N CA) [id number] 08:07:00 Test Item Value Reference Range Interpretation Comments PHOSPHOROUS (test code = PHOS) 3.8 MG/DL 2.5-4.9 N [id number] 08:07:00 Test Item Value Reference Range Interpretation Comments MAGNESIUM (test code = MAG) 2.07 mg/dL 1.80-2.40 GLUCOSE [id number] 21:06:00 Test Item Value Reference Range Interpretation Comments GLUCOSE BEDSIDE (test 183 MG/DL 70-110 H Perfor med by certified code = GLUBED) carving machine operator at [facility] GLUCOSE [id number] 17:21:00 Test Item Value Reference Range Interpretation Comments GLUCOSE BEDSIDE (test 197 MG/DL 70-110 H Perfor med by certified code = GLUBED) carving machine operator at [facility] GLUCOSE [id number] 11:14:00 Test Item Value Reference Range Interpretation Comments GLUCOSE BEDSIDE (test 322 MG/DL 70-110 H Perfor med by certified code = GLUBED) carving machine operator at [facility] GLUCOSE [id number] 08:13:00 Test Item Value Reference Range Interpretation Comments GLUCOSE BEDSIDE (test 212 MG/DL 70-110 H Perfor med by certified code = GLUBED) carving machine operator at [facility] SED RATE [id number] 05:20:00 Test Item Value Reference Range Interpretation Comments SED RATE WESTERGREN (test code = 108 mm/hr 0-15 H SEDW) [id number] 04:55:00 Test Item Value Reference Range Interpretation Comments HGBA1C% (test code = HGBA1C%) 8.8 %A1C 4.8-6.0 H C REACTIVE [id number] 04:52:00 Test Item Value Reference Range Interpretation Comments C REACTIVE PROTEIN (test code = 199.0 mg/L <10.0 H CRP) BASIC METABOLIC [id number] 04:52:00 Test Item Value Reference Range Interpretation Comments SODIUM (test code = 134 mEq/L 134-147 N NA) POTASSIUM (test code 4.1 mEq/L 3.4-5.0 N = K) CHLORIDE (test code 98 mEq/L 100-108 L = CL) CARBON DIOXIDE (test 28 mEq/l 21-33 N code = CO2) ANION GAP (test code 12 0-20 N = GAP) GLUCOSE (test code = 202 mg/dL 70-110 H GLU) BLOOD UREA NITROGEN 13 mg/dL 7-18 (test code = BUN) GLOMERULAR 82.5 80-90 N The Glomerular FILTRATION RATE Filtration R ate is a (test code = GFR) calculated parameterbased on serum Creatinine, pat ient age and sex. GFR va luesless than 60 mL/min/ 1.73 square meters a re indicative ofCh ronic Kidney Disease. Values less than 15 mL/min/1.73squa re meters indicate Kidney failure. The calculation forGFR is based on the CKD-EPI (2020) calculat ion. This formulais race indifferent and is the recommended for prem for GFRby the Nat nal Kidney Foundati on for Adults.The GFR will not calculate if th e sex is unknown or if thepatient's ag e is <18 years. CREATININE (test 1.0 mg/dL 0.6-1.3 code = CREAT) CALCIUM (test code = 9.4 mg/dL 8.0-10.5 N CA) [id number] 04:52:00 Test Item Value Reference Range Interpretation Comments MAGNESIUM (test code = MAG) 1.73 mg/dL 1.80-2.40 L UA RFLX MICR CULT IF [id number] 04:52:00 Test Item Value Reference Range Interpretation Comments UA COLOR (test code = COLU) YELLOW YEL/STRAW UA APPEARANCE (test code = APPU) SL CLOUDY CLEAR UA GLUCOSE DIPSTICK (test code = 1+ NEGATIVE A DGLUU) UA BILIRUBIN DIPSTICK (test code NEGATIVE NEGATIVE = BILU) UA KETONE DIPSTICK (test code = TRACE NEGATIVE A KETU) UA SPECIFIC GRAVITY (test code = 1.016 1.005-1.030 N SGU) UA BLOOD DIPSTICK (test code = 3+ NEGATIVE A JOSE A) UA PH DIPSTICK (test code = LAUREEN) 6.0 5.0-7.0 N UA PROTEIN DIPSTICK (test code = 1+ NEGATIVE A PROU) UA UROBILINIOGEN DIPSTICK (test 0.2 mg/dL 0.2-1.0 code = URO) UA NITRITE DIPSTICK (test code = NEGATIVE NEGATIVE MONTY) UA LEUKOCYTE ESTERASE DIPSTICK 1+ NEGATIVE A (test code = LEUU) UA WBC (test code = WBCU) >50 WBC/HPF 0-3 A UA RBC (test code = RBCU) >50 RBC/HPF 0-3 A UA WBC NO REFLEX (test code = >50 WBC/HPF 0-3 A WBCUCL) UA BACTERIA (test code = BACU) TRACE /HPF NONE SEEN UA SQUAMOUS CELLS (test code = 0-5 /HPF NONE SEEN SQU) UA MUCUS (test code = MUCU) TRACE /LPF NONE SEEN Cath type: Temporary/indwellingIN date: 12/30/21IN time: date: 12/31/21DC time: 809Elapse time: 12 Hrs 43 MinsIndication for culture: Suprapubic PainSpecimen Description: INDWELLING CATH (BHARDWAJ)Cath Status: Under 72 hoursCBC W/AUTO [id number] 04:32:00 Test Item Value Reference Range Interpretation Comments WHITE BLOOD CELL (test code = 11.2 x10 3/uL 4.5-11.0 H WBC) RED BLOOD CELL (test code = 3.16 x10 6/uL 4.00-5.60 L RBC) HEMOGLOBIN (test code = HGB) 9.2 g/dL 12.5-16.9 L HEMATOCRIT (test code = HCT) 28.2 % 37.5-50.7 L MEAN CELL VOLUME (test code = 89.2 fL 81.0-99.0 N MCV) MEAN CELL HGB (test code = MCH) 29.1 pg 27.0-33.0 N MEAN CELL HGB CONCETRATION 32.6 g/dL 33.0-37.0 L (test code = MCHC) RED CELL DISTRIBUTION WIDTH CV 15.4 % 11.5-14.5 H (test code = RDW) RED CELL DISTRIBUTION WIDTH SD 50.5 fL 37.0-54.0 N (test code = RDW-SD) PLATELET COUNT (test code = 724 x10 3/uL 150-400 H PLT) MEAN PLATELET VOLUME (test code 11.1 fL 7.0-9.0 H = MPV) NEUTROPHIL % (test code = NT%) 64.5 % 56.0-77.0 N IMMATURE GRANULOCYTE % (test 0.7 % 0.0-2.0 N code = IG%) LYMPHOCYTE % (test code = LY%) 20.6 % 14.0-32.0 N MONOCYTE % (test code = MO%) 12.6 % 4.8-9.0 H EOSINOPHIL % (test code = EO%) 1.1 % 0.3-3.7 N BASOPHIL % (test code = BA%) 0.5 % 0.0-2.0 N NUCLEATED RBC % (test code = 0.0 % 0-0 N NRBC%) NEUTROPHIL # (test code = NT#) 7.20 x10 3/uL 2.0-7.6 N IMMATURE GRANULOCYTE # (test 0.08 x10 3/uL 0.00-0.03 H code = IG#) LYMPHOCYTE # (test code = LY#) 2.30 x10 3/uL 1.0-3.8 N MONOCYTE # (test code = MO#) 1.41 x10 3/uL 0.1-0.8 H EOSINOPHIL # (test code = EO#) 0.12 x10 3/uL 0.0-0.2 N BASOPHIL # (test code = BA#) 0.06 x10 3/uL 0.0-0.2 N NUCLEATED RBC # (test code = 0.00 x10 3/uL 0.0-0.1 N NRBC#) MANUAL DIFF REQUIRED (test code NO = MDIFF) - RETROPERITONEAL [id number] 00:00:00 [facility]ST[facility] REYESY : 1955 Sex: M Name: PEDRO MCGREGOR [facility] [place] : 1955 Age/S: 66 / M [address] [place] [address] Unit #: [id number] Loc: [place] [address] Phys: Dima Forbes NP Acct: [id number] Dis Date: Status: ADM IN PHONE #: [phone] Exam Date: 01/01/2022 120 FAX #: [phone] Reason: UTI'S , RETENTION OF URINE EXAMS: CPT CODE: [id number] US RETROPERITONEAL COM [id number] PROCEDURE INFORMATION: Exam: US Retroperitoneal; Complete; Kidneys and Bladder Exam date and time: 01/01/2022 11:49 AM Age: 66 years old Clinical indication: Condition or disease; Other: UTI; Additional info: Uti's , retention of urine TECHNIQUE: Imaging protocol: Real-time ultrasound of the retroperitoneum with image documentation. Complete exam focusedon the kidneys and bladder. COMPARISON: No relevant prior studies available. FINDINGS: Right kidney: Grossly normal. No stones. No hydronephrosis. Measures 13.9 cm in length. Left kidney: Grossly normal. No stones. No hydronephrosis. Measures 12.1 cm in length. Urinary bladder: Decompressed around a Bhardwaj catheter. IMPRESSION: No acute abnormalities of the kidneys. at 1248 Reported and signed by: Abram Elena M.D. CC: Dima Forbes LINK CUTTER; [facility] Technologist: Jennifer Live RDMS(AB) Trnscb Date/Time: 01/01/2022 (124) [email or web address] Orig Print D/T: S: 01/01/2022 (1248) Probe: PAGE 1 Signed Report- DOP ART SGL LEVEL [id number] 00:00:00 [facility] : 1955 Sex: M Name: PEDRO MCGREGOR [facility] [place] : 1955 Age/S: 66 / M [address] [place] [address] Blvd Unit #: [id number] Loc:[place] [address] Phys: Alejandro Shah DPM Acct: [id number] Dis Date: Status: ADM IN PHONE #: [phone] Exam Date: 01/01/2022 1206 FAX #: [phone] Reason: pvd EXAMS: CPT CODE: [id number] DOP ART SGL LEVEL MALIK 79993 PROCEDURE INFORMATION: Exam: US Duplex Lower Extremity Arteries Exam date and t kaitlin: 01/01/2022 11:57 AM Age: 66 years old Clinical indication: Condition or disease; Other: Pvd TECHNIQUE: Imaging protocol: Real-time ultrasound scan of the arteries of the bilateral lower extremities with 2-D curtis scale, color Doppler flow and spectral waveform analysis. Images documented and saved. COMPARISON: CR XR FOOT 3 + V LT 12/30/2021 6:16 PM FINDINGS: Right common femoral artery: No occlusion or significant stenosis. Normal waveform. Right superficial femoral artery: No occlusion or significant stenosis. Normal waveform. Right popliteal artery: No occlusion or significant stenosis. Normal waveform. Right calf/foot arteries: No occlusion or significant stenosis in the visualized arteries. Normal waveforms. Dorsalis pedis artery is patent. The right CEDRICK is 1.32. Left common femoral artery: No occlusion or significant stenosis. Normal waveform. Left superficial femoral artery: Monophasicwaveform. Left popliteal artery: Monophasic waveform. Left calf/foot arteries: Monophasic waveforms with diminished amplitude. The left CEDRICK is 0.93. IMPRESSION: Monophasic waveforms in the left lower extremity. at 1354 Reported and signed by: Shiva Baker M.D. CC: [facility] Brayan Shah DPM Technologist: Jennifer Live RDMS(); ... 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 machine operator at [facility] GLUCOSE [id number] 11:47:00 Test Item Value Reference Range Interpretation Comments GLUCOSE BEDSIDE (test 276 MG/DL 70-110 H Perfor med by certified code = GLUBED) 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 machine operator at [facility] GLUCOSE [id number] 08:14:00 Test Item Value Reference Range Interpretation Comments GLUCOSE BEDSIDE (test 238 MG/DL 70-110 H Perfor med by certified code = GLUBED) carving machine operator at [facility] UA RFLX MICR CULT IF [id number] 20:59:00 Test Item Value Reference Range Interpretation Comments UA COLOR (test code = COLU) YELLOW YEL/STRAW UA APPEARANCE (test code = CLEAR CLEAR APPU) UA GLUCOSE DIPSTICK (test code NEGATIVE NEGATIVE = DGLUU) UA BILIRUBIN DIPSTICK (test NEGATIVE NEGATIVE code = BILU) UA KETONE DIPSTICK (test code NEGATIVE NEGATIVE = KETU) UA SPECIFIC GRAVITY (test code 1.008 1.005-1.030 N = SGU) UA BLOOD DIPSTICK (test code = 2+ NEGATIVE A JOSE A) UA PH DIPSTICK (test code = 6.0 5.0-7.0 N LAUREEN) UA PROTEIN DIPSTICK (test code NEGATIVE NEGATIVE = PROU) UA UROBILINIOGEN DIPSTICK 0.2 mg/dL 0.2-1.0 (test code = URO) UA NITRITE DIPSTICK (test code NEGATIVE NEGATIVE = MONTY) UA LEUKOCYTE ESTERASE DIPSTICK NEGATIVE NEGATIVE (test code = LEUU) UA WBC (test code = WBCU) 4-9 WBC/HPF 0-3 A UA RBC (test code = RBCU) 11-20 RBC/HPF 0-3 UA WBC NO REFLEX (test code = 4-9 WBC/HPF 0-3 A WBCUCL) UA BACTERIA (test code = BACU) TRACE /HPF NONE SEEN UA SQUAMOUS CELLS (test code = NONE SEEN /HPF NONE SEEN SQU) UA HYALINE CAST (test code = 0-2 /LPF NONE SEEN HYALU) UA MUCUS (test code = MUCU) TRACE /LPF NONE SEEN Indication for culture: RiskForSepsis-no oth srcSpecimen Description: CLEAN CATCHB-TYPE NATRIURETIC [id number] 20:14:00 Test Item Value Reference Range Interpretation Comments B-TYPE NATRIURETIC PEPTIDE (test 40.0 PG/ML 0-100 N code = BNP) HEPATIC FUNCTION [id number] 20:08:00 Test Item Value Reference Range Interpretation Comments TOTAL PROTEIN (test code = PROT) 9.2 g/dL 6.4-8.2 H ALBUMIN (test code = ALB) 2.30 g/dL 3.4-5.0 L BILIRUBIN TOTAL (test code = 0.30 mg/dL 0.0-1.0 N BILT) BILIRUBIN DIRECT (test code = 0.30 MG/DL 0.0-0.30 N BILD) BILIRUBIN INDIRECT (test code = 0.00 MG/DL BILIND) SGOT/AST (test code = AST) 25 IUnit/L 15-37 N SGPT/ALT (test code = ALT) 19 IUnit/L 30-65 L ALKALINE PHOSPHATASE TOTAL (test 342 IUnit/L 20-125 H code = ALKP) TROP-I HIGH [id number] 20:08:00 Test Item Value Reference Range Interpretation Comments TROP-I HIGH 7 ng/L 0-54 N CAUTION: Units of the SENSITIVITY (test current te st methodology code = TROPIHS) (ng/L) diffe rfrom the prior test methodolog y (ng/mL) by a factor of 1000. 99th Percentile Upper Reference Limit (URL): Females: 34 ng/LMales: 54 n g/L In order to distinguish acute elevations of h igh sensitivitytrop onin from other clinical conditions, the FourthUnive rsal Definition of M yocardial Infarction stre ssesclinical assessment and the demonstration o f a rise and/orfall in s erial troponin result s above the URL. These resu lts were obtained using Siemens Atellica IM TnI Hreagent. Results from di fferent methodologies s hould not becompared to o ne another as quantitative results and URLs mayvary by method. BASIC METABOLIC [id number] 20:08:00 Test Item Value Reference Range Interpretation Comments SODIUM (test code = 128 mEq/L 134-147 L NA) POTASSIUM (test code 3.9 mEq/L 3.4-5.0 N = K) CHLORIDE (test code 90 mEq/L 100-108 L = CL) CARBON DIOXIDE (test 30 mEq/l 21-33 N code = CO2) ANION GAP (test code 12 0-20 N = GAP) GLUCOSE (test code = 249 mg/dL 70-110 H GLU) BLOOD UREA NITROGEN 20 mg/dL 7-18 H (test code = BUN) GLOMERULAR 55.1 80-90 L The Glomerular FILTRATION RATE Filtration R ate is a (test code = GFR) calculated parameterbased on serum Creatinine, pat ient age and sex. GFR va luesless than 60 mL/min/ 1.73 square meters a re indicative ofCh ronic Kidney Disease. Values less than 15 mL/min/1.73squa re meters indicate Kidney failure. The calculation for GFR is based on the CK D-EPI (2020) calculat ion. This formulais race indifferent and is the recommended for prem for GFRby the Natio nal Kidney Foundati on for Adults.The GFR will not calculate if th e sex is unknown or if thepatient's ag e is <18 years. CREATININE (test 1.4 mg/dL 0.6-1.3 H code = CREAT) CALCIUM (test code = 10.1 mg/dL 8.0-10.5 N CA) COVID 19 INHOUSE [id number] 18:57:00 Test Item Value Reference Range Interpretation Comments COVID 19 INHOUSE Negative Negative A negative result is AG (test code = presumptive and should be [id number]) confirmedwith a n FDA authorized mole cular assay, if necessary fo rpatient management.A po sitive result does not rule out co-infections w ithother pathogens.This test detects both viable (li ve) and non-viable,SARS -CoV, and SARS-CoV-2. Shweta t performance dep ends on theamount of vi bisi (antigen) in th e sample.This shweta t has not been FDA cleare d or approved; the t est hasbeen authorized by Andrew GALINDO under an Emergency Use Authorization(E UA) for use by laboratories certified under the CLIA thatmeet the requirements to perform moderate, high or waivedcomplexit y tests. LACTIC [id number] 18:46:00 Test Item Value Reference Range Interpretation Comments LACTIC ACID (test code = LACT) 1.6 mmol/L 0.4-1.9 N CBC W/AUTO [id number] 18:29:00 Test Item Value Reference Range Interpretation Comments WHITE BLOOD CELL (test code = 13.1 x10 3/uL 4.5-11.0 H WBC) RED BLOOD CELL (test code = 3.80 x10 6/uL 4.00-5.60 L RBC) HEMOGLOBIN (test code = HGB) 11.0 g/dL 12.5-16.9 L HEMATOCRIT (test code = HCT) 34.2 % 37.5-50.7 L MEAN CELL VOLUME (test code = 90.0 fL 81.0-99.0 N MCV) MEAN CELL HGB (test code = MCH) 28.9 pg 27.0-33.0 N MEAN CELL HGB CONCETRATION 32.2 g/dL 33.0-37.0 L (test code = MCHC) RED CELL DISTRIBUTION WIDTH CV 15.4 % 11.5-14.5 H (test code = RDW) RED CELL DISTRIBUTION WIDTH SD 50.6 fL 37.0-54.0 N (test code = RDW-SD) PLATELET COUNT (test code = 770 x10 3/uL 150-400 H PLT) MEAN PLATELET VOLUME (test code 10.7 fL 7.0-9.0 H = MPV) NEUTROPHIL % (test code = NT%) 70.2 % 56.0-77.0 N IMMATURE GRANULOCYTE % (test 0.6 % 0.0-2.0 N code = IG%) LYMPHOCYTE % (test code = LY%) 18.0 % 14.0-32.0 N MONOCYTE % (test code = MO%) 10.1 % 4.8-9.0 H EOSINOPHIL % (test code = EO%) 0.6 % 0.3-3.7 N BASOPHIL % (test code = BA%) 0.5 % 0.0-2.0 N NUCLEATED RBC % (test code = 0.0 % 0-0 N NRBC%) NEUTROPHIL # (test code = NT#) 9.23 x10 3/uL 2.0-7.6 H IMMATURE GRANULOCYTE # (test 0.08 x10 3/uL 0.00-0.03 H code = IG#) LYMPHOCYTE # (test code = LY#) 2.36 x10 3/uL 1.0-3.8 N MONOCYTE # (test code = MO#) 1.32 x10 3/uL 0.1-0.8 H EOSINOPHIL # (test code = EO#) 0.08 x10 3/uL 0.0-0.2 N BASOPHIL # (test code = BA#) 0.06 x10 3/uL 0.0-0.2 N NUCLEATED RBC # (test code = 0.00 x10 3/uL 0.0-0.1 N NRBC#) MANUAL DIFF REQUIRED (test code NO = MDIFF) POCT GLUCOSE (AUTOMATED)2021-12-30 17:45:12 Test Item Value Reference Range Interpretation Comments POCT GLU (test code = 2995964093) 233 mg/dL 70-110 H Lab Interpretation (test code = Abnormal 63167-7) [facility] GLUCOSE (AUTOMATED)2021-12-30 14:13:50 Test Item Value Reference Range Interpretation Comments POCT GLU (test code = 6734780334) 292 mg/dL 70-110 H Lab Interpretation (test code = Abnormal 90395-1) [facility] GLUCOSE (AUTOMATED)2021-12-30 03:07:54 Test Item Value Reference Range Interpretation Comments POCT GLU (test code = 3892738641) 298 mg/dL 70-110 H Lab Interpretation (test code = Abnormal 37438-9) [facility]- XR FOOT 3 + V [id number] 00:00:00 [facility] : 1955 Sex: M FAX: Rika Schmitz MD [phone] [place]: St: [facility] FAX: Audrey Chu Name: PEDRO MCGREGOR [facility] : 1955 Age/S: 66/M [address] [place] [address] Unit #: [id number] Loc: [place] [address] Phys: Audrey Crews Acct: [id number] Dis Date: Status: [facility] ER PHONE #: [phone] Exam Date: 12/30/20211831 FAX #: [phone] Reason: osteomyelitis EXAMS: CPT CODE: [id number] XR FOOT 3 + V LT [address]37 PROCEDURE INFORMATION: Exam: XR Left Foot Exam date and time: 12/30/2021 6:16 PM Age: 66 years old Clinical indication: Condition or disease; Other: Osteomyelitis TECHNIQUE: Imaging protocol: Radiologic exam of theLeft foot. Views: 3 or more views. AP Oblique Lateral COMPARISON: No relevant prior studies available. FINDINGS: Bones/joints: There is normal alignment without fractures or dislocations however overlying bandage material limits fine bony detail. Degenerative change involves the tarsal bones includingmarginal osteophyte formation. There is a small plantar calcaneal spur. Soft tissues: There is diffuse soft tissue swelling. There is an apparent ulcer involving the distal plantar soft tissues. Notes:If there is further concern, recommend follow-up radiographs or MRI for complete assessment. IMPRESSION: 1. Limited study, no acute fracture or dislocation identified. 2. Diffuse soft tissue swelling with distal plantar soft tissue ulcer. at 1856 Reported and signed by: Shiva Baker M.D. CC: Rika Perrin MD; Audrey Crews PATechnologist: RT Esperanza(R) Trnscrd Date/Time/By: 12/30/2021 (1855) : By: SegundoTDO Orig Print D/T: S: 12/30/2021 (1855) PAGE 1 Signed Report- XR CHEST 1 [id number] 00:00:00[facility] DELORES PEDRO : 1955 Sex: M FAX: Rika Schmitz MD [phone] [place]: St: REG FAX: Audrey Chu Name: PEDRO MCGREGOR [facility] : 1955 Age/S: 66/M [address] [place] [address] Unit #: [id number] Loc: [place] [address] Phys: Audrey Crews Acct: [id number] Dis Date: Status: REG ER PHONE #: [phone] Exam Date: 12/30/2021 183 FAX #: [phone] Reason: dyspnea EXAMS: CPT CODE: [id number] XR CHEST 1 V 03879 PROCEDURE INFORMATION:Exam: XR Chest Exam date and time: 12/30/2021 6:16 PM Age: 66 years old Clinical indication: DyspneaTECHNIQUE: Imaging protocol: Radiologic exam of the chest. Views: 1 view. COMPARISON: No relevant prior studies available. FINDINGS: Lungs: Linear opacities are seen in left lung base. Pleural spaces: No pleural effusion. No pneumothorax. Heart/Mediastinum: Cardiomediastinal silhouette is enlarged. Bones/joints: Sternotomy wires are present. IMPRESSION: Left lung base linear atelectasis or scarring.No acute pulmonary findings. [id number] Reported and signed by: Martin Head M.D. CC: Rika Perrin MD; Audrey JOHNSON Technologist: RT Esperanza(R) Trnscrd Date/Time/By: 12/30/2021 (1857) : By: [email or web address] Orig Print D/T: S: 12/14 (1857) PAGE 1 Signed ReportPOCT GLUCOSE (AUTOMATED)2021-12-29 22:20:06 Test Item Value Reference Range Interpretation Comments POCT GLU (test code = 1394715135) 332 mg/dL 70-110 H Lab Interpretation (test code = Abnormal 54541-8) [facility] GLUCOSE (AUTOMATED)2021-12-29 17:48:04 Test Item Value Reference Range Interpretation Comments POCT GLU (test code = 0517159135) 280 mg/dL 70-110 H Lab Interpretation (test code = Abnormal 93456-7) [facility] GLUCOSE (AUTOMATED)2021-12-29 13:16:56 Test Item Value Reference Range Interpretation Comments POCT GLU (test code = 9957869724) 281 mg/dL 70-110 H Lab Interpretation (test code = Abnormal 23424-6) [facility]21-[facility]29 03:22:35 Test Item Value Reference Range Interpretation Comments POCT GLU (test code = 4328263237) 244 mg/dL 70-110 H Lab Interpretation (test code = Abnormal 86418-3) [facility]2021-12-28 23:34:52 Test Item Value Reference Range Interpretation Comments POCT GLU (test code = 5100885014) 285 mg/dL 70-110 H Lab Interpretation (test code = Abnormal 48142-7) [facility] GLUCOSE (AUTOMATED)2021-12-28 21:42:37 Test Item Value Reference Range Interpretation Comments POCT GLU (test code = 6953734631) 225 mg/dL 70-110 H Lab Interpretation (test code = Abnormal 27998-4) [facility] GLUCOSE (AUTOMATED)2021-12-28 17:11:12 Test Item Value Reference Range Interpretation Comments POCT GLU (test code = 0799863264) 273 mg/dL 70-110 H Lab Interpretation (test code = Abnormal 31517-0) [facility] GLUCOSE (AUTOMATED)2021-12-28 13:18:52 Test Item Value Reference Range Interpretation Comments POCT GLU (test code = 1265240607) 222 mg/dL 70-110 H Lab Interpretation (test code = Abnormal 92317-8) [facility] GLUCOSE (AUTOMATED)2021-12-28 03:03:04 Test Item Value Reference Range Interpretation Comments POCT GLU (test code = 2661829445) 202 mg/dL 70-110 H Lab Interpretation (test code = Abnormal 44092-5) [facility] GLUCOSE (AUTOMATED)2021-12-27 22:01:50 Test Item Value Reference Range Interpretation Comments POCT GLU (test code = 4298038252) 101 mg/dL 70-110 Lab Interpretation (test code = Normal 70496-5) [facility]21-12-27 17:40:01 Test Item Value Reference Range Interpretation Comments POCT GLU (test code = 8931813231) 347 mg/dL 70-110 H Lab Interpretation (test code = Abnormal 01704-6) [facility] GLUCOSE (AUTOMATED)2021-12-27 13:50:59 Test Item Value Reference Range Interpretation Comments POCT GLU (test code = 2796227230) 236 mg/dL 70-110 H Lab Interpretation (test code = Abnormal 46434-3) [facility]21-12-27 02:53:17 Test Item Value Reference Range Interpretation Comments POCT GLU (test code = 2740958804) 209 mg/dL 70-110 H Lab Interpretation (test code = Abnormal 85110-1) [facility] 22:30:29 Test Item Value Reference Range Interpretation Comments POCT GLU (test code = 4134661597) 241 mg/dL 70-110 H Lab Interpretation (test code = Abnormal 87859-5) [facility] GLUCOSE (AUTOMATED)2021-12-26 17:30:28 Test Item Value Reference Range Interpretation Comments POCT GLU (test code = 4890474506) 213 mg/dL 70-110 H Lab Interpretation (test code = Abnormal 50737-8) [facility] 13:30:29 Test Item Value Reference Range Interpretation Comments POCT GLU (test code = 7157923616) 241 mg/dL 70-110 H Lab Interpretation (test code = Abnormal 75399-3) [facility] 03:27:55 Test Item Value Reference Range Interpretation Comments POCT GLU (test code = 5178397969) 155 mg/dL 70-110 H Lab Interpretation (test code = Abnormal 48596-2) [facility]21-12-25 22:50:22 Test Item Value Reference Range Interpretation Comments POCT GLU (test code = 8875880455) 134 mg/dL 70-110 H Lab Interpretation (test code = Abnormal 29742-9) [facility]-25 21:33:40 Test Item Value Reference Range Interpretation Comments POCT GLU (test code = 6788072912) 159 mg/dL 70-110 H Lab Interpretation (test code = Abnormal 35529-1) [facility] GLUCOSE (AUTOMATED)2021-12-25 17:48:53 Test Item Value Reference Range Interpretation Comments POCT GLU (test code = 3169809419) 200 mg/dL 70-110 H Lab Interpretation (test code = Abnormal 81275-8) [facility] 13:40:04 Test Item Value Reference Range Interpretation Comments POCT GLU (test code = 8157483172) 259 mg/dL 70-110 H Lab Interpretation (test code = Abnormal 88055-2) [facility] GLUCOSE (AUTOMATED)2021-12-25 03:07:55 Test Item Value Reference Range Interpretation Comments POCT GLU (test code = 9595214708) 199 mg/dL 70-110 H Lab Interpretation (test code = Abnormal 69480-7) [facility] GLUCOSE (AUTOMATED)2021-12-24 23:10:12 Test Item Value Reference Range Interpretation Comments POCT GLU (test code = 2839716135) 186 mg/dL 70-110 H Lab Interpretation (test code = Abnormal 55960-0) [facility] GLUCOSE (AUTOMATED)2021-12-24 17:35:00 Test Item Value Reference Range Interpretation Comments POCT GLU (test code = 3415561814) 319 mg/dL 70-110 H Lab Interpretation (test code = Abnormal 66127-6) [facility] GLUCOSE (AUTOMATED)2021-12-24 13:44:41 Test Item Value Reference Range Interpretation Comments POCT GLU (test code = 5209393088) 221 mg/dL 70-110 H Lab Interpretation (test code = Abnormal 00364-9) [facility] GLUCOSE (AUTOMATED)2021-12-24 03:12:50 Test Item Value Reference Range Interpretation Comments POCT GLU (test code = 7210995402) 168 mg/dL 70-110 H Lab Interpretation (test code = Abnormal 92345-8) [facility] GLUCOSE (AUTOMATED)2021-12-23 22:31:49 Test Item Value Reference Range Interpretation Comments POCT GLU (test code = 7453200878) 149 mg/dL 70-110 H Lab Interpretation (test code = Abnormal 30180-6) [facility] GLUCOSE (AUTOMATED)2021-12-23 22:31:49 Test Item Value Reference Range Interpretation Comments POCT GLU (test code = 2366493161) 149 mg/dL 70-110 H Lab Interpretation (test code = Abnormal 41032-8) [facility] GLUCOSE (AUTOMATED)2021-12-23 17:55:24 Test Item Value Reference Range Interpretation Comments POCT GLU (test code = 1128918847) 192 mg/dL 70-110 H Lab Interpretation (test code = Abnormal 16599-1) [facility] GLUCOSE (AUTOMATED)2021-12-23 17:55:24 Test Item Value Reference Range Interpretation Comments POCT GLU (test code = 1804330258) 192 mg/dL 70-110 H Lab Interpretation (test code = Abnormal 59216-9) [facility] GLUCOSE (AUTOMATED)2021-12-23 13:50:36 Test Item Value Reference Range Interpretation Comments POCT GLU (test code = 6533911736) 214 mg/dL 70-110 H Lab Interpretation (test code = Abnormal 34291-8) [facility] GLUCOSE (AUTOMATED)2021-12-23 13:50:36 Test Item Value Reference Range Interpretation Comments POCT GLU (test code = 8165020856) 214 mg/dL 70-110 H Lab Interpretation (test code = Abnormal 35609-8) [facility] METABOLIC PANEL (NA, K, CL, CO2, GLUCOSE, BUN, CREATININE, CA)2021-12-23 11:02:39 Test Item Value Reference Range Interpretation Comments NA (test code = 134 mmol/L 135-145 L 1448995857) K (test code = 4.7 mmol/L 3.5-5.0 1189141861) CL (test code = 100 mmol/L 98-108 2517895077) CO2 TOTAL (test code = 26 mmol/L 23-31 3194116691) AGAP (test code = 2-16 0197165680) BUN (test code = 23 mg/dL 7-23 7117230570) GLUCOSE (test code = 187 mg/dL 70-110 H 1526551917) CREATININE (test code = 1.07 mg/dL 0.60-1.25 6380214686) CALCIUM (test code = 9.5 mg/dL 8.6-10.6 0810585416) eGFR (test code = mL/min/1.73m2 7244558013) LUIS ANGEL (test code = LUIS ANGEL) Association of Glomerular Filtration Rate (GFR) and Staging of Kidney Disease* + --+ --+ ------+| GFR (mL/min/1.73 m2) ?| With Kidney Damage ?| ?Without Kidney Damage+ --------+ --------+ +| ?>90 ?| ?Stage one ?| ? Normal ?+ ---+ ---+ -------+| ?60-89 ?| ?Stage two ?| ? Decreased GFR ? + --+ --+ ------+| ?30-59 ?| ?Stage three ?| ? Stage three ? + --+ --+ ------+| ?15-29 ?| ?Stage four ? | ? Stage four ?+ ---+ ---+ -------+| ?<15 (or dialysis) ? ?| ?Stage five ? | ? Stage five ?+ ---+ ---+ -------+ *Each stage assumes the associated GFR level has been in effect for at least three months. ?Stages 1 to 5, with or without kidney disease, indicate chronic kidney disease. Notes: Determination of stages one and two (with eGFR >59mL/min/1.73 m2) requires estimation of kidney damage for at least three months as defined by structural or functional abnormalities of the kidney, manifested by either:Pathological abnormalities or Markers of kidney damage (including abnormalities in the composition of the blood or urine or abnormalities in imaging tests). Lab Interpretation Abnormal (test code = 78093-8) [facility] METABOLIC PANEL (NA, K, CL, CO2, GLUCOSE, BUN, CREATININE, CA)2021-12-23 11:02:39 Test Item Value Reference Range Interpretation Comments NA (test code = 134 mmol/L 135-145 L 2531295380) K (test code = 4.7 mmol/L 3.5-5.0 4512133599) CL (test code = 100 mmol/L 98-108 4287508028) CO2 TOTAL (test code = 26 mmol/L 23-31 1405699069) AGAP (test code = 2-16 4799291328) BUN (test code = 23 mg/dL 7-23 4651125928) GLUCOSE (test code = 187 mg/dL 70-110 H 6612721958) CREATININE (test code = 1.07 mg/dL 0.60-1.25 6472304072) CALCIUM (test code = 9.5 mg/dL 8.6-10.6 9975367357) eGFR (test code = mL/min/1.73m2 4962794857) LUIS ANGEL (test code = LUIS ANGEL) Association of Glomerular Filtration Rate (GFR) and Staging of Kidney Disease* + --+ --+ ------+| GFR (mL/min/1.73 m2) ?| With Kidney Damage ?| ?Without Kidney Damage+ --------+ --------+ +| ?>90 ?| ?Stage one ?| ? Normal ?+ ---+ ---+ -------+| ?60-89 ?| ?Stage two ?| ? Decreased GFR ? + --+ --+ ------+| ?30-59 ?| ?Stage three ?| ? Stage three ? + --+ --+ ------+| ?15-29 ?| ?Stage four ? | ? Stage four ?+ ---+ ---+ -------+| ?<15 (or dialysis) ? ?| ?Stage five ? | ? Stage five ?+ ---+ ---+ -------+ *Each stage assumes the associated GFR level has been in effect for at least three months. ?Stages 1 to 5, with or without kidney disease, indicate chronic kidney disease. Notes: Determination of stages one and two (with eGFR >59mL/min/1.73 m2) requires estimation of kidney damage for at least three months as defined by structural or functional abnormalities of the kidney, manifested by either:Pathological abnormalities or Markers of kidney damage (including abnormalities in the composition of the blood or urine or abnormalities in imaging tests). Lab Interpretation Abnormal (test code = 74529-4) [facility] WITH [id number] 10:10:15 Test Item Value Reference Range Interpretation Comments WBC (test code = See_Comment H [Automated 9190-2) message] The sy stem which generated this result transmitted reference range : 4.20 - 10.70 10*3/?L. The reference range was not used to interpret this result as normal/abnormal . RBC (test code = See_Comment L [Automated 169-8) message] The sy stem which generated this result transmitted reference range : 4.26 - 5.52 10*6/?L. The reference range was not used to interpret this result as normal/abnormal . HGB (test code = 9.0 g/dL 12.2-16.4 L 718-7) HCT (test code = 26.9 % 38.4-49.3 L 4544-3) MCV (test code = 90.3 fL 81.7-95.6 787-2) MCH (test code = 30.2 pg 26.1-32.7 785-6) MCHC (test code = 33.5 g/dL 31.2-35.0 786-4) RDW-SD (test code = 50.7 fL 38.5-51.6 17014-4) RDW-CV (test code = 15.5 % 12.1-15.4 H 788-0) PLT (test code = See_Comment H [Automated 777-3) message] The sy stem which generated this result transmitted reference range : 150 - 328 10*3/ ?L. The reference r sherice was not used to interpret this result as normal/abnormal . MPV (test code = 10.8 fL 9.8-13.0 52426-1) NRBC/100 WBC (test See_Comment [Automat ed code = 7045678970) message] The system which generated this result transmitted reference range : 0.0 - 10.0 /100 WBCs. The refer ence range was not u sed to interpret th is result as normal/abnormal . NRBC x10^3 (test code See_Comment [Auto mated = 3304674304) message] The s ystem which generated this result transmitted reference range : 10*3/?L. The reference range was not used to interpret this result as normal/abnormal . GRAN MAT (NEUT) % 69.1 % (test code = 770-8) IMM GRAN % (test code 0.40 % = 8438244388) LYMPH % (test code = 16.8 % 736-9) MONO % (test code = 11.9 % 5905-5) EOS % (test code = 1.3 % 713-8) BASO % (test code = 0.5 % 706-2) GRAN MAT x10^3(ANC) 8.54 10*3/uL 1.99-6.95 H (test code = 0206439683) IMM GRAN x10^3 (test 0.05 10*3/uL 0.00-0.06 code = 6799019770) LYMPH x10^3 (test code 2.07 10*3/uL 1.09-3.23 = 731-0) MONO x10^3 (test code 1.47 10*3/uL 0.36-1.02 H = 742-7) EOS x10^3 (test code = 0.16 10*3/uL 0.06-0.53 711-2) BASO x10^3 (test code 0.06 10*3/uL 0.01-0.09 = 704-7) Lab Interpretation Abnormal (test code = 70672-3) [facility] WITH [id number] 10:10:15 Test Item Value Reference Range Interpretation Comments WBC (test code = See_Comment H [Automated 6690-2) message] The sy stem which generated this result transmitted reference range : 4.20 - 10.70 10*3/?L. The reference range was not used to interpret this result as normal/abnormal . RBC (test code = See_Comment L [Automated 789-8) message] The sy stem which generated this result transmitted reference range : 4.26 - 5.52 10*6/?L. The reference range was not used to interpret this result as normal/abnormal . HGB (test code = 9.0 g/dL 12.2-16.4 L 718-7) HCT (test code = 26.9 % 38.4-49.3 L 4544-3) MCV (test code = 90.3 fL 81.7-95.6 787-2) MCH (test code = 30.2 pg 26.1-32.7 785-6) MCHC (test code = 33.5 g/dL 31.2-35.0 786-4) RDW-SD (test code = 50.7 fL 38.5-51.6 76129-7) RDW-CV (test code = 15.5 % 12.1-15.4 H 788-0) PLT (test code = See_Comment H [Automated 777-3) message] The sy stem which generated this result transmitted reference range : 150 - 328 10*3/ ?L. The reference r sherice was not used to interpret this result as normal/abnormal . MPV (test code = 10.8 fL 9.8-13.0 92816-8) NRBC/100 WBC (test See_Comment [Automat ed code = 3734466825) message] The system which generated this result transmitted reference range : 0.0 - 10.0 /100 WBCs. The refer ence range was not u sed to interpret th is result as normal/abnormal . NRBC x10^3 (test code See_Comment [Auto mated = 2102255757) message] The s ystem which generated this result transmitted reference range : 10*3/?L. The reference range was not used to interpret this result as normal/abnormal . GRAN MAT (NEUT) % 69.1 % (test code = 770-8) IMM GRAN % (test code 0.40 % = 7630153100) LYMPH % (test code = 16.8 % 736-9) MONO % (test code = 11.9 % 5905-5) EOS % (test code = 1.3 % 713-8) BASO % (test code = 0.5 % 706-2) GRAN MAT x10^3(ANC) 8.54 10*3/uL 1.99-6.95 H (test code = 1833434868) IMM GRAN x10^3 (test 0.05 10*3/uL 0.00-0.06 code = 4990437221) LYMPH x10^3 (test code 2.07 10*3/uL 1.09-3.23 = 731-0) MONO x10^3 (test code 1.47 10*3/uL 0.36-1.02 H = 742-7) EOS x10^3 (test code = 0.16 10*3/uL 0.06-0.53 711-2) BASO x10^3 (test code 0.06 10*3/uL 0.01-0.09 = 704-7) Lab Interpretation Abnormal (test code = 95008-5) [facility] GLUCOSE (AUTOMATED)2021-12-23 03:00:30 Test Item Value Reference Range Interpretation Comments POCT GLU (test code = 2443101015) 232 mg/dL 70-110 H Lab Interpretation (test code = Abnormal 08398-1) [facility] GLUCOSE (AUTOMATED)2021-12-23 03:00:30 Test Item Value Reference Range Interpretation Comments POCT GLU (test code = 6650531612) 232 mg/dL 70-110 H Lab Interpretation (test code = Abnormal 79186-9) [facility] GLUCOSE (AUTOMATED)2021-12-22 22:43:19 Test Item Value Reference Range Interpretation Comments POCT GLU (test code = 8501946925) 147 mg/dL 70-110 H Lab Interpretation (test code = Abnormal 38666-9) [facility] GLUCOSE (AUTOMATED)2021-12-22 22:43:19 Test Item Value Reference Range Interpretation Comments POCT GLU (test code = 4329000521) 147 mg/dL 70-110 H Lab Interpretation (test code = Abnormal 77568-3) [facility] GLUCOSE (AUTOMATED)2021-12-22 17:42:23 Test Item Value Reference Range Interpretation Comments POCT GLU (test code = 7966269580) 152 mg/dL 70-110 H Lab Interpretation (test code = Abnormal 68982-7) [facility] GLUCOSE (AUTOMATED)2021-12-22 17:42:23 Test Item Value Reference Range Interpretation Comments POCT GLU (test code = 6455755348) 152 mg/dL 70-110 H Lab Interpretation (test code = Abnormal 16053-3) [facility] GLUCOSE (AUTOMATED)2021-12-22 13:55:37 Test Item Value Reference Range Interpretation Comments POCT GLU (test code = 6192783503) 207 mg/dL 70-110 H Lab Interpretation (test code = Abnormal 28703[facility] 13:55:37 Test Item Value Reference Range Interpretation Comments POCT GLU (test code = 3904100355) 207 mg/dL 70-110 H Lab Interpretation (test code = Abnormal 08505-6) [facility] GLUCOSE (AUTOMATED)2021-12-22 02:51:14 Test Item Value Reference Range Interpretation Comments POCT GLU (test code = 2030054660) 280 mg/dL 70-110 H Lab Interpretation (test code = Abnormal 66782-9) [facility] GLUCOSE (AUTOMATED)2021-12-22 02:51:14 Test Item Value Reference Range Interpretation Comments POCT GLU (test code = 3895577259) 280 mg/dL 70-110 H Lab Interpretation (test code = Abnormal 00424-0) [facility] GLUCOSE (AUTOMATED)2021-12-22 00:05:28 Test Item Value Reference Range Interpretation Comments POCT GLU (test code = 8580619147) 156 mg/dL 70-110 H Lab Interpretation (test code = Abnormal 62613-9) [facility] GLUCOSE (AUTOMATED)2021-12-22 00:05:28 Test Item Value Reference Range Interpretation Comments POCT GLU (test code = 5428817190) 156 mg/dL 70-110 H Lab Interpretation (test code = Abnormal 09684-0) [facility] GLUCOSE (AUTOMATED)2021-12-21 22:12:40 Test Item Value Reference Range Interpretation Comments POCT GLU (test code = 0203248571) 170 mg/dL 70-110 H Lab Interpretation (test code = Abnormal 74941-4) [facility] GLUCOSE (AUTOMATED)2021-12-21 22:12:40 Test Item Value Reference Range Interpretation Comments POCT GLU (test code = 4154213685) 170 mg/dL 70-110 H Lab Interpretation (test code = Abnormal 68668-6) [facility] [id number] 19:33:27 Test Item Value Reference Range Interpretation Comments CRP (test code = 16.0 mg/dL See_Comment H [Automated message] 9354074534) The system AKT generated this result transmit ender reference range : <=0.8. The refe rence range was not u sed to interpret th is result as normal/abnormal . Lab Interpretation Abnormal (test code = 34801-0) [facility] [id number] 19:33:27 Test Item Value Reference Range Interpretation Comments CRP (test code = 16.0 mg/dL See_Comment H [Automated message] 2840174095) The system AKT generated this result transmit ender reference range : <=0.8. The refe rence range was not u sed to interpret th is result as normal/abnormal . Lab Interpretation Abnormal (test code = 26200-8) [facility] GLUCOSE (AUTOMATED)2021-12-21 17:20:39 Test Item Value Reference Range Interpretation Comments POCT GLU (test code = 6736394841) 258 mg/dL 70-110 H Lab Interpretation (test code = Abnormal 33303-9) [facility] GLUCOSE (AUTOMATED)2021-12-21 17:20:39 Test Item Value Reference Range Interpretation Comments POCT GLU (test code = 6179132277) 258 mg/dL 70-110 H Lab Interpretation (test code = Abnormal 77922-5) [facility] GLUCOSE (AUTOMATED)2021-12-21 15:27:40 Test Item Value Reference Range Interpretation Comments POCT GLU (test code = 3253245306) 338 mg/dL 70-110 H Lab Interpretation (test code = Abnormal 73242-5) [facility] GLUCOSE (AUTOMATED)2021-12-21 15:27:40 Test Item Value Reference Range Interpretation Comments POCT GLU (test code = 8739769351) 338 mg/dL 70-110 H Lab Interpretation (test code = Abnormal 06374-2) [facility] [id number] 13:42:08 Test Item Value Reference Range Interpretation Comments ESR (test code = See_Comment H [Automated message] 28251-7) The system AKT generated this result transmitted ref erence range: 0 - 10 m m/HR. The reference r sherice was not used to interpret this result as normal/abnor mal. Lab Interpretation (test Abnormal code = 37890-7) [facility] [id number] 13:42:08 Test Item Value Reference Range Interpretation Comments ESR (test code = See_Comment H [Automated message] 80977-6) The system AKT generated this result transmitted ref erence range: 0 - 10 m m/HR. The reference r sherice was not used to interpret this result as normal/abnor mal. Lab Interpretation (test Abnormal code = 76370-9) [facility] GLUCOSE (AUTOMATED)2021-12-21 13:25:03 Test Item Value Reference Range Interpretation Comments POCT GLU (test code = 4374608435) 288 mg/dL 70-110 H Lab Interpretation (test code = Abnormal 40382-8) [facility] GLUCOSE (AUTOMATED)2021-12-21 13:25:03 Test Item Value Reference Range Interpretation Comments POCT GLU (test code = 9684171091) 288 mg/dL 70-110 H Lab Interpretation (test code = Abnormal 97490-5) [facility] METABOLIC PANEL (NA, K, CL, CO2, GLUCOSE, BUN, CREATININE, CA)2021-12-21 12:43:35 Test Item Value Reference Range Interpretation Comments NA (test code = 128 mmol/L 135-145 L 3810318153) K (test code = 4.6 mmol/L 3.5-5.0 6453551785) CL (test code = 96 mmol/L 98-108 L 3412184812) CO2 TOTAL (test code = 28 mmol/L 23-31 4007735851) AGAP (test code = 2-16 1292417814) BUN (test code = 22 mg/dL 7-23 6257118120) GLUCOSE (test code = 284 mg/dL 70-110 H 4588453843) CREATININE (test code = 1.01 mg/dL 0.60-1.25 5233905073) CALCIUM (test code = 9.5 mg/dL 8.6-10.6 2366976517) eGFR (test code = mL/min/1.73m2 0137199943) LUIS ANGEL (test code = LUIS ANGEL) Association of Glomerular Filtration Rate (GFR) and Staging of Kidney Disease* + --+ --+ ------+| GFR (mL/min/1.73 m2) ?| With Kidney Damage ?| ?Without Kidney Damage+ --------+ --------+ +| ?>90 ?| ?Stage one ?| ? Normal ?+ ---+ ---+ -------+| ?60-89 ?| ?Stage two ?| ? Decreased GFR ? + --+ --+ ------+| ?30-59 ?| ?Stage three ?| ? Stage three ? + --+ --+ ------+| ?15-29 ?| ?Stage four ? | ? Stage four ?+ ---+ ---+ -------+| ?<15 (or dialysis) ? ?| ?Stage five ? | ? Stage five ?+ ---+ ---+ -------+ *Each stage assumes the associated GFR level has been in effect for at least three months. ?Stages 1 to 5, with or without kidney disease, indicate chronic kidney disease. Notes: Determination of stages one and two (with eGFR >59mL/min/1.73 m2) requires estimation of kidney damage for at least three months as defined by structural or functional abnormalities of the kidney, manifested by either:Pathological abnormalities or Markers of kidney damage (including abnormalities in the composition of the blood or urine or abnormalities in imaging tests). Lab Interpretation Abnormal (test code = 12469-2) [facility] METABOLIC PANEL (NA, K, CL, CO2, GLUCOSE, BUN, CREATININE, CA)2021-12-21 12:43:35 Test Item Value Reference Range Interpretation Comments NA (test code = 128 mmol/L 135-145 L 9666563055) K (test code = 4.6 mmol/L 3.5-5.0 6082634132) CL (test code = 96 mmol/L 98-108 L 6810768594) CO2 TOTAL (test code = 28 mmol/L 23-31 1337129895) AGAP (test code = 2-16 1660544183) BUN (test code = 22 mg/dL 7-23 4137990619) GLUCOSE (test code = 284 mg/dL 70-110 H 2463547841) CREATININE (test code = 1.01 mg/dL 0.60-1.25 6905099425) CALCIUM (test code = 9.5 mg/dL 8.6-10.6 4428510555) eGFR (test code = mL/min/1.73m2 9642762197) LUIS ANGEL (test code = LUIS ANGEL) Association of Glomerular Filtration Rate (GFR) and Staging of Kidney Disease* + --+ --+ ------+| GFR (mL/min/1.73 m2) ?| With Kidney Damage ?| ?Without Kidney Damage+ --------+ --------+ +| ?>90 ?| ?Stage one ?| ? Normal ?+ ---+ ---+ -------+| ?60-89 ?| ?Stage two ?| ? Decreased GFR ? + --+ --+ ------+| ?30-59 ?| ?Stage three ?| ? Stage three ? + --+ --+ ------+| ?15-29 ?| ?Stage four ? | ? Stage four ?+ ---+ ---+ -------+| ?<15 (or dialysis) ? ?| ?Stage five ? | ? Stage five ?+ ---+ ---+ -------+ *Each stage assumes the associated GFR level has been in effect for at least three months. ?Stages 1 to 5, with or without kidney disease, indicate chronic kidney disease. Notes: Determination of stages one and two (with eGFR >59mL/min/1.73 m2) requires estimation of kidney damage for at least three months as defined by structural or functional abnormalities of the kidney, manifested by either:Pathological abnormalities or Markers of kidney damage (including abnormalities in the composition of the blood or urine or abnormalities in imaging tests). Lab Interpretation Abnormal (test code = 51086-0) [facility] WITH [id number] 11:54:11 Test Item Value Reference Range Interpretation Comments WBC (test code = See_Comment H [Automated 6690-2) message] The sy stem which generated this result transmitted reference range : 4.20 - 10.70 10*3/?L. The reference range was not used to interpret this result as normal/abnormal . RBC (test code = See_Comment L [Automated 789-8) message] The sy stem which generated this result transmitted reference range : 4.26 - 5.52 10*6/?L. The reference range was not used to interpret this result as normal/abnormal . HGB (test code = 9.8 g/dL 12.2-16.4 L 718-7) HCT (test code = 29.1 % 38.4-49.3 L 4544-3) MCV (test code = 89.8 fL 81.7-95.6 787-2) MCH (test code = 30.2 pg 26.1-32.7 785-6) MCHC (test code = 33.7 g/dL 31.2-35.0 786-4) RDW-SD (test code = 51.5 fL 38.5-51.6 13414-1) RDW-CV (test code = 15.7 % 12.1-15.4 H 788-0) PLT (test code = See_Comment H [Automated 777-3) message] The sy stem which generated this result transmitted reference range : 150 - 328 10*3/ ?L. The reference r sherice was not used to interpret this result as normal/abnormal . MPV (test code = 11.4 fL 9.8-13.0 70894-8) NRBC/100 WBC (test See_Comment [Automat ed code = 7736083769) message] The system which generated this result transmitted reference range : 0.0 - 10.0 /100 WBCs. The refer ence range was not u sed to interpret th is result as normal/abnormal . NRBC x10^3 (test code See_Comment [Auto mated = 9689023044) message] The s ystem which generated this result transmitted reference range : 10*3/?L. The reference range was not used to interpret this result as normal/abnormal . GRAN MAT (NEUT) % 68.5 % (test code = 770-8) IMM GRAN % (test code 0.40 % = 3242486988) LYMPH % (test code = 19.8 % 736-9) MONO % (test code = 9.6 % 5905-5) EOS % (test code = 1.3 % 713-8) BASO % (test code = 0.4 % 706-2) GRAN MAT x10^3(ANC) 7.67 10*3/uL 1.99-6.95 H (test code = 5448871240) IMM GRAN x10^3 (test 0.05 10*3/uL 0.00-0.06 code = 4986631465) LYMPH x10^3 (test code 2.21 10*3/uL 1.09-3.23 = 731-0) MONO x10^3 (test code 1.07 10*3/uL 0.36-1.02 H = 742-7) EOS x10^3 (test code = 0.14 10*3/uL 0.06-0.53 711-2) BASO x10^3 (test code 0.04 10*3/uL 0.01-0.09 = 704-7) Lab Interpretation Abnormal (test code = 78943-6) [facility] WITH [id number] 11:54:11 Test Item Value Reference Range Interpretation Comments WBC (test code = See_Comment H [Automated 6690-2) message] The sy stem which generated this result transmitted reference range : 4.20 - 10.70 10*3/?L. The reference range was not used to interpret this result as normal/abnormal . RBC (test code = See_Comment L [Automated 789-8) message] The sy stem which generated this result transmitted reference range : 4.26 - 5.52 10*6/?L. The reference range was not used to interpret this result as normal/abnormal . HGB (test code = 9.8 g/dL 12.2-16.4 L 718-7) HCT (test code = 29.1 % 38.4-49.3 L 4544-3) MCV (test code = 89.8 fL 81.7-95.6 787-2) MCH (test code = 30.2 pg 26.1-32.7 785-6) MCHC (test code = 33.7 g/dL 31.2-35.0 786-4) RDW-SD (test code = 51.5 fL 38.5-51.6 14561-4) RDW-CV (test code = 15.7 % 12.1-15.4 H 788-0) PLT (test code = See_Comment H [Automated 777-3) message] The sy stem which generated this result transmitted reference range : 150 - 328 10*3/ ?L. The reference r sherice was not used to interpret this result as normal/abnormal . MPV (test code = 11.4 fL 9.8-13.0 99569-5) NRBC/100 WBC (test See_Comment [Automat ed code = 9835574540) message] The system which generated this result transmitted reference range : 0.0 - 10.0 /100 WBCs. The refer ence range was not u sed to interpret th is result as normal/abnormal . NRBC x10^3 (test code See_Comment [Auto mated = 6413667664) message] The s ystem which generated this result transmitted reference range : 10*3/?L. The reference range was not used to interpret this result as normal/abnormal . GRAN MAT (NEUT) % 68.5 % (test code = 770-8) IMM GRAN % (test code 0.40 % = 8087231214) LYMPH % (test code = 19.8 % 736-9) MONO % (test code = 9.6 % 5905-5) EOS % (test code = 1.3 % 713-8) BASO % (test code = 0.4 % 706-2) GRAN MAT x10^3(ANC) 7.67 10*3/uL 1.99-6.95 H (test code = 5541646822) IMM GRAN x10^3 (test 0.05 10*3/uL 0.00-0.06 code = 8165034060) LYMPH x10^3 (test code 2.21 10*3/uL 1.09-3.23 = 731-0) MONO x10^3 (test code 1.07 10*3/uL 0.36-1.02 H = 742-7) EOS x10^3 (test code = 0.14 10*3/uL 0.06-0.53 711-2) BASO x10^3 (test code 0.04 10*3/uL 0.01-0.09 = 704-7) Lab Interpretation Abnormal (test code = 92865-3) [facility] GLUCOSE (AUTOMATED)2021-12-21 02:59:28 Test Item Value Reference Range Interpretation Comments POCT GLU (test code = 9854619551) 305 mg/dL 70-110 H Lab Interpretation (test code = Abnormal 68096-2) [facility] GLUCOSE (AUTOMATED)2021-12-21 02:59:28 Test Item Value Reference Range Interpretation Comments POCT GLU (test code = 1472970073) 305 mg/dL 70-110 H Lab Interpretation (test code = Abnormal 56708-3) [facility] GLUCOSE (AUTOMATED)2021-12-20 22:39:27 Test Item Value Reference Range Interpretation Comments POCT GLU (test code = 8023833704) 265 mg/dL 70-110 H Lab Interpretation (test code = Abnormal 19650-5) [facility] GLUCOSE (AUTOMATED)2021-12-20 22:39:27 Test Item Value Reference Range Interpretation Comments POCT GLU (test code = 4076313133) 265 mg/dL 70-110 H Lab Interpretation (test code = Abnormal 34057-7) [facility] GLUCOSE (AUTOMATED)2021-12-20 18:18:08 Test Item Value Reference Range Interpretation Comments POCT GLU (test code = 3096548767) 253 mg/dL 70-110 H Lab Interpretation (test code = Abnormal 99183-3) [facility] GLUCOSE (AUTOMATED)2021-12-20 18:18:08 Test Item Value Reference Range Interpretation Comments POCT GLU (test code = 7823697575) 253 mg/dL 70-110 H Lab Interpretation (test code = Abnormal 93214-3) [facility] [facility]21-12-20 13:39:04 Test Item Value Reference Range Interpretation Comments POCT GLU (test code = 9359132320) 256 mg/dL 70-110 H Lab Interpretation (test code = Abnormal 81319-7) [facility] GLUCOSE (AUTOMATED)2021-12-20 13:39:04 Test Item Value Reference Range Interpretation Comments POCT GLU (test code = 1040684521) 256 mg/dL 70-110 H Lab Interpretation (test code = Abnormal 05336-4) [facility] GLUCOSE (AUTOMATED)2021-12-20 03:26:59 Test Item Value Reference Range Interpretation Comments POCT GLU (test code = 4770695002) 254 mg/dL 70-110 H Lab Interpretation (test code = Abnormal 69742-6) [facility] GLUCOSE (AUTOMATED)2021-12-20 03:26:59 Test Item Value Reference Range Interpretation Comments POCT GLU (test code = 4109736522) 254 mg/dL 70-110 H Lab Interpretation (test code = Abnormal 91553-2) [facility] GLUCOSE (AUTOMATED)2021-12-19 23:24:21 Test Item Value Reference Range Interpretation Comments POCT GLU (test code = 3727095216) 225 mg/dL 70-110 H Lab Interpretation (test code = Abnormal 38025-8) [facility] GLUCOSE (AUTOMATED)2021-12-19 23:24:21 Test Item Value Reference Range Interpretation Comments POCT GLU (test code = 4099705563) 225 mg/dL 70-110 H Lab Interpretation (test code = Abnormal 76088-7) [facility] GLUCOSE (AUTOMATED)2021-12-19 18:03:34 Test Item Value Reference Range Interpretation Comments POCT GLU (test code = 3260938027) 234 mg/dL 70-110 H Lab Interpretation (test code = Abnormal 57364-8) [facility] GLUCOSE (AUTOMATED)2021-12-19 18:03:34 Test Item Value Reference Range Interpretation Comments POCT GLU (test code = 8634142633) 234 mg/dL 70-110 H Lab Interpretation (test code = Abnormal 02093-5) [facility] GLUCOSE (AUTOMATED)2021-12-19 14:05:51 Test Item Value Reference Range Interpretation Comments POCT GLU (test code = 8855925309) 289 mg/dL 70-110 H Lab Interpretation (test code = Abnormal 07347-8) [facility] GLUCOSE (AUTOMATED)2021-12-19 14:05:51 Test Item Value Reference Range Interpretation Comments POCT GLU (test code = 0889550458) 289 mg/dL 70-110 H Lab Interpretation (test code = Abnormal 46202-6) [facility] GLUCOSE (AUTOMATED)2021-12-19 01:55:21 Test Item Value Reference Range Interpretation Comments POCT GLU (test code = 1714869900) 284 mg/dL 70-110 H Lab Interpretation (test code = Abnormal 93794-4) [facility] GLUCOSE (AUTOMATED)2021-12-19 01:55:21 Test Item Value Reference Range Interpretation Comments POCT GLU (test code = 3777096801) 284 mg/dL 70-110 H Lab Interpretation (test code = Abnormal 47772-6) [facility] GLUCOSE (AUTOMATED)2021-12-18 22:33:51 Test Item Value Reference Range Interpretation Comments POCT GLU (test code = 1548347271) 359 mg/dL 70-110 H Lab Interpretation (test code = Abnormal 98966-8) [facility] GLUCOSE (AUTOMATED)2021-12-18 22:33:51 Test Item Value Reference Range Interpretation Comments POCT GLU (test code = 6687336751) 359 mg/dL 70-110 H Lab Interpretation (test code = Abnormal 77491-8) [facility] GLUCOSE (AUTOMATED)2021-12-17 20:41:52 Test Item Value Reference Range Interpretation Comments POCT GLU (test code = 1191165237) 281 mg/dL 70-110 H Lab Interpretation (test code = Abnormal 17369-1) [facility] 12:48:28 Test Item Value Reference Range Interpretation Comments POCT GLU (test code = 0219714954) 265 mg/dL 70-110 H Lab Interpretation (test code = Abnormal 50146-0) [facility] METABOLIC PANEL (NA, K, CL, CO2, GLUCOSE, BUN, CREATININE, CA)2021-12-17 11:26:46 Test Item Value Reference Range Interpretation Comments NA (test code = 132 mmol/L 135-145 L 3180527101) K (test code = 4.1 mmol/L 3.5-5.0 5121657556) CL (test code = 101 mmol/L 98-108 5067916731) CO2 TOTAL (test code = 27 mmol/L 23-31 2377791578) AGAP (test code = 2-16 6452242409) BUN (test code = 19 mg/dL 7-23 8076954804) GLUCOSE (test code = 267 mg/dL 70-110 H 8335606694) CREATININE (test code = 1.07 mg/dL 0.60-1.25 7958925670) CALCIUM (test code = 9.1 mg/dL 8.6-10.6 1063853040) eGFR (test code = mL/min/1.73m2 7488371430) LUIS ANGEL (test code = LUIS ANGEL) Association of Glomerular Filtration Rate (GFR) and Staging of Kidney Disease* + --+ --+ ------+| GFR (mL/min/1.73 m2) ?| With Kidney Damage ?| ?Without Kidney Damage+ --------+ --------+ +| ?>90 ?| ?Stage one ?| ? Normal ?+ ---+ ---+ -------+| ?60-89 ?| ?Stage two ?| ? Decreased GFR ? + --+ --+ ------+| ?30-59 ?| ?Stage three ?| ? Stage three ? + --+ --+ ------+| ?15-29 ?| ?Stage four ? | ? Stage four ?+ ---+ ---+ -------+| ?<15 (or dialysis) ? ?| ?Stage five ? | ? Stage five ?+ ---+ ---+ -------+ *Each stage assumes the associated GFR level has been in effect for at least three months. ?Stages 1 to 5, with or without kidney disease, indicate chronic kidney disease. Notes: Determination of stages one and two (with eGFR >59mL/min/1.73 m2) requires estimation of kidney damage for at least three months as defined by structural or functional abnormalities of the kidney, manifested by either:Pathological abnormalities or Markers of kidney damage (including abnormalities in the composition of the blood or urine or abnormalities in imaging tests). Lab Interpretation Abnormal (test code = 14201-4) [facility] WITHOUT [id number] 11:07:07 Test Item Value Reference Range Interpretation Comments WBC (test code = 6690-2) See_Comment H [A utomated message] The system AKT generated this result transmit ender reference range : 4.20 - 10.70 10*3/?L. The reference range was not used to interpret this result as normal/abnormal . RBC (test code = 789-8) See_Comment L [Au tomated message] The system AKT generated this result transmit ender reference range : 4.26 - 5.52 10* 6/?L. The reference r sherice was not used to interpret this result as normal/abnormal . HGB (test code = 718-7) 9.6 g/dL 12.2-16.4 L HCT (test code = 4544-3) 28.4 % 38.4-49.3 L MCH (test code = 785-6) 30.8 pg 26.1-32.7 MCV (test code = 787-2) 91.0 fL 81.7-95.6 MCHC (test code = 786-4) 33.8 g/dL 31.2-35.0 PLT (test code = 777-3) See_Comment H [Au tomated message] The system AKT generated this result transmit ender reference range : 150 - 328 10*3/?L. The reference range was not used to interpret this result as normal/abnormal . MPV (test code = 10.7 fL 9.8-13.0 95672-9) RDW-CV (test code = 16.5 % 12.1-15.4 H 788-0) RDW-SD (test code = 54.4 fL 38.5-51.6 H 78004-1) NRBC x10^3 (test code = See_Comment [Au tomated message] 6763913364) The system AKT generated this result transmit ender reference range : 10*3/?L. The reference range was not used to interpret this result as normal/abnormal . NRBC/100 WBC (test code See_Comment [Au tomated message] = 3805138448) The system [employer] generated this result transmit ender reference range : 0.0 - 10.0 /100 WBC s. The reference r sherice was not used to interpret this result as normal/abnormal . IPF % (test code = 6363279218) Lab Interpretation (test Abnormal code = 94322-8) [facility] GLUCOSE (AUTOMATED)2021-12-17 05:40:19 Test Item Value Reference Range Interpretation Comments POCT GLU (test code = 6937831892) 352 mg/dL 70-110 H Lab Interpretation (test code = Abnormal 32126-9) [facility] GLUCOSE (AUTOMATED)2021-12-17 02:09:23 Test Item Value Reference Range Interpretation Comments POCT GLU (test code = 3118136570) 330 mg/dL 70-110 H Lab Interpretation (test code = Abnormal 71124-0) [facility] GLUCOSE (AUTOMATED)2021-12-16 21:32:11 Test Item Value Reference Range Interpretation Comments POCT GLU (test code = 3981333193) 182 mg/dL 70-110 H Lab Interpretation (test code = Abnormal 69450-1) [facility]-16 21:12:53 Test Item Value Reference Range Interpretation Comments Height (test code = in 3104714137) Weight (test code = lbs 9024505576) Systolic BP (test code mmHg = 5107449002) Diastolic BP (test code mmHg = 4689281243) Heart Rate (test code = bpm 5880148107) LVOT stroke volume 55.20 cm3 (test code = 6861640955) EF(Teich) (test code = 55.60 % 3151400418) LVIDD (test code = 5.30 cm 3069828549) LVIDS (test code = 3.70 cm 2721024252) Left Ventricular End 59.6 mL Systolic Volume by Teichholz Method (test code = 8690375) Left Ventricular End 134.2 mL Diastolic Volume by Teichholz Method (test code = 2173709) IVS (test code = 1.14 cm 6123690497) LVPWD (test code = 1.10 cm 3979634872) LVOT diameter (test 1.91 cm code = 5685638365) LVOT area (test code = 2.90 cm2 6537144274) FS (test code = 29 % 3171352350) MV Peak E Erik (test 89.2 cm/s code = 3357273497) MV Peak A Erik (test 83.7 cm/s code = 9235230809) E/A ratio (test code = ratio 5460295876) E wave decelartion time 0.22 s (test code = 6720741440) LA volume (BP) (test 50.8 mL code = 2575535297) LVOT peak erik (test 102.8 cm/s code = 7958638511) LVOT mn grad (test code mmHg = 9284263374) LA size (test code = 3.8 cm 0908602083) LAV(MOD-sp2) (test code 56.50 mL = 0041939763) LAV(MOD-sp4) (test code 39.90 mL = 0224011960) Tapse (test code = 2.31 cm 6994300755) Aortic valve mean 76.1 cm/s velocity (test code = 9290101437) Ao peak erik (test code 117.0 cm/s = 3879790972) Ao VTI (test code = 20.9 cm 1047873060) AV LVOT peak gradient mmHg (test code = 8846052721) LVOT peak VTI (test 19.3 cm code = 9364729876) AV area by cont VTI 2.6 cm2 (test code = 0664972109) AV area peak erik (test 2.5 cm2 code = 9252797555) LV V1 mean (test code = 67.60 cm/s 5022821733) Ao max PG (test code = 5.50 mm[Hg] 0318693000) MV Prop V (test code = 50.60 cm/s 3891941727) Ao root diam (test code 3.50 cm = 9983490817) AV peak gradient (test mmHg code = 3443483839) AV valve area (test 2.60 cm2 code = 9629822500) AV mean gradient (test mmHg code = 3180617132) Aortic root (test code 3.5 cm = 4878337403) Ao root annulus (test 3.5 cm code = 0279294785) PW (test code = 1.10 cm 0.6-1.8 4883170586) EF - 2D (test code = 55.60 % 35380466) Interventricular Septum 1.14 cm Diastolic Thickness by 2D (test code = 3544198) LA Volume Index (BP) 20.8 mL/m2 (test code = 3581504116) BSA (test code = 2.44 m2 1085441977) A4C EF (test code = 54.80 % 9921345475) EF(sp4-el) (test code = 58.40 % 5984611903) SV(MOD-sp4) (test code 111.60 mL = 4218390350) SV(sp4-el) (test code = 121.80 mL 8756113078) LV Diastolic Volume 177.9 mL (BP) (test code = 5893961299) A2C EF (test code = 51.10 % 9868262561) EF(MOD-bp) (test code = 53.10 % 8821891143) EF(sp2-el) (test code = 52.30 % 6700612215) LV Systolic Volume (BP) 83.4 mL (test code = 2887690195) SV(MOD-bp) (test code = 94.50 mL 0371226309) SV(MOD-sp2) (test code 77.70 mL = 4364383484) EF (test code = 5077972730) Left Ventricular Stroke 94.5 mL Volume by 2-D Biplane-MOD (test code = 9268232) Radiology Study observation (narrative) (test code = 82841-8) LUIS ANGEL (test code = LUIS ANGEL) ?Left?Ventricle: Left ventricle size is normal. Normal wall thickness. There is concentric remodeling. Normal wall motion. Cannot exclude possible hypokinesis of the basal to mid inferoseptum and basal to mid anteroseptum. Low normal systolic function with a visually estimated EF of 50 - 55%. Normal left ventricular filling pressure. ?Right?Ventricle: Right ventricle size is normal. Normal systolic function. ?Tricuspid?Valve: Insufficient tricuspid regurgitation jet to estimate RVSP. ?Pericardium: No pericardial effusion. Left VentricleLeft ventricle size is normal. Normal wall thickness. There is concentric remodeling. Normal wall motion. Cannot exclude possible hypokinesis of the basal to mid inferoseptum and basal to mid anteroseptum. Low normal systolic function with a visually estimated EF of 50 - 55%. Normal left ventricular filling pressure.Right VentricleRight ventricle size is normal. Normal systolic function.Left AtriumLeft atrium size is normal.Right AtriumRight atrium size is normal.IVC/SVCIVC was not well visualized. IVC diameter is less than or equal to 21 mm and decreases greater than 50% during inspiration; therefore the estimated right atrial pressure is normal (~0-5 mmHg).Mitral ValveMildly thickened leaflets. Mild mitral annular calcification. No transvalvular regurgitation. No stenosis.Tricuspid ValveTricuspid valve structure is normal. Insufficient tricuspid regurgitation jet to estimate RVSP.No stenosis.Aortic ValveTricuspid. Mildly thickened cusps. No transvalvular regurgitation. No hemodynamically significant .Pulmonic ValveNot well visualized. Trace transvalvular regurgitation.Ascendin g AortaNormal sized sinus of Valsalva, ascending aorta and aortic root.PericardiumThe pericardium is normal. No pericardial effusion.Study DetailsStudy quality was good. A complete echocardiogram was performed using 2D, color flow Doppler and spectral Doppler. The apical, parasternal and subcostal views were obtained. Lumason ultrasound enhancing agent used. [facility] GLUCOSE (AUTOMATED)2021-12-16 16:13:19 Test Item Value Reference Range Interpretation Comments POCT GLU (test code = 7034125187) 211 mg/dL 70-110 H Lab Interpretation (test code = Abnormal 23217-7) [facility] GLUCOSE (AUTOMATED)2021-12-16 12:42:40 Test Item Value Reference Range Interpretation Comments POCT GLU (test code = 2278373731) 303 mg/dL 70-110 H Lab Interpretation (test code = Abnormal 31817-1) [facility] CenterBETA [id number] 08:13:49 BOH<0.1mmol/L102/15/2021 3:13 AM [facility] SERVICESNormal Ranges: ? ? Nonfasting ? Less than 0.1 mmol/L ? ? Overnight Fast ? ? ? Less than 0.4 mmol/L ? ? Fasting (1-2 weeks) ?6-8 mmol/L Test developed and characteristics determined by [facility] Laboratory Services.[facility] CenterType and Screen - ONCE [id number] 04:23:35 Test Item Value Reference Range Interpretation Comments ABO & RH (test code O Positive Performe d at [facility] = 20) Laboratory Serv [facility] [place] [address]Vjbr Free: [phone] A No. [id number] IAT (test code = Negative Performed a t [facility] 1185) Laboratory Serv [facility] Blood [address] [address]Hwtn Free: [phone] A No. [id number] [facility] GLUCOSE (AUTOMATED)2021-12-16 04:08:11 Test Item Value Reference Range Interpretation Comments POCT GLU (test code = 6341977652) 381 mg/dL 70-110 H Lab Interpretation (test code = Abnormal 85934-0) [facility] CenterThyroid Stimulating Hormone (TSH)2021-12-16 04:04:45 Test Item Value Reference Range Interpretation Comments TSH (test code = See_Comment H Hemolyzed s pecimen 1678377354) [Automated mess age] The system AKT generated this result transmitted ref erence range: 0.45 - 4 .70 mIU/L. The refe rence range was not u sed to interpret this result as normal/abnor mal. Lab Interpretation (test Abnormal code = 42560-0) [facility] GLUCOSE (AUTOMATED)2021-12-16 02:48:32 Test Item Value Reference Range Interpretation Comments POCT GLU (test code = 0857524457) 412 mg/dL 70-110 H Lab Interpretation (test code = Abnormal 92403-5) [facility] METABOLIC PANEL (01434)2021-12-16 02:01:08 Test Item Value Reference Range Interpretation Comments NA (test code = 128 mmol/L 135-145 L 4150111789) K (test code = 4.5 mmol/L 3.5-5.0 2240448913) CL (test code = 92 mmol/L 98-108 L 6511999906) CO2 TOTAL (test code = 29 mmol/L 23-31 5991531783) AGAP (test code = 2-16 2414705980) BUN (test code = 20 mg/dL 7-23 8053886979) GLUCOSE (test code = 492 mg/dL 70-110 HH 4983652865) CREATININE (test code = 1.29 mg/dL 0.60-1.25 H 1241781089) TOTAL BILI (test code = 1.0 mg/dL 0.1-1.5 4767047506) CALCIUM (test code = 9.4 mg/dL 8.6-10.6 2570699128) T PROTEIN (test code = 8.2 g/dL 6.3-8.2 9613774356) ALBUMIN (test code = 3.4 g/dL 3.5-5.0 L 1770172696) ALK PHOS (test code = 596 U/L 34-122 H 7241400808) ALTv (test code = 42 U/L 5-50 1742-6) AST(SGOT) (test code = 66 U/L 13-40 H 3971101310) eGFR (test code = mL/min/1.73m2 2034481706) LUIS ANGEL (test code = LUIS ANGEL) Association of Glomerular Filtration Rate (GFR) and Staging of Kidney Disease* + --+ --+ ------+| GFR (mL/min/1.73 m2) ?| With Kidney Damage ?| ?Without Kidney Damage+ --------+ --------+ +| ?>90 ?| ?Stage one ?| ? Normal ?+ ---+ ---+ -------+| ?60-89 ?| ?Stage two ?| ? Decreased GFR ? + --+ --+ ------+| ?30-59 ?| ?Stage three ?| ? Stage three ? + --+ --+ ------+| ?15-29 ?| ?Stage four ? | ? Stage four ?+ ---+ ---+ -------+| ?<15 (or dialysis) ? ?| ?Stage five ? | ? Stage five ?+ ---+ ---+ -------+ *Each stage assumes the associated GFR level has been in effect for at least three months. ?Stages 1 to 5, with or without kidney disease, indicate chronic kidney disease. Notes: Determination of stages one and two (with eGFR >59mL/min/1.73 m2) requires estimation of kidney damage for at least three months as defined by structural or functional abnormalities of the kidney, manifested by either:Pathological abnormalities or Markers of kidney damage (including abnormalities in the composition of the blood or urine or abnormalities in imaging tests). Lab Interpretation Abnormal (test code = 50085-8) [facility] CenterTROPON[facility] [id number] 01:39:35 Test Item Value Reference Interpretation Comments Range TROPONIN I (test 0.053 ng/mL See_Comment H [Automated code = 2125559582) message] The system which generated this result transmitted reference range : <=0.034. The reference range was not used to interpret this result as normal/abnormal . LUIS ANGEL (test code = Reference (Normal) LUIS ANGEL) Range (defined by the 99th percentile reference limit): <= 0.034 ng/mL Note: Cardiac troponin begins to rise 3-4 hours after the onset of ischemia. Repeat in 4-6 hours if the sample was drawn within 3-4 hours of the onset of the symptom and found normal. Diagnosis of myocardial injury is made with acute changes in cTn concentrations with at least one serial sample above the 99th percentile upper reference limit (URL), taken together with the patient's clinical presentation. Biotin has been reported to cause a negative bias, interpret results relative to patient's use of biotin. Lab Interpretation Abnormal (test code = 40903-6) [facility] CenterN-TERMINAL [id number] 01:39:35 Test Item Value Reference Range Interpretation Comments NT-proBNP (test code 2380 pg/mL See_Comment H [Autom ated = 8476667340) message] The system which generated this result transmitted reference range : <=125. The reference range was not used to interpret this result as normal/abnormal . LUIS ANGEL (test code = LUIS ANGEL) Biotin has been reported to cause a negative bias, interpret results relative to patient's use of biotin. Lab Interpretation Abnormal (test code = 07149-6) [facility] WITH [id number] 01:20:56 Test Item Value Reference Range Interpretation Comments WBC (test code = See_Comment H [Automated 6690-2) message] The sy stem which generated this result transmitted reference range : 4.20 - 10.70 10*3/?L. The reference range was not used to interpret this result as normal/abnormal . RBC (test code = See_Comment L [Automated 789-8) message] The sy stem which generated this result transmitted reference range : 4.26 - 5.52 10*6/?L. The reference range was not used to interpret this result as normal/abnormal . HGB (test code = 10.7 g/dL 12.2-16.4 L 718-7) HCT (test code = 31.6 % 38.4-49.3 L 4544-3) MCV (test code = 90.3 fL 81.7-95.6 787-2) MCH (test code = 30.6 pg 26.1-32.7 785-6) MCHC (test code = 33.9 g/dL 31.2-35.0 786-4) RDW-SD (test code = 52.8 fL 38.5-51.6 H 89342-3) RDW-CV (test code = 16.5 % 12.1-15.4 H 788-0) PLT (test code = See_Comment H [Automated 777-3) message] The sy stem which generated this result transmitted reference range : 150 - 328 10*3/ ?L. The reference r sherice was not used to interpret this result as normal/abnormal . MPV (test code = 11.1 fL 9.8-13.0 58408-1) NRBC/100 WBC (test See_Comment [Automat ed code = 6356035433) message] The system which generated this result transmitted reference range : 0.0 - 10.0 /100 WBCs. The refer ence range was not u sed to interpret th is result as normal/abnormal . NRBC x10^3 (test code See_Comment [Auto mated = 9085622508) message] The s ystem which generated this result transmitted reference range : 10*3/?L. The reference range was not used to interpret this result as normal/abnormal . GRAN MAT (NEUT) % 73.5 % (test code = 770-8) IMM GRAN % (test code 1.30 % = 2047485537) LYMPH % (test code = 14.9 % 736-9) MONO % (test code = 8.7 % 5905-5) EOS % (test code = 1.1 % 713-8) BASO % (test code = 0.5 % 706-2) GRAN MAT x10^3(ANC) 9.27 10*3/uL 1.99-6.95 H (test code = 1371821832) IMM GRAN x10^3 (test 0.16 10*3/uL 0.00-0.06 H code = 9503833311) LYMPH x10^3 (test code 1.88 10*3/uL 1.09-3.23 = 731-0) MONO x10^3 (test code 1.09 10*3/uL 0.36-1.02 H = 742-7) EOS x10^3 (test code = 0.14 10*3/uL 0.06-0.53 711-2) BASO x10^3 (test code 0.06 10*3/uL 0.01-0.09 = 704-7) Lab Interpretation Abnormal (test code = 69276-8) [facility] GLUCOSE (AUTOMATED)2021-12-16 00:12:04 Test Item Value Reference Range Interpretation Comments POCT GLU (test code = 2358283967) 488 mg/dL 70-110 HH Lab Interpretation (test code = Abnormal 80992-5) [facility] GLUCOSE (AUTOMATED)2021-12-14 20:47:31 Test Item Value Reference Range Interpretation Comments POCT GLU (test code = 121 mg/dL 70-110 H Notifi ed Provider [id number]) Lab Interpretation (test Abnormal code = 18884-9) [facility] GLUCOSE (AUTOMATED)2021-12-14 16:34:13 Test Item Value Reference Range Interpretation Comments POCT GLU (test code = 239 mg/dL 70-110 H Notifi ed Provider [id number]) Lab Interpretation (test Abnormal code = 19774-7) [facility] GLUCOSE (AUTOMATED)2021-12-14 13:04:50 Test Item Value Reference Range Interpretation Comments POCT GLU (test code = 219 mg/dL 70-110 H Notifi ed Provider [id number]) Lab Interpretation (test Abnormal code = 85744-1) [facility] GLUCOSE (AUTOMATED)2021-12-14 01:54:05 Test Item Value Reference Range Interpretation Comments POCT GLU (test code = 0382809226) 189 mg/dL 70-110 H Lab Interpretation (test code = Abnormal 89218-8) [facility] GLUCOSE (AUTOMATED)2021-12-13 20:24:14 Test Item Value Reference Range Interpretation Comments POCT GLU (test code = 171 mg/dL 70-110 H Notifi ed Provider [id number]) Lab Interpretation (test Abnormal code = 50588-4) [facility] GLUCOSE (AUTOMATED)2021-12-13 16:21:41 Test Item Value Reference Range Interpretation Comments POCT GLU (test code = 156 mg/dL 70-110 H Notifi ed Provider [id number]) Lab Interpretation (test Abnormal code = 86677-1) [facility] GLUCOSE (AUTOMATED)2021-12-13 13:02:44 Test Item Value Reference Range Interpretation Comments POCT GLU (test code = 216 mg/dL 70-110 H Notifi ed Provider [id number]) Lab Interpretation (test Abnormal code = 74887-7) [facility] GLUCOSE (AUTOMATED)2021-12-13 01:49:09 Test Item Value Reference Range Interpretation Comments POCT GLU (test code = 9903392612) 169 mg/dL 70-110 H Lab Interpretation (test code = Abnormal 47384-2) [facility] 22:22:00 Test Item Value Reference Range Interpretation Comments POCT GLU (test code = 8242133448) 281 mg/dL 70-110 H Lab Interpretation (test code = Abnormal 96046-8) [facility] GLUCOSE (AUTOMATED)2021-12-12 18:49:22 Test Item Value Reference Range Interpretation Comments POCT GLU (test code = 142 mg/dL 70-110 H Notifi ed Provider [id number]) Lab Interpretation (test Abnormal code = 63280-7) [facility] GLUCOSE (AUTOMATED)2021-12-12 13:27:34 Test Item Value Reference Range Interpretation Comments POCT GLU (test code = 2892330666) 136 mg/dL 70-110 H Lab Interpretation (test code = Abnormal 46695-0) [facility] GLUCOSE (AUTOMATED)2021-12-12 01:54:43 Test Item Value Reference Range Interpretation Comments POCT GLU (test code = 7119539130) 170 mg/dL 70-110 H Lab Interpretation (test code = Abnormal 90815-4) [facility] GLUCOSE (AUTOMATED)2021-12-11 22:46:56 Test Item Value Reference Range Interpretation Comments POCT GLU (test code = 3970077100) 222 mg/dL 70-110 H Lab Interpretation (test code = Abnormal 45581-2) [facility] GLUCOSE (AUTOMATED)2021-12-11 17:41:02 Test Item Value Reference Range Interpretation Comments POCT GLU (test code = 5401052900) 267 mg/dL 70-110 H Lab Interpretation (test code = Abnormal 09171-7) [facility] GLUCOSE (AUTOMATED)2021-12-11 14:08:59 Test Item Value Reference Range Interpretation Comments POCT GLU (test code = 0264577278) 157 mg/dL 70-110 H Lab Interpretation (test code = Abnormal 90722-0) [facility] [id number] 12:25:20 Test Item Value Reference Range Interpretation Comments ABO & RH (test code O POSITIVE Performe d at [facility] = 20) Laboratory [facility] Blood [facility]3 [address] [facility] s [id number] Free: [phone] A No. [id number] IAT (test code = Negative Performed a t [facility] 1185) [facility] Blood [facility]3 [address] [facility] s [address]Ebsj Free: [phone] A No. [id number] [facility] GLUCOSE (AUTOMATED)2021-12-11 03:51:22 Test Item Value Reference Range Interpretation Comments POCT GLU (test code = 9126330346) 271 mg/dL 70-110 H Lab Interpretation (test code = Abnormal 83852-3) [facility] GLUCOSE (AUTOMATED)2021-12-10 22:10:29 Test Item Value Reference Range Interpretation Comments POCT GLU (test code = 5347048985) 205 mg/dL 70-110 H Lab Interpretation (test code = Abnormal 61039-2) [facility] GLUCOSE (AUTOMATED)2021-12-10 20:50:16 Test Item Value Reference Range Interpretation Comments POCT GLU (test code = 1446669390) 225 mg/dL 70-110 H Lab Interpretation (test code = Abnormal 70834-1) [facility] GLUCOSE (AUTOMATED)2021-12-10 16:34:34 Test Item Value Reference Range Interpretation Comments POCT GLU (test code = 6453260125) 233 mg/dL 70-110 H Lab Interpretation (test code = Abnormal 87150-6) [facility] GLUCOSE (AUTOMATED)2021-12-10 13:17:55 Test Item Value Reference Range Interpretation Comments POCT GLU (test code = 6948575921) 210 mg/dL 70-110 H Lab Interpretation (test code = Abnormal 48877-3) [facility] GLUCOSE (AUTOMATED)2021-12-10 03:09:32 Test Item Value Reference Range Interpretation Comments POCT GLU (test code = 1570227530) 218 mg/dL 70-110 H Lab Interpretation (test code = Abnormal 04337-3) [facility] GLUCOSE (AUTOMATED)2021-12-09 23:06:54 Test Item Value Reference Range Interpretation Comments POCT GLU (test code = 9466825355) 165 mg/dL 70-110 H Lab Interpretation (test code = Abnormal 28926-8) [facility] GLUCOSE (AUTOMATED)2021-12-09 23:06:54 Test Item Value Reference Range Interpretation Comments POCT GLU (test code = 5263949449) 165 mg/dL 70-110 H Lab Interpretation (test code = Abnormal 52832-1) [facility] GLUCOSE (AUTOMATED)2021-12-09 19:11:55 Test Item Value Reference Range Interpretation Comments POCT GLU (test code = 6813061419) 219 mg/dL 70-110 H Lab Interpretation (test code = Abnormal 46054-6) [facility] GLUCOSE (AUTOMATED)2021-12-09 19:11:55 Test Item Value Reference Range Interpretation Comments POCT GLU (test code = 2333595927) 219 mg/dL 70-110 H Lab Interpretation (test code = Abnormal 96175-1) [facility] GLUCOSE (AUTOMATED)2021-12-09 12:28:05 Test Item Value Reference Range Interpretation Comments POCT GLU (test code = 1846269725) 227 mg/dL 70-110 H Lab Interpretation (test code = Abnormal 68619-4) [facility] GLUCOSE (AUTOMATED)2021-12-09 12:28:05 Test Item Value Reference Range Interpretation Comments POCT GLU (test code = 9252542090) 227 mg/dL 70-110 H Lab Interpretation (test code = Abnormal 64199-0) [facility] GLUCOSE (AUTOMATED)2021-12-09 02:05:16 Test Item Value Reference Range Interpretation Comments POCT GLU (test code = 2273728624) 104 mg/dL 70-110 Lab Interpretation (test code = Normal 21784-0) [facility] GLUCOSE (AUTOMATED)2021-12-09 02:05:16 Test Item Value Reference Range Interpretation Comments POCT GLU (test code = 2091254896) 104 mg/dL 70-110 Lab Interpretation (test code = Normal 07358-3) [facility] GLUCOSE (AUTOMATED)2021-12-08 21:54:12 Test Item Value Reference Range Interpretation Comments POCT GLU (test code = 5859277391) 184 mg/dL 70-110 H Lab Interpretation (test code = Abnormal 52869-0) [facility] GLUCOSE (AUTOMATED)2021-12-08 21:54:12 Test Item Value Reference Range Interpretation Comments POCT GLU (test code = 5900263460) 184 mg/dL 70-110 H Lab Interpretation (test code = Abnormal 85861-7) [facility] GLUCOSE (AUTOMATED)2021-12-08 12:47:28 Test Item Value Reference Range Interpretation Comments POCT GLU (test code = 2252701559) 283 mg/dL 70-110 H Lab Interpretation (test code = Abnormal 48370-8) [facility] GLUCOSE (AUTOMATED)2021-12-08 12:47:28 Test Item Value Reference Range Interpretation Comments POCT GLU (test code = 4453178127) 283 mg/dL 70-110 H Lab Interpretation (test code = Abnormal 61459-5) [facility] Confirmation (Lab Only)2021-12-08 10:36:55 Test Item Value Reference Range Interpretation Comments ABO & RH (test code O Positive Performe d at [facility] = 20) Laboratory [facility] Blood [address] s [address]Jnkb Free: [phone] A No. [id number] [facility] Confirmation (Lab Only)2021-12-08 10:36:55 Test Item Value Reference Range Interpretation Comments ABO & RH (test code O Positive Performe d at [facility] = 20) Laboratory [facility] Blood [address] [address]Edqc Free: [phone] A No. [id number] [facility] [id number] 09:13:49 Test Item Value Reference Range Interpretation Comments ABO & RH (test code O POSITIVE Performe d at [facility] = 20) Laboratory [facility] Blood [address] [address]Fkui Free: [phone] A No. [id number] IAT (test code = Negative Performed a t [facility] 1185) Laboratory [facility] Blood [address] s [address]Nzvw Free: [phone] A No. [id number] [facility] and Screen - ONCE [id number] 09:13:49 Test Item Value Reference Range Interpretation Comments ABO & RH (test code O POSITIVE Performe d at [facility] = 20) Laboratory [facility] [address] s [address]Pxvb Free: [phone] A No. [id number] IAT (test code = Negative Performed a t [facility] 1185) Laboratory [facility] Blood [address] s [address]Ngko Free: [phone] A No. [id number] [facility]21-[facility]-08 01:56:53 Test Item Value Reference Range Interpretation Comments POCT GLU (test code = 0929028819) 197 mg/dL 70-110 H Lab Interpretation (test code = Abnormal 90221-4) [facility] GLUCOSE (AUTOMATED)2021-12-08 01:56:53 Test Item Value Reference Range Interpretation Comments POCT GLU (test code = 7119291793) 197 mg/dL 70-110 H Lab Interpretation (test code = Abnormal 18537-4) [facility] GLUCOSE (AUTOMATED)2021-12-07 22:40:38 Test Item Value Reference Range Interpretation Comments POCT GLU (test code = 9352378941) 186 mg/dL 70-110 H Lab Interpretation (test code = Abnormal 88488-9) [facility] GLUCOSE (AUTOMATED)2021-12-07 22:40:38 Test Item Value Reference Range Interpretation Comments POCT GLU (test code = 0251437016) 186 mg/dL 70-110 H Lab Interpretation (test code = Abnormal 61297-2) [facility] GLUCOSE (AUTOMATED)2021-12-07 20:22:09 Test Item Value Reference Range Interpretation Comments POCT GLU (test code = 1790325597) 178 mg/dL 70-110 H Lab Interpretation (test code = Abnormal 76487-7) [facility] GLUCOSE (AUTOMATED)2021-12-07 20:22:09 Test Item Value Reference Range Interpretation Comments POCT GLU (test code = 7351810121) 178 mg/dL 70-110 H Lab Interpretation (test code = Abnormal 99572-9) [facility] GLUCOSE (AUTOMATED)2021-12-07 16:18:36 Test Item Value Reference Range Interpretation Comments POCT GLU (test code = 7078729060) 226 mg/dL 70-110 H Lab Interpretation (test code = Abnormal 83814-2) [facility] GLUCOSE (AUTOMATED)2021-12-07 16:18:36 Test Item Value Reference Range Interpretation Comments POCT GLU (test code = 1710259016) 226 mg/dL 70-110 H Lab Interpretation (test code = Abnormal 94280-7) [facility] GLUCOSE (AUTOMATED)2021-12-07 12:26:47 Test Item Value Reference Range Interpretation Comments POCT GLU (test code = 3369065488) 248 mg/dL 70-110 H Lab Interpretation (test code = Abnormal 07397-6) [facility] GLUCOSE (AUTOMATED)2021-12-07 12:26:47 Test Item Value Reference Range Interpretation Comments POCT GLU (test code = 4430432949) 248 mg/dL 70-110 H Lab Interpretation (test code = Abnormal 07685-4) [facility] GLUCOSE (AUTOMATED)2021-12-07 02:04:42 Test Item Value Reference Range Interpretation Comments POCT GLU (test code = 209 mg/dL 70-110 H Notifi ed Provider [id number]) Lab Interpretation (test Abnormal code = 73631-5) [facility] GLUCOSE (AUTOMATED)2021-12-07 02:04:42 Test Item Value Reference Range Interpretation Comments POCT GLU (test code = 209 mg/dL 70-110 H Notifi ed Provider [id number]) Lab Interpretation (test Abnormal code = 49644-5) [facility] GLUCOSE (AUTOMATED)2021-12-06 22:27:15 Test Item Value Reference Range Interpretation Comments POCT GLU (test code = 8617647385) 220 mg/dL 70-110 H Lab Interpretation (test code = Abnormal 98429-1) [facility] GLUCOSE (AUTOMATED)2021-12-06 22:27:15 Test Item Value Reference Range Interpretation Comments POCT GLU (test code = 8328191965) 220 mg/dL 70-110 H Lab Interpretation (test code = Abnormal 12060-1) [facility] GLUCOSE (AUTOMATED)2021-12-06 22:27:15 Test Item Value Reference Range Interpretation Comments POCT GLU (test code = 7684518173) 220 mg/dL 70-110 H Lab Interpretation (test code = Abnormal 23089-7) [facility] GLUCOSE (AUTOMATED)2021-12-06 22:27:15 Test Item Value Reference Range Interpretation Comments POCT GLU (test code = 0821753737) 220 mg/dL 70-110 H Lab Interpretation (test code = Abnormal 50544-3) [facility] GLUCOSE (AUTOMATED)2021-12-06 16:23:48 Test Item Value Reference Range Interpretation Comments POCT GLU (test code = 0475414824) 299 mg/dL 70-110 H Lab Interpretation (test code = Abnormal 35439-3) [facility] 16:23:48 Test Item Value Reference Range Interpretation Comments POCT GLU (test code = 2318360532) 299 mg/dL 70-110 H Lab Interpretation (test code = Abnormal 57139-6) [facility] GLUCOSE (AUTOMATED)2021-12-06 16:23:48 Test Item Value Reference Range Interpretation Comments POCT GLU (test code = 5121243607) 299 mg/dL 70-110 H Lab Interpretation (test code = Abnormal 70517-3) [facility] GLUCOSE (AUTOMATED)2021-12-06 16:23:48 Test Item Value Reference Range Interpretation Comments POCT GLU (test code = 5162799275) 299 mg/dL 70-110 H Lab Interpretation (test code = Abnormal 88191-3) [facility] GLUCOSE (AUTOMATED)2021-12-06 12:29:17 Test Item Value Reference Range Interpretation Comments POCT GLU (test code = 4180483750) 255 mg/dL 70-110 H Lab Interpretation (test code = Abnormal 93854-8) [facility] 12:29:17 Test Item Value Reference Range Interpretation Comments POCT GLU (test code = 2863785848) 255 mg/dL 70-110 H Lab Interpretation (test code = Abnormal 61817-0) [facility] GLUCOSE (AUTOMATED)2021-12-06 12:29:17 Test Item Value Reference Range Interpretation Comments POCT GLU (test code = 5361696226) 255 mg/dL 70-110 H Lab Interpretation (test code = Abnormal 49933-1) [facility] 12:29:17 Test Item Value Reference Range Interpretation Comments POCT GLU (test code = 4253155157) 255 mg/dL 70-110 H Lab Interpretation (test code = Abnormal 80381-7) [facility] 03:24:52 Test Item Value Reference Range Interpretation Comments POCT GLU (test code = 0109225719) 252 mg/dL 70-110 H Lab Interpretation (test code = Abnormal 56621-0) [facility] GLUCOSE (AUTOMATED)2021-12-06 03:24:52 Test Item Value Reference Range Interpretation Comments POCT GLU (test code = 3859889030) 252 mg/dL 70-110 H Lab Interpretation (test code = Abnormal 60456-0) [facility] GLUCOSE (AUTOMATED)2021-12-06 03:24:52 Test Item Value Reference Range Interpretation Comments POCT GLU (test code = 2149589759) 252 mg/dL 70-110 H Lab Interpretation (test code = Abnormal 82320-4) [facility] GLUCOSE (AUTOMATED)2021-12-06 03:24:52 Test Item Value Reference Range Interpretation Comments POCT GLU (test code = 3873791618) 252 mg/dL 70-110 H Lab Interpretation (test code = Abnormal 58930-0) [facility] GLUCOSE (AUTOMATED)2021-12-05 16:37:23 Test Item Value Reference Range Interpretation Comments POCT GLU (test code = 243 mg/dL 70-110 H Notifi ed Provider [id number]) Lab Interpretation (test Abnormal code = 45059-2) [facility] GLUCOSE (AUTOMATED)2021-12-05 16:37:23 Test Item Value Reference Range Interpretation Comments POCT GLU (test code = 243 mg/dL 70-110 H Notifi ed Provider [id number]) Lab Interpretation (test Abnormal code = 39022-2) [facility] GLUCOSE (AUTOMATED)2021-12-05 16:37:23 Test Item Value Reference Range Interpretation Comments POCT GLU (test code = 243 mg/dL 70-110 H Notifi ed Provider [id number]) Lab Interpretation (test Abnormal code = 10929-9) [facility] GLUCOSE (AUTOMATED)2021-12-05 16:37:23 Test Item Value Reference Range Interpretation Comments POCT GLU (test code = 243 mg/dL 70-110 H Notifi ed Provider [id number]) Lab Interpretation (test Abnormal code = 44562-3) [facility] GLUCOSE (AUTOMATED)2021-12-05 13:03:51 Test Item Value Reference Range Interpretation Comments POCT GLU (test code = 250 mg/dL 70-110 H Notifi ed Provider [id number]) Lab Interpretation (test Abnormal code = 35001-4) [facility] GLUCOSE (AUTOMATED)2021-12-05 13:03:51 Test Item Value Reference Range Interpretation Comments POCT GLU (test code = 250 mg/dL 70-110 H Notifi ed Provider [id number]) Lab Interpretation (test Abnormal code = 17987-5) [facility] GLUCOSE (AUTOMATED)2021-12-05 13:03:51 Test Item Value Reference Range Interpretation Comments POCT GLU (test code = 250 mg/dL 70-110 H Notifi ed Provider [id number]) Lab Interpretation (test Abnormal code = 29742-1) [facility] GLUCOSE (AUTOMATED)2021-12-05 13:03:51 Test Item Value Reference Range Interpretation Comments POCT GLU (test code = 250 mg/dL 70-110 H Notifi ed Provider [id number]) Lab Interpretation (test Abnormal code = 78383-1) [facility]. METABOLIC PANEL ([id number])2021-12-05 11:17:13 Test Item Value Reference Range Interpretation Comments NA (test code = 131 mmol/L 135-145 L 2268569244) K (test code = 4.1 mmol/L 3.5-5 1926903157) CL (test code = 96 mmol/L 98-108 L 6917502917) CO2 TOTAL (test code = 25 mmol/L 23-31 7304597901) AGAP (test code = 2-16 2185403945) BUN (test code = 20 mg/dL 7-23 6886576471) GLUCOSE (test code = 237 mg/dL 70-110 H 4674953222) CREATININE (test code = 1.03 mg/dL 0.6-1.25 8352246840) TOTAL BILI (test code = 1.9 mg/dL 0.1-1.1 H 4851824823) CALCIUM (test code = 8.7 mg/dL 8.6-10.6 2796563376) T PROTEIN (test code = 7.6 g/dL 6.3-8.2 9287119158) ALBUMIN (test code = 3.1 g/dL 3.5-5 L 5371470488) ALK PHOS (test code = 306 U/L 34-122 H 3541917548) ALTv (test code = 37 U/L 5-50 1742-6) AST(SGOT) (test code = 95 U/L 13-40 H 4460306551) eGFR (test code = mL/min/1.73m2 4660397131) LUIS ANGEL (test code = LUIS ANGEL) Association of Glomerular Filtration Rate (GFR) and Staging of Kidney Disease* + --+ --+ ------+| GFR (mL/min/1.73 m2) ?| With Kidney Damage ?| ?Without Kidney Damage+ --------+ --------+ +| ?>90 ?| ?Stage one ?| ? Normal ?+ ---+ ---+ -------+| ?60-89 ?| ?Stage two ?| ? Decreased GFR ? + --+ --+ ------+| ?30-59 ?| ?Stage three ?| ? Stage three ? + --+ --+ ------+| ?15-29 ?| ?Stage four ? | ? Stage four ?+ ---+ ---+ -------+| ?<15 (or dialysis) ? ?| ?Stage five ? | ? Stage five ?+ ---+ ---+ -------+ *Each stage assumes the associated GFR level has been in effect for at least three months. ?Stages 1 to 5, with or without kidney disease, indicate chronic kidney disease. Notes: Determination of stages one and two (with eGFR >59mL/min/1.73 m2) requires estimation of kidney damage for at least three months as defined by structural or functional abnormalities of the kidney, manifested by either:Pathological abnormalities or Markers of kidney damage (including abnormalities in the composition of the blood or urine or abnormalities in imaging tests). Lab Interpretation Abnormal (test code = 17917-3) [facility]. METABOLIC PANEL ([id number])2021-12-05 11:17:13 Test Item Value Reference Range Interpretation Comments NA (test code = 131 mmol/L 135-145 L 7244156173) K (test code = 4.1 mmol/L 3.5-5 4298381585) CL (test code = 96 mmol/L 98-108 L 3895803499) CO2 TOTAL (test code = 25 mmol/L 23-31 0408859478) AGAP (test code = 2-16 3420120468) BUN (test code = 20 mg/dL 7-23 7641607632) GLUCOSE (test code = 237 mg/dL 70-110 H 5831464890) CREATININE (test code = 1.03 mg/dL 0.6-1.25 5683726742) TOTAL BILI (test code = 1.9 mg/dL 0.1-1.1 H 1947154662) CALCIUM (test code = 8.7 mg/dL 8.6-10.6 9691649795) T PROTEIN (test code = 7.6 g/dL 6.3-8.2 1860248937) ALBUMIN (test code = 3.1 g/dL 3.5-5 L 3658766409) ALK PHOS (test code = 306 U/L 34-122 H 9407049447) ALTv (test code = 37 U/L 5-50 1742-6) AST(SGOT) (test code = 95 U/L 13-40 H 8492503750) eGFR (test code = mL/min/1.73m2 3664004910) LUIS ANGEL (test code = LUIS ANGEL) Association of Glomerular Filtration Rate (GFR) and Staging of Kidney Disease* + --+ --+ ------+| GFR (mL/min/1.73 m2) ?| With Kidney Damage ?| ?Without Kidney Damage+ --------+ --------+ +| ?>90 ?| ?Stage one ?| ? Normal ?+ ---+ ---+ -------+| ?60-89 ?| ?Stage two ?| ? Decreased GFR ? + --+ --+ ------+| ?30-59 ?| ?Stage three ?| ? Stage three ? + --+ --+ ------+| ?15-29 ?| ?Stage four ? | ? Stage four ?+ ---+ ---+ -------+| ?<15 (or dialysis) ? ?| ?Stage five ? | ? Stage five ?+ ---+ ---+ -------+ *Each stage assumes the associated GFR level has been in effect for at least three months. ?Stages 1 to 5, with or without kidney disease, indicate chronic kidney disease. Notes: Determination of stages one and two (with eGFR >59mL/min/1.73 m2) requires estimation of kidney damage for at least three months as defined by structural or functional abnormalities of the kidney, manifested by either:Pathological abnormalities or Markers of kidney damage (including abnormalities in the composition of the blood or urine or abnormalities in imaging tests). Lab Interpretation Abnormal (test code = 26701-8) [facility]. METABOLIC PANEL ([id number])2021-12-05 11:17:13 Test Item Value Reference Range Interpretation Comments NA (test code = 131 mmol/L 135-145 L 5868201479) K (test code = 4.1 mmol/L 3.5-5.0 8344504438) CL (test code = 96 mmol/L 98-108 L 0576741927) CO2 TOTAL (test code = 25 mmol/L 23-31 8140067518) AGAP (test code = 2-16 5364951458) BUN (test code = 20 mg/dL 7-23 4367189922) GLUCOSE (test code = 237 mg/dL 70-110 H 0415163043) CREATININE (test code = 1.03 mg/dL 0.60-1.25 3848143937) TOTAL BILI (test code = 1.9 mg/dL 0.1-1.1 H 6873410485) CALCIUM (test code = 8.7 mg/dL 8.6-10.6 1884146113) T PROTEIN (test code = 7.6 g/dL 6.3-8.2 8618035244) ALBUMIN (test code = 3.1 g/dL 3.5-5.0 L 9792377746) ALK PHOS (test code = 306 U/L 34-122 H 5449653918) ALTv (test code = 37 U/L 5-50 1742-6) AST(SGOT) (test code = 95 U/L 13-40 H 1868327987) eGFR (test code = mL/min/1.73m2 5462828481) LUIS ANGEL (test code = LUIS ANGEL) Association of Glomerular Filtration Rate (GFR) and Staging of Kidney Disease* + --+ --+ ------+| GFR (mL/min/1.73 m2) ?| With Kidney Damage ?| ?Without Kidney Damage+ --------+ --------+ +| ?>90 ?| ?Stage one ?| ? Normal ?+ ---+ ---+ -------+| ?60-89 ?| ?Stage two ?| ? Decreased GFR ? + --+ --+ ------+| ?30-59 ?| ?Stage three ?| ? Stage three ? + --+ --+ ------+| ?15-29 ?| ?Stage four ? | ? Stage four ?+ ---+ ---+ -------+| ?<15 (or dialysis) ? ?| ?Stage five ? | ? Stage five ?+ ---+ ---+ -------+ *Each stage assumes the associated GFR level has been in effect for at least three months. ?Stages 1 to 5, with or without kidney disease, indicate chronic kidney disease. Notes: Determination of stages one and two (with eGFR >59mL/min/1.73 m2) requires estimation of kidney damage for at least three months as defined by structural or functional abnormalities of the kidney, manifested by either:Pathological abnormalities or Markers of kidney damage (including abnormalities in the composition of the blood or urine or abnormalities in imaging tests). Lab Interpretation Abnormal (test code = 04991-6) [facility]. METABOLIC PANEL ([id number])2021-12-05 11:17:13 Test Item Value Reference Range Interpretation Comments NA (test code = 131 mmol/L 135-145 L 1066979411) K (test code = 4.1 mmol/L 3.5-5.0 1375348668) CL (test code = 96 mmol/L 98-108 L 2242887677) CO2 TOTAL (test code = 25 mmol/L 23-31 3421694374) AGAP (test code = 2-16 4767733304) BUN (test code = 20 mg/dL 7-23 5029992575) GLUCOSE (test code = 237 mg/dL 70-110 H 9942932351) CREATININE (test code = 1.03 mg/dL 0.60-1.25 0186589933) TOTAL BILI (test code = 1.9 mg/dL 0.1-1.1 H 6270374639) CALCIUM (test code = 8.7 mg/dL 8.6-10.6 2445378394) T PROTEIN (test code = 7.6 g/dL 6.3-8.2 4201461928) ALBUMIN (test code = 3.1 g/dL 3.5-5.0 L 2057135758) ALK PHOS (test code = 306 U/L 34-122 H 4411187872) ALTv (test code = 37 U/L 5-50 1742-6) AST(SGOT) (test code = 95 U/L 13-40 H 6291907057) eGFR (test code = mL/min/1.73m2 2105206081) LUIS ANGEL (test code = LUIS ANGEL) Association of Glomerular Filtration Rate (GFR) and Staging of Kidney Disease* + --+ --+ ------+| GFR (mL/min/1.73 m2) ?| With Kidney Damage ?| ?Without Kidney Damage+ --------+ --------+ +| ?>90 ?| ?Stage one ?| ? Normal ?+ ---+ ---+ -------+| ?60-89 ?| ?Stage two ?| ? Decreased GFR ? + --+ --+ ------+| ?30-59 ?| ?Stage three ?| ? Stage three ? + --+ --+ ------+| ?15-29 ?| ?Stage four ? | ? Stage four ?+ ---+ ---+ -------+| ?<15 (or dialysis) ? ?| ?Stage five ? | ? Stage five ?+ ---+ ---+ -------+ *Each stage assumes the associated GFR level has been in effect for at least three months. ?Stages 1 to 5, with or without kidney disease, indicate chronic kidney disease. Notes: Determination of stages one and two (with eGFR >59mL/min/1.73 m2) requires estimation of kidney damage for at least three months as defined by structural or functional abnormalities of the kidney, manifested by either:Pathological abnormalities or Markers of kidney damage (including abnormalities in the composition of the blood or urine or abnormalities in imaging tests). Lab Interpretation Abnormal (test code = 85993-7) [facility] WITH [id number] 11:13:24 Test Item Value Reference Range Interpretation Comments WBC (test code = See_Comment H [Automated 3490-2) message] The system which generated this result transmit ender reference range : 4.20 - 10.70 10*3/?L. The reference range was not used to interpret this result as normal/abnormal . RBC (test code = See_Comment L [Automated 909-8) message] The system which generated this result transmit ender reference range : 4.26 - 5.52 10*6/?L. The reference range was not used to interpret this result as normal/abnormal . HGB (test code = 10.9 g/dL 12.2-16.4 L 718-7) HCT (test code = 32.0 % 38.4-49.3 L 4544-3) MCV (test code = 88.9 fL 81.7-95.6 787-2) MCH (test code = 30.3 pg 26.1-32.7 785-6) MCHC (test code = 34.1 g/dL 31.2-35 786-4) RDW-SD (test code = 50.5 fL 38.5-51.6 90451-3) RDW-CV (test code = 15.6 % 12.1-15.4 H 788-0) PLT (test code = See_Comment H [Automated 777-3) message] The system which generated this result transmit ender reference range : 150 - 328 10*3/ ?L. The reference range was not u sed to interpret th is result as normal/abnormal . MPV (test code = 11.4 fL 9.8-13 03047-1) NRBC/100 WBC (test See_Comment [Automat ed code = 2447557302) message] The system which generated this result transmit ender reference range : 0.0 - 10.0 /100 WBCs. The reference range was not used to interpret this result as normal/abnormal . NRBC x10^3 (test code See_Comment [Auto mated = 9519962732) message] The system which generated this result transmit ender reference range : 10*3/?L. The reference range was not used to interpret this result as normal/abnormal . GRAN MAT (NEUT) % 89.9 % (test code = 770-8) IMM GRAN % (test code 1.90 % = 5647851593) LYMPH % (test code = 3.1 % 736-9) MONO % (test code = 4.7 % 5905-5) EOS % (test code = 0.1 % 713-8) BASO % (test code = 0.3 % 706-2) GRAN MAT x10^3(ANC) 24.50 10*3/uL 1.99-6.95 H (test code = 4094438276) IMM GRAN x10^3 (test 0.53 10*3/uL 0-0.06 H code = 8062132612) LYMPH x10^3 (test code 0.85 10*3/uL 1.09-3.23 L = 731-0) MONO x10^3 (test code 1.28 10*3/uL 0.36-1.02 H = 742-7) EOS x10^3 (test code = 0.03 10*3/uL 0.06-0.53 L 711-2) BASO x10^3 (test code 0.08 10*3/uL 0.01-0.09 = 704-7) HJ BODIES (test code = Present A 7793-3) HYPERSEG NEUTS (test Present See_Comment A [Autom ated code = 765-8) message] The system which generated this result transmit ender reference range : (none). The reference range was not used to interpret this result as normal/abnormal . Lab Interpretation Abnormal (test code = 70340-3) [facility] WITH [id number] 11:13:24 Test Item Value Reference Range Interpretation Comments WBC (test code = See_Comment H [Automated 8090-2) message] The system which generated this result transmit ender reference range : 4.20 - 10.70 10*3/?L. The reference range was not used to interpret this result as normal/abnormal . RBC (test code = See_Comment L [Automated 039-8) message] The system which generated this result transmit ender reference range : 4.26 - 5.52 10*6/?L. The reference range was not used to interpret this result as normal/abnormal . HGB (test code = 10.9 g/dL 12.2-16.4 L 718-7) HCT (test code = 32.0 % 38.4-49.3 L 4544-3) MCV (test code = 88.9 fL 81.7-95.6 787-2) MCH (test code = 30.3 pg 26.1-32.7 785-6) MCHC (test code = 34.1 g/dL 31.2-35 786-4) RDW-SD (test code = 50.5 fL 38.5-51.6 77297-0) RDW-CV (test code = 15.6 % 12.1-15.4 H 788-0) PLT (test code = See_Comment H [Automated 777-3) message] The system which generated this result transmit ender reference range : 150 - 328 10*3/ ?L. The reference range was not u sed to interpret th is result as normal/abnormal . MPV (test code = 11.4 fL 9.8-13 32711-0) NRBC/100 WBC (test See_Comment [Automat ed code = 7943903528) message] The system which generated this result transmit ender reference range : 0.0 - 10.0 /100 WBCs. The reference range was not used to interpret this result as normal/abnormal . NRBC x10^3 (test code See_Comment [Auto mated = 6578371917) message] The system which generated this result transmit ender reference range : 10*3/?L. The reference range was not used to interpret this result as normal/abnormal . GRAN MAT (NEUT) % 89.9 % (test code = 770-8) IMM GRAN % (test code 1.90 % = 7046330285) LYMPH % (test code = 3.1 % 736-9) MONO % (test code = 4.7 % 5905-5) EOS % (test code = 0.1 % 713-8) BASO % (test code = 0.3 % 706-2) GRAN MAT x10^3(ANC) 24.50 10*3/uL 1.99-6.95 H (test code = 8206314273) IMM GRAN x10^3 (test 0.53 10*3/uL 0-0.06 H code = 2550443413) LYMPH x10^3 (test code 0.85 10*3/uL 1.09-3.23 L = 731-0) MONO x10^3 (test code 1.28 10*3/uL 0.36-1.02 H = 742-7) EOS x10^3 (test code = 0.03 10*3/uL 0.06-0.53 L 711-2) BASO x10^3 (test code 0.08 10*3/uL 0.01-0.09 = 704-7) HJ BODIES (test code = Present A 7793-3) HYPERSEG NEUTS (test Present See_Comment A [Autom ated code = 765-8) message] The system which generated this result transmit ender reference range : (none). The reference range was not used to interpret this result as normal/abnormal . Lab Interpretation Abnormal (test code = 87859-3) [facility] WITH [id number] 11:13:24 Test Item Value Reference Range Interpretation Comments WBC (test code = See_Comment H [Automated 6690-2) message] The system which generated this result transmit ender reference range : 4.20 - 10.70 10*3/?L. The reference range was not used to interpret this result as normal/abnormal . RBC (test code = See_Comment L [Automated 789-8) message] The system which generated this result transmit ender reference range : 4.26 - 5.52 10*6/?L. The reference range was not used to interpret this result as normal/abnormal . HGB (test code = 10.9 g/dL 12.2-16.4 L 718-7) HCT (test code = 32.0 % 38.4-49.3 L 4544-3) MCV (test code = 88.9 fL 81.7-95.6 787-2) MCH (test code = 30.3 pg 26.1-32.7 785-6) MCHC (test code = 34.1 g/dL 31.2-35.0 786-4) RDW-SD (test code = 50.5 fL 38.5-51.6 73792-7) RDW-CV (test code = 15.6 % 12.1-15.4 H 788-0) PLT (test code = See_Comment H [Automated 777-3) message] The system which generated this result transmit ender reference range : 150 - 328 10*3/ ?L. The reference range was not u sed to interpret th is result as normal/abnormal . MPV (test code = 11.4 fL 9.8-13.0 89823-7) NRBC/100 WBC (test See_Comment [Automat ed code = 6440486788) message] The system which generated this result transmit ender reference range : 0.0 - 10.0 /100 WBCs. The reference range was not used to interpret this result as normal/abnormal . NRBC x10^3 (test code See_Comment [Auto mated = 6243240208) message] The system which generated this result transmit ender reference range : 10*3/?L. The reference range was not used to interpret this result as normal/abnormal . GRAN MAT (NEUT) % 89.9 % (test code = 770-8) IMM GRAN % (test code 1.90 % = 7431781744) LYMPH % (test code = 3.1 % 736-9) MONO % (test code = 4.7 % 5905-5) EOS % (test code = 0.1 % 713-8) BASO % (test code = 0.3 % 706-2) GRAN MAT x10^3(ANC) 24.50 10*3/uL 1.99-6.95 H (test code = 5249677022) IMM GRAN x10^3 (test 0.53 10*3/uL 0.00-0.06 H code = 6637532640) LYMPH x10^3 (test code 0.85 10*3/uL 1.09-3.23 L = 731-0) MONO x10^3 (test code 1.28 10*3/uL 0.36-1.02 H = 742-7) EOS x10^3 (test code = 0.03 10*3/uL 0.06-0.53 L 711-2) BASO x10^3 (test code 0.08 10*3/uL 0.01-0.09 = 704-7) HJ BODIES (test code = Present A 7793-3) HYPERSEG NEUTS (test Present See_Comment A [Autom ated code = 765-8) message] The system which generated this result transmit ender reference range : (none). The reference range was not used to interpret this result as normal/abnormal . Lab Interpretation Abnormal (test code = 23769-2) [facility] WITH [id number] 11:13:24 Test Item Value Reference Range Interpretation Comments WBC (test code = See_Comment H [Automated 6690-2) message] The system which generated this result transmit ender reference range : 4.20 - 10.70 10*3/?L. The reference range was not used to interpret this result as normal/abnormal . RBC (test code = See_Comment L [Automated 789-8) message] The system which generated this result transmit ender reference range : 4.26 - 5.52 10*6/?L. The reference range was not used to interpret this result as normal/abnormal . HGB (test code = 10.9 g/dL 12.2-16.4 L 718-7) HCT (test code = 32.0 % 38.4-49.3 L 4544-3) MCV (test code = 88.9 fL 81.7-95.6 787-2) MCH (test code = 30.3 pg 26.1-32.7 785-6) MCHC (test code = 34.1 g/dL 31.2-35.0 786-4) RDW-SD (test code = 50.5 fL 38.5-51.6 34011-2) RDW-CV (test code = 15.6 % 12.1-15.4 H 788-0) PLT (test code = See_Comment H [Automated 777-3) message] The system which generated this result transmit ender reference range : 150 - 328 10*3/ ?L. The reference range was not u sed to interpret th is result as normal/abnormal . MPV (test code = 11.4 fL 9.8-13.0 66420-7) NRBC/100 WBC (test See_Comment [Automat ed code = 5561714842) message] The system which generated this result transmit ender reference range : 0.0 - 10.0 /100 WBCs. The reference range was not used to interpret this result as normal/abnormal . NRBC x10^3 (test code See_Comment [Auto mated = 2568804265) message] The system which generated this result transmit ender reference range : 10*3/?L. The reference range was not used to interpret this result as normal/abnormal . GRAN MAT (NEUT) % 89.9 % (test code = 770-8) IMM GRAN % (test code 1.90 % = 6391647161) LYMPH % (test code = 3.1 % 736-9) MONO % (test code = 4.7 % 5905-5) EOS % (test code = 0.1 % 713-8) BASO % (test code = 0.3 % 706-2) GRAN MAT x10^3(ANC) 24.50 10*3/uL 1.99-6.95 H (test code = 3188292572) IMM GRAN x10^3 (test 0.53 10*3/uL 0.00-0.06 H code = 4272355082) LYMPH x10^3 (test code 0.85 10*3/uL 1.09-3.23 L = 731-0) MONO x10^3 (test code 1.28 10*3/uL 0.36-1.02 H = 742-7) EOS x10^3 (test code = 0.03 10*3/uL 0.06-0.53 L 711-2) BASO x10^3 (test code 0.08 10*3/uL 0.01-0.09 = 704-7) HJ BODIES (test code = Present A 7793-3) HYPERSEG NEUTS (test Present See_Comment A [Autom ated code = 765-8) message] The system which generated this result transmit ender reference range : (none). The reference range was not used to interpret this result as normal/abnormal . Lab Interpretation Abnormal (test code = 31473-2) [facility] GLUCOSE (AUTOMATED)2021-12-05 02:07:36 Test Item Value Reference Range Interpretation Comments POCT GLU (test code = 7465666199) 264 mg/dL 70-110 H Lab Interpretation (test code = Abnormal 34068-8) [facility] GLUCOSE (AUTOMATED)2021-12-05 02:07:36 Test Item Value Reference Range Interpretation Comments POCT GLU (test code = 7068117938) 264 mg/dL 70-110 H Lab Interpretation (test code = Abnormal 21281-9) [facility] GLUCOSE (AUTOMATED)2021-12-05 02:07:36 Test Item Value Reference Range Interpretation Comments POCT GLU (test code = 4689778714) 264 mg/dL 70-110 H Lab Interpretation (test code = Abnormal 26788-6) [facility] GLUCOSE (AUTOMATED)2021-12-05 02:07:36 Test Item Value Reference Range Interpretation Comments POCT GLU (test code = 1625618529) 264 mg/dL 70-110 H Lab Interpretation (test code = Abnormal 85873-0) [facility] [id number] 23:10:30 Test Item Value Reference Range Interpretation Comments LACTIC ACID (test code = 1.40 mmol/L 0.5-2.2 2218506040) Lab Interpretation (test code = Normal 93235-2) [facility] Acid Whole [id number] 23:10:30 Test Item Value Reference Range Interpretation Comments LACTIC ACID (test code = 1.40 mmol/L 0.5-2.2 2730393540) Lab Interpretation (test code = Normal 41638-5) [facility] Acid Whole [id number] 23:10:30 Test Item Value Reference Range Interpretation Comments LACTIC ACID (test code = 1.40 mmol/L 0.50-2.20 1843426404) Lab Interpretation (test code = Normal 93292-1) [facility] Acid Whole [id number] 23:10:30 Test Item Value Reference Range Interpretation Comments LACTIC ACID (test code = 1.40 mmol/L 0.50-2.20 5083620287) Lab Interpretation (test code = Normal 70478-9) [facility] GLUCOSE (AUTOMATED)2021-12-04 22:08:38 Test Item Value Reference Range Interpretation Comments POCT GLU (test code = 265 mg/dL 70-110 H Notifi ed Provider [id number]) Lab Interpretation (test Abnormal code = 17922-6) [facility] GLUCOSE (AUTOMATED)2021-12-04 22:08:38 Test Item Value Reference Range Interpretation Comments POCT GLU (test code = 265 mg/dL 70-110 H Notifi ed Provider [id number]) Lab Interpretation (test Abnormal code = 62389-5) [facility] GLUCOSE (AUTOMATED)2021-12-04 22:08:38 Test Item Value Reference Range Interpretation Comments POCT GLU (test code = 265 mg/dL 70-110 H Notifi ed Provider [id number]) Lab Interpretation (test Abnormal code = 76666-0) [facility] GLUCOSE (AUTOMATED)2021-12-04 22:08:38 Test Item Value Reference Range Interpretation Comments POCT GLU (test code = 265 mg/dL 70-110 H Notifi ed Provider [id number]) Lab Interpretation (test Abnormal code = 47665-5) [facility] [id number] 18:23:32 Test Item Value Reference Range Interpretation Comments LACTIC ACID (test code = 2.45 mmol/L 0.5-2.2 H 7800028611) Lab Interpretation (test code = Abnormal 10544-0) [facility] [id number] 18:23:32 Test Item Value Reference Range Interpretation Comments LACTIC ACID (test code = 2.45 mmol/L 0.5-2.2 H 2617261625) Lab Interpretation (test code = Abnormal 12766-3) [facility] Acid Whole [id number] 18:23:32 Test Item Value Reference Range Interpretation Comments LACTIC ACID (test code = 2.45 mmol/L 0.50-2.20 H 9223993450) Lab Interpretation (test code = Abnormal 72128-0) [facility] [id number] 18:23:32 Test Item Value Reference Range Interpretation Comments LACTIC ACID (test code = 2.45 mmol/L 0.50-2.20 H 2229641619) Lab Interpretation (test code = Abnormal 24975-9) [facility] GLUCOSE (AUTOMATED)2021-12-04 18:04:53 Test Item Value Reference Range Interpretation Comments POCT GLU (test code = 341 mg/dL 70-110 H Notifi ed Provider [id number]) Lab Interpretation (test Abnormal code = 56418-6) [facility] GLUCOSE (AUTOMATED)2021-12-04 18:04:53 Test Item Value Reference Range Interpretation Comments POCT GLU (test code = 341 mg/dL 70-110 H Notifi ed Provider [id number]) Lab Interpretation (test Abnormal code = 75989-0) [facility] GLUCOSE (AUTOMATED)2021-12-04 18:04:53 Test Item Value Reference Range Interpretation Comments POCT GLU (test code = 341 mg/dL 70-110 H Notifi ed Provider [id number]) Lab Interpretation (test Abnormal code = 21340-1) [facility] GLUCOSE (AUTOMATED)2021-12-04 18:04:53 Test Item Value Reference Range Interpretation Comments POCT GLU (test code = 341 mg/dL 70-110 H Notifi ed Provider [id number]) Lab Interpretation (test Abnormal code = 32835-8) [facility] GLUCOSE (AUTOMATED)2021-12-04 15:58:44 Test Item Value Reference Range Interpretation Comments POCT GLU (test code = 323 mg/dL 70-110 H Notifi ed Provider [id number]) Lab Interpretation (test Abnormal code = 34482-0) [facility] GLUCOSE (AUTOMATED)2021-12-04 15:58:44 Test Item Value Reference Range Interpretation Comments POCT GLU (test code = 323 mg/dL 70-110 H Notifi ed Provider [id number]) Lab Interpretation (test Abnormal code = 69652-8) [facility] GLUCOSE (AUTOMATED)2021-12-04 15:58:44 Test Item Value Reference Range Interpretation Comments POCT GLU (test code = 323 mg/dL 70-110 H Notifi ed Provider [id number]) Lab Interpretation (test Abnormal code = 07622-7) [facility] GLUCOSE (AUTOMATED)2021-12-04 15:58:44 Test Item Value Reference Range Interpretation Comments POCT GLU (test code = 323 mg/dL 70-110 H Notifi ed Provider [id number]) Lab Interpretation (test Abnormal code = 23882-2) [facility] GLUCOSE (AUTOMATED)2021-12-04 13:24:09 Test Item Value Reference Range Interpretation Comments POCT GLU (test code = 309 mg/dL 70-110 H Notifi ed Provider [id number]) Lab Interpretation (test Abnormal code = 88292-2) [facility] GLUCOSE (AUTOMATED)2021-12-04 13:24:09 Test Item Value Reference Range Interpretation Comments POCT GLU (test code = 309 mg/dL 70-110 H Notifi ed Provider [id number]) Lab Interpretation (test Abnormal code = 40980-6) [facility] GLUCOSE (AUTOMATED)2021-12-04 13:24:09 Test Item Value Reference Range Interpretation Comments POCT GLU (test code = 309 mg/dL 70-110 H Notifi ed Provider [id number]) Lab Interpretation (test Abnormal code = 73057-0[facility] 13:24:09 Test Item Value Reference Range Interpretation Comments POCT GLU (test code = 309 mg/dL 70-110 H Notifi ed Provider [id number]) Lab Interpretation (test Abnormal code = 05414-8) [facility] 08:12:19 Test Item Value Reference Range Interpretation Comments POCT GLU (test code = 3082730426) 270 mg/dL 70-110 H Lab Interpretation (test code = Abnormal 06334-1) [facility] 08:12:19 Test Item Value Reference Range Interpretation Comments POCT GLU (test code = 1130732327) 270 mg/dL 70-110 H Lab Interpretation (test code = Abnormal 83201-8) [facility] 08:12:19 Test Item Value Reference Range Interpretation Comments POCT GLU (test code = 8032941287) 270 mg/dL 70-110 H Lab Interpretation (test code = Abnormal 38162-1) [facility] 08:12:19 Test Item Value Reference Range Interpretation Comments POCT GLU (test code = 5246816786) 270 mg/dL 70-110 H Lab Interpretation (test code = Abnormal 60488-0) [facility] 04:57:53 Test Item Value Reference Range Interpretation Comments POCT GLU (test code = 0234188143) 476 mg/dL 70-110 HH EPEAT Lab Interpretation (test code = Abnormal 89297-2) [facility] 04:57:53 Test Item Value Reference Range Interpretation Comments POCT GLU (test code = 4189817249) 318 mg/dL 70-110 H Lab Interpretation (test code = Abnormal 29537-9) [facility] 04:57:53 Test Item Value Reference Range Interpretation Comments POCT GLU (test code = 3390931201) 476 mg/dL 70-110 HH EPEAT Lab Interpretation (test code = Abnormal 04473-6) [facility] GLUCOSE (AUTOMATED)2021-12-04 04:57:53 Test Item Value Reference Range Interpretation Comments POCT GLU (test code = 8888664336) 318 mg/dL 70-110 H Lab Interpretation (test code = Abnormal 25358-4) [facility] GLUCOSE (AUTOMATED)2021-12-04 04:57:53 Test Item Value Reference Range Interpretation Comments POCT GLU (test code = 5587680269) 476 mg/dL 70-110 HH EPEAT Lab Interpretation (test code = Abnormal 75570-5) [facility] GLUCOSE (AUTOMATED)2021-12-04 04:57:53 Test Item Value Reference Range Interpretation Comments POCT GLU (test code = 3477431300) 318 mg/dL 70-110 H Lab Interpretation (test code = Abnormal 62607-4) [facility] GLUCOSE (AUTOMATED)2021-12-04 04:57:53 Test Item Value Reference Range Interpretation Comments POCT GLU (test code = 3233076887) 476 mg/dL 70-110 HH EPEAT Lab Interpretation (test code = Abnormal 59097-8) [facility] GLUCOSE (AUTOMATED)2021-12-04 04:57:53 Test Item Value Reference Range Interpretation Comments POCT GLU (test code = 9052361847) 318 mg/dL 70-110 H Lab Interpretation (test code = Abnormal 71214-1) [facility] GLUCOSE (AUTOMATED)2021-12-04 00:11:32 Test Item Value Reference Range Interpretation Comments POCT GLU (test code = 1219003071) 324 mg/dL 70-110 H Lab Interpretation (test code = Abnormal 27651-0) [facility] GLUCOSE (AUTOMATED)2021-12-04 00:11:32 Test Item Value Reference Range Interpretation Comments POCT GLU (test code = 8883464706) 324 mg/dL 70-110 H Lab Interpretation (test code = Abnormal 75128-9) [facility] GLUCOSE (AUTOMATED)2021-12-04 00:11:32 Test Item Value Reference Range Interpretation Comments POCT GLU (test code = 1894150898) 324 mg/dL 70-110 H Lab Interpretation (test code = Abnormal 65861-3) [facility] GLUCOSE (AUTOMATED)2021-12-04 00:11:32 Test Item Value Reference Range Interpretation Comments POCT GLU (test code = 2882747755) 324 mg/dL 70-110 H Lab Interpretation (test code = Abnormal 74424-3) [facility] GLUCOSE (AUTOMATED)2021-12-03 22:00:54 Test Item Value Reference Range Interpretation Comments POCT GLU (test code = 290 mg/dL 70-110 H Notifi ed Provider [id number]) Lab Interpretation (test Abnormal code = 87175-8) [facility] GLUCOSE (AUTOMATED)2021-12-03 22:00:54 Test Item Value Reference Range Interpretation Comments POCT GLU (test code = 290 mg/dL 70-110 H Notifi ed Provider [id number]) Lab Interpretation (test Abnormal code = 66691-8) [facility] GLUCOSE (AUTOMATED)2021-12-03 22:00:54 Test Item Value Reference Range Interpretation Comments POCT GLU (test code = 290 mg/dL 70-110 H Notifi ed Provider [id number]) Lab Interpretation (test Abnormal code = 74440-8) [facility] GLUCOSE (AUTOMATED)2021-12-03 22:00:54 Test Item Value Reference Range Interpretation Comments POCT GLU (test code = 290 mg/dL 70-110 H Notifi ed Provider [id number]) Lab Interpretation (test Abnormal code = 27406-1) [facility] GLUCOSE (AUTOMATED)2021-12-03 17:54:41 Test Item Value Reference Range Interpretation Comments POCT GLU (test code = 235 mg/dL 70-110 H Notifi ed Provider [id number]) Lab Interpretation (test Abnormal code = 93265-4) [facility] GLUCOSE (AUTOMATED)2021-12-03 17:54:41 Test Item Value Reference Range Interpretation Comments POCT GLU (test code = 235 mg/dL 70-110 H Notifi ed Provider [id number]) Lab Interpretation (test Abnormal code = 46298-9) [facility] GLUCOSE (AUTOMATED)2021-12-03 17:54:41 Test Item Value Reference Range Interpretation Comments POCT GLU (test code = 235 mg/dL 70-110 H Notifi ed Provider [id number]) Lab Interpretation (test Abnormal code = 63059-6) [facility] GLUCOSE (AUTOMATED)2021-12-03 17:54:41 Test Item Value Reference Range Interpretation Comments POCT GLU (test code = 235 mg/dL 70-110 H Notifi ed Provider [id number]) Lab Interpretation (test Abnormal code = 19744-9) [facility] GLUCOSE (AUTOMATED)2021-12-03 17:07:01 Test Item Value Reference Range Interpretation Comments POCT GLU (test code = 3221980447) 247 mg/dL 70-110 H Lab Interpretation (test code = Abnormal 32928-2) [facility] GLUCOSE (AUTOMATED)2021-12-03 17:07:01 Test Item Value Reference Range Interpretation Comments POCT GLU (test code = 3370250102) 247 mg/dL 70-110 H Lab Interpretation (test code = Abnormal 03542-9) [facility] GLUCOSE (AUTOMATED)2021-12-03 17:07:01 Test Item Value Reference Range Interpretation Comments POCT GLU (test code = 3925720964) 247 mg/dL 70-110 H Lab Interpretation (test code = Abnormal 03015-6) [facility] GLUCOSE (AUTOMATED)2021-12-03 17:07:01 Test Item Value Reference Range Interpretation Comments POCT GLU (test code = 7912543400) 247 mg/dL 70-110 H Lab Interpretation (test code = Abnormal 81087-2) [facility] WITHOUT [id number] 17:05:29 Test Item Value Reference Range Interpretation Comments WBC (test code = 6690-2) See_Comment H [A utomated message] The system [employer] generated this result transmit ender reference range : 4.20 - 10.70 10*3/?L. The reference range was not used to interpret this result as normal/abnormal . RBC (test code = 789-8) See_Comment L [Au tomated message] The system [employer] generated this result transmit ender reference range : 4.26 - 5.52 10* 6/?L. The reference r sherice was not used to interpret this result as normal/abnormal . HGB (test code = 718-7) 10.3 g/dL 12.2-16.4 L HCT (test code = 4544-3) 30.6 % 38.4-49.3 L MCH (test code = 785-6) 30.5 pg 26.1-32.7 MCV (test code = 787-2) 90.5 fL 81.7-95.6 MCHC (test code = 786-4) 33.7 g/dL 31.2-35 PLT (test code = 777-3) See_Comment H [Au tomated message] The system [facility] generated this result transmit ender reference range : 150 - 328 10*3/?L. The reference range was not used to interpret this result as normal/abnormal . MPV (test code = 10.9 fL 9.8-13 34912-3) RDW-CV (test code = 15.6 % 12.1-15.4 H 788-0) RDW-SD (test code = 51.6 fL 38.5-51.6 02532-3) NRBC x10^3 (test code = See_Comment [Au tomated message] 5104848072) The system [facility] generated this result transmit ender reference range : 10*3/?L. The reference range was not used to interpret this result as normal/abnormal . NRBC/100 WBC (test code See_Comment [Au tomated message] = 3346039978) The system [facility] generated this result transmit ender reference range : 0.0 - 10.0 /100 WBC s. The reference r sherice was not used to interpret this result as normal/abnormal . IPF % (test code = 2448989460) Lab Interpretation (test Abnormal code = 56721-5) [facility] WITHOUT [id number] 17:05:29 Test Item Value Reference Range Interpretation Comments WBC (test code = 6690-2) See_Comment H [A utomated message] The system [facility] generated this result transmit ender reference range : 4.20 - 10.70 10*3/?L. The reference range was not used to interpret this result as normal/abnormal . RBC (test code = 789-8) See_Comment L [Au tomated message] The system [facility] generated this result transmit ender reference range : 4.26 - 5.52 10* 6/?L. The reference r sherice was not used to interpret this result as normal/abnormal . HGB (test code = 718-7) 10.3 g/dL 12.2-16.4 L HCT (test code = 4544-3) 30.6 % 38.4-49.3 L MCH (test code = 785-6) 30.5 pg 26.1-32.7 MCV (test code = 787-2) 90.5 fL 81.7-95.6 MCHC (test code = 786-4) 33.7 g/dL 31.2-35 PLT (test code = 777-3) See_Comment H [Au tomated message] The system [facility] generated this result transmit neder reference range : 150 - 328 10*3/?L. The reference range was not used to interpret this result as normal/abnormal . MPV (test code = 10.9 fL 9.8-13 40919-0) RDW-CV (test code = 15.6 % 12.1-15.4 H 788-0) RDW-SD (test code = 51.6 fL 38.5-51.6 41155-8) NRBC x10^3 (test code = See_Comment [Au tomated message] [id number]) The system [facility] generated this result transmit ender reference range : 10*3/?L. The reference range was not used to interpret this result as normal/abnormal . NRBC/100 WBC (test code See_Comment [Au tomated message] = 3086208272) The system [facility] generated this result transmit enedr reference range : 0.0 - 10.0 /100 WBC s. The reference r sherice was not used to interpret this result as normal/abnormal . IPF % (test code = 9124542734) Lab Interpretation (test Abnormal code = 77451-6) [facility] WITHOUT [id number] 17:05:29 Test Item Value Reference Range Interpretation Comments WBC (test code = 6690-2) See_Comment H [A utomated message] The system [facility] [employer] generated this result transmit ender reference range : 4.20 - 10.70 10*3/?L. The reference range was not used to interpret this result as normal/abnormal . RBC (test code = 789-8) See_Comment L [Au tomated message] The system [facility] generated this result transmit ender reference range : 4.26 - 5.52 10* 6/?L. The reference r sherice was not used to interpret this result as normal/abnormal . HGB (test code = 718-7) 10.3 g/dL 12.2-16.4 L HCT (test code = 4544-3) 30.6 % 38.4-49.3 L MCH (test code = 785-6) 30.5 pg 26.1-32.7 MCV (test code = 787-2) 90.5 fL 81.7-95.6 MCHC (test code = 786-4) 33.7 g/dL 31.2-35.0 PLT (test code = 777-3) See_Comment H [Au tomated message] The system [facility] generated this result transmit ender reference range : 150 - 328 10*3/?L. The reference range was not used to interpret this result as normal/abnormal . MPV (test code = 10.9 fL 9.8-13.0 41446-7) RDW-CV (test code = 15.6 % 12.1-15.4 H 788-0) RDW-SD (test code = 51.6 fL 38.5-51.6 72312-3) NRBC x10^3 (test code = See_Comment [Au tomated message] 2888766361) The system [facility] generated this result transmit ender reference range : 10*3/?L. The reference range was not used to interpret this result as normal/abnormal . NRBC/100 WBC (test code See_Comment [Au tomated message] = 3778177678) The system [facility] generated this result transmit ender reference range : 0.0 - 10.0 /100 WBC s. The reference r sherice was not used to interpret this result as normal/abnormal . IPF % (test code = 6403874500) Lab Interpretation (test Abnormal code = 64022-7) [facility] WITHOUT [id number] 17:05:29 Test Item Value Reference Range Interpretation Comments WBC (test code = 6690-2) See_Comment H [A utomated message] The system [facility] generated this result transmit ender reference range : 4.20 - 10.70 10*3/?L. The reference range was not used to interpret this result as normal/abnormal . RBC (test code = 789-8) See_Comment L [Au tomated message] The system [employer] generated this result transmit ender reference range : 4.26 - 5.52 10* 6/?L. The reference r sherice was not used to interpret this result as normal/abnormal . HGB (test code = 718-7) 10.3 g/dL 12.2-16.4 L HCT (test code = 4544-3) 30.6 % 38.4-49.3 L MCH (test code = 785-6) 30.5 pg 26.1-32.7 MCV (test code = 787-2) 90.5 fL 81.7-95.6 MCHC (test code = 786-4) 33.7 g/dL 31.2-35.0 PLT (test code = 777-3) See_Comment H [Au tomated message] The system [facility] generated this result transmit ender reference range : 150 - 328 10*3/?L. The reference range was not used to interpret this result as normal/abnormal . MPV (test code = 10.9 fL 9.8-13.0 25651-2) RDW-CV (test code = 15.6 % 12.1-15.4 H 788-0) RDW-SD (test code = 51.6 fL 38.5-51.6 90706-5) NRBC x10^3 (test code = See_Comment [Au tomated message] 7872784600) The system [employer] generated this result transmit ender reference range : 10*3/?L. The reference range was not used to interpret this result as normal/abnormal . NRBC/100 WBC (test code See_Comment [Au tomated message] = 4809539701) The system [facility] generated this result transmit ender reference range : 0.0 - 10.0 /100 WBC s. The reference r sherice was not used to interpret this result as normal/abnormal . IPF % (test code = 4708807732) Lab Interpretation (test Abnormal code = 98854-5) [facility] 16:39:01 Test Item Value Reference Range Interpretation Comments POCT GLU (test code = 5049227680) 275 mg/dL 70-110 H Lab Interpretation (test code = Abnormal 52148-8) [facility] GLUCOSE (AUTOMATED)2021-12-03 16:39:01 Test Item Value Reference Range Interpretation Comments POCT GLU (test code = 1174234182) 275 mg/dL 70-110 H Lab Interpretation (test code = Abnormal 82001-1) [facility] GLUCOSE (AUTOMATED)2021-12-03 16:39:01 Test Item Value Reference Range Interpretation Comments POCT GLU (test code = 9601708718) 275 mg/dL 70-110 H Lab Interpretation (test code = Abnormal 70888-3) [facility] GLUCOSE (AUTOMATED)2021-12-03 16:39:01 Test Item Value Reference Range Interpretation Comments POCT GLU (test code = 3285977878) 275 mg/dL 70-110 H Lab Interpretation (test code = Abnormal 64246-2) [facility] GLUCOSE (AUTOMATED)2021-12-03 15:37:16 Test Item Value Reference Range Interpretation Comments POCT GLU (test code = 1192992352) 265 mg/dL 70-110 H Lab Interpretation (test code = Abnormal 30680-6) [facility] GLUCOSE (AUTOMATED)2021-12-03 15:37:16 Test Item Value Reference Range Interpretation Comments POCT GLU (test code = 4234606213) 265 mg/dL 70-110 H Lab Interpretation (test code = Abnormal 90296-9) [facility] GLUCOSE (AUTOMATED)2021-12-03 15:37:16 Test Item Value Reference Range Interpretation Comments POCT GLU (test code = 8506387426) 265 mg/dL 70-110 H Lab Interpretation (test code = Abnormal 47319-2) [facility] GLUCOSE (AUTOMATED)2021-12-03 15:37:16 Test Item Value Reference Range Interpretation Comments POCT GLU (test code = 6719888425) 265 mg/dL 70-110 H Lab Interpretation (test code = Abnormal 51002-7) [facility] GLUCOSE (AUTOMATED)2021-12-03 14:30:11 Test Item Value Reference Range Interpretation Comments POCT GLU (test code = 1637865255) 289 mg/dL 70-110 H Lab Interpretation (test code = Abnormal 46426-3) [facility] GLUCOSE (AUTOMATED)2021-12-03 14:30:11 Test Item Value Reference Range Interpretation Comments POCT GLU (test code = 5737095313) 289 mg/dL 70-110 H Lab Interpretation (test code = Abnormal 14385-7) [facility] GLUCOSE (AUTOMATED)2021-12-03 14:30:11 Test Item Value Reference Range Interpretation Comments POCT GLU (test code = 9108531636) 289 mg/dL 70-110 H Lab Interpretation (test code = Abnormal 73955-0) [facility] GLUCOSE (AUTOMATED)2021-12-03 14:30:11 Test Item Value Reference Range Interpretation Comments POCT GLU (test code = 9838375341) 289 mg/dL 70-110 H Lab Interpretation (test code = Abnormal 06679-6) [facility] GLUCOSE (AUTOMATED)2021-12-03 12:18:05 Test Item Value Reference Range Interpretation Comments POCT GLU (test code = 297 mg/dL 70-110 H Notifi ed Provider [id number]) Lab Interpretation (test Abnormal code = 03855-0) [facility] GLUCOSE (AUTOMATED)2021-12-03 12:18:05 Test Item Value Reference Range Interpretation Comments POCT GLU (test code = 297 mg/dL 70-110 H Notifi ed Provider [id number]) Lab Interpretation (test Abnormal code = 57008-1) [facility] GLUCOSE (AUTOMATED)2021-12-03 12:18:05 Test Item Value Reference Range Interpretation Comments POCT GLU (test code = 297 mg/dL 70-110 H Notifi ed Provider [id number]) Lab Interpretation (test Abnormal code = 03799-5) [facility] GLUCOSE (AUTOMATED)2021-12-03 12:18:05 Test Item Value Reference Range Interpretation Comments POCT GLU (test code = 297 mg/dL 70-110 H Notifi ed Provider [id number]) Lab Interpretation (test Abnormal code = 08235-8) [facility] GLUCOSE (AUTOMATED)2021-12-03 11:09:29 Test Item Value Reference Range Interpretation Comments POCT GLU (test code = 303 mg/dL 70-110 H Notifi ed Provider [id number]) Lab Interpretation (test Abnormal code = 33380-6) [facility] GLUCOSE (AUTOMATED)2021-12-03 11:09:29 Test Item Value Reference Range Interpretation Comments POCT GLU (test code = 303 mg/dL 70-110 H Notifi ed Provider [id number]) Lab Interpretation (test Abnormal code = 23887-4) [facility] GLUCOSE (AUTOMATED)2021-12-03 11:09:29 Test Item Value Reference Range Interpretation Comments POCT GLU (test code = 303 mg/dL 70-110 H Notifi ed Provider [id number]) Lab Interpretation (test Abnormal code = 53546-7) [facility] GLUCOSE (AUTOMATED)2021-12-03 11:09:29 Test Item Value Reference Range Interpretation Comments POCT GLU (test code = 303 mg/dL 70-110 H Notifi ed Provider [id number]) Lab Interpretation (test Abnormal code = 39906-9) [facility] GLUCOSE (AUTOMATED)2021-12-03 06:51:01 Test Item Value Reference Range Interpretation Comments POCT GLU (test code = 2014959018) 317 mg/dL 70-110 H Lab Interpretation (test code = Abnormal 70743-6) [facility] GLUCOSE (AUTOMATED)2021-12-03 06:51:01 Test Item Value Reference Range Interpretation Comments POCT GLU (test code = 6391089635) 317 mg/dL 70-110 H Lab Interpretation (test code = Abnormal 49465-9) [facility] GLUCOSE (AUTOMATED)2021-12-03 06:51:01 Test Item Value Reference Range Interpretation Comments POCT GLU (test code = 8615520056) 317 mg/dL 70-110 H Lab Interpretation (test code = Abnormal 74590-2) [facility] GLUCOSE (AUTOMATED)2021-12-03 06:51:01 Test Item Value Reference Range Interpretation Comments POCT GLU (test code = 4372102302) 317 mg/dL 70-110 H Lab Interpretation (test code = Abnormal 64972-4) [facility]Total Cholesterol, Triglycerides, HDL) - [id number] 03:25:49 Test Item Value Reference Range Interpretation Comments CHOL (test code = 150 mg/dL 120-200 6429965348) HDL (test code = 19 mg/dL See_Comment L [Automated message] 4337570205) The system [employer] generated this result transmit ender reference range : >=40. The refer ence range was not u sed to interpret th is result as normal/abnormal . HDLC RATIO (test code = See_Comment H [Au tomated message] 4593004366) The system [employer] generated this result transmit ender reference range : <=5.0. The refe rence range was not u sed to interpret th is result as normal/abnormal . TRIG (test code = 209 mg/dL 30-170 H 2461010674) LDL CHOL (test code = 89 mg/dL See_Comment [Auto mated message] 43102-2) The system [employer] generated this result transmit ender reference range : <=160. The refe rence range was not u sed to interpret th is result as normal/abnormal . VLDL (test code = 42 mg/dL 5-60 9411877097) Lab Interpretation (test Abnormal code = 04177-7) [facility] (Total Cholesterol, Triglycerides, HDL) - [id number] 03:25:49 Test Item Value Reference Range Interpretation Comments CHOL (test code = 150 mg/dL 120-200 0366653794) HDL (test code = 19 mg/dL See_Comment L [Automated message] 0324245950) The system [employer] generated this result transmit ender reference range : >=40. The refer ence range was not u sed to interpret th is result as normal/abnormal . HDLC RATIO (test code = See_Comment H [Au tomated message] 6915562838) The system [employer] generated this result transmit ender reference range : <=5.0. The refe rence range was not u sed to interpret th is result as normal/abnormal . TRIG (test code = 209 mg/dL 30-170 H 9316608894) LDL CHOL (test code = 89 mg/dL See_Comment [Auto mated message] 94193-2) The system [employer] generated this result transmit ender reference range : <=160. The refe rence range was not u sed to interpret th is result as normal/abnormal . VLDL (test code = 42 mg/dL 5-60 8200371361) Lab Interpretation (test Abnormal code = 67506-2) [facility] (Total Cholesterol, Triglycerides, HDL) - [id number] 03:25:49 Test Item Value Reference Range Interpretation Comments CHOL (test code = 150 mg/dL 120-200 3098620868) HDL (test code = 19 mg/dL See_Comment L [Automated message] 1166111506) The system [employer] generated this result transmit ender reference range : >=40. The refer ence range was not u sed to interpret th is result as normal/abnormal . HDLC RATIO (test code = See_Comment H [Au tomated message] 3508571095) The system [employer] generated this result transmit ender reference range : <=5.0. The refe rence range was not u sed to interpret th is result as normal/abnormal . TRIG (test code = 209 mg/dL 30-170 H 4331385337) LDL CHOL (test code = 89 mg/dL See_Comment [Auto mated message] 73561-6) The system [employer] generated this result transmit ender reference range : <=160. The refe rence range was not u sed to interpret th is result as normal/abnormal . VLDL (test code = 42 mg/dL 5-60 1630917530) Lab Interpretation (test Abnormal code = 52313-8) [facility] (Total Cholesterol, Triglycerides, HDL) - [id number] 03:25:49 Test Item Value Reference Range Interpretation Comments CHOL (test code = 150 mg/dL 120-200 1971965086) HDL (test code = 19 mg/dL See_Comment L [Automated message] 4712468968) The system [employer] generated this result transmit ender reference range : >=40. The refer ence range was not u sed to interpret th is result as normal/abnormal . HDLC RATIO (test code = See_Comment H [Au tomated message] 3034459003) The system [employer] generated this result transmit ender reference range : <=5.0. The refe rence range was not u sed to interpret th is result as normal/abnormal . TRIG (test code = 209 mg/dL 30-170 H 8229566225) LDL CHOL (test code = 89 mg/dL See_Comment [Auto mated message] 49945-9) The system [employer] generated this result transmit ender reference range : <=160. The refe rence range was not u sed to interpret th is result as normal/abnormal . VLDL (test code = 42 mg/dL 5-60 2728105593) Lab Interpretation (test Abnormal code = 37241-7) [facility] GLUCOSE (AUTOMATED)2021-12-03 03:05:58 Test Item Value Reference Range Interpretation Comments POCT GLU (test code = 9799822864) 347 mg/dL 70-110 H Lab Interpretation (test code = Abnormal 58648-7) [facility] GLUCOSE (AUTOMATED)2021-12-03 03:05:58 Test Item Value Reference Range Interpretation Comments POCT GLU (test code = 2229013340) 347 mg/dL 70-110 H Lab Interpretation (test code = Abnormal 93667-9) [facility] GLUCOSE (AUTOMATED)2021-12-03 03:05:58 Test Item Value Reference Range Interpretation Comments POCT GLU (test code = 4750531670) 347 mg/dL 70-110 H Lab Interpretation (test code = Abnormal 55575-8) [facility] GLUCOSE (AUTOMATED)2021-12-03 03:05:58 Test Item Value Reference Range Interpretation Comments POCT GLU (test code = 9751089955) 347 mg/dL 70-110 H Lab Interpretation (test code = Abnormal 53322-3) [facility] GLUCOSE (AUTOMATED)2021-12-02 20:20:22 Test Item Value Reference Range Interpretation Comments POCT GLU (test code = 3060817653) 362 mg/dL 70-110 H Lab Interpretation (test code = Abnormal 57906-2) [facility] GLUCOSE (AUTOMATED)2021-12-02 20:20:22 Test Item Value Reference Range Interpretation Comments POCT GLU (test code = 5550107739) 362 mg/dL 70-110 H Lab Interpretation (test code = Abnormal 26651-8) [facility] GLUCOSE (AUTOMATED)2021-12-02 20:20:22 Test Item Value Reference Range Interpretation Comments POCT GLU (test code = 6385155187) 362 mg/dL 70-110 H Lab Interpretation (test code = Abnormal 19373-4) [facility] GLUCOSE (AUTOMATED)2021-12-02 20:20:22 Test Item Value Reference Range Interpretation Comments POCT GLU (test code = 8657005689) 362 mg/dL 70-110 H Lab Interpretation (test code = Abnormal 16124-6) [facility] GLUCOSE(AGE >30DAYS)2021-12-02 20:16:00 Test Item Value Reference Range Interpretation Comments POCT Glu (age>30days) (test code = 362 mg/dL 70-110 A 3342) Lab Interpretation (test code = Abnormal 18609-2) [facility] GLUCOSE(AGE >30DAYS)2021-12-02 20:16:00 Test Item Value Reference Range Interpretation Comments POCT Glu (age>30days) (test code = 362 mg/dL 70-110 A 3342) Lab Interpretation (test code = Abnormal 86282-1) [facility] GLUCOSE(AGE >30DAYS)2021-12-02 20:16:00 Test Item Value Reference Range Interpretation Comments POCT Glu (age>30days) (test code = 362 mg/dL 70-110 A 3342) Lab Interpretation (test code = Abnormal 47938-0) [facility] GLUCOSE(AGE >30DAYS)2021-12-02 20:16:00 Test Item Value Reference Range Interpretation Comments POCT Glu (age>30days) (test code = 362 mg/dL 70-110 A 3342) Lab Interpretation (test code = Abnormal 12191-0) [facility] GLUCOSE (AUTOMATED)2021-12-02 20:06:00 Test Item Value Reference Range Interpretation Comments POCT GLU (test code = 8421032249) 456 mg/dL 70-110 HH Lab Interpretation (test code = Abnormal 59941-3) [facility] GLUCOSE (AUTOMATED)2021-12-02 20:06:00 Test Item Value Reference Range Interpretation Comments POCT GLU (test code = 0536008761) 456 mg/dL 70-110 HH Lab Interpretation (test code = Abnormal 10403-9) [facility] GLUCOSE (AUTOMATED)2021-12-02 20:06:00 Test Item Value Reference Range Interpretation Comments POCT GLU (test code = 0800191478) 456 mg/dL 70-110 HH Lab Interpretation (test code = Abnormal 49209-4) [facility] GLUCOSE (AUTOMATED)2021-12-02 20:06:00 Test Item Value Reference Range Interpretation Comments POCT GLU (test code = 6922269483) 456 mg/dL 70-110 HH Lab Interpretation (test code = Abnormal 81235-1) [facility] [id number] 18:13:04 Test Item Value Reference Range Interpretation Comments PH (test code = 7.32-7.42 1689758940) PCO2 VICTORIANO (test code = See_Comment L [Auto mated 9466925487) message] The sy stem which generated this result transmitted reference range : 41 - 51 mmHg. The reference range was not used to interpret this result as normal/abnormal . PO2 VICTORIANO (test code = See_Comment L [Autom ated 1557348117) message] The sy stem which generated this result transmitted reference range : 25 - 40 mmHg. The reference range was not used to interpret this result as normal/abnormal . HCO3 VICTORIANO (test code = See_Comment [Auto mated 9213974281) message] The sy stem which generated this result transmitted reference range : 24 - 28 mEq/L. The reference range was not used to interpret this result as normal/abnormal . AC VBE(BEAKER) (test mEq/L code = 6307902015) THB VICTORIANO (test code = 12.7 g/dL 13.5-18 L 1330330098) %O2HB VICTORIANO (test code = 36.8 % 52-63 L 5265695263) %COHB VICTORIANO (test code = 1.3 % 0-1.5 7358666031) %METHB VICTORIANO (test code = 0.2 % 0.4-1.5 L 4268501986) VOL%O2 VICTORIANO (test code = 6.6 % 6-12 6277398116) NA (test code = 131 mmol/L 135-145 L 5909195986) K+ (test code = 4.6 mmol/L 3.5-5 4247737332) AC CA IONZ (test code = 4.50 mg/dL 4.5-5.3 3728979817) GLUCOSE (test code = 407 mg/dL 70-110 H 1323038892) LACTIC ACID (test code 3.96 mmol/L 0.5-2.2 H = 9145559713) Lab Interpretation Abnormal (test code = 35992-3) [facility] [id number] 18:13:04 Test Item Value Reference Range Interpretation Comments PH (test code = 7.32-7.42 7639045416) PCO2 VICTORIANO (test code = See_Comment L [Auto mated 6252356351) message] The sy stem which generated this result transmitted reference range : 41 - 51 mmHg. The reference range was not used to interpret this result as normal/abnormal . PO2 VICTORIANO (test code = See_Comment L [Autom ated 9536998617) message] The sy stem which generated this result transmitted reference range : 25 - 40 mmHg. The reference range was not used to interpret this result as normal/abnormal . HCO3 VICTORIANO (test code = See_Comment [Auto mated 1273549232) message] The sy stem which generated this result transmitted reference range : 24 - 28 mEq/L. The reference range was not used to interpret this result as normal/abnormal . AC VBE(BEAKER) (test mEq/L code = 5400154006) THB VICTORIANO (test code = 12.7 g/dL 13.5-18 L 6628957010) %O2HB VICTORIANO (test code = 36.8 % 52-63 L 6377680400) %COHB VICTORIANO (test code = 1.3 % 0-1.5 5054725797) %METHB VICTORIANO (test code = 0.2 % 0.4-1.5 L 1619513558) VOL%O2 VICTORIANO (test code = 6.6 % 6-12 7237785678) NA (test code = 131 mmol/L 135-145 L 3740422074) K+ (test code = 4.6 mmol/L 3.5-5 1406317235) AC CA IONZ (test code = 4.50 mg/dL 4.5-5.3 4263003143) GLUCOSE (test code = 407 mg/dL 70-110 H 7768529420) LACTIC ACID (test code 3.96 mmol/L 0.5-2.2 H = 8674044448) Lab Interpretation Abnormal (test code = 48844-2) [facility] [id number] 18:13:04 Test Item Value Reference Range Interpretation Comments PH (test code = 7.32-7.42 4604318776) PCO2 VICTORIANO (test code = See_Comment L [Auto mated 6206107226) message] The sy stem which generated this result transmitted reference range : 41 - 51 mmHg. The reference range was not used to interpret this result as normal/abnormal . PO2 VICTORIANO (test code = See_Comment L [Autom ated 4302353822) message] The sy stem which generated this result transmitted reference range : 25 - 40 mmHg. The reference range was not used to interpret this result as normal/abnormal . HCO3 VICTORIANO (test code = See_Comment [Auto mated [id number]) message] The sy stem which generated this result transmitted reference range : 24 - 28 mEq/L. The reference range was not used to interpret this result as normal/abnormal . AC VBE(BEAKER) (test mEq/L code = 4050415178) THB VICTORIANO (test code = 12.7 g/dL 13.5-18.0 L 0922492635) %O2HB VICTORIANO (test code = 36.8 % 52.0-63.0 L 0306747771) %COHB VICTORIANO (test code = 1.3 % 0.0-1.5 7699738359) %METHB VICTORIANO (test code = 0.2 % 0.4-1.5 L 9710094151) VOL%O2 VICTORIANO (test code = 6.6 % 6.0-12.0 2041163046) NA (test code = 131 mmol/L 135-145 L 2046450917) K+ (test code = 4.6 mmol/L 3.5-5.0 6693120728) AC CA IONZ (test code = 4.50 mg/dL 4.50-5.30 4207380091) GLUCOSE (test code = 407 mg/dL 70-110 H 5919542490) LACTIC ACID (test code 3.96 mmol/L 0.50-2.20 H = 3249512575) Lab Interpretation Abnormal (test code = 43367-6) [facility] [id number] 18:13:04 Test Item Value Reference Range Interpretation Comments PH (test code = 7.32-7.42 3019264127) PCO2 VICTORIANO (test code = See_Comment L [Auto mated 7189097307) message] The sy stem which generated this result transmitted reference range : 41 - 51 mmHg. The reference range was not used to interpret this result as normal/abnormal . PO2 VICTORIANO (test code = See_Comment L [Autom ated 4021792241) message] The sy stem which generated this result transmitted reference range : 25 - 40 mmHg. The reference range was not used to interpret this result as normal/abnormal . HCO3 VICTORIANO (test code = See_Comment [Auto mated 9943313784) message] The sy stem which generated this result transmitted reference range : 24 - 28 mEq/L. The reference range was not used to interpret this result as normal/abnormal . AC VBE(BEAKER) (test mEq/L code = 6141666968) THB VICTORIANO (test code = 12.7 g/dL 13.5-18.0 L 4849107399) %O2HB VICTORIANO (test code = 36.8 % 52.0-63.0 L 5392301219) %COHB VICTORIANO (test code = 1.3 % 0.0-1.5 9425629588) %METHB VICTORIANO (test code = 0.2 % 0.4-1.5 L 0090923352) VOL%O2 VICTORIANO (test code = 6.6 % 6.0-12.0 4151658606) NA (test code = 131 mmol/L 135-145 L 7980291526) K+ (test code = 4.6 mmol/L 3.5-5.0 8195523084) AC CA IONZ (test code = 4.50 mg/dL 4.50-5.30 2097682173) GLUCOSE (test code = 407 mg/dL 70-110 H 0800658867) LACTIC ACID (test code 3.96 mmol/L 0.50-2.20 H = 0920486346) Lab Interpretation Abnormal (test code = 71306-7) [facility] GLUCOSE(AGE >30DAYS)2021-12-02 17:39:00 Test Item Value Reference Range Interpretation Comments POCT Glu (age>30days) (test code = 456 mg/dL 70-110 A 3342) Lab Interpretation (test code = Abnormal 17192-5) [facility] GLUCOSE(AGE >30DAYS)2021-12-02 17:39:00 Test Item Value Reference Range Interpretation Comments POCT Glu (age>30days) (test code = 456 mg/dL 70-110 A 3342) Lab Interpretation (test code = Abnormal 54614-7) [facility]DAYS[facility]20[facility]-02 17:39:00 Test Item Value Reference Range Interpretation Comments POCT Glu (age>30days) (test code = 456 mg/dL 70-110 A 3342) Lab Interpretation (test code = Abnormal 85652-3) [facility] GLUCOSE(AGE >30DAYS)2021-12-02 17:39:00 Test Item Value Reference Range Interpretation Comments POCT Glu (age>30days) (test code = 456 mg/dL 70-110 A 3342) Lab Interpretation (test code = Abnormal 17301-3) [facility] Metabolic [id number] 10:11:00 Test Item Value Reference Range Interpretation Comments Glucose, Serum 85 mg/dL 65-99 (test code = 2073208) BUN (test code = 15 mg/dL 8-27 20100616) Creatinine, Serum 1.14 mg/dL 0.76-1.27 (test code = 8270689) EGFR (test code = 70 mL/min/1.73 >59 0972367031) BUN/Creatinine 13 10-24 Ratio (test code = 4624490) Sodium, Serum 137 mmol/L 134-144 (test code = 1922964) Potassium, Serum 4.8 mmol/L 3.5-5.2 (test code = 0813996) Chloride, Serum 100 mmol/L 96-106 (test code = 3430222) Carbon Dioxide, 23 mmol/L 20-29 Total (test code = 0223840) Calcium, Serum 9.8 mg/dL 8.6-10.2 (test code = 7553461) LUIS ANGEL (test code = Specimen Comment: A LUIS ANGEL) courtesy copy of this report has been sent to [facility] Comment: Health SysPerformed at: 01 - [facility] [address] [place] [id number] Director: Seng Mayen MD, Phone: [phone] [facility] function [id number] 10:11:00 Test Item Value Reference Interpretation Comments Range Protein, Total, 7.9 g/dL 6.0-8.5 Serum (test code = 20100620) Albumin, Serum 4.0 g/dL 3.8-4.8 (test code = 20100621) Bilirubin, Total 0.4 mg/dL 0.0-1.2 (test code = 20100622) Bilirubin, Direct 0.16 mg/dL 0.00-0.40 (test code = 0741276) Alkaline 278 See_Comment H [Automated Phosphatase, S message] The (test code = system which 68-6) generated this result transmitted reference range : 44 - 121 IU/L. The reference range was not used to interpret this result as normal/abnormal . AST (SGOT) (test 35 See_Comment [Automated code = 20100626) message] The system which generated this result transmitted reference range : 0 - 40 IU/L. Th e reference range was not used to interpret this result as normal/abnormal . ALT (SGPT) (test 41 See_Comment [Automated code = ) message] The system which generated this result transmitted reference range : 0 - 44 IU/L. Th e reference range was not used to interpret this result as normal/abnormal . LUIS ANGEL (test code = Specimen Comment: A LUIS ANGEL) courtesy copy of this report has been sent to [facility] Comment: Health SysPerformed at: 01 - [facility] [id number] Director: Seng Mayen MD, Phone: [phone] Lab Interpretation Abnormal (test code = 93675-0) [facility] with platelet count + automated [id number] 10:11:00 Test Item Value Reference Interpretation Comments Range WBC (test code = 11.9 See_Comment H [Automated ) message] The system which generated this result transmitted reference range : 3.4 - 10.8 x10E3/uL. The reference range was not used to interpret this result as normal/abnormal . RBC (test code = 4.88 See_Comment [Automated 439-8) message] The system which generated this result transmitted reference range : 4.14 - 5.80 x10E6/uL. The reference range was not used to interpret this result as normal/abnormal . Hemoglobin (test 13.7 g/dL 13.0-17.7 code = ) Hematocrit (test 41.6 % 37.5-51.0 code = ) MCV (test code = 85 fL 79-97 ) MCH (test code = 28.1 pg 26.6-33.0 ) MCHC (test code = 32.9 g/dL 31.5-35.7 ) RDW (test code = 13.8 % 11.6-15.4 ) Platelets (test 467 See_Comment H [Automated code = ) message] The system which generated this result transmitted reference range : 150 - 450 x10E3/uL. The reference range was not used to interpret this result as normal/abnormal . % Neutros (test 58 % Not Estab. code = ) % Lymphs (test code 29 % Not Estab. = ) % Monos (test code 9 % Not Estab. = ) % Eos (test code = 2 % Not Estab. ) % Baso (test code = 1 % Not Estab. ) # Neutros (test 7.1 See_Comment H [Automated code = ) message] The system which generated this result transmitted reference range : 1.4 - 7.0 x10E3/uL. The reference range was not used to interpret this result as normal/abnormal . # Lymphs (test code 3.4 See_Comment H [Automa ender = ) message] The system which generated this result transmitted reference range : 0.7 - 3.1 x10E3/uL. The reference range was not used to interpret this result as normal/abnormal . # Monos (test code 1.1 See_Comment H [Automat ed = ) message] The system which generated this result transmitted reference range : 0.1 - 0.9 x10E3/uL. The reference range was not used to interpret this result as normal/abnormal . # Eos (test code = 0.2 See_Comment [Automat ed ) message] The system which generated this result transmitted reference range : 0.0 - 0.4 x10E3/uL. The reference range was not used to interpret this result as normal/abnormal . Baso (Absolute) 0.1 See_Comment [Automated (test code = message] The ) system which generated this result transmitted reference range : 0.0 - 0.2 x10E3/uL. The reference range was not used to interpret this result as normal/abnormal . % Immature Grans 1 % Not Estab. (test code = ) # Immature Grans 0.1 See_Comment [Automated (test code = message] The ) system which generated this result transmitted reference range : 0.0 - 0.1 x10E3/uL. The reference range was not used to interpret this result as normal/abnormal . LUIS ANGEL (test code = Specimen Comment: A LUIS ANGEL) courtesy copy of this report has been sent to [facility] Comment: Health SysPerformed at: - [facility] [address] [id number] Director: Seng Mayen MD, Phone: [phone] Lab Interpretation Abnormal (test code = 97339-9) [facility] Hospital[facility]-time/[id number] 10:11:00 Test Item Value Reference Range Interpretation Comments INR (test code = 1.1 0.9-1.2 Reference ) interval is for non-anticoagula t ed patients.Sugges t ed INR therapeutic range for Vitamin Kantagonist therapy: Standard Dose (moderate intensity therapeutic range): 2.0 - 3.0 Higher intensity therapeutic range 2.5 - 3.5 Prothrombin Time 10.8 See_Comment [Automated (test code = message] The ) system which generated this result transmitted reference range : 9.1 - 12.0 sec. The reference range was not used to interpret this result as normal/abnormal . LUIS ANGEL (test code = Specimen Comment: A LUIS ANGEL) courtesy copy of this report has been sent to [facility] Comment: Health SysPerformed at: - [facility] [address] [place], [place] [id number] Director: Seng Mayen MD, Phone: [phone] [facility] HospitalAlpha fetoprotein (AFP), tumor [id number] 10:11:00 Test Item Value Reference Interpretation Comments Range AFP, 1.9 ng/mL 0.0-8.4 Tika Diagnosti cs Serum, Electrochemilum inescence Tumor Immunoassay (EC LUCI)Values Marker obtained with sarah iffermarguerite (test code assay methods o r kits = 6468415) cannot beused interchangeably . Results cannot be inter preted as absoluteevidenc e of the presence or abs ence of malignant disea se.This test is not interpre table in female s. LUIS ANGEL (test Specimen Comment: A code = courtesy copy of LUIS ANGEL) this report has been sent to [facility] Comment: Health SysPerformed at: - [facility] [address] [id number] Director: Seng Mayen MD, Phone: [phone] [facility] Metabolic [id number] 10:11:00 Test Item Value Reference Range Interpretation Comments Glucose, Serum 85 mg/dL 65-99 (test code = 20100615) BUN (test code = 15 mg/dL 8-27 20100616) Creatinine, Serum 1.14 mg/dL 0.76-1.27 (test code = 1235127) EGFR (test code = 70 mL/min/1.73 >59 5858239809) BUN/Creatinine 13 10-24 Ratio (test code = 3539168) Sodium, Serum 137 mmol/L 134-144 (test code = 1346763) Potassium, Serum 4.8 mmol/L 3.5-5.2 (test code = 1470295) Chloride, Serum 100 mmol/L 96-106 (test code = 0105823) Carbon Dioxide, 23 mmol/L 20-29 Total (test code = 8320210) Calcium, Serum 9.8 mg/dL 8.6-10.2 (test code = 5591363) LUIS ANGEL (test code = Specimen Comment: A LUIS ANGEL) courtesy copy of this report has been sent to [facility] Comment: Health SysPerformed at: - [facility] [address] [place], [place] [id number] Director: Seng Mayen MD, Phone: [phone] [facility] HospitalHepatic function [id number] 10:11:00 Test Item Value Reference Interpretation Comments Range Protein, Total, 7.9 g/dL 6.0-8.5 Serum (test code = 20100620) Albumin, Serum 4.0 g/dL 3.8-4.8 (test code = 2739880) Bilirubin, Total 0.4 mg/dL 0.0-1.2 (test code = 20100622) Bilirubin, Direct 0.16 mg/dL 0.00-0.40 (test code = 20100704) Alkaline 278 See_Comment H [Automated Phosphatase, S message] The (test code = system which 68-6) generated this result transmitted reference range : 44 - 121 IU/L. The reference range was not used to interpret this result as normal/abnormal . AST (SGOT) (test 35 See_Comment [Automated code = 20100626) message] The system which generated this result transmitted reference range : 0 - 40 IU/L. Th e reference range was not used to interpret this result as normal/abnormal . ALT (SGPT) (test 41 See_Comment [Automated code = ) message] The system which generated this result transmitted reference range : 0 - 44 IU/L. Th e reference range was not used to interpret this result as normal/abnormal . LUIS ANGEL (test code = Specimen Comment: A LUIS ANGEL) courtesy copy of this report has been sent to [facility] Comment: Health SysPerformed at: 01 - [facility] [address] [id number] Director: Seng Mayen MD, Phone: [phone] Lab Interpretation Abnormal (test code = 38585-5) [facility] with platelet count + automated [id number] 10:11:00 Test Item Value Reference Interpretation Comments Range WBC (test code = 11.9 See_Comment H [Automated ) message] The system which generated this result transmitted reference range : 3.4 - 10.8 x10E3/uL. The reference range was not used to interpret this result as normal/abnormal . RBC (test code = 4.88 See_Comment [Automated 789-8) message] The system which generated this result transmitted reference range : 4.14 - 5.80 x10E6/uL. The reference range was not used to interpret this result as normal/abnormal . Hemoglobin (test 13.7 g/dL 13.0-17.7 code = ) Hematocrit (test 41.6 % 37.5-51.0 code = ) MCV (test code = 85 fL 79-97 ) MCH (test code = 28.1 pg 26.6-33.0 ) MCHC (test code = 32.9 g/dL 31.5-35.7 ) RDW (test code = 13.8 % 11.6-15.4 ) Platelets (test 467 See_Comment H [Automated code = ) message] The system which generated this result transmitted reference range : 150 - 450 x10E3/uL. The reference range was not used to interpret this result as normal/abnormal . % Neutros (test 58 % Not Estab. code = ) % Lymphs (test code 29 % Not Estab. = ) % Monos (test code 9 % Not Estab. = ) % Eos (test code = 2 % Not Estab. ) % Baso (test code = 1 % Not Estab. ) # Neutros (test 7.1 See_Comment H [Automated code = ) message] The system which generated this result transmitted reference range : 1.4 - 7.0 x10E3/uL. The reference range was not used to interpret this result as normal/abnormal . # Lymphs (test code 3.4 See_Comment H [Automa ender = ) message] The system which generated this result transmitted reference range : 0.7 - 3.1 x10E3/uL. The reference range was not used to interpret this result as normal/abnormal . # Monos (test code 1.1 See_Comment H [Automat ed = ) message] The system which generated this result transmitted reference range : 0.1 - 0.9 x10E3/uL. The reference range was not used to interpret this result as normal/abnormal . # Eos (test code = 0.2 See_Comment [Automat ed ) message] The system which generated this result transmitted reference range : 0.0 - 0.4 x10E3/uL. The reference range was not used to interpret this result as normal/abnormal . Baso (Absolute) 0.1 See_Comment [Automated (test code = message] The ) system which generated this result transmitted reference range : 0.0 - 0.2 x10E3/uL. The reference range was not used to interpret this result as normal/abnormal . % Immature Grans 1 % Not Estab. (test code = 3970207) # Immature Grans 0.1 See_Comment [Automated (test code = message] The ) system which generated this result transmitted reference range : 0.0 - 0.1 x10E3/uL. The reference range was not used to interpret this result as normal/abnormal . LUIS ANGEL (test code = Specimen Comment: A LUIS ANGEL) courtesy copy of this report has been sent to [facility] Comment: Health SysPerformed at: - [facility] [address] [place], [place] [id number] Director: Seng Mayen MD, Phone: [phone] Lab Interpretation Abnormal (test code = 74215-7) [facility] HospitalPro-time/[id number] 10:11:00 Test Item Value Reference Range Interpretation Comments INR (test code = 1.1 0.9-1.2 Reference ) interval is for non-anticoagula t ed patients.Sugges t ed INR therapeutic range for Vitamin Kantagonist therapy: Standard Dose (moderate intensity therapeutic range): 2.0 - 3.0 Higher intensity therapeutic range 2.5 - 3.5 Prothrombin Time 10.8 See_Comment [Automated (test code = message] The ) system which generated this result transmitted reference range : 9.1 - 12.0 sec. The reference range was not used to interpret this result as normal/abnormal . LUIS ANGEL (test code = Specimen Comment: A LUIS ANGEL) courtesy copy of this report has been sent to [facility] Comment: Health SysPerformed at: - [facility] [address] [place], [place] [id number] Director: Seng Mayen MD, Phone: [phone] [facility] HospitalAlpha fetoprotein (AFP), tumor [id number] 10:11:00 Test Item Value Reference Interpretation Comments Range AFP, 1.9 ng/mL 0.0-8.4 T[facility] Diagnosti cs Serum, Electrochemilum inescence Tumor Immunoassay (EC LUCI)Values Marker obtained with d ifferent (test code assay methods o r kits = ) cannot beused interchangeably . Results cannot be inter preted as absoluteevidenc e of the presence or abs ence of malignant disea se.This test is not interpre table in female s. LUIS ANGEL (test Specimen Comment: A code = courtesy copy of LUIS ANGEL) this report has been sent to [facility] Comment: Health SysPerformed at: - [facility] [address] [place], [place] [id number] Director: Seng Mayen MD, Phone: [phone] [facility] Metabolic [id number] 10:11:00 Test Item Value Reference Range Interpretation Comments Glucose, Serum 85 mg/dL 65-99 (test code = 1583953) BUN (test code = 15 mg/dL 8-27 20100616) Creatinine, Serum 1.14 mg/dL 0.76-1.27 (test code = 9494332) EGFR (test code = 70 mL/min/1.73 >59 4670007769) BUN/Creatinine 13 10-24 Ratio (test code = 5543233) Sodium, Serum 137 mmol/L 134-144 (test code = 5505584) Potassium, Serum 4.8 mmol/L 3.5-5.2 (test code = 2092378) Chloride, Serum 100 mmol/L 96-106 (test code = 20100703) Carbon Dioxide, 23 mmol/L 20-29 Total (test code = ) Calcium, Serum 9.8 mg/dL 8.6-10.2 (test code = 8228648) LUIS ANGEL (test code = Specimen Comment: A LUIS ANGEL) courtesy copy of this report has been sent to [facility] Comment: Health SysPerformed at: [facility] [address] [place], [place] [id number] Director: Seng Mayen MD, Phone: [phone] [facility] HospitalHepatic function [id number] 10:11:00 Test Item Value Reference Interpretation Comments Range Protein, Total, 7.9 g/dL 6.0-8.5 Serum (test code = 20100620) Albumin, Serum 4.0 g/dL 3.8-4.8 (test code = 0457128) Bilirubin, Total 0.4 mg/dL 0.0-1.2 (test code = 8443578) Bilirubin, Direct 0.16 mg/dL 0.00-0.40 (test code = 5154352) Alkaline 278 See_Comment H [Automated Phosphatase, S message] The (test code = system which 6767-07) generated this result transmitted reference range : 44 - 121 IU/L. The reference range was not used to interpret this result as normal/abnormal . AST (SGOT) (test 35 See_Comment [Automated code = 20100626) message] The system which generated this result transmitted reference range : 0 - 40 IU/L. Th e reference range was not used to interpret this result as normal/abnormal . ALT (SGPT) (test 41 See_Comment [Automated code = ) message] The system which generated this result transmitted reference range : 0 - 44 IU/L. Th e reference range was not used to interpret this result as normal/abnormal . LUIS ANGEL (test code = Specimen Comment: A LUIS ANGEL) courtesy copy of this report has been sent to [facility] Comment: Health SysPerformed at: [address] [id number] Director: Seng Mayen MD, Phone: [phone] Lab Interpretation Abnormal (test code = 40154-1) [facility] with platelet count + automated [id number] 10:11:00 Test Item Value Reference Interpretation Comments Range WBC (test code = 11.9 See_Comment H [Automated ) message] The system which generated this result transmitted reference range : 3.4 - 10.8 x10E3/uL. The reference range was not used to interpret this result as normal/abnormal . RBC (test code = 4.88 See_Comment [Automated 789-8) message] The system which generated this result transmitted reference range : 4.14 - 5.80 x10E6/uL. The reference range was not used to interpret this result as normal/abnormal . Hemoglobin (test 13.7 g/dL 13.0-17.7 code = ) Hematocrit (test 41.6 % 37.5-51.0 code = ) MCV (test code = 85 fL 79-97 ) MCH (test code = 28.1 pg 26.6-33.0 ) MCHC (test code = 32.9 g/dL 31.5-35.7 ) RDW (test code = 13.8 % 11.6-15.4 ) Platelets (test 467 See_Comment H [Automated code = ) message] The system which generated this result transmitted reference range : 150 - 450 x10E3/uL. The reference range was not used to interpret this result as normal/abnormal . % Neutros (test 58 % Not Estab. code = ) % Lymphs (test code 29 % Not Estab. = ) % Monos (test code 9 % Not Estab. = ) % Eos (test code = 2 % Not Estab. ) % Baso (test code = 1 % Not Estab. ) # Neutros (test 7.1 See_Comment H [Automated code = ) message] The system which generated this result transmitted reference range : 1.4 - 7.0 x10E3/uL. The reference range was not used to interpret this result as normal/abnormal . # Lymphs (test code 3.4 See_Comment H [Automa ender = ) message] The system which generated this result transmitted reference range : 0.7 - 3.1 x10E3/uL. The reference range was not used to interpret this result as normal/abnormal . # Monos (test code 1.1 See_Comment H [Automat ed = ) message] The system which generated this result transmitted reference range : 0.1 - 0.9 x10E3/uL. The reference range was not used to interpret this result as normal/abnormal . # Eos (test code = 0.2 See_Comment [Automat ed ) message] The system which generated this result transmitted reference range : 0.0 - 0.4 x10E3/uL. The reference range was not used to interpret this result as normal/abnormal . Baso (Absolute) 0.1 See_Comment [Automated (test code = message] The ) system which generated this result transmitted reference range : 0.0 - 0.2 x10E3/uL. The reference range was not used to interpret this result as normal/abnormal . % Immature Grans 1 % Not Estab. (test code = ) # Immature Grans 0.1 See_Comment [Automated (test code = message] The ) system which generated this result transmitted reference range : 0.0 - 0.1 x10E3/uL. The reference range was not used to interpret this result as normal/abnormal . LUIS ANGEL (test code = Specimen Comment: Lindsey PLASENCIA) courtesy copy of this report has been sent to [facility] Comment: Health SysPerformed at: 01 - [facility] [address] [place], [place] [id number] Director: Seng Mayen MD, Phone: [phone] Lab Interpretation Abnormal (test code = 59893-0) [facility] Hospital[facility]/[id number] 10:11:00 Test Item Value Reference Range Interpretation Comments INR (test code = 1.1 0.9-1.2 Reference ) interval is for non-anticoagula t ed patients.Sugges t ed INR therapeutic range for Vitamin Kantagonist therapy: Standard Dose (moderate intensity therapeutic range): 2.0 - 3.0 Higher intensity therapeutic range 2.5 - 3.5 Prothrombin Time 10.8 See_Comment [Automated (test code = message] The ) system which generated this result transmitted reference range : 9.1 - 12.0 sec. The reference range was not used to interpret this result as normal/abnormal . LUIS ANGEL (test code = Specimen Comment: Lindsey PLASENCIA) courtesy copy of this report has been sent to [facility] Comment: Health SysPerformed at: 01 - [facility] [address] [place], [place] [id number] Director: Seng Mayen MD, Phone: [phone] [facility] HospitalAlpha fetoprotein (AFP), tumor [id number] 10:11:00 Test Item Value Reference Interpretation Comments Range AFP, 1.9 ng/mL 0.0-8.4 Tika Diagnosti cs Serum, Electrochemilum inescence Tumor Immunoassay (EC LUCI)Values Marker obtained with d ifferent (test code assay methods o r kits = ) cannot beused interchangeably . Results cannot be inter preted as absoluteevidenc e of the presence or abs ence of malignant disea se.This test is not interpre table in female s. LUIS ANGEL (test Specimen Comment: A code = courtesy copy of LUIS ANGEL) this report has been sent to [facility] Comment: Health SysPerformed at: 01 - [facility] [address] [place], [place] [id number] Director: Seng Mayen MD, Phone: [phone] [facility] [id number] 00:00:00 Test Item Value Reference Range Interpretation Comments A1C (test code = 4548-4) 8.4 HEMOGLOBIN [id number] 00:00:00 Test Item Value Reference Range Interpretation Comments A1C (test code = 4548-4) 8.3 FUNGAL [id number] 15:00:00 Test Item Value Reference Interpretation Comments Range FUNGAL PANEL Refer to AUTOVERIFICATION individual COMPONENT (test code = Aspergillus, 2549) Blastomyces, Coccidioides & Histoplasma Ab results. ASPERGILLUS FLAVUS AB Testin g ([facility]) (test code = perform ed at 0862303) [facility] ASPERGILLUS NIGER AB Testing ([facility]) (test code = perform ed at 8889724) [facility] ASPERGILLUS FUMIGATUS Testin g AB ([facility]) (test code perfor med at = 0114655) [facility] C-REACTIVE [id number] 16:57:00 Test Item Value Reference Range Interpretation Comments C-REACTIVE PROTEIN (BEAKER) (test 4.42 mg/dL 0.00-0.50 H code = 676) International Project Engineer ID - ADMINCBC W/PLT COUNT & AUTO [id number] 16:40:00 Test Item Value Reference Range Interpretation Comments WHITE BLOOD CELL COUNT (BEAKER) 14.1 K/ L 3.5-10.5 H (test code = 775) RED BLOOD CELL COUNT (BEAKER) 4.51 M/ L 4.63-6.08 L (test code = 761) HEMOGLOBIN (BEAKER) (test code = 13.3 GM/DL 13.7-17.5 L 410) HEMATOCRIT (BEAKER) (test code = 39.0 % 40.1-51.0 L 411) MEAN CORPUSCULAR VOLUME (BEAKER) 86.5 fL 79.0-92.2 (test code = 753) MEAN CORPUSCULAR HEMOGLOBIN 29.5 pg 25.7-32.2 (BEAKER) (test code = 751) MEAN CORPUSCULAR HEMOGLOBIN CONC 34.1 GM/DL 32.3-36.5 (BEAKER) (test code = 752) RED CELL DISTRIBUTION WIDTH 21.0 % 11.6-14.4 H (BEAKER) (test code = 412) PLATELET COUNT (BEAKER) (test 534 K/CU MM 150-450 H code = 756) MEAN PLATELET VOLUME (BEAKER) 13.4 fL 9.4-12.4 H (test code = 754) NUCLEATED RED BLOOD CELLS 0 /100 WBC 0-0 (BEAKER) (test code = 413) NEUTROPHILS RELATIVE PERCENT 81 % (BEAKER) (test code = 429) LYMPHOCYTES RELATIVE PERCENT 9 % (BEAKER) (test code = 430) MONOCYTES RELATIVE PERCENT 9 % (BEAKER) (test code = 431) EOSINOPHILS RELATIVE PERCENT 0 % (BEAKER) (test code = 432) BASOPHILS RELATIVE PERCENT 0 % (BEAKER) (test code = 437) NEUTROPHILS ABSOLUTE COUNT 11.34 K/ L 1.78-5.38 H (BEAKER) (test code = 670) LYMPHOCYTES ABSOLUTE COUNT 1.22 K/ L 1.32-3.57 L (BEAKER) (test code = 414) MONOCYTES ABSOLUTE COUNT (BEAKER) 1.29 K/ L 0.30-0.82 H (test code = 415) EOSINOPHILS ABSOLUTE COUNT 0.01 K/ L 0.04-0.54 L (BEAKER) (test code = 416) BASOPHILS ABSOLUTE COUNT (BEAKER) 0.03 K/ L 0.01-0.08 (test code = 417) IMMATURE GRANULOCYTES-RELATIVE 1 % 0-1 PERCENT (BEAKER) (test code = 2801) CT, CHEST, WITHOUT [id number] 14:16:00Referring: HAYDEN YATES [[id number]]Unlisted Reason for Exam - Click Yes and Enter Reason Below->No [facility] : 1955 Sex: MFINAL REPORT CT of the Chest dated 03/17/2020 CLINICAL INFORMATION: Sarcoidosis Comment: Axial images of the chest were obtained from thoracic inlet to the upper abdomen without intravenous contrast. This exam was performed according to our departmental dose-optimization program, which includes automated exposure control, adjustment of the mA and/or kV according to patient size and/or use of interactive reconstruction technique. Heart is normal in size. Great vessels are unremarkable. Nonspecific lymph nodes are seen in the paratracheal, subcarinal, and prevascular mediastinum. The largest lymph node measures 1.1 cm. Trachea and mainstem bronchi are patent. A 5 mm subpleural nodule is seen in the right lower lobe. The rest of the lungs are are clear. No mass lesion or airspace disease is noted. No interstitial disease or bronchiectasis is present. No pleural effusion or pleural based mass is seen. 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 Gallbladder is surgically absent. Impression: 1. Subpleural right lower lobe nodule. Recommend follow-up with repeat CT examination in 12 months.2. Status post distal pancreatectomy, splenectomy, and cholecystectomy. Signed: [facility] Verified Date/Time: 03/17/2020 14:16:52 Reading Location: [facility] C013Y CT Body Reading Room COMPREHENSIVE METABOLIC [id number] 13:47:00 Test Item Value Reference Range Interpretation Comments TOTAL PROTEIN 7.1 gm/dL 6.0-8.3 (BEAKER) (test code = 770) ALBUMIN (BEAKER) 2.6 g/dL 3.5-5.0 L (test code = 1145) ALKALINE PHOSPHATASE 792 U/L 40-150 H (BEAKER) (test code = 346) BILIRUBIN TOTAL 3.3 mg/dL 0.2-1.2 H (BEAKER) (test code = 377) SODIUM (BEAKER) (test 133 meq/L 136-145 L code = 381) POTASSIUM (BEAKER) 4.7 meq/L 3.5-5.1 (test code = 379) CHLORIDE (BEAKER) 99 meq/L 98-107 (test code = 382) CO2 (BEAKER) (test 27 meq/L 22-29 code = 355) BLOOD UREA NITROGEN 18 mg/dL 7-21 (BEAKER) (test code = 354) CREATININE (BEAKER) 0.96 mg/dL 0.57-1.25 (test code = 358) GLUCOSE RANDOM 376 mg/dL 70-105 H (BEAKER) (test code = 652) CALCIUM (BEAKER) 9.5 mg/dL 8.4-10.2 (test code = 697) AST (SGOT) (BEAKER) 55 U/L 5-34 H (test code = 353) ALT (SGPT) (BEAKER) 68 U/L 6-55 H (test code = 347) EGFR (BEAKER) (test 79 mL/min/1.73 ESTIMA ENDER GFR IS code = 1092) sq m NOT ACCURATE CREATININE CLEARANCE IN PREDICTING GLOMERULAR FILTRATION RATE . ESTIMATED GFR I S NOT APPLICABLE FOR DIALYSIS PATIEN TS. International Project Engineer ID - ADMINSpecimen slightly ictericBILIRUBIN, [id number] 13:47:00 Test Item Value Reference Range Interpretation Comments BILIRUBIN DIRECT (BEAKER) (test 2.6 mg/dL 0.1-0.5 H code = 706) International Project Engineer ID - ADMINTISSUE [id number] 14:17:00Surgical Pathology Report Case: [id number] Authorizing Provider: Judie Oliva MD Collected: 03/05/2020 11:42 AM Ordering Location: [facility] Radiology Main Received: 03/05/2020 01:49 PM Pathologist: Celena Faustin MD Specimen: Biopsy, Liver LIVER, ULTRASOUND- GUIDED NEEDLE BIOPSIES- GRANULOMATOUS HEPATITIS- see comment Signing Pathologist Direct Phone Line: [phone] signed by Celena Faustin MD on 03/06/2020 at 2:17 PMThe differential diagnosis of granulomas in the liver includes sarcoidosis, infections, systemic diseases, drug induced injury or primary biliary cholangitis. This isunlikely to be primary biliary cholangitis because the granulomas are not centered on the bile ductsand there is no ductopenia. Of note, serology for AMA is negative. Other causes of granulomatous hepatitis may be excluded clinically. AFB and GMS stains are negative, however culture or molecular testing for bacteria, acid fast organisms and fungi are more sensitive to rule in/out an infectious process. With regards to fibrosis, the granulomas are forming expansile lesions and there is fibrosis around the granulomas, The portal tracts show portal/periportal fibrosis and occasional foci of bridging fibrosis. This fibrosis appears to be secondary to granulomatous pathology and may not be reflective of the fibrosis in the background liver. A biopsy of the uninvolved liver may be considered for accura te assessment of fibrosis, if clinically indicated. 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 Received in formalin labeled with the patient's name, medical record number and "liver biopsy" and consists of 2 nova-red, variegated soft tissue cores each measuring 1.7 cm in length which are submitted in toto in A1.LORRIE Machuca PA (ASCP)cmSection shows two cores of liver parenchyma with greater than 10 portal tracts and is adequate for evaluation. There are multiple expansile areas formed by variably sized epithelioid granulomas with focal necrosis present in the lobularand in the portal tracts. The granulomas are not centered on the bile ducts. The bile ducts are preserved and no ductopenia is seen. 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 The portal tracts show mild lymphocyte predominant inflammation along with few neutrophils and eosinophils. Ductular reaction is present. There are few scattered hepatocytes with ballooning/feathery degeneration. No significant steatosis is present. Focal cholestasis is seen. Glycogenated nuclei are present.Trichrome stain shows fibrosis in areas of granulomas and in addition there is portal and periportal fibrosis with occasional bridging. Iron stain is negative. No hyaline globules are seen on PAS with diastase stain. Reticulin stain shows r egenerative changes. The interpretation of this case included the use of immunohistochemistry or special stains.Control Slides Examined: In-house known positive controls were evaluated along with the test tissue. These control slides run alongside of the patients sample show appropriate staining. Internal positive and negative controls when available are evaluated Immunohistochemistry technical testing was performed at [facility], Pathology Laboratory where it was developed andits performance characteristics were determined. It has not been cleared or approved by the U.S. Food and Drug Administration. The FDA has determined that such clearance or approval is not necessary. The test is used for clinical purposes. It should not be regarded as investigational or for research. This laboratory is certified under the Clinical Laboratory Improvement Amendments of 1988 (CLIA-88) as qualified to perform high complexity clinical laboratory testing.U/S, BIOPSY, [id number] 14:14:00Referring: HAYDEN YATES [[id number]]Reason for Exam:->elevated ALP, possible PBC cirrhosis, us guided biopsy of the liver , at lease 2 cores please [facility] : 1955 Sex: MFINAL REPORT Procedure: Ultrasound-Guided Core Random Hepatic Biopsy: Pre/post-procedure diagnosis: Elevated ALP [employer] Counselor: Parag Rockwell MD Assistants: Lorena Cortez PA-C Sedation: Moderate sedation was administered. 1.5 mg of Versed and 75 mcg of fentanyl IV was used for moderate sedation monitored under my direction. Total intra-service time of sedation was 20 minutes. The patient's vital signs were monitored throughout the procedure and recorded in the patient's medical record by the nurse. Local Anesthesia: 8 cc 1% Xylocaine Approach: Right upper quadrant, percutaneous Specimen: Total of two 16 G core biopsy samples; samples were delivered to pathology in formalin solution. Estimated blood loss: Less than 5 cc. Technique/findings: Informed written consent was obtained. Discussion of risks, benefits, and alternatives were made with the patient. The patient expressed understanding and agreed to proceed. A universal timeout was performed prior to starting the procedure. I nitial ultrasound images were obtained for biopsy site selection. The right upper quadrant was prepped and draped in sterile fashion. 2% lidocaine was used for local anesthesia. Using ultrasound guidance, following acquisition of permanent images, a 16 G Bio-Pince core biopsy needle was inserted into the right lobe under ultrasound guidance. A total of 2 passes were made. Post procedure sonogram reveals no hematoma. No immediate complications were noted. Impression: Successful, uncomplicated ultrasound-guided core random hepatic biopsy. Signed: Parag Rockwell MDReport Verified Date/Time: 03/05/2020 14:14:36 Reading Location: [address] Ultrasound Reading Room CBC W/PLT COUNT & AUTO [id number] 14:13:00 Test Item Value Reference Range Interpretation Comments WHITE BLOOD CELL COUNT (BEAKER) 12.8 K/ L 3.5-10.5 H (test code = 775) RED BLOOD CELL COUNT (BEAKER) 4.81 M/ L 4.63-6.08 (test code = 761) HEMOGLOBIN (BEAKER) (test code = 13.8 GM/DL 13.7-17.5 410) HEMATOCRIT (BEAKER) (test code = 39.7 % 40.1-51.0 L 411) MEAN CORPUSCULAR VOLUME (BEAKER) 82.5 fL 79.0-92.2 (test code = 753) MEAN CORPUSCULAR HEMOGLOBIN 28.7 pg 25.7-32.2 (BEAKER) (test code = 751) MEAN CORPUSCULAR HEMOGLOBIN CONC 34.8 GM/DL 32.3-36.5 (BEAKER) (test code = 752) RED CELL DISTRIBUTION WIDTH 21.1 % 11.6-14.4 H (BEAKER) (test code = 412) PLATELET COUNT (BEAKER) (test 535 K/CU MM 150-450 H code = 756) MEAN PLATELET VOLUME (BEAKER) 12.1 fL 9.4-12.4 (test code = 754) NUCLEATED RED BLOOD CELLS 0 /100 WBC 0-0 (BEAKER) (test code = 413) (CELLAVISION MANUAL DIFF)2020-03-05 14:13:00 Test Item Value Reference Range Interpretation Comments NEUTROPHILS - REL 63 % (CELLAVISION)(BEAKER) (test code = 2816) LYMPHOCYTES - REL 12 % (CELLAVISION)(BEAKER) (test code = 2817) MONOCYTES - REL 16 % (CELLAVISION)(BEAKER) (test code = 2818) EOSINOPHILS - REL 5 % (CELLAVISION)(BEAKER) (test code = 2819) METAMYELOCYTES - REL 1 % 0-0 H (CELLAVISION)(BEAKER) (test code = 2821) MYELOCYTES - REL 1 % 0-0 H (CELLAVISION)(BEAKER) (test code = 2822) ATYPICAL LYMPHOCYTES - REL 3 % 0-0 H (CELLAVISION)(BEAKER) (test code = 2829) NEUTROPHILS - ABS 8.06 K/ul 1.78-5.38 H (CELLAVISION)(BEAKER) (test code = 2830) LYMPHOCYTES - ABS 1.54 K/ul 1.32-3.57 (CELLAVISION)(BEAKER) (test code = 2831) MONOCYTES - ABS 2.05 K/uL 0.30-0.82 H (CELLAVISION)(BEAKER) (test code = 2832) EOSINOPHILS - ABS 0.64 K/uL 0.04-0.54 H (CELLAVISION)(BEAKER) (test code = 2834) METAMYELOCYTES - ABS 0.13 K/uL 0.00-0.00 H (CELLAVISION)(BEAKER) (test code = 2836) MYELOCYTES-ABS 0.13 K/uL 0.00-0.00 H (CELLAVISION)(BEAKER) (test code = 2837) ATYPICAL LYMPHOCYTES - ABS 0.38 K/uL 0.00-0.00 H (CELLAVISION)(BEAKER) (test code = 2858) TOTAL COUNTED (BEAKER) (test code 100 = 1351) SMUDGE CELLS (BEAKER) (test code Present = 1371) GIANT PLATELETS (BEAKER) (test Present code = 313) ANISOCYTOSIS (BEAKER) (test code 2+ moderate = 961) TARGET CELLS (BEAKER) (test code 2+ moderate = 480) PLATELET CONCENTRATION Increased (CELLAVISION)(BEAKER) (test code = 3438) International Project Engineer ID - [id number] ID - Luiza Carlos comments: Slide comments:APTT 2020-03-05 10:01:00 Test Item Value Reference Range Interpretation Comments PARTIAL THROMBOPLASTIN TIME 32.8 seconds 22.5-36.0 (BEAKER) (test code = 760) PROTHROMBIN [id number] 10:00:00 Test Item Value Reference Range Interpretation Comments PROTIME (BEAKER) (test code = 14.8 seconds 11.9-14.2 H 759) INR (BEAKER) (test code = 370) 1.19 <=5.90 Effective 07/11/2018: PT Reference Range ChangeNew: 11.9-14.2 Previous: 11.7- 14.7RECOMMENDED COUMADIN/WARFARIN INR THERAPY RANGESSTANDARD DOSE: 2.0-3.0 Includes: PROPHYLAXIS for venous thrombosis, systemic embolization; TREATMENT for venous thrombosis and/or pulmonary embolus.HIGH RISK: Target INR is 2.5-3.5 for patients wiht mechanical heart valves.BLOOD [id number] 22:01:00 Test Item Value Reference Range Interpretation Comments CULTURE (BEAKER) (test No growth in 5 days code = 1095) BLOOD [id number] 22:01:00 Test Item Value Reference Range Interpretation Comments CULTURE (BEAKER) (test No growth in 5 days code = 1095) [id number] 15:14:00 Test Item Value Reference Range Interpretation Comments PARTIAL THROMBOPLASTIN TIME 34.4 seconds 22.5-36.0 (BEAKER) (test code = 760) POCT-GLUCOSE [id number] 12:17:00 Test Item Value Reference Range Interpretation Comments POC-GLUCOSE METER 170 mg/dL 70-110 H : TESTED A T [facility] 6720 (BEAKER) (test code = [facility], 1538) [address]: International Project Engineer/Techni shannon ID = [id number] for SA NTOS, RAJEEV POCT-GLUCOSE [id number] 08:49:00 Test Item Value Reference Range Interpretation Comments POC-GLUCOSE METER 142 mg/dL 70-110 H : TESTED A T [facility] 6720 (BEAKER) (test code = [facility], 1538) 60016: International Project Engineer/Techni shannon ID = [id number] for SA NTOS, RAJEEV COMPREHENSIVE METABOLIC [id number] 06:42:00 Test Item Value Reference Range Interpretation Comments TOTAL PROTEIN 6.9 gm/dL 6.0-8.3 (BEAKER) (test code = 770) ALBUMIN (BEAKER) 2.6 g/dL 3.5-5.0 L (test code = 1145) ALKALINE PHOSPHATASE 977 U/L 40-150 H (BEAKER) (test code = 346) BILIRUBIN TOTAL 4.1 mg/dL 0.2-1.2 H (BEAKER) (test code = 377) SODIUM (BEAKER) (test 133 meq/L 136-145 L code = 381) POTASSIUM (BEAKER) 3.8 meq/L 3.5-5.1 (test code = 379) CHLORIDE (BEAKER) 97 meq/L 98-107 L (test code = 382) CO2 (BEAKER) (test 25 meq/L 22-29 code = 355) BLOOD UREA NITROGEN 12 mg/dL 7-21 (BEAKER) (test code = 354) CREATININE (BEAKER) 0.84 mg/dL 0.57-1.25 (test code = 358) GLUCOSE RANDOM 122 mg/dL 70-105 H (BEAKER) (test code = 652) CALCIUM (BEAKER) 9.3 mg/dL 8.4-10.2 (test code = 697) AST (SGOT) (BEAKER) 66 U/L 5-34 H (test code = 353) ALT (SGPT) (BEAKER) 59 U/L 6-55 H (test code = 347) EGFR (BEAKER) (test 92 mL/min/1.73 ESTIMA ENDER GFR IS code = 1092) sq m NOT ACCURATE CREATININE CLEARANCE IN PREDICTING GLOMERULAR FILTRATION RATE . ESTIMATED GFR I S NOT APPLICABLE FOR DIALYSIS PATIEN TS. International Project Engineer ID - PIAYA LSpecimen slightly ictericPOCT-GLUCOSE [id number] 22:14:00 Test Item Value Reference Range Interpretation Comments POC-GLUCOSE METER 104 mg/dL 70-110 : TESTED Lindsey Thomas [facility] 6720 (BEAKER) (test code = DEB PENA [place], 1538) 869[address]: International Project Engineer/Techni shannon ID = [id number] for CA RBAJAL, REX POCT-GLUCOSE [id number] 18:17:00 Test Item Value Reference Range Interpretation Comments POC-GLUCOSE METER 148 mg/dL 70-110 H : TESTED A T [facility] 6720 (BEAKER) (test code = DEB Le[place], 1538) [address]: International Project Engineer/Techni shannon ID = [id number] for RAJEEV URBAN POCT-GLUCOSE [id number] 13:02:00 Test Item Value Reference Range Interpretation Comments POC-GLUCOSE METER 109 mg/dL 70-110 : TESTED A T [facility] 6720 (BEAKER) (test code = DEB Lei [facility], 1538) 75011: International Project Engineer/Techni shannon ID = [id number] for RAJEEV URBAN COMPREHENSIVE METABOLIC [id number] 11:58:00 Test Item Value Reference Range Interpretation Comments TOTAL PROTEIN 6.7 gm/dL 6.0-8.3 (BEAKER) (test code = 770) ALBUMIN (BEAKER) 2.6 g/dL 3.5-5.0 L (test code = 1145) ALKALINE PHOSPHATASE 919 U/L 40-150 H (BEAKER) (test code = 346) BILIRUBIN TOTAL 4.4 mg/dL 0.2-1.2 H (BEAKER) (test code = 377) SODIUM (BEAKER) (test 131 meq/L 136-145 L code = 381) POTASSIUM (BEAKER) 4.1 meq/L 3.5-5.1 (test code = 379) CHLORIDE (BEAKER) 97 meq/L 98-107 L (test code = 382) CO2 (BEAKER) (test 24 meq/L 22-29 code = 355) BLOOD UREA NITROGEN 13 mg/dL 7-21 (BEAKER) (test code = 354) CREATININE (BEAKER) 0.86 mg/dL 0.57-1.25 (test code = 358) GLUCOSE RANDOM 155 mg/dL 70-105 H (BEAKER) (test code = 652) CALCIUM (BEAKER) 9.5 mg/dL 8.4-10.2 (test code = 697) AST (SGOT) (BEAKER) 56 U/L 5-34 H (test code = 353) ALT (SGPT) (BEAKER) 54 U/L 6-55 (test code = 347) EGFR (BEAKER) (test 89 mL/min/1.73 ESTIMA ENDER GFR IS code = 1092) sq m NOT ACCURATE CREATININE CLEARANCE IN PREDICTING GLOMERULAR FILTRATION RATE . ESTIMATED GFR I S NOT APPLICABLE FOR DIALYSIS PATIEN TS. International Project Engineer ID - ROC MSpecimen slightly ictericCBC (HEMOGRAM ONLY)2020-02-29 11:53:00 Test Item Value Reference Range Interpretation Comments WHITE BLOOD CELL COUNT (BEAKER) 10.6 K/ L 3.5-10.5 H (test code = 775) RED BLOOD CELL COUNT (BEAKER) 4.47 M/ L 4.63-6.08 L (test code = 761) HEMOGLOBIN (BEAKER) (test code = 13.0 GM/DL 13.7-17.5 L 410) HEMATOCRIT (BEAKER) (test code = 37.1 % 40.1-51.0 L 411) MEAN CORPUSCULAR VOLUME (BEAKER) 83.0 fL 79.0-92.2 (test code = 753) MEAN CORPUSCULAR HEMOGLOBIN 29.1 pg 25.7-32.2 (BEAKER) (test code = 751) MEAN CORPUSCULAR HEMOGLOBIN CONC 35.0 GM/DL 32.3-36.5 (BEAKER) (test code = 752) RED CELL DISTRIBUTION WIDTH 21.0 % 11.6-14.4 H (BEAKER) (test code = 412) PLATELET COUNT (BEAKER) (test 507 K/CU MM 150-450 H code = 756) MEAN PLATELET VOLUME (BEAKER) 12.3 fL 9.4-12.4 (test code = 754) NUCLEATED RED BLOOD CELLS 0 /100 WBC 0-0 (BEAKER) (test code = 413) POCT-GLUCOSE [id number] 08:35:00 Test Item Value Reference Range Interpretation Comments POC-GLUCOSE METER 124 mg/dL 70-110 H : TESTED A T [facility] 6720 (BEAKER) (test code = DEB PENA [place], 1538) 88922: International Project Engineer/Techni shannon ID = [id number] for SA NTOS, RAJEEV URINALYSIS WITH MICROSCOPIC IF [id number] 01:09:00 Test Item Value Reference Range Interpretation Comments COLOR (BEAKER) (test code = 470) Yellow CLARITY (BEAKER) (test code = 469) Clear SPECIFIC GRAVITY UA (BEAKER) (test 1.009 1.001-1.035 code = 468) PH UA (BEAKER) (test code = 467) 6.5 5.0-8.0 PROTEIN UA (BEAKER) (test code = Negative Negative 464) GLUCOSE UA (BEAKER) (test code = Negative Negative 365) KETONES UA (BEAKER) (test code = Negative Negative 371) BILIRUBIN UA (BEAKER) (test code = Negative Negative 462) BLOOD UA (BEAKER) (test code = 461) Negative Negative NITRITE UA (BEAKER) (test code = Negative Negative 465) LEUKOCYTE ESTERASE UA (BEAKER) Negative Negative (test code = 466) UROBILINOGEN UA (BEAKER) (test code 8.0 mg/dL 0.2-1.0 H = 463) SOURCE(BEAKER) (test code = 2795) International Project Engineer ID - [auto]International Project Engineer ID - techPOCT-GLUCOSE [id number] 21:39:00 Test Item Value Reference Range Interpretation Comments POC-GLUCOSE METER 208 mg/dL 70-110 H : TESTED A T [facility] 6720 [facility] (test code = DEB Lei [facility], 1538) 94807: International Project Engineer/Techni shannon ID = [id number] for CA RBAJAL, REX POCT-GLUCOSE [id number] 18:29:00 Test Item Value Reference Range Interpretation Comments POC-GLUCOSE METER 237 mg/dL 70-110 H : Notified RN/MD: TESTED (AKER) (test code AT [facility] [address] = 1538) [facility], 770 30: International Project Engineer/Techni shannon ID = [id number] for VICENTA GILMAN SARS-COV2/INFLUENZA/RSV [id number] 15:06:00 Test Item Value Reference Range Interpretation Comments SARS-COV2/RT-PCR Negative Negative (test code = 4800737) INFLUENZA A RT-PCR Negative Negative (test code = 5482138) INFLUENZA B RT-PCR Negative Negative (test code = 7710185) RSV RT-PCR (test Negative Negative Performance of the Xpert code = 3213218) Xpress SARS- CoV-2/Flu/RSV test has only b een established in nasopharyngeal swab specimens. Use of the Xpert Xpress SARS-CoV-2/Flu/ RSV test with other spec imen types has not been as sessed and performance characteristics are unknown. As wit h any molecular test, mutations within the targ eted genetic regions identified by t he Xpert Xpress SARS-CoV -2/Flu/RSV test could affe ct primer and/or probe bi nding resulting in fa ilure to detect the pres ence of virus or the vi bisi being detected less predictably.Neg ative results do not preclude SARS-CoV-2, Inf luenza A/B, or RSV inf ection and should not be u sed as the sole basis for treatment or other patien t management deci sions. Results from e Xpert Xpress SARS-CoV -2/Flu/RSV test should be correlated with the clinic al history, epidem iological data, and other data available to e clinician evalu ating the patient. Invali d test results may occ ur from improper specim en collection; tatiana lure to follow the wil mmended sample collecti on, handling, and s torage procedures; jyoa hnical error. False ne gative results may occ ur if virus is presen t at levels below e analytical limi t of detection (LOD: 131 copies/mL). Vir al nucleic acid may persis t in vivo, independent of virus viability. Dete ction of analyte target( s) does not imply that the corresponding v irus(es) are infectious or are the causative agent s for clinical sympto ms. Recent patient exposur e to FluMist or othe r live attenuated infl uenza vaccines may ca use inaccurate posi tive results.This te st has been authorized by FDA under an EUA fo r use by authorized labo ratories. This test is on ly authorized for the duration of the declaration zeina t circumstances e xist justifying the authorization o f emergency use o f in vitro diagnostic test s for detection and/o r diagnosis of CO VID-19 under Section 5 64(b)(1) of the Federal Food, Drug and Cosmetic Ac t, 21 U.S.C. 360bbb-3 (b)(1), unless the auth orization is terminated o r revoked sooner.Fact She et for Healthcare Prov iders: [email or web address]://[email or web address] heid.com/D ocuments/Xpert% 20Xpress%2 3HUBT-UiG-8-Flu -RSV/302-4 508%20Rev.%20B% 20HCP%20Fa ct%20Sheet.pdfF act Sheet for Healthcare Patients: [email or web address] [email or web address]/Xpert% 20Xpress%2 4BAYY-CrZ-0-Flu -RSV/302-4 507%20Rev.%20B% 20Patient% 20Fact%20Sheet. pdf [id number] 14:34:00 Test Item Value Reference Range Interpretation Comments MAGNESIUM (BEAKER) 1.7 mg/dL 1.6-2.6 Specimen slightly (test code = 627) hemolyzed International Project Engineer ID - [id number] 14:34:00 Test Item Value Reference Range Interpretation Comments PHOSPHORUS (BEAKER) 3.5 mg/dL 2.3-4.7 Specimen slightly (test code = 604) hemolyzed International Project Engineer ID - ADMINCOMPREHENSIVE METABOLIC [id number] 14:34:00 Test Item Value Reference Range Interpretation Comments TOTAL PROTEIN 7.1 gm/dL 6.0-8.3 Specimen sligh tly (BEAKER) (test code = hemoly zed 770) ALBUMIN (BEAKER) 2.6 g/dL 3.5-5.0 L Specimen sl ightly (test code = 1145) hemolyzed ALKALINE PHOSPHATASE 979 U/L 40-150 H (BEAKER) (test code = 346) BILIRUBIN TOTAL 4.5 mg/dL 0.2-1.2 H Specimen sli ghtly (BEAKER) (test code = hemoly zed 377) SODIUM (BEAKER) (test 130 meq/L 136-145 L code = 381) POTASSIUM (BEAKER) 4.6 meq/L 3.5-5.1 Specimen slightly (test code = 379) hemolyzed CHLORIDE (BEAKER) 96 meq/L 98-107 L (test code = 382) CO2 (BEAKER) (test 21 meq/L 22-29 L code = 355) BLOOD UREA NITROGEN 15 mg/dL 7-21 (BEAKER) (test code = 354) CREATININE (BEAKER) 1.06 mg/dL 0.57-1.25 Specimen slightly (test code = 358) hemolyzed GLUCOSE RANDOM 259 mg/dL 70-105 H (BEAKER) (test code = 652) CALCIUM (BEAKER) 9.9 mg/dL 8.4-10.2 (test code = 697) AST (SGOT) (BEAKER) 62 U/L 5-34 H Specimen slightly (test code = 353) hemolyzed ALT (SGPT) (BEAKER) 61 U/L 6-55 H Specimen slightly (test code = 347) hemolyzed EGFR (BEAKER) (test 70 mL/min/1.73 ESTIMA ENDER GFR IS code = 1092) sq m NOT ACCURATE CREATININE CLEARANCE IN PREDICTING GLOMERULAR FILTRATION RATE . ESTIMATED GFR I S NOT APPLICABLE FOR DIALYSIS PATIEN TS. International Project Engineer ID - ADMINSpecimen slightly ictericTROPONIN [id number] 13:35:00 Test Item Value Reference Range Interpretation Comments TROPONIN I (BEAKER) (test code = 397) < ng/mL 0.00-0.03 Troponin I (TnI) levels must be interpreted in the context of the presenting symptoms and the clinical findings. Elevated TnI levels indicate myocardial damage, but are not specific for ischemic heart disease. Elevated TnI levels are seen in patients with other cardiac conditions (including myocarditis and congestive heart failure), and slight TnI elevations occur in patients with other conditions, including sepsis, renal failure, acidosis, acute neurological disease, and persistent tachyarrhythmia.International Project Engineer ID - ADMINCBC W/PLT COUNT & AUTO [id number] 13:23:00 Test Item Value Reference Range Interpretation Comments WHITE BLOOD CELL COUNT (BEAKER) 11.5 K/ L 3.5-10.5 H (test code = 775) RED BLOOD CELL COUNT (BEAKER) 4.94 M/ L 4.63-6.08 (test code = 761) HEMOGLOBIN (BEAKER) (test code = 14.1 GM/DL 13.7-17.5 410) HEMATOCRIT (BEAKER) (test code = 40.6 % 40.1-51.0 411) MEAN CORPUSCULAR VOLUME (BEAKER) 82.2 fL 79.0-92.2 (test code = 753) MEAN CORPUSCULAR HEMOGLOBIN 28.5 pg 25.7-32.2 (BEAKER) (test code = 751) MEAN CORPUSCULAR HEMOGLOBIN CONC 34.7 GM/DL 32.3-36.5 (BEAKER) (test code = 752) RED CELL DISTRIBUTION WIDTH 21.3 % 11.6-14.4 H (BEAKER) (test code = 412) PLATELET COUNT (BEAKER) (test 563 K/CU MM 150-450 H code = 756) MEAN PLATELET VOLUME (BEAKER) 12.4 fL 9.4-12.4 (test code = 754) NUCLEATED RED BLOOD CELLS 0 /100 WBC 0-0 (BEAKER) (test code = 413) NEUTROPHILS RELATIVE PERCENT 64 % (BEAKER) (test code = 429) LYMPHOCYTES RELATIVE PERCENT 19 % (BEAKER) (test code = 430) MONOCYTES RELATIVE PERCENT 13 % (BEAKER) (test code = 431) EOSINOPHILS RELATIVE PERCENT 4 % (BEAKER) (test code = 432) BASOPHILS RELATIVE PERCENT 1 % (BEAKER) (test code = 437) NEUTROPHILS ABSOLUTE COUNT 7.30 K/ L 1.78-5.38 H (BEAKER) (test code = 670) LYMPHOCYTES ABSOLUTE COUNT 2.13 K/ L 1.32-3.57 (BEAKER) (test code = 414) MONOCYTES ABSOLUTE COUNT (BEAKER) 1.45 K/ L 0.30-0.82 H (test code = 415) EOSINOPHILS ABSOLUTE COUNT 0.47 K/ L 0.04-0.54 (BEAKER) (test code = 416) BASOPHILS ABSOLUTE COUNT (BEAKER) 0.07 K/ L 0.01-0.08 (test code = 417) IMMATURE GRANULOCYTES-RELATIVE 0 % 0-1 PERCENT (BEAKER) (test code = 2801) [id number] 13:15:00 Test Item Value Reference Range Interpretation Comments PROTIME (BEAKER) (test code = 15.0 seconds 11.9-14.2 H 759) INR (BEAKER) (test code = 370) 1.22 <=5.90 PARTIAL THROMBOPLASTIN TIME 34.1 seconds 22.5-36.0 (BEAKER) (test code = 760) Effective 07/11/2018: PT Reference Range ChangeNew: 11.9-14.2 Previous: 11.7- 14.7RECOMMENDED COUMADIN/WARFARIN INR THERAPY RANGESSTANDARD DOSE: 2.0-3.0 Includes: PROPHYLAXIS for venous thrombosis, systemic embolization; TREATMENT for venous thrombosis and/or pulmonary embolus.HIGH RISK: Target INR is 2.5-3.5 for patients wiht mechanical heart valves.U/S, ABDOMINAL, [id number] 12:17:00Referring: HAYDEN YATES [[id number]]Reason for exam:->NAUSEAReason for exam:->cirrhosis [facility] 1955 Sex: MFINAL REPORT TECHNIQUE: Grayscale ultrasound of the right abdomen. INDICATION: 64-year-old man with nausea and cirrhosis. COMPARISON: Abdomen MRI 02/24/2020. FINDINGS: MIDLINE VASCULATURE: Visualized inferior vena cava is patent. Main portal vein is patent and measures 1 cm in diameter. Maximum visualized aortic diameter is 2.2 cm. LIVER: Liver measures 21.3 cm with increased echogenicityand mildly coarsened echotexture, consistent with cirrhosis. No focal lesion. BILIARY:Gallbladder: Prior cholecystectomy.Common bile duct is not clearly visualized. No intrahepatic biliary ductal dilatation. PANCREAS: Pancreas is not clearly visualized due to overlying bowel gas. PERITONEUM: No free fluid. RIGHT KIDNEY: Right kidney is normal in size. No hydronephrosis. No sonographically evident mass. IMPRESSION:Cirrhosis. No focal liver lesion. Prior cholecystectomy. Common bile duct is not clearly visualized, but was normal in caliber on 02/24/2020. Signed: Lucho Durham MDReport Verified Date/Time: 02/28/2020 12:17:30 RAD, CHEST, 1 VIEW, NON [id number] 10:49:00Referring: HAYDEN YATES [[id number]]Reason for exam:->weakShould this be performed at the bedside?->Yes [facility] 1955 Sex: MFINAL REPORT CLINICAL HISTORY: weak TECHNIQUE: 1 view of the chest. COMPARISON: None IMPRESSION: There are no focal infiltrates or effusions. The cardiomediastinal silhouette is magnifiedby technique with sternotomy wires. Signed: [facility] Verified Date/Time: 02/28/2020 10:49:16 Reading Location: [facility] Radiology Reading Room ANTI-NUCLEAR ANTIBODY (KLAUS)2020-02-25 10:17:00 Test Item Value Reference Range Interpretation Comments ANTI-NUCLEAR ANTIBODY (KLAUS) (BEAKER) Negative Negative (test code = 418) Test performed by IFA method.Test performed by IFA method.MR, ABDOMEN, WITH 2020-02-24 17:59:00Referring: HAYDEN YATES [[id number]]elevated Alkaline phosphatase, elevated bilirubin, possible cirrohosis on outside CT scan, please do liver protocol, elastography to assess fat, also MRCP to assess biliary treeUnlisted Reason for Exam - Click Yes and Enter Reason Below->YesUnlisted Reason for Exam->elevated Alkaline phosphatase, elevated bilirubin, possible cirrohosis on outside CT scan, please do liver protocol, elastography to assess fat, also MRCP to assess biliary treeelevated Alkaline phosphatase, elevated bilirubin, possible cirrohosis on outside CT scan, please do liver protocol, e lastography to assess fat, also MRCP to assess biliary tree [facility] : 1955 Sex: MFINAL REPORT TECHNIQUE: MRI of the abdomen and MRCP WITHOUT and WITH intravenous contrast. 3-D volume reconstructions were obtained to evaluate the biliary ductal system. MRI Elastography was also performed. INDICATION: Chronic liver disease, elevated alkaline phosphatase. COMPARISON: None. FINDINGS: LOWER THORAX: Unremarkable. LIVER: Liver demonstrates nodular contour. There is heterogeneous increased T2 signal throughout the bilateral hepatic lobes.. No focal arterial enhancing lesion.. The liver stiffness value estimated from MR elastography images was: 6.7 kPa at 60 Hz. The stiffness value has been found to correspond with a patient with stage 4 hepatic fibrosis as per the resultsfrom a meta analysis published by Bansal et al. Clin Gastroenterol Hepatol. 2015 Apr; 13(3): 440-451.e6. The calculated liver fat fraction is 4.2%.BILIARY: Gallbladder is unremarkable. There is mild segmental biliary ductal dilation in the periphery of the liver most prominent in segment four. Common bile duct is normal in caliber.. Common bile duct measures 0.5 cm in diameter. MRCP images is limited secondary to motion artifactSPLEEN: Status post splenectomy..PANCREAS: Status post distal pancreatectomy.. ADRENALS: No adrenal nodules.KIDNEYS/URETERS: No hydronephrosis or solid mass lesions. Subcentimeter cysts in the right kidney PERITONEUM/RETROPERITONEUM: No free fluid.LYMPH NODES: No lymphadenopathy.VESSELS: Portal vein, splenic vein and superior mesenteric vein are patent. Main portal vein measures 1.6 cm in diameter. There is conventional hepatic arterial anatomy. Mild atherosclerotic changes are noted in the abdominal aorta. No evidence of aneurysmal dilation.. GI TRACT: No distention or wall thickening. BONES AND SOFT TISSUES: Unremarkable. IMPRESSION:Cirrhosis with MRI elastography findings suggesting stage 4 hepatic fibrosis. Markedly heterogeneous T2 signal throughout the liver as well as heterogeneous enhancement. While this may be related to cirrhosis, infiltrative processes such as infiltrative HCC cannot be excluded. Further evaluation with ultrasound-guided biopsy of the liveris recommended. No biliary ductal dilation. Status post cholecystectomy, distal pancreatectomy and splenectomy. Signed: Ken Fleming MDReport Verified Date/Time: 02/24/2020 17:59:43 [facility] Body Reading Room [id number] 14:23:00 Test Item Value Reference Range Interpretation Comments FERRITIN (BEAKER) (test code = 308.70 ng/mL 5.00-275.00 H 361) International Project Engineer ID - [place] FHEPATITIS C [id number] 13:04:00 Test Item Value Reference Range Interpretation Comments HEPATITIS C ANTIBODY (BEAKER) Nonreactive Nonreactive (test code = 367) International Project Engineer ID - DBHEPATITIS B SURFACE [id number] 13:04:00 Test Item Value Reference Range Interpretation Comments HEPATITIS B SURFACE ANTIGEN (2) Nonreactive Nonreactive (BEAKER) (test code = 2585) Specimen is considered negative for HBsAg.HEPATITIS B CORE ANTIBODY, TOTAL 2020-02-24 13:02:00 Test Item Value Reference Range Interpretation Comments HEPATITIS B CORE TOTAL ANTIBODY Nonreactive Nonreactive (BEAKER) (test code = 497) International Project Engineer ID - DBHEPATITIS A ANTIBODY, [id number] 13:02:00 Test Item Value Reference Range Interpretation Comments HEPATITIS A IGG ANTIBODY (BEAKER) Nonreactive Nonreactive (test code = 2797) International Project Engineer ID - DBHEPATITIS B SURFACE [id number] 13:02:00 Test Item Value Reference Range Interpretation Comments HEPATITIS B SURFACE ANTIBODY < mIU/mL <8.0 (BEAKER) (test code = 647) International Project Engineer ID - DBALPHA FETOPROTEIN (AFP), TUMOR [id number] 13:02:00 Test Item Value Reference Range Interpretation Comments ALPHA-FETOPROTEIN (BEAKER) (test code < ng/mL <10.0 = 1094) International Project Engineer ID - DBIRON, TIBC, % SAT. (WITHOUT FERRITIN)2020-02-24 12:38:00 Test Item Value Reference Range Interpretation Comments IRON (BEAKER) (test code = 547) 44.0 ug/dL 40.0-160.0 TOTAL IRON BINDING CAPACITY 311 ug/dL 250-450 (BEAKER) (test code = 769) IRON % SATURATION (2) (BEAKER) 14 % 20-55 L (test code = 2590) International Project Engineer ID - [id number]-5-[id number] 12:38:00 Test Item Value Reference Range Interpretation Comments ALPHA-1 ANTITRYPSIN (BEAKER) 236.80 mg/dL 90.00-200.00 H (test code = 502) International Project Engineer ID - DBCOMPREHENSIVE METABOLIC [id number] 12:36:00 Test Item Value Reference Range Interpretation Comments TOTAL PROTEIN 7.3 gm/dL 6.0-8.3 (BEAKER) (test code = 770) ALBUMIN (BEAKER) 2.8 g/dL 3.5-5.0 L (test code = 1145) ALKALINE PHOSPHATASE 1018 U/L 40-150 H (BEAKER) (test code = 346) BILIRUBIN TOTAL 5.0 mg/dL 0.2-1.2 H (BEAKER) (test code = 377) SODIUM (BEAKER) (test 132 meq/L 136-145 L code = 381) POTASSIUM (BEAKER) 4.0 meq/L 3.5-5.1 (test code = 379) CHLORIDE (BEAKER) 98 meq/L 98-107 (test code = 382) CO2 (BEAKER) (test 22 meq/L 22-29 code = 355) BLOOD UREA NITROGEN 16 mg/dL 7-21 (BEAKER) (test code = 354) CREATININE (BEAKER) 1.03 mg/dL 0.57-1.25 (test code = 358) GLUCOSE RANDOM 210 mg/dL 70-105 H (BEAKER) (test code = 652) CALCIUM (BEAKER) 9.6 mg/dL 8.4-10.2 (test code = 697) AST (SGOT) (BEAKER) 68 U/L 5-34 H (test code = 353) ALT (SGPT) (BEAKER) 63 U/L 6-55 H (test code = 347) EGFR (BEAKER) (test 72 mL/min/1.73 ESTIMA ENDER GFR IS code = 1092) sq m NOT ACCURATE CREATININE CLEARANCE IN PREDICTING GLOMERULAR FILTRATION RATE . ESTIMATED GFR I S NOT APPLICABLE FOR DIALYSIS PATIEN TS. International Project Engineer ID - DBSpecimen slightly ictericBILIRUBIN, [id number] 12:36:00 Test Item Value Reference Range Interpretation Comments BILIRUBIN DIRECT (BEAKER) (test 3.7 mg/dL 0.1-0.5 H code = 706) International Project Engineer ID - DBGAMMA GLUTAMYL TRANSFERASE (GGT)2020-02-24 12:36:00 Test Item Value Reference Range Interpretation Comments GAMMA GLUTAMYL TRANSFERASE (BEAKER) 1607 U/L 9-64 H (test code = 364) International Project Engineer ID - DBSpecimen slightly ictericCBC W/PLT COUNT & AUTO DIFFERENTIAL 2020-02-24 12:30:00 Test Item Value Reference Range Interpretation Comments WHITE BLOOD CELL COUNT (BEAKER) 10.4 K/ L 3.5-10.5 (test code = 775) RED BLOOD CELL COUNT (BEAKER) 4.69 M/ L 4.63-6.08 (test code = 761) HEMOGLOBIN (BEAKER) (test code = 13.3 GM/DL 13.7-17.5 L 410) HEMATOCRIT (BEAKER) (test code = 39.6 % 40.1-51.0 L 411) MEAN CORPUSCULAR VOLUME (BEAKER) 84.4 fL 79.0-92.2 (test code = 753) MEAN CORPUSCULAR HEMOGLOBIN 28.4 pg 25.7-32.2 (BEAKER) (test code = 751) MEAN CORPUSCULAR HEMOGLOBIN CONC 33.6 GM/DL 32.3-36.5 (BEAKER) (test code = 752) RED CELL DISTRIBUTION WIDTH 21.0 % 11.6-14.4 H (BEAKER) (test code = 412) PLATELET COUNT (BEAKER) (test 566 K/CU MM 150-450 H code = 756) MEAN PLATELET VOLUME (BEAKER) 12.7 fL 9.4-12.4 H (test code = 754) NUCLEATED RED BLOOD CELLS 0 /100 WBC 0-0 (BEAKER) (test code = 413) NEUTROPHILS RELATIVE PERCENT 62 % (BEAKER) (test code = 429) LYMPHOCYTES RELATIVE PERCENT 19 % (BEAKER) (test code = 430) MONOCYTES RELATIVE PERCENT 11 % (BEAKER) (test code = 431) EOSINOPHILS RELATIVE PERCENT 7 % (BEAKER) (test code = 432) BASOPHILS RELATIVE PERCENT 1 % (BEAKER) (test code = 437) NEUTROPHILS ABSOLUTE COUNT 6.43 K/ L 1.78-5.38 H (BEAKER) (test code = 670) LYMPHOCYTES ABSOLUTE COUNT 1.98 K/ L 1.32-3.57 (BEAKER) (test code = 414) MONOCYTES ABSOLUTE COUNT (BEAKER) 1.17 K/ L 0.30-0.82 H (test code = 415) EOSINOPHILS ABSOLUTE COUNT 0.71 K/ L 0.04-0.54 H (BEAKER) (test code = 416) BASOPHILS ABSOLUTE COUNT (BEAKER) 0.06 K/ L 0.01-0.08 (test code = 417) IMMATURE GRANULOCYTES-RELATIVE 1 % 0-1 PERCENT (BEAKER) (test code = 2801) PROTHROMBIN TIME/[id number] 12:25:00 Test Item Value Reference Range Interpretation Comments PROTIME (BEAKER) (test code = 14.0 seconds 11.9-14.2 759) INR (BEAKER) (test code = 370) 1.11 <=5.90 Effective 07/11/2018: PT Reference Range ChangeNew: 11.9-14.2 Previous: 11.7- 14.7RECOMMENDED COUMADIN/WARFARIN INR THERAPY RANGESSTANDARD DOSE: 2.0-3.0 Includes: PROPHYLAXIS for venous thrombosis, systemic embolization; TREATMENT for venous thrombosis and/or pulmonary embolus.HIGH RISK: Target INR is 2.5-3.5 for patients wiht mechanical heart valves.XR ANKLE 3+ VW [id number] 21:23:01 Redemonstration of extensive postsurgical changes with placement of bonegraft materials or cement at the tibial calcaneal pseudoarthrosis withunchanged mid and hindfoot collapse. Overall, no significant change fromthe prior study. Extensive soft tissue swelling about the ankle and hindfoot. RL: 5045 End of report ORDERING PHYSICIAN: AUSTIN DIA CLINICAL HISTORY: ? ?pain Weightbearing TECHNIQUE: 3 views of the right foot and ankle COMPARISON: ?11/11/2019 FINDINGS: Extensive soft tissue swelling about the ankle and hindfoot. Again seen ar echanges status post resection of the talus with bone graft material orcement at the tibial calcaneal pseudoarthrosis unchanged associated mid andhindfoot collapse. Osteopenia. Degenerative changes of the first MTP joint.Surgical clips in the soft tissues of the medial calf. [facility], Radiant Results InftUser - 12/23/2019 3:24 PM CSTORDERING PHYSICIAN: AUSTIN DIACLINICAL HISTORY: pain WeightbearingTECHNIQUE: 3 views of the right foot and ankleCOMPARISON: 11/11/2019FINDINGS:Extensive soft tissue swelling about the ankle and hindfoot. Again seen arechanges status post resection of the talus with bone graft material orcement at the tibial calcaneal pseudoarthrosis unchanged associated mid andhindfoot collapse. Osteopenia. Degenerative changes of the first MTP joint.Surgical clips in the soft tissues of the medial calf.IMPRESSIONRedemonstration of extensive postsurgical changes with placement of bonegraft materials or cement at the tibial calcaneal pseudoarthrosis withunchanged mid and hindfoot collapse. Overall, no significant change fromthe prior study.Extensive soft tissue swelling about the ankle and hindfoot.RL: 5045End of report [facility]XR [facility]+ VW [id number] 21:23:01 Redemonstration of extensive postsurgical changes with placement of bonegraft materials or cement at the tibial calcaneal pseudoarthrosis withunchanged mid and hindfoot collapse. Overall, no significant change fromthe prior study. Extensive soft tissue swelling about the ankle and hindfoot. RL: 5045 End of report ORDERING PHYSICIAN: AUSTIN DIA CLINICAL HISTORY: ? ?pain Weightbearing TECHNIQUE: 3 views of the right foot and ankle COMPARISON: ?11/11/2019 FINDINGS: Extensive soft tissue swelling about the ankle and hindfoot. Again seen arechanges status post resection of the talus with bone graft material orcement at the tibial calcaneal pseudoarthrosis unchanged associated mid andhindfoot collapse. Osteopenia. Degenerative changes of the first MTP joint.Surgical clips in the soft tissues of the medial calf. [facility], Radiant Results InftUser - 12/23/2019 3:24 PM CSTORDERING PHYSICIAN: AUSTIN ENCINASHAVICLINICAL HISTORY: pain WeightbearingTECHNIQUE: 3 views of the right foot and ankleCOMPARISON: 11/11/2019FINDINGS:Extensive soft tissue swelling about the ankle and hindfoot. Again seen arechanges status post resection of the talus with bone graft material orcement at the tibial calcaneal pseudoarthrosis unchanged associated mid andhindfoot collapse. Osteopenia. Degenerative changes of the first MTP joint.Surgical clips in the soft tissues of the medial calf.IMPRESSIONRedemonstration of extensive postsurgical changes with placement of bonegraft materials or cement at the tibial calcaneal pseudoarthrosis withunchanged mid and hindfoot collapse. Overall, no significant change fromthe prior study.Extensive soft tissue swelling about the ankle and hindfoot.RL: 5045End of report [facility] CenterXR [facility]LE [facility]+ VW [id number] 19:31:25 Interval external spatial frame removal with collapse through the hindfootarticulation with interposed graft and/or antibiotic cement with no acuteosseous abnormalities. EXAM: XR ANKLE 3+ VW RIGHT, EXAM: XR TIBIA FIBULA 2 VW RIGHT, EXAM: XR FOOT 3+ VW RIGHT HISTORY: Clinic Weight Bearing COMPARISON: A 2019 FINDINGS: Imaging of the ankle, foot, tibia and fibula demonstrate interval externalspatial frame removal. Soft tissue swelling and osteopenia are present withdiabetic type vascular calcifications. Partial collapse through the tibialcalcaneal pseudoarthrosis is seen with interposed bone graft and/orantibiotic cement. This debris extends to the articular margins of thenavicular and cuneiforms. Surrounding osseous fragmentation is seen. Chronic cortical periosteal remodeling is seen about the distal tibia andfibula. Healing hardware tracks are noted throughout the tibia, fibula,calcaneus and medial cuneiform with tibia fibula periosteal reaction.Vascular clips are seen over the medial legand knee. [facility], Radiant Results Inft User - 11/11/2019 2:32 PM CDTEXAM:XR ANKLE 3+ VW RIGHT,EXAM:XR TIBIA FIBULA 2 VW RIGHT,EXAM:XR FOOT 3+ VW RIGHTHISTORY:Clinic Weight BearingCOMPARISON:September 2019FINDINGS: Imaging of the ankle, foot, tibia and fibula demonstrate interval externalspatial frame remova l. Soft tissue swelling and osteopenia are present withdiabetic type vascular calcifications. Partial collapse through the tibialcalcaneal pseudoarthrosis is seen with interposed bone graft and/orantibiotic cement. This debris extends to the articular margins of thenavicular and cuneiforms. Surrounding osseous fragmentation is seen. Chronic cortical periosteal remodeling is seen about the distal tibia andfibula. Healing hardware tracks are noted throughout the tibia, fibula,calcaneus and medial cuneiform with tibia fibula periosteal reaction.Vascular clips are seen over the medial leg and knee. IMPR ESSIONInterval external spatial frame removal with collapse through the hindfootarticulation with interposed graft and/or antibiotic cement with no acuteosseous abnormalities.[facility]XR [facility] VW RIGHT 2019-11-11 19:31:25 Interval external spatial frame removal with collapse through the hindfootarticulation with interposed graft and/or antibiotic cement with no acuteosseous abnormalities. EXAM: XR ANKLE 3+ VW RIGHT, EXAM: XR TIBIA FIBULA 2 VW RIGHT, EXAM: XR FOOT 3+ VW RIGHT HISTORY: Clinic Weight Bearing COMPARISON: September 2019 FINDINGS: Imaging of the ankle, foot, tibia and fibula demonstrate interval externalspatial frame removal. Soft tissue swelling and osteopenia are present withdiabetic type vascular calcifications. Partial collapse through the tibialcalcaneal pseudoarthrosis is seen with interposed bone graft and/orantibiotic cement. This debris extends to the articular margins of thenavicular and cuneiforms. Surrounding osseous fragmentation is seen. Chronic cortical periosteal remodeling is seen about the distal tibia andfibula. Healing hardware tracks are noted throughout the tibia, fibula,calcaneus and medial cuneiform with tibia fibula periosteal reaction.Vascular clips are seen over the medial legand knee. [facility], Radiant Results Inft User - 11/11/2019 2:32 PM CDTEXAM:XR ANKLE 3+ VW RIGHT,EXAM:XR TIBIA FIBULA 2 VW RIGHT,EXAM:XR FOOT 3+ VW RIGHTHISTORY:Clinic Weight BearingCOMPARISON:September 2019FINDINGS: Imaging of the ankle, foot, tibia and fibula demonstrate interval externalspatial frame removal. Soft tissue swelling and osteopenia are present withdiabetic type vascular calcifications. Partial collapse through the tibialcalcaneal pseudoarthrosis is seen with interposed bone graft and/orantibiotic cement. This debris extends to the articular margins of thenavicular and cuneiforms. Surrounding osseous fragmentation is seen. Chronic cortical periosteal remodeling is seen about the distal tibia andfibula. Healing hardware tracks are noted throughout the tibia, fibula,calcaneus and medial cuneiform with tibia fibula periosteal reaction.Vascular clips are seen over the medial leg and knee. IMPRESSIONInterval external spatial frame removal with collapse through the hindfootarticulation with interposed graft and/or antibiotic cement with no acuteosseous abnormalities.[facility] CenterXR TIBIA FIBULA 2 VW [id number] 19:31:25 Interval external spatial frame removal with collapse through the hindfootarticulation with interposed graft and/or antibiotic cement with no acuteosseous abnormalities. EXAM: XR ANKLE 3+ VW RIGHT, EXAM: XR TIBIA FIBULA 2 VW RIGHT, EXAM: XR FOOT 3+ VW RIGHT HISTORY: Clinic Weight Bearing COMPARISON: September 2019 FINDINGS: Imaging of the ankle, foot, tibia and fibula demonstrate interval externalspatial frame removal. Soft tissue swelling and osteopenia are present withdiabetic type vascular calcifica tions. Partial collapse through the tibialcalcaneal pseudoarthrosis is seen with interposed bone graft and/orantibiotic cement. This debris extends to the articular margins of thenavicular and cuneiforms. Surrounding osseous fragmentation is seen. Chronic cortical periosteal remodeling is seen about the distal tibia andfibula. Healing hardware tracks are noted throughout the tibia, fibula,calcaneus and medial cuneiform with tibia fibula periosteal reaction.Vascular clips are seen over the medial legand knee. [facility], Radiant Results Inft User - 11/11/2019 2:32 PM CDTEXAM:XR ANKLE 3+ VW RIGHT,EXAM:XR T IBIA FIBULA 2 VW RIGHT,EXAM:XR FOOT 3+ VW RIGHTHISTORY:Clinic Weight BearingCOMPARISON:September 2019FINDINGS: Imaging of the ankle, foot, tibia and fibula demonstrate interval externalspatial frame removal. Soft tissue swelling and osteopenia are present withdiabetic type vascular calcifications. Partial collapse through the tibialcalcaneal pseudoarthrosis is seen with interposed bone graft and/orantibiotic cement. This debris extends to the articular margins of thenavicular and cuneiforms. Surrounding osseous fragmentation is seen. Chronic cortical periosteal remodeling is seen about the distal tibia andfibula. Healing hardware tracks are noted throughout the tibia, fibula,calcaneus and medial cuneiform with tibia fibula periosteal reaction.Vascular clips are seen over the medial leg and knee. IMPRESSIONInterval external spatial frame removal with collapse through the hindfootarticulation with interposed graft and/or antibiotic cement with no acuteosseous abnormalities.[facility]2019-[facility] 14:04:00 Test Item Value Reference Range Interpretation Comments POCT GLU (test code = 7807982864) 167 mg/dL 70-110 H Lab Interpretation (test code = Abnormal 68569-5) [facility]W [id number] 20:22:49 Stable external and pin fixation of the hindfoot and midfoot. EXAM: XR FOOT 3+ VW RIGHT, XR TIBIA FIBULA 2 VW RIGHT, XR ANKLE 3+ VW RIGHT HISTORY: clinic COMPARISON: 07/22/2019 FINDINGS: Imaging of the right tibia/fibula, ankle and foot was obtained. Externalfixation hardware is unchanged. No acute hardware complication is seen.Bone graft and/or cement is seen at the tibiocalcaneal pseudoarthrosis andcalcaneocuboid joint. Ghost tracks are seen in the distal tibia. Periostealreaction is seen about thedistal tibia and fibula, unchanged.Osteoarthritic changes are seen at the first MTP joint. Disuse ost eopeniais noted. Surgical clips are seen. Diffuse soft tissue swelling is present. [facility], Radiant Results Inft User - 09/23/2019 3:23 PM CDTEXAM:XR FOOT 3+ VW RIGHT, XR TIBIA FIBULA 2 VW RIGHT, XR ANKLE3+ VW RIGHTHISTORY:clinic COMPARISON:07/22/2019FINDINGS: Imaging of the right tibia/fibula, ankle and foot was obtained. Externalfixation hardware is unchanged. No acute hardware complication is seen.Bone graft and/or cement is seen at the tibiocalcaneal pseudoarthrosis andcalcaneocuboid joint. Ghost tracks are seen in the distal tibia. Periostealreaction is seen about the distal tibia and fibula, uncha nged.Osteoarthritic changes are seen at the first MTP joint. Disuse osteopeniais noted. Surgical clips are seen. Diffuse soft tissue swelling is present.IMPRESSIONStable external and pin fixation of the hindfoot and midfoot. [facility]W [id number] 20:22:49 Stable external and pin fixation of the hindfoot and midfoot. EXAM: XR FOOT 3+ VW RIGHT, XR TIBIA FIBULA 2 VW RIGHT, XR ANKLE 3+ VW RIGHT HISTORY: clinic COMPARISON: 07/22/2019 FINDINGS: Imaging of the right tibia/fibula, ankle and foot was obtained. Externalfixation hardware is unchanged. No acute hardware complication is seen.Bone graft and/or cement is seen at the tibiocalcaneal pseudoarthrosis andcalcaneocuboid joint. Ghost tracks are seen in the distal tibia. Periostealreaction is seen about thedistal tibia and fibula, unchanged.Osteoarthritic changes are seen at the first MTP joint. Disuse ost eopeniais noted. Surgical clips are seen. Diffuse soft tissue swelling is present. [facility], Radiant Results Inft User - 09/23/2019 3:23 PM CDTEXAM:XR FOOT 3+ VW RIGHT, XR TIBIA FIBULA 2 VW RIGHT, XR ANKLE3+ VW RIGHTHISTORY:clinic COMPARISON:07/22/2019FINDINGS: Imaging of the right tibia/fibula, ankle and foot was obtained. Externalfixation hardware is unchanged. No acute hardware complication is seen.Bone graft and/or cement is seen at the tibiocalcaneal pseudoarthrosis andcalcaneocuboid joint. Ghost tracks are seen in the distal tibia. Periostealreaction is seen about the distal tibia and fibula, uncha nged.Osteoarthritic changes are seen at the first MTP joint. Disuse osteopeniais noted. Surgical clips are seen. Diffuse soft tissue swelling is present.IMPRESSIONStable external and pin fixation of the hindfoot and midfoot. [facility] TIBIA FIBULA 2 VW [id number] 20:22:49 Stable external and pin fixation of the hindfoot and midfoot. EXAM: XR FOOT 3+ VW RIGHT, XR TIBIA FIBULA 2 VW RIGHT, XR ANKLE 3+ VW RIGHT HISTORY: clinic COMPARISON: 07/22/2019 FINDINGS: Imaging of the right tibia/fibula, ankle and foot was obtained. Externalfixation hardware is unchanged. No acute hardware complication is seen.Bone graft and/or cement is seen at the tibiocalcaneal pseudoarthrosis andcalcaneocuboid joint. Ghost tracks are seen in the distal tibia. Periostealreaction is seen about thedistal tibia and fibula, unchanged.Osteoarthritic changes are seen at the first MTP joint. Disuse ost eopeniais noted. Surgical clips are seen. Diffuse soft tissue swelling is present. [facility], Radiant Results Inft User - 09/23/2019 3:23 PM CDTEXAM:XR FOOT 3+ VW RIGHT, XR TIBIA FIBULA 2 VW RIGHT, XR ANKLE3+ VW RIGHTHISTORY:clinic COMPARISON:07/22/2019FINDINGS: Imaging of the right tibia/fibula, ankle and foot was obtained. Externalfixation hardware is unchanged. No acute hardware complication is seen.Bone graft and/or cement is seen at the tibiocalcaneal pseudoarthrosis andcalcaneocuboid joint. Ghost tracks are seen in the distal tibia. Periostealreaction is seen about the distal tibia and fibula, uncha nged.Osteoarthritic changes are seen at the first MTP joint. Disuse osteopeniais noted. Surgical clips are seen. Diffuse soft tissue swelling is present.IMPRESSIONStable external and pin fixation of the hindfoot and midfoot. [facility] GLUCOSE (AUTOMATED)2019-09-13 17:11:00 Test Item Value Reference Range Interpretation Comments POCT GLU (test code = 3883700331) 167 mg/dL 70-110 H Lab Interpretation (test code = Abnormal 97590-7) [facility] CenterVIT[facility] D, [id number] 15:35:00 Test Item Value Reference Range Interpretation Comments VIT D 25OH (test code = <13 25-80 L 26213-9) LUIS ANGEL (test code = LUIS ANGEL) Deficiency: <20 ng/mLInsufficiency: 20-24 ng/mLOptimal: 25-80 ng/mL Lab Interpretation (test Abnormal code = 88668-8) [facility] GLUCOSE (AUTOMATED)2019-09-13 13:25:00 Test Item Value Reference Range Interpretation Comments POCT GLU (test code = 1440297888) 179 mg/dL 70-110 H Lab Interpretation (test code = Abnormal 92780-1) [facility] [id number] 09:48:00 Test Item Value Reference Range Interpretation Comments TROPONIN I (test <0.012 See_Comment [Automated code = 7479177699) message] The system which generated this result transmitted reference range : <=0.034 ng/mL. The reference range was not used to interpr et this result as normal/abnormal . LUIS ANGEL (test code = Equal or Less than LUIS ANGEL) 0.034 ng/ml---Normal ?Note: Cardiac troponin begins to rise 3-4 hours after the onset of ischemia. Repeat in 4-6 hours if the sample was drawn within 3-4 hours of the onset of the symptom and found normal. Between 0.035 and 0.120 ng/mL--- Borderline. Questionable myocardial injury or necrosis ? ?Note: Serial measurement may be necessary to confirm or exclude the diagnosis of myocardial injury or necrosis; Clinical correlation (symptoms, EKGs, imaging studies, and others) required; Repeat in 4-6 hours if clinically indicated. ? Equal or Higher than 0.121 ng/mL---Abnormal. Myocardial Injury or Necrosis Likely ? Biotin has been reported to cause a negative bias, interpret results relative to patient's use of biotin. ? Lab Interpretation Normal (test code = 28079-1) [facility] CenterGLYCOSYLATED HEMOGLOBIN (A1C)2019-09-13 07:00:00 Test Item Value Reference Range Interpretation Comments HGB A1C (test code = 8.7 % 4-6 H 4548-4) LUIS ANGEL (test code = LUIS ANGEL) %A1C (NGSP) Interpretation (ADA)4.8-5.6 ? ? Normal or (Non-Diabetic Range)5.7-6.4 ? ? Increased Risk (Pre-Diabetic)>6.5 ?Diabetes Indicated Lab Interpretation Abnormal (test code = 17748-4) [facility] [id number] 02:06:00 Test Item Value Reference Range Interpretation Comments TROPONIN I (test <0.012 See_Comment [Automated code = 8001392978) message] The system which generated this result transmitted reference range : <=0.034 ng/mL. The reference range was not used to interpr et this result as normal/abnormal . LUIS ANGEL (test code = Equal or Less than LUIS ANGEL) 0.034 ng/ml---Normal ?Note: Cardiac troponin begins to rise 3-4 hours after the onset of ischemia. Repeat in 4-6 hours if the sample was drawn within 3-4 hours of the onset of the symptom and found normal. Between 0.035 and 0.120 ng/mL--- Borderline. Questionable myocardial injury or necrosis ? ?Note: Serial measurement may be necessary to confirm or exclude the diagnosis of myocardial injury or necrosis; Clinical correlation (symptoms, EKGs, imaging studies, and others) required; Repeat in 4-6 hours if clinically indicated. ? Equal or Higher than 0.121 ng/mL---Abnormal. Myocardial Injury or Necrosis Likely ? Biotin has been reported to cause a negative bias, interpret results relative to patient's use of biotin. ? Lab Interpretation Normal (test code = 78744-8) [facility]2019-09-13 01:21:00 Test Item Value Reference Range Interpretation Comments POCT GLU (test code = 1210780891) 235 mg/dL 70-110 H Lab Interpretation (test code = Abnormal 98762-0) [facility] CenterCOVID-[facility] (ID NOW RAPID TESTING)2019-09-12 20:57:00 Test Item Value Reference Range Interpretation Comments SARS-CoV-2 Rapid ID NOW Not Detected Not Detected (test code = 44570-9) LUIS ANGEL (test code = LUIS ANGEL) ID NOW COVID-19 Assay is an isothermal nucleic acid amplification test intended for the qualitative detection of nucleic acid from SARS-CoV-2 viral RNA in nasopharyngeal (LINK CUTTER) specimens. It is used under Emergency Use Authorization (EUA) by FDA. The limit of detection (LOD) of the assay is 125 Genome Equivalents/mL. A positive result is indicative of the presence of SARS-CoV-2 RNA. ?Clinical correlation with patient history and other diagnostic information is necessary to determine patient infection status. A negative (Not Detected) result does not preclude SARS-CoV-2 infection. In patients with clinical symptoms and other tests that are consistent with SARS-CoV-2 infection, negative results should be treated as presumptive negative and a new specimen should be tested with alternative PCR molecular test. Invalid: Please collect a new specimen for repeat patient testing if clinically indicated. Lab Interpretation Normal (test code = 69350-2) [facility]XR [facility]ST 1 [id number] 20:23:58HISTORY: Fatigue. TECHNIQUE: Portable AP erect view of the chest is obtained. Comparison madewith 08/30/2014 study. FINDINGS: No acute pneumonia. No pneumothorax or pleural effusion orpulmonary congestion detected. Cardiac size is within upper normal limits.Calcified granulomas are seen in the left midlung. Sternotomy sutures notedin the midline. CONCLUSIONS: No signs of acute cardiopulmonary disease.[facility], Radiant Results Inft User - 09/12/2019 3:25 PM CDTHISTORY: Fatigue.TECHNIQUE: Portable AP erectview of the chest is obtained. Comparison madewith 08/30/2014 study.FINDINGS: No acute pneumonia. No pneumothorax or pleural effusion orpulmonary congestion detected. Cardiac size is within upper normallimits.Calcified granulomas are seen in the left midlung. Sternotomy sutures notedin the midline.CONCLUSIONS: No signs of acute cardiopulmonary disease.[facility] with [id number] 19:28:00 Test Item Value Reference Range Interpretation Comments WBC (test code = See_Comment H [Automated 7690-2) message] The sy stem which generated this result transmitted reference range : 4.20 - 10.70 10*3/?L. The reference range was not used to interpret this result as normal/abnormal . RBC (test code = See_Comment [Automated 434-8) message] The sy stem which generated this result transmitted reference range : 4.26 - 5.52 10*6/?L. The reference range was not used to interpret this result as normal/abnormal . HGB (test code = 15.0 g/dL 12.2-16.4 718-7) HCT (test code = 45.3 % 38.4-49.3 4544-3) MCV (test code = 84.2 fL 81.7-95.6 787-2) MCH (test code = 27.9 pg 26.1-32.7 785-6) MCHC (test code = 33.1 g/dL 31.2-35 786-4) RDW-SD (test code = 44.8 fL 38.5-51.6 35963-7) RDW-CV (test code = 14.7 % 12.1-15.4 788-0) PLT (test code = See_Comment H [Automated 777-3) message] The sy stem which generated this result transmitted reference range : 150 - 328 10*3/ ?L. The reference r sherice was not used to interpret this result as normal/abnormal . MPV (test code = 11.4 fL 9.8-13 48688-9) NRBC/100 WBC (test See_Comment [Automat ed code = 4377721367) message] The system which generated this result transmitted reference range : 0.0 - 10.0 /100 WBCs. The refer ence range was not u sed to interpret th is result as normal/abnormal . NRBC x10^3 (test code <0.01 See_Comment [Auto mated = 9591083113) message] The s ystem which generated this result transmitted reference range : 10*3/?L. The reference range was not used to interpret this result as normal/abnormal . GRAN MAT (NEUT) % 61.9 % (test code = 770-8) IMM GRAN % (test code 0.40 % = 3343717884) LYMPH % (test code = 19.9 % 736-9) MONO % (test code = 13.7 % 5905-5) EOS % (test code = 3.5 % 713-8) BASO % (test code = 0.6 % 706-2) GRAN MAT x10^3(ANC) 6.98 10*3/uL 1.99-6.95 H (test code = 6790343346) IMM GRAN x10^3 (test 0.04 10*3/uL 0-0.06 code = 9103517455) LYMPH x10^3 (test code 2.25 10*3/uL 1.09-3.23 = 731-0) MONO x10^3 (test code 1.55 10*3/uL 0.36-1.02 H = 742-7) EOS x10^3 (test code = 0.40 10*3/uL 0.06-0.53 711-2) BASO x10^3 (test code 0.07 10*3/uL 0.01-0.09 = 704-7) Lab Interpretation Abnormal (test code = 28606-9) [facility] CenterTroponin [id number] 19:16:00 Test Item Value Reference Range Interpretation Comments TROPONIN I (test <0.012 See_Comment [Automated code = 9934712121) message] The system which generated this result transmitted reference range : <=0.034 ng/mL. The reference range was not used to interpr et this result as normal/abnormal . LUIS ANGEL (test code = Equal or Less than LUIS ANGEL) 0.034 ng/ml---Normal ?Note: Cardiac troponin begins to rise 3-4 hours after the onset of ischemia. Repeat in 4-6 hours if the sample was drawn within 3-4 hours of the onset of the symptom and found normal. Between 0.035 and 0.120 ng/mL--- Borderline. Questionable myocardial injury or necrosis ? ?Note: Serial measurement may be necessary to confirm or exclude the diagnosis of myocardial injury or necrosis; Clinical correlation (symptoms, EKGs, imaging studies, and others) required; Repeat in 4-6 hours if clinically indicated. ? Equal or Higher than 0.121 ng/mL---Abnormal. Myocardial Injury or Necrosis Likely ? Biotin has been reported to cause a negative bias, interpret results relative to patient's use of biotin. ? Lab Interpretation Normal (test code = 61176-4) [facility] CenterN-TERMINAL [id number] 19:12:00 Test Item Value Reference Range Interpretation Comments NT-proBNP (test code 84 pg/mL See_Comment [Autom ated = 1189153959) message] The system which generated this result transmitted reference range : <=125. The reference range was not used to interpret this result as normal/abnormal . LUIS ANGEL (test code = LUIS ANGEL) Biotin has been reported to cause a negative bias, interpret results relative to patient's use of biotin. Lab Interpretation Normal (test code = 23386-9) [facility] CenterUrinalysis2020-07-30 19:12:00 Test Item Value Reference Range Interpretation Comments APPEARANCE (test code = Hazy Clear A 1209130788) COLOR (test code = Cris Yellow A 1028187713) PH (test code = 4.8-8.0 0607631432) SP GRAVITY (test code = 1.003-1.030 0631514670) GLU U QUAL (test code = 50 mg/dL Normal A 2733884877) BLOOD (test code = Negative Negative 0502429104) KETONES (test code = Negative Negative 7968749065) PROTEIN (test code = 100 mg/dL Negative A 2887-8) UROBILIN (test code = 4.0 mg/dL Normal A 5801959727) BILIRUBIN (test code = Negative Negative 9808783941) NITRITE (test code = Negative Negative 2395173885) LEUK JARVIS (test code = Negative Negative 8367737124) RBC/HPF (test code = See_Comment [Autom ated message] 7730585752) The system AKT generated this result transmit ender reference range : 0 - 3 HPF. The refe rence range was not u sed to interpret th is result as normal/abnormal . WBC/HPF (test code = See_Comment [Autom ated message] 3501955133) The system AKT generated this result transmit ender reference range : 0 - 5 HPF. The refe rence range was not u sed to interpret th is result as normal/abnormal . BACTERIA (test code = Negative Negative 8913895855) MUCOUS (test code = Slight Negative LPF A 5160807339) SQ EPITH (test code = HPF 5050452277) HYAL CAST (test code = See_Comment H [Aut omated message] 3700305440) The system AKT generated this result transmit ender reference range : <=2 LPF. The refere nce range was not u sed to interpret th is result as normal/abnormal . Lab Interpretation (test Abnormal code = 58455-2) [facility] Metabolic Panel (NA, K, CL, CO2, GLUCOSE, BUN, CREATININE, CA)2019-09-12 19:05:00 Test Item Value Reference Range Interpretation Comments NA (test code = 136 mmol/L 135-145 0693755883) K (test code = 4.4 mmol/L 3.5-5 5049580411) CL (test code = 101 mmol/L 98-108 8002117887) CO2 TOTAL (test code = 26 mmol/L 23-31 6497242678) AGAP (test code = 2-16 4520532684) BUN (test code = 19 mg/dL 7-23 6655354805) GLUCOSE (test code = 223 mg/dL 70-110 H 8915519162) CREATININE (test code = 1.12 mg/dL 0.6-1.25 4753055728) CALCIUM (test code = 10.2 mg/dL 8.6-10.6 8852677223) eGFR Calculation mL/min/1.73m2 (Non-) (test code = 7910530542) eGFR Calculation mL/min/1.73m2 () (test code = 5421961742) LUIS ANGEL (test code = LUIS ANGEL) Association of Glomerular Filtration Rate (GFR) and Staging of Kidney Disease* + --+ --+ ------+| GFR (mL/min/1.73 m2) ?| With Kidney Damage ?| ?Without Kidney Damage+ --------+ --------+ +| ?>90 ?| ?Stage one ?| ? Normal ?+ ---+ ---+ -------+| ?60-89 ?| ?Stage two ?| ? Decreased GFR ? + --+ --+ ------+| ?30-59 ?| ?Stage three ?| ? Stage three ? + --+ --+ ------+| ?15-29 ?| ?Stage four ? | ? Stage four ?+ ---+ ---+ -------+| ?<15 (or dialysis) ? ?| ?Stage five ? | ? Stage five ?+ ---+ ---+ -------+ *Each stage assumes the associated GFR level has been in effect for at least three months. ?Stages 1 to 5, with or without kidney disease, indicate chronic kidney disease. Notes: Determination of stages one and two (with eGFR >59mL/min/1.73 m2) requires estimation of kidney damage for at least three months as defined by structural or functional abnormalities of the kidney, manifested by either:Pathological abnormalities or Markers of kidney damage (including abnormalities in the composition of the blood or urine or abnormalities in imaging tests). Lab Interpretation Abnormal (test code = 31139-5) [facility] (ALB, T.PRO, BILI T, BU/BC, ALT, AST, ALK PHOS)2019-09-12 19:05:00 Test Item Value Reference Range Interpretation Comments TOTAL BILI (test code = 2957066913) 0.9 mg/dL 0.1-1.1 BILI UNCON (test code = 6891084574) 0.7 mg/dL 0.1-1.1 BILI CONJ (test code = 2907289090) 0.0 mg/dL 0-0.3 T PROTEIN (test code = 6350100191) 8.2 g/dL 6.3-8.2 ALBUMIN (test code = 8343427112) 4.0 g/dL 3.5-5 ALK PHOS (test code = 4153905825) 455 U/L 34-122 H ALTv (test code = 1742-6) 42 U/L 5-50 AST(SGOT) (test code = 0707290103) 44 U/L 13-40 H Lab Interpretation (test code = Abnormal 64665-1) [facility] CenterLipase [id number] 19:05:00 Test Item Value Reference Range Interpretation Comments LIPASE (test code = 9578225526) 45 U/L 0-220 Lab Interpretation (test code = Normal 72302-5) [facility] CenterCT Head W/O [id number] 18:24:38No acute findings. HISTORY:Stroke suspected, ataxia TECHNIQUE: Noncontrast head CT was performed. COMPARISON:None FINDINGS: The ventricles and sulci are appropriate for patient's age. ASPECTS SCORE: 10. There is no midline shift. The basal cisterns are preserved. No largevascular territory infarction,intracranial hemorrhage or mass effect isseen. The extracranial tissues demonstrate no acute findings. [facility], Radiant Results Inft User - 09/12/2019 1:25 PM CDTHISTORY:Stroke suspected, ataxia TECHNIQUE: Noncontrast head CT was performed.COMPARISON:NoneFINDINGS:The ventricles and sulci are appropriate for patient's age.ASPECTS SCORE: 10.There is no midline shift. The basal cisterns are preserved. No largevascular territory infarction, intracranial hemorrhage or mass effect isseen.The extracranial tissues demonstrate no acute findings.IMPRESSIONNo acute findings.[facility]XR [facility]+ VW [id number] 19:45:13 No acute osseous abnormality. Mild acromioclavicular and glenohumeral joint osteoarthrosis. Preliminary Report Dictated by Resident: aTmy Kirkpatrick MD., have reviewed this study and agree with the abovereport.XR SHOULDER 2+ VW LEFT HISTORY: 64 years-old Male with left shoulder pain COMPARISON: None FINDINGS: Radiographs of the shoulder demonstrate no acute fracture or dislocation.Mild acromioclavicular and glenohumeral joint space narrowing andsubchondral sclerosis are noted. M edian sternotomy wires are seen. A screwprojects over the chest. [facility], Radiant Results Inft User - 07/29/2019 2:46 PM CDTXR SHOULDER 2+ VW LEFTHISTORY: 64 years-old Male with left shoulder pain COMPARISON: NoneFINDINGS:Radiographs of the shoulder demonstrate no acute fracture or dislocation.Mild acromioclavicular and glenohumeral joint space narrowing andsubchondral sclerosis are noted. Median sternotomy wires are seen. A screwprojects over the chest.IMPRESSIONNo acute osseous abnormality.Mild acromioclavicular and glenohumeral joint osteoarthrosis.Preliminary Report Dictated by Resident: Tamy Armstrong MD., have reviewed this study and agree with the abovereport. [facility] VW [id number] 19:56:09 Stable uncomplicated hind and midfoot external and percutaneous pinfixation. Disuse osteopenia. Preliminary Report Dictated by Resident: [place] I, Sj Velasquez MD., have reviewed this study and agree with the abovereport. EXAM: Exam: XR ANKLE 3+ VW RIGHT EXAM: XR FOOT 3+ VW RIGHT HISTORY:63 years-old Male clinic COMPARISON: Foot radiograph 03/11/2019, foot and ankle radiographs 06/10/2019FINDINGS: Radiographs of the foot and ankle demonstrate unchanged external and pinfixation through the tibia, fibula, midfoot pseudoarthrosis, and talus. Noparalleling hardware lucency or acute hardware complication is identified.Bone graft and/or antibiotic cement is in place at tibial calcanealpseudoarthrosis and calcaneal cuboidal joint. Ghost track is seen in thedistal tibia. ?Linear periosteal reaction persists about the distaltibia/fibula. Flattening of the first metatarsal head with MTP jointspace narrowing,subchondral sclerosis and osteophytosis are noted. Alignment acrossLisfranc intervalis maintained. Progressive disuse osteopenia is appreciated. Surgical clips are noted.Ankle soft tissue swelling is grossly unchanged. [facility], Radiant Results Inft User - 07/22/2019 2:57 PM CDTEXAM:Exam:XR ANKLE 3+ VW RIGHTEXAM: XR FOOT 3+ VW RIGHTHISTORY: 63 years-old Male clinic COMPARISON: Foot radiograph 03/11/2019, foot and ankle radiographs 06/10/2019FINDINGS:Radiographs of the foot and ankle demonstrate unchanged external and pinfixation through the tibia, fibula, midfoot pseudoarthrosis, and talus. Noparalleling hardware lucency or acute hardware complication is identified.Bone graft and/or antibiotic cement is in place at tibial calcanealpseudoarthrosis and calcaneal cuboidal joint. Ghost track is seen in thedistal tibia. Linear periosteal reaction persists about the distaltibia/fibula.Flattening of the first metatarsal head with MTP joint space narrowing,subchondral sclerosis and osteophytosis are noted. Alignment acrossLisfranc interval is maintained.Progressive disuse osteopenia is appr eciated. Surgical clips are noted.Ankle soft tissue swelling is grossly unchanged.IMPRESSIONStable uncomplicated hind and midfoot external and percutaneous pinfixation. Disuse osteopenia.Preliminary Report Dictated by Resident: Sj Armstrong MD., have reviewed this study and agree with the abovereport.[facility] 2019-07-22 19:56:09 Stable uncomplicated hind and midfoot external and percutaneous pinfixation. Disuse osteopenia. Preliminary Report Dictated by Resident: Catracho Groves I, Sj Velasquez MD., have reviewed this study and agree with the abovereport. EXAM: Exam: XR ANKLE 3+ VW RIGHT EXAM: XR FOOT 3+ VW RIGHT HISTORY:63 years-old Male clinic COMPARISON: Foot radiograph 03/11/2019, foot and ankle radiographs 06/10/2019FINDINGS: Radiographs of the foot and ankle demonstrate unchanged external and pinfixation through the tibia, fibula, midfoot pseudoarthrosis, and talus. Noparalleling hardware lucency or acute hardware complication is identified.Bone graft and/or antibiotic cement is in place at tibial calcanealpseudoarthrosis and calcaneal cuboidal joint. Ghost track is seen in thedistal tibia. ?Linear periosteal reaction persists about the distaltibia/fibula. Flattening of the first metatarsal head with MTP jointspace narrowing,subchondral sclerosis and osteophytosis are noted. Alignment acrossLisfranc intervalis maintained. Progressive disuse osteopenia is appreciated. Surgical clips are noted.Ankle soft tissue swelling is grossly unchanged. [facility], Radiant Results Inft User - 07/22/2019 2:57 PM CDTEXAM:Exam:XR ANKLE 3+ VW RIGHTEXAM: XR FOOT 3+ VW RIGHTHISTORY: 63 years-old Male clinic COMPARISON: Foot radiograph 03/11/2019, foot and ankle radiographs 06/10/2019FINDINGS:Radiographs of the foot and ankle demonstrate unchanged external and pinfixation through the tibia, fibula, midfoot pseudoarthrosis, and talus. Noparalleling hardware lucency or acute hardware complication is identified.Bone graft and/or antibiotic cement is in place at tibial calcanealpseudoarthrosis and calcaneal cuboidal joint. Ghost track is seen in thedistal tibia. Linear periosteal reaction persists about the distaltibia/fibula.Flattening of the first metatarsal head with MTP joint space narrowing,subchondral sclerosis and osteophytosis are noted. Alignment acrossLisfranc interval is maintained.Progressive disuse osteopenia is appr eciated. Surgical clips are noted.Ankle soft tissue swelling is grossly unchanged.IMPRESSIONStable uncomplicated hind and midfoot external and percutaneous pinfixation. Disuse osteopenia.Preliminary Report Dictated by Resident: Catracho Mcintosh, Sj Velasquez MD., have reviewed this study and agree with the abovereport.[facility]IBUL[facility] 2 VW [id number] 19:18:38 Uncomplicated hind and midfoot external fixation and percutaneous pinfixation. Disuse osteopenia. Preliminary Report Dictated by Resident: Jia Servin I, Sj Velasquez MD., have reviewed this study and agree with the abovereport.EXAM: XR ANKLE 3+ VW RIGHT, EXAM: XR FOOT 3+ VW RIGHT, EXAM: XR TIBIA FIBULA 2 VW RIGHT HISTORY: clinic COMPARISON: Radiographs on 04/29/2019 FINDINGS: Radiographs demonstrate external and pin fixation through the tibia,fibula, tibial midfoot pseudoarthrosis, and talus. No paralleling hardwarelucency or acute hardware complication is present. Ghost hardware tracksarenoted in the distal tibia. Bone graft and/or antibiotic cement is inplace at a tibial calcaneal pseudoarthrosis and the calcaneal cuboid jointwith surrounding osseous debris. Linear periosteal reactionpersists aboutthe distal tibia and mid and distal fibula. Vascular clips are seen overthe proximal leg and knee. Flattening of the metatarsal head is noted with first MTP joint spacenarrowing, subchondral sclerosis and marginal osteophytosis. Alignmentacross Lisfranc's interval is maintained. Disuse osteopenia is present,progressed from prior. Ankle soft tissue swelling is present, improved fromprior. Chronic remodeling and resorption is seen along the lateral aspectof the navicular. Diabetic type vascular calcifications are present. [facility], Radiant Results Inft User - 06/10/2019 2:19 PM CDTEXAM: XR ANKLE 3+ VW RIGHT,EXAM: XR FOOT 3+ VW RIGHT,EXAM: XR TIBIA FIBULA 2 VW RIGHTHISTORY: clinic COMPARISON: Radiographs on 04/29/2019FINDINGS:Radiographs demonstrate external and pin fixation through the tibia,fibula, tibial midfoot pseudoarthrosis, and talus. No paralleling hardwarelucency or acute hardware complication is present. Ghost hardware tracksare noted in the distal tibia. Bone graft and/or antibiotic cement is inplace at a tibial calcaneal pseudoarthrosis and the calcaneal cuboid jointwith surrounding osseous debris. Linear periosteal reaction persists aboutthe distal tibia and mid and distalfibula. Vascular clips are seen overthe proximal leg and knee.Flattening of the metatarsal head is noted with first MTP joint spacenarrowing, subchondral sclerosis and marginal osteophytosis. Alignmentacross Lisfranc's interval is maintained. Disuse osteopenia is present,progressed from prior. Ankle soft tissue swelling is present, improved fromprior. Chronic remodeling and resorption is seen along the lateral aspectof the navicular. Diabetic type vascular calcifications are present.IMPRESSIONUncomplicated hind and midfoot external fixation and percutaneous pinfixation.Disuse osteopenia.PreliminaryReport Dictated by Resident: Sj Dumont MD., have reviewed this study and agree with the abovereport.[facility] 2019-06-10 19:18:38 Uncomplicated hind and midfoot external fixation and percutaneous pinfixation. Disuse osteopenia. Preliminary Report Dictated by Resident: Sj Webb MD., have reviewed this study and agree with the abovereport.EXAM: XR ANKLE 3+ VW RIGHT, EXAM: XR FOOT 3+ VW RIGHT, EXAM: XR TIBIA FIBULA 2 VW RIGHT HISTORY: clinic COMPARISON: Radiographs on 04/29/2019 FINDINGS: Radiographs demonstrate external and pin fixation through the tibia,fibula, tibial midfoot pseudoarthrosis, and talus. No paralleling hardwarelucency or acute hardware complication is present. Ghost hardware tracksarenoted in the distal tibia. Bone graft and/or antibiotic cement is inplace at a tibial calcaneal pseudoarthrosis and the calcaneal cuboid jointwith surrounding osseous debris. Linear periosteal reactionpersists aboutthe distal tibia and mid and distal fibula. Vascular clips are seen overthe proximal leg and knee. Flattening of the metatarsal head is noted with first MTP joint spacenarrowing, subchondral sclerosis and marginal osteophytosis. Alignmentacross Lisfranc's interval is maintained. Disuse osteopenia is present,progressed from prior. Ankle soft tissue swelling is present, improved fromprior. Chronic remodeling and resorption is seen along the lateral aspectof the navicular. Diabetic type vascular calcifications are present. [facility], Radiant Results Inft User - 06/10/2019 2:19 PM CDTEXAM: XR ANKLE 3+ VW RIGHT,EXAM: XR FOOT 3+ VW RIGHT,EXAM: XR TIBIA FIBULA 2 VW RIGHTHISTORY: clinic COMPARISON: Radiographs on 04/29/2019FINDINGS:Radiographs demonstrate external and pin fixation through the tibia,fibula, tibial midfoot pseudoarthrosis, and talus. No paralleling hardwarelucency or acute hardware complication is present. Ghost hardware tracksare noted in the distal tibia. Bone graft and/or antibiotic cement is inplace at a tibial calcaneal pseudoarthrosis and the calcaneal cuboid jointwith surrounding osseous debris. Linear periosteal reaction persists aboutthe distal tibia and mid and distalfibula. Vascular clips are seen overthe proximal leg and knee.Flattening of the metatarsal head is noted with first MTP joint spacenarrowing, subchondral sclerosis and marginal osteophytosis. Alignmentacross Lisfranc's interval is maintained. Disuse osteopenia is present,progressed from prior. Ankle soft tissue swelling is present, improved fromprior. Chronic remodeling and resorption is seen along the lateral aspectof the navicular. Diabetic type vascular calcifications are present.IMPRESSIONUncomplicated hind and midfoot external fixation and percutaneous pinfixation.Disuse osteopenia.PreliminaryReport Dictated by Resident: Sj Dumont MD., have reviewed this study and agree with the abovereport.[facility] VW [id number] 19:18:38 Uncomplicated hind and midfoot external fixation and percutaneous pinfixation. Disuse osteopenia. Preliminary Report Dictated by Resident: Sj Webb MD., have reviewed this study and agree with the abovereport.EXAM: XR ANKLE 3+ VW RIGHT, EXAM: XR FOOT 3+ VW RIGHT, EXAM: XR TIBIA FIBULA 2 VW RIGHT HISTORY: clinic COMPARISON: Radiographs on 04/29/2019 FINDINGS: Radiographs demonstrate external and pin fixation through the tibia,fibula, tibial midfoot pseudoarthrosis, and talus. No paralleling hardwarelucency or acute hardware complication is present. Ghost hardware tracksarenoted in the distal tibia. Bone graft and/or antibiotic cement is inplace at a tibial calcaneal pseudoarthrosis and the calcaneal cuboid jointwith surrounding osseous debris. Linear periosteal reactionpersists aboutthe distal tibia and mid and distal fibula. Vascular clips are seen overthe proximal leg and knee. Flattening of the metatarsal head is noted with first MTP joint spacenarrowing, subchondral sclerosis and marginal osteophytosis. Alignmentacross Lisfranc's interval is maintained. Disuse osteopenia is present,progressed from prior. Ankle soft tissue swelling is present, improved fromprior. Chronic remodeling and resorption is seen along the lateral aspectof the navicular. Diabetic type vascular calcifications are present. [facility], Radiant Results Inft User - 06/10/2019 2:19 PM CDTEXAM: XR ANKLE 3+ VW RIGHT,EXAM: XR FOOT 3+ VW RIGHT,EXAM: XR TIBIA FIBULA 2 VW RIGHTHISTORY: clinic COMPARISON: Radiographs on 04/29/2019FINDINGS:Radiographs demonstrate external and pin fixation through the tibia,fibula, tibial midfoot pseudoarthrosis, and talus. No paralleling hardwarelucency or acute hardware complication is present. Ghost hardware tracksare noted in the distal tibia. Bone graft and/or antibiotic cement is inplace at a tibial calcaneal pseudoarthrosis and the calcaneal cuboid jointwith surrounding osseous debris. Linear periosteal reaction persists aboutthe distal tibia and mid and distalfibula. Vascular clips are seen overthe proximal leg and knee.Flattening of the metatarsal head is noted with first MTP joint spacenarrowing, subchondral sclerosis and marginal osteophytosis. Alignmentacross Lisfranc's interval is maintained. Disuse osteopenia is present,progressed from prior. Ankle soft tissue swelling is present, improved fromprior. Chronic remodeling and resorption is seen along the lateral aspectof the navicular. Diabetic type vascular calcifications are present.IMPRESSIONUncomplicated hind and midfoot external fixation and percutaneous pinfixation.Disuse osteopenia.PreliminaryReport Dictated by Resident: Sj Dumont MD., have reviewed this study and agree with the abovereport.[facility] VW [id number] 19:23:30 External fixation and percutaneous pin fixation across Charcot arthropathyof the hindfoot and midfoot with extensive swelling. Preliminary Report Dictated by Resident: Tamy Echavarria MD., have reviewed this study and agree with the abovereport.EXAM: XR TIBIA FIBULA 2 VW RIGHT,EXAM: XR FOOT 3+ VW RIGHT,EXAM: XR ANKLE 3+ VW RIGHT HISTORY: surgery COMPARISON: Radiographs 03/25/2019 FINDINGS: Radiographs of the right tibia- fibula, ankle, and foot demonstrate externalhardware fixationwith pins throughout the tibia/fibula, tibiotalar joint,and talus. There is collapse of the tibiotalar and subtalar joints withadjacent bone graft material. The proximal tarsal row is fragmented anddisplaced. Periosteal reaction is present about the distal tibia andfibula. Diffuse soft tissue swellingis present, mostly around the anklejoint. Mild joint space loss, subchondral sclerosis, and marginalosteophytosisare seen at the first MTP joint. [facility], Radiant Results Inft User - 04/29/2019 2:24 PM CDTEXAM: XR TIBIA FIBULA 2 VW RIGHT,EXAM: XR FOOT 3+ VW RIGHT,EXAM: XR ANKLE 3+ VW RIGHTHISTORY: surgery COMPARISON: Radiographs 03/25/2019FINDINGS:Radiographs of the right tibia-fibula, ankle, and foot de monstrate externalhardware fixation with pins throughout the tibia/fibula, tibiotalar joint,and talus. There is collapse of the tibiotalar and subtalar joints withadjacent bone graft material. The proximal tarsal row is fragmented anddisplaced. Periosteal reaction is present about the distal tibia andfibula. Diffuse soft tissue swelling is present, mostly around the anklejoint.Mild joint space loss, subchondral sclerosis, and marginal osteophytosisare seen at the first MTP joint.IMPRESSIONExternal fixation and percutaneous pin fixation across Charcot arthropathyof the hindfoot and midfoot with extensive swelling.Preliminary Report Dictated by Resident: Tamy Machado MD., have reviewed this study and agree with the abovereport.[facility] VW [id number] 19:23:30 External fixation and percutaneous pin fixation across Charcot arthropathyof the hindfoot and midfoot with extensive swelling. Preliminary Report Dictated by Resident: Tamy Echavarria MD., have reviewed this study and agree with the abovereport.EXAM: XR TIBIA FIBULA 2 VW RIGHT,EXAM: XR FOOT 3+ VW RIGHT,EXAM: XR ANKLE 3+ VW RIGHT HISTORY: surgery COMPARISON: Radiographs 03/25/2019 FINDINGS: Radiographs of the right tibia-fibula, ankle, and foot demonstrate externalhardware fixationwith pins throughout the tibia/fibula, tibiotalar joint,and talus. There is collapse of the tibiotalar and subtalar joints withadjacent bone graft material. The proximal tarsal row is fragmented anddisp laced. Periosteal reaction is present about the distal tibia andfibula. Diffuse soft tissue swellingis present, mostly around the anklejoint. Mild joint space loss, subchondral sclerosis, and marginalosteophytosisare seen at the first MTP joint. [facility], Radiant Results Inft User - 04/29/2019 2:24 PM CDTEXAM: XR TIBIA FIBULA 2 VW RIGHT,EXAM: XR FOOT 3+ VW RIGHT,EXAM: XR ANKLE 3+ VW RIGHTHISTORY: surgery COMPARISON: Radiographs 03/25/2019FINDINGS:Radiographs of the right tibia-fibula, ankle, and foot demonstrate externalhardware fixation with pins throughout the tibia/fibula, tibiotalar joint,and talus. There is collapse of the tibiotalar and subtalar joints withadjacent bone graft material. The proxi mal tarsal row is fragmented anddisplaced. Periosteal reaction is present about the distal tibia andfibula. Diffuse soft tissue swelling is present, mostly around the anklejoint.Mild joint space loss, subchondral sclerosis, and marginal osteophytosisare seen at the first MTP joint.IMPRESSIONExternal fixation and percutaneous pin fixation across Charcot arthropathyof the hindfoot and midfoot with extensive swelling.Preliminary Report Dictated by Resident: Tamy Machado MD., have reviewed this study and agree with the abovereport. [facility]W [id number] 19:23:30 External fixation and percutaneous pin fixation across Charcot arthropathyof the hindfoot and midfoot with extensive swelling. Preliminary Report Dictated by Resident: Tamy Echavarria MD., have reviewed this study and agree with the abovereport.EXAM: XR TIBIA FIBULA 2 VW RIGHT,EXAM: XR FOOT 3+ VW RIGHT,EXAM: XR ANKLE 3+ VW RIGHT HISTORY: surgery COMPARISON: Radiographs 03/25/2019 FINDINGS: Radiographs of the right tibia-fibula, ankle, and foot demonstrate externalhardware fixationwith pins throughout the tibia/fibula, tibiotalar joint,and talus. There is collapse of the tibiotalar and subtalar joints withadjacent bone graft material. The proximal tarsal row is fragmented anddisplaced. Periosteal reaction is present about the distal tibia andfibula. Diffuse soft tissue swellingis present, mostly around the anklejoint. Mild joint space loss, subchondral sclerosis, and marginalosteophytosisare seen at the first MTP joint. [facility], Radiant Results Inft User - 04/29/2019 2:24 PM CDTEXAM: XR TIBIA FIBULA 2 VW RIGHT,EXAM: XR FOOT 3+ VW RIGHT,EXAM: XR ANKLE 3+ VW RIGHTHISTORY: surgery COMPARISON: Radiographs 03/25/2019FINDINGS:Radiographs of the right tibia-fibula, ankle, and foot demonstrate externalhardware fixation with pins throughout the tibia/fibula, tibiotalar joint,and talus. There is collapse of the tibiotalar and subtalar joints withadjacent bone graft material. The proximal tarsal row is fragmented anddisplaced. Periosteal reaction is present about the distal tibia andfibula. Diffuse soft tissue swelling is present, mostly around the anklejoint.Mild joint space loss, subchondral sclerosis, and marginal osteophytosisare seen at the first MTP joint.IMPRESSIONExternal fixation and percutaneous pin fixation across Charcot arthropathyof the hindfoot and midfoot with extensive swelling.Preliminary Report Dictated by Resident: Aquilino Tavera, Tamy Price MD., have reviewed this study and agree with the abovereport.[facility] VW [id number] 20:27:52 Interval external fixation and percutaneous pin fixation across Charcotarthropathy involving the midfoot and hindfoot with marked swelling. EXAM: XR TIBIA FIBULA 2 VW RIGHT, EXAM: XR ANKLE 3+ VW RIGHT, EXAM: XR FOOT 3+ VW RIGHT HISTORY: surgery COMPARISON: February 2019 FINDINGS: Imaging of the tibia,fibula, ankle and foot demonstrate an externalspatial frame extending across the tibia, fibula and ankle. Surgical clipsare seen over the medial knee. Chronic cortical periosteal remodeling isseen about the distal tibia and fibula. There is marked swelling over thedistal leg, ankle and foot. Scatteredarterial vascular calcifications arepresent. Moderate joint space narrowing, subchondral sclerosis and marginalosteophyte formation involve the first MTP joint. Articular collapse withcortical fragmentation are seen across the tibial talar/subtalar joints,talonavicular, calcaneocuboid joints. Bone tyshawn t is seen adjacent to thedistal fibula, medial malleolus. Percutaneous pin fixation extends throughthe medial column of the midfoot. [facility], Radiant Results Inft User - 03/25/2019 2:29 PM CSTEXAM:XR TIBIA FIBULA 2 VW RIGHT,EXAM:XR ANKLE 3+ VW RIGHT,EXAM:XR FOOT 3+ VW RIGHTHISTORY:surgery COMPARISON: February 2019FINDINGS: Imaging of the tibia, fibula, ankle and foot demonstrate an externalspatial frame extending across the tibia, fibula and ankle. Surgical clipsare seen over the medial knee. Chronic cortical periosteal remodeling isseen about the distal tibia and fibula. There is marked swelling over t hedistal leg, ankle and foot. Scattered arterial vascular calcifications arepresent. Moderate joint space narrowing, subchondral sclerosis and marginalosteophyte formation involve the first MTP joint. Articular collapse withcortical fragmentation are seen across the tibial talar/subtalar joints,talonavicular, calcaneocuboid joints. Bone graft is seen adjacent to thedistal fibula, medial malleolus. Percutaneous pin fixation extends throughthe medial column of the midfoot. IMPRESSIONInterval external fixation and percutaneous pin fixation across Charcotarthropathy involving the midfoot and hindfoot with marked swelling.[facility] VW [id number] 20:27:52 Interval external fixation and percutaneous pin fixation across Charcotarthropathy involving the midfoot and hindfoot with marked swelling. EXAM: XR TIBIA FIBULA 2 VW RIGHT, EXAM: XR ANKLE 3+ VW RIGHT, EXAM: XR FOOT 3+ VW RIGHT HISTORY: surgery COMPARISON: February 2019 FINDINGS: Imaging of the tibia,fibula, ankle and foot demonstrate an externalspatial frame extending across the tibia, fibula and ankle. Surgical clipsare seen over the medial knee. Chronic cortical periosteal remodeling isseen about the distal tibia and fibula. There is marked swelling over thedistal leg, ankle and foot. Scatteredarterial vascular calcifications arepresent. Moderate joint space narrowing, subchondral sclerosis and marginalosteophyte formation involve the first MTP joint. Articular collapse withcortical fragmentation are seen across the tibial talar/subtalar joints,talonavicular, calcaneocuboid joints. Bone tyshawn t is seen adjacent to thedistal fibula, medial malleolus. Percutaneous pin fixation extends throughthe medial column of the midfoot. [facility], Radiant Results Inft User - 03/25/2019 2:29 PM CSTEXAM:XR TIBIA FIBULA 2 VW RIGHT,EXAM:XR ANKLE 3+ VW RIGHT,EXAM:XR FOOT 3+ VW RIGHTHISTORY:surgery COMPARISON: February 2019FINDINGS: Imaging of the tibia, fibula, ankle and foot demonstrate an externalspatial frame extending across the tibia, fibula and ankle. Surgical clipsare seen over the medial knee. Chronic cortical periosteal remodeling isseen about the distal tibia and fibula. There is marked swelling over t hedistal leg, ankle and foot. Scattered arterial vascular calcifications arepresent. Moderate joint space narrowing, subchondral sclerosis and marginalosteophyte formation involve the first MTP joint. Articular collapse withcortical fragmentation are seen across the tibial talar/subtalar joints,talonavicular, calcaneocuboid joints. Bone graft is seen adjacent to thedistal fibula, medial malleolus. Percutaneous pin fixation extends throughthe medial column of the midfoot. IMPRESSIONInterval external fixation and percutaneous pin fixation across Charcotarthropathy involving the midfoot and hindfoot with marked swelling.[facility] T[facility]IBULA 2 VW [id number] 20:27:52 Interval external fixation and percutaneous pin fixation across Charcotarthropathy involving the midfoot and hindfoot with marked swelling. EXAM: XR TIBIA FIBULA 2 VW RIGHT, EXAM: XR ANKLE 3+ VW RIGHT, EXAM: XR FOOT 3+ VW RIGHT HISTORY: surgery COMPARISON: February 2019 FINDINGS: Imaging of the tibia,fibula, ankle and foot demonstrate an externalspatial frame extending across the tibia, fibula and ankle. Surgical clipsare seen over the medial knee. Chronic cortical periosteal remodeling isseen about the distal tibia and fibula. There is marked swelling over thedistal leg, ankle and foot. Scatteredarterial vascular calcifications arepresent. Moderate joint space narrowing, subchondral sclerosis and marginalosteophyte formation involve the first MTP joint. Articular collapse withcortical fragmentation are seen across the tibial talar/subtalar joints,talonavicular, calcaneocuboid joints. Bone tyshawn t is seen adjacent to thedistal fibula, medial malleolus. Percutaneous pin fixation extends throughthe medial column of the midfoot. [facility], Radiant Results Inft User - 03/25/2019 2:29 PM CSTEXAM:XR TIBIA FIBULA 2 VW RIGHT,EXAM:XR ANKLE 3+ VW RIGHT,EXAM:XR FOOT 3+ VW RIGHTHISTORY:surgery COMPARISON: February 2019FINDINGS: Imaging of the tibia, fibula, ankle and foot demonstrate an externalspatial frame extending across the tibia, fibula and ankle. Surgical clipsare seen over the medial knee. Chronic cortical periosteal remodeling isseen about the distal tibia and fibula. There is marked swelling over t hedistal leg, ankle and foot. Scattered arterial vascular calcifications arepresent. Moderate joint space narrowing, subchondral sclerosis and marginalosteophyte formation involve the first MTP joint. Articular collapse withcortical fragmentation are seen across the tibial talar/subtalar joints,talonavicular, calcaneocuboid joints. Bone graft is seen adjacent to thedistal fibula, medial malleolus. Percutaneous pin fixation extends throughthe medial column of the midfoot. IMPRESSIONInterval external fixation and percutaneous pin fixation across Charcotarthropathy involving the midfoot and hindfoot with marked swelling.[facility] WITH [id number] 16:17:00 Test Item Value Reference Range Interpretation Comments WBC (test code = See_Comment H [Automated 4203-2) message] The system which generated this result transmit ender reference range : 4.20 - 10.70 10*3/?L. The reference range was not used to interpret this result as normal/abnormal . RBC (test code = See_Comment L [Automated 629-8) message] The system which generated this result transmit ender reference range : 4.26 - 5.52 10*6/?L. The reference range was not used to interpret this result as normal/abnormal . HGB (test code = 11.4 g/dL 12.2-16.4 L 718-7) HCT (test code = 35.0 % 38.4-49.3 L 4544-3) MCV (test code = 84.1 fL 81.7-95.6 787-2) MCH (test code = 27.4 pg 26.1-32.7 785-6) MCHC (test code = 32.6 g/dL 31.2-35 786-4) RDW-SD (test code = 43.5 fL 38.5-51.6 81558-7) RDW-CV (test code = 14.2 % 12.1-15.4 788-0) PLT (test code = See_Comment H [Automated 777-3) message] The system which generated this result transmit ender reference range : 150 - 328 10*3/ ?L. The reference range was not u sed to interpret th is result as normal/abnormal . MPV (test code = 11.0 fL 9.8-13 20246-5) NRBC/100 WBC (test See_Comment [Automat ed code = 2029917780) message] The system which generated this result transmit ender reference range : 0.0 - 10.0 /100 WBCs. The reference range was not used to interpret this result as normal/abnormal . NRBC x10^3 (test code <0.01 See_Comment [Auto mated = 2713656038) message] The system which generated this result transmit ender reference range : 10*3/?L. The reference range was not used to interpret this result as normal/abnormal . GRAN MAT (NEUT) % 77.7 % (test code = 770-8) IMM GRAN % (test code 0.40 % = 7739306908) LYMPH % (test code = 11.2 % 736-9) MONO % (test code = 10.4 % 5905-5) EOS % (test code = 0.2 % 713-8) BASO % (test code = 0.1 % 706-2) GRAN MAT x10^3(ANC) 12.95 10*3/uL 1.99-6.95 H (test code = 1908546508) IMM GRAN x10^3 (test 0.07 10*3/uL 0-0.06 H code = 2136208353) LYMPH x10^3 (test code 1.87 10*3/uL 1.09-3.23 = 731-0) MONO x10^3 (test code 1.74 10*3/uL 0.36-1.02 H = 742-7) EOS x10^3 (test code = 0.03 10*3/uL 0.06-0.53 L 711-2) BASO x10^3 (test code <0.03 0.01-0.09 = 704-7) Lab Interpretation Abnormal (test code = 14804-2) [facility] GLUCOSE (AUTOMATED)2019-03-13 13:56:00 Test Item Value Reference Range Interpretation Comments POCT GLU (test code = 2979942324) 282 mg/dL 70-110 H Lab Interpretation (test code = Abnormal 32028-1) [facility] GLUCOSE (AUTOMATED)2019-03-13 09:44:00 Test Item Value Reference Range Interpretation Comments POCT GLU (test code = 2268120131) 351 mg/dL 70-110 H Lab Interpretation (test code = Abnormal 03239-6) [facility] GLUCOSE (AUTOMATED)2019-03-13 02:13:00 Test Item Value Reference Range Interpretation Comments POCT GLU (test code = 7331259656) 386 mg/dL 70-110 H Lab Interpretation (test code = Abnormal 48176-1) [facility] GLUCOSE (AUTOMATED)2019-03-12 22:41:00 Test Item Value Reference Range Interpretation Comments POCT GLU (test code = 7186116600) 164 mg/dL 70-110 H Lab Interpretation (test code = Abnormal 49975-8) [facility]PORT[facility]2019-03-12 22:37:27 These images do not require a Radiology diagnostic report.[facility] GLUCOSE (AUTOMATED)2019-03-12 18:41:00 Test Item Value Reference Range Interpretation Comments POCT GLU (test code = 5935704616) 131 mg/dL 70-110 H Lab Interpretation (test code = Abnormal 72676-7) [facility] CenterXR [facility] VW [id number] 16:34:58 Charcot arthropathy mainly involving the talus, calcaneus and navicularbone with unchanged talar collapse. Foci of soft tissue gas along the posterior aspect of the distal legcorresponds to the fluid collection with foci of gas seen on the CT from03/01/2019. Diffuse soft tissue swelling. No radiographic findings to suggest acute osteomyelitis.EXAM: XR FOOT 3+ VW RIGHT HISTORY: 63 years-old Male clinic COMPARISON: 08/27/2018, 03/01/2019. FINDINGS: Again identified are the midfoot/hindfoot Charcot arthropathy changes withchronic fragmentation and destruction of the talus, navicular and to lessextent the calcaneus. Collapse of the talus is unchanged. There isincreased bone resorption at the calcaneocuboid joint compared to the studyfrom 08/27/2018. Multiple osseous fragments around the tibiotalar andtalonavicular joints are stable. Foci of gas/air are noted along theposterior aspect of the distal leg and corresponds to the foci of air withfluid collection seen in the CT from 03/01/2019. No acute osseous erosionsor acute periosteal reaction are identified. Chronic periosteal new boneformation at the distal tib-fib is likely due to remote/healedosteomyelitis. Diffuse soft tissue swelling of the leg isincreasedcompared to 08/27/2018, but overall stable compared to the CT from03/01/2019. [facility], Radiant Results Inft User - 03/11/2019 10:36 AM CSTEXAM: XR FOOT 3+ VW RIGHTHISTORY: 63 years-old Male clinic C OMPARISON: 08/27/2018, 03/01/2019.FINDINGS: Again identified are the midfoot/hindfoot Charcot arthropathy changes withchronic fragmentation and destruction of the talus, navicular and to lessextent the calcaneus. Collapse of the talus is unchanged. There isincreased bone resorption at the calcaneocuboid joint compared to the studyfrom 08/27/2018. Multiple osseous fragments around the tibiotalar andtalonavicular joints are stable. Foci of gas/air are noted along theposterior aspect of the distal leg andcorresponds to the foci of air withfluid collection seen in the CT from 03/01/2019. No acute osseous erosionsor acute periosteal reaction are identified. Chronic periosteal new boneformation at the distal tib-fib is likely due to remote/healedosteomyelitis. Diffuse soft tissue swelling of the leg is increasedcompared to 08/27/2018, but overall stable compared to the CT from03/01/2019.IMPRESSIONCharcot arthropathy mainly involving the talus, calcaneus and navicularbone with unchanged talar collapse.Fociof soft tissue gas along the posterior aspect of the distal legcorresponds to the fluid collection with foci of gas seen on the CT from03/01/2019.Diffuse soft tissue swelling.No radiographic findings tosuggest acute osteomyelitis.[facility] GLUCOSE (AUTOMATED)2019-03-06 20:10:00 Test Item Value Reference Range Interpretation Comments POCT GLU (test code = 7928993562) 254 mg/dL 70-110 H Lab Interpretation (test code = Abnormal 37465-2) [facility] GLUCOSE (AUTOMATED)2019-03-06 18:42:00 Test Item Value Reference Range Interpretation Comments POCT GLU (test code = 6674356855) 204 mg/dL 70-110 H Lab Interpretation (test code = Abnormal 35029-0) [facility] GLUCOSE (AUTOMATED)2019-03-06 18:42:00 Test Item Value Reference Range Interpretation Comments POCT GLU (test code = 2396526227) 195 mg/dL 70-110 H Lab Interpretation (test code = Abnormal 32370-9) [facility] GLUCOSE (AUTOMATED)2019-03-05 22:28:00 Test Item Value Reference Range Interpretation Comments POCT GLU (test code = 308 mg/dL 70-110 H 0906775806) LUIS ANGEL (test code = LUIS ANGEL) Notified Provider Lab Interpretation (test Abnormal code = 51376-7) [facility] GLUCOSE (AUTOMATED)2019-03-05 21:44:00 Test Item Value Reference Range Interpretation Comments POCT GLU (test code = 201 mg/dL 70-110 H 4820442877) LUIS ANGEL (test code = LUIS ANGEL) Notified Provider Lab Interpretation (test Abnormal code = 60630-3) [facility] GLUCOSE (AUTOMATED)2019-03-05 21:44:00 Test Item Value Reference Range Interpretation Comments POCT GLU (test code = 3489018647) 193 mg/dL 70-110 H Lab Interpretation (test code = Abnormal 67639-0) [facility] GLUCOSE (AUTOMATED)2019-03-05 21:43:00 Test Item Value Reference Range Interpretation Comments POCT GLU (test code = 8780252313) 309 mg/dL 70-110 H Lab Interpretation (test code = Abnormal 09591-2) [facility]PO[facility]2019-03-05 21:43:00 Test Item Value Reference Range Interpretation Comments POCT GLU (test code = 9164314792) 194 mg/dL 70-110 H Lab Interpretation (test code = Abnormal 42742-1) [facility] WITH [id number] 12:14:00 Test Item Value Reference Range Interpretation Comments WBC (test code = See_Comment H [Automated 6690-2) message] The sy stem which generated this result transmitted reference range : 4.20 - 10.70 10*3/?L. The reference range was not used to interpret this result as normal/abnormal . RBC (test code = See_Comment [Automated 789-8) message] The sy stem which generated this result transmitted reference range : 4.26 - 5.52 10*6/?L. The reference range was not used to interpret this result as normal/abnormal . HGB (test code = 12.1 g/dL 12.2-16.4 L 718-7) HCT (test code = 38.2 % 38.4-49.3 L 4544-3) MCV (test code = 85.8 fL 81.7-95.6 787-2) MCH (test code = 27.2 pg 26.1-32.7 785-6) MCHC (test code = 31.7 g/dL 31.2-35 786-4) RDW-SD (test code = 44.6 fL 38.5-51.6 28452-8) RDW-CV (test code = 14.2 % 12.1-15.4 788-0) PLT (test code = See_Comment H [Automated 777-3) message] The sy stem which generated this result transmitted reference range : 150 - 328 10*3/ ?L. The reference r sherice was not used to interpret this result as normal/abnormal . MPV (test code = 11.4 fL 9.8-13 65190-8) NRBC/100 WBC (test See_Comment [Automat ed code = 5963384078) message] The system which generated this result transmitted reference range : 0.0 - 10.0 /100 WBCs. The refer ence range was not u sed to interpret th is result as normal/abnormal . NRBC x10^3 (test code <0.01 See_Comment [Auto mated = 3506866059) message] The s [employer] which generated this result transmitted reference range : 10*3/?L. The reference range was not used to interpret this result as normal/abnormal . GRAN MAT (NEUT) % 61.5 % (test code = 770-8) IMM GRAN % (test code 0.40 % = 2249558885) LYMPH % (test code = 18.3 % 736-9) MONO % (test code = 14.7 % 5905-5) EOS % (test code = 4.5 % 713-8) BASO % (test code = 0.6 % 706-2) GRAN MAT x10^3(ANC) 7.31 10*3/uL 1.99-6.95 H (test code = 9583088972) IMM GRAN x10^3 (test 0.05 10*3/uL 0-0.06 code = 9233152354) LYMPH x10^3 (test code 2.18 10*3/uL 1.09-3.23 = 731-0) MONO x10^3 (test code 1.75 10*3/uL 0.36-1.02 H = 742-7) EOS x10^3 (test code = 0.54 10*3/uL 0.06-0.53 H 711-2) BASO x10^3 (test code 0.07 10*3/uL 0.01-0.09 = 704-7) Lab Interpretation Abnormal (test code = 59848-9) [facility] CenterVan[facility] Trough Level - Draw immediately prior to the NEXT dose, but, no more than 60 minutes before the NEXT dose. 2019-03-05 12:10:00 Test Item Value Reference Range Interpretation Comments VANCO TROUGH (test code 17.3 ug/mL 10-20 = 5281130329) LUIS ANGEL (test code = LUIS ANGEL) Toxic Range: ?>20 ug/mL 15-20 ug/mL is recommended for severe infection or when Vancomycin HILLARY is greater than or equal to 2. Lab Interpretation (test Normal code = 57595-2) [facility] CenterBASI METABOLIC PANEL (NA, K, CL, CO2, GLUCOSE, BUN, CREATININE, CA)2019-03-05 11:51:00 Test Item Value Reference Range Interpretation Comments NA (test code = 137 mmol/L 135-145 4229987967) K (test code = 3.6 mmol/L 3.5-5 5917278299) CL (test code = 101 mmol/L 98-108 8287739427) CO2 TOTAL (test code = 27 mmol/L 23-31 3418261604) AGAP (test code = 2-16 6863754905) BUN (test code = 13 mg/dL 7-23 6230025062) GLUCOSE (test code = 140 mg/dL 70-110 H 4781627738) CREATININE (test code = 0.92 mg/dL 0.6-1.25 5857724954) CALCIUM (test code = 9.2 mg/dL 8.6-10.6 4027839743) eGFR Calculation mL/min/1.73m2 (Non-) (test code = 3177682979) eGFR Calculation mL/min/1.73m2 () (test code = 3754829520) LUIS ANGEL (test code = LUIS ANGEL) Association of Glomerular Filtration Rate (GFR) and Staging of Kidney Disease* + --+ --+ ------+| GFR (mL/min/1.73 m2) ?| With Kidney Damage ?| ?Without Kidney Damage+ --------+ --------+ +| ?>90 ?| ?Stage one ?| ? Normal ?+ ---+ ---+ -------+| ?60-89 ?| ?Stage two ?| ? Decreased GFR ? + --+ --+ ------+| ?30-59 ?| ?Stage three ?| ? Stage three ? + --+ --+ ------+| ?15-29 ?| ?Stage four ? | ? Stage four ?+ ---+ ---+ -------+| ?<15 (or dialysis) ? ?| ?Stage five ? | ? Stage five ?+ ---+ ---+ -------+ *Each stage assumes the associated GFR level has been in effect for at least three months. ?Stages 1 to 5, with or without kidney disease, indicate chronic kidney disease. Notes: Determination of stages one and two (with eGFR >59mL/min/1.73 m2) requires estimation of kidney damage for at least three months as defined by structural or functional abnormalities of the kidney, manifested by either:Pathological abnormalities or Markers of kidney damage (including abnormalities in the composition of the blood or urine or abnormalities in imaging tests). Lab Interpretation Abnormal (test code = 54739-2) [facility] CenterPROTHROMBIN TIME / [id number] 11:33:00 Test Item Value Reference Range Interpretation Comments PROTIME PATIENT (test See_Comment H [Auto mated message] code = 5964-2) The system [employer] generated this result transmitted ref erence range: 10.1 - 1 2.6 Seconds. The reference range was not used to int erpret this result as normal/abnormal . INR (test code = 6301-6) Nor mal INR <1.1; Warfarin Therap eutic range 2.0 to 3. 0 or 2.5 to 3.5, dep ending upon the indica tions. Lab Interpretation (test Abnormal code = 37267-2) [facility] GLUCOSE (AUTOMATED)2019-03-04 20:51:00 Test Item Value Reference Range Interpretation Comments POCT GLU (test code = 1358161258) 141 mg/dL 70-110 H Lab Interpretation (test code = Abnormal 91042-7) [facility] GLUCOSE (AUTOMATED)2019-03-04 14:19:00 Test Item Value Reference Range Interpretation Comments POCT GLU (test code = 7114036220) 250 mg/dL 70-110 H Lab Interpretation (test code = Abnormal 18929-6) [facility] GLUCOSE (AUTOMATED)2019-03-04 14:19:00 Test Item Value Reference Range Interpretation Comments POCT GLU (test code = 6942683138) 152 mg/dL 70-110 H Lab Interpretation (test code = Abnormal 97847-7) [facility] GLUCOSE (AUTOMATED)2019-03-04 14:19:00 Test Item Value Reference Range Interpretation Comments POCT GLU (test code = 9920007866) 126 mg/dL 70-110 H Lab Interpretation (test code = Abnormal 75049-0) [facility] GLUCOSE (AUTOMATED)2019-03-04 14:18:00 Test Item Value Reference Range Interpretation Comments POCT GLU (test code = 0432684047) 247 mg/dL 70-110 H Lab Interpretation (test code = Abnormal 69124-8) [facility] CenterPOFL GLU[facility]SE (AUT[facility]ATED)2019-03-04 14:17:00 Test Item Value Reference Range Interpretation Comments POCT GLU (test code = 6327189851) 168 mg/dL 70-110 H Lab Interpretation (test code = Abnormal 21506-2) [facility] METABOLIC PANEL (NA, K, CL, CO2, GLUCOSE, BUN, CREATININE, CA)2019-03-04 11:46:00 Test Item Value Reference Range Interpretation Comments NA (test code = 137 mmol/L 135-145 2794291462) K (test code = 3.8 mmol/L 3.5-5 1673805011) CL (test code = 101 mmol/L 98-108 3952309862) CO2 TOTAL (test code = 28 mmol/L 23-31 2774931566) AGAP (test code = 2-16 6942865527) BUN (test code = 14 mg/dL 7-23 0873773985) GLUCOSE (test code = 175 mg/dL 70-110 H 6646825017) CREATININE (test code = 0.96 mg/dL 0.6-1.25 9298743665) CALCIUM (test code = 9.2 mg/dL 8.6-10.6 8891042618) eGFR Calculation mL/min/1.73m2 (Non-) (test code = 0847546020) eGFR Calculation mL/min/1.73m2 () (test code = 9159562035) LUIS ANGEL (test code = LUIS ANGEL) Association of Glomerular Filtration Rate (GFR) and Staging of Kidney Disease* + --+ --+ ------+| GFR (mL/min/1.73 m2) ?| With Kidney Damage ?| ?Without Kidney Damage+ --------+ --------+ +| ?>90 ?| ?Stage one ?| ? Normal ?+ ---+ ---+ -------+| ?60-89 ?| ?Stage two ?| ? Decreased GFR ? + --+ --+ ------+| ?30-59 ?| ?Stage three ?| ? Stage three ? + --+ --+ ------+| ?15-29 ?| ?Stage four ? | ? Stage four ?+ ---+ ---+ -------+| ?<15 (or dialysis) ? ?| ?Stage five ? | ? Stage five ?+ ---+ ---+ -------+ *Each stage assumes the associated GFR level has been in effect for at least three months. ?Stages 1 to 5, with or without kidney disease, indicate chronic kidney disease. Notes: Determination of stages one and two (with eGFR >59mL/min/1.73 m2) requires estimation of kidney damage for at least three months as defined by structural or functional abnormalities of the kidney, manifested by either:Pathological abnormalities or Markers of kidney damage (including abnormalities in the composition of the blood or urine or abnormalities in imaging tests). Lab Interpretation Abnormal (test code = 77075-0) [facility] CenterMAGNESIUM2020-01-20 11:46:00 Test Item Value Reference Range Interpretation Comments MAGNESIUM (test code = 8900848877) 1.9 mg/dL 1.7-2.4 Lab Interpretation (test code = Normal 70887-4) [facility] CenterCT ANKLE RIGHT W [id number] 20:57:38 Advanced midfoot/hindfoot Charcot arthropathy with changes suggestive ofchronic/remote osteomyelitis. No CT findings to suggest acuteosteomyelitis. Fluid collection along the posterior aspect of the distal leg withsuspected connection to the tibiotalar joint with appearance concerning azar abscess. F luid collection along the anterolateral aspect of the tibiotalar joint,indeterminate, and may be related to the recent attempted joint aspiration.Exam: CT TIBIA FIBULA RIGHT W CONTRAST, CT FOOT RIGHT WCONTRAST, CT ANKLERIGHT W CONTRAST HISTORY: Osteomyelitis suspected, tib/fib, initial exam COMPARISON: 02/27/2019, 08/09/2018 TECHNIQUE: Axial CT imaging through the right tib-fib, ankle, and foot wasperformed with IV contrast. Coronal and sagittal and 3-D reformats wereobtained and reviewed. FINDINGS: Chronic periosteal reaction is present along the distal tibia and fibula,likely sequela of prior/chronic osteomyelitis. Changes of midfoot/hindfootCharcot arthropathy are identified with increased collapse of the talus,subluxation of the tibiotalar joint, and superimposed intra-articular talarfracture.Chronic destruction and fragmentation of the remaining tarsalbones is noted, progressed compared to the MRI from 08/09/2018. No acutebony erosions or aggressive/active periosteal reaction are identifiedtosuggest acute osteomyelitis. There is a poorly defined fluid collection with foci of gas noted along theposterior aspect of the distal third of the leg measuring about 2.6 x 1.7 x8.6 cm (TS X AP X CC) with possible connection to the posterior aspect ofthe tibiotalar joint. It shows faint ill-definedmarginal enhancement andpossible internal septation, concerning for an abscess. Another poorly defined fluid collection with foci of gas is noted along theanterolateral aspect of the distal tib-fib just above the tibiotalar jointmeasuring about 2.5 x 4 x 3 cm. However, this collection is located alongt he plane of the recently attempt joint aspiration and is possibly relatedto the injected saline in an attempt to obtain joint fluid. Muscular fatty atrophy involves the muscle of the leg. The distal Achilles tendon is thickened. Congestion of the foot at leg draining veins is noted. [facility], Radiant Results Inft User - 03/03/2019 2:58 PM CSTExam: CT TIBIA FIBULA RIGHT W CONTRAST, CT FOOT RIGHT W CONTRAST, CT ANKLERIGHT W CONTRASTHISTORY: Osteomyelitis suspected, tib/fib, initial exam COMPARISON: 02/27/2019, 08/09/2018TECHNIQUE: Axial CT imaging through the right tib-fib, ankle, and foot wasperformed with IV contrast. Coronal and sagittal and 3-D reformats wereobtained and reviewed.FINDINGS:Chronic periosteal reaction is present along the distal tibia and fibula,likely sequela of prior/chronic osteomyelitis. Changes of midfoot/hindfootCharcot arthropathy are identified with increased collapse of the talus,subluxation of the tibiotalar joint, and superimposed intra-articular talarfracture. Chronic destruction and fragmentation of the remaining tarsalbones is noted, progressed compared to the MRI from08/09/2018. No acutebony erosions or aggressive/active periosteal reaction are identified tosuggest acute osteomyelitis.There is a poorly defined fluid collection with foci of gas noted along theposterior aspect of the distal third of the leg measuring about 2.6 x 1.7 x8.6 cm (TS X AP X CC) with possible connection to the posterior aspect ofthe tibiotalar joint. It shows faint ill-defined marginal enhancement andpossible internal septation, concerning for an abscess.Another poorly defined fluid collection with foci of gas is noted along theanterolateral aspect of the distal tib-fib just above the tibiotalar jointmeasuring about 2.5 x 4 x 3 cm. However, this collection is located alongthe plane of the recently attempt joint aspiration and is possibly relatedto the injected saline in an attempt to obtain joint fluid.Muscular fatty atrophy involves the muscle of the leg.The distal Achilles tendon isthickened.Congestion of the foot at leg draining veins is noted.IMPRESSIONAdvanced midfoot/hindfoot Charcot arthropathy with changes suggestive ofchronic/remote osteomyelitis. No CT findings to suggest acuteosteomyelitis.Fluid collection along the posterior aspect of the distal leg withsuspected connection to the tibiotalar joint with appearance concerning azar abscess.Fluid collection along the anterolateral aspect of the tibiotalar joint,indeterminate, and may be related to the recent attempted joint aspiration.[facility] CenterCT [facility] W [id number] 20:57:38 Advanced midfoot/hindfoot Charcot arthropathy with changes suggestive ofchronic/remote osteomyelitis. No CT findings to suggest acuteosteomyelitis. Fluid collection along the posterior aspect of the distal leg withsuspected connection to the tibiotalar joint with appearance concerning azar abscess. F luid collection along the anterolateral aspect of the tibiotalar joint,indeterminate, and may be related to the recent attempted joint aspiration.Exam: CT TIBIA FIBULA RIGHT W CONTRAST, CT FOOT RIGHT WCONTRAST, CT ANKLERIGHT W CONTRAST HISTORY: Osteomyelitis suspected, tib/fib, initial exam COMPARISON: 02/27/2019, 08/09/2018 TECHNIQUE: Axial CT imaging through the right tib-fib, ankle, and foot wasperformed with IV contrast. Coronal and sagittal and 3-D reformats wereobtained and reviewed. FINDINGS: Chronic periosteal reaction is present along the distal tibia and fibula,likely sequela of prior/chronic osteomyelitis. Changes of midfoot/hindfootCharcot arthropathy are identified with increased collapse of the talus,subluxation of the tibiotalar joint, and superimposed intra-articular talarfracture.Chronic destruction and fragmentation of the remaining tarsalbones is noted, progressed compared to the MRI from 08/09/2018. No acutebony erosions or aggressive/active periosteal reaction are identifiedtosuggest acute osteomyelitis. There is a poorly defined fluid collection with foci of gas noted along theposterior aspect of the distal third of the leg measuring about 2.6 x 1.7 x8.6 cm (TS X AP X CC) with possible connection to the posterior aspect ofthe tibiotalar joint. It shows faint ill-definedmarginal enhancement andpossible internal septation, concerning for an abscess. Another poorly defined fluid collection with foci of gas is noted along theanterolateral aspect of the distal tib-fib just above the tibiotalar jointmeasuring about 2.5 x 4 x 3 cm. However, this collection is located alongt he plane of the recently attempt joint aspiration and is possibly relatedto the injected saline in an attempt to obtain joint fluid. Muscular fatty atrophy involves the muscle of the leg. The distal Achilles tendon is thickened. Congestion of the foot at leg draining veins is noted. [facility], Radiant Results Inft User - 03/03/2019 2:58 PM CSTExam: CT TIBIA FIBULA RIGHT W CONTRAST, CT FOOT RIGHT W CONTRAST, CT ANKLERIGHT W CONTRASTHISTORY: Osteomyelitis suspected, tib/fib, initial exam COMPARISON: 02/27/2019, 08/09/2018TECHNIQUE: Axial CT imaging through the right tib-fib, ankle, and foot wasperformed with IV contrast. Coronal and sagittal and 3-D reformats wereobtained and reviewed.FINDINGS:Chronic periosteal reaction is present along the distal tibia and fibula,likely sequela of prior/chronic osteomyelitis. Changes of midfoot/hindfootCharcot arthropathy are identified with increased collapse of the talus,subluxation of the tibiotalar joint, and superimposed intra-articular talarfracture. Chronic destruction and fragmentation of the remaining tarsalbones is noted, progressed compared to the MRI from08/09/2018. No acutebony erosions or aggressive/active periosteal reaction are identified tosuggest acute osteomyelitis.There is a poorly defined fluid collection with foci of gas noted along theposterior aspect of the distal third of the leg measuring about 2.6 x 1.7 x8.6 cm (TS X AP X CC) with possible connection to the posterior aspect ofthe tibiotalar joint. It shows faint ill-defined marginal enhancement andpossible internal septation, concerning for an abscess.Another poorly defined fluid collection with foci of gas is noted along theanterolateral aspect of the distal tib-fib just above the tibiotalar jointmeasuring about 2.5 x 4 x 3 cm. However, this collection is located alongthe plane of the recently attempt joint aspiration and is possibly relatedto the injected saline in an attempt to obtain joint fluid.Muscular fatty atrophy involves the muscle of the leg.The distal Achilles tendon isthickened.Congestion of the foot at leg draining veins is noted.IMPRESSIONAdvanced midfoot/hindfoot Charcot arthropathy with changes suggestive ofchronic/remote osteomyelitis. No CT findings to suggest acuteosteomyelitis.Fluid collection along the posterior aspect of the distal leg withsuspected connection to the tibiotalar joint with appearance concerning azar abscess.Fluid collection along the anterolateral aspect of the tibiotalar joint,indeterminate, and may be related to the recent attempted joint aspiration.[facility] CenterCT [facility] 2019-03-03 20:57:38 Advanced midfoot/hindfoot Charcot arthropathy with changes suggestive ofchronic/remote osteomyelitis. No CT findings to suggest acuteosteomyelitis. Fluid collection along the posterior aspect of the distal leg withsuspected connection to the tibiotalar joint with appearance concerning azar abscess. Fluid collection along the anterolateral aspect of the tibiotalar joint,indeterminate, and may be related to the recent attempted joint aspiration.Exam: CT TIBIA FIBULA RIGHT W CONTRAST, CT FOOT RIGHT WCONTRAST, CT ANKLERIGHT W CONTRAST HISTORY: Osteomyelitis suspected, tib/fib, initial exam COMPARISON: 02/27/2019, 08/09/2018 TECHNIQUE: Axial CT imaging through the right tib-fib, ankle, and foot wasperformed with IV contrast. Coronal and sagittal and 3-D reformats wereobtained and reviewed. FINDINGS: Chronic periosteal reaction is present along the distal tibia and fibula,likely sequela of prior/chronic osteomyelitis. Changes of midfoot/hindfootCharcot arthropathy are identified with increased collapse of the talus,subluxation of the tibiotalar joint, and superimposed intra-articular talarfracture.Chronic destruction and fragmentation of the remaining tarsalbones is noted, progressed compared to the MRI from 08/09/2018. No acutebony erosions or aggressive/active periosteal reaction are identifiedtosuggest acute osteomyelitis. There is a poorly defined fluid collection with foci of gas noted along theposterior aspect of the distal third of the leg measuring about 2.6 x 1.7 x8.6 cm (TS X AP X CC) with possible connection to the posterior aspect ofthe tibiotalar joint. It shows faint ill-definedmarginal enhancement andpossible internal septation, concerning for an abscess. Another poorly defined fluid collection with foci of gas is noted along theanterolateral aspect of the distal tib-fib just above the tibiotalar jointmeasuring about 2.5 x 4 x 3 cm. However, this collection is located alongt he plane of the recently attempt joint aspiration and is possibly relatedto the injected saline in an attempt to obtain joint fluid. Muscular fatty atrophy involves the muscle of the leg. The distal Achilles tendon is thickened. Congestion of the foot at leg draining veins is noted. [facility], Radiant Results Inft User - 03/03/2019 2:58 PM CSTExam: CT TIBIA FIBULA RIGHT W CONTRAST, CT FOOT RIGHT W CONTRAST, CT ANKLERIGHT W CONTRASTHISTORY: Osteomyelitis suspected, tib/fib, initial exam COMPARISON: 02/27/2019, 08/09/2018TECHNIQUE: Axial CT imaging through the right tib-fib, ankle, and foot wasperformed with IV contrast. Coronal and sagittal and 3-D reformats wereobtained and reviewed.FINDINGS:Chronic periosteal reaction is present along the distal tibia and fibula,likely sequela of prior/chronic osteomyelitis. Changes of midfoot/hindfootCharcot arthropathy are identified with increased collapse of the talus,subluxation of the tibiotalar joint, and superimposed intra-articular talarfracture. Chronic destruction and fragmentation of the remaining tarsalbones is noted, progressed compared to the MRI from08/09/2018. No acutebony erosions or aggressive/active periosteal reaction are identified tosuggest acute osteomyelitis.There is a poorly defined fluid collection with foci of gas noted along theposterior aspect of the distal third of the leg measuring about 2.6 x 1.7 x8.6 cm (TS X AP X CC) with possible connection to the posterior aspect ofthe tibiotalar joint. It shows faint ill-defined marginal enhancement andpossible internal septation, concerning for an abscess.Another poorly defined fluid collection with foci of gas is noted along theanterolateral aspect of the distal tib-fib just above the tibiotalar jointmeasuring about 2.5 x 4 x 3 cm. However, this collection is located alongthe plane of the recently attempt joint aspiration and is possibly relatedto the injected saline in an attempt to obtain joint fluid.Muscular fatty atrophy involves the muscle of the leg.The distal Achilles tendon isthickened.Congestion of the foot at leg draining veins is noted.IMPRESSIONAdvanced midfoot/hindfoot Charcot arthropathy with changes suggestive ofchronic/remote osteomyelitis. No CT findings to suggest acuteosteomyelitis.Fluid collection along the posterior aspect of the distal leg withsuspected connection to the tibiotalar joint with appearance concerning azar abscess.Fluid collection along the anterolateral aspect of the tibiotalar joint,indeterminate, and may be related to the recent attempted joint aspiration.[facility] CenterPOFL GLUCOSE (AUTOMATED)2019-03-03 14:00:00 Test Item Value Reference Range Interpretation Comments POCT GLU (test code = 8503650160) 175 mg/dL 70-110 H Lab Interpretation (test code = Abnormal 89492-3) [facility] CenterVancomycin Trough Level - Draw immediately prior to the 4TH dose, but, no more than 60 minutes before the 4TH dose. 2019-03-03 12:09:00 Test Item Value Reference Range Interpretation Comments VANCO TROUGH (test code 9.8 ug/mL 10-20 L = 8729624092) LUIS ANGEL (test code = LUIS ANGEL) Toxic Range: ?>20 ug/mL 15-20 ug/mL is recommended for severe infection or when Vancomycin HILLARY is greater than or equal to 2. Lab Interpretation (test Abnormal code = 85775-8) [facility] CenterBASIC METABOLIC PANEL (NA, K, CL, CO2, GLUCOSE, BUN, CREATININE, CA)2019-03-03 11:15:00 Test Item Value Reference Range Interpretation Comments NA (test code = 137 mmol/L 135-145 6274818809) K (test code = 3.8 mmol/L 3.5-5 5858161341) CL (test code = 102 mmol/L 98-108 0496892547) CO2 TOTAL (test code = 27 mmol/L 23-31 8839383988) AGAP (test code = 2-16 6970102428) BUN (test code = 16 mg/dL 7-23 2381683214) GLUCOSE (test code = 239 mg/dL 70-110 H 7877345477) CREATININE (test code = 0.96 mg/dL 0.6-1.25 4791112871) CALCIUM (test code = 9.1 mg/dL 8.6-10.6 1334025066) eGFR Calculation mL/min/1.73m2 (Non-) (test code = 0856274179) eGFR Calculation mL/min/1.73m2 () (test code = 5119805803) LUIS ANGEL (test code = LUIS ANGEL) Association of Glomerular Filtration Rate (GFR) and Staging of Kidney Disease* + --+ --+ ------+| GFR (mL/min/1.73 m2) ?| With Kidney Damage ?| ?Without Kidney Damage+ --------+ --------+ +| ?>90 ?| ?Stage one ?| ? Normal ?+ ---+ ---+ -------+| ?60-89 ?| ?Stage two ?| ? Decreased GFR ? + --+ --+ ------+| ?30-59 ?| ?Stage three ?| ? Stage three ? + --+ --+ ------+| ?15-29 ?| ?Stage four ? | ? Stage four ?+ ---+ ---+ -------+| ?<15 (or dialysis) ? ?| ?Stage five ? | ? Stage five ?+ ---+ ---+ -------+ *Each stage assumes the associated GFR level has been in effect for at least three months. ?Stages 1 to 5, with or without kidney disease, indicate chronic kidney disease. Notes: Determination of stages one and two (with eGFR >59mL/min/1.73 m2) requires estimation of kidney damage for at least three months as defined by structural or functional abnormalities of the kidney, manifested by either:Pathological abnormalities or Markers of kidney damage (including abnormalities in the composition of the blood or urine or abnormalities in imaging tests). Lab Interpretation Abnormal (test code = 26043-0) [facility] 11[facility]15:00 Test Item Value Reference Range Interpretation Comments MAGNESIUM (test code = 7543268110) 1.9 mg/dL 1.7-2.4 Lab Interpretation (test code = Normal 96203-9) [facility] GLUCOSE (AUTOMATED)2019-03-03 02:08:00 Test Item Value Reference Range Interpretation Comments POCT GLU (test code = 6678627599) 392 mg/dL 70-110 H Lab Interpretation (test code = Abnormal 58888-0) [facility] GLUCOSE (AUTOMATED)2019-03-02 23:12:00 Test Item Value Reference Range Interpretation Comments POCT GLU (test code = 1988423934) 320 mg/dL 70-110 H Lab Interpretation (test code = Abnormal 49490-8) [facility] CenterURINE [id number] 22:39:00 Test Item Value Reference Range Interpretation Comments URINE CULTURE (test No aerobic growth (< code = 630-4) 1000 CFU/mL) [facility] GLUCOSE (AUTOMATED)2019-03-02 17:29:00 Test Item Value Reference Range Interpretation Comments POCT GLU (test code = 1129080351) 289 mg/dL 70-110 H Lab Interpretation (test code = Abnormal 33944-3) [facility] GLUCOSE (AUTOMATED)2019-03-02 13:40:00 Test Item Value Reference Range Interpretation Comments POCT GLU (test code = 5019802580) 309 mg/dL 70-110 H Lab Interpretation (test code = Abnormal 63320-8) [facility] CenterURINALYSIS2020-01-18 08:51:00 Test Item Value Reference Range Interpretation Comments APPEARANCE (test code = Clear Clear 5755459664) COLOR (test code = Yellow Yellow 6333692028) PH (test code = 4.8-8.0 1674968537) SP GRAVITY (test code = 1.003-1.030 3348237369) GLU U QUAL (test code = 50 mg/dL Normal A 5484848363) BLOOD (test code = 1+ Negative A 0718786037) KETONES (test code = Negative Negative 3013060309) PROTEIN (test code = Negative Negative 2887-8) UROBILIN (test code = Normal Normal 3638723569) BILIRUBIN (test code = Negative Negative 6080000472) NITRITE (test code = Negative Negative 1006279577) LEUK JARVIS (test code = Negative Negative 5293978430) RBC/HPF (test code = See_Comment [Autom ated message] 2254194027) The system [employer] generated this result transmitted ref erence range: 0 - 3 HP F. The reference range was not used to int erpret this result as normal/abnormal . WBC/HPF (test code = <1 See_Comment [Autom ated message] 6121278184) The system [employer] generated this result transmitted ref erence range: 0 - 5 HP F. The reference range was not used to int erpret this result as normal/abnormal . BACTERIA (test code = Negative Negative 1663973450) MUCOUS (test code = Slight Negative LPF A 3320739549) SQ EPITH (test code = <1 See_Comment [Auto mated message] 6162869510) The system [employer] generated this result transmitted ref erence range: <=2 HPF. The reference range was not used to int erpret this result as normal/abnormal . HYAL CAST (test code = See_Comment H [Aut omated message] 5899709979) The system [employer] generated this result transmitted ref erence range: <=2 LPF. The reference range was not used to int erpret this result as normal/abnormal . Lab Interpretation (test Abnormal code = 65240-1) [facility] CenterUS RETROPERITONEAL [id number] 04:23:17 Unremarkable renal ultrasound. Preliminary Report Dictated by Resident: Cong Echavarria MD., have reviewed this study and agree with the abovereport.RENAL ULTRASOUND: HISTORY: ?WISAM onCKD COMPARISON: ?None FINDINGS: Both kidneys are normal in size and echotexture without focal defect, hydronephrosis, or perirenal fluid. The right kidney measures 13.4 x 5.2 x6.4 cm and the left kidneymeasures 11.8 x 6.1 x 6.5 cm. [facility], Radiant Results Inft User - 03/01/2019 10:24 PM CSTRENAL ULTRASOUND: HISTORY: WISAM on CKD COMPARISON: NoneFINDINGS: Both kidneys are normal in size and echotexture without focal defect,hydronephrosis, or perirenal fluid. The right kidney measures 13.4 x 5.2 x6.4 cm and the left kidney measures 11.8 x 6.1 x 6.5 cm. IMPRESSION Unremarkable renal ultrasound.PreliminaryReport Dictated by Resident: Aquilino Tavera, Cong Lopez MD., have reviewed this study and agree with the abovereport.[facility] CenterSODIUM, URINE [id number] 04:06:00 Test Item Value Reference Range Interpretation Comments NA URINE (test code = 9972349558) 90 mmol/L [facility] CenterCREATININE, URINE [id number] 04:06:00 Test Item Value Reference Range Interpretation Comments CREAT U (test code = 5041842540) 114.7 mg/dL [facility] CenterGLYCOSYLATED HEMOGLOBIN (A1C)2019-03-02 03:07:00 Test Item Value Reference Range Interpretation Comments HGB A1C (test code = 4548-4) 10.8 % 4-6 H Lab Interpretation (test code = Abnormal 51270-9) [facility] CenterVancomycin Trough Level - Draw within 30 minutes prior to 4TH dose.2019-03-02 02:09:00 Test Item Value Reference Range Interpretation Comments VANCO TROUGH (test code <5.0 10-20 L = 6751613671) LUIS ANGEL (test code = LUIS ANGEL) Toxic Range: ?>20 ug/mL 15-20 ug/mL is recommended for severe infection or when Vancomycin HILLARY is greater than or equal to 2. Lab Interpretation (test Abnormal code = 56020-5) [facility] CenterPOCT GLUCOSE (AUTOMATED)2019-03-02 01:48:00 Test Item Value Reference Range Interpretation Comments POCT GLU (test code = 7847854045) 242 mg/dL 70-110 H Lab Interpretation (test code = Abnormal 60088-3) [facility] CenterCBC WITH [id number] 01:15:00 Test Item Value Reference Range Interpretation Comments WBC (test code = See_Comment H [Automated 1790-2) message] The sy stem which generated this result transmitted reference range : 4.20 - 10.70 10*3/?L. The reference range was not used to interpret this result as normal/abnormal . RBC (test code = See_Comment [Automated 469-8) message] The sy stem which generated this result transmitted reference range : 4.26 - 5.52 10*6/?L. The reference range was not used to interpret this result as normal/abnormal . HGB (test code = 13.5 g/dL 12.2-16.4 718-7) HCT (test code = 42.7 % 38.4-49.3 4544-3) MCV (test code = 85.6 fL 81.7-95.6 787-2) MCH (test code = 27.1 pg 26.1-32.7 785-6) MCHC (test code = 31.6 g/dL 31.2-35 786-4) RDW-SD (test code = 46.1 fL 38.5-51.6 82709-3) RDW-CV (test code = 14.7 % 12.1-15.4 788-0) PLT (test code = See_Comment H [Automated 777-3) message] The sy stem which generated this result transmitted reference range : 150 - 328 10*3/ ?L. The reference r sherice was not used to interpret this result as normal/abnormal . MPV (test code = 11.6 fL 9.8-13 68259-6) NRBC/100 WBC (test See_Comment [Automat ed code = 3791093985) message] The system which generated this result transmitted reference range : 0.0 - 10.0 /100 WBCs. The refer ence range was not u sed to interpret th is result as normal/abnormal . NRBC x10^3 (test code <0.01 See_Comment [Auto mated = 5961982688) message] The s ystem which generated this result transmitted reference range : 10*3/?L. The reference range was not used to interpret this result as normal/abnormal . GRAN MAT (NEUT) % 60.2 % (test code = 770-8) IMM GRAN % (test code 0.50 % = 3661228768) LYMPH % (test code = 22.9 % 736-9) MONO % (test code = 14.4 % 5905-5) EOS % (test code = 1.7 % 713-8) BASO % (test code = 0.3 % 706-2) GRAN MAT x10^3(ANC) 9.79 10*3/uL 1.99-6.95 H (test code = 2522617286) IMM GRAN x10^3 (test 0.08 10*3/uL 0-0.06 H code = 1988371576) LYMPH x10^3 (test code 3.73 10*3/uL 1.09-3.23 H = 731-0) MONO x10^3 (test code 2.34 10*3/uL 0.36-1.02 H = 742-7) EOS x10^3 (test code = 0.27 10*3/uL 0.06-0.53 711-2) BASO x10^3 (test code 0.05 10*3/uL 0.01-0.09 = 704-7) Lab Interpretation Abnormal (test code = 30116-2) [facility] METABOLIC PANEL (NA, K, CL, CO2, GLUCOSE, BUN, CREATININE, CA)2019-03-02 01:11:00 Test Item Value Reference Range Interpretation Comments NA (test code = 138 mmol/L 135-145 4410510648) K (test code = 4.3 mmol/L 3.5-5 7056815041) CL (test code = 98 mmol/L 98-108 7632245489) CO2 TOTAL (test code = 28 mmol/L 23-31 6374598568) AGAP (test code = 2-16 9322816286) BUN (test code = 18 mg/dL 7-23 2787812374) GLUCOSE (test code = 264 mg/dL 70-110 H 9505208689) CREATININE (test code = 1.05 mg/dL 0.6-1.25 5241816265) CALCIUM (test code = 9.8 mg/dL 8.6-10.6 6160353909) eGFR Calculation mL/min/1.73m2 (Non-) (test code = 2987007531) eGFR Calculation mL/min/1.73m2 () (test code = 6384284717) LUIS ANGEL (test code = LUIS ANGEL) Association of Glomerular Filtration Rate (GFR) and Staging of Kidney Disease* + --+ --+ ------+| GFR (mL/min/1.73 m2) ?| With Kidney Damage ?| ?Without Kidney Damage+ --------+ --------+ +| ?>90 ?| ?Stage one ?| ? Normal ?+ ---+ ---+ -------+| ?60-89 ?| ?Stage two ?| ? Decreased GFR ? + --+ --+ ------+| ?30-59 ?| ?Stage three ?| ? Stage three ? + --+ --+ ------+| ?15-29 ?| ?Stage four ? | ? Stage four ?+ ---+ ---+ -------+| ?<15 (or dialysis) ? ?| ?Stage five ? | ? Stage five ?+ ---+ ---+ -------+ *Each stage assumes the associated GFR level has been in effect for at least three months. ?Stages 1 to 5, with or without kidney disease, indicate chronic kidney disease. Notes: Determination of stages one and two (with eGFR >59mL/min/1.73 m2) requires estimation of kidney damage for at least three months as defined by structural or functional abnormalities of the kidney, manifested by either:Pathological abnormalities or Markers of kidney damage (including abnormalities in the composition of the blood or urine or abnormalities in imaging tests). Lab Interpretation Abnormal (test code = 58940-6) [facility] CenterMagnesium [id number] 01:11:00 Test Item Value Reference Range Interpretation Comments MAGNESIUM (test code = 2165551099) 1.8 mg/dL 1.7-2.4 Lab Interpretation (test code = Normal 69798-4) [facility] CenterProthrombin Time / [id number] 00:55:00 Test Item Value Reference Range Interpretation Comments PROTIME PATIENT (test See_Comment H [Auto mated message] code = 5964-2) The system [employer] generated this result transmitted ref erence range: 10.1 - 1 2.6 Seconds. The reference range was not used to int erpret this result as normal/abnormal . INR (test code = 6301-6) Nor mal INR <1.1; Warfarin Therap eutic range 2.0 to 3. 0 or 2.5 to 3.5, dep ending upon the indica tions. Lab Interpretation (test Abnormal code = 97417-2) [facility] CenteraPTT2020-01-18 00:55:00 Test Item Value Reference Range Interpretation Comments APTT Patient (test code = See_Comment [ Automated message] 3173-2) The system [employer] generated this result transmitted ref erence range: 26 - 36 Seconds. The re ference range was not u sed to interpret this result as normal/abnor mal. Lab Interpretation (test Normal code = 45276-3) [facility] CenterXR ANKLE 3+ VW [id number] 19:00:15 Progressive Charcot arthropathy at the level of the ankle/midfoot withmarked surrounding swelling. EXAM: XR ANKLE 3+ VW RIGHT HISTORY: 63 YO M with charcot foot and swelling, eval for osteomyelitis COMPARISON: July 2018 FINDINGS: Imaging of the right ankle demonstrates progressive resorption withfragmentation and articular collapse at the level of the talocalcaneal,talonavicular, calcaneocuboid and navicular cuneiform joints. Markedswelling is seen about the ankle with surrounding osseous debris. Chroniccortical periosteal remodeling of the distal tibia and fibula remain. Asurgical clip is seen over the distal medial leg. Healing hardware tracksare noted through the distal tibial diaphysis and posterior calcaneus. [facility], Radiant Results Inft User - 02/27/2019 1:01 PM CSTEXAM:XR ANKLE 3+ VW RIGHTHISTORY:63 YO M with charcot foot and swelling, eval for osteomyelitis COMPARISON:July 2018FINDINGS: Imaging of the right ankle demonstrates progressive resorption withfragmentation and articular collapse at the level of the talocalcaneal,talonavicular, calcaneocuboid and navicular cuneiform joints. Markedswelling is seen about the ankle with surrounding osseous debris. Chroniccortical periosteal remodeling of the distal tibia and fibula remain. Asurgical clip is seen over the distal medial leg. Healing hardware tracksare noted through the distal tibial diaphysis and posterior calcaneus.IMPRESSIONProgressive Charcot arthropathy at the level of the ankle/midfoot withmarked surrounding swelling.[facility] C-REACTIVE [id number] 19:50:00 Test Item Value Reference Range Interpretation Comments CRP (test code = 0704183573) 2.8 mg/dL <0.8 H Lab Interpretation (test code = Abnormal 89146-5) [facility] CenterC-REACTIVE [id number] 19:50:00 Test Item Value Reference Range Interpretation Comments CRP (test code = 3584888833) 2.8 mg/dL <0.8 H Lab Interpretation (test code = Abnormal 42465-8) [facility] CenterSEDIMENTATION [id number] 19:26:00 Test Item Value Reference Range Interpretation Comments ESR (test code = See_Comment H [Automated message] 7224761732) The system [employer] generated this result transmitted ref erence range: 0 - 10 m m/HR. The reference r sherice was not used to interpret this result as normal/abnor mal. Lab Interpretation (test Abnormal code = 57282-2) [facility] WITH [id number] 19:26:00 Test Item Value Reference Range Interpretation Comments WBC (test code = See_Comment H [Automated 6690-2) message] The sy stem which generated this result transmitted reference range : 4.20 - 10.70 10*3/?L. The reference range was not used to interpret this result as normal/abnormal . RBC (test code = See_Comment [Automated 789-8) message] The sy stem which generated this result transmitted reference range : 4.26 - 5.52 10*6/?L. The reference range was not used to interpret this result as normal/abnormal . HGB (test code = 12.4 g/dL 12.2-16.4 718-7) HCT (test code = 40.5 % 38.4-49.3 4544-3) MCV (test code = 86.4 fL 81.7-95.6 787-2) MCH (test code = 26.4 pg 26.1-32.7 785-6) MCHC (test code = 30.6 g/dL 31.2-35 L 786-4) RDW-SD (test code = 55.4 fL 38.5-51.6 H 36124-4) RDW-CV (test code = 17.9 % 12.1-15.4 H 788-0) PLT (test code = See_Comment H [Automated 777-3) message] The sy stem which generated this result transmitted reference range : 150 - 328 10*3/ ?L. The reference r sherice was not used to interpret this result as normal/abnormal . MPV (test code = 10.6 fL 9.8-13 54048-9) NRBC/100 WBC (test See_Comment [Automat ed code = 1060598412) message] The system which generated this result transmitted reference range : 0.0 - 10.0 /100 WBCs. The refer ence range was not u sed to interpret th is result as normal/abnormal . NRBC x10^3 (test code <0.01 See_Comment [Auto mated = 0206390692) message] The s ystem which generated this result transmitted reference range : 10*3/?L. The reference range was not used to interpret this result as normal/abnormal . GRAN MAT (NEUT) % 49.5 % (test code = 770-8) IMM GRAN % (test code 0.70 % = 0636905240) LYMPH % (test code = 36.9 % 736-9) MONO % (test code = 9.7 % 5905-5) EOS % (test code = 2.5 % 713-8) BASO % (test code = 0.7 % 706-2) GRAN MAT x10^3(ANC) 6.03 10*3/uL 1.99-6.95 (test code = 1488701429) IMM GRAN x10^3 (test 0.09 10*3/uL 0-0.06 H code = 7526303378) LYMPH x10^3 (test code 4.49 10*3/uL 1.09-3.23 H = 731-0) MONO x10^3 (test code 1.18 10*3/uL 0.36-1.02 H = 742-7) EOS x10^3 (test code = 0.30 10*3/uL 0.06-0.53 711-2) BASO x10^3 (test code 0.08 10*3/uL 0.01-0.09 = 704-7) Lab Interpretation Abnormal (test code = 06134-2) [id number]:26:00 Test Item Value Reference Range Interpretation Comments ESR (test code = See_Comment H [Automated message] [id number]) The system whic h generated this result transmitted ref erence range: 0 - 10 m m/HR. The reference r sherice was not used to interpret this result as normal/abnor mal. Lab Interpretation (test Abnormal code = 51114-4) [facility] WITH [id number] 19:26:00 Test Item Value Reference Range Interpretation Comments WBC (test code = See_Comment H [Automated 6690-2) message] The sy stem which generated this result transmitted reference range : 4.20 - 10.70 10*3/?L. The reference range was not used to interpret this result as normal/abnormal . RBC (test code = See_Comment [Automated 789-8) message] The sy stem which generated this result transmitted reference range : 4.26 - 5.52 10*6/?L. The reference range was not used to interpret this result as normal/abnormal . HGB (test code = 12.4 g/dL 12.2-16.4 718-7) HCT (test code = 40.5 % 38.4-49.3 4544-3) MCV (test code = 86.4 fL 81.7-95.6 787-2) MCH (test code = 26.4 pg 26.1-32.7 785-6) MCHC (test code = 30.6 g/dL 31.2-35 L 786-4) RDW-SD (test code = 55.4 fL 38.5-51.6 H 66638-0) RDW-CV (test code = 17.9 % 12.1-15.4 H 788-0) PLT (test code = See_Comment H [Automated 777-3) message] The sy stem which generated this result transmitted reference range : 150 - 328 10*3/ ?L. The reference r sherice was not used to interpret this result as normal/abnormal . MPV (test code = 10.6 fL 9.8-13 62478-4) NRBC/100 WBC (test See_Comment [Automat ed code = 2374622402) message] The system which generated this result transmitted reference range : 0.0 - 10.0 /100 WBCs. The refer ence range was not u sed to interpret th is result as normal/abnormal . NRBC x10^3 (test code <0.01 See_Comment [Auto mated = 6441674473) message] The s ystem which generated this result transmitted reference range : 10*3/?L. The reference range was not used to interpret this result as normal/abnormal . GRAN MAT (NEUT) % 49.5 % (test code = 770-8) IMM GRAN % (test code 0.70 % = 8415752021) LYMPH % (test code = 36.9 % 736-9) MONO % (test code = 9.7 % 5905-5) EOS % (test code = 2.5 % 713-8) BASO % (test code = 0.7 % 706-2) GRAN MAT x10^3(ANC) 6.03 10*3/uL 1.99-6.95 (test code = 5547411605) IMM GRAN x10^3 (test 0.09 10*3/uL 0-0.06 H code = 0515521599) LYMPH x10^3 (test code 4.49 10*3/uL 1.09-3.23 H = 731-0) MONO x10^3 (test code 1.18 10*3/uL 0.36-1.02 H = 742-7) EOS x10^3 (test code = 0.30 10*3/uL 0.06-0.53 711-2) BASO x10^3 (test code 0.08 10*3/uL 0.01-0.09 = 704-7) Lab Interpretation Abnormal (test code = 29076-2) [facility] METABOLIC PANEL (NA, K, CL, CO2, GLUCOSE, BUN, CREATININE, CA)2018-09-12 19:06:00 Test Item Value Reference Range Interpretation Comments NA (test code = 141 mmol/L 135-145 7977319089) K (test code = 4.9 mmol/L 3.5-5 3722458503) CL (test code = 104 mmol/L 98-108 7301918758) CO2 TOTAL (test code = 27 mmol/L 23-31 7176322710) AGAP (test code = 2-16 7448154750) BUN (test code = 19 mg/dL 7-23 6515184794) GLUCOSE (test code = 93 mg/dL 70-110 3545690977) CREATININE (test code 1.01 mg/dL 0.6-1.25 = 4320427312) CALCIUM (test code = 9.5 mg/dL 8.6-10.6 5926027276) eGFR Calculation mL/min/1.73m2 (Non-) (test code = 9031179862) eGFR Calculation mL/min/1.73m2 () (test code = 6354887925) LUIS ANGEL (test code = LUIS ANGEL) Association of Glomerular Filtration Rate (GFR) and Staging of Kidney Disease*+ ---------+ --------+ +| GFR (mL/min/1.73 m2)?| With Kidney Damage?|?Without Kidney Damage+ -------+ ------+ ---------+|?>90?|?Stage one?|? Normal?+ --------+ -------+ +|?60-89?|?St age two?|? Decreased GFR? + -+ + ---+|?30-59?|?Stage three?|? Stage three? + -+ + ---+|?15-29?|?Stage four? |? Stage four?+ ------+ -----+ --------+|?<15 (or dialysis)?|?Stage five? |? Stage five?+ ------+ -----+ --------+*Each stage assumes the associated GFR level has been in effect for at least three months.?Stages 1 to 5, with or without kidney disease, indicate chronic kidney disease.Notes: Determination of stages one and two (with eGFR >59mL/min/1.73 m2) requires estimation of kidney damage for at least three months as defined by structural or functional abnormalities of the kidney, manifested by either:Pathological abnormalities or Markers of kidney damage (including abnormalities in the composition of the blood or urine or abnormalities in imaging tests). [facility] (NA, K, CL, CO2, GLUCOSE, BUN, CREATININE, CA)2018-09-12 19:06:00 Test Item Value Reference Range Interpretation Comments NA (test code = 141 mmol/L 135-145 2889240145) K (test code = 4.9 mmol/L 3.5-5 6333667426) CL (test code = 104 mmol/L 98-108 8290220182) CO2 TOTAL (test code = 27 mmol/L 23-31 8022808374) AGAP (test code = 2-16 5733799532) BUN (test code = 19 mg/dL 7-23 3765705319) GLUCOSE (test code = 93 mg/dL 70-110 7309633758) CREATININE (test code 1.01 mg/dL 0.6-1.25 = 2107621048) CALCIUM (test code = 9.5 mg/dL 8.6-10.6 2865011490) eGFR Calculation mL/min/1.73m2 (Non-) (test code = 3861137926) eGFR Calculation mL/min/1.73m2 () (test code = 0314376889) LUIS ANGEL (test code = LUIS ANGEL) Association of Glomerular Filtration Rate (GFR) and Staging of Kidney Disease*+ ---------+ --------+ +| GFR (mL/min/1.73 m2)?| With Kidney Damage?|?Without Kidney Damage+ -------+ ------+ ---------+|?>90?|?Stage one?|? Normal?+ --------+ -------+ +|?60-89?|?St age two?|? Decreased GFR? + -+ + ---+|?30-59?|?Stage three?|? Stage three? + -+ + ---+|?15-29?|?Stage four? |? Stage four?+ ------+ -----+ --------+|?<15 (or dialysis)?|?Stage five? |? Stage five?+ ------+ -----+ --------+*Each stage assumes the associated GFR level has been in effect for at least three months.?Stages 1 to 5, with or without kidney disease, indicate chronic kidney disease.Notes: Determination of stages one and two (with eGFR >59mL/min/1.73 m2) requires estimation of kidney damage for at least three months as defined by structural or functional abnormalities of the kidney, manifested by either:Pathological abnormalities or Markers of kidney damage (including abnormalities in the composition of the blood or urine or abnormalities in imaging tests). [facility] With Differential/Platelet Test Item Value Reference Range Interpretation Comments WBC (test code = 6690-2) 11.1 RBC (test code = 789-8) 5.31 Hemoglobin (test code = 718-7) 14.7 Hematocrit (test code = 4544-3) 44.2 MCV (test code = 787-2) 83 MCH (test code = 785-6) 27.7 MCHC (test code = 786-4) 33.3 RDW (test code = 788-0) 14.4 Platelets (test code = 777-3) 482 Neutrophils (test code = 770-8) 61 Lymphs (test code = 736-9) 23 Monocytes (test code = 5905-5) 11 Eos (test code = 713-8) 3 Basos (test code = 706-2) 1 Immature Cells (test code = UNLOINC) Neutrophils (Absolute) (test code = 6.9 751-8) Lymphs (Absolute) (test code = 731-0) 2.5 Monocytes(Absolute) (test code = 742-7) 1.3 Eos (Absolute) (test code = 711-2) 0.3 Baso (Absolute) (test code = 704-7) 0.1 Immature Granulocytes (test code = 1 04485-3) Immature Grans (Abs) (test code = 0.1 01157-1) NRBC (test code = 96109-2) Hematology Comments: (test code = 38601-1) TSH reflex to T4F Test Item Value Reference Range Interpretation Comments TSH (test code = 66193-3) 2.080 Lipid Panel With LDL/HDL Ratio Test Item Value Reference Range Interpretation Comments Cholesterol, Total (test code = 2093-3) 273 Triglycerides (test code = 2571-8) 338 HDL Cholesterol (test code = 2085-9) 36 Prostate-Specific Ag, Serum Test Item Value Reference Range Interpretation Comments Prostate Specific Ag, Serum (test code 3.2 = 2857-1) Microalbumin/Creat Ratio, Random Ur Test Item Value Reference Range Interpretation Comments Creatinine, Urine (test code = 2161-8) 202.0 Albumin, Urine (test code = 39505-6) 16.7 Alb/Creat Ratio (test code = 74723-9) 8 Hemoglobin A1c Test Item Value Reference Range Interpretation Comments Hemoglobin A1c (test code = 4548-4) 8.7 Comp. Metabolic Panel (14) (CMP) Test Item Value Reference Range Interpretation Comments Glucose (test code = 2345-7) 207 BUN (test code = 3094-0) 17 Creatinine (test code = 2160-0) 1.04 eGFR If NonAfricn Am (test code = 75 00362-2) eGFR If Africn Am (test code = 24348-3) 87 BUN/Creatinine Ratio (test code = 16 3097-3) Sodium (test code = 2951-2) 136 Potassium (test code = 2823-3) 4.9 Chloride (test code = 2075-0) 96 Carbon Dioxide, Total (test code = 22 2027-9) Calcium (test code = 77266-4) 10.2 Protein, Total (test code = 2885-2) 7.7 Albumin (test code = 1751-7) 3.9 Globulin, Total (test code = 62036-4) 3.8 A/G Ratio (test code = 1759-0) 1.0 Bilirubin, Total (test code = 1975-2) 0.7 Alkaline Phosphatase (test code = 591 6768-6) AST (SGOT) (test code = 1920-8) 42 ALT (SGPT) (test code = 1742-6) 38 Notes Date/Time Note Provider Source 2022-09-05 Addended by: BOOKER BARDALES MD on: 09/05/2022 12:13 PM [facility] 12:13:14-00:00 Modules accepted: Orders 2022-08-31 Formatting of this note might be differe nt from the original. Marisol Ramirez [facility] 11:48:45-00:00 Patient's daughter called an d stated that she found another doctor that was willing to do more for the patient today, so she canceled his appointment for this afternoon. Electronically signed by Marisol Ramirez at 08/13 11:49 AM CDT 2022-08-31 Formatting of this note might be differe nt from the original. Ruthie Varela [facility] 11:04:24-00:00 Patient's daughter called re questing to speak with physician. Daughter verbalizes she is disturbed with patient's care and cancellation of cystoscope. Daughter verbalizes statements such as "This is the Elie RN 3rd time [facility] has let him d own." "If this was your loved one maybe you would care." Daughter also verbalizes, "I have called other places and they state you can do a urine test right then and do this p rocedure immediately. I need you to quit lying to me and let me talk to the doctor so that we can get this test done. If it was someone you cared about you would do something." Reinforced to daughter that staff and [facility] cares about doing our best for patients and that no one is purposefully lying to her or the patient. Educated daughter that she and her father are able to papi se another facility for therese ent's care and that if she identifies a provider she would prefer that provider can submit a request for records here at [facility] to ensure the best continuity of care for the shelbie justice. Daughter verbalizes, "Everyone I've talked to said I need to stay here because all my dad's records are here. So are you telling me that I just need to keep taking him to the ER?" Re-educated ishmael valles that the reason cystos cope was cancelled was due to patient not getting urine culture completed in a timely fashion so that cystoscope could be preformed, that patient should continue to present t o the ER for any life threat ening concerns, and that equipment scheduler states that next available cysto appointment is in October. Daughter states, "There you are lying again. My dad already has an appointmen t September for a cysto. None o f you know what is happening and if I could talk with the doctor this would get done." Per Rosales Cuenca patient called yesterday with same complaints and case was reviewed with , advised that patient needs urine culture prior to cystoscope per [facility] standards of care due to patient's history of antibiotic resistant bacteria. Rosales states she also sc heduled the patient for the next available cystoscope during that conversation. This RN and PSS were not aware and were giving patient next available appointment date which is in October. Explained th is to daughter, hong crow to demand to talk with physician over the phone immediately and states that everyone is lying to her. Gave daughter patient services phone number at [phone] to di scuss complaints. Patient guo s scheduled appointment today at 1pm, advised daughter that she should attend scheduled appointment with patient and would then have the opportunity to discuss concerns and p jenae of care with physician f mg to face, but that doctor was not going to discuss patient's care over the phone with her at this time. Daughter states, "If I come in to see the doctor today is something going to get done or is he just going to lie to me like everyone else?" Daughter informed that [facility] will continue to attempt to provide her father with best quality care that he has been receiving, christiano hyde daughter clinic location i nformation. Daughter hung up on this RN before verbalizing confirmation of provided education/information. 2022-08-31 Formatting of this note might be differe nt from the original. Obdulia Mcfarlane MA [facility] 11:03:16-00:00 Spoke with patient's shilo lei via telephone, patient's daughter voiced her anger and seems very upset over the situation. Patient did not complete urine culture in time for procedure scheduled for 2022. I explained to patient 's daughter that the clinic allowed exception for patient to have urine culture done 5 days prior to procedure, when normal practice is 10-14 days prior. Patient's daughter i s very adamant about speakin g to someone that can provide for her father to have procedure done sooner. Explained to patient's daughter the risks of infection without urine culture done in acceptable ti me frame. Also explained to patient's daughter that provider is completely booked until September for procedure in clinic. Electronically signed by Obdulia Mcfarlane MA at 11:13 AM CDT 2022-04-21 [id number] [facility] 23:31:00-00:[address] [place] [address] PATIENT NAME: PEDRO MCGREGOR ADMIT DATE: 02/27/22 ACCOUNT NO: [id number] ROOM NO: [facility] AGE: 66 REPORT TYPE: 360 - QUERY RESPONSE DOCUMENT SEX: M ADMITTING PHYSICIAN:Chelo Ward MD ATTENDING PHYSICIAN:Chelo Ward MD Provider Query QUERY TEXT: Condition General 360MD Query related questions should be directed to: Jessica dumont [facility] Coding Query Helpline Based on your medical judgement and the clinical indicators listed below kindly specify the underlying cause of the patient's Weakness (Hypertension, Osteomyelitis , Hypomagnesemia, unspecified, or other more appr opriate diagnosis)? The patient's Clinical Indicators include: Generalized weakness, improving --Hospitalist Di scharge Summary 02/26/2022 Hypertension-Hospitalist Discharge Summary 02/26 Osteomyelitis-Hospitalist Discharge Summary 02/13 Hypomagnesemia-Hospitalist Discharge Summary NS 1,000 mL-IV-MAR Options provided: -- Respond - Create new note now -- Dismiss - Not applicable / Not valid -- Dismiss - Clinically unable to determine / Un known -- Assign to another provider QUERY RESPONSE: It is due hypomagnesemia Query created by: Ramila Pastor on 03/02/19 23 11:22 PM Electronically Signed by Javy Hyman MD on 0 04/21/22 at 2331 PATIENT NAME: PEDRO MCGREGOR 2022-03-05 [id number] [facility] 12:26:00-00:[address] [place] [address] PATIENT NAME: PEDRO MCGREGOR ADMIT DATE: 02/11/22 ACCOUNT NO: [id number] ROOM NO: G.651 AGE: 66 REPORT TYPE: 360 - QUERY RESPONSE DOCUMENT SEX: M ADMITTING PHYSICIAN:Chelo Ward MD ATTENDING PHYSICIAN:Chelo Ward MD Provider Query QUERY TEXT: Condition General 360MD Query related questions should be directed to: [Based on your medical judgment, can you provide the known or suspected condition that represents the clin ical indicators below (Sepsis, SIRS, Bacteremia, Loc alized infection or Other more appropriate diagnosis) ?] The patient's Clinical Indicators include: Sepsis : ED PHYSICIAN RECORD 02/09/2022 Recently treated for bacteremia Enterococcal ivory calis. : HISTORY and PHYSICAL 02/09/2022 Infected wound left foot, Abscess left foot, Ost eomyelitis left foot : DT Operative Note 02/17/2022 Osteomyelitis and septic arthritis of the left f oot and ankle -wound cx E.coli and E.fecalis -s/p debri bernice : Infectious Dis. Progress Note 02/11/2022 Cellulitis and draining wound medial left foot : Podiatry Consult Note 02/12/2022 Pulse 100 02/09 1423 : ED PHYSICIAN RECORD 02/09 WBC (4.5 - 11.0 x10 3/uL) 13.9 H : ED PHYSICIAN RECORD 02/09/2022 Piperacillin/Tazo 3.375 GM Inj, Vancomycin 1,000 mg Inj : MAR Options provided: -- Respond - Create new note now -- Dismiss - Not applicable / Not valid -- Dismiss - Clinically unable to determine / Un known -- Assign to another provider QUERY RESPONSE: Localized infection Query created by: Juan Bui on 03/03/2022 12:20 AM at 1226 PATIENT NAME: PEDRO MCGREGOR 2022-02-27 [facility] 11:36:00-00:00 [facility] ([facility] Hospitalist Progress Note REPORT#:[id number] REPORT STATUS: Signed DATE:02/27/22 TIME: 1136 PATIENT: PEDRO MCGREGOR UNIT #: [id number] ROOM/BED: [place] [address] : 54 AGE: 66 SEX: M ATTEND: Jean-Paul Ward od, MD ADM AUTHOR: Javy Hyman MD * ALL edits or amendments must be made on the [employer]/computer document * Subjective Chief complaint: Patient is seen and examined at the bedside this morning. States he is doing well and he is going home today with his shilo r. Patient was discharged yesteray but overstayed last night due to lack o f transportation home. Review of Systems All systems rev neg: except as marked Objective Physical Exam Cardiovascular: normal capillary refill, normal heart sounds Respiratory: aerating well, clear to auscultatio n, symmetric expansion, no distress Abdomen: non-tender, normal bowel sounds, soft, no distention, no guarding Results Findings/Data: Laboratory Tests 02/27 02/27 02/26 02/26 0525 0522 1941 1603 Chemistry Sodium (134 - 147 mEq/L) 137 Potassium (3.4 - 5.0 mEq/L) 3.4 Chloride (100 - 108 mEq/L) 103 Carbon Dioxide (21 - 33 mEq/l) 25 Anion Gap (0 - 20) 12 BUN (7 - 18 mg/dL) 5 L Creatinine (0.6 - 1.3 mg/dL) 1.0 Glomerular Filtr Rate (80 - 90) 82.5 Glucose (70 - 110 mg/dL) 215 H POC Glucose (70 - 110 MG/DL) 206 H 249 H 257 H Calcium (8.0 - 10.5 mg/dL) 8.9 Total Bilirubin (0.0 - 1.0 mg/dL) 0.20 AST (15 - 37 IUnit/L) 40 H ALT (30 - 65 IUnit/L) 28 L Total Alk Phosphatase (20 - 125 IUnit/L) 214 H Total Protein (6.4 - 8.2 g/dL) 7.4 Albumin (3.4 - 5.0 g/dL) 2.30 L Laboratory Tests 02/27 0525 Hematology WBC (4.5 - 11.0 x10 3/uL) 13.9 H RBC (4.00 - 5.60 x10 6/uL) 3.50 L Hgb (12.5 - 16.9 g/dL) 9.4 L Hct (37.5 - 50.7 %) 31.0 L MCV (81.0 - 99.0 fL) 88.6 MCH (27.0 - 33.0 pg) 26.9 L MCHC (33.0 - 37.0 g/dL) 30.3 L RDW (11.5 - 14.5 %) 17.2 H Plt Count (150 - 400 x10 3/uL) 636 H MPV (7.0 - 9.0 fL) 11.9 H Neut % (Auto) (56.0 - 77.0 %) 48.7 L Lymph % (Auto) (14.0 - 32.0 %) 35.6 H Kern % (Auto) (4.8 - 9.0 %) 11.2 H Eos % (Auto) (0.3 - 3.7 %) 3.9 H Baso % (Auto) (0.0 - 2.0 %) 0.4 Neut # (Auto) (2.0 - 7.6 x10 3/uL) 6.77 Lymph # (Auto) (1.0 - 3.8 x10 3/uL) 4.95 H Kern # (Auto) (0.1 - 0.8 x10 3/uL) 1.56 H Eos # (Auto) (0.0 - 0.2 x10 3/uL) 0.54 H Baso # (Auto) (0.0 - 0.2 x10 3/uL) 0.06 Abs Immat Gran (auto) (0.00 - 0.03 x10 3/uL) 0 .03 Add Manual Diff NO Immature Gran % (0.0 - 2.0 %) 0.2 Nucleated RBC % (0 - 0 %) 0.0 Nucleated RBCs # (Man) (0.0 - 0.1 x10 3/uL) 0.0 0 Results: vital signs reviewed Diagnosis, Assessment Plan Free Text DxA P Notes Free text DxA P notes: ASSESSMENT AND PLAN: - Generalized weakness - Recurrent left foot osteomyelitis. - Infected wound left foot/Abscess left foot s/p I D. - Left foot pain, status post recent procedure. - Leukocytosis. - Hypokalemia-replaced - Hypomagnesemia-replaced. - Recently treated for bacteremia Enterococcal f aecalis. - History of hypertension. - History of hyperlipidemia. - History of depression, mood disorder. - History of diabetes type 2. - History of diabetic foot ulcer, nonhealing. - History of liver disease. PLAN: Floor. He needs Semi/Fully electric Hospital bed to all eviate Pain and assist with Position changes due to his Left foot OM. Will go home today with with HH and ABX. Waiting for DME and Hospital Bed. S/p I D of left foot. Continue to monitor blood pressure and heart rat e. ID following for OM. Pain medication. Antiemetics. Follow labs and replace as needed. SCD for DVT prophylaxis. Continue home medication. Glycemic control, Accu-Cheks, sliding scale and diabetic diet. Monitor. He is going home today with home health. Please see discharge summery from 02/26. Electronically Signed by Javy Hyman MD on at 1141 RPT #:[id number] END OF REPORT 2022-02-26 [facility] 18:49:00-00:00 [facility] ([facility]) Hospitalist Discharge Summary REPORT#:[id number] REPORT STATUS: Signed DATE:02/26/22 TIME: 1848 PATIENT: PEDRO MCGREGOR UNIT #: [id number] ROOM/BED: [facility]-1 : 54 AGE: 66 SEX: M ATTEND: Jean-Paul Ward od, MD ADM AUTHOR: Javy Hyman MD * ALL edits or amendments must be made on the [employer]/computer document * General Information Date of admission: Observation Start Date: 02/25/22 Date of admission: 02/25/22 Discharge date: 02/26/22 Discharge diagnosis: Generalized weakness, improving - Recurrent left foot osteomyelitis. - Infected wound left foot/Abscess left foot s/p I D. - Left foot pain, status post recent procedure. - Leukocytosis. improving - Hypokalemia-replaced - Hypomagnesemia-replaced. - Recently treated for bacteremia Enterococcal f aecalis. - History of hypertension. stable - History of hyperlipidemia. - History of depression, mood disorder. - History of diabetes type 2. stable - History of diabetic foot ulcer, nonhealing. - History of liver disease. Hospital course: Patient is a 66-year-old male with history of a left foot osteomyelitis, nonhealing wound on the left foot, recently joseph ender for the Enterococcal faecalis bacteremia, hyperte nsion, diabetes type 2, liver disease, heart disease , diabetic neuropathy, morbid obesity, a nd left foot surgery with podiatry Dr. Wharton, who was returned to the ED after discharge for the concerns of weakess, nausea and difficulty to move. Patient was admit ender for an observation. This evening patient is in a good condition with an s table vital signs. He reports improvements of his weakness. He is discharged h ome with home health and an instructiont to follow up with his pcp, podiatry and ID within one week. Free Text DxA P Notes Free text DxA P notes: ASSESSMENT AND PLAN: - Generalized weakness - Recurrent left foot osteomyelitis. - Infected wound left foot/Abscess left foot s/p I D. - Left foot pain, status post recent procedure. - Leukocytosis. - Hypokalemia-replaced - Hypomagnesemia-replaced. - Recently treated for bacteremia Enterococcal f aecalis. - History of hypertension. - History of hyperlipidemia. - History of depression, mood disorder. - History of diabetes type 2. - History of diabetic foot ulcer, nonhealing. - History of liver disease. PLAN: Floor. He needs Semi/Fully electric Hospital bed to all eviate Pain and assist with Position changes due to his Left foot OM. Will go home tomorrow with HH and ABX. Waiting for DME and Hospital Bed. S/p I D of left foot. Continue to monitor blood pressure and heart rat e. ID following for OM. Pain medication. Antiemetics. Follow labs and replace as needed. SCD for DVT prophylaxis. Continue home medication. Glycemic control, Accu-Cheks, sliding scale and diabetic diet. Monitor. Med Rec Med Rec Discharge meds: Continue taking these medications: ASPIRIN (ASPIRIN) 81 MG TAB.CHEW 81 MILLIGRAM ORAL DAILY. ATORVASTATIN (LIPITOR) 80 MG TAB 80 MILLIGRAM ORAL DAILY. CITALOPRAM (CeleXA) 40 MG TAB 40 MILLIGRAM ORAL DAILY. ENOXAPARIN (LOVENOX) 40 MG/0.4 ML DISP.SYRIN 40 MILLIGRAM SUBCUTANE. DAILY. Instructions: EVERY MORNING FOR 21 DAYS STARTING 12/30/2021 INSULIN LISPRO (HumaLOG) 100 UNIT/ML VIAL 10 UNITS SUBCUTANE. BEFORE BREAKFAST AND LUNCH. HYDROcodone/APAP (HYDROcodone/APAP 5/325) 5 MG-3 25 MG TAB 1 TABLET ORAL EVERY 6 HOURS NEEDED. as neede d for PAIN SCALE 7-10 INSULIN GLARGINE (LANTUS SOLOSTAR (15mL)) 100 UN IT/ML (3 ML) PEN.INJCTR 35 UNITS SUBCUTANEOUS BEDTIME. METOPROLOL TARTRATE (LOPRESSOR) 25 MG TAB 25 MILLIGRAM ORAL ONCE PER DAY TAMSULOSIN ER (FLOMAX) 0.4 MG CAP.SR.24H 0.4 MILLIGRAM ORAL DAILY. INSULIN LISPRO (HumaLOG) 100 UNIT/ML VIAL 10 UNITS SUBCUTANEOUS BEFORE DINNER. URSODIOL (ACTIGALL) 300 MG CAP TWICE DAILY. AMITRIPTYLINE (ELAVIL) 25 MG TAB 25 MILLIGRAM ORAL DAILY. OMEPRAZOLE ER (PriLOSEC) 40 MG CAP.DR 40 MILLIGRAM ORAL DAILY. GABAPENTIN (NEURONTIN) 300 MG CAP 300 MILLIGRAM ORAL BEDTIME. Qty = 30 traMADol (ULTRAM) 50 MG TAB 50 MILLIGRAM ORAL EVERY 4 HOURS NEEDED. as n eeded for PAIN SCALE 4-6 Qty = 30 FUROSEMIDE (LASIX) 40 MG TAB 40 MILLIGRAM ORAL DAILY. Qty = 30 FERROUS SULFATE (FEOSOL) 325 MG (65 MG IRON) TAB 325 MILLIGRAM ORAL TWICE DAILY. Qty = 60 cefTRIAXone (ROCEPHIN) 2 GRAM VIAL 2 GRAM INTRAVENOUS DAILY. Qty = 30 DAPTOmycin (CUBICIN) 500 MG VIAL 1,000 MILLIGRAM INTRAVENOUS EVERY 24 HOURS. Qty = 30 Objective General appearance: alert, awake, oriented, no a cute distress, pleasant, conversational, mental status normal, no respira tory distress Cardiovascular: normal capillary refill, normal heart sounds Respiratory: aerating well, clear to auscultatio n, symmetric expansion, no distress Abdomen: non-tender, normal bowel sounds, soft, no distention, no guarding Results Findings/Data: Laboratory Tests: 02/26 02/26 02/26 02/25 02/25 1119 0547 0130 2313 2040 Chemistry POC Glucose (70 - 110 MG/DL) 275 H 183 H Lactic Acid (0.4 - 1.9 mmol/L) 1.6 2.4 H 3.9 H 02/25 Chemistry Sodium (134 - 147 mEq/L) 133 L Potassium (3.4 - 5.0 mEq/L) 3.2 L Chloride (100 - 108 mEq/L) 99 L Carbon Dioxide (21 - 33 mEq/l) 22 Anion Gap (0 - 20) 15 BUN (7 - 18 mg/dL) 10 Creatinine (0.6 - 1.3 mg/dL) 1.2 Glomerular Filtr Rate (80 - 90) 66.3 L Glucose (70 - 110 mg/dL) 214 H POC Glucose (70 - 110 MG/DL) 199 H Calcium (8.0 - 10.5 mg/dL) 9.2 Magnesium (1.80 - 2.40 mg/dL) 1.82 Total Creatine Kinase (46 - 171 Units/L) 31 L Troponin I High Sens (0 - 54 ng/L) 5 B-Natriuretic Peptide (0 - 100 PG/ML) 25.0 Hematology WBC (4.5 - 11.0 x10 3/uL) 18.3 H RBC (4.00 - 5.60 x10 6/uL) 3.77 L Hgb (12.5 - 16.9 g/dL) 10.3 L Hct (37.5 - 50.7 %) 32.5 L MCV (81.0 - 99.0 fL) 86.2 MCH (27.0 - 33.0 pg) 27.3 MCHC (33.0 - 37.0 g/dL) 31.7 L RDW (11.5 - 14.5 %) 16.7 H Plt Count (150 - 400 x10 3/uL) 689 H MPV (7.0 - 9.0 fL) 11.3 H Neut % (Auto) (56.0 - 77.0 %) 42.2 L Lymph % (Auto) (14.0 - 32.0 %) 48.0 H Kern % (Auto) (4.8 - 9.0 %) 5.7 Eos % (Auto) (0.3 - 3.7 %) 3.3 Baso % (Auto) (0.0 - 2.0 %) 0.4 Neut # (Auto) (2.0 - 7.6 x10 3/uL) 7.73 H Lymph # (Auto) (1.0 - 3.8 x10 3/uL) 8.78 H Kern # (Auto) (0.1 - 0.8 x10 3/uL) 1.04 H Eos # (Auto) (0.0 - 0.2 x10 3/uL) 0.60 H Baso # (Auto) (0.0 - 0.2 x10 3/uL) 0.07 Abs Immat Gran (auto) (0.00 - 0.03 x10 3/uL) 0. 07 H Add Manual Diff NO Immature Gran % (0.0 - 2.0 %) 0.4 Nucleated RBC % (0 - 0 %) 0.0 Nucleated RBCs # (Man) (0.0 - 0.1 x10 3/uL) 0.0 0 Radiology data: Recent Impressions: RADIOLOGY - XR CHEST 1 V 02/26 2000 Report Impression - Status: SIGNED Entered: 02/25/20222036 IMPRESSION: 1. No acute cardiopulmonary findings. 2. Cardiomegaly. 3. Right upper extremity PICC line tip is within the right atrium. Impression By: Roberta Hartley Results: labs reviewed, vital signs reviewed Discharge Instructions PCP Discharge to: Home Health wPlan of Care Additional Discharge Routines: PCP Follow-Up, Co nsultant Follow-Up Diet: Diabetic Follow-up Appointments PCP follow-up: PCP: Hayden Yates DO PCP follow up timeframe: In 5 days Consulting provider 1: Provider 1: rOlin Charles MD Specialty: Infectious Disease Electronically Signed by Javy Hyman MD on at 1143 RPT #:[id number] END OF REPORT 2022-02-26 [facility] 13:50:00-00:00 [facility] ([facility]) Pharmacy Prog.Note-Vancomycin REPORT#:[id number] REPORT STATUS: Signed DATE:02/26/22 TIME: 1350 PATIENT: PEDRO MCGREGOR UNIT #: [id number] ROOM/BED: [place] [address] : 54 AGE: 66 SEX: M ATTEND: Jean-Paul Ward od, MD ADM AUTHOR: Teddy Mccoy [facility] * ALL edits or amendments must be made on the Material Mix/computer document * Vancomycin Vancomycin Medication Therapy Goal: AUC 400-600 mcg*hr/mL Indication for treatment: OM Site of infection: known Current therapy: Medication(s) Ordered: Anti-Infective Agents Sig/Josefa Start time Last Medication Dose Route Stop Time Status Admin Vancomycin HCl 1,500 MG Q24H 02/26 1330 AC Sodium Chloride 250 ML IV 03/05 1329 Ceftriaxone Sodium 2,000 MG Q24H 02/26 1315 AC Sodium Chloride 20 ML IV 03/26 1314 Miscellaneous 1 EACH ASDIR 02/26 1315 CKD Information IV 03/28 1314 Daptomycin 1,000 MG Q24H 02/26 1300 DC Sodium Chloride 50 ML IV 03/05 1259 Daptomycin 1,000 MG Q24H 02/26 1200 CAN IV 03/05 1159 Day of therapy: 1 (this admission) Weight: Actual weight (kg): 109 VS and I/O: Vital Signs Date Temp Pulse Resp B/P B/P Mean Pulse Ox FiO2 02/25-02/26 97.9-99.1 73-104 11-24 93-135/52-64 68-92 94-100 72 hours ending at 0700 02/26 0700 02/25 1900 02/25 0700 02/24 1900 02/23 07 1900 Intake Total Output 500 Total Balance -500 Output, 500 Urine Patient 109.091 kg Weight Weight Stated/Rep orted Measuremen t Method 72 Hour I O Total 02/26 0700 02/25 0700 02/24 0700 Intake Total Output Total 500 Balance -500 Labs: Laboratory Test : 02/25 1957 Chemistry BUN (7 - 18 mg/dL) 10 Creatinine (0.6 - 1.3 mg/dL) 1.2 Hematology WBC (4.5 - 11.0 x10 3/uL) 18.3 H Treatment plan: cont current regimen/dose Regimen: 66-year-old recent admission for foot infection, surgery with podiatry Dr. Wharton , discharged 02/25, after discharge avoid a car, patient had a presyncopal episode, felt weak, unable to move. Was called as a rapid response and brought to the ER. On arrival, patient described some na usea, denied any trauma, no report of trauma. Pharmacy consulted to dose van comycin for foot infection. Consulting Provider: Melvin Indication: OM Goal: AUC 400-600 mcg*hr/ml Concurrent Abx: Ceftriaxone 2gm q24h 02/26 A/P: * Tmax 99.1 (afebrile), WBC 18.3 (new leukocytos is) * Microbiology: 02/17 left a nkle aspirate cx - E coli (R-cefazolin), klebsiella oxytoca (I-cefazolin), E. faecalis (S-amp), 5 left ankle wound cx - GNR ( aerobic), gamma streptococcus (broth only), 5 left food wound - gram positive cocci, GNR x2, gamma streptococcus; no new micro this admission * Imagin/13 CXR - no acute cardiopulmonary f indings * Renal: BUN/Scr 11/13.2, eCrCL 80 ml/min (adjBW) , UOP 500 ml/24 hours * Regimen: Day 1 (this admis sawyer, planned through 03/28 per ID note from previous admission). Patient was main tained on regimen vancomycin 1500 mg IV q24h ( 13.8 mg/kg) with therapeutic trou gh of 14.2 mcg/ml on 02/24. Pt's last dose of vanc on previous admission was vancomycin 1500 mg IV 02/13 2 @1731. Considering patient received a dose of daptomycin prior to admission yesterday 02/25 and "missed" only one dose of vancomycin, plan to continue pr evious vancomycin regimen. * Monitoring: AUC monitoring with peak and troug h after 3rd dose of restarted regimen. Peak on 02/28 and trough on 03/01 (levels not yet ordered). Pharmacy will continue to follow and monitor. Th moe pearson for the consult, Dr. Charles. at 1352 RPT #:[id number] END OF REPORT 2022-02-26 [facility] 13:03:00-00:00 [facility] ([facility]) Hospitalist History Physical REPORT#:[id number] REPORT STATUS: Signed DATE:02/26/22 TIME: 1303 PATIENT: PEDRO MCGREGOR UNIT #: [id number] ROOM/BED: [place] [address] : 54 AGE: 66 SEX: M ATTEND: Max Ward MD ADM AUTHOR: Javy Hyman MD * ALL edits or amendments must be made on the el [employer] Mon[employer]/computer document * History of Present Illness HPI Chief complaint: Patient is a 66-year-old male with history of a left foot osteomyelitis, nonhealing wound on the left foot, recently joseph ender for the Enterococcal faecalis bacteremia, hyperte nsion, diabetes type 2, liver disease, heart disease , diabetic neuropathy, morbid obesity, a nd left foot surgery with podiatry Dr. Wharton, who returned to the ED after discharge fo r the concerns of weakess, nausea and difficulty to move. History Past medical history: Reports: Depression/mood disorder, Hypertension. Additional medical history: HTN, HLD, Dm type II, Diabetic foot ulcer, Liver disease Alcohol use: Denies EtOH use Drug use: Denies recreational drugs Smoking status for patients 13 years old or olde r: Former Smoker Medication/Allergy-Vaccine Hx Allergies: Coded Allergies: hydrocodone (Mild, NAUSIATED 01/05/22) Review of Systems All systems rev neg: except as marked Objective Results Findings/Data: Laboratory Tests 02/26 02/26 02/26 02/25 02/25 1119 0540 0130 2313 2040 Chemistry POC Glucose (70 - 110 MG/DL) 275 H 183 H Lactic Acid (0.4 - 1.9 mmol/L) 1.6 2.4 H 3.9 H 02/25 Chemistry Sodium (134 - 147 mEq/L) 133 L Potassium (3.4 - 5.0 mEq/L) 3.2 L Chloride (100 - 108 mEq/L) 99 L Carbon Dioxide (21 - 33 mEq/l) 22 Anion Gap (0 - 20) 15 BUN (7 - 18 mg/dL) 10 Creatinine (0.6 - 1.3 mg/dL) 1.2 Glomerular Filtr Rate (80 - 90) 66.3 L Glucose (70 - 110 mg/dL) 214 H POC Glucose (70 - 110 MG/DL) 199 H Calcium (8.0 - 10.5 mg/dL) 9.2 Magnesium (1.80 - 2.40 mg/dL) 1.82 Total Creatine Kinase (46 - 171 Units/L) 31 L Troponin I High Sens (0 - 54 ng/L) 5 B-Natriuretic Peptide (0 - 100 PG/ML) 25.0 Laboratory Tests 02/25 1957 Hematology WBC (4.5 - 11.0 x10 3/uL) 18.3 H RBC (4.00 - 5.60 x10 6/uL) 3.77 L Hgb (12.5 - 16.9 g/dL) 10.3 L Hct (37.5 - 50.7 %) 32.5 L MCV (81.0 - 99.0 fL) 86.2 MCH (27.0 - 33.0 pg) 27.3 MCHC (33.0 - 37.0 g/dL) 31.7 L RDW (11.5 - 14.5 %) 16.7 H Plt Count (150 - 400 x10 3/uL) 689 H MPV (7.0 - 9.0 fL) 11.3 H Neut % (Auto) (56.0 - 77.0 %) 42.2 L Lymph % (Auto) (14.0 - 32.0 %) 48.0 H Kern % (Auto) (4.8 - 9.0 %) 5.7 Eos % (Auto) (0.3 - 3.7 %) 3.3 Baso % (Auto) (0.0 - 2.0 %) 0.4 Neut # (Auto) (2.0 - 7.6 x10 3/uL) 7.73 H Lymph # (Auto) (1.0 - 3.8 x10 3/uL) 8.78 H Kern # (Auto) (0.1 - 0.8 x10 3/uL) 1.04 H Eos # (Auto) (0.0 - 0.2 x10 3/uL) 0.60 H Baso # (Auto) (0.0 - 0.2 x10 3/uL) 0.07 Abs Immat Gran (auto) (0.00 - 0.03 x10 3/uL) 0. 07 H Add Manual Diff NO Immature Gran % (0.0 - 2.0 %) 0.4 Nucleated RBC % (0 - 0 %) 0.0 Nucleated RBCs # (Man) (0.0 - 0.1 x10 3/uL) 0.0 0 Radiology data: Recent Impressions: RADIOLOGY - XR CHEST 1 V 02/26 2000 Report Impression - Status: SIGNED Entered: 02/25/20222036 IMPRESSION: 1. No acute cardiopulmonary findings. 2. Cardiomegaly. 3. Right upper extremity PICC line tip is within the right atrium. Impression By: Medardo - Roberta Flores Results: labs reviewed, vital signs reviewed Diagnosis, Assessment Plan Free Text DxA P Notes Free Text DxA P Notes: ASSESSMENT AND PLAN: - Generalized weakness - Recurrent left foot osteomyelitis. - Infected wound left foot/Abscess left foot s/p I D. - Left foot pain, status post recent procedure. - Leukocytosis. - Hypokalemia-replaced - Hypomagnesemia-replaced. - Recently treated for bacteremia Enterococcal f aecalis. - History of hypertension. - History of hyperlipidemia. - History of depression, mood disorder. - History of diabetes type 2. - History of diabetic foot ulcer, nonhealing. - History of liver disease. PLAN: Floor. He needs Semi/Fully electric Hospital bed to all eviate Pain and assist with Position changes due to his Left foot OM. Will go home tomorrow with HH and ABX. Waiting for DME and Hospital Bed. S/p I D of left foot. Continue to monitor blood pressure and heart rat e. ID following for OM. Pain medication. Antiemetics. Follow labs and replace as needed. SCD for DVT prophylaxis. Continue home medication. Glycemic control, Accu-Cheks, sliding scale and diabetic diet. Monitor. Electronically Signed by Javy Hyman MD on at 1848 RPT #:[id number] END OF REPORT 2022-02-25 [facility] 22:20:00-00:00 [facility] ([facility]) EMERGENCY PROVIDER REPORT REPORT#:[id number] REPORT STATUS: Signed DATE:02/25/22 TIME: 2219 PATIENT: PEDRO MCGREGOR UNIT #: [id number] ROOM/BED: [place] [address] AGE: 66 SEX: M PCP PHYS: Hayden Yates DO SERVICE AUTHOR: Rohit Perkins * ALL edits or amendments must be made on the el [employer]ass Monkey/computer document * HPI-Dizziness/Weakness Free Text HPI Notes Free Text HPI Notes 66-year-old recent admission for foot infection, surgery with podiatry Dr. Wharton , discharged today, after discharge avoid a car, patient had a presyncopal episode, felt weak, unable to move. Was called as a rapid response and brought to the ER. On arrival, patient described some na usea, denied any trauma, no report of trauma. Denies any chest pain, shortness of breath. Repo rts generalized fatigue. Discussion with son, he is significantly concerned that he will not be able to adequately care for his family member at home. General Initial Greet Date/Time 02/25/221936 Presentation Chief Complaint Feeling unsteady Review of Systems Free Text ROS Notes Free Text ROS Notes Review of systems was perfor med, pertinent positives and negatives noted in HPI Past Medical History - Adult Stated Complaint DIZZINESS Allergies Coded Allergies: hydrocodone (Mild, NAUSIATED 01/05/22) Home Medications Active Scripts GABAPENTIN (NEURONTIN) 300 MG PO BEDTIME GABAPENTIN (NEURONTIN) 300 MG PO BEDTIME #30 CA P Prov: 01/14/22 traMADol (ULTRAM) 50 MG PO Q4H PRN PRN PAIN SCAL E 4-6 traMADol (ULTRAM) 50 MG PO Q4H PRN PRN PAIN SCA LE 4-6 #30 TAB Prov: 01/14/22 FUROSEMIDE (LASIX) 40 MG PO DAILY FUROSEMIDE (LASIX) 40 MG PO DAILY #30 TAB Prov: 01/14/22 FERROUS SULFATE (FEOSOL) 325 MG PO BID FERROUS SULFATE (FEOSOL) 325 MG PO BID #60 TABS Ref 1 Prov: 01/14/22 cefTRIAXone (ROCEPHIN) 2 GM IV DAILY cefTRIAXone (ROCEPHIN) 2 GM IV DAILY #30 GM Prov: 02/23/22 DAPTOmycin (CUBICIN) 1,000 MG IV Q24H DAPTOmycin (CUBICIN) 1,000 MG IV Q24H #30 EACH Prov: 02/23/22 Discontinued Scripts PIPERACILLIN/TAZOBACTAM (ZOSYN) 3.375 GM IV Q8H PIPERACILLIN/TAZOBACTAM (ZOSYN) 3.375 GM IV Q8H #30 GM Prov: 01/14/22 DC: 02/23/22 0829 Change of medication Reported Medications URSODIOL (ACTIGALL) AMITRIPTYLINE (ELAVIL) 25 MG PO DAILY OMEPRAZOLE ER (PriLOSEC) 40 MG PO DAILY ENOXAPARIN (LOVENOX) 40 MG SQ DAILY METOPROLOL TARTRATE (LOPRESSOR) 25 MG PO ONCE PE R DAY ASPIRIN 81 MG PO DAILY ATORVASTATIN (LIPITOR) 80 MG PO DAILY CITALOPRAM (CeleXA) 40 MG PO DAILY INSULIN LISPRO (HumaLOG) 10 UNITS SQ AC BK GRACE HYDROcodone/APAP (HYDROcodone/APAP 5/325 ) 1 TAB PO Q6H PRN PRN PAIN SCALE 7-10 INSULIN GLARGINE (LANTUS SOLOSTAR (15mL)) 35 UNI TS SUBQ BEDTIME TAMSULOSIN ER (FLOMAX) 0.4 MG PO DAILY INSULIN LISPRO (HumaLOG) 10 UNITS SUBQ AC DIN Past Medical History: Reports: Depression/mood disorder, Hypertension. Additional Medical History HTN, HLD, Dm type II, Diabetic foot ulcer, Liver disease Alcohol Use Denies EtOH use Drug Use Denies recreational drugs Smoking status for patients 13 years old or olde r: Former Smoker Physical Exam Vital Signs Vital Signs First Documented: Result Date Time Pulse Ox 100 02/25 1942 B/P 135/64 02/25 1942 B/P Mean 87 02/25 1942 O2 Delivery Room air 02/25 1942 Temp 36.7 02/25 1942 Pulse 96 02/25 1942 Resp 20 02/25 1942 Last Documented: Result Date Time Pulse Ox 99 02/25 2314 B/P 123/57 02/25 2314 B/P Mean 82 02/25 2314 Pulse 82 02/25 2314 Resp 15 02/25 2314 O2 Delivery Room air 02/25 1942 Temp 36.7 02/25 1942 Review of Vital Signs Reviewed Free Text PE Notes Free Text PE Notes GEN/CONST: awake, alert MS HEAD: normocephalic EYES: EOMI, no scleral icterus EARS/NOSE/THROAT: airway patent, mucous membrane s dry MS NECK: supple, full range of motion RESPIRATORY/CHEST: breath sounds equal bilateral ly, no respiratory distress CARDIOVASCULAR: heart rate normal, regular rate and rhythm ABDOMEN/GI: no distension, soft and nontender MS BACK: painless range of motion, non-tender MS UPPER EXT: inspection normal, no deformity MS LOWER EXT: Left lower leg with Ex-Fix, well-appearing, no purulent discharge, no erythema SKIN: warm, dry, intact NEURO: normal speech, no motor deficits Interpretation Diagnostics Lab Results Interpretation Results Laboratory Tests 02/25/221957: [Embedded Image Not Available] Laboratory Tests: 02/25 Chemistry Sodium (134 - 147 mEq/L) 133 L Potassium (3.4 - 5.0 mEq/L) 3.2 L Chloride (100 - 108 mEq/L) 99 L Carbon Dioxide (21 - 33 mEq/l) 22 Anion Gap (0 - 20) 15 BUN (7 - 18 mg/dL) 10 Creatinine (0.6 - 1.3 mg/dL) 1.2 Glomerular Filtr Rate (80 - 90) 66.3 L Glucose (70 - 110 mg/dL) 214 H POC Glucose (70 - 110 MG/DL) 199 H Lactic Acid (0.4 - 1.9 mmol/l) 2.4 H 3.9 H Calcium (8.0 - 10.5 mg/dL) 9.2 Magnesium (1.80 - 2.40 mg/dL) 1.82 Total Creatine Kinase (46 - 171 Units/L) 31 L Troponin I High Sens (0 - 54 ng/L) 5 B-Natriuretic Peptide (0 - 100 PG/ML) 25.0 Hematology WBC (4.5 - 11.0 x10 3/uL) 18.3 H RBC (4.00 - 5.60 x10 6/uL) 3.77 L Hgb (12.5 - 16.9 g/dL) 10.3 L Hct (37.5 - 50.7 %) 32.5 L MCV (81.0 - 99.0 fL) 86.2 MCH (27.0 - 33.0 pg) 27.3 MCHC (33.0 - 37.0 g/dL) 31.7 L RDW (11.5 - 14.5 %) 16.7 H Plt Count (150 - 400 x10 3/uL) 689 H MPV (7.0 - 9.0 fL) 11.3 H Neut % (Auto) (56.0 - 77.0 %) 42.2 L Lymph % (Auto) (14.0 - 32.0 %) 48.0 H Kern % (Auto) (4.8 - 9.0 %) 5.7 Eos % (Auto) (0.3 - 3.7 %) 3.3 Baso % (Auto) (0.0 - 2.0 %) 0.4 Neut # (Auto) (2.0 - 7.6 x10 3/uL) 7.73 H Lymph # (Auto) (1.0 - 3.8 x10 3/uL) 8.78 H Kern # (Auto) (0.1 - 0.8 x10 3/uL) 1.04 H Eos # (Auto) (0.0 - 0.2 x10 3/uL) 0.60 H Baso # (Auto) (0.0 - 0.2 x10 3/uL) 0.07 Abs Immat Gran (auto) (0.00 - 0.03 0.07 H x10 3/uL) Add Manual Diff NO Immature Gran % (0.0 - 2.0 %) 0.4 Nucleated RBC % (0 - 0 %) 0.0 Nucleated RBCs # (Man) (0.0 - 0.1 0.00 x10 3/uL) Recent Impressions: RADIOLOGY - XR CHEST 1 V 02/26 2000 Report Impression - Status: SIGNED Entered: 02/25/20222036 IMPRESSION: 1. No acute cardiopulmonary findings. 2. Cardiomegaly. 3. Right upper extremity PICC line tip is within the right atrium. Impression By: Medardo - Ariel Lim M.D . ECG #1 Interpretation Text/Dict Note EKG from 02/25/2022 at 1947, performed for dragan ss Interpreted by myself, ED physician Sinus rhythm, rate 95 Normal axis Prolonged TN interval and QTc No ST elevation or ST depression suggestive of i schemia Re-Evaluation MDM Free Text MDM Notes Free Text MDM Notes Problems addressed in this visit: Cellulitis of left foot, fracture of left lower extremity Differential diagnosis, workup, and ruled out di agnoses: 66-year-old, here after inpatient stay for manag ement of left foot wound, infection, repair orthopedic injuries, in process of being discharged, unable to get in car due to weakness, concern for presynco pe, generalized weakness. Complete sepsis bundle not utilized due to patie nt with inpatient fluids and antibiotics along with cultu res administered up to the day of presentation here (patient had left the hospital, but had not left hospital property prior to being brought to the ER) Patient with IV antibiotics administered inpatie nt, with plan for outpatient antibiotic therapy, so no im mediate antibiotics given here given prior coverage. Patient appears euvolemic, generally weak. Pain, will perform broad star luation for changing metabolic, possible infectious status, EKG Differential includes but not limited to general ized fatigue, deconditioning, significant infection burden, metabolic derangem ent, less likely cardiac or neurologic/CVA Considered CT head, but therese ent with reassuring neuro exam, no focal findings on exam -- Patient with increasing lactic acid and white he lp, concerning for infection, patient already on broad ant ibiotic therapy, will admit for further monitoring, treatment of infection, possible tension Test Interpretation: EKG as above Medications administered/planned for ongoing car e: IV crystalloid 1 L Independent history was obtained from: Son at bedside, patient too weak to give detaile d history External notes reviewed: Hospitalist discharge note 02/25/2022 Discussion with other clinicians/personnel bj escalona tests or management included: Discussed with hospitalist the patient's course and change in status since discharge, agreeable to plan for admission Social determinantes of health impacting the car e/treatment: Patient with limited family support at home,, co ncern for ability to maintain condition with resources, encouraged that home h ealth set up, DME acquired ED Course Medication(s) Ordered Medication(s) Ordered: Electrolytic, Caloric, And Tiesha Sig/Josefa Start time Last Medication Dose Route Stop Time Status Admin Sodium Chloride 1,000 ML .Q10H 02/25 2345 AC IV 02/26 2230 2349 Lactated Ringer's 1,000 ML X1ED STA 02/25 2226 DC 02/25 IV 02/25 2326 2247 Gastrointestinal Drugs Sig/Josefa Start time Last Medication Dose Route Stop Time Status Admin Ondansetron HCl 4 MG Q6H PRN PRN 02/25 2345 AC 02/26 IV 02/26 223 1033 Ondansetron HCl 4 MG X1ED STA 02/25 2226 DC SL 02/25 2227 224 Metoclopramide HCl 10 MG X1ED STA 02/25 2015 D C 02/25 IV 02/25 Patient Discharge Departure Vital Signs/Condition Vital Signs First Documented: Result Date Time Pulse Ox 100 02/25 1942 B/P 135/64 02/25 1942 B/P Mean 87 02/25 1942 O2 Delivery Room air 02/25 1942 Temp 36.7 02/25 1942 Pulse 96 02/25 1942 Resp 20 02/25 1942 Last Documented: Result Date Time Pulse Ox 99 02/25 2314 B/P 123/57 02/25 2314 B/P Mean 82 02/25 2314 Pulse 82 02/25 2314 Resp 15 02/25 2314 O2 Delivery Room air 02/25 1942 Temp 36.7 02/25 1942 All vital signs available at the time of this en try have been reviewed. Condition Guarded Clinical Impression Clinical Impression Primary Impression: Pre-syncope Time of Impression 2329 Disposition Decision Admit Admit Physician Name Chelo Ward MD )( Admission Accepts Yes )( Accepted Time 2330 )( Accepted Date 02/25/22 Call Information will see patient, agrees with plan Discharge/Care Plan Admit Note I have spoken with the patie nt and/or caregivers. I have explained the patient's condition, diagnoses and nurys atment plan based on the information available to me at this time. I have answered the patient's and/ or caregiver's questions and addressed any concerns. The patient and/or careg tabitha have as good an understanding of the patient 's diagnosis, condition and treatment plan as can be expected at this point. The patient has been stabilized within the capability of the emergency department. The patient wi ll be transported for further care and management or will be moved to an observation or inpatient service. I have communicated with the staff or medical p loulouer taking over this patient's care. at 1635 RPT #:[id number] END OF REPORT 2022-02-25 [facility] 15:23:00-00:00 [facility] ([facility] Podiatry Progress Note REPORT#:[id number] REPORT STATUS: Signed DATE:02/25/22 TIME: 1522 PATIENT: PEDRO MCGREGOR UNIT #: [id number] ROOM/BED: [place] [address] : 54 AGE: 66 SEX: M ATTEND: Jean-Paul Ward od, MD ADM AUTHOR: Faby Wharton DPEvan * ALL edits or amendments must be made on the Material Mix/computer document * Subjective Chief complaint: foot infection HPI: Pt seen at bedside. Denies any new issues. Objective General VS: Last Documented: Result Date Time Pulse Ox 97 02/25 1149 B/P 100/56 02/25 1149 B/P Mean 70.8 02/25 1149 O2 Delivery Room air 02/25 1149 Temp 36.7 02/25 1149 Pulse 63 02/25 1149 Resp 18 02/25 1149 O2 Flow Rate 6 02/17 1643 PATIENT WEIGHT: Weight (lb): 230 Weight (oz): 2.6 Weight (kg): 104.400 Medications: Active Meds + DC'd Last 24 Hrs Daptomycin (CUBICIN 500MG) 1,000 MG ONCE ONE IV (CKD) Sodium Chloride (SODIUM CHLORIDE 0.9%) 50 ML Daptomycin (CUBICIN 500MG) 1,000 MG ONCE ONE IV (CAN) Vancomycin HCl (VANCOMYCIN HCL) 1,000 MG ASDIR I RR Sodium Chloride (SODIUM CHLORIDE IRRIG BAG) 1,0 00 ML Vancomycin HCl (VANCOMYCIN HCL) 1,500 MG Q24H I V Sodium Chloride (SODIUM CHLORIDE 0.9%) 250 ML Oxycodone/Acetaminophen (PERCOCET 5/325MG TAB) 2 TAB Q4H PRN PRN PO Sodium Hypochlorite (DAKIN'S 1/4 STR (0.125%) 47 3ML) 1 APPLIC MOWEFR TOPICAL Ceftriaxone Sodium (ROCEPHIN) 2,000 MG Q24H IV Sodium Chloride (SODIUM CHLORIDE) 20 ML Miscellaneous Information (VANCOMYCIN PHARMACY T O DOSE) 1 EACH ASDIR IV (CKD) Sterile Water (WATER FOR IRRIGATION) DRESSING CH SHERICE ASDIR PRN IRR Glucagon (GLUCAGON) 1 MG ASDIR PRN IM Citalopram Hydrobromide (CeleXA) 20 MG DAILY PO Duloxetine HCl (CYMBALTA) 30 MG DAILY PO Furosemide (LASIX) 40 MG DAILY PO Lactulose (LACTULOSE) 20 GM BID PO Tamsulosin HCl (Flomax 0.4 mg) 0.4 MG DAILY PO Aspirin (ASPIRIN) 81 MG C BK PO Insulin Human Lispro (HUMALOG) 10 UNIT AC BK GRACE SUBQ Pantoprazole (PROTONIX) 40 MG DAILY 0600 PO Atorvastatin Calcium (LIPITOR) 80 MG BEDTIME PO Ferrous Sulfate (FERROUS SULFATE) 325 MG BID PO Gabapentin (NEURONTIN) 300 MG BEDTIME PO Ursodiol (ActigalL) 300 MG BID PO Docusate Sodium (COLACE) 100 MG DAILY PO Acetaminophen (TYLENOL) 650 MG Q4H PRN PRN PO Enoxaparin Sodium (lovENOX) 40 MG DAILY 1700 SUB Q Metoprolol Tartrate (LOPRESSOR) 25 MG DAILY PO Insulin Human Lispro (HUMALOG) 0 AC HS SUBQ Insulin Human Lispro (HUMALOG) 10 UNIT AC DIN MARR BQ Hydralazine HCl (APRESOLINE) 10 MG Q6H PRN PRN I V Ondansetron HCl (ZOFRAN) 4 MG Q4H PRN PRN IV I O: 24 hour I O ending at 0700: 13 0700 01/12 1900 Intake Total Output Total 1450 1500 Balance -1450 -1500 Output, Urine 1450 1500 Dietitian nutrition assessment The data set between the solid lines has been im ported from the dietitian's assessment. BMI Calculated: 29.0 Nutrition related diagnosis: Nutrition diagnosis details: Nutrition problem: Nutrition etiology: Nutrition signs and symptoms: Nutrition prescription: Dietitian name: Assessment completed: Physical Exam Wound/incision: Location: Left foot DP and PT pulses 1/4 barely palpable. Light touch and protective sensation greatly de creased left foot. Extensive wound from the medial aspect of the l eft hindfoot to the medial aspect of the left midfoot. Wide open with thick purulent drainage very mal odorous. Ulcer plantar left first metatarsal head is sup erficial. Erythema of the left foot. No crepitation External fixator is in place. Foot is underneath the leg.. LE vascular pulse assess: 1+ L posterior tibialis, 1+ L dorsalis pedis Results Findings/Data: Laboratory Tests: 02/25 02/25 02/24 02/24 02/24 1228 0739 1921 1710 1603 Chemistry Creatinine (0.6 - 1.3 mg/dL) 1.1 POC Glucose (70 - 110 MG/DL) 275 H 233 H 143 H 208 H Toxicology Vancomycin Trough (10.0 - 20.0 mcg/mL) 14.2 Results: labs reviewed Diagnosis, Assessment Plan Free Text A P: External fixator left lower extremity Cellulitis and draining wound medial left foot Diabetes with peripheral neuropathy Superficial ulcer left forefoot Status post external fixation application Wound left medial ankle: Apply vera flow wound V AC every Monday. NWV REGULAR WOUND VAC WITH DC HOME IV abx per ID Electronically Signed by Faby Wharton DPM on 08/05 at 0015 RPT #:[id number] END OF REPORT 2022-02-25 [facility] 13:44:00-00:00 [facility] ([facility]) Pain Management Progress Note REPORT#:[id number] REPORT STATUS: Signed DATE:02/25/22 TIME: 1344 PATIENT: PEDRO MCGREGOR UNIT #: [id number] ROOM/BED: [place] [id number] : 54 AGE: 66 SEX: M ATTEND: Jean-Paul Ward od, MD ADM AUTHOR: Emy Mayes NP * ALL edits or amendments must be made on the Material Mix/computer document * Subjective Chief complaint: Foot Wound. Interval History 02/25/2021 Patient chart, note and event reviewed Patient is laying in bed, fully alert, awake hem odynamically stable S/P debridment Left ankle Wound Vac in place bhardwaj in place Pain is controlled Mood is ok Sleep is ok. Denied insomnia No constipation Review of Systems Additional notes: Review was conducted and was negative except for what's noted in the HPI and Medical History. The following systems were revi ewed: Constitutional, cardiovascular, respiratory, gastrointes tinal, genitourinary, musculoskeletal, neurologic, psychiatric, endocrinological, and h ematological. Objective General VS/I O: Vital Signs Date Temp Pulse Resp B/P B/P Mean Pulse Ox FiO2 02/24-02/25 97.5-98.6 63-84 16-18 100-136/56-70 70.8-92.0 94-98 Last Documented: Result Date Time Pulse Ox 97 02/25 1149 B/P 100/56 02/25 1149 B/P Mean 70.8 02/25 1149 O2 Delivery Room air 02/25 1149 Temp 98.1 02/25 1149 Pulse 63 02/25 1149 Resp 18 02/25 1149 O2 Flow Rate 6 02/17 1643 24 hour I O ending at 0700: 02/25 0700 02/24 1900 Intake Total Output Total 1450 1500 Balance -1450 -1500 Output, Urine 1450 1500 PATIENT WEIGHT: Weight (lb): 230 Weight (oz): 2.6 Weight (kg): 104.400 Medications: Active Meds + DC'd Last 24 Hrs Vancomycin HCl (VANCOMYCIN HCL) 1,000 MG ASDIR I RR Sodium Chloride (SODIUM CHLORIDE IRRIG BAG) 1,0 00 ML Vancomycin HCl (VANCOMYCIN HCL) 1,500 MG Q24H IV Sodium Chloride (SODIUM CHLORIDE 0.9%) 250 ML Oxycodone/Acetaminophen (PERCOCET 5/325MG TAB) 2 TAB Q4H PRN PRN PO Sodium Hypochlorite (DAKIN'S 1/4 STR (0.125%) 47 3ML) 1 APPLIC MOWEFR TOPICAL Ceftriaxone Sodium (ROCEPHIN) 2,000 MG Q24H IV Sodium Chloride (SODIUM CHLORIDE) 20 ML Miscellaneous Information (VANCOMYCIN PHARMACY T O DOSE) 1 EACH ASDIR IV (CKD) Sterile Water (WATER FOR IRRIGATION) DRESSING CH SHERICE ASDIR PRN IRR Glucagon (GLUCAGON) 1 MG ASDIR PRN IM Citalopram Hydrobromide (CeleXA) 20 MG DAILY PO Duloxetine HCl (CYMBALTA) 30 MG DAILY PO Furosemide (LASIX) 40 MG DAILY PO Lactulose (LACTULOSE) 20 GM BID PO Tamsulosin HCl (Flomax 0.4 mg) 0.4 MG DAILY PO Aspirin (ASPIRIN) 81 MG C BK PO Insulin Human Lispro (HUMALOG) 10 UNIT AC BK GRACE SUBQ Pantoprazole (PROTONIX) 40 MG DAILY 0600 PO Atorvastatin Calcium (LIPITOR) 80 MG BEDTIME PO Ferrous Sulfate (FERROUS SULFATE) 325 MG BID PO Gabapentin (NEURONTIN) 300 MG BEDTIME PO Ursodiol (ActigalL) 300 MG BID PO Docusate Sodium (COLACE) 100 MG DAILY PO Acetaminophen (TYLENOL) 650 MG Q4H PRN PRN PO Enoxaparin Sodium (lovENOX) 40 MG DAILY 1700 SUB Q Metoprolol Tartrate (LOPRESSOR) 25 MG DAILY PO Insulin Human Lispro (HUMALOG) 0 AC HS SUBQ Insulin Human Lispro (HUMALOG) 10 UNIT AC DIN MARR BQ Hydralazine HCl (APRESOLINE) 10 MG Q6H PRN PRN I V Ondansetron HCl (ZOFRAN) 4 MG Q4H PRN PRN IV Dietitian nutrition assessment The data set between the solid lines has been im ported from the dietitian's assessment. BMI Calculated: 29.0 Nutrition related diagnosis: Nutrition diagnosis details: Nutrition problem: Nutrition etiology: Nutrition signs and symptoms: Nutrition prescription: Dietitian name: Assessment completed: Physical Exam General appearance: alert, awake, oriented, no a cute distress, pleasant, conversational, mental status normal, no respira tory distress Wound/Incision: Location: left ankle debridment. wound vac in place Head/eyes: atraumatic, PERRLA Neck: full range of motion, non-tender Cardiovascular: normal capillary refill, regular rate rhythm Abdomen: soft Extremities: moves all (left leg wound/ external fix) Neuro/METAL WELDER: alert Diagnosis, Assessment Plan Free text A P: Assessment/Plan Daily Plan 02/25/2021 Patient assessed. Pain is controlled with contin ue current pain medical management. Continue IV antibiotics per ID. Plan 1. Acute complex pain syndrome 2/2 left leg oste omilitis -oxycodone 10/325 q4H PRN for pain 7-10 first l ine -Tylenol 650 mg PO Q6h for pain 1-3 2. Neuropathic pain -gabapentin 300mg PO Bedtime -cymbalta 30mg twice a day 3. Muscle spasm flexeril 5mg po TID 4. Bowel Regimen - colace -continue pain regimen as above -Monitor for S/E such as AMS , Lethargy/sedation, changes in respiratory function -Continue BP parameters -APS( Acute Pain services) will continue to foll ow -please call pain management for any pain-relate d concerns or questions Goal: Daily pain control to improve function and /or quality of life ([x]) Pain control until condition naturally res olves ([x]) Inpatient pain control ([x]) Improved sleep cycle ([x]) all narcotics medications will be adjusted according to the patient's medical condition during the hospital stay Alll diagnostic images/lab and medical records d uring the course of this admission as well as ASSISTANT CHIEF TRAIN DISPATCHER records reviewed Risk versus benefit of opiate medications: All r isk and benefit were reviewed with the patient and family members, risk not limited to respiratory depression, accidental overdose, risk of fall, altered menta l status, constipation, dependency, addiction, withdrawn, sudden . Plan discussed with: The pain plan of ca re has been discussed with the patient and the nursing staff. Patient is in agr eement with the following plan of care and wishes to proceed. Quest ions and concerns have been answered to the patient' s satisfaction. Patient has verbalized understan iqra. Plan discussed with: patient Electronically Signed by Emy Mayes NP on 0 02/25/22 at 1629 RPT #:[id number] END OF REPORT 2022-02-25 [facility] 10:24:00-00:00 [facility] ([facility]) Infectious Dis. Progress Note REPORT#:[id number] REPORT STATUS: Signed DATE:02/25/22 TIME: 1024 PATIENT: PEDRO MCGREGOR UNIT #: [id number] ROOM/BED: [place] [id number] : 54 AGE: 66 SEX: M ATTEND: Jean-Paul Ward od, MD ADM AUTHOR: Mele So NP * ALL edits or amendments must be made on the [email or web address] document * Subjective Chief complaint: Follow-up on left foot osteomyelitis HPI: Patient denies acute or new complaints today. No major overnight events. Patient reports: Yes: bowel movement, feeling better. No: complaints, abdominal pain, back pain, burning with urination, cough, diarrhea, fever, headache, nausea, pain, pain controlled, shortness of breath, vomiting, wheez ing. Nursing reports: No: complaints. Review of Systems All systems rev neg: except as marked Objective General VS/I O: Vital Signs Date Temp Pulse Resp B/P B/P Mean Pulse Ox FiO2 02/24-02/25 97.5-98.6 63-84 16-18 100-136/56-70 70.8-92.0 94-98 Last Documented: Result Date Time Pulse Ox 97 02/25 1149 B/P 100/56 02/25 1149 B/P Mean 70.8 02/25 1149 O2 Delivery Room air 02/25 1149 Temp 98.1 02/25 1149 Pulse 63 02/25 1149 Resp 18 02/25 1149 O2 Flow Rate 6 02/17 1643 Vital Signs: Date Time Temp Pulse Resp B/P B/P Pulse O2 O2 F low FiO2 Mean Ox Delivery Rate 02/25 1149 98.1 63 18 100/56 70.8 97 Room air 02/25 0710 97.5 72 18 136/70 92.0 96 Room air 02/25 0406 97.5 79 18 112/66 81.2 97 Room air 02/25 0000 98.6 84 16 108/58 74.2 94 Room air 02/24 1922 97.9 69 17 109/66 80.1 98 Room air 02/24 1639 98.4 65 18 113/62 79.1 97 Room air 24 hour I O ending at 0700: 02/25 0700 02/24 1900 Intake Total Output Total 1450 1500 Balance -1450 -1500 Output, Urine 1450 1500 PATIENT WEIGHT: Weight (lb): 230 Weight (oz): 2.6 Weight (kg): 104.400 Physical Exam General appearance: alert, awake, oriented Wound/incision: Location: left foot wound + external fixator and VAC in pl mg Head/Eyes: atraumatic, clear cornea, EOMI, tra l conjunctiva/sclera, normal eyelids/periorb, normocephalic, PERRL ENT: moist mucosal membranes Neck: full range of motion Cardiovascular: regular rate rhythm, no murmur Respiratory: clear to auscultation, no distress Abdomen: non-tender, soft, no distention Extremities: no clubbing, no cyanosis, left lowe r extremity in an external fixator Neuro/METAL WELDER: alert, oriented X 3 Skin: dry, no rash Results Findings/Data: Laboratory Tests 02/25 02/24 02/24 02/24 02/24 0739 1921 1710 1603 1153 Chemistry Creatinine (0.6 - 1.3 mg/dL) 1.1 POC Glucose (70 - 110 MG/DL) 233 H 143 H 208 H 291 H Laboratory Tests 02/24 1603 Toxicology Vancomycin Trough (10.0 - 20.0 mcg/mL) 14.2 Results: labs reviewed, vital signs reviewed, vi maida signs stable Diagnosis, Assessment Plan Free Text A P: Assessment: *Osteomyelitis and septic arthritis of the left foot and ankle *HTN *Type 2 diabetes with neuropathy and nephropathy *Peripheral vascular disease -Went back to the OR 02/17/22 and is now s/p I D. Overall findings of necrotic tendon, necrotic bone noted. -Surgical specimen with E coli, Klesbiella oxyto ca and E faecalis Plan: -S/p treatment with piperaci llin-tazobactam till 02/11/2022 for prior isolates ( E. coli and E faecalis) from December. -Based on recent cultures from this admission, a ntibiotic therapy switched to ceftriaxone and vancomycin on 02/14 through 03/28 CM orders placed for HH/IV abx on 02/21 (Dapto/Nghia ephin) RUE PICC line Patient to follow-up with ID clinic in 2 to 3 we eks after discharge Pt seen and examined with Dr Charles Electronically Signed by Mele So NP on at 1243 Electronically Signed by Orlin Charles MD on at 0847 RPT #:[id number] END OF REPORT 2022-02-25 [facility] 09:46:00-00:00 [facility] ([facility] Hospitalist Progress Note REPORT#:[id number] REPORT STATUS: Signed DATE:02/25/22 TIME: 945 PATIENT: PEDRO MCGREGOR UNIT #: [id number] ROOM/BED: [place] [id number] : 54 AGE: 66 SEX: M ATTEND: Jean-Paul Ward od, MD ADM AUTHOR: Lexa Samson LINK CUTTER * ALL edits or amendments must be made on the Material [email or web address] document * See Addendum Lexa Samson 02/25/22 0946: Subjective Chief complaint: He is waiting for Bed and DME. He is tolerating wound care. Left foot pain is controlled with meds. Breathing is stable. No CP, fever, chills. BP and HR stable. Review of Systems Constitutional: Reports: fatigue, generalized weakness. Allergy/Immun: Denies: allergic reaction, hives, rhinorrhea. Respiratory: Denies: hemoptysis, parox nocturnal dyspnea, ple uritic pain, pneumonia. Cardiovascular: Denies: GIBBS (dyspnea on exertion), orthopnea, pa lpitations. GI: Denies: anorexia, diarrhea, GERD, hematochezia. : Denies: flank pain, hematuria, nocturia, penile lesion. Heme: Denies: bleeding, petechiae. Neuro: Denies: change in LOC, dizziness, seizure. Psych: Denies: anxiety, change in mental status, depres sawyer. Objective General VS/I O: Vital Signs: Date Time Temp Pulse Resp B/P B/P Pulse O2 O2 F low FiO2 Mean Ox Delivery Rate 02/25 0710 36.4 72 18 136/70 92.0 96 Room air 02/25 0406 36.4 79 18 112/66 81.2 97 Room air 02/25 0000 37.0 84 16 108/58 74.2 94 Room air 02/24 1922 36.6 69 17 109/66 80.1 98 Room air 02/24 1639 36.9 65 18 113/62 79.1 97 Room air 02/24 1114 36.9 65 18 103/52 68.8 97 Room air 24 hour I O ending at 0700: 02/25 0700 02/24 1900 Intake Total Output Total 1450 1500 Balance -1450 -1500 Output, Urine 1450 1500 PATIENT WEIGHT: Weight (lb): 230 Weight (oz): 2.6 Weight (kg): 104.400 Medications: Active Meds + DC'd Last 24 Hrs Vancomycin HCl (VANCOMYCIN HCL) 1,000 MG ASDIR I RR Sodium Chloride (SODIUM CHLORIDE IRRIG BAG) 1,0 00 ML Vancomycin HCl (VANCOMYCIN HCL) 1,500 MG Q24H IV Sodium Chloride (SODIUM CHLORIDE 0.9%) 250 ML Oxycodone/Acetaminophen (PERCOCET 5/325MG TAB) 2 TAB Q4H PRN PRN PO Sodium Hypochlorite (DAKIN'S 1/4 STR (0.125%) 47 3ML) 1 APPLIC MOWEFR TOPICAL Ceftriaxone Sodium (ROCEPHIN) 2,000 MG Q24H IV Sodium Chloride (SODIUM CHLORIDE) 20 ML Miscellaneous Information (VANCOMYCIN PHARMACY T O DOSE) 1 EACH ASDIR IV (CKD) Sterile Water (WATER FOR IRRIGATION) DRESSING CH SHERICE ASDIR PRN IRR Glucagon (GLUCAGON) 1 MG ASDIR PRN IM Citalopram Hydrobromide (CeleXA) 20 MG DAILY PO Duloxetine HCl (CYMBALTA) 30 MG DAILY PO Furosemide (LASIX) 40 MG DAILY PO Lactulose (LACTULOSE) 20 GM BID PO Tamsulosin HCl (Flomax 0.4 mg) 0.4 MG DAILY PO Aspirin (ASPIRIN) 81 MG C BK PO Insulin Human Lispro (HUMALOG) 10 UNIT AC BK GRACE SUBQ Pantoprazole (PROTONIX) 40 MG DAILY 0600 PO Atorvastatin Calcium (LIPITOR) 80 MG BEDTIME PO Ferrous Sulfate (FERROUS SULFATE) 325 MG BID PO Gabapentin (NEURONTIN) 300 MG BEDTIME PO Ursodiol (ActigalL) 300 MG BID PO Docusate Sodium (COLACE) 100 MG DAILY PO Acetaminophen (TYLENOL) 650 MG Q4H PRN PRN PO Enoxaparin Sodium (lovENOX) 40 MG DAILY 1700 SUB Q Metoprolol Tartrate (LOPRESSOR) 25 MG DAILY PO Insulin Human Lispro (HUMALOG) 0 AC HS SUBQ Insulin Human Lispro (HUMALOG) 10 UNIT AC DIN MARR BQ Hydralazine HCl (APRESOLINE) 10 MG Q6H PRN PRN I V Ondansetron HCl (ZOFRAN) 4 MG Q4H PRN PRN IV Dietitian nutrition assessment The data set between the solid lines has been im ported from the dietitian's assessment. BMI Calculated: 29.0 Nutrition related diagnosis: Nutrition diagnosis details: Nutrition problem: Nutrition etiology: Nutrition signs and symptoms: Nutrition prescription: Dietitian name: Assessment completed: Physical Exam General appearance: alert, oriented Head/Eyes: atraumatic, normocephalic, PERRLA Neck: full range of motion, normal thyroid, supp le/no meningismus Cardiovascular: normal capillary refill, normal heart sounds, regular rate rhythm Respiratory: aerating well, symmetric expansion, no distress Abdomen: normal bowel sounds, soft Genitourinary: no flank pain, no urinary cathete r Extremities: no calf tenderness, no clubbing, no cyanosis Musculoskeletal: no muscle spasm Neuro/METAL WELDER: alert, oriented X 3, CNII-XII intact Psychiatry: normal affect, normal mood Results Findings/Data: Laboratory Tests 02/25 02/24 02/24 02/24 02/24 0739 1921 1710 1603 1153 Chemistry Creatinine (0.6 - 1.3 mg/dL) 1.1 POC Glucose (70 - 110 MG/DL) 233 H 143 H 208 H 291 H Laboratory Tests 02/24 1603 Toxicology Vancomycin Trough (10.0 - 20.0 mcg/mL) 14.2 Results: labs reviewed, vital signs reviewed, vi maida signs stable, current med profile rev'd Treatment Prophylaxis Treatment Prophylaxis Oxygen: room air Diagnosis, Assessment Plan Hospital course to date: ASSESSMENT AND PLAN: - Recurrent left foot osteomyelitis. - Infected wound left foot/Abscess left foot s/p I D. - Left foot pain, status post recent procedure. - Leukocytosis. - Hypokalemia-replaced - Hypomagnesemia-replaced. - Recently treated for bacteremia Enterococcal f aecalis. - History of hypertension. - History of hyperlipidemia. - History of depression, mood disorder. - History of diabetes type 2. - History of diabetic foot ulcer, nonhealing. - History of liver disease. PLAN: Floor. He needs Semi/Fully electric Hospital bed to all eviate Pain and assist with Position changes due to his Left foot OM. Will go home tomorrow with HH and ABX. Waiting for DME and Hospital Bed. S/p I D of left foot. Continue to monitor blood pressure and heart rat e. ID following for OM. Pain medication. Antiemetics. Follow labs and replace as needed. SCD for DVT prophylaxis. Continue home medication. Glycemic control, Accu-Cheks, sliding scale and diabetic diet. Monitor. Orders: Procedure Date/time Status Discharge Order with Parameter 02/25 945 Activ e Discharge Follow Up 02/25 945 Active Code status: full code Plan discussed with: patient, admitting physicia n, consultants, nurse Chelo Ward 02/28/22 1747: Attestations Physician Attestation Agree w/findings plan: Patient seen and examined, I agree with the findings and plans as documented by Lexa Samson NP Electronically Signed by Lexa Samson NP on at 0948 Electronically Signed by Chelo Ward MD on 0 02/28/22 at 1809 Addendum 1: 02/25/22 0948 by Lexa Samson LINK CUTTER He supposed to go home but waiting for DME and B ed. He is doing better. Tolerating wound. Pain is controlled with meds. No CP, fever, chills. No N/v/D. BP and HR stable. Please follow DC summary that was done 02/23/22. Electronically Signed by Lexa Samson NP on at 0949 Electronically Signed by Chelo Ward MD on 0 02/28/22 at 1809 RPT #:[id number] END OF REPORT 2022-02-25 [facility] 09:33:00-00:00 [facility] Prog.Note-Vancomycin REPORT#:[id number] REPORT STATUS: Signed DATE:02/25/22 TIME: 932 PATIENT: PEDRO MCGREGOR UNIT #: [id number] ROOM/BED: [place] [id number] : 54 AGE: 66 SEX: M ATTEND: Max Ward MD ADM AUTHOR: Victor M Yates [facility] * ALL edits or amendments must be made on the el [employer]/computer document * Vancomycin Vancomycin Medication Therapy Goal: AUC 400-600 mcg*hr/mL Indication for treatment: Osteomyelitis Weight: Actual weight (kg): 104.4 VS and I/O: Vital Signs Date Temp Pulse Resp B/P B/P Mean Pulse Ox FiO2 02/22-02/25 97.5-99.1 65-98 14-18 95-136/52-70 0.0-92.0 92-98 72 hours ending at 0700 02/25 0700 02/24 1900 02/24 0700 02/23 1900 02/22 0700 1900 Intake 250 1100 Total Output 1450 1500 2100 200 2150 Total Balance -1450 -1500 -2100 50 -1050 Intake, 250 1100 Oral Number 1 Bowel Movements Output, 1450 1500 2100 200 2150 Urine 72 Hour I O Total 02/25 0700 02/24 0700 02/23 0700 Intake Total 1350 Output Total 2950 2100 2350 Balance -2950 -2100 -1000 Labs: Laboratory Tests: 02/24 1603 Toxicology Vancomycin Trough (10.0 - 20.0 mcg/mL) 14.2 Laboratory Test : 02/24 1603 Chemistry Creatinine (0.6 - 1.3 mg/dL) 1.1 Treatment plan: consult, cont current regimen/do se Regimen: HPI: This is a 66 year-old male with a PMH of HT N, T2DM, PVD, OM/septic arthritis of left foot/ankle. Pharmacy has been consulted manage vancomycin. Consulting provider: Ronak Hein MD Indication: OM AUC goal: 400-600 mcg*hr/ml Day of therapy: 02/25 A/P: * Tmax 98.6 (afebrile), WBC 13.1 (02/17) * Microbiology: 02/17 left a nkle aspirate cx - E coli (R-cefazolin), klebsiella oxytoca (I-cefazolin), E. faecalis (S-amp), left ankle wound cx - GNR ( aerobic), gamma streptococcus (broth only), left food wound - gram positive cocci, GNR x2, gamma streptococcus * Imaging: no recent * Renal: BUN 11 (02/21)/Scr 1.1 (02/24), eC rCL 85 ml/min, UOP 2950 mL or voids/24 hours * Regimen: Current maintenance regimen of vancom ycin 1500 mg IV q24h( mg/kg). Concurrent antibiotic therapy of ceftriaxone 200 0 mg IV q24h * Monitoring: Trough on 02/24 was 14.2 mcg (drawn appropriately) which is therapeutic. Goal is 12-18 mcg/mL * Plan: Continue with maranda thomas maintenance regimen of vancomycin 1500 mg IV q24h. Consider AUC monitoring if patient is not discha rged. Pharmacy will continue to follow and monitor. Electronically Signed by Victor M Yates [facility] on 02/13 05/05 at 0944 RPT #:[id number] END OF REPORT 2022-02-24 [facility] 16:39:00-00:00 [facility] ([facility]) Podiatry Progress Note REPORT#:[id number] REPORT STATUS: Signed DATE:02/24/22 TIME: 1639 PATIENT: PEDRO MCGREGOR UNIT #: [id number] ROOM/BED: [place] [id number] : 53 AGE: 66 SEX: M ATTEND: Jean-Paul Ward od, MD ADM AUTHOR: Faby Wharton DPM * ALL edits or amendments must be made on the Material [email or web address] document * Subjective Chief complaint: foot infection HPI: Pt seen at bedside. Denies any new issues. Objective General VS: Last Documented: Result Date Time Pulse Ox 97 02/24 1639 B/P 113/62 02/24 1639 B/P Mean 79.1 02/24 1639 O2 Delivery Room air 02/24 1639 Temp 36.9 02/24 1639 Pulse 65 02/24 1639 Resp 18 02/24 1639 O2 Flow Rate 6 02/17 1643 PATIENT WEIGHT: Weight (lb): 230 Weight (oz): 2.6 Weight (kg): 104.400 Medications: Active Meds + DC'd Last 24 Hrs Vancomycin HCl (VANCOMYCIN HCL) 1,000 MG ASDIR I RR Sodium Chloride (SODIUM CHLORIDE IRRIG BAG) 1,0 00 ML Vancomycin HCl (VANCOMYCIN HCL) 1,500 MG Q24H IV Sodium Chloride (SODIUM CHLORIDE 0.9%) 250 ML Oxycodone/Acetaminophen (PERCOCET 5/325MG TAB) 2 TAB Q4H PRN PRN PO Sodium Hypochlorite (DAKIN'S 1/4 STR (0.125%) 47 3ML) 1 APPLIC MOWEFR TOPICAL Ceftriaxone Sodium (ROCEPHIN) 2,000 MG Q24H IV Sodium Chloride (SODIUM CHLORIDE) 20 ML Miscellaneous Information (VANCOMYCIN PHARMACY T O DOSE) 1 EACH ASDIR IV (CKD) Sterile Water (WATER FOR IRRIGATION) DRESSING CH SHERICE ASDIR PRN IRR Glucagon (GLUCAGON) 1 MG ASDIR PRN IM Citalopram Hydrobromide (CeleXA) 20 MG DAILY PO Duloxetine HCl (CYMBALTA) 30 MG DAILY PO Furosemide (LASIX) 40 MG DAILY PO Lactulose (LACTULOSE) 20 GM BID PO Tamsulosin HCl (Flomax 0.4 mg) 0.4 MG DAILY PO Aspirin (ASPIRIN) 81 MG C BK PO Insulin Human Lispro (HUMALOG) 10 UNIT AC BK GRACE SUBQ Pantoprazole (PROTONIX) 40 MG DAILY 0600 PO Atorvastatin Calcium (LIPITOR) 80 MG BEDTIME PO Ferrous Sulfate (FERROUS SULFATE) 325 MG BID PO Gabapentin (NEURONTIN) 300 MG BEDTIME PO Ursodiol (ActigalL) 300 MG BID PO Docusate Sodium (COLACE) 100 MG DAILY PO Acetaminophen (TYLENOL) 650 MG Q4H PRN PRN PO Enoxaparin Sodium (lovENOX) 40 MG DAILY 1700 SUB Q Metoprolol Tartrate (LOPRESSOR) 25 MG DAILY PO Insulin Human Lispro (HUMALOG) 0 AC HS SUBQ Insulin Human Lispro (HUMALOG) 10 UNIT AC DIN S UBQ Hydralazine HCl (APRESOLINE) 10 MG Q6H PRN PRN I V Ondansetron HCl (ZOFRAN) 4 MG Q4H PRN PRN IV I O: 24 hour I O ending at 0700: 12 0700 02/23 1900 Intake Total Output Total 2100 Balance -2100 Output, Urine 2100 Dietitian nutrition assessment The data set between the solid lines has been im ported from the dietitian's assessment. BMI Calculated: 29.0 Nutrition related diagnosis: Nutrition diagnosis details: Nutrition problem: Nutrition etiology: Nutrition signs and symptoms: Nutrition prescription: Dietitian name: Assessment completed: Physical Exam Wound/incision: Location: Left foot DP and PT pulses 1/4 barely palpable. Light touch and protective sensation greatly de creased left foot. Extensive wound from the medial aspect of the l eft hindfoot to the medial aspect of the left midfoot. Wide open with thick purulent drainage very mal odorous. Ulcer plantar left first metatarsal head is sup erficial. Erythema of the left foot. No crepitation External fixator is in place. Foot is underneath the leg.. LE vascular pulse assess: 1+ L posterior tibialis, 1+ L dorsalis pedis Results Findings/Data: Laboratory Tests: 02/24 02/24 02/24 02/23 02/23 1603 1153 0858 2000 1658 Chemistry Creatinine (0.6 - 1.3 mg/dL) 1.1 POC Glucose (70 - 110 MG/DL) 291 H 259 H 183 H 186 H Toxicology Vancomycin Trough (10.0 - 20.0 mcg/mL) 14.2 Results: labs reviewed Diagnosis, Assessment Plan Free Text A P: External fixator left lower extremity Cellulitis and draining wound medial left foot Diabetes with peripheral neuropathy Superficial ulcer left forefoot Status post external fixation application Wound left medial ankle: Apply vera flow wound V AC every Monday. nwB REGULAR WOUND VAC WITH DC HOME Electronically Signed by Faby Wharton DPM on 08/05 at 0014 RPT #:[id number] END OF REPORT 2022-02-24 [facility] 12:56:00-00:00 [facility] ([facility]) Pain Management Progress Note REPORT#:[id number] REPORT STATUS: Signed DATE:02/24/22 TIME: 1256 PATIENT: PEDRO MCGREGOR UNIT #: [id number] ROOM/BED: [place] [id number] : 54 AGE: 66 SEX: M ATTEND: Jean-Paul Ward od, MD ADM AUTHOR: Emy Mayes NP * ALL edits or amendments must be made on the el [employer]/computer document * Subjective Chief complaint: Foot Wound. Interval History 02/24/2021 Patient chart, note and event reviewed Patient is laying in bed, fully alert, awake hem odynamically stable S/P debridment Left ankle Wound Vac in place bhardwaj in place Pain is controlled Mood is ok Sleep is ok. Denied insomnia No constipation Review of Systems Additional notes: Review was conducted and was negative except for what's noted in the HPI and Medical History. The following systems were revi ewed: Constitutional, cardiovascular, respiratory, gastrointes tinal, genitourinary, musculoskeletal, neurologic, psychiatric, endocrinological, and h ematological. Objective General VS/I O: Vital Signs Date Temp Pulse Resp B/P B/P Mean Pulse Ox FiO2 02/23-02/24 98.4-99.1 65-88 14-18 103-122/52-64 68.8-83.2 92-97 Last Documented: Result Date Time Pulse Ox 97 02/24 1114 B/P 103/02/24 1114 B/P Mean 68.8 02/24 1114 O2 Delivery Room air 02/24 1114 Temp 98.4 02/24 1114 Pulse 65 02/24 1114 Resp 18 02/24 1114 O2 Flow Rate 6 02/17 1643 24 hour I O ending at 0700: 02/24 0700 02/23 1900 Intake Total Output Total 2100 Balance -2100 Output, Urine 2100 PATIENT WEIGHT: Weight (lb): 230 Weight (oz): 2.6 Weight (kg): 104.400 Medications: Active Meds + DC'd Last 24 Hrs Vancomycin HCl (VANCOMYCIN HCL) 1,000 MG ASDIR I RR Sodium Chloride (SODIUM CHLORIDE IRRIG BAG) 1,0 00 ML Vancomycin HCl (VANCOMYCIN HCL) 1,500 MG Q24H IV Sodium Chloride (SODIUM CHLORIDE 0.9%) 250 ML Oxycodone/Acetaminophen (PERCOCET 5/325MG TAB) 2 TAB Q4H PRN PRN PO Sodium Hypochlorite (DAKIN'S / STR (0.125%) 47 3ML) 1 APPLIC MOWEFR TOPICAL Ceftriaxone Sodium (ROCEPHIN) 2,000 MG Q24H IV Sodium Chloride (SODIUM CHLORIDE) 20 ML Miscellaneous Information (VANCOMYCIN PHARMACY T O DOSE) 1 EACH ASDIR IV (CKD) Sterile Water (WATER FOR IRRIGATION) DRESSING CH SHERICE ASDIR PRN IRR Glucagon (GLUCAGON) 1 MG ASDIR PRN IM Citalopram Hydrobromide (CeleXA) 20 MG DAILY PO Duloxetine HCl (CYMBALTA) 30 MG DAILY PO Furosemide (LASIX) 40 MG DAILY PO Lactulose (LACTULOSE) 20 GM BID PO Tamsulosin HCl (Flomax 0.4 mg) 0.4 MG DAILY PO Aspirin (ASPIRIN) 81 MG C BK PO Insulin Human Lispro (HUMALOG) 10 UNIT AC BK GRACE SUBQ Pantoprazole (PROTONIX) 40 MG DAILY 0600 PO Atorvastatin Calcium (LIPITOR) 80 MG BEDTIME PO Ferrous Sulfate (FERROUS SULFATE) 325 MG BID PO Gabapentin (NEURONTIN) 300 MG BEDTIME PO Ursodiol (ActigalL) 300 MG BID PO Docusate Sodium (COLACE) 100 MG DAILY PO Acetaminophen (TYLENOL) 650 MG Q4H PRN PRN PO Enoxaparin Sodium (lovENOX) 40 MG DAILY 1700 SUB Q Metoprolol Tartrate (LOPRESSOR) 25 MG DAILY PO Insulin Human Lispro (HUMALOG) 0 AC HS SUBQ Insulin Human Lispro (HUMALOG) 10 UNIT AC DIN MARR BQ Hydralazine HCl (APRESOLINE) 10 MG Q6H PRN PRN I V Ondansetron HCl (ZOFRAN) 4 MG Q4H PRN PRN IV Physical Exam Wound/Incision: Location: left ankle debridment. wound vac in place Head/eyes: atraumatic, PERRLA Neck: full range of motion, non-tender Cardiovascular: normal capillary refill, regular rate rhythm Abdomen: soft Extremities: moves all (left leg wound/ external fix) Neuro/METAL WELDER: alert Results Findings/data: Laboratory Tests: 02/24 02/24 02/23 02/23 02/23 1153 0858 2000 1658 1303 Chemistry POC Glucose (70 - 110 MG/DL) 291 H 259 H 183 H 186 H 249 H Diagnosis, Assessment Plan Free text A P: Assessment/Plan Daily Plan 02/24/2021 Patient assessed. Pain is controlled with curren t pain medical management. Continue IV antibiotics per ID. Plan 1. Acute complex pain syndrome 2/2 left leg oste omilitis -D/C Dilaudid 0.5mg IV Q4H PRN for pain 7-10, s econd line -oxycodone 10/325 q4H PRN for pain 7-10 first l ine -Tylenol 650 mg PO Q6h for pain 1-3 2. Neuropathic pain -gabapentin 300mg PO Bedtime -cymbalta 30mg twice a day 3. Muscle spasm flexeril 5mg po TID 4. Bowel Regimen - colace -continue pain regimen as above -Monitor for S/E such as AMS , Lethargy/sedation, changes in respiratory function -Continue BP parameters -APS( Acute Pain services) will continue to foll ow -please call pain management for any pain-relate d concerns or questions Goal: Daily pain control to improve function and /or quality of life ([x]) Pain control until condition naturally res olves ([x]) Inpatient pain control ([x]) Improved sleep cycle ([x]) all narcotics medications will be adjusted according to the patient's medical condition during the hospital stay Alll diagnostic images/lab and medical records d uring the course of this admission as well as ASSISTANT CHIEF TRAIN DISPATCHER records reviewed Risk versus benefit of opiate medications: All r isk and benefit were reviewed with the patient and family members, risk not limited to respiratory depression, accidental overdose, risk of fall, altered menta l status, constipation, dependency, addiction, withdrawn, sudden . Plan discussed with: The pain plan of ca re has been discussed with the patient and the nursing staff. Patient is in agr eement with the following plan of care and wishes to proceed. Quest ions and concerns have been answered to the patient' s satisfaction. Patient has verbalized understan iqra. Plan discussed with: patient Electronically Signed by Emy Mayes NP on 0 02/24/22 at 1301 RPT #:[id number] END OF REPORT 2022-02-24 [facility] 10:13:00-00:00 [facility] Hospitalist Progress Note REPORT#:[id number] REPORT STATUS: Signed DATE:02/24/22 TIME: 1013 PATIENT: PEDRO MCGREGOR UNIT #: [id number] ROOM/BED: [place] [id number] : 54 AGE: 66 SEX: M ATTEND: Jean-Paul Ward od, MD ADM AUTHOR: Lexa Samson LINK CUTTER * ALL edits or amendments must be made on the el [employer]/computer document * Lexa Samson 02/24/22 1013: Subjective Chief complaint: He is waiting for Bed. He is tolerating wound care. Left foot pain is controlled with meds. Breathing is stable. No CP, fever, chills. BP and HR stable. Review of Systems Constitutional: Reports: fatigue, generalized weakness. Allergy/Immun: Denies: allergic reaction, itching, rhinorrhea. ENT: Denies: earache, mouth pain, sinus problem, thro at pain, throat swelling. Respiratory: Denies: hemoptysis, parox no cturnal dyspnea, pleuritic pain, productive cough ( sputum), SOB. Cardiovascular: Denies: GIBBS (dyspnea on exertion), parox nocturn al dyspnea. GI: Denies: anorexia, GERD, hiatal hernia, nausea. : Denies: frequency, nocturia, testicular pain. Heme: Denies: bleeding, bruising. Neuro: Denies: confusion, focal weakness, gait problem, numbness. Objective General VS/I O: Vital Signs: Date Time Temp Pulse Resp B/P B/P Pulse O2 O2 F low FiO2 Mean Ox Delivery Rate 02/24 0409 37.0 88 14 121/64 83.2 96 Room air 02/23 2342 37.0 88 15 114/57 76.1 92 Room air 02/23 1920 37.3 80 15 122/63 82.8 96 Room air 02/23 1658 36.9 69 18 117/60 78.8 94 02/23 1142 36.8 70 18 100/61 73.7 93 24 hour I O ending at 0700: 02/24 0700 02/23 1900 Intake Total Output Total 2100 Balance -2100 Output, Urine 2100 PATIENT WEIGHT: Weight (lb): 230 Weight (oz): 2.6 Weight (kg): 104.400 Medications: Active Meds + DC'd Last 24 Hrs Vancomycin HCl (VANCOMYCIN HCL) 1,000 MG ASDIR I RR Sodium Chloride (SODIUM CHLORIDE IRRIG BAG) 1,0 00 ML Vancomycin HCl (VANCOMYCIN HCL) 1,500 MG Q24H IV Sodium Chloride (SODIUM CHLORIDE 0.9%) 250 ML Oxycodone/Acetaminophen (PERCOCET 5/325MG TAB) 2 TAB Q4H PRN PRN PO Sodium Hypochlorite (DAKIN'S 1/4 STR (0.125%) 47 3ML) 1 APPLIC MOWEFR TOPICAL Ceftriaxone Sodium (ROCEPHIN) 2,000 MG Q24H IV Sodium Chloride (SODIUM CHLORIDE) 20 ML Miscellaneous Information (VANCOMYCIN PHARMACY T O DOSE) 1 EACH ASDIR IV (CKD) Sterile Water (WATER FOR IRRIGATION) DRESSING CH SHERICE ASDIR PRN IRR Glucagon (GLUCAGON) 1 MG ASDIR PRN IM Citalopram Hydrobromide (CeleXA) 20 MG DAILY PO Duloxetine HCl (CYMBALTA) 30 MG DAILY PO Furosemide (LASIX) 40 MG DAILY PO Lactulose (LACTULOSE) 20 GM BID PO Tamsulosin HCl (Flomax 0.4 mg) 0.4 MG DAILY PO Aspirin (ASPIRIN) 81 MG C BK PO Insulin Human Lispro (HUMALOG) 10 UNIT AC BK GRACE SUBQ Pantoprazole (PROTONIX) 40 MG DAILY 0600 PO Atorvastatin Calcium (LIPITOR) 80 MG BEDTIME PO Ferrous Sulfate (FERROUS SULFATE) 325 MG BID PO Gabapentin (NEURONTIN) 300 MG BEDTIME PO Ursodiol (ActigalL) 300 MG BID PO Docusate Sodium (COLACE) 100 MG DAILY PO Acetaminophen (TYLENOL) 650 MG Q4H PRN PRN PO Enoxaparin Sodium (lovENOX) 40 MG DAILY 1700 SUB Q Metoprolol Tartrate (LOPRESSOR) 25 MG DAILY PO Insulin Human Lispro (HUMALOG) 0 AC HS SUBQ Insulin Human Lispro (HUMALOG) 10 UNIT AC DIN MARR BQ Hydralazine HCl (APRESOLINE) 10 MG Q6H PRN PRN I V Ondansetron HCl (ZOFRAN) 4 MG Q4H PRN PRN IV Dietitian nutrition assessment The data set between the solid lines has been im ported from the dietitian's assessment. BMI Calculated: 29.0 Nutrition related diagnosis: Nutrition diagnosis details: Nutrition problem: Nutrition etiology: Nutrition signs and symptoms: Nutrition prescription: Dietitian name: Assessment completed: Physical Exam General appearance: alert, awake, oriented Head/Eyes: atraumatic, normocephalic, PERRLA Neck: full range of motion, normal thyroid, supp le/no meningismus Cardiovascular: normal capillary refill, normal heart sounds, regular rate rhythm Respiratory: aerating well, symmetric expansion, no distress Abdomen: normal bowel sounds, soft Genitourinary: no flank pain, no urinary cathete r Extremities: no calf tenderness, no clubbing, no cyanosis Musculoskeletal: no muscle spasm Neuro/METAL WELDER: alert, oriented X 3, CNII-XII intact Psychiatry: normal affect, normal mood Results Findings/Data: Laboratory Tests 02/24 02/23 02/23 02/23 0858 2000 1658 1303 Chemistry POC Glucose (70 - 110 MG/DL) 259 H 183 H 186 H 249 H Results: labs reviewed, vital signs reviewed, vi maida signs stable, current med profile rev'd Treatment Prophylaxis Treatment Prophylaxis Oxygen: room air Diagnosis, Assessment Plan Hospital course to date: ASSESSMENT AND PLAN: - Recurrent left foot osteomyelitis. - Infected wound left foot/Abscess left foot s/p I D. - Left foot pain, status post recent procedure. - Leukocytosis. - Hypokalemia-replaced - Hypomagnesemia-replaced. - Recently treated for bacteremia Enterococcal f aecalis. - History of hypertension. - History of hyperlipidemia. - History of depression, mood disorder. - History of diabetes type 2. - History of diabetic foot ulcer, nonhealing. - History of liver disease. PLAN: Floor. He needs Semi/Fully electric Hospital bed to all eviate Pain and assist with Position changes due to his Left foot OM. Will go home tomorrow with HH and ABX. S/p I D of left foot. Continue to monitor blood pressure and heart rat e. ID following for OM. Pain medication. Antiemetics. Follow labs and replace as needed. SCD for DVT prophylaxis. Continue home medication. Glycemic control, Accu-Cheks, sliding scale and diabetic diet. Monitor. Chelo Ward 02/24/22 1802: Attestations Physician Attestation Agree w/findings plan: Patient seen and examined, I agree with the findings and plans as documented by Lexa Mali, LINK CUTTER Electronically Signed by Lexa Samson LINK CUTTER on 02/04 at 1014 Electronically Signed by Chelo Ward MD on 0 02/24/22 at 1802 RPT #:[id number] END OF REPORT 2022-02-24 [facility] 09:41:00-00:00 [facility] ([facility]) Infectious Dis. Progress Note REPORT#:[id number] REPORT STATUS: Signed DATE:02/24/22 TIME: 940 PATIENT: PEDRO MCGREGOR UNIT #: [id number] ROOM/BED: [place] [id number] : 54 AGE: 66 SEX: M ATTEND: Jean-Paul Ward od, MD ADM AUTHOR: Mele So NP * ALL edits or amendments must be made on the [email or web address] document * Subjective Chief complaint: Follow-up on left foot osteomyelitis HPI: Patient denies acute or new complaints today. No major overnight events. Patient reports: Yes: bowel movement, feeling better. No: complaints, abdominal pain, back pain, burning with urination, cough, diarrhea, fever, headache, nausea, pain, pain controlled, shortness of breath, vomiting, wheez ing. Nursing reports: No: complaints. Review of Systems All systems rev neg: except as marked Objective General VS/I O: Vital Signs Date Temp Pulse Resp B/P B/P Mean Pulse Ox FiO2 02/23-02/24 98.4-99.1 65-88 14-18 103-122/52-64 68.8-83.2 92-97 Last Documented: Result Date Time Pulse Ox 97 02/24 1114 B/P 103/52 02/24 1114 B/P Mean 68.8 02/24 1114 O2 Delivery Room air 02/24 1114 Temp 98.4 02/24 1114 Pulse 65 02/24 1114 Resp 18 02/24 1114 O2 Flow Rate 6 02/17 1643 Vital Signs: Date Time Temp Pulse Resp B/P B/P Pulse O2 O2 Flow FiO2 Mean Ox Delivery Rate 02/24 1114 98.4 65 18 103/52 68.8 97 Room air 02/24 0409 98.6 88 14 121/64 83.2 96 Room air 02/23 2342 98.6 88 15 114/57 76.1 92 Room air 02/23 1920 99.1 80 15 122/63 82.8 96 Room air 02/23 1658 98.4 69 18 117/60 78.8 94 24 hour I O ending at 0700: 02/24 0700 02/23 1900 Intake Total Output Total 2100 Balance -2100 Output, Urine 2100 PATIENT WEIGHT: Weight (lb): 230 Weight (oz): 2.6 Weight (kg): 104.400 Physical Exam General appearance: alert, awake, oriented Wound/incision: Location: left foot wound + external fixator and VAC in pl mg Head/Eyes: atraumatic, clear cornea, EOMI, tra l conjunctiva/sclera, normal eyelids/periorb, normocephalic, PERRL ENT: moist mucosal membranes Neck: full range of motion Cardiovascular: regular rate rhythm, no murmur Respiratory: clear to auscultation, no distress Abdomen: non-tender, soft, no distention Extremities: no clubbing, no cyanosis, left lowe r extremity in an external fixator Neuro/METAL WELDER: alert, oriented X 3 Skin: dry, no rash Results Findings/Data: Laboratory Tests 02/24 02/23 02/23 02/23 0858 2000 1658 1303 Chemistry POC Glucose (70 - 110 MG/DL) 259 H 183 H 186 H 249 H Results: labs reviewed, vital signs reviewed, vi maida signs stable, current med profile rev'd Diagnosis, Assessment Plan Free Text A P: Assessment: *Osteomyelitis and septic arthritis of the left foot and ankle *HTN *Type 2 diabetes with neuropathy and nephropathy *Peripheral vascular disease -Went back to the OR 02/17/22 and is now s/p I D. Overall findings of necrotic tendon, necrotic bone noted. -Surgical specimen with E coli, Klesbiella oxyto ca and E faecalis Plan: -S/p treatment with piperaci llin-tazobactam till 02/11/2022 for prior isolates ( E. coli and E faecalis) from December. -Based on recent cultures from this admission, a ntibiotic therapy switched to ceftriaxone and vancomycin on 02/14 through 03/28 CM orders placed for HH/IV abx on 02/21 (Dapto/Nghia ephin) RUE PICC line Patient to follow-up with ID clinic in 2 to 3 we eks after discharge Pt seen and examined with Dr Charles Electronically Signed by Mele So NP on at 1447 Electronically Signed by Orlin Charles MD on at 0846 RPT #:[id number] END OF REPORT 2022-02-23 [facility] 21:03:00-00:00 [facility] ([facility]) Infectious Dis. Progress Note REPORT#:[id number] REPORT STATUS: Signed DATE:02/23/22 TIME: 2102 PATIENT: PEDRO MCGREGOR UNIT #: [id number] ROOM/BED: [place] [id number] : 53 AGE: 66 SEX: M ATTEND: Jean-Paul Ward od, MD ADM AUTHOR: Orlin Charles MD * ALL edits or amendments must be made on the Material [employer]/computer document * Subjective Chief complaint: Follow-up on left foot osteomyelitis HPI: Patient denies acute or new complaints today. No major overnight events. Patient reports: Yes: feeling better. No: com plaints, abdominal pain, back pain, bowel movement, burning with urination, cough, diarrhea, fever, headache, nausea, pain, pain controlled, shortness of breath, vomiting, wheez ing. Review of Systems All systems rev neg: except as marked Objective General VS/I O: Vital Signs Date Temp Pulse Resp B/P B/P Mean Pulse Ox FiO2 02/22-02/23 97.7-99.1 69-81 15-18 100-128/60-69 73.7-88.6 93-97 Last Documented: Result Date Time Pulse Ox 96 02/23 1919 B/P 122/63 02/23 1919 B/P Mean 82.8 02/23 1919 O2 Delivery Room air 02/23 1919 Temp 99.1 02/23 1919 Pulse 80 02/23 1919 Resp 15 02/23 192 O2 Flow Rate 6 02/17 1643 Vital Signs: Date Time Temp Pulse Resp B/P B/P Pulse O2 O2 F low FiO2 Mean Ox Delivery Rate 02/23 1919 99.1 80 15 122/63 82.8 96 Room air 02/23 1658 98.4 69 18 117/60 78.8 94 02/23 1142 98.2 70 18 100/61 73.7 93 02/23 0744 97.7 76 18 114/69 84.0 95 02/23 0355 98.6 81 16 128/69 88.6 95 Room air 02/22 2213 99.0 79 16 114/62 79.4 97 Room air 24 hour I O ending at 0700: 02/23 0700 02/22 1900 Intake Total 250 1100 Output Total 200 2150 Balance 50 -1050 Intake, Oral 250 1100 Number 1 Bowel Movements Output, Urine 200 2150 PATIENT WEIGHT: Weight (lb): 230 Weight (oz): 2.6 Weight (kg): 104.400 Medications: Active Meds + DC'd Last 24 Hrs Vancomycin HCl (VANCOMYCIN HCL) 1,000 MG ASDIR I RR Sodium Chloride (SODIUM CHLORIDE IRRIG BAG) 1,0 00 ML Vancomycin HCl (VANCOMYCIN HCL) 1,500 MG Q24H IV Sodium Chloride (SODIUM CHLORIDE 0.9%) 250 ML Oxycodone/Acetaminophen (PERCOCET 5/325MG TAB) 2 TAB Q4H PRN PRN PO Sodium Hypochlorite (DAKIN'S 1/4 STR (0.125%) 47 3ML) 1 APPLIC MOWEFR TOPICAL Ceftriaxone Sodium (ROCEPHIN) 2,000 MG Q24H IV Sodium Chloride (SODIUM CHLORIDE) 20 ML Miscellaneous Information (VANCOMYCIN PHARMACY T O DOSE) 1 EACH ASDIR IV (CKD) Sterile Water (WATER FOR IRRIGATION) DRESSING CH SHERICE ASDIR PRN IRR Glucagon (GLUCAGON) 1 MG ASDIR PRN IM Citalopram Hydrobromide (CeleXA) 20 MG DAILY PO Duloxetine HCl (CYMBALTA) 30 MG DAILY PO Furosemide (LASIX) 40 MG DAILY PO Lactulose (LACTULOSE) 20 GM BID PO Tamsulosin HCl (Flomax 0.4 mg) 0.4 MG DAILY PO Aspirin (ASPIRIN) 81 MG C BK PO Insulin Human Lispro (HUMALOG) 10 UNIT AC BK GRACE SUBQ Pantoprazole (PROTONIX) 40 MG DAILY 0600 PO Atorvastatin Calcium (LIPITOR) 80 MG BEDTIME PO Ferrous Sulfate (FERROUS SULFATE) 325 MG BID PO Gabapentin (NEURONTIN) 300 MG BEDTIME PO Ursodiol (ActigalL) 300 MG BID PO Docusate Sodium (COLACE) 100 MG DAILY PO Acetaminophen (TYLENOL) 650 MG Q4H PRN PRN PO Enoxaparin Sodium (lovENOX) 40 MG DAILY 1700 SUB Q Metoprolol Tartrate (LOPRESSOR) 25 MG DAILY PO Insulin Human Lispro (HUMALOG) 0 AC HS SUBQ Insulin Human Lispro (HUMALOG) 10 UNIT AC DIN MARR BQ Hydralazine HCl (APRESOLINE) 10 MG Q6H PRN PRN I V Ondansetron HCl (ZOFRAN) 4 MG Q4H PRN PRN IV Physical Exam General appearance: alert, awake, oriented Wound/incision: Location: left foot wound + external fixator in place Head/Eyes: atraumatic, clear cornea, EOMI, tra l conjunctiva/sclera, normal eyelids/periorb, normocephalic, PERRL ENT: moist mucosal membranes Neck: full range of motion Cardiovascular: regular rate rhythm, no murmur Respiratory: clear to auscultation, no distress Abdomen: non-tender, soft, no distention Extremities: no cyanosis, no edema, left lower extremity in an external fixator Musculoskeletal: full range of motion, normal in spection Neuro/METAL WELDER: alert, oriented X 3 Skin: dry, no rash Results Findings/Data: Laboratory Tests 02/23 1658 1303 0830 Chemistry POC Glucose (70 - 110 MG/DL) 183 H 186 H 249 H 224 H Results: vital signs reviewed, current med profi le rev'd Diagnosis, Assessment Plan Problem List/A P: 1. Osteomyelitis Free Text A P: Assessment: *Osteomyelitis and septic arthritis of the left foot and ankle *HTN *Type 2 diabetes with neuropathy and nephropathy *Peripheral vascular disease -Afebrile; although with low-grade tempe rature with last 24-hour T-max of 37.5 C last night. -Leukocytosis of 13.1 on previous CBC noted; tod ay's CBC not available. -ESR 97; CRP 103. -Wound culture with 2 different colonies of E. c karina, MRSA and Enterococcus faecalis from broth only. -Went back to the OR 02/17/22 and is now s/p I D. Overall findings of necrotic tendon, necrotic bone noted. -Surgical specimen with E coli, Klesbiella oxyto ca and E faecalis Plan: -S/p treatment with piperaci llin-tazobactam till 02/11/2022 for prior isolates ( E. coli and E faecalis) from December. -Based on recent cultures from this admission, a ntibiotic therapy switched to ceftriaxone and vancomycin on 02/14/2022. -Would continue same. -Based on overall finding of necrotic tendon, ne crotic bone, would plan on another prolonged course of antibiotics of 4 to 6 weeks. -Tentative stop date: 03/28/2022. -Antibiotics being arranged via home health. Ord ers placed yesterday. -On discharge, would switch vancomycin t o daptomycin 1000 mg IV every 24 hours for ease of monitoring. Would continue ceftriaxo ne at 2 g IV daily. -Safety labs while on IV ant ibiotics (on discharge): CBC with differential, CMP, ESR, CRP and CK on a weekly basis. Patient to follow-up with ID clinic in 2 to 3 we eks after discharge. CURRENT ANTIMICROBIALS: Ceftriaxone + vancomycin, started 02/14/2022, te ntative stop date: 03/28/2022 Day 8 CM orders placed to assist with Home IV abx arra ngyousif/HH Electronically Signed by Orlin Charles MD on at 2104 RPT #:[id number] END OF REPORT 2022-02-23 [facility] 19:14:00-00:00 [facility] ([facility]) Podiatry Progress Note REPORT#:[id number] REPORT STATUS: Signed DATE:02/23/22 TIME: 1913 PATIENT: PEDRO MCGREGOR UNIT #: [id number] ROOM/BED: [place] [id number] : 54 AGE: 66 SEX: M ATTEND: Jean-Paul Ward od, MD ADM AUTHOR: Faby Wharton DPM * ALL edits or amendments must be made on the el ectronic/computer document * Subjective Chief complaint: foot infection HPI: Pt seen at bedside. Denies any new issues. Objective General VS: Last Documented: Result Date Time Pulse Ox 94 02/23 1658 B/P 117/60 02/23 1658 B/P Mean 78.8 02/23 1658 Temp 36.9 02/23 1658 Pulse 69 02/23 1658 Resp 18 02/23 1658 O2 Delivery Room air 02/23 0355 O2 Flow Rate 6 02/17 1643 PATIENT WEIGHT: Weight (lb): 230 Weight (oz): 2.6 Weight (kg): 104.400 Medications: Active Meds + DC'd Last 24 Hrs Vancomycin HCl (VANCOMYCIN HCL) 1,000 MG ASDIR IRR Sodium Chloride (SODIUM CHLORIDE IRRIG BAG) 1,0 00 ML Vancomycin HCl (VANCOMYCIN HCL) 1,500 MG Q24H IV Sodium Chloride (SODIUM CHLORIDE 0.9%) 250 ML Oxycodone/Acetaminophen (PERCOCET 5/325MG TAB) 2 TAB Q4H PRN PRN PO Sodium Hypochlorite (DAKIN'S 02/16 STR (0.125%) 47 3ML) 1 APPLIC MOWEFR TOPICAL Ceftriaxone Sodium (ROCEPHIN) 2,000 MG Q24H IV Sodium Chloride (SODIUM CHLORIDE) 20 ML Miscellaneous Information (VANCOMYCIN PHARMACY T O DOSE) 1 EACH ASDIR IV (CKD) Sterile Water (WATER FOR IRRIGATION) DRESSING CH SHERICE ASDIR PRN IRR Glucagon (GLUCAGON) 1 MG ASDIR PRN IM Citalopram Hydrobromide (CeleXA) 20 MG DAILY PO Duloxetine HCl (CYMBALTA) 30 MG DAILY PO Furosemide (LASIX) 40 MG DAILY PO Lactulose (LACTULOSE) 20 GM BID PO Tamsulosin HCl (Flomax 0.4 mg) 0.4 MG DAILY PO Aspirin (ASPIRIN) 81 MG C BK PO Insulin Human Lispro (HUMALOG) 10 UNIT AC BK GRACE SUBQ Pantoprazole (PROTONIX) 40 MG DAILY 0600 PO Atorvastatin Calcium (LIPITOR) 80 MG BEDTIME PO Ferrous Sulfate (FERROUS SULFATE) 325 MG BID PO Gabapentin (NEURONTIN) 300 MG BEDTIME PO Ursodiol (ActigalL) 300 MG BID PO Docusate Sodium (COLACE) 100 MG DAILY PO Acetaminophen (TYLENOL) 650 MG Q4H PRN PRN PO Enoxaparin Sodium (lovENOX) 40 MG DAILY 1700 SUB Q Metoprolol Tartrate (LOPRESSOR) 25 MG DAILY PO Insulin Human Lispro (HUMALOG) 0 AC HS SUBQ Insulin Human Lispro (HUMALOG) 10 UNIT AC DIN S UBQ Hydralazine HCl (APRESOLINE) 10 MG Q6H PRN PRN I V Ondansetron HCl (ZOFRAN) 4 MG Q4H PRN PRN IV I O: 24 hour I O ending at 0700: 02/23 0700 02/22 1900 Intake Total 250 1100 Output Total 200 2150 Balance 50 -1050 Intake, Oral 250 1100 Number 1 Bowel Movements Output, Urine 200 2150 Dietitian nutrition assessment The data set between the solid lines has been im ported from the dietitian's assessment. BMI Calculated: 29.0 Nutrition related diagnosis: Nutrition diagnosis details: Nutrition problem: Nutrition etiology: Nutrition signs and symptoms: Nutrition prescription: Dietitian name: Assessment completed: Physical Exam Wound/incision: Location: Left foot DP and PT pulses 1/4 barely palpable. Light touch and protective sensation greatly de creased left foot. Extensive wound from the medial aspect of the l eft hindfoot to the medial aspect of the left midfoot. Wide open with thick purulent drainage very mal odorous. Ulcer plantar left first metatarsal head is sup erficial. Erythema of the left foot. No crepitation External fixator is in place. Foot is underneath the leg.. LE vascular pulse assess: 1+ L posterior tibialis, 1+ L dorsalis pedis Results Findings/Data: Laboratory Tests: 02/23 02/23 02/23 02/22 1658 1303 0830 1949 Chemistry POC Glucose (70 - 110 MG/DL) 186 H 249 H 224 H 202 H Results: labs reviewed Diagnosis, Assessment Plan Free Text A P: External fixator left lower extremity Cellulitis and draining wound medial left foot Diabetes with peripheral neuropathy Superficial ulcer left forefoot Status post external fixation application Wound left medial ankle: Apply vera flow wound V AC every Monday. nwB REGULAR WOUND VAC WITH DC HOME Electronically Signed by Faby Whraton DPM on 08/05 at 0014 RPT #:[id number] END OF REPORT 2022-02-23 [facility] 11:27:00-00:00 [facility] ([facility]) Pain Management Progress Note REPORT#:[id number] REPORT STATUS: Signed DATE:02/23/22 TIME: 1127 PATIENT: PEDRO MCGREGOR UNIT #: [id number] ROOM/BED: [place] [id number] : 54 AGE: 66 SEX: M ATTEND: Jean-Paul Ward od, MD ADM AUTHOR: Emy Mayes NP * ALL edits or amendments must be made on the Material Mix/computer document * Subjective Chief complaint: Foot Wound. Interval History 02/23/2021 Patient chart, note and event reviewed Patient is laying in bed, fully alert, awake hem odynamically stable S/P debridment Left ankle Wound Vac in place bhardwaj in place Pain is controlled Mood is ok Sleep is ok. Denied insomnia No constipation Review of Systems Additional notes: Review was conducted and was negative except for what's noted in the HPI and Medical History. The following systems were revi ewed: Constitutional, cardiovascular, respiratory, gastrointes tinal, genitourinary, musculoskeletal, neurologic, psychiatric, endocrinological, and h ematological. Objective General VS/I O: Vital Signs Date Temp Pulse Resp B/P B/P Mean Pulse Ox FiO2 02/22-02/23 97.7-99.0 75-85 16-18 95-128/52-69 0.0-88.6 94-97 Last Documented: Result Date Time Pulse Ox 95 02/23 0744 B/P 114/69 02/23 0744 B/P Mean 84.0 02/23 0744 Temp 97.7 02/23 0744 Pulse 76 02/23 0744 Resp 18 02/23 0744 O2 Delivery Room air 02/23 0355 O2 Flow Rate 6 02/17 1643 24 hour I O ending at 0700: 02/23 0700 02/22 1900 Intake Total 250 1100 Output Total 200 2150 Balance 50 -1050 Intake, Oral 250 1100 Number 1 Bowel Movements Output, Urine 200 2150 PATIENT WEIGHT: Weight (lb): 230 Weight (oz): 2.6 Weight (kg): 104.400 Medications: Active Meds + DC'd Last 24 Hrs Vancomycin HCl (VANCOMYCIN HCL) 1,000 MG ASDIR I RR Sodium Chloride (SODIUM CHLORIDE IRRIG BAG) 1,0 00 ML Vancomycin HCl (VANCOMYCIN HCL) 1,500 MG Q24H IV Sodium Chloride (SODIUM CHLORIDE 0.9%) 250 ML Oxycodone/Acetaminophen (PERCOCET 5/325MG TAB) 2 TAB Q4H PRN PRN PO Sodium Hypochlorite (DAKIN'S 1/4 STR (0.125%) 47 3ML) 1 APPLIC MOWEFR TOPICAL Ceftriaxone Sodium (ROCEPHIN) 2,000 MG Q24H IV Sodium Chloride (SODIUM CHLORIDE) 20 ML Miscellaneous Information (VANCOMYCIN PHARMACY T O DOSE) 1 EACH ASDIR IV (CKD) Sterile Water (WATER FOR IRRIGATION) DRESSING CH SHERICE ASDIR PRN IRR Glucagon (GLUCAGON) 1 MG ASDIR PRN IM Citalopram Hydrobromide (CeleXA) 20 MG DAILY PO Duloxetine HCl (CYMBALTA) 30 MG DAILY PO Furosemide (LASIX) 40 MG DAILY PO Lactulose (LACTULOSE) 20 GM BID PO Tamsulosin HCl (Flomax 0.4 mg) 0.4 MG DAILY PO Aspirin (ASPIRIN) 81 MG C BK PO Insulin Human Lispro (HUMALOG) 10 UNIT AC BK GRACE SUBQ Pantoprazole (PROTONIX) 40 MG DAILY 0600 PO Atorvastatin Calcium (LIPITOR) 80 MG BEDTIME PO Ferrous Sulfate (FERROUS SULFATE) 325 MG BID PO Gabapentin (NEURONTIN) 300 MG BEDTIME PO Ursodiol (ActigalL) 300 MG BID PO Docusate Sodium (COLACE) 100 MG DAILY PO Acetaminophen (TYLENOL) 650 MG Q4H PRN PRN PO Enoxaparin Sodium (lovENOX) 40 MG DAILY 1700 SUB Q Metoprolol Tartrate (LOPRESSOR) 25 MG DAILY PO Insulin Human Lispro (HUMALOG) 0 AC HS SUBQ Insulin Human Lispro (HUMALOG) 10 UNIT AC DIN MARR BQ Hydralazine HCl (APRESOLINE) 10 MG Q6H PRN PRN I V Ondansetron HCl (ZOFRAN) 4 MG Q4H PRN PRN IV Dietitian nutrition assessment The data set between the solid lines has been im ported from the dietitian's assessment. BMI Calculated: 29.0 Nutrition related diagnosis: Nutrition diagnosis details: Nutrition problem: Nutrition etiology: Nutrition signs and symptoms: Nutrition prescription: Dietitian name: Assessment completed: Physical Exam Wound/Incision: Location: left ankle debridment. wound vac in place Head/eyes: atraumatic, PERRLA Neck: full range of motion, non-tender Cardiovascular: normal capillary refill, regular rate rhythm Abdomen: soft Extremities: moves all (left leg wound/ external fix) Neuro/METAL WELDER: alert Diagnosis, Assessment Plan Free text A P: Assessment/Plan Daily Plan 02/23/2021 Patient assessed. Pain is controlled with curren t pain medical management. Continue IV antibiotics per ID. Plan 1. Acute complex pain syndrome 2/2 left leg oste omilitis -D/C Dilaudid 0.5mg IV Q4H PRN for pain 7-10, s econd line -oxycodone 10/325 q4H PRN for pain 7-10 first l ine -Tylenol 650 mg PO Q6h for pain 1-3 2. Neuropathic pain -gabapentin 300mg PO Bedtime -cymbalta 30mg twice a day 3. Muscle spasm flexeril 5mg po TID 4. Bowel Regimen - colace -continue pain regimen as above -Monitor for S/E such as AMS , Lethargy/sedation, changes in respiratory function -Continue BP parameters -APS( Acute Pain services) will continue to foll ow -please call pain management for any pain-relate d concerns or questions Goal: Daily pain control to improve function and /or quality of life ([x]) Pain control until condition naturally res olves ([x]) Inpatient pain control ([x]) Improved sleep cycle ([x]) all narcotics medications will be adjusted according to the patient's medical condition during the hospital stay Alll diagnostic images/lab and medical records d uring the course of this admission as well as ASSISTANT CHIEF TRAIN DISPATCHER records reviewed Risk versus benefit of opiate medications: All r isk and benefit were reviewed with the patient and family members, risk not limited to respiratory depression, accidental overdose, risk of fall, altered menta l status, constipation, dependency, addiction, withdrawn, sudden . Plan discussed with: The pain plan of ca re has been discussed with the patient and the nursing staff. Patient is in agr eement with the following plan of care and wishes to proceed. Quest ions and concerns have been answered to the patient' s satisfaction. Patient has verbalized consueloan iqra. Plan discussed with: patient Electronically Signed by Emy Mayes LINK CUTTER on 0 02/24/22 at 1256 RPT #:[id number] END OF REPORT 2022-02-23 [facility] 09:52:00-00:00 [facility] Prog.Note-Vancomycin REPORT#:[id number] REPORT STATUS: Signed DATE:02/23/22 TIME: 951 PATIENT: PEDRO MCGREGOR UNIT #: [id number] ROOM/BED: [place] [id number] : 54 AGE: 66 SEX: M ATTEND: Jean-Paul Ward od, MD ADM AUTHOR: Luigi Cornelius [facility] * ALL edits or amendments must be made on the el Brass Monkey/computer document * See Addendum Vancomycin Vancomycin Medication Therapy Goal: AUC 400-600 mcg*hr/mL Indication for treatment: Osteomyelitis Site of infection: known Day of therapy: 9 Weight: Actual weight (kg): 104.4 VS and I/O: Vital Signs Date Temp Pulse Resp B/P B/P Mean Pulse Ox FiO2 02/20-02/23 97.5-99.5 59-126 9- 95-144/52-69 0.0-94 83-98 72 hours ending at 0700 02/23 0700 02/22 1900 02/22 0700 02/21 1900 02/20 0700 1900 Intake 250 9440 118 4846.00 250.00 910.00 Total Output 200 2150 7522 679 7014 Total Balance 50 -1050 240 -630.00 -350.00 -890.00 Intake, IV 120.00 250.00 110.00 Intake, 250 4614 389 3760 800 Oral Number 1 1 Bowel Movements Output, 200 2150 4423 275 6496 Urine Patient 104.4 kg Weight Weight Bed scale Measuremen t Method 72 Hour I O Total 02/23 0702/22 0702/21 0700 Intake Total 1350 1360.00 1160.00 Output Total 2350 1750 2400 Balance -1000 -390.00 -1240.00 Drug admin history: Lab Lab Level SCr Info Software Integration Developer Med Dose Inte raction/Dialysis Date/Time Date/Time Notes: Treatment plan: consult, cont current regimen/do se Rationale: HPI: This is a 66 year-old male with a PMH of HT N, T2DM, PVD, OM/septic arthritis of left foot/ankle. Pharmacy has been consulted manage vancomycin. Consulting provider: Ronak Hein MD Indication: OM AUC goal: 400-600 mcg*hr/ml Day of therapy: 9 of 42 Concurrent antibiotics: * Ceftriaxone 02/23 Assessment and Plan: * 02/17 WBC 13.1 * Tmax 36.9, afebrile over 24 hours Microbiology: * 02/17 left ankle aspirate cx - E coli (R-cefaz jamin), klebsiella oxytoca (I- cefazolin), E. faecalis (S-amp) * 02/17 left ankle wound cx - GNR (aerob ic), gamma streptococcus (broth only), * 02/17 left food wound - gram positive cocci, G NR x2, gamma streptococcus Imaging: * None recent Renal: * BUN/Scr 12/14.1 * CrCl 85 ml/min (adj BW) * UOP 2350 ml over 24 hours Dosing/monitoring: * Currently on 1500 mg vancomycin iv q24h. Plan: * Plan to dose 1500 mg ( 14 mg/kg) IV q24 (same total daily dose) * Plan to start AUC monitoring with peak and tro ugh level if not discharged. Electronically Signed by Luigi Cornelius [facility] on 02/23 at 0957 Addendum 1: 02/24/22 1633 by Luigi Cornelius [facility] afebrile, no updated labs, SCr pending, UOP 1500 ml/24hrs. Day 10. On 1500 mg vancomycin iv q24h. Trough ordered 02/24@1600. Electronically Signed by Luigi Cornelius [facility] on 02/24 at 1638 RPT #:[id number] END OF REPORT 2022-02-23 [facility] 08:35:00-00:00 [facility] ([facility]) Discharge Summary REPORT#:[id number] REPORT STATUS: Signed DATE:02/23/22 TIME: 834 PATIENT: PEDRO MCGREGOR UNIT #: [id number] ROOM/BED: [place] [id number] : 54 AGE: 66 SEX: M ATTEND: Jean-Paul Ward od, MD ADM AUTHOR: Lexa Samson LINK CUTTER * ALL edits or amendments must be made on the Material Mix/computer document * Lexa Samson 02/23/22 0835: PCP PCP PCP: PCP: Hayden Yates DO Discharge to: [place] [facility] [place] Information Date of admission: Observation Start Date: 02/09/22 Date of admission: 02/11/22 Discharge date: 02/23/22 Discharge diagnosis: - Recurrent left foot osteomyelitis. - Infected wound left foot/Abscess left foot s/p I D. - Left foot pain, status post recent procedure. - Leukocytosis. - Hypokalemia-replaced - Hypomagnesemia-replaced. - Recently treated for bacteremia Enterococcal f aecalis. - History of hypertension. - History of hyperlipidemia. - History of depression, mood disorder. - History of diabetes type 2. - History of diabetic foot ulcer, nonhealing. - History of liver disease. Hospital course: 66-year-old male with a past medical history of a left foot osteomyelitis, nonhealing wound on the left foot, recently joseph ender for the Enterococcal faecalis bacteremia, history of hypertension, di abetes type 2, liver disease, heart disease, diabetic neuropathy, morb id obesity, UTI, came to the Emergency Room from the SNF for the low blood pressure and elevated heart rate. The patient recently discharged from the hospital to the SNF after he was treated for bacteremia, Enterococcal faecalis and a left foot osteomyelitis. He was s ent to SNF on Zosyn 3.375 g q.8. The patient also had an open reduction of b imalleolar ankle fracture/ external fixation applicatio n of the tibiotalar disarticulation and subluxation and bimalleolar ankle fracture. He was diangosed with Recurrent left foot OM and non healing wound. He was started on IV ABX, pain meds. He was seen by ID and Podiatry. He had a I D per Podiatry for his wound. He will go on Daptomycin and rocephine per ID. Pt. condition on discharge: improved, stable Allergies: Allergies: hydrocodone (Coded, Mild, NAUSIATED, 01/05/22) Med Rec Med Rec Discharge meds: Stop taking the following medications: PIPERACILLIN/TAZOBACTAM (ZOSYN) 3.375 GRAM VIAL 3.375 GRAM INTRAVENOUS EVERY 8 HOURS. Qty = 30 Continue taking these medications: ASPIRIN (ASPIRIN) 81 MG TAB.CHEW 81 MILLIGRAM ORAL DAILY. ATORVASTATIN (LIPITOR) 80 MG TAB 80 MILLIGRAM ORAL DAILY. CITALOPRAM (CeleXA) 40 MG TAB 40 MILLIGRAM ORAL DAILY. ENOXAPARIN (LOVENOX) 40 MG/0.4 ML DISP.SYRIN 40 MILLIGRAM SUBCUTANE. DAILY. Instructions: EVERY MORNING FOR 21 DAYS STARTING 12/30/2021 INSULIN LISPRO (HumaLOG) 100 UNIT/ML VIAL 10 UNITS SUBCUTANE. BEFORE BREAKFAST AND LUNCH. HYDROcodone/APAP (HYDROcodone/APAP 5/325) 5 MG-3 25 MG TAB 1 TABLET ORAL EVERY 6 HOURS NEEDED. as neede d for PAIN SCALE 7-10 INSULIN GLARGINE (LANTUS SOLOSTAR (15mL)) 100 UN IT/ML (3 ML) PEN.INJCTR 35 UNITS SUBCUTANEOUS BEDTIME. METOPROLOL TARTRATE (LOPRESSOR) 25 MG TAB 25 MILLIGRAM ORAL ONCE PER DAY TAMSULOSIN ER (FLOMAX) 0.4 MG CAP.SR.24H 0.4 MILLIGRAM ORAL DAILY. INSULIN LISPRO (HumaLOG) 100 UNIT/ML VIAL 10 UNITS SUBCUTANEOUS BEFORE DINNER. URSODIOL (ACTIGALL) 300 MG CAP TWICE DAILY. AMITRIPTYLINE (ELAVIL) 25 MG TAB 25 MILLIGRAM ORAL DAILY. OMEPRAZOLE ER (PriLOSEC) 40 MG CAP.DR 40 MILLIGRAM ORAL DAILY. GABAPENTIN (NEURONTIN) 300 MG CAP 300 MILLIGRAM ORAL BEDTIME. Qty = 30 traMADol (ULTRAM) 50 MG TAB 50 MILLIGRAM ORAL EVERY 4 HOURS NEEDED. as n eeded for PAIN SCALE 4-6 Qty = 30 FUROSEMIDE (LASIX) 40 MG TAB 40 MILLIGRAM ORAL DAILY. Qty = 30 FERROUS SULFATE (FEOSOL) 325 MG (65 MG IRON) TAB 325 MILLIGRAM ORAL TWICE DAILY. Qty = 60 Start taking the following new medications: cefTRIAXone (ROCEPHIN) 2 GRAM VIAL 2 GRAM INTRAVENOUS DAILY. Qty = 30 No Refills DAPTOmycin (CUBICIN) 500 MG VIAL 1,000 MILLIGRAM INTRAVENOUS EVERY 24 HOURS. Qty = 30 No Refills Objective VS/I O Last Documented: Result Date Time Pulse Ox 95 02/23 743 B/P 114/69 02/23 743 B/P Mean 84.0 02/23 743 Temp 36.5 02/23 743 Pulse 76 02/23 743 Resp 18 02/23 743 O2 Delivery Room air 02/23 0355 O2 Flow Rate 6 02/17 1643 24 hour I O ending at 0700: 02/23 0700 02/22 1900 Intake Total 250 1100 Output Total 200 2150 Balance 50 -1050 Intake, Oral 250 1100 Number 1 Bowel Movements Output, Urine 200 2150 PATIENT WEIGHT: Weight (lb): 230 Weight (oz): 2.6 Weight (kg): 104.400 General appearance: alert, awake, oriented Head/Eyes: atraumatic, normocephalic, PERRLA Cardiovascular: normal capillary refill, regular rate rhythm Respiratory: clear to auscultation, no distress, aerating well, symmetric expansion GI: soft, non-tender Discharge Instructions PCP )( Discharge to: Home Health wPlan of Care Discharge Instructions Additional Discharge Routines: PCP Follow-Up, Co nsultant Follow-Up )( Diet: Diabetic, Cardiac )( Activity: Resume Normal Activity, As Tolerate d Follow-up Appointments PCP follow up: PCP: Hayden Yates DO PCP follow up timeframe: In 2-3 weeks Consulting provider 1: Provider 1: Orlin Charles MD Specialty: Infectious Disease Consult follow up timeframe: In 2-3 weeks Consulting provider 2: Provider 2: Faby Wharton DPM Specialty: Podiatry Follow up timeframe: In 2-3 weeks Chelo Ward 02/24/22 1759: Attestations Physician Attestation Agree w/findings plan: Patient seen and examined, I agree with the findings and plans as documented by Lexa Samson NP Electronically Signed by Lexa Samson NP on 01/05 at 0838 Electronically Signed by Chelo Ward MD on 0 02/24/22 at 1802 RPT #:[id number] END OF REPORT 2022-02-23 [facility]00[facility]00 [facility] REPORT#:[id number] REPORT STATUS: Signed DATE:02/23/22 TIME: 08 PATIENT: PEDRO MCGREGOR UNIT #: [id number] ROOM/BED: [place] [id number] : 54 AGE: 66 SEX: M ATTEND: Jean-Paul Ward od, MD ADM AUTHOR: Lexa Samson LINK CUTTER * ALL edits or amendments must be made on the Material Mix/computer document * Lexa Samson 02/23/22 0832: Subjective Chief complaint: He is tolerating wound care. Left foot pain is controlled with meds. Breathing is stable. No CP, fever, chills. BP and HR stable. Review of Systems Constitutional: Reports: fatigue, generalized weakness. Allergy/Immun: Denies: anaphylaxis, hives, itching, rhinorrhea. ENT: Denies: ear ringing, hearing loss, nose bleeding, sore throat, throat swelling. Respiratory: Denies: GIBBS (dyspnea on exertion), hemoptysis, p leurisy, pleuritic pain, productive cough (sputum), SOB. Cardiovascular: Denies: chest pain, edema, orthopnea, palpitatio ns. GI: Denies: anorexia, diarrhea, hematemesis, melena. : Denies: flank pain, hematuria, penile discharge, testicular pain. Endocrine: Denies: polyuria. Neuro: Denies: change in LOC, gait problem. Objective General VS/I O: Vital Signs: Date Time Temp Pulse Resp B/P B/P Pulse O2 O2 F low FiO2 Mean Ox Delivery Rate 02/23 0744 36.5 76 18 114/69 84.0 95 02/23 0355 37.0 81 16 128/69 88.6 95 Room air 02/22 2213 37.2 79 16 114/62 79.4 97 Room air 02/22 1950 36.5 85 16 95/55 68.1 96 Room air 02/22 1626 36.7 79 17 105/54 0.0 96 Room air 02/22 1240 36.7 75 17 105/52 0.0 94 02/22 1001 98 116/56 78 94 24 hour I O ending at 0700: 02/23 0700 02/22 1900 Intake Total 250 1100 Output Total 200 2150 Balance 50 -1050 Intake, Oral 250 1100 Number 1 Bowel Movements Output, Urine 200 2150 PATIENT WEIGHT: Weight (lb): 230 Weight (oz): 2.6 Weight (kg): 104.400 Medications: Active Meds + DC'd Last 24 Hrs Vancomycin HCl (VANCOMYCIN HCL) 1,000 MG ASDIR I RR Sodium Chloride (SODIUM CHLORIDE IRRIG BAG) 1,0 00 ML Vancomycin HCl (VANCOMYCIN HCL) 1,500 MG Q24H IV Sodium Chloride (SODIUM CHLORIDE 0.9%) 250 ML Oxycodone/Acetaminophen (PERCOCET 5/325MG TAB) 2 TAB Q4H PRN PRN PO Sodium Hypochlorite (DAKIN'S 1/4 STR (0.125%) 47 3ML) 1 APPLIC MOWEFR TOPICAL Ceftriaxone Sodium (ROCEPHIN) 2,000 MG Q24H IV Sodium Chloride (SODIUM CHLORIDE) 20 ML Miscellaneous Information (VANCOMYCIN PHARMACY T O DOSE) 1 EACH ASDIR IV (CKD) Sterile Water (WATER FOR IRRIGATION) DRESSING CH SHERICE ASDIR PRN IRR Glucagon (GLUCAGON) 1 MG ASDIR PRN IM Citalopram Hydrobromide (CeleXA) 20 MG DAILY PO Duloxetine HCl (CYMBALTA) 30 MG DAILY PO Furosemide (LASIX) 40 MG DAILY PO Lactulose (LACTULOSE) 20 GM BID PO Tamsulosin HCl (Flomax 0.4 mg) 0.4 MG DAILY PO Aspirin (ASPIRIN) 81 MG C BK PO Insulin Human Lispro (HUMALOG) 10 UNIT AC BK GRACE SUBQ Pantoprazole (PROTONIX) 40 MG DAILY 0600 PO Atorvastatin Calcium (LIPITOR) 80 MG BEDTIME PO Ferrous Sulfate (FERROUS SULFATE) 325 MG BID PO Gabapentin (NEURONTIN) 300 MG BEDTIME PO Ursodiol (ActigalL) 300 MG BID PO Docusate Sodium (COLACE) 100 MG DAILY PO Acetaminophen (TYLENOL) 650 MG Q4H PRN PRN PO Enoxaparin Sodium (lovENOX) 40 MG DAILY 1700 SUB Q Metoprolol Tartrate (LOPRESSOR) 25 MG DAILY PO Insulin Human Lispro (HUMALOG) 0 AC HS SUBQ Insulin Human Lispro (HUMALOG) 10 UNIT AC DIN MARR BQ Hydralazine HCl (APRESOLINE) 10 MG Q6H PRN PRN I V Ondansetron HCl (ZOFRAN) 4 MG Q4H PRN PRN IV Dietitian nutrition assessment The data set between the solid lines has been im ported from the dietitian's assessment. BMI Calculated: 29.0 Nutrition related diagnosis: Nutrition diagnosis details: Nutrition problem: Nutrition etiology: Nutrition signs and symptoms: Nutrition prescription: Dietitian name: Assessment completed: Physical Exam General appearance: alert, awake, oriented Head/Eyes: atraumatic, normocephalic, PERRLA Neck: full range of motion, normal thyroid, supp le/no meningismus Cardiovascular: normal capillary refill, normal heart sounds, regular rate rhythm Respiratory: aerating well, symmetric expansion, no distress Abdomen: normal bowel sounds, soft Genitourinary: no flank pain, no urinary cathete r Extremities: no calf tenderness, no clubbing, no cyanosis Musculoskeletal: no muscle spasm Neuro/METAL WELDER: alert, oriented X 3, CNII-XII intact Psychiatry: normal affect, normal mood Results Findings/Data: Laboratory Tests 02/22 02/22 02/22 1949 1624 1239 Chemistry POC Glucose (70 - 110 MG/DL) 202 H 140 H 236 H Results: labs reviewed, vital signs reviewed, vi maida signs stable, current med profile rev'd Treatment Prophylaxis Treatment Prophylaxis Oxygen: room air Diagnosis, Assessment Plan Hospital course to date: ASSESSMENT AND PLAN: - Recurrent left foot osteomyelitis. - Infected wound left foot/Abscess left foot s/p I D. - Left foot pain, status post recent procedure. - Leukocytosis. - Hypokalemia-replaced - Hypomagnesemia-replaced. - Recently treated for bacteremia Enterococcal f aecalis. - History of hypertension. - History of hyperlipidemia. - History of depression, mood disorder. - History of diabetes type 2. - History of diabetic foot ulcer, nonhealing. - History of liver disease. PLAN: Floor. He needs Semi/Fully electric Hospital bed to all eviate Pain and assist with Position changes due to his Left foot OM. S/p I D of left foot. will go home on IV ABX per ID today. Continue to monitor blood pressure and heart rat e. ID following for OM. Pain medication. Antiemetics. Follow labs and replace as needed. SCD for DVT prophylaxis. Continue home medication. Glycemic control, Accu-Cheks, sliding scale and diabetic diet. Monitor. Code status: full code Plan discussed with: patient, admitting physicia n, consultants, nurse Chelo aWrd 02/24/22 1092: Attestations Physician Attestation Agree w/findings plan: Patient seen and examined, I agree with the findings and plans as documented by Lexa Samson NP Electronically Signed by Lexa Samson NP on 01/05 at 0835 Electronically Signed by Chelo Ward MD on 0 02/24/22 at 1802 RPT #:[id number] END OF REPORT 2022-02-22 [facility] 15:04:00-00:00 [facility] Podiatry Progress Note REPORT#:[id number] REPORT STATUS: Signed DATE:02/22/22 TIME: 1504 PATIENT: PEDRO MCGREGOR UNIT #: [id number] ROOM/BED: [place] [id number] : 54 AGE: 66 SEX: M ATTEND: Max Ward MD ADM AUTHOR: Suzy Ahmadi DPM * ALL edits or amendments must be made on the Material Mix/computer document * Subjective Chief complaint: foot infection HPI: Pt seen at bedside. Denies any new issues. Objective General VS: Last Documented: Result Date Time Pulse Ox 94 02/22 1240 B/P 105/52 02/22 1240 B/P Mean 0.0 02/22 1240 Temp 36.7 02/22 1240 Pulse 75 02/22 1240 Resp 17 02/22 1240 O2 Delivery Room air 02/22 0831 O2 Flow Rate 6 02/17 1643 PATIENT WEIGHT: Weight (lb): 230 Weight (oz): 2.6 Weight (kg): 104.400 Physical Exam Wound/incision: Location: Left foot DP and PT pulses 1/4 barely palpable. Light touch and protective sensation greatly de creased left foot. Extensive wound from the medial aspect of the l eft hindfoot to the medial aspect of the left midfoot. Wide open with thick purulent drainage very mal odorous. Ulcer plantar left first metatarsal head is sup erficial. Erythema of the left foot. No crepitation External fixator is in place. Foot is underneath the leg.. LE vascular pulse assess: 1+ L posterior tibialis, 1+ L dorsalis pedis Diagnosis, Assessment Plan Free Text A P: External fixator left lower extremity Cellulitis and draining wound medial left foot Diabetes with peripheral neuropathy Superficial ulcer left forefoot Status post external fixation application Wound left medial ankle: Apply vera flow wound V AC every Monday. nwb Electronically Signed by Suzy Ahmadi DPM on 02/22 at 1505 RPT #:[id number] END OF REPORT 2022-02-22 [facility] 12:04:00-00:00 [facility] ([facility]) Infectious Dis. Progress Note REPORT#:[id number] REPORT STATUS: Signed DATE:02/22/22 TIME: 1204 PATIENT: PEDRO MCGREGOR UNIT #: [id number] ROOM/BED: [place] [id number] : 54 AGE: 66 SEX: M ATTEND: Jean-Paul Ward od, MD ADM AUTHOR: Ronak Hein MD * ALL edits or amendments must be made on the Material [email or web address] document * Subjective Chief complaint: Follow-up on left foot osteomyelitis HPI: Patient denies acute or new complaints today. No major overnight events. Objective General VS/I O: Vital Signs Date Temp Pulse Resp B/P B/P Mean Pulse Ox FiO2 02/21-02/22 97.7-99.5 64-111 11-22 108-144/56-6 6 0.0-94 93-98 Last Documented: Result Date Time Pulse Ox 94 02/22 1001 B/P 116/56 02/22 1001 B/P Mean 78 02/22 1001 Pulse 98 02/22 1001 O2 Delivery Room air 02/22 0831 Temp 97.7 02/22 0831 Resp 17 02/22 0831 O2 Flow Rate 6 02/17 1643 Vital Signs: Date Time Temp Pulse Resp B/P B/P Pulse O2 O2 F low FiO2 Mean Ox Delivery Rate 02/22 1001 98 116/56 78 94 02/22 0831 97.7 98 17 121/65 83.5 96 Room air 02/22 0334 98.1 91 18 118/64 81.8 96 02/21 2240 99.5 92 18 116/58 0.0 98 02/21 1933 99.3 86 18 108/58 0.0 96 02/21 1835 98 15 94 02/21 1800 87 21 95 02/21 1719 97.7 74 12 144/65 0.0 96 Room air 02/21 1712 72 11 144/65 94 98 02/21 1700 76 17 95 02/21 1600 111 22 93 02/21 1500 69 11 94 02/21 1400 67 12 95 02/21 1300 80 19 95 02/21 1231 98.1 64 17 124/66 85.6 98 Room air 24 hour I O ending at 0700: 02/22 0700 02/21 1900 Intake Total 240 1120.00 Output Total 1750 Balance 240 -630.00 Intake, IV 120.00 Intake, Oral 240 1000 Number 1 Bowel Movements Output, Urine 1750 PATIENT WEIGHT: Weight (lb): 230 Weight (oz): 2.6 Weight (kg): 104.400 Physical Exam General appearance: alert, awake, no acute distr ess Wound/incision: Location: left foot wound + external fixator in place Cardiovascular: regular rate rhythm, no murmur Respiratory: clear to auscultation, no distress Abdomen: non-tender, soft, no distention Extremities: no cyanosis, no edema, left lower extremity in an external fixator Musculoskeletal: full range of motion, normal in spection Neuro/METAL WELDER: alert, oriented X 3 Skin: dry, no rash Diagnosis, Assessment Plan Free Text A P: Assessment: *Osteomyelitis and septic arthritis of the left foot and ankle *HTN *Type 2 diabetes with neuropathy and nephropathy *Peripheral vascular disease -Afebrile; although with low-grade tempe rature with last 24-hour T-max of 37.5 C last night. -Leukocytosis of 13.1 on previous CBC noted; tod ay's CBC not available. -ESR 97; CRP 103. -Wound culture with 2 different colonies of E. c karina, MRSA and Enterococcus faecalis from broth only. -Went back to the OR 02/17/22 and is now s/p I D. Overall findings of necrotic tendon, necrotic bone noted. -Surgical specimen with E coli, Klesbiella oxyto ca and E faecalis Plan: -S/p treatment with piperaci llin-tazobactam till 02/11/2022 for prior isolates ( E. coli and E faecalis) from December. -Based on recent cultures from this admission, a ntibiotic therapy switched to ceftriaxone and vancomycin on 02/14/2022. -Would continue same. -Based on overall finding of necrotic tendon, ne crotic bone, would plan on another prolonged course of antibiotics of 4 to 6 weeks. -Tentative stop date: 03/28/2022. -Antibiotics being arranged via home health. Ord ers placed yesterday. -On discharge, would switch vancomycin t o daptomycin 1000 mg IV every 24 hours for ease of monitoring. Would continue ceftriaxo ne at 2 g IV daily. -Safety labs while on IV ant ibiotics (on discharge): CBC with differential, CMP, ESR, CRP and CK on a weekly basis. Patient to follow-up with ID clinic in 2 to 3 we eks after discharge. CURRENT ANTIMICROBIALS: Ceftriaxone + vancomycin, started 02/14/2022, te ntative stop date: 03/28/2022 Day 8 CM orders placed to assist with Home IV abx arra ngement/HH Electronically Signed by Ronak Hein MD on 02/13 at 1210 RPT #:[id number] END OF REPORT 2022-02-22 [facility] 11:19:00-00:00 [facility] ([facility]) Pain Management Progress Note REPORT#:[id number] REPORT STATUS: Signed DATE:02/22/22 TIME: 1119 PATIENT: PEDRO MCGREGOR UNIT #: [id number] ROOM/BED: [place] [id number] : 54 AGE: 66 SEX: M ATTEND: Jean-Paul Ward od, MD ADM AUTHOR: Emy Mayes NP * ALL edits or amendments must be made on the Material Mix/computer document * Subjective Chief complaint: Foot Wound. Interval History 02/22/2021 Patient chart, note and event reviewed Patient is laying in bed, fully alert, awake hem odynamically stable S/P debridment Left ankle Wound Vac in place bhardwaj in place Pain is controlled Mood is ok Sleep is ok. Denied insomnia No constipation Review of Systems Additional notes: Review was conducted and was negative except for what's noted in the HPI and Medical History. The following systems were revi ewed: Constitutional, cardiovascular, respiratory, gastrointes tinal, genitourinary, musculoskeletal, neurologic, psychiatric, endocrinological, and h ematological. Objective General VS/I O: Vital Signs Date Temp Pulse Resp B/P B/P Mean Pulse Ox FiO 2 02/21-02/22 97.7-99.5 59-111 11- 108-144/58-6 6 0.0-94 93-98 Last Documented: Result Date Time Pulse Ox 96 02/22 830 B/P 121/65 02/22 830 B/P Mean 83.5 02/22 830 O2 Delivery Room air 02/22 830 Temp 97.7 02/22 830 Pulse 98 02/22 830 Resp 17 02/22 830 O2 Flow Rate 6 02/17 1643 24 hour I O ending at 0700: 02/22 0700 02/21 1900 Intake Total 240 1120.00 Output Total 1750 Balance 240 -630.00 Intake, IV 120.00 Intake, Oral 240 1000 Number 1 Bowel Movements Output, Urine 1750 PATIENT WEIGHT: Weight (lb): 230 Weight (oz): 2.6 Weight (kg): 104.400 Medications: Active Meds + DC'd Last 24 Hrs Vancomycin HCl (VANCOMYCIN HCL) 1,000 MG ASDIR I RR Sodium Chloride (SODIUM CHLORIDE IRRIG BAG) 1,0 00 ML Vancomycin HCl (VANCOMYCIN HCL) 1,750 MG Q24H IV (DC) Sodium Chloride (SODIUM CHLORIDE 0.9%) 500 ML Vancomycin HCl (VANCOMYCIN HCL) 1,500 MG Q24H I V Sodium Chloride (SODIUM CHLORIDE 0.9%) 250 ML Oxycodone/Acetaminophen (PERCOCET 5/325MG TAB) 2 TAB Q4H PRN PRN PO Sodium Hypochlorite (DAKIN'S 1/4 STR (0.125%) 47 3ML) 1 APPLIC MOWEFR TOPICAL Ceftriaxone Sodium (ROCEPHIN) 2,000 MG Q24H IV Sodium Chloride (SODIUM CHLORIDE) 20 ML Miscellaneous Information (VANCOMYCIN PHARMACY T O DOSE) 1 EACH ASDIR IV (CKD) Sterile Water (WATER FOR IRRIGATION) DRESSING CH SHERICE ASDIR PRN IRR Glucagon (GLUCAGON) 1 MG ASDIR PRN IM Citalopram Hydrobromide (CeleXA) 20 MG DAILY PO Duloxetine HCl (CYMBALTA) 30 MG DAILY PO Furosemide (LASIX) 40 MG DAILY PO Lactulose (LACTULOSE) 20 GM BID PO Tamsulosin HCl (Flomax 0.4 mg) 0.4 MG DAILY PO Aspirin (ASPIRIN) 81 MG C BK PO Insulin Human Lispro (HUMALOG) 10 UNIT AC BK GRAEC SUBQ Pantoprazole (PROTONIX) 40 MG DAILY 0600 PO Atorvastatin Calcium (LIPITOR) 80 MG BEDTIME PO Ferrous Sulfate (FERROUS SULFATE) 325 MG BID PO Gabapentin (NEURONTIN) 300 MG BEDTIME PO Ursodiol (ActigalL) 300 MG BID PO Docusate Sodium (COLACE) 100 MG DAILY PO Acetaminophen (TYLENOL) 650 MG Q4H PRN PRN PO Enoxaparin Sodium (lovENOX) 40 MG DAILY 1700 SUB Q Metoprolol Tartrate (LOPRESSOR) 25 MG DAILY PO Insulin Human Lispro (HUMALOG) 0 AC HS SUBQ Insulin Human Lispro (HUMALOG) 10 UNIT AC DIN MARR BQ Hydralazine HCl (APRESOLINE) 10 MG Q6H PRN PRN I V Ondansetron HCl (ZOFRAN) 4 MG Q4H PRN PRN IV Dietitian nutrition assessment The data set between the solid lines has been im ported from the dietitian's assessment. BMI Calculated: 29.0 Nutrition related diagnosis: Nutrition diagnosis details: Nutrition problem: Nutrition etiology: Nutrition signs and symptoms: Nutrition prescription: Dietitian name: Assessment completed: Physical Exam General appearance: alert, awake, oriented, no a cute distress, pleasant, conversational, mental status normal, no respira tory distress Wound/Incision: Location: left ankle debridment. wound vac in place Head/eyes: atraumatic, PERRLA Neck: full range of motion, non-tender Cardiovascular: normal capillary refill, regular rate rhythm Abdomen: soft Extremities: moves all (left leg wound/ external fix) Neuro/METAL WELDER: alert Results Findings/data: Laboratory Tests: 02/22 02/21 02/21 02/21 0830 1932 1714 1229 Chemistry POC Glucose (70 - 110 MG/DL) 241 H 183 H 178 H 227 H Diagnosis, Assessment Plan Free text A P: Assessment/Plan Daily Plan 02/22/2021 Patient assessed. Pain is controlled with curren t pain medical management. Continue IV antibiotics per ID. Plan 1. Acute complex pain syndrome 2/2 left leg oste omilitis -D/C Dilaudid 0.5mg IV Q4H PRN for pain 7-10, s econd line -oxycodone 10/325 q4H PRN for pain 7-10 first l ine -Tylenol 650 mg PO Q6h for pain 1-3 2. Neuropathic pain -gabapentin 300mg PO Bedtime -cymbalta 30mg twice a day 3. Muscle spasm flexeril 5mg po TID 4. Bowel Regimen - colace -continue pain regimen as above -Monitor for S/E such as AMS , Lethargy/sedation, changes in respiratory function -Continue BP parameters -[facility]( Acute Pain services) will continue to foll ow -please call pain management for any pain-relate d concerns or questions Goal: Daily pain control to improve function and /or quality of life ([x]) Pain control until condition naturally res olves ([x]) Inpatient pain control ([x]) Improved sleep cycle ([x]) all narcotics medications will be adjusted according to the patient's medical condition during the hospital stay Alll diagnostic images/lab and medical records d uring the course of this admission as well as ASSISTANT CHIEF TRAIN DISPATCHER records reviewed Risk versus benefit of opiate medications: All r isk and benefit were reviewed with the patient and family members, risk not limited to respiratory depression, accidental overdose, risk of fall, altered menta l status, constipation, dependency, addiction, withdrawn, sudden . Plan discussed with: The pain plan of ca re has been discussed with the patient and the nursing staff. Patient is in agr eement with the following plan of care and wishes to proceed. Quest ions and concerns have been answered to the patient' s satisfaction. Patient has verbalized understan iqra. Plan discussed with: patient Electronically Signed by Emy Mayes NP on 0 02/22/22 at 1202 RPT #:[id number] END OF REPORT 2022-02-22 [facility] 09:57:00-00:00 [facility] ([facility]) Hospitalist Progress Note REPORT#:[id number] REPORT STATUS: Signed DATE:02/22/22 TIME: 956 PATIENT: PEDRO MCGREGOR UNIT #: [id number] ROOM/BED: [place] [id number] : 54 AGE: 66 SEX: M ATTEND: Jean-Paul Ward od, MD ADM AUTHOR: Lexa Samson LINK CUTTER * ALL edits or amendments must be made on the Material Mix/computer document * Lexa Samson 02/22/22 0957: Subjective Chief complaint: He is doing better. Tolerating wound care. Left foot pain is controlled with meds. Breathing is stable. No CP, fever, chills. BP and HR stable. Review of Systems Constitutional: Reports: fatigue, generalized weakness. Allergy/Immun: Denies: anaphylaxis, itching. ENT: Denies: ear ringing, mouth pain, nose bleeding, sinus problem, sore throat. Respiratory: Denies: GIBBS (dyspnea on exer tion), parox nocturnal dyspnea, pleurisy, pleuritic pain, pneumonia. Cardiovascular: Denies: chest pain, palpitations. GI: Denies: constipation, diarrhea, dysphagia, hemat emesis. : Denies: flank pain, hematuria, nocturia, penile discharge, testicular pain. Heme: Denies: bleeding, bruising. Neuro: Denies: bowel dysfunction, confusion, gait probl em, lightheaded, seizure. Objective General VS/I O: Vital Signs: Date Time Temp Pulse Resp B/P B/P Pulse O2 O2 Flow FiO2 Mean Ox Delivery Rate 02/22 0831 36.5 98 17 121/65 83.5 96 Room air 02/22 0334 36.7 91 18 118/64 81.8 96 02/21 2240 37.5 92 18 116/58 0.0 98 02/21 1933 37.4 86 18 108/58 0.0 96 02/21 1835 98 15 94 02/21 1800 87 21 95 02/21 1719 36.5 74 12 144/65 0.0 96 Room air 02/21 1712 72 11 144/65 94 98 02/21 1700 76 17 95 02/21 1600 111 22 93 02/21 1500 69 11 94 02/21 1400 67 12 95 02/21 1300 80 19 95 02/21 1231 36.7 64 17 124/66 85.6 98 Room air 02/21 1200 59 12 96 02/21 1100 73 13 95 02/21 1000 72 11 95 24 hour I O ending at 0700: 02/22 0700 02/21 1900 Intake Total 240 1120.00 Output Total 1750 Balance 240 -630.00 Intake, IV 120.00 Intake, Oral 240 1000 Number 1 Bowel Movements Output, Urine 1750 PATIENT WEIGHT: Weight (lb): 230 Weight (oz): 2.6 Weight (kg): 104.400 Medications: Active Meds + DC'd Last 24 Hrs Vancomycin HCl (VANCOMYCIN HCL) 1,000 MG ASDIR I RR (UNV) Sodium Chloride (SODIUM CHLORIDE IRRIG BAG) 1,0 00 ML Vancomycin HCl (VANCOMYCIN HCL) 1,750 MG Q24H IV (DC) Sodium Chloride (SODIUM CHLORIDE 0.9%) 500 ML Vancomycin HCl (VANCOMYCIN HCL) 1,500 MG Q24H IV Sodium Chloride (SODIUM CHLORIDE 0.9%) 250 ML Oxycodone/Acetaminophen (PERCOCET 5/325MG TAB) 2 TAB Q4H PRN PRN PO Sodium Hypochlorite (DAKIN'S / STR (0.125%) 47 3ML) 1 APPLIC MOWEFR TOPICAL Ceftriaxone Sodium (ROCEPHIN) 2,000 MG Q24H IV Sodium Chloride (SODIUM CHLORIDE) 20 ML Miscellaneous Information (VANCOMYCIN PHARMACY T O DOSE) 1 EACH ASDIR IV (CKD) Sterile Water (WATER FOR IRRIGATION) DRESSING CH SHERICE ASDIR PRN IRR Glucagon (GLUCAGON) 1 MG ASDIR PRN IM Citalopram Hydrobromide (CeleXA) 20 MG DAILY PO Duloxetine HCl (CYMBALTA) 30 MG DAILY PO Furosemide (LASIX) 40 MG DAILY PO Lactulose (LACTULOSE) 20 GM BID PO Tamsulosin HCl (Flomax 0.4 mg) 0.4 MG DAILY PO Aspirin (ASPIRIN) 81 MG C BK PO Insulin Human Lispro (HUMALOG) 10 UNIT AC BK GRACE SUBQ Pantoprazole (PROTONIX) 40 MG DAILY 0600 PO Atorvastatin Calcium (LIPITOR) 80 MG BEDTIME PO Ferrous Sulfate (FERROUS SULFATE) 325 MG BID PO Gabapentin (NEURONTIN) 300 MG BEDTIME PO Ursodiol (ActigalL) 300 MG BID PO Docusate Sodium (COLACE) 100 MG DAILY PO Acetaminophen (TYLENOL) 650 MG Q4H PRN PRN PO Enoxaparin Sodium (lovENOX) 40 MG DAILY 1700 SUB Q Metoprolol Tartrate (LOPRESSOR) 25 MG DAILY PO Insulin Human Lispro (HUMALOG) 0 AC HS SUBQ Insulin Human Lispro (HUMALOG) 10 UNIT AC DIN MARR BQ Hydralazine HCl (APRESOLINE) 10 MG Q6H PRN PRN I V Ondansetron HCl (ZOFRAN) 4 MG Q4H PRN PRN IV Dietitian nutrition assessment The data set between the solid lines has been im ported from the dietitian's assessment. BMI Calculated: 29.0 Nutrition related diagnosis: Nutrition diagnosis details: Nutrition problem: Nutrition etiology: Nutrition signs and symptoms: Nutrition prescription: Dietitian name: Assessment completed: Physical Exam General appearance: alert, awake, oriented Head/Eyes: atraumatic, normocephalic, PERRLA Neck: full range of motion, normal thyroid, supp le/no meningismus Cardiovascular: normal capillary refill, normal heart sounds, regular rate rhythm Respiratory: aerating well, symmetric expansion, no distress Abdomen: normal bowel sounds, soft Genitourinary: no flank pain, no urinary cathete r Extremities: no calf tenderness, no clubbing, no cyanosis Musculoskeletal: no muscle spasm Neuro/METAL WELDER: alert, oriented X 3, CNII-XII intact Psychiatry: normal affect, normal mood Results Findings/Data: Laboratory Tests 02/22 02/21 02/21 02/21 0830 1932 1714 1229 Chemistry POC Glucose (70 - 110 MG/DL) 241 H 183 H 178 H 227 H Results: labs reviewed, vital signs reviewed, vi maida signs stable, current med profile rev'd Treatment Prophylaxis Treatment Prophylaxis Oxygen: room air Diagnosis, Assessment Plan Hospital course to date: ASSESSMENT AND PLAN: - Recurrent left foot osteomyelitis. - Infected wound left foot/Abscess left foot s/p I D. - Left foot pain, status post recent procedure. - Leukocytosis. - Hypokalemia-replaced - Hypomagnesemia-replaced. - Recently treated for bacteremia Enterococcal f aecalis. - History of hypertension. - History of hyperlipidemia. - History of depression, mood disorder. - History of diabetes type 2. - History of diabetic foot ulcer, nonhealing. - History of liver disease. PLAN: CVN1. S/p I D of left foot. will go home on Monday per Podiatry. Continue to monitor blood pressure and heart rat e. ID following for OM. Pain medication. Antiemetics. Follow labs and replace as needed. SCD for DVT prophylaxis. Continue home medication. Glycemic control, Accu-Cheks, sliding scale and diabetic diet. Monitor. Code status: full code Plan discussed with: patient, admitting physicia n, consultants, nurse Chelo Ward 02/22/22 1825: Attestations Physician Attestation Agree w/findings plan: Patient seen and examined, I agree with the findings and plans as documented by Lexa Samson NP Electronically Signed by Lexa Samson NP on 12/05 at 0958 Electronically Signed by Chelo Ward MD on 0 02/22/22 at 1829 RPT #:[id number] END OF REPORT 2022-02-21 [facility] 19:22:00-00:00 [facility] Podiatry Progress Note REPORT#:[id number] REPORT STATUS: Signed DATE:02/21/22 TIME: 1921 PATIENT: PEDRO MCGREGOR UNIT #: [id number] ROOM/BED: [place] [id number] : 54 AGE: 66 SEX: M ATTEND: Jean-Paul Ward od, MD ADM AUTHOR: Faby Wharton DPM * ALL edits or amendments must be made on the el [employer]/computer document * Subjective Chief complaint: foot infection HPI: No complaints Objective General VS: Last Documented: Result Date Time Pulse Ox 94 02/21 1834 Pulse 98 02/21 1835 Resp 15 02/21 1834 B/P 144/65 02/21 1718 B/P Mean 0.0 02/21 1718 O2 Delivery Room air 02/21 1718 Temp 36.5 02/21 1718 O2 Flow Rate 6 02/17 1643 PATIENT WEIGHT: Weight (lb): 230 Weight (oz): 2.6 Weight (kg): 104.400 Medications: Active Meds + DC'd Last 24 Hrs Vancomycin HCl (VANCOMYCIN HCL) 1,750 MG Q24H IV (DC) Sodium Chloride (SODIUM CHLORIDE 0.9%) 500 ML Vancomycin HCl (VANCOMYCIN HCL) 1,500 MG Q24H IV Sodium Chloride (SODIUM CHLORIDE 0.9%) 250 ML Oxycodone/Acetaminophen (PERCOCET 5/325MG TAB) 2 TAB Q4H PRN PRN PO Vancomycin HCl (VANCOMYCIN HCL) 750 MG Q12H IV (DC) Sodium Chloride (SODIUM CHLORIDE 0.9%) 250 ML Sodium Hypochlorite (DAKIN'S /4 STR (0.125%) 47 3ML) 1 APPLIC MOWEFR TOPICAL Ceftriaxone Sodium (ROCEPHIN) 2,000 MG Q24H IV Sodium Chloride (SODIUM CHLORIDE) 20 ML Miscellaneous Information (VANCOMYCIN PHARMACY T O DOSE) 1 EACH ASDIR IV (CKD) Sterile Water (WATER FOR IRRIGATION) DRESSING CH SHERICE ASDIR PRN IRR Glucagon (GLUCAGON) 1 MG ASDIR PRN IM Citalopram Hydrobromide (CeleXA) 20 MG DAILY PO Duloxetine HCl (CYMBALTA) 30 MG DAILY PO Furosemide (LASIX) 40 MG DAILY PO Lactulose (LACTULOSE) 20 GM BID PO Tamsulosin HCl (Flomax 0.4 mg) 0.4 MG DAILY PO Aspirin (ASPIRIN) 81 MG C BK PO Insulin Human Lispro (HUMALOG) 10 UNIT AC BK GRACE SUBQ Pantoprazole (PROTONIX) 40 MG DAILY 0600 PO Atorvastatin Calcium (LIPITOR) 80 MG BEDTIME PO Ferrous Sulfate (FERROUS SULFATE) 325 MG BID PO Gabapentin (NEURONTIN) 300 MG BEDTIME PO Ursodiol (ActigalL) 300 MG BID PO Docusate Sodium (COLACE) 100 MG DAILY PO Acetaminophen (TYLENOL) 650 MG Q4H PRN PRN PO Enoxaparin Sodium (lovENOX) 40 MG DAILY 1700 SUB Q Metoprolol Tartrate (LOPRESSOR) 25 MG DAILY PO Insulin Human Lispro (HUMALOG) 0 AC HS SUBQ Insulin Human Lispro (HUMALOG) 10 UNIT AC DIN MARR BQ Hydralazine HCl (APRESOLINE) 10 MG Q6H PRN PRN I V Ondansetron HCl (ZOFRAN) 4 MG Q4H PRN PRN IV I O: 24 hour I O ending at 0700: 02/21 0700 02/20 1900 Intake Total 250.00 910.00 Output Total 600 1800 Balance -350.00 -890.00 Intake, IV 250.00 110.00 Intake, Oral 800 Output, Urine 600 1800 Patient 104.4 kg Weight Weight Bed scale Measurement Method Dietitian nutrition assessment The data set between the solid lines has been im ported from the dietitian's assessment. BMI Calculated: 29.0 Nutrition related diagnosis: Nutrition diagnosis details: Nutrition problem: Nutrition etiology: Nutrition signs and symptoms: Nutrition prescription: Dietitian name: Assessment completed: Physical Exam Wound/incision: Location: Left foot DP and PT pulses 1/4 barely palpable. Light touch and protective sensation greatly de creased left foot. Extensive wound from the medial aspect of the l eft hindfoot to the medial aspect of the left midfoot. Wide open with thick purulent drainage very mal odorous. Ulcer plantar left first metatarsal head is sup erficial. Erythema of the left foot. No crepitation External fixator is in place. Foot is underneath the leg.. LE vascular pulse assess: 1+ L posterior tibialis, 1+ L dorsalis pedis Results Findings/Data: Laboratory Tests: 02/21 02/21 02/21 02/21 02/20 1714 1229 0802 0605 2212 Chemistry BUN (7 - 18 mg/dL) 11 Creatinine (0.6 - 1.3 mg/dL) 1.1 POC Glucose (70 - 110 MG/DL) 178 H 227 H 280 H Toxicology Vancomycin Trough (10.0 - 20.0 mcg/mL) 17.9 02/20 1938 Chemistry POC Glucose (70 - 110 MG/DL) 223 H Results: labs reviewed Diagnosis, Assessment Plan Free Text A P: External fixator left lower extremity Cellulitis and draining wound medial left foot Diabetes with peripheral neuropathy Superficial ulcer left forefoot Labs reviewed VSS Status post external fixation application Wound left medial ankle. Apply vera flow wound V AC every Monday. Will arrange for wound VAC changes every Monday. Daughter is home health nurse. Spoke with basilio whitehead in depth. Iv infectious disease. Pain management nwb josh zeng on monday then he can dc with regualr v ac home Electronically Signed by Faby Wharton DPM on 08/05 at 0014 RPT #:[id number] END OF REPORT 2022-02-21 [facility] 17:14:00-00:00 [facility] Prog.Note-Vancomycin REPORT#:[id number] REPORT STATUS: Signed DATE:02/21/22 TIME: 1713 PATIENT: PEDRO MCGREGOR UNIT #: [id number] ROOM/BED: [place] [id number] : 54 AGE: 66 SEX: M ATTEND: Jean-Paul Ward od, MD ADM AUTHOR: Leticia Talbot [facility] * ALL edits or amendments must be made on the el [employer]/computer document * Vancomycin Vancomycin Medication Therapy Goal: AUC 400-600 mcg*hr/mL Indication for treatment: Osteomyelitis Weight: Actual weight (kg): 104.4 VS and I/O: Vital Signs Date Temp Pulse Resp B/P B/P Mean Pulse Ox FiO2 02/18-02/21 36.3-37.2 64-126 9-19 97-141/55-78 0.0-96.0 83-98 72 hours ending at 0700 02/21 0700 02/20 1900 02/20 0700 02/19 1900 02/18 07 1900 Intake 250.00 910.00 730.00 450 Total Output 600 5738 951 2967 1750 600 Total Balance -350.00 -890.00 -550 -1625 -1020.00 -150 Intake, IV 250.00 110.00 250.00 Intake, 800 480 450 Oral Output, 600 0768 442 3762 1750 600 Urine Patient 104.4 kg Weight Weight Bed scale Measuremen t Method 72 Hour I O Total 02/21 0702/2000 02/19 07 Intake Total 1160.00 1180.00 Output Total 2400 2175 2350 Balance -1240.00 -2175 -1170.00 Labs: Laboratory Tests: 02/20 2211 Toxicology Vancomycin Trough (10.0 - 20.0 mcg/mL) 17.9 Laboratory Test : 02/22 604 Chemistry BUN (7 - 18 mg/dL) 11 Creatinine (0.6 - 1.3 mg/dL) 1.1 Treatment plan: consult, change regimen Regimen: HPI: This is a 66 year-old male with a PMH of HT N, T2DM, PVD, OM/septic arthritis of left foot/ankle. Pharmacy has been consulted manage vancomycin. Consulting provider: Ronak Hein MD Indication: OM AUC goal: 400-600 mcg*hr/ml Day of therapy: 7 of 42 Concurrent antibiotics: * Ceftriaxone 02/22 Assessment and Plan: * 02/17 WBC 13.1 * Tmax 36.9, afebrile over 24 hours Microbiology: * 02/17 left ankle aspirate cx - E coli (R-cefaz jamin), klebsiella oxytoca (I- cefazolin), E. faecalis (S-amp) * 02/17 left ankle wound cx - GNR (aerob ic), gamma streptococcus (broth only), * 02/17 left food wound - gram positive cocci, G NR x2, gamma streptococcus Imaging: * None recent Renal: * BUN/Scr 12/14.1 (ordered renal labs) * CrCl 85 ml/min (adj BW) * UOP 2400 ml over 24 hours Dosing/monitoring: * Maintenance dose to 750 mg ( 7 mg/kg) IV q12h. Trough level on 02/20 at 2200 was 17.9 mcg/ml, therapeutic, goal 12-18 mcg/ml Plan: * Level therapeutic but patient is at ri sk of accumulation considering patient half-life is 15 hr and frequency was 12hr * Plan to dose 1500 mg ( 14 mg/kg) IV q24 (same total daily dose) * Plan to start AUC monitoring with peak and tro ugh level at 1722 RPT #:[id number] END OF REPORT 2022-02-21 [facility] 16:45:00-00:00 [facility] ([facility]) Infectious Dis. Progress Note REPORT#:[id number] REPORT STATUS: Signed DATE:02/21/22 TIME: 1645 PATIENT: PEDRO MCGREGOR UNIT #: [id number] ROOM/BED: [place] [address] : 54 AGE: 66 SEX: M ATTEND: Jean-Paul Ward od, MD ADM AUTHOR: Mele So NP * ALL edits or amendments must be made on the [email or web address] document * Subjective Chief complaint: Follow-up on left foot osteomyelitis HPI: Patient denies acute or new complaints today. No major overnight events. Patient reports: Yes: bowel movement, feeling better. No: complaints, abdominal pain, back pain, burning with urination, cough, diarrhea, fever, headache, nausea, pain, pain controlled, shortness of breath, vomiting, wheez ing. Nursing reports: No: complaints. Objective General VS/I O: Vital Signs Date Temp Pulse Resp B/P B/P Mean Pulse Ox FiO2 02/20-02/21 97.5-99.0 64-95 10-18 101-127/58-67 0.0-85.6 95-98 Last Documented: Result Date Time Pulse Ox 98 02/21 1231 B/P 124/66 02/21 1231 B/P Mean 85.6 02/21 1231 O2 Delivery Room air 02/21 1231 Temp 98.1 02/21 1231 Pulse 64 02/21 1231 Resp 17 02/21 1231 O2 Flow Rate 6 01/05 1643 Vital Signs: Date Time Temp Pulse Resp B/P B/P Pulse O2 O2 F low FiO2 Mean Ox Delivery Rate 02/21 1231 98.1 64 17 124/66 85.6 98 Room air 02/21 0803 97.5 87 16 110/67 81.7 97 Room air 02/21 0441 97.9 81 16 101/62 75.0 95 02/20 2343 99.0 95 18 110/59 0.0 95 02/20 1938 98.4 83 18 127/58 0.0 98 02/20 1900 77 10 95 02/20 1800 77 17 98 02/20 1700 72 12 95 24 hour I O ending at 0700: 02/21 0700 02/20 1900 Intake Total 250.00 910.00 Output Total 600 1800 Balance -350.00 -890.00 Intake, IV 250.00 110.00 Intake, Oral 800 Output, Urine 600 1800 Patient 230 lb Weight Weight Bed scale Measurement Method PATIENT WEIGHT: Weight (lb): 230 Weight (oz): 2.6 Weight (kg): 104.400 Physical Exam General appearance: alert, awake, oriented Wound/incision: Location: left foot wound + external fixator in place Head/Eyes: atraumatic, clear cornea, EOMI, tra l conjunctiva/sclera, normal eyelids/periorb, normocephalic, PERRL ENT: moist mucosal membranes Neck: full range of motion Cardiovascular: regular rate rhythm, no murmur Respiratory: clear to auscultation, no distress Abdomen: non-tender, soft, no distention Extremities: no cyanosis, no edema, left lower extremity in an external fixator Neuro/METAL WELDER: alert, oriented X 3 Skin: dry, no rash Results Findings/Data: Laboratory Tests 02/21 02/21 02/21 02/20 1229 0802 0605 1938 Chemistry BUN (7 - 18 mg/dL) 11 Creatinine (0.6 - 1.3 mg/dL) 1.1 POC Glucose (70 - 110 MG/DL) 227 H 280 H 223 H Laboratory Tests 02/20 2211 Toxicology Vancomycin Trough (10.0 - 20.0 mcg/mL) 17.9 Results: labs reviewed, vital signs reviewed, vi maida signs stable, current med profile rev'd Diagnosis, Assessment Plan Free Text A P: Assessment: *Osteomyelitis and septic arthritis of the left foot and ankle *HTN *Type 2 diabetes with neuropathy and nephropathy *Peripheral vascular disease -Afebrile. -Leukocytosis of 13.1 on yesterday's CBC noted; today's CBC not available. -ESR 97; CRP 103. -Wound culture with 2 different colonies of E. c karina, MRSA and Enterococcus faecalis from broth only. -Went back to the OR 02/17/22 and is now s/p I D. Overall findings of necrotic tendon, necrotic bone noted. -Surgical specimen with Lauryn Bautista EFaec alis Plan: -S/p treatment with piperaci llin-tazobactam till 02/11/2022 for prior isolates ( E. coli and E faecalis) from December. -Based on recent cultures from this admission, a ntibiotic therapy switched to ceftriaxone and vancomycin on 02/14/2022. -Would continue same for now. -Based on overall finding of necrotic tendon, ne crotic bone, would plan on another prolonged course of antibiotics of 4 to 6 weeks. -Follow surgical cultures from yesterday's speci men and tailor antibiotics as appropriate. -Antibiotics are being arranged through ID clini c. Discussed with patient at length at bedside. CURRENT ANTIMICROBIALS: Ceftriaxone + vancomycin, started 02/14/2022 Day 7 CM orders placed to assist with Home IV abx arra raimundo/ Pt seen and examined with Dr Charles Plan discussed with: patient, CM Electronically Signed by Mele So NP on at 1650 Electronically Signed by Orlin Charles MD on at 0813 RPT #:[id number] END OF REPORT 2022-02-21 [facility] 14:26:00-00:00 [facility] ([facility]) Pain Management Progress Note REPORT#:[id number] REPORT STATUS: Signed DATE:02/21/22 TIME: 1426 PATIENT: PEDRO MCGREGOR UNIT #: [id number] ROOM/BED: 3353-1 : 54 AGE: 66 SEX: M ATTEND: Jean-Paul Ward od, MD ADM AUTHOR: Emy Mayes LINK CUTTER * ALL edits or amendments must be made on the Material Mix/computer document * Subjective Chief complaint: Foot Wound. Interval History 02/21/2021 Patient chart, note and event reviewed Patient is laying in bed, fully alert, awake hem odynamically stable S/P debridment Left ankle Pain is controlled Mood is ok Sleep is ok. Denied insomnia No constipation Review of Systems Additional notes: Review was conducted and was negative except for what's noted in the HPI and Medical History. The following systems were revi ewed: Constitutional, cardiovascular, respiratory, gastrointes tinal, genitourinary, musculoskeletal, neurologic, psychiatric, endocrinological, and h ematological. Objective General VS/I O: Vital Signs Date Temp Pulse Resp B/P B/P Mean Pulse Ox FiO2 02/20-02/21 97.5-99.0 64-95 10-18 101-127/58-67 0.0-85.6 87-98 Last Documented: Result Date Time Pulse Ox 98 02/21 1231 B/P 124/66 02/21 1231 B/P Mean 85.6 02/21 1231 O2 Delivery Room air 02/21 1231 Temp 98.1 02/21 1231 Pulse 64 02/21 1231 Resp 17 02/21 1231 O2 Flow Rate 6 05 1643 24 hour I O ending at 0700: 02/21 0700 02/20 1900 Intake Total 250.00 910.00 Output Total 600 1800 Balance -350.00 -890.00 Intake, IV 250.00 110.00 Intake, Oral 800 Output, Urine 600 1800 Patient 104.4 kg Weight Weight Bed scale Measurement Method PATIENT WEIGHT: Weight (lb): 230 Weight (oz): 2.6 Weight (kg): 104.400 Medications: Active Meds + DC'd Last 24 Hrs Vancomycin HCl (VANCOMYCIN HCL) 1,750 MG Q24H IV (DC) Sodium Chloride (SODIUM CHLORIDE 0.9%) 500 ML Oxycodone/Acetaminophen (PERCOCET 5/325MG TAB) 2 TAB Q4H PRN PRN PO Vancomycin HCl (VANCOMYCIN HCL) 750 MG Q12H IV ( DC) Sodium Chloride (SODIUM CHLORIDE 0.9%) 250 ML Sodium Hypochlorite (DAKIN'S 1/4 STR (0.125%) 47 3ML) 1 APPLIC MOWEFR TOPICAL Ceftriaxone Sodium (ROCEPHIN) 2,000 MG Q24H IV Sodium Chloride (SODIUM CHLORIDE) 20 ML Miscellaneous Information (VANCOMYCIN PHARMACY T O DOSE) 1 EACH ASDIR IV (CKD) Sterile Water (WATER FOR IRRIGATION) DRESSING CH SHERICE ASDIR PRN IRR Glucagon (GLUCAGON) 1 MG ASDIR PRN IM Citalopram Hydrobromide (CeleXA) 20 MG DAILY PO Duloxetine HCl (CYMBALTA) 30 MG DAILY PO Furosemide (LASIX) 40 MG DAILY PO Lactulose (LACTULOSE) 20 GM BID PO Tamsulosin HCl (Flomax 0.4 mg) 0.4 MG DAILY PO Aspirin (ASPIRIN) 81 MG C BK PO Insulin Human Lispro (HUMALOG) 10 UNIT AC BK GRACE SUBQ Pantoprazole (PROTONIX) 40 MG DAILY 0600 PO Atorvastatin Calcium (LIPITOR) 80 MG BEDTIME PO Ferrous Sulfate (FERROUS SULFATE) 325 MG BID PO Gabapentin (NEURONTIN) 300 MG BEDTIME PO Ursodiol (ActigalL) 300 MG BID PO Docusate Sodium (COLACE) 100 MG DAILY PO Acetaminophen (TYLENOL) 650 MG Q4H PRN PRN PO Enoxaparin Sodium (lovENOX) 40 MG DAILY 1700 SUB Q Metoprolol Tartrate (LOPRESSOR) 25 MG DAILY PO Insulin Human Lispro (HUMALOG) 0 AC HS SUBQ Insulin Human Lispro (HUMALOG) 10 UNIT AC DIN MARR BQ Hydralazine HCl (APRESOLINE) 10 MG Q6H PRN PRN I V Ondansetron HCl (ZOFRAN) 4 MG Q4H PRN PRN IV Dietitian nutrition assessment The data set between the solid lines has been im ported from the dietitian's assessment. BMI Calculated: 29.0 Nutrition related diagnosis: Nutrition diagnosis details: Nutrition problem: Nutrition etiology: Nutrition signs and symptoms: Nutrition prescription: Dietitian name: Assessment completed: Physical Exam General appearance: alert, awake, oriented, no a cute distress, pleasant, conversational, mental status normal, no respira tory distress Head/eyes: atraumatic, PERRLA Neck: full range of motion, non-tender Cardiovascular: normal capillary refill, regular rate rhythm Abdomen: soft Extremities: moves all (left leg wound/ external fix) Neuro/METAL WELDER: alert Results Findings/data: Laboratory Tests: 02/21 02/21 02/21 02/20 02/20 1229 0802 0605 2212 1938 Chemistry BUN (7 - 18 mg/dL) 11 Creatinine (0.6 - 1.3 mg/dL) 1.1 POC Glucose (70 - 110 MG/DL) 227 H 280 H 223 H Toxicology Vancomycin Trough (10.0 - 20.0 mcg/mL) 17.9 02/20 1608 Chemistry POC Glucose (70 - 110 MG/DL) 206 H Diagnosis, Assessment Plan Free text A P: Assessment/Plan Daily Plan 02/18/2021 Patient assessed. Pain is controlled with curren t pain medical management. Continue IV antibiotics per ID. Plan 1. Acute complex pain syndrome 2/2 left leg oste omilitis -Dilaudid 0.5mg IV Q4H PRN for pain 7-10, secon d line -oxycodone 10/325 q4H PRN for pain 7-10 first l ine -Tylenol 650 mg PO Q6h for pain 1-3 2. Neuropathic pain -gabapentin 300mg PO Bedtime -cymbalta 30mg twice a day 3. Muscle spasm flexeril 5mg po TID 4. Bowel Regimen - colace -continue pain regimen as above -Monitor for S/E such as AMS , Lethargy/sedation, changes in respiratory function -Continue BP parameters -[facility]( Acute Pain services) will continue to foll ow -please call pain management for any pain-relate d concerns or questions Goal: Daily pain control to improve function and /or quality of life ([x]) Pain control until condition naturally res olves ([x]) Inpatient pain control ([x]) Improved sleep cycle ([x]) all narcotics medications will be adjusted according to the patient's medical condition during the hospital stay Alll diagnostic images/lab and medical records d uring the course of this admission as well as ASSISTANT CHIEF TRAIN DISPATCHER records reviewed Risk versus benefit of opiate medications: All r isk and benefit were reviewed with the patient and family members, risk not limited to respiratory depression, accidental overdose, risk of fall, altered menta l status, constipation, dependency, addiction, withdrawn, sudden . Plan discussed with: The pain plan of ca re has been discussed with the patient and the nursing staff. Patient is in agr eement with the following plan of care and wishes to proceed. Quest ions and concerns have been answered to the patient' s satisfaction. Patient has verbalized consueloan iqra. Plan discussed with: patient Electronically Signed by Emy Mayes NP on 0 02/21/22 at 1529 RPT #:[id number] END OF REPORT 2022-02-21 [facility] 10:46:00-00:00 [facility] Hospitalist Progress Note REPORT#:[id number] REPORT STATUS: Signed DATE:02/21/22 TIME: 1046 PATIENT: PEDRO MCGREGOR UNIT #: [id number] ROOM/BED: [place] [address] : 54 AGE: 66 SEX: M ATTEND: Max Ward MD ADM AUTHOR: Lexa Samson LINK CUTTER * ALL edits or amendments must be made on the Material Mix/computer document * Lexa Samson 02/21/22 1046: Subjective Chief complaint: He is stable. Left foot pain is controlled with meds. Tolerating wound care. Breathing is stable. No CP, fever, chills. BP and HR stable. Review of Systems Constitutional: Reports: fatigue, generalized weakness. Allergy/Immun: Denies: anaphylaxis, hives, itching, rhinorrhea. Respiratory: Denies: hemoptysis, parox nocturnal dyspnea, ple uritic pain, pneumonia, productive cough (sputum). Cardiovascular: Denies: GIBBS (dyspnea on exertion), orthopnea, pa lpitations. GI: Denies: anorexia, dysphagia, hematemesis, hiatal hernia, nausea. : Denies: flank pain, hematuria, nocturia, penile lesion. Heme: Denies: bleeding, bruising. Neuro: Denies: change in LOC, gait problem, numbness, s lurred speech. Objective General VS/I O: Vital Signs: Date Time Temp Pulse Resp B/P B/P Pulse O2 O2 F low FiO2 Mean Ox Delivery Rate 02/21 802 36.4 87 16 110/67 81.7 97 Room air 02/21 0441 36.6 81 16 101/62 75.0 95 02/20 2343 37.2 95 18 110/59 0.0 95 02/20 1938 36.9 83 18 127/58 0.0 98 02/20 1900 77 10 95 02/20 1800 77 17 98 02/20 1700 72 12 95 02/20 1600 72 12 96 02/20 1500 77 11 87 02/20 1400 77 15 93 02/20 1300 70 12 96 02/20 1200 66 11 96 02/20 1135 74 12 118/59 83 83 02/20 1135 36.6 126 14 118/59 0.0 94 Room air 02/20 1100 76 15 86 24 hour I O ending at 0700: 02/21 0700 02/20 1900 Intake Total 250.00 910.00 Output Total 600 1800 Balance -350.00 -890.00 Intake, IV 250.00 110.00 Intake, Oral 800 Output, Urine 600 1800 Patient 104.4 kg Weight Weight Bed scale Measurement Method PATIENT WEIGHT: Weight (lb): 230 Weight (oz): 2.6 Weight (kg): 104.400 Medications: Active Meds + DC'd Last 24 Hrs Vancomycin HCl (VANCOMYCIN HCL) 1,750 MG Q24H IV (DC) Sodium Chloride (SODIUM CHLORIDE 0.9%) 500 ML Oxycodone/Acetaminophen (PERCOCET 5/325MG TAB) 2 TAB Q4H PRN PRN PO Vancomycin HCl (VANCOMYCIN HCL) 750 MG Q12H IV ( DC) Sodium Chloride (SODIUM CHLORIDE 0.9%) 250 ML Sodium Hypochlorite (DAKIN'S 1/4 STR (0.125%) 47 3ML) 1 APPLIC MOWEFR TOPICAL Hydromorphone HCl (DILAUDID) 0.5 MG Q4H PRN PRN IV (DC) Oxycodone/Acetaminophen (PERCOCET 5/325MG TAB) 2 TAB Q4H PRN PRN PO (DC) Ceftriaxone Sodium (ROCEPHIN) 2,000 MG Q24H IV Sodium Chloride (SODIUM CHLORIDE) 20 ML Miscellaneous Information (VANCOMYCIN PHARMACY T O DOSE) 1 EACH ASDIR IV (CKD) Sterile Water (WATER FOR IRRIGATION) DRESSING CH SHERICE ASDIR PRN IRR Glucagon (GLUCAGON) 1 MG ASDIR PRN IM Citalopram Hydrobromide (CeleXA) 20 MG DAILY PO Duloxetine HCl (CYMBALTA) 30 MG DAILY PO Furosemide (LASIX) 40 MG DAILY PO Lactulose (LACTULOSE) 20 GM BID PO Tamsulosin HCl (Flomax 0.4 mg) 0.4 MG DAILY PO Aspirin (ASPIRIN) 81 MG C BK PO Insulin Human Lispro (HUMALOG) 10 UNIT AC BK GRACE SUBQ Pantoprazole (PROTONIX) 40 MG DAILY 0600 PO Atorvastatin Calcium (LIPITOR) 80 MG BEDTIME PO Ferrous Sulfate (FERROUS SULFATE) 325 MG BID PO Gabapentin (NEURONTIN) 300 MG BEDTIME PO Ursodiol (ActigalL) 300 MG BID PO Docusate Sodium (COLACE) 100 MG DAILY PO Acetaminophen (TYLENOL) 650 MG Q4H PRN PRN PO Enoxaparin Sodium (lovENOX) 40 MG DAILY 1700 SUB Q Metoprolol Tartrate (LOPRESSOR) 25 MG DAILY PO Insulin Human Lispro (HUMALOG) 0 AC HS SUBQ Insulin Human Lispro (HUMALOG) 10 UNIT AC DIN MARR BQ Hydralazine HCl (APRESOLINE) 10 MG Q6H PRN PRN I V Ondansetron HCl (ZOFRAN) 4 MG Q4H PRN PRN IV Dietitian nutrition assessment The data set between the solid lines has been im ported from the dietitian's assessment. BMI Calculated: 29.0 Nutrition related diagnosis: Nutrition diagnosis details: Nutrition problem: Nutrition etiology: Nutrition signs and symptoms: Nutrition prescription: Dietitian name: Assessment completed: Physical Exam General appearance: alert, awake, oriented Head/Eyes: atraumatic, normocephalic, PERRLA Neck: full range of motion, normal thyroid, supp le/no meningismus Cardiovascular: normal capillary refill, normal heart sounds, regular rate rhythm Respiratory: aerating well, symmetric expansion, no distress Abdomen: normal bowel sounds, soft Genitourinary: no flank pain, no urinary cathete r Extremities: no calf tenderness, no clubbing, no cyanosis Musculoskeletal: no muscle spasm Neuro/METAL WELDER: alert, oriented X 3, CNII-XII intact Psychiatry: normal affect, normal mood Results Findings/Data: Laboratory Tests 02/21 02/21 02/20 02/20 02/20 0802 0605 1938 1608 1133 Chemistry BUN (7 - 18 mg/dL) 11 Creatinine (0.6 - 1.3 mg/dL) 1.1 POC Glucose (70 - 110 MG/DL) 280 H 223 H 206 H 234 H Laboratory Tests 02/20 2211 Toxicology Vancomycin Trough (10.0 - 20.0 mcg/mL) 17.9 Results: labs reviewed, vital signs reviewed, vi maida signs stable, current med profile rev'd Treatment Prophylaxis Treatment Prophylaxis Oxygen: room air Diagnosis, Assessment Plan Hospital course to date: ASSESSMENT AND PLAN: - Recurrent left foot osteomyelitis. - Infected wound left foot/Abscess left foot s/p I D. - Left foot pain, status post recent procedure. - Leukocytosis. - Hypokalemia-replaced - Hypomagnesemia-replaced. - Recently treated for bacteremia Enterococcal f aecalis. - History of hypertension. - History of hyperlipidemia. - History of depression, mood disorder. - History of diabetes type 2. - History of diabetic foot ulcer, nonhealing. - History of liver disease. PLAN: CVN1. S/p I D of left foot. will go home on Monday per Podiatry. Continue to monitor blood pressure and heart rat e. ID following for OM. Pain medication. Antiemetics. Follow labs and replace as needed. SCD for DVT prophylaxis. Continue home medication. Glycemic control, Accu-Cheks, sliding scale and diabetic diet. Monitor. Orders: Procedure Date/time Status OT: POCC - OT STAFF ONLY 02/21 817 [place]-EV[place]UATION OT [id number] 02/21 817 Active Code status: full code Plan discussed with: patient, admitting physicia n, consultants, nurse Chelo Wadr 02/21/22 6129: Attestations Physician Attestation Agree w/findings plan: Patient seen and examined, I agree with the findings and plans as documented by Lexa Samson NP Electronically Signed by Lexa Samson NP on 11/05 at 1047 Electronically Signed by Chelo Ward MD on 0 02/21/22 at 1856 RPT #:[id number] END OF REPORT 2022-02-20 [facility] 17:25:00-00:00 [facility] Pharmacy Prog.Note-Vancomycin REPORT#:[id number] REPORT STATUS: Signed DATE:02/20/22 TIME: 1725 PATIENT: PEDRO MCGREGOR UNIT #: [id number] ROOM/BED: [place] [address] : 54 AGE: 66 SEX: M ATTEND: Jean-Paul Ward od, MD ADM AUTHOR: Leticia Talbot [facility] * ALL edits or amendments must be made on the Material Mix/computer document * See Addendum Vancomycin Vancomycin Medication Therapy Goal: AUC 400-600 mcg*hr/mL Indication for treatment: Osteomyelitis Current therapy: 750 mg IV q12h Weight: Actual weight (kg): 105 VS and I/O: Vital Signs Date Temp Pulse Resp B/P B/P Mean Pulse Ox FiO2 02/17-02/20 36.3-36.9 71-126 12-23 91-134/55-78 0.0-96.0 94-98 72 hours ending at 0700 02/20 0700 02/19 1900 02/19 0700 02/18 1900 02/17 0700 1900 Intake 730.00 450 1050.00 200 Total Output 550 1625 6292 101 4965 1050 Total Balance -550 -1625 -1020.00 -150 -875.00 -850 Intake, IV 250.00 250.00 Intake, 480 450 800 200 Oral Number 1 Bowel Movements Output, 550 1625 0190 959 4987 1050 Urine 72 Hour I O Total 02/20 0700 02/19 0700 02/18 0700 Intake Total 1180.00 1250.00 Output Total 2175 2350 2975 Balance -2175 -1170.00 -1725.00 Labs: Laboratory Tests: 02/20 02/20 02/20 02/19 02/19 1608 1133 0731 1938 1544 Chemistry POC Glucose (70 - 110 MG/DL) 206 H 234 H 196 H 106 159 H 02/19 02/19 02/18 02/18 1102 0659 2008 1923 Chemistry POC Glucose (70 - 110 MG/DL) 224 H 266 H 143 H Toxicology Vancomycin Trough (10.0 - 20.0 mcg/mL) 21.6 *H Treatment plan: consult, cont current regimen/do se Regimen: HPI: This is a 66-year-old male with a P MH significant for HTN, T2DM, PVD, OM/ septic arthritis of left foot/ankle. Pharmacy guo s been consulted to manage vancomycin. Consulting provider: Ronak Hein MD Indication: OM AUC goal: 400-600 mcg*hr/ml Day of therapy: 6 Concurrent antibiotics: * Ceftriaxone 2 gm IV q24h 02/20 Assessment and Plan: Labs and Vitals: * 02/17 WBC 13.1 * Tmax 36.8, afebrile over 24 hours Microbiology: * 02/17 left ankle aspirate cx - E coli (R-cefaz jamin), klebsiella oxytoca (I- cefazolin), E. faecalis (S-amp) * 02/17 left ankle wound cx - GNR (aerobic), anne-marie ma streptococcus (broth only) * 02/17 left food wound - gr am positive cocci, GNR x2, gamma streptococcus (also hx of MRSA) Imaging: * none recent Renal: * 02/17 BUN/Scr 10/1.0 * CrCl 94 ml/min (adj BW) * UOP 2175 ml over 24 hours Dosing/monitoring: * Previously on maintenance dose 1 gm ( 9.5 mg/k g) IV q12h * Calculated AUC on 02/18 wa s 621 mcg*hr/ml, supratherapeutic, goal 400-600 mcg* hr/ml. * Decreased dose to 750 mg ( 7 mg/kg) IV q12h Plan: * Plan to continue 750 mg IV q12h * Considering no renal labs obtained and patient accumulated, will opt to obtain steady state trough level on 02/20 at 2200 at 1729 Addendum 1: 02/21/22 0901 by Luigi Cornelius [facility] Afebrile, SCr 1.1 (stable). UOP 2400 ml. Day 7. Trough 02/20@2212 was 17.9 mcg/ ml, therapeutic boderline. Patient seems to be u nable to clear drug with 12 hour frequency, possible jitendra f-life >12 hrs at this time. Adjust regimen to 1750 mg vancomycin iv q24h. Trough prior to 3rd dose. Electronically Signed by Luigi Cornelius [facility] on 02/21 at 0905 RPT #:[id number] END OF REPORT 2022-02-20 [facility] 16:30:00-00:00 [facility] ([facility]) Podiatry Progress Note REPORT#:[id number] REPORT STATUS: Signed DATE:02/20/22 TIME: 1630 PATIENT: PERDO MCGREGOR UNIT #: [id number] ROOM/BED: [place] [address] : 54 AGE: 66 SEX: M ATTEND: Jean-Paul Ward od, MD ADM AUTHOR: Alex Johnson DPM * ALL edits or amendments must be made on the Material Mix/computer document * Subjective Chief complaint: foot infection HPI: Patient seen at bedside this morning. No acute overnight events. No complaints Review of Systems Constitutional: Denies: chills, fatigue, fever, generalized weak ness. Respiratory: Denies: GIBBS (dyspnea on exer tion), hemoptysis, non productive cough, productive cough (sputum), SOB. Cardiovascular: Denies: chest pain, GIBBS (dyspnea on exertion), e silvina, palpitations. GI: Denies: abdominal pain, constipation, diarrhea, nausea, vomiting. Neuro: Denies: confusion, dizziness, headache, lighthea ded, numbness. Objective General VS: Last Documented: Result Date Time Pulse Ox 94 02/20 1135 B/P 118/59 02/20 1135 B/P Mean 0.0 02/20 113 O2 Delivery Room air 02/20 1135 Temp 97.9 02/20 1135 Pulse 126 02/20 1135 Resp 14 02/20 1135 O2 Flow Rate 6 02/17 1643 PATIENT WEIGHT: Weight (lb): 231 Weight (oz): 11.29 Weight (kg): 105.100 Medications: Active Meds + DC'd Last 24 Hrs Vancomycin HCl (VANCOMYCIN HCL) 750 MG Q12H IV Sodium Chloride (SODIUM CHLORIDE 0.9%) 250 ML Sodium Hypochlorite (DAKIN'S 1/4 STR (0.125%) 47 3ML) 1 APPLIC MOWEFR TOPICAL Hydromorphone HCl (DILAUDID) 0.5 MG Q4H PRN PRN IV (DC) Oxycodone/Acetaminophen (PERCOCET 5/325MG TAB) 2 TAB Q4H PRN PRN PO (DC) Ceftriaxone Sodium (ROCEPHIN) 2,000 MG Q24H IV Sodium Chloride (SODIUM CHLORIDE) 20 ML Miscellaneous Information (VANCOMYCIN PHARMACY T O DOSE) 1 EACH ASDIR IV (CKD) Sterile Water (WATER FOR IRRIGATION) DRESSING CH SHERICE ASDIR PRN IRR Glucagon (GLUCAGON) 1 MG ASDIR PRN IM Citalopram Hydrobromide (CeleXA) 20 MG DAILY PO Duloxetine HCl (CYMBALTA) 30 MG DAILY PO Furosemide (LASIX) 40 MG DAILY PO Lactulose (LACTULOSE) 20 GM BID PO Tamsulosin HCl (Flomax 0.4 mg) 0.4 MG DAILY PO Aspirin (ASPIRIN) 81 MG C BK PO Insulin Human Lispro (HUMALOG) 10 UNIT AC BK GRACE SUBQ Pantoprazole (PROTONIX) 40 MG DAILY 0600 PO Atorvastatin Calcium (LIPITOR) 80 MG BEDTIME PO Ferrous Sulfate (FERROUS SULFATE) 325 MG BID PO Gabapentin (NEURONTIN) 300 MG BEDTIME PO Ursodiol (ActigalL) 300 MG BID PO Docusate Sodium (COLACE) 100 MG DAILY PO Acetaminophen (TYLENOL) 650 MG Q4H PRN PRN PO Enoxaparin Sodium (lovENOX) 40 MG DAILY 1700 SUB Q Metoprolol Tartrate (LOPRESSOR) 25 MG DAILY PO Insulin Human Lispro (HUMALOG) 0 AC HS SUBQ Insulin Human Lispro (HUMALOG) 10 UNIT AC DIN MARR BQ Hydralazine HCl (APRESOLINE) 10 MG Q6H PRN PRN I V Ondansetron HCl (ZOFRAN) 4 MG Q4H PRN PRN IV I O: 24 hour I O ending at 0700: 02/20 0700 02/19 1900 Intake Total Output Total 550 1625 Balance -550 -1625 Output, Urine 550 1625 Dietitian nutrition assessment The data set between the solid lines has been im ported from the dietitian's assessment. BMI Calculated: 29.0 Nutrition related diagnosis: Nutrition diagnosis details: Nutrition problem: Nutrition etiology: Nutrition signs and symptoms: Nutrition prescription: Dietitian name: Assessment completed: Physical Exam General appearance: no acute distress, no respir atory distress Wound/incision: Location: Left foot DP and PT pulses 1/4 barely palpable. Light touch and protective sensation greatly dec reased left foot. Extensive wound from the medial aspect of the le ft hindfoot to the medial aspect of the left midfoot. Wide open with thick purulent drainage very bobby dorous. Ulcer plantar left first metatarsal head is supe rficial. Erythema of the left foot. No crepitation External fixator is in place. Foot is underneath the leg.. LE vascular pulse assess: 1+ L posterior tibialis, 1+ L dorsalis pedis Results Findings/Data: Laboratory Tests: 02/20 02/20 02/19 1133 0731 1938 Chemistry POC Glucose (70 - 110 MG/DL) 234 H 196 H 106 Diagnosis, Assessment Plan Free Text A P: External fixator left lower extremity Cellulitis and draining wound medial left foot Diabetes with peripheral neuropathy Superficial ulcer left forefoot Labs reviewed VSS Status post external fixation application Wound left medial ankle. Apply vera flow wound V AC every Monday. Will arrange for wound VAC changes every Monday. Daughter is home health nurse. Spoke with darebeca in depth. Iv infectious disease. Pain management Nonweightbearing Covering for Dr. Wharton at 1516 RPT #:[id number] END OF REPORT 2022-02-20 [facility] 10:27:00-00:00 [facility] Hospitalist Progress Note REPORT#:[id number] REPORT STATUS: Signed DATE:02/20/22 TIME: 1027 PATIENT: PEDRO MCGREGOR UNIT #: [id number] ROOM/BED: [place] [id number] : 54 AGE: 66 SEX: M ATTEND: Jean-Paul Ward od, MD ADM AUTHOR: Lexa Samson LINK CUTTER * ALL edits or amendments must be made on the Material Mix/computer document * Lexa Samson 02/20/22 1027: Subjective Chief complaint: He is feeling better. Left foot pain is controlled with meds. Tolerating wound care. Breathing is stable. No CP, fever, chills. BP and HR stable. Review of Systems Constitutional: Reports: fatigue, generalized weakness. Allergy/Immun: Denies: anaphylaxis, hives, itching. ENT: Denies: ear ringing, mouth pain, nasal c ongestion, sinus problem, sore throat. Respiratory: Denies: hemoptysis, non productive cough , pleurisy, pleuritic pain, pneumonia. Cardiovascular: Denies: GIBBS (dyspnea on exertion), orthopnea, pa benny nocturnal dyspnea. GI: Denies: anorexia, dysphagia, GERD, hiatal hernia , melena. : Denies: flank pain, frequency, hematuria, testic ular pain. Heme: Denies: bleeding, bruising. Neuro: Denies: confusion, dizziness, gait problem, head ache, numbness. Objective General VS/I O: Vital Signs: Date Time Temp Pulse Resp B/P B/P Pulse O2 O2 F low FiO2 Mean Ox Delivery Rate 02/20 0632 36.6 85 14 95 Room air 02/20 0354 36.8 80 12 134/71 91.8 95 02/19 2329 36.4 85 18 107/62 77.1 94 02/19 1941 36.4 78 18 97/55 69.3 96 02/19 1546 36.9 75 12 109/60 76.6 96 Nasal cannula 02/19 1114 36.7 93 16 102/61 74.7 97 Nasal cannula 24 hour I O ending at 0700: 02/20 0700 02/19 1900 Intake Total Output Total 550 1625 Balance -550 -1625 Output, Urine 550 1625 PATIENT WEIGHT: Weight (lb): 231 Weight (oz): 11.29 Weight (kg): 105.100 Medications: Active Meds + DC'd Last 24 Hrs Vancomycin HCl (VANCOMYCIN HCL) 750 MG Q12H IV Sodium Chloride (SODIUM CHLORIDE 0.9%) 250 ML Sodium Hypochlorite (DAKIN'S 1/4 STR (0.125%) 47 3ML) 1 APPLIC MOWEFR TOPICAL Hydromorphone HCl (DILAUDID) 0.5 MG Q4H PRN PRN IV Oxycodone/Acetaminophen (PERCOCET 5/325MG TAB) 2 TAB Q4H PRN PRN PO Ceftriaxone Sodium (ROCEPHIN) 2,000 MG Q24H IV Sodium Chloride (SODIUM CHLORIDE) 20 ML Miscellaneous Information (VANCOMYCIN PHARMACY T O DOSE) 1 EACH ASDIR IV (CKD) Sterile Water (WATER FOR IRRIGATION) DRESSING CH SHERICE ASDIR PRN IRR Glucagon (GLUCAGON) 1 MG ASDIR PRN IM Citalopram Hydrobromide (CeleXA) 20 MG DAILY PO Duloxetine HCl (CYMBALTA) 30 MG DAILY PO Furosemide (LASIX) 40 MG DAILY PO Lactulose (LACTULOSE) 20 GM BID PO Tamsulosin HCl (Flomax 0.4 mg) 0.4 MG DAILY PO Aspirin (ASPIRIN) 81 MG C BK PO Insulin Human Lispro (HUMALOG) 10 UNIT AC BK GRACE SUBQ Pantoprazole (PROTONIX) 40 MG DAILY 0600 PO Atorvastatin Calcium (LIPITOR) 80 MG BEDTIME PO Ferrous Sulfate (FERROUS SULFATE) 325 MG BID PO Gabapentin (NEURONTIN) 300 MG BEDTIME PO Ursodiol (ActigalL) 300 MG BID PO Docusate Sodium (COLACE) 100 MG DAILY PO Acetaminophen (TYLENOL) 650 MG Q4H PRN PRN PO Enoxaparin Sodium (lovENOX) 40 MG DAILY 1700 SUB Q Metoprolol Tartrate (LOPRESSOR) 25 MG DAILY PO Insulin Human Lispro (HUMALOG) 0 AC HS SUBQ Insulin Human Lispro (HUMALOG) 10 UNIT AC DIN MARR BQ Hydralazine HCl (APRESOLINE) 10 MG Q6H PRN PRN I V Ondansetron HCl (ZOFRAN) 4 MG Q4H PRN PRN IV Dietitian nutrition assessment The data set between the solid lines has been im ported from the dietitian's assessment. BMI Calculated: 29.0 Nutrition related diagnosis: Nutrition diagnosis details: Nutrition problem: Nutrition etiology: Nutrition signs and symptoms: Nutrition prescription: Dietitian name: Assessment completed: Physical Exam General appearance: alert, awake, oriented Head/Eyes: atraumatic, normocephalic, PERRLA Neck: full range of motion, normal thyroid, supp le/no meningismus Cardiovascular: normal capillary refill, normal heart sounds, regular rate rhythm Respiratory: aerating well, symmetric expansion, no distress Abdomen: normal bowel sounds, soft Genitourinary: no flank pain, no urinary cathete r Extremities: no calf tenderness, no clubbing, no cyanosis Musculoskeletal: no muscle spasm Neuro/METAL WELDER: alert, oriented X 3, CNII-XII intact Psychiatry: normal affect, normal mood Results Findings/Data: Laboratory Tests 02/20 02/19 02/19 02/19 0731 1938 1544 1102 Chemistry POC Glucose (70 - 110 MG/DL) 196 H 106 159 H 22 4 H Results: labs reviewed, vital signs reviewed, vi maida signs stable, current med profile rev'd Treatment Prophylaxis Treatment Prophylaxis Oxygen: room air Diagnosis, Assessment Plan Hospital course to date: ASSESSMENT AND PLAN: - Recurrent left foot osteomyelitis. - Infected wound left foot/Abscess left foot s/p I D. - Left foot pain, status post recent procedure. - Leukocytosis. - Hypokalemia-replaced - Hypomagnesemia-replaced. - Recently treated for bacteremia Enterococcal f aecalis. - History of hypertension. - History of hyperlipidemia. - History of depression, mood disorder. - History of diabetes type 2. - History of diabetic foot ulcer, nonhealing. - History of liver disease. PLAN: CVN1. S/p I D of left foot. Will contiue Monitor BG. will go home on Monday per Podiatry. Continue to monitor blood pressure and heart rat e. ID following for OM. Pain medication. Antiemetics. Follow labs and replace as needed. SCD for DVT prophylaxis. Continue home medication. Glycemic control, Accu-Cheks, sliding scale and diabetic diet. Monitor. Code status: full code Plan discussed with: patient, admitting physicia n, consultants, nurse Chelo Ward 02/21/22 7709: Attestations Physician Attestation Agree w/findings plan: Patient seen and examined, I agree with the findings and plans as documented by Lexa Samson NP Electronically Signed by Lexa Samson NP on 10/05 at 1028 Electronically Signed by Chelo Ward MD on 0 02/21/22 at 1855 RPT #:[id number] END OF REPORT 2022-02-19 [facility] 11:21:00-00:00 [facility] ([facility] Pharmacy Prog.Note-Vancomycin REPORT#:[id number] REPORT STATUS: Signed DATE:02/19/22 TIME: 112 PATIENT: PEDRO MCGREGOR UNIT #: [id number] ROOM/BED: [place] [address] : 54 AGE: 66 SEX: M ATTEND: Jean-Paul Ward od, MD ADM AUTHOR: [facility] * ALL edits or amendments must be made on the Material Mix/computer document * Vancomycin Vancomycin Medication Therapy Goal: AUC 400-600 mcg*hr/mL Indication for treatment: Osteomyelitis Current therapy: CEFTRIAXONE AND VANCOMYCIN VS and I/O: Vital Signs Date Temp Pulse Resp B/P B/P Mean Pulse Ox FiO2 02/16-02/19 97.3-98.8 64-97 11-23 91-137/55-78 0.0-96.0 93-100 72 hours ending at 0700 02/19 0700 02/18 1900 02/18 0702/17 19002/16 07 1900 Intake 730.00 450 1050.00 200 1020.00 Total Output 2455 614 3883 8395 168 9090 Total Balance -1020.00 -150 -875.00 -850 -600 -480.00 Intake, IV 250.00 250.00 20.00 Intake, 480 450 653 515 4208 Oral Number 1 Bowel Movements Output, 3401 642 2405 3669 895 6318 Urine 72 Hour I O Total 02/19 0700 02/18 0700 02/17 0700 Intake Total 1180.00 1250.00 1020.00 Output Total 2350 2975 2100 Balance -1170.00 -1725.00 -1080.00 Labs: Laboratory Tests: 02/18 02/18 1923 1155 Toxicology Vancomycin Peak (30 - 40 MCG/ML) 30.3 Vancomycin Trough (10.0 - 20.0 mcg/mL) 21.6 *H Microbiology: 02/17 1713 FOOT: Tissue Culture - RES 02/17 1713 FOOT: Anaerobic Culture - RES 02/17 1713 FOOT: Gram Stain - RES 02/17 1713 WND OTHER: Acid Fast Bacilli Smear - RECD 02/17 1713 WND OTHER: Acid Fast Bacilli Culture - RECD 02/17 1713 ANKLE: Wound Culture - RES 02/17 1713 ANKLE: Anaerobic Culture - RES 02/17 1713 ANKLE: Gram Stain - RES 02/17 1713 BF OTHER: Fungal Smear - RES 02/17 1713 BF OTHER: Fungal Culture - RES 02/17 1713 BF OTHER: Body Fluid Culture - RES GRAM NEGATIVE PRASHANT GRAM NEGATIVE PRASHANT#2 02/17 1713 BF OTHER: Anaerobic Culture - RES 02/17 1713 BF OTHER: Gram Stain - RES Treatment plan: consult Regimen: HPI: 66 yo M. PMH: HTN, T2DM, PVD, OM/septic art hritis of left foot/ankle. ID consulted and adjusted abx to ceftria xone/vancomycin. Pharmacy consulted to dose. Consulting provider: Dr. Hein Indication: OM Goal: AUC 400-600 02/19 Labs/Vitals Afeb; WBC 13.1 (slight increase) () Renal: BUN/Scr: 10/1.0 (02/17) Crcl: 86 ml/min Micro: Left foot culture: Pending A/P: Day 6 of therapy. ID on board. Plan for 4-6 weeks of IV abx. ID planning on OPAT. AUC calculated based off yesterdays levels resul ender at 621. Decreased dose to 750mg q12h which estimates AUC of 465. Will recheck levels if renal function changes or in 3-5 days. Pharmacy to continue to monitor Electronically Signed by Jean Al [facility] on 0 02/19/22 at 1122 RPT #:[id number] END OF REPORT 2022-02-19 [facility] 10:46:00-00:00 [facility] Hospitalist Progress Note REPORT#:[id number] REPORT STATUS: Signed DATE:02/19/22 TIME: 1045 PATIENT: PEDRO MCGREGOR UNIT #: [id number] ROOM/BED: [place] [address] : 54 AGE: 66 SEX: M ATTEND: Jean-Paul Ward od, MD ADM AUTHOR: Lexa Samson LINK CUTTER * ALL edits or amendments must be made on the Material Mix/computer document * Lexa Samson 02/19/22 1046: Subjective Chief complaint: His Left foot pain is controlled with meds. Tolerating wound care. Breathing is stable. LE pain is controlled with meds. No CP, fever, chills. BP and HR stable. Review of Systems Constitutional: Reports: fatigue, generalized weakness. Allergy/Immun: Denies: anaphylaxis, itching, rhinorrhea. Eyes: Denies: visual loss/blurred, itching, diplopia, eye pain. Respiratory: Denies: hemoptysis, pleuritic pain, productive c ough (sputum), SOB. Cardiovascular: Denies: GIBBS (dyspnea on exertion), orthopnea, pa lpitations. GI: Denies: anorexia, diarrhea, hiatal hernia. : Denies: flank pain, hematuria, testicular pain. Heme: Denies: bleeding, bruising. Neuro: Denies: change in LOC, focal weakness, numbness, seizure, syncope. Objective General VS/I O: Vital Signs: Date Time Temp Pulse Resp B/P B/P Pulse O2 O2 F low FiO2 Mean Ox Delivery Rate 02/19 0601 36.3 89 12 132/78 96.0 94 Room air 02/19 0441 36.5 84 19 124/70 87.7 96 02/19 0018 36.8 87 18 117/61 79.7 95 Nasal cannula 02/18 1917 36.8 79 17 97/56 69.8 98 02/18 1530 36.4 71 12 91/60 70.3 97 Room air 02/18 1253 36.4 74 16 103/60 74.3 96 Room air 24 hour I O ending at 0700: 02/19 0700 02/18 1900 Intake Total 730.00 450 Output Total 1750 600 Balance -1020.00 -150 Intake, IV 250.00 Intake, Oral 480 450 Output, Urine 1750 600 PATIENT WEIGHT: Weight (lb): 231 Weight (oz): 11.29 Weight (kg): 105.100 Medications: Active Meds + DC'd Last 24 Hrs Vancomycin HCl (VANCOMYCIN HCL) 750 MG Q12H IV Sodium Chloride (SODIUM CHLORIDE 0.9%) 250 ML Sodium Hypochlorite (DAKIN'S 1/4 STR (0.125%) 47 3ML) 1 APPLIC MOWEFR TOPICAL Vancomycin HCl (VANCOMYCIN HCL) 1,000 MG Q12HR I V (DC) Sodium Chloride (SODIUM CHLORIDE 0.9%) 250 ML Hydromorphone HCl (DILAUDID) 0.5 MG Q4H PRN PRN IV Oxycodone/Acetaminophen (PERCOCET 5/325MG TAB) 2 TAB Q4H PRN PRN PO Ceftriaxone Sodium (ROCEPHIN) 2,000 MG Q24H IV Sodium Chloride (SODIUM CHLORIDE) 20 ML Miscellaneous Information (VANCOMYCIN PHARMACY T O DOSE) 1 EACH ASDIR IV (CKD) Sterile Water (WATER FOR IRRIGATION) DRESSING CH SHERICE ASDIR PRN IRR Glucagon (GLUCAGON) 1 MG ASDIR PRN IM Citalopram Hydrobromide (CeleXA) 20 MG DAILY PO Duloxetine HCl (CYMBALTA) 30 MG DAILY PO Furosemide (LASIX) 40 MG DAILY PO Lactulose (LACTULOSE) 20 GM BID PO Tamsulosin HCl (Flomax 0.4 mg) 0.4 MG DAILY PO Aspirin (ASPIRIN) 81 MG C BK PO Insulin Human Lispro (HUMALOG) 10 UNIT AC BK GRACE SUBQ Pantoprazole (PROTONIX) 40 MG DAILY 0600 PO Atorvastatin Calcium (LIPITOR) 80 MG BEDTIME PO Ferrous Sulfate (FERROUS SULFATE) 325 MG BID PO Gabapentin (NEURONTIN) 300 MG BEDTIME PO Ursodiol (ActigalL) 300 MG BID PO Docusate Sodium (COLACE) 100 MG DAILY PO Acetaminophen (TYLENOL) 650 MG Q4H PRN PRN PO Enoxaparin Sodium (lovENOX) 40 MG DAILY 1700 SUB Q Metoprolol Tartrate (LOPRESSOR) 25 MG DAILY PO Insulin Human Lispro (HUMALOG) 0 AC HS SUBQ Insulin Human Lispro (HUMALOG) 10 UNIT AC DIN MARR BQ Hydralazine HCl (APRESOLINE) 10 MG Q6H PRN PRN I V Ondansetron HCl (ZOFRAN) 4 MG Q4H PRN PRN IV Dietitian nutrition assessment The data set between the solid lines has been im ported from the dietitian's assessment. BMI Calculated: 29.0 Nutrition related diagnosis: Nutrition diagnosis details: Nutrition problem: Nutrition etiology: Nutrition signs and symptoms: Nutrition prescription: Dietitian name: Assessment completed: Physical Exam General appearance: alert, awake Head/Eyes: atraumatic, normocephalic, PERRLA Neck: full range of motion, normal thyroid, supp le/no meningismus Cardiovascular: normal capillary refill, normal heart sounds, regular rate rhythm Respiratory: aerating well, symmetric expansion, no distress Abdomen: normal bowel sounds, soft Genitourinary: no flank pain, no urinary cathete r Extremities: no calf tenderness, no clubbing, no cyanosis Musculoskeletal: no muscle spasm Neuro/METAL WELDER: alert, oriented X 3, CNII-XII intact Psychiatry: normal affect, normal mood Results Findings/Data: Laboratory Tests 02/1959 2007 1529 1251 Chemistry POC Glucose (70 - 110 MG/DL) 266 H 143 H 191 H 254 H Laboratory Tests 02/18 02/18 1923 1155 Toxicology Vancomycin Peak (30 - 40 MCG/ML) 30.3 Vancomycin Trough (10.0 - 20.0 mcg/mL) 21.6 *H Results: labs reviewed, vital signs reviewed, vi maida signs stable, current med profile rev'd Treatment Prophylaxis Treatment Prophylaxis Oxygen: room air Diagnosis, Assessment Plan Hospital course to date: ASSESSMENT AND PLAN: - Recurrent left foot osteomyelitis. - Infected wound left foot/Abscess left foot s/p I D. - Left foot pain, status post recent procedure. - Leukocytosis. - Hypokalemia-replaced - Hypomagnesemia-replaced. - Recently treated for bacteremia Enterococcal f aecalis. - History of hypertension. - History of hyperlipidemia. - History of depression, mood disorder. - History of diabetes type 2. - History of diabetic foot ulcer, nonhealing. - History of liver disease. PLAN: CVN1. S/p I D of left foot. Will contiue Monitor BG. Continue to monitor blood pressure and heart rat e. ID following for OM. Pain medication. Antiemetics. Follow labs and replace as needed. SCD for DVT prophylaxis. Continue home medication. Glycemic control, Accu-Cheks, sliding scale and diabetic diet. Monitor. Code status: full code Plan discussed with: patient, admitting physicia n, consultants, nurse Chelo Ward 02/19/222020: Attestations Physician Attestation Agree w/findings plan: Patient seen and examined, I agree with the findings and plans as documented by Lexa Samson NP Electronically Signed by Lexa Samson NP on 09/04 at 1048 Electronically Signed by Chelo Ward MD on 0 02/19/22 at 2031 RPT #:[id number] END OF REPORT 2022-02-18 [facility] 18:11:00-00:00 [facility] Podiatry Progress Note REPORT#:[id number] REPORT STATUS: Signed DATE:02/18/22 TIME: 1810 PATIENT: PEDRO MCGREGOR UNIT #: [id number] ROOM/BED: [place] [id number] : 54 AGE: 66 SEX: M ATTEND: Jean-Paul Ward od, MD ADM AUTHOR: Faby Wharton DPM * ALL edits or amendments must be made on the Material Mix/computer document * Subjective Chief complaint: foot infection Objective General VS: Last Documented: Result Date Time Pulse Ox 97 02/18 1530 B/P 91/60 02/18 1530 B/P Mean 70.3 02/18 1530 O2 Delivery Room air 02/18 1530 Temp 36.4 02/18 1530 Pulse 71 02/18 1530 Resp 12 02/18 1530 O2 Flow Rate 6 02/17 1643 PATIENT WEIGHT: Weight (lb): 231 Weight (oz): 11.29 Weight (kg): 105.100 Medications: Active Meds + DC'd Last 24 Hrs Sodium Hypochlorite (DAKIN'S 02/16 STR (0.125%) 47 3ML) 1 APPLIC MOWEFR TOPICAL Diphenhydramine HCl (BENADRYL) 12.5 MG PACU ONCE PRN IV (DC) Fentanyl Citrate (SUBLIMAZE) 100 MCG PACU Q10MIN PRN PRN IV (DC) Fentanyl Citrate (SUBLIMAZE) 50 MCG PACU Q10MIN PRN PRN IV (DC) Hydralazine HCl (APRESOLINE) 5 MG PACU Q10MIN TN N PRN IV (DC) Hydrocodone Bitart/Acetaminophen (NORCO 5/325) 1 TAB PACU ONCE PO (DC) Hydromorphone HCl (DILAUDID) 1 MG PACU Q10MIN TN N PRN IV (DC) Hydromorphone HCl (DILAUDID) 0.5 MG PACU Q5MIN P RN PRN IV (DC) Insulin Human Lispro (HUMALOG) 0 PACU ONCE PRN S UBQ (DC) Labetalol HCl (LABETALOL HCL) 5 MG PACU Q10MIN P RN PRN IV (DC) Lactated Ringer's (LACTATED RINGERS) 1,000 ML .Q 24H IV (DC) Meperidine HCl (MEPERIDINE HCL/PF) 12.5 MG PACU ONCE PRN IV (DC) Morphine Sulfate (morphine SULFATE) 2 MG PACU Q1 0MIN PRN PRN IV (DC) Ondansetron HCl (ZOFRAN) 4 MG PACU ONCE PRN IV ( DC) Promethazine HCl (PHENERGAN) 25 MG PACU ONCE PRN PO (DC) Ropivacaine (NAROPIN 0.5% 150 MG/30mL) 150 MG DIR PRN LOCAL (DC) Tramadol HCl (ULTRAM) 50 MG PACU ONCE PO (DC) Vancomycin HCl (VANCOMYCIN HCL) 1,000 MG Q12HR I V Sodium Chloride (SODIUM CHLORIDE 0.9%) 250 ML Hydromorphone HCl (DILAUDID) 0.5 MG Q4H PRN PRN IV Oxycodone/Acetaminophen (PERCOCET 5/325MG TAB) 2 TAB Q4H PRN PRN PO Ceftriaxone Sodium (ROCEPHIN) 2,000 MG Q24H IV Sodium Chloride (SODIUM CHLORIDE) 20 ML Miscellaneous Information (VANCOMYCIN PHARMACY T O DOSE) 1 EACH ASDIR IV (CKD) Sterile Water (WATER FOR IRRIGATION) DRESSING CH SHERICE ASDIR PRN IRR Glucagon (GLUCAGON) 1 MG ASDIR PRN IM Citalopram Hydrobromide (CeleXA) 20 MG DAILY PO Duloxetine HCl (CYMBALTA) 30 MG DAILY PO Furosemide (LASIX) 40 MG DAILY PO Lactulose (LACTULOSE) 20 GM BID PO Tamsulosin HCl (Flomax 0.4 mg) 0.4 MG DAILY PO Aspirin (ASPIRIN) 81 MG C BK PO Insulin Human Lispro (HUMALOG) 10 UNIT AC BK GRACE SUBQ Pantoprazole (PROTONIX) 40 MG DAILY 0600 PO Atorvastatin Calcium (LIPITOR) 80 MG BEDTIME PO Ferrous Sulfate (FERROUS SULFATE) 325 MG BID PO Gabapentin (NEURONTIN) 300 MG BEDTIME PO Ursodiol (ActigalL) 300 MG BID PO Docusate Sodium (COLACE) 100 MG DAILY PO Acetaminophen (TYLENOL) 650 MG Q4H PRN PRN PO Enoxaparin Sodium (lovENOX) 40 MG DAILY 1700 SUB Q Metoprolol Tartrate (LOPRESSOR) 25 MG DAILY PO Insulin Human Lispro (HUMALOG) 0 AC HS SUBQ Insulin Human Lispro (HUMALOG) 10 UNIT AC DIN MARR BQ Hydralazine HCl (APRESOLINE) 10 MG Q6H PRN PRN I V Ondansetron HCl (ZOFRAN) 4 MG Q4H PRN PRN IV I O: 24 hour I O ending at 0700: 01/06 0700 01/05 1900 Intake Total 1050.00 200 Output Total 1925 1050 Balance -875.00 -850 Intake, IV 250.00 Intake, Oral 800 200 Number 1 Bowel Movements Output, Urine 1925 1050 Dietitian nutrition assessment The data set between the solid lines has been im ported from the dietitian's assessment. BMI Calculated: 29.0 Nutrition related diagnosis: Nutrition diagnosis details: Nutrition problem: Nutrition etiology: Nutrition signs and symptoms: Nutrition prescription: Dietitian name: Assessment completed: Physical Exam Wound/incision: Location: Left foot DP and PT pulses 1/4 barely palpable. Light touch and protective sensation greatly de creased left foot. Extensive wound from the medial aspect of the l eft hindfoot to the medial aspect of the left midfoot. Wide open with thick purulent drainage very mal odorous. Ulcer plantar left first metatarsal head is sup erficial. Erythema of the left foot. No crepitation External fixator is in place. Foot is underneath the leg.. LE vascular pulse assess: 1+ L posterior tibialis, 1+ L dorsalis pedis Results Findings/Data: Laboratory Tests: 02/18 02/18 02/18 02/18 02/17 1529 1251 1155 0743 1931 Chemistry POC Glucose (70 - 110 MG/DL) 191 H 254 H 310 H 340 H Toxicology Vancomycin Peak (30 - 40 MCG/ML) 30.3 Results: labs reviewed Diagnosis, Assessment Plan Free Text A P: External fixator left lower extremity Cellulitis and draining wound medial left foot Diabetes with peripheral neuropathy Superficial ulcer left forefoot Status post external fixation application Wound left medial ankle. Apply vera flow wound V AC every Monday. Will reevaluate on Monday. We will order home wound VAC. Will arrange for wound VAC changes every Monday. Daughter is home health nurse. Spoke with basilio whitehead in depth. Iv infectious disease. Pain management Nonweightbearing Electronically Signed by Faby Wharton DPM on 08/05 at 0013 RPT #:[id number] END OF REPORT 2022-02-18 [facility] 13:07:00-00:00 [facility] ([facility]) Pain Management Progress Note REPORT#:[id number] REPORT STATUS: Signed DATE:02/18/22 TIME: 1307 PATIENT: PEDRO MCGREGOR UNIT #: [id number] ROOM/BED: [place] [id number] : 54 AGE: 66 SEX: M ATTEND: Jean-Paul Ward od, MD ADM AUTHOR: Emy Mayes NP * ALL edits or amendments must be made on the Material Mix/computer document * Subjective Chief complaint: Foot Wound. Interval History 02/18/2021 Patient chart, note and event reviewed Patient is laying in bed, fully alert, awake hem odynamically stable S/P debridment Left ankle Pain is manageable Mood is ok Sleep is ok. Denied insomnia No constipation Review of Systems Additional notes: Review was conducted and was negative except for what's noted in the HPI and Medical History. The following systems were revi ewed: Constitutional, cardiovascular, respiratory, gastrointes tinal, genitourinary, musculoskeletal, neurologic, psychiatric, endocrinological, and h ematological. Objective General VS/I O: Vital Signs Date Temp Pulse Resp B/P B/P Mean Pulse Ox FiO2 02/17-02/18 97.4-98.8 64-97 11-23 101-137/55-67 0.0-80.9 93-100 Last Documented: Result Date Time Pulse Ox 96 02/18 1253 B/P 103/60 02/18 1253 B/P Mean 74.3 02/18 1253 O2 Delivery Room air 02/18 1253 Temp 97.5 02/18 1253 Pulse 74 02/18 1253 Resp 16 02/18 1253 O2 Flow Rate 6 02/17 1643 24 hour I O ending at 0700: 02/18 0700 02/17 1900 Intake Total 1050.00 200 Output Total 1925 1050 Balance -875.00 -850 Intake, IV 250.00 Intake, Oral 800 200 Number 1 Bowel Movements Output, Urine 1925 1050 PATIENT WEIGHT: Weight (lb): 231 Weight (oz): 11.29 Weight (kg): 105.100 Medications: Active Meds + DC'd Last 24 Hrs Sodium Hypochlorite (DAKIN'S 1/4 STR (0.125%) 47 3ML) 1 APPLIC MOWEFR TOPICAL Sodium Hypochlorite (DAKIN'S 1/4 STR (0.125%) 47 3ML) 0 .STK-MED ONE TOPICAL (DC) Lidocaine/Epinephrine (XYLOCAINE 1% W/EPI (5mcg/ mL) MPF) 0 .STK-MED ONE .ROUTE (DC) Vancomycin HCl (VANCOMYCIN HCL) 0 .STK-MED ONE . ROUTE (DC) Norepinephrine Bitartrate (LEVOPHED BITARTATE) 0 .STK-MED ONE IV (DC) Ephedrine Sulfate (ePHEDrine sulfate) 0 .STK-MED ONE .ROUTE (DC) Diphenhydramine HCl (BENADRYL) 12.5 MG PACU ONC E PRN IV (DC) Fentanyl Citrate (SUBLIMAZE) 100 MCG PACU Q10MIN PRN PRN IV (DC) Fentanyl Citrate (SUBLIMAZE) 50 MCG PACU Q10MIN PRN PRN IV (DC) Hydralazine HCl (APRESOLINE) 5 MG PACU Q10MIN TN N PRN IV (DC) Hydrocodone Bitart/Acetaminophen (NORCO 5/325) 1 TAB PACU ONCE PO (DC) Hydromorphone HCl (DILAUDID) 1 MG PACU Q10MIN TN N PRN IV (DC) Hydromorphone HCl (DILAUDID) 0.5 MG PACU Q5MIN P RN PRN IV (DC) Insulin Human Lispro (HUMALOG) 0 PACU ONCE PRN S UBQ (DC) Labetalol HCl (LABETALOL HCL) 5 MG PACU Q10MIN P RN PRN IV (DC) Lactated Ringer's (LACTATED RINGERS) 1,000 ML .Q 24H IV (DC) Meperidine HCl (MEPERIDINE HCL/PF) 12.5 MG PACU ONCE PRN IV (DC) Morphine Sulfate (morphine SULFATE) 2 MG PACU Q1 0MIN PRN PRN IV (DC) Ondansetron HCl (ZOFRAN) 4 MG PACU ONCE PRN IV ( DC) Promethazine HCl (PHENERGAN) 25 MG PACU ONCE PRN PO (DC) Ropivacaine (NAROPIN 0.5% 150 MG/30mL) 150 MG DIR PRN LOCAL (DC) Tramadol HCl (ULTRAM) 50 MG PACU ONCE PO (DC) Fentanyl Citrate (SUBLIMAZE) 0 .STK-MED ONE .ROU TE (DC) Dexamethasone Sodium Phosphate (DECADRON) 0 .STK -MED ONE .ROUTE (DC) Ondansetron HCl (ZOFRAN) 0 .STK-MED ONE .ROUTE ( DC) Propofol (DIPRIVAN 200MG/20ML INJECTION) 20 ML . STK-MED ONE IV (DC) Sodium Hypochlorite (DAKIN'S 1/4 STR (0.125%) 47 3ML) 0 .STK-MED ONE TOPICAL (DC) Bupivacaine HCl (MARCAINE 0.5%) 0 .STK-MED ONE . ROUTE (DC) Gentamicin Sulfate (GARAMYCIN) 0 .STK-MED ONE .R OUTE (DC) Vancomycin HCl (VANCOMYCIN HCL) 1,000 MG Q12HR I V Sodium Chloride (SODIUM CHLORIDE 0.9%) 250 ML Hydromorphone HCl (DILAUDID) 0.5 MG Q4H PRN PRN IV Oxycodone/Acetaminophen (PERCOCET 5/325MG TAB) 2 TAB Q4H PRN PRN PO Ceftriaxone Sodium (ROCEPHIN) 2,000 MG Q24H IV Sodium Chloride (SODIUM CHLORIDE) 20 ML Miscellaneous Information (VANCOMYCIN PHARMACY T O DOSE) 1 EACH ASDIR IV (CKD) Sterile Water (WATER FOR IRRIGATION) DRESSING CH SHERICE ASDIR PRN IRR Glucagon (GLUCAGON) 1 MG ASDIR PRN IM Citalopram Hydrobromide (CeleXA) 20 MG DAILY PO Duloxetine HCl (CYMBALTA) 30 MG DAILY PO Furosemide (LASIX) 40 MG DAILY PO Lactulose (LACTULOSE) 20 GM BID PO Tamsulosin HCl (Flomax 0.4 mg) 0.4 MG DAILY PO Aspirin (ASPIRIN) 81 MG C BK PO Insulin Human Lispro (HUMALOG) 10 UNIT AC BK GRACE SUBQ Pantoprazole (PROTONIX) 40 MG DAILY 0600 PO Atorvastatin Calcium (LIPITOR) 80 MG BEDTIME PO Ferrous Sulfate (FERROUS SULFATE) 325 MG BID PO Gabapentin (NEURONTIN) 300 MG BEDTIME PO Ursodiol (ActigalL) 300 MG BID PO Docusate Sodium (COLACE) 100 MG DAILY PO Acetaminophen (TYLENOL) 650 MG Q4H PRN PRN PO Enoxaparin Sodium (lovENOX) 40 MG DAILY 1700 SUB Q Metoprolol Tartrate (LOPRESSOR) 25 MG DAILY PO Insulin Human Lispro (HUMALOG) 0 AC HS SUBQ Insulin Human Lispro (HUMALOG) 10 UNIT AC DIN MARR BQ Hydralazine HCl (APRESOLINE) 10 MG Q6H PRN PRN I V Ondansetron HCl (ZOFRAN) 4 MG Q4H PRN PRN IV Dietitian nutrition assessment The data set between the solid lines has been im ported from the dietitian's assessment. BMI Calculated: 29.0 Nutrition related diagnosis: Nutrition diagnosis details: Nutrition problem: Nutrition etiology: Nutrition signs and symptoms: Nutrition prescription: Dietitian name: Assessment completed: Physical Exam General appearance: alert, awake, oriented, no a cute distress, pleasant, conversational, mental status normal, no respira tory distress Head/eyes: atraumatic, PERRLA Neck: full range of motion, non-tender Cardiovascular: normal capillary refill, regular rate rhythm Abdomen: soft Extremities: moves all (left leg wound/ external fix) Neuro/METAL WELDER: alert Results Findings/data: Laboratory Tests: 02/18 02/18 02/17 02/17 02/17 1155 0743 1931 1741 1647 Chemistry POC Glucose (70 - 110 MG/DL) 310 H 340 H 324 H 292 H Toxicology Vancomycin Peak (30 - 40 MCG/ML) 30.3 02/17 1456 Chemistry POC Glucose (70 - 110 MG/DL) 255 H Microbiology: Date/Time Procedure - Status Source Growth 02/17 1713 Tissue Culture - RES FOOT 02/17 171 Anaerobic Culture - RES FOOT 02/17 171 Gram Stain - RES FOOT 02/17 1713 Acid Fast Bacilli Smear - RECD WND OTHER 02/17 1713 Acid Fast Bacilli Culture - RECD WND OTHER 02/17 171 Wound Culture - RES ANKLE 02/17 1713 Anaerobic Culture - RES ANKLE 02/17 171 Gram Stain - RES ANKLE 02/17 171 Fungal Smear - RES BF OTHER 02/17 171 Fungal Culture - RES BF OTHER 02/17 171 Body Fluid Culture - RES BF OTHER GRAM NEGATIVE PRASHANT GRAM NEGATIVE PRASHANT#2 02/17 1713 Anaerobic Culture - RES BF OTHER 02/17 171 Gram Stain - RES BF OTHER Diagnosis, Assessment Plan Free text A P: Assessment/Plan Daily Plan 02/18/2021 Patient assessed. Pain is contolled with current pain medical management. Continue IV antibiotics per ID. Plan 1. Acute complex pain syndrome 2/2 left leg oste omilitis -Dilaudid 0.5mg IV Q4H PRN for pain 7-10, secon d line -oxycodone 10/325 q4H PRN for pain 7-10 first l ine -Tylenol 650 mg PO Q6h for pain 1-3 2. Neuropathic pain -gabapentin 300mg PO Bedtime -cymbalta 30mg twice a day 3. Muscle spasm flexeril 5mg po TID 4. Bowel Regimen - colace -continue pain regimen as above -Monitor for S/E such as AMS , Lethargy/sedation, changes in respiratory function -Continue BP parameters -APS( Acute Pain services) will continue to foll ow -please call pain management for any pain-relate d concerns or questions Goal: Daily pain control to improve function and /or quality of life ([x]) Pain control until condition naturally res olves ([x]) Inpatient pain control ([x]) Improved sleep cycle ([x]) all narcotics medications will be adjusted according to the patient's medical condition during the hospital stay Alll diagnostic images/lab and medical records d uring the course of this admission as well as ASSISTANT CHIEF TRAIN DISPATCHER records reviewed Risk versus benefit of opiate medications: All r isk and benefit were reviewed with the patient and family members, risk not limited to respiratory depression, accidental overdose, risk of fall, altered menta l status, constipation, dependency, addiction, withdrawn, sudden . Plan discussed with: The pain plan of ca re has been discussed with the patient and the nursing staff. Patient is in agr eement with the following plan of care and wishes to proceed. Quest ions and concerns have been answered to the patient' s satisfaction. Patient has verbalized understan iqra. Plan discussed with: patient Electronically Signed by Emy Mayes NP on 0 02/18/22 at 1443 RPT #:[id number] END OF REPORT 2022-02-18 [facility] 12:30:00-00:00 [facility] ([facility]) Hospitalist Progress Note REPORT#:[id number] REPORT STATUS: Signed DATE:02/18/22 TIME: 1230 PATIENT: PEDRO MCGREGOR UNIT #: [id number] ROOM/BED: [place] [address] : 54 AGE: 66 SEX: M ATTEND: Jean-Paul Ward od, MD ADM AUTHOR: Lexa Samson LINK CUTTER * ALL edits or amendments must be made on the Material Mix/computer document * [place]iLexa 02/18/22 1230: Subjective Chief complaint: S/P I D of left foot. He is c/o left foot pain. Tolerating wound care. Breathing is stable. LE pain is controlled with meds. No CP, fever, chills. BP and HR stable. Review of Systems Constitutional: Reports: fatigue, generalized weakness. Allergy/Immun: Denies: anaphylaxis, hives, itching, rhinorrhea. Respiratory: Denies: hemoptysis, parox nocturnal dyspnea, ple urisy, pleuritic pain, pneumonia. Cardiovascular: Denies: GIBBS (dyspnea on exertion), edema, orthop booker. GI: Denies: anorexia, diarrhea, hematemesis, hiatal hernia, melena. : Denies: flank pain, frequency, penile lesion, te sticular swelling. Heme: Denies: adenopathy, bruising, petechiae. Neuro: Denies: change in LOC, focal weakness, g ait problem, numbness, slurred speech, spinning sensation. Objective General VS/I O: Vital Signs: Date Time Temp Pulse Resp B/P B/P Pulse O2 O2 F low FiO2 Mean Ox Delivery Rate 02/18 0744 36.9 88 12 115/64 80.9 94 Room air 02/18 0431 36.8 93 16 104/55 0.0 95 Room air 02/18 0010 36.7 92 14 132/63 0.0 94 Room air 02/17 2030 36.5 97 16 119/62 80.8 95 Room air 02/17 1742 36.8 87 23 106/67 80.0 02/17 1710 36.3 87 11 115/58 94 Room air 02/17 1705 86 11 120/59 93 /05 1700 88 13 101/56 93 02/17 1655 88 14 102/60 98 Room air 02/17 1650 90 13 101/55 100 /05 1645 91 11 101/56 100 /05 1643 Simple 6 mask 02/17 1641 36.6 92 12 108/58 100 Simple 6 mask 02/17 1505 37.1 64 14 137/66 96 Room air 24 hour I O ending at 0700: 01/06 0700 01/05 1900 Intake Total 1050.00 200 Output Total 1925 1050 Balance -875.00 -850 Intake, IV 250.00 Intake, Oral 800 200 Number 1 Bowel Movements Output, Urine 192 1050 PATIENT WEIGHT: Weight (lb): 231 Weight (oz): 11.29 Weight (kg): 105.100 Medications: Active Meds + DC'd Last 24 Hrs Sodium Hypochlorite (DAKIN'S 1/4 STR (0.125%) 47 3ML) 1 APPLIC MOWEFR TOPICAL Sodium Hypochlorite (DAKIN'S 1/4 STR (0.125%) 47 3ML) 0 .STK-MED ONE TOPICAL (DC) Lidocaine/Epinephrine (XYLOCAINE 1% W/EPI (5mcg/ mL) MPF) 0 .STK-MED ONE .ROUTE (DC) Vancomycin HCl (VANCOMYCIN HCL) 0 .STK-MED ONE . ROUTE (DC) Norepinephrine Bitartrate (LEVOPHED BITARTATE) 0 .STK-MED ONE IV (DC) Ephedrine Sulfate (ePHEDrine sulfate) 0 .STK-MED ONE .ROUTE (DC) Diphenhydramine HCl (BENADRYL) 12.5 MG PACU ONCE PRN IV (DC) Fentanyl Citrate (SUBLIMAZE) 100 MCG PACU Q10MIN PRN PRN IV (DC) Fentanyl Citrate (SUBLIMAZE) 50 MCG PACU Q10MIN PRN PRN IV (DC) Hydralazine HCl (APRESOLINE) 5 MG PACU Q10MIN TN N PRN IV (DC) Hydrocodone Bitart/Acetaminophen (NORCO 5/325) 1 TAB PACU ONCE PO (DC) Hydromorphone HCl (DILAUDID) 1 MG PACU Q10MIN TN N PRN IV (DC) Hydromorphone HCl (DILAUDID) 0.5 MG PACU Q5MIN P RN PRN IV (DC) Insulin Human Lispro (HUMALOG) 0 PACU ONCE PRN S UBQ (DC) Labetalol HCl (LABETALOL HCL) 5 MG PACU Q10MIN P RN PRN IV (DC) Lactated Ringer's (LACTATED RINGERS) 1,000 ML .Q 24H IV (DC) Meperidine HCl (MEPERIDINE HCL/PF) 12.5 MG PACU ONCE PRN IV (DC) Morphine Sulfate (morphine SULFATE) 2 MG PACU Q1 0MIN PRN PRN IV (DC) Ondansetron HCl (ZOFRAN) 4 MG PACU ONCE PRN IV ( DC) Promethazine HCl (PHENERGAN) 25 MG PACU ONCE PRN PO (DC) Ropivacaine (NAROPIN 0.5% 150 MG/30mL) 150 MG DIR PRN LOCAL (DC) Tramadol HCl (ULTRAM) 50 MG PACU ONCE PO (DC) Fentanyl Citrate (SUBLIMAZE) 0 .STK-MED ONE .ROU TE (DC) Dexamethasone Sodium Phosphate (DECADRON) 0 .STK -MED ONE .ROUTE (DC) Ondansetron HCl (ZOFRAN) 0 .STK-MED ONE .ROUTE ( DC) Propofol (DIPRIVAN 200MG/20ML INJECTION) 20 ML . STK-MED ONE IV (DC) Sodium Hypochlorite (DAKIN'S 1/4 STR (0.125%) 47 3ML) 0 .STK-MED ONE TOPICAL (DC) Bupivacaine HCl (MARCAINE 0.5%) 0 .STK-MED ONE . ROUTE (DC) Gentamicin Sulfate (GARAMYCIN) 0 .STK-MED ONE .R OUTE (DC) Vancomycin HCl (VANCOMYCIN HCL) 1,000 MG Q12HR I V Sodium Chloride (SODIUM CHLORIDE 0.9%) 250 ML Hydromorphone HCl (DILAUDID) 0.5 MG Q4H PRN PRN IV Oxycodone/Acetaminophen (PERCOCET 5/325MG TAB) 2 TAB Q4H PRN PRN PO Ceftriaxone Sodium (ROCEPHIN) 2,000 MG Q24H IV Sodium Chloride (SODIUM CHLORIDE) 20 ML Miscellaneous Information (VANCOMYCIN PHARMACY T O DOSE) 1 EACH ASDIR IV (CKD) Sterile Water (WATER FOR IRRIGATION) DRESSING CH SHERICE ASDIR PRN IRR Glucagon (GLUCAGON) 1 MG ASDIR PRN IM Citalopram Hydrobromide (CeleXA) 20 MG DAILY PO Duloxetine HCl (CYMBALTA) 30 MG DAILY PO Furosemide (LASIX) 40 MG DAILY PO Lactulose (LACTULOSE) 20 GM BID PO Tamsulosin HCl (Flomax 0.4 mg) 0.4 MG DAILY PO Aspirin (ASPIRIN) 81 MG C BK PO Insulin Human Lispro (HUMALOG) 10 UNIT AC BK GRACE SUBQ Pantoprazole (PROTONIX) 40 MG DAILY 0600 PO Atorvastatin Calcium (LIPITOR) 80 MG BEDTIME PO Ferrous Sulfate (FERROUS SULFATE) 325 MG BID PO Gabapentin (NEURONTIN) 300 MG BEDTIME PO Ursodiol (ActigalL) 300 MG BID PO Docusate Sodium (COLACE) 100 MG DAILY PO Acetaminophen (TYLENOL) 650 MG Q4H PRN PRN PO Enoxaparin Sodium (lovENOX) 40 MG DAILY 1700 SUB Q Metoprolol Tartrate (LOPRESSOR) 25 MG DAILY PO Insulin Human Lispro (HUMALOG) 0 AC HS SUBQ Insulin Human Lispro (HUMALOG) 10 UNIT AC DIN MARR BQ Hydralazine HCl (APRESOLINE) 10 MG Q6H PRN PRN I V Ondansetron HCl (ZOFRAN) 4 MG Q4H PRN PRN IV Dietitian nutrition assessment The data set between the solid lines has been im ported from the dietitian's assessment. BMI Calculated: 29.0 Nutrition related diagnosis: Nutrition diagnosis details: Nutrition problem: Nutrition etiology: Nutrition signs and symptoms: Nutrition prescription: Dietitian name: Assessment completed: Physical Exam General appearance: alert, awake, oriented Head/Eyes: atraumatic, normocephalic, PERRLA Neck: full range of motion, normal thyroid, supp le/no meningismus Cardiovascular: normal capillary refill, normal heart sounds, regular rate rhythm Respiratory: aerating well, symmetric expansion, no distress Abdomen: normal bowel sounds, soft Genitourinary: no flank pain, no urinary cathete r Extremities: no calf tenderness, no clubbing, no cyanosis Musculoskeletal: no muscle spasm Neuro/METAL WELDER: alert, oriented X 3, CNII-XII intact Psychiatry: normal affect, normal mood Results Findings/Data: Laboratory Tests 02/18 02/17 02/17 02/17 02/17 0743 1931 1741 1647 1456 Chemistry POC Glucose (70 - 110 MG/DL) 310 H 340 H 324 H 292 H 255 H Laboratory Tests 02/18 1155 Toxicology Vancomycin Peak (30 - 40 MCG/ML) 30.3 Results: labs reviewed, vital signs reviewed, vi maida signs stable, current med profile rev'd Treatment Prophylaxis Treatment Prophylaxis Oxygen: room air Diagnosis, Assessment Plan Hospital course to date: ASSESSMENT AND PLAN: - Recurrent left foot osteomyelitis. - Infected wound left foot/Abscess left foot s/p I D. - Left foot pain, status post recent procedure. - Leukocytosis. - Hypokalemia-replaced - Hypomagnesemia-replaced. - Recently treated for bacteremia Enterococcal f aecalis. - History of hypertension. - History of hyperlipidemia. - History of depression, mood disorder. - History of diabetes type 2. - History of diabetic foot ulcer, nonhealing. - History of liver disease. PLAN: CVN1. S/p I D of left foot. Will go home tomorrow. Will contiue Monitor BG. Continue to monitor blood pressure and heart rat e. ID following for OM. Pain medication. Antiemetics. Follow labs and replace as needed. SCD for DVT prophylaxis. Continue home medication. Glycemic control, Accu-Cheks, sliding scale and diabetic diet. Monitor. Code status: full code Plan discussed with: patient, admitting physicia n, consultants, nurse Chelo Ward 02/18/221: Attestations Physician Attestation Agree w/findings plan: Patient seen and examined, I agree with the findings and plans as documented by Lexa Samson NP Electronically Signed by Lexa Samson NP on 08/05 at 1232 Electronically Signed by Chelo Ward MD on 0 02/18/22 at 2152 RPT #:[id number] END OF REPORT 2022-02-18 [facility] 11:54:00-00:00 [facility] Prog.Note-Vancomycin REPORT#:[id number] REPORT STATUS: Signed DATE:02/18/22 TIME: 1154 PATIENT: PEDRO MCGREGOR UNIT #: [id number] [address] : [birth year] AGE: 66 SEX: M ATTEND: Jean-Paul Ward od, MD ADM AUTHOR: Abiel Vasquez h * ALL edits or amendments must be made on the [email or web address] document * Vancomycin Vancomycin Medication Therapy Goal: AUC 400-600 mcg*hr/mL Indication for treatment: Osteomyelitis Current therapy: CEFTRIAXONE AND VANCOMYCIN Weight: Actual weight (kg): 105.1 VS and I/O: Vital Signs Date Temp Pulse Resp B/P B/P Mean Pulse Ox FiO2 02/15-02/18 36.3-37.1 57-98 11-23 94-152/55-80 0.0-104.4 91-100 72 hours ending at 0700 02/18 0700 02/17 19002/17 0702/16 19002/15 0700 1900 Intake 1050.00 200 1020.00 480 251.00 Total Output 1925 4509 659 7623 1175 2050 Total Balance -875.00 -850 -600 -480.00 -695 -1799.00 Intake, IV 250.00 20.00 251.00 Intake, 679 160 2892 480 Oral Number 1 Bowel Movements Output, 1925 2791 619 0860 1175 2050 Urine 72 Hour I O Total 02/18 0702/16 0700 Intake Total 1250.00 1020.00 731.00 Output Total 2975 2100 3225 Balance -1725.00 -1080.00 -2494.00 Labs: Microbiology: 02/17 1713 FOOT: Tissue Culture - RES 02/17 1713 FOOT: Anaerobic Culture - RES 02/17 1713 FOOT: Gram Stain - RES 02/17 1713 WND OTHER: Acid Fast Bacilli Smear - RECD 02/17 1713 WND OTHER: Acid Fast Bacilli Culture - RECD 02/17 1713 ANKLE: Anaerobic Culture - RES 02/17 1713 ANKLE: Gram Stain - RES 02/17 1713 BF OTHER: Fungal Smear - RES 01/05 1714 BF OTHER: Fungal Culture - RES 02/17 1713 BF OTHER: Body Fluid Culture - RES 02/17 1713 BF OTHER: Anaerobic Culture - RES 02/17 1713 BF OTHER: Gram Stain - RES Treatment plan: consult, cont current regimen/do se Regimen: HPI: Patient is a 66-year-ol d white male with a PMHx of obesity, HLD, PVD, HTN, DM type 2, and history of E. faecalis bacteremia in November 2021 s/p broad spectrum antibiotics. Previously admitte d to [facility] with the left foot/ankle OM and septic arthritis. The patient underwent debridement and PICC line placements at that time, and tuber operator al fixator placement on 01/06/2022. He was discharged to the [facility] to continue Z osyn until 02/11 for prior isolates (E. coli and E. faecalis) from December . At the [facility] he was complaining of pain, became hypotensive and tachycardic, and so he is no w readmitted. Patient reports minimal drainage from the external fixator pin sites. Pharmacy has bee n consulted by ID to dose vancomycin. Consulting Provider: Ronak Hein MD Indication: OM Goal AUC 400-600 mcg*hr/mL 02/18 A/P: Vitals/Labs: Afebrile, WBC 13.1 (02/18) Renal: BUN/SCr 10/1.0, estCrCL 94mL/min (adjBW) , UOP 2100 mL/24hr Micro: 02/09 BCx - NGTD, 01/31 MRSA scr een - NEGATIVE, 02/12 WCx - E. coli x2 /MRSA/E faecalis, 02/17 Left Ankle Wound/Foot Cx - Pending Imagin/28 foot XR: Osteomyelitis cannot be excluded Day 5. Current regimen is 1000 mg q12h. Plan: Continue regimen repeat peak/trough at [facility]. Peak 02/18@1100. Trough 02/18@2000. Calculate AUC, goal 400-600. Pharmacy will continue to monitor Thank you for this consult at 1155 RPT #:[id number] END OF REPORT 2022-02-18 [facility] 11:51:00-00:00 [facility] ([facility]) Infectious Dis. Progress Note REPORT#:[id number] REPORT STATUS: Signed DATE:02/18/22 TIME: 1151 PATIENT: PEDRO MCGREGOR UNIT #: [id number] [place] [facility] : [place] AGE: 66 SEX: M ATTEND: Jean-Paul Ward od, MD ADM AUTHOR: Ronak Hein MD * ALL edits or amendments must be made on the [email or web address] document * Subjective Chief complaint: Follow-up on left foot osteomyelitis HPI: Patient denies acute or new complaints today. No major overnight events. Objective General VS/I O: Vital Signs Date Temp Pulse Resp B/P B/P Mean Pulse Ox FiO2 02/17-02/18 97.5-98.4 71-97 12-17 91-132/55-64 0.0-80.9 94-98 Last Documented: Result Date Time Pulse Ox 98 02/19 1916 B/P 97/56 02/19 1916 B/P Mean 69.8 02/19 1916 Temp 98.2 02/18 191 Pulse 79 02/18 191 Resp 17 02/19 1916 O2 Delivery Room air 02/18 1530 O2 Flow Rate 6 02/17 1643 Vital Signs: Date Time Temp Pulse Resp B/P B/P Pulse O2 O2 F low FiO2 Mean Ox Delivery Rate 02/19 1916 98.2 79 17 97/56 69.8 98 02/18 1530 97.5 71 12 91/60 70.3 97 Room air 02/18 1253 97.5 74 16 103/60 74.3 96 Room air 02/18 0744 98.4 88 12 115/64 80.9 94 Room air 02/18 0431 98.2 93 16 104/55 0.0 95 Room air 02/18 0010 98.1 92 14 132/63 0.0 94 Room air 02/17 2030 97.7 97 16 119/62 80.8 95 Room air 24 hour I O ending at 0700: 02/18 0700 02/17 1900 Intake Total 1050.00 200 Output Total 1925 1050 Balance -875.00 -850 Intake, IV 250.00 Intake, Oral 800 200 Number 1 Bowel Movements Output, Urine 1925 1050 PATIENT WEIGHT: Weight (lb): 231 Weight (oz): 11.29 Weight (kg): 105.100 Physical Exam General appearance: alert, awake, no acute distr ess Wound/incision: Location: left foot wound + external fixator in place Cardiovascular: regular rate rhythm, no murmur Respiratory: clear to auscultation, no distress Abdomen: non-tender, soft, no distention Extremities: no cyanosis, no edema, left lower extremity in an external fixator Musculoskeletal: full range of motion, normal in spection Neuro/METAL WELDER: alert, oriented X 3 Skin: dry, intact, no rash Diagnosis, Assessment Plan Free Text A P: Assessment: *Osteomyelitis and septic arthritis of the left foot and ankle *HTN *Type 2 diabetes with neuropathy and nephropathy *Peripheral vascular disease -Afebrile. -Leukocytosis of 13.1 on yesterday's CBC noted; today's CBC not available. -ESR 97; CRP 103. -Wound culture with 2 different colonies of E. c karina, MRSA and Enterococcus faecalis from broth only. -Went back to the OR 02/17/22 and is now s/p I D. Overall findings of necrotic tendon, necrotic bone noted. -Surgical specimen with growth of 2 different gr am-negative rods. Identification and susceptibilities pending. Plan: -S/p treatment with piperaci llin-tazobactam till 02/11/2022 for prior isolates ( E. coli and E faecalis) from December. -Based on recent cultures from this admission, a ntibiotic therapy switched to ceftriaxone and vancomycin on 02/14/2022. -Would continue same for now. -Based on overall finding of necrotic tendon, ne crotic bone, would plan on another prolonged course of antibiotics of 4 to 6 weeks. -Follow surgical cultures from yesterday's speci men and tailor antibiotics as appropriate. -Antibiotics are being arranged through ID clini c. Discussed with patient at length at bedside. CURRENT ANTIMICROBIALS: Ceftriaxone + vancomycin, started 02/14/2022 Day 5 Electronically Signed by Ronak Hein MD on 08/05 at 1932 RPT #:[id number] END OF REPORT 2022-02-17 [facility] 18:39:00-00:00 [facility] ([facility]) Operative Note REPORT#:[id number] REPORT STATUS: Signed DATE:02/17/22 TIME: 1838 PATIENT: PEDRO MCGREGOR UNIT #: [id number] ROOM[facility]BED: [facility] [place] [facility] : 54 AGE: 66 SEX: M ATTEND: Jean-Paul Ward od, MD ADM AUTHOR: Faby Wharton DPM * ALL edits or amendments must be made on the [employer]/computer document * Operative Report Operative Note Note: Pre-procedure diagnosis: Infected wound left foot Abscess left foot Osteomyelitis left foot Post-procedure diagnosis: same as pre procedure dx Procedures performed: Incision and drainage left foot Sharp full-thickness excisional debridement incl uding dermis epidermis subcutaneous tissue necrotic tendon and necrotic bone left ankle and left plantar medial foot. Bone biopsy left foot and left ankle Primary Surgeon: faby wharton Piano Bench Assembler(s): none Anesthesia: general anesthesia Findings: Necrotic wound necrotic tendon left medial ankle posterior tibial tendon My necrosis 30 cc of purulent drainage left medi al foot. Estimated blood loss in ml's: 300cc Specimens removed/altered: Deep tissue culture s wab left foot left ankle Necrotic tendon culture Bone biopsy left medial ankle 66-year-old male with above-mentioned complaint. MRI obtained consistent with above-mentioned diagnosis. Discussed patrizia tono with the patient detail negatives of outcome given or implied. Verbal and written consent was obtained and placed in the patient's chart patient has chronic nonhe aling pathological Charcot arthropathy fracture of his left ankle with disp lacement status post external fixation application. Patient was seen i n the preoperative area transferred to the operating room placed operatively supine pos ition the left ankle lower extremity scrubbed prepped and draped in the usu al aseptic manner. The frame was also scrubbed prepped and draped in the usua l aseptic manner with chlorhexidine. Timeout was initiated. No tourniq uet was utilized. There was a medial left ankle wound and left medial arch wound. There was significant mount of tunneling and undermining with significant pu rulent drainage. The 2 wounds are communicating under the skin. We utilized fresh #15 blade incision drainage subfascial was performed. Purulent area was expr essed. Deep tissue culture swab was obtained sent to microbiology for evalu ation. Continuous dissection was carried down to the tenderness and bone stru cture. We utilized a combination of fresh #15 blade and bone rongeur forceps to perform sharp full- thickness excisional debride ment including dermis epidermis subcutaneous tissue necrotic posterior tibial tendon which w as noted to be significantly distorted and abnormal 90% of the tend on was debrided and removed. Dissection was carried down to the medial aspect of the left ankle and the talar component was noted to be soft and abnormal we utilized a bone rongeur debridement of all nonviable bone was performed. Part of the bone was sent to pathology for evaluation rule out osteomyelitis. Part of the tendon was also s ent to microbiology for evaluation as well. We utili zed 3000 cc of normal sterile saline mixed with 2 g of vancomycin aggressive pulse lavage was perfor med medial ankle. Significant lateral blood loss was appreciated. We utilized 30 cc of 1% lidocaine with epinephrine was injected about the operative sit e for hemostasis control. The wound was irrigated again with Dakin solution. T he wound was left open and Dakin solution wet-to-dry was applied 4 x 4 Kerl ix cast padding and Mg was applied. We will order a beny a flow wound VAC to be applied to the medial aspect of the left ankle and left foot wound. Primary c losure is not planned at this time but possibly in 1 week Electronically Signed by Faby Wharton DPM on 07/05 at 1930 RPT #:[id number] END OF REPORT 2022-02-17 [facility] 18:37:00-00:00 [facility] ([facility]) Brief Op Note REPORT#:[id number] REPORT STATUS: Signed DATE:02/17/22 TIME: 1836 PATIENT: PEDRO MCGREGOR UNIT #: [id number] ROOM/BED: [place] [address] : 54 AGE: 66 SEX: M ATTEND: Jean-Paul Ward od, MD ADM AUTHOR: Faby Wharton DPM * ALL edits or amendments must be made on the el ectronic/computer document * Op/Inv Proc Note - Brief Pre-procedure diagnosis: Infected wound left foot Abscess left foot Osteomyelitis left foot Post-procedure diagnosis: same as pre procedure dx Procedures performed: Incision and drainage left foot Sharp full-thickness excisional debridement incl uding dermis epidermis subcutaneous tissue necrotic tendon and necrotic bone left ankle and left plantar medial foot. Bone biopsy left foot and left ankle Primary Surgeon: faby wharton Piano Bench Assembler(s): none Anesthesia: general anesthesia Findings: Necrotic wound necrotic tendon left medial ankle posterior tibial tendon My necrosis 30 cc of purulent drainage left medi al foot. Complications: none Estimated blood loss in ml's: 300cc Specimens removed/altered: see report Electronically Signed by Faby Wharton DPM on 07/05 at 1930 RPT #:[id number] END OF REPORT 2022-02-17 [facility] 12:46:00-00:00 [facility] ([facility]) Infectious Dis. Progress Note REPORT#:[id number] REPORT STATUS: Signed DATE:02/17/22 TIME: 1246 PATIENT: PEDRO MCGREGOR UNIT #: [id number] ROOM/BED: [place] [address] : 54 AGE: 66 SEX: M ATTEND: Jean-Paul Ward od, MD ADM AUTHOR: Ronak Hein MD * ALL edits or amendments must be made on the Material Mix/computer document * Subjective Chief complaint: Follow-up on left foot osteomyelitis HPI: Patient denies acute or new complaints t yohana. No major overnight events. Going to the OR today. Objective General VS/I O: Vital Signs Date Temp Pulse Resp B/P B/P Mean Pulse Ox FiO2 02/16-02/17 97.5-98.2 71-91 18-20 103-133/59-74 0.0-93.6 93-98 Last Documented: Result Date Time Pulse Ox 94 02/17 1109 B/P 115/66 02/17 1109 B/P Mean 82.8 02/17 1109 Temp 97.9 02/17 1109 Pulse 71 02/17 1109 Resp 20 02/17 1109 O2 Delivery Room air 02/17 0438 O2 Flow Rate 2 02/12 0945 Vital Signs: Date Time Temp Pulse Resp B/P B/P Pulse O2 O2 F low FiO2 Mean Ox Delivery Rate 02/17 1109 97.9 71 20 115/66 82.8 94 / 0659 97.9 81 20 133/74 93.6 95 02/17 0438 98.2 84 18 113/71 84.9 96 Room air 02/17 0038 97.7 91 18 115/66 82.3 98 Room air 02/164 98.1 80 18 103/61 75.2 97 Room air 02/16 1618 97.5 72 18 104/59 0.0 93 24 hour I O ending at 0700: 02/17 0700 02/16 1900 Intake Total 1020.00 Output Total 600 1500 Balance -600 -480.00 Intake, IV 20.00 Intake, Oral 1000 Output, Urine 600 1500 PATIENT WEIGHT: Weight (lb): 231 Weight (oz): 11.29 Weight (kg): 105.100 Physical Exam General appearance: alert, awake, no acute distr ess Wound/incision: Location: left foot wound + external fixator in place Cardiovascular: regular rate rhythm, no murmur Respiratory: clear to auscultation, no distress Abdomen: non-tender, soft, no distention Extremities: no cyanosis, no edema, left lower extremity in an external fixator Musculoskeletal: full range of motion, normal in spection Neuro/METAL WELDER: alert, oriented X 3 Skin: dry, intact, no rash Diagnosis, Assessment Plan Free Text A P: Assessment: *Osteomyelitis and septic arthritis of the left foot and ankle *HTN *Type 2 diabetes with neuropathy and nephropathy *Peripheral vascular disease -Afebrile. -Leukocytosis of 13.1 on today's CBC noted. -ESR 97; CRP 103. -Wound culture with 2 different colonies of E. c karina, MRSA and Enterococcus faecalis from broth only. Plan: -S/p treatment with piperaci llin-tazobactam till 02/11/2022 for prior isolates ( E. coli and E faecalis) from December. -Based on recent cultures from this admission, a ntibiotic therapy switched to ceftriaxone and vancomycin on 02/14/2022. -Would continue same for now. -Plan for debridement today noted. Discussed wit podiatry service earlier. Appreciate plans to obtain r epeat bone culture and a bone biopsy to determine if patient still has underlying bone infection. -Will decide on treatment duration based on stud ies from OR specimen. CURRENT ANTIMICROBIALS: Ceftriaxone + vancomycin, started 02/14/2022 Day 4 Electronically Signed by Ronak Hein MD on 07/05 at 1250 RPT #:[id number] END OF REPORT 2022-02-17 [facility] 12:03:00-00:00 [facility] ([facility]) Pain Management Progress Note REPORT#:[id number] REPORT STATUS: Signed DATE:02/17/22 TIME: 1203 PATIENT: PEDRO MCGREGOR UNIT #: [id number] [place] [facility] : [place] AGE: 66 SEX: M ATTEND: Jean-Paul Ward od, MD ADM AUTHOR: Emy Mayes NP * ALL edits or amendments must be made on the Material Mix/computer document * Subjective Chief complaint: Foot Wound. Interval History 02/17/2021 Patient chart, note and event reviewed Patient is laying in bed, fully alert, awake hem odynamically stable I D with debridment Left ankle Pain is controlled Mood is ok Sleep is ok. Denied insomnia No constipation Review of Systems Additional notes: Review was conducted and was negative except for what's noted in the HPI and Medical History. The following systems were revi ewed: Constitutional, cardiovascular, respiratory, gastrointes tinal, genitourinary, musculoskeletal, neurologic, psychiatric, endocrinological, and h ematological. Objective General VS/I O: Vital Signs Date Temp Pulse Resp B/P B/P Mean Pulse Ox FiO2 02/16-02/17 97.5-98.2 68-91 12-20 103-133/59-74 0.0-93.6 93-100 Last Documented: Result Date Time Pulse Ox 94 02/17 1109 B/P 115/66 02/17 1109 B/P Mean 82.8 02/17 1109 Temp 97.9 02/17 1109 Pulse 71 02/17 1109 Resp 20 02/17 1109 O2 Delivery Room air 02/17 0438 O2 Flow Rate 2 02/12 0945 24 hour I O ending at 0700: 02/17 0700 02/16 1900 Intake Total 1020.00 Output Total 600 1500 Balance -600 -480.00 Intake, IV 20.00 Intake, Oral 1000 Output, Urine 600 1500 PATIENT WEIGHT: Weight (lb): 231 Weight (oz): 11.29 Weight (kg): 105.100 Medications: Active Meds + DC'd Last 24 Hrs Vancomycin HCl (VANCOMYCIN HCL) 1,000 MG Q12HR I V Sodium Chloride (SODIUM CHLORIDE 0.9%) 250 ML Hydromorphone HCl (DILAUDID) 0.5 MG Q4H PRN PRN IV Oxycodone/Acetaminophen (PERCOCET 5/325MG TAB) 2 TAB Q4H PRN PRN PO Vancomycin HCl (VANCOMYCIN HCL) 1,250 MG Q12H IV (DC) Sodium Chloride (SODIUM CHLORIDE 0.9%) 250 ML Ceftriaxone Sodium (ROCEPHIN) 2,000 MG Q24H IV Sodium Chloride (SODIUM CHLORIDE) 20 ML Miscellaneous Information (VANCOMYCIN PHARMACY T O DOSE) 1 EACH ASDIR IV (CKD) Sterile Water (WATER FOR IRRIGATION) DRESSING CH SHERICE ASDIR PRN IRR Glucagon (GLUCAGON) 1 MG ASDIR PRN IM Citalopram Hydrobromide (CeleXA) 20 MG DAILY PO Duloxetine HCl (CYMBALTA) 30 MG DAILY PO Furosemide (LASIX) 40 MG DAILY PO Lactulose (LACTULOSE) 20 GM BID PO Tamsulosin HCl (Flomax 0.4 mg) 0.4 MG DAILY PO Aspirin (ASPIRIN) 81 MG C BK PO Insulin Human Lispro (HUMALOG) 10 UNIT AC BK GRACE SUBQ Pantoprazole (PROTONIX) 40 MG DAILY 0600 PO Atorvastatin Calcium (LIPITOR) 80 MG BEDTIME PO Ferrous Sulfate (FERROUS SULFATE) 325 MG BID PO Gabapentin (NEURONTIN) 300 MG BEDTIME PO Ursodiol (ActigalL) 300 MG BID PO Docusate Sodium (COLACE) 100 MG DAILY PO Acetaminophen (TYLENOL) 650 MG Q4H PRN PRN PO Enoxaparin Sodium (lovENOX) 40 MG DAILY 1700 SUB Q Metoprolol Tartrate (LOPRESSOR) 25 MG DAILY PO Insulin Human Lispro (HUMALOG) 0 AC HS SUBQ Insulin Human Lispro (HUMALOG) 10 UNIT AC DIN MARR BQ Hydralazine HCl (APRESOLINE) 10 MG Q6H PRN PRN I V Ondansetron HCl (ZOFRAN) 4 MG Q4H PRN PRN IV Dietitian nutrition assessment The data set between the solid lines has been im ported from the dietitian's assessment. BMI Calculated: 29.0 Nutrition related diagnosis: Nutrition diagnosis details: Nutrition problem: Nutrition etiology: Nutrition signs and symptoms: Nutrition prescription: Dietitian name: Assessment completed: Physical Exam General appearance: alert, awake, oriented, no a cute distress, pleasant, conversational, mental status normal, no respira tory distress Head/eyes: atraumatic, PERRLA Neck: full range of motion, non-tender Cardiovascular: normal capillary refill, regular rate rhythm Abdomen: soft Extremities: moves all (left leg wound/ external fix) Neuro/METAL WELDER: alert Results Findings/data: Laboratory Tests: 02/17 02/17 02/17 02/17 1106 0706 0525 0525 Chemistry Sodium (134 - 147 mEq/L) 137 Potassium (3.4 - 5.0 mEq/L) 3.3 L Chloride (100 - 108 mEq/L) 100 Carbon Dioxide (21 - 33 mEq/l) 27 Anion Gap (0 - 20) 14 BUN (7 - 18 mg/dL) 10 Creatinine (0.6 - 1.3 mg/dL) 1.0 Glomerular Filtr Rate (80 - 90) 82.5 Glucose (70 - 110 mg/dL) 244 H POC Glucose (70 - 110 MG/DL) 265 H 247 H Calcium (8.0 - 10.5 mg/dL) 9.4 Total Bilirubin (0.0 - 1.0 mg/dL) 0.20 AST (15 - 37 IUnit/L) 24 ALT (30 - 65 IUnit/L) 13 L Total Alk Phosphatase (20 - 125 IUnit/L) 183 H C-Reactive Protein (<10.0 mg/L) 103.0 H Total Protein (6.4 - 8.2 g/dL) 7.5 Albumin (3.4 - 5.0 g/dL) 2.20 L Hematology WBC (4.5 - 11.0 x10 3/uL) 13.1 H RBC (4.00 - 5.60 x10 6/uL) 3.71 L Hgb (12.5 - 16.9 g/dL) 10.1 L Hct (37.5 - 50.7 %) 31.9 L MCV (81.0 - 99.0 fL) 86.0 MCH (27.0 - 33.0 pg) 27.2 MCHC (33.0 - 37.0 g/dL) 31.7 L RDW (11.5 - 14.5 %) 16.2 H Plt Count (150 - 400 x10 3/uL) 587 H MPV (7.0 - 9.0 fL) 11.9 H Neut % (Auto) (56.0 - 77.0 %) 47.2 L Lymph % (Auto) (14.0 - 32.0 %) 37.9 H Kern % (Auto) (4.8 - 9.0 %) 10.0 H Eos % (Auto) (0.3 - 3.7 %) 4.1 H Baso % (Auto) (0.0 - 2.0 %) 0.5 Neut # (Auto) (2.0 - 7.6 x10 3/uL) 6.18 Lymph # (Auto) (1.0 - 3.8 x10 3/uL) 4.94 H Kern # (Auto) (0.1 - 0.8 x10 3/uL) 1.30 H Eos # (Auto) (0.0 - 0.2 x10 3/uL) 0.53 H Baso # (Auto) (0.0 - 0.2 x10 3/uL) 0.06 Abs Immat Gran (auto) (0.00 - 0.03 0.04 H x10 3/uL) Add Manual Diff NO Immature Gran % (0.0 - 2.0 %) 0.3 Nucleated RBC % (0 - 0 %) 0.0 Nucleated RBCs # (Man) (0.0 - 0.1 0.00 x10 3/uL) ESR Westergren (0 - 15 mm/hr) 97 H Serology SARS-CoV-2 Ag (Rapid) (Negative) Negative 02/16 1615 1211 Chemistry POC Glucose (70 - 110 MG/DL) 197 H 191 H 271 H Diagnosis, Assessment Plan Free text A P: Assessment/Plan Daily Plan 02/17/2021 Patient assessed. Pain is contolled with current pain medical management. Continue IV antibiotics per ID. Plan 1. Acute complex pain syndrome 2/2 left leg oste omilitis -Dilaudid 0.5mg IV Q4H PRN for pain 7-10, secon d line -oxycodone 10/325 q4H PRN for pain 7-10 first l ine -Tylenol 650 mg PO Q6h for pain 1-3 2. Neuropathic pain -gabapentin 300mg PO Bedtime -cymbalta 30mg twice a day 3. Muscle spasm flexeril 5mg po TID 4. Bowel Regimen - colace -continue pain regimen as above -Monitor for S/E such as AMS , Lethargy/sedation, changes in respiratory function -Continue BP parameters -APS( Acute Pain services) will continue to foll ow -please call pain management for any pain-relate d concerns or questions Goal: Daily pain control to improve function and /or quality of life ([x]) Pain control until condition naturally res olves ([x]) Inpatient pain control ([x]) Improved sleep cycle ([x]) all narcotics medications will be adjusted according to the patient's medical condition during the hospital stay Alll diagnostic images/lab and medical records d uring the course of this admission as well as ASSISTANT CHIEF TRAIN DISPATCHER records reviewed Risk versus benefit of opiate medications: All r isk and benefit were reviewed with the patient and family members, risk not limited to respiratory depression, accidental overdose, risk of fall, altered menta l status, constipation, dependency, addiction, withdrawn, sudden . Plan discussed with: The pain plan of ca re has been discussed with the patient and the nursing staff. Patient is in agr eement with the following plan of care and wishes to proceed. Quest ions and concerns have been answered to the patient' s satisfaction. Patient has verbalized understan iqra. Plan discussed with: patient Electronically Signed by Emy Mayes NP on 0 02/17/22 at 1446 [facility] #:[id number] END OF REPORT 2022-02-17 [facility] 11:22:00-00:00 [facility] ([facility] Hospitalist Progress Note REPORT#:[id number] REPORT STATUS: Signed DATE:02/17/22 TIME: 1122 PATIENT: PEDRO MCGREGOR UNIT #: [id number] ROOM/BED: [place] [address] : 54 AGE: 66 SEX: M ATTEND: Max Ward MD ADM AUTHOR: Lexa Samson LINK CUTTER * ALL edits or amendments must be made on the Material Mix/computer document * Lexa Samson 02/17/22 1122: Subjective Chief complaint: He is NPO for debridement. Tolerating wound care. Breathing is stable. LE pain is controlled with meds. No CP, fever, chills. BP and HR stable. Review of Systems Constitutional: Reports: fatigue, generalized weakness. Allergy/Immun: Denies: anaphylaxis, hives, rhinorrhea. ENT: Denies: ear ringing, hearing loss, sinus problem . Respiratory: Denies: hemoptysis, non productive cough, pleuri tic pain. Cardiovascular: Denies: chest pain, edema, orthopnea, palpitatio ns. GI: Denies: constipation, dysphagia, hiatal hernia. : Denies: flank pain, hematuria, penile lesion, ur gency. Heme: Denies: bleeding, bruising. Neuro: Denies: bowel dysfunction, dizziness, headache, lightheaded, seizure. Objective General VS/I O: Vital Signs: Date Time Temp Pulse Resp B/P B/P Pulse O2 O2 F low FiO2 Mean Ox Delivery Rate 02/17 1109 36.6 71 20 115/66 82.8 94 02/17 0659 36.6 81 20 133/74 93.6 95 02/17 0438 36.8 84 18 113/71 84.9 96 Room air 02/17 0038 36.5 91 18 115/66 82.3 98 Room air 02/16 2034 36.7 80 18 103/61 75.2 97 Room air 02/16 1618 36.4 72 18 104/59 0.0 93 /04 1216 36.6 68 12 109/59 0.0 100 24 hour I O ending at 0700: 05 0700 02/16 1900 Intake Total 1020.00 Output Total 600 1500 Balance -600 -480.00 Intake, IV 20.00 Intake, Oral 1000 Output, Urine 600 1500 PATIENT WEIGHT: Weight (lb): 231 Weight (oz): 11.29 Weight (kg): 105.100 Medications: Active Meds + DC'd Last 24 Hrs Vancomycin HCl (VANCOMYCIN HCL) 1,000 MG Q12HR I V Sodium Chloride (SODIUM CHLORIDE 0.9%) 250 ML Hydromorphone HCl (DILAUDID) 0.5 MG Q4H PRN PRN IV Oxycodone/Acetaminophen (PERCOCET 5/325MG TAB) 2 TAB Q4H PRN PRN PO Vancomycin HCl (VANCOMYCIN HCL) 1,250 MG Q12H IV (DC) Sodium Chloride (SODIUM CHLORIDE 0.9%) 250 ML Ceftriaxone Sodium (ROCEPHIN) 2,000 MG Q24H IV Sodium Chloride (SODIUM CHLORIDE) 20 ML Miscellaneous Information (VANCOMYCIN PHARMACY T O DOSE) 1 EACH ASDIR IV (CKD) Sterile Water (WATER FOR IRRIGATION) DRESSING CH SHERICE ASDIR PRN IRR Glucagon (GLUCAGON) 1 MG ASDIR PRN IM Citalopram Hydrobromide (CeleXA) 20 MG DAILY PO Duloxetine HCl (CYMBALTA) 30 MG DAILY PO Furosemide (LASIX) 40 MG DAILY PO Lactulose (LACTULOSE) 20 GM BID PO Tamsulosin HCl (Flomax 0.4 mg) 0.4 MG DAILY PO Aspirin (ASPIRIN) 81 MG C BK PO Insulin Human Lispro (HUMALOG) 10 UNIT AC BK GRACE SUBQ Pantoprazole (PROTONIX) 40 MG DAILY 0600 PO Atorvastatin Calcium (LIPITOR) 80 MG BEDTIME PO Ferrous Sulfate (FERROUS SULFATE) 325 MG BID PO Gabapentin (NEURONTIN) 300 MG BEDTIME PO Ursodiol (ActigalL) 300 MG BID PO Docusate Sodium (COLACE) 100 MG DAILY PO Acetaminophen (TYLENOL) 650 MG Q4H PRN PRN PO Enoxaparin Sodium (lovENOX) 40 MG DAILY 1700 SUB Q Metoprolol Tartrate (LOPRESSOR) 25 MG DAILY PO Insulin Human Lispro (HUMALOG) 0 AC HS SUBQ Insulin Human Lispro (HUMALOG) 10 UNIT AC DIN MARR BQ Hydralazine HCl (APRESOLINE) 10 MG Q6H PRN PRN I V Ondansetron HCl (ZOFRAN) 4 MG Q4H PRN PRN IV Dietitian nutrition assessment The data set between the solid lines has been im ported from the dietitian's assessment. BMI Calculated: 29.0 Nutrition related diagnosis: Nutrition diagnosis details: Nutrition problem: Nutrition etiology: Nutrition signs and symptoms: Nutrition prescription: Dietitian name: Assessment completed: Physical Exam General appearance: obese, alert, awake Head/Eyes: atraumatic, normocephalic, PERRLA Neck: full range of motion, normal thyroid, supp le/no meningismus Cardiovascular: normal capillary refill, normal heart sounds, regular rate rhythm Respiratory: aerating well, symmetric expansion, no distress Abdomen: normal bowel sounds, soft Genitourinary: no flank pain, no urinary cathete r Extremities: no calf tenderness, no clubbing, no cyanosis Musculoskeletal: no muscle spasm Neuro/METAL WELDER: alert, oriented X 3, CNII-XII intact Psychiatry: normal affect, normal mood Results Findings/Data: Laboratory Tests 02/17 02/17 02/17 02/17 02/16 1106 0706 0525 0525 2034 Chemistry Sodium (134 - 147 mEq/L) 137 Potassium (3.4 - 5.0 mEq/L) 3.3 L Chloride (100 - 108 mEq/L) 100 Carbon Dioxide (21 - 33 mEq/l) 27 Anion Gap (0 - 20) 14 BUN (7 - 18 mg/dL) 10 Creatinine (0.6 - 1.3 mg/dL) 1.0 Glomerular Filtr Rate (80 - 90) 82.5 Glucose (70 - 110 mg/dL) 244 H POC Glucose (70 - 110 MG/DL) 265 H 247 H 197 H Calcium (8.0 - 10.5 mg/dL) 9.4 Total Bilirubin (0.0 - 1.0 mg/dL) 0.20 AST (15 - 37 IUnit/L) 24 ALT (30 - 65 IUnit/L) 13 L Total Alk Phosphatase (20 - 125 IUnit/L) 183 H C-Reactive Protein (<10.0 mg/L) 103.0 H Total Protein (6.4 - 8.2 g/dL) 7.5 Albumin (3.4 - 5.0 g/dL) 2.20 L 02/16 02/16 1615 1211 Chemistry POC Glucose (70 - 110 MG/DL) 191 H 271 H Laboratory Tests 02/17 0525 Hematology WBC (4.5 - 11.0 x10 3/uL) 13.1 H RBC (4.00 - 5.60 x10 6/uL) 3.71 L Hgb (12.5 - 16.9 g/dL) 10.1 L Hct (37.5 - 50.7 %) 31.9 L MCV (81.0 - 99.0 fL) 86.0 MCH (27.0 - 33.0 pg) 27.2 MCHC (33.0 - 37.0 g/dL) 31.7 L RDW (11.5 - 14.5 %) 16.2 H Plt Count (150 - 400 x10 3/uL) 587 H MPV (7.0 - 9.0 fL) 11.9 H Neut % (Auto) (56.0 - 77.0 %) 47.2 L Lymph % (Auto) (14.0 - 32.0 %) 37.9 H Kern % (Auto) (4.8 - 9.0 %) 10.0 H Eos % (Auto) (0.3 - 3.7 %) 4.1 H Baso % (Auto) (0.0 - 2.0 %) 0.5 Neut # (Auto) (2.0 - 7.6 x10 3/uL) 6.18 Lymph # (Auto) (1.0 - 3.8 x10 3/uL) 4.94 H Kern # (Auto) (0.1 - 0.8 x10 3/uL) 1.30 H Eos # (Auto) (0.0 - 0.2 x10 3/uL) 0.53 H Baso # (Auto) (0.0 - 0.2 x10 3/uL) 0.06 Abs Immat Gran (auto) (0.00 - 0.03 x10 3/uL) 0. 04 H Add Manual Diff NO Immature Gran % (0.0 - 2.0 %) 0.3 Nucleated RBC % (0 - 0 %) 0.0 Nucleated RBCs # (Man) (0.0 - 0.1 x10 3/uL) 0.0 0 ESR Westergren (0 - 15 mm/hr) 97 H Laboratory Tests 02/17 0525 Serology SARS-CoV-2 Ag (Rapid) (Negative) Negative Laboratory Tests 02/16 1200 Toxicology Vancomycin Trough (10.0 - 20.0 mcg/mL) 21.5 *H Results: labs reviewed, vital signs reviewed, vi maida signs stable, current med profile rev'd Treatment Prophylaxis Treatment Prophylaxis Oxygen: room air Diagnosis, Assessment Plan Hospital course to date: ASSESSMENT AND PLAN: - Recurrent left foot osteomyelitis. - Left foot pain, status post recent procedure. - Leukocytosis. - Hypokalemia-replaced - Hypomagnesemia-replaced. - Recently treated for bacteremia Enterococcal f aecalis. - History of hypertension. - History of hyperlipidemia. - History of depression, mood disorder. - History of diabetes type 2. - History of diabetic foot ulcer, nonhealing. - History of liver disease. PLAN: CVN1. NPO for Procedure, debridement today. Continue to monitor blood pressure and heart rat e. ID following for OM. Pain medication. Antiemetics. Follow labs and replace as needed. SCD for DVT prophylaxis. Continue home medication. Glycemic control, Accu-Cheks, sliding scale and diabetic diet. Monitor. Code status: full code Plan discussed with: patient, admitting physicia n, consultants, nurse Chelo Ward 02/18/221: Attestations Physician Attestation Agree w/findings plan: Patient seen and examined, I agree with the findings and plans as documented by Lexa Samson NP Electronically Signed by Lexa Samson NP on 07/05 at 1125 Electronically Signed by Chelo Ward MD on 0 02/18/22 at 2151 [facility] #:[id number] END OF REPORT 2022-02-17 [facility] 09:57:00-00:00 [facility] ([facility]) Pharmacy Prog.Note-Vancomycin REPORT#:[id number] REPORT STATUS: Signed DATE:02/17/22 TIME: 956 PATIENT: PEDRO MCGREGOR UNIT #: [id number] ROOM/BED: [place] [address] : 54 AGE: 66 SEX: M ATTEND: Jean-Paul Ward od, MD ADM AUTHOR: Luigi Cornelius [facility] * ALL edits or amendments must be made on the el [employer]ass Monkey/computer document * Vancomycin Vancomycin Medication Therapy Goal: AUC 400-600 mcg*hr/mL Indication for treatment: Osteomyelitis Site of infection: known Current therapy: CEFTRIAXONE AND VANCOMYCIN Day of therapy: 4 Weight: Actual weight (kg): 105.1 VS and I/O: Vital Signs Date Temp Pulse Resp B/P B/P Mean Pulse Ox FiO2 02/14-02/17 97.5-99.3 57-98 12-20 94-152/55-80 0.0-104.4 91-100 72 hours ending at 0700 02/17 0702/16 1900 02/16 0702/15 1900 02/14 0700 1900 Intake 1020.00 480 251.00 730.00 800 Total Output 600 1500 1175 2050 1400 Total Balance -600 -480.00 -695 -1799.00 730.00 -600 Intake, IV 20.00 251.00 250.00 Intake, 1000 480 480 800 Oral Output, 600 1500 1175 2050 1400 Urine 72 Hour I O Total 02/17 0702/16 0702/15 0700 Intake Total 1020.00 731.00 1530.00 Output Total 2100 3225 1400 Balance -1080.00 -2494.00 130.00 Labs: Laboratory Tests: 02/16 1200 Toxicology Vancomycin Trough (10.0 - 20.0 mcg/mL) 21.5 *H Laboratory Test : 02/17 05 Chemistry BUN (7 - 18 mg/dL) 10 Creatinine (0.6 - 1.3 mg/dL) 1.0 Hematology WBC (4.5 - 11.0 x10 3/uL) 13.1 H Drug admin history: Lab Lab Level SCr Info Software Integration Developer Med Dose Inter action/Dialysis Date/Time Date/Time Notes: Treatment plan: consult, cont current regimen/do se Rationale: Patient is a 66-year-old white male with a PMHx of obesity, HLD, PVD, HTN, DM type 2, and history of E. fa ecalis bacteremia in November 2021 s/p broad spectrum antibiotics. Previously admi tted to [facility] with the left foot/ankle OM and septic arthritis. The patient underwent d ebridement and PICC line placements at that time, and external fixator pl acement on 01/06/2022. He was discharged to the nursing [facility] to continue Zosyn until 02/11 for prior isolates (E. coli and E. faecalis) from December. At the [facility] he was complaining of pain, became hypotensive and tachycardic, and so he is no w readmitted. Patient reports minimal drainage from the external fixator pin sites. Pharmacy has bee n consulted by ID to dose vancomycin. Consulting Provider: Ronak Hein MD Indication: OM Goal AUC 400-600 mcg*hr/mL 02/17 A/P: * afebrile, WBC 13.1, * Renal: BUN/SCr 14/1.0, estCrCL 94mL/min (adjBW ), UOP 2100 mL/24hr * Micro: 02/09 BCx - NGTD, 1 04/03 MRSA screen - NEGATIVE, 02/12 WCx - E. coli x2/ MRSA/E faecalis * Imagin/28 foot XR: Osteomyelitis cannot b e excluded * Day 4. Dose reduced to 1gm vancomycin iv q12h yesterday due to supratherapeutic AUC. * Plan: Continue regimen repeat peak/trough at s teady state. Peak 02/18@1100. Trough 02/18@2000. Calculate AUC, goal 400-600. Electronically Signed by Luigi Cornelius harris on 02/[address] [place] [address] #:[id number] END OF REPORT 2022-02-16 [facility] 19:34:00-00:00 [facility] ([facility]) Podiatry Progress Note REPORT#:[id number] REPORT STATUS: Signed DATE:02/16/22 TIME: 1933 PATIENT: PEDRO MCGREGOR UNIT #: [id number] [place] [facility] : [place] AGE: 66 SEX: M ATTEND: Jean-Paul Ward od, MD ADM AUTHOR: Faby Wharton DPM * ALL edits or amendments must be made on the [email or web address] document * Subjective Chief complaint: foot infection Patient reports: no complaints Objective General VS: Last Documented: Result Date Time Pulse Ox 93 02/16 1618 B/P 104/59 02/16 1618 B/P Mean 0.0 02/16 1618 Temp 36.4 02/16 1618 Pulse 72 02/16 1618 Resp 18 02/16 1618 O2 Delivery Room air 02/16 0445 O2 Flow Rate 2 02/12 0945 PATIENT WEIGHT: Weight (lb): 231 Weight (oz): 11.29 Weight (kg): 105.100 Medications: Active Meds + DC'd Last 24 Hrs Vancomycin HCl (VANCOMYCIN HCL) 1,000 MG Q12HR I V Sodium Chloride (SODIUM CHLORIDE 0.9%) 250 ML Hydromorphone HCl (DILAUDID) 0.5 MG Q4H PRN PRN IV Oxycodone/Acetaminophen (PERCOCET 5/325MG TAB) 2 TAB Q4H PRN PRN PO Vancomycin HCl (VANCOMYCIN HCL) 1,250 MG Q12H IV (DC) Sodium Chloride (SODIUM CHLORIDE 0.9%) 250 ML Ceftriaxone Sodium (ROCEPHIN) 2,000 MG Q24H IV Sodium Chloride (SODIUM CHLORIDE) 20 ML Miscellaneous Information (VANCOMYCIN PHARMACY T O DOSE) 1 EACH ASDIR IV (CKD) Sterile Water (WATER FOR IRRIGATION) DRESSING CH SHERICE ASDIR PRN IRR Glucagon (GLUCAGON) 1 MG ASDIR PRN IM Citalopram Hydrobromide (CeleXA) 20 MG DAILY PO Duloxetine HCl (CYMBALTA) 30 MG DAILY PO Furosemide (LASIX) 40 MG DAILY PO Lactulose (LACTULOSE) 20 GM BID PO Tamsulosin HCl (Flomax 0.4 mg) 0.4 MG DAILY PO Aspirin (ASPIRIN) 81 MG C BK PO Insulin Human Lispro (HUMALOG) 10 UNIT AC BK GRACE SUBQ Pantoprazole (PROTONIX) 40 MG DAILY 0600 PO Atorvastatin Calcium (LIPITOR) 80 MG BEDTIME PO Ferrous Sulfate (FERROUS SULFATE) 325 MG BID PO Gabapentin (NEURONTIN) 300 MG BEDTIME PO Ursodiol (ActigalL) 300 MG BID PO Docusate Sodium (COLACE) 100 MG DAILY PO Acetaminophen (TYLENOL) 650 MG Q4H PRN PRN PO Enoxaparin Sodium (lovENOX) 40 MG DAILY 1700 SUB Q Metoprolol Tartrate (LOPRESSOR) 25 MG DAILY PO Insulin Human Lispro (HUMALOG) 0 AC HS SUBQ Insulin Human Lispro (HUMALOG) 10 UNIT AC DIN MARR BQ Hydralazine HCl (APRESOLINE) 10 MG Q6H PRN PRN I V Ondansetron HCl (ZOFRAN) 4 MG Q4H PRN PRN IV I O: 24 hour I O ending at 0700: 04 0700 02/15 1900 Intake Total 480 251.00 Output Total 1175 2050 Balance -695 -1799.00 Intake, IV 251.00 Intake, Oral 480 Output, Urine 1175 0 Dietitian nutrition assessment The data set between the solid lines has been im ported from the dietitian's assessment. BMI Calculated: 29.0 Nutrition related diagnosis: Nutrition diagnosis details: Nutrition problem: Nutrition etiology: Nutrition signs and symptoms: Nutrition prescription: Dietitian name: Assessment completed: Physical Exam Wound/incision: Location: Left foot DP and PT pulses 1/4 barely palpable. Light touch and protective sensation greatly de creased left foot. Extensive wound from the medial aspect of the l eft hindfoot to the medial aspect of the left midfoot. Wide open with thick purulent drainage very mal odorous. Ulcer plantar left first metatarsal head is sup erficial. Erythema of the left foot. No crepitation External fixator is in place. Foot is underneath the leg.. LE vascular pulse assess: 1+ L posterior tibialis, 1+ L dorsalis pedis Results Findings/Data: Laboratory Tests: 02/16 02/16 02/16 02/16 02/16 1615 1211 1200 0941 0435 Chemistry POC Glucose (70 - 110 MG/DL) 191 H 271 H 249 H Toxicology Vancomycin Trough (10.0 - 20.0 mcg/mL) 21.5 *H 34.1 *H 02/15 1958 Chemistry POC Glucose (70 - 110 MG/DL) 201 H Results: labs reviewed Diagnosis, Assessment Plan Free Text A P: External fixator left lower extremity Cellulitis and draining wound medial left foot Diabetes with peripheral neuropathy Superficial ulcer left forefoot culture left foot: E coli, Coag Pos staph IV antibiotics X-rays noted within normal limits daily pulse lavage He is on oral gabapentin Electronically Signed by Faby Wharton DPM on 07/05 at 1930 RPT #:[id number] END OF REPORT 2022-02-16 [facility] 11:59:00-00:00 [facility] ([facility] Infectious Dis. Progress Note REPORT#:[id number] REPORT STATUS: Signed DATE:02/16/22 TIME: 1159 PATIENT: PEDRO MCGREGOR UNIT #: [id number] ROOM/BED: [place] [address] : 54 AGE: 66 SEX: M ATTEND: Max Ward MD ADM AUTHOR: Ronak Hein MD * ALL edits or amendments must be made on the el ectronic/computer document * Subjective Chief complaint: Follow-up on left foot osteomyelitis HPI: Pt is a 66 yr old male with left foot osteomyeli tis. Interval history: Patient denies acute or new co mplaints today. Objective General VS/I O: Vital Signs Date Temp Pulse Resp B/P B/P Mean Pulse Ox FiO2 01/03-02/16 97.5-98.2 57-98 12-18 94-152/55-80 0.0-104.4 91-100 Last Documented: Result Date Time Pulse Ox 93 02/16 1618 B/P 104/59 / 1618 B/P Mean 0.0 02/16 1618 Temp 97.5 02/16 1618 Pulse 72 02/16 1618 Resp 18 02/16 1618 O2 Delivery Room air 02/16 0445 O2 Flow Rate 2 02/12 0945 Vital Signs: Date Time Temp Pulse Resp B/P B/P Pulse O2 O2 F low FiO2 Mean Ox Delivery Rate 02/16 1618 97.5 72 18 104/59 0.0 93 02/16 1216 97.9 68 12 109/59 0.0 100 02/16 0802 98.2 98 13 94/70 0.0 91 02/16 0445 98.2 88 18 152/80 104.4 97 Room air 02/15 2325 97.9 89 18 117/70 85.6 97 Room air 02/15 2003 97.7 57 18 107/55 0.0 96 Room air 24 hour I O ending at 0700: 02/16 0700 02/15 1900 Intake Total 480 251.00 Output Total 1175 2050 Balance -695 -1799.00 Intake, IV 251.00 Intake, Oral 480 Output, Urine 1175 0 PATIENT WEIGHT: Weight (lb): 231 Weight (oz): 11.29 Weight (kg): 105.100 Physical Exam General appearance: alert, awake, no acute distr ess Wound/incision: Location: left foot wound + external fixator in place Cardiovascular: regular rate rhythm, no murmur Respiratory: clear to auscultation, no distress Abdomen: non-tender, soft, no distention Extremities: no cyanosis, no edema, left lower extremity in an external fixator Neuro/METAL WELDER: alert, oriented X 3 Skin: dry, intact, no rash Diagnosis, Assessment Plan Free Text A P: Assessment: 1. 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 -Wound culture with 2 different colonies of E. c karina, MRSA and gamma hemolytic Streptococcus from broth only. Plan: -S/p treatment with piperaci llin-tazobactam till 02/11/2022 for prior isolates ( E. coli and E faecalis) from December. -Based on recent cultures from this admission, a ntibiotic therapy switched to ceftriaxone and vancomycin on 02/14/2022. -Would continue same for now. -Plan for debridement tomorrow noted. Discussed with podiatry service. Appreciate plans to obtain r epeat bone culture and a bone biopsy to determine if patient still has underlying bone infection. -Will decide on treatment duration based on stud ies from oral specimen. Electronically Signed by Ronak Hein MD on 06/05 at 1736 RPT #:[id number] END OF REPORT 2022-02-16 [facility] 10:50:00-00:00 [facility] ([facility]) Pain Management Progress Note REPORT#:[id number] REPORT STATUS: Signed DATE:02/16/22 TIME: 1050 PATIENT: PEDRO MCGREGOR UNIT #: [id number] ROOM/BED: [place] [address] : 54 AGE: 66 SEX: M ATTEND: Jean-Paul Ward od, MD ADM AUTHOR: Emy Mayes NP * ALL edits or amendments must be made on the Material Mix/computer document * Subjective Chief complaint: Foot Wound. Interval History 02/16/2021 Patient chart, note and event reviewed Patient is laying in bed, fully alert, awake hem odynamically stable Pain is controlled Mood is ok Sleep is ok. Denied insomnia No constipation Review of Systems Additional notes: Review was conducted and was negative except for what's noted in the HPI and Medical History. The following systems were revi ewed: Constitutional, cardiovascular, respiratory, gastrointes tinal, genitourinary, musculoskeletal, neurologic, psychiatric, endocrinological, and h ematological. Objective General VS/I O: Vital Signs Date Temp Pulse Resp B/P B/P Mean Pulse Ox FiO2 02/15-02/16 97.7-98.2 57-98 13-18 94-152/55-80 0.0-104.4 91-98 Last Documented: Result Date Time Pulse Ox 91 02/16 801 B/P 94/70 02/16 801 B/P Mean 0.0 02/16 801 Temp 98.2 02/16 801 Pulse 98 02/16 801 Resp 13 02/16 08 O2 Delivery Room air 02/16 0445 O2 Flow Rate 2 02/12 0945 24 hour I O ending at 0700: 02/16 0700 02/15 1900 Intake Total 480 251.00 Output Total 1175 0 Balance -695 -1799.00 Intake, IV 251.00 Intake, Oral 480 Output, Urine 1175 2049 PATIENT WEIGHT: Weight (lb): 231 Weight (oz): 11.29 Weight (kg): 105.100 Medications: Active Meds + DC'd Last 24 Hrs Hydromorphone HCl (DILAUDID) 0.5 MG Q4H PRN PRN IV Oxycodone/Acetaminophen (PERCOCET 5/325MG TAB) 2 TAB Q4H PRN PRN PO Vancomycin HCl (VANCOMYCIN HCL) 1,250 MG Q12H IV Sodium Chloride (SODIUM CHLORIDE 0.9%) 250 ML Ceftriaxone Sodium (ROCEPHIN) 2,000 MG Q24H IV Sodium Chloride (SODIUM CHLORIDE) 20 ML Miscellaneous Information (VANCOMYCIN PHARMACY T O DOSE) 1 EACH ASDIR IV (CKD) Sterile Water (WATER FOR IRRIGATION) DRESSING CH SHERICE ASDIR PRN IRR Glucagon (GLUCAGON) 1 MG ASDIR PRN IM Citalopram Hydrobromide (CeleXA) 20 MG DAILY PO Duloxetine HCl (CYMBALTA) 30 MG DAILY PO Furosemide (LASIX) 40 MG DAILY PO Lactulose (LACTULOSE) 20 GM BID PO Tamsulosin HCl (Flomax 0.4 mg) 0.4 MG DAILY PO Aspirin (ASPIRIN) 81 MG C BK PO Insulin Human Lispro (HUMALOG) 10 UNIT AC BK GRACE SUBQ Pantoprazole (PROTONIX) 40 MG DAILY 0600 PO Atorvastatin Calcium (LIPITOR) 80 MG BEDTIME PO Ferrous Sulfate (FERROUS SULFATE) 325 MG BID PO Gabapentin (NEURONTIN) 300 MG BEDTIME PO Gabapentin (NEURONTIN) 100 MG BEDTIME PO (DC) Ursodiol (ActigalL) 300 MG BID PO Docusate Sodium (COLACE) 100 MG DAILY PO Acetaminophen (TYLENOL) 650 MG Q4H PRN PRN PO Enoxaparin Sodium (lovENOX) 40 MG DAILY 1700 SUB Q Metoprolol Tartrate (LOPRESSOR) 25 MG DAILY PO Insulin Human Lispro (HUMALOG) 0 AC HS SUBQ Insulin Human Lispro (HUMALOG) 10 UNIT AC DIN MARR BQ Hydralazine HCl (APRESOLINE) 10 MG Q6H PRN PRN I V Ondansetron HCl (ZOFRAN) 4 MG Q4H PRN PRN IV Dietitian nutrition assessment The data set between the solid lines has been im ported from the dietitian's assessment. BMI Calculated: 29.0 Nutrition related diagnosis: Nutrition diagnosis details: Nutrition problem: Nutrition etiology: Nutrition signs and symptoms: Nutrition prescription: Dietitian name: Assessment completed: Physical Exam General appearance: alert, awake, oriented, no a cute distress, pleasant, conversational, mental status normal, no respira tory distress Head/eyes: atraumatic, PERRLA Neck: full range of motion, non-tender Cardiovascular: normal capillary refill, regular rate rhythm Abdomen: soft Extremities: moves all (left leg wound/ external fix) Neuro/METAL WELDER: alert Results Findings/data: Laboratory Tests: 02/16 02/16 02/15 02/15 02/15 0941 0435 1959 1606 1159 Chemistry POC Glucose (70 - 110 MG/DL) 249 H 201 H 151 H 207 H Toxicology Vancomycin Trough (10.0 - 20.0 mcg/mL) 34.1 *H Diagnosis, Assessment Plan Free text A P: Assessment/Plan Daily Plan 02/16/2021 Patient assessed. Pain is contolled with current pain medical management. Continue IV antibiotics per ID. Plan 1. Acute complex pain syndrome 2/2 left leg oste omilitis -Dilaudid 0.5mg IV Q4H PRN for pain 7-10, secon d line -oxycodone 10/325 q4H PRN for pain 7-10 first l ine -Tylenol 650 mg PO Q6h for pain 1-3 2. Neuropathic pain -gabapentin 300mg PO Bedtime -cymbalta 30mg twice a day 3. Muscle spasm flexeril 5mg po TID 4. Bowel Regimen - colace -continue pain regimen as above -Monitor for S/E such as AMS , Lethargy/sedation, changes in respiratory function -Continue BP parameters -[facility]( Acute Pain services) will continue to foll ow -please call pain management for any pain-relate d concerns or questions Goal: Daily pain control to improve function and /or quality of life ([x]) Pain control until condition naturally res olves ([x]) Inpatient pain control ([x]) Improved sleep cycle ([x]) all narcotics medications will be adjusted according to the patient's medical condition during the hospital stay Alll diagnostic images/lab and medical records d uring the course of this admission as well as ASSISTANT CHIEF TRAIN DISPATCHER records reviewed Risk versus benefit of opiate medications: All r isk and benefit were reviewed with the patient and family members, risk not limited to respiratory depression, accidental overdose, risk of fall, altered menta l status, constipation, dependency, addiction, withdrawn, sudden . Plan discussed with: The pain plan of ca re has been discussed with the patient and the nursing staff. Patient is in agr eement with the following plan of care and wishes to proceed. Quest ions and concerns have been answered to the patient' s satisfaction. Patient has verbalized understan iqra. Plan discussed with: patient Electronically Signed by Emy Mayes LINK CUTTER on 0 02/16/22 at 1450 RPT #:[id number] END OF REPORT 2022-02-16 [facility] 10:19:00-00:00 [facility] Hospitalist Progress Note REPORT#:[id number] REPORT STATUS: Signed DATE:02/16/22 TIME: 1019 PATIENT: PEDRO MCGREGOR UNIT #: [id number] ROOM/BED: [place] [address] : 54 AGE: 66 SEX: M ATTEND: Jean-Paul Ward od, MD ADM AUTHOR: Lexa Samson LINK CUTTER * ALL edits or amendments must be made on the Material Mix/computer document * Lexa Samson 02/16/22 1019: Subjective Chief complaint: He is NPO for Procedure. Tolerating wound care. His Breathing is stable. LE pain is controlled with meds. No CP, fever, chills. BP and HR stable. Review of Systems Constitutional: Reports: fatigue, generalized weakness. Allergy/Immun: Denies: hives, itching, rhinorrhea. ENT: Denies: earache, sinus problem, sore throat, thr oat swelling. Respiratory: Denies: GIBBS (dyspnea on exer tion), non productive cough, parox nocturnal dyspnea , pleuritic pain, pneumonia. Cardiovascular: Denies: GIBBS (dyspnea on exertion), edema, palpit ations. GI: Denies: constipation, GERD, hiatal hernia, nause a. : Denies: frequency, penile lesion, testicular blake n, testicular swelling. Heme: Denies: bleeding, bruising. Neuro: Denies: bowel dysfunction, dizziness, lightheade d, seizure, slurred speech. Objective General VS/I O: Vital Signs: Date Time Temp Pulse Resp B/P B/P Pulse O2 O2 F low FiO2 Mean Ox Delivery Rate 02/16 0802 36.8 98 13 94/70 0.0 91 02/16 0445 36.8 88 18 152/80 104.4 97 Room air 02/15 2325 36.6 89 18 117/70 85.6 97 Room air 02/15 2004 36.5 57 18 107/55 0.0 96 Room air 02/15 1607 36.6 66 14 115/68 0.0 98 Room air 02/15 1200 36.6 76 14 101/58 0.0 98 Room air 24 hour I O ending at 0700: 02/16 0700 02/15 1900 Intake Total 480 251.00 Output Total 1175 2050 Balance -695 -1799.00 Intake, IV 251.00 Intake, Oral 480 Output, Urine 1175 0 PATIENT WEIGHT: Weight (lb): 231 Weight (oz): 11.29 Weight (kg): 105.100 Medications: Active Meds + DC'd Last 24 Hrs Hydromorphone HCl (DILAUDID) 0.5 MG Q4H PRN PRN IV Oxycodone/Acetaminophen (PERCOCET 5/325MG TAB) 2 TAB Q4H PRN PRN PO Vancomycin HCl (VANCOMYCIN HCL) 1,250 MG Q12H IV Sodium Chloride (SODIUM CHLORIDE 0.9%) 250 ML Ceftriaxone Sodium (ROCEPHIN) 2,000 MG Q24H IV Sodium Chloride (SODIUM CHLORIDE) 20 ML Miscellaneous Information (VANCOMYCIN PHARMACY T O DOSE) 1 EACH ASDIR IV (CKD) Sterile Water (WATER FOR IRRIGATION) DRESSING CH SHERICE ASDIR PRN IRR Glucagon (GLUCAGON) 1 MG ASDIR PRN IM Citalopram Hydrobromide (CeleXA) 20 MG DAILY PO Duloxetine HCl (CYMBALTA) 30 MG DAILY PO Furosemide (LASIX) 40 MG DAILY PO Lactulose (LACTULOSE) 20 GM BID PO Tamsulosin HCl (Flomax 0.4 mg) 0.4 MG DAILY PO Aspirin (ASPIRIN) 81 MG C BK PO Insulin Human Lispro (HUMALOG) 10 UNIT AC BK GRACE SUBQ Pantoprazole (PROTONIX) 40 MG DAILY 0600 PO Atorvastatin Calcium (LIPITOR) 80 MG BEDTIME PO Ferrous Sulfate (FERROUS SULFATE) 325 MG BID PO Gabapentin (NEURONTIN) 300 MG BEDTIME PO Gabapentin (NEURONTIN) 100 MG BEDTIME PO (DC) Ursodiol (ActigalL) 300 MG BID PO Docusate Sodium (COLACE) 100 MG DAILY PO Acetaminophen (TYLENOL) 650 MG Q4H PRN PRN PO Enoxaparin Sodium (lovENOX) 40 MG DAILY 1700 SUB Q Metoprolol Tartrate (LOPRESSOR) 25 MG DAILY PO Insulin Human Lispro (HUMALOG) 0 AC HS SUBQ Insulin Human Lispro (HUMALOG) 10 UNIT AC DIN MARR BQ Hydralazine HCl (APRESOLINE) 10 MG Q6H PRN PRN I V Ondansetron HCl (ZOFRAN) 4 MG Q4H PRN PRN IV Dietitian nutrition assessment The data set between the solid lines has been im ported from the dietitian's assessment. BMI Calculated: 29.0 Nutrition related diagnosis: Nutrition diagnosis details: Nutrition problem: Nutrition etiology: Nutrition signs and symptoms: Nutrition prescription: Dietitian name: Assessment completed: Physical Exam General appearance: alert, awake, oriented Head/Eyes: atraumatic, normocephalic, PERRLA Neck: full range of motion, normal thyroid, supp le/no meningismus Cardiovascular: normal capillary refill, normal heart sounds, regular rate rhythm Respiratory: aerating well, symmetric expansion, no distress Abdomen: normal bowel sounds, soft Genitourinary: no flank pain, no urinary cathete r Extremities: no calf tenderness, no clubbing, no cyanosis Musculoskeletal: no muscle spasm Neuro/METAL WELDER: alert, oriented X 3, CNII-XII intact Psychiatry: normal affect, normal mood Results Findings/Data: Laboratory Tests 02/16 02/15 02/15 02/15 0941 1959 1606 1159 Chemistry POC Glucose (70 - 110 MG/DL) 249 H 201 H 151 H 207 H Laboratory Tests 02/16 0435 Toxicology Vancomycin Trough (10.0 - 20.0 mcg/mL) 34.1 *H Results: labs reviewed, vital signs reviewed, vi maida signs stable, current med profile rev'd Treatment Prophylaxis Treatment Prophylaxis Oxygen: room air Diagnosis, Assessment Plan Hospital course to date: ASSESSMENT AND PLAN: - Recurrent left foot osteomyelitis. - Left foot pain, status post recent procedure. - Leukocytosis. - Hypokalemia-replaced - Hypomagnesemia-replaced. - Recently treated for bacteremia Enterococcal f aecalis. - History of hypertension. - History of hyperlipidemia. - History of depression, mood disorder. - History of diabetes type 2. - History of diabetic foot ulcer, nonhealing. - History of liver disease. PLAN: CVN1. NPO for Procedure. Continue to monitor blood pressure and heart rat e. ID following for OM. Pain medication. Antiemetics. Follow labs and replace as needed. SCD for DVT prophylaxis. Continue home medication. Glycemic control, Accu-Cheks, sliding scale and diabetic diet. Monitor. Code status: full code Plan discussed with: patient, admitting physicia n, consultants, nurse Chelo Ward 02/16/22 1807: Attestations Physician Attestation Agree w/findings plan: Patient seen and examined, I agree with the findings and plans as documented by Lexa Samson NP Electronically Signed by Lexa Samson NP on 06/05 at 1021 Electronically Signed by Chelo Ward MD on 0 02/16/22 at 1819 RPT #:[id number] END OF REPORT 2022-02-15 [facility] 20:06:00-00:00 [facility] Podiatry Progress Note REPORT#:[id number] REPORT STATUS: Signed DATE:02/15/22 TIME: 2005 PATIENT: PEDRO MCGREGOR UNIT #: [id number] ROOM/BED: [place] [address] : 54 AGE: 66 SEX: M ATTEND: Jean-Paul Ward od, MD ADM AUTHOR: Faby Wharton DPM * ALL edits or amendments must be made on the Material Mix/computer document * Subjective Chief complaint: foot infection Objective General VS: Last Documented: Result Date Time Pulse Ox 96 02/15 2003 B/P 107/55 02/15 2003 B/P Mean 0.0 02/15 2003 O2 Delivery Room air 02/15 2003 Temp 36.5 02/15 2003 Pulse 57 02/15 2003 Resp 18 02/15 2003 O2 Flow Rate 2 02/12 0945 PATIENT WEIGHT: Weight (lb): 231 Weight (oz): 11.29 Weight (kg): 105.100 Medications: Active Meds + DC'd Last 24 Hrs Hydromorphone HCl (DILAUDID) 0.5 MG Q4H PRN PRN IV Oxycodone/Acetaminophen (PERCOCET 5/325MG TAB) 2 TAB Q4H PRN PRN PO Vancomycin HCl (VANCOMYCIN HCL) 1,250 MG Q12H IV Sodium Chloride (SODIUM CHLORIDE 0.9%) 250 ML Ceftriaxone Sodium (ROCEPHIN) 2,000 MG Q24H IV Sodium Chloride (SODIUM CHLORIDE) 20 ML Miscellaneous Information (VANCOMYCIN PHARMACY T O DOSE) 1 EACH ASDIR IV (CKD) Sterile Water (WATER FOR IRRIGATION) DRESSING CH SHERICE ASDIR PRN IRR Glucagon (GLUCAGON) 1 MG ASDIR PRN IM Citalopram Hydrobromide (CeleXA) 20 MG DAILY PO Duloxetine HCl (CYMBALTA) 30 MG DAILY PO Furosemide (LASIX) 40 MG DAILY PO Lactulose (LACTULOSE) 20 GM BID PO Tamsulosin HCl (Flomax 0.4 mg) 0.4 MG DAILY PO Aspirin (ASPIRIN) 81 MG C BK PO Insulin Human Lispro (HUMALOG) 10 UNIT AC BK GRACE SUBQ Pantoprazole (PROTONIX) 40 MG DAILY 0600 PO Atorvastatin Calcium (LIPITOR) 80 MG BEDTIME PO Ferrous Sulfate (FERROUS SULFATE) 325 MG BID PO Gabapentin (NEURONTIN) 300 MG BEDTIME PO Gabapentin (NEURONTIN) 100 MG BEDTIME PO (DC) Ursodiol (ActigalL) 300 MG BID PO Docusate Sodium (COLACE) 100 MG DAILY PO Acetaminophen (TYLENOL) 650 MG Q4H PRN PRN PO Enoxaparin Sodium (lovENOX) 40 MG DAILY 1700 SUB Q Metoprolol Tartrate (LOPRESSOR) 25 MG DAILY PO Insulin Human Lispro (HUMALOG) 0 AC HS SUBQ Insulin Human Lispro (HUMALOG) 10 UNIT AC DIN MARR BQ Hydralazine HCl (APRESOLINE) 10 MG Q6H PRN PRN I V Ondansetron HCl (ZOFRAN) 4 MG Q4H PRN PRN IV I O: 24 hour I O ending at 0700: 01/03 0700 01/02 1900 Intake Total 730.00 800 Output Total 1400 Balance 730.00 -600 Intake, IV 250.00 Intake, Oral 480 800 Output, Urine 1400 Dietitian nutrition assessment The data set between the solid lines has been im ported from the dietitian's assessment. BMI Calculated: 29.0 Nutrition related diagnosis: Nutrition diagnosis details: Nutrition problem: Nutrition etiology: Nutrition signs and symptoms: Nutrition prescription: Dietitian name: Assessment completed: Physical Exam Wound/incision: Location: Left foot DP and PT pulses 1/4 barely palpable. Light touch and protective sensation greatly de creased left foot. Extensive wound from the medial aspect of the l eft hindfoot to the medial aspect of the left midfoot. Wide open with thick purulent drainage very mal odorous. Ulcer plantar left first metatarsal head is sup erficial. Erythema of the left foot. No crepitation External fixator is in place. Foot is underneath the leg.. LE vascular pulse assess: 1+ L posterior tibialis, 1+ L dorsalis pedis Results Findings/Data: Laboratory Tests: 02/15 02/15 02/15 02/14 1606 1159 0756 2205 Chemistry POC Glucose (70 - 110 MG/DL) 151 H 207 H 217 H 196 H Results: labs reviewed Diagnosis, Assessment Plan Free Text A P: External fixator left lower extremity Cellulitis and draining wound medial left foot Diabetes with peripheral neuropathy Superficial ulcer left forefoot culture left foot: E coli, Coag Pos staph IV antibiotics X-rays noted within normal limits daily pulse lavage He is on oral gabapentin Electronically Signed by Faby Wharton DPM on 07/05 at 1929 RPT #:[id number] END OF REPORT 2022-02-15 [facility] 18:18:00-00:00 [facility] ([facility]) Infectious Dis. Progress Note REPORT#:[id number] REPORT STATUS: Signed DATE:02/15/22 TIME: 1817 PATIENT: PEDRO MCGREGOR UNIT #: [id number] ROOM/BED: [place] [address] : 54 AGE: 66 SEX: M ATTEND: Jean-Paul Ward od, MD ADM AUTHOR: Ronak Hein MD * ALL edits or amendments must be made on the Material Mix/computer document * Subjective Chief complaint: Follow-up on left foot osteomyelitis HPI: Pt is a 66 yr old male with left foot osteomyeli tis. Interval history: Patient denies acute or new co mplaints today. Objective General VS/I O: Vital Signs Date Temp Pulse Resp B/P B/P Mean Pulse Ox FiO2 /-02/15 97.5-99.3 66-97 14-18 101-128/58-69 0.0 91-98 Last Documented: Result Date Time Pulse Ox 98 02/15 1607 B/P 115/68 02/15 1607 B/P Mean 0.0 02/15 1607 O2 Delivery Room air 02/15 1607 Temp 97.9 02/15 1607 Pulse 66 02/15 1607 Resp 14 02/15 1607 O2 Flow Rate 2 02/12 0945 Vital Signs: Date Time Temp Pulse Resp B/P B/P Pulse O2 O2 F low FiO2 Mean Ox Delivery Rate 02/15 1607 97.9 66 14 115/68 0.0 98 Room air 02/15 1200 97.9 76 14 101/58 0.0 98 Room air 02/15 0933 97.9 97 14 113/61 0.0 98 Room air / 0430 97.5 78 18 120/69 0.0 91 / 0003 99.3 85 18 128/65 0.0 97 / 2111 98.8 81 18 118/64 0.0 94 24 hour I O ending at 0700: 02/15 0700 02/14 1900 Intake Total 730.00 800 Output Total 1400 Balance 730.00 -600 Intake, IV 250.00 Intake, Oral 480 800 Output, Urine 1400 PATIENT WEIGHT: Weight (lb): 231 Weight (oz): 11.29 Weight (kg): 105.100 Physical Exam General appearance: alert, awake, no acute distr ess Wound/incision: Location: left foot wound +external fixator in place Cardiovascular: regular rate rhythm, no murmur Respiratory: clear to auscultation, no distress Abdomen: non-tender, soft, no distention Extremities: no cyanosis, no edema, left lower extremity in an external fixator Neuro/METAL WELDER: alert, oriented X 3 Skin: dry, intact, no rash Diagnosis, Assessment Plan Free Text A P: Assessment: 1. Osteomyelitis and septic arthritis of the lef t foot and ankle -wound cx E. 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 coli and E faecalis) from December. -Based on recent cultures from this admission, a ntibiotic therapy switched to ceftriaxone and vancomycin on 02/14/2022. -Would continue same for now. -Follow identification and susceptibilities on t he unidentified gram-negative prashant and adjust antibiotics further as needed. -Plan for debridement tomorrow noted; recommend for cx to be sent. Electronically Signed by Ronak Hein MD on 05/05 at 1821 RPT #:[id number] END OF REPORT 2022-02-15 [facility] 11:48:00-00:00 [facility] ([facility]) Pain Management Progress Note REPORT#:[id number] REPORT STATUS: Signed DATE:02/15/22 TIME: 1148 PATIENT: PEDRO MCGREGOR UNIT #: [id number] ROOM[address]: [address] : [address] AGE: 66 SEX: M ATTEND: Jean-Paul Ward od, MD ADM AUTHOR: Emy Mayes NP * ALL edits or amendments must be made on the el [employer]/computer document * Subjective Chief complaint: Foot Wound. Interval History 02/15/2021 Patient chart, note and event reviewed Patient is laying in bed, fully alert, awake hem odynamically stable Pain is controlled Mood is ok Sleep is ok. Denied insomnia constipation is managed with lactulose and colac e Review of Systems Additional notes: Review was conducted and was negative except for what's noted in the HPI and Medical History. The following systems were revi ewed: Constitutional, cardiovascular, respiratory, gastrointes tinal, genitourinary, musculoskeletal, neurologic, psychiatric, endocrinological, and h ematological. Objective General VS/I O: Vital Signs Date Temp Pulse Resp B/P B/P Mean Pulse Ox FiO 2 02/14-02/15 97.5-99.3 78-97 14-18 113-128/59-69 0.0 91-98 Last Documented: Result Date Time Pulse Ox 98 02/16 932 B/P 113/61 02/16 932 B/P Mean 0.0 02/16 932 O2 Delivery Room air 02/16 932 Temp 97.9 02/16 932 Pulse 97 02/16 932 Resp 14 02/16 932 O2 Flow Rate 2 02/12 0945 24 hour I O ending at 0700: 02/15 0700 02/14 1900 Intake Total 730.00 800 Output Total 1400 Balance 730.00 -600 Intake, IV 250.00 Intake, Oral 480 800 Output, Urine 1400 PATIENT WEIGHT: Weight (lb): 231 Weight (oz): 11.29 Weight (kg): 105.100 Medications: Active Meds + DC'd Last 24 Hrs Vancomycin HCl (VANCOMYCIN HCL) 1,250 MG Q12H IV Sodium Chloride (SODIUM CHLORIDE 0.9%) 250 ML Ceftriaxone Sodium (ROCEPHIN) 2,000 MG Q24H IV Sodium Chloride (SODIUM CHLORIDE) 20 ML Vancomycin HCl (VANCOMYCIN HCL) 2,000 MG ONCE ON E IV (DC) Sodium Chloride (SODIUM CHLORIDE 0.9%) 500 ML Miscellaneous Information (VANCOMYCIN PHARMACY T O DOSE) 1 EACH ASDIR IV (CKD) Sterile Water (WATER FOR IRRIGATION) DRESSING CH SHERICE ASDIR PRN IRR Glucagon (GLUCAGON) 1 MG ASDIR PRN IM Piperacillin Sod/Tazobactam Sod (ZOSYN 3.375GM) 3.375 GM Q8H IV (DC) Sodium Chloride (SODIUM CHLORIDE 0.9% 100 ML) 1 00 ML Citalopram Hydrobromide (CeleXA) 20 MG DAILY PO Duloxetine HCl (CYMBALTA) 30 MG DAILY PO Furosemide (LASIX) 40 MG DAILY PO Lactulose (LACTULOSE) 20 GM BID PO Tamsulosin HCl (Flomax 0.4 mg) 0.4 MG DAILY PO Aspirin (ASPIRIN) 81 MG C BK PO Insulin Human Lispro (HUMALOG) 10 UNIT AC BK GRACE SUBQ Pantoprazole (PROTONIX) 40 MG DAILY 0600 PO Atorvastatin Calcium (LIPITOR) 80 MG BEDTIME PO Ferrous Sulfate (FERROUS SULFATE) 325 MG BID PO Gabapentin (NEURONTIN) 300 MG BEDTIME PO Gabapentin (NEURONTIN) 100 MG BEDTIME PO Ursodiol (ActigalL) 300 MG BID PO Docusate Sodium (COLACE) 100 MG DAILY PO Acetaminophen (TYLENOL) 650 MG Q4H PRN PRN PO Hydromorphone HCl (DILAUDID) 0.5 MG Q4H PRN PRN IV (DC) Oxycodone/Acetaminophen (PERCOCET 5/325MG TAB) 2 TAB Q4H PRN PRN PO (DC) Enoxaparin Sodium (lovENOX) 40 MG DAILY 1700 SUB Q Metoprolol Tartrate (LOPRESSOR) 25 MG DAILY PO Insulin Human Lispro (HUMALOG) 0 AC HS SUBQ Insulin Human Lispro (HUMALOG) 10 UNIT AC DIN MARR BQ Hydralazine HCl (APRESOLINE) 10 MG Q6H PRN PRN I V Ondansetron HCl (ZOFRAN) 4 MG Q4H PRN PRN IV Tramadol HCl (ULTRAM) 100 MG Q4H PRN PRN PO (DC) Dietitian nutrition assessment The data set between the solid lines has been im ported from the dietitian's assessment. BMI Calculated: 29.0 Nutrition related diagnosis: Nutrition diagnosis details: Nutrition problem: Nutrition etiology: Nutrition signs and symptoms: Nutrition prescription: Dietitian name: Assessment completed: Physical Exam General appearance: alert, awake, oriented, no a cute distress, pleasant, conversational, mental status normal, no respira tory distress Head/eyes: atraumatic, PERRLA Neck: full range of motion, non-tender Cardiovascular: normal capillary refill, regular rate rhythm Abdomen: soft Extremities: moves all (left leg wound/ external fix) Neuro/METAL WELDER: alert Results Findings/data: Laboratory Tests: 02/15 02/14 02/14 0756 2205 1642 Chemistry POC Glucose (70 - 110 MG/DL) 217 H 196 H 166 H Diagnosis, Assessment Plan Free text A P: Assessment/Plan Daily Plan 02/15/2021 Patient assessed. Pain is contolled with current pain medical management Plan 1. Acute complex pain syndrome 2/2 left leg oste omilitis -Dilaudid 0.5mg IV Q4H PRN for pain 7-10, [place] line -oxycodone 10/325 q4H PRN for pain 7-10 first l ine -Tylenol 650 mg PO Q6h for pain 1-3 2. Neuropathic pain -gabapentin 300mg PO Bedtime -cymbalta 30mg twice a day 3. Muscle spasm flexeril 5mg po TID 4. Bowel Regimen - colace -continue pain regimen as above -Monitor for S/E such as AMS , Lethargy/sedation, changes in respiratory function -Continue BP parameters -APS( Acute Pain services) will continue to foll ow -please call pain management for any pain-relate d concerns or questions Goal: Daily pain control to improve function and /or quality of life ([x]) Pain control until condition naturally res olves ([x]) Inpatient pain control ([x]) Improved sleep cycle ([x]) all narcotics medications will be adjusted according to the patient's medical condition during the hospital stay Alll diagnostic images/lab and medical records d uring the course of this admission as well as ASSISTANT CHIEF TRAIN DISPATCHER records reviewed Risk versus benefit of opiate medications: All r isk and benefit were reviewed with the patient and family members, risk not limited to respiratory depression, accidental overdose, risk of fall, altered menta l status, constipation, dependency, addiction, withdrawn, sudden . Plan discussed with: The pain plan of ca re has been discussed with the patient and the nursing staff. Patient is in agr eement with the following plan of care and wishes to proceed. Quest ions and concerns have been answered to the patient' s satisfaction. Patient has verbalized understan iqra. Plan discussed with: patient Electronically Signed by Emy Mayes NP on 0 02/15/22 at 1449 RPT #:[id number] END OF REPORT 2022-02-15 [facility] 11:20:00-00:00 [facility] ([facility]) Pharmacy Prog.Note-Vancomycin REPORT#:[id number] REPORT STATUS: Signed DATE:02/15/22 TIME: 1120 PATIENT: PEDRO MCGREGOR UNIT #: [id number] ROOM/BED: [place] [address] : 54 AGE: 66 SEX: M ATTEND: Jean-Paul Ward od, MD ADM AUTHOR: Ramin Angela [facility] * ALL edits or amendments must be made on the [email or web address] document * See Addendum Vancomycin Vancomycin Medication Therapy Goal: AUC 400-600 mcg*hr/mL Indication for treatment: Osteomyelitis Day of therapy: 2 VS and I/O: Vital Signs Date Temp Pulse Resp B/P B/P Mean Pulse Ox FiO2 02/12-02/15 36.4-37.4 63-102 12-18 97-165/53-88 0.0-83.8 91-100 72 hours ending at 0700 02/15 0700 02/14 1900 02/14 0700 02/13 1900 02/12 0700 1900 Intake 730.00 800 510.00 1000.00 Total Output 1400 2024 900 1800 Total Balance 730.00 -600 -2025 -390.00 -800.00 Intake, IV 250.00 110.00 200.00 Intake, 480 800 400 800 Oral Number 0 Bowel Movements Output, 1400 2024 900 1800 Urine Patient 105.1 kg Weight Weight Bed scale Measuremen t Method 72 Hour I O Total 02/15 0700 02/14 0700 02/13 0700 Intake Total 1530.00 1510.00 Output Total 1400 2024 2700 Balance 130.00 -2025 -1190.00 Labs: Microbiology: 02/12 2100 FOOT: Wound Culture - RES ESCHERICHIA COLI STAPH AUREUS,METHICILLIN RESIS Drug admin history: Lab Lab Level SCr Info Software Integration Developer Med Dose Inte raction/Dialysis Date/Time Date/Time Notes: Treatment plan: consult, cont current regimen/do se Regimen: Patient is a 66-year-old white male with a PMHx of obesity, HLD, PVD, HTN, DM type 2, and history of E. fa ecalis bacteremia in November 2021 s/p broad spectrum antibiotics. Previously admi tted to [facility] with the left foot/ankle OM and septic arthritis. The patient underwent d ebridement and PICC line placements at that time, and external fixator pl acement on 01/06/2022. He was discharged to the nursing [facility] to continue Zosyn until 02/11 for prior isolates (E. coli and E. faecalis) from December. At the [facility] he was complaining of pain, became hypotensive and tachycardic, and so he is no w readmitted. Patient reports minimal drainage from the external fixator pin sites. Pharmacy has bee n consulted by ID to dose vancomycin. Consulting Provider: Ronak Hein MD Indication: OM Goal AUC 400-600 mcg*hr/mL 02/15 A/P: * Tmax 37.4, labs from 02/11 WBC 12.4, HDS, on R A * Renal: labs from 02/11 BUN/SCr 8/1.0, estCrCL 94mL/min (adjBW), UOP 1400 mL/ 24hr * Micro: 02/09 BCx - NGTD, 01/31 MRSA sc reen - NEGATIVE, 02/12 WCx - E. coli + MRSA POSITIVE * Imagin/28 foot XR: Osteomyelitis cannot b e excluded * Day 2. Loaded with 2000mg IV vanc on 02/14 and was initiated on 1250mg ( 12mg/ kg) IV vancomycin q12h. * Plan: Peak ordered for 02/16 @0330 and trough ordered 02/16 @1200 to assess clearance. AUC goal 400-600. Pharmacy will continue to follow and monitor. Th ank you Dr. Hein for this consult. Electronically Signed by Ramin Angela [facility] on 02/15 at 1141 Addendum 1: 02/16/22 1346 by Luigi Cornelius [facility] afebrile, no recent labs, UOP 3225 ml/24hrs. No udpated micro/imaging. Day 3. On 1250 mg vancomycin iv q12h. Peak and trough y ielded supratherapeutic AUC value of 702 mcg*hr/ml. Discontinue doses for no w. Allow 9 hours for drug to clear as estimated half-life is 11 hrs. Will res ume lower dose tonight of 1gm vancomycin iv q12h. Estimated AUC for new regime n 560 mcg*hr/ml. Will check SCr in AM. Electronically Signed by Luigi Cornelius [facility] on 02/16 at 1357 RPT #:[id number] END OF REPORT 2022-02-15 [facility] 10:45:00-00:00 [facility] ([facility]) Hospitalist Progress Note REPORT#:[id number] REPORT STATUS: Signed DATE:02/15/22 TIME: 1045 PATIENT: PEDRO MCGREGOR UNIT #: [id number] ROOM/BED: [place] [address] : 54 AGE: 66 SEX: M ATTEND: Jean-Paul Ward od, MD ADM AUTHOR: Lexa Samson LINK CUTTER * ALL edits or amendments must be made on the Material Mix/computer document * Lexa Samson 02/15/22 1045: Subjective Chief complaint: He is waiting for Procedure. Tolerating wound care. His Breathing is stable. LE pain is controlled with meds. No CP, fever, chills. BP and HR stable. Review of Systems Constitutional: Reports: fatigue, generalized weakness. Allergy/Immun: Denies: anaphylaxis, hives, itching. ENT: Denies: earache, mouth pain, nasal congestion, s inus problem, sore throat. Respiratory: Denies: hemoptysis, parox nocturnal dyspnea, ple urisy, pneumonia. Cardiovascular: Denies: GIBBS (dyspnea on exertion), edema, palpit ations. GI: Denies: constipation, dysphagia, hematemesis, hi atal hernia. : Denies: frequency, nocturia, penile lesion, test icular swelling. Heme: Denies: bleeding, bruising. Neuro: Denies: bowel dysfunction, focal weakness, gait problem, numbness, slurred speech. Objective General VS/I O: Vital Signs: Date Time Temp Pulse Resp B/P B/P Pulse O2 O2 F low FiO2 Mean Ox Delivery Rate 02/15 0933 36.6 97 14 113/61 0.0 98 Room air 02/15 0430 36.4 78 18 120/69 0.0 91 / 0003 37.4 85 18 128/65 0.0 97 02/14 2111 37.1 81 18 118/64 0.0 94 / 1644 36.6 79 14 114/59 0.0 98 Room air 02/14 1127 36.6 63 14 110/63 0.0 98 Room air 24 hour I O ending at 0700: 02/15 0700 02/14 1900 Intake Total 730.00 800 Output Total 1400 Balance 730.00 -600 Intake, IV 250.00 Intake, Oral 480 800 Output, Urine 1400 PATIENT WEIGHT: Weight (lb): 231 Weight (oz): 11.29 Weight (kg): 105.100 Medications: Active Meds + DC'd Last 24 Hrs Vancomycin HCl (VANCOMYCIN HCL) 1,250 MG Q12H IV Sodium Chloride (SODIUM CHLORIDE 0.9%) 250 ML Ceftriaxone Sodium (ROCEPHIN) 2,000 MG Q24H IV Sodium Chloride (SODIUM CHLORIDE) 20 ML Vancomycin HCl (VANCOMYCIN HCL) 2,000 MG ONCE ON E IV (DC) Sodium Chloride (SODIUM CHLORIDE 0.9%) 500 ML Miscellaneous Information (VANCOMYCIN PHARMACY T O DOSE) 1 EACH ASDIR IV (CKD) Sterile Water (WATER FOR IRRIGATION) DRESSING CH SHERICE ASDIR PRN IRR Glucagon (GLUCAGON) 1 MG ASDIR PRN IM Piperacillin Sod/Tazobactam Sod (ZOSYN 3.375GM) 3.375 GM Q8H IV (DC) Sodium Chloride (SODIUM CHLORIDE 0.9% 100 ML) 100 ML Citalopram Hydrobromide (CeleXA) 20 MG DAILY PO Duloxetine HCl (CYMBALTA) 30 MG DAILY PO Furosemide (LASIX) 40 MG DAILY PO Lactulose (LACTULOSE) 20 GM BID PO Tamsulosin HCl (Flomax 0.4 mg) 0.4 MG DAILY PO Aspirin (ASPIRIN) 81 MG C BK PO Insulin Human Lispro (HUMALOG) 10 UNIT AC BK GRACE SUBQ Pantoprazole (PROTONIX) 40 MG DAILY 0600 PO Atorvastatin Calcium (LIPITOR) 80 MG BEDTIME PO Ferrous Sulfate (FERROUS SULFATE) 325 MG BID PO Gabapentin (NEURONTIN) 300 MG BEDTIME PO Gabapentin (NEURONTIN) 100 MG BEDTIME PO Ursodiol (ActigalL) 300 MG BID PO Docusate Sodium (COLACE) 100 MG DAILY PO Acetaminophen (TYLENOL) 650 MG Q4H PRN PRN PO Hydromorphone HCl (DILAUDID) 0.5 MG Q4H PRN PRN IV (DC) Oxycodone/Acetaminophen (PERCOCET 5/325MG TAB) 2 TAB Q4H PRN PRN PO (DC) Enoxaparin Sodium (lovENOX) 40 MG DAILY 1700 SUB Q Metoprolol Tartrate (LOPRESSOR) 25 MG DAILY PO Insulin Human Lispro (HUMALOG) 0 AC HS SUBQ Insulin Human Lispro (HUMALOG) 10 UNIT AC DIN MARR BQ Hydralazine HCl (APRESOLINE) 10 MG Q6H PRN PRN I V Ondansetron HCl (ZOFRAN) 4 MG Q4H PRN PRN IV Tramadol HCl (ULTRAM) 100 MG Q4H PRN PRN PO (DC) Dietitian nutrition assessment The data set between the solid lines has been im ported from the dietitian's assessment. BMI Calculated: 29.0 Nutrition related diagnosis: Nutrition diagnosis details: Nutrition problem: Nutrition etiology: Nutrition signs and symptoms: Nutrition prescription: Dietitian name: Assessment completed: Physical Exam General appearance: alert, awake, oriented Head/Eyes: atraumatic, normocephalic, PERRLA Neck: full range of motion, normal thyroid, supp le/no meningismus Cardiovascular: normal capillary refill, normal heart sounds, regular rate rhythm Respiratory: aerating well, symmetric expansion, no distress Abdomen: normal bowel sounds, soft Genitourinary: no flank pain, no urinary cathete r Extremities: no calf tenderness, no clubbing, no cyanosis Musculoskeletal: no muscle spasm Neuro/METAL WELDER: alert, oriented X 3, CNII-XII intact Psychiatry: normal affect, normal mood Results Findings/Data: Laboratory Tests 02/15 02/14 02/14 02/14 0756 2205 1642 1126 Chemistry POC Glucose (70 - 110 MG/DL) 217 H 196 H 166 H 275 H Results: labs reviewed, vital signs reviewed, vi maida signs stable, current med profile rev'd Treatment Prophylaxis Treatment Prophylaxis Oxygen: room air Diagnosis, Assessment Plan Hospital course to date: ASSESSMENT AND PLAN: - Recurrent left foot osteomyelitis. - Left foot pain, status post recent procedure. - Leukocytosis. - Hypokalemia-replaced - Hypomagnesemia-replaced. - Recently treated for bacteremia Enterococcal f aecalis. - History of hypertension. - History of hyperlipidemia. - History of depression, mood disorder. - History of diabetes type 2. - History of diabetic foot ulcer, nonhealing. - History of liver disease. PLAN: CVN1. Will go for Procedure on per Podiatry. Continue to monitor blood pressure and heart rat e. ID following for OM. Pain medication. Antiemetics. Follow labs and replace as needed. SCD for DVT prophylaxis. Continue home medication. Glycemic control, Accu-Cheks, sliding scale and diabetic diet. Monitor. Code status: full code Plan discussed with: patient, admitting physicia n, consultants, nurse Chelo Ward 02/15/22 1656: Attestations Physician Attestation Agree w/findings plan: Patient seen and examined, I agree with the findings and plans as documented by Lexa Samson NP Electronically Signed by Lexa Samson NP on 05/05 at 1046 Electronically Signed by Chelo Ward MD on 0 02/15/22 at 1707 RPT #:[id number] END OF REPORT 2022-02-14 [facility] 15:45:00-00:00 [facility] Podiatry Progress Note REPORT#:[id number] REPORT STATUS: Signed DATE:02/14/22 TIME: 1545 PATIENT: PEDRO MCGREGOR UNIT #: [id number] ROOM/BED: [place] [address] : 54 AGE: 66 SEX: M ATTEND: Jean-Paul Ward od, MD ADM AUTHOR: Alejandro Shah DPM * ALL edits or amendments must be made on the Material Mix/computer document * Subjective Chief complaint: foot infection Patient reports: no constipation, no cough, no f atigue, no headache, no heartburn, no itching Comments: pt with family has done well with lavage so far. no f/c events noted Objective General VS: Last Documented: Result Date Time Pulse Ox 98 02/14 1127 B/P 110/63 02/14 1127 B/P Mean 0.0 02/14 112 O2 Delivery Room air 02/14 112 Temp 36.6 02/14 112 Pulse 63 02/14 1127 Resp 14 02/14 112 O2 Flow Rate 2 02/12 0945 PATIENT WEIGHT: Weight (lb): 231 Weight (oz): 11.29 Weight (kg): 105.100 Medications: Active Meds + DC'd Last 24 Hrs Vancomycin HCl (VANCOMYCIN HCL) 1,250 MG Q12H IV Sodium Chloride (SODIUM CHLORIDE 0.9%) 250 ML Ceftriaxone Sodium (ROCEPHIN) 2,000 MG Q24H IV Sodium Chloride (SODIUM CHLORIDE) 20 ML Vancomycin HCl (VANCOMYCIN HCL) 2,000 MG ONCE ON E IV (DC) Sodium Chloride (SODIUM CHLORIDE 0.9%) 500 ML Miscellaneous Information (VANCOMYCIN PHARMACY T O DOSE) 1 EACH ASDIR IV (CKD) Sterile Water (WATER FOR IRRIGATION) DRESSING CH SHERICE ASDIR PRN IRR Glucagon (GLUCAGON) 1 MG ASDIR PRN IM Piperacillin Sod/Tazobactam Sod (ZOSYN 3.375GM) 3.375 GM Q8H IV (DC) Sodium Chloride (SODIUM CHLORIDE 0.9% 100 ML) 1 00 ML Citalopram Hydrobromide (CeleXA) 20 MG DAILY PO Duloxetine HCl (CYMBALTA) 30 MG DAILY PO Furosemide (LASIX) 40 MG DAILY PO Lactulose (LACTULOSE) 20 GM BID PO Tamsulosin HCl (Flomax 0.4 mg) 0.4 MG DAILY PO Aspirin (ASPIRIN) 81 MG C BK PO Insulin Human Lispro (HUMALOG) 10 UNIT AC BK GRACE SUBQ Pantoprazole (PROTONIX) 40 MG DAILY 0600 PO Atorvastatin Calcium (LIPITOR) 80 MG BEDTIME PO Ferrous Sulfate (FERROUS SULFATE) 325 MG BID PO Gabapentin (NEURONTIN) 300 MG BEDTIME PO Gabapentin (NEURONTIN) 100 MG BEDTIME PO Ursodiol (ActigalL) 300 MG BID PO Docusate Sodium (COLACE) 100 MG DAILY PO Acetaminophen (TYLENOL) 650 MG Q4H PRN PRN PO Hydromorphone HCl (DILAUDID) 0.5 MG Q4H PRN PRN IV Oxycodone/Acetaminophen (PERCOCET 5/325MG TAB) 2 TAB Q4H PRN PRN PO Enoxaparin Sodium (lovENOX) 40 MG DAILY 1700 SUB Q Metoprolol Tartrate (LOPRESSOR) 25 MG DAILY PO Insulin Human Lispro (HUMALOG) 0 AC HS SUBQ Insulin Human Lispro (HUMALOG) 10 UNIT AC DIN MARR BQ Hydralazine HCl (APRESOLINE) 10 MG Q6H PRN PRN I V Ondansetron HCl (ZOFRAN) 4 MG Q4H PRN PRN IV Tramadol HCl (ULTRAM) 100 MG Q4H PRN PRN PO I O: 24 hour I O ending at 0700: /02 0700 / 1900 Intake Total Output Total 2024 Balance -2024 Output, Urine 2024 Dietitian nutrition assessment The data set between the solid lines has been im ported from the dietitian's assessment. BMI Calculated: 29.0 Nutrition related diagnosis: Nutrition diagnosis details: Nutrition problem: Nutrition etiology: Nutrition signs and symptoms: Nutrition prescription: Dietitian name: Assessment completed: Physical Exam General appearance: alert, awake, oriented, plea ravi, mental status normal Wound/incision: Location: Left foot DP and PT pulses 1/4 barely palpable. Light touch and protective sensation greatly de creased left foot. Extensive wound from the medial aspect of the l eft hindfoot to the medial aspect of the left midfoot. Wide open with thick purulent drainage very mal odorous. Ulcer plantar left first metatarsal head is sup erficial. Erythema of the left foot. No crepitation External fixator is in place. Foot is underneath the leg.. LE vascular pulse assess: 1+ L posterior tibialis, 1+ L dorsalis pedis Results Findings/Data: Laboratory Tests: 02/14 02/14 02/13 02/13 1126 0755 1955 1722 Chemistry POC Glucose (70 - 110 MG/DL) 275 H 208 H 106 13 7 H Allergies Allergy Severity Reaction Updated Coded hydrocodone Mild NAUSIATED 01/05/22 Microbiology: 02/12 2100 FOOT: Wound Culture - RES ESCHERICHIA COLI COAG POS STAPHYLOCOCCUS 02/10 1020 NASAL: MRSA DNA Surveillance Screen - COMP 02/09 1449 BLOOD: Blood Culture - COMP Diagnosis, Assessment Plan Free Text A P: External fixator left lower extremity Cellulitis and draining wound medial left foot Diabetes with peripheral neuropathy Superficial ulcer left forefoot culture left foot: E coli, Coag Pos staph IV antibiotics X-rays noted within normal limits daily pulse lavage He is on oral gabapentin per Dr. Wharton, plan for surgery monday Covering for Dr.'s Wharton and linnea Electronically Signed by Alejandro Shah DPM on 0 02/14/22 at 1547 RPT #:[id number] END OF REPORT 2022-02-14 [facility] 13:19:00-00:00 [facility] ([facility]) Pain Management Progress Note REPORT#:[id number] REPORT STATUS: Signed DATE:02/14/22 TIME: 1319 PATIENT: PEDRO MCGREGOR UNIT #: [id number] [place] [facility] : [place] AGE: 66 SEX: M ATTEND: Jean-Paul Ward od, MD ADM AUTHOR: Emy Mayes NP * ALL edits or amendments must be made on the el ectronic/computer document * Subjective Chief complaint: Foot Wound. Interval History 02/14/2021 Patient chart, note and event reviewed Patient is laying in bed, fully alert, awake hem odynamically stable Pain is controlled Mood is ok Sleep is ok. Denied insomnia constipation is managed with lactulose and colac e Review of Systems Additional notes: Review was conducted and was negative except for what's noted in the HPI and Medical History. The following systems were revi ewed: Constitutional, cardiovascular, respiratory, gastrointes tinal, genitourinary, musculoskeletal, neurologic, psychiatric, endocrinological, and h ematological. Objective General VS/I O: Vital Signs Date Temp Pulse Resp B/P B/P Mean Pulse Ox FiO2 02/13-02/14 97.9-98.4 63-82 14-18 104-165/53-67 0.0 94-100 Last Documented: Result Date Time Pulse Ox 98 02/14 1127 B/P 110/63 02/14 1127 B/P Mean 0.0 02/14 1127 O2 Delivery Room air 02/14 1127 Temp 97.9 02/14 1127 Pulse 63 02/14 1127 Resp 14 02/14 1127 O2 Flow Rate 2 02/12 0945 24 hour I O ending at 0700: 02/14 0700 02/13 1900 Intake Total Output Total 2024 Balance -2024 Output, Urine 2024 PATIENT WEIGHT: Weight (lb): 231 Weight (oz): 11.29 Weight (kg): 105.100 Medications: Active Meds + DC'd Last 24 Hrs Vancomycin HCl (VANCOMYCIN HCL) 1,250 MG Q12H IV Sodium Chloride (SODIUM CHLORIDE 0.9%) 250 ML Ceftriaxone Sodium (ROCEPHIN) 2,000 MG Q24H IV Sodium Chloride (SODIUM CHLORIDE) 20 ML Vancomycin HCl (VANCOMYCIN HCL) 2,000 MG ONCE ON E IV Sodium Chloride (SODIUM CHLORIDE 0.9%) 500 ML Miscellaneous Information (VANCOMYCIN PHARMACY T O DOSE) 1 EACH ASDIR IV (CKD) Sterile Water (WATER FOR IRRIGATION) DRESSING CH SHERICE ASDIR PRN IRR Glucagon (GLUCAGON) 1 MG ASDIR PRN IM Piperacillin Sod/Tazobactam Sod (ZOSYN 3.375GM) 3.375 GM Q8H IV (DC) Sodium Chloride (SODIUM CHLORIDE 0.9% 100 ML) 1 00 ML Citalopram Hydrobromide (CeleXA) 20 MG DAILY PO Duloxetine HCl (CYMBALTA) 30 MG DAILY PO Furosemide (LASIX) 40 MG DAILY PO Lactulose (LACTULOSE) 20 GM BID PO Tamsulosin HCl (Flomax 0.4 mg) 0.4 MG DAILY PO Aspirin (ASPIRIN) 81 MG C BK PO Insulin Human Lispro (HUMALOG) 10 UNIT AC BK GRACE SUBQ Pantoprazole (PROTONIX) 40 MG DAILY 0600 PO Atorvastatin Calcium (LIPITOR) 80 MG BEDTIME PO Ferrous Sulfate (FERROUS SULFATE) 325 MG BID PO Gabapentin (NEURONTIN) 300 MG BEDTIME PO Gabapentin (NEURONTIN) 100 MG BEDTIME PO Ursodiol (ActigalL) 300 MG BID PO Docusate Sodium (COLACE) 100 MG DAILY PO Acetaminophen (TYLENOL) 650 MG Q4H PRN PRN PO Hydromorphone HCl (DILAUDID) 0.5 MG Q4H PRN PRN IV Oxycodone/Acetaminophen (PERCOCET 5/325MG TAB) 2 TAB Q4H PRN PRN PO Enoxaparin Sodium (lovENOX) 40 MG DAILY 1700 SUB Q Metoprolol Tartrate (LOPRESSOR) 25 MG DAILY PO Insulin Human Lispro (HUMALOG) 0 AC HS SUBQ Insulin Human Lispro (HUMALOG) 10 UNIT AC DIN MARR BQ Hydralazine HCl (APRESOLINE) 10 MG Q6H PRN PRN I V Ondansetron HCl (ZOFRAN) 4 MG Q4H PRN PRN IV Tramadol HCl (ULTRAM) 100 MG Q4H PRN PRN PO Dietitian nutrition assessment The data set between the solid lines has been im ported from the dietitian's assessment. BMI Calculated: 29.0 Nutrition related diagnosis: Nutrition diagnosis details: Nutrition problem: Nutrition etiology: Nutrition signs and symptoms: Nutrition prescription: Dietitian name: Assessment completed: Physical Exam Head/eyes: atraumatic, PERRLA Neck: full range of motion, non-tender Cardiovascular: normal capillary refill, regular rate rhythm Abdomen: soft Extremities: moves all (left leg wound/ external fix) Neuro/METAL WELDER: alert Diagnosis, Assessment Plan Free text A P: Assessment/Plan Daily Plan 02/14/2021 Patient assessed. Pain is contolled with current pain medical management Plan 1. Acute complex pain syndrome 2/2 left leg oste omilitis -Dilaudid 0.5mg IV Q4H PRN for pain 7-10, secon d line -oxycodone 10/325 q4H PRN for pain 7-10 first l ine -Tylenol 650 mg PO Q6h for pain 1-3 2. Neuropathic pain -gabapentin 100mg daily -cymbalta 30mg twice a day 3. Muscle spasm flexeril 5mg TID 4. Bowel Regimen - colace -continue pain regimen as above -Monitor for S/E such as AMS , Lethargy/sedation, changes in respiratory function -Continue BP parameters -APS( Acute Pain services) will continue to foll ow -please call pain management for any pain-relate d concerns or questions Goal: Daily pain control to improve function and /or quality of life ([x]) Pain control until condition naturally res olves ([x]) Inpatient pain control ([x]) Improved sleep cycle ([x]) all narcotics medications will be adjusted according to the patient's medical condition during the hospital stay Alll diagnostic images/lab and medical records d uring the course of this admission as well as ASSISTANT CHIEF TRAIN DISPATCHER records reviewed Risk versus benefit of opiate medications: All r isk and benefit were reviewed with the patient and family members, risk not limited to respiratory depression, accidental overdose, risk of fall, altered menta l status, constipation, dependency, addiction, withdrawn, sudden . Plan discussed with: The pain plan of ca re has been discussed with the patient and the nursing staff. Patient is in agr eement with the following plan of care and wishes to proceed. Quest ions and concerns have been answered to the patient' s satisfaction. Patient has verbalized understan ding. Plan discussed with: patient Electronically Signed by Emy Mayes LINK CUTTER on 0 02/14/22 at 1432 RPT #:[id number] END OF REPORT 2022-02-14 [facility] 12:24:00-00:00 [facility] ([facility]) Pharmacy Prog.Note-Vancomycin REPORT#:[id number] REPORT STATUS: Signed DATE:02/14/22 TIME: 1224 PATIENT: PEDRO MCGREGOR UNIT #: [id number] ROOM/BED: [place] [id number] : 54 AGE: 66 SEX: M ATTEND: Jean-Paul Ward od, MD ADM AUTHOR: Luigi Cornel[facility] * ALL edits or amendments must be made on the Material Mix/computer document * Vancomycin Vancomycin Medication Therapy Goal: AUC 400-600 mcg*hr/mL Indication for treatment: OM Site of infection: known Current therapy: CEFTRIAXONE AND VANCOMYCIN Day of therapy: 1 Weight: Actual weight (kg): 105.1 VS and I/O: Vital Signs Date Temp Pulse Resp B/P B/P Mean Pulse Ox FiO2 02/11-02/14 97.3-99.3 63-102 12-18 88-165/53-88 0.0-87.5 54-100 72 hours ending at 0700 02/14 0700 02/13 1900 02/13 0702/12 19002/11 07 1900 Intake 510.00 1000.00 600.00 400 Total Output 2024 900 1673 947 2547 Total Balance -2024 -390.00 -800.00 -320.00 -600 Intake, IV 110.00 200.00 200.00 Intake, 400 800 400 400 Oral Number 0 1 2 Bowel Movements Output, 2024 900 8832 654 9241 Urine Patient 105.1 kg 105.9 kg Weight Weight Bed scale Bed scale Measuremen t Method 72 Hour I O Total 02/14 0700 02/13 0700 02/12 0700 Intake Total 1510.00 1000.00 Output Total 2024 2700 1920 Balance -2024 -1190.00 -920 Labs: Microbiology: 02/12 2100 FOOT: Wound Culture - RES ESCHERICHIA COLI COAG POS STAPHYLOCOCCUS Drug admin history: Lab Lab Level SCr Info Software Integration Developer Med Dose Inter action/Dialysis Date/Time Date/Time Notes: Treatment plan: consult, initiation of therapy Rationale: HPI: 66 yo M. PMH: HTN, T2DM, PVD, OM/septic art hritis of left foot/ankle. ID consulted and adjusted abx to ceftria xone/vancomycin. Pharmacy consulted to dose. Consulting provider: Dr. Hein Indication: OM Goal: AUC 400-600 AP: afebrile, labs from 02/11 none recent: WBC 12.4, BUN 8, SCr 1, eCrCL 94. UOP 2025 ml. Micro: 02/12 wound: protocol officer, E coli. Imagin/28 foot XR: External fixators obscur e portions of this exam. Distal fibula shows deformity of indeterminate chronicity. Talar dome shows nonspecific lucency. Osteomyel itis cannot be excluded. Regimen: Day 1. Load with 2gm. Initiate 1250 mg vancomycin iv q12h. MOnitoring: Peak and trough at steady state if c ontinued. Noted by ID to plan for targeted therapy when culture finalizes. Pharmacy will monitor and adjust dose as needed. Thanks for the consult. Electronically Signed by Luigi [facility]el[facility] on 02/14 at 1229 RPT #:[id number] END OF REPORT 2022-02-14 [facility] 11:48:00-00:00 [facility] ([facility] Infectious Dis. Progress Note REPORT#:[id number] REPORT STATUS: Signed DATE:02/14/22 TIME: 1148 PATIENT: PEDRO MCGREGOR UNIT #: [id number] [place] [facility] : [place] AGE: 66 SEX: M ATTEND: Max Ward MD ADM AUTHOR: Ronak Hein MD * ALL edits or amendments must be made on the el ectronic/computer document * Subjective Chief complaint: Follow-up on left foot osteomyelitis HPI: Pt is a 66 yr old male with left foot osteomyeli tis. Interval history: Patient denies acute or new co mplaints today. Objective General VS/I O: Vital Signs Date Temp Pulse Resp B/P B/P Mean Pulse Ox FiO2 /-02/14 97.9-98.4 63-83 14-18 104-165/53-67 0.0 94-100 Last Documented: Result Date Time Pulse Ox 98 02/14 1127 B/P 110/63 / 1127 B/P Mean 0.0 02/14 1127 O2 Delivery Room air 02/14 1127 Temp 97.9 02/14 1127 Pulse 63 02/14 1127 Resp 14 02/14 1127 O2 Flow Rate 2 02/12 0945 Vital Signs: Date Time Temp Pulse Resp B/P B/P Pulse O2 O2 F low FiO2 Mean Ox Delivery Rate 02/14 1127 97.9 63 14 110/63 0.0 98 Room air 02/14 0757 97.9 80 14 165/67 0.0 98 Room air 02/14 0557 98.4 82 16 127/66 0.0 96 02/14 0031 98.2 81 18 137/62 0.0 100 02/13 1958 98.2 80 16 104/53 0.0 94 02/13 1723 97.9 77 14 96 Room air 02/13 1203 97.9 83 14 110/65 0.0 96 Room air 24 hour I O ending at 0700: 02/14 0700 02/13 1900 Intake Total Output Total 2024 Balance -2024 Output, Urine 2024 PATIENT WEIGHT: Weight (lb): 231 Weight (oz): 11.29 Weight (kg): 105.100 Physical Exam General appearance: alert, awake, no acute distr ess Cardiovascular: regular rate rhythm, no murmur Respiratory: clear to auscultation, no distress Abdomen: non-tender, soft, no distention Extremities: no cyanosis, no edema, left lower extremity in an external fixator Neuro/METAL WELDER: alert, oriented X 3 Skin: dry, intact, no rash Diagnosis, Assessment Plan Free Text A P: Assessment: 1. Osteomyelitis and septic arthritis of the lef t foot and ankle -wound cx E. 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 coli and E faecalis) from December. -Most recent wound culture with E. coli and coagulase positive Staphylococcus. -Would discontinue piperacillin-tazobactam and s tart ceftriaxone 2 g IV daily for E. coli (E. coli ceftriaxone susceptible). -Add vancomycin for coverage of coagulase positi ve Staphylococcus. -Follow identification and susceptibilities on S taphylococcus and adjust antibiotics further as needed. -Plan for debridement later this week noted; rec ommend for cx to be sent. Electronically Signed by Ronak Hein MD on 04/07 at 1156 RPT #:[id number] END OF REPORT 2022-02-14 [facility] 10:13:00-00:00 [facility] ([facility] Hospitalist Progress Note REPORT#:[id number] REPORT STATUS: Signed DATE:02/14/22 TIME: 1013 PATIENT: PEDRO MCGREGOR UNIT #: [id number] ROOM/BED: [place] [address] : 54 AGE: 66 SEX: M ATTEND: Jean-Paul Ward od, MD ADM AUTHOR: Lexa Samson LINK CUTTER * ALL edits or amendments must be made on the Material Mix/computer document * Lexa Samson 02/14/22 1013: Subjective Chief complaint: He is tolerating wound care. His Breathing is stable. LE pain is controlled with meds. No CP, fever, chills. BP and HR stable. Review of Systems Constitutional: Reports: fatigue, generalized weakness. Eyes: Denies: discharge, itching, eye pain, photophobi a. Respiratory: Denies: hemoptysis, parox no cturnal dyspnea, pleuritic pain, productive cough ( sputum), SOB. Cardiovascular: Denies: chest pain, edema, orthopnea, palpitatio ns. GI: Denies: anorexia, diarrhea, GERD. : Denies: frequency, nocturia, penile lesion, test icular pain. Heme: Denies: bleeding, petechiae. Neuro: Denies: change in LOC, focal weakness, gait prob jessika, lightheaded, seizure. Objective General VS/I O: Vital Signs: Date Time Temp Pulse Resp B/P B/P Pulse O2 O2 F low FiO2 Mean Ox Delivery Rate 02/14 0757 36.6 80 14 165/67 0.0 98 Room air 02/14 0557 36.9 82 16 127/66 0.0 96 02/14 0031 36.8 81 18 137/62 0.0 100 02/13 1958 36.8 80 16 104/53 0.0 94 02/13 1723 36.6 77 14 96 Room air 02/13 1203 36.6 83 14 110/65 0.0 96 Room air 24 hour I O ending at 0700: 02/14 0700 02/13 1900 Intake Total Output Total 2024 Balance -2024 Output, Urine 2024 PATIENT WEIGHT: Weight (lb): 231 Weight (oz): 11.29 Weight (kg): 105.100 Medications: Active Meds + DC'd Last 24 Hrs Sterile Water (WATER FOR IRRIGATION) DRESSING CH SHERICE ASDIR PRN IRR Glucagon (GLUCAGON) 1 MG ASDIR PRN IM Piperacillin Sod/Tazobactam Sod (ZOSYN 3.375GM) 3.375 GM Q8H IV Sodium Chloride (SODIUM CHLORIDE 0.9% 100 ML) 1 00 ML Citalopram Hydrobromide (CeleXA) 20 MG DAILY PO Duloxetine HCl (CYMBALTA) 30 MG DAILY PO Furosemide (LASIX) 40 MG DAILY PO Lactulose (LACTULOSE) 20 GM BID PO Tamsulosin HCl (Flomax 0.4 mg) 0.4 MG DAILY PO Aspirin (ASPIRIN) 81 MG C BK PO Insulin Human Lispro (HUMALOG) 10 UNIT AC BK GRACE SUBQ Pantoprazole (PROTONIX) 40 MG DAILY 0600 PO Atorvastatin Calcium (LIPITOR) 80 MG BEDTIME PO Ferrous Sulfate (FERROUS SULFATE) 325 MG BID PO Gabapentin (NEURONTIN) 300 MG BEDTIME PO Gabapentin (NEURONTIN) 100 MG BEDTIME PO Ursodiol (ActigalL) 300 MG BID PO Docusate Sodium (COLACE) 100 MG DAILY PO Acetaminophen (TYLENOL) 650 MG Q4H PRN PRN PO Hydromorphone HCl (DILAUDID) 0.5 MG Q4H PRN PRN IV Oxycodone/Acetaminophen (PERCOCET 5/325MG TAB) 2 TAB Q4H PRN PRN PO Enoxaparin Sodium (lovENOX) 40 MG DAILY 1700 SUB Q Metoprolol Tartrate (LOPRESSOR) 25 MG DAILY PO Insulin Human Lispro (HUMALOG) 0 AC HS SUBQ Insulin Human Lispro (HUMALOG) 10 UNIT AC DIN MARR BQ Hydralazine HCl (APRESOLINE) 10 MG Q6H PRN PRN I V Ondansetron HCl (ZOFRAN) 4 MG Q4H PRN PRN IV Tramadol HCl (ULTRAM) 100 MG Q4H PRN PRN PO Dietitian nutrition assessment The data set between the solid lines has been im ported from the dietitian's assessment. BMI Calculated: 29.0 Nutrition related diagnosis: Nutrition diagnosis details: Nutrition problem: Nutrition etiology: Nutrition signs and symptoms: Nutrition prescription: Dietitian name: Assessment completed: Physical Exam General appearance: alert, awake, oriented Head/Eyes: atraumatic, normocephalic, PERRLA Neck: full range of motion, normal thyroid, supp le/no meningismus Cardiovascular: normal capillary refill, normal heart sounds, regular rate rhythm Respiratory: aerating well, symmetric expansion, no distress Abdomen: normal bowel sounds, soft Genitourinary: no flank pain, no urinary cathete r Extremities: no calf tenderness, no clubbing, no cyanosis Musculoskeletal: no muscle spasm Neuro/METAL WELDER: alert, oriented X 3, CNII-XII intact Psychiatry: normal affect, normal mood Results Findings/Data: Laboratory Tests 02/14 02/13 02/13 02/13 0755 1955 1722 1202 Chemistry POC Glucose (70 - 110 MG/DL) 208 H 106 137 H 20 1 H Results: labs reviewed, vital signs reviewed, vi maida signs stable, current med profile rev'd Treatment Prophylaxis Treatment Prophylaxis Oxygen: room air Diagnosis, Assessment Plan Hospital course to date: ASSESSMENT AND PLAN: - Recurrent left foot osteomyelitis. - Left foot pain, status post recent procedure. - Leukocytosis. - Hypokalemia-replaced - Hypomagnesemia-replaced. - Recently treated for bacteremia Enterococcal f aecalis. - History of hypertension. - History of hyperlipidemia. - History of depression, mood disorder. - History of diabetes type 2. - History of diabetic foot ulcer, nonhealing. - History of liver disease. PLAN: CVN1. Will go for Procedure on per Podiatry. Continue to monitor blood pressure and heart rat e. ID following for OM. Pain medication. Antiemetics. Follow labs and replace as needed. SCD for DVT prophylaxis. Continue home medication. Glycemic control, Accu-Cheks, sliding scale and diabetic diet. Monitor. Code status: full code Plan discussed with: patient, admitting physicia n, consultants, nurse Chelo Ward 02/14/22 1905: Attestations Physician Attestation Agree w/findings plan: Patient seen and examined, I agree with the findings and plans as documented by Lexa Samson NP Electronically Signed by Lexa Samson NP on 04/07 at 1014 Electronically Signed by Chelo Ward MD on 0 02/14/22 at 1914 RPT #:[id number] END OF REPORT 2022-02-13 [facility] 23:56:00-00:00 [facility] Hospitalist Progress Note REPORT#:[id number] REPORT STATUS: Signed DATE:02/13/22 TIME: 2355 PATIENT: PEDRO MCGREGOR UNIT #: [id number] [place] [facility] [place] [place] AGE: 66 SEX: M ATTEND: Jean-Paul Ward od, MD ADM AUTHOR: Margie Choi DO * ALL edits or amendments must be made on the Material Mix/computer document * Subjective Chief complaint: He is awake and alert. His Breathing is stable. LE pain is controlled with meds. No CP, fever, chills. BP and HR stable. Review of Systems Constitutional: Reports: generalized weakness. Denies: chills, f ever. ENT: Denies: nasal congestion, sinus problem. Respiratory: Denies: GIBBS (dyspnea on exertion), SOB, wheezing . Cardiovascular: Denies: chest pain, palpitations. GI: Denies: abdominal pain, nausea, vomiting. : Denies: dysuria. Neuro: Denies: confusion, dizziness. Psych: Denies: agitation, anxiety. Objective General VS/I O: Vital Signs: Date Time Temp Pulse Resp B/P B/P Pulse O2 O2 F low FiO2 Mean Ox Delivery Rate 02/138 36.8 80 16 104/53 0.0 94 02/13 1723 36.6 77 14 96 Room air 02/13 1203 36.6 83 14 110/65 0.0 96 Room air 02/13 0810 96 14 124/62 0.0 96 Room air 02/13 0514 36.4 86 16 127/65 0.0 96 24 hour I O ending at 0700: 02/13 0700 02/12 1900 Intake Total 510.00 1000.00 Output Total 900 1800 Balance -390.00 -800.00 Intake, IV 110.00 200.00 Intake, Oral 400 800 Number 0 Bowel Movements Output, Urine 900 1800 Patient 105.1 kg Weight Weight Bed scale Measurement Method PATIENT WEIGHT: Weight (lb): 231 Weight (oz): 11.29 Weight (kg): 105.100 Medications: Active Meds + DC'd Last 24 Hrs Sterile Water (WATER FOR IRRIGATION) DRESSING CH SHERICE ASDIR PRN IRR Magnesium Oxide (MAG-OX 400) 400 MG BID PO (DC) Glucagon (GLUCAGON) 1 MG ASDIR PRN IM Piperacillin Sod/Tazobactam Sod (ZOSYN 3.375GM) 3.375 GM Q8H IV Sodium Chloride (SODIUM CHLORIDE 0.9% 100 ML) 1 00 ML Citalopram Hydrobromide (CeleXA) 20 MG DAILY PO Duloxetine HCl (CYMBALTA) 30 MG DAILY PO Furosemide (LASIX) 40 MG DAILY PO Lactulose (LACTULOSE) 20 GM BID PO Tamsulosin HCl (Flomax 0.4 mg) 0.4 MG DAILY PO Aspirin (ASPIRIN) 81 MG C BK PO Insulin Human Lispro (HUMALOG) 10 UNIT AC BK GRACE SUBQ Pantoprazole (PROTONIX) 40 MG DAILY 0600 PO Atorvastatin Calcium (LIPITOR) 80 MG BEDTIME PO Ferrous Sulfate (FERROUS SULFATE) 325 MG BID PO Gabapentin (NEURONTIN) 300 MG BEDTIME PO Gabapentin (NEURONTIN) 100 MG BEDTIME PO Ursodiol (ActigalL) 300 MG BID PO Docusate Sodium (COLACE) 100 MG DAILY PO Acetaminophen (TYLENOL) 650 MG Q4H PRN PRN PO Hydromorphone HCl (DILAUDID) 0.5 MG Q4H PRN PRN IV Oxycodone/Acetaminophen (PERCOCET 5/325MG TAB) 2 TAB Q4H PRN PRN PO Enoxaparin Sodium (lovENOX) 40 MG DAILY 1700 SUB Q Metoprolol Tartrate (LOPRESSOR) 25 MG DAILY PO Insulin Human Lispro (HUMALOG) 0 AC HS SUBQ Insulin Human Lispro (HUMALOG) 10 UNIT AC DIN MARR BQ Hydralazine HCl (APRESOLINE) 10 MG Q6H PRN PRN I V Ondansetron HCl (ZOFRAN) 4 MG Q4H PRN PRN IV Tramadol HCl (ULTRAM) 100 MG Q4H PRN PRN PO Physical Exam Head/Eyes: atraumatic, normocephalic, PERRLA Neck: full range of motion, normal thyroid, supp le/no meningismus Cardiovascular: normal capillary refill, normal heart sounds, regular rate rhythm Respiratory: aerating well, symmetric expansion, no distress Abdomen: normal bowel sounds, soft Genitourinary: no flank pain, no urinary cathete r Extremities: no calf tenderness, no clubbing, no cyanosis Musculoskeletal: no muscle spasm Neuro/METAL WELDER: alert, oriented X 3, CNII-XII intact Psychiatry: normal affect, normal mood Results Findings/Data: Laboratory Tests 02/13 02/13 02/13 02/13 1955 1722 1202 0809 Chemistry POC Glucose (70 - 110 MG/DL) 106 137 H 201 H 18 6 H Free Text Obj Notes Free Text Obj Notes: General appearance: alert, awake, oriented Head/Eyes: atraumatic, normocephalic, PERRLA Neck: full range of motion, normal thyroid, supp le/no meningismus Cardiovascular: normal capillary refill, normal heart sounds, regular rate rhythm Respiratory: aerating well, symmetric expansion, no distress Abdomen: normal bowel sounds, soft Genitourinary: no flank pain, no urinary cathete r Extremities: Left Foot Dressing C/D/I, in tuber operator al fixator. Musculoskeletal: no muscle spasm Neuro/METAL WELDER: alert, oriented X 3, CNII-XII intact Treatment Prophylaxis Treatment Prophylaxis Oxygen: room air Diagnosis, Assessment Plan Hospital course to date: ASSESSMENT AND PLAN: - Recurrent left foot osteomyelitis. - Left foot pain, status post recent procedure. - Leukocytosis. - Hypokalemia-replaced - Hypomagnesemia-replaced. - Recently treated for bacteremia Enterococcal f aecalis. - History of hypertension. - History of hyperlipidemia. - History of depression, mood disorder. - History of diabetes type 2. - History of diabetic foot ulcer, nonhealing. - History of liver disease. PLAN: Continue to monitor blood pressure and heart rat e. ID following for OM. Pain medication. Antiemetics. Follow labs and replace as needed. SCD for DVT prophylaxis. Continue home medication. Glycemic control, Accu-Cheks, sliding scale and diabetic diet, ONE EPISODE of hypoglycemia yesterday. close monitor Monitor. Electronically Signed by Margie Choi DO on 04/07 at 0047 RPT #:[id number] END OF REPORT 2022-02-13 [facility] 16:25:00-00:00 [facility]) Podiatry Progress Note REPORT#:[id number] REPORT STATUS: Signed DATE:02/13/22 TIME: 5 PATIENT: PEDRO MCGREGOR UNIT #: [id number] ROOM/BED: [place] [address] : 54 AGE: 66 SEX: M ATTEND: Jean-Paul Ward od, MD ADM AUTHOR: Alejandro Shah DPM * ALL edits or amendments must be made on the Material Mix/computer document * Subjective Chief complaint: foot infection Patient reports: no constipation, no cough, no f atigue, no fever, no itching Comments: pt getting set up for lavage no f/c events noted Objective General VS: Last Documented: Result Date Time Pulse Ox 96 02/13 1203 B/P 110/65 02/13 1203 B/P Mean 0.0 02/13 1203 O2 Delivery Room air 02/13 1203 Temp 36.6 02/13 1203 Pulse 83 02/13 1203 Resp 14 02/13 1203 O2 Flow Rate 2 02/12 0945 PATIENT WEIGHT: Weight (lb): 231 Weight (oz): 11.29 Weight (kg): 105.100 Medications: Active Meds + DC'd Last 24 Hrs Sterile Water (WATER FOR IRRIGATION) DRESSING CH SHERICE ASDIR PRN IRR Magnesium Oxide (MAG-OX 400) 400 MG BID PO (DC) Glucagon (GLUCAGON) 1 MG ASDIR PRN IM Piperacillin Sod/Tazobactam Sod (ZOSYN 3.375GM) 3.375 GM Q8H IV Sodium Chloride (SODIUM CHLORIDE 0.9% 100 ML) 1 00 ML Citalopram Hydrobromide (CeleXA) 20 MG DAILY PO Duloxetine HCl (CYMBALTA) 30 MG DAILY PO Furosemide (LASIX) 40 MG DAILY PO Lactulose (LACTULOSE) 20 GM BID PO Tamsulosin HCl (Flomax 0.4 mg) 0.4 MG DAILY PO Aspirin (ASPIRIN) 81 MG C BK PO Insulin Human Lispro (HUMALOG) 10 UNIT AC BK GRACE SUBQ Pantoprazole (PROTONIX) 40 MG DAILY 0600 PO Atorvastatin Calcium (LIPITOR) 80 MG BEDTIME PO Ferrous Sulfate (FERROUS SULFATE) 325 MG BID PO Gabapentin (NEURONTIN) 300 MG BEDTIME PO Gabapentin (NEURONTIN) 100 MG BEDTIME PO Ursodiol (ActigalL) 300 MG BID PO Docusate Sodium (COLACE) 100 MG DAILY PO Acetaminophen (TYLENOL) 650 MG Q4H PRN PRN PO Hydromorphone HCl (DILAUDID) 0.5 MG Q4H PRN PRN IV Oxycodone/Acetaminophen (PERCOCET 5/325MG TAB) 2 TAB Q4H PRN PRN PO Enoxaparin Sodium (lovENOX) 40 MG DAILY 1700 SUB Q Metoprolol Tartrate (LOPRESSOR) 25 MG DAILY PO Insulin Human Lispro (HUMALOG) 0 AC HS SUBQ Insulin Human Lispro (HUMALOG) 10 UNIT AC DIN MARR BQ Hydralazine HCl (APRESOLINE) 10 MG Q6H PRN PRN I V Ondansetron HCl (ZOFRAN) 4 MG Q4H PRN PRN IV Tramadol HCl (ULTRAM) 100 MG Q4H PRN PRN PO I O: 24 hour I O ending at 0700: 02/13 0700 02/12 1900 Intake Total 510.00 1000.00 Output Total 900 1800 Balance -390.00 -800.00 Intake, IV 110.00 200.00 Intake, Oral 400 800 Number 0 Bowel Movements Output, Urine 900 1800 Patient 105.1 kg Weight Weight Bed scale Measurement Method Dietitian nutrition assessment The data set between the solid lines has been im ported from the dietitian's assessment. BMI Calculated: 29.0 Nutrition related diagnosis: Nutrition diagnosis details: Nutrition problem: Nutrition etiology: Nutrition signs and symptoms: Nutrition prescription: Dietitian name: Assessment completed: Physical Exam General appearance: alert, awake, oriented Wound/incision: Location: Left foot DP and PT pulses 1/4 barely palpable. Light touch and protective sensation greatly de creased left foot. Extensive wound from the medial aspect of the l eft hindfoot to the medial aspect of the left midfoot. Wide open with thick purulent drainage very mal odorous. Ulcer plantar left first metatarsal head is sup erficial. Erythema of the left foot. No crepitation External fixator is in place. Foot is underneath the leg.. LE vascular pulse assess: 1+ L posterior tibialis, 1+ L dorsalis pedis Results Findings/Data: Microbiology: 02/12 2100 FOOT: Wound Culture - RES GRAM NEGATIVE PRASHANT Microbiology: 02/12 2100 FOOT: Wound Culture - RES GRAM NEGATIVE PRASHANT 02/10 1020 NASAL: MRSA DNA Surveillance Screen - COMP 02/09 1449 BLOOD: Blood Culture - RES Laboratory Tests: 02/13 02/13 02/12 02/12 1202 0809 1945 1644 Chemistry POC Glucose (70 - 110 MG/DL) 201 H 186 H 120 H 175 H Diagnosis, Assessment Plan Free Text A P: External fixator left lower extremity Cellulitis and draining wound medial left foot Diabetes with peripheral neuropathy Superficial ulcer left forefoot culture left foot: GNR IV antibiotics X-rays noted within normal limits daily pulse lavage He is on oral gabapentin per Dr. Wharton, plan for surgery monday Covering for Dr.'s Wharton and linnea Electronically Signed by Alejandro Shah DPM on 0 02/13/22 at 1626 RPT #:[id number] END OF REPORT 2022-02-13 [facility] 11:59:00-00:00 [facility] ([facility]) Pain Management Progress Note REPORT#:[id number] REPORT STATUS: Signed DATE:02/13/22 TIME: 1159 PATIENT: PEDRO MCGREGOR UNIT #: [id number] ROOM/BED: [place] [id number] : 54 AGE: 66 SEX: M ATTEND: Max Ward MD ADM AUTHOR: Emy Mayes LINK CUTTER * ALL edits or amendments must be made on the Material Mix/computer document * Subjective Chief complaint: Foot Wound. Interval History 02/13/2021 Patient chart, note and event reviewed Patient is laying in bed, fully alert, awake hem odynamically stable Pain is controlled Mood is ok Sleep is ok. Denied insomnia constipation is managed with lactulose and colac e HPI: Patient is a 66-year-old male, multiple comorbid ities including hypertension, diabetes, depression. Tranfered from [facility]. He is here for worsening foot wound. Poor healing wound, has Ex -Fix as well. Present with severe left leg pain. Review of Systems Additional notes: Review was conducted and was negative except for what's noted in the HPI and Medical History. The following systems were revi ewed: Constitutional, cardiovascular, respiratory, gastrointes tinal, genitourinary, musculoskeletal, neurologic, psychiatric, endocrinological, and h ematological. Objective General VS/I O: Vital Signs Date Temp Pulse Resp B/P B/P Mean Pulse Ox FiO2 02/12-02/13 97.5-99.3 77-96 12-16 97-131/55-88 0.0-83.8 95-97 Last Documented: Result Date Time Pulse Ox 96 02/13 0810 B/P 124/62 02/13 08 B/P Mean 0.0 02/13 0810 O2 Delivery Room air 02/13 08 Pulse 96 02/13 0810 Resp 14 02/13 08 Temp 97.5 02/13 0514 O2 Flow Rate 2 02/12 0945 24 hour I O ending at 0700: 02/13 0700 02/12 1900 Intake Total 510.00 1000.00 Output Total 900 1800 Balance -390.00 -800.00 Intake, IV 110.00 200.00 Intake, Oral 400 800 Number 0 Bowel Movements Output, Urine 900 1800 Patient 105.1 kg Weight Weight Bed scale Measurement Method PATIENT WEIGHT: Weight (lb): 231 Weight (oz): 11.29 Weight (kg): 105.100 Medications: Active Meds + DC'd Last 24 Hrs Sterile Water (WATER FOR IRRIGATION) DRESSING CH SHERICE ASDIR PRN IRR Magnesium Oxide (MAG-OX 400) 400 MG BID PO (DC) Glucagon (GLUCAGON) 1 MG ASDIR PRN IM Piperacillin Sod/Tazobactam Sod (ZOSYN 3.375GM) 3.375 GM Q8H IV Sodium Chloride (SODIUM CHLORIDE 0.9% 100 ML) 1 00 ML Citalopram Hydrobromide (CeleXA) 20 MG DAILY PO Duloxetine HCl (CYMBALTA) 30 MG DAILY PO Furosemide (LASIX) 40 MG DAILY PO Lactulose (LACTULOSE) 20 GM BID PO Tamsulosin HCl (Flomax 0.4 mg) 0.4 MG DAILY PO Aspirin (ASPIRIN) 81 MG C BK PO Insulin Human Lispro (HUMALOG) 10 UNIT AC BK GRACE SUBQ Pantoprazole (PROTONIX) 40 MG DAILY 0600 PO Atorvastatin Calcium (LIPITOR) 80 MG BEDTIME PO Ferrous Sulfate (FERROUS SULFATE) 325 MG BID PO Gabapentin (NEURONTIN) 300 MG BEDTIME PO Gabapentin (NEURONTIN) 100 MG BEDTIME PO Ursodiol (ActigalL) 300 MG BID PO Docusate Sodium (COLACE) 100 MG DAILY PO Acetaminophen (TYLENOL) 650 MG Q4H PRN PRN PO Hydromorphone HCl (DILAUDID) 0.5 MG Q4H PRN PRN IV Oxycodone/Acetaminophen (PERCOCET 5/325MG TAB) 2 TAB Q4H PRN PRN PO Enoxaparin Sodium (lovENOX) 40 MG DAILY 1700 SUB Q Metoprolol Tartrate (LOPRESSOR) 25 MG DAILY PO Insulin Human Lispro (HUMALOG) 0 AC HS SUBQ Insulin Human Lispro (HUMALOG) 10 UNIT AC DIN MARR BQ Hydralazine HCl (APRESOLINE) 10 MG Q6H PRN PRN I V Ondansetron HCl (ZOFRAN) 4 MG Q4H PRN PRN IV Tramadol HCl (ULTRAM) 100 MG Q4H PRN PRN PO Dietitian nutrition assessment The data set between the solid lines has been im ported from the dietitian's assessment. BMI Calculated: 29.0 Nutrition related diagnosis: Nutrition diagnosis details: Nutrition problem: Nutrition etiology: Nutrition signs and symptoms: Nutrition prescription: Dietitian name: Assessment completed: Physical Exam Head/eyes: atraumatic, PERRLA Neck: full range of motion, non-tender Cardiovascular: normal capillary refill, regular rate rhythm Abdomen: soft Extremities: moves all (left leg wound/ external fix) Neuro/METAL WELDER: alert Results Findings/data: Laboratory Tests: 02/13 02/12 02/12 0809 1945 1644 Chemistry POC Glucose (70 - 110 MG/DL) 186 H 120 H 175 H Microbiology: Date/Time Procedure - Status Source Growth 02/12 2100 Wound Culture - RECD FOOT Diagnosis, Assessment Plan Free text A P: Assessment/Plan Daily Plan 02/13/2021 Patient assessed. Pain is contolled with current pain medical management Plan 1. Acute complex pain syndrome 2/2 left leg oste omilitis -Dilaudid 0.5mg IV Q4H PRN for pain 7-10, secon d line -oxycodone 10/325 q4H PRN for pain 7-10 first l ine -Tylenol 650 mg PO Q6h for pain 1-3 2. Neuropathic pain -gabapentin 100mg daily -cymbalta 30mg twice a day 3. Muscle spasm flexeril 5mg TID 4. Bowel Regimen - colace -continue pain regimen as above -Monitor for S/E such as AMS , Lethargy/sedation, changes in respiratory function -Continue BP parameters -APS( Acute Pain services) will continue to foll ow -please call pain management for any pain-relate d concerns or questions Goal: Daily pain control to improve function and /or quality of life ([x]) Pain control until condition naturally res olves ([x]) Inpatient pain control ([x]) Improved sleep cycle ([x]) all narcotics medications will be adjusted according to the patient's medical condition during the hospital stay Alll diagnostic images/lab and medical records d uring the course of this admission as well as ASSISTANT CHIEF TRAIN DISPATCHER records reviewed Risk versus benefit of opiate medications: All r isk and benefit were reviewed with the patient and family members, risk not limited to respiratory depression, accidental overdose, risk of fall, altered menta l status, constipation, dependency, addiction, withdrawn, sudden . Plan discussed with: The pain plan of ca re has been discussed with the patient and the nursing staff. Patient is in agr eement with the following plan of care and wishes to proceed. Quest ions and concerns have been answered to the patient' s satisfaction. Patient has verbalized understan iqra. Plan discussed with: patient Electronically Signed by Emy Mayes LINK CUTTER on 0 02/13/22 at 1210 RPT #:[id number] END OF REPORT 2022-02-12 [facility] 12:58:00-00:00 [facility]) Podiatry Consult Note REPORT#:[id number] REPORT STATUS: Signed DATE:02/12/22 TIME: 1258 PATIENT: PEDRO MCGREGOR UNIT #: [id number] ROOM/BED: [place] [address] : 54 AGE: 66 SEX: M ATTEND: Jean-Paul Ward od, MD ADM AUTHOR: Alejandro Shah DPM * ALL edits or amendments must be made on the Material Mix/computer document * History of Present Illness Reason for consult: foot infection Chief complaint: foot infection HPI: covering Patient is a 66-year-old male, multiple comorbid ities including hypertension, diabetes, depression. from [facility]. He is here for worsening foot wound. Poorly healing, has Ex-Fix as well. Present with severe left leg pain. Patient stated he need some medicine for c onstipation and got it. Patient had an external fixator placed By other team He has pus draining from the left foot He has been here for approximately 2 or 3 days No fevers or chills They barely noticed a foul smell in the room He says the wound was healing well that he knows of History - Adult longitudinal Past medical history: Reports: Depression/mood disorder, Hypertension. Additional medical history: HTN, HLD, Dm type II, Diabetic foot ulcer, Liver disease Alcohol use: Denies EtOH use Drug use: Denies recreational drugs Smoking status for patients 13 years old or olde r: Never Smoker Allergies: Coded Allergies: hydrocodone (Mild, NAUSIATED 01/05/22) Review of Systems Constitutional: generalized weakness, lethargy. Denies: fever. Skin: itching, laceration. Respiratory: Denies: GIBBS (dyspnea on exertion). Cardiovascular: edema. Denies: chest pain. Neuro: numbness. Denies: seizure. All systems rev neg: except as marked Objective General VS: Last Documented: Result Date Time Pulse Ox 93 02/12 1203 B/P 130/54 02/12 1203 B/P Mean 79.2 02/12 1203 O2 Delivery Room air 02/12 1203 Temp 36.8 02/12 1203 Pulse 102 02/12 1203 Resp 12 02/12 0747 O2 Flow Rate 2 02/11 1950 PATIENT WEIGHT: Weight (lb): 233 Weight (oz): 7.51 Weight (kg): 105.900 Medications: Active Meds + DC'd Last 24 Hrs Magnesium Oxide (MAG-OX 400) 400 MG BID PO Glucagon (GLUCAGON) 1 MG ASDIR PRN IM Piperacillin Sod/Tazobactam Sod (ZOSYN 3.375GM) 3.375 GM Q8H IV Sodium Chloride (SODIUM CHLORIDE 0.9% 100 ML) 1 00 ML Citalopram Hydrobromide (CeleXA) 20 MG DAILY PO Duloxetine HCl (CYMBALTA) 30 MG DAILY PO Furosemide (LASIX) 40 MG DAILY PO Lactulose (LACTULOSE) 20 GM BID PO Tamsulosin HCl (Flomax 0.4 mg) 0.4 MG DAILY PO Aspirin (ASPIRIN) 81 MG C BK PO Insulin Human Lispro (HUMALOG) 10 UNIT AC BK GRACE SUBQ Pantoprazole (PROTONIX) 40 MG DAILY 0600 PO Atorvastatin Calcium (LIPITOR) 80 MG BEDTIME PO Ferrous Sulfate (FERROUS SULFATE) 325 MG BID PO Gabapentin (NEURONTIN) 300 MG BEDTIME PO Gabapentin (NEURONTIN) 100 MG BEDTIME PO Ursodiol (ActigalL) 300 MG BID PO Docusate Sodium (COLACE) 100 MG DAILY PO Acetaminophen (TYLENOL) 650 MG Q4H PRN PRN PO Hydromorphone HCl (DILAUDID) 0.5 MG Q4H PRN PRN IV Oxycodone/Acetaminophen (PERCOCET 5/325MG TAB) 2 TAB Q4H PRN PRN PO Enoxaparin Sodium (lovENOX) 40 MG DAILY 1700 SUB Q Metoprolol Tartrate (LOPRESSOR) 25 MG DAILY PO Insulin Human Lispro (HUMALOG) 0 AC HS SUBQ Insulin Human Lispro (HUMALOG) 10 UNIT AC DIN MARR BQ Hydralazine HCl (APRESOLINE) 10 MG Q6H PRN PRN I V Ondansetron HCl (ZOFRAN) 4 MG Q4H PRN PRN IV Tramadol HCl (ULTRAM) 100 MG Q4H PRN PRN PO I O: 24 hour I O ending at 0700: 1231 0700 12 1900 Intake Total 600.00 400 Output Total 920 1000 Balance -320.00 -600 Intake, IV 200.00 Intake, Oral 400 400 Number 1 2 Bowel Movements Output, Urine 920 1000 Patient 105.9 kg Weight Weight Bed scale Measurement Method Dietitian nutrition assessment The data set between the solid lines has been im ported from the dietitian's assessment. BMI Calculated: 29.2 Nutrition related diagnosis: Nutrition diagnosis details: Nutrition problem: Nutrition etiology: Nutrition signs and symptoms: Nutrition prescription: Dietitian name: Assessment completed: Physical Exam General appearance: alert, a wake, oriented, conversational, mental status normal Wound/incision: Location: Left foot DP and PT pulses 1/4 barely palpable. Light touch and protective sensation greatly dec reased left foot. Extensive wound from the med ial aspect of the left hindfoot to the medial aspect of the left midfoot. Wide open with thick purulent drainage very bobby dorous. Ulcer plantar left first metatarsal head is supe rficial. Erythema of the left foot. No crepitation External fixator is in place. Foot is underneath the leg.. LE vascular pulse assess: 1+ L posterior tibialis, 1+ L dorsalis pedis Feet - Left Right View (L) [Embedded Image Not Available] 1) Results Findings/Data: Allergies Allergy Severity Reaction Updated Coded hydrocodone Mild NAUSIATED 01/05/22 Laboratory Tests 02/11/22 0320: [Embedded Image Not Available] Microbiology: 02/10 1020 NASAL: MRSA DNA Surveillance Screen - COMP 02/09 1449 BLOOD: Blood Culture - RES 02/09 1447 BLOOD: Blood Culture - RES Recent Impressions-Last 72 Hrs RADIOLOGY - XR FOOT 3 + V LT 02/09 1509 Report Impression - Status: SIGNED Entered: 02/09/2022 2684 IMPRESSION: External fixators obscure portions of this exam. Distal fibula shows deformity of indeterminate chronicity. Talar dome shows nonspecific lucency. Osteomyeli tis cannot be excluded. Impression By: SegundoWHJohnathan Zhou M.D. Laboratory Tests: 02/12 02/12 02/11 02/11 02/11 1203 0746 1929 1850 1810 Chemistry POC Glucose (70 - 110 MG/DL) 224 H 199 H 107 9 3 66 L Diagnosis, Assessment Plan Free Text A P: External fixator left lower extremity Cellulitis and draining wound medial left foot Diabetes with peripheral neuropathy Superficial ulcer left forefoot Get culture left foot IV antibiotics X-rays noted within normal limits Start pulse lavage He is on oral gabapentin Covering for Dr.'s Wharton and linnea Electronically Signed by Alejandro Shah DPM on 1 at 1306 RPT #:[id number] END OF REPORT 2022-02-12 [facility] 10:22:00-00:00 [facility] ([facility]) Hospitalist Progress Note REPORT#:[id number] REPORT STATUS: Signed DATE:02/12/22 TIME: 1022 PATIENT: PEDRO MCGREGOR UNIT #: [id number] ROOM/BED: [place] [address] : 54 AGE: 66 SEX: M ATTEND: Jean-Paul Ward od, MD ADM AUTHOR: Margie Choi DO * ALL edits or amendments must be made on the Material Mix/computer document * Subjective Chief complaint: He is awake and alert. His Breathing is stable. LE pain is controlled with meds. No CP, fever, chills. BP and HR stable. Review of Systems Constitutional: Denies: chills, fever. Respiratory: Denies: GIBBS (dyspnea on exertion), SOB. Cardiovascular: Denies: chest pain, palpitations. GI: Denies: abdominal pain. : Denies: dysuria. Musculoskeletal: Arthritis: Reports: bilateral. Neuro: Denies: confusion, dizziness. Psych: Denies: agitation, anxiety. Objective General VS/I O: Vital Signs: Date Time Temp Pulse Resp B/P B/P Pulse O2 O2 F low FiO2 Mean Ox Delivery Rate 02/12 0747 36.3 92 12 131/66 87.5 99 Room air 02/12 0342 36.8 98 13 88/57 67.6 97 Room air 02/11 2343 36.9 86 18 117/67 83.9 95 Room air 02/11 1950 Nasal 2 cannula 02/12 1928 37.1 76 18 129/66 86.8 54 Nasal cannula 02/11 1128 36.6 86 14 100/65 0.0 93 Nasal cannula 24 hour I O ending at 0700: 02/12 0700 02/11 1900 Intake Total 600.00 400 Output Total 920 1000 Balance -320.00 -600 Intake, IV 200.00 Intake, Oral 400 400 Number 1 2 Bowel Movements Output, Urine 920 1000 Patient 105.9 kg Weight Weight Bed scale Measurement Method PATIENT WEIGHT: Weight (lb): 233 Weight (oz): 7.51 Weight (kg): 105.900 Medications: Active Meds + DC'd Last 24 Hrs Magnesium Oxide (MAG-OX 400) 400 MG BID PO Glucagon (GLUCAGON) 1 MG ASDIR PRN IM Piperacillin Sod/Tazobactam Sod (ZOSYN 3.375GM) 3.375 GM Q8H IV Sodium Chloride (SODIUM CHLORIDE 0.9% 100 ML) 1 00 ML Citalopram Hydrobromide (CeleXA) 20 MG DAILY PO Duloxetine HCl (CYMBALTA) 30 MG DAILY PO Furosemide (LASIX) 40 MG DAILY PO Lactulose (LACTULOSE) 20 GM BID PO Tamsulosin HCl (Flomax 0.4 mg) 0.4 MG DAILY PO Aspirin (ASPIRIN) 81 MG C BK PO Insulin Human Lispro (HUMALOG) 10 UNIT AC BK GRACE SUBQ Pantoprazole (PROTONIX) 40 MG DAILY 0600 PO Atorvastatin Calcium (LIPITOR) 80 MG BEDTIME PO Ferrous Sulfate (FERROUS SULFATE) 325 MG BID PO Gabapentin (NEURONTIN) 300 MG BEDTIME PO Gabapentin (NEURONTIN) 100 MG BEDTIME PO Ursodiol (ActigalL) 300 MG BID PO Docusate Sodium (COLACE) 100 MG DAILY PO Acetaminophen (TYLENOL) 650 MG Q4H PRN PRN PO Hydromorphone HCl (DILAUDID) 0.5 MG Q4H PRN PRN IV Oxycodone/Acetaminophen (PERCOCET 5/325MG TAB) 2 TAB Q4H PRN PRN PO Enoxaparin Sodium (lovENOX) 40 MG DAILY 1700 SUB Q Metoprolol Tartrate (LOPRESSOR) 25 MG DAILY PO Insulin Human Lispro (HUMALOG) 0 AC HS SUBQ Insulin Human Lispro (HUMALOG) 10 UNIT AC DIN MARR BQ Hydralazine HCl (APRESOLINE) 10 MG Q6H PRN PRN IV Ondansetron HCl (ZOFRAN) 4 MG Q4H PRN PRN IV Tramadol HCl (ULTRAM) 100 MG Q4H PRN PRN PO Physical Exam Head/Eyes: atraumatic, normocephalic, PERRLA Neck: full range of motion, normal thyroid, supp le/no meningismus Cardiovascular: normal capillary refill, normal heart sounds, regular rate rhythm Respiratory: aerating well, symmetric expansion, no distress Abdomen: normal bowel sounds, soft Genitourinary: no flank pain, no urinary cathete r Extremities: no calf tenderness, no clubbing, no cyanosis Musculoskeletal: no muscle spasm Neuro/METAL WELDER: alert, oriented X 3, CNII-XII intact Psychiatry: normal affect, normal mood Results Findings/Data: Laboratory Tests 02/12 02/11 02/11 02/11 02/11 0746 1929 1850 1810 1102 Chemistry POC Glucose (70 - 110 MG/DL) 199 H 107 93 66 L 260 H Free Text Obj Notes Free Text Obj Notes: General appearance: alert, awake, oriented Head/Eyes: atraumatic, normocephalic, PERRLA Neck: full range of motion, normal thyroid, supp le/no meningismus Cardiovascular: normal capillary refill, normal heart sounds, regular rate rhythm Respiratory: aerating well, symmetric expansion, no distress Abdomen: normal bowel sounds, soft Genitourinary: no flank pain, no urinary cathete r Extremities: Left Foot Dressing C/D/I, in tuber operator al fixator. Musculoskeletal: no muscle spasm Neuro/METAL WELDER: alert, oriented X 3, CNII-XII intact Treatment Prophylaxis Treatment Prophylaxis Oxygen: room air Diagnosis, Assessment Plan Hospital course to date: ASSESSMENT AND PLAN: - Recurrent left foot osteomyelitis. - Left foot pain, status post recent procedure. - Leukocytosis. - Hypokalemia. - Hypomagnesemia. - Recently treated for bacteremia Enterococcal f aecalis. - History of hypertension. - History of hyperlipidemia. - History of depression, mood disorder. - History of diabetes type 2. - History of diabetic foot ulcer, nonhealing. - History of liver disease. PLAN: Continue to monitor blood pressure and heart rat e. ID following for OM. Pain medication. Antiemetics. Follow labs and replace as needed. SCD for DVT prophylaxis. Continue home medication. Glycemic control, Accu-Cheks, sliding scale and diabetic diet, ONE EPISODE of hypoglycemia yesterday. close monitor Monitor. Electronically Signed by Margie Choi DO on 01/15 03/06 at 1847 RPT #:[id number] END OF REPORT 2022-02-12 [facility] 10:16:00-00:00 [facility] ([facility]) Pain Management Progress Note REPORT#:[id number] REPORT STATUS: Signed DATE:02/12/22 TIME: 1016 PATIENT: PEDRO MCGREGOR UNIT #: [id number] ROOM/BED: [place] [address] : 54 AGE: 66 SEX: M ATTEND: Jean-Paul Ward od, MD ADM AUTHOR: Emy Mayes NP * ALL edits or amendments must be made on the Material Mix/computer document * Subjective Chief complaint: Foot Wound. Interval History 02/12/2022 Patient chart, note and event reviewed Patient is laying in bed, fully alert, awake hem dynamiccally stable Pain is controlled Mood is ok Sleep is ok. Denied insomnia constipation is managed with lactulose and colac e HPI: Patient is a 66-year-old male, multiple comorbid ities including hypertension, diabetes, depression. Tranfered from [facility]. He is here for worsening foot wound. Poor healing wound, has Ex -Fix as well. Present with severe left leg pain. Review of Systems Additional notes: Review was conducted and was negative except for what's noted in the HPI and Medical History. The following systems were revi ewed: Constitutional, cardiovascular, respiratory, gastrointes tinal, genitourinary, musculoskeletal, neurologic, psychiatric, endocrinological, and h ematological. Objective General VS/I O: Vital Signs Date Temp Pulse Resp B/P B/P Mean Pulse Ox FiO2 02/11-02/12 97.3-98.8 76-98 - 88-131/57-67 0.0-87.5 54-99 Last Documented: Result Date Time Pulse Ox 99 02/12 0747 B/P 131/66 02/12 0747 B/P Mean 87.5 02/12 0747 O2 Delivery Room air 02/12 747 Temp 97.3 02/12 747 Pulse 92 02/12 747 Resp 12 02/12 747 O2 Flow Rate 2 02/11 1950 24 hour I O ending at 0700: 02/12 0700 02/11 1900 Intake Total 600.00 400 Output Total 920 1000 Balance -320.00 -600 Intake, IV 200.00 Intake, Oral 400 400 Number 1 2 Bowel Movements Output, Urine 920 1000 Patient 105.9 kg Weight Weight Bed scale Measurement Method PATIENT WEIGHT: Weight (lb): 233 Weight (oz): 7.51 Weight (kg): 105.900 Medications: Active Meds + DC'd Last 24 Hrs Magnesium Oxide (MAG-OX 400) 400 MG BID PO Glucagon (GLUCAGON) 1 MG ASDIR PRN IM Piperacillin Sod/Tazobactam Sod (ZOSYN 3.375GM) 3.375 GM Q8H IV Sodium Chloride (SODIUM CHLORIDE 0.9% 100 ML) 1 00 ML Citalopram Hydrobromide (CeleXA) 20 MG DAILY PO Duloxetine HCl (CYMBALTA) 30 MG DAILY PO Furosemide (LASIX) 40 MG DAILY PO Lactulose (LACTULOSE) 20 GM BID PO Tamsulosin HCl (Flomax 0.4 mg) 0.4 MG DAILY PO Aspirin (ASPIRIN) 81 MG C BK PO Insulin Human Lispro (HUMALOG) 10 UNIT AC BK GRACE SUBQ Pantoprazole (PROTONIX) 40 MG DAILY 0600 PO Atorvastatin Calcium (LIPITOR) 80 MG BEDTIME PO Ferrous Sulfate (FERROUS SULFATE) 325 MG BID PO Gabapentin (NEURONTIN) 300 MG BEDTIME PO Gabapentin (NEURONTIN) 100 MG BEDTIME PO Ursodiol (ActigalL) 300 MG BID PO Docusate Sodium (COLACE) 100 MG DAILY PO Acetaminophen (TYLENOL) 650 MG Q4H PRN PRN PO Hydromorphone HCl (DILAUDID) 0.5 MG Q4H PRN PRN IV Oxycodone/Acetaminophen (PERCOCET 5/325MG TAB) 2 TAB Q4H PRN PRN PO Enoxaparin Sodium (lovENOX) 40 MG DAILY 1700 MARR BQ Metoprolol Tartrate (LOPRESSOR) 25 MG DAILY PO Insulin Human Lispro (HUMALOG) 0 AC HS SUBQ Insulin Human Lispro (HUMALOG) 10 UNIT AC DIN MARR BQ Hydralazine HCl (APRESOLINE) 10 MG Q6H PRN PRN I V Ondansetron HCl (ZOFRAN) 4 MG Q4H PRN PRN IV Tramadol HCl (ULTRAM) 100 MG Q4H PRN PRN PO Dietitian nutrition assessment The data set between the solid lines has been im ported from the dietitian's assessment. BMI Calculated: 29.2 Nutrition related diagnosis: Nutrition diagnosis details: Nutrition problem: Nutrition etiology: Nutrition signs and symptoms: Nutrition prescription: Dietitian name: Assessment completed: Physical Exam General appearance: alert, awake, oriented, no a cute distress, pleasant, conversational, mental status normal, no respira tory distress Head/eyes: atraumatic, PERRLA Neck: full range of motion, non-tender Cardiovascular: normal capillary refill, regular rate rhythm Abdomen: soft Extremities: moves all (left leg wound/ external fix) Neuro/METAL WELDER: alert Diagnosis, Assessment Plan Free text A P: Assessment/Plan Daily Plan 02/12/2022 Patient assessed. Pain is manageable, will shaye nue current pain medical management Plan 1. Acute complex pain syndrome 2/2 left leg cell ulitis -Dilaudid 0.5mg IV Q4H PRN for pain 7-10, secon d line -oxycodone 10/325 q4H PRN for pain 7-10 first l ine -Tylenol 650 mg PO Q6h for pain 1-3 2. Neuropathic pain -gabapentin 100mg daily -cymbalta 30mg twice a day 3. Muscle spasm flexeril 5mg TID 4. Bowel Regimen - colace -continue pain regimen as above -Monitor for S/E such as AMS , Lethargy/sedation, changes in respiratory function -Continue BP parameters -APS( Acute Pain services) will continue to foll ow -please call pain management for any pain-relate d concerns or questions Goal: Daily pain control to improve function and /or quality of life ([x]) Pain control until condition naturally res olves ([x]) Inpatient pain control ([x]) Improved sleep cycle ([x]) all narcotics medications will be adjusted according to the patient's medical condition during the hospital stay Alll diagnostic images/lab and medical records d uring the course of this admission as well as ASSISTANT CHIEF TRAIN DISPATCHER records reviewed Risk versus benefit of opiate medications: All r isk and benefit were reviewed with the patient and family members, risk not limited to respiratory depression, accidental overdose, risk of fall, altered menta l status, constipation, dependency, addiction, withdrawn, sudden . Plan discussed with: The pain plan of ca re has been discussed with the patient and the nursing staff. Patient is in agr eement with the following plan of care and wishes to proceed. Quest ions and concerns have been answered to the patient' s satisfaction. Patient has verbalized understan iqra. Plan discussed with: patient Electronically Signed by Emy Mayes LINK CUTTER on at 1027 RPT #:[id number] END OF REPORT 2022-02-11 [facility] 15:07:00-00:00 [facility] ([facility]) Infectious Dis. Progress Note REPORT#:[id number] REPORT STATUS: Signed DATE:02/11/22 TIME: 1507 PATIENT: PEDRO MCGREGOR UNIT #: [id number] ROOM[address]BED: [address] : [address] AGE: 66 SEX: M ATTEND: Jean-Paul Ward od, MD ADM AUTHOR: Ary Leroy MD * ALL edits or amendments must be made on the el [employer]/computer document * Subjective Chief complaint: HTN HPI: Pt is a 66yr old male with left foot osteomyelit is Patient reports: Yes: pain controlled. No: cough, diarrhea, fever , headache, nausea, shortness of breath, vomiting. Portions of this section wer e scribed by Kimberley Suggs on 02/11/22 at 1510 Objective General VS/I O: Vital Signs Date Temp Pulse Resp B/P B/P Mean Pulse Ox FiO2 02/10-02/11 97.9-98.2 69-87 14-18 100-144/55-6 7 0.0-89.5 93-98 Last Documented: Result Date Time Pulse Ox 93 02/11 1128 B/P 100/65 02/11 1128 B/P Mean 0.0 02/11 1128 O2 Delivery Nasal cannula 02/11 1128 Temp 97.9 02/11 1128 Pulse 86 02/11 1128 Resp 14 02/11 1128 O2 Flow Rate 2 02/10 2331 Vital Signs: Date Time Temp Pulse Resp B/P B/P Pulse O2 O2 F low FiO2 Mean Ox Delivery Rate 02/11 1128 97.9 86 14 100/65 0.0 93 Nasal cannula 02/11 0748 97.9 83 14 110/63 0.0 97 Nasal cannula 02/11 0426 98.2 87 15 143/63 89.5 96 02/10 2331 98.2 82 17 119/66 83 98 Nasal 2 cannula 02/10 2112 98.2 76 18 144/55 84.8 98 02/10 2040 Nasal 2 cannula 02/10 1950 97.9 69 16 117/67 83.6 98 02/10 1610 97.9 75 14 110/62 0.0 96 Nasal cannula 24 hour I O ending at 0700: 02/11 0700 02/10 1900 Intake Total Output Total 1999 Balance -2000 Number 2 Bowel Movements Output, Urine 1999 PATIENT WEIGHT: Weight (lb): Weight (oz): Weight (kg): 111.364 Physical Exam General appearance: alert, awake, oriented Wound/incision: Location: left foot wound +external fixator in place Head/Eyes: atraumatic, clear cornea, EOMI, tra l conjunctiva/sclera, normal eyelids/periorb, normocephalic, PERRL ENT: normal dentition, normal nose, normal phary nx, normal sinus Neck: full range of motion, non-tender, normal thyroid, supple/no meningismus, no bruit/NL carotids, no JVD, no masses or swell ing, no lymphadenopathy Cardiovascular: regular rate rhythm Respiratory: clear to auscultation, no distress Abdomen: non-tender, soft, n o distention, no guarding, no mass/organomegaly, no rebound Extremities: moves all, normal capillary refill, normal sensory, no edema Musculoskeletal: full range of motion, normal in spection Neuro/METAL WELDER: alert, oriented X 3 Skin: dry, intact, no rash Results Findings/Data: Laboratory Tests 02/11 02/11 02/11 02/10 02/10 1102 0750 0320 2053 1609 Chemistry Sodium (134 - 147 mEq/L) 137 Potassium (3.4 - 5.0 mEq/L) 3.4 Chloride (100 - 108 mEq/L) 102 Carbon Dioxide (21 - 33 mEq/l) 25 Anion Gap (0 - 20) 14 BUN (7 - 18 mg/dL) 8 Creatinine (0.6 - 1.3 mg/dL) 1.0 Glomerular Filtr Rate (80 - 90) 82.5 Glucose (70 - 110 mg/dL) 193 H POC Glucose (70 - 110 MG/DL) 260 H 219 H 176 H 216 H Calcium (8.0 - 10.5 mg/dL) 9.1 Phosphorus (2.5 - 4.9 MG/DL) 3.6 Magnesium (1.80 - 2.40 mg/dL) 1.75 L Laboratory Tests 02/11 0320 Hematology WBC (4.5 - 11.0 x10 3/uL) 12.4 H RBC (4.00 - 5.60 x10 6/uL) 3.49 L Hgb (12.5 - 16.9 g/dL) 9.4 L Hct (37.5 - 50.7 %) 30.3 L MCV (81.0 - 99.0 fL) 86.8 MCH (27.0 - 33.0 pg) 26.9 L MCHC (33.0 - 37.0 g/dL) 31.0 L RDW (11.5 - 14.5 %) 15.7 H Plt Count (150 - 400 x10 3/uL) 567 H MPV (7.0 - 9.0 fL) 11.0 H Neut % (Auto) (56.0 - 77.0 %) 50.6 L Lymph % (Auto) (14.0 - 32.0 %) 33.4 H Kern % (Auto) (4.8 - 9.0 %) 9.8 H Eos % (Auto) (0.3 - 3.7 %) 5.3 H Baso % (Auto) (0.0 - 2.0 %) 0.6 Neut # (Auto) (2.0 - 7.6 x10 3/uL) 6.27 Lymph # (Auto) (1.0 - 3.8 x10 3/uL) 4.13 H Kern # (Auto) (0.1 - 0.8 x10 3/uL) 1.21 H Eos # (Auto) (0.0 - 0.2 x10 3/uL) 0.65 H Baso # (Auto) (0.0 - 0.2 x10 3/uL) 0.07 Abs Immat Gran (auto) (0.00 - 0.03 x10 3/uL) 0. 04 H Add Manual Diff NO Immature Gran % (0.0 - 2.0 %) 0.3 Nucleated RBC % (0 - 0 %) 0.0 Nucleated RBCs # (Man) (0.0 - 0.1 x10 3/uL) 0.0 0 Medication(s) Ordered: Anti-Infective Agents Sig/Josefa Start time Last Medication Dose Route Stop Time Status Admin Piperacillin Sod/ 3.375 GM Q8H 02/10 0930 AC Tazobactam Sod IV 02/17 0929 1005 Sodium Chloride 100 ML Autonomic Drugs Sig/Josefa Start time Last Medication Dose Route Stop Time Status Admin Tamsulosin HCl 0.4 MG DAILY 02/10 0900 AC 02/11 PO 03/12 0859 1002 Blood Formation,Coagulation Sig/Josefa Start time Last Medication Dose Route Stop Time Status Admin Ferrous Sulfate 325 MG BID 02/09 2100 AC 02/11 PO 03/11 205 1003 Enoxaparin Sodium 40 MG DAILY 1700 02/09 1700 A C 02/10 SUBQ 03/11 1659 1809 Cardiovascular Drugs Sig/Josefa Start time Last Medication Dose Route Stop Time Status Admin Atorvastatin Calcium 80 MG BEDTIME 02/09 2100 A C 02/10 PO 03/11 2058 2114 Metoprolol Tartrate 25 MG DAILY 02/09 1700 AC 02/11 PO 03/11 1659 1003 Hydralazine HCl 10 MG Q6H PRN PRN 02/09 1615 AC IV 03/11 1614 Central Nervous System Agents Sig/Josefa Start time Last Medication Dose Route Stop Time Status Admin Magnesium Sulfate 50 ML ONCE ONE 02/10 1400 DC 02/10 IV 02/10 1559 1438 Citalopram 20 MG DAILY 02/10 0900 AC 02/11 Hydrobromide PO 03/12 0859 1002 Duloxetine HCl 30 MG DAILY 02/10 0900 AC 02/11 PO 03/12 0859 1003 Aspirin 81 MG C BK 02/10 0800 AC 02/11 PO 03/12 0759 1003 Gabapentin 300 MG BEDTIME 02/09 2100 AC 02/10 PO 03/11 205 2114 Gabapentin 100 MG BEDTIME 02/09 2100 AC 02/10 PO 03/11 205 2115 Acetaminophen 650 MG Q4H PRN PRN 02/09 1715 AC 02/09 PO 03/11 1714 2041 Hydromorphone HCl 0.5 MG Q4H PRN PRN 02/09 1715 AC IV 02/14 1714 Oxycodone/ 2 TAB Q4H PRN PRN 02/09 1715 AC 01/14 8 Acetaminophen PO 02/14 1714 2247 Tramadol HCl 100 MG Q4H PRN PRN 02/09 1615 AC 02/09 PO 02/14 1614 1823 Electrolytic, Caloric, And Tiesha Sig/Josefa Start time Last Medication Dose Route Stop Time Status Admin Furosemide 40 MG DAILY 02/10 0900 AC 02/11 PO 03/12 0859 1002 Lactulose 20 GM BID 02/10 0900 AC 02/11 PO 03/12 0859 1003 Gastrointestinal Drugs Sig/Josefa Start time Last Medication Dose Route Stop Time Status Admin Magnesium Oxide 400 MG BID 02/11 2100 AC PO 02/13 0901 Pantoprazole 40 MG DAILY 02/10 0600 AC PO 03/12 0559 0539 Ursodiol 300 MG BID 02/09 2100 AC 02/11 PO 03/11 2059 1002 Docusate Sodium 100 MG DAILY 02/09 1800 AC 12/ 0 PO 03/11 1759 1002 Ondansetron HCl 4 MG Q4H PRN PRN 02/09 1615 AC IV 03/11 1614 Hormones And Synthetic Substit Sig/Josefa Start time Last Medication Dose Route Stop Time Status Admin Glucagon 1 MG ASDIR PRN 02/10 1430 AC IM 03/12 1429 Insulin Human Lispro 10 UNIT AC BK GRACE 02/10 073 0 AC 02/11 SUBQ 03/12 0729 1410 Insulin Human Lispro 0 AC HS 02/09 1630 AC 01/15 0 SUBQ 03/11 1629 1411 Insulin Human Lispro 10 UNIT AC DIN 02/09 1630 AC 02/10 SUBQ 03/11 1629 1809 Microbiology: 02/10 1020 NASAL: MRSA DNA Surveillance Screen - COMP 02/09 1449 BLOOD: Blood Culture - RES 02/09 1447 BLOOD: Blood Culture - RES Recent Impressions: RADIOLOGY - XR FOOT 3 + V LT 02/09 1509 Report Impression - Status: SIGNED Entered: 02/09/2022 1554 IMPRESSION: External fixators obscure portions of this exam. Distal fibula shows deformity of indeterminate chronicity. Talar dome shows nonspecific lucency. Osteomyeli tis cannot be excluded. Impression By: [email or web address] - Adolph Zhou M.D. Portions of this section wer e scribed by Kimberley Suggs on 02/11/22 at 1510 Diagnosis, Assessment Plan Problem List/A P: 1. 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 4-Peripheral vascular disease Portions of this section wer e scribed by Kimberley Suggs on 02/11/22 at 1510 at 0813 RPT #:[id number] END OF REPORT 2022-02-11 [facility] 14:09:00-00:00 [facility] ([facility]) Hospitalist Progress Note REPORT#:[id number] REPORT STATUS: Signed DATE:02/11/22 TIME: 1409 PATIENT: PEDRO MCGREGOR UNIT #: [id number] ROOM/BED: [place] [address] : 54 AGE: 66 SEX: M ATTEND: Jean-Paul Ward od, MD ADM AUTHOR: Raul Yates MD * ALL edits or amendments must be made on the [employer]/computer document * Subjective Chief complaint: He is awake and alert. His Breathing is stable. LE pain is controlled with meds. Had a constipation. No CP, fever, chills. BP and HR stable. Free Text Subj Notes Free Text Subj Notes: Pt seen and examined. No new complaints. No acute events noted by nursing staff. PT states he has been to multiple hospitals for left foot wound, states "had couple of washouts". Review of Systems Free Text ROS Notes Free Text ROS Notes: 14 Point ROS reviewed and neg expect for HPI Objective General VS/I O: Laboratory Tests: 02/11 02/11 02/11 02/10 02/10 1102 0750 0320 2053 1609 Chemistry Sodium (134 - 147 mEq/L) 137 Potassium (3.4 - 5.0 mEq/L) 3.4 Chloride (100 - 108 mEq/L) 102 Carbon Dioxide (21 - 33 mEq/l) 25 Anion Gap (0 - 20) 14 BUN (7 - 18 mg/dL) 8 Creatinine (0.6 - 1.3 mg/dL) 1.0 Glomerular Filtr Rate (80 - 90) 82.5 Glucose (70 - 110 mg/dL) 193 H POC Glucose (70 - 110 MG/DL) 260 H 219 H 176 H 216 H Calcium (8.0 - 10.5 mg/dL) 9.1 Phosphorus (2.5 - 4.9 MG/DL) 3.6 Magnesium (1.80 - 2.40 mg/dL) 1.75 L Hematology WBC (4.5 - 11.0 x10 3/uL) 12.4 H RBC (4.00 - 5.60 x10 6/uL) 3.49 L Hgb (12.5 - 16.9 g/dL) 9.4 L Hct (37.5 - 50.7 %) 30.3 L MCV (81.0 - 99.0 fL) 86.8 MCH (27.0 - 33.0 pg) 26.9 L MCHC (33.0 - 37.0 g/dL) 31.0 L RDW (11.5 - 14.5 %) 15.7 H Plt Count (150 - 400 x10 3/uL) 567 H MPV (7.0 - 9.0 fL) 11.0 H Neut % (Auto) (56.0 - 77.0 %) 50.6 L Lymph % (Auto) (14.0 - 32.0 %) 33.4 H Kern % (Auto) (4.8 - 9.0 %) 9.8 H Eos % (Auto) (0.3 - 3.7 %) 5.3 H Baso % (Auto) (0.0 - 2.0 %) 0.6 Neut # (Auto) (2.0 - 7.6 x10 3/uL) 6.27 Lymph # (Auto) (1.0 - 3.8 x10 3/uL) 4.13 H Kern # (Auto) (0.1 - 0.8 x10 3/uL) 1.21 H Eos # (Auto) (0.0 - 0.2 x10 3/uL) 0.65 H Baso # (Auto) (0.0 - 0.2 x10 3/uL) 0.07 Abs Immat Gran (auto) (0.00 - 0.03 0.04 H x10 3/uL) Add Manual Diff NO Immature Gran % (0.0 - 2.0 %) 0.3 Nucleated RBC % (0 - 0 %) 0.0 Nucleated RBCs # (Man) (0.0 - 0.1 0.00 x10 3/uL) Medication(s) Ordered: Anti-Infective Agents Sig/Josefa Start time Last Medication Dose Route Stop Time Status Admin Piperacillin Sod/ 3.375 GM Q8H 02/10 930 AC Tazobactam Sod IV 02/17 0929 1005 Sodium Chloride 100 ML Autonomic Drugs Sig/Josefa Start time Last Medication Dose Route Stop Time Status Admin Tamsulosin HCl 0.4 MG DAILY 02/10 0900 AC 02/11 PO 03/12 0859 1002 Blood Formation,Coagulation Sig/Josefa Start time Last Medication Dose Route Stop Time Status Admin Ferrous Sulfate 325 MG BID 02/09 2100 AC 02/11 PO 03/11 2058 1003 Enoxaparin Sodium 40 MG DAILY 1700 02/09 1700 A C 02/10 SUBQ 03/11 1659 1809 Cardiovascular Drugs Sig/Josefa Start time Last Medication Dose Route Stop Time Status Admin Atorvastatin Calcium 80 MG BEDTIME 02/09 2100 A C 02/10 PO 03/11 2059 2114 Metoprolol Tartrate 25 MG DAILY 02/09 1700 AC 1 PO 03/11 1659 1003 Hydralazine HCl 10 MG Q6H PRN PRN 02/09 1615 AC IV 03/11 1614 Central Nervous System Agents Sig/Josefa Start time Last Medication Dose Route Stop Time Status Admin Magnesium Sulfate 50 ML ONCE ONE 02/10 1400 DC 02/10 IV 02/10 1559 1438 Citalopram 20 MG DAILY 02/10 0900 AC 02/11 Hydrobromide PO 03/12 0859 1002 Duloxetine HCl 30 MG DAILY 02/10 09 AC 02/11 PO 03/12 0859 1003 Aspirin 81 MG C BK 02/10 0800 AC 02/11 PO 03/12 0759 1003 Gabapentin 300 MG BEDTIME 02/09 2100 AC 02/10 PO 03/11 205 2114 Gabapentin 100 MG BEDTIME 02/09 2100 AC 02/10 PO 03/11 205 2115 Acetaminophen 650 MG Q4H PRN PRN 02/09 1715 AC 02/09 PO 03/11 1714 2041 Hydromorphone HCl 0.5 MG Q4H PRN PRN 02/09 1715 AC IV 02/14 1714 Oxycodone/ 2 TAB Q4H PRN PRN 02/09 1715 AC 01/14 8 Acetaminophen PO 02/14 1714 2247 Tramadol HCl 100 MG Q4H PRN PRN 02/09 1615 AC 1 04/12 PO 02/14 1614 1823 Electrolytic, Caloric, And Tiesha Sig/Josefa Start time Last Medication Dose Route Stop Time Status Admin Furosemide 40 MG DAILY 02/10 0900 AC 02/11 PO 03/12 0859 1002 Lactulose 20 GM BID 02/10 0900 AC 02/11 PO 03/12 0859 1003 Gastrointestinal Drugs Sig/Josefa Start time Last Medication Dose Route Stop Time Status Admin Magnesium Oxide 400 MG BID 02/11 2100 UNV PO 02/13 0901 Pantoprazole 40 MG DAILY 0600 02/10 0600 AC PO 03/12 0559 0539 Ursodiol 300 MG BID 02/09 2100 AC 02/11 PO 03/11 205 1002 Docusate Sodium 100 MG DAILY 02/09 1800 AC 12/3 0 PO 03/11 1759 1002 Ondansetron HCl 4 MG Q4H PRN PRN 02/09 1615 AC IV 03/11 1614 Hormones And Synthetic Substit Sig/Josefa Start time Last Medication Dose Route Stop Time Status Admin Glucagon 1 MG ASDIR PRN 02/10 1430 AC IM 03/12 1429 Insulin Human Lispro 10 UNIT AC BK GRACE 02/10 073 0 AC 02/11 SUBQ 03/12 0729 1004 Insulin Human Lispro 0 AC HS 02/09 1630 AC 12/3 0 SUBQ 03/11 1629 1004 Insulin Human Lispro 10 UNIT AC DIN 02/09 1630 AC 02/10 SUBQ 03/11 1629 1809 Recent Impressions: RADIOLOGY - XR FOOT 3 + V LT 02/09 1509 Report Impression - Status: SIGNED Entered: 02/09/2022 1554 IMPRESSION: External fixators obscure portions of this exam. Distal fibula shows deformity of indeterminate chronicity. Talar dome shows nonspecific lucency. Osteomyeli tis cannot be excluded. Impression By: [email or web address] - Adolph Zhou M.D. Vital Signs: Date Time Temp Pulse Resp B/P B/P Pulse O2 O2 F low FiO2 Mean Ox Delivery Rate 02/11 1128 36.6 86 14 100/65 0.0 93 Nasal cannula 02/11 0748 36.6 83 14 110/63 0.0 97 Nasal cannula 02/11 0426 36.8 87 15 143/63 89.5 96 02/10 2331 36.8 82 17 119/66 83 98 Nasal 2 cannula 02/10 2112 36.8 76 18 144/55 84.8 98 02/10 2040 Nasal 2 cannula 02/10 1950 36.6 69 16 117/67 83.6 98 02/10 1610 36.6 75 14 110/62 0.0 96 Nasal cannula 24 hour I O ending at 0700: 02/11 0700 02/10 1900 Intake Total Output Total 1999 Balance -1999 Number 2 Bowel Movements Output, Urine 1999 PATIENT WEIGHT: Weight (lb): Weight (oz): Weight (kg): 111.364 Physical Exam Head/Eyes: atraumatic, normocephalic, PERRLA Neck: full range of motion, normal thyroid, supp le/no meningismus Cardiovascular: normal capillary refill, normal heart sounds, regular rate rhythm Respiratory: aerating well, symmetric expansion, no distress Abdomen: normal bowel sounds, soft Genitourinary: no flank pain, no urinary cathete r Extremities: no calf tenderness, no clubbing, no cyanosis Musculoskeletal: no muscle spasm Neuro/METAL WELDER: alert, oriented X 3, CNII-XII intact Free Text Obj Notes Free Text Obj Notes: General appearance: alert, awake, oriented Head/Eyes: atraumatic, normocephalic, PERRLA Neck: full range of motion, normal thyroid, supp le/no meningismus Cardiovascular: normal capillary refill, normal heart sounds, regular rate rhythm Respiratory: aerating well, symmetric expansion, no distress Abdomen: normal bowel sounds, soft Genitourinary: no flank pain, no urinary cathete r Extremities: Left Foot Dressing C/D/I, in tuber operator al fixator. Musculoskeletal: no muscle spasm Neuro/METAL WELDER: alert, oriented X 3, CNII-XII intact Treatment Prophylaxis Treatment Prophylaxis Oxygen: room air Diagnosis, Assessment Plan Hospital course to date: ASSESSMENT AND PLAN: - Recurrent left foot osteomyelitis. - Left foot pain, status post recent procedure. - Leukocytosis. - Hypokalemia. - Hypomagnesemia. - Recently treated for bacteremia Enterococcal f aecalis. - History of hypertension. - History of hyperlipidemia. - History of depression, mood disorder. - History of diabetes type 2. - History of diabetic foot ulcer, nonhealing. - History of liver disease. PLAN: Floor. Will replace mag. Will Continue to monitor blood pressure and hear t rate. ID following for OM. Pain medication. Antiemetics. Follow labs and replace as needed. SCD for DVT prophylaxis. Continue home medication. Glycemic control, Accu-Cheks, sliding scale and diabetic diet. Monitor. X-ray concerning for OM, will defer MRI to podia try Continue Zosyn as per ID Electronically Signed by Raul Yates MD on 01/15 at 1412 RPT #:[id number] END OF REPORT 2022-02-11 [facility] 12:23:00-00:00 [facility] ([facility]) Pain Management Progress Note REPORT#:[id number] REPORT STATUS: Signed DATE:02/11/22 TIME: 1223 PATIENT: PEDRO MCGREGOR UNIT #: [id number] [place] [facility] : [place] AGE: 66 SEX: M ATTEND: Jean-Paul Ward od, MD ADM AUTHOR: Emy Mayes NP * ALL edits or amendments must be made on the el [employer]/computer document * Subjective Chief complaint: Foot Wound. Interval History 02/11/2022 Patient chart, note and event reviewed Patient is laying in bed, fully alert, awake hem dynamiccally stable Pain is manageable Mood is ok Sleep is ok. Denied insomnia constipation is managed with lactulose and colac e HPI: Patient is a 66-year-old male, multiple comorbid ities including hypertension, diabetes, depression. Tranfered from [facility] [facility]. He is here for worsening foot wound. Poor healing wound, has Ex -Fix as well. Present with severe left leg pain. Review of Systems Additional notes: Review was conducted and was negative except for what's noted in the HPI and Medical History. The following systems were revi ewed: Constitutional, cardiovascular, respiratory, gastrointes tinal, genitourinary, musculoskeletal, neurologic, psychiatric, endocrinological, and h ematological. Objective General VS/I O: Vital Signs Date Temp Pulse Resp B/P B/P Mean Pulse Ox FiO2 02/10-02/11 97.9-98.2 69-87 14-18 100-144/55-67 0.0-89.5 93-98 Last Documented: Result Date Time Pulse Ox 93 02/11 1128 B/P 100/65 02/11 1128 B/P Mean 0.0 02/11 1128 O2 Delivery Nasal cannula 02/11 1128 Temp 97.9 02/11 1128 Pulse 86 02/11 1128 Resp 14 02/11 1128 O2 Flow Rate 2 02/10 2331 24 hour I O ending at 0700: 02/11 0700 02/10 1900 Intake Total Output Total 1999 Balance -1999 Number 2 Bowel Movements Output, Urine 1999 PATIENT WEIGHT: Weight (lb): Weight (oz): Weight (kg): 111.364 Medications: Active Meds + DC'd Last 24 Hrs Glucagon (GLUCAGON) 1 MG ASDIR PRN IM Magnesium Sulfate (MAGNESIUM SULFATE 2GM/SWFI 50 ML) 50 ML ONCE ONE IV ( DC) Piperacillin Sod/Tazobactam Sod (ZOSYN 3.375GM) 3.375 GM Q8H IV Sodium Chloride (SODIUM CHLORIDE 0.9% 100 ML) 1 00 ML Citalopram Hydrobromide (CeleXA) 20 MG DAILY PO Duloxetine HCl (CYMBALTA) 30 MG DAILY PO Furosemide (LASIX) 40 MG DAILY PO Lactulose (LACTULOSE) 20 GM BID PO Tamsulosin HCl (Flomax 0.4 mg) 0.4 MG DAILY PO Aspirin (ASPIRIN) 81 MG C BK PO Insulin Human Lispro (HUMALOG) 10 UNIT AC BK GRACE SUBQ Pantoprazole (PROTONIX) 40 MG DAILY 0600 PO Atorvastatin Calcium (LIPITOR) 80 MG BEDTIME PO Ferrous Sulfate (FERROUS SULFATE) 325 MG BID PO Gabapentin (NEURONTIN) 300 MG BEDTIME PO Gabapentin (NEURONTIN) 100 MG BEDTIME PO Ursodiol (ActigalL) 300 MG BID PO Docusate Sodium (COLACE) 100 MG DAILY PO Acetaminophen (TYLENOL) 650 MG Q4H PRN PRN PO Hydromorphone HCl (DILAUDID) 0.5 MG Q4H PRN PRN IV Oxycodone/Acetaminophen (PERCOCET 5/325MG TAB) 2 TAB Q4H PRN PRN PO Enoxaparin Sodium (lovENOX) 40 MG DAILY 1700 SUB Q Metoprolol Tartrate (LOPRESSOR) 25 MG DAILY PO Insulin Human Lispro (HUMALOG) 0 AC HS SUBQ Insulin Human Lispro (HUMALOG) 10 UNIT AC DIN MARR BQ Hydralazine HCl (APRESOLINE) 10 MG Q6H PRN PRN I V Ondansetron HCl (ZOFRAN) 4 MG Q4H PRN PRN IV Tramadol HCl (ULTRAM) 100 MG Q4H PRN PRN PO Dietitian nutrition assessment The data set between the solid lines has been im ported from the dietitian's assessment. BMI Calculated: 30.7 Nutrition related diagnosis: Nutrition diagnosis details: Nutrition problem: Nutrition etiology: Nutrition signs and symptoms: Nutrition prescription: Dietitian name: Assessment completed: Physical Exam General appearance: alert, awake, oriented, no a cute distress, pleasant, conversational, mental status normal, no respira tory distress Head/eyes: atraumatic, PERRLA Neck: full range of motion, non-tender Cardiovascular: normal capillary refill, regular rate rhythm Abdomen: soft Extremities: moves all (left leg wound/ external fix) Neuro/METAL WELDER: alert Results Findings/data: Laboratory Tests: 02/11 02/11 02/11 02/10 1102 0750 0320 2053 Chemistry Sodium (134 - 147 mEq/L) 137 Potassium (3.4 - 5.0 mEq/L) 3.4 Chloride (100 - 108 mEq/L) 102 Carbon Dioxide (21 - 33 mEq/l) 25 Anion Gap (0 - 20) 14 BUN (7 - 18 mg/dL) 8 Creatinine (0.6 - 1.3 mg/dL) 1.0 Glomerular Filtr Rate (80 - 90) 82.5 Glucose (70 - 110 mg/dL) 193 H POC Glucose (70 - 110 MG/DL) 260 H 219 H 176 H Calcium (8.0 - 10.5 mg/dL) 9.1 Phosphorus (2.5 - 4.9 MG/DL) 3.6 Magnesium (1.80 - 2.40 mg/dL) 1.75 L Hematology WBC (4.5 - 11.0 x10 3/uL) 12.4 H RBC (4.00 - 5.60 x10 6/uL) 3.49 L Hgb (12.5 - 16.9 g/dL) 9.4 L Hct (37.5 - 50.7 %) 30.3 L MCV (81.0 - 99.0 fL) 86.8 MCH (27.0 - 33.0 pg) 26.9 L MCHC (33.0 - 37.0 g/dL) 31.0 L RDW (11.5 - 14.5 %) 15.7 H Plt Count (150 - 400 x10 3/uL) 567 H MPV (7.0 - 9.0 fL) 11.0 H Neut % (Auto) (56.0 - 77.0 %) 50.6 L Lymph % (Auto) (14.0 - 32.0 %) 33.4 H Kern % (Auto) (4.8 - 9.0 %) 9.8 H Eos % (Auto) (0.3 - 3.7 %) 5.3 H Baso % (Auto) (0.0 - 2.0 %) 0.6 Neut # (Auto) (2.0 - 7.6 x10 3/uL) 6.27 Lymph # (Auto) (1.0 - 3.8 x10 3/uL) 4.13 H Kern # (Auto) (0.1 - 0.8 x10 3/uL) 1.21 H Eos # (Auto) (0.0 - 0.2 x10 3/uL) 0.65 H Baso # (Auto) (0.0 - 0.2 x10 3/uL) 0.07 Abs Immat Gran (auto) (0.00 - 0.03 x10 3/uL) 0 .04 H Add Manual Diff NO Immature Gran % (0.0 - 2.0 %) 0.3 Nucleated RBC % (0 - 0 %) 0.0 Nucleated RBCs # (Man) (0.0 - 0.1 x10 3/uL) 0.0 0 02/10 1609 Chemistry POC Glucose (70 - 110 MG/DL) 216 H Diagnosis, Assessment Plan Free text A P: Assessment/Plan Daily Plan 02/11/2022 Patient assessed. Pain is Manageable, will shaye nue current pain medical management Plan 1. Acute complex pain syndrome 2/2 left leg cell ulitis -Dilaudid 0.5mg IV Q4H PRN for pain 7-10, secon d line -oxycodone 10/325 q4H PRN for pain 7-10 first l ine -Tylenol 650 mg PO Q6h for pain 1-3 2. Neuropathic pain -gabapentin 100mg daily -cymbalta 30mg twice a day 3. Muscle spasm flexeril 5mg TID 4. Bowel Regimen - colace -continue pain regimen as above -Monitor for S/E such as AMS , Lethargy/sedation, changes in respiratory function -Continue BP parameters -[facility]( Acute Pain services) will continue to foll ow -please call pain management for any pain-relate d concerns or questions Goal: Daily pain control to improve function and /or quality of life ([x]) Pain control until condition naturally res olves ([x]) Inpatient pain control ([x]) Improved sleep cycle ([x]) all narcotics medications will be adjusted according to the patient's medical condition during the hospital stay Alll diagnostic images/lab and medical records d uring the course of this admission as well as ASSISTANT CHIEF TRAIN DISPATCHER records reviewed Risk versus benefit of opiate medications: All r isk and benefit were reviewed with the patient and family members, risk not limited to respiratory depression, accidental overdose, risk of fall, altered menta l status, constipation, dependency, addiction, withdrawn, sudden . Plan discussed with: The pain plan of ca re has been discussed with the patient and the nursing staff. Patient is in agr eement with the following plan of care and wishes to proceed. Quest ions and concerns have been answered to the patient' s satisfaction. Patient has verbalized understan iqra. Plan discussed with: patient Electronically Signed by Emy Mayes LINK CUTTER on at 1239 [facility] #:[id number] END OF REPORT 2022-02-10 [id number] [facility] 15:25:00-00:[address] [place] [address] PATIENT NAME: PEDRO MCGREGOR ADMIT DATE: 02/11/22 ACCOUNT NO: [id number] ROOM NO: G.65 AGE: 66 REPORT TYPE: CONSULTATION REPORT SEX: M ADMITTING PHYSICIAN:Chelo Ward MD ATTENDING PHYSICIAN:Chelo Ward MD CONSULTATION DATE: 02/09/2022 INFECTIOUS DISEASE CONSULTATION REASON FOR CONSULTATION: Left foot osteomyelitis , history of Enterococcus faecalis bacteremia. Diabetes mellitus type 2, o n Zosyn, admitted with hypotension and elevated heart rate, evaluation and rule out infection. HISTORY OF PRESENT ILLNESS: The patient is a 66-year-old white male with a past medical history treated with diabetes me llitus type 2, history of Enterococcus faecalis bacteremia, peripheral vascular disease , initially admitted to [facility] with the left foot infection and was found to have a polymicrobial infection of the left leg with osteomyelitis, se ptic arthritis. Cultures grew E. faecalis, B. fragilis, gr am-negative rods, including Proteus. He also had E. faecalis bacteremia in November. He was on severa l different antibiotics and later on we switched all the antibiotics to Zosy n. The patient underwent debridements and PICC line placements and tuber operator al fixator placement on 01/06/2022. He was discharged to the [facility] to continue Zosyn until 02/11. At the [facility], he was complaining o f more pain, he was hypotensive, tachycardic, so he was sent back to the hospital. So, infectious disease was reconsulted. According to the Dr. Cheryl cornejo his podiatric surgeon came by yesterday and told him that he w ill be taking him to OR for washout and probable debridement of the external fixator site. The patient reports no diarrhea. Reports constipation. He re ports that he has minimal drainage from the external fixator pin sites. PAST MEDICAL HISTORY: Diabetes, hypertension, hy perlipidemia, PVD, left foot osteomyelitis, history of E. faecalis high-grade bacteremia in November, history of open reduction and internal fixation of his b imalleolar ankle fracture, external fixator placement during the last hospi talization. PAST SURGICAL HISTORY: As above. SOCIAL HISTORY: No tobacco, alcohol or d rug abuse. The patient is currently at a [facility] facility finishing antibiotics with Zosyn for 6 weeks, finishing antibiotics on 02/11. ALLERGIES: No known drug allergies. PHYSICAL EXAMINATION: GENERAL: Moderately obese, middle-aged white mal e. VITAL SIGNS: T-max of 36.8, heart rate 84, respi ration 18, blood pressure 128/63. PATIENT NAME: PEDRO MCGREGOR HEENT: Head atraumatic, normocephalic. Face is s ymmetrical. Conjunctivae are nonicteric. Oropharynx is moist. NECK: Supple. LUNGS: Clear to auscultation. HEART: Regular rate and rhythm. ABDOMEN: Good bowel sounds. EXTREMITIES: No rashes. Charcot deformity, multi ple scars on the right foot. Left foot with external fixa tor in place with no purulent drainage from the pin tracts. LABORATORY DATA: WBC 13.9, on admission, decreas ed to 11; hemoglobin 9.9, hematocrit 31, platelets 567, BUN of 11, creatin ine of 1. C-reactive protein went up to a 160, increased from 88. Sed rate wa s 108, decreased from 115 and wound cultures from the left ankle on 12/31 showed E. faecalis. 12/31 left foot culture showed E. coli and E . Enterococcus species, E. faecalis, both sensitive to Zosyn. HILLARY is less than 16. Blood cultures we re obtained, pending. ASSESSMENT AND PLAN: A 66-year-old gentleman wit h history of diabetes, left ankle bimalleolar fracture, osteomyeliti s with E. faecalis and E. coli, status post debridement and external fixator placement, on Zosyn till supposed to finish 6 weeks of Zosyn till 02/11, now is admit ender with hypotension, tachycardia. The patient has no tachycardia, no fever, no hypotension since admission, slightly elevated white cell count. T he patient is scheduled for debridement. We will keep the Zosyn 3.37 5 grams IV q.8 hours until the patient gets debridement and we strongly recommend to ge t the intraoperative cultures pathology to rule out chronic osteomyelitis. Thank you very much. We will follow. Dictated By: Ary Leroy MD Date Dictated: 02/10/2022 15:25:18 Date Transcribed: 02/10/2022 16:12:45 DOUG/FLORY Receipt ID: [id number] Authenticated by Ary Leroy MD On 023 11:22:25 AM at 1122 PATIENT NAME: PEDRO MCGREGOR 2022-02-10 [facility] 14:48:00-00:00 [facility] ([facility]) Clinical Note REPORT#:[id number] REPORT STATUS: Signed DATE:02/10/22 TIME: 1448 PATIENT: PEDRO MCGREGOR UNIT #: [id number] ROOM/BED: [place] [address] : 54 AGE: 66 SEX: M ATTEND: Jean-Paul Ward od, MD ADM AUTHOR: Ary Leroy MD * ALL edits or amendments must be made on the [email or web address] document * Clinical Note Note: pt seen,examined,dictation to follow at 0912 RPT #:[id number] END OF REPORT 2022-02-10 [facility] 13:49:00-00:00 [facility] ([facility]) Hospitalist Progress Note REPORT#:[id number] REPORT STATUS: Signed DATE:02/10/22 TIME: 134 PATIENT: PEDRO MCGREGOR UNIT #: [id number] ROOM/BED: [place] [address] : 54 AGE: 66 SEX: M ATTEND: Jean-Paul Ward od, MD ADM AUTHOR: Lexa Samson NP * ALL edits or amendments must be made on the [email or web address] document * Lexa Samson 02/10/22 1349: Subjective Chief complaint: He is awake and alert. His Breathing is stable. LE pain is controlled with meds. Had a constipation. No CP, fever, chills. BP and HR stable. Review of Systems Constitutional: Reports: fatigue, generalized weakness. Allergy/Immun: Denies: anaphylaxis, itching, rhinorrhea. ENT: Denies: ear ringing, earache, mouth pain, sinus problem. Respiratory: Denies: hemoptysis, parox nocturnal dyspnea, ple uritic pain. Cardiovascular: Denies: GIBBS (dyspnea on exertion), edema, orthop booker, palpitations, parox nocturnal dyspnea. GI: Reports: constipation. Denies: anorexia, diarrhea, GERD, hiatal hernia, rectal pain. : Denies: flank pain, frequency, hematuria, penile discharge, testicular pain. Heme: Denies: bleeding, bruising, petechiae. Neuro: Denies: change in LOC, confusion, headache, seiz ure, syncope. Objective General VS/I O: Vital Signs: Date Time Temp Pulse Resp B/P B/P Pulse O2 O2 F low FiO2 Mean Ox Delivery Rate 02/10 1121 36.6 85 14 138/67 0.0 95 Room air 02/10 0816 36.7 83 14 127/68 0.0 95 Nasal cannula 02/10 0421 36.3 82 18 113/68 0.0 91 02/10 0138 94 Nasal 2 cannula 02/10 0132 88 105/63 77 02/09 2338 36.8 84 18 128/63 0.0 92 02/09 1946 37.3 85 18 129/60 0.0 93 02/09 1601 95 15 151/69 99 96 02/09 1540 87 14 165/73 105 98 02/09 1520 84 131/65 91 95 02/09 1500 96 100/59 73 93 02/09 1423 36.7 100 16 111/70 83 94 24 hour I O ending at 0700: 02/10 0700 02/09 1900 Intake Total 1100 Output Total 2600 Balance -1500 Intake, Oral 1100 Output, Urine 2600 Patient 111.364 kg Weight Weight Bed scale Measurement Method PATIENT WEIGHT: Weight (lb): Weight (oz): Weight (kg): 111.364 Medications: Active Meds + DC'd Last 24 Hrs Piperacillin Sod/Tazobactam Sod (ZOSYN 3.375GM) 3.375 GM Q8H IV Sodium Chloride (SODIUM CHLORIDE 0.9% 100 ML) 1 00 ML Citalopram Hydrobromide (CeleXA) 20 MG DAILY PO Duloxetine HCl (CYMBALTA) 30 MG DAILY PO Furosemide (LASIX) 40 MG DAILY PO Lactulose (LACTULOSE) 20 GM BID PO Tamsulosin HCl (Flomax 0.4 mg) 0.4 MG DAILY PO Aspirin (ASPIRIN) 81 MG C BK PO Insulin Human Lispro (HUMALOG) 10 UNIT AC BK GRACE SUBQ Pantoprazole (PROTONIX) 40 MG DAILY 0600 PO Atorvastatin Calcium (LIPITOR) 80 MG BEDTIME PO Ferrous Sulfate (FERROUS SULFATE) 325 MG BID PO Gabapentin (NEURONTIN) 300 MG BEDTIME PO Gabapentin (NEURONTIN) 100 MG BEDTIME PO Ursodiol (ActigalL) 300 MG BID PO Docusate Sodium (COLACE) 100 MG DAILY PO Acetaminophen (TYLENOL) 650 MG Q4H PRN PRN PO Hydromorphone HCl (DILAUDID) 0.5 MG Q4H PRN PRN IV Oxycodone/Acetaminophen (PERCOCET 5/325MG TAB) 2 TAB Q4H PRN PRN PO Enoxaparin Sodium (lovENOX) 40 MG DAILY 1700 SUB Q Metoprolol Tartrate (LOPRESSOR) 25 MG DAILY PO Potassium Chloride (POTASSIUM CHLORIDE 20MEQ TAB .ER) 20 MEQ Q2H PO (DC) Insulin Human Lispro (HUMALOG) 0 AC HS SUBQ Insulin Human Lispro (HUMALOG) 10 UNIT AC DIN MRAR BQ Hydralazine HCl (APRESOLINE) 10 MG Q6H PRN PRN I V Ondansetron HCl (ZOFRAN) 4 MG Q4H PRN PRN IV Tramadol HCl (ULTRAM) 100 MG Q4H PRN PRN PO Piperacillin Sod/Tazobactam Sod (ZOSYN 3.375GM) 3.375 GM X1ED STA IV (DC ) Sodium Chloride (SODIUM CHLORIDE 0.9% 100 ML) 1 00 ML Sodium Chloride (SODIUM CHLORIDE 0.9%) 3,340.92 ML BOLUS ONCE STA IV (DC ) Vancomycin HCl (VANCOMYCIN HCL) 1,[address] A IV (DC) Sodium Chloride (SODIUM CHLORIDE 0.9%) 250 ML Dietitian nutrition assessment The data set between the solid lines has been im ported from the dietitian's assessment. BMI Calculated: 30.7 Nutrition related diagnosis: Nutrition diagnosis details: Nutrition problem: Nutrition etiology: Nutrition signs and symptoms: Nutrition prescription: Dietitian name: Assessment completed: Physical Exam General appearance: alert, awake, oriented Head/Eyes: atraumatic, normocephalic, PERRLA Neck: full range of motion, normal thyroid, supp le/no meningismus Cardiovascular: normal capillary refill, normal heart sounds, regular rate rhythm Respiratory: aerating well, symmetric expansion, no distress Abdomen: normal bowel sounds, soft Genitourinary: no flank pain, no urinary cathete r Extremities: no calf tenderness, no clubbing, no cyanosis Musculoskeletal: no muscle spasm Neuro/METAL WELDER: alert, oriented X 3, CNII-XII intact Results Findings/Data: Laboratory Tests 02/10 02/10 02/10 02/09 02/09 1120 0813 0554 2027 1713 Chemistry Sodium (134 - 147 mEq/L) 140 Potassium (3.4 - 5.0 mEq/L) 3.6 Chloride (100 - 108 mEq/L) 105 Carbon Dioxide (21 - 33 mEq/l) 25 Anion Gap (0 - 20) 14 BUN (7 - 18 mg/dL) 11 Creatinine (0.6 - 1.3 mg/dL) 1.0 Glomerular Filtr Rate (80 - 90) 82.5 Glucose (70 - 110 mg/dL) 167 H POC Glucose (70 - 110 MG/DL) 220 H 184 H 118 H 115 H Calcium (8.0 - 10.5 mg/dL) 9.5 Phosphorus (2.5 - 4.9 MG/DL) 3.6 Magnesium (1.80 - 2.40 mg/dL) 1.47 L 02/09 02/09 02/09 1447 1447 1447 Chemistry Sodium (134 - 147 mEq/L) 137 Potassium (3.4 - 5.0 mEq/L) 3.1 L Chloride (100 - 108 mEq/L) 98 L Carbon Dioxide (21 - 33 mEq/l) 29 Anion Gap (0 - 20) 13 BUN (7 - 18 mg/dL) 12 Creatinine (0.6 - 1.3 mg/dL) 1.0 Glomerular Filtr Rate (80 - 90) 82.5 Glucose (70 - 110 mg/dL) 140 H Lactic Acid (0.4 - 1.9 mmol/L) 1.7 Calcium (8.0 - 10.5 mg/dL) 9.6 Total Bilirubin (0.0 - 1.0 mg/dL) 0.30 AST (15 - 37 IUnit/L) 30 ALT (30 - 65 IUnit/L) 20 L Total Alk Phosphatase (20 - 125 IUnit/L) 243 H C-Reactive Protein (<10.0 mg/L) 160.0 H Total Protein (6.4 - 8.2 g/dL) 8.2 Albumin (3.4 - 5.0 g/dL) 2.20 L Laboratory Tests 02/10 02/09 0554 1447 Hematology WBC (4.5 - 11.0 x10 3/uL) 11.6 H 13.9 H RBC (4.00 - 5.60 x10 6/uL) 3.61 L 3.69 L Hgb (12.5 - 16.9 g/dL) 9.9 L 10.1 L Hct (37.5 - 50.7 %) 31.8 L 31.9 L MCV (81.0 - 99.0 fL) 88.1 86.4 MCH (27.0 - 33.0 pg) 27.4 27.4 MCHC (33.0 - 37.0 g/dL) 31.1 L 31.7 L RDW (11.5 - 14.5 %) 15.7 H 15.5 H Plt Count (150 - 400 x10 3/uL) 567 H 625 H MPV (7.0 - 9.0 fL) 10.9 H 10.8 H Neut % (Auto) (56.0 - 77.0 %) 37.7 L 56.7 Lymph % (Auto) (14.0 - 32.0 %) 46.7 H 31.8 Kern % (Auto) (4.8 - 9.0 %) 10.6 H 8.1 Eos % (Auto) (0.3 - 3.7 %) 4.1 H 2.7 Baso % (Auto) (0.0 - 2.0 %) 0.6 0.4 Neut # (Auto) (2.0 - 7.6 x10 3/uL) 4.39 7.86 H Lymph # (Auto) (1.0 - 3.8 x10 3/uL) 5.44 H 4.41 H Kern # (Auto) (0.1 - 0.8 x10 3/uL) 1.23 H 1.12 H Eos # (Auto) (0.0 - 0.2 x10 3/uL) 0.48 H 0.37 H Baso # (Auto) (0.0 - 0.2 x10 3/uL) 0.07 0.06 Abs Immat Gran (auto) (0.00 - 0.03 x10 3/uL) 0 .03 0.04 H Add Manual Diff NO NO Immature Gran % (0.0 - 2.0 %) 0.3 0.3 Nucleated RBC % (0 - 0 %) 0.0 0.0 Nucleated RBCs # (Man) (0.0 - 0.1 x10 3/uL) 0.0 0 0.00 ESR Westergren (0 - 15 mm/hr) 109 H Microbiology Date/Time Procedure - Status Source Growth 02/10 1020 MRSA DNA Surveillance Screen - COMP NASAL Radiology data: Recent Impressions: RADIOLOGY - XR FOOT 3 + V LT 02/09 1509 Report Impression - Status: SIGNED Entered: 02/09/2022 3914 IMPRESSION: External fixators obscure portions of this exam. Distal fibula shows deformity of indeterminate chronicity. Talar dome shows nonspecific lucency. Osteomyeli tis cannot be excluded. Impression By: [email or web address] - Adolph Zhou M.D. Results: labs reviewed, vital signs reviewed, vi maida signs stable, x-ray personally reviewed, current med profile rev'd Treatment Prophylaxis Treatment Prophylaxis Oxygen: room air Diagnosis, Assessment Plan Hospital course to date: ASSESSMENT AND PLAN: - Recurrent left foot osteomyelitis. - Left foot pain, status post recent procedure. - Leukocytosis. - Hypokalemia. - Hypomagnesemia. - Recently treated for bacteremia Enterococcal f aecalis. - History of hypertension. - History of hyperlipidemia. - History of depression, mood disorder. - History of diabetes type 2. - History of diabetic foot ulcer, nonhealing. - History of liver disease. PLAN: Floor. Will replace mag. Will Continue to monitor blood pressure and hear t rate. ID following for OM. Pain medication. Antiemetics. Follow labs and replace as needed. SCD for DVT prophylaxis. Continue home medication. Glycemic control, Accu-Cheks, sliding scale and diabetic diet. Monitor. Orders: Procedure Date/time Status EVAL PT HIGH COMPLEX [id number] 02/10 1349 Active PT: POCC - PT STAFF ONLY 02/10 1349 Active ADL 15 MIN 02/10 1029 Active OT: POCC - OT STAFF ONLY 02/10 1028 Active EVAL OT HIGH COMPLEX [id number] 02/10 1028 Active MRSA SCREEN SURV 02/10 1019 Complete Code status: full code Plan discussed with: patient, admitting physicia n, consultants, nurse Chelo Ward 02/10/22 1704: Attestations Physician Attestation Agree w/findings plan: Patient seen and examined, I agree with the findings and plans as documented by Lexa Samson NP Electronically Signed by Lexa Samson NP on at 1352 Electronically Signed by Chelo Ward MD on 1 at 1903 RPT #:[id number] END OF REPORT 2022-02-10 [facility] 13:22:00-00:00 [facility] ([facility]) Pain Management Progress Note REPORT#:[id number] REPORT STATUS: Signed DATE:02/10/22 TIME: 1322 PATIENT: PEDRO MCGREGOR UNIT #: [id number] ROOM/BED: [place] [address] : 54 AGE: 66 SEX: M ATTEND: Jean-Paul Ward od, MD ADM AUTHOR: Emy Mayes NP * ALL edits or amendments must be made on the [employer]/computer document * Subjective Chief complaint: Foot Wound. Interval History 02/10/2022 Patient chart, note and event reviewed Patient is laying in bed, fully alert, awake hem dynamiccally stable Pain is manageable Mood is ok Sleep is ok. Denied insomnia no constipation HPI: Patient is a 66-year-old male, multiple comorbid ities including hypertension, diabetes, depression. Tranfered from [facility]. He is here for worsening foot wound. Poorly healing wound, has Ex-Fix as well. Present with severe left leg pain. Review of Systems Additional notes: Review was conducted and was negative except for what's noted in the HPI and Medical History. The following systems were revi ewed: Constitutional, cardiovascular, respiratory, gastrointes tinal, genitourinary, musculoskeletal, neurologic, psychiatric, endocrinological, and h ematological. Objective General VS/I O: Vital Signs Date Temp Pulse Resp B/P B/P Mean Pulse Ox FiO2 02/09-02/10 97.3-99.1 82-100 14-18 100-165/59-7 3 0.0-105 91-98 Last Documented: Result Date Time Pulse Ox 95 02/10 112 B/P 138/67 02/10 112 B/P Mean 0.0 02/10 112 O2 Delivery Room air 02/10 112 Temp 97.9 02/10 112 Pulse 85 02/10 1121 Resp 14 02/10 112 O2 Flow Rate 2 02/10 0138 24 hour I O ending at 0700: 02/10 0700 02/09 1900 Intake Total 1100 Output Total 2600 Balance -1500 Intake, Oral 1100 Output, Urine 2600 Patient 111.364 kg Weight Weight Bed scale Measurement Method PATIENT WEIGHT: Weight (lb): Weight (oz): Weight (kg): 111.364 Medications: Active Meds + DC'd Last 24 Hrs Piperacillin Sod/Tazobactam Sod (ZOSYN 3.375GM) 3.375 GM Q8H IV Sodium Chloride (SODIUM CHLORIDE 0.9% 100 ML) 1 00 ML Citalopram Hydrobromide (CeleXA) 20 MG DAILY PO Duloxetine HCl (CYMBALTA) 30 MG DAILY PO Furosemide (LASIX) 40 MG DAILY PO Lactulose (LACTULOSE) 20 GM BID PO Tamsulosin HCl (Flomax 0.4 mg) 0.4 MG DAILY PO Aspirin (ASPIRIN) 81 MG C BK PO Insulin Human Lispro (HUMALOG) 10 UNIT AC BK GRACE SUBQ Pantoprazole (PROTONIX) 40 MG DAILY 0600 PO Atorvastatin Calcium (LIPITOR) 80 MG BEDTIME PO Ferrous Sulfate (FERROUS SULFATE) 325 MG BID PO Gabapentin (NEURONTIN) 300 MG BEDTIME PO Gabapentin (NEURONTIN) 100 MG BEDTIME PO Ursodiol (ActigalL) 300 MG BID PO Docusate Sodium (COLACE) 100 MG DAILY PO Acetaminophen (TYLENOL) 650 MG Q4H PRN PRN PO Hydromorphone HCl (DILAUDID) 0.5 MG Q4H PRN PRN IV Oxycodone/Acetaminophen (PERCOCET 5/325MG TAB) 2 TAB Q4H PRN PRN PO Enoxaparin Sodium (lovENOX) 40 MG DAILY 1700 SUB Q Metoprolol Tartrate (LOPRESSOR) 25 MG DAILY PO Potassium Chloride (POTASSIUM CHLORIDE 20MEQ TAB .ER) 20 MEQ Q2H PO (DC) Insulin Human Lispro (HUMALOG) 0 AC HS SUBQ Insulin Human Lispro (HUMALOG) 10 UNIT AC DIN MARR BQ Hydralazine HCl (APRESOLINE) 10 MG Q6H PRN PRN I V Ondansetron HCl (ZOFRAN) 4 MG Q4H PRN PRN IV Tramadol HCl (ULTRAM) 100 MG Q4H PRN PRN PO Piperacillin Sod/Tazobactam Sod (ZOSYN 3.375GM) 3.375 GM X1ED STA IV (DC ) Sodium Chloride (SODIUM CHLORIDE 0.9% 100 ML) 1 00 ML Sodium Chloride (SODIUM CHLORIDE 0.9%) 3,340.92 ML BOLUS ONCE STA IV (DC ) Vancomycin HCl (VANCOMYCIN HCL) 1,[address] A IV (DC) Sodium Chloride (SODIUM CHLORIDE 0.9%) 250 ML Dietitian nutrition assessment The data set between the solid lines has been im ported from the dietitian's assessment. BMI Calculated: 30.7 Nutrition related diagnosis: Nutrition diagnosis details: Nutrition problem: Nutrition etiology: Nutrition signs and symptoms: Nutrition prescription: Dietitian name: Assessment completed: Physical Exam General appearance: alert, awake, oriented, no a cute distress, pleasant, conversational, mental status normal, no respira tory distress Head/eyes: atraumatic, PERRLA Neck: full range of motion, non-tender Cardiovascular: normal capillary refill, regular rate rhythm Abdomen: soft Extremities: moves all (left leg wound/ external fix) Neuro/METAL WELDER: alert Results Findings/data: Laboratory Tests: 02/10 02/10 02/10 02/09 02/09 1120 0813 0554 2028 1713 Chemistry Sodium (134 - 147 mEq/L) 140 Potassium (3.4 - 5.0 mEq/L) 3.6 Chloride (100 - 108 mEq/L) 105 Carbon Dioxide (21 - 33 mEq/l) 25 Anion Gap (0 - 20) 14 BUN (7 - 18 mg/dL) 11 Creatinine (0.6 - 1.3 mg/dL) 1.0 Glomerular Filtr Rate (80 - 90) 82.5 Glucose (70 - 110 mg/dL) 167 H POC Glucose (70 - 110 MG/DL) 220 H 184 H 118 H 115 H Calcium (8.0 - 10.5 mg/dL) 9.5 Phosphorus (2.5 - 4.9 MG/DL) 3.6 Magnesium (1.80 - 2.40 mg/dL) 1.47 L Hematology WBC (4.5 - 11.0 x10 3/uL) 11.6 H RBC (4.00 - 5.60 x10 6/uL) 3.61 L Hgb (12.5 - 16.9 g/dL) 9.9 L Hct (37.5 - 50.7 %) 31.8 L MCV (81.0 - 99.0 fL) 88.1 MCH (27.0 - 33.0 pg) 27.4 MCHC (33.0 - 37.0 g/dL) 31.1 L RDW (11.5 - 14.5 %) 15.7 H Plt Count (150 - 400 x10 3/uL) 567 H MPV (7.0 - 9.0 fL) 10.9 H Neut % (Auto) (56.0 - 77.0 %) 37.7 L Lymph % (Auto) (14.0 - 32.0 %) 46.7 H Kern % (Auto) (4.8 - 9.0 %) 10.6 H Eos % (Auto) (0.3 - 3.7 %) 4.1 H Baso % (Auto) (0.0 - 2.0 %) 0.6 Neut # (Auto) (2.0 - 7.6 x10 3/uL) 4.39 Lymph # (Auto) (1.0 - 3.8 x10 3/uL) 5.44 H Kern # (Auto) (0.1 - 0.8 x10 3/uL) 1.23 H Eos # (Auto) (0.0 - 0.2 x10 3/uL) 0.48 H Baso # (Auto) (0.0 - 0.2 x10 3/uL) 0.07 Abs Immat Gran (auto) (0.00 - 0.03 0.03 x10 3/uL) Add Manual Diff NO Immature Gran % (0.0 - 2.0 %) 0.3 Nucleated RBC % (0 - 0 %) 0.0 Nucleated RBCs # (Man) (0.0 - 0.1 0.00 x10 3/uL) 02/09 02/09 02/09 1447 1447 1447 Chemistry Sodium (134 - 147 mEq/L) 137 Potassium (3.4 - 5.0 mEq/L) 3.1 L Chloride (100 - 108 mEq/L) 98 L Carbon Dioxide (21 - 33 mEq/l) 29 Anion Gap (0 - 20) 13 BUN (7 - 18 mg/dL) 12 Creatinine (0.6 - 1.3 mg/dL) 1.0 Glomerular Filtr Rate (80 - 90) 82.5 Glucose (70 - 110 mg/dL) 140 H Lactic Acid (0.4 - 1.9 mmol/L) 1.7 Calcium (8.0 - 10.5 mg/dL) 9.6 Total Bilirubin (0.0 - 1.0 mg/dL) 0.30 AST (15 - 37 IUnit/L) 30 ALT (30 - 65 IUnit/L) 20 L Total Alk Phosphatase (20 - 125 IUnit/L) 243 H C-Reactive Protein (<10.0 mg/L) 160.0 H Total Protein (6.4 - 8.2 g/dL) 8.2 Albumin (3.4 - 5.0 g/dL) 2.20 L Hematology WBC (4.5 - 11.0 x10 3/uL) 13.9 H RBC (4.00 - 5.60 x10 6/uL) 3.69 L Hgb (12.5 - 16.9 g/dL) 10.1 L Hct (37.5 - 50.7 %) 31.9 L MCV (81.0 - 99.0 fL) 86.4 MCH (27.0 - 33.0 pg) 27.4 MCHC (33.0 - 37.0 g/dL) 31.7 L RDW (11.5 - 14.5 %) 15.5 H Plt Count (150 - 400 x10 3/uL) 625 H MPV (7.0 - 9.0 fL) 10.8 H Neut % (Auto) (56.0 - 77.0 %) 56.7 Lymph % (Auto) (14.0 - 32.0 %) 31.8 Kern % (Auto) (4.8 - 9.0 %) 8.1 Eos % (Auto) (0.3 - 3.7 %) 2.7 Baso % (Auto) (0.0 - 2.0 %) 0.4 Neut # (Auto) (2.0 - 7.6 x10 3/uL) 7.86 H Lymph # (Auto) (1.0 - 3.8 x10 3/uL) 4.41 H Kern # (Auto) (0.1 - 0.8 x10 3/uL) 1.12 H Eos # (Auto) (0.0 - 0.2 x10 3/uL) 0.37 H Baso # (Auto) (0.0 - 0.2 x10 3/uL) 0.06 Abs Immat Gran (auto) (0.00 - 0.03 x10 3/uL) 0 .04 H Add Manual Diff NO Immature Gran % (0.0 - 2.0 %) 0.3 Nucleated RBC % (0 - 0 %) 0.0 Nucleated RBCs # (Man) (0.0 - 0.1 x10 3/uL) 0.0 0 ESR Westergren (0 - 15 mm/hr) 109 H Microbiology: Date/Time Procedure - Status Source Growth 02/10 1020 MRSA DNA Surveillance Screen - COMP NASAL 02/09 1449 Blood Culture - RECD BLOOD 02/09 1447 Blood Culture - RECD BLOOD Recent Impressions: RADIOLOGY - XR FOOT 3 + V LT 02/09 1509 Report Impression - Status: SIGNED Entered: 02/09/2022 7261 IMPRESSION: External fixators obscure portions of this exam. Distal fibula shows deformity of indeterminate chronicity. Talar dome shows nonspecific lucency. Osteomyeli tis cannot be excluded. Impression By: [email or web address] - Adolph Zhou M.D. Diagnosis, Assessment Plan Free text A P: Assessment/Plan Daily Plan 02/10/2022 Patient assessed. Pain is Manageable, will shaye nue current pain medical management Plan 1. Acute complex pain syndrome 2/2 left leg cell ulitis -Dilaudid 0.5mg IV Q4H PRN for pain 7-10, secon d line -oxycodone 10/325 q4H PRN for pain 7-10 first l ine -Tylenol 650 mg PO Q6h for pain 1-3 2. Neuropathic pain -gabapentin 100mg daily -cymbalta 30mg twice a day 3. Muscle spasm flexeril 5mg TID 4. Bowel Regimen - colace -continue pain regimen as above -Monitor for S/E such as AMS , Lethargy/sedation, changes in respiratory function -Continue BP parameters -APS( Acute Pain services) will continue to foll ow -please call pain management for any pain-relate d concerns or questions Goal: Daily pain control to improve function and /or quality of life ([x]) Pain control until condition naturally res olves ([x]) Inpatient pain control ([x]) Improved sleep cycle ([x]) all narcotics medications will be adjusted according to the patient's medical condition during the hospital stay Alll diagnostic images/lab and medical records d uring the course of this admission as well as ASSISTANT CHIEF TRAIN DISPATCHER records reviewed Risk versus benefit of opiate medications: All r isk and benefit were reviewed with the patient and family members, risk not limited to respiratory depression, accidental overdose, risk of fall, altered menta l status, constipation, dependency, addiction, withdrawn, sudden . Plan discussed with: The pain plan of ca re has been discussed with the patient and the nursing staff. Patient is in agr eement with the following plan of care and wishes to proceed. Quest ions and concerns have been answered to the patient' s satisfaction. Patient has verbalized understan iqra. Plan discussed with: patient Electronically Signed by Emy Mayes NP on at 1239 RPT #:[id number] END OF REPORT 2022-02-09 [facility] 16:35:00-00:00 [facility] ([facility]) Pain Management Consult Note REPORT#:[id number] REPORT STATUS: Signed DATE:02/09/22 TIME: 1635 PATIENT: PEDRO MCGREGOR UNIT #: [id number] ROOM/BED: [facility] [place] : 54 AGE: 66 SEX: M ATTEND: Jean-Paul Ward od, MD ADM AUTHOR: Lidia Tran MD * ALL edits or amendments must be made on the el [employer]/computer document * History of Present Illness Primary Care Physician: CHELO WARD HPI: Requesting clinician: Chelo Ross Reason for consult: Acute complex pain syndrome for evaluation and management Chief complaint: FOOT WOUND HPI Patient is a 66-year-old male, multiple comorbid ities including hypertension, diabetes, depression. [facility] facility. He is here for worsening foot wound. Poorly healing, has Ex-Fix as well. Prese nt with severe left leg pain. Patient stated he need some medicine for constip ation Pain history: Location: Pain history: Location: left leg wound Radiation: left leg Onset: Sudden Duration: weeks Pain severity: 7/10 Nature of pain: aching Exacerbated by: movement Relieved by: nothing Associated conditions:NA Review of Systems Additional notes: Review was conducted and was negative except for what's noted in the HPI and Medical History. The following systems were revi ewed: Constitutional, cardiovascular, respiratory, gastrointes tinal, genitourinary, musculoskeletal, neurologic, psychiatric, endocrinological, and h ematological. History Past History Past Medical History: Reports: Depression/mood disorder, Hypertension. Allergies: Coded Allergies: hydrocodone (Mild, NAUSIATED 01/05/22) Objective Physical Exam VS/I O: Last Documented: Result Date Time Pulse Ox 96 02/09 1601 B/P 151/69 02/09 1601 B/P Mean 99 02/09 1601 Pulse 95 02/09 1601 Resp 15 02/09 1601 Temp 36.7 02/09 1423 PATIENT WEIGHT: Weight (lb): Weight (oz): Weight (kg): 111.364 General appearance: alert, awake, oriented, no a cute distress, pleasant, conversational, mental status normal, no respira tory distress Head/eyes: atraumatic, PERRLA Neck: full range of motion, non-tender Cardiovascular: normal capillary refill, regular rate rhythm Abdomen: soft Extremities: moves all (left leg wound/ external fix) Neuro/METAL WELDER: alert Results Findings/data: Recent Impressions: RADIOLOGY - XR FOOT 3 + V LT 02/09 1509 Report Impression - Status: SIGNED Entered: 02/09/2022 4629 IMPRESSION: External fixators obscure portions of this exam. Distal fibula shows deformity of indeterminate chronicity. Talar dome shows nonspecific lucency. Osteomyeli tis cannot be excluded. Impression By: [email or web address] - Adolph Zhou M.D. Laboratory Tests: 02/09 02/09 02/09 1447 1447 1447 Chemistry Sodium (134 - 147 mEq/L) 137 Potassium (3.4 - 5.0 mEq/L) 3.1 L Chloride (100 - 108 mEq/L) 98 L Carbon Dioxide (21 - 33 mEq/l) 29 Anion Gap (0 - 20) 13 BUN (7 - 18 mg/dL) 12 Creatinine (0.6 - 1.3 mg/dL) 1.0 Glomerular Filtr Rate (80 - 90) 82.5 Glucose (70 - 110 mg/dL) 140 H Lactic Acid (0.4 - 1.9 mmol/L) 1.7 Calcium (8.0 - 10.5 mg/dL) 9.6 Total Bilirubin (0.0 - 1.0 mg/dL) 0.30 AST (15 - 37 IUnit/L) 30 ALT (30 - 65 IUnit/L) 20 L Total Alk Phosphatase (20 - 125 IUnit/L) 243 H C-Reactive Protein (<10.0 mg/L) 160.0 H Total Protein (6.4 - 8.2 g/dL) 8.2 Albumin (3.4 - 5.0 g/dL) 2.20 L Hematology WBC (4.5 - 11.0 x10 3/uL) 13.9 H RBC (4.00 - 5.60 x10 6/uL) 3.69 L Hgb (12.5 - 16.9 g/dL) 10.1 L Hct (37.5 - 50.7 %) 31.9 L MCV (81.0 - 99.0 fL) 86.4 MCH (27.0 - 33.0 pg) 27.4 MCHC (33.0 - 37.0 g/dL) 31.7 L RDW (11.5 - 14.5 %) 15.5 H Plt Count (150 - 400 x10 3/uL) 625 H MPV (7.0 - 9.0 fL) 10.8 H Neut % (Auto) (56.0 - 77.0 %) 56.7 Lymph % (Auto) (14.0 - 32.0 %) 31.8 Kern % (Auto) (4.8 - 9.0 %) 8.1 Eos % (Auto) (0.3 - 3.7 %) 2.7 Baso % (Auto) (0.0 - 2.0 %) 0.4 Neut # (Auto) (2.0 - 7.6 x10 3/uL) 7.86 H Lymph # (Auto) (1.0 - 3.8 x10 3/uL) 4.41 H Kern # (Auto) (0.1 - 0.8 x10 3/uL) 1.12 H Eos # (Auto) (0.0 - 0.2 x10 3/uL) 0.37 H Baso # (Auto) (0.0 - 0.2 x10 3/uL) 0.06 Abs Immat Gran (auto) (0.00 - 0.03 x10 3/uL) 0. 04 H Add Manual Diff NO Immature Gran % (0.0 - 2.0 %) 0.3 Nucleated RBC % (0 - 0 %) 0.0 Nucleated RBCs # (Man) (0.0 - 0.1 x10 3/uL) 0.0 0 ESR Westergren (0 - 15 mm/hr) 109 H Microbiology: Date/Time Procedure - Status Source Growth 02/09 1449 Blood Culture - RECD BLOOD 02/09 1447 Blood Culture - RECD BLOOD Recent Impressions: RADIOLOGY - XR FOOT 3 + V LT 02/09 1509 Report Impression - Status: SIGNED Entered: 02/09/2022 3963 IMPRESSION: External fixators obscure portions of this exam. Distal fibula shows deformity of indeterminate chronicity. Talar dome shows nonspecific lucency. Osteomyeli tis cannot be excluded. Impression By: [email or web address] - Adolph Zhou M.D. Diagnosis, Assessment Plan Free text A P: Assessment/Plan Patient assessed. Will treat right foot wound wi th IV and PO short acting opioids PRN and scheduled Tylenol, Gabapentin, c ymbalta for neuropathic pain. Plan 1. Acute complex pain syndrome 2/2 left leg cell ulitis -Dilaudid 0.5mg IV Q4H PRN for pain 7-10, secon d line -oxycodone 10/325 q4H PRN for pain 7-10 first l ine -Tylenol 650 mg PO Q6h for pain 1-3 2. Neuropathic pain -gabapentin 100mg daily -cymbalta 30mg twice a day 3. Muscle spasm flexeril 5mg TID 4. Bowel Regimen - colace -start pain regimen as above -Monitor for S/E such as AMS , Lethargy/sedation, changes in respiratory function -Continue BP parameters -APS( Acute Pain services) will continue to foll ow -please call pain management for any pain-relate d concerns or questions Goal: Daily pain control to improve function and /or quality of life ([x]) Pain control until condition naturally res olves ([x]) Inpatient pain control ([x]) Improved sleep cycle ([x]) all narcotics medications will be adjusted according to the patient's medical condition during the hospital stay Alll diagnostic images/lab and medical records d uring the course of this admission as well as ASSISTANT CHIEF TRAIN DISPATCHER records reviewed Risk versus benefit of opiate medications: All r isk and benefit were reviewed with the patient and family members, risk not limited to respiratory depression, accidental overdose, risk of fall, altered menta l status, constipation, dependency, addiction, withdrawn, sudden . Plan discussed with: The pain plan of ca re has been discussed with the patient and the nursing staff. Patient is in agr eement with the following plan of care and wishes to proceed. Quest ions and concerns have been answered to the patient' s satisfaction. Patient has verbalized understan iqra. Plan discussed with: patient at 7824 RPT #:[id number] END OF REPORT 2022-02-09 [facility] 16:10:00-00:00 [facility] ([facility]) Clinical Note REPORT#:[id number] REPORT STATUS: Signed DATE:02/09/22 TIME: 1610 PATIENT: PEDRO MCGREGOR UNIT #: [id number] [place] [facility] AGE: 66 SEX: M ATTEND: Max Ward MD ADM AUTHOR: Lexa Samson NP * ALL edits or amendments must be made on the el [employer]/computer document * Lexa Samson 02/09/22 1610: Clinical Note Note: H P # [id number] Chelo Ward 02/10/22 1704: Clinical Note Note: Patient seen and examined, I agree with the findings and plans as documented by Lexa Samson NP Electronically Signed by Lexa Samson NP on at 1611 Electronically Signed by Chelo Ward MD on 1 at 1901 RPT #:[id number] END OF REPORT 2022-02-09 [id number] [facility] 16:10:00-00:[address] [place] [address] PATIENT NAME: PEDRO MCGREGOR ADMIT DATE: 02/09/22 ACCOUNT NO: [id number] ROOM NO: [facility] [place] AGE: 66 REPORT TYPE: HISTORY AND PHYSICAL SEX: M ADMITTING PHYSICIAN:Chelo Ward MD ATTENDING PHYSICIAN:Chelo Ward MD ADMISSION DATE: 02/09/2022 14:24:00 CHIEF COMPLAINT: Low blood pressure and elevated heart rate. HISTORY OF PRESENT ILLNESS: This is a 66-year-ol d male with a past medical history of a left foot osteomyelitis, nonhealing wound on the left foot, recently treated for the Enterococcal faecalis b acteremia, history of hypertension, diabetes type 2, liver disease, he art disease, diabetic neuropathy, morbid obesity, UTI, came to the Emergency Room from the SNF for the low blood pressure and elevated heart rate. The patient recently discharged from the hospital to the SNF after he wa s treated for bacteremia, Enterococcal faecalis and a left foot osteomyelitis. He was s ent to SNF on Zosyn 3.375 g q.8. The patient also had an open reduction of b imalleolar ankle fracture/external fixation application of the ti biotalar disarticulation and subluxation and bimalleolar ankle fracture. The patient also had bilateral lower extremity arteriogram. The patient is curr ently awake, alert, oriented x3, following commands. His blood pressure is st able. His heart rate is also stable. He denies any nausea, vomiting. ALLERGIES: NO KNOWN ALLERGIES. PAST MEDICAL HISTORY: Hypertension, hype rlipidemia, diabetes type 2, PVD, left foot osteomyelitis. PAST SURGICAL HISTORY: Unremarkable. FAMILY HISTORY: Noncontributory to current illne ss. SOCIAL HISTORY: No smoking, drinking, or use of illicit drugs. MEDICATIONS: Per MAR, reviewed and reconciled. REVIEW OF SYSTEMS: All 14-point systems reviewed , pertinent positive and negative listed in HPI as above, otherwise negat deyvi. PHYSICAL EXAMINATION: GENERAL: The patient is awake, following command s. VITAL SIGNS: Blood pressure is 151/69, pulse is 95, temperature is 36.8, oxygen saturation 98%, respirations 18. HEENT: Normocephalic, atraumatic. NECK: Supple. CARDIOVASCULAR: Regular rhythm, S1, S2 present. RESPIRATORY: The patient is on room air. No sign s of wheezing or crackles. PATIENT NAME: PEDRO MCGREGOR GASTROINTESTINAL: Abdomen round, soft, nontender , bowel sounds present. GENITOURINARY: No sign of hematuria. MUSCULOSKELETAL: No signs of clubbing, cyanosis. ENDOCRINE: Stable. PSYCHIATRIC: Stable. LABORATORY DATA: WBC 13.9, R BC 3.69, hemoglobin 10.1, hematocrit 31.9, platelet is 625. Chemistry: Sodium is 137, potassium 3.1, chloride 98, carbon dioxide 29, anion gap 13, BUN is 12, creatinine 1.0, glu cose is 140, calcium is 9.6. Lactic acid 1.7, total bilirubin 0.3, AST 30, AL T 20, alkaline phosphatase is 243. C-reactive protein 160. Troponin 8.2, album in 2.2. IMAGING STUDIES: Chest x-ray results reviewed. ASSESSMENT AND PLAN: 1. Recurrent left foot osteomyelitis. 2. Left foot pain, status post recent procedure. 3. Leukocytosis. 4. Hypokalemia. 5. Recently treated for bacteremia Enterococcal faecalis. 6. History of hypertension. 7. History of hyperlipidemia. 8. History of depression, mood disorder. 9. History of diabetes type 2. 10. History of diabetic foot ulcer, nonhealing. 11. History of liver disease. PLAN: 1. Admit to the floor. 2. Continue to monitor blood pressure and heart rate. 3. We will consult ID. 4. Pain medication. 5. Antiemetics. 6. Follow labs and replace as needed. 7. SCD for DVT prophylaxis. 8. Continue home medication. 9. Glycemic control, Accu-Cheks, sliding scale a nd diabetic diet. 10. Monitor. After assessment, discussed plan with the patien t. The patient already finished the antibiotic for the Enterococcal faecalis bacteremia and left foot osteomyelitis. Dictated By: Lexa Samson NP for Chelo Ward MD Date Dictated: 02/09/2022 16:10:55 Date Transcribed: 02/09/2022 19:09:13 [facility] Receipt ID: [id number] PATIENT NAME: PEDRO MCGREGOR Authenticated by Chelo Ward MD On 02/09 08:09:50 PM Authenticated by Lexa Samson On 02/10/2022 06: 07:43 AM at 0809 Electronically Signed by Lexa Samson NP on at 0608 PATIENT NAME: PEDRO MCGREGOR 2022-02-09 [facility] 14:35:00-00:00 [facility] ([facility]) EMERGENCY PROVIDER REPORT REPORT#:[id number] REPORT STATUS: Signed DATE:02/09/22 TIME: 1435 PATIENT: PEDRO MCGREGOR UNIT #: [id number] [place] [facility] AGE: 66 SEX: M PCP PHYS: Hayden Yates DO SERVICE AUTHOR: Kendrick Grayson MD * ALL edits or amendments must be made on the el [employer]/computer document * HPI-General Illness Free Text HPI Notes Free Text HPI Notes 66-year-old male, multiple comorbidities includi ng hypertension, diabetes, depression. From [facility] facility, here for worsening foot wound. Poorly healing, has Ex-Fix as well. In route, EM S notes hypotension, tachycardia, afebrile. Remainder of history limi ender due to patient mental status General Initial Greet Date/Time 02/09/22 1432 PCP Dweik Presentation Chief Complaint Foot wound Review of Systems ROS Statements Unable to Obtain ROS Altered mental status, Therese ent condition Review of Systems Musculoskeletal Reports: Extremity pain, Extremity swelling. Skin Reports: Ulceration. Past Medical History - Adult Stated Complaint FOOT WOUND Allergies Coded Allergies: hydrocodone (Mild, NAUSIATED 01/05/22) Home Medications Active Scripts PIPERACILLIN/TAZOBACTAM (ZOSYN) 3.375 GM IV Q8H PIPERACILLIN/TAZOBACTAM (ZOSYN) 3.375 GM IV Q8H #30 GM Prov: 01/14/22 GABAPENTIN (NEURONTIN) 300 MG PO BEDTIME GABAPENTIN (NEURONTIN) 300 MG PO BEDTIME #30 CA P Prov: 01/14/22 traMADol (ULTRAM) 50 MG PO Q4H PRN PRN PAIN SCAL E 4-6 traMADol (ULTRAM) 50 MG PO Q4H PRN PRN PAIN SCA LE 4-6 #30 TAB Prov: 01/14/22 FUROSEMIDE (LASIX) 40 MG PO DAILY FUROSEMIDE (LASIX) 40 MG PO DAILY #30 TAB Prov: 01/14/22 FERROUS SULFATE (FEOSOL) 325 MG PO BID FERROUS SULFATE (FEOSOL) 325 MG PO BID #60 TABS Ref 1 Prov: 01/14/22 Reported Medications URSODIOL (ACTIGALL) AMITRIPTYLINE (ELAVIL) 25 MG PO DAILY OMEPRAZOLE ER (PriLOSEC) 40 MG PO DAILY ENOXAPARIN (LOVENOX) 40 MG SQ DAILY METOPROLOL TARTRATE (LOPRESSOR) 25 MG PO ONCE PE R DAY ASPIRIN 81 MG PO DAILY ATORVASTATIN (LIPITOR) 80 MG PO DAILY CITALOPRAM (CeleXA) 40 MG PO DAILY INSULIN LISPRO (HumaLOG) 10 UNITS SQ AC BK GRACE HYDROcodone/APAP (HYDROcodone/APAP 5/325 ) 1 TAB PO Q6H PRN PRN PAIN SCALE 7-10 INSULIN GLARGINE (LANTUS SOLOSTAR (15mL)) 35 UNI TS SUBQ BEDTIME TAMSULOSIN ER (FLOMAX) 0.4 MG PO DAILY INSULIN LISPRO (HumaLOG) 10 UNITS SUBQ AC DIN Review of Nursing Notes Rev avail, and agree Past Medical History: Reports: Depression/mood disorder, Hypertension. Additional Medical History HTN, HLD, Dm type II, Diabetic foot ulcer, Liver disease Alcohol Use Denies EtOH use Drug Use Denies recreational drugs Smoking status for patients 13 years old or olde r: Unknown,if ever smoked Physical Exam Vital Signs Vital Signs First Documented: Result Date Time Pulse Ox 94 02/09 1423 B/P 111/70 02/09 1423 B/P Mean 83 02/09 142 Temp 36.7 02/09 142 Pulse 100 02/09 142 Resp 16 02/09 1423 Last Documented: Result Date Time Pulse Ox 95 02/09 1520 B/P 131/65 02/09 1520 B/P Mean 91 02/09 1520 Pulse 84 02/09 152 Temp 36.7 02/09 142 Resp 16 02/09 1423 Review of Vital Signs Reviewed Basic Physical Exam Basic PE GEN: Well appearing /NAD, HEAD: Atraumatic/NC, EYES: PERRL, conj clear, ENT: Membranes moist, NECK: Supple, RESP: No res p distress, CV: Reg rate rhythm, ABD: Soft/non-tender , EXT: No gross abnormality, SKIN: No rashes, warm/ dry, NEURO: gross movement NL, PSYCH: NL thought content Physical Exam General/Const Text/Dict Notes Chronically ill-appearing Resp/Chest Respiratory/Chest Breath sounds NL, Breath soun ds = bilat, No respiratory distress, No rales, No rhonchi, No wheezing Cardiovascular Text/Dict Notes Tachycardia Abdomen/GI Abdomen/GI Soft, Non-tender, No guarding, No re bound MS Lower Extrem Text/Dict Notes Left lower extremity in Ex-Fix, poorly healing Neurologic Text/Dict Notes Slow to respond, lethargic. Answers basic questi ons, reactive Interpretation Diagnostics Lab Results Interpretation Results Laboratory Tests 02/09/22 1447: [Embedded Image Not Available] Laboratory Tests: 02/09 02/09 02/09 1447 1447 1447 Chemistry Sodium (134 - 147 mEq/L) 137 Potassium (3.4 - 5.0 mEq/L) 3.1 L Chloride (100 - 108 mEq/L) 98 L Carbon Dioxide (21 - 33 mEq/l) 29 Anion Gap (0 - 20) 13 BUN (7 - 18 mg/dL) 12 Creatinine (0.6 - 1.3 mg/dL) 1.0 Glomerular Filtr Rate (80 - 90) 82.5 Glucose (70 - 110 mg/dL) 140 H Lactic Acid (0.4 - 1.9 mmol/L) 1.7 Calcium (8.0 - 10.5 mg/dL) 9.6 Total Bilirubin (0.0 - 1.0 mg/dL) 0.30 AST (15 - 37 IUnit/L) 30 ALT (30 - 65 IUnit/L) 20 L Total Alk Phosphatase (20 - 125 IUnit/L) 243 H C-Reactive Protein (<10.0 mg/L) 160.0 H Total Protein (6.4 - 8.2 g/dL) 8.2 Albumin (3.4 - 5.0 g/dL) 2.20 L Hematology WBC (4.5 - 11.0 x10 3/uL) 13.9 H RBC (4.00 - 5.60 x10 6/uL) 3.69 L Hgb (12.5 - 16.9 g/dL) 10.1 L Hct (37.5 - 50.7 %) 31.9 L MCV (81.0 - 99.0 fL) 86.4 MCH (27.0 - 33.0 pg) 27.4 MCHC (33.0 - 37.0 g/dL) 31.7 L RDW (11.5 - 14.5 %) 15.5 H Plt Count (150 - 400 x10 3/uL) 625 H MPV (7.0 - 9.0 fL) 10.8 H Neut % (Auto) (56.0 - 77.0 %) 56.7 Lymph % (Auto) (14.0 - 32.0 %) 31.8 Kern % (Auto) (4.8 - 9.0 %) 8.1 Eos % (Auto) (0.3 - 3.7 %) 2.7 Baso % (Auto) (0.0 - 2.0 %) 0.4 Neut # (Auto) (2.0 - 7.6 x10 3/uL) 7.86 H Lymph # (Auto) (1.0 - 3.8 x10 3/uL) 4.41 H Kern # (Auto) (0.1 - 0.8 x10 3/uL) 1.12 H Eos # (Auto) (0.0 - 0.2 x10 3/uL) 0.37 H Baso # (Auto) (0.0 - 0.2 x10 3/uL) 0.06 Abs Immat Gran (auto) (0.00 - 0.03 x10 3/uL) 0. 04 H Add Manual Diff NO Immature Gran % (0.0 - 2.0 %) 0.3 Nucleated RBC % (0 - 0 %) 0.0 Nucleated RBCs # (Man) (0.0 - 0.1 x10 3/uL) 0. 00 ESR Westergren (0 - 15 mm/hr) 109 H Microbiology: Date/Time Procedure - Status Source Growth 02/09 144 Blood Culture - RES BLOOD 02/09 1447 Blood Culture - RES BLOOD Recent Impressions: RADIOLOGY - XR FOOT 3 + V LT 02/09 1509 Report Impression - Status: SIGNED Entered: 02/09/2022 1554 IMPRESSION: External fixators obscure portions of this exam. Distal fibula shows deformity of indeterminate chronicity. Talar dome shows nonspecific lucency. Osteomyeli tis cannot be excluded. Impression By: [email or web address] - Adolph Zhou M.D. Re-Evaluation MDM Free Text MDM Notes Free Text MDM Notes Review of records show antione jones was admitted in earlier this month for bacteremia , recurrent Enterococcal Faecalis, sepsis due to osteomyelitis failing outpatient treatment. -We will initiate sepsis work-up including fluid s, antibiotics, cultures, lactate. Antibiotics to cover osteomyelitis and postop/MRSA ED Course Medication(s) Ordered Medication(s) Ordered: Anti-Infective Agents Sig/Josefa Start time Last Medication Dose Route Stop Time Status Admin Piperacillin Sod/ 3.375 GM X1ED STA 02/09 1434 DC 02/09 Tazobactam Sod IV 02/09 1503 1512 Sodium Chloride 100 ML Vancomycin HCl 1,000 MG X1ED STA 02/09 1434 AC 02/09 Sodium Chloride 250 ML IV 02/09 1533 1512 Electrolytic, Caloric, And Tiesha Sig/Josefa Start time Last Medication Dose Route Stop Time Status Admin Sodium Chloride 3,340.92 ML BOLUS ONCE STA 01/14 8 1434 DC 02/09 IV 02/09 1435 1512 Patient Discharge Departure Vital Signs/Condition Vital Signs First Documented: Result Date Time Pulse Ox 94 02/09 1423 B/P 111/70 02/09 1423 B/P Mean 83 02/09 142 Temp 36.7 02/09 142 Pulse 100 02/09 1423 Resp 16 02/09 1423 Last Documented: Result Date Time Pulse Ox 95 02/09 1520 B/P 131/65 02/09 1520 B/P Mean 91 02/09 1520 Pulse 84 02/09 1520 Temp 36.7 02/09 1423 Resp 16 02/09 1423 All vital signs available at the time of this en try have been reviewed. Clinical Impression Clinical Impression Primary Impression: Sepsis Secondary Impressions: Osteomyelitis Disposition Decision Admit Admit Physician Name Chelo Ward MD )( Admission Accepts Yes )( Accepted Time 1524 )( Accepted Date 02/09/22 Call Information agrees with eval, agrees with plan Supervising Physician Note MidLv Saw Pt Alone I have reviewed the PA/LINK CUTTER's note and plan of car e. I was available for consultation as needed at al l times during the patient's visit in the emergency department. I agree with the clinical impression , plan and disposition. Electronically Signed by Kendrick Grayson MD on at 1921 [facility] #:[id number] END OF REPORT 2022-01-21 [id number] [facility] 14:38:00-00:[address] [place] [address] PATIENT NAME: PEDRO MCGREGOR ADMIT DATE: 12/30/21 ACCOUNT NO: [id number] ROOM NO: [id number] AGE: 66 REPORT TYPE: 360 - QUERY RESPONSE DOCUMENT SEX: M ADMITTING PHYSICIAN:Chelo Ward MD ATTENDING PHYSICIAN:Chelo Ward MD Provider Query QUERY TEXT: Condition General 360MD Query related questions should be directed to: Jessica dumont [facility] [place] Coding Query Help-line Based on your medical judgment and clinical garima cators below, please document the diagnosis for which you are evaluating, treating or monitoring for this pat ient (UTI due to bhardwaj, UTI not due to bhardwaj, Unspecified , or other more appropriate diagnosis. The patient's Clinical Indicators include: Urology Progress Note 01/14/2022 (2)-HPI:Urologi janis consultation was sought for the evaluation of t he retention of urine and Bhardwaj catheter. General appearance: On bhardwaj 03/17 non weight bearing of foot - UA pos itive for LE, UTI - Hypomagnesemia-replaced - PVD. Cefepime 2 GM Inj Genitourinary: urinary catheter in place, good u rine output Options provided: -- Respond - Create new note now -- Dismiss - Not applicable / Not valid -- Dismiss - Clinically unable to determine / Un known -- Assign to another provider QUERY RESPONSE: UTI not due to bhardwaj Query created by: Duran Mathew on 2021 5:45 AM at 1438 PATIENT NAME: PEDRO MCGREGOR 2022-01-14 [facility] 17:48:00-00:00 [facility] ([facility]) Pain Management Progress Note REPORT#:[id number] REPORT STATUS: Signed DATE:01/14/22 TIME: 1748 PATIENT: PEDRO MCGREGOR UNIT #: [id number] ROOM[facility]BED: [facility] [place] : 54 AGE: 66 SEX: M ATTEND: Jean-Paul Ward od, MD ADM AUTHOR: Betty Tejeda APRN * ALL edits or amendments must be made on the [employer]/computer document * Subjective Chief Complaint: Left foot pain Comments: Laying in bed, resting comfortably. Pain appears well-controlled. NAD. Review of Systems Free Text ROS Notes Free Text ROS Notes: 12 point ROS reviewed and negative unless stated otherwise Objective General VS/I O: Last Documented: Result Date Time Pulse Ox 93 01/14 1701 B/P 111/63 01/14 1701 B/P Mean 79.0 01/14 1701 Pulse 90 01/14 1701 Resp 16 01/14 1701 O2 Delivery Room air 01/14 437 Temp 36.8 01/14 437 O2 Flow Rate 2 01/11 2200 PATIENT WEIGHT: Weight (lb): Weight (oz): Weight (kg): 100.000 Medications: Active Meds + DC'd Last 24 Hrs Hydromorphone HCl (DILAUDID) 0.5 MG DAILY PRN TN N IV Lactulose (LACTULOSE) 20 GM BID PO Lidocaine (LIDODERM) 1 PATCH DAILY TOPICAL Hydromorphone HCl (DILAUDID) 0.5 MG Q4H PRN PRN PO (DC) Tramadol HCl (ULTRAM) 50 MG Q4H PRN PRN PO Phenol (CHLORASEPTIC) 1 SPRAY Q4H PRN PRN PO Piperacillin Sod/Tazobactam Sod (ZOSYN 3.375GM) 3.375 GM Q8H IV Sodium Chloride (SODIUM CHLORIDE 0.9% 100 ML) 1 00 ML Sodium Chloride (SODIUM CHLORIDE) 10 ML BID IV Sodium Chloride (SODIUM CHLORIDE) 10 ML ASDIR TN N IV Sodium Hypochlorite (DAKIN'S 1/4 STR (0.125%) 47 3ML) 1 APPLIC DAILY TOPICAL Acetaminophen (TYLENOL) 650 MG Q4H PRN PRN PO Dextrose/Water (DEXTROSE 10% IN WATER) 125 ML DIR PRN IV (CKD) Dextrose/Water (DEXTROSE 10% IN WATER) 250 ML DIR PRN IV (CKD) Glucagon (GLUCAGON) 1 MG ASDIR PRN IM Gabapentin (NEURONTIN) 300 MG BEDTIME PO Insulin Human Lispro (HUMALOG) 10 UNIT AC BK GRACE SUBQ Furosemide (LASIX) 40 MG DAILY PO Loratadine (CLARITIN) 10 MG DAILY PO Amitriptyline HCl (ELAVIL) 25 MG BEDTIME PO Atorvastatin Calcium (LIPITOR) 80 MG DAILY@2100 PO Ursodiol (ActigalL) 300 MG C BK DIN PO Insulin Human Lispro (HUMALOG) 10 UNIT AC DIN MARR BQ Insulin Human Lispro (HUMALOG) 0 AC HS SUBQ Sterile Water (WATER FOR IRRIGATION) DRESSING CH SHERICE ASDIR PRN IRR Aspirin (ASPIRIN) 81 MG DAILY PO Citalopram Hydrobromide (CeleXA) 20 MG DAILY PO Metoprolol Tartrate (LOPRESSOR) 25 MG DAILY PO Tamsulosin HCl (Flomax 0.4 mg) 0.4 MG DAILY PO Ondansetron HCl (ZOFRAN) 4 MG Q6H PRN PRN IV Physical Exam General appearance: sleeping comfortably Head/Eyes: atraumatic, EOMI, normocephalic ENT: normal nose, normal sinus, moist mucosal me mbranes Neck: no masses or swelling, supple/no meningism us Cardiovascular: normal capillary refill, regular rate rhythm Respiratory: no distress, aerating well, symmetr ic expansion Abdomen: non-tender, no rebound, no distention Extremities: no edema, no clubbing, no c yanosis, decreased range of motion (of LLE 2/2 pain) Neuro/METAL WELDER: alert, oriented X 3, normal speech Skin: dry, intact, warm Results Results: no new labs, vital signs stable Diagnosis, Assessment Plan Free text A P: Pedro Mcgregor is a 66yo male with PMH of DM II, HTN, CAD, HLD, and diabetic ulcers that was admitted with a left foot infection. 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 Dilaudid IV 0.5mg Qday PRN severe pain with woun d care Tramadol 50mg PO Q6hrs PRN moderate pain Gabapentin 300mg PO QHS for neuropathic pain Lidoderm to sternum for neuropathic pain s/p reduction of fracture with external fixation on 01/05/22 Left foot infection - abx, podiatry following, p ending left BKA or LLE arteriogram on 01/05/22 Bacteremia - s/p YOLA on 01/04/22 DM - SSI HLD - Lipitor HTN - Metoprolol BPH - Flomax CAD - ASA 81mg Bowel regimen - Lactulose DC planning to SNF Please hold all narcotics for SBP < 90mm hg, Respiratory rate <8bpm, or altered mentation. Please call with any questions or concerns Thank you for allowing me to participate in this patient's care. Plan of care discussed with Dr. Posada and Dr. Felipe kumar, patient, primary team, and RN. All questions answered. Patient agrees w ith above plan of care. All diagnostic studies, ASSISTANT CHIEF TRAIN DISPATCHER, and labs in the pas t 24 hours reviewed and interpreted with Dr. Posada and Dr. Carter. [place] ASSISTANT CHIEF TRAIN DISPATCHER verified 12/31/21 at 2337 Electronically Signed by Kanwal Carter DO on 1 04/02/21 at 1751 [facility] #:[id number] END OF REPORT 2022-01-14 [facility] 15:54:00-00:00 [facility] ([facility]) Podiatry Progress Note REPORT#:[id number] REPORT STATUS: Signed DATE:01/14/22 TIME: 1554 PATIENT: PEDRO MCGREGOR UNIT #: [id number] ROOM/BED: [place] [address] : 54 AGE: 66 SEX: M ATTEND: Jean-Paul Ward od, MD ADM AUTHOR: Faby Wharton DPM * ALL edits or amendments must be made on the [email or web address] document * Subjective Chief complaint: left foot infection HPI: FOOT ULCER Objective General VS: Last Documented: Result Date Time Pulse Ox 96 01/14 1134 B/P 109/67 01/14 1134 B/P Mean 81.2 01/14 1134 Pulse 80 01/14 1134 Resp 16 01/14 1134 O2 Delivery Room air 01/14 0437 Temp 36.8 01/14 0437 O2 Flow Rate 2 01/11 2200 PATIENT WEIGHT: Weight (lb): Weight (oz): Weight (kg): 100.000 Medications: Active Meds + DC'd Last 24 Hrs Hydromorphone HCl (DILAUDID) 0.5 MG DAILY PRN TN N IV Lactulose (LACTULOSE) 20 GM BID PO Lidocaine (LIDODERM) 1 PATCH DAILY TOPICAL Hydromorphone HCl (DILAUDID) 0.5 MG Q4H PRN PRN PO (DC) Tramadol HCl (ULTRAM) 50 MG Q4H PRN PRN PO Phenol (CHLORASEPTIC) 1 SPRAY Q4H PRN PRN PO Piperacillin Sod/Tazobactam Sod (ZOSYN 3.375GM) 3.375 GM Q8H IV Sodium Chloride (SODIUM CHLORIDE 0.9% 100 ML) 1 00 ML Sodium Chloride (SODIUM CHLORIDE) 10 ML BID IV Sodium Chloride (SODIUM CHLORIDE) 10 ML ASDIR TN N IV Sodium Hypochlorite (DAKIN'S / STR (0.125%) 47 3ML) 1 APPLIC DAILY TOPICAL Acetaminophen (TYLENOL) 650 MG Q4H PRN PRN PO Dextrose/Water (DEXTROSE 10% IN WATER) 125 ML DIR PRN IV (CKD) Dextrose/Water (DEXTROSE 10% IN WATER) 250 ML DIR PRN IV (CKD) Glucagon (GLUCAGON) 1 MG ASDIR PRN IM Gabapentin (NEURONTIN) 300 MG BEDTIME PO Insulin Human Lispro (HUMALOG) 10 UNIT AC BK GRACE SUBQ Furosemide (LASIX) 40 MG DAILY PO Loratadine (CLARITIN) 10 MG DAILY PO Amitriptyline HCl (ELAVIL) 25 MG BEDTIME PO Atorvastatin Calcium (LIPITOR) 80 MG DAILY@2100 PO Ursodiol (ActigalL) 300 MG C BK DIN PO Insulin Human Lispro (HUMALOG) 10 UNIT AC DIN MARR BQ Insulin Human Lispro (HUMALOG) 0 AC HS SUBQ Sterile Water (WATER FOR IRRIGATION) DRESSING CH SHERICE ASDIR PRN IRR Aspirin (ASPIRIN) 81 MG DAILY PO Citalopram Hydrobromide (CeleXA) 20 MG DAILY PO Metoprolol Tartrate (LOPRESSOR) 25 MG DAILY PO Tamsulosin HCl (Flomax 0.4 mg) 0.4 MG DAILY PO Ondansetron HCl (ZOFRAN) 4 MG Q6H PRN PRN IV I O: 24 hour I O ending at 0700: 12/02 0700 12/01 1900 Intake Total 200 500.00 Output Total 1100 Balance 200 -600.00 Intake, IV 200.00 Intake, Oral 200 Intake, Oral 300 Supplement Output, Urine 1100 Dietitian nutrition assessment The data set between the solid lines has been im ported from the dietitian's assessment. BMI Calculated: 26.8 Nutrition related diagnosis: Nutrition diagnosis details: Nutrition problem: Increased nutrient needs Nutrition etiology: wound healing Nutrition signs and symptoms: wounds left foot a nd ankle Nutrition prescription: 1. R ecommend 2200 ADA diet as tolerated 2. Encourage po intake and honor pt preferen steven 3. Recommend Gerry BID to promote wound healing. 4. Pt refused ONS and snacks, Dietitian name: Lary Crowder, MS, RD, L D Assessment completed: 01/13/22 Physical Exam Wound/incision: Location: left foot Site condition: drainage, dressing saturated, e cchymosis, erythema, eschar, necrotic tissue, odor, left foot dp/pt 1/4 light touch decreased. wound anterior left ankle. seropurulent imelda inage. ulcer extensive from medial left hindfoot to medial left midfoot. into marr b q layer. no ability to invert the left foot. foot is deformed. it is severely everted. no lymphang itis. LE vascular pulse assess: 1+ L posterior tibialis, 1+ L dorsalis pedis Results Findings/Data: Laboratory Tests: 01/14 01/14 01/14 01/14 1500 1133 0721 0610 Chemistry POC Glucose (70 - 110 MG/DL) 252 H 186 H C-Reactive Protein (<10.0 mg/L) 88.0 H Hematology WBC (4.5 - 11.0 x10 3/uL) 11.7 H RBC (4.00 - 5.60 x10 6/uL) 3.42 L Hgb (12.5 - 16.9 g/dL) 9.6 L Hct (37.5 - 50.7 %) 30.5 L MCV (81.0 - 99.0 fL) 89.2 MCH (27.0 - 33.0 pg) 28.1 MCHC (33.0 - 37.0 g/dL) 31.5 L RDW (11.5 - 14.5 %) 15.6 H Plt Count (150 - 400 x10 3/uL) 574 H MPV (7.0 - 9.0 fL) 11.9 H Neut % (Auto) (56.0 - 77.0 %) 48.1 L Lymph % (Auto) (14.0 - 32.0 %) 35.5 H Kern % (Auto) (4.8 - 9.0 %) 12.4 H Eos % (Auto) (0.3 - 3.7 %) 2.8 Baso % (Auto) (0.0 - 2.0 %) 0.9 Neut # (Auto) (2.0 - 7.6 x10 3/uL) 5.61 Lymph # (Auto) (1.0 - 3.8 x10 3/uL) 4.14 H Kern # (Auto) (0.1 - 0.8 x10 3/uL) 1.45 H Eos # (Auto) (0.0 - 0.2 x10 3/uL) 0.33 H Baso # (Auto) (0.0 - 0.2 x10 3/uL) 0.10 Abs Immat Gran (auto) (0.00 - 0.03 x10 3/uL) 0. 04 H Add Manual Diff NO Immature Gran % (0.0 - 2.0 %) 0.3 Nucleated RBC % (0 - 0 %) 0.0 Nucleated RBCs # (Man) (0.0 - 0.1 x10 3/uL) 0. 00 ESR Westergren (0 - 15 mm/hr) 115 H Serology SARS-CoV-2 Ag (Rapid) (Negative) Negative 01/13 1624 Chemistry POC Glucose (70 - 110 MG/DL) 309 H 327 H Results: labs reviewed Diagnosis, Assessment Plan Free Text A P: DM with neuropathy PVD wound left ankle ulcer left foot leukocytosis cellulitis left foot ankle fracture and dislocation veraflo wound vac mwf IV abx culture left ankle and left foot--results discus sed with patient continue IV abx, ID on board Veraflo wound vac applied to LLE left foot xray: no gas. no erosions. offloading boots. arterial studies--discussed with patient Plan Dispo: Snf may go to [facility] with regualr vac Electronically Signed by Faby Wharton DPM on 07/05 at 1922 RPT #:[id number] END OF REPORT 2022-01-14 [facility] 12:01:00-00:00 [facility] ([facility]) Discharge Summary REPORT#:[id number] REPORT STATUS: Signed DATE:01/14/22 TIME: 1201 PATIENT: PEDRO MCGREGOR UNIT #: [id number] ROOM/BED: [facility] : 54 AGE: 66 SEX: M ATTEND: Jean-Paul Ward od, MD ADM AUTHOR: Lexa Samson NP * ALL edits or amendments must be made on the [employer]/computer document * PCP PCP PCP: PCP: Hayden Yates DO Discharge to: SNF General Information Date of admission: Observation Start Date: Date of admission: 12/30/21 Discharge date: 01/14/22 Discharge diagnosis: - Bacteremia , recurrent Enterococcal Faecalis b acteremia. - Sepsis POA due to left foot OM. - Left Foot OM failed Outpt treatment. - Non healing wound of Left foot. - Hyponatremia - Left foot pain due to OM. - HX of HTN, HLD, DM type II, Liver disa se, Heart disease, diabetes neuropathy - Over weight 26.8. - On bhardwaj 2/2 non weight bearing of foot - UA positive for LE, UTI - Hypomagnesemia-replaced - PVD. Hospital course: 66-year-old female with a history of hypertensio n, diabetes, hyperlipidemia, osteomyelitis, and CAD who is here today for his left foot infection. He has been admitted to [facility] al system multiple times for this complaint. He has seen a custom clothier, Dr. Wharton, and instructed to come to emergency room for further evaluation and treatment. He was treated with IV ABX for Bacteremia , recurrent Enterococcal Faecalis bacterem ia/Left Foot OM. His Sepsis POA due to left foot OM. He failed for Left Foot OM failed Outpt treatmen t. He had a Open reduction of bimalleolar ankle fracture/External fixation pankaj lication of tibiotalar disarticulation and subluxat ion and bimalleolar ankle fracture. He had Bilateral lower extremity arteriogram, Left anteri or tibial artery 0.9 laser atherectomy with 3.0 mm balloon angioplasty and Left posteri or tibial artery and tibioperoneal trunk artery 0.9 laser atherectomy with 3.0 mm balloon angioplasty. He will go to SNF for wound care an d IV ABX per ID. Pt. condition on discharge: improved, stable Allergies: Allergies: hydrocodone (Coded, Mild, NAUSIATED, 01/05/22) Med Rec Med Rec Discharge meds: Continue taking these medications: ASPIRIN (ASPIRIN) 81 MG TAB.CHEW 81 MILLIGRAM ORAL DAILY. ATORVASTATIN (LIPITOR) 80 MG TAB 80 MILLIGRAM ORAL DAILY. CITALOPRAM (CeleXA) 40 MG TAB 40 MILLIGRAM ORAL DAILY. ENOXAPARIN (LOVENOX) 40 MG/0.4 ML DISP.SYRIN 40 MILLIGRAM SUBCUTANE. DAILY. Instructions: EVERY MORNING FOR 21 DAYS STARTING 12/30/2021 INSULIN LISPRO (HumaLOG) 100 UNIT/ML VIAL 10 UNITS SUBCUTANE. BEFORE BREAKFAST AND LUNCH. HYDROcodone/APAP (HYDROcodone/APAP 5/325) 5 MG-3 25 MG TAB 1 TABLET ORAL EVERY 6 HOURS NEEDED. as neede d for PAIN SCALE 7-10 INSULIN GLARGINE (LANTUS SOLOSTAR (15mL)) 100 UN IT/ML (3 ML) PEN.INJCTR 35 UNITS SUBCUTANEOUS BEDTIME. METOPROLOL TARTRATE (LOPRESSOR) 25 MG TAB 25 MILLIGRAM ORAL ONCE PER DAY TAMSULOSIN ER (FLOMAX) 0.4 MG CAP.SR.24H 0.4 MILLIGRAM ORAL DAILY. INSULIN LISPRO (HumaLOG) 100 UNIT/ML VIAL 10 UNITS SUBCUTANEOUS BEFORE DINNER. URSODIOL (ACTIGALL) 300 MG CAP TWICE DAILY. AMITRIPTYLINE (ELAVIL) 25 MG TAB 25 MILLIGRAM ORAL DAILY. OMEPRAZOLE ER (PriLOSEC) 40 MG CAP.DR 40 MILLIGRAM ORAL DAILY. Start taking the following new medications: GABAPENTIN (NEURONTIN) 300 MG CAP 300 MILLIGRAM ORAL BEDTIME. Qty = 30 No Refills traMADol (ULTRAM) 50 MG TAB 50 MILLIGRAM ORAL EVERY 4 HOURS NEEDED. as n eeded for PAIN SCALE 4-6 Qty = 30 No Refills FUROSEMIDE (LASIX) 40 MG TAB 40 MILLIGRAM ORAL DAILY. Qty = 30 No Refills PIPERACILLIN/TAZOBACTAM (ZOSYN) 3.375 GRAM VIAL 3.375 GRAM INTRAVENOUS EVERY 8 HOURS. Qty = 30 No Refills Objective VS/I O Last Documented: Result Date Time Pulse Ox 96 01/14 1134 B/P 109/67 01/14 1134 B/P Mean 81.2 01/14 1134 Pulse 80 01/14 1134 Resp 16 01/14 1134 O2 Delivery Room air 01/14 437 Temp 36.8 01/14 437 O2 Flow Rate 2 01/11 2200 24 hour I O ending at 0700: 01/14 0700 01/13 1900 Intake Total 200 500.00 Output Total 1100 Balance 200 -600.00 Intake, IV 200.00 Intake, Oral 200 Intake, Oral 300 Supplement Output, Urine 1100 PATIENT WEIGHT: Weight (lb): Weight (oz): Weight (kg): 100.000 General appearance: alert, awake, oriented Head/Eyes: atraumatic, normocephalic, PERRLA Neck: full range of motion, no bruit/NL carotids , no JVD, no lymphadenopathy Cardiovascular: normal capillary refill, regular rate rhythm, normal heart sounds Respiratory: clear to auscultation, no distress, aerating well, symmetric expansion GI: soft, non-tender Extremities: moves all, no clubbing, no cyanosis Musculoskeletal: full range of motion Neuro/METAL WELDER: alert, oriented X 3 Results Findings/Data: Laboratory Tests: 01/14 01/14 01/14 01/13 1133 0721 0610 1954 Chemistry POC Glucose (70 - 110 MG/DL) 252 H 186 H 309 H C-Reactive Protein (<10.0 mg/L) 88.0 H Hematology WBC (4.5 - 11.0 x10 3/uL) 11.7 H RBC (4.00 - 5.60 x10 6/uL) 3.42 L Hgb (12.5 - 16.9 g/dL) 9.6 L Hct (37.5 - 50.7 %) 30.5 L MCV (81.0 - 99.0 fL) 89.2 MCH (27.0 - 33.0 pg) 28.1 MCHC (33.0 - 37.0 g/dL) 31.5 L RDW (11.5 - 14.5 %) 15.6 H Plt Count (150 - 400 x10 3/uL) 574 H MPV (7.0 - 9.0 fL) 11.9 H Neut % (Auto) (56.0 - 77.0 %) 48.1 L Lymph % (Auto) (14.0 - 32.0 %) 35.5 H Kern % (Auto) (4.8 - 9.0 %) 12.4 H Eos % (Auto) (0.3 - 3.7 %) 2.8 Baso % (Auto) (0.0 - 2.0 %) 0.9 Neut # (Auto) (2.0 - 7.6 x10 3/uL) 5.61 Lymph # (Auto) (1.0 - 3.8 x10 3/uL) 4.14 H Kern # (Auto) (0.1 - 0.8 x10 3/uL) 1.45 H Eos # (Auto) (0.0 - 0.2 x10 3/uL) 0.33 H Baso # (Auto) (0.0 - 0.2 x10 3/uL) 0.10 Abs Immat Gran (auto) (0.00 - 0.03 x10 3/uL) 0. 04 H Add Manual Diff NO Immature Gran % (0.0 - 2.0 %) 0.3 Nucleated RBC % (0 - 0 %) 0.0 Nucleated RBCs # (Man) (0.0 - 0.1 x10 3/uL) 0. 00 ESR Westergren (0 - 15 mm/hr) 115 H 01/13 01/13 1624 1316 Chemistry POC Glucose (70 - 110 MG/DL) 327 H 272 H Results: labs reviewed, vital signs reviewed, vi maida signs stable, current med profile rev'd Treatments Procedures Lab: Hematology last 24 hrs: 01/14 0610 Hematology WBC (4.5 - 11.0 x10 3/uL) 11.7 H Hgb (12.5 - 16.9 g/dL) 9.6 L Hct (37.5 - 50.7 %) 30.5 L Plt Count (150 - 400 x10 3/uL) 574 H Neut % (Auto) (56.0 - 77.0 %) 48.1 L Discharge Instructions PCP )( Discharge to: Care Home Facility Discharge Instructions Additional Discharge Routines: PCP Follow-Up, Co nsultant Follow-Up )( Diet: Diabetic, Cardiac )( Activity: Resume Normal Activity, As Tolerate d Follow-up Appointments PCP follow up: PCP: Hayden Yates DO PCP follow up timeframe: In 2-3 weeks Consulting provider 1: Provider 1: Faby Wharton DPM Specialty: Podiatry Consult follow up timeframe: In 2-3 weeks Consulting provider 2: Provider 2: Adin Lopez MD Specialty: Vascular Surgery Follow up timeframe: In 2-3 weeks Electronically Signed by Lexa Samson NP on 04/06 at 1205 Electronically Signed by Chelo Ward MD on 1 03/28/21 at 9834 RPT #:[id number] END OF REPORT 2022-01-14 [facility] 09:19:00-00:00 [facility] ([facility]) Infectious Dis. Progress Note REPORT#:[id number] REPORT STATUS: Signed DATE:01/14/22 TIME: 918 PATIENT: PEDRO MCGREGOR UNIT #: [id number] ROOM/BED: [place] [address] : 54 AGE: 66 SEX: M ATTEND: Jean-Paul Ward od, MD ADM AUTHOR: Ary Leroy MD * ALL edits or amendments must be made on the [email or web address] document * Subjective Chief complaint: LEFT FOOT INFECTION HPI: This is a 66-year-old male p atient with history of peripheral vascular disease, type 2 diabetes and neuropat hy who has been admitted for a left foot infection. He was admitted earlier this month to [facility] and was found to have a complicated gas-forming polymicrobial in fection of the left leg including osteomyelitis and septic arthritis of the left foot and ankle. His wound cultures grew Ente rococcus faecalis B fragilis, and gram-negative rods including Proteus. He also had Enterococcus faecalis bacteremia in November. He was treated multiple times with appropriate a ntibiotics but was thought to lack source control and was recommended BKA at t hat time. His blood cultures are now again growing Enteroc occus species. Patient reports: No: cough, diarrhea. Portions of this section wer e scribed by Kimberley Suggs on 01/14/22 at 6484 Objective General VS/I O: Vital Signs Date Temp Pulse Resp B/P B/P Mean Pulse Ox FiO2 01/13-01/14 98.1-98.2 78-102 14-16 104-126/57-71 73.0-89.0 94-97 Last Documented: Result Date Time Pulse Ox 97 01/14 722 B/P 104/67 01/14 722 B/P Mean 79.3 01/14 722 Pulse 102 01/14 722 Resp 16 01/14 722 O2 Delivery Room air 01/14 437 Temp 98.2 01/14 437 O2 Flow Rate 2 01/11 2200 Vital Signs: Date Time Temp Pulse Resp B/P B/P Pulse O2 O2 F low FiO2 Mean Ox Delivery Rate 01/14 722 102 16 104/67 79.3 97 01/14 0437 98.2 81 14 126/71 89.0 94 Room air 01/14 0011 98.2 88 14 121/64 83.0 94 Room air 01/13 195 98.2 79 14 112/61 77.6 95 Room air 01/13 1625 98.1 80 15 113/65 81.1 96 Room air 01/13 1316 98.2 78 15 104/57 73.0 97 Room air 24 hour I O ending at 0700: 01/14 0700 01/13 1900 Intake Total 200 500.00 Output Total 1100 Balance 200 -600.00 Intake, IV 200.00 Intake, Oral 200 Intake, Oral 300 Supplement Output, Urine 1100 PATIENT WEIGHT: Weight (lb): Weight (oz): Weight (kg): 100.000 Physical Exam General appearance: awake Wound/incision: Location: Left foot and ankle ulcers dressing saturated Head/Eyes: atraumatic, clear cornea ENT: moist mucosal membranes, normal dentition Neck: full range of motion, non-tender Cardiovascular: normal heart sounds, regular rat e rhythm Respiratory: clear to auscultation, aerating wel l Abdomen: non-tender, normal bowel sounds Skin: dry, intact, no rash Results Findings/Data: Laboratory Tests 01/14 0610 1954 1624 1316 Chemistry POC Glucose (70 - 110 MG/DL) 186 H 309 H 327 H 272 H C-Reactive Protein (<10.0 mg/L) 88.0 H Laboratory Tests 01/14 610 Hematology WBC (4.5 - 11.0 x10 3/uL) 11.7 H RBC (4.00 - 5.60 x10 6/uL) 3.42 L Hgb (12.5 - 16.9 g/dL) 9.6 L Hct (37.5 - 50.7 %) 30.5 L MCV (81.0 - 99.0 fL) 89.2 MCH (27.0 - 33.0 pg) 28.1 MCHC (33.0 - 37.0 g/dL) 31.5 L RDW (11.5 - 14.5 %) 15.6 H Plt Count (150 - 400 x10 3/uL) 574 H MPV (7.0 - 9.0 fL) 11.9 H ESR Westergren (0 - 15 mm/hr) 115 H Medication(s) Ordered: Anti-Infective Agents Sig/Josefa Start time Last Medication Dose Route Stop Time Status Admin Piperacillin Sod/ 3.375 GM Q8H 01/11 1600 AC Tazobactam Sod IV 02/11 1559 0910 Sodium Chloride 100 ML Antihistamine Drugs Sig/Josefa Start time Last Medication Dose Route Stop Time Status Admin Loratadine 10 MG DAILY 01/01 0900 AC 01/14 PO 01/31 0859 0908 Autonomic Drugs Sig/Josefa Start time Last Medication Dose Route Stop Time Status Admin Tamsulosin HCl 0.4 MG DAILY 12/31 1245 AC 01/14 PO 01/30 1244 0905 Cardiovascular Drugs Sig/Josefa Start time Last Medication Dose Route Stop Time Status Admin Atorvastatin Calcium 80 MG DAILY@2100 12/31 210 0 AC 01/13 PO 01/30 Metoprolol Tartrate 25 MG DAILY 12/31 1245 AC 1 03/17 PO 01/30 1244 0908 Central Nervous System Agents Sig/Josefa Start time Last Medication Dose Route Stop Time Status Admin Hydromorphone HCl 0.5 MG DAILY PRN PRN 01/14 00 30 AC IV 01/19 0029 Hydromorphone HCl 0.5 MG Q4H PRN PRN 01/115 DC 01/13 PO 01/16 2214 214 Tramadol HCl 50 MG Q4H PRN PRN 01/11 2215 AC PO 01/16 221 0447 Acetaminophen 650 MG Q4H PRN PRN 01/02 2015 AC 01/02 PO 02/01 Gabapentin 300 MG BEDTIME 01/01 2100 AC 01/13 PO 01/31 2059 2146 Amitriptyline HCl 25 MG BEDTIME 12/31 2100 AC 01/13 PO 01/30 205 2147 Aspirin 81 MG DAILY 12/31 1245 AC 01/14 PO 01/30 1244 0907 Citalopram 20 MG DAILY 12/31 1245 AC 01/14 Hydrobromide PO 01/30 1244 0908 Disinfectants (For Non-Dermato Sig/Josefa Start time Last Medication Dose Route Stop Time Status Admin Sodium Hypochlorite 1 APPLIC DAILY 01/04 0900 A C 01/14 TOPICAL 02/03 0859 0909 Electrolytic, Caloric, And Tiesha Sig/Josefa Start time Last Medication Dose Route Stop Time Status Admin Lactulose 20 GM BID 01/13 09 AC 01/14 PO 02/12 0859 0909 Sodium Chloride 10 ML BID 01/07 2100 AC 01/14 IV 02/06 205 0909 Sodium Chloride 10 ML ASDIR PRN 01/07 1015 AC IV 02/06 1014 Dextrose/Water 125 ML ASDIR PRN 01/02 1645 CKD IV 02/01 1644 Dextrose/Water 250 ML ASDIR PRN 01/02 1645 CKD IV 02/01 1644 Furosemide 40 MG DAILY 01/01 09 AC 01/14 PO 01/31 0859 0909 Sterile Water See Dose ASDIR PRN 12/31 1315 AC Insts (1) IRR 01/30 1314 Eye, Ear, Nose And Throat (Een Sig/Josefa Start time Last Medication Dose Route Stop Time Status Admin Phenol 1 SPRAY Q4H PRN PRN 01/11 1845 AC PO 02/10 1844 Gastrointestinal Drugs Sig/Josefa Start time Last Medication Dose Route Stop Time Status Admin Ursodiol 300 MG C BK DIN 12/31 1700 AC 01/14 PO 01/30 1659 0908 Ondansetron HCl 4 MG Q6H PRN PRN 12/30 2230 AC 01/10 IV 03/30 2227 1741 Hormones And Synthetic Substit Sig/Josefa Start time Last Medication Dose Route Stop Time Status Admin Glucagon 1 MG ASDIR PRN 01/02 1645 AC IM 02/01 1644 Insulin Human Lispro 10 UNIT AC BK GRACE 01/01 113 0 AC 01/14 SUBQ 01/31 1129 0906 Insulin Human Lispro 10 UNIT AC DIN 12/31 1630 AC 01/13 SUBQ 01/30 1629 1808 Insulin Human Lispro 0 AC HS 12/31 1630 AC 2 SUBQ 01/30 1629 0907 Local Anesthetics (Parenteral) Sig/Josefa Start time Last Medication Dose Route Stop Time Status Admin Lidocaine 1 PATCH DAILY 01/12 0900 AC 01/14 TOPICAL 02/11 0859 0905 Dose Instructions: (1)Sterile Water: DRESSING CHANGE Portions of this section renetta e scribed by Kimberley Suggs on 01/14/22 at 0919 Treatment Prophylaxis Treatment Prophylaxis Lines: PICC (01/10) CVC/PICC documentation: The data below has been imported from nursing do cumentation. Any exceptions have been noted below under Provider comments. 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 4-Peripheral vascular disease Recommendations Zosyn monotherapy given microbiology Cardiology consult for YOLA Repeat blood cultures until negative Vascular surgery consultation for possib le angiogram and correction of disease 01/03 Continue antibiotics Await debridement by podiatry Await vascular intervention Await YOLA 01/04 For angiogram tommorow Continue Zosyn 01/05 The YOLA is negative Angiogram is pending Surgical intervention is pending We will arrange long-term antibiotics after proc edures are completed 01/06 Status post external fixator placement Continue IV Zosyn Will arrange long-term IV antibiotics on dischar ge Likely will need amputation in the near future 01/07 Will order home infusion with Zosyn and a PICC l ine 01/10 Continue Zosyn SNF is planned and is pending 01/11 For angiogram today Continue antibiotics 01/12 Is status post angiogram Continue Zosyn until February 1101/13 Cont on Zosyn til 02/11 for osteomyelitis and septic arthritis of left foot and ankle with E.coli and E.fecalis follow ESR and crp 01/14 on Zosyn til 02/11 for osteo myelitis and septic arthritis of left foot and ankle with E.coli and E.fecalis esr 115, crp 88 Portions of this section wer e scribed by Kimberley Suggs on 01/14/22 at 0919 at 2042 RPT #:[id number] END OF REPORT 2022-01-14 [facility] 08:57:00-00:00 [facility] ([facility]) Urology Progress Note REPORT#:[id number] REPORT STATUS: Signed DATE:01/14/22 TIME: 08 PATIENT: PEDRO MCGREGOR UNIT #: [id number] ROOM/BED: [place] [address] : 54 AGE: 66 SEX: M ATTEND: Jean-Paul Ward od, MD ADM AUTHOR: Dima Forbes NP * ALL edits or amendments must be made on the [email or web address] document * Subjective Chief complaint: URINARY RETENTION HPI: 66-year-old male with a history of hypertension, diabetes, hyperlipidemia, osteomyelitis, and CAD admitted for left foot in [facility]. He has associated generalized weakness, chills, and nausea , vomit ing. He has been on multiple rounds of antibiotics for this infection without relief. He denies chest pain, dyspnea, changes in his bowel/bladder movements, headache, blurred vision, or any other symptoms. Urologic al consultation was sought for the evaluation of the retention of urine and Bhardwaj catheter. H is Bhardwaj was recently changed . He was found to have positive blood cultures, urine cul ture is pending. UA was abnormal. WBC's are elevated 01/14/2022 - Bhardwaj intact. no new concerns. will go to SNF Patient reports: no urinary pain, no abdominal p ain, no back pain Nursing reports: no urinary pain, no abdominal p ain, no back pain Objective General VS/I O: Last Documented: Result Date Time Pulse Ox 97 12/02 0722 B/P 104/67 01/14 722 B/P Mean 79.3 01/14 722 Pulse 102 01/14 722 Resp 16 01/14 722 O2 Delivery Room air 01/14 437 Temp 36.8 01/14 437 O2 Flow Rate 2 01/11 2200 24 hour I O ending at 0700: 01/14 0700 01/13 1900 Intake Total 200 500.00 Output Total 1100 Balance 200 -600.00 Intake, IV 200.00 Intake, Oral 200 Intake, Oral 300 Supplement Output, Urine 1100 PATIENT WEIGHT: Weight (lb): Weight (oz): Weight (kg): 100.000 Medications: Active Meds + DC'd Last 24 Hrs Hydromorphone HCl (DILAUDID) 0.5 MG DAILY PRN TN N IV Lactulose (LACTULOSE) 20 GM BID PO Lidocaine (LIDODERM) 1 PATCH DAILY TOPICAL Hydromorphone HCl (DILAUDID) 0.5 MG Q4H PRN PRN PO (DC) Tramadol HCl (ULTRAM) 50 MG Q4H PRN PRN PO Phenol (CHLORASEPTIC) 1 SPRAY Q4H PRN PRN PO Piperacillin Sod/Tazobactam Sod (ZOSYN 3.375GM) 3.375 GM Q8H IV Sodium Chloride (SODIUM CHLORIDE 0.9% 100 ML) 100 ML Sodium Chloride (SODIUM CHLORIDE) 10 ML BID IV Sodium Chloride (SODIUM CHLORIDE) 10 ML ASDIR TN N IV Sodium Hypochlorite (DAKIN'S 1/4 STR (0.125%) 47 3ML) 1 APPLIC DAILY TOPICAL Acetaminophen (TYLENOL) 650 MG Q4H PRN PRN PO Dextrose/Water (DEXTROSE 10% IN WATER) 125 ML A SDIR PRN IV (CKD) Dextrose/Water (DEXTROSE 10% IN WATER) 250 ML DIR PRN IV (CKD) Glucagon (GLUCAGON) 1 MG ASDIR PRN IM Gabapentin (NEURONTIN) 300 MG BEDTIME PO Insulin Human Lispro (HUMALOG) 10 UNIT AC BK GRACE SUBQ Furosemide (LASIX) 40 MG DAILY PO Loratadine (CLARITIN) 10 MG DAILY PO Amitriptyline HCl (ELAVIL) 25 MG BEDTIME PO Atorvastatin Calcium (LIPITOR) 80 MG DAILY@2100 PO Ursodiol (ActigalL) 300 MG C BK DIN PO Insulin Human Lispro (HUMALOG) 10 UNIT AC DIN MARR BQ Insulin Human Lispro (HUMALOG) 0 AC HS SUBQ Sterile Water (WATER FOR IRRIGATION) DRESSING CH SHERICE ASDIR PRN IRR Aspirin (ASPIRIN) 81 MG DAILY PO Citalopram Hydrobromide (CeleXA) 20 MG DAILY PO Metoprolol Tartrate (LOPRESSOR) 25 MG DAILY PO Tamsulosin HCl (Flomax 0.4 mg) 0.4 MG DAILY PO Ondansetron HCl (ZOFRAN) 4 MG Q6H PRN PRN IV Dietitian nutrition assessment The data set between the solid lines has been im ported from the dietitian's assessment. BMI Calculated: 26.8 Nutrition related diagnosis: Nutrition diagnosis details: Nutrition problem: Increased nutrient needs Nutrition etiology: wound healing Nutrition signs and symptoms: wounds left foot a nd ankle Nutrition prescription: 1. R ecommend 2200 ADA diet as tolerated 2. Encourage po intake and honor pt preferen steven 3. Recommend Gerry BID to promote wound healing. 4. Pt refused ONS and snacks, Dietitian name: Lary Crowder, MS, RD, L D Assessment completed: 01/13/22 Physical Exam General appearance: alert, awake, oriented Head/Eyes: atraumatic, clear cornea, EOMI, normo cephalic, normal conjunctiva/ sclera Neck: full range of motion, non-tender, no bruit /NL carotids Cardiovascular: normal capillary refill, regular rate rhythm, normal heart sounds, BP/pulses equal bilat. Respiratory: clear to auscultation, no distress, no tenderness, aerating well Abdomen: soft, non-tender, no guarding Genitourinary: Genitourinary: urinary catheter in place, good urine output Extremities: moves all, no edema, normal capilla ry refill, normal range of motion Skin: dry, intact, no gross abnormalities, tra l color, L foot wound wrapped Results Findings/Data: Laboratory Tests: 01/14 01/14 01/13 01/13 01/13 0721 0610 1954 1624 1316 Chemistry POC Glucose (70 - 110 MG/DL) 186 H 309 H 327 H 272 H C-Reactive Protein (<10.0 mg/L) 88.0 H Hematology WBC (4.5 - 11.0 x10 3/uL) 11.7 H RBC (4.00 - 5.60 x10 6/uL) 3.42 L Hgb (12.5 - 16.9 g/dL) 9.6 L Hct (37.5 - 50.7 %) 30.5 L MCV (81.0 - 99.0 fL) 89.2 MCH (27.0 - 33.0 pg) 28.1 MCHC (33.0 - 37.0 g/dL) 31.5 L RDW (11.5 - 14.5 %) 15.6 H Plt Count (150 - 400 x10 3/uL) 574 H MPV (7.0 - 9.0 fL) 11.9 H ESR Westergren (0 - 15 mm/hr) 115 H Results: labs reviewed, vital signs reviewed Diagnosis, Assessment Plan Free Text A P: Assessment BPH Urinary retention Bhardwaj in situ Bacteremia Leukocytosis Proteinuria Microhematuria WISAM on CKD Plan Keep Bhardwaj Urine culture negative Renal u/s WNL Continue Flomax Voiding trials once clinically improved outpatient cystoscopy and urodynamics Monitor for hematuria We will follow Heme and lytes per primary team ABX per ID Thank you for this kind consult Electronically Signed by Dima Forbes NP on at 0857 RPT #:[id number] END OF REPORT 2022-01-13 [facility] 23:51:00-00:00 [facility] ([facility]) Pain Management Progress Note REPORT#:[id number] REPORT STATUS: Signed DATE:01/13/22 TIME: 1 PATIENT: PEDRO MCGREGOR UNIT #: [id number] ROOM/BED: [place] [address] : 54 AGE: 66 SEX: M ATTEND: Jean-Paul Ward od, MD ADM AUTHOR: Btety Tejeda APRN * ALL edits or amendments must be made on the Material Mix/computer document * Subjective Chief Complaint: Left foot pain Comments: pt seen, sitting up in bed watching tv. pain rem ains controlled. no other issues. Review of Systems Free Text ROS Notes Free Text ROS Notes: 12 point ROS reviewed and negative unless stated otherwise Objective General VS/I O: Vital Signs Date Temp Pulse Resp B/P B/P Mean Pulse Ox FiO2 01/13-01/14 36.5-37.0 78-95 14-17 104-125/57-65 73.0-83.7 93-97 Last Documented: Result Date Time Pulse Ox 94 01/14 0011 B/P 121/64 01/14 0011 B/P Mean 83.0 01/14 0011 O2 Delivery Room air 01/14 001 Temp 36.8 01/14 0011 Pulse 88 01/14 0011 Resp 14 01/14 0011 O2 Flow Rate 2 01/11 2200 24 hour I O ending at 0700: 01/14 0700 01/13 1900 Intake Total 500.00 Output Total 1100 Balance -600.00 Intake, IV 200.00 Intake, Oral 300 Supplement Output, Urine 1100 PATIENT WEIGHT: Weight (lb): Weight (oz): Weight (kg): 100.000 Medications: Active Meds + DC'd Last 24 Hrs Lactulose (LACTULOSE) 20 GM BID PO Lidocaine (LIDODERM) 1 PATCH DAILY TOPICAL Hydromorphone HCl (DILAUDID) 0.5 MG Q4H PRN PRN PO Tramadol HCl (ULTRAM) 50 MG Q4H PRN PRN PO Phenol (CHLORASEPTIC) 1 SPRAY Q4H PRN PRN PO Piperacillin Sod/Tazobactam Sod (ZOSYN 3.375GM) 3.375 GM Q8H IV Sodium Chloride (SODIUM CHLORIDE 0.9% 100 ML) 1 00 ML Sodium Chloride (SODIUM CHLORIDE) 10 ML BID IV Sodium Chloride (SODIUM CHLORIDE) 10 ML ASDIR TN N IV Sodium Hypochlorite (DAKIN'S / STR (0.125%) 47 3ML) 1 APPLIC DAILY TOPICAL Acetaminophen (TYLENOL) 650 MG Q4H PRN PRN PO Dextrose/Water (DEXTROSE 10% IN WATER) 125 ML DIR PRN IV (CKD) Dextrose/Water (DEXTROSE 10% IN WATER) 250 ML DIR PRN IV (CKD) Glucagon (GLUCAGON) 1 MG ASDIR PRN IM Gabapentin (NEURONTIN) 300 MG BEDTIME PO Insulin Human Lispro (HUMALOG) 10 UNIT AC BK GRACE SUBQ Furosemide (LASIX) 40 MG DAILY PO Loratadine (CLARITIN) 10 MG DAILY PO Amitriptyline HCl (ELAVIL) 25 MG BEDTIME PO Atorvastatin Calcium (LIPITOR) 80 MG DAILY@2100 PO Ursodiol (ActigalL) 300 MG C BK DIN PO Insulin Human Lispro (HUMALOG) 10 UNIT AC DIN MARR BQ Insulin Human Lispro (HUMALOG) 0 AC HS SUBQ Sterile Water (WATER FOR IRRIGATION) DRESSING CH SHERICE ASDIR PRN IRR Aspirin (ASPIRIN) 81 MG DAILY PO Citalopram Hydrobromide (CeleXA) 20 MG DAILY PO Metoprolol Tartrate (LOPRESSOR) 25 MG DAILY PO Tamsulosin HCl (Flomax 0.4 mg) 0.4 MG DAILY PO Ondansetron HCl (ZOFRAN) 4 MG Q6H PRN PRN IV Physical Exam General appearance: alert, awake, oriented Head/Eyes: atraumatic, EOMI, normocephalic ENT: normal nose, normal sinus, moist mucosal me mbranes Neck: no masses or swelling, supple/no meningism us Cardiovascular: normal capillary refill, regular rate rhythm Respiratory: no distress, aerating well, symmetr ic expansion Abdomen: non-tender, no rebound, no distention Extremities: no edema, no clubbing, no c yanosis, decreased range of motion (of LLE 2/2 pain) Neuro/METAL WELDER: alert, oriented X 3, normal speech Skin: dry, intact, warm Results Findings/data: Laboratory Tests: 01/13 01/13 01/13 01/13 1954 1624 1316 0829 Chemistry POC Glucose (70 - 110 MG/DL) 309 H 327 H 272 H 229 H Results: labs reviewed, vital signs stable Diagnosis, Assessment Plan Free text A P: Pedro Mcgregor is a 66yo male with PMH of DM II, HTN, CAD, HLD, and diabetic ulcers that was admitted with a left foot infection. 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 Dilaudid IV 0.5mg Qday PRN severe pain with woun d care Tramadol 50mg PO Q6hrs PRN moderate pain Gabapentin 300mg PO QHS for neuropathic pain Lidoderm to sternum for neuropathic pain s/p reduction of fracture with external fixation on 01/05/22 Left foot infection - abx, podiatry following, p ending left BKA or LLE arteriogram on 01/05/22 Bacteremia - s/p YOLA on 01/04/22 DM - SSI HLD - Lipitor HTN - Metoprolol BPH - Flomax CAD - ASA 81mg DC planning to SNF Please hold all narcotics for SBP < 90mm hg, Respiratory rate <8bpm, or altered mentation. Please call with any questions or concerns [phone] Thank you for allowing me to participate in this patient's care. Plan of care discussed with Dr. Posada and Dr. Felipe kumar, patient, primary team, and RN. All questions answered. Patient agrees w ith above plan of care. All diagnostic studies, ASSISTANT CHIEF TRAIN DISPATCHER, and labs in the pas t 24 hours reviewed and interpreted with Dr. Posada and Dr. Carter. [place] ASSISTANT CHIEF TRAIN DISPATCHER verified 12/31/21 at 0028 Electronically Signed by Kanwal Carter DO on 1 03/19/21 at 1750 RPT #:[id number] END OF REPORT 2022-01-13 [facility] 20:15:00-00:00 [facility] ([facility]) Infectious Dis. Progress Note REPORT#:[id number] REPORT STATUS: Signed DATE:01/13/22 TIME: 2014 PATIENT: PEDRO MCGREGOR UNIT #: [id number] ROOM/BED: 5506-1 : 54 AGE: 66 SEX: M ATTEND: Jean-Paul Ward od, MD ADM AUTHOR: Ary Leroy MD * ALL edits or amendments must be made on the el ectronic/computer document * Subjective Chief complaint: LEFT FOOT INFECTION HPI: This is a 66-year-old male p atient with history of peripheral vascular disease, type 2 diabetes and neuropat hy who has been admitted for a left foot infection. He was admitted earlier this month to [facility] and was found to have a complicated gas-forming polymicrobial in fection of the left leg including osteomyelitis and septic arthritis of the left foot and ankle. His wound cultures grew Ente rococcus faecalis B fragilis, and gram-negative rods including Proteus. He also had Enterococcus faecalis bacteremia in November. He was treated multiple times with appropriate a ntibiotics but was thought to lack source control and was recommended BKA at t hat time. His blood cultures are now again growing Enteroc occus species. Patient reports: No: cough, diarrhea, fever, headache, nausea, sh ortness of breath. Portions of this section wer e scribed by Kimberley Suggs on 01/13/22 at 2015 Objective General VS/I O: Vital Signs Date Temp Pulse Resp B/P B/P Mean Pulse Ox FiO2 01/12-01/13 97.7-98.6 72-95 14-17 104-125/53-65 73.0-83.7 93-97 Last Documented: Result Date Time Pulse Ox 95 01/13 1955 B/P 112/61 01/13 1955 B/P Mean 77.6 01/13 1955 O2 Delivery Room air 01/13 1955 Temp 98.2 01/13 1955 Pulse 79 01/13 1955 Resp 14 01/13 1955 O2 Flow Rate 2 01/110 Vital Signs: Date Time Temp Pulse Resp B/P B/P Pulse O2 O2 F low FiO2 Mean Ox Delivery Rate 01/13 1955 98.2 79 14 112/61 77.6 95 Room air 01/13 1625 98.1 80 15 113/65 81.1 96 Room air 01/13 1316 98.2 78 15 104/57 73.0 97 Room air 01/13 0736 98.6 95 15 115/57 76.1 94 Room air 01/13 0443 98.4 80 17 114/63 80.0 94 01/13 0053 97.7 86 17 125/63 83.7 93 01/12 2119 98.2 72 17 113/53 73.4 94 24 hour I O ending at 0700: 01/13 0700 01/12 1900 Intake Total Output Total 1900 Balance -1900 Output, Urine 1900 PATIENT WEIGHT: Weight (lb): Weight (oz): Weight (kg): 100.000 Physical Exam General appearance: alert, awake, oriented Wound/incision: Location: Left foot and ankle ulcers dressing saturated Head/Eyes: atraumatic, clear cornea ENT: moist mucosal membranes, normal dentition Neck: full range of motion, non-tender Cardiovascular: normal heart sounds, regular rat e rhythm Respiratory: clear to auscultation, aerating wel l Abdomen: non-tender, normal bowel sounds Skin: dry, intact, no rash Results Findings/Data: Laboratory Tests 01/13 01/13 01/13 01/13 01/12 1954 1624 1316 0829 2120 Chemistry POC Glucose (70 - 110 MG/DL) 309 H 327 H 272 H 229 H 113 H Medication(s) Ordered: Anti-Infective Agents Sig/Josefa Start time Last Medication Dose Route Stop Time Status Admin Piperacillin Sod/ 3.375 GM Q8H 01/11 1600 AC Tazobactam Sod IV 02/11 1559 1843 Sodium Chloride 100 ML Antihistamine Drugs Sig/Josefa Start time Last Medication Dose Route Stop Time Status Admin Loratadine 10 MG DAILY 01/01 0900 AC 01/13 PO 01/31 0859 0913 Autonomic Drugs Sig/Josefa Start time Last Medication Dose Route Stop Time Status Admin Tamsulosin HCl 0.4 MG DAILY 12/31 1245 AC 01/13 PO 01/30 1244 0914 Cardiovascular Drugs Sig/Josefa Start time Last Medication Dose Route Stop Time Status Admin Atorvastatin Calcium 80 MG DAILY@2100 12/31 210 0 AC 01/12 PO 01/30 2059 2125 Metoprolol Tartrate 25 MG DAILY 12/31 1245 AC 1 03/16 PO 01/30 1244 0913 Central Nervous System Agents Sig/Josefa Start time Last Medication Dose Route Stop Time Status Admin Hydromorphone HCl 0.5 MG Q4H PRN PRN 01/11 2215 AC PO 01/16 2214 Tramadol HCl 50 MG Q4H PRN PRN 01/11 2215 AC PO 01/16 2214 0447 Acetaminophen 650 MG Q4H PRN PRN 01/02 2015 AC 01/02 PO 02/01 Gabapentin 300 MG BEDTIME 01/01 2100 AC 01/12 PO 01/31 Amitriptyline HCl 25 MG BEDTIME 12/31 2099 AC 03/14 PO 01/30 Aspirin 81 MG DAILY 12/31 1245 AC 01/13 PO 01/30 1244 0912 Citalopram 20 MG DAILY 12/31 1245 AC 01/13 Hydrobromide PO 01/30 1244 0912 Disinfectants (For Non-Dermato Sig/Josefa Start time Last Medication Dose Route Stop Time Status Admin Sodium Hypochlorite 1 APPLIC DAILY 01/04 09 AC 01/13 TOPICAL 02/03 0859 0913 Electrolytic, Caloric, And Tiesha Sig/Josefa Start time Last Medication Dose Route Stop Time Status Admin Lactulose 20 GM BID 01/13 0900 AC 01/13 PO 02/12 0859 0910 Sodium Chloride 10 ML BID 01/07 2100 AC 01/13 IV 02/06 2059 0915 Sodium Chloride 10 ML ASDIR PRN 01/07 1015 AC IV 02/06 1014 Dextrose/Water 125 ML ASDIR PRN 01/02 1645 CKD IV 02/01 1644 Dextrose/Water 250 ML ASDIR PRN 01/02 1645 CKD IV 02/01 1644 Furosemide 40 MG DAILY 01/01 09 AC 01/13 PO 01/31 0859 0912 Sterile Water See Dose ASDIR PRN 12/31 1315 AC Insts (1) IRR 01/30 1314 Eye, Ear, Nose And Throat (Een Sig/Josefa Start time Last Medication Dose Route Stop Time Status Admin Phenol 1 SPRAY Q4H PRN PRN 01/11 1845 AC PO 02/10 1844 Gastrointestinal Drugs Sig/Josefa Start time Last Medication Dose Route Stop Time Status Admin Ursodiol 300 MG C BK DIN 12/31 1700 AC 01/13 PO 01/30 1659 1842 Ondansetron HCl 4 MG Q6H PRN PRN 12/30 2230 AC 01/10 IV 03/30 2227 1741 Hormones And Synthetic Substit Sig/Josefa Start time Last Medication Dose Route Stop Time Status Admin Glucagon 1 MG ASDIR PRN 01/02 1645 AC IM 02/01 1644 Insulin Human Lispro 10 UNIT AC BK GRACE 01/01 113 0 AC 01/13 SUBQ 01/31 1129 0914 Insulin Human Lispro 10 UNIT AC DIN 12/31 1630 AC 01/13 SUBQ 01/30 1629 1808 Insulin Human Lispro 0 AC HS 12/31 1630 AC 12/0 1 SUBQ 01/30 1629 1807 Local Anesthetics (Parenteral) Sig/Josefa Start time Last Medication Dose Route Stop Time Status Admin Lidocaine 1 PATCH DAILY 01/12 0900 AC 01/13 TOPICAL 02/11 0859 0910 Dose Instructions: (1)Sterile Water: DRESSING CHANGE Portions of this section renetta hyde scribed by Kimberley Suggs on 01/13/22 at 2014 Treatment Prophylaxis Treatment Prophylaxis Lines: PICC (01/10) CVC/PICC documentation: The data below has been imported from nursing do cumentation. Any exceptions have been noted below under Provider comments. 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 4-Peripheral vascular disease Recommendations Zosyn monotherapy given microbiology Cardiology consult for YOLA Repeat blood cultures until negative Vascular surgery consultation for possib le angiogram and correction of disease 01/03 Continue antibiotics Await debridement by podiatry Await vascular intervention Await YOLA 01/04 For angiogram tommorow Continue Zosyn 01/05 The YOLA is negative Angiogram is pending Surgical intervention is pending We will arrange long-term antibiotics after proc edures are completed 01/06 Status post external fixator placement Continue IV Zosyn Will arrange long-term IV antibiotics on dischar ge Likely will need amputation in the near future 01/07 Will order home infusion with Zosyn and a PICC l ine 01/10 Continue Zosyn SNF is planned and is pending 01/11 For angiogram today Continue antibiotics 01/12 Is status post angiogram Continue Zosyn until February 1101/13 Cont on Zosyn til 02/11 for osteomyelitis and septic arthritis of left foot and ankle with E.coli and E.fecalis follow ESR and crp Portions of this section renetta hyde scribed by Kimberley Suggs on 01/13/22 at 2015 at 0751 RPT #:[id number] END OF REPORT 2022-01-13 [facility] 16:43:00-00:00 [facility] ([facility]) Podiatry Progress Note REPORT#:[id number] REPORT STATUS: Signed DATE:01/13/22 TIME: 1642 PATIENT: PEDRO MCGREGOR UNIT #: [id number] ROOM/BED: [place] [address] : 54 AGE: 66 SEX: M ATTEND: Max Ward MD ADM AUTHOR: Faby Wharton DPEvan * ALL edits or amendments must be made on the Material [email or web address] document * Subjective Chief complaint: left foot infection HPI: FOOT ULCER Objective General VS: Last Documented: Result Date Time Pulse Ox 96 01/13 1625 B/P 113/65 01/13 1625 B/P Mean 81.1 01/13 1625 O2 Delivery Room air 01/13 1625 Temp 36.7 01/13 1625 Pulse 80 01/13 1625 Resp 15 01/13 1625 O2 Flow Rate 2 01/11 2200 PATIENT WEIGHT: Weight (lb): Weight (oz): Weight (kg): 100.000 Medications: Active Meds + DC'd Last 24 Hrs Lactulose (LACTULOSE) 20 GM BID PO Lidocaine (LIDODERM) 1 PATCH DAILY TOPICAL Hydromorphone HCl (DILAUDID) 0.5 MG Q4H PRN PRN PO Tramadol HCl (ULTRAM) 50 MG Q4H PRN PRN PO Phenol (CHLORASEPTIC) 1 SPRAY Q4H PRN PRN PO Piperacillin Sod/Tazobactam Sod (ZOSYN 3.375GM) 3.375 GM Q8H IV Sodium Chloride (SODIUM CHLORIDE 0.9% 100 ML) 1 00 ML Sodium Chloride (SODIUM CHLORIDE) 10 ML BID IV Sodium Chloride (SODIUM CHLORIDE) 10 ML ASDIR TN N IV Sodium Hypochlorite (DAKIN'S 1/4 STR (0.125%) 47 3ML) 1 APPLIC DAILY TOPICAL Acetaminophen (TYLENOL) 650 MG Q4H PRN PRN PO Dextrose/Water (DEXTROSE 10% IN WATER) 125 ML DIR PRN IV (CKD) Dextrose/Water (DEXTROSE 10% IN WATER) 250 ML DIR PRN IV (CKD) Glucagon (GLUCAGON) 1 MG ASDIR PRN IM Gabapentin (NEURONTIN) 300 MG BEDTIME PO Insulin Human Lispro (HUMALOG) 10 UNIT AC BK GRACE SUBQ Furosemide (LASIX) 40 MG DAILY PO Loratadine (CLARITIN) 10 MG DAILY PO Amitriptyline HCl (ELAVIL) 25 MG BEDTIME PO Atorvastatin Calcium (LIPITOR) 80 MG DAILY@2100 PO Ursodiol (ActigalL) 300 MG C BK DIN PO Insulin Human Lispro (HUMALOG) 10 UNIT AC DIN MARR BQ Insulin Human Lispro (HUMALOG) 0 AC HS SUBQ Sterile Water (WATER FOR IRRIGATION) DRESSING CH SHERICE ASDIR PRN IRR Aspirin (ASPIRIN) 81 MG DAILY PO Citalopram Hydrobromide (CeleXA) 20 MG DAILY PO Metoprolol Tartrate (LOPRESSOR) 25 MG DAILY PO Tamsulosin HCl (Flomax 0.4 mg) 0.4 MG DAILY PO Ondansetron HCl (ZOFRAN) 4 MG Q6H PRN PRN IV I O: 24 hour I O ending at 0700: 12/01 0700 01/12 1900 Intake Total Output Total 1900 Balance -1900 Output, Urine 1900 Dietitian nutrition assessment The data set between the solid lines has been im ported from the dietitian's assessment. BMI Calculated: 26.8 Nutrition related diagnosis: Nutrition diagnosis details: Nutrition problem: Increased nutrient needs Nutrition etiology: wound healing Nutrition signs and symptoms: wounds left foot a nd ankle Nutrition prescription: 1. R ecommend 2200 ADA diet as tolerated 2. Encourage po intake and honor pt preferen steven 3. Recommend Gerry BID to promote wound healing. 4. Pt refused ONS and snacks, Dietitian name: Lary Crowder, MS, RD, L D Assessment completed: 01/13/22 Physical Exam Wound/incision: Location: left foot Site condition: drainage, dressing saturated, e cchymosis, erythema, eschar, necrotic tissue, odor, left foot dp/pt 02/16 light touch decreased. wound anterior left ankle. seropurulent imelda inage. ulcer extensive from medial left hindfoot to medial left midfoot. into marr b q layer. no ability to invert the left foot. foot is deformed. it is severely everted. no lymphang itis. LE vascular pulse assess: 1+ L posterior tibialis, 1+ L dorsalis pedis Results Findings/Data: Laboratory Tests: 01/13 01/13 01/13 01/12 1624 1316 0829 2120 Chemistry POC Glucose (70 - 110 MG/DL) 327 H 272 H 229 H 113 H Results: labs reviewed Diagnosis, Assessment Plan Free Text A P: DM with neuropathy PVD wound left ankle ulcer left foot leukocytosis cellulitis left foot ankle fracture and dislocation veraflo wound vac mwf IV abx culture left ankle and left foot--results discus sed with patient continue IV abx, ID on board Veraflo wound vac applied to LLE left foot xray: no gas. no erosions. offloading boots. arterial studies--discussed with patient Plan Dispo: Snf may go to snf with regualr vac Electronically Signed by Faby Wharton DPM on 07/05 at 5831 RPT #:[id number] END OF REPORT 2022-01-13 [facility] 12:42:00-00:00 [facility] Urology Progress Note REPORT#:[id number] REPORT STATUS: Signed DATE:01/13/22 TIME: 1242 PATIENT: PEDRO MCGREGOR UNIT #: [id number] ROOM/BED: [place] [address] : 54 AGE: 66 SEX: M ATTEND: Jean-Paul Ward od, MD ADM AUTHOR: Dima Forbes LINK CUTTER * ALL edits or amendments must be made on the Material Mix/computer document * Subjective Chief complaint: URINARY RETENTION HPI: 66-year-old male with a history of hypertension, diabetes, hyperlipidemia, osteomyelitis, and CAD [facility]. He has associated generalized weakness, chills, and nausea , vomit ing. He has been on multiple rounds of antibiotics for this infection without relief. He denies chest pain, dyspnea, changes in his bowel/bladder movements, headache, blurred vision, or any other symptoms. Urologic al consultation was sought for the evaluation of the retention of urine and Bhardwaj catheter. H is Bhardwaj was recently changed . He was found to have positive blood cultures, urine cul ture is pending. UA was abnormal. WBC's are elevated 01/13/2022 - Bhardwaj intact. no new concerns. will go to SNF Objective General VS/I O: Last Documented: Result Date Time Pulse Ox 94 01/14 736 B/P 115/57 01/14 736 B/P Mean 76.1 01/14 736 O2 Delivery Room air 01/14 736 Temp 37.0 01/14 736 Pulse 95 01/14 736 Resp 15 01/14 736 O2 Flow Rate 2 01/11 2200 24 hour I O ending at 0700: 01/13 1900 Intake Total Output Total 1900 Balance -1900 Output, Urine 1900 PATIENT WEIGHT: Weight (lb): Weight (oz): Weight (kg): 100.000 Medications: Active Meds + DC'd Last 24 Hrs Lactulose (LACTULOSE) 20 GM BID PO Lidocaine (LIDODERM) 1 PATCH DAILY TOPICAL Hydromorphone HCl (DILAUDID) 0.5 MG Q4H PRN PRN PO Tramadol HCl (ULTRAM) 50 MG Q4H PRN PRN PO Phenol (CHLORASEPTIC) 1 SPRAY Q4H PRN PRN PO Piperacillin Sod/Tazobactam Sod (ZOSYN 3.375GM) 3.375 GM Q8H IV Sodium Chloride (SODIUM CHLORIDE 0.9% 100 ML) 1 00 ML Sodium Chloride (SODIUM CHLORIDE) 10 ML BID IV Sodium Chloride (SODIUM CHLORIDE) 10 ML ASDIR TN N IV Acetaminophen (TYLENOL EXTRA STRENGTH) 1,000 MG PREOP ONCALL PO (DC) Gabapentin (NEURONTIN) 200 MG PREOP ONCALL PO (D C) Lactated Ringer's (LACTATED RINGERS) 1,000 ML TN EOP ONCALL IV (DC) Lidocaine HCl (LIDOCAINE HCL/PF) 2 ML PREOP ONCA LL LOCAL (DC) Lidocaine HCl (LIDOCAINE HCL/PF) 2 ML PREOP ONCA LL LOCAL (DC) Sodium Chloride (SODIUM CHLORIDE 0.9%) 500 ML TN EOP ONCALL IV (DC) Sodium Chloride (SODIUM CHLORIDE 0.9%) 500 ML TN EOP ONCALL IV (DC) Sodium Chloride (SODIUM CHLORIDE 0.9%) 1,000 ML PREOP ONCALL IV (DC) Sodium Chloride (SODIUM CHLORIDE) 5 ML ASDIR PRN IV (DC) Sodium Chloride (SODIUM CHLORIDE) 10 ML ASDIR TN N IV (DC) Sodium Chloride (SODIUM CHLORIDE 0.9%) 250 ML DIR PRN IV (DC) Sodium Hypochlorite (DAKIN'S 1/4 STR (0.125%) 47 3ML) 1 APPLIC DAILY TOPICAL Acetaminophen (TYLENOL) 650 MG Q4H PRN PRN PO Dextrose/Water (DEXTROSE 10% IN WATER) 125 ML DIR PRN IV (CKD) Dextrose/Water (DEXTROSE 10% IN WATER) 250 ML DIR PRN IV (CKD) Glucagon (GLUCAGON) 1 MG ASDIR PRN IM Gabapentin (NEURONTIN) 300 MG BEDTIME PO Insulin Human Lispro (HUMALOG) 10 UNIT AC BK GRACE SUBQ Furosemide (LASIX) 40 MG DAILY PO Loratadine (CLARITIN) 10 MG DAILY PO Amitriptyline HCl (ELAVIL) 25 MG BEDTIME PO Atorvastatin Calcium (LIPITOR) 80 MG DAILY@2100 PO Ursodiol (ActigalL) 300 MG C BK DIN PO Insulin Human Lispro (HUMALOG) 10 UNIT AC DIN MARR BQ Insulin Human Lispro (HUMALOG) 0 AC HS SUBQ Sterile Water (WATER FOR IRRIGATION) DRESSING CH SHERICE ASDIR PRN IRR Aspirin (ASPIRIN) 81 MG DAILY PO Citalopram Hydrobromide (CeleXA) 20 MG DAILY PO Metoprolol Tartrate (LOPRESSOR) 25 MG DAILY PO Tamsulosin HCl (Flomax 0.4 mg) 0.4 MG DAILY PO Ondansetron HCl (ZOFRAN) 4 MG Q6H PRN PRN IV Dietitian nutrition assessment The data set between the solid lines has been im ported from the dietitian's assessment. BMI Calculated: 26.8 Nutrition related diagnosis: Nutrition diagnosis details: Nutrition problem: Nutrition etiology: Nutrition signs and symptoms: Nutrition prescription: Dietitian name: Assessment completed: Physical Exam General appearance: alert, awake, oriented Head/Eyes: atraumatic, clear cornea, EOMI, normo cephalic, normal conjunctiva/ sclera Neck: full range of motion, non-tender, no bruit /NL carotids Cardiovascular: normal capillary refill, regular rate rhythm, normal heart sounds, BP/pulses equal bilat. Respiratory: clear to auscultation, no distress, no tenderness, aerating well Abdomen: soft, non-tender, no guarding Genitourinary: Genitourinary: urinary catheter in place, good urine output Extremities: moves all, no edema, normal capilla ry refill, normal range of motion Skin: dry, intact, no gross abnormalities, tra l color, L foot wound wrapped Results Findings/Data: Laboratory Tests: 01/13 01/12 01/12 0829 2120 1608 Chemistry POC Glucose (70 - 110 MG/DL) 229 H 113 H 230 H Results: labs reviewed, vital signs reviewed Diagnosis, Assessment Plan Free Text A P: Assessment BPH Urinary retention Bhardwaj in situ Bacteremia Leukocytosis Proteinuria Microhematuria WISAM on CKD Plan Keep Bhardwaj Urine culture negative Renal u/s WNL Continue Flomax Voiding trials once clinically improved outpatient cystoscopy and urodynamics Monitor for hematuria We will follow Heme and lytes per primary team ABX per ID Thank you for this kind consult Electronically Signed by Dima Forbes LINK CUTTER on at 1242 RPT #:[id number] END OF REPORT 2022-01-13 [facility] 11:35:00-00:00 [facility] ([facility]) Hospitalist Progress Note REPORT#:[id number] REPORT STATUS: Signed DATE:01/13/22 TIME: 1135 PATIENT: PEDRO MCGREGOR UNIT #: [id number] ROOM/BED: [place] [address] : 54 AGE: 66 SEX: M ATTEND: Max Ward MD ADM AUTHOR: Lexa Samson NP * ALL edits or amendments must be made on the Material Mix/computer document * Subjective Chief complaint: He is stable. No news issue. Still waiting for SNF approval. Tolreating wound care. Left LE and foot pain controlled. No CP, fever, chills. No N/v/D. BP and HR stable. Bhardwaj in placed. Review of Systems Constitutional: Reports: fatigue, generalized weakness. Eyes: Denies: discharge, itching, eye pain, photophobi a. Respiratory: Denies: non productive cough, parox nocturnal dy spnea, SOB. Cardiovascular: Denies: GIBBS (dyspnea on exertion), edema, orthop booker, palpitations. GI: Denies: constipation, dysphagia, hematemesis, he matochezia, hiatal hernia, nausea. : Denies: flank pain, hematuria, nocturia, penile discharge, testicular pain. Heme: Denies: bleeding, bruising. Neuro: Denies: confusion, focal weakness, lightheaded, syncope, unable to speak. Objective General VS/I O: Vital Signs: Date Time Temp Pulse Resp B/P B/P Pulse O2 O2 F low FiO2 Mean Ox Delivery Rate 01/13 0736 37.0 95 15 115/57 76.1 94 Room air 01/13 0443 36.9 80 17 114/63 80.0 94 01/13 0053 36.5 86 17 125/63 83.7 93 01/12 2119 36.8 72 17 113/53 73.4 94 01/12 1609 36.5 71 15 109/62 78.0 96 Room air 01/12 1141 36.4 78 15 99/57 71.0 94 Room air 24 hour I O ending at 0700: 01/13 0700 01/12 1900 Intake Total Output Total 1900 Balance -1900 Output, Urine 1900 PATIENT WEIGHT: Weight (lb): Weight (oz): Weight (kg): 100.000 Medications: Active Meds + DC'd Last 24 Hrs Lactulose (LACTULOSE) 20 GM BID PO Lidocaine (LIDODERM) 1 PATCH DAILY TOPICAL Hydromorphone HCl (DILAUDID) 0.5 MG Q4H PRN PRN PO Tramadol HCl (ULTRAM) 50 MG Q4H PRN PRN PO Phenol (CHLORASEPTIC) 1 SPRAY Q4H PRN PRN PO Piperacillin Sod/Tazobactam Sod (ZOSYN 3.375GM) 3.375 GM Q8H IV Sodium Chloride (SODIUM CHLORIDE 0.9% 100 ML) 1 00 ML Sodium Chloride (SODIUM CHLORIDE) 10 ML BID IV Sodium Chloride (SODIUM CHLORIDE) 10 ML ASDIR TN N IV Acetaminophen (TYLENOL EXTRA STRENGTH) 1,000 MG PREOP ONCALL PO (DC) Gabapentin (NEURONTIN) 200 MG PREOP ONCALL PO (D C) Lactated Ringer's (LACTATED RINGERS) 1,000 ML TN EOP ONCALL IV (DC) Lidocaine HCl (LIDOCAINE HCL/PF) 2 ML PREOP ONCA LL LOCAL (DC) Lidocaine HCl (LIDOCAINE HCL/PF) 2 ML PREOP ONCA LL LOCAL (DC) Sodium Chloride (SODIUM CHLORIDE 0.9%) 500 ML TN EOP ONCALL IV (DC) Sodium Chloride (SODIUM CHLORIDE 0.9%) 500 ML TN EOP ONCALL IV (DC) Sodium Chloride (SODIUM CHLORIDE 0.9%) 1,000 ML PREOP ONCALL IV (DC) Sodium Chloride (SODIUM CHLORIDE) 5 ML ASDIR PRN IV (DC) Sodium Chloride (SODIUM CHLORIDE) 10 ML ASDIR TN N IV (DC) Sodium Chloride (SODIUM CHLORIDE 0.9%) 250 ML DIR PRN IV (DC) Sodium Hypochlorite (DAKIN'S 1/4 STR (0.125%) 47 3ML) 1 APPLIC DAILY TOPICAL Acetaminophen (TYLENOL) 650 MG Q4H PRN PRN PO Dextrose/Water (DEXTROSE 10% IN WATER) 125 ML DIR PRN IV (CKD) Dextrose/Water (DEXTROSE 10% IN WATER) 250 ML DIR PRN IV (CKD) Glucagon (GLUCAGON) 1 MG ASDIR PRN IM Gabapentin (NEURONTIN) 300 MG BEDTIME PO Insulin Human Lispro (HUMALOG) 10 UNIT AC BK GRACE SUBQ Furosemide (LASIX) 40 MG DAILY PO Loratadine (CLARITIN) 10 MG DAILY PO Amitriptyline HCl (ELAVIL) 25 MG BEDTIME PO Atorvastatin Calcium (LIPITOR) 80 MG DAILY@2100 PO Ursodiol (ActigalL) 300 MG C BK DIN PO Insulin Human Lispro (HUMALOG) 10 UNIT AC DIN MARR BQ Insulin Human Lispro (HUMALOG) 0 AC HS SUBQ Sterile Water (WATER FOR IRRIGATION) DRESSING CH SHERICE ASDIR PRN IRR Aspirin (ASPIRIN) 81 MG DAILY PO Citalopram Hydrobromide (CeleXA) 20 MG DAILY PO Metoprolol Tartrate (LOPRESSOR) 25 MG DAILY PO Tamsulosin HCl (Flomax 0.4 mg) 0.4 MG DAILY PO Ondansetron HCl (ZOFRAN) 4 MG Q6H PRN PRN IV Dietitian nutrition assessment The data set between the solid lines has been im ported from the dietitian's assessment. BMI Calculated: 26.8 Nutrition related diagnosis: Nutrition diagnosis details: Nutrition problem: Nutrition etiology: Nutrition signs and symptoms: Nutrition prescription: Dietitian name: Assessment completed: Physical Exam General appearance: alert, awake Head/Eyes: atraumatic, EOMI ENT: moist mucosal membranes Neck: full range of motion, normal thyroid Cardiovascular: normal heart sounds, regular rat e rhythm Respiratory: aerating well, clear to auscultatio n, symmetric expansion Abdomen: non-tender, normal bowel sounds, soft Genitourinary: urinary catheter Extremities: no clubbing, no cyanosis, left foot : drssing C/D/I Neuro/METAL WELDER: alert, oriented X 3 Psychiatry: normal affect, normal mood Results Findings/Data: Laboratory Tests 01/13 01/12 01/12 01/12 0829 2120 1608 1137 Chemistry POC Glucose (70 - 110 MG/DL) 229 H 113 H 230 H 313 H Results: vital signs reviewed, vital signs stabl e, current med profile rev'd Treatment Prophylaxis Treatment Prophylaxis Oxygen: room air Diagnosis, Assessment Plan Code status: full code Plan discussed with: patient, admitting physicia n, consultants, nurse Free Text DxA P Notes Free text DxA P notes: Assessment and PlaN; - Bacteremia , recurrent Enterococcal Faecalis b acteremia. - Sepsis POA due to left foot OM. - Left Foot OM failed Outpt treatment. - Non healing wound of Left foot. - Hyponatremia - Left foot pain due to OM. - HX of HTN, HLD, DM type II, Liver disa se, Heart disease, diabetes neuropathy - Over weight 26.8. - On bhardwaj 2/2 non weight bearing of foot - UA positive for LE, UTI - Hypomagnesemia-replaced - PVD. - S/P Open reduction of bimalleolar ankle fractu re/External fixation application of tibiotalar di sarticulation and subluxation and bimalleolar ankle fracture. - S/p Bilateral lower extremity arteriogram, Lef t anterior tibial artery 0.9 laser atherectomy with 3.0 mm balloon angioplast y and Left posterior tibial artery and tibioperoneal yusuf nk artery 0.9 laser atherectomy with 3.0 mm balloon angioplasty. Plan: Floor. [facility]. [facility] Left Ankle wound cx showed ENTEROCOCCUS FAECALIS and Left foot wound cx showed ESCHERICHIA COLI/ENTEROCOCCUS SPECIES. S/P reduction of fracture with external fixation . s/p YOLA today was negative for endocarditis. CM for SNF placement. PAIN CONTROL IV abx per ID f/u Cardiology Vascular sx CONSULT Appreciated Podiatry for Left foot wound. ID for left foot OM. Pain meds. Antiemetics. Glycemic control, accu check AC HS, ISS. Diabetic diet. Follow labs and replace as needed. Continue home meds. Monitor. Electronically Signed by Lexa Samson NP on 03/06 at 1136 Electronically Signed by Chelo Ward MD on 1 03/28/21 at 5142 RPT #:[id number] END OF REPORT 2022-01-12 [facility] 18:19:00-00:00 [facility] ([facility]) Podiatry Progress Note REPORT#:[id number] REPORT STATUS: Signed DATE:01/12/22 TIME: 1818 PATIENT: PEDRO MCGREGOR UNIT #: [id number] ROOM/BED: [place] [address] : 54 AGE: 66 SEX: M ATTEND: Max Ward MD ADM AUTHOR: Faby Wharton DPM * ALL edits or amendments must be made on the Material [email or web address] document * Subjective Chief complaint: left foot infection HPI: FOOT ULCER Objective General VS: Last Documented: Result Date Time Pulse Ox 96 01/12 1609 B/P 109/62 01/12 1609 B/P Mean 78.0 01/12 1609 O2 Delivery Room air 01/12 1609 Temp 36.5 01/12 1609 Pulse 71 01/12 1609 Resp 15 01/12 1609 O2 Flow Rate 2 01/11 2200 PATIENT WEIGHT: Weight (lb): Weight (oz): Weight (kg): 100.000 Medications: Active Meds + DC'd Last 24 Hrs Lidocaine (LIDODERM) 1 PATCH DAILY TOPICAL Hydromorphone HCl (DILAUDID) 0.5 MG Q4H PRN PRN PO Tramadol HCl (ULTRAM) 50 MG Q4H PRN PRN PO Phenol (CHLORASEPTIC) 1 SPRAY Q4H PRN PRN PO Piperacillin Sod/Tazobactam Sod (ZOSYN 3.375GM) 3.375 GM Q8H IV Sodium Chloride (SODIUM CHLORIDE 0.9% 100 ML) 1 00 ML Diphenhydramine HCl (BENADRYL) 12.5 MG PACU ONCE PRN IV (DC) Fentanyl Citrate (SUBLIMAZE) 100 MCG PACU Q10MIN PRN PRN IV (DC) Fentanyl Citrate (SUBLIMAZE) 50 MCG PACU Q10MIN PRN PRN IV (DC) Hydralazine HCl (APRESOLINE) 5 MG PACU Q10MIN TN N PRN IV (DC) Hydrocodone Bitart/Acetaminophen (NORCO 5/325) 1 TAB PACU ONCE PO (DC) Hydromorphone HCl (DILAUDID) 1 MG PACU Q10MIN TN N PRN IV (DC) Hydromorphone HCl (DILAUDID) 0.5 MG PACU Q5MIN P RN PRN IV (DC) Insulin Human Lispro (HUMALOG) 0 PACU ONCE PRN S UBQ (DC) Labetalol HCl (LABETALOL HCL) 5 MG PACU Q10MIN P RN PRN IV (DC) Meperidine HCl (MEPERIDINE HCL/PF) 12.5 MG PACU ONCE PRN IV (DC) Morphine Sulfate (morphine SULFATE) 2 MG PACU Q1 0MIN PRN PRN IV (DC) Ondansetron HCl (ZOFRAN) 4 MG PACU ONCE PRN IV ( DC) Promethazine HCl (PHENERGAN) 25 MG PACU ONCE PRN PO (DC) Ropivacaine (NAROPIN 0.5% 150 MG/30mL) 150 MG DIR PRN LOCAL (DC) Sodium Chloride (SODIUM CHLORIDE 0.9%) 1,000 ML .Q24H IV (DC) Tramadol HCl (ULTRAM) 50 MG PACU ONCE PO (DC) Sodium Chloride (SODIUM CHLORIDE) 10 ML BID IV Sodium Chloride (SODIUM CHLORIDE) 10 ML ASDIR TN N IV Acetaminophen (TYLENOL EXTRA STRENGTH) 1,000 MG PREOP ONCALL PO (DC) Gabapentin (NEURONTIN) 200 MG PREOP ONCALL PO (D C) Lactated Ringer's (LACTATED RINGERS) 1,000 ML TN EOP ONCALL IV (DC) Lidocaine HCl (LIDOCAINE HCL/PF) 2 ML PREOP ONCA LL LOCAL (DC) Lidocaine HCl (LIDOCAINE HCL/PF) 2 ML PREOP ONCA LL LOCAL (DC) Sodium Chloride (SODIUM CHLORIDE 0.9%) 500 ML TN EOP ONCALL IV (DC) Sodium Chloride (SODIUM CHLORIDE 0.9%) 500 ML TN EOP ONCALL IV (DC) Sodium Chloride (SODIUM CHLORIDE 0.9%) 1,000 ML PREOP ONCALL IV (DC) Sodium Chloride (SODIUM CHLORIDE) 5 ML ASDIR PRN IV (DC) Sodium Chloride (SODIUM CHLORIDE) 10 ML ASDIR TN N IV (DC) Sodium Chloride (SODIUM CHLORIDE 0.9%) 250 ML DIR PRN IV (DC) Sodium Hypochlorite (DAKIN'S 1/ STR (0.125%) 47 3ML) 1 APPLIC DAILY TOPICAL Acetaminophen (TYLENOL) 650 MG Q4H PRN PRN PO Dextrose/Water (DEXTROSE 10% IN WATER) 125 ML DIR PRN IV (CKD) Dextrose/Water (DEXTROSE 10% IN WATER) 250 ML DIR PRN IV (CKD) Glucagon (GLUCAGON) 1 MG ASDIR PRN IM Hydromorphone HCl (DILAUDID) 0.5 MG Q4H PRN PRN IV (DC) Gabapentin (NEURONTIN) 300 MG BEDTIME PO Insulin Human Lispro (HUMALOG) 10 UNIT AC BK GRACE SUBQ Furosemide (LASIX) 40 MG DAILY PO Loratadine (CLARITIN) 10 MG DAILY PO Amitriptyline HCl (ELAVIL) 25 MG BEDTIME PO Atorvastatin Calcium (LIPITOR) 80 MG DAILY@2100 PO Ursodiol (ActigalL) 300 MG C BK DIN PO Insulin Human Lispro (HUMALOG) 10 UNIT AC DIN MARR BQ Insulin Human Lispro (HUMALOG) 0 AC HS SUBQ Sterile Water (WATER FOR IRRIGATION) DRESSING CH SHERICE ASDIR PRN IRR Aspirin (ASPIRIN) 81 MG DAILY PO Citalopram Hydrobromide (CeleXA) 20 MG DAILY PO Metoprolol Tartrate (LOPRESSOR) 25 MG DAILY PO Tamsulosin HCl (Flomax 0.4 mg) 0.4 MG DAILY PO Ondansetron HCl (ZOFRAN) 4 MG Q6H PRN PRN IV I O: 24 hour I O ending at 0700: 30 0700 01/11 1900 Intake Total Output Total 3700 Balance -3700 Output, Urine 3700 Dietitian nutrition assessment The data set between the solid lines has been im ported from the dietitian's assessment. BMI Calculated: 26.8 Nutrition related diagnosis: Nutrition diagnosis details: Nutrition problem: Nutrition etiology: Nutrition signs and symptoms: Nutrition prescription: Dietitian name: Assessment completed: Physical Exam Wound/incision: Location: left foot Site condition: drainage, dressing saturated, e cchymosis, erythema, eschar, necrotic tissue, odor, left foot dp/pt 1/4 light touch decreased. wound anterior left ankle. seropurulent imelda inage. ulcer extensive from medial left hindfoot to medial left midfoot. into marr b q layer. no ability to invert the left foot. foot is deformed. it is severely everted. no lymphang itis. LE vascular pulse assess: 1+ L posterior tibialis, 1+ L dorsalis pedis Results Findings/Data: Laboratory Tests: 01/12 01/12 01/12 01/11 1608 1137 0751 2242 Chemistry POC Glucose (70 - 110 MG/DL) 230 H 313 H 275 H 310 H Results: labs reviewed Diagnosis, Assessment Plan Free Text A P: DM with neuropathy PVD wound left ankle ulcer left foot leukocytosis cellulitis left foot ankle fracture and dislocation veraflo wound vac mwf IV abx culture left ankle and left foot--results discus sed with patient continue IV abx, ID on board Veraflo wound vac applied to LLE left foot xray: no gas. no erosions. offloading boots. arterial studies--discussed with patient Plan Dispo: Snf Electronically Signed by Faby Wharton DPM on 07/05 at 1921 RPT #:[id number] END OF REPORT 2022-01-12 [facility] 17:20:00-00:00 [facility] ([facility]) Pain Management Progress Note REPORT#:[id number] REPORT STATUS: Signed DATE:01/12/22 TIME: 1720 PATIENT: PEDRO MCGREGOR UNIT #: [id number] ROOM/BED: [facility] : 54 AGE: 66 SEX: M ATTEND: Jean-Paul Ward od, MD ADM AUTHOR: Betty Tejeda APRN * ALL edits or amendments must be made on the Material Mix/computer document * Subjective Chief Complaint: Left foot pain Comments: Patient seen and examined. pain controlled. no o ther issues. Review of Systems Free Text ROS Notes Free Text ROS Notes: 12 point ROS reviewed and negative unless stated otherwise Objective General VS/I O: Vital Signs Date Temp Pulse Resp B/P B/P Mean Pulse Ox FiO2 01/11-01/12 35.8-36.7 71-80 15-17 99-129/57-71 71.0-90.3 94-97 Last Documented: Result Date Time Pulse Ox 96 01/12 1609 B/P 109/62 01/12 1609 B/P Mean 78.0 01/12 1609 O2 Delivery Room air 01/12 1609 Temp 36.5 01/12 1609 Pulse 71 01/12 1609 Resp 15 01/12 1609 O2 Flow Rate 2 01/11 2200 24 hour I O ending at 0700: 01/12 0700 01/11 1900 Intake Total Output Total 3700 Balance -3700 Output, Urine 3700 PATIENT WEIGHT: Weight (lb): Weight (oz): Weight (kg): 100.000 Physical Exam General appearance: alert, awake, oriented Head/Eyes: atraumatic, EOMI, normocephalic ENT: normal nose, normal sinus, moist mucosal me mbranes Neck: no masses or swelling, supple/no meningism us Cardiovascular: normal capillary refill, regular rate rhythm Respiratory: no distress, aerating well, symmetr ic expansion Abdomen: non-tender, no rebound, no distention Extremities: no edema, no clubbing, no c yanosis, decreased range of motion (of LLE 2/2 pain) Neuro/METAL WELDER: alert, oriented X 3, normal speech Skin: dry, intact, warm Results Findings/data: Laboratory Tests: 01/12 01/12 01/12 01/11 1608 1137 0751 2242 Chemistry POC Glucose (70 - 110 MG/DL) 230 H 313 H 275 H 310 H Results: labs reviewed, vital signs stable Diagnosis, Assessment Plan Free text A P: Pedro Mcgregor is a 66yo male with PMH of DM II, HTN, CAD, HLD, and diabetic ulcers that was admitted with a left foot infection. 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 Decrease Dilaudid IV 0.5mg Q4hrs to Qday PRN sev ere pain with wound care Tramadol 50mg PO Q6hrs PRN moderate pain Gabapentin 300mg PO QHS for neuropathic pain s/p reduction of fracture with external fixation on 01/05/22 Left foot infection - abx, podiatry following, p ending left BKA or LLE arteriogram on 01/05/22 Bacteremia - s/p YOLA on 01/04/22 DM - SSI HLD - Lipitor HTN - Metoprolol BPH - Flomax CAD - ASA 81mg DC planning to SNF Please hold all narcotics for SBP < 90mm hg, Respiratory rate <8bpm, or altered mentation. Please call with any questions or concerns Thank you for allowing me to participate in this patient's care. Plan of care discussed with Dr. Posada and Dr. Felipe kumar, patient, primary team, and RN. All questions answered. Patient agrees w ith above plan of care. All diagnostic studies, ASSISTANT CHIEF TRAIN DISPATCHER, and labs in the pas t 24 hours reviewed and interpreted with Dr. Posada and Dr. Carter. [place] ASSISTANT CHIEF TRAIN DISPATCHER verified 12/31/21 at 9848 Electronically Signed by Kanwal Carter DO on 0 02/16/22 at 1541 [facility] #:[id number] END OF REPORT 2022-01-12 [facility] 12:32:00-00:00 [facility] Hospitalist Progress Note REPORT#:[id number] REPORT STATUS: Signed DATE:01/12/22 TIME: 1232 PATIENT: PEDRO MCGREGOR UNIT #: [id number] ROOM/BED: 5506-1 : 54 AGE: 66 SEX: M ATTEND: Jean-Paul Ward od, MD ADM AUTHOR: Lexa Samson NP * ALL edits or amendments must be made on the el [employer]/computer document * Subjective Chief complaint: S/P Open reduction of bimalleolar ankle fracture/External fixation application of tibiotalar disarticulation and subluxation an d bimalleolar ankle fracture. S/p Bilateral lower extremity arteriogram, Left anterior tibial artery 0.9 laser atherectomy with 3.0 mm balloon angioplast y and Left posterior tibial artery and tibioperoneal yusuf nk artery 0.9 laser atherectomy with 3.0 mm balloon angioplasty. He is waiting for SNF approval. Tolreating wound care. Left LE and foot pain controlled. No CP, fever, chills. No N/v/D. BP and HR stable. Bhardwaj in placed. Review of Systems Constitutional: Reports: fatigue, generalized weakness. Eyes: Denies: discharge, itching, photophobia. ENT: Denies: ear ringing, mouth pain, sinus problem, sore throat. Respiratory: Denies: hemoptysis, parox no cturnal dyspnea, pleurisy, productive cough (sputum) . Cardiovascular: Denies: GIBBS (dyspnea on exertion), edema, orthop booker, palpitations. GI: Denies: anorexia, dysphagia, hematochezia. : Denies: flank pain, penile discharge, testicular pain. Endocrine: Denies: heat intolerance. Objective General VS/I O: Vital Signs: Date Time Temp Pulse Resp B/P B/P Pulse O2 O2 F low FiO2 Mean Ox Delivery Rate 01/12 1141 36.4 78 15 99/57 71.0 94 Room air 01/12 0753 35.8 80 15 128/69 88.7 96 Nasal cannula 01/12 0338 36.6 75 17 126/71 89.3 97 01/12 0018 36.5 77 17 129/71 90.3 97 01/11 2200 Nasal 2 cannula 01/115 36.7 72 17 118/58 78.0 96 01/11 1705 36.3 85 16 137/74 94.9 95 Nasal cannula 24 hour I O ending at 0700: 01/12 0700 01/11 1900 Intake Total Output Total 3700 Balance -3700 Output, Urine 3700 PATIENT WEIGHT: Weight (lb): Weight (oz): Weight (kg): 100.000 Medications: Active Meds + DC'd Last 24 Hrs Lidocaine (LIDODERM) 1 PATCH DAILY TOPICAL Hydromorphone HCl (DILAUDID) 0.5 MG Q4H PRN PRN PO Tramadol HCl (ULTRAM) 50 MG Q4H PRN PRN PO Phenol (CHLORASEPTIC) 1 SPRAY Q4H PRN PRN PO Piperacillin Sod/Tazobactam Sod (ZOSYN 3.375GM) 3.375 GM Q8H IV Sodium Chloride (SODIUM CHLORIDE 0.9% 100 ML) 1 00 ML Diphenhydramine HCl (BENADRYL) 12.5 MG PACU ONCE PRN IV (DC) Fentanyl Citrate (SUBLIMAZE) 100 MCG PACU Q10MIN PRN PRN IV (DC) Fentanyl Citrate (SUBLIMAZE) 50 MCG PACU Q10MIN PRN PRN IV (DC) Hydralazine HCl (APRESOLINE) 5 MG PACU Q10MIN TN N PRN IV (DC) Hydrocodone Bitart/Acetaminophen (NORCO 5/325) 1 TAB PACU ONCE PO (DC) Hydromorphone HCl (DILAUDID) 1 MG PACU Q10MIN TN N PRN IV (DC) Hydromorphone HCl (DILAUDID) 0.5 MG PACU Q5MIN P RN PRN IV (DC) Insulin Human Lispro (HUMALOG) 0 PACU ONCE PRN S UBQ (DC) Labetalol HCl (LABETALOL HCL) 5 MG PACU Q10MIN P RN PRN IV (DC) Meperidine HCl (MEPERIDINE HCL/PF) 12.5 MG PACU ONCE PRN IV (DC) Morphine Sulfate (morphine SULFATE) 2 MG PACU Q1 0MIN PRN PRN IV (DC) Ondansetron HCl (ZOFRAN) 4 MG PACU ONCE PRN IV ( DC) Promethazine HCl (PHENERGAN) 25 MG PACU ONCE PRN PO (DC) Ropivacaine (NAROPIN 0.5% 150 MG/30mL) 150 MG DIR PRN LOCAL (DC) Sodium Chloride (SODIUM CHLORIDE 0.9%) 1,000 ML .Q24H IV (DC) Tramadol HCl (ULTRAM) 50 MG PACU ONCE PO (DC) Sodium Chloride (SODIUM CHLORIDE) 10 ML BID IV Sodium Chloride (SODIUM CHLORIDE) 10 ML ASDIR TN N IV Acetaminophen (TYLENOL EXTRA STRENGTH) 1,000 MG PREOP ONCALL PO (CKD) Gabapentin (NEURONTIN) 200 MG PREOP ONCALL PO (C KD) Lactated Ringer's (LACTATED RINGERS) 1,000 ML TN EOP ONCALL IV Lidocaine HCl (LIDOCAINE HCL/PF) 2 ML PREOP ONCA LL LOCAL Lidocaine HCl (LIDOCAINE HCL/PF) 2 ML PREOP ONCA LL LOCAL Sodium Chloride (SODIUM CHLORIDE 0.9%) 500 ML TN EOP ONCALL IV Sodium Chloride (SODIUM CHLORIDE 0.9%) 500 ML TN EOP ONCALL IV Sodium Chloride (SODIUM CHLORIDE 0.9%) 1,000 ML PREOP ONCALL IV Sodium Chloride (SODIUM CHLORIDE) 5 ML ASDIR PRN IV Sodium Chloride (SODIUM CHLORIDE) 10 ML ASDIR TN N IV Sodium Chloride (SODIUM CHLORIDE 0.9%) 250 ML DIR PRN IV Sodium Hypochlorite (DAKIN'S 1/4 STR (0.125%) 47 3ML) 1 APPLIC DAILY TOPICAL Acetaminophen (TYLENOL) 650 MG Q4H PRN PRN PO Dextrose/Water (DEXTROSE 10% IN WATER) 125 ML DIR PRN IV (CKD) Dextrose/Water (DEXTROSE 10% IN WATER) 250 ML DIR PRN IV (CKD) Glucagon (GLUCAGON) 1 MG ASDIR PRN IM Hydromorphone HCl (DILAUDID) 0.5 MG Q4H PRN PRN IV (DC) Gabapentin (NEURONTIN) 300 MG BEDTIME PO Insulin Human Lispro (HUMALOG) 10 UNIT AC BK GRACE SUBQ Furosemide (LASIX) 40 MG DAILY PO Loratadine (CLARITIN) 10 MG DAILY PO Amitriptyline HCl (ELAVIL) 25 MG BEDTIME PO Atorvastatin Calcium (LIPITOR) 80 MG DAILY@2100 PO Ursodiol (ActigalL) 300 MG C BK DIN PO Insulin Human Lispro (HUMALOG) 10 UNIT AC DIN MARR BQ Insulin Human Lispro (HUMALOG) 0 AC HS SUBQ Sterile Water (WATER FOR IRRIGATION) DRESSING CH SHERICE ASDIR PRN IRR Aspirin (ASPIRIN) 81 MG DAILY PO Citalopram Hydrobromide (CeleXA) 20 MG DAILY PO Metoprolol Tartrate (LOPRESSOR) 25 MG DAILY PO Tamsulosin HCl (Flomax 0.4 mg) 0.4 MG DAILY PO Ondansetron HCl (ZOFRAN) 4 MG Q6H PRN PRN IV Dietitian nutrition assessment The data set between the solid lines has been im ported from the dietitian's assessment. BMI Calculated: 26.8 Nutrition related diagnosis: Nutrition diagnosis details: Nutrition problem: Nutrition etiology: Nutrition signs and symptoms: Nutrition prescription: Dietitian name: Assessment completed: Physical Exam General appearance: alert, awake, oriented Head/Eyes: atraumatic, EOMI ENT: moist mucosal membranes Neck: full range of motion, normal thyroid Cardiovascular: normal heart sounds, regular rat e rhythm Respiratory: aerating well, clear to auscultatio n, symmetric expansion Abdomen: non-tender, normal bowel sounds, soft Genitourinary: urinary catheter Extremities: no clubbing, no cyanosis, left foot : drssing C/D/I Neuro/METAL WELDER: alert, oriented X 3 Psychiatry: normal affect, normal mood Results Findings/Data: Laboratory Tests 01/12 01/11 01/11 0751 2242 1701 Chemistry POC Glucose (70 - 110 MG/DL) 275 H 310 H 377 H Results: vital signs reviewed, vital signs stabl e, current med profile rev'd Treatment Prophylaxis Treatment Prophylaxis Oxygen: room air Diagnosis, Assessment Plan Orders: Procedure Date/time Status Dietitian Consult 01/13 0896 Active Code status: full code Plan discussed with: patient, admitting physicia n, consultants, nurse Free Text DxA P Notes Free text DxA P notes: Assessment and PlaN; - Bacteremia , recurrent Enterococcal Faecalis b acteremia. - Sepsis POA due to left foot OM. - Left Foot OM failed Outpt treatment. - Non healing wound of Left foot. - Hyponatremia - Left foot pain due to OM. - HX of HTN, HLD, DM type II, Liver disa se, Heart disease, diabetes neuropathy - Over weight 26.8. - On bhardwaj 2/2 non weight bearing of foot - UA positive for LE, UTI - Hypomagnesemia-replaced - PVD Plan: Floor. Pending [facility] SNF for ABX and wound care. Will go to [facility]. S/P Open reduction of bimalleolar ankle fracture/External fixation application of tibiotalar disarticulation and subluxation an d bimalleolar ankle fracture. S/p Bilateral lower extremity arteriogram, Left anterior tibial artery 0.9 laser atherectomy with 3.0 mm balloon angioplast y and Left posterior tibial artery and tibioperoneal yusuf nk artery 0.9 laser atherectomy with 3.0 mm balloon angioplasty. Left Ankle wound cx showed ENTEROCOCCUS FAECALIS and Left foot wound cx showed ESCHERICHIA COLI/ENTEROCOCCUS SPECIES. S/P reduction of fracture with external fixation . s/p YOLA today was negative for endocarditis. CM for SNF placement. PAIN CONTROL IV abx per ID f/u Cardiology Vascular sx CONSULT Appreciated Podiatry for Left foot wound. ID for left foot OM. Pain meds. Antiemetics. Glycemic control, accu check AC HS, ISS. Diabetic diet. Follow labs and replace as needed. Continue home meds. Monitor. Electronically Signed by Lexa Samson NP on at 1235 at 8773 RPT #:[id number] END OF REPORT 2022-01-12 [facility] 10:47:00-00:00 [facility] ([facility]) Infectious Dis. Progress Note REPORT#:[id number] REPORT STATUS: Signed DATE:01/12/22 TIME: 1047 PATIENT: PEDRO MCGREGOR UNIT #: [id number] ROOM/BED: [facility] [place] : 54 AGE: 66 SEX: M ATTEND: Jean-Paul Ward od, MD ADM AUTHOR: Enrrique King MD * ALL edits or amendments must be made on the Material Mix/computer document * Subjective Chief complaint: LEFT FOOT INFECTION HPI: This is a 66-year-old male p atient with history of peripheral vascular disease, type 2 diabetes and neuropat hy who has been admitted for a left foot infection. He was admitted earlier this month to [facility] and was found to have a complicated gas-forming polymicrobial in fection of the left leg including osteomyelitis and septic arthritis of the left foot and ankle. His wound cultures grew Ente rococcus faecalis B fragilis, and gram-negative rods including Proteus. He also had Enterococcus faecalis bacteremia in November. He was treated multiple times with appropriate a ntibiotics but was thought to lack source control and was recommended BKA at t hat time. His blood cultures are now again growing Enteroc occus species. Patient reports: No: abdominal pain, back pain, burning w ith urination, cough, fever, headache, pain, shortness of breath. Objective Physical Exam Wound/incision: Location: Left foot and ankle ulcers dressing saturated Head/Eyes: atraumatic, clear cornea ENT: moist mucosal membranes, normal dentition Neck: full range of motion, non-tender Cardiovascular: normal heart sounds, regular rat e rhythm Respiratory: clear to auscultation, aerating wel l Abdomen: non-tender, normal bowel sounds Results Findings/Data: Laboratory Tests 01/12 01/11 01/11 01/11 0751 2242 1701 1208 Chemistry POC Glucose (70 - 110 MG/DL) 275 H 310 H 377 H 372 H Diagnosis, Assessment Plan Free Text A P: 1-Recurrent Enterococcus faecalis bacteremia hig h suspicion for endovascular infection including endocarditis 2-Osteomyelitis and septic arthritis of the left foot and ankle 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 4-Peripheral vascular disease Recommendations Zosyn monotherapy given microbiology Cardiology consult for YOLA Repeat blood cultures until negative Vascular surgery consultation for possib le angiogram and correction of disease 01/03 Continue antibiotics Await debridement by podiatry Await vascular intervention Await YOLA 01/04 For angiogram tommorow Continue Zosyn 01/05 The YOLA is negative Angiogram is pending Surgical intervention is pending We will arrange long-term antibiotics after proc edures are completed 01/06 Status post external fixator placement Continue IV Zosyn Will arrange long-term IV antibiotics on dischar ge Likely will need amputation in the near future 01/07 Will order home infusion with Zosyn and a PICC l ine 01/10 Continue Zosyn SNF is planned and is pending 01/11 For angiogram today Continue antibiotics 01/12 Is status post angiogram Continue Zosyn until February 11 Electronically Signed by Enrrique King MD on at 1050 RPT #:[id number] END OF REPORT 2022-01-11 [facility] 23:54:00-00:00 [facility] ([facility]) Pain Management Progress Note REPORT#:[id number] REPORT STATUS: Signed DATE:01/11/22 TIME: 4 PATIENT: PEDRO MCGREGOR UNIT #: [id number] ROOM/BED: [place] [address] : 54 AGE: 66 SEX: M ATTEND: Max Ward MD ADM AUTHOR: Betty Tejeda APRN * ALL edits or amendments must be made on the [email or web address] document * Subjective Chief Complaint: Left foot pain Comments: pt seen. sitting up in bed. in good spir its. pain controlled. no other issues. Review of Systems Free Text ROS Notes Free Text ROS Notes: 12 point ROS reviewed and negative unless stated otherwise Objective General VS/I O: Vital Signs Date Temp Pulse Resp B/P B/P Mean Pulse Ox FiO2 01/11 36.3-37.6 72-106 - 108-162/58-84 77.7 -94.9 92-100 Last Documented: Result Date Time O2 Delivery Nasal cannula 01/11 2200 O2 Flow Rate 2 01/11 2200 Pulse Ox 96 01/11 2115 B/P 118/58 01/11 2115 B/P Mean 78.0 01/11 2115 Temp 36.7 01/11 2115 Pulse 72 01/11 2115 Resp 17 01/11 2115 24 hour I O ending at 0700: 01/11 0700 01/10 1900 Intake Total Output Total 600 850 Balance -600 -850 Output, Urine 600 850 PATIENT WEIGHT: Weight (lb): Weight (oz): Weight (kg): 100.000 Medications: Active Meds + DC'd Last 24 Hrs Lidocaine (LIDODERM) 1 PATCH DAILY TOPICAL Hydromorphone HCl (DILAUDID) 0.5 MG Q4H PRN PRN PO Tramadol HCl (ULTRAM) 50 MG Q4H PRN PRN PO Phenol (CHLORASEPTIC) 1 SPRAY Q4H PRN PRN PO Piperacillin Sod/Tazobactam Sod (ZOSYN 3.375GM) 3.375 GM Q8H IV Sodium Chloride (SODIUM CHLORIDE 0.9% 100 ML) 1 00 ML Diphenhydramine HCl (BENADRYL) 12.5 MG PACU ONCE PRN IV (DC) Fentanyl Citrate (SUBLIMAZE) 100 MCG PACU Q10MIN PRN PRN IV (DC) Fentanyl Citrate (SUBLIMAZE) 50 MCG PACU Q10MIN PRN PRN IV (DC) Hydralazine HCl (APRESOLINE) 5 MG PACU Q10MIN TN N PRN IV (DC) Hydrocodone Bitart/Acetaminophen (NORCO 5/325) 1 TAB PACU ONCE PO (DC) Hydromorphone HCl (DILAUDID) 1 MG PACU Q10MIN TN N PRN IV (DC) Hydromorphone HCl (DILAUDID) 0.5 MG PACU Q5MIN P RN PRN IV (DC) Insulin Human Lispro (HUMALOG) 0 PACU ONCE PRN S UBQ (DC) Labetalol HCl (LABETALOL HCL) 5 MG PACU Q10MIN P RN PRN IV (DC) Meperidine HCl (MEPERIDINE HCL/PF) 12.5 MG PACU ONCE PRN IV (DC) Morphine Sulfate (morphine SULFATE) 2 MG PACU Q1 0MIN PRN PRN IV (DC) Ondansetron HCl (ZOFRAN) 4 MG PACU ONCE PRN IV ( DC) Promethazine HCl (PHENERGAN) 25 MG PACU ONCE PRN PO (DC) Ropivacaine (NAROPIN 0.5% 150 MG/30mL) 150 MG DIR PRN LOCAL (DC) Sodium Chloride (SODIUM CHLORIDE 0.9%) 1,000 ML .Q24H IV (DC) Tramadol HCl (ULTRAM) 50 MG PACU ONCE PO (DC) Norepinephrine Bitartrate (LEVOPHED BITARTATE) 0 .STK-MED ONE IV (DC) Phenylephrine HCl (TARYN-SYNEPHRINE 1000MCG/NS 10M L INJ) 0 .STK-MED ONE I- MARCO A (DC) Dexamethasone Sodium Phosphate (DECADRON) 0 .STK -MED ONE .ROUTE (DC) Fentanyl Citrate (SUBLIMAZE) 0 .STK-MED ONE .ROU TE (DC) Lidocaine HCl (XYLOCAINE) 0 .STK-MED ONE .ROUTE (DC) Ondansetron HCl (ZOFRAN) 0 .STK-MED ONE .ROUTE ( DC) Propofol (DIPRIVAN 200MG/20ML INJECTION) 20 ML . STK-MED ONE IV (DC) Cefazolin Sodium (KEFZOL OR ANCEF) 0 .STK-MED ON E .ROUTE (DC) Cefazolin Sodium (KEFZOL OR ANCEF) 0 .STK-MED ON E .ROUTE (DC) Heparin Sodium (HEPARIN SODIUM) 0 .STK-MED ONE . ROUTE (DC) Sodium Chloride (SODIUM CHLORIDE) 10 ML BID IV Sodium Chloride (SODIUM CHLORIDE) 10 ML ASDIR TN N IV Acetaminophen (TYLENOL EXTRA STRENGTH) 1,000 MG PREOP ONCALL PO (CKD) Gabapentin (NEURONTIN) 200 MG PREOP ONCALL PO (C KD) Lactated Ringer's (LACTATED RINGERS) 1,000 ML TN EOP ONCALL IV Lidocaine HCl (LIDOCAINE HCL/PF) 2 ML PREOP ONCA LL LOCAL Lidocaine HCl (LIDOCAINE HCL/PF) 2 ML PREOP ONCA LL LOCAL Sodium Chloride (SODIUM CHLORIDE 0.9%) 500 ML TN EOP ONCALL IV Sodium Chloride (SODIUM CHLORIDE 0.9%) 500 ML TN EOP ONCALL IV Sodium Chloride (SODIUM CHLORIDE 0.9%) 1,000 ML PREOP ONCALL IV Sodium Chloride (SODIUM CHLORIDE) 5 ML ASDIR PRN IV Sodium Chloride (SODIUM CHLORIDE) 10 ML ASDIR TN N IV Sodium Chloride (SODIUM CHLORIDE 0.9%) 250 ML DIR PRN IV Sodium Hypochlorite (DAKIN'S 1/4 STR (0.125%) 47 3ML) 1 APPLIC DAILY TOPICAL Acetaminophen (TYLENOL) 650 MG Q4H PRN PRN PO Dextrose/Water (DEXTROSE 10% IN WATER) 125 ML A SDIR PRN IV (CKD) Dextrose/Water (DEXTROSE 10% IN WATER) 250 ML DIR PRN IV (CKD) Glucagon (GLUCAGON) 1 MG ASDIR PRN IM Hydromorphone HCl (DILAUDID) 0.5 MG Q4H PRN PRN IV (DC) Gabapentin (NEURONTIN) 300 MG BEDTIME PO Insulin Human Lispro (HUMALOG) 10 UNIT AC BK GRACE SUBQ Furosemide (LASIX) 40 MG DAILY PO Loratadine (CLARITIN) 10 MG DAILY PO Tramadol HCl (ULTRAM) 100 MG Q6H PRN PRN PO (DC) Amitriptyline HCl (ELAVIL) 25 MG BEDTIME PO Atorvastatin Calcium (LIPITOR) 80 MG DAILY@2100 PO Ursodiol (ActigalL) 300 MG C BK DIN PO Insulin Human Lispro (HUMALOG) 10 UNIT AC DIN MARR BQ Insulin Human Lispro (HUMALOG) 0 AC HS SUBQ Sterile Water (WATER FOR IRRIGATION) DRESSING CH SHERICE ASDIR PRN IRR Aspirin (ASPIRIN) 81 MG DAILY PO Citalopram Hydrobromide (CeleXA) 20 MG DAILY PO Metoprolol Tartrate (LOPRESSOR) 25 MG DAILY PO Tamsulosin HCl (Flomax 0.4 mg) 0.4 MG DAILY PO Ondansetron HCl (ZOFRAN) 4 MG Q6H PRN PRN IV Physical Exam General appearance: alert, awake, oriented Head/Eyes: atraumatic, EOMI, normocephalic ENT: normal nose, normal sinus, moist mucosal me mbranes Neck: no masses or swelling, supple/no meningism us Cardiovascular: normal capillary refill, regular rate rhythm Respiratory: no distress, aerating well, symmetr ic expansion Abdomen: non-tender, no rebound, no distention Extremities: no edema, no clubbing, no c yanosis, decreased range of motion (of LLE 2/2 pain) Neuro/METAL WELDER: alert, oriented X 3, normal speech Skin: dry, intact, warm Results Findings/data: Laboratory Tests: 01/11 01/11 01/11 01/11 2242 1701 1208 0909 Chemistry POC Glucose (70 - 110 MG/DL) 310 H 377 H 372 H 246 H 01/11 0620 Chemistry Sodium (134 - 147 mEq/L) 133 L Potassium (3.4 - 5.0 mEq/L) 3.8 Chloride (100 - 108 mEq/L) 96 L Carbon Dioxide (21 - 33 mEq/l) 29 Anion Gap (0 - 20) 12 BUN (7 - 18 mg/dL) 20 H Creatinine (0.6 - 1.3 mg/dL) 1.1 Glomerular Filtr Rate (80 - 90) 73.6 L Glucose (70 - 110 mg/dL) 244 H Calcium (8.0 - 10.5 mg/dL) 9.5 Hematology WBC (4.5 - 11.0 x10 3/uL) 14.6 H RBC (4.00 - 5.60 x10 6/uL) 3.46 L Hgb (12.5 - 16.9 g/dL) 9.8 L Hct (37.5 - 50.7 %) 31.1 L MCV (81.0 - 99.0 fL) 89.9 MCH (27.0 - 33.0 pg) 28.3 MCHC (33.0 - 37.0 g/dL) 31.5 L RDW (11.5 - 14.5 %) 15.6 H Plt Count (150 - 400 x10 3/uL) 602 H MPV (7.0 - 9.0 fL) 11.6 H Neut % (Auto) (56.0 - 77.0 %) 66.6 Lymph % (Auto) (14.0 - 32.0 %) 21.7 Kern % (Auto) (4.8 - 9.0 %) 9.0 Eos % (Auto) (0.3 - 3.7 %) 1.9 Baso % (Auto) (0.0 - 2.0 %) 0.4 Neut # (Auto) (2.0 - 7.6 x10 3/uL) 9.74 H Lymph # (Auto) (1.0 - 3.8 x10 3/uL) 3.17 Kern # (Auto) (0.1 - 0.8 x10 3/uL) 1.31 H Eos # (Auto) (0.0 - 0.2 x10 3/uL) 0.28 H Baso # (Auto) (0.0 - 0.2 x10 3/uL) 0.06 Abs Immat Gran (auto) (0.00 - 0.03 x10 3/uL) 0. 06 H Add Manual Diff NO Immature Gran % (0.0 - 2.0 %) 0.4 Nucleated RBC % (0 - 0 %) 0.0 Nucleated RBCs # (Man) (0.0 - 0.1 x10 3/uL) 0.0 0 Results: labs reviewed, vital signs stable Diagnosis, Assessment Plan Free text A P: Pedro Mcgregor is a 66yo male with PMH of DM II, HTN, CAD, HLD, and diabetic ulcers that was admitted with a left foot infection. 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 Decrease Dilaudid IV 0.5mg Q4hrs to Qday PRN sev ere pain with wound care Tramadol 50mg PO Q6hrs PRN moderate pain Gabapentin 300mg PO QHS for neuropathic pain s/p reduction of fracture with external fixation on 01/05/22 Left foot infection - abx, podiatry following, p ending left BKA or LLE arteriogram on 01/05/22 Bacteremia - s/p YOLA on 01/04/22 DM - SSI HLD - Lipitor HTN - Metoprolol BPH - Flomax CAD - ASA 81mg DC planning to SNF Please hold all narcotics for SBP < 90mm hg, Respiratory rate <8bpm, or altered mentation. Please call with any questions or concerns [phone] Thank you for allowing me to participate in this patient's care. Plan of care discussed with Dr. Posada and Dr. Felipe kumar, patient, primary team, and RN. All questions answered. Patient agrees w ith above plan of care. All diagnostic studies, ASSISTANT CHIEF TRAIN DISPATCHER, and labs in the pas t 24 hours reviewed and interpreted with Dr. Posada and Dr. Carter. [place] ASSISTANT CHIEF TRAIN DISPATCHER verified 12/31/21 at 2958 at 4979 RPT #:[id number] END OF REPORT 2022-01-11 [facility] 19:23:00-00:00 [facility] ([facility]) Podiatry Progress Note REPORT#:[id number] REPORT STATUS: Signed DATE:01/11/22 TIME: 1922 PATIENT: PEDRO MCGREGOR UNIT #: [id number] ROOM/BED: [place] [address] : 54 AGE: 66 SEX: M ATTEND: Max Ward MD ADM AUTHOR: Faby Wharton DPM * ALL edits or amendments must be made on the Material [email or web address] document * Subjective Chief complaint: left foot infection HPI: FOOT ULCER Objective General VS: Last Documented: Result Date Time Pulse Ox 95 01/11 170 B/P 137/74 01/11 170 B/P Mean 94.9 01/11 170 O2 Delivery Nasal cannula 01/11 1705 Temp 36.3 01/11 170 Pulse 85 01/11 170 Resp 16 01/11 1705 O2 Flow Rate 2 01/11 1028 PATIENT WEIGHT: Weight (lb): Weight (oz): Weight (kg): 100.000 Medications: Active Meds + DC'd Last 24 Hrs Lidocaine (LIDODERM) 1 PATCH DAILY TOPICAL Phenol (CHLORASEPTIC) 1 SPRAY Q4H PRN PRN PO Piperacillin Sod/Tazobactam Sod (ZOSYN 3.375GM) 3.375 GM Q8H IV Sodium Chloride (SODIUM CHLORIDE 0.9% 100 ML) 1 00 ML Diphenhydramine HCl (BENADRYL) 12.5 MG PACU ONC E PRN IV (DC) Fentanyl Citrate (SUBLIMAZE) 100 MCG PACU Q10MIN PRN PRN IV (DC) Fentanyl Citrate (SUBLIMAZE) 50 MCG PACU Q10MIN PRN PRN IV (DC) Hydralazine HCl (APRESOLINE) 5 MG PACU Q10MIN TN N PRN IV (DC) Hydrocodone Bitart/Acetaminophen (NORCO 5/325) 1 TAB PACU ONCE PO (DC) Hydromorphone HCl (DILAUDID) 1 MG PACU Q10MIN P RN PRN IV (DC) Hydromorphone HCl (DILAUDID) 0.5 MG PACU Q5MIN P RN PRN IV (DC) Insulin Human Lispro (HUMALOG) 0 PACU ONCE PRN S UBQ (DC) Labetalol HCl (LABETALOL HCL) 5 MG PACU Q10MIN P RN PRN IV (DC) Meperidine HCl (MEPERIDINE HCL/PF) 12.5 MG PACU ONCE PRN IV (DC) Morphine Sulfate (morphine SULFATE) 2 MG PACU Q 10MIN PRN PRN IV (DC) Ondansetron HCl (ZOFRAN) 4 MG PACU ONCE PRN IV ( DC) Promethazine HCl (PHENERGAN) 25 MG PACU ONCE PRN PO (DC) Ropivacaine (NAROPIN 0.5% 150 MG/30mL) 150 MG DIR PRN LOCAL (DC) Sodium Chloride (SODIUM CHLORIDE 0.9%) 1,000 ML .Q24H IV (DC) Tramadol HCl (ULTRAM) 50 MG PACU ONCE PO (DC) Norepinephrine Bitartrate (LEVOPHED BITARTATE) 0 .STK-MED ONE IV (DC) Phenylephrine HCl (TARYN-SYNEPHRINE 1000MCG/NS 10M L INJ) 0 .STK-MED ONE I- MARCO A (DC) Dexamethasone Sodium Phosphate (DECADRON) 0 .STK -MED ONE .ROUTE (DC) Fentanyl Citrate (SUBLIMAZE) 0 .STK-MED ONE .ROU TE (DC) Lidocaine HCl (XYLOCAINE) 0 .STK-MED ONE .ROUTE (DC) Ondansetron HCl (ZOFRAN) 0 .STK-MED ONE .ROUTE ( DC) Propofol (DIPRIVAN 200MG/20ML INJECTION) 20 ML . STK-MED ONE IV (DC) Cefazolin Sodium (KEFZOL OR ANCEF) 0 .STK-MED O NE .ROUTE (DC) Cefazolin Sodium (KEFZOL OR ANCEF) 0 .STK-MED ON E .ROUTE (DC) Heparin Sodium (HEPARIN SODIUM) 0 .STK-MED ONE . ROUTE (DC) Sodium Chloride (SODIUM CHLORIDE) 10 ML BID IV Sodium Chloride (SODIUM CHLORIDE) 10 ML ASDIR TN N IV Acetaminophen (TYLENOL EXTRA STRENGTH) 1,000 MG PREOP ONCALL PO (CKD) Gabapentin (NEURONTIN) 200 MG PREOP ONCALL PO (C KD) Lactated Ringer's (LACTATED RINGERS) 1,000 ML TN EOP ONCALL IV Lidocaine HCl (LIDOCAINE HCL/PF) 2 ML PREOP ONCA LL LOCAL Lidocaine HCl (LIDOCAINE HCL/PF) 2 ML PREOP ONCA LL LOCAL Sodium Chloride (SODIUM CHLORIDE 0.9%) 500 ML TN EOP ONCALL IV Sodium Chloride (SODIUM CHLORIDE 0.9%) 500 ML TN EOP ONCALL IV Sodium Chloride (SODIUM CHLORIDE 0.9%) 1,000 ML PREOP ONCALL IV Sodium Chloride (SODIUM CHLORIDE) 5 ML ASDIR PRN IV Sodium Chloride (SODIUM CHLORIDE) 10 ML ASDIR TN N IV Sodium Chloride (SODIUM CHLORIDE 0.9%) 250 ML DIR PRN IV Sodium Hypochlorite (DAKIN'S / STR (0.125%) 47 3ML) 1 APPLIC DAILY TOPICAL Acetaminophen (TYLENOL) 650 MG Q4H PRN PRN PO Dextrose/Water (DEXTROSE 10% IN WATER) 125 ML DIR PRN IV (CKD) Dextrose/Water (DEXTROSE 10% IN WATER) 250 ML DIR PRN IV (CKD) Glucagon (GLUCAGON) 1 MG ASDIR PRN IM Hydromorphone HCl (DILAUDID) 0.5 MG Q4H PRN PRN IV Gabapentin (NEURONTIN) 300 MG BEDTIME PO Insulin Human Lispro (HUMALOG) 10 UNIT AC BK GRACE SUBQ Furosemide (LASIX) 40 MG DAILY PO Loratadine (CLARITIN) 10 MG DAILY PO Tramadol HCl (ULTRAM) 100 MG Q6H PRN PRN PO (DC) Amitriptyline HCl (ELAVIL) 25 MG BEDTIME PO Atorvastatin Calcium (LIPITOR) 80 MG DAILY@2100 PO Ursodiol (ActigalL) 300 MG C BK DIN PO Insulin Human Lispro (HUMALOG) 10 UNIT AC DIN MARR BQ Insulin Human Lispro (HUMALOG) 0 AC HS SUBQ Sterile Water (WATER FOR IRRIGATION) DRESSING CH SHERICE ASDIR PRN IRR Aspirin (ASPIRIN) 81 MG DAILY PO Citalopram Hydrobromide (CeleXA) 20 MG DAILY PO Metoprolol Tartrate (LOPRESSOR) 25 MG DAILY PO Tamsulosin HCl (Flomax 0.4 mg) 0.4 MG DAILY PO Ondansetron HCl (ZOFRAN) 4 MG Q6H PRN PRN IV I O: 24 hour I O ending at 0700: 01/11 0700 01/10 1900 Intake Total Output Total 600 850 Balance -600 -850 Output, Urine 600 850 Dietitian nutrition assessment The data set between the solid lines has been im ported from the dietitian's assessment. BMI Calculated: 26.8 Nutrition related diagnosis: Nutrition diagnosis details: Nutrition problem: Nutrition etiology: Nutrition signs and symptoms: Nutrition prescription: Dietitian name: Assessment completed: Physical Exam Wound/incision: Location: left foot Site condition: drainage, dressing saturated, e cchymosis, erythema, eschar, necrotic tissue, odor, left foot dp/pt 1/4 light touch decreased. wound anterior left ankle. seropurulent imelda inage. ulcer extensive from medial left hindfoot to medial left midfoot. into marr b q layer. no ability to invert the left foot. foot is deformed. it is severely everted. no lymphang itis. LE vascular pulse assess: 1+ L posterior tibialis, 1+ L dorsalis pedis Results Findings/Data: Laboratory Tests: 01/11 01/11 01/11 01/11 01/10 1701 1208 0909 0620 2205 Chemistry Sodium (134 - 147 mEq/L) 133 L Potassium (3.4 - 5.0 mEq/L) 3.8 Chloride (100 - 108 mEq/L) 96 L Carbon Dioxide (21 - 33 mEq/l) 29 Anion Gap (0 - 20) 12 BUN (7 - 18 mg/dL) 20 H Creatinine (0.6 - 1.3 mg/dL) 1.1 Glomerular Filtr Rate (80 - 90) 73.6 L Glucose (70 - 110 mg/dL) 244 H POC Glucose (70 - 110 MG/DL) 377 H 372 H 246 H 182 H Calcium (8.0 - 10.5 mg/dL) 9.5 Hematology WBC (4.5 - 11.0 x10 3/uL) 14.6 H RBC (4.00 - 5.60 x10 6/uL) 3.46 L Hgb (12.5 - 16.9 g/dL) 9.8 L Hct (37.5 - 50.7 %) 31.1 L MCV (81.0 - 99.0 fL) 89.9 MCH (27.0 - 33.0 pg) 28.3 MCHC (33.0 - 37.0 g/dL) 31.5 L RDW (11.5 - 14.5 %) 15.6 H Plt Count (150 - 400 x10 3/uL) 602 H MPV (7.0 - 9.0 fL) 11.6 H Neut % (Auto) (56.0 - 77.0 %) 66.6 Lymph % (Auto) (14.0 - 32.0 %) 21.7 Kern % (Auto) (4.8 - 9.0 %) 9.0 Eos % (Auto) (0.3 - 3.7 %) 1.9 Baso % (Auto) (0.0 - 2.0 %) 0.4 Neut # (Auto) (2.0 - 7.6 x10 3/uL) 9.74 H Lymph # (Auto) (1.0 - 3.8 x10 3/uL) 3.17 Kern # (Auto) (0.1 - 0.8 x10 3/uL) 1.31 H Eos # (Auto) (0.0 - 0.2 x10 3/uL) 0.28 H Baso # (Auto) (0.0 - 0.2 x10 3/uL) 0.06 Abs Immat Gran (auto) (0.00 - 0.03 0.06 H x10 3/uL) Add Manual Diff NO Immature Gran % (0.0 - 2.0 %) 0.4 Nucleated RBC % (0 - 0 %) 0.0 Nucleated RBCs # (Man) (0.0 - 0.1 0.00 x10 3/uL) Results: labs reviewed Diagnosis, Assessment Plan Free Text A P: DM with neuropathy PVD wound left ankle ulcer left foot leukocytosis cellulitis left foot ankle fracture and dislocation veraflo wound vac mwf IV abx culture left ankle and left foot--results discus sed with patient continue IV abx, ID on board Veraflo wound vac applied to LLE left foot xray: no gas. no erosions. offloading boots. arterial studies--discussed with patient Plan Dispo: Snf Electronically Signed by Faby Wharton DPM on 07/05 at 1921 RPT #:[id number] END OF REPORT 2022-01-11 [facility] 12:06:00-00:00 [facility] ([facility]) Hospitalist Progress Note REPORT#:[id number] REPORT STATUS: Signed DATE:01/11/22 TIME: 1206 PATIENT: PEDRO MCGREGOR UNIT #: [id number] ROOM/BED: [place] [address] : 54 AGE: 66 SEX: M ATTEND: Jean-Paul Ward od, MD ADM AUTHOR: Lexa Samson NP * ALL edits or amendments must be made on the Material Mix/computer document * Subjective Chief complaint: He is waiting for SNF approval. Tolreating wound care. Left LE and foot pain controlled. No CP, fever, chills. No N/v/D. BP and HR stable. Bhardwaj in placed. Review of Systems Constitutional: Reports: fatigue, generalized weakness. Allergy/Immun: Denies: anaphylaxis, hives, itching. ENT: Denies: ear ringing, earache , hearing loss, nose bleeding, sinus problem, throat pain. Respiratory: Denies: hemoptysis, parox nocturnal dyspnea, ple uritic pain, pneumonia. Cardiovascular: Denies: chest pain, edema, palpitations. GI: Denies: anorexia, diarrhea, dysphagia, hematemesis, hematochezia, hiatal hernia. : Denies: frequency, penile discharge, urgency. Endocrine: Denies: polydipsia, polyphagia, polyuria. Objective General VS/I O: Vital Signs: Date Time Temp Pulse Resp B/P B/P Pulse O2 O2 F low FiO2 Mean Ox Delivery Rate 01/11 1045 96 12 137/65 99 01/11 1030 98 13 154/84 98 01/11 1028 Nasal 2 cannula 01/11 1015 98 14 150/73 96 01/11 1000 94 16 149/69 93 01/11 0945 96 13 157/73 94 01/11 930 96 14 147/67 95 01/12 924 96 15 140/65 95 01/11 919 98 15 156/66 97 01/11 914 Simple 6 mask 01/11 914 98 13 143/67 97 01/11 0909 98 14 147/59 97 Room air 01/11 0904 37.6 96 12 162/71 100 Simple mask 01/11 0317 36.5 73 17 108/62 77.7 97 01/11 0102 36.3 81 17 117/68 84.5 96 01/10 2100 Nasal 2 cannula 01/10 203 37.0 68 17 118/85 95.8 97 01/10 1723 36.8 75 18 115/67 83.1 99 Room air 01/10 1210 36.9 83 16 113/62 78.9 99 24 hour I O ending at 0700: 01/11 0700 01/10 1900 Intake Total Output Total 600 850 Balance -600 -850 Output, Urine 600 850 PATIENT WEIGHT: Weight (lb): Weight (oz): Weight (kg): 100.000 Medications: Active Meds + DC'd Last 24 Hrs Diphenhydramine HCl (BENADRYL) 12.5 MG PACU ONCE PRN IV Fentanyl Citrate (SUBLIMAZE) 100 MCG PACU Q10MIN PRN PRN IV Fentanyl Citrate (SUBLIMAZE) 50 MCG PACU Q10MIN PRN PRN IV Hydralazine HCl (APRESOLINE) 5 MG PACU Q10MIN TN N PRN IV Hydrocodone Bitart/Acetaminophen (NORCO 5/325) 1 TAB PACU ONCE PO (CKD) Hydromorphone HCl (DILAUDID) 1 MG PACU Q10MIN TN N PRN IV Hydromorphone HCl (DILAUDID) 0.5 MG PACU Q5MIN P RN PRN IV Insulin Human Lispro (HUMALOG) 0 PACU ONCE PRN S UBQ Labetalol HCl (LABETALOL HCL) 5 MG PACU Q10MIN P RN PRN IV Meperidine HCl (MEPERIDINE HCL/PF) 12.5 MG PACU ONCE PRN IV Morphine Sulfate (morphine SULFATE) 2 MG PACU Q1 0MIN PRN PRN IV Ondansetron HCl (ZOFRAN) 4 MG PACU ONCE PRN IV Promethazine HCl (PHENERGAN) 25 MG PACU ONCE PRN PO Ropivacaine (NAROPIN 0.5% 150 MG/30mL) 150 MG DIR PRN LOCAL Sodium Chloride (SODIUM CHLORIDE 0.9%) 1,000 ML .Q24H IV Tramadol HCl (ULTRAM) 50 MG PACU ONCE PO (CKD) Norepinephrine Bitartrate (LEVOPHED BITARTATE) 0 .STK-MED ONE IV (DC) Phenylephrine HCl (TARYN-SYNEPHRINE 1000MCG/NS 10M L INJ) 0 .STK-MED ONE I- MARCO A (DC) Dexamethasone Sodium Phosphate (DECADRON) 0 .STK -MED ONE .ROUTE (DC) Fentanyl Citrate (SUBLIMAZE) 0 .STK-MED ONE .ROU TE (DC) Lidocaine HCl (XYLOCAINE) 0 .STK-MED ONE .ROUTE (DC) Ondansetron HCl (ZOFRAN) 0 .STK-MED ONE .ROUTE ( DC) Propofol (DIPRIVAN 200MG/20ML INJECTION) 20 ML . STK-MED ONE IV (DC) Sodium Chloride (SODIUM CHLORIDE) 10 ML BID IV Sodium Chloride (SODIUM CHLORIDE) 10 ML ASDIR TN N IV Acetaminophen (TYLENOL EXTRA STRENGTH) 1,000 MG PREOP ONCALL PO (CKD) Gabapentin (NEURONTIN) 200 MG PREOP ONCALL PO (C KD) Lactated Ringer's (LACTATED RINGERS) 1,000 ML TN EOP ONCALL IV Lidocaine HCl (LIDOCAINE HCL/PF) 2 ML PREOP ONCA LL LOCAL Lidocaine HCl (LIDOCAINE HCL/PF) 2 ML PREOP ONCA LL LOCAL Sodium Chloride (SODIUM CHLORIDE 0.9%) 500 ML TN EOP ONCALL IV Sodium Chloride (SODIUM CHLORIDE 0.9%) 500 ML TN EOP ONCALL IV Sodium Chloride (SODIUM CHLORIDE 0.9%) 1,000 ML PREOP ONCALL IV Sodium Chloride (SODIUM CHLORIDE) 5 ML ASDIR PRN IV Sodium Chloride (SODIUM CHLORIDE) 10 ML ASDIR TN N IV Sodium Chloride (SODIUM CHLORIDE 0.9%) 250 ML DIR PRN IV Sodium Hypochlorite (DAKIN'S / STR (0.125%) 47 3ML) 1 APPLIC DAILY TOPICAL Acetaminophen (TYLENOL) 650 MG Q4H PRN PRN PO Dextrose/Water (DEXTROSE 10% IN WATER) 125 ML DIR PRN IV (CKD) Dextrose/Water (DEXTROSE 10% IN WATER) 250 ML DIR PRN IV (CKD) Glucagon (GLUCAGON) 1 MG ASDIR PRN IM Hydromorphone HCl (DILAUDID) 0.5 MG Q4H PRN PRN IV Gabapentin (NEURONTIN) 300 MG BEDTIME PO Insulin Human Lispro (HUMALOG) 10 UNIT AC BK GRACE SUBQ Furosemide (LASIX) 40 MG DAILY PO Loratadine (CLARITIN) 10 MG DAILY PO Tramadol HCl (ULTRAM) 100 MG Q6H PRN PRN PO (DC) Amitriptyline HCl (ELAVIL) 25 MG BEDTIME PO Atorvastatin Calcium (LIPITOR) 80 MG DAILY@2100 PO Ursodiol (ActigalL) 300 MG C BK DIN PO Insulin Human Lispro (HUMALOG) 10 UNIT AC DIN MARR BQ Insulin Human Lispro (HUMALOG) 0 AC HS SUBQ Sterile Water (WATER FOR IRRIGATION) DRESSING CH SHERICE ASDIR PRN IRR Aspirin (ASPIRIN) 81 MG DAILY PO Citalopram Hydrobromide (CeleXA) 20 MG DAILY PO Metoprolol Tartrate (LOPRESSOR) 25 MG DAILY PO Tamsulosin HCl (Flomax 0.4 mg) 0.4 MG DAILY PO Ondansetron HCl (ZOFRAN) 4 MG Q6H PRN PRN IV Dietitian nutrition assessment The data set between the solid lines has been im ported from the dietitian's assessment. BMI Calculated: 26.8 Nutrition related diagnosis: Nutrition diagnosis details: Nutrition problem: Nutrition etiology: Nutrition signs and symptoms: Nutrition prescription: Dietitian name: Assessment completed: Physical Exam General appearance: alert, awake, oriented Head/Eyes: atraumatic, EOMI ENT: moist mucosal membranes Neck: full range of motion, normal thyroid Cardiovascular: normal heart sounds, regular rat e rhythm Respiratory: aerating well, clear to auscultatio n, symmetric expansion Abdomen: non-tender, normal bowel sounds, soft Genitourinary: urinary catheter Extremities: no clubbing, no cyanosis, left foot : drssing C/D/I Neuro/METAL WELDER: alert, oriented X 3 Psychiatry: normal affect, normal mood Results Findings/Data: Laboratory Tests 01/11 01/11 01/10 01/10 0909 0620 2205 1732 Chemistry Sodium (134 - 147 mEq/L) 133 L Potassium (3.4 - 5.0 mEq/L) 3.8 Chloride (100 - 108 mEq/L) 96 L Carbon Dioxide (21 - 33 mEq/l) 29 Anion Gap (0 - 20) 12 BUN (7 - 18 mg/dL) 20 H Creatinine (0.6 - 1.3 mg/dL) 1.1 Glomerular Filtr Rate (80 - 90) 73.6 L Glucose (70 - 110 mg/dL) 244 H POC Glucose (70 - 110 MG/DL) 246 H 182 H 279 H Calcium (8.0 - 10.5 mg/dL) 9.5 Laboratory Tests 01/11 0620 Hematology WBC (4.5 - 11.0 x10 3/uL) 14.6 H RBC (4.00 - 5.60 x10 6/uL) 3.46 L Hgb (12.5 - 16.9 g/dL) 9.8 L Hct (37.5 - 50.7 %) 31.1 L MCV (81.0 - 99.0 fL) 89.9 MCH (27.0 - 33.0 pg) 28.3 MCHC (33.0 - 37.0 g/dL) 31.5 L RDW (11.5 - 14.5 %) 15.6 H Plt Count (150 - 400 x10 3/uL) 602 H MPV (7.0 - 9.0 fL) 11.6 H Neut % (Auto) (56.0 - 77.0 %) 66.6 Lymph % (Auto) (14.0 - 32.0 %) 21.7 Kern % (Auto) (4.8 - 9.0 %) 9.0 Eos % (Auto) (0.3 - 3.7 %) 1.9 Baso % (Auto) (0.0 - 2.0 %) 0.4 Neut # (Auto) (2.0 - 7.6 x10 3/uL) 9.74 H Lymph # (Auto) (1.0 - 3.8 x10 3/uL) 3.17 Kern # (Auto) (0.1 - 0.8 x10 3/uL) 1.31 H Eos # (Auto) (0.0 - 0.2 x10 3/uL) 0.28 H Baso # (Auto) (0.0 - 0.2 x10 3/uL) 0.06 Abs Immat Gran (auto) (0.00 - 0.03 x10 3/uL) 0. 06 H Add Manual Diff NO Immature Gran % (0.0 - 2.0 %) 0.4 Nucleated RBC % (0 - 0 %) 0.0 Nucleated RBCs # (Man) (0.0 - 0.1 x10 3/uL) 0. 00 Results: labs reviewed, vital signs reviewed, vi maida signs stable, current med profile rev'd Treatment Prophylaxis Treatment Prophylaxis Oxygen: room air Diagnosis, Assessment Plan Code status: full code Plan discussed with: patient, admitting physicia n, consultants, nurse Free Text DxA P Notes Free text DxA P notes: Assessment and PlaN; - Bacteremia , recurrent Enterococcal Faecalis b acteremia. - Sepsis POA due to left foot OM. - Left Foot OM failed Outpt treatment. - Non healing wound of Left foot. - Hyponatremia - Left foot pain due to OM. - HX of HTN, HLD, DM type II, Liver disa se, Heart disease, diabetes neuropathy - Over weight 26.8. - On bhardwaj 2/2 non weight bearing of foot - UA positive for LE, UTI - Hypomagnesemia-replaced - PVD Plan: Floor. Pending [facility] SNF for ABX and wound care. Will go to [facility]. PICC Line Pending. Left Ankle wound cx showed ENTEROCOCCUS FAECALIS and Left foot wound cx showed ESCHERICHIA COLI/ENTEROCOCCUS SPECIES. S/P reduction of fracture with external fixation . s/p YOLA today was negative for endocarditis. CM for SNF placement. PAIN CONTROL IV abx per ID f/u Cardiology Vascular sx CONSULT Appreciated Podiatry for Left foot wound. ID for left foot OM. Pain meds. Antiemetics. Glycemic control, accu check AC HS, ISS. Diabetic diet. Follow labs and replace as needed. Continue home meds. Monitor. Electronically Signed by Lexa Samson NP on at 1208 Electronically Signed by Chelo Ward MD on 1 03/28/21 at 1840 RPT #:[id number] END OF REPORT 2022-01-11 [facility] 12:03:00-00:00 [facility] ([facility]) Infectious Dis. Progress Note REPORT#:[id number] REPORT STATUS: Signed DATE:01/11/22 TIME: 1203 PATIENT: PEDRO MCGREGOR UNIT #: [id number] ROOM/BED: [address] : [address] AGE: 66 SEX: M ATTEND: Jean-Paul Ward od, MD ADM AUTHOR: Enrrique King MD * ALL edits or amendments must be made on the Material Mix/computer document * Subjective Chief complaint: LEFT FOOT INFECTION HPI: [facility] 66[facility] of peripheral vascular disease, type 2 diabetes and neuropat hy who has been admitted for a left foot infection. He was admitted earlier this month to [facility] and was found to have a complicated gas-forming polymicrobial in fection of the left leg including osteomyelitis and septic arthritis of the left foot and ankle. His wound cultures grew Ente rococcus faecalis B fragilis, and gram-negative rods including Proteus. He also had Enterococcus faecalis bacteremia in November. He was treated multiple times with appropriate a ntibiotics but was thought to lack source control and was recommended BKA at t hat time. His blood cultures are now again growing Enteroc occus species. Patient reports: No: abdominal pain, back pain, burning w ith urination, cough, diarrhea, fever, headache, nausea, pain controlled. Objective Physical Exam Wound/incision: Location: Left foot and ankle ulcers dressing saturated Head/Eyes: atraumatic, clear cornea ENT: moist mucosal membranes, normal dentition Neck: full range of motion, non-tender Cardiovascular: normal heart sounds, regular rat e rhythm Respiratory: clear to auscultation, aerating wel l Abdomen: non-tender, normal bowel sounds Results Findings/Data: Laboratory Tests 01/11 01/11 01/10 01/10 0909 0620 2205 1732 Chemistry Sodium (134 - 147 mEq/L) 133 L Potassium (3.4 - 5.0 mEq/L) 3.8 Chloride (100 - 108 mEq/L) 96 L Carbon Dioxide (21 - 33 mEq/l) 29 Anion Gap (0 - 20) 12 BUN (7 - 18 mg/dL) 20 H Creatinine (0.6 - 1.3 mg/dL) 1.1 Glomerular Filtr Rate (80 - 90) 73.6 L Glucose (70 - 110 mg/dL) 244 H POC Glucose (70 - 110 MG/DL) 246 H 182 H 279 H Calcium (8.0 - 10.5 mg/dL) 9.5 Laboratory Tests 01/11 0620 Hematology WBC (4.5 - 11.0 x10 3/uL) 14.6 H RBC (4.00 - 5.60 x10 6/uL) 3.46 L Hgb (12.5 - 16.9 g/dL) 9.8 L Hct (37.5 - 50.7 %) 31.1 L MCV (81.0 - 99.0 fL) 89.9 MCH (27.0 - 33.0 pg) 28.3 MCHC (33.0 - 37.0 g/dL) 31.5 L RDW (11.5 - 14.5 %) 15.6 H Plt Count (150 - 400 x10 3/uL) 602 H MPV (7.0 - 9.0 fL) 11.6 H Neut % (Auto) (56.0 - 77.0 %) 66.6 Lymph % (Auto) (14.0 - 32.0 %) 21.7 Kern % (Auto) (4.8 - 9.0 %) 9.0 Eos % (Auto) (0.3 - 3.7 %) 1.9 Baso % (Auto) (0.0 - 2.0 %) 0.4 Neut # (Auto) (2.0 - 7.6 x10 3/uL) 9.74 H Lymph # (Auto) (1.0 - 3.8 x10 3/uL) 3.17 Kern # (Auto) (0.1 - 0.8 x10 3/uL) 1.31 H Eos # (Auto) (0.0 - 0.2 x10 3/uL) 0.28 H Baso # (Auto) (0.0 - 0.2 x10 3/uL) 0.06 Abs Immat Gran (auto) (0.00 - 0.03 x10 3/uL) 0. 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 4-Peripheral vascular disease Recommendations Zosyn monotherapy given microbiology Cardiology consult for YOLA Repeat blood cultures until negative Vascular surgery consultation for possib le angiogram and correction of disease 01/03 Continue antibiotics Await debridement by podiatry Await vascular intervention Await YOLA 01/04 For angiogram tommorow Continue Zosyn 01/05 The YOLA is negative Angiogram is pending Surgical intervention is pending We will arrange long-term antibiotics after proc edures are completed 01/06 Status post external fixator placement Continue IV Zosyn Will arrange long-term IV antibiotics on dischar ge Likely will need amputation in the near future 01/07 Will order home infusion with Zosyn and a PICC l ine 01/10 Continue Zosyn SNF is planned and is pending 01/11 For angiogram today Continue antibiotics Electronically Signed by Enrrique King MD on at 1204 RPT #:[id number] END OF REPORT 2022-01-11 [id number] [facility] 11:16:00-00:[address] [place] [id number] PATIENT NAME: PEDRO MCGREGOR ADMIT DATE: 12/30/21 ACCOUNT NO: [id number] ROOM NO: [id number] AGE: 66 REPORT TYPE: OPERATIVE REPORT SEX: M ADMITTING PHYSICIAN:Chelo Ward MD ATTENDING PHYSICIAN:Chelo Ward MD OPERATION DATE: 01/05/2022 TIME: 2130. PREOPERATIVE DIAGNOSES: 1. Comminuted displaced bimalleolar ankle fractu re.left ankle 2. Tibiotalar dislocation and subluxation.left a nkle POSTOPERATIVE DIAGNOSES: 1. Comminuted displaced bimalleolar ankle fractu re.left ankle 2. Tibiotalar dislocation and subluxation.left a nkle PROCEDURE: 1. Open reduction of bimalleolar ankle fracture. left ankle 2. 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 ESTIMATED BLOOD LOSS: 50 mL. FINDINGS: Eroded and dislocated weak bimalleolar ankle fracture.left ankle SPECIMEN: None. HEMOSTASIS: None. COMPLICATIONS: None. INDICATIONS: This is a 66-year-old male with a a joe-mentioned diagnoses. Discussed surgical intervention with the patient in detail. No guarantees of outcome were given or implied. Preoperative stud ies including CT scan consistent with the above-mentioned diagnoses. V erbal and written consent was obtained and placed in the patient's chart. PROCEDURE IN DETAIL: The pat ient was seen in the preoperative area, transferred to the operating room and pl aced on the operating table in supine position. The left foot, ankle and the low er extremity was scrubbed, prepped and draped in the usual aseptic manner. Timeout was initiated. We utilized first #15 blade and PATIENT NAME: PEDRO MCGREGOR an incision was made over the lateral aspect of the left ankle where the valgus to be tibiotalar disarticulation was noti autumn. Blunt dissection performed in supine position. Care was taken to avoid neurovascular bundle. All bleeders were cauterized with a Bovie. The t alus was identified and seen in a subluxed position and valgus rotation. We u tilized a fluoroscopy along with maneuvering technique where the ankle was d istracted and reduced into a more rectus anatomic alignment. A temporary wire was applied at this point. At this point, the open reduction was completed. The desired anatomic alignment was maintained and obtained. We utiliz ed a 280 circular external fixation frame by [employer]. Following manufacture protocol, the external fixation was applied with 2 tibial rings and one foot ring. All 4 K-wires were applied at the proximal and distal tibial r ing following manufacture protocol with tightening and tensioning. The 2 c alcaneal olive wires were applied at the posterior wall of the calcaneus c rossing each other, one from medial and another one from the lateral aspects of the calcaneal wall following manufacture protocol with pulling and tightening. Another 2 K-wires of the forefoot segment penetrating firs t to fifth metatarsal was 2 olive wire opposite direction from each other with tighteni ng and tensioning, again following teaching assistant protocol. Therefore, flex ion with [TIME: 04:35] alignment at the ankle joint with reduct ion of the fracture was maintained and stabilized and fixated. The incision was flushed with copious amounts of normal saline. All small wounds were left open t o allow adequate drainage for any kind of entrapped infected tissue or purulen t drainage to exit and the wound was packed with Dakin solution, 4 x 4s, Ke rlix, and Mg. The patient tolerated the procedure and anesthesia well. The patient was transferred from the operating room to recovery room with vital s igns stable, [TIME: 05:06] vascular status. The patient will be disc harged to his inpatient room for continuous IV antibiotics administration, me dical management. We will continue to follow while inpatient. Dictated By: Faby Wharton DPM Date Dictated: 01/11/2022 11:16:58 Date Transcribed: 01/11/2022 13:03:46 JORGE/ABRAM/HERBIE Receipt ID: [id number] Authenticated and Edited by Faby Wharton DPM On 01/23/22 11:49:49 PM Electronically Signed by Faby Wharton DPM on at 1151 PATIENT NAME: PEDRO MCGREGOR 2022-01-11 [facility] 10:40:00-00:00 [facility] Podiatry Progress Note REPORT#:[id number] REPORT STATUS: Signed DATE:01/11/22 TIME: 1040 PATIENT: PEDRO MCGREGOR UNIT #: [id number] RO[address]BED: [address] : [address] AGE: 66 SEX: M ATTEND: Jean-Paul Ward od, MD ADM AUTHOR: Faby Wharton DPM * ALL edits or amendments must be made on the Material [email or web address] document * Subjective Chief complaint: left foot infection HPI: FOOT ULCER Objective General VS: Last Documented: Result Date Time O2 Delivery Nasal cannula 01/11 1028 O2 Flow Rate 2 01/11 1028 Pulse Ox 94 01/11 0945 B/P 157/73 01/11 0945 Pulse 96 01/11 0945 Resp 13 01/11 945 Temp 37.6 01/12 904 B/P Mean 77.7 01/11 317 PATIENT WEIGHT: Weight (lb): Weight (oz): Weight (kg): 100.000 Medications: Active Meds + DC'd Last 24 Hrs Diphenhydramine HCl (BENADRYL) 12.5 MG PACU ONCE PRN IV (UNV) Fentanyl Citrate (SUBLIMAZE) 100 MCG PACU Q10MIN PRN PRN IV (UNV) Fentanyl Citrate (SUBLIMAZE) 50 MCG PACU Q10MIN PRN PRN IV (UNV) Hydralazine HCl (APRESOLINE) 5 MG PACU Q10MIN TN N PRN IV (PEND) Hydrocodone Bitart/Acetaminophen (NORCO 5/325) 1 TAB PACU ONCE PO (UNV) Hydromorphone HCl (DILAUDID) 1 MG PACU Q10MIN TN N PRN IV (UNV) Hydromorphone HCl (DILAUDID) 0.5 MG PACU Q5MIN P RN PRN IV (UNV) Insulin Human Lispro (HUMALOG) 0 PACU ONCE PRN S UBQ (UNV) Labetalol HCl (LABETALOL HCL) 5 MG PACU Q10MIN P RN PRN IV (UNV) Meperidine HCl (MEPERIDINE HCL/PF) 12.5 MG PACU ONCE PRN IV (UNV) Morphine Sulfate (morphine SULFATE) 2 MG PACU Q1 0MIN PRN PRN IV (UNV) Ondansetron HCl (ZOFRAN) 4 MG PACU ONCE PRN IV ( UNV) Promethazine HCl (PHENERGAN) 25 MG PACU ONCE PRN PO (UNV) Ropivacaine (NAROPIN 0.5% 150 MG/30mL) 150 MG DIR PRN LOCAL (UNV) Sodium Chloride (SODIUM CHLORIDE 0.9%) 1,000 ML .Q24H IV Tramadol HCl (ULTRAM) 50 MG PACU ONCE PO (UNV) Norepinephrine Bitartrate (LEVOPHED BITARTATE) 0 .STK-MED ONE IV (DC) Phenylephrine HCl (TARYN-SYNEPHRINE 1000MCG/NS 10M L INJ) 0 .STK-MED ONE I- MARCO A (DC) Dexamethasone Sodium Phosphate (DECADRON) 0 .STK -MED ONE .ROUTE (DC) Fentanyl Citrate (SUBLIMAZE) 0 .STK-MED ONE .ROU TE (DC) Lidocaine HCl (XYLOCAINE) 0 .STK-MED ONE .ROUTE (DC) Ondansetron HCl (ZOFRAN) 0 .STK-MED ONE .ROUTE ( DC) Propofol (DIPRIVAN 200MG/20ML INJECTION) 20 ML . STK-MED ONE IV (DC) Sodium Chloride (SODIUM CHLORIDE) 10 ML BID IV Sodium Chloride (SODIUM CHLORIDE) 10 ML ASDIR TN N IV Acetaminophen (TYLENOL EXTRA STRENGTH) 1,000 MG PREOP ONCALL PO (CKD) Gabapentin (NEURONTIN) 200 MG PREOP ONCALL PO (C KD) Lactated Ringer's (LACTATED RINGERS) 1,000 ML TN EOP ONCALL IV Lidocaine HCl (LIDOCAINE HCL/PF) 2 ML PREOP ONCA LL LOCAL Lidocaine HCl (LIDOCAINE HCL/PF) 2 ML PREOP ONCA LL LOCAL Sodium Chloride (SODIUM CHLORIDE 0.9%) 500 ML TN EOP ONCALL IV Sodium Chloride (SODIUM CHLORIDE 0.9%) 500 ML TN EOP ONCALL IV Sodium Chloride (SODIUM CHLORIDE 0.9%) 1,000 ML PREOP ONCALL IV Sodium Chloride (SODIUM CHLORIDE) 5 ML ASDIR PRN IV Sodium Chloride (SODIUM CHLORIDE) 10 ML ASDIR TN N IV Sodium Chloride (SODIUM CHLORIDE 0.9%) 250 ML DIR PRN IV Sodium Hypochlorite (DAKIN'S / STR (0.125%) 47 3ML) 1 APPLIC DAILY TOPICAL Acetaminophen (TYLENOL) 650 MG Q4H PRN PRN PO Dextrose/Water (DEXTROSE 10% IN WATER) 125 ML DIR PRN IV (CKD) Dextrose/Water (DEXTROSE 10% IN WATER) 250 ML DIR PRN IV (CKD) Glucagon (GLUCAGON) 1 MG ASDIR PRN IM Hydromorphone HCl (DILAUDID) 0.5 MG Q4H PRN PRN IV Gabapentin (NEURONTIN) 300 MG BEDTIME PO Insulin Human Lispro (HUMALOG) 10 UNIT AC BK GRACE SUBQ Furosemide (LASIX) 40 MG DAILY PO Loratadine (CLARITIN) 10 MG DAILY PO Tramadol HCl (ULTRAM) 100 MG Q6H PRN PRN PO (DC) Amitriptyline HCl (ELAVIL) 25 MG BEDTIME PO Atorvastatin Calcium (LIPITOR) 80 MG DAILY@2100 PO Ursodiol (ActigalL) 300 MG C BK DIN PO Insulin Human Lispro (HUMALOG) 10 UNIT AC DIN MARR BQ Insulin Human Lispro (HUMALOG) 0 AC HS SUBQ Sterile Water (WATER FOR IRRIGATION) DRESSING CH SHERICE ASDIR PRN IRR Aspirin (ASPIRIN) 81 MG DAILY PO Citalopram Hydrobromide (CeleXA) 20 MG DAILY PO Metoprolol Tartrate (LOPRESSOR) 25 MG DAILY PO Tamsulosin HCl (Flomax 0.4 mg) 0.4 MG DAILY PO Ondansetron HCl (ZOFRAN) 4 MG Q6H PRN PRN IV I O: 24 hour I O ending at 0700: 01/11 0700 01/10 1900 Intake Total Output Total 600 850 Balance -600 -850 Output, Urine 600 850 Dietitian nutrition assessment The data set between the solid lines has been im ported from the dietitian's assessment. BMI Calculated: 26.8 Nutrition related diagnosis: Nutrition diagnosis details: Nutrition problem: Nutrition etiology: Nutrition signs and symptoms: Nutrition prescription: Dietitian name: Assessment completed: Physical Exam Wound/incision: Location: left foot Site condition: drainage, dressing saturated, e cchymosis, erythema, eschar, necrotic tissue, odor, left foot dp/pt 1/4 light touch decreased. wound anterior left ankle. seropurulent imelda inage. ulcer extensive from medial left hindfoot to medial left midfoot. into marr b q layer. no ability to invert the left foot. foot is deformed. it is severely everted. no lymphang itis. LE vascular pulse assess: 1+ L posterior tibialis, 1+ L dorsalis pedis Results Findings/Data: Laboratory Tests: 01/11 01/11 01/10 01/10 0909 0620 2205 1732 Chemistry Sodium (134 - 147 mEq/L) 133 L Potassium (3.4 - 5.0 mEq/L) 3.8 Chloride (100 - 108 mEq/L) 96 L Carbon Dioxide (21 - 33 mEq/l) 29 Anion Gap (0 - 20) 12 BUN (7 - 18 mg/dL) 20 H Creatinine (0.6 - 1.3 mg/dL) 1.1 Glomerular Filtr Rate (80 - 90) 73.6 L Glucose (70 - 110 mg/dL) 244 H POC Glucose (70 - 110 MG/DL) 246 H 182 H 279 H Calcium (8.0 - 10.5 mg/dL) 9.5 Hematology WBC (4.5 - 11.0 x10 3/uL) 14.6 H RBC (4.00 - 5.60 x10 6/uL) 3.46 L Hgb (12.5 - 16.9 g/dL) 9.8 L Hct (37.5 - 50.7 %) 31.1 L MCV (81.0 - 99.0 fL) 89.9 MCH (27.0 - 33.0 pg) 28.3 MCHC (33.0 - 37.0 g/dL) 31.5 L RDW (11.5 - 14.5 %) 15.6 H Plt Count (150 - 400 x10 3/uL) 602 H MPV (7.0 - 9.0 fL) 11.6 H Neut % (Auto) (56.0 - 77.0 %) 66.6 Lymph % (Auto) (14.0 - 32.0 %) 21.7 Kern % (Auto) (4.8 - 9.0 %) 9.0 Eos % (Auto) (0.3 - 3.7 %) 1.9 Baso % (Auto) (0.0 - 2.0 %) 0.4 Neut # (Auto) (2.0 - 7.6 x10 3/uL) 9.74 H Lymph # (Auto) (1.0 - 3.8 x10 3/uL) 3.17 Kern # (Auto) (0.1 - 0.8 x10 3/uL) 1.31 H Eos # (Auto) (0.0 - 0.2 x10 3/uL) 0.28 H Baso # (Auto) (0.0 - 0.2 x10 3/uL) 0.06 Abs Immat Gran (auto) (0.00 - 0.03 x10 3/uL) 0. 06 H Add Manual Diff NO Immature Gran % (0.0 - 2.0 %) 0.4 Nucleated RBC % (0 - 0 %) 0.0 Nucleated RBCs # (Man) (0.0 - 0.1 x10 3/uL) 0.0 0 Results: labs reviewed Diagnosis, Assessment Plan Free Text A P: 01/10/22 DM with neuropathy PVD wound left ankle ulcer left foot leukocytosis cellulitis left foot ankle fracture and dislocation IV abx culture left ankle and left foot--results discus sed with patient continue IV abx, ID on board [employer] wound vac applied to LLE left foot xray: no gas. no erosions. offloading boots. arterial studies--discussed with patient Plan Dispo: Covering for Dr. Whraton Electronically Signed by Faby Wharton DPM on 07/05 at 1921 RPT #:[id number] END OF REPORT 2022-01-11 [facility] 09:01:00-00:00 [facility] ([facility]) Operative Note - Full REPORT#:[id number] REPORT STATUS: Signed DATE:01/11/22 TIME: 900 PATIENT: PEDRO MCGREGOR UNIT #: [id number] ROOM/BED: [place] [address] : 54 AGE: 66 SEX: M ATTEND: Jean-Paul Ward od, MD ADM AUTHOR: Adin Lopez MD * ALL edits or amendments must be made on the [employer]/computer document * Operative Report ORM Surgeries: Surgery Date and Time: 01/11/2022 0730 Proposed Primary Procedure: LEFT LEG ARTERIOGRA M Start date: 01/11/22 Start time: 744 Pre-procedure diagnosis: 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 Percutaneous ultrasound-guided active access right common femoral artery with records maintained [id number] 2. Abdominal aortogram 88918 3. Bilateral lower extremity arteriogram 69149 4. Left anterior tibial artery 0.9 laser atherec sophie with 3.0 mm balloon angioplasty 59963 5. Left posterior tibial artery and tibioperonea l trunk artery 0.9 laser atherectomy with 3.0 mm balloon angioplasty, add itional tibial vessel [id number] Technique/Procedure: The patient was brought into the operative room and prepped and draped in usual sterile manner. Percutaneous ultrasound-guided a ctive access was obtained to right common femoral artery with a microcatheter system and exchanged over a Glidewire to a 6 Barbadian X 10 cm sheath. An Omni Flush catheter was placed in the abdominal aorta and abdominal aortog uzma was performed. This is then pulled down to the bifurcation and iliac angiography wa s completed and Glidewire was used to extend omniflush catheter down to the le ft common femoral artery and left lower extremity arteriogram was completed. The patient was systemically heparinized and an advantage wire was placed int o the profunda femoris artery and a 6 Barbadian 90 cm sheath was advanced to the superfiical femoral artery and then navicross catheter was used over the advantage wire to across the anterior tibial artery occlusion and the catheter was vianey autumn and dorsalis pedis with angiography to confirm true luminal flow. 0.014 wire was placed and 0.9 laser atherectomy was completed the entire vickie gth of the anterior tibial artery with postangioplasty with a 3 mm balloon with good result. The wire was then pulled back and a Guillen cross catheter and Glidewire wer e used to cross the critical stenosis in the tibioperoneal trunk and posterio r tibial artery catheter was placed to the plantar artery with angiography to confirm true luminal flow. 0.014 wire was then placed and 0.9 laser atherec sophie was completed of the tibioperoneal trunk and post erior tibial artery with postangioplasty with a 3 mm balloon with good results. The sheath was then p ulled back to the right external iliac artery right lower extremity ro riogram was completed. Angio- Seal device to close right groin access without difficulty. The patient tolerated the procedure well. There are no compl ications. The patient was stable on discharge to the PACU. Primary Surgeon: Dr. Adin Lopez Piano Bench Assembler(s): none Anesthesia: general anesthesia Operative findings: Abdominal aortogram demonstr ates patent abdominal aorta with good flow extending to the celiac trunk, splenic artery, common hepa tic artery, gastroduodenal artery, proper hepatic artery and right left hep atic arteries. The superior mesenteric arteries patent all branches. Bilater al renal arteries are patent with good nephrograms. The inferior mese nteric artery is patent with antegrade flow. Bilateral common iliac arteries are patent to bilateral internal and external arteries. Bilateral common femoral ro britni are patent through bilateral profunda femoris and superficial femor al arteries. Bilateral popliteal arteries are patent. Bilateral anterior tibial arteries are occluded with reconstitution of the dorsalis pedis at the malleolus. The left tibioperoneal trunk has a cr itical stenosis to 70%. The left peroneal artery is being compressed malleolus. The left posterior t ibial artery has severe stenosis throughout 70 to 80%, multifoca l with pain to the plantar arteries in the foot. The right tibial trunk peroneal and posterior ti bial arteries are patent extending through the foot through branches at t he malleolus and plantar vessels. Complications: none Estimated blood loss in ml's: none Specimens removed/altered: none Implant(s): none at 0904 RPT #:[id number] END OF REPORT 2022-01-11 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 Percutaneous ultrasound-guided active access right common femoral artery with records maintained [id number] 2. Abdominal aortogram 90464 3. Bilateral lower extremity arteriogram 34621 4. Left anterior tibial artery 0.9 laser atherec sophie with 3.0 mm balloon angioplasty 41100 5. Left posterior tibial artery and tibioperonea l trunk artery 0.9 laser atherectomy with 3.0 mm balloon angioplasty, add itional tibial vessel 15580 Primary Surgeon: Dr. Adin Lopez Piano Bench Assembler(s): none Anesthesia: general anesthesia Findings: Abdominal aortogram demonstr ates patent abdominal aorta with good flow extending to the celiac trunk, splenic artery, common hepa tic artery, gastroduodenal artery, proper hepatic artery and right left hep atic arteries. The superior mesenteric arteries patent all branches. Bilater al renal arteries are patent with good nephrograms. The inferior mese nteric artery is patent with antegrade flow. Bilateral common iliac arteries are patent to bilateral internal and external arteries. Bilateral common femoral ro britni are patent through bilateral profunda femoris and superficial femor al arteries. Bilateral popliteal arteries are patent. Bilateral anterior tibial arteries are occluded with reconstitution of the dorsalis pedis at the malleolus. The left tibioperoneal trunk has a cr itical stenosis to 70%. The left peroneal artery is being compressed malleolus. The left posterior t ibial artery has severe stenosis throughout 70 to 80%, multifoca l with pain to the plantar arteries in the foot. The right tibial trunk peroneal and posterior ti bial arteries are patent extending through the foot through branches at t he malleolus and plantar vessels. Complications: none Estimated blood loss in ml's: none Specimens removed/altered: none at 0904 [facility] #:[id number] END OF REPORT 2022-01-10 [facility] 23:52:00-00:00 [facility] ([facility]) Pain Management Progress Note REPORT#:[id number] REPORT STATUS: Signed DATE:01/10/22 TIME: 2351 PATIENT: PEDRO MCGREGOR UNIT #: [id number] ROOM/BED: [place] [address] : 54 AGE: 66 SEX: M ATTEND: Jean-Paul Ward od, MD ADM AUTHOR: Betty Tejeda APRN * ALL edits or amendments must be made on the [email or web address] document * Subjective Chief Complaint: Left foot pain Comments: pt seen, no complaints of pain. denies any other issues. Review of Systems Free Text ROS Notes Free Text ROS Notes: 12 point ROS reviewed and negative unless stated otherwise Objective General VS/I O: Last Documented: Result Date Time Pulse Ox 93 01/14 1701 B/P 111/63 01/14 1701 B/P Mean 79.0 01/14 1701 Pulse 90 01/14 170 Resp 16 01/14 1701 O2 Delivery Room air 01/14 437 Temp 36.8 01/14 437 O2 Flow Rate 2 01/110 PATIENT WEIGHT: Weight (lb): Weight (oz): Weight (kg): 100.000 Medications: Active Meds + DC'd Last 24 Hrs Sodium Chloride (SODIUM CHLORIDE) 10 ML BID IV Sodium Chloride (SODIUM CHLORIDE) 10 ML ASDIR TN N IV Acetaminophen (TYLENOL EXTRA STRENGTH) 1,000 MG PREOP ONCALL PO (CKD) Gabapentin (NEURONTIN) 200 MG PREOP ONCALL PO ( CKD) Lactated Ringer's (LACTATED RINGERS) 1,000 ML TN EOP ONCALL IV Lidocaine HCl (LIDOCAINE HCL/PF) 2 ML PREOP ONCA LL LOCAL Lidocaine HCl (LIDOCAINE HCL/PF) 2 ML PREOP ONCA LL LOCAL Sodium Chloride (SODIUM CHLORIDE 0.9%) 500 ML TN EOP ONCALL IV Sodium Chloride (SODIUM CHLORIDE 0.9%) 500 ML TN EOP ONCALL IV Sodium Chloride (SODIUM CHLORIDE 0.9%) 1,000 ML PREOP ONCALL IV Sodium Chloride (SODIUM CHLORIDE) 5 ML ASDIR PRN IV Sodium Chloride (SODIUM CHLORIDE) 10 ML ASDIR TN N IV Sodium Chloride (SODIUM CHLORIDE 0.9%) 250 ML DIR PRN IV Sodium Hypochlorite (DAKIN'S / STR (0.125%) 47 3ML) 1 APPLIC DAILY TOPICAL Acetaminophen (TYLENOL) 650 MG Q4H PRN PRN PO Dextrose/Water (DEXTROSE 10% IN WATER) 125 ML DIR PRN IV (CKD) Dextrose/Water (DEXTROSE 10% IN WATER) 250 ML DIR PRN IV (CKD) Glucagon (GLUCAGON) 1 MG ASDIR PRN IM Hydromorphone HCl (DILAUDID) 0.5 MG Q4H PRN PRN IV Gabapentin (NEURONTIN) 300 MG BEDTIME PO Insulin Human Lispro (HUMALOG) 10 UNIT AC BK GRACE SUBQ Furosemide (LASIX) 40 MG DAILY PO Loratadine (CLARITIN) 10 MG DAILY PO Tramadol HCl (ULTRAM) 100 MG Q6H PRN PRN PO Amitriptyline HCl (ELAVIL) 25 MG BEDTIME PO Atorvastatin Calcium (LIPITOR) 80 MG DAILY@2100 PO Ursodiol (ActigalL) 300 MG C BK DIN PO Insulin Human Lispro (HUMALOG) 10 UNIT AC DIN MARR BQ Insulin Human Lispro (HUMALOG) 0 AC HS SUBQ Sterile Water (WATER FOR IRRIGATION) DRESSING CH SHERICE ASDIR PRN IRR Aspirin (ASPIRIN) 81 MG DAILY PO Citalopram Hydrobromide (CeleXA) 20 MG DAILY PO Metoprolol Tartrate (LOPRESSOR) 25 MG DAILY PO Tamsulosin HCl (Flomax 0.4 mg) 0.4 MG DAILY PO Ondansetron HCl (ZOFRAN) 4 MG Q6H PRN PRN IV Physical Exam General appearance: alert, awake, oriented Head/Eyes: atraumatic, EOMI, normocephalic ENT: normal nose, normal sinus, moist mucosal me mbranes Neck: no masses or swelling, supple/no meningism us Cardiovascular: normal capillary refill, regular rate rhythm Respiratory: no distress, aerating well, symmetr ic expansion Abdomen: non-tender, no rebound, no distention Extremities: no edema, no clubbing, no c yanosis, decreased range of motion (of LLE 2/2 pain) Neuro/METAL WELDER: alert, oriented X 3, normal speech Skin: dry, intact, warm Results Results: no new labs, vital signs stable Diagnosis, Assessment Plan Free text A P: Pedro Mcgregor is a 66yo male with PMH of DM II, HTN, CAD, HLD, and diabetic ulcers that was admitted with a left foot infection. 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 Dilaudid IV 0.5mg Q4hrs PRN severe pain Tramadol 100mg PO Q6hrs PRN moderate pain Gabapentin 300mg PO QHS for neuropathic pain s/p reduction of fracture with external fixation on 01/05/22 Left foot infection - abx, podiatry following, p ending left BKA or LLE arteriogram on 01/05/22 Bacteremia - s/p YOLA on 01/04/22 DM - SSI HLD - Lipitor HTN - Metoprolol BPH - Flomax CAD - ASA 81mg DC planning to SNF Please hold all narcotics for SBP < 90mm hg, Respiratory rate <8bpm, or altered mentation. Please call with any questions or concerns Thank you for allowing me to participate in this patient's care. Plan of care discussed with Dr. Posada and Dr. Felipe kumar, patient, primary team, and RN. All questions answered. Patient agrees w ith above plan of care. All diagnostic studies, ASSISTANT CHIEF TRAIN DISPATCHER, and labs in the pas t 24 hours reviewed and interpreted with Dr. Posada and Dr. Carter. [place] ASSISTANT CHIEF TRAIN DISPATCHER verified 12/31/21 at 1324 Electronically Signed by Kanwal Carter DO on 0 02/16/22 at 1545 RPT #:[id number] END OF REPORT 2022-01-10 [facility] 13:27:00-00:00 [facility] Cardiology Progress Note REPORT#:[id number] REPORT STATUS: Signed DATE:01/10/22 TIME: 1327 PATIENT: PEDRO MCGREGOR UNIT #: [id number] ROOM/BED: 5506-1 : 54 AGE: 66 SEX: M ATTEND: Jean-Paul Ward od, MD ADM AUTHOR: Corona Sims LINK CUTTER * ALL edits or amendments must be made on the Material Mix/computer document * Corona Sims 01/10/22 1327: Subjective Chief complaint: F/U bacteremia Objective General VS/I O: 24 hour I O ending at 0700: 01/10 0700 01/09 1900 Intake Total Output Total 1850 Balance -1850 Output, Urine 1850 Vital Signs: Date Time Temp Pulse Resp B/P B/P Pulse O2 O2 F low FiO2 Mean Ox Delivery Rate 01/10 1210 98.4 83 16 113/62 78.9 99 01/10 0739 98.4 104 16 118/72 87.4 95 01/10 0403 97.5 103 20 113/71 84.9 96 Room air 01/09 2341 98.4 94 20 120/74 0.0 94 Room air 01/09 2000 Nasal 2 cannula 01/09 1950 98.1 88 20 118/66 83.6 94 01/09 1554 91 14 132/71 91.2 94 Room air PATIENT WEIGHT: Weight (lb): Weight (oz): Weight (kg): 100.000 Medications: Active Meds + DC'd Last 24 Hrs Sodium Chloride (SODIUM CHLORIDE) 10 ML BID IV Sodium Chloride (SODIUM CHLORIDE) 10 ML ASDIR TN N IV Acetaminophen (TYLENOL EXTRA STRENGTH) 1,000 MG PREOP ONCALL PO (CKD) Gabapentin (NEURONTIN) 200 MG PREOP ONCALL PO (C KD) Lactated Ringer's (LACTATED RINGERS) 1,000 ML TN EOP ONCALL IV Lidocaine HCl (LIDOCAINE HCL/PF) 2 ML PREOP ONCA LL LOCAL Lidocaine HCl (LIDOCAINE HCL/PF) 2 ML PREOP ONCA LL LOCAL Sodium Chloride (SODIUM CHLORIDE 0.9%) 500 ML TN EOP ONCALL IV Sodium Chloride (SODIUM CHLORIDE 0.9%) 500 ML TN EOP ONCALL IV Sodium Chloride (SODIUM CHLORIDE 0.9%) 1,000 ML PREOP ONCALL IV Sodium Chloride (SODIUM CHLORIDE) 5 ML ASDIR PRN IV Sodium Chloride (SODIUM CHLORIDE) 10 ML ASDIR TN N IV Sodium Chloride (SODIUM CHLORIDE 0.9%) 250 ML DIR PRN IV Sodium Hypochlorite (DAKIN'S 02/16 STR (0.125%) 47 3ML) 1 APPLIC DAILY TOPICAL Acetaminophen (TYLENOL) 650 MG Q4H PRN PRN PO Dextrose/Water (DEXTROSE 10% IN WATER) 125 ML DIR PRN IV (CKD) Dextrose/Water (DEXTROSE 10% IN WATER) 250 ML DIR PRN IV (CKD) Glucagon (GLUCAGON) 1 MG ASDIR PRN IM Hydromorphone HCl (DILAUDID) 0.5 MG Q4H PRN PRN IV Gabapentin (NEURONTIN) 300 MG BEDTIME PO Insulin Human Lispro (HUMALOG) 10 UNIT AC BK GRACE SUBQ Furosemide (LASIX) 40 MG DAILY PO Loratadine (CLARITIN) 10 MG DAILY PO Tramadol HCl (ULTRAM) 100 MG Q6H PRN PRN PO Amitriptyline HCl (ELAVIL) 25 MG BEDTIME PO Atorvastatin Calcium (LIPITOR) 80 MG DAILY@2100 PO Ursodiol (ActigalL) 300 MG C BK DIN PO Insulin Human Lispro (HUMALOG) 10 UNIT AC DIN MARR BQ Insulin Human Lispro (HUMALOG) 0 AC HS SUBQ Sterile Water (WATER FOR IRRIGATION) DRESSING CH SHERICE ASDIR PRN IRR Aspirin (ASPIRIN) 81 MG DAILY PO Citalopram Hydrobromide (CeleXA) 20 MG DAILY PO Metoprolol Tartrate (LOPRESSOR) 25 MG DAILY PO Tamsulosin HCl (Flomax 0.4 mg) 0.4 MG DAILY PO Ondansetron HCl (ZOFRAN) 4 MG Q6H PRN PRN IV Physical Exam General appearance: alert, awake, oriented, no a cute distress Head/Eyes: atraumatic ENT: moist mucosal membranes Neck: no JVD, no masses or swelling Cardiovascular: CV assessment: regular rate and rhythm Respiratory: decreased breath sounds, no distres s Abdomen: soft, non-tender Lower extremity: LE assessment: no edema Diagnosis, Assessment Plan Free Text DxA P Notes Free Text DxA P Notes: Enterococcus Bacteremia -YOLA requested -scheduled for tomorrow/ Procedure explained to the patient, no further questions 01/04 Patient seen and examined s/p YOLA today was negative for endocarditis No further cardiac work up planned Will follow as needed POC discussed with patient and Dr. Flynn 01/10 Patient seen No complaints Stable CV status Pending SNF placement POC discussed with patient and Thanh Dotson 01/15/22 2239: Attestations Physician Attestation Agree w/findings plan: Agree with the findings and plan as documented b y LINK CUTTER Lorena Levi Patient seen No complaints Stable CV status Pending SNF placement at 1637 Electronically Signed by Thanh Lombardo MD o n 01/15/22 at 2244 RPT #:[id number] END OF REPORT 2022-01-10 [facility] 12:40:00-00:00 [facility] ([facility]) Infectious Dis. Progress Note REPORT#:[id number] REPORT STATUS: Signed DATE:01/10/22 TIME: 1240 PATIENT: PEDRO MCGREGOR UNIT #: [id number] ROOM/BED: [place] [address] : 54 AGE: 66 SEX: M ATTEND: Jean-Paul Ward od, MD ADM AUTHOR: Enrrique King MD * ALL edits or amendments must be made on the Material Mix/computer document * Subjective Chief complaint: LEFT FOOT INFECTION HPI: This is a 66-year-old male p atient with history of peripheral vascular disease, type 2 diabetes and neuropat hy who has been admitted for a left foot infection. He was admitted earlier this month to [facility] and was found to have a complicated gas-forming polymicrobial in fection of the left leg including osteomyelitis and septic arthritis of the left foot and ankle. His wound cultures grew Ente rococcus faecalis B fragilis, and gram-negative rods including Proteus. He also had Enterococcus faecalis bacteremia in November. He was treated multiple times with appropriate a ntibiotics but was thought to lack source control and was recommended BKA at t hat time. His blood cultures are now again growing Enteroc occus species. Patient reports: No: abdominal pain, bowel movement, cough, diarr hea, fever, headache, pain, shortness of breath. Objective Physical Exam Wound/incision: Location: Left foot and ankle ulcers dressing saturated Head/Eyes: atraumatic, clear cornea ENT: moist mucosal membranes, normal dentition Neck: full range of motion, non-tender Cardiovascular: normal heart sounds, regular rat e rhythm Respiratory: clear to auscultation, aerating wel l Abdomen: non-tender, normal bowel sounds Results Findings/Data: Laboratory Tests 01/10 01/09 01/09 1025 1951 1533 Chemistry POC Glucose (70 - 110 MG/DL) 280 H 177 H 179 H Diagnosis, Assessment Plan Free Text A P: 1-Recurrent Enterococcus faecalis bacteremia hig h suspicion for endovascular infection including endocarditis 2-Osteomyelitis and septic arthritis of the left foot and ankle 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 4-Peripheral vascular disease Recommendations Zosyn monotherapy given microbiology Cardiology consult for YOLA Repeat blood cultures until negative Vascular surgery consultation for possib le angiogram and correction of disease 01/03 Continue antibiotics Await debridement by podiatry Await vascular intervention Await YOLA 01/04 For angiogram tommorow Continue Zosyn 01/05 The YOLA is negative Angiogram is pending Surgical intervention is pending We will arrange long-term antibiotics after proc edures are completed 01/06 Status post external fixator placement Continue IV Zosyn Will arrange long-term IV antibiotics on dischar ge Likely will need amputation in the near future 01/07 Will order home infusion with Zosyn and a PICC l ine 01/10 Continue Zosyn SNF is planned and is pending Electronically Signed by Enrrique King MD on at 1241 RPT #:[id number] END OF REPORT 2022-01-10 [facility] 11:14:00-00:00 [facility] ([facility] Hospitalist Progress Note REPORT#:[id number] REPORT STATUS: Signed DATE:01/10/22 TIME: 1114 PATIENT: PEDRO MCGREGOR UNIT #: [id number] ROOM/BED: [place] [address] : 54 AGE: 66 SEX: M ATTEND: Jean-Paul Ward od, MD ADM AUTHOR: Lexa Samson LINK CUTTER * ALL edits or amendments must be made on the el [employer]/computer document * Subjective Chief complaint: He is feeling better. Tolreating wound care. Left LE and foot pain controlled. No CP, fever, chills. No N/v/D. BP and HR stable. Bhardwaj in placed. Review of Systems Constitutional: Reports: fatigue, generalized weakness. Eyes: Denies: discharge, itching, diplopia, eye pain. Respiratory: Denies: GIBBS (dyspnea on exertion), hemoptysis, p arox nocturnal dyspnea, pleuritic pain, pneumonia, productive cough (spu lazaro), SOB. Cardiovascular: Denies: GIBBS (dyspnea on exertion), orthopnea, pa lpitations. GI: Denies: anorexia, diarrhea, GERD, hematochezia, nausea. : Denies: flank pain, hematuri a, nocturia, penile discharge, testicular swelling. Heme: Denies: bleeding, bruising. Neuro: Denies: bowel dysfunction, dizziness, focal weak ness, headache, numbness. Objective General VS/I O: Vital Signs: Date Time Temp Pulse Resp B/P B/P Pulse O2 O2 F low FiO2 Mean Ox Delivery Rate 01/10 0739 36.9 104 16 118/72 87.4 95 01/10 0403 36.4 103 20 113/71 84.9 96 Room air 01/09 2341 36.9 94 20 120/74 0.0 94 Room air 01/09 2000 Nasal 2 cannula 01/09 1950 36.7 88 20 118/66 83.6 94 01/09 1554 91 14 132/71 91.2 94 Room air 24 hour I O ending at 0700: 01/10 0700 01/09 1900 Intake Total Output Total 1850 Balance -1850 Output, Urine 1850 PATIENT WEIGHT: Weight (lb): Weight (oz): Weight (kg): 100.000 Medications: Active Meds + DC'd Last 24 Hrs Sodium Chloride (SODIUM CHLORIDE) 10 ML BID IV Sodium Chloride (SODIUM CHLORIDE) 10 ML ASDIR TN N IV Acetaminophen (TYLENOL EXTRA STRENGTH) 1,000 MG PREOP ONCALL PO (CKD) Gabapentin (NEURONTIN) 200 MG PREOP ONCALL PO (C KD) Lactated Ringer's (LACTATED RINGERS) 1,000 ML TN EOP ONCALL IV Lidocaine HCl (LIDOCAINE HCL/PF) 2 ML PREOP ONCA LL LOCAL Lidocaine HCl (LIDOCAINE HCL/PF) 2 ML PREOP ONCA LL LOCAL Sodium Chloride (SODIUM CHLORIDE 0.9%) 500 ML TN EOP ONCALL IV Sodium Chloride (SODIUM CHLORIDE 0.9%) 500 ML TN EOP ONCALL IV Sodium Chloride (SODIUM CHLORIDE 0.9%) 1,000 ML PREOP ONCALL IV Sodium Chloride (SODIUM CHLORIDE) 5 ML ASDIR PRN IV Sodium Chloride (SODIUM CHLORIDE) 10 ML ASDIR TN N IV Sodium Chloride (SODIUM CHLORIDE 0.9%) 250 ML DIR PRN IV Sodium Hypochlorite (DAKIN'S 1/4 STR (0.125%) 47 3ML) 1 APPLIC DAILY TOPICAL Acetaminophen (TYLENOL) 650 MG Q4H PRN PRN PO Dextrose/Water (DEXTROSE 10% IN WATER) 125 ML DIR PRN IV (CKD) Dextrose/Water (DEXTROSE 10% IN WATER) 250 ML DIR PRN IV (CKD) Glucagon (GLUCAGON) 1 MG ASDIR PRN IM Hydromorphone HCl (DILAUDID) 0.5 MG Q4H PRN PRN IV Gabapentin (NEURONTIN) 300 MG BEDTIME PO Insulin Human Lispro (HUMALOG) 10 UNIT AC BK GRACE SUBQ Furosemide (LASIX) 40 MG DAILY PO Loratadine (CLARITIN) 10 MG DAILY PO Tramadol HCl (ULTRAM) 100 MG Q6H PRN PRN PO Amitriptyline HCl (ELAVIL) 25 MG BEDTIME PO Atorvastatin Calcium (LIPITOR) 80 MG DAILY@2100 PO Ursodiol (ActigalL) 300 MG C BK DIN PO Insulin Human Lispro (HUMALOG) 10 UNIT AC DIN S UBQ Insulin Human Lispro (HUMALOG) 0 AC HS SUBQ Sterile Water (WATER FOR IRRIGATION) DRESSING CH SHERICE ASDIR PRN IRR Aspirin (ASPIRIN) 81 MG DAILY PO Citalopram Hydrobromide (CeleXA) 20 MG DAILY PO Metoprolol Tartrate (LOPRESSOR) 25 MG DAILY PO Tamsulosin HCl (Flomax 0.4 mg) 0.4 MG DAILY PO Ondansetron HCl (ZOFRAN) 4 MG Q6H PRN PRN IV Dietitian nutrition assessment The data set between the solid lines has been im ported from the dietitian's assessment. BMI Calculated: 26.8 Nutrition related diagnosis: Nutrition diagnosis details: Nutrition problem: Nutrition etiology: Nutrition signs and symptoms: Nutrition prescription: Dietitian name: Assessment completed: Physical Exam General appearance: alert, oriented Head/Eyes: atraumatic, EOMI ENT: moist mucosal membranes Neck: full range of motion, normal thyroid Cardiovascular: normal heart sounds, regular rat e rhythm Respiratory: aerating well, clear to auscultatio n, symmetric expansion Abdomen: non-tender, normal bowel sounds, soft Genitourinary: urinary catheter Extremities: no clubbing, no cyanosis, left foot : drssing C/D/I Neuro/METAL WELDER: alert, oriented X 3 Psychiatry: normal affect, normal mood Results Findings/Data: Laboratory Tests 01/10 01/09 01/09 1025 1951 1533 Chemistry POC Glucose (70 - 110 MG/DL) 280 H 177 H 179 H Results: labs reviewed, vital signs reviewed, vi maida signs stable, current med profile rev'd Treatment Prophylaxis Treatment Prophylaxis Oxygen: room air Diagnosis, Assessment Plan Code status: full code Plan discussed with: patient, admitting physicia n, consultants, nurse Free Text DxA P Notes Free text DxA P notes: Assessment and PlaN; - Bacteremia , recurrent Enterococcal Faecalis b acteremia. - Sepsis POA due to left foot OM. - Left Foot OM failed Outpt treatment. - Non healing wound of Left foot. - Hyponatremia - Left foot pain due to OM. - HX of HTN, HLD, DM type II, Liver disa se, Heart disease, diabetes neuropathy - Over weight 26.8. - On bhardwaj 2/2 non weight bearing of foot - UA positive for LE, UTI - Hypomagnesemia-replaced - PVD Plan: Floor. Pending SNF for ABX and wound care. [facility] go to [facility]. PICC Line Pending. Left Ankle wound cx showed ENTEROCOCCUS FAECALIS and Left foot wound cx showed ESCHERICHIA COLI/ENTEROCOCCUS SPECIES. S/P reduction of fracture with external fixation . s/p YOLA today was negative for endocarditis. CM for SNF placement. PAIN CONTROL IV abx per ID f/u Cardiology Vascular sx CONSULT Appreciated Podiatry for Left foot wound. ID for left foot OM. Pain meds. Antiemetics. Glycemic control, accu check AC HS, ISS. Diabetic diet. Follow labs and replace as needed. Continue home meds. Monitor. Electronically Signed by Lexa Samson NP on at 1116 Electronically Signed by Chelo Ward MD on 1 03/28/21 at 1838 RPT #:[id number] END OF REPORT 2022-01-10 [facility] 08:31:00-00:00 [facility] Urology Progress Note REPORT#:[id number] REPORT STATUS: Signed DATE:01/10/22 TIME: 830 PATIENT: PEDRO MCGREGOR UNIT #: [id number] ROOM/BED: [place] [address] : 54 AGE: 66 SEX: M ATTEND: Jean-Paul Ward od, MD ADM AUTHOR: Dima Forbes NP * ALL edits or amendments must be made on the Material [email or web address] document * Subjective Chief complaint: URINARY RETENTION HPI: 66-year-old male with a history of hypertension, diabetes, hyperlipidemia, osteomyelitis, and CAD admitted for left foot in [facility]. He has associated generalized weakness, chills, and nausea , vomit ing. He has been on multiple rounds of antibiotics for this infection without relief. He denies chest pain, dyspnea, changes in his bowel/bladder movements, headache, blurred vision, or any other symptoms. Urologic al consultation was sought for the evaluation of the retention of urine and Bhardwaj catheter. H is Bhardwaj was recently changed . He was found to have positive blood cultures, urine cul ture is pending. UA was abnormal. WBC's are elevated 01/10/2022 - Bhardwaj intact. no new concerns. Patient reports: no urinary pain, no abdominal p ain, no back pain Nursing reports: no urinary pain, no abdominal p ain, no back pain Objective General VS/I O: Last Documented: Result Date Time Pulse Ox 95 01/10 739 B/P 118/72 01/10 739 B/P Mean 87.4 01/10 739 Temp 36.9 01/10 739 Pulse 104 01/10 739 Resp 16 01/10 739 O2 Delivery Room air 01/10 040 O2 Flow Rate 2 01/10 2000 24 hour I O ending at 0700: 01/10 0700 01/09 1900 Intake Total Output Total 1850 Balance -1850 Output, Urine 1850 PATIENT WEIGHT: Weight (lb): Weight (oz): Weight (kg): 100.000 Medications: Active Meds + DC'd Last 24 Hrs Sodium Chloride (SODIUM CHLORIDE) 10 ML BID IV Sodium Chloride (SODIUM CHLORIDE) 10 ML ASDIR TN N IV Acetaminophen (TYLENOL EXTRA STRENGTH) 1,000 MG PREOP ONCALL PO (CKD) Gabapentin (NEURONTIN) 200 MG PREOP ONCALL PO (C KD) Lactated Ringer's (LACTATED RINGERS) 1,000 ML TN EOP ONCALL IV Lidocaine HCl (LIDOCAINE HCL/PF) 2 ML PREOP ONCA LL LOCAL Lidocaine HCl (LIDOCAINE HCL/PF) 2 ML PREOP ONCA LL LOCAL Sodium Chloride (SODIUM CHLORIDE 0.9%) 500 ML TN EOP ONCALL IV Sodium Chloride (SODIUM CHLORIDE 0.9%) 500 ML TN EOP ONCALL IV Sodium Chloride (SODIUM CHLORIDE 0.9%) 1,000 ML PREOP ONCALL IV Sodium Chloride (SODIUM CHLORIDE) 5 ML ASDIR PRN IV Sodium Chloride (SODIUM CHLORIDE) 10 ML ASDIR TN N IV Sodium Chloride (SODIUM CHLORIDE 0.9%) 250 ML DIR PRN IV Sodium Hypochlorite (DAKIN'S 02/16 STR (0.125%) 47 3ML) 1 APPLIC DAILY TOPICAL Acetaminophen (TYLENOL) 650 MG Q4H PRN PRN PO Dextrose/Water (DEXTROSE 10% IN WATER) 125 ML DIR PRN IV (CKD) Dextrose/Water (DEXTROSE 10% IN WATER) 250 ML DIR PRN IV (CKD) Glucagon (GLUCAGON) 1 MG ASDIR PRN IM Hydromorphone HCl (DILAUDID) 0.5 MG Q4H PRN PRN IV Gabapentin (NEURONTIN) 300 MG BEDTIME PO Insulin Human Lispro (HUMALOG) 10 UNIT AC BK GRACE SUBQ Furosemide (LASIX) 40 MG DAILY PO Loratadine (CLARITIN) 10 MG DAILY PO Tramadol HCl (ULTRAM) 100 MG Q6H PRN PRN PO Amitriptyline HCl (ELAVIL) 25 MG BEDTIME PO Atorvastatin Calcium (LIPITOR) 80 MG DAILY@2100 PO Ursodiol (ActigalL) 300 MG C BK DIN PO Insulin Human Lispro (HUMALOG) 10 UNIT AC DIN MARR BQ Insulin Human Lispro (HUMALOG) 0 AC HS SUBQ Sterile Water (WATER FOR IRRIGATION) DRESSING CH SHERICE ASDIR PRN IRR Aspirin (ASPIRIN) 81 MG DAILY PO Citalopram Hydrobromide (CeleXA) 20 MG DAILY PO Metoprolol Tartrate (LOPRESSOR) 25 MG DAILY PO Tamsulosin HCl (Flomax 0.4 mg) 0.4 MG DAILY PO Ondansetron HCl (ZOFRAN) 4 MG Q6H PRN PRN IV Dietitian nutrition assessment The data set between the solid lines has been im ported from the dietitian's assessment. BMI Calculated: 26.8 Nutrition related diagnosis: Nutrition diagnosis details: Nutrition problem: Nutrition etiology: Nutrition signs and symptoms: Nutrition prescription: Dietitian name: Assessment completed: Physical Exam General appearance: alert, awake, oriented Head/Eyes: atraumatic, clear cornea, EOMI, normo cephalic, normal conjunctiva/ sclera Neck: full range of motion, non-tender, no bruit /NL carotids Cardiovascular: normal capillary refill, regular rate rhythm, normal heart sounds, BP/pulses equal bilat. Respiratory: clear to auscultation, no distress, no tenderness, aerating well Abdomen: soft, non-tender, no guarding Genitourinary: Genitourinary: urinary catheter in place, good urine output Extremities: moves all, no edema, normal capilla ry refill, normal range of motion Skin: dry, intact, no gross abnormalities, tra l color, L foot wound wrapped Results Findings/Data: Laboratory Tests: 01/09 1533 1100 Chemistry POC Glucose (70 - 110 MG/DL) 177 H 179 H 245 H Results: labs reviewed, vital signs reviewed Diagnosis, Assessment Plan Free Text A P: Assessment BPH Urinary retention Bhardwaj in situ Bacteremia Leukocytosis Proteinuria Microhematuria WISAM on CKD Plan Keep Bhardwaj Urine culture negative Renal u/s WNL Continue Flomax Voiding trials once clinically improved outpatient cystoscopy and urodynamics Monitor for hematuria We will follow Heme and lytes per primary team ABX per ID Thank you for this kind consult Electronically Signed by Dima Forbes NP on at 0832 RPT #:[id number] END OF REPORT 2022-01-09 [facility] 11:01:00-00:00 [facility] Hospitalist Progress Note REPORT#:[id number] REPORT STATUS: Signed DATE:01/09/22 TIME: 1101 PATIENT: PEDRO MCGREGOR UNIT #: [id number] ROOM/BED: [place] [address] : 54 AGE: 66 SEX: M ATTEND: Jean-Paul Ward od, MD ADM AUTHOR: Lexa Samson NP * ALL edits or amendments must be made on the Material Mix/computer document * Subjective Chief complaint: He is tolreating wound care. Left LE and foot pain controlled. No CP, fever, chills. No N/v/D. BP and HR stable. Bhardwaj in placed. Review of Systems Constitutional: Reports: fatigue, generalized weakness. Allergy/Immun: Denies: allergic reaction, anaphylaxis, rhinorrh ea. ENT: Denies: ear ringing, earache , nasal congestion, sore throat, throat pain, tongue pain, tongue swelling. Respiratory: Denies: hemoptysis, parox nocturnal dyspnea, ple urisy, pleuritic pain, productive cough (sputum). Cardiovascular: Denies: GIBBS (dyspnea on exertion), edema, orthop booker, palpitations. GI: Denies: constipation, GERD, hematemesis, hiatal hernia, melena. : Denies: flank pain, frequency, nocturia, penile lesion, testicular pain, testicular swelling. Heme: Denies: bleeding, bruising. Neuro: Denies: change in LOC, focal weakness, lighthead ed, numbness, slurred speech, spinning sensation. Objective General VS/I O: Vital Signs: Date Time Temp Pulse Resp B/P B/P Pulse O2 O2 F low FiO2 Mean Ox Delivery Rate 01/09 1059 36.9 84 14 103/63 76.1 93 Room air 01/09 1044 2 01/09 0825 103 134/70 91.1 95 Room air 01/09 0706 36.9 42 14 107/63 77.8 94 Room air 01/09 0428 36.7 97 16 129/72 91.1 95 Room air 01/08 2337 37.3 97 16 122/72 88.5 93 Room air 01/08 2121 37.1 95 16 117/73 87.4 94 Room air 01/08 2000 Nasal 2 cannula 01/08 1547 36.8 82 15 112/58 76.3 96 Room air 01/08 1355 2 PATIENT WEIGHT: Weight (lb): Weight (oz): Weight (kg): 100.000 Medications: Active Meds + DC'd Last 24 Hrs Sodium Chloride (SODIUM CHLORIDE) 10 ML BID IV Sodium Chloride (SODIUM CHLORIDE) 10 ML ASDIR TN N IV Acetaminophen (TYLENOL EXTRA STRENGTH) 1,000 MG PREOP ONCALL PO (CKD) Gabapentin (NEURONTIN) 200 MG PREOP ONCALL PO (C KD) Lactated Ringer's (LACTATED RINGERS) 1,000 ML TN EOP ONCALL IV Lidocaine HCl (LIDOCAINE HCL/PF) 2 ML PREOP ONCA LL LOCAL Lidocaine HCl (LIDOCAINE HCL/PF) 2 ML PREOP ONCA LL LOCAL Sodium Chloride (SODIUM CHLORIDE 0.9%) 500 ML TN EOP ONCALL IV Sodium Chloride (SODIUM CHLORIDE 0.9%) 500 ML TN EOP ONCALL IV Sodium Chloride (SODIUM CHLORIDE 0.9%) 1,000 ML PREOP ONCALL IV Sodium Chloride (SODIUM CHLORIDE) 5 ML ASDIR PRN IV Sodium Chloride (SODIUM CHLORIDE) 10 ML ASDIR TN N IV Sodium Chloride (SODIUM CHLORIDE 0.9%) 250 ML DIR PRN IV Sodium Hypochlorite (DAKIN'S 1/4 STR (0.125%) 47 3ML) 1 APPLIC DAILY TOPICAL Acetaminophen (TYLENOL) 650 MG Q4H PRN PRN PO Dextrose/Water (DEXTROSE 10% IN WATER) 125 ML DIR PRN IV (CKD) Dextrose/Water (DEXTROSE 10% IN WATER) 250 ML DIR PRN IV (CKD) Glucagon (GLUCAGON) 1 MG ASDIR PRN IM Hydromorphone HCl (DILAUDID) 0.5 MG Q4H PRN PRN IV Gabapentin (NEURONTIN) 300 MG BEDTIME PO Piperacillin Sod/Tazobactam Sod (ZOSYN 3.375GM) 3.375 GM Q8H IV (DC) Sodium Chloride (SODIUM CHLORIDE 0.9% 100 ML) 1 00 ML Insulin Human Lispro (HUMALOG) 10 UNIT AC BK GRACE SUBQ Furosemide (LASIX) 40 MG DAILY PO Loratadine (CLARITIN) 10 MG DAILY PO Tramadol HCl (ULTRAM) 100 MG Q6H PRN PRN PO Amitriptyline HCl (ELAVIL) 25 MG BEDTIME PO Atorvastatin Calcium (LIPITOR) 80 MG DAILY@2100 PO Ursodiol (ActigalL) 300 MG C BK DIN PO Insulin Human Lispro (HUMALOG) 10 UNIT AC DIN MARR BQ Insulin Human Lispro (HUMALOG) 0 AC HS SUBQ Sterile Water (WATER FOR IRRIGATION) DRESSING CH SHERICE ASDIR PRN IRR Aspirin (ASPIRIN) 81 MG DAILY PO Citalopram Hydrobromide (CeleXA) 20 MG DAILY PO Metoprolol Tartrate (LOPRESSOR) 25 MG DAILY PO Tamsulosin HCl (Flomax 0.4 mg) 0.4 MG DAILY PO Ondansetron HCl (ZOFRAN) 4 MG Q6H PRN PRN IV Dietitian nutrition assessment The data set between the solid lines has been im ported from the dietitian's assessment. BMI Calculated: 26.8 Nutrition related diagnosis: Nutrition diagnosis details: Nutrition problem: Nutrition etiology: Nutrition signs and symptoms: Nutrition prescription: Dietitian name: Assessment completed: Physical Exam General appearance: alert, awake, oriented Head/Eyes: atraumatic, EOMI ENT: moist mucosal membranes Neck: full range of motion, normal thyroid Cardiovascular: normal heart sounds, regular rat e rhythm Respiratory: aerating well, clear to auscultatio n, symmetric expansion Abdomen: non-tender, normal bowel sounds, soft Genitourinary: urinary catheter Extremities: no clubbing, no cyanosis, left foot : drssing C/D/I Neuro/METAL WELDER: alert, oriented X 3 Results Findings/Data: Laboratory Tests 01/09 01/08 01/08 0705 2123 1546 Chemistry POC Glucose (70 - 110 MG/DL) 242 H 196 H 173 H Results: labs reviewed, vital signs reviewed, vi maida signs stable, current med profile rev'd Treatment Prophylaxis Treatment Prophylaxis Oxygen: room air Diagnosis, Assessment Plan Code status: full code Plan discussed with: patient, admitting physicia n, consultants, nurse Free Text DxA P Notes Free text DxA P notes: Assessment and PlaN; - Bacteremia , recurrent Enterococcal Faecalis b acteremia. - Sepsis POA due to left foot OM. - Left Foot OM failed Outpt treatment. - Non healing wound of Left foot. - Hyponatremia - Left foot pain due to OM. - HX of HTN, HLD, DM type II, Liver disa se, Heart disease, diabetes neuropathy - Over weight 26.8. - On bhardwaj 2/2 non weight bearing of foot - UA positive for LE, UTI - Hypomagnesemia-replaced - PVD Plan: Floor. Pending SNF for ABX and wound care. Left Ankle wound cx showed ENTEROCOCCUS FAECALIS and Left foot wound cx showed ESCHERICHIA COLI/ENTEROCOCCUS SPECIES. S/P reduction of fracture with external fixation . s/p YOLA today was negative for endocarditis. CM for SNF placement. PAIN CONTROL IV abx per ID f/u Cardiology Vascular sx CONSULT Appreciated Podiatry for Left foot wound. ID for left foot OM. Pain meds. Antiemetics. Glycemic control, accu check AC HS, ISS. Diabetic diet. Follow labs and replace as needed. Continue home meds. Monitor. Electronically Signed by Lexa Samson NP on at 1102 Electronically Signed by Chelo Ward MD on 1 03/28/21 at 1835 RPT #:[id number] END OF REPORT 2022-01-09 [facility] 10:04:00-00:00 [facility] ([facility]) Urology Progress Note REPORT#:[id number] REPORT STATUS: Signed DATE:01/09/22 TIME: 1004 PATIENT: PEDRO MCGREGOR UNIT #: [id number] ROOM/BED: [place] [address] : 54 AGE: 66 SEX: M ATTEND: Jean-Paul Ward od, MD ADM AUTHOR: Dima Forbes NP * ALL edits or amendments must be made on the Material [email or web address] document * Subjective Chief complaint: URINARY RETENTION HPI: 66-year-old male with a history of hypertension, diabetes, hyperlipidemia, osteomyelitis, and CAD admitted for left foot in [facility]. He has associated generalized weakness, chills, and nausea , vomit ing. He has been on multiple rounds of antibiotics for this infection without relief. He denies chest pain, dyspnea, changes in his bowel/bladder movements, headache, blurred vision, or any other symptoms. Urologic al consultation was sought for the evaluation of the retention of urine and Bhardwaj catheter. H is Bhardwaj was recently changed . He was found to have positive blood cultures, urine cul ture is pending. UA was abnormal. WBC's are elevated 01/09/2022 - Bhardwaj intact. no new concerns. Patient reports: no urinary pain, no abdominal p ain, no back pain Nursing reports: no urinary pain, no abdominal p ain, no back pain Objective General VS/I O: Last Documented: Result Date Time Pulse Ox 95 01/09 825 B/P 134/70 01/09 825 B/P Mean 91.1 01/09 825 O2 Delivery Room air 01/09 825 Pulse 103 01/09 825 Temp 36.9 01/09 0706 Resp 14 11/27 0706 O2 Flow Rate 2 01/09 2000 PATIENT WEIGHT: Weight (lb): Weight (oz): Weight (kg): 100.000 Medications: Active Meds + DC'd Last 24 Hrs Sodium Chloride (SODIUM CHLORIDE) 10 ML BID IV Sodium Chloride (SODIUM CHLORIDE) 10 ML ASDIR TN N IV Acetaminophen (TYLENOL EXTRA STRENGTH) 1,000 MG PREOP ONCALL PO (CKD) Gabapentin (NEURONTIN) 200 MG PREOP ONCALL PO (C KD) Lactated Ringer's (LACTATED RINGERS) 1,000 ML TN EOP ONCALL IV Lidocaine HCl (LIDOCAINE HCL/PF) 2 ML PREOP ONCA LL LOCAL Lidocaine HCl (LIDOCAINE HCL/PF) 2 ML PREOP ONCA LL LOCAL Sodium Chloride (SODIUM CHLORIDE 0.9%) 500 ML TN EOP ONCALL IV Sodium Chloride (SODIUM CHLORIDE 0.9%) 500 ML TN EOP ONCALL IV Sodium Chloride (SODIUM CHLORIDE 0.9%) 1,000 ML PREOP ONCALL IV Sodium Chloride (SODIUM CHLORIDE) 5 ML ASDIR PRN IV Sodium Chloride (SODIUM CHLORIDE) 10 ML ASDIR TN N IV Sodium Chloride (SODIUM CHLORIDE 0.9%) 250 ML DIR PRN IV Sodium Hypochlorite (DAKIN'S / STR (0.125%) 47 3ML) 1 APPLIC DAILY TOPICAL Acetaminophen (TYLENOL) 650 MG Q4H PRN PRN PO Dextrose/Water (DEXTROSE 10% IN WATER) 125 ML DIR PRN IV (CKD) Dextrose/Water (DEXTROSE 10% IN WATER) 250 ML DIR PRN IV (CKD) Glucagon (GLUCAGON) 1 MG ASDIR PRN IM Hydromorphone HCl (DILAUDID) 0.5 MG Q4H PRN PRN IV Gabapentin (NEURONTIN) 300 MG BEDTIME PO Piperacillin Sod/Tazobactam Sod (ZOSYN 3.375GM) 3.375 GM Q8H IV (DC) Sodium Chloride (SODIUM CHLORIDE 0.9% 100 ML) 1 00 ML Insulin Human Lispro (HUMALOG) 10 UNIT AC BK GRACE SUBQ Furosemide (LASIX) 40 MG DAILY PO Loratadine (CLARITIN) 10 MG DAILY PO Tramadol HCl (ULTRAM) 100 MG Q6H PRN PRN PO Amitriptyline HCl (ELAVIL) 25 MG BEDTIME PO Atorvastatin Calcium (LIPITOR) 80 MG DAILY@2100 PO Ursodiol (ActigalL) 300 MG C BK DIN PO Insulin Human Lispro (HUMALOG) 10 UNIT AC DIN MARR BQ Insulin Human Lispro (HUMALOG) 0 AC HS SUBQ Sterile Water (WATER FOR IRRIGATION) DRESSING CH SHERICE ASDIR PRN IRR Aspirin (ASPIRIN) 81 MG DAILY PO Citalopram Hydrobromide (CeleXA) 20 MG DAILY PO Metoprolol Tartrate (LOPRESSOR) 25 MG DAILY PO Tamsulosin HCl (Flomax 0.4 mg) 0.4 MG DAILY PO Ondansetron HCl (ZOFRAN) 4 MG Q6H PRN PRN IV Dietitian nutrition assessment The data set between the solid lines has been im ported from the dietitian's assessment. BMI Calculated: 26.8 Nutrition related diagnosis: Nutrition diagnosis details: Nutrition problem: Nutrition etiology: Nutrition signs and symptoms: Nutrition prescription: Dietitian name: Assessment completed: Physical Exam General appearance: alert, awake, oriented Head/Eyes: atraumatic, clear cornea, EOMI, normo cephalic, normal conjunctiva/ sclera Neck: full range of motion, non-tender, no bruit /NL carotids Cardiovascular: normal capillary refill, regular rate rhythm, normal heart sounds, BP/pulses equal bilat. Respiratory: clear to auscultation, no distress, no tenderness, aerating well Abdomen: soft, non-tender, no guarding Genitourinary: Genitourinary: urinary catheter in place, good urine output Extremities: moves all, no edema, normal capilla ry refill, normal range of motion Skin: dry, intact, no gross abnormalities, tra l color, L foot wound wrapped Results Findings/Data: Laboratory Tests: 01/09 01/08 01/08 01/08 0705 2123 1546 1045 Chemistry POC Glucose (70 - 110 MG/DL) 242 H 196 H 173 H 235 H Results: labs reviewed, vital signs reviewed Diagnosis, Assessment Plan Free Text A P: Assessment BPH Urinary retention Bhardwaj in situ Bacteremia Leukocytosis Proteinuria Microhematuria WISAM on CKD Plan Keep Bhardwaj Urine culture negative Renal u/s WNL Continue Flomax Voiding trials once clinically improved outpatient cystoscopy and urodynamics Monitor for hematuria We will follow Heme and lytes per primary team ABX per ID Thank you for this kind consult Electronically Signed by Dima Forbes LINK CUTTER on at 1005 RPT #:[id number] END OF REPORT 2022-01-09 [facility] 08:49:00-00:00 [facility] ([facility]) Podiatry Progress Note REPORT#:[id number] REPORT STATUS: Signed DATE:01/09/22 TIME: 848 PATIENT: PEDRO MCGREGOR UNIT #: [id number] ROOM/BED: [place] [address] : 54 AGE: 66 SEX: M ATTEND: Jean-Paul Ward od, MD ADM AUTHOR: Rohit Sharma DPM * ALL edits or amendments must be made on the Material Mix/computer document * Subjective Chief complaint: left foot infection HPI: FOOT ULCER Patient reports: no diarrhea, no fatigue, no hea rtburn, no nausea Objective General VS: Last Documented: Result Date Time Pulse Ox 95 01/09 825 B/P 134/70 01/09 825 B/P Mean 91.1 01/09 825 O2 Delivery Room air 01/09 825 Pulse 103 01/09 825 Temp 98.4 01/09 07 Resp 14 01/09 706 O2 Flow Rate 2 01/09 2000 PATIENT WEIGHT: Weight (lb): Weight (oz): Weight (kg): 100.000 Medications: Active Meds + DC'd Last 24 Hrs Sodium Chloride (SODIUM CHLORIDE) 10 ML BID IV Sodium Chloride (SODIUM CHLORIDE) 10 ML ASDIR TN N IV Acetaminophen (TYLENOL EXTRA STRENGTH) 1,000 MG PREOP ONCALL PO (CKD) Gabapentin (NEURONTIN) 200 MG PREOP ONCALL PO ( CKD) Lactated Ringer's (LACTATED RINGERS) 1,000 ML TN EOP ONCALL IV Lidocaine HCl (LIDOCAINE HCL/PF) 2 ML PREOP ONCA LL LOCAL Lidocaine HCl (LIDOCAINE HCL/PF) 2 ML PREOP ONC ALL LOCAL Sodium Chloride (SODIUM CHLORIDE 0.9%) 500 ML TN EOP ONCALL IV Sodium Chloride (SODIUM CHLORIDE 0.9%) 500 ML TN EOP ONCALL IV Sodium Chloride (SODIUM CHLORIDE 0.9%) 1,000 ML PREOP ONCALL IV Sodium Chloride (SODIUM CHLORIDE) 5 ML ASDIR PRN IV Sodium Chloride (SODIUM CHLORIDE) 10 ML ASDIR TN N IV Sodium Chloride (SODIUM CHLORIDE 0.9%) 250 ML DIR PRN IV Sodium Hypochlorite (DAKIN'S 1/4 STR (0.125%) 47 3ML) 1 APPLIC DAILY TOPICAL Acetaminophen (TYLENOL) 650 MG Q4H PRN PRN PO Dextrose/Water (DEXTROSE 10% IN WATER) 125 ML DIR PRN IV (CKD) Dextrose/Water (DEXTROSE 10% IN WATER) 250 ML DIR PRN IV (CKD) Glucagon (GLUCAGON) 1 MG ASDIR PRN IM Hydromorphone HCl (DILAUDID) 0.5 MG Q4H PRN PRN IV Gabapentin (NEURONTIN) 300 MG BEDTIME PO Piperacillin Sod/Tazobactam Sod (ZOSYN 3.375GM) 3.375 GM Q8H IV (DC) Sodium Chloride (SODIUM CHLORIDE 0.9% 100 ML) 1 00 ML Insulin Human Lispro (HUMALOG) 10 UNIT AC BK GRACE SUBQ Furosemide (LASIX) 40 MG DAILY PO Loratadine (CLARITIN) 10 MG DAILY PO Tramadol HCl (ULTRAM) 100 MG Q6H PRN PRN PO Amitriptyline HCl (ELAVIL) 25 MG BEDTIME PO Atorvastatin Calcium (LIPITOR) 80 MG DAILY@2100 PO Ursodiol (ActigalL) 300 MG C BK DIN PO Insulin Human Lispro (HUMALOG) 10 UNIT AC DIN MARR BQ Insulin Human Lispro (HUMALOG) 0 AC HS SUBQ Sterile Water (WATER FOR IRRIGATION) DRESSING CH SHERICE ASDIR PRN IRR Aspirin (ASPIRIN) 81 MG DAILY PO Citalopram Hydrobromide (CeleXA) 20 MG DAILY PO Metoprolol Tartrate (LOPRESSOR) 25 MG DAILY PO Tamsulosin HCl (Flomax 0.4 mg) 0.4 MG DAILY PO Ondansetron HCl (ZOFRAN) 4 MG Q6H PRN PRN IV Dietitian nutrition assessment The data set between the solid lines has been im ported from the dietitian's assessment. BMI Calculated: 26.8 Nutrition related diagnosis: Nutrition diagnosis details: Nutrition problem: Nutrition etiology: Nutrition signs and symptoms: Nutrition prescription: Dietitian name: Assessment completed: Physical Exam General appearance: alert, awake, oriented Wound/incision: Location: left foot Site condition: drainage, dressing saturated, e cchymosis, erythema, eschar, necrotic tissue, odor, left foot dp/pt 1/4 light touch decreased. wound anterior left ankle. seropurulent imelda inage. ulcer extensive from medial left hindfoot to medial left midfoot. into marr b q layer. no ability to invert the left foot. foot is deformed. it is severely everted. no lymphang itis. LE vascular pulse assess: 1+ L posterior tibialis, 1+ L dorsalis pedis Results Findings/Data: Laboratory Tests: 01/09 01/08 01/08 01/08 0705 2123 1546 1045 Chemistry POC Glucose (70 - 110 MG/DL) 242 H 196 H 173 H 235 H Diagnosis, Assessment Plan Free Text A P: DM with neuropathy PVD wound left ankle ulcer left foot leukocytosis cellulitis left foot ankle fracture and dislocation IV abx culture left ankle and left foot--results discus sed with patient continue IV abx, ID on board [facility] wound vac applied to LLE left foot xray: no gas. no erosions. offloading boots. arterial studies--discussed with patient Plan Dispo: SNF Covering for Dr. Wharton at 0850 [facility] #:[id number] END OF REPORT 2022-01-08 [facility] 11:20:00-00:00 [facility] ([facility]) Urology Progress Note REPORT#:[id number] REPORT STATUS: Signed DATE:01/08/22 TIME: 1120 PATIENT: PEDRO MCGREGOR UNIT #: [id number] ROOM/BED: 5506-1 : 54 AGE: 66 SEX: M ATTEND: Jean-Paul Ward od, MD ADM AUTHOR: Dima Forbes NP * ALL edits or amendments must be made on the Material Mix/computer document * Subjective Chief complaint: URINARY RETENTION HPI: 66-year-old male with a history of hypertension, diabetes, hyperlipidemia, osteomyelitis, and CAD admitted for left foot in fection. He has associated generalized weakness, chills, and nausea , vomit ing. He has been on multiple rounds of antibiotics for this infection without relief. He denies chest pain, dyspnea, changes in his bowel/bladder movements, headache, blurred vision, or any other symptoms. Urologic al consultation was sought for the evaluation of the retention of urine and Bhardwaj catheter. H is Bhardwaj was recently changed . He was found to have positive blood cultures, urine cul ture is pending. UA was abnormal. WBC's are elevated 01/08/2022 - Bhardwaj intact. no new concerns. Patient reports: no complain ts, no urinary pain, no abdominal pain, no back pain Nursing reports: no complain ts, no urinary pain, no abdominal pain, no back pain Objective General VS/I O: Last Documented: Result Date Time Pulse Ox 97 01/08 1046 B/P 108/50 01/08 1046 B/P Mean 69.4 01/08 1046 O2 Delivery Nasal cannula 01/08 1046 Temp 36.5 01/08 1046 Pulse 72 01/08 1046 Resp 15 01/08 1046 O2 Flow Rate 2 01/05 2305 24 hour I O ending at 0700: 01/08 0700 01/07 1900 Intake Total 750.00 Output Total 1000 Balance -250.00 Intake, IV 200.00 Intake, Oral 550 Output, Urine 1000 PATIENT WEIGHT: Weight (lb): Weight (oz): Weight (kg): 100.000 Medications: Active Meds + DC'd Last 24 Hrs Sodium Chloride (SODIUM CHLORIDE) 10 ML BID IV Sodium Chloride (SODIUM CHLORIDE) 10 ML ASDIR TN N IV Acetaminophen (TYLENOL EXTRA STRENGTH) 1,000 MG PREOP ONCALL PO (CKD) Gabapentin (NEURONTIN) 200 MG PREOP ONCALL PO (C KD) Lactated Ringer's (LACTATED RINGERS) 1,000 ML TN EOP ONCALL IV Lidocaine HCl (LIDOCAINE HCL/PF) 2 ML PREOP ONCA LL LOCAL Lidocaine HCl (LIDOCAINE HCL/PF) 2 ML PREOP ONCA LL LOCAL Sodium Chloride (SODIUM CHLORIDE 0.9%) 500 ML TN EOP ONCALL IV Sodium Chloride (SODIUM CHLORIDE 0.9%) 500 ML TN EOP ONCALL IV Sodium Chloride (SODIUM CHLORIDE 0.9%) 1,000 ML PREOP ONCALL IV Sodium Chloride (SODIUM CHLORIDE) 5 ML ASDIR PRN IV Sodium Chloride (SODIUM CHLORIDE) 10 ML ASDIR TN N IV Sodium Chloride (SODIUM CHLORIDE 0.9%) 250 ML DIR PRN IV Sodium Hypochlorite (DAKIN'S 1/4 STR (0.125%) 47 3ML) 1 APPLIC DAILY TOPICAL Acetaminophen (TYLENOL) 650 MG Q4H PRN PRN PO Dextrose/Water (DEXTROSE 10% IN WATER) 125 ML DIR PRN IV (CKD) Dextrose/Water (DEXTROSE 10% IN WATER) 250 ML DIR PRN IV (CKD) Glucagon (GLUCAGON) 1 MG ASDIR PRN IM Hydromorphone HCl (DILAUDID) 0.5 MG Q4H PRN PRN IV Gabapentin (NEURONTIN) 300 MG BEDTIME PO Piperacillin Sod/Tazobactam Sod (ZOSYN 3.375GM) 3.375 GM Q8H IV Sodium Chloride (SODIUM CHLORIDE 0.9% 100 ML) 1 00 ML Insulin Human Lispro (HUMALOG) 10 UNIT AC BK GRACE SUBQ Furosemide (LASIX) 40 MG DAILY PO Loratadine (CLARITIN) 10 MG DAILY PO Tramadol HCl (ULTRAM) 100 MG Q6H PRN PRN PO Amitriptyline HCl (ELAVIL) 25 MG BEDTIME PO Atorvastatin Calcium (LIPITOR) 80 MG DAILY@2100 PO Ursodiol (ActigalL) 300 MG C BK DIN PO Insulin Human Lispro (HUMALOG) 10 UNIT AC DIN MARR BQ Insulin Human Lispro (HUMALOG) 0 AC HS SUBQ Sterile Water (WATER FOR IRRIGATION) DRESSING CH SHERICE ASDIR PRN IRR Aspirin (ASPIRIN) 81 MG DAILY PO Citalopram Hydrobromide (CeleXA) 20 MG DAILY PO Metoprolol Tartrate (LOPRESSOR) 25 MG DAILY PO Tamsulosin HCl (Flomax 0.4 mg) 0.4 MG DAILY PO Ondansetron HCl (ZOFRAN) 4 MG Q6H PRN PRN IV Dietitian nutrition assessment The data set between the solid lines has been im ported from the dietitian's assessment. BMI Calculated: 26.8 Nutrition related diagnosis: Nutrition diagnosis details: Nutrition problem: Nutrition etiology: Nutrition signs and symptoms: Nutrition prescription: Dietitian name: Assessment completed: Physical Exam General appearance: alert, awake, oriented Head/Eyes: atraumatic, clear cornea, EOMI, normo cephalic, normal conjunctiva/ sclera Neck: full range of motion, non-tender, no bruit /NL carotids Cardiovascular: normal capillary refill, regular rate rhythm, normal heart sounds, BP/pulses equal bilat. Respiratory: clear to auscultation, no distress, no tenderness, aerating well Abdomen: soft, non-tender, no guarding Genitourinary: Genitourinary: urinary catheter in place, good urine output Extremities: moves all, no edema, normal capilla ry refill, normal range of motion Skin: dry, intact, no gross abnormalities, tra l color, L foot wound wrapped Results Findings/Data: Laboratory Tests: 01/08 01/08 01/07 01/07 1045 0758 2038 1550 Chemistry POC Glucose (70 - 110 MG/DL) 235 H 273 H 234 H 189 H Results: labs reviewed, vital signs reviewed Diagnosis, Assessment Plan Free Text A P: Assessment BPH Urinary retention Bhardwaj in situ Bacteremia Leukocytosis Proteinuria Microhematuria WISAM on CKD Plan Keep Bhardwaj Urine culture negative Renal u/s WNL Continue Flomax Voiding trials once clinically improved outpatient cystoscopy and urodynamics Monitor for hematuria We will follow Heme and lytes per primary team ABX per ID Thank you for this kind consult Electronically Signed by Dima Forbes LINK CUTTER on at 1121 RPT #:[id number] END OF REPORT 2022-01-08 [facility] 11:04:00-00:00 [facility] ([facility]) Hospitalist Progress Note REPORT#:[id number] REPORT STATUS: Signed DATE:01/08/22 TIME: 110 PATIENT: PEDRO MCGREGOR UNIT #: [id number] ROOM/BED: [place] [address] : 54 AGE: 66 SEX: M ATTEND: Jean-Paul Ward od, MD ADM AUTHOR: Lexa Samson NP * ALL edits or amendments must be made on the Material Mix/computer document * Lexa Samson 01/08/22 1104: Subjective Chief complaint: He is feeling better. Tolreating wound care. His Left LE and foot pain controlled. No CP, fever, chills. No N/v/D. BP and HR stable. Bhardwaj in placed. Review of Systems Constitutional: Reports: fatigue, generalized weakness. Allergy/Immun: Denies: anaphylaxis, hives, rhinorrhea, sneezing . Eyes: Denies: discharge, itching. Respiratory: Denies: hemoptysis, non productive cough, pleuri tic pain, SOB. Cardiovascular: Denies: chest pain, edema, parox nocturnal dyspn ea. GI: Denies: anorexia, constipation, GERD, hematemesi s, melena. : Denies: flank pain, hematuria, penile lesion, te sticular swelling. Heme: Denies: bleeding, bruising. Neuro: Denies: change in LOC, headache, lightheaded, se izure, spinning sensation. Objective General VS/I O: Vital Signs: Date Time Temp Pulse Resp B/P B/P Pulse O2 O2 F low FiO2 Mean Ox Delivery Rate 01/08 1046 36.5 72 15 108/50 69.4 97 Nasal cannula 01/08 0759 36.2 91 15 105/65 78.2 95 Room air 01/08 0401 36.5 90 16 99/65 76.5 93 01/07 2332 37.0 92 20 111/59 76.0 93 01/07 1903 37.2 79 16 125/57 79.9 94 01/07 1549 36.9 78 14 112/69 83.2 97 01/07 1122 36.7 72 14 122/62 82.2 97 24 hour I O ending at 0700: 01/08 0700 01/07 1900 Intake Total 750.00 Output Total 1000 Balance -250.00 Intake, IV 200.00 Intake, Oral 550 Output, Urine 1000 PATIENT WEIGHT: Weight (lb): Weight (oz): Weight (kg): 100.000 Medications: Active Meds + DC'd Last 24 Hrs Sodium Chloride (SODIUM CHLORIDE) 10 ML BID IV Sodium Chloride (SODIUM CHLORIDE) 10 ML ASDIR TN N IV Acetaminophen (TYLENOL EXTRA STRENGTH) 1,000 MG PREOP ONCALL PO (CKD) Gabapentin (NEURONTIN) 200 MG PREOP ONCALL PO (C KD) Lactated Ringer's (LACTATED RINGERS) 1,000 ML TN EOP ONCALL IV Lidocaine HCl (LIDOCAINE HCL/PF) 2 ML PREOP ONCA LL LOCAL Lidocaine HCl (LIDOCAINE HCL/PF) 2 ML PREOP ONCA LL LOCAL Sodium Chloride (SODIUM CHLORIDE 0.9%) 500 ML TN EOP ONCALL IV Sodium Chloride (SODIUM CHLORIDE 0.9%) 500 ML TN EOP ONCALL IV Sodium Chloride (SODIUM CHLORIDE 0.9%) 1,000 ML PREOP ONCALL IV Sodium Chloride (SODIUM CHLORIDE) 5 ML ASDIR PRN IV Sodium Chloride (SODIUM CHLORIDE) 10 ML ASDIR TN N IV Sodium Chloride (SODIUM CHLORIDE 0.9%) 250 ML DIR PRN IV Sodium Hypochlorite (DAKIN'S 02/16 STR (0.125%) 47 3ML) 1 APPLIC DAILY TOPICAL Acetaminophen (TYLENOL) 650 MG Q4H PRN PRN PO Dextrose/Water (DEXTROSE 10% IN WATER) 125 ML DIR PRN IV (CKD) Dextrose/Water (DEXTROSE 10% IN WATER) 250 ML DIR PRN IV (CKD) Glucagon (GLUCAGON) 1 MG ASDIR PRN IM Hydromorphone HCl (DILAUDID) 0.5 MG Q4H PRN PRN IV Gabapentin (NEURONTIN) 300 MG BEDTIME PO Piperacillin Sod/Tazobactam Sod (ZOSYN 3.375GM) 3.375 GM Q8H IV Sodium Chloride (SODIUM CHLORIDE 0.9% 100 ML) 1 00 ML Insulin Human Lispro (HUMALOG) 10 UNIT AC BK GRACE SUBQ Furosemide (LASIX) 40 MG DAILY PO Loratadine (CLARITIN) 10 MG DAILY PO Tramadol HCl (ULTRAM) 100 MG Q6H PRN PRN PO Amitriptyline HCl (ELAVIL) 25 MG BEDTIME PO Atorvastatin Calcium (LIPITOR) 80 MG DAILY@2100 PO Ursodiol (ActigalL) 300 MG C BK DIN PO Insulin Human Lispro (HUMALOG) 10 UNIT AC DIN MARR BQ Insulin Human Lispro (HUMALOG) 0 AC HS SUBQ Sterile Water (WATER FOR IRRIGATION) DRESSING CH SHERICE ASDIR PRN IRR Aspirin (ASPIRIN) 81 MG DAILY PO Citalopram Hydrobromide (CeleXA) 20 MG DAILY PO Metoprolol Tartrate (LOPRESSOR) 25 MG DAILY PO Tamsulosin HCl (Flomax 0.4 mg) 0.4 MG DAILY PO Ondansetron HCl (ZOFRAN) 4 MG Q6H PRN PRN IV Dietitian nutrition assessment The data set between the solid lines has been im ported from the dietitian's assessment. BMI Calculated: 26.8 Nutrition related diagnosis: Nutrition diagnosis details: Nutrition problem: Nutrition etiology: Nutrition signs and symptoms: Nutrition prescription: Dietitian name: Assessment completed: Physical Exam General appearance: alert, awake, oriented Head/Eyes: atraumatic, EOMI ENT: moist mucosal membranes Neck: full range of motion, normal thyroid Cardiovascular: normal heart sounds, regular rat e rhythm Respiratory: aerating well, clear to auscultatio n, symmetric expansion Abdomen: non-tender, normal bowel sounds, soft Genitourinary: urinary catheter Extremities: no clubbing, no cyanosis, left foot : drssing C/D/I Neuro/METAL WELDER: alert, oriented X 3 Psychiatry: normal affect, normal mood Results Findings/Data: Laboratory Tests 01/08 01/08 01/07 01/07 01/07 1045 0758 2038 1550 1121 Chemistry POC Glucose (70 - 110 MG/DL) 235 H 273 H 234 H 189 H 237 H Results: labs reviewed, vital signs reviewed, vi maida signs stable, current med profile rev'd Treatment Prophylaxis Treatment Prophylaxis Oxygen: room air Diagnosis, Assessment Plan Code status: full code Plan discussed with: patient, admitting physicia n, consultants, nurse Free Text DxA P Notes Free text DxA P notes: Assessment and PlaN; - Bacteremia , recurrent Enterococcal Faecalis b acteremia. - Sepsis POA due to left foot OM. - Left Foot OM failed Outpt treatment. - Non healing wound of Left foot. - Hyponatremia - Left foot pain due to OM. - HX of HTN, HLD, DM type II, Liver disa se, Heart disease, diabetes neuropathy - Over weight 26.8. - On bhardwaj 2/2 non weight bearing of foot - UA positive for LE, UTI - Hypomagnesemia-replaced - PVD Plan: Floor. Pending SNF for ABX and wound care. Left Ankle wound cx showed ENTEROCOCCUS FAECALIS and Left foot wound cx showed ESCHERICHIA COLI/ENTEROCOCCUS SPECIES. S/P reduction of fracture with external fixation . s/p YOLA today was negative for endocarditis. CM for SNF placement. PAIN CONTROL IV abx per ID f/u Cardiology Vascular sx CONSULT Appreciated Podiatry for Left foot wound. ID for left foot OM. Pain meds. Antiemetics. Glycemic control, accu check AC HS, ISS. Diabetic diet. Follow labs and replace as needed. Continue home meds. Monitor. Chelo Ward 01/09/22 0027: Attestations Physician Attestation Agree w/findings plan: Patient seen and examined and I agree with the f indings and plan as discussed with and documented by Lexa Benz NP Electronically Signed by Lexa Samson LINK CUTTER on at 1106 Electronically Signed by Chelo Ward MD on 1 03/11/21 at 0043 RPT #:[id number] END OF REPORT 2022-01-08 [facility] 10:12:00-00:00 [facility] Podiatry Progress Note REPORT#:[id number] REPORT STATUS: Signed DATE:01/08/22 TIME: 1012 PATIENT: PEDRO MCGREGOR UNIT #: [id number] ROOM/BED: [place] [address] : 54 AGE: 66 SEX: M ATTEND: Jean-Paul Ward od, MD ADM AUTHOR: Rohit Sharma DPM * ALL edits or amendments must be made on the [email or web address] document * Subjective Chief complaint: left foot infection HPI: FOOT ULCER Patient reports: no bowel movement, no c hest pain, no diarrhea, no fatigue, no nausea Objective General VS: Last Documented: Result Date Time Pulse Ox 95 01/08 0759 B/P 105/65 01/08 0759 B/P Mean 78.2 01/08 075 O2 Delivery Room air 01/08 075 Temp 97.2 01/08 075 Pulse 91 01/08 075 Resp 15 01/08 075 O2 Flow Rate 2 01/05 2305 PATIENT WEIGHT: Weight (lb): Weight (oz): Weight (kg): 100.000 Medications: Active Meds + DC'd Last 24 Hrs Sodium Chloride (SODIUM CHLORIDE) 10 ML BID IV Lidocaine HCl (LIDOCAINE 1% 5ML) 5 ML ONCE ONE L OCAL (DC) Sodium Chloride (SODIUM CHLORIDE) 10 ML ASDIR TN N IV Acetaminophen (TYLENOL EXTRA STRENGTH) 1,000 MG PREOP ONCALL PO (CKD) Gabapentin (NEURONTIN) 200 MG PREOP ONCALL PO (C KD) Lactated Ringer's (LACTATED RINGERS) 1,000 ML TN EOP ONCALL IV Lidocaine HCl (LIDOCAINE HCL/PF) 2 ML PREOP ONCA LL LOCAL Lidocaine HCl (LIDOCAINE HCL/PF) 2 ML PREOP ONCA LL LOCAL Sodium Chloride (SODIUM CHLORIDE 0.9%) 500 ML TN EOP ONCALL IV Sodium Chloride (SODIUM CHLORIDE 0.9%) 500 ML TN EOP ONCALL IV Sodium Chloride (SODIUM CHLORIDE 0.9%) 1,000 ML PREOP ONCALL IV Sodium Chloride (SODIUM CHLORIDE) 5 ML ASDIR PRN IV Sodium Chloride (SODIUM CHLORIDE) 10 ML ASDIR TN N IV Sodium Chloride (SODIUM CHLORIDE 0.9%) 250 ML DIR PRN IV Sodium Hypochlorite (DAKIN'S / STR (0.125%) 47 3ML) 1 APPLIC DAILY TOPICAL Acetaminophen (TYLENOL) 650 MG Q4H PRN PRN PO Dextrose/Water (DEXTROSE 10% IN WATER) 125 ML DIR PRN IV (CKD) Dextrose/Water (DEXTROSE 10% IN WATER) 250 ML DIR PRN IV (CKD) Glucagon (GLUCAGON) 1 MG ASDIR PRN IM Hydromorphone HCl (DILAUDID) 0.5 MG Q4H PRN PRN IV Gabapentin (NEURONTIN) 300 MG BEDTIME PO Piperacillin Sod/Tazobactam Sod (ZOSYN 3.375GM) 3.375 GM Q8H IV Sodium Chloride (SODIUM CHLORIDE 0.9% 100 ML) 100 ML Insulin Human Lispro (HUMALOG) 10 UNIT AC BK GRACE SUBQ Furosemide (LASIX) 40 MG DAILY PO Loratadine (CLARITIN) 10 MG DAILY PO Tramadol HCl (ULTRAM) 100 MG Q6H PRN PRN PO Amitriptyline HCl (ELAVIL) 25 MG BEDTIME PO Atorvastatin Calcium (LIPITOR) 80 MG DAILY@2100 PO Ursodiol (ActigalL) 300 MG C BK DIN PO Insulin Human Lispro (HUMALOG) 10 UNIT AC DIN MARR BQ Insulin Human Lispro (HUMALOG) 0 AC HS SUBQ Sterile Water (WATER FOR IRRIGATION) DRESSING CH SHERICE ASDIR PRN IRR Aspirin (ASPIRIN) 81 MG DAILY PO Citalopram Hydrobromide (CeleXA) 20 MG DAILY PO Metoprolol Tartrate (LOPRESSOR) 25 MG DAILY PO Tamsulosin HCl (Flomax 0.4 mg) 0.4 MG DAILY PO Ondansetron HCl (ZOFRAN) 4 MG Q6H PRN PRN IV I O: 24 hour I O ending at 0700: 01/08 0700 01/07 1900 Intake Total 750.00 Output Total 1000 Balance -250.00 Intake, IV 200.00 Intake, Oral 550 Output, Urine 1000 Dietitian nutrition assessment The data set between the solid lines has been im ported from the dietitian's assessment. BMI Calculated: 26.8 Nutrition related diagnosis: Nutrition diagnosis details: Nutrition problem: Nutrition etiology: Nutrition signs and symptoms: Nutrition prescription: Dietitian name: Assessment completed: Physical Exam General appearance: alert, awake, oriented Wound/incision: Location: left foot Site condition: drainage, dressing saturated, e cchymosis, erythema, eschar, necrotic tissue, odor, left foot dp/pt 1/4 light touch decreased. wound anterior left ankle. seropurulent imelda inage. ulcer extensive from medial left hindfoot to medial left midfoot. into marr b q layer. no ability to invert the left foot. foot is deformed. it is severely everted. no lymphang itis. LE vascular pulse assess: 1+ L posterior tibialis, 1+ L dorsalis pedis Diagnosis, Assessment Plan Free Text A P: DM with neuropathy PVD wound left ankle ulcer left foot leukocytosis cellulitis left foot ankle fracture and dislocation IV abx culture left ankle and left foot--results discus sed with patient continue IV abx, ID on board Veraflo wound vac applied to LLE left foot xray: no gas. no erosions. offloading boots. arterial studies--discussed with patient Plan Dispo: SNF Covering for Dr. Wharton at 1014 RPT #:[id number] END OF REPORT 2022-01-07 [facility] 23:35:00-00:00 [facility] ([facility]) Pain Management Progress Note REPORT#:[id number] REPORT STATUS: Signed DATE:01/07/22 TIME: 5 PATIENT: PEDRO MCGREGOR UNIT #: [id number] ROOM/BED: 5506-1 : 54 AGE: 66 SEX: M ATTEND: Jean-Paul Ward od, MD ADM AUTHOR: Betty Tejeda APRN * ALL edits or amendments must be made on the Material Mix/computer document * Subjective Chief Complaint: Left foot pain Comments: pt seen, lying in bed. pain appears controlled. no other issues. Review of Systems Free Text ROS Notes Free Text ROS Notes: 12 point ROS reviewed and negative unless stated otherwise Objective General VS/I O: Last Documented: Result Date Time Pulse Ox 93 01/14 1701 B/P 111/63 01/14 1701 B/P Mean 79.0 01/14 1701 Pulse 90 01/14 1701 Resp 16 01/14 1701 O2 Delivery Room air 01/14 437 Temp 36.8 01/14 437 O2 Flow Rate 2 01/11 2200 PATIENT WEIGHT: Weight (lb): Weight (oz): Weight (kg): 100.000 Physical Exam General appearance: alert, awake, oriented Head/Eyes: atraumatic, EOMI, normocephalic ENT: normal nose, normal sinus, moist mucosal me mbranes Neck: no masses or swelling, supple/no meningism us Cardiovascular: normal capillary refill, regular rate rhythm Respiratory: no distress, aerating well, symmetr ic expansion Abdomen: non-tender, no rebound, no distention Extremities: no edema, no clubbing, no c yanosis, decreased range of motion (of LLE 2/2 pain) Neuro/METAL WELDER: alert, oriented X 3, normal speech Skin: dry, intact, warm Results Results: no new labs, vital signs stable Diagnosis, Assessment Plan Free text A P: Pedro Mcgregor is a 66yo male with PMH of DM II, HTN, CAD, HLD, and diabetic ulcers that was admitted with a left foot infection. 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 Dilaudid IV 0.5mg Q4hrs PRN severe pain Tramadol 100mg PO Q6hrs PRN moderate pain Gabapentin 300mg PO QHS for neuropathic pain s/p reduction of fracture with external fixation on 01/05/22 Left foot infection - abx, podiatry following, p ending left BKA or LLE arteriogram on 01/05/22 Bacteremia - s/p YOLA on 01/04/22 DM - SSI HLD - Lipitor HTN - Metoprolol BPH - Flomax CAD - ASA 81mg DC planning to SNF Please hold all narcotics for SBP < 90mm hg, Respiratory rate <8bpm, or altered mentation. Please call with any questions or concerns Thank you for allowing me to participate in this patient's care. Plan of care discussed with Dr. Posada and Dr. Felipe kumar, patient, primary team, and RN. All questions answered. Patient agrees w ith above plan of care. All diagnostic studies, ASSISTANT CHIEF TRAIN DISPATCHER, and labs in the pas t 24 hours reviewed and interpreted with Dr. Posada and Dr. Carter. [place] ASSISTANT CHIEF TRAIN DISPATCHER verified 12/31/21 at 2121 Electronically Signed by Kanwal Carter DO on 0 02/16/22 at 1545 RPT #:[id number] END OF REPORT 2022-01-07 [facility] 12:17:00-00:00 [facility] Podiatry Progress Note REPORT#:[id number] REPORT STATUS: Signed DATE:01/07/22 TIME: 1216 PATIENT: PEDRO MCGREGOR UNIT #: [id number] ROOM/BED: [place] [address] : 54 AGE: 66 SEX: M ATTEND: Jean-Paul Ward od, MD ADM AUTHOR: Rohit Sharma DPM * ALL edits or amendments must be made on the Material [email or web address] document * Subjective Chief complaint: left foot infection HPI: FOOT ULCER Patient reports: no complaints Comments: Patients family at bedside Patient in good spirits Objective General VS: Last Documented: Result Date Time Pulse Ox 97 01/07 1122 B/P 122/62 01/07 1122 B/P Mean 82.2 01/07 1122 Temp 98.1 01/07 1122 Pulse 72 01/07 1122 Resp 14 01/07 1122 O2 Delivery Nasal cannula 01/05 2305 O2 Flow Rate 2 01/05 2305 PATIENT WEIGHT: Weight (lb): Weight (oz): Weight (kg): 100.000 Medications: Active Meds + DC'd Last 24 Hrs Sodium Chloride (SODIUM CHLORIDE) 10 ML BID IV Lidocaine HCl (LIDOCAINE 1% 5ML) 5 ML ONCE ONE L OCAL (DC) Sodium Chloride (SODIUM CHLORIDE) 10 ML ASDIR TN N IV Acetaminophen (TYLENOL EXTRA STRENGTH) 1,000 MG PREOP ONCALL PO (CKD) Gabapentin (NEURONTIN) 200 MG PREOP ONCALL PO (C KD) Lactated Ringer's (LACTATED RINGERS) 1,000 ML TN EOP ONCALL IV Lidocaine HCl (LIDOCAINE HCL/PF) 2 ML PREOP ONCA LL LOCAL Lidocaine HCl (LIDOCAINE HCL/PF) 2 ML PREOP ONCA LL LOCAL Sodium Chloride (SODIUM CHLORIDE 0.9%) 500 ML TN EOP ONCALL IV Sodium Chloride (SODIUM CHLORIDE 0.9%) 500 ML TN EOP ONCALL IV Sodium Chloride (SODIUM CHLORIDE 0.9%) 1,000 ML PREOP ONCALL IV Sodium Chloride (SODIUM CHLORIDE) 5 ML ASDIR PRN IV Sodium Chloride (SODIUM CHLORIDE) 10 ML ASDIR TN N IV Sodium Chloride (SODIUM CHLORIDE 0.9%) 250 ML DIR PRN IV Sodium Hypochlorite (DAKIN'S 1/4 STR (0.125%) 47 3ML) 1 APPLIC DAILY TOPICAL Acetaminophen (TYLENOL) 650 MG Q4H PRN PRN PO Dextrose/Water (DEXTROSE 10% IN WATER) 125 ML DIR PRN IV (CKD) Dextrose/Water (DEXTROSE 10% IN WATER) 250 ML DIR PRN IV (CKD) Glucagon (GLUCAGON) 1 MG ASDIR PRN IM Hydromorphone HCl (DILAUDID) 0.5 MG Q4H PRN PRN IV Gabapentin (NEURONTIN) 300 MG BEDTIME PO Piperacillin Sod/Tazobactam Sod (ZOSYN 3.375GM) 3.375 GM Q8H IV Sodium Chloride (SODIUM CHLORIDE 0.9% 100 ML) 1 00 ML Insulin Human Lispro (HUMALOG) 10 UNIT AC BK GRACE SUBQ Furosemide (LASIX) 40 MG DAILY PO Loratadine (CLARITIN) 10 MG DAILY PO Tramadol HCl (ULTRAM) 100 MG Q6H PRN PRN PO Amitriptyline HCl (ELAVIL) 25 MG BEDTIME PO Atorvastatin Calcium (LIPITOR) 80 MG DAILY@2100 PO Ursodiol (ActigalL) 300 MG C BK DIN PO Insulin Human Lispro (HUMALOG) 10 UNIT AC DIN MARR BQ Insulin Human Lispro (HUMALOG) 0 AC HS SUBQ Sterile Water (WATER FOR IRRIGATION) DRESSING CH SHERICE ASDIR PRN IRR Aspirin (ASPIRIN) 81 MG DAILY PO Citalopram Hydrobromide (CeleXA) 20 MG DAILY PO Metoprolol Tartrate (LOPRESSOR) 25 MG DAILY PO Tamsulosin HCl (Flomax 0.4 mg) 0.4 MG DAILY PO Ondansetron HCl (ZOFRAN) 4 MG Q6H PRN PRN IV I O: 24 hour I O ending at 0700: 01/07 0700 01/06 1900 Intake Total Output Total 2200 Balance -2200 Output, Urine 2200 Dietitian nutrition assessment The data set between the solid lines has been im ported from the dietitian's assessment. BMI Calculated: 26.8 Nutrition related diagnosis: Nutrition diagnosis details: Nutrition problem: Nutrition etiology: Nutrition signs and symptoms: Nutrition prescription: Dietitian name: Assessment completed: Physical Exam General appearance: alert, awake, oriented Wound/incision: Location: left foot Site condition: drainage, dressing saturated, e cchymosis, erythema, eschar, necrotic tissue, odor, left foot dp/pt 1/4 light touch decreased. wound anterior left ankle. seropurulent imelda inage. ulcer extensive from medial left hindfoot to medial left midfoot. into marr b q layer. no ability to invert the left foot. foot is deformed. it is severely everted. no lymphang itis. LE vascular pulse assess: 1+ L posterior tibialis, 1+ L dorsalis pedis Diagnosis, Assessment Plan Free Text A P: DM with neuropathy PVD wound left ankle ulcer left foot leukocytosis cellulitis left foot ankle fracture and dislocation IV abx culture left ankle and left foot--results discus sed with patient continue IV abx, ID on board Veraflo wound vac applied to LLE left foot xray: no gas. no erosions. offloading boots. arterial studies--discussed with patient Covering for Dr. Wharton at 1218 RPT #:[id number] END OF REPORT 2022-01-07 [facility] 11:50:00-00:00 [facility] Urology Progress Note REPORT#:[id number] REPORT STATUS: Signed DATE:01/07/22 TIME: 1150 PATIENT: PEDRO MCGREGOR UNIT #: [id number] ROOM/BED: [place] [address] : 54 AGE: 66 SEX: M ATTEND: Jean-Paul Ward od, MD ADM AUTHOR: Dima Forbes NP * ALL edits or amendments must be made on the Material Mix/computer document * Subjective Chief complaint: URINARY RETENTION HPI: 66-year-old male with a history of hypertension, diabetes, hyperlipidemia, osteomyelitis, and CAD admitted for left foot in fection. He has associated generalized weakness, chills, and nausea , vomit ing. He has been on multiple rounds of antibiotics for this infection without relief. He denies chest pain, dyspnea, changes in his bowel/bladder movements, headache, blurred vision, or any other symptoms. Urologic al consultation was sought for the evaluation of the retention of urine and Bhardwaj catheter. H is Bhardwaj was recently changed . He was found to have positive blood cultures, urine cul ture is pending. UA was abnormal. WBC's are elevated 01/07/2022 - Bhardwaj intact. no new concerns. Patient reports: no urinary pain, no abdominal p ain, no back pain Nursing reports: no urinary pain, no abdominal p ain, no back pain, no bloody clots in urine Objective General VS/I O: Last Documented: Result Date Time Pulse Ox 97 01/07 112 B/P 122/62 01/07 112 B/P Mean 82.2 01/07 1122 Temp 36.7 01/07 1122 Pulse 72 01/07 112 Resp 14 01/07 112 O2 Delivery Nasal cannula 01/05 230 O2 Flow Rate 2 01/05 2305 24 hour I O ending at 0700: 01/07 0700 01/06 1900 Intake Total Output Total 2200 Balance -2200 Output, Urine 2200 PATIENT WEIGHT: Weight (lb): Weight (oz): Weight (kg): 100.000 Medications: Active Meds + DC'd Last 24 Hrs Sodium Chloride (SODIUM CHLORIDE) 10 ML BID IV Lidocaine HCl (LIDOCAINE 1% 5ML) 5 ML ONCE ONE LOCAL (DC) Sodium Chloride (SODIUM CHLORIDE) 10 ML ASDIR TN N IV Acetaminophen (TYLENOL EXTRA STRENGTH) 1,000 MG PREOP ONCALL PO (CKD) Gabapentin (NEURONTIN) 200 MG PREOP ONCALL PO (C KD) Lactated Ringer's (LACTATED RINGERS) 1,000 ML TN EOP ONCALL IV Lidocaine HCl (LIDOCAINE HCL/PF) 2 ML PREOP ONCA LL LOCAL Lidocaine HCl (LIDOCAINE HCL/PF) 2 ML PREOP ONCA LL LOCAL Sodium Chloride (SODIUM CHLORIDE 0.9%) 500 ML TN EOP ONCALL IV Sodium Chloride (SODIUM CHLORIDE 0.9%) 500 ML TN EOP ONCALL IV Sodium Chloride (SODIUM CHLORIDE 0.9%) 1,000 ML PREOP ONCALL IV Sodium Chloride (SODIUM CHLORIDE) 5 ML ASDIR PRN IV Sodium Chloride (SODIUM CHLORIDE) 10 ML ASDIR TN N IV Sodium Chloride (SODIUM CHLORIDE 0.9%) 250 ML DIR PRN IV Sodium Hypochlorite (DAKIN'S / STR (0.125%) 47 3ML) 1 APPLIC DAILY TOPICAL Acetaminophen (TYLENOL) 650 MG Q4H PRN PRN PO Dextrose/Water (DEXTROSE 10% IN WATER) 125 ML DIR PRN IV (CKD) Dextrose/Water (DEXTROSE 10% IN WATER) 250 ML DIR PRN IV (CKD) Glucagon (GLUCAGON) 1 MG ASDIR PRN IM Hydromorphone HCl (DILAUDID) 0.5 MG Q4H PRN PRN IV Gabapentin (NEURONTIN) 300 MG BEDTIME PO Piperacillin Sod/Tazobactam Sod (ZOSYN 3.375GM) 3.375 GM Q8H IV Sodium Chloride (SODIUM CHLORIDE 0.9% 100 ML) 1 00 ML Insulin Human Lispro (HUMALOG) 10 UNIT AC BK GRACE SUBQ Furosemide (LASIX) 40 MG DAILY PO Loratadine (CLARITIN) 10 MG DAILY PO Tramadol HCl (ULTRAM) 100 MG Q6H PRN PRN PO Amitriptyline HCl (ELAVIL) 25 MG BEDTIME PO Atorvastatin Calcium (LIPITOR) 80 MG DAILY@2100 PO Ursodiol (ActigalL) 300 MG C BK DIN PO Insulin Human Lispro (HUMALOG) 10 UNIT AC DIN MARR BQ Insulin Human Lispro (HUMALOG) 0 AC HS SUBQ Sterile Water (WATER FOR IRRIGATION) DRESSING CH SHERICE ASDIR PRN IRR Aspirin (ASPIRIN) 81 MG DAILY PO Citalopram Hydrobromide (CeleXA) 20 MG DAILY PO Metoprolol Tartrate (LOPRESSOR) 25 MG DAILY PO Tamsulosin HCl (Flomax 0.4 mg) 0.4 MG DAILY PO Ondansetron HCl (ZOFRAN) 4 MG Q6H PRN PRN IV Dietitian nutrition assessment The data set between the solid lines has been im ported from the dietitian's assessment. BMI Calculated: 26.8 Nutrition related diagnosis: Nutrition diagnosis details: Nutrition problem: Nutrition etiology: Nutrition signs and symptoms: Nutrition prescription: Dietitian name: Assessment completed: Physical Exam General appearance: alert, awake, oriented Head/Eyes: atraumatic, clear cornea, EOMI, normo cephalic, normal conjunctiva/ sclera Neck: full range of motion, non-tender, no bruit /NL carotids Cardiovascular: normal capillary refill, regular rate rhythm, normal heart sounds, BP/pulses equal bilat. Respiratory: clear to auscultation, no distress, no tenderness, aerating well Abdomen: soft, non-tender, no guarding Genitourinary: Genitourinary: urinary catheter in place, good urine output Extremities: moves all, no edema, normal capilla ry refill, normal range of motion Skin: dry, intact, no gross abnormalities, tra l color, L foot wound wrapped Results Findings/Data: Laboratory Tests: 01/07 01/07 01/06 1121 0710 1600 Chemistry POC Glucose (70 - 110 MG/DL) 237 H 249 H 266 H Results: labs reviewed, vital signs reviewed Diagnosis, Assessment Plan Free Text A P: Assessment BPH Urinary retention Bhardwaj in situ Bacteremia Leukocytosis Proteinuria Microhematuria WISAM on CKD Plan Keep Bhardwaj Urine culture negative Renal u/s WNL Continue Flomax Voiding trials once clinically improved outpatient cystoscopy and urodynamics Monitor for hematuria We will follow Heme and lytes per primary team ABX per ID Thank you for this kind consult Electronically Signed by Dima Forbes LINK CUTTER on at 1150 RPT #:[id number] END OF REPORT 2022-01-07 [facility] 10:44:00-00:00 [facility] ([facility]) Hospitalist Progress Note REPORT#:[id number] REPORT STATUS: Signed DATE:01/07/22 TIME: 1044 PATIENT: PEDRO MCGREGOR UNIT #: [id number] ROOM/BED: [place] [address] : 54 AGE: 66 SEX: M ATTEND: Jean-Paul Ward od, MD ADM AUTHOR: Lexa Samson LINK CUTTER * ALL edits or amendments must be made on the Material Mix/computer document * MaliObed hardingit 01/07/22 1044: Subjective Chief complaint: He is tolreating wound care. His Left LE and foot pain controlled. No CP, fever, chills. No N/v/D. BP and HR stable. Bhardwaj in placed. Review of Systems Constitutional: Reports: fatigue, generalized weakness. Allergy/Immun: Denies: anaphylaxis, itching. ENT: Denies: ear ringing, mouth pain, nasal c ongestion, sinus problem, throat pain, tongue pain. Respiratory: Denies: hemoptysis, parox nocturnal dyspnea, ple urisy, pleuritic pain, productive cough (sputum), SOB. Cardiovascular: Denies: GIBBS (dyspnea on exertion), orthopnea, pa lpitations, parox nocturnal dyspnea. GI: Denies: constipation, dysphagia, GERD, hiatal he rnia, melena. : Denies: flank pain, hematuria, nocturia, penile discharge, penile lesion. Heme: Denies: bleeding, petechiae. Neuro: Denies: change in LOC, dizziness, gait problem, headache, numbness, slurred speech. Objective General VS/I O: Vital Signs: Date Time Temp Pulse Resp B/P B/P Pulse O2 O2 F low FiO2 Mean Ox Delivery Rate 01/07 0709 36.5 78 14 132/66 88.2 98 01/07 0444 36.3 88 17 123/75 91.0 98 01/07 0023 36.8 79 17 117/64 81.5 97 01/06 2016 37.0 74 17 117/63 81.1 99 01/06 1601 36.6 83 14 111/56 74.8 95 01/06 1106 36.3 87 14 119/72 87.8 95 24 hour I O ending at 0700: 01/07 0700 01/06 1900 Intake Total Output Total 2200 Balance -2200 Output, Urine 2200 PATIENT WEIGHT: Weight (lb): Weight (oz): Weight (kg): 100.000 Medications: Active Meds + DC'd Last 24 Hrs Sodium Chloride (SODIUM CHLORIDE) 10 ML BID IV ( UNV) Lidocaine HCl (LIDOCAINE 1% 5ML) 5 ML ONCE ONE L OCAL (UNV) Sodium Chloride (SODIUM CHLORIDE) 10 ML ASDIR TN N IV (UNV) Acetaminophen (TYLENOL EXTRA STRENGTH) 1,000 MG PREOP ONCALL PO (CKD) Gabapentin (NEURONTIN) 200 MG PREOP ONCALL PO (C KD) Lactated Ringer's (LACTATED RINGERS) 1,000 ML TN EOP ONCALL IV Lidocaine HCl (LIDOCAINE HCL/PF) 2 ML PREOP ONCA LL LOCAL Lidocaine HCl (LIDOCAINE HCL/PF) 2 ML PREOP ONCA LL LOCAL Sodium Chloride (SODIUM CHLORIDE 0.9%) 500 ML P REOP ONCALL IV Sodium Chloride (SODIUM CHLORIDE 0.9%) 500 ML TN EOP ONCALL IV Sodium Chloride (SODIUM CHLORIDE 0.9%) 1,000 ML PREOP ONCALL IV Sodium Chloride (SODIUM CHLORIDE) 5 ML ASDIR PRN IV Sodium Chloride (SODIUM CHLORIDE) 10 ML ASDIR TN N IV Sodium Chloride (SODIUM CHLORIDE 0.9%) 250 ML DIR PRN IV Sodium Hypochlorite (DAKIN'S 1/4 STR (0.125%) 47 3ML) 1 APPLIC DAILY TOPICAL Acetaminophen (TYLENOL) 650 MG Q4H PRN PRN PO Dextrose/Water (DEXTROSE 10% IN WATER) 125 ML DIR PRN IV (CKD) Dextrose/Water (DEXTROSE 10% IN WATER) 250 ML DIR PRN IV (CKD) Glucagon (GLUCAGON) 1 MG ASDIR PRN IM Hydromorphone HCl (DILAUDID) 0.5 MG Q4H PRN PRN IV Gabapentin (NEURONTIN) 300 MG BEDTIME PO Piperacillin Sod/Tazobactam Sod (ZOSYN 3.375GM) 3.375 GM Q8H IV Sodium Chloride (SODIUM CHLORIDE 0.9% 100 ML) 1 00 ML Insulin Human Lispro (HUMALOG) 10 UNIT AC BK GRACE SUBQ Furosemide (LASIX) 40 MG DAILY PO Loratadine (CLARITIN) 10 MG DAILY PO Tramadol HCl (ULTRAM) 100 MG Q6H PRN PRN PO Amitriptyline HCl (ELAVIL) 25 MG BEDTIME PO Atorvastatin Calcium (LIPITOR) 80 MG DAILY@2100 PO Ursodiol (ActigalL) 300 MG C BK DIN PO Insulin Human Lispro (HUMALOG) 10 UNIT AC DIN MARR BQ Insulin Human Lispro (HUMALOG) 0 AC HS SUBQ Sterile Water (WATER FOR IRRIGATION) DRESSING CH SHERICE ASDIR PRN IRR Aspirin (ASPIRIN) 81 MG DAILY PO Citalopram Hydrobromide (CeleXA) 20 MG DAILY PO Metoprolol Tartrate (LOPRESSOR) 25 MG DAILY PO Tamsulosin HCl (Flomax 0.4 mg) 0.4 MG DAILY PO Ondansetron HCl (ZOFRAN) 4 MG Q6H PRN PRN IV Dietitian nutrition assessment The data set between the solid lines has been im ported from the dietitian's assessment. BMI Calculated: 26.8 Nutrition related diagnosis: Nutrition diagnosis details: Nutrition problem: Nutrition etiology: Nutrition signs and symptoms: Nutrition prescription: Dietitian name: Assessment completed: Physical Exam General appearance: obese, alert, awake, oriente d Head/Eyes: atraumatic, EOMI ENT: moist mucosal membranes Neck: full range of motion, normal thyroid Cardiovascular: normal heart sounds, regular rat e rhythm Respiratory: aerating well, clear to auscultatio n, symmetric expansion Abdomen: non-tender, normal bowel sounds, soft Genitourinary: urinary catheter Extremities: no clubbing, no cyanosis, left foot : drssing C/D/I Neuro/METAL WELDER: alert, oriented X 3 Psychiatry: normal affect, normal mood Results Findings/Data: Laboratory Tests 01/07 01/06 01/06 0710 1600 1104 Chemistry POC Glucose (70 - 110 MG/DL) 249 H 266 H 311 H Results: labs reviewed, vital signs reviewed, vi maida signs stable, current med profile rev'd Treatment Prophylaxis Treatment Prophylaxis Oxygen: room air Diagnosis, Assessment Plan Orders: Procedure Date/time Status PHYSICAL THERAPIST CONSULT 01/07 1044 Active Occupational Therapist Consult 01/08 1044 Activ e Case Management Consult 01/08 1044 Active Code status: full code Plan discussed with: patient, admitting physicia n, consultants, nurse Free Text DxA P Notes Free text DxA P notes: Assessment and PlaN; - Bacteremia , recurrent Enterococcal Faecalis b acteremia. - Sepsis POA due to left foot OM. - Left Foot OM failed Outpt treatment. - Non healing wound of Left foot. - Hyponatremia - Left foot pain due to OM. - HX of HTN, HLD, DM type II, Liver disa se, Heart disease, diabetes neuropathy - Over weight 26.8. - On bhardwaj 2/ non weight bearing of foot - UA positive for LE, UTI - Hypomagnesemia-replaced - PVD Plan: Floor. Will consult CM for SNF for ABX and wound care. Left Ankle wound cx showed ENTEROCOCCUS FAECALIS and Left foot wound cx showed ESCHERICHIA COLI/ENTEROCOCCUS SPECIES. S/P reduction of fracture with external fixation . s/p YOLA today was negative for endocarditis. CM for SNF placement. PAIN CONTROL IV abx per ID f/u Cardiology Vascular sx CONSULT Appreciated Podiatry for Left foot wound. ID for left foot OM. Pain meds. Antiemetics. Glycemic control, accu check AC HS, ISS. Diabetic diet. Follow labs and replace as needed. Continue home meds. Monitor. Chelo Ward 01/07/22 2030: Attestations Physician Attestation Agree w/findings plan: Patient seen and examined and I agree with the f indings and plan as discussed with and documented by Lexa Benz NP Electronically Signed by Lexa Samson NP on at 1046 at 2055 RPT #:[id number] END OF REPORT 2022-01-07 [facility] 10:13:00-00:00 [facility] ([facility]) Infectious Dis. Progress Note REPORT#:[id number] REPORT STATUS: Signed DATE:01/07/22 TIME: 1013 PATIENT: PEDRO MCGREGOR UNIT #: [id number] ROOM/BED: [place] [address] : [birth year] AGE: 66 SEX: M ATTEND: Jean-Paul Ward od, MD ADM AUTHOR: Enrrique King MD * ALL edits or amendments must be made on the Material Mix/computer document * Subjective Chief complaint: LEFT FOOT INFECTION HPI: This is a 66-year-old male p atient with history of peripheral vascular disease, type 2 diabetes and neuropat hy who has been admitted for a left foot infection. He was admitted earlier this month to [facility] and was found to have a complicated gas-forming polymicrobial in fection of the left leg including osteomyelitis and septic arthritis of the left foot and ankle. His wound cultures grew Ente rococcus faecalis B fragilis, and gram-negative rods including Proteus. He also had Enterococcus faecalis bacteremia in November. He was treated multiple times with appropriate a ntibiotics but was thought to lack source control and was recommended BKA at t hat time. His blood cultures are now again growing Enteroc occus species. Patient reports: No: abdominal pain, back pain, burning with urin ation, cough, feeling better, fever, pain, shortness of breath. Objective Physical Exam Wound/incision: Location: Left foot and ankle ulcers dressing saturated Head/Eyes: atraumatic, clear cornea ENT: moist mucosal membranes, normal dentition Neck: full range of motion, non-tender Cardiovascular: normal heart sounds, regular rat e rhythm Respiratory: clear to auscultation, aerating wel l Abdomen: non-tender, normal bowel sounds Results Findings/Data: Laboratory Tests 01/07 01/06 01/06 0710 1600 1104 Chemistry POC Glucose (70 - 110 MG/DL) 249 H 266 H 311 H Diagnosis, Assessment Plan Free Text A P: 1-Recurrent Enterococcus faecalis bacteremia hig h suspicion for endovascular infection including endocarditis 2-Osteomyelitis and septic arthritis of the left foot and ankle 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 4-Peripheral vascular disease Recommendations Zosyn monotherapy given microbiology Cardiology consult for YOLA Repeat blood cultures until negative Vascular surgery consultation for possib le angiogram and correction of disease 01/03 Continue antibiotics Await debridement by podiatry Await vascular intervention Await YOLA 01/04 For angiogram tommorow Continue Zosyn 01/05 The YOLA is negative Angiogram is pending Surgical intervention is pending We will arrange long-term antibiotics after proc edures are completed 01/06 Status post external fixator placement Continue IV Zosyn Will arrange long-term IV antibiotics on dischar ge Likely will need amputation in the near future 01/07 Will order home infusion with Zosyn and a PICC l ine Likely this will happen on Monday Electronically Signed by Enrrique King MD on at 1014 RPT #:[id number] END OF REPORT 2022-01-06 [facility] 23:27:00-00:00 [facility] ([facility]) Pain Management Progress Note REPORT#:[id number] REPORT STATUS: Signed DATE:01/06/22 TIME: 2326 PATIENT: PEDRO MCGREGOR UNIT #: [id number] ROOM/BED: [address] : [birth year] AGE: 66 SEX: M ATTEND: Jean-Paul Ward od, MD ADM AUTHOR: Betty Tejeda APRN * ALL edits or amendments must be made on the Material Mix/computer document * Subjective Chief Complaint: Left foot pain Comments: pt seen, lying in bed, resti ng comfortably. exfix in place. denies other issues. Review of Systems Free Text ROS Notes Free Text ROS Notes: 12 point ROS reviewed and negative unless stated otherwise Objective General VS/I O: Vital Signs Date Temp Pulse Resp B/P B/P Mean Pulse Ox FiO2 01/06 36.3-37.0 74-98 14-17 111-147/56-80 74.8- 101.2 94-99 Last Documented: Result Date Time Pulse Ox 99 01/07 2016 B/P 117/63 01/07 2016 B/P Mean 81.1 01/07 2016 Temp 37.0 01/07 2016 Pulse 74 01/07 2016 Resp 17 01/07 2016 O2 Delivery Nasal cannula 01/05 2305 O2 Flow Rate 2 01/05 2305 24 hour I O ending at 0700: 01/06 0700 01/05 1900 Intake Total 150.00 Output Total 1100 300 Balance -950.00 -300 Intake, IV 150.00 Output, Urine 1100 300 PATIENT WEIGHT: Weight (lb): Weight (oz): Weight (kg): 100.000 Medications: Active Meds + DC'd Last 24 Hrs Acetaminophen (TYLENOL EXTRA STRENGTH) 1,000 MG PREOP ONCALL PO (CKD) Gabapentin (NEURONTIN) 200 MG PREOP ONCALL PO (C KD) Lactated Ringer's (LACTATED RINGERS) 1,000 ML TN EOP ONCALL IV Lidocaine HCl (LIDOCAINE HCL/PF) 2 ML PREOP ONCA LL LOCAL Lidocaine HCl (LIDOCAINE HCL/PF) 2 ML PREOP ONCA LL LOCAL Sodium Chloride (SODIUM CHLORIDE 0.9%) 500 ML TN EOP ONCALL IV Sodium Chloride (SODIUM CHLORIDE 0.9%) 500 ML TN EOP ONCALL IV Sodium Chloride (SODIUM CHLORIDE 0.9%) 1,000 ML PREOP ONCALL IV Sodium Chloride (SODIUM CHLORIDE) 5 ML ASDIR PRN IV Sodium Chloride (SODIUM CHLORIDE) 10 ML ASDIR TN N IV Sodium Chloride (SODIUM CHLORIDE 0.9%) 250 ML DIR PRN IV Sodium Hypochlorite (DAKIN'S 1/4 STR (0.125%) 47 3ML) 1 APPLIC DAILY TOPICAL Acetaminophen (TYLENOL) 650 MG Q4H PRN PRN PO Dextrose/Water (DEXTROSE 10% IN WATER) 125 ML DIR PRN IV (CKD) Dextrose/Water (DEXTROSE 10% IN WATER) 250 ML DIR PRN IV (CKD) Glucagon (GLUCAGON) 1 MG ASDIR PRN IM Hydromorphone HCl (DILAUDID) 0.5 MG Q4H PRN PRN IV Gabapentin (NEURONTIN) 300 MG BEDTIME PO Piperacillin Sod/Tazobactam Sod (ZOSYN 3.375GM) 3.375 GM Q8H IV Sodium Chloride (SODIUM CHLORIDE 0.9% 100 ML) 1 00 ML Insulin Human Lispro (HUMALOG) 10 UNIT AC BK GRACE SUBQ Furosemide (LASIX) 40 MG DAILY PO Loratadine (CLARITIN) 10 MG DAILY PO Tramadol HCl (ULTRAM) 100 MG Q6H PRN PRN PO Amitriptyline HCl (ELAVIL) 25 MG BEDTIME PO Atorvastatin Calcium (LIPITOR) 80 MG DAILY@2100 PO Ursodiol (ActigalL) 300 MG C BK DIN PO Insulin Human Lispro (HUMALOG) 10 UNIT AC DIN MARR BQ Insulin Human Lispro (HUMALOG) 0 AC HS SUBQ Sterile Water (WATER FOR IRRIGATION) DRESSING CH SHERICE ASDIR PRN IRR Aspirin (ASPIRIN) 81 MG DAILY PO Citalopram Hydrobromide (CeleXA) 20 MG DAILY PO Metoprolol Tartrate (LOPRESSOR) 25 MG DAILY PO Tamsulosin HCl (Flomax 0.4 mg) 0.4 MG DAILY PO Ondansetron HCl (ZOFRAN) 4 MG Q6H PRN PRN IV Physical Exam General appearance: sleeping comfortably Head/Eyes: atraumatic, EOMI, normocephalic ENT: normal nose, normal sinus, moist mucosal me mbranes Neck: no masses or swelling, supple/no meningism us Cardiovascular: normal capillary refill, regular rate rhythm Respiratory: no distress, aerating well, symmetr ic expansion Abdomen: non-tender, no rebound, no distention Extremities: no edema, no clubbing, no c yanosis, decreased range of motion (of LLE 2/2 pain) Neuro/METAL WELDER: alert, oriented X 3, normal speech Skin: dry, intact, warm Results Findings/data: Laboratory Tests: 01/06 01/06 01/06 1600 1104 0745 Chemistry POC Glucose (70 - 110 MG/DL) 266 H 311 H 295 H Results: labs reviewed, vital signs stable Diagnosis, Assessment Plan Free text A P: Pedro Mcgregor is a 66yo male with PMH of DM II, HTN, CAD, HLD, and diabetic ulcers that was admitted with a left foot infection. 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 Dilaudid IV 0.5mg Q4hrs PRN severe pain Tramadol 100mg PO Q6hrs PRN moderate pain Gabapentin 300mg PO QHS for neuropathic pain s/p reduction of fracture with external fixation on 01/05/22 Left foot infection - abx, podiatry following, p ending left BKA or LLE arteriogram on 01/05/22 Bacteremia - s/p YOLA on 01/04/22 DM - SSI HLD - Lipitor HTN - Metoprolol BPH - Flomax CAD - ASA 81mg DC planning to SNF Please hold all narcotics for SBP < 90mm hg, Respiratory rate <8bpm, or altered mentation. Please call with any questions or concerns Thank you for allowing me to participate in this patient's care. Plan of care discussed with Dr. Posada and Dr. Felipe kumar, patient, primary team, and RN. All questions answered. Patient agrees w ith above plan of care. All diagnostic studies, ASSISTANT CHIEF TRAIN DISPATCHER, and labs in the pas t 24 hours reviewed and interpreted with Dr. Posada and Dr. Carter. [place] ASSISTANT CHIEF TRAIN DISPATCHER verified 12/31/21 at 2329 Electronically Signed by Kanwal Carter DO on 1 03/14/21 at 1104 RPT #:[id number] END OF REPORT 2022-01-06 [facility] 11:51:00-00:00 [facility] ([facility]) Infectious Dis. Progress Note REPORT#:[id number] REPORT STATUS: Signed DATE:01/06/22 TIME: 1151 PATIENT: PEDRO MCGREGOR UNIT #: [id number] ROOM/BED: [place] [address] : 54 AGE: 66 SEX: M ATTEND: Jean-Paul Ward od, MD ADM AUTHOR: Enrrique King MD * ALL edits or amendments must be made on the Material Mix/computer document * Subjective Chief complaint: LEFT FOOT INFECTION HPI: This is a 66-year-old male p atient with history of peripheral vascular disease, type 2 diabetes and neuropat hy who has been admitted for a left foot infection. He was admitted earlier this month to [facility] and was found to have a complicated gas-forming polymicrobial in fection of the left leg including osteomyelitis and septic arthritis of the left foot and ankle. His wound cultures grew Ente rococcus faecalis B fragilis, and gram-negative rods including Proteus. He also had Enterococcus faecalis bacteremia in November. He was treated multiple times with appropriate a ntibiotics but was thought to lack source control and was recommended BKA at t hat time. His blood cultures are now again growing Enteroc occus species. Patient reports: No: abdominal pain, back pain, burning w ith urination, cough, diarrhea, fever, headache, nausea, pain. Objective Physical Exam Wound/incision: Location: Left foot and ankle ulcers dressing saturated Head/Eyes: atraumatic, clear cornea ENT: moist mucosal membranes, normal dentition Neck: full range of motion, non-tender Cardiovascular: normal heart sounds, regular rat e rhythm Respiratory: clear to auscultation, aerating wel l Abdomen: non-tender, normal bowel sounds Results Findings/Data: Laboratory Tests 01/06 01/06 01/05 01/05 1104 0745 1905 1513 Chemistry POC Glucose (70 - 110 MG/DL) 311 H 295 H 196 H 225 H Diagnosis, Assessment Plan Free Text A P: 1-Recurrent Enterococcus faecalis bacteremia hig h suspicion for endovascular infection including endocarditis 2-Osteomyelitis and septic arthritis of the left foot and ankle 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 4-Peripheral vascular disease Recommendations Zosyn monotherapy given microbiology Cardiology consult for YOLA Repeat blood cultures until negative Vascular surgery consultation for possib le angiogram and correction of disease 01/03 Continue antibiotics Await debridement by podiatry Await vascular intervention Await YOLA 01/04 For angiogram tommorow Continue Zosyn 01/05 The YOLA is negative Angiogram is pending Surgical intervention is pending We will arrange long-term antibiotics after proc edures are completed 01/06 Status post external fixator placement Continue IV Zosyn Will arrange long-term IV antibiotics on dischar ge Likely will need amputation in the near future Electronically Signed by Enrrique King MD on at 1152 RPT #:[id number] END OF REPORT 2022-01-06 [facility] 10:25:00-00:00 [facility] ([facility]) Urology Progress Note REPORT#:[id number] REPORT STATUS: Signed DATE:01/06/22 TIME: 1025 PATIENT: PEDRO MCGREGOR UNIT #: [id number] ROOM/BED: [facility] : 54 AGE: 66 SEX: M ATTEND: Jean-Paul Ward od, MD ADM AUTHOR: Dima Forbes NP * ALL edits or amendments must be made on the el Brass Monkey/computer document * Subjective Chief complaint: URINARY RETENTION HPI: 66-year-old male with a history of hypertension, diabetes, hyperlipidemia, osteomyelitis, and CAD admitted for left foot in fection. He has associated generalized weakness, chills, and nausea , vomit ing. He has been on multiple rounds of antibiotics for this infection without relief. He denies chest pain, dyspnea, changes in his bowel/bladder movements, headache, blurred vision, or any other symptoms. Urologic al consultation was sought for the evaluation of the retention of urine and Bhardwaj catheter. H is Bhardwaj was recently changed . He was found to have positive blood cultures, urine cul ture is pending. UA was abnormal. WBC's are elevated 01/06/2022 - His bhardwaj was r emoved without our consultation . He failed to void overnight, Bhardwaj was instructed to be replaced , pending vascular provedures. Patient reports: no urinary pain, no abdominal p ain, no back pain Nursing reports: no urinary pain, no abdominal p ain, no back pain Objective General VS/I O: Last Documented: Result Date Time Pulse Ox 94 01/06 0745 B/P 147/72 01/06 0745 B/P Mean 97.1 01/06 0745 Temp 36.5 01/06 0745 Pulse 90 01/06 0745 Resp 14 01/06 0745 O2 Delivery Nasal cannula 01/05 2305 O2 Flow Rate 2 01/05 2305 24 hour I O ending at 0700: 01/06 0700 01/05 1900 Intake Total 150.00 Output Total 1100 300 Balance -950.00 -300 Intake, IV 150.00 Output, Urine 1100 300 PATIENT WEIGHT: Weight (lb): Weight (oz): Weight (kg): 100.000 Medications: Active Meds + DC'd Last 24 Hrs Piperacillin Sod/Tazobactam Sod (ZOSYN 3.375GM) 0 .STK-MED ONE IV (DC) Diphenhydramine HCl (BENADRYL) 12.5 MG PACU ONCE PRN IV (DC) Fentanyl Citrate (SUBLIMAZE) 100 MCG PACU Q10MIN PRN PRN IV (DC) Fentanyl Citrate (SUBLIMAZE) 50 MCG PACU Q10MIN PRN PRN IV (DC) Hydralazine HCl (APRESOLINE) 5 MG PACU Q10MIN TN N PRN IV (DC) Hydrocodone Bitart/Acetaminophen (NORCO 5/325) 1 TAB PACU ONCE PO (DC) Hydromorphone HCl (DILAUDID) 1 MG PACU Q10MIN TN N PRN IV (DC) Hydromorphone HCl (DILAUDID) 0.5 MG PACU Q5MIN P RN PRN IV (DC) Insulin Human Lispro (HUMALOG) 0 PACU ONCE PRN S UBQ (DC) Labetalol HCl (LABETALOL HCL) 5 MG PACU Q10MIN P RN PRN IV (DC) Lactated Ringer's (LACTATED RINGERS) 1,000 ML .Q 24H IV (DC) Meperidine HCl (MEPERIDINE HCL/PF) 12.5 MG PACU ONCE PRN IV (DC) Morphine Sulfate (morphine SULFATE) 2 MG PACU Q1 0MIN PRN PRN IV (DC) Ondansetron HCl (ZOFRAN) 4 MG PACU ONCE PRN IV ( DC) Promethazine HCl (PHENERGAN) 25 MG PACU ONCE PRN PO (DC) Ropivacaine (NAROPIN 0.5% 150 MG/30mL) 150 MG DIR PRN LOCAL (DC) Tramadol HCl (ULTRAM) 50 MG PACU ONCE PO (DC) Dexamethasone Sodium Phosphate (DECADRON) 0 .STK -MED ONE .ROUTE (DC) Lidocaine HCl (XYLOCAINE) 0 .STK-MED ONE .ROUTE (DC) Ondansetron HCl (ZOFRAN) 0 .STK-MED ONE .ROUTE ( DC) Fentanyl Citrate (SUBLIMAZE) 0 .STK-MED ONE .ROU TE (DC) Propofol (DIPRIVAN 200MG/20ML INJECTION) 20 ML . STK-MED ONE IV (DC) Acetaminophen (TYLENOL EXTRA STRENGTH) 0 .STK-ME D ONE .ROUTE (DC) Gabapentin (NEURONTIN) 0 .STK-MED ONE .ROUTE (DC ) Acetaminophen (TYLENOL EXTRA STRENGTH) 1,000 MG PREOP ONCALL PO (CKD) Gabapentin (NEURONTIN) 200 MG PREOP ONCALL PO ( CKD) Lactated Ringer's (LACTATED RINGERS) 1,000 ML TN EOP ONCALL IV Lidocaine HCl (LIDOCAINE HCL/PF) 2 ML PREOP ONCA LL LOCAL Lidocaine HCl (LIDOCAINE HCL/PF) 2 ML PREOP ONCA LL LOCAL Sodium Chloride (SODIUM CHLORIDE 0.9%) 500 ML TN EOP ONCALL IV Sodium Chloride (SODIUM CHLORIDE 0.9%) 500 ML TN EOP ONCALL IV Sodium Chloride (SODIUM CHLORIDE 0.9%) 1,000 ML PREOP ONCALL IV Sodium Chloride (SODIUM CHLORIDE) 5 ML ASDIR PRN IV Sodium Chloride (SODIUM CHLORIDE) 10 ML ASDIR TN N IV Sodium Chloride (SODIUM CHLORIDE 0.9%) 250 ML DIR PRN IV Sodium Hypochlorite (DAKIN'S 1/4 STR (0.125%) 47 3ML) 1 APPLIC DAILY TOPICAL Acetaminophen (TYLENOL) 650 MG Q4H PRN PRN PO Dextrose/Water (DEXTROSE 10% IN WATER) 125 ML DIR PRN IV (CKD) Dextrose/Water (DEXTROSE 10% IN WATER) 250 ML DIR PRN IV (CKD) Glucagon (GLUCAGON) 1 MG ASDIR PRN IM Hydromorphone HCl (DILAUDID) 0.5 MG Q4H PRN PRN IV Gabapentin (NEURONTIN) 300 MG BEDTIME PO Piperacillin Sod/Tazobactam Sod (ZOSYN 3.375GM) 3.375 GM Q8H IV Sodium Chloride (SODIUM CHLORIDE 0.9% 100 ML) 1 00 ML Insulin Human Lispro (HUMALOG) 10 UNIT AC BK GRACE SUBQ Furosemide (LASIX) 40 MG DAILY PO Loratadine (CLARITIN) 10 MG DAILY PO Tramadol HCl (ULTRAM) 100 MG Q6H PRN PRN PO Amitriptyline HCl (ELAVIL) 25 MG BEDTIME PO Atorvastatin Calcium (LIPITOR) 80 MG DAILY@2100 PO Ursodiol (ActigalL) 300 MG C BK DIN PO Insulin Human Lispro (HUMALOG) 10 UNIT AC DIN MARR BQ Insulin Human Lispro (HUMALOG) 0 AC HS SUBQ Sterile Water (WATER FOR IRRIGATION) DRESSING CH SHERICE ASDIR PRN IRR Aspirin (ASPIRIN) 81 MG DAILY PO Citalopram Hydrobromide (CeleXA) 20 MG DAILY PO Metoprolol Tartrate (LOPRESSOR) 25 MG DAILY PO Tamsulosin HCl (Flomax 0.4 mg) 0.4 MG DAILY PO Ondansetron HCl (ZOFRAN) 4 MG Q6H PRN PRN IV Dietitian nutrition assessment The data set between the solid lines has been im ported from the dietitian's assessment. BMI Calculated: 26.8 Nutrition related diagnosis: Nutrition diagnosis details: Nutrition problem: Nutrition etiology: Nutrition signs and symptoms: Nutrition prescription: Dietitian name: Assessment completed: Physical Exam General appearance: alert, awake, oriented Head/Eyes: atraumatic, clear cornea, EOMI, normo cephalic, normal conjunctiva/ sclera Neck: full range of motion, non-tender, no bruit /NL carotids Cardiovascular: normal capillary refill, regular rate rhythm, normal heart sounds, BP/pulses equal bilat. Respiratory: clear to auscultation, no distress, no tenderness, aerating well Abdomen: soft, non-tender, no guarding Genitourinary: Genitourinary: urinary catheter in place, good urine output Extremities: moves all, no edema, normal capilla ry refill, normal range of motion Skin: dry, intact, no gross abnormalities, tra l color, L foot wound wrapped Results Findings/Data: Laboratory Tests: 01/06 01/05 01/05 01/05 0745 1905 1513 1103 Chemistry POC Glucose (70 - 110 MG/DL) 295 H 196 H 225 H 262 H Recent Impressions: RADIOLOGY - XR FLUOROSCOPY 0-60 MIN 01/05 1030 Report Impression - Status: SIGNED Entered: 01/05/20222256 IMPRESSION: Fluoroscopy dosage documentation. See also separ ate procedure notes. Impression By: Tuh Al M.D. Results: labs reviewed, vital signs reviewed Diagnosis, Assessment Plan Free Text A P: Assessment BPH Urinary retention Bhardwaj in situ Bacteremia Leukocytosis Proteinuria Microhematuria WISAM on CKD Plan Keep Bhardwaj Urine culture negative Renal u/s WNL Continue Flomax Voiding trials once clinically improved outpatient cystoscopy and urodynamics Monitor for hematuria We will follow Heme and lytes per primary team ABX per ID Thank you for this kind consult Electronically Signed by Dima Forbes NP on at 1026 [facility] #:[phone] END OF REPORT 2022-01-06 [facility] 09:14:00-00:00 [facility] ([facility]) Hospitalist Progress Note REPORT#:[id number] REPORT STATUS: Signed DATE:01/06/22 TIME: 913 PATIENT: PEDRO MCGREGOR UNIT #: [id number] ROOM/BED: [place] [address] : 54 AGE: 66 SEX: M ATTEND: Jean-Paul Ward od, MD ADM AUTHOR: Lexa Samson NP * ALL edits or amendments must be made on the Material Mix/computer document * Lexa Samson 01/06/22 0914: Subjective Chief complaint: S/P reduction of fracture with external fixation . His Left LE and foot pain controlled. No CP, fever, chills. No N/v/D. BP and HR stable. Bhardwaj in placed. Review of Systems Constitutional: Reports: fatigue, generalized weakness. Allergy/Immun: Denies: anaphylaxis, hives, rhinorrhea. ENT: Denies: ear ringing, mouth pain, sore throat. Respiratory: Denies: hemoptysis, pleurisy. Cardiovascular: Denies: GIBBS (dyspnea on exertion), orthopnea, pa lpitations. GI: Denies: anorexia, diarrhea, hematochezia, melena . : Denies: flank pain, nocturia, testicular pain. Heme: Denies: bleeding, bruising. Neuro: Denies: change in LOC, dizziness, headache, slur red speech, syncope. Objective General VS/I O: Vital Signs: Date Time Temp Pulse Resp B/P B/P Pulse O2 O2 F low FiO2 Mean Ox Delivery Rate 01/06 0745 36.5 90 14 147/72 97.1 94 01/06 0346 36.7 98 17 143/80 101.2 96 01/06 0019 36.8 97 17 135/80 98.4 95 01/05 2305 Nasal 2 cannula 01/05 2200 36.6 85 13 146/57 100 Room air 01/05 2155 85 11 130/61 100 01/05 2150 83 11 100 01/05 2145 83 13 149/65 100 01/06 2140 85 13 198/76 100 01/05 2138 81 10 100 01/05 2135 82 9 179/74 100 01/05 2133 80 10 100 01/06 2132 Simple 6 mask 01/05 2130 83 10 173/77 100 01/06 2128 36.1 85 9 186/82 100 Simple 6 mask 01/05 1446 36.4 87 18 135/61 100 Room air 01/05 1105 100 16 124/68 86.6 94 24 hour I O ending at 0700: 01/06 0700 01/05 1900 Intake Total 150.00 Output Total 1100 300 Balance -950.00 -300 Intake, IV 150.00 Output, Urine 1100 300 PATIENT WEIGHT: Weight (lb): Weight (oz): Weight (kg): 100.000 Medications: Active Meds + DC'd Last 24 Hrs Piperacillin Sod/Tazobactam Sod (ZOSYN 3.375GM) 0 .STK-MED ONE IV (DC) Diphenhydramine HCl (BENADRYL) 12.5 MG PACU ONCE PRN IV (DC) Fentanyl Citrate (SUBLIMAZE) 100 MCG PACU Q10MIN PRN PRN IV (DC) Fentanyl Citrate (SUBLIMAZE) 50 MCG PACU Q10MIN PRN PRN IV (DC) Hydralazine HCl (APRESOLINE) 5 MG PACU Q10MIN TN N PRN IV (DC) Hydrocodone Bitart/Acetaminophen (NORCO 5/325) 1 TAB PACU ONCE PO (DC) Hydromorphone HCl (DILAUDID) 1 MG PACU Q10MIN P RN PRN IV (DC) Hydromorphone HCl (DILAUDID) 0.5 MG PACU Q5MIN P RN PRN IV (DC) Insulin Human Lispro (HUMALOG) 0 PACU ONCE PRN S UBQ (DC) Labetalol HCl (LABETALOL HCL) 5 MG PACU Q10MIN P RN PRN IV (DC) Lactated Ringer's (LACTATED RINGERS) 1,000 ML .Q 24H IV (DC) Meperidine HCl (MEPERIDINE HCL/PF) 12.5 MG PACU ONCE PRN IV (DC) Morphine Sulfate (morphine SULFATE) 2 MG PACU Q1 0MIN PRN PRN IV (DC) Ondansetron HCl (ZOFRAN) 4 MG PACU ONCE PRN IV ( DC) Promethazine HCl (PHENERGAN) 25 MG PACU ONCE PRN PO (DC) Ropivacaine (NAROPIN 0.5% 150 MG/30mL) 150 MG DIR PRN LOCAL (DC) Tramadol HCl (ULTRAM) 50 MG PACU ONCE PO (DC) Dexamethasone Sodium Phosphate (DECADRON) 0 .STK -MED ONE .ROUTE (DC) Lidocaine HCl (XYLOCAINE) 0 .STK-MED ONE .ROUTE (DC) Ondansetron HCl (ZOFRAN) 0 .STK-MED ONE .ROUTE ( DC) Fentanyl Citrate (SUBLIMAZE) 0 .STK-MED ONE .ROU TE (DC) Propofol (DIPRIVAN 200MG/20ML INJECTION) 20 ML . STK-MED ONE IV (DC) Acetaminophen (TYLENOL EXTRA STRENGTH) 0 .STK-ME D ONE .ROUTE (DC) Gabapentin (NEURONTIN) 0 .STK-MED ONE .ROUTE (DC ) Acetaminophen (TYLENOL EXTRA STRENGTH) 1,000 MG PREOP ONCALL PO (CKD) Gabapentin (NEURONTIN) 200 MG PREOP ONCALL PO (C KD) Lactated Ringer's (LACTATED RINGERS) 1,000 ML TN EOP ONCALL IV Lidocaine HCl (LIDOCAINE HCL/PF) 2 ML PREOP ONCA LL LOCAL Lidocaine HCl (LIDOCAINE HCL/PF) 2 ML PREOP ONCA LL LOCAL Sodium Chloride (SODIUM CHLORIDE 0.9%) 500 ML TN EOP ONCALL IV Sodium Chloride (SODIUM CHLORIDE 0.9%) 500 ML TN EOP ONCALL IV Sodium Chloride (SODIUM CHLORIDE 0.9%) 1,000 ML PREOP ONCALL IV Sodium Chloride (SODIUM CHLORIDE) 5 ML ASDIR PRN IV Sodium Chloride (SODIUM CHLORIDE) 10 ML ASDIR TN N IV Sodium Chloride (SODIUM CHLORIDE 0.9%) 250 ML DIR PRN IV Sodium Hypochlorite (DAKIN'S 1/4 STR (0.125%) 47 3ML) 1 APPLIC DAILY TOPICAL Acetaminophen (TYLENOL) 650 MG Q4H PRN PRN PO Dextrose/Water (DEXTROSE 10% IN WATER) 125 ML DIR PRN IV (CKD) Dextrose/Water (DEXTROSE 10% IN WATER) 250 ML DIR PRN IV (CKD) Glucagon (GLUCAGON) 1 MG ASDIR PRN IM Hydromorphone HCl (DILAUDID) 0.5 MG Q4H PRN PRN IV Gabapentin (NEURONTIN) 300 MG BEDTIME PO Piperacillin Sod/Tazobactam Sod (ZOSYN 3.375GM) 3.375 GM Q8H IV Sodium Chloride (SODIUM CHLORIDE 0.9% 100 ML) 1 00 ML Insulin Human Lispro (HUMALOG) 10 UNIT AC BK GRACE SUBQ Furosemide (LASIX) 40 MG DAILY PO Loratadine (CLARITIN) 10 MG DAILY PO Tramadol HCl (ULTRAM) 100 MG Q6H PRN PRN PO Amitriptyline HCl (ELAVIL) 25 MG BEDTIME PO Atorvastatin Calcium (LIPITOR) 80 MG DAILY@2100 PO Ursodiol (ActigalL) 300 MG C BK DIN PO Insulin Human Lispro (HUMALOG) 10 UNIT AC DIN MARR BQ Insulin Human Lispro (HUMALOG) 0 AC HS SUBQ Sterile Water (WATER FOR IRRIGATION) DRESSING CH SHERICE ASDIR PRN IRR Aspirin (ASPIRIN) 81 MG DAILY PO Citalopram Hydrobromide (CeleXA) 20 MG DAILY PO Metoprolol Tartrate (LOPRESSOR) 25 MG DAILY PO Tamsulosin HCl (Flomax 0.4 mg) 0.4 MG DAILY PO Ondansetron HCl (ZOFRAN) 4 MG Q6H PRN PRN IV Dietitian nutrition assessment The data set between the solid lines has been im ported from the dietitian's assessment. BMI Calculated: 26.8 Nutrition related diagnosis: Nutrition diagnosis details: Nutrition problem: Nutrition etiology: Nutrition signs and symptoms: Nutrition prescription: Dietitian name: Assessment completed: Physical Exam General appearance: alert, awake, oriented Head/Eyes: atraumatic, EOMI ENT: moist mucosal membranes Neck: full range of motion, normal thyroid Cardiovascular: normal heart sounds, regular rat e rhythm Respiratory: aerating well, clear to auscultatio n, symmetric expansion Abdomen: non-tender, normal bowel sounds, soft Genitourinary: urinary catheter Extremities: no clubbing, no cyanosis, left foot : drssing C/D/I Neuro/METAL WELDER: alert, oriented X 3 Psychiatry: normal affect, normal mood Results Findings/Data: Laboratory Tests 01/06 01/05 01/05 01/05 0745 1905 1513 1103 Chemistry POC Glucose (70 - 110 MG/DL) 295 H 196 H 225 H 262 H Radiology data: Recent Impressions: RADIOLOGY - XR FLUOROSCOPY 0-60 MIN 01/05 1030 Report Impression - Status: SIGNED Entered: 01/05/20222256 IMPRESSION: Fluoroscopy dosage documentation. See also separ ate procedure notes. Impression By: [email or web address] - Booker Al M.D. Results: labs reviewed, vital signs reviewed, vi maida signs stable, current med profile rev'd Treatment Prophylaxis Treatment Prophylaxis Oxygen: room air Diagnosis, Assessment Plan Code status: full code Plan discussed with: patient, admitting physicia n, consultants, nurse Free Text DxA P Notes Free text DxA P notes: Assessment and PlaN; - Bacteremia , recurrent Enterococcal Faecalis b acteremia. - Sepsis POA due to left foot OM. - Left Foot OM failed Outpt treatment. - Non healing wound of Left foot. - Hyponatremia - Left foot pain due to OM. - HX of HTN, HLD, DM type II, Liver disa se, Heart disease, diabetes neuropathy - Over weight 26.8. - On bhardwaj 2/2 non weight bearing of foot - UA positive for LE, UTI - Hypomagnesemia-replaced - PVD Plan: Floor. Left Ankle wound cx showed ENTEROCOCCUS FAECALIS and Left foot wound cx showed ESCHERICHIA COLI/ENTEROCOCCUS SPECIES. S/P reduction of fracture with external fixation . s/p YOLA today was negative for endocarditis. CM for SNF placement. PAIN CONTROL IV abx per ID f/u Cardiology Vascular sx CONSULT Appreciated Podiatry for Left foot wound. ID for left foot OM. Pain meds. Antiemetics. Glycemic control, accu check AC HS, ISS. Diabetic diet. Follow labs and replace as needed. Continue home meds. Monitor. Chelo Ward 01/07/222028: Attestations Physician Attestation Agree w/findings plan: Patient seen and examined and I agree with the f indings and plan as discussed with and documented by Lexa Benz NP Electronically Signed by Lexa Samson NP on at 0917 at 2054 RPT #:[id number] END OF REPORT 2022-01-06 [facility] 09:01:00-00:00 [facility] Podiatry Progress Note REPORT#:[id number] REPORT STATUS: Signed DATE:01/06/22 TIME: 900 PATIENT: PEDRO MCGREGOR UNIT #: [id number] ROOM/BED: [place] [address] : 54 AGE: 66 SEX: M ATTEND: Jean-Paul Ward od, MD ADM AUTHOR: Rohit Sharma DPM * ALL edits or amendments must be made on the Material Mix/computer document * Subjective Chief complaint: left foot infection HPI: FOOT ULCER Patient reports: no confusion, no dizziness, no fever, no headache, no nausea Objective General VS: Last Documented: Result Date Time Pulse Ox 94 01/06 0745 B/P 147/72 01/06 0745 B/P Mean 97.1 01/06 0745 Temp 97.7 01/06 0745 Pulse 90 01/06 0745 Resp 14 01/06 0745 O2 Delivery Nasal cannula 01/05 2305 O2 Flow Rate 2 01/05 2305 PATIENT WEIGHT: Weight (lb): Weight (oz): Weight (kg): 100.000 Medications: Active Meds + DC'd Last 24 Hrs Piperacillin Sod/Tazobactam Sod (ZOSYN 3.375GM) 0 .STK-MED ONE IV (DC) Diphenhydramine HCl (BENADRYL) 12.5 MG PACU ONCE PRN IV (DC) Fentanyl Citrate (SUBLIMAZE) 100 MCG PACU Q10MIN PRN PRN IV (DC) Fentanyl Citrate (SUBLIMAZE) 50 MCG PACU Q10MIN PRN PRN IV (DC) Hydralazine HCl (APRESOLINE) 5 MG PACU Q10MIN TN N PRN IV (DC) Hydrocodone Bitart/Acetaminophen (NORCO 5/325) 1 TAB PACU ONCE PO (DC) Hydromorphone HCl (DILAUDID) 1 MG PACU Q10MIN TN N PRN IV (DC) Hydromorphone HCl (DILAUDID) 0.5 MG PACU Q5MIN P RN PRN IV (DC) Insulin Human Lispro (HUMALOG) 0 PACU ONCE PRN S UBQ (DC) Labetalol HCl (LABETALOL HCL) 5 MG PACU Q10MIN P RN PRN IV (DC) Lactated Ringer's (LACTATED RINGERS) 1,000 ML .Q 24H IV (DC) Meperidine HCl (MEPERIDINE HCL/PF) 12.5 MG PACU ONCE PRN IV (DC) Morphine Sulfate (morphine SULFATE) 2 MG PACU Q1 0MIN PRN PRN IV (DC) Ondansetron HCl (ZOFRAN) 4 MG PACU ONCE PRN IV ( DC) Promethazine HCl (PHENERGAN) 25 MG PACU ONCE PRN PO (DC) Ropivacaine (NAROPIN 0.5% 150 MG/30mL) 150 MG DIR PRN LOCAL (DC) Tramadol HCl (ULTRAM) 50 MG PACU ONCE PO (DC) Dexamethasone Sodium Phosphate (DECADRON) 0 .STK -MED ONE .ROUTE (DC) Lidocaine HCl (XYLOCAINE) 0 .STK-MED ONE .ROUTE (DC) Ondansetron HCl (ZOFRAN) 0 .STK-MED ONE .ROUTE (DC) Fentanyl Citrate (SUBLIMAZE) 0 .STK-MED ONE .ROU TE (DC) Propofol (DIPRIVAN 200MG/20ML INJECTION) 20 ML . STK-MED ONE IV (DC) Acetaminophen (TYLENOL EXTRA STRENGTH) 0 .STK-ME D ONE .ROUTE (DC) Gabapentin (NEURONTIN) 0 .STK-MED ONE .ROUTE (DC ) Acetaminophen (TYLENOL EXTRA STRENGTH) 1,000 MG PREOP ONCALL PO (CKD) Gabapentin (NEURONTIN) 200 MG PREOP ONCALL PO (C KD) Lactated Ringer's (LACTATED RINGERS) 1,000 ML TN EOP ONCALL IV Lidocaine HCl (LIDOCAINE HCL/PF) 2 ML PREOP ONCA LL LOCAL Lidocaine HCl (LIDOCAINE HCL/PF) 2 ML PREOP ONCA LL LOCAL Sodium Chloride (SODIUM CHLORIDE 0.9%) 500 ML TN EOP ONCALL IV Sodium Chloride (SODIUM CHLORIDE 0.9%) 500 ML TN EOP ONCALL IV Sodium Chloride (SODIUM CHLORIDE 0.9%) 1,000 ML PREOP ONCALL IV Sodium Chloride (SODIUM CHLORIDE) 5 ML ASDIR PRN IV Sodium Chloride (SODIUM CHLORIDE) 10 ML ASDIR TN N IV Sodium Chloride (SODIUM CHLORIDE 0.9%) 250 ML DIR PRN IV Sodium Hypochlorite (DAKIN'S / STR (0.125%) 47 3ML) 1 APPLIC DAILY TOPICAL Acetaminophen (TYLENOL) 650 MG Q4H PRN PRN PO Dextrose/Water (DEXTROSE 10% IN WATER) 125 ML DIR PRN IV (CKD) Dextrose/Water (DEXTROSE 10% IN WATER) 250 ML DIR PRN IV (CKD) Glucagon (GLUCAGON) 1 MG ASDIR PRN IM Hydromorphone HCl (DILAUDID) 0.5 MG Q4H PRN PRN IV Gabapentin (NEURONTIN) 300 MG BEDTIME PO Piperacillin Sod/Tazobactam Sod (ZOSYN 3.375GM) 3.375 GM Q8H IV Sodium Chloride (SODIUM CHLORIDE 0.9% 100 ML) 1 00 ML Insulin Human Lispro (HUMALOG) 10 UNIT AC BK GRACE SUBQ Furosemide (LASIX) 40 MG DAILY PO Loratadine (CLARITIN) 10 MG DAILY PO Tramadol HCl (ULTRAM) 100 MG Q6H PRN PRN PO Amitriptyline HCl (ELAVIL) 25 MG BEDTIME PO Atorvastatin Calcium (LIPITOR) 80 MG DAILY@2100 PO Ursodiol (ActigalL) 300 MG C BK DIN PO Insulin Human Lispro (HUMALOG) 10 UNIT AC DIN MARR BQ Insulin Human Lispro (HUMALOG) 0 AC HS SUBQ Sterile Water (WATER FOR IRRIGATION) DRESSING CH SHERICE ASDIR PRN IRR Aspirin (ASPIRIN) 81 MG DAILY PO Citalopram Hydrobromide (CeleXA) 20 MG DAILY PO Metoprolol Tartrate (LOPRESSOR) 25 MG DAILY PO Tamsulosin HCl (Flomax 0.4 mg) 0.4 MG DAILY PO Ondansetron HCl (ZOFRAN) 4 MG Q6H PRN PRN IV I O: 24 hour I O ending at 0700: 01/06 0700 01/05 1900 Intake Total 150.00 Output Total 1100 300 Balance -950.00 -300 Intake, IV 150.00 Output, Urine 1100 300 Dietitian nutrition assessment The data set between the solid lines has been im ported from the dietitian's assessment. BMI Calculated: 26.8 Nutrition related diagnosis: Nutrition diagnosis details: Nutrition problem: Nutrition etiology: Nutrition signs and symptoms: Nutrition prescription: Dietitian name: Assessment completed: Physical Exam General appearance: alert, awake, oriented Wound/incision: Location: left foot Site condition: drainage, dressing saturated, e cchymosis, erythema, eschar, necrotic tissue, odor, left foot dp/pt 1/4 light touch decreased. wound anterior left ankle. seropurulent imelda inage. ulcer extensive from medial left hindfoot to medial left midfoot. into marr b q layer. no ability to invert the left foot. foot is deformed. it is severely everted. no lymphang itis. LE vascular pulse assess: 1+ L posterior tibialis, 1+ L dorsalis pedis Diagnosis, Assessment Plan Free Text A P: DM with neuropathy PVD wound left ankle ulcer left foot leukocytosis cellulitis left foot ankle fracture and dislocation IV abx culture left ankle and left foot--results discus sed with patient continue IV abx, ID on board pulse lavage wet to dry dressings left foot xray: no gas. no erosions. offloading boots. arterial studies--discussed with patient Covering for Dr. Wharton at 0901 RPT #:[id number] END OF REPORT 2022-01-05 [facility] 21:31:00-00:00 [facility] ([facility]) Brief Op Note REPORT#:[id number] REPORT STATUS: Signed DATE:01/05/22 TIME: 2130 PATIENT: PEDRO MCGREGOR UNIT #: [id number] ROOM/BED: [place] [address] : 54 AGE: 66 SEX: M ATTEND: Jean-Paul Ward od, MD ADM AUTHOR: Faby Wharton DPM * ALL edits or amendments must be made on the Material [email or web address] document * Op/Inv Proc Note - Brief Pre-procedure diagnosis: Ankle fracture left ankle Post-procedure diagnosis: same as pre procedure dx Procedures performed: Ankle reduction external fixation left ankle Primary Surgeon: FABY WHARTON Piano Bench Assembler(s): none Findings: See operative report Complications: none Estimated blood loss in ml's: 100CC Specimens removed/altered: SEE REPORT Dictation number: [id number] Electronically Signed by Faby Wharton DPM on 07/05 at 192 RPT #:[id number] END OF REPORT 2022-01-05 [facility] 21:31:00-00:00 [facility] ([facility]) DT Operative Note REPORT#:[id number] REPORT STATUS: Signed DATE:01/05/22 TIME: 2130 PATIENT: PEDRO MCGREGOR UNIT #: [id number] ROOM/BED: [place] [address] : 54 AGE: 66 SEX: M ATTEND: Jean-Paul Ward od, MD ADM AUTHOR: Faby Wharton DPM * ALL edits or amendments must be made on the Material [email or web address] document * Electronically Signed by Faby Wharton DPM on 07/05 at 192 RPT #:[id number] END OF REPORT 2022-01-05 [facility] 19:39:00-00:00 [facility] ([facility]) Urology Progress Note REPORT#:[id number] REPORT STATUS: Signed DATE:01/05/22 TIME: 1938 PATIENT: PEDRO MCGREGOR UNIT #: [id number] ROOM/BED: [facility] : 54 AGE: 66 SEX: M ATTEND: Jean-Paul Ward od, MD ADM AUTHOR: Dima Forbes LINK CUTTER * ALL edits or amendments must be made on the Material Mix/computer document * Subjective Chief complaint: URINARY RETENTION HPI: 66-year-old male with a history of hypertension, diabetes, hyperlipidemia, osteomyelitis, and CAD admitted for left foot in fection. He has associated generalized weakness, chills, and nausea , vomit ing. He has been on multiple rounds of antibiotics for this infection without relief. He denies chest pain, dyspnea, changes in his bowel/bladder movements, headache, blurred vision, or any other symptoms. Urologic al consultation was sought for the evaluation of the retention of urine and Bhardwaj catheter. H is Bhardwaj was recently changed . He was found to have positive blood cultures, urine cul ture is pending. UA was abnormal. WBC's are elevated 01/05/2022 - His bhardwaj was r emoved without our consultation . He failed to void overnight, Bhardwaj was instructed to be replaced , pending vascular provedures. Patient reports: no urinary pain, no abdominal p ain, no back pain Nursing reports: no urinary pain, no abdominal p ain, no back pain Objective General VS/I O: Last Documented: Result Date Time Pulse Ox 100 01/05 1446 B/P 135/61 01/05 1446 O2 Delivery Room air 01/05 1446 Temp 36.4 01/05 1446 Pulse 87 01/05 1446 Resp 18 01/05 1446 B/P Mean 86.6 01/05 1105 O2 Flow Rate 2 01/04 2100 24 hour I O ending at 0700: 01/05 0700 01/04 1900 Intake Total Output Total 1400 Balance -1400 Output, Urine 1400 PATIENT WEIGHT: Weight (lb): Weight (oz): Weight (kg): 100.000 Medications: Active Meds + DC'd Last 24 Hrs Fentanyl Citrate (SUBLIMAZE) 0 .STK-MED ONE .ROU TE (DC) Propofol (DIPRIVAN 200MG/20ML INJECTION) 20 ML . STK-MED ONE IV (DC) Acetaminophen (TYLENOL EXTRA STRENGTH) 0 .STK-ME D ONE .ROUTE (DC) Gabapentin (NEURONTIN) 0 .STK-MED ONE .ROUTE (D C) Acetaminophen (TYLENOL EXTRA STRENGTH) 1,000 MG PREOP ONCALL PO (CKD) Gabapentin (NEURONTIN) 200 MG PREOP ONCALL PO (C KD) Lactated Ringer's (LACTATED RINGERS) 1,000 ML TN EOP ONCALL IV Lidocaine HCl (LIDOCAINE HCL/PF) 2 ML PREOP ONCA LL LOCAL Lidocaine HCl (LIDOCAINE HCL/PF) 2 ML PREOP ONCA LL LOCAL Sodium Chloride (SODIUM CHLORIDE 0.9%) 500 ML TN EOP ONCALL IV Sodium Chloride (SODIUM CHLORIDE 0.9%) 500 ML TN EOP ONCALL IV Sodium Chloride (SODIUM CHLORIDE 0.9%) 1,000 ML PREOP ONCALL IV Sodium Chloride (SODIUM CHLORIDE) 5 ML ASDIR PRN IV Sodium Chloride (SODIUM CHLORIDE) 10 ML ASDIR TN N IV Sodium Chloride (SODIUM CHLORIDE 0.9%) 250 ML DIR PRN IV Sodium Hypochlorite (DAKIN'S 1/4 STR (0.125%) 47 3ML) 1 APPLIC DAILY TOPICAL Acetaminophen (TYLENOL) 650 MG Q4H PRN PRN PO Dextrose/Water (DEXTROSE 10% IN WATER) 125 ML DIR PRN IV (CKD) Dextrose/Water (DEXTROSE 10% IN WATER) 250 ML DIR PRN IV (CKD) Glucagon (GLUCAGON) 1 MG ASDIR PRN IM Hydromorphone HCl (DILAUDID) 0.5 MG Q4H PRN PRN IV Gabapentin (NEURONTIN) 300 MG BEDTIME PO Piperacillin Sod/Tazobactam Sod (ZOSYN 3.375GM) 3.375 GM Q8H IV Sodium Chloride (SODIUM CHLORIDE 0.9% 100 ML) 1 00 ML Insulin Human Lispro (HUMALOG) 10 UNIT AC BK GRACE SUBQ Furosemide (LASIX) 40 MG DAILY PO Loratadine (CLARITIN) 10 MG DAILY PO Tramadol HCl (ULTRAM) 100 MG Q6H PRN PRN PO Amitriptyline HCl (ELAVIL) 25 MG BEDTIME PO Atorvastatin Calcium (LIPITOR) 80 MG DAILY@2100 PO Ursodiol (ActigalL) 300 MG C BK DIN PO Insulin Human Lispro (HUMALOG) 10 UNIT AC DIN MARR BQ Insulin Human Lispro (HUMALOG) 0 AC HS SUBQ Sterile Water (WATER FOR IRRIGATION) DRESSING CH SHERICE ASDIR PRN IRR Aspirin (ASPIRIN) 81 MG DAILY PO Citalopram Hydrobromide (CeleXA) 20 MG DAILY PO Metoprolol Tartrate (LOPRESSOR) 25 MG DAILY PO Tamsulosin HCl (Flomax 0.4 mg) 0.4 MG DAILY PO Ondansetron HCl (ZOFRAN) 4 MG Q6H PRN PRN IV Dietitian nutrition assessment The data set between the solid lines has been im ported from the dietitian's assessment. BMI Calculated: 26.8 Nutrition related diagnosis: Nutrition diagnosis details: Nutrition problem: Nutrition etiology: Nutrition signs and symptoms: Nutrition prescription: Dietitian name: Assessment completed: Physical Exam General appearance: alert, awake, oriented Head/Eyes: atraumatic, clear cornea, EOMI, normo cephalic, normal conjunctiva/ sclera Neck: full range of motion, non-tender, no bruit /NL carotids Cardiovascular: normal capillary refill, regular rate rhythm, normal heart sounds, BP/pulses equal bilat. Respiratory: clear to auscultation, no distress, no tenderness, aerating well Abdomen: soft, non-tender, no guarding Genitourinary: Genitourinary: urinary catheter in place, good urine output Extremities: moves all, no edema, normal capilla ry refill, normal range of motion Skin: dry, intact, no gross abnormalities, tra l color, L foot wound wrapped Results Findings/Data: Laboratory Tests: 01/05 01/05 01/05 01/05 1905 1513 1103 0742 Chemistry POC Glucose (70 - 110 MG/DL) 196 H 225 H 262 H 256 H 01/05 01/04 0400 2036 Chemistry Sodium (134 - 147 mEq/L) 132 L Potassium (3.4 - 5.0 mEq/L) 4.1 Chloride (100 - 108 mEq/L) 95 L Carbon Dioxide (21 - 33 mEq/l) 29 Anion Gap (0 - 20) 13 BUN (7 - 18 mg/dL) 12 Creatinine (0.6 - 1.3 mg/dL) 1.0 Glomerular Filtr Rate (80 - 90) 82.5 Glucose (70 - 110 mg/dL) 221 H POC Glucose (70 - 110 MG/DL) 237 H Calcium (8.0 - 10.5 mg/dL) 9.0 Hematology WBC (4.5 - 11.0 x10 3/uL) 15.0 H RBC (4.00 - 5.60 x10 6/uL) 3.48 L Hgb (12.5 - 16.9 g/dL) 10.1 L Hct (37.5 - 50.7 %) 31.6 L MCV (81.0 - 99.0 fL) 90.8 MCH (27.0 - 33.0 pg) 29.0 MCHC (33.0 - 37.0 g/dL) 32.0 L RDW (11.5 - 14.5 %) 15.6 H Plt Count (150 - 400 x10 3/uL) 720 H MPV (7.0 - 9.0 fL) 10.8 H Neut % (Auto) (56.0 - 77.0 %) 65.1 Lymph % (Auto) (14.0 - 32.0 %) 21.9 Kern % (Auto) (4.8 - 9.0 %) 10.4 H Eos % (Auto) (0.3 - 3.7 %) 1.8 Baso % (Auto) (0.0 - 2.0 %) 0.3 Neut # (Auto) (2.0 - 7.6 x10 3/uL) 9.76 H Lymph # (Auto) (1.0 - 3.8 x10 3/uL) 3.29 Kern # (Auto) (0.1 - 0.8 x10 3/uL) 1.56 H Eos # (Auto) (0.0 - 0.2 x10 3/uL) 0.27 H Baso # (Auto) (0.0 - 0.2 x10 3/uL) 0.05 Abs Immat Gran (auto) (0.00 - 0.03 x10 3/uL) 0. 08 H Add Manual Diff NO Immature Gran % (0.0 - 2.0 %) 0.5 Nucleated RBC % (0 - 0 %) 0.0 Nucleated RBCs # (Man) (0.0 - 0.1 x10 3/uL) 0.0 0 Results: labs reviewed Diagnosis, Assessment Plan Free Text A P: Assessment BPH Urinary retention Bhardwaj in situ Bacteremia Leukocytosis Proteinuria Microhematuria WISAM on CKD Plan Keep Bhardwaj Urine culture negative Renal u/s WNL Continue Flomax Voiding trials once clinically improved outpatient cystoscopy and urodynamics Monitor for hematuria We will follow Heme and lytes per primary team ABX per ID Thank you for this kind consult Electronically Signed by Dima Forbes LINK CUTTER on at 1942 RPT #:[id number] END OF REPORT 2022-01-05 [facility] 16:01:00-00:00 [facility] ([facility]) Pain Management Progress Note REPORT#:[id number] REPORT STATUS: Signed DATE:01/05/22 TIME: 1601 PATIENT: PEDRO MCGREGOR UNIT #: [id number] ROOM/BED: [place] [address] : 54 AGE: 66 SEX: M ATTEND: Jean-Paul Ward od, MD ADM AUTHOR: Betty Tejeda APRN * ALL edits or amendments must be made on the Material Mix/computer document * Subjective Chief Complaint: Left foot pain Comments: Patient seen and examined. Pain remains well-con trolled on current regimen. Denies n/v/drowsiness. Review of Systems Free Text ROS Notes Free Text ROS Notes: 12 point ROS reviewed and negative unless stated otherwise Objective General VS/I O: Vital Signs Date Temp Pulse Resp B/P B/P Mean Pulse Ox FiO2 01/04-01/05 36.4-37.4 87-114 16-18 115-147/60-74 78.4-94.5 93-100 Last Documented: Result Date Time Pulse Ox 100 01/05 144 B/P 135/61 01/05 1446 O2 Delivery Room air 01/05 144 Temp 36.4 01/05 1446 Pulse 87 01/05 1446 Resp 18 01/05 1446 B/P Mean 86.6 01/05 1105 O2 Flow Rate 2 01/04 2100 24 hour I O ending at 0700: 01/05 0700 01/04 1900 Intake Total Output Total 1400 Balance -1400 Output, Urine 1400 PATIENT WEIGHT: Weight (lb): Weight (oz): Weight (kg): 100.000 Medications: Active Meds + DC'd Last 24 Hrs Acetaminophen (TYLENOL EXTRA STRENGTH) 0 .STK-ME D ONE .ROUTE (DC) Gabapentin (NEURONTIN) 0 .STK-MED ONE .ROUTE (D C) Acetaminophen (TYLENOL EXTRA STRENGTH) 1,000 MG PREOP ONCALL PO (CKD) Gabapentin (NEURONTIN) 200 MG PREOP ONCALL PO (C KD) Lactated Ringer's (LACTATED RINGERS) 1,000 ML TN EOP ONCALL IV Lidocaine HCl (LIDOCAINE HCL/PF) 2 ML PREOP ONCA LL LOCAL Lidocaine HCl (LIDOCAINE HCL/PF) 2 ML PREOP ONCA LL LOCAL Sodium Chloride (SODIUM CHLORIDE 0.9%) 500 ML TN EOP ONCALL IV Sodium Chloride (SODIUM CHLORIDE 0.9%) 500 ML TN EOP ONCALL IV Sodium Chloride (SODIUM CHLORIDE 0.9%) 1,000 ML PREOP ONCALL IV Sodium Chloride (SODIUM CHLORIDE) 5 ML ASDIR PRN IV Sodium Chloride (SODIUM CHLORIDE) 10 ML ASDIR TN N IV Sodium Chloride (SODIUM CHLORIDE 0.9%) 250 ML DIR PRN IV Sodium Hypochlorite (DAKIN'S 1/4 STR (0.125%) 47 3ML) 1 APPLIC DAILY TOPICAL Acetaminophen (TYLENOL) 650 MG Q4H PRN PRN PO Dextrose/Water (DEXTROSE 10% IN WATER) 125 ML DIR PRN IV (CKD) Dextrose/Water (DEXTROSE 10% IN WATER) 250 ML DIR PRN IV (CKD) Glucagon (GLUCAGON) 1 MG ASDIR PRN IM Hydromorphone HCl (DILAUDID) 0.5 MG Q4H PRN PRN IV Gabapentin (NEURONTIN) 300 MG BEDTIME PO Piperacillin Sod/Tazobactam Sod (ZOSYN 3.375GM) 3.375 GM Q8H IV Sodium Chloride (SODIUM CHLORIDE 0.9% 100 ML) 1 00 ML Insulin Human Lispro (HUMALOG) 10 UNIT AC BK GRACE SUBQ Furosemide (LASIX) 40 MG DAILY PO Loratadine (CLARITIN) 10 MG DAILY PO Tramadol HCl (ULTRAM) 100 MG Q6H PRN PRN PO Amitriptyline HCl (ELAVIL) 25 MG BEDTIME PO Atorvastatin Calcium (LIPITOR) 80 MG DAILY@2100 PO Ursodiol (ActigalL) 300 MG C BK DIN PO Insulin Human Lispro (HUMALOG) 10 UNIT AC DIN MARR BQ Insulin Human Lispro (HUMALOG) 0 AC HS SUBQ Sterile Water (WATER FOR IRRIGATION) DRESSING CH SHERICE ASDIR PRN IRR Aspirin (ASPIRIN) 81 MG DAILY PO Citalopram Hydrobromide (CeleXA) 20 MG DAILY PO Metoprolol Tartrate (LOPRESSOR) 25 MG DAILY PO Tamsulosin HCl (Flomax 0.4 mg) 0.4 MG DAILY PO Ondansetron HCl (ZOFRAN) 4 MG Q6H PRN PRN IV Physical Exam General appearance: alert, awake, oriented Head/Eyes: atraumatic, EOMI, normocephalic ENT: normal nose, normal sinus, moist mucosal me mbranes Neck: no masses or swelling, supple/no meningism us Cardiovascular: normal capillary refill, regular rate rhythm Respiratory: no distress, aerating well, symmetr ic expansion Abdomen: non-tender, no rebound, no distention Extremities: no edema, no clubbing, no c yanosis, decreased range of motion (of LLE 2/2 pain) Neuro/METAL WELDER: alert, oriented X 3, normal speech Skin: dry, intact, warm Results Findings/data: Laboratory Tests: 01/05 01/05 01/05 01/05 01/04 1513 1103 0742 0400 2036 Chemistry Sodium (134 - 147 mEq/L) 132 L Potassium (3.4 - 5.0 mEq/L) 4.1 Chloride (100 - 108 mEq/L) 95 L Carbon Dioxide (21 - 33 mEq/l) 29 Anion Gap (0 - 20) 13 BUN (7 - 18 mg/dL) 12 Creatinine (0.6 - 1.3 mg/dL) 1.0 Glomerular Filtr Rate (80 - 90) 82.5 Glucose (70 - 110 mg/dL) 221 H POC Glucose (70 - 110 MG/DL) 225 H 262 H 256 H 237 H Calcium (8.0 - 10.5 mg/dL) 9.0 Hematology WBC (4.5 - 11.0 x10 3/uL) 15.0 H RBC (4.00 - 5.60 x10 6/uL) 3.48 L Hgb (12.5 - 16.9 g/dL) 10.1 L Hct (37.5 - 50.7 %) 31.6 L MCV (81.0 - 99.0 fL) 90.8 MCH (27.0 - 33.0 pg) 29.0 MCHC (33.0 - 37.0 g/dL) 32.0 L RDW (11.5 - 14.5 %) 15.6 H Plt Count (150 - 400 x10 3/uL) 720 H MPV (7.0 - 9.0 fL) 10.8 H Neut % (Auto) (56.0 - 77.0 %) 65.1 Lymph % (Auto) (14.0 - 32.0 %) 21.9 Kern % (Auto) (4.8 - 9.0 %) 10.4 H Eos % (Auto) (0.3 - 3.7 %) 1.8 Baso % (Auto) (0.0 - 2.0 %) 0.3 Neut # (Auto) (2.0 - 7.6 x10 3/uL) 9.76 H Lymph # (Auto) (1.0 - 3.8 x10 3/uL) 3.29 Kern # (Auto) (0.1 - 0.8 x10 3/uL) 1.56 H Eos # (Auto) (0.0 - 0.2 x10 3/uL) 0.27 H Baso # (Auto) (0.0 - 0.2 x10 3/uL) 0.05 Abs Immat Gran (auto) (0.00 - 0.03 0.08 H x10 3/uL) Add Manual Diff NO Immature Gran % (0.0 - 2.0 %) 0.5 Nucleated RBC % (0 - 0 %) 0.0 Nucleated RBCs # (Man) (0.0 - 0.1 0.00 x10 3/uL) 01/04 1731 Chemistry POC Glucose (70 - 110 MG/DL) 220 H Results: labs reviewed, vital signs stable Diagnosis, Assessment Plan Free text A P: Pedro Mcgregor is a 66yo male with PMH of DM II, HTN, CAD, HLD, and diabetic ulcers that was admitted with a left foot infection. 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 Dilaudid IV 0.5mg Q4hrs PRN severe pain Tramadol 100mg PO Q6hrs PRN moderate pain Gabapentin 300mg PO QHS for neuropathic pain Pending reduction of fracture with external fixa tion on 01/05/22 Left foot infection - abx, podiatry following, p ending left BKA or LLE arteriogram on 01/05/22 Bacteremia - s/p YOLA on 01/04/22 DM - SSI HLD - Lipitor HTN - Metoprolol BPH - Flomax CAD - ASA 81mg DC planning to SNF Please hold all narcotics for SBP < 90mm hg, Respiratory rate <8bpm, or altered mentation. Please call with any questions or concerns Thank you for allowing me to participate in this patient's care. Plan of care discussed with Dr. Posada and Dr. Felipe kumar, patient, primary team, and RN. All questions answered. Patient agrees w ith above plan of care. All diagnostic studies, ASSISTANT CHIEF TRAIN DISPATCHER, and labs in the pas t 24 hours reviewed and interpreted with Dr. Posada and Dr. Carter. [place] ASSISTANT CHIEF TRAIN DISPATCHER verified 12/31/21 at 9086 Electronically Signed by Kanwal Carter DO on 0 02/16/22 at 0546 RPT #:[id number] END OF REPORT 2022-01-05 [facility] 10:50:00-00:00 [facility] ([facility]) Hospitalist Progress Note REPORT#:[id number] REPORT STATUS: Signed DATE:01/05/22 TIME: 1050 PATIENT: PEDRO MCGREGOR UNIT #: [id number] ROOM/BED: [place] [address] : 54 AGE: 66 SEX: M ATTEND: Jean-Paul Ward od, MD ADM AUTHOR: Lexa Samson LINK CUTTER * ALL edits or amendments must be made on the Material Mix/computer document * Lexa Samson 01/05/22 1050: Subjective Chief complaint: NPO for reduction of fracture with external fixa tion. He had a YOLA. He is little lethargic. His Left LE and foot pain controlled. No CP, fever, chills. No N/v/D. BP and HR stable. Bhardwaj in placed. Review of Systems Constitutional: Reports: fatigue, generalized weakness. Eyes: Denies: discharge, itching, eye pain. Respiratory: Denies: hemoptysis, non productive cough, pleuri sy, pneumonia, SOB. Cardiovascular: Denies: chest pain, orthopnea, palpitations. GI: Denies: anorexia, GERD, hiatal hernia, nausea. : Denies: flank pain, hematuria, penile discharge, testicular pain. Heme: Denies: adenopathy, bruising. Neuro: Denies: change in LOC, dizziness, headache, ligh theaded, spinning sensation. Objective General VS/I O: Vital Signs: Date Time Temp Pulse Resp B/P B/P Pulse O2 O2 F low FiO2 Mean Ox Delivery Rate 01/05 0744 114 16 147/68 94.5 95 01/05 0416 36.7 104 17 121/74 89.7 96 01/04 2349 37.4 90 16 115/60 78.4 94 01/04 2100 Nasal 2 cannula 01/04 2035 37.3 87 16 115/63 80.7 93 01/04 1245 2 01/04 1117 91 16 107/69 81.3 98 24 hour I O ending at 0700: 01/05 0700 01/04 1900 Intake Total Output Total 1400 Balance -1400 Output, Urine 1400 PATIENT WEIGHT: Weight (lb): Weight (oz): Weight (kg): 100.000 Medications: Active Meds + DC'd Last 24 Hrs Acetaminophen (TYLENOL EXTRA STRENGTH) 1,000 MG PREOP ONCALL PO (CKD) Gabapentin (NEURONTIN) 200 MG PREOP ONCALL PO (C KD) Lactated Ringer's (LACTATED RINGERS) 1,000 ML TN EOP ONCALL IV Lidocaine HCl (LIDOCAINE HCL/PF) 2 ML PREOP ONCA LL LOCAL Lidocaine HCl (LIDOCAINE HCL/PF) 2 ML PREOP ONCA LL LOCAL Sodium Chloride (SODIUM CHLORIDE 0.9%) 500 ML TN EOP ONCALL IV Sodium Chloride (SODIUM CHLORIDE 0.9%) 500 ML TN EOP ONCALL IV Sodium Chloride (SODIUM CHLORIDE 0.9%) 1,000 ML PREOP ONCALL IV Sodium Chloride (SODIUM CHLORIDE) 5 ML ASDIR PRN IV Sodium Chloride (SODIUM CHLORIDE) 10 ML ASDIR TN N IV Sodium Chloride (SODIUM CHLORIDE 0.9%) 250 ML DIR PRN IV Propofol (DIPRIVAN 200MG/20ML INJECTION) 20 ML . STK-MED ONE IV (DC) Sodium Hypochlorite (DAKIN'S 1/4 STR (0.125%) 47 3ML) 1 APPLIC DAILY TOPICAL Benzocaine/Butamben/Tetracaine HCl (CETACAINE) 1 APPLIC ASDIR PRN MM (DC ) Flumazenil (ROMAZICON) 0.2 MG ASDIR PRN IV (DC) Midazolam HCl (VERSED) 2 MG ASDIR PRN IV (DC) Naloxone HCl (NARCAN) 0.4 MG ASDIR PRN IV (DC) Acetaminophen (TYLENOL) 650 MG Q4H PRN PRN PO Dextrose/Water (DEXTROSE 10% IN WATER) 125 ML DIR PRN IV (CKD) Dextrose/Water (DEXTROSE 10% IN WATER) 250 ML DIR PRN IV (CKD) Glucagon (GLUCAGON) 1 MG ASDIR PRN IM Hydromorphone HCl (DILAUDID) 0.5 MG Q4H PRN PRN IV Gabapentin (NEURONTIN) 300 MG BEDTIME PO Piperacillin Sod/Tazobactam Sod (ZOSYN 3.375GM) 3.375 GM Q8H IV Sodium Chloride (SODIUM CHLORIDE 0.9% 100 ML) 1 00 ML Insulin Human Lispro (HUMALOG) 10 UNIT AC BK GRACE SUBQ Furosemide (LASIX) 40 MG DAILY PO Loratadine (CLARITIN) 10 MG DAILY PO Tramadol HCl (ULTRAM) 100 MG Q6H PRN PRN PO Amitriptyline HCl (ELAVIL) 25 MG BEDTIME PO Atorvastatin Calcium (LIPITOR) 80 MG DAILY@2100 PO Ursodiol (ActigalL) 300 MG C BK DIN PO Insulin Human Lispro (HUMALOG) 10 UNIT AC DIN MARR BQ Insulin Human Lispro (HUMALOG) 0 AC HS SUBQ Sterile Water (WATER FOR IRRIGATION) DRESSING CH SHERICE ASDIR PRN IRR Aspirin (ASPIRIN) 81 MG DAILY PO Citalopram Hydrobromide (CeleXA) 20 MG DAILY PO Metoprolol Tartrate (LOPRESSOR) 25 MG DAILY PO Tamsulosin HCl (Flomax 0.4 mg) 0.4 MG DAILY PO Ondansetron HCl (ZOFRAN) 4 MG Q6H PRN PRN IV Dietitian nutrition assessment The data set between the solid lines has been im ported from the dietitian's assessment. BMI Calculated: 26.8 Nutrition related diagnosis: Nutrition diagnosis details: Nutrition problem: Nutrition etiology: Nutrition signs and symptoms: Nutrition prescription: Dietitian name: Assessment completed: Physical Exam General appearance: alert, awake, oriented Head/Eyes: atraumatic, EOMI ENT: moist mucosal membranes Neck: full range of motion, normal thyroid Cardiovascular: normal heart sounds, regular rat e rhythm Respiratory: aerating well, clear to auscultatio n, symmetric expansion Abdomen: non-tender, normal bowel sounds, soft Genitourinary: urinary catheter Extremities: no clubbing, no cyanosis, left foot : drssing C/D/I Neuro/METAL WELDER: alert, oriented X 3 Psychiatry: normal affect, normal mood Results Findings/Data: Laboratory Tests 01/05 01/05 01/04 01/04 01/04 0742 0400 2036 1731 1116 Chemistry Sodium (134 - 147 mEq/L) 132 L Potassium (3.4 - 5.0 mEq/L) 4.1 Chloride (100 - 108 mEq/L) 95 L Carbon Dioxide (21 - 33 mEq/l) 29 Anion Gap (0 - 20) 13 BUN (7 - 18 mg/dL) 12 Creatinine (0.6 - 1.3 mg/dL) 1.0 Glomerular Filtr Rate (80 - 90) 82.5 Glucose (70 - 110 mg/dL) 221 H POC Glucose (70 - 110 MG/DL) 256 H 237 H 220 H 197 H Calcium (8.0 - 10.5 mg/dL) 9.0 Laboratory Tests 01/05 0400 Hematology WBC (4.5 - 11.0 x10 3/uL) 15.0 H RBC (4.00 - 5.60 x10 6/uL) 3.48 L Hgb (12.5 - 16.9 g/dL) 10.1 L Hct (37.5 - 50.7 %) 31.6 L MCV (81.0 - 99.0 fL) 90.8 MCH (27.0 - 33.0 pg) 29.0 MCHC (33.0 - 37.0 g/dL) 32.0 L RDW (11.5 - 14.5 %) 15.6 H Plt Count (150 - 400 x10 3/uL) 720 H MPV (7.0 - 9.0 fL) 10.8 H Neut % (Auto) (56.0 - 77.0 %) 65.1 Lymph % (Auto) (14.0 - 32.0 %) 21.9 Kern % (Auto) (4.8 - 9.0 %) 10.4 H Eos % (Auto) (0.3 - 3.7 %) 1.8 Baso % (Auto) (0.0 - 2.0 %) 0.3 Neut # (Auto) (2.0 - 7.6 x10 3/uL) 9.76 H Lymph # (Auto) (1.0 - 3.8 x10 3/uL) 3.29 Kern # (Auto) (0.1 - 0.8 x10 3/uL) 1.56 H Eos # (Auto) (0.0 - 0.2 x10 3/uL) 0.27 H Baso # (Auto) (0.0 - 0.2 x10 3/uL) 0.05 Abs Immat Gran (auto) (0.00 - 0.03 x10 3/uL) 0. 08 H Add Manual Diff NO Immature Gran % (0.0 - 2.0 %) 0.5 Nucleated RBC % (0 - 0 %) 0.0 Nucleated RBCs # (Man) (0.0 - 0.1 x10 3/uL) 0.0 0 Results: labs reviewed, vital signs reviewed, vi maida signs stable, current med profile rev'd Treatment Prophylaxis Treatment Prophylaxis Oxygen: room air Diagnosis, Assessment Plan Code status: full code Plan discussed with: patient, admitting physicia n, consultants, nurse Free Text DxA P Notes Free text DxA P notes: Assessment and PlaN; - Bacteremia , recurrent Enterococcal Faecalis b acteremia. - Sepsis POA due to left foot OM. - Left Foot OM failed Outpt treatment. - Non healing wound of Left foot. - Hyponatremia - Left foot pain due to OM. - HX of HTN, HLD, DM type II, Liver disa se, Heart disease, diabetes neuropathy - Over weight 26.8. - On bhardwaj 2/2 non weight bearing of foot - UA positive for LE, UTI - Hypomagnesemia-replaced - PVD Plan: Floor. NPO for reduction of fracture with external fixa tion. s/p YOLA today was negative for endocarditis. CM for SNF placement. PAIN CONTROL IV abx per ID f/u Cardiology Vascular sx CONSULT Appreciated Podiatry for Left foot wound. ID consult appreciated for left foot OM. Pain meds. Antiemetics. Glycemic control, accu check AC HS, ISS. Diabetic diet. Follow labs and replace as needed. Continue home meds. Monitor. Chelo Ward 01/05/22 1741: Attestations Physician Attestation Agree w/findings plan: Patient seen and examined and I agree with the f indings and plan as discussed with and documented by Lexa Benz NP Electronically Signed by Lexa Samson NP on at 1053 at 1741 RPT #:[id number] END OF REPORT 2022-01-05 [facility] 08:42:00-00:00 [facility] ([facility]) Infectious Dis. Progress Note REPORT#:[id number] REPORT STATUS: Signed DATE:01/05/22 TIME: 841 PATIENT: PEDRO MCGREGOR UNIT #: [id number] ROOM/BED: [place] [address] : 54 AGE: 66 SEX: M ATTEND: Jean-Paul Ward od, MD ADM AUTHOR: Enrrique King MD * ALL edits or amendments must be made on the Material Mix/computer document * Subjective Chief complaint: LEFT FOOT INFECTION HPI: This is a 66-year-old male p atient with history of peripheral vascular disease, type 2 diabetes and neuropat hy who has been admitted for a left foot infection. He was admitted earlier this month to [facility] and was found to have a complicated gas-forming polymicrobial in fection of the left leg including osteomyelitis and septic arthritis of the left foot and ankle. His wound cultures grew Ente rococcus faecalis B fragilis, and gram-negative rods including Proteus. He also had Enterococcus faecalis bacteremia in November. He was treated multiple times with appropriate a ntibiotics but was thought to lack source control and was recommended BKA at t hat time. His blood cultures are now again growing Enteroc occus species. Patient reports: No: abdominal pain, back blake n, cough, diarrhea, fever, headache, pain, shortness of breath. Objective Physical Exam Wound/incision: Location: Left foot and ankle ulcers dressing saturated Head/Eyes: atraumatic, clear cornea ENT: moist mucosal membranes, normal dentition Neck: full range of motion, non-tender Cardiovascular: normal heart sounds, regular rat e rhythm Respiratory: clear to auscultation, aerating wel l Abdomen: non-tender, normal bowel sounds Results Findings/Data: Laboratory Tests 01/05 01/05 01/04 01/04 01/04 0742 0400 2036 1731 1116 Chemistry Sodium (134 - 147 mEq/L) 132 L Potassium (3.4 - 5.0 mEq/L) 4.1 Chloride (100 - 108 mEq/L) 95 L Carbon Dioxide (21 - 33 mEq/l) 29 Anion Gap (0 - 20) 13 BUN (7 - 18 mg/dL) 12 Creatinine (0.6 - 1.3 mg/dL) 1.0 Glomerular Filtr Rate (80 - 90) 82.5 Glucose (70 - 110 mg/dL) 221 H POC Glucose (70 - 110 MG/DL) 256 H 237 H 220 H 197 H Calcium (8.0 - 10.5 mg/dL) 9.0 Laboratory Tests 01/05 0400 Hematology WBC (4.5 - 11.0 x10 3/uL) 15.0 H RBC (4.00 - 5.60 x10 6/uL) 3.48 L Hgb (12.5 - 16.9 g/dL) 10.1 L Hct (37.5 - 50.7 %) 31.6 L MCV (81.0 - 99.0 fL) 90.8 MCH (27.0 - 33.0 pg) 29.0 MCHC (33.0 - 37.0 g/dL) 32.0 L RDW (11.5 - 14.5 %) 15.6 H Plt Count (150 - 400 x10 3/uL) 720 H MPV (7.0 - 9.0 fL) 10.8 H Neut % (Auto) (56.0 - 77.0 %) 65.1 Lymph % (Auto) (14.0 - 32.0 %) 21.9 Kern % (Auto) (4.8 - 9.0 %) 10.4 H Eos % (Auto) (0.3 - 3.7 %) 1.8 Baso % (Auto) (0.0 - 2.0 %) 0.3 Neut # (Auto) (2.0 - 7.6 x10 3/uL) 9.76 H Lymph # (Auto) (1.0 - 3.8 x10 3/uL) 3.29 Kern # (Auto) (0.1 - 0.8 x10 3/uL) 1.56 H Eos # (Auto) (0.0 - 0.2 x10 3/uL) 0.27 H Baso # (Auto) (0.0 - 0.2 x10 3/uL) 0.05 Abs Immat Gran (auto) (0.00 - 0.03 x10 3/uL) 0 .08 H Add Manual Diff NO Immature Gran % (0.0 - 2.0 %) 0.5 Nucleated RBC % (0 - 0 %) 0.0 Nucleated RBCs # (Man) (0.0 - 0.1 x10 3/uL) 0.0 0 Diagnosis, Assessment Plan Free Text A P: 1-Recurrent Enterococcus faecalis bacteremia hig h suspicion for endovascular infection including endocarditis 2-Osteomyelitis and septic arthritis of the left foot and ankle 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 4-Peripheral vascular disease Recommendations Zosyn monotherapy given microbiology Cardiology consult for YOLA Repeat blood cultures until negative Vascular surgery consultation for possib le angiogram and correction of disease 01/03 Continue antibiotics Await debridement by podiatry Await vascular intervention Await YOLA 01/04 For angiogram tommorow Continue Zosyn 01/05 The YOLA is negative Angiogram is pending Surgical intervention is pending We will arrange long-term antibiotics after proc edures are completed Electronically Signed by Enrrique King MD on at 0844 RPT #:[id number] END OF REPORT 2022-01-04 [facility] 20:11:00-00:00 [facility] Podiatry Progress Note REPORT#:[id number] REPORT STATUS: Signed DATE:01/04/22 TIME: 2010 PATIENT: PEDRO MCGREGOR UNIT #: [id number] ROOM[facility]BED: [facility] : 53 AGE: 66 SEX: M ATTEND: Jean-Paul Ward od, MD ADM AUTHOR: Faby Wharton DPM * ALL edits or amendments must be made on the el [employer]/computer document * Subjective Chief complaint: left foot infection HPI: FOOT ULCER Objective General VS: Last Documented: Result Date Time O2 Flow Rate 2 01/04 1245 Pulse Ox 98 01/04 1117 B/P 107/69 01/04 1117 B/P Mean 81.3 01/04 1117 Pulse 91 01/04 1117 Resp 16 01/04 111 Temp 37.3 01/04 0433 O2 Delivery Room air 01/03 1637 PATIENT WEIGHT: Weight (lb): Weight (oz): Weight (kg): 100.000 Medications: Active Meds + DC'd Last 24 Hrs Propofol (DIPRIVAN 200MG/20ML INJECTION) 20 ML . STK-MED ONE IV (DC) Sodium Hypochlorite (DAKIN'S 1/4 STR (0.125%) 47 3ML) 1 APPLIC DAILY TOPICAL Benzocaine/Butamben/Tetracaine HCl (CETACAINE) 1 APPLIC ASDIR PRN MM (DC ) Flumazenil (ROMAZICON) 0.2 MG ASDIR PRN IV (DC) Midazolam HCl (VERSED) 2 MG ASDIR PRN IV (DC) Naloxone HCl (NARCAN) 0.4 MG ASDIR PRN IV (DC) Acetaminophen (TYLENOL) 650 MG Q4H PRN PRN PO Dextrose/Water (DEXTROSE 10% IN WATER) 125 ML DIR PRN IV (CKD) Dextrose/Water (DEXTROSE 10% IN WATER) 250 ML DIR PRN IV (CKD) Glucagon (GLUCAGON) 1 MG ASDIR PRN IM Hydromorphone HCl (DILAUDID) 0.5 MG Q4H PRN PRN IV Gabapentin (NEURONTIN) 300 MG BEDTIME PO Piperacillin Sod/Tazobactam Sod (ZOSYN 3.375GM) 3.375 GM Q8H IV Sodium Chloride (SODIUM CHLORIDE 0.9% 100 ML) 1 00 ML Insulin Human Lispro (HUMALOG) 10 UNIT AC BK GRACE SUBQ Furosemide (LASIX) 40 MG DAILY PO Loratadine (CLARITIN) 10 MG DAILY PO Tramadol HCl (ULTRAM) 100 MG Q6H PRN PRN PO Amitriptyline HCl (ELAVIL) 25 MG BEDTIME PO Atorvastatin Calcium (LIPITOR) 80 MG DAILY@2100 PO Ursodiol (ActigalL) 300 MG C BK DIN PO Insulin Human Lispro (HUMALOG) 10 UNIT AC DIN MARR BQ Insulin Human Lispro (HUMALOG) 0 AC HS SUBQ Sterile Water (WATER FOR IRRIGATION) DRESSING CH SHERICE ASDIR PRN IRR Aspirin (ASPIRIN) 81 MG DAILY PO Citalopram Hydrobromide (CeleXA) 20 MG DAILY PO Metoprolol Tartrate (LOPRESSOR) 25 MG DAILY PO Tamsulosin HCl (Flomax 0.4 mg) 0.4 MG DAILY PO Ondansetron HCl (ZOFRAN) 4 MG Q6H PRN PRN IV I O: 24 hour I O ending at 0700: 01/04 0700 01/03 1900 Intake Total Output Total 1200 Balance -1200 Output, Urine 1200 Dietitian nutrition assessment The data set between the solid lines has been im ported from the dietitian's assessment. BMI Calculated: 26.8 Nutrition related diagnosis: Nutrition diagnosis details: Nutrition problem: Nutrition etiology: Nutrition signs and symptoms: Nutrition prescription: Dietitian name: Assessment completed: Physical Exam Wound/incision: Location: left foot Site condition: drainage, dressing saturated, e cchymosis, erythema, eschar, necrotic tissue, odor, left foot dp/pt 1/4 light touch decreased. wound anterior left ankle. seropurulent imelda inage. ulcer extensive from medial left hindfoot to medial left midfoot. into marr b q layer. no ability to invert the left foot. foot is deformed. it is severely everted. no lymphang itis. LE vascular pulse assess: 1+ L posterior tibialis, 1+ L dorsalis pedis Results Findings/Data: Laboratory Tests: 01/04 01/04 01/04 01/04 1731 1116 0728 0415 Chemistry Sodium (134 - 147 mEq/L) 132 L Potassium (3.4 - 5.0 mEq/L) 4.2 Chloride (100 - 108 mEq/L) 94 L Carbon Dioxide (21 - 33 mEq/l) 30 Anion Gap (0 - 20) 13 BUN (7 - 18 mg/dL) 14 Creatinine (0.6 - 1.3 mg/dL) 1.3 Glomerular Filtr Rate (80 - 90) 60.2 L Glucose (70 - 110 mg/dL) 183 H POC Glucose (70 - 110 MG/DL) 220 H 197 H 183 H Calcium (8.0 - 10.5 mg/dL) 9.2 Coagulation INR (0.8 - 1.2) 1.4 H PTT (Cheri) (25.0 - 39.5 Seconds) 32.6 PT Patient/Control Mix (9.3 - 12.9 SECONDS) 15. 9 H Hematology WBC (4.5 - 11.0 x10 3/uL) 11.8 H RBC (4.00 - 5.60 x10 6/uL) 3.34 L Hgb (12.5 - 16.9 g/dL) 9.6 L Hct (37.5 - 50.7 %) 30.1 L MCV (81.0 - 99.0 fL) 90.1 MCH (27.0 - 33.0 pg) 28.7 MCHC (33.0 - 37.0 g/dL) 31.9 L RDW (11.5 - 14.5 %) 15.5 H Plt Count (150 - 400 x10 3/uL) 701 H MPV (7.0 - 9.0 fL) 10.5 H Neut % (Auto) (56.0 - 77.0 %) 61.3 Lymph % (Auto) (14.0 - 32.0 %) 23.8 Kern % (Auto) (4.8 - 9.0 %) 9.9 H Eos % (Auto) (0.3 - 3.7 %) 4.0 H Baso % (Auto) (0.0 - 2.0 %) 0.5 Neut # (Auto) (2.0 - 7.6 x10 3/uL) 7.24 Lymph # (Auto) (1.0 - 3.8 x10 3/uL) 2.81 Kern # (Auto) (0.1 - 0.8 x10 3/uL) 1.17 H Eos # (Auto) (0.0 - 0.2 x10 3/uL) 0.47 H Baso # (Auto) (0.0 - 0.2 x10 3/uL) 0.06 Abs Immat Gran (auto) (0.00 - 0.03 x10 3/uL) 0. 06 H Add Manual Diff NO Immature Gran % (0.0 - 2.0 %) 0.5 Nucleated RBC % (0 - 0 %) 0.0 Nucleated RBCs # (Man) (0.0 - 0.1 x10 3/uL) 0.0 0 Recent Impressions: RADIOLOGY - XR ANKLE 3 + V LT 01/03 2101 Report Impression - Status: SIGNED Entered: 01/04/2022 1021 IMPRESSION: Bimalleolar fracture with displacement and tibio talar dislocation. Superimposed infection cannot be excluded. Impression By: [email or web address] - Evan Tovar Results: labs reviewed Diagnosis, Assessment Plan Free Text A P: DM with neuropathy PVD wound left ankle ulcer left foot leukocytosis cellulitis left foot ankle fracture and dislocation IV abx culture left ankle and left foot--results discus sed with patient continue IV abx, ID on board pulse lavage wet to dry dressings left foot xray: no gas. no erosions. offloading boots. arterial studies--discussed with patient npo after midnight will take for reduction of fracture with externa l fixation vascular surgery next week consent Electronically Signed by Faby Wharton DPM on 07/05 at 1920 RPT #:[id number] END OF REPORT 2022-01-04 [facility], [facility] 16:32:00-00:00 [facility] ([facility]) Pain Management Progress Note REPORT#:[id number] REPORT STATUS: Signed DATE:01/04/22 TIME: 1632 PATIENT: PEDRO MCGREGOR UNIT #: [id number] ROOM/BED: 5506-1 : 54 AGE: 66 SEX: M ATTEND: Jean-Paul Ward od, MD ADM AUTHOR: Betty Tejeda APRN * ALL edits or amendments must be made on the Material Mix/computer document * Subjective Chief Complaint: Left foot pain Comments: Patient seen and examined. P ain has improved and is donig well with medications. No other issues. Review of Systems Free Text ROS Notes Free Text ROS Notes: 12 point ROS reviewed and negative unless stated otherwise Objective General VS/I O: Vital Signs Date Temp Pulse Resp B/P B/P Mean Pulse Ox FiO 2 01/03-01/04 36.7-37.3 90-98 16-17 107-122/64-69 79.6-85.4 93-98 Last Documented: Result Date Time O2 Flow Rate 2 01/04 1245 Pulse Ox 98 01/04 1117 B/P 107/69 01/04 1117 B/P Mean 81.3 01/04 1117 Pulse 91 01/04 1117 Resp 16 01/04 111 Temp 37.3 01/04 0433 O2 Delivery Room air 01/03 1637 24 hour I O ending at 0700: 01/04 0700 01/03 1900 Intake Total Output Total 1200 Balance -1200 Output, Urine 1200 PATIENT WEIGHT: Weight (lb): Weight (oz): Weight (kg): 100.000 Medications: Active Meds + DC'd Last 24 Hrs Propofol (DIPRIVAN 200MG/20ML INJECTION) 20 ML . STK-MED ONE IV (DC) Sodium Hypochlorite (DAKIN'S 1/4 STR (0.125%) 47 3ML) 1 APPLIC DAILY TOPICAL Benzocaine/Butamben/Tetracaine HCl (CETACAINE) 1 APPLIC ASDIR PRN MM (DC ) Flumazenil (ROMAZICON) 0.2 MG ASDIR PRN IV (DC) Midazolam HCl (VERSED) 2 MG ASDIR PRN IV (DC) Naloxone HCl (NARCAN) 0.4 MG ASDIR PRN IV (DC) Acetaminophen (TYLENOL) 650 MG Q4H PRN PRN PO Dextrose/Water (DEXTROSE 10% IN WATER) 125 ML DIR PRN IV (CKD) Dextrose/Water (DEXTROSE 10% IN WATER) 250 ML DIR PRN IV (CKD) Glucagon (GLUCAGON) 1 MG ASDIR PRN IM Hydromorphone HCl (DILAUDID) 0.5 MG Q4H PRN PRN IV Gabapentin (NEURONTIN) 300 MG BEDTIME PO Piperacillin Sod/Tazobactam Sod (ZOSYN 3.375GM) 3.375 GM Q8H IV Sodium Chloride (SODIUM CHLORIDE 0.9% 100 ML) 1 00 ML Insulin Human Lispro (HUMALOG) 10 UNIT AC BK GRACE SUBQ Furosemide (LASIX) 40 MG DAILY PO Loratadine (CLARITIN) 10 MG DAILY PO Tramadol HCl (ULTRAM) 100 MG Q6H PRN PRN PO Amitriptyline HCl (ELAVIL) 25 MG BEDTIME PO Atorvastatin Calcium (LIPITOR) 80 MG DAILY@2100 PO Ursodiol (ActigalL) 300 MG C BK DIN PO Insulin Human Lispro (HUMALOG) 10 UNIT AC DIN MARR BQ Insulin Human Lispro (HUMALOG) 0 AC HS SUBQ Sterile Water (WATER FOR IRRIGATION) DRESSING CH SHERICE ASDIR PRN IRR Aspirin (ASPIRIN) 81 MG DAILY PO Citalopram Hydrobromide (CeleXA) 20 MG DAILY PO Metoprolol Tartrate (LOPRESSOR) 25 MG DAILY PO Tamsulosin HCl (Flomax 0.4 mg) 0.4 MG DAILY PO Ondansetron HCl (ZOFRAN) 4 MG Q6H PRN PRN IV Physical Exam General appearance: alert, awake, oriented Head/Eyes: atraumatic, EOMI, normocephalic ENT: normal nose, normal sinus, moist mucosal me mbranes Neck: no masses or swelling, supple/no meningism us Cardiovascular: normal capillary refill, regular rate rhythm Respiratory: no distress, aerating well, symmetr ic expansion Abdomen: non-tender, no rebound, no distention Extremities: no edema, no clubbing, no c yanosis, decreased range of motion (of LLE 2/2 pain) Neuro/METAL WELDER: alert, oriented X 3, normal speech Skin: dry, intact, warm Results Findings/data: Laboratory Tests: 01/04 01/04 01/04 01/03 01/03 1116 0728 0415 2007 1635 Chemistry Sodium (134 - 147 mEq/L) 132 L Potassium (3.4 - 5.0 mEq/L) 4.2 Chloride (100 - 108 mEq/L) 94 L Carbon Dioxide (21 - 33 mEq/l) 30 Anion Gap (0 - 20) 13 BUN (7 - 18 mg/dL) 14 Creatinine (0.6 - 1.3 mg/dL) 1.3 Glomerular Filtr Rate (80 - 90) 60.2 L Glucose (70 - 110 mg/dL) 183 H POC Glucose (70 - 110 MG/DL) 197 H 183 H 185 H 165 H Calcium (8.0 - 10.5 mg/dL) 9.2 Coagulation INR (0.8 - 1.2) 1.4 H PTT ([place]) (25.0 - 39.5 Seconds) 32.6 PT Patient/Control Mix (9.3 - 12.9 15.9 H SECONDS) Hematology WBC (4.5 - 11.0 x10 3/uL) 11.8 H RBC (4.00 - 5.60 x10 6/uL) 3.34 L Hgb (12.5 - 16.9 g/dL) 9.6 L Hct (37.5 - 50.7 %) 30.1 L MCV (81.0 - 99.0 fL) 90.1 MCH (27.0 - 33.0 pg) 28.7 MCHC (33.0 - 37.0 g/dL) 31.9 L RDW (11.5 - 14.5 %) 15.5 H Plt Count (150 - 400 x10 3/uL) 701 H MPV (7.0 - 9.0 fL) 10.5 H Neut % (Auto) (56.0 - 77.0 %) 61.3 Lymph % (Auto) (14.0 - 32.0 %) 23.8 Kern % (Auto) (4.8 - 9.0 %) 9.9 H Eos % (Auto) (0.3 - 3.7 %) 4.0 H Baso % (Auto) (0.0 - 2.0 %) 0.5 Neut # (Auto) (2.0 - 7.6 x10 3/uL) 7.24 Lymph # (Auto) (1.0 - 3.8 x10 3/uL) 2.81 Kern # (Auto) (0.1 - 0.8 x10 3/uL) 1.17 H Eos # (Auto) (0.0 - 0.2 x10 3/uL) 0.47 H Baso # (Auto) (0.0 - 0.2 x10 3/uL) 0.06 Abs Immat Gran (auto) (0.00 - 0.03 0.06 H x10 3/uL) Add Manual Diff NO Immature Gran % (0.0 - 2.0 %) 0.5 Nucleated RBC % (0 - 0 %) 0.0 Nucleated RBCs # (Man) (0.0 - 0.1 0.00 x10 3/uL) Recent Impressions: RADIOLOGY - XR ANKLE 3 + V LT 01/03 2101 Report Impression - Status: SIGNED Entered: 01/04/2022 1021 IMPRESSION: Bimalleolar fracture with displacement and tibio talar dislocation. Superimposed infection cannot be excluded. Impression By: [email or web address] - Evan Tovar. Results: labs reviewed, vital signs stable Diagnosis, Assessment Plan Free text A P: Pedro Mcgregor is a 66yo male with PMH of DM II, HTN, CAD, HLD, and diabetic ulcers that was admitted with a left foot infection. 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 Dilaudid 0.5mg IV Q4hrs PRN severe pain Tramadol 100mg PO Q6hrs PRN moderate pain Gabapentin 300mg PO QHS for neuropathic pain Left foot infection - abx, podiatry following, p ending left BKA or LLE arteriogram on 01/05/22 Bacteremia - pending YOLA on 01/04/22 DM - SSI HLD - Lipitor HTN - Metoprolol BPH - Flomax CAD - ASA 81mg DC planning to SNF Please hold all narcotics for SBP < 90mm hg, Respiratory rate <8bpm, or altered mentation. Please call with any questions or concerns Thank you for allowing me to participate in this patient's care. Plan of care discussed with Dr. Posada and Dr. Felipe kumar, patient, primary team, and RN. All questions answered. Patient agrees w ith above plan of care. All diagnostic studies, ASSISTANT CHIEF TRAIN DISPATCHER, and labs in the pas t 24 hours reviewed and interpreted with Dr. Posada and Dr. Carter. [place] ASSISTANT CHIEF TRAIN DISPATCHER verified 12/31/21 at 2119 Electronically Signed by Bridgette Posada MD on 06/05 at 1536 RPT #:[id number] END OF REPORT 2022-01-04 [facility] 13:08:00-00:00 [facility] Cardiology Progress Note REPORT#:[id number] REPORT STATUS: Signed DATE:01/04/22 TIME: 1308 PATIENT: PEDRO MCGREGOR UNIT #: [id number] ROOM/BED: [address] : [address] AGE: 66 SEX: M ATTEND: Max Ward MD ADM AUTHOR: Lorena Sims LINK CUTTER * ALL edits or amendments must be made on the Material Mix/computer document * Subjective Chief complaint: F/U bacteremia Objective General VS/I O: 24 hour I O ending at 0700: 01/04 0700 01/03 1900 Intake Total Output Total 1200 Balance -1200 Output, Urine 1200 Vital Signs: Date Time Temp Pulse Resp B/P B/P Pulse O2 O2 F low FiO2 Mean Ox Delivery Rate 01/04 1245 2 01/04 1117 91 16 107/69 81.3 98 01/04 0433 99.1 98 17 110/64 79.6 95 01/04 0013 98.2 94 16 110/66 81.1 95 01/03 2006 98.2 90 17 122/67 85.4 97 01/03 1637 98.1 93 16 114/67 82.7 93 Room air PATIENT WEIGHT: Weight (lb): Weight (oz): Weight (kg): 100.000 Medications: Active Meds + DC'd Last 24 Hrs Sodium Hypochlorite (DAKIN'S 1/4 STR (0.125%) 47 3ML) 1 APPLIC DAILY TOPICAL Benzocaine/Butamben/Tetracaine HCl (CETACAINE) 1 APPLIC ASDIR PRN MM (DC ) Flumazenil (ROMAZICON) 0.2 MG ASDIR PRN IV (DC) Midazolam HCl (VERSED) 2 MG ASDIR PRN IV (DC) Naloxone HCl (NARCAN) 0.4 MG ASDIR PRN IV (DC) Acetaminophen (TYLENOL) 650 MG Q4H PRN PRN PO Dextrose/Water (DEXTROSE 10% IN WATER) 125 ML DIR PRN IV (CKD) Dextrose/Water (DEXTROSE 10% IN WATER) 250 ML DIR PRN IV (CKD) Glucagon (GLUCAGON) 1 MG ASDIR PRN IM Hydromorphone HCl (DILAUDID) 0.5 MG Q4H PRN PRN IV Gabapentin (NEURONTIN) 300 MG BEDTIME PO Piperacillin Sod/Tazobactam Sod (ZOSYN 3.375GM) 3.375 GM Q8H IV Sodium Chloride (SODIUM CHLORIDE 0.9% 100 ML) 1 00 ML Insulin Human Lispro (HUMALOG) 10 UNIT AC BK GRACE SUBQ Furosemide (LASIX) 40 MG DAILY PO Loratadine (CLARITIN) 10 MG DAILY PO Tramadol HCl (ULTRAM) 100 MG Q6H PRN PRN PO Amitriptyline HCl (ELAVIL) 25 MG BEDTIME PO Atorvastatin Calcium (LIPITOR) 80 MG DAILY@2100 PO Ursodiol (ActigalL) 300 MG C BK DIN PO Insulin Human Lispro (HUMALOG) 10 UNIT AC DIN MARR BQ Insulin Human Lispro (HUMALOG) 0 AC HS SUBQ Sterile Water (WATER FOR IRRIGATION) DRESSING CH SHERICE ASDIR PRN IRR Aspirin (ASPIRIN) 81 MG DAILY PO Citalopram Hydrobromide (CeleXA) 20 MG DAILY PO Metoprolol Tartrate (LOPRESSOR) 25 MG DAILY PO Tamsulosin HCl (Flomax 0.4 mg) 0.4 MG DAILY PO Ondansetron HCl (ZOFRAN) 4 MG Q6H PRN PRN IV Physical Exam General appearance: alert, awake, no acute distr ess Head/Eyes: atraumatic ENT: moist mucosal membranes Neck: no JVD, no masses or swelling Cardiovascular: CV assessment: regular rate and rhythm Respiratory: decreased breath sounds, no distres s Abdomen: soft, non-tender Lower extremity: LE assessment: no edema Diagnosis, Assessment Plan Free Text DxA P Notes Free Text DxA P Notes: Enterococcus Bacteremia -YOLA requested -scheduled for tomorrow/ Procedure explained to the patient, no further questions 01/04 Patient seen and examined s/p YOLA today was negative for endocarditis No further cardiac work up planned Will follow as needed POC discussed with patient and Dr. Flynn at 0910 Electronically Signed by Adam Flynn MD on 06/05 at 0912 RPT #:[id number] END OF REPORT 2022-01-04 [facility] 10:42:00-00:00 [facility] ([facility] Hospitalist Progress Note REPORT#:[id number] REPORT STATUS: Signed DATE:01/04/22 TIME: 1042 PATIENT: PEDRO MCGREGOR UNIT #: [id number] ROOM/BED: [place] [address] : 54 AGE: 66 SEX: M ATTEND: Jean-Paul Ward od, MD ADM AUTHOR: Lexa Samson LINK CUTTER * ALL edits or amendments must be made on the Material [email or web address] document * See Addendum Lexa Samson 01/04/22 1042: Subjective Chief complaint: He is feeling better. His Left LE and foot pain controlled. No CP, fever, chills. No N/v/D. BP and HR stable. Bhardwaj in placed. Objective General VS/I O: Vital Signs: Date Time Temp Pulse Resp B/P B/P Pulse O2 O2 F low FiO2 Mean Ox Delivery Rate 01/04 0433 37.3 98 17 110/64 79.6 95 01/04 0013 36.8 94 16 110/66 81.1 95 01/03 2006 36.8 90 17 122/67 85.4 97 01/03 1637 36.7 93 16 114/67 82.7 93 Room air 01/03 1125 36.7 72 16 126/70 88.4 95 Nasal cannula 24 hour I O ending at 0700: 01/04 0700 01/03 1900 Intake Total Output Total 1200 Balance -1200 Output, Urine 1200 PATIENT WEIGHT: Weight (lb): Weight (oz): Weight (kg): 100.000 Medications: Active Meds + DC'd Last 24 Hrs Sodium Hypochlorite (DAKIN'S 1/4 STR (0.125%) 47 3ML) 1 APPLIC DAILY TOPICAL Benzocaine/Butamben/Tetracaine HCl (CETACAINE) 1 APPLIC ASDIR PRN MM ( CKD) Flumazenil (ROMAZICON) 0.2 MG ASDIR PRN IV Midazolam HCl (VERSED) 2 MG ASDIR PRN IV Naloxone HCl (NARCAN) 0.4 MG ASDIR PRN IV Acetaminophen (TYLENOL) 650 MG Q4H PRN PRN PO Dextrose/Water (DEXTROSE 10% IN WATER) 125 ML DIR PRN IV (CKD) Dextrose/Water (DEXTROSE 10% IN WATER) 250 ML DIR PRN IV (CKD) Glucagon (GLUCAGON) 1 MG ASDIR PRN IM Hydromorphone HCl (DILAUDID) 0.5 MG Q4H PRN PRN IV Gabapentin (NEURONTIN) 300 MG BEDTIME PO Piperacillin Sod/Tazobactam Sod (ZOSYN 3.375GM) 3.375 GM Q8H IV Sodium Chloride (SODIUM CHLORIDE 0.9% 100 ML) 1 00 ML Insulin Human Lispro (HUMALOG) 10 UNIT AC BK GRACE SUBQ Furosemide (LASIX) 40 MG DAILY PO Loratadine (CLARITIN) 10 MG DAILY PO Tramadol HCl (ULTRAM) 100 MG Q6H PRN PRN PO Amitriptyline HCl (ELAVIL) 25 MG BEDTIME PO Atorvastatin Calcium (LIPITOR) 80 MG DAILY@2100 PO Ursodiol (ActigalL) 300 MG C BK DIN PO Insulin Human Lispro (HUMALOG) 10 UNIT AC DIN MARR BQ Insulin Human Lispro (HUMALOG) 0 AC HS SUBQ Sterile Water (WATER FOR IRRIGATION) DRESSING CH SHERICE ASDIR PRN IRR Aspirin (ASPIRIN) 81 MG DAILY PO Citalopram Hydrobromide (CeleXA) 20 MG DAILY PO Metoprolol Tartrate (LOPRESSOR) 25 MG DAILY PO Tamsulosin HCl (Flomax 0.4 mg) 0.4 MG DAILY PO Ondansetron HCl (ZOFRAN) 4 MG Q6H PRN PRN IV Dietitian nutrition assessment The data set between the solid lines has been im ported from the dietitian's assessment. BMI Calculated: 26.8 Nutrition related diagnosis: Nutrition diagnosis details: Nutrition problem: Nutrition etiology: Nutrition signs and symptoms: Nutrition prescription: Dietitian name: Assessment completed: Physical Exam General appearance: alert, awake, oriented Head/Eyes: atraumatic, EOMI ENT: moist mucosal membranes Neck: full range of motion, normal thyroid Cardiovascular: normal heart sounds, regular rat e rhythm Respiratory: aerating well, clear to auscultatio n, symmetric expansion Abdomen: non-tender, normal bowel sounds, soft Genitourinary: urinary catheter Extremities: no clubbing, no cyanosis, left foot : drssing C/D/I Neuro/METAL WELDER: alert, oriented X 3 Psychiatry: normal affect, normal mood Results Findings/Data: Laboratory Tests 01/04 01/04 01/03 01/03 01/03 07414 163 1123 Chemistry Sodium (134 - 147 mEq/L) 132 L Potassium (3.4 - 5.0 mEq/L) 4.2 Chloride (100 - 108 mEq/L) 94 L Carbon Dioxide (21 - 33 mEq/l) 30 Anion Gap (0 - 20) 13 BUN (7 - 18 mg/dL) 14 Creatinine (0.6 - 1.3 mg/dL) 1.3 Glomerular Filtr Rate (80 - 90) 60.2 L Glucose (70 - 110 mg/dL) 183 H POC Glucose (70 - 110 MG/DL) 183 H 185 H 165 H 240 H Calcium (8.0 - 10.5 mg/dL) 9.2 Laboratory Tests 01/04 415 Coagulation INR (0.8 - 1.2) 1.4 H PTT ([place]) (25.0 - 39.5 Seconds) 32.6 PT Patient/Control Mix (9.3 - 12.9 SECONDS) 15. 9 H Laboratory Tests 01/04 415 Hematology WBC (4.5 - 11.0 x10 3/uL) 11.8 H RBC (4.00 - 5.60 x10 6/uL) 3.34 L Hgb (12.5 - 16.9 g/dL) 9.6 L Hct (37.5 - 50.7 %) 30.1 L MCV (81.0 - 99.0 fL) 90.1 MCH (27.0 - 33.0 pg) 28.7 MCHC (33.0 - 37.0 g/dL) 31.9 L RDW (11.5 - 14.5 %) 15.5 H Plt Count (150 - 400 x10 3/uL) 701 H MPV (7.0 - 9.0 fL) 10.5 H Neut % (Auto) (56.0 - 77.0 %) 61.3 Lymph % (Auto) (14.0 - 32.0 %) 23.8 Kern % (Auto) (4.8 - 9.0 %) 9.9 H Eos % (Auto) (0.3 - 3.7 %) 4.0 H Baso % (Auto) (0.0 - 2.0 %) 0.5 Neut # (Auto) (2.0 - 7.6 x10 3/uL) 7.24 Lymph # (Auto) (1.0 - 3.8 x10 3/uL) 2.81 Kern # (Auto) (0.1 - 0.8 x10 3/uL) 1.17 H Eos # (Auto) (0.0 - 0.2 x10 3/uL) 0.47 H Baso # (Auto) (0.0 - 0.2 x10 3/uL) 0.06 Abs Immat Gran (auto) (0.00 - 0.03 x10 3/uL) 0. 06 H Add Manual Diff NO Immature Gran % (0.0 - 2.0 %) 0.5 Nucleated RBC % (0 - 0 %) 0.0 Nucleated RBCs # (Man) (0.0 - 0.1 x10 3/uL) 0.0 0 Radiology data: Recent Impressions: RADIOLOGY - XR ANKLE 3 + V LT 01/03 2101 Report Impression - Status: SIGNED Entered: 01/04/2022 1021 IMPRESSION: Bimalleolar fracture with displacement and tibio talar dislocation. Superimposed infection cannot be excluded. Impression By: [email or web address] - Evan Tovar Results: labs reviewed, vital signs reviewed, vi maida signs stable, current med profile rev'd Treatment Prophylaxis Treatment Prophylaxis Oxygen: room air Diagnosis, Assessment Plan Code status: full code Plan discussed with: patient, admitting physicia n, consultants, nurse Free Text DxA P Notes Free text DxA P notes: Assessment and PlaN; - Possible Endocarditis. - Bacteremia , recurrent Enterococcal Faecalis b acteremia. - Sepsis POA due to left foot OM. - Left Foot OM failed Outpt treatment. - Non healing wound of Left foot. - Hyponatremia - Left foot pain due to OM. - HX of HTN, HLD, DM type II, Liver disa se, Heart disease, diabetes neuropathy - Over weight 26.8. - On bhardwaj 2/2 non weight bearing of foot - UA positive for LE, UTI - Hypomagnesemia-replaced - PVD Plan: Floor. Will go to SNF today. PAIN CONTROL IV abx per ID f/u Cardiology Vascular sx CONSULT Appreciated Podiatry for Left foot wound. ID consult appreciated for left foot OM. Pain meds. Antiemetics. Glycemic control, accu check AC HS, ISS. Diabetic diet. Follow labs and replace as needed. Continue home meds. Monitor. Chelo Ward 01/04/22 1740: Attestations Physician Attestation Agree w/findings plan: Patient seen and examined and I agree with the f indings and plan as discussed with and documented by Lexa Benz NP Electronically Signed by Lexa Samson NP on at 1043 at 1803 Addendum 1: 01/04/22 1044 by Lexa Samson NP NPO for YOLA today. He will have Intervetion for his Left foot tomor row. He will be DC later once his procedure done. Electronically Signed by Lexa Samson NP on at 1044 at 1803 RPT #:[id number] END OF REPORT 2022-01-04 [facility] 10:19:00-00:00 [facility] ([facility] Infectious Dis. Progress Note REPORT#:[id number] REPORT STATUS: Signed DATE:01/04/22 TIME: 1019 PATIENT: PEDRO MCGREGOR UNIT #: [id number] ROOM/BED: [facility] : 54 AGE: 66 SEX: M ATTEND: Jean-Paul Ward od, MD ADM AUTHOR: Enrrique Kign MD * ALL edits or amendments must be made on the Material Mix/computer document * Subjective Chief complaint: LEFT FOOT INFECTION HPI: This is a 66-year-old male p atient with history of peripheral vascular disease, type 2 diabetes and neuropat hy who has been admitted for a left foot infection. He was admitted earlier this month to [facility] and was found to have a complicated gas-forming polymicrobial in fection of the left leg including osteomyelitis and septic arthritis of the left foot and ankle. His wound cultures grew Ente rococcus faecalis B fragilis, and gram-negative rods including Proteus. He also had Enterococcus faecalis bacteremia in November. He was treated multiple times with appropriate a ntibiotics but was thought to lack source control and was recommended BKA at t hat time. His blood cultures are now again growing Enteroc occus species. Patient reports: No: abdominal pain, back pain, burning w ith urination, cough, diarrhea, fever, headache, nausea, pain controlled, shortness of breath. Comments: going for angiogram today Objective Physical Exam Wound/incision: Location: Left foot and ankle ulcers dressing saturated Head/Eyes: atraumatic, clear cornea ENT: moist mucosal membranes, normal dentition Neck: full range of motion, non-tender Cardiovascular: normal heart sounds, regular rat e rhythm Respiratory: clear to auscultation, aerating wel l Abdomen: non-tender, normal bowel sounds Results Findings/Data: Laboratory Tests 01/04 01/04 01/03 01/03 01/03 0728 414 2007 163 1123 Chemistry Sodium (134 - 147 mEq/L) 132 L Potassium (3.4 - 5.0 mEq/L) 4.2 Chloride (100 - 108 mEq/L) 94 L Carbon Dioxide (21 - 33 mEq/l) 30 Anion Gap (0 - 20) 13 BUN (7 - 18 mg/dL) 14 Creatinine (0.6 - 1.3 mg/dL) 1.3 Glomerular Filtr Rate (80 - 90) 60.2 L Glucose (70 - 110 mg/dL) 183 H POC Glucose (70 - 110 MG/DL) 183 H 185 H 165 H 240 H Calcium (8.0 - 10.5 mg/dL) 9.2 Laboratory Tests 01/04 415 Coagulation INR (0.8 - 1.2) 1.4 H PTT ([place]) (25.0 - 39.5 Seconds) 32.6 PT Patient/Control Mix (9.3 - 12.9 SECONDS) 15. 9 H Laboratory Tests 01/04 415 Hematology WBC (4.5 - 11.0 x10 3/uL) 11.8 H RBC (4.00 - 5.60 x10 6/uL) 3.34 L Hgb (12.5 - 16.9 g/dL) 9.6 L Hct (37.5 - 50.7 %) 30.1 L MCV (81.0 - 99.0 fL) 90.1 MCH (27.0 - 33.0 pg) 28.7 MCHC (33.0 - 37.0 g/dL) 31.9 L RDW (11.5 - 14.5 %) 15.5 H Plt Count (150 - 400 x10 3/uL) 701 H MPV (7.0 - 9.0 fL) 10.5 H Neut % (Auto) (56.0 - 77.0 %) 61.3 Lymph % (Auto) (14.0 - 32.0 %) 23.8 Kern % (Auto) (4.8 - 9.0 %) 9.9 H Eos % (Auto) (0.3 - 3.7 %) 4.0 H Baso % (Auto) (0.0 - 2.0 %) 0.5 Neut # (Auto) (2.0 - 7.6 x10 3/uL) 7.24 Lymph # (Auto) (1.0 - 3.8 x10 3/uL) 2.81 Kern # (Auto) (0.1 - 0.8 x10 3/uL) 1.17 H Eos # (Auto) (0.0 - 0.2 x10 3/uL) 0.47 H Baso # (Auto) (0.0 - 0.2 x10 3/uL) 0.06 Abs Immat Gran (auto) (0.00 - 0.03 x10 3/uL) 0. 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 4-Peripheral vascular disease Recommendations Zosyn monotherapy given microbiology Cardiology consult for YOLA Repeat blood cultures until negative Vascular surgery consultation for possib le angiogram and correction of disease 01/03 Continue antibiotics Await debridement by podiatry Await vascular intervention Await YOLA 01/04 For angiogram today Continue Zosyn Electronically Signed by Enrrique King MD on at 1020 RPT #:[id number] END OF REPORT 2022-01-04 [facility] 08:21:00-00:00 [facility] ([facility]) Urology Progress Note REPORT#:[id number] REPORT STATUS: Signed DATE:01/04/22 TIME: 820 PATIENT: PEDRO MCGREGOR UNIT #: [id number] ROOM/BED: [place] [address] : 54 AGE: 66 SEX: M ATTEND: Jean-Paul Ward od, MD ADM AUTHOR: Dima Forbes NP * ALL edits or amendments must be made on the Material Mix/computer document * Subjective Chief complaint: URINARY RETENTION HPI: 66-year-old male with a history of hypertension, diabetes, hyperlipidemia, osteomyelitis, and CAD admitted for left foot in fection. He has associated generalized weakness, chills, and nausea , vomit ing. He has been on multiple rounds of antibiotics for this infection without relief. He denies chest pain, dyspnea, changes in his bowel/bladder movements, headache, blurred vision, or any other symptoms. Urologic al consultation was sought for the evaluation of the retention of urine and Bhardwaj catheter. H is Bhardwaj was recently changed . He was found to have positive blood cultures, urine cul ture is pending. UA was abnormal. WBC's are elevated 01/03/2022 - urine culture negative, wou nd and blood cultures noted. Renal u/s WNL Patient reports: no urinary pain, no abdominal p ain, no back pain Nursing reports: no urinary pain, no abdominal p ain, no back pain Objective General VS/I O: Last Documented: Result Date Time Pulse Ox 95 01/04 433 B/P 110/64 01/04 433 B/P Mean 79.6 01/04 433 Temp 37.3 01/04 433 Pulse 98 01/04 433 Resp 17 01/04 433 O2 Delivery Room air 01/03 1637 O2 Flow Rate 2 01/03 2000 24 hour I O ending at 0700: 01/04 0700 01/03 1900 Intake Total Output Total 1200 Balance -1200 Output, Urine 1200 PATIENT WEIGHT: Weight (lb): Weight (oz): Weight (kg): 100.000 Medications: Active Meds + DC'd Last 24 Hrs Sodium Hypochlorite (DAKIN'S / STR (0.125%) 47 3ML) 1 APPLIC DAILY TOPICAL Benzocaine/Butamben/Tetracaine HCl (CETACAINE) 1 APPLIC ASDIR PRN MM ( CKD) Flumazenil (ROMAZICON) 0.2 MG ASDIR PRN IV Midazolam HCl (VERSED) 2 MG ASDIR PRN IV Naloxone HCl (NARCAN) 0.4 MG ASDIR PRN IV Acetaminophen (TYLENOL) 650 MG Q4H PRN PRN PO Dextrose/Water (DEXTROSE 10% IN WATER) 125 ML DIR PRN IV (CKD) Dextrose/Water (DEXTROSE 10% IN WATER) 250 ML DIR PRN IV (CKD) Glucagon (GLUCAGON) 1 MG ASDIR PRN IM Hydromorphone HCl (DILAUDID) 0.5 MG Q4H PRN PRN IV Gabapentin (NEURONTIN) 300 MG BEDTIME PO Piperacillin Sod/Tazobactam Sod (ZOSYN 3.375GM) 3.375 GM Q8H IV Sodium Chloride (SODIUM CHLORIDE 0.9% 100 ML) 1 00 ML Insulin Human Lispro (HUMALOG) 10 UNIT AC BK GRACE SUBQ Furosemide (LASIX) 40 MG DAILY PO Loratadine (CLARITIN) 10 MG DAILY PO Tramadol HCl (ULTRAM) 100 MG Q6H PRN PRN PO Amitriptyline HCl (ELAVIL) 25 MG BEDTIME PO Atorvastatin Calcium (LIPITOR) 80 MG DAILY@2100 PO Ursodiol (ActigalL) 300 MG C BK DIN PO Insulin Human Lispro (HUMALOG) 10 UNIT AC DIN MARR BQ Insulin Human Lispro (HUMALOG) 0 AC HS SUBQ Sterile Water (WATER FOR IRRIGATION) DRESSING CH SHERICE ASDIR PRN IRR Aspirin (ASPIRIN) 81 MG DAILY PO Citalopram Hydrobromide (CeleXA) 20 MG DAILY PO Metoprolol Tartrate (LOPRESSOR) 25 MG DAILY PO Tamsulosin HCl (Flomax 0.4 mg) 0.4 MG DAILY PO Ondansetron HCl (ZOFRAN) 4 MG Q6H PRN PRN IV Dietitian nutrition assessment The data set between the solid lines has been im ported from the dietitian's assessment. BMI Calculated: 26.8 Nutrition related diagnosis: Nutrition diagnosis details: Nutrition problem: Nutrition etiology: Nutrition signs and symptoms: Nutrition prescription: Dietitian name: Assessment completed: Physical Exam General appearance: alert, awake, oriented Head/Eyes: atraumatic, clear cornea, EOMI, normo cephalic, normal conjunctiva/ sclera Neck: full range of motion, non-tender, no bruit /NL carotids Cardiovascular: normal capillary refill, regular rate rhythm, normal heart sounds, BP/pulses equal bilat. Respiratory: clear to auscultation, no distress, no tenderness, aerating well Abdomen: soft, non-tender, no guarding Genitourinary: Genitourinary: urinary catheter in place, good urine output Extremities: moves all, no edema, normal capilla ry refill, normal range of motion Skin: dry, intact, no gross abnormalities, tra l color, L foot wound wrapped Results Findings/Data: Laboratory Tests: 01/045 2007 1635 1123 Chemistry Sodium (134 - 147 mEq/L) 132 L Potassium (3.4 - 5.0 mEq/L) 4.2 Chloride (100 - 108 mEq/L) 94 L Carbon Dioxide (21 - 33 mEq/l) 30 Anion Gap (0 - 20) 13 BUN (7 - 18 mg/dL) 14 Creatinine (0.6 - 1.3 mg/dL) 1.3 Glomerular Filtr Rate (80 - 90) 60.2 L Glucose (70 - 110 mg/dL) 183 H POC Glucose (70 - 110 MG/DL) 185 H 165 H 240 H Calcium (8.0 - 10.5 mg/dL) 9.2 Coagulation INR (0.8 - 1.2) 1.4 H PTT ([place]) (25.0 - 39.5 Seconds) 32.6 PT Patient/Control Mix (9.3 - 12.9 SECONDS) 15. 9 H Hematology WBC (4.5 - 11.0 x10 3/uL) 11.8 H RBC (4.00 - 5.60 x10 6/uL) 3.34 L Hgb (12.5 - 16.9 g/dL) 9.6 L Hct (37.5 - 50.7 %) 30.1 L MCV (81.0 - 99.0 fL) 90.1 MCH (27.0 - 33.0 pg) 28.7 MCHC (33.0 - 37.0 g/dL) 31.9 L RDW (11.5 - 14.5 %) 15.5 H Plt Count (150 - 400 x10 3/uL) 701 H MPV (7.0 - 9.0 fL) 10.5 H Neut % (Auto) (56.0 - 77.0 %) 61.3 Lymph % (Auto) (14.0 - 32.0 %) 23.8 [place] % (Auto) (4.8 - 9.0 %) 9.9 H Eos % (Auto) (0.3 - 3.7 %) 4.0 H Baso % (Auto) (0.0 - 2.0 %) 0.5 Neut # (Auto) (2.0 - 7.6 x10 3/uL) 7.24 Lymph # (Auto) (1.0 - 3.8 x10 3/uL) 2.81 Kern # (Auto) (0.1 - 0.8 x10 3/uL) 1.17 H Eos # (Auto) (0.0 - 0.2 x10 3/uL) 0.47 H Baso # (Auto) (0.0 - 0.2 x10 3/uL) 0.06 Abs Immat Gran (auto) (0.00 - 0.03 x10 3/uL) 0. 06 H Add Manual Diff NO Immature Gran % (0.0 - 2.0 %) 0.5 Nucleated RBC % (0 - 0 %) 0.0 Nucleated RBCs # (Man) (0.0 - 0.1 x10 3/uL) 0.0 0 Results: labs reviewed, vital signs reviewed Diagnosis, Assessment Plan Free Text A P: Assessment BPH Urinary retention Bhardwaj in situ Bacteremia Leukocytosis Proteinuria Microhematuria WISAM on CKD Plan Bhardwaj recently changed Urine culture negative Renal u/s WNL Continue Flomax Voiding trials once clinically improved outpatient cystoscopy and urodynamics Monitor for hematuria We will follow Heme and lytes per primary team ABX per ID Thank you for this kind consult Electronically Signed by Dima Forbes LINK CUTTER on at 0822 RPT #:[id number] END OF REPORT 2022-01-03 [facility] 18:16:00-00:00 [facility]) Podiatry Progress Note REPORT#:[id number] REPORT STATUS: Signed DATE:01/03/22 TIME: 1815 PATIENT: PEDRO MCGREGOR UNIT #: [id number] ROOM/BED: [place] [address] : 54 AGE: 66 SEX: M ATTEND: Jean-Paul Ward od, MD ADM AUTHOR: Faby Wharton DPEvan * ALL edits or amendments must be made on the [email or web address] document * Subjective Chief complaint: left foot infection HPI: FOOT ULCER Objective General VS: Last Documented: Result Date Time Pulse Ox 93 01/03 1637 B/P 114/67 01/03 1637 B/P Mean 82.7 01/03 1637 O2 Delivery Room air 01/03 1637 Temp 36.7 01/03 1637 Pulse 93 01/03 1637 Resp 16 01/03 1637 O2 Flow Rate 2 01/03 2000 PATIENT WEIGHT: Weight (lb): Weight (oz): Weight (kg): 100.000 Medications: Active Meds + DC'd Last 24 Hrs Benzocaine/Butamben/Tetracaine HCl (CETACAINE) 1 APPLIC ASDIR PRN MM ( CKD) Flumazenil (ROMAZICON) 0.2 MG ASDIR PRN IV Midazolam HCl (VERSED) 2 MG ASDIR PRN IV Naloxone HCl (NARCAN) 0.4 MG ASDIR PRN IV Acetaminophen (TYLENOL) 650 MG Q4H PRN PRN PO Dextrose/Water (DEXTROSE 10% IN WATER) 125 ML DIR PRN IV (CKD) Dextrose/Water (DEXTROSE 10% IN WATER) 250 ML DIR PRN IV (CKD) Glucagon (GLUCAGON) 1 MG ASDIR PRN IM Hydromorphone HCl (DILAUDID) 0.5 MG Q4H PRN PRN IV Gabapentin (NEURONTIN) 300 MG BEDTIME PO Piperacillin Sod/Tazobactam Sod (ZOSYN 3.375GM) 3.375 GM Q8H IV Sodium Chloride (SODIUM CHLORIDE 0.9% 100 ML) 1 00 ML Insulin Human Lispro (HUMALOG) 10 UNIT AC BK GRACE SUBQ Furosemide (LASIX) 40 MG DAILY PO Loratadine (CLARITIN) 10 MG DAILY PO Tramadol HCl (ULTRAM) 100 MG Q6H PRN PRN PO Amitriptyline HCl (ELAVIL) 25 MG BEDTIME PO Atorvastatin Calcium (LIPITOR) 80 MG DAILY@2100 PO Ursodiol (ActigalL) 300 MG C BK DIN PO Insulin Human Lispro (HUMALOG) 10 UNIT AC DIN MARR BQ Insulin Human Lispro (HUMALOG) 0 AC HS SUBQ Sterile Water (WATER FOR IRRIGATION) DRESSING CH SHERICE ASDIR PRN IRR Aspirin (ASPIRIN) 81 MG DAILY PO Citalopram Hydrobromide (CeleXA) 20 MG DAILY PO Metoprolol Tartrate (LOPRESSOR) 25 MG DAILY PO Tamsulosin HCl (Flomax 0.4 mg) 0.4 MG DAILY PO Ondansetron HCl (ZOFRAN) 4 MG Q6H PRN PRN IV I O: 24 hour I O ending at 0700: 01/03 0700 11 1900 Intake Total 200.00 480 Output Total 800 1400 Balance -600.00 -920 Intake, Free 80 Water Intake, IV 200.00 Intake, Tube 400 Feeding Output, Urine 800 1400 Dietitian nutrition assessment The data set between the solid lines has been im ported from the dietitian's assessment. BMI Calculated: 26.8 Nutrition related diagnosis: Nutrition diagnosis details: Nutrition problem: Nutrition etiology: Nutrition signs and symptoms: Nutrition prescription: Dietitian name: Assessment completed: Physical Exam Wound/incision: Location: left foot Site condition: drainage, dressing saturated, e cchymosis, erythema, eschar, necrotic tissue, odor, left foot dp/pt 1/4 light touch decreased. wound anterior left ankle. seropurulent imelda inage. ulcer extensive from medial left hindfoot to medial left midfoot. into marr b q layer. no ability to invert the left foot. foot is deformed. it is severely everted. no lymphang itis. LE vascular pulse assess: 1+ L posterior tibialis, 1+ L dorsalis pedis Results Findings/Data: Laboratory Tests: 01/03 01/03 01/03 01/02 1635 1123 5553 2011 Chemistry POC Glucose (70 - 110 MG/DL) 165 H 240 H 209 H 167 H Results: labs reviewed Diagnosis, Assessment Plan Free Text A P: DM with neuropathy PVD wound left ankle ulcer left foot leukocytosis cellulitis left foot IV abx culture left ankle and left foot--results discus sed with patient continue IV abx, ID on board pulse lavage wet to dry dressings left foot xray: no gas. no erosions. offloading boots. arterial studies--discussed with patient. In lig ht of the doppler results, patient will need Electronically Signed by Faby Wharton DPM on 07/05 at 1920 RPT #:[id number] END OF REPORT 2022-01-03 [facility] 16:39:00-00:00 [facility] ([facility]) Pain Management Progress Note REPORT#:[id number] REPORT STATUS: Signed DATE:01/03/22 TIME: 1639 PATIENT: PEDRO MCGREGOR UNIT #: [id number] ROOM/BED: [place] [address] : 54 AGE: 66 SEX: M ATTEND: Jean-Paul Ward od, MD ADM AUTHOR: Betty Tejeda APRN * ALL edits or amendments must be made on the Material [email or web address] document * Subjective Chief Complaint: Left foot pain Comments: Patient seen and examined. Pain remains stable a nd well-controlled on current regimen. Denies n/v/drowsiness. Review of Systems Free Text ROS Notes Free Text ROS Notes: 12 point ROS reviewed and negative unless stated otherwise Objective General VS/I O: Vital Signs Date Temp Pulse Resp B/P B/P Mean Pulse Ox FiO2 01/02-01/03 36.3-38.0 72-100 16-17 114-161/53-79 82.7-93.7 93-97 Last Documented: Result Date Time Pulse Ox 93 01/03 1637 B/P 114/67 01/03 1637 B/P Mean 82.7 01/03 1637 O2 Delivery Room air 01/03 1637 Temp 36.7 01/03 1637 Pulse 93 01/03 1637 Resp 16 01/03 1637 O2 Flow Rate 2 01/03 2000 24 hour I O ending at 0700: 01/03 0700 01/02 1900 Intake Total 200.00 480 Output Total 800 1400 Balance -600.00 -920 Intake, Free 80 Water Intake, IV 200.00 Intake, Tube 400 Feeding Output, Urine 800 1400 PATIENT WEIGHT: Weight (lb): Weight (oz): Weight (kg): 100.000 Medications: Active Meds + DC'd Last 24 Hrs Benzocaine/Butamben/Tetracaine HCl (CETACAINE) 1 APPLIC ASDIR PRN MM ( CKD) Flumazenil (ROMAZICON) 0.2 MG ASDIR PRN IV Midazolam HCl (VERSED) 2 MG ASDIR PRN IV Naloxone HCl (NARCAN) 0.4 MG ASDIR PRN IV Acetaminophen (TYLENOL) 650 MG Q4H PRN PRN PO Dextrose/Water (DEXTROSE 10% IN WATER) 125 ML DIR PRN IV (CKD) Dextrose/Water (DEXTROSE 10% IN WATER) 250 ML DIR PRN IV (CKD) Glucagon (GLUCAGON) 1 MG ASDIR PRN IM Hydromorphone HCl (DILAUDID) 0.5 MG Q4H PRN PRN IV Gabapentin (NEURONTIN) 300 MG BEDTIME PO Piperacillin Sod/Tazobactam Sod (ZOSYN 3.375GM) 3.375 GM Q8H IV Sodium Chloride (SODIUM CHLORIDE 0.9% 100 ML) 1 00 ML Insulin Human Lispro (HUMALOG) 10 UNIT AC BK GRACE SUBQ Furosemide (LASIX) 40 MG DAILY PO Loratadine (CLARITIN) 10 MG DAILY PO Tramadol HCl (ULTRAM) 100 MG Q6H PRN PRN PO Amitriptyline HCl (ELAVIL) 25 MG BEDTIME PO Atorvastatin Calcium (LIPITOR) 80 MG DAILY@2100 PO Ursodiol (ActigalL) 300 MG C BK DIN PO Insulin Human Lispro (HUMALOG) 10 UNIT AC DIN MARR BQ Insulin Human Lispro (HUMALOG) 0 AC HS SUBQ Sterile Water (WATER FOR IRRIGATION) DRESSING CH SHERICE ASDIR PRN IRR Aspirin (ASPIRIN) 81 MG DAILY PO Citalopram Hydrobromide (CeleXA) 20 MG DAILY PO Metoprolol Tartrate (LOPRESSOR) 25 MG DAILY PO Tamsulosin HCl (Flomax 0.4 mg) 0.4 MG DAILY PO Ondansetron HCl (ZOFRAN) 4 MG Q6H PRN PRN IV Physical Exam General appearance: alert, awake, oriented Head/Eyes: atraumatic, EOMI, normocephalic ENT: normal nose, normal sinus, moist mucosal me mbranes Neck: no masses or swelling, supple/no meningism us Cardiovascular: normal capillary refill, regular rate rhythm Respiratory: no distress, aerating well, symmetr ic expansion Abdomen: non-tender, no rebound, no distention Extremities: no edema, no clubbing, no c yanosis, decreased range of motion (of LLE 2/2 pain) Neuro/METAL WELDER: alert, oriented X 3, normal speech Skin: dry, intact, warm Results Findings/data: Laboratory Tests: 01/03 01/03 01/02 1123 0731 2011 Chemistry POC Glucose (70 - 110 MG/DL) 240 H 209 H 167 H Results: labs reviewed, vital signs stable Diagnosis, Assessment Plan Free text A P: Pedro Mcgregor is a 66yo male with PMH of DM II, HTN, CAD, HLD, and diabetic ulcers that was admitted with a left foot infection. 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 Dilaudid 0.5mg IV Q4hrs PRN severe pain Tramadol 100mg PO Q6hrs PRN moderate pain Gabapentin 300mg PO QHS for neuropathic pain Left foot infection - abx, podiatry following, p ending left BKA or LLE arteriogram on 01/05/22 Bacteremia - pending YOLA on 01/04/22 DM - SSI HLD - Lipitor HTN - Metoprolol BPH - Flomax CAD - ASA 81mg Please hold all narcotics for SBP < 90mm hg, Respiratory rate <8bpm, or altered mentation. Please call with any questions or concerns [phone] Thank you for allowing me to participate in this patient's care. Plan of care discussed with Dr. Posada and Dr. Felipe kumar, patient, primary team, and RN. All questions answered. Patient agrees w ith above plan of care. All diagnostic studies, ASSISTANT CHIEF TRAIN DISPATCHER, and labs in the pas t 24 hours reviewed and interpreted with Dr. Posada and Dr. Carter. [place] ASSISTANT CHIEF TRAIN DISPATCHER verified 12/31/21 at 2119 Electronically Signed by Kanwal Carter DO on 0 02/16/22 at 1545 RPT #:[id number] END OF REPORT 2022-01-03 [facility] 13:42:00-00:00 [facility] Cardiology Progress Note REPORT#:[id number] REPORT STATUS: Signed DATE:01/03/22 TIME: 1342 PATIENT: PEDRO MCGREGOR UNIT #: [id number] ROOM/BED: [place] [address] : 54 AGE: 66 SEX: M ATTEND: Jean-Paul Ward od, MD ADM AUTHOR: Adam Flynn MD * ALL edits or amendments must be made on the el [employer]/computer document * Subjective Chief complaint: bacteremia Objective General VS/I O: 24 hour I O ending at 0700: 01/03 0700 01/02 1900 Intake Total 200.00 480 Output Total 800 1400 Balance -600.00 -920 Intake, Free 80 Water Intake, IV 200.00 Intake, Tube 400 Feeding Output, Urine 800 1400 Vital Signs: Date Time Temp Pulse Resp B/P B/P Pulse O2 O2 Flow FiO2 Mean Ox Delivery Rate 01/03 1125 98.1 72 16 126/70 88.4 95 Nasal cannula 01/03 0733 97.9 100 16 120/72 88.4 96 Nasal cannula 01/03 0347 97.3 93 17 122/79 93.7 97 01/02 2340 98.1 93 17 115/68 84.0 95 01/02 2213 98.6 93 95 01/02 2010 100.4 92 17 161/53 89.1 94 01/03 2000 Nasal 2 cannula 01/02 1535 98.4 84 18 123/64 83.7 93 PATIENT WEIGHT: Weight (lb): Weight (oz): Weight (kg): 100.000 Medications: Active Meds + DC'd Last 24 Hrs Benzocaine/Butamben/Tetracaine HCl (CETACAINE) 1 APPLIC ASDIR PRN MM ( CKD) Flumazenil (ROMAZICON) 0.2 MG ASDIR PRN IV Midazolam HCl (VERSED) 2 MG ASDIR PRN IV Naloxone HCl (NARCAN) 0.4 MG ASDIR PRN IV Acetaminophen (TYLENOL) 650 MG Q4H PRN PRN PO Dextrose/Water (DEXTROSE 10% IN WATER) 125 ML DIR PRN IV (CKD) Dextrose/Water (DEXTROSE 10% IN WATER) 250 ML DIR PRN IV (CKD) Glucagon (GLUCAGON) 1 MG ASDIR PRN IM Hydromorphone HCl (DILAUDID) 0.5 MG Q4H PRN PRN IV Gabapentin (NEURONTIN) 300 MG BEDTIME PO Piperacillin Sod/Tazobactam Sod (ZOSYN 3.375GM) 3.375 GM Q8H IV Sodium Chloride (SODIUM CHLORIDE 0.9% 100 ML) 1 00 ML Insulin Human Lispro (HUMALOG) 10 UNIT AC BK GRACE SUBQ Furosemide (LASIX) 40 MG DAILY PO Loratadine (CLARITIN) 10 MG DAILY PO Tramadol HCl (ULTRAM) 100 MG Q6H PRN PRN PO Amitriptyline HCl (ELAVIL) 25 MG BEDTIME PO Atorvastatin Calcium (LIPITOR) 80 MG DAILY@2100 PO Ursodiol (ActigalL) 300 MG C BK DIN PO Insulin Human Lispro (HUMALOG) 10 UNIT AC DIN MARR BQ Insulin Human Lispro (HUMALOG) 0 AC HS SUBQ Sterile Water (WATER FOR IRRIGATION) DRESSING CH SHERICE ASDIR PRN IRR Aspirin (ASPIRIN) 81 MG DAILY PO Citalopram Hydrobromide (CeleXA) 20 MG DAILY PO Metoprolol Tartrate (LOPRESSOR) 25 MG DAILY PO Tamsulosin HCl (Flomax 0.4 mg) 0.4 MG DAILY PO Ondansetron HCl (ZOFRAN) 4 MG Q6H PRN PRN IV Diagnosis, Assessment Plan Free Text DxA P Notes Free Text DxA P Notes: Enterococcus Bacteremia -YOLA requested -scheduled for tomorrow/ Procedure explained to the patient, no further questions Electronically Signed by Adam Flynn MD on at 1344 RPT #:[id number] END OF REPORT 2022-01-03 [facility] 11:22:00-00:00 [facility] Hospitalist Progress Note REPORT#:[id number] REPORT STATUS: Signed DATE:01/03/22 TIME: 112 PATIENT: PEDRO MCGREGOR UNIT #: [id number] ROOM/BED: [place] [address] : 54 AGE: 66 SEX: M ATTEND: Jean-Paul Ward od, MD ADM AUTHOR: Lexa Samson LINK CUTTER * ALL edits or amendments must be made on the Material Mix/computer document * Lexa aSmson 01/03/22 1122: Subjective Chief complaint: He is feeling better. His Left LE and foot pain controlled. No CP, fever, chills. No N/v/D. BP and HR stable. Bhardwaj in placed. Review of Systems Constitutional: Reports: fatigue, generalized weakness. Allergy/Immun: Denies: anaphylaxis, hives. ENT: Denies: ear ringing, hearing loss, nasal congest ion, throat pain, throat swelling. Respiratory: Denies: hemoptysis, pleurisy, pleuritic pain, pn eumonia, productive cough ( sputum). Cardiovascular: Denies: GIBBS (dyspnea on exertion), edema, orthop booker, palpitations. GI: Denies: abdominal pain, constipation, dysphagia, hematemesis, hiatal hernia. : Denies: frequency, nocturia, penile lesion. Musculoskeletal: Extremity pain: Reports: left lower. Joint pain: Reports: left lower. Heme: Denies: bleeding, bruising. Neuro: Denies: change in LOC, confusion, lightheaded, s eizure. Objective General VS/I O: Vital Signs: Date Time Temp Pulse Resp B/P B/P Pulse O2 O2 F low FiO2 Mean Ox Delivery Rate 01/03 0733 36.6 100 16 120/72 88.4 96 Nasal cannula 01/03 0347 36.3 93 17 122/79 93.7 97 01/02 2340 36.7 93 17 115/68 84.0 95 01/02 2213 37.0 93 95 01/02 2010 38.0 92 17 161/53 89.1 94 01/03 2000 Nasal 2 cannula 01/02 1535 36.9 84 18 123/64 83.7 93 24 hour I O ending at 0700: 01/03 0700 01/02 1900 Intake Total 200.00 480 Output Total 800 1400 Balance -600.00 -920 Intake, Free 80 Water Intake, IV 200.00 Intake, Tube 400 Feeding Output, Urine 800 1400 PATIENT WEIGHT: Weight (lb): Weight (oz): Weight (kg): 100.000 Medications: Active Meds + DC'd Last 24 Hrs Acetaminophen (TYLENOL) 650 MG Q4H PRN PRN PO Dextrose/Water (DEXTROSE 10% IN WATER) 125 ML DIR PRN IV (CKD) Dextrose/Water (DEXTROSE 10% IN WATER) 250 ML DIR PRN IV (CKD) Glucagon (GLUCAGON) 1 MG ASDIR PRN IM Hydromorphone HCl (DILAUDID) 0.5 MG Q4H PRN PRN IV Gabapentin (NEURONTIN) 300 MG BEDTIME PO Piperacillin Sod/Tazobactam Sod (ZOSYN 3.375GM) 3.375 GM Q8H IV Sodium Chloride (SODIUM CHLORIDE 0.9% 100 ML) 1 00 ML Insulin Human Lispro (HUMALOG) 10 UNIT AC BK GRACE SUBQ Furosemide (LASIX) 40 MG DAILY PO Loratadine (CLARITIN) 10 MG DAILY PO Tramadol HCl (ULTRAM) 100 MG Q6H PRN PRN PO Amitriptyline HCl (ELAVIL) 25 MG BEDTIME PO Atorvastatin Calcium (LIPITOR) 80 MG DAILY@2100 PO Ursodiol (ActigalL) 300 MG C BK DIN PO Insulin Human Lispro (HUMALOG) 10 UNIT AC DIN MARR BQ Insulin Human Lispro (HUMALOG) 0 AC HS SUBQ Sterile Water (WATER FOR IRRIGATION) DRESSING CH SHERICE ASDIR PRN IRR Aspirin (ASPIRIN) 81 MG DAILY PO Citalopram Hydrobromide (CeleXA) 20 MG DAILY PO Metoprolol Tartrate (LOPRESSOR) 25 MG DAILY PO Tamsulosin HCl (Flomax 0.4 mg) 0.4 MG DAILY PO Ondansetron HCl (ZOFRAN) 4 MG Q6H PRN PRN IV Dietitian nutrition assessment The data set between the solid lines has been im ported from the dietitian's assessment. BMI Calculated: 26.8 Nutrition related diagnosis: Nutrition diagnosis details: Nutrition problem: Nutrition etiology: Nutrition signs and symptoms: Nutrition prescription: Dietitian name: Assessment completed: Physical Exam General appearance: alert, awake, oriented Head/Eyes: atraumatic, EOMI ENT: moist mucosal membranes Neck: full range of motion, normal thyroid Cardiovascular: normal heart sounds, regular rat e rhythm Respiratory: aerating well, clear to auscultatio n, symmetric expansion Abdomen: non-tender, normal bowel sounds, soft Genitourinary: urinary catheter Extremities: no clubbing, no cyanosis, left foot : drssing C/D/I Neuro/METAL WELDER: alert, oriented X 3 Psychiatry: normal affect, normal mood Results Findings/Data: Laboratory Tests 01/0331 2011 1535 Chemistry POC Glucose (70 - 110 MG/DL) 209 H 167 H 136 H Results: vital signs reviewed, vital signs stabl e, current med profile rev'd Treatment Prophylaxis Treatment Prophylaxis Oxygen: room air Diagnosis, Assessment Plan Code status: full code Plan discussed with: patient, admitting physicia n, consultants, nurse Free Text DxA P Notes Free text DxA P notes: Assessment and PlaN; - Possible Endocarditis. - Bacteremia , recurrent Enterococcal Faecalis b acteremia. - Sepsis POA due to left foot OM. - Left Foot OM failed Outpt treatment. - Non healing wound of Left foot. - Hyponatremia - Left foot pain due to OM. - HX of HTN, HLD, DM type II, Liver disa se, Heart disease, diabetes neuropathy - Over weight 26.8. - On bhardwaj 2/2 non weight bearing of foot - UA positive for LE, UTI - Hypomagnesemia-replaced - PVD Plan: Floor. Possible BKA vs Left LE areteriogram. NPO for Possible YOLA today to rule out Endocardi tis. PAIN CONTROL IV abx per ID f/u Cardiology Vascular sx CONSULT Appreciated Podiatry for Left foot wound. ID consult appreciated for left foot OM. Pain meds. Antiemetics. Glycemic control, accu check AC HS, ISS. Diabetic diet. Follow labs and replace as needed. Continue home meds. Monitor. Chelo Ward 01/04/22 1739: Attestations Physician Attestation Agree w/findings plan: Patient seen and examined and I agree with the f indings and plan as discussed with and documented by Lexa Benz NP Electronically Signed by Lexa Samson NP on at 1126 at 1801 RPT #:[id number] END OF REPORT 2022-01-03 [facility] 10:27:00-00:00 [facility] ([facility]) Infectious Dis. Progress Note REPORT#:[id number] REPORT STATUS: Signed DATE:01/03/22 TIME: 1027 PATIENT: PEDRO MCGREGOR UNIT #: [id number] ROOM/BED: [place] [address] : [birth year] AGE: 66 SEX: M ATTEND: Jean-Paul Ward od, MD ADM AUTHOR: Enrrique iKng MD * ALL edits or amendments must be made on the Material Mix/computer document * Subjective Chief complaint: LEFT FOOT INFECTION HPI: This is a 66-year-old male p atient with history of peripheral vascular disease, type 2 diabetes and neuropat hy who has been admitted for a left foot infection. He was admitted earlier this month to [facility] and was found to have a complicated gas-forming polymicrobial in fection of the left leg including osteomyelitis and septic arthritis of the left foot and ankle. His wound cultures grew Ente rococcus faecalis B fragilis, and gram-negative rods including Proteus. He also had Enterococcus faecalis bacteremia in November. He was treated multiple times with appropriate a ntibiotics but was thought to lack source control and was recommended BKA at t hat time. His blood cultures are now again growing Enteroc occus species. Patient reports: No: abdominal pain, back pain, burning w ith urination, cough, diarrhea, fever, headache, nausea, shortness of breath. Objective General VS/I O: Vital Signs Date Temp Pulse Resp B/P B/P Mean Pulse Ox FiO2 01/02-01/03 97.3-100.4 79-100 16-18 115-161/53-7 9 83.7-93.7 92-97 Last Documented: Result Date Time Pulse Ox 96 01/03 733 B/P 120/72 01/03 733 B/P Mean 88.4 01/03 733 O2 Delivery Nasal cannula 01/03 733 Temp 97.9 01/03 733 Pulse 100 01/03 733 Resp 16 01/03 0733 O2 Flow Rate 2 01/03 2000 Vital Signs: Date Time Temp Pulse Resp B/P B/P Pulse O2 O2 F low FiO2 Mean Ox Delivery Rate 01/03 733 97.9 100 16 120/72 88.4 96 Nasal cannula 01/03 0347 97.3 93 17 122/79 93.7 97 01/02 2340 98.1 93 17 115/68 84.0 95 01/023 98.6 93 95 01/02 2010 100.4 92 17 161/53 89.1 94 01/03 2000 Nasal 2 cannula 01/02 1535 98.4 84 18 123/64 83.7 93 01/02 1109 98.4 79 16 116/71 86.4 92 24 hour I O ending at 0700: 01/03 0700 01/02 1900 Intake Total 200.00 480 Output Total 800 1400 Balance -600.00 -920 Intake, Free 80 Water Intake, IV 200.00 Intake, Tube 400 Feeding Output, Urine 800 1400 PATIENT WEIGHT: Weight (lb): Weight (oz): Weight (kg): 100.000 Physical Exam Wound/incision: Location: Left foot and ankle ulcers dressing saturated Head/Eyes: atraumatic, clear cornea ENT: moist mucosal membranes, normal dentition Neck: full range of motion, non-tender Cardiovascular: normal heart sounds, regular rat e rhythm Respiratory: clear to auscultation, aerating wel l Abdomen: non-tender, normal bowel sounds Results Findings/Data: Microbiology: 01/02 1015 BLOOD: Blood Culture - RECD 01/02 1015 BLOOD: Blood Culture - RECD 01/01 0350 URINE: Urine Culture - COMP 12/31 1500 ANKLE: Wound Culture - COMP ENTEROCOCCUS FAECALIS 12/31 1500 FOOT: Wound Culture - COMP ESCHERICHIA COLI ENTEROCOCCUS SPECIES. Hematology: 01/02 01/01 0400 0350 Hematology WBC (4.5 - 11.0 x10 3/uL) 11.3 H 11.2 H Chemistry: 01/02 01/01 0400 0350 Chemistry Creatinine (0.6 - 1.3 mg/dL) 1.1 1.0 Recent Impressions: ULTRASOUND - DOP ART SGL LEVEL MALIK 01/01 1206 Report Impression - Status: SIGNED Entered: 01/01/2022 1354 IMPRESSION: Monophasic waveforms in the left lower extremity . Impression By: Roberta Samayoa ULTRASOUND - US RETROPERITONEAL COM 01/01 1207 Report Impression - Status: SIGNED Entered: 01/01/2022 1248 IMPRESSION: No acute abnormalities of the kidneys. Impression By: SegundoABErnestina Elena M.D. Microbiology: 01/02 1015 BLOOD: Blood Culture - RECD 01/01 0350 URINE: Urine Culture - COMP 12/31 1500 ANKLE: Wound Culture - COMP ENTEROCOCCUS FAECALIS 12/31 1500 FOOT: Wound Culture - COMP ESCHERICHIA COLI ENTEROCOCCUS SPECIES. 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 09:45:00-00:00 [facility]) Urology Progress Note REPORT#:[id number] REPORT STATUS: Signed DATE:01/03/22 TIME: 944 PATIENT: PEDRO MCGREGOR UNIT #: [id number] ROOM/BED: [address] : 54 AGE: 66 SEX: M ATTEND: Max Ward MD ADM AUTHOR: Dima Forbes NP * ALL edits or amendments must be made on the el [employer]/computer document * Subjective Chief complaint: URINARY RETENTION HPI: 66-year-old male with a history of hypertension, diabetes, hyperlipidemia, osteomyelitis, and CAD admitted for left foot in [facility]. He has associated generalized weakness, chills, and nausea , vomit ing. He has been on multiple rounds of antibiotics for this infection without relief. He denies chest pain, dyspnea, changes in his bowel/bladder movements, headache, blurred vision, or any other symptoms. Urologic al consultation was sought for the evaluation of the retention of urine and Bhardwaj catheter. H is Bhardwaj was recently changed . He was found to have positive blood cultures, urine cul ture is pending. UA was abnormal. WBC's are elevated 01/03/2022 - urine culture negative, wou nd and blood cultures noted. Renal u/s WNL Patient reports: no urinary pain, no abdominal p ain, no back pain Nursing reports: no urinary pain, no abdominal p ain, no back pain Objective General VS/I O: Last Documented: Result Date Time Pulse Ox 96 01/03 733 B/P 120/72 01/03 733 B/P Mean 88.4 01/03 733 O2 Delivery Nasal cannula 01/03 733 Temp 36.6 01/03 733 Pulse 100 01/03 733 Resp 16 01/03 733 O2 Flow Rate 2 01/03 2000 24 hour I O ending at 0700: 01/03 1900 Intake Total 200.00 480 Output Total 800 1400 Balance -600.00 -920 Intake, Free 80 Water Intake, IV 200.00 Intake, Tube 400 Feeding Output, Urine 800 1400 PATIENT WEIGHT: Weight (lb): Weight (oz): Weight (kg): 100.000 Medications: Active Meds + DC'd Last 24 Hrs Acetaminophen (TYLENOL) 650 MG Q4H PRN PRN PO Dextrose/Water (DEXTROSE 10% IN WATER) 125 ML DIR PRN IV (CKD) Dextrose/Water (DEXTROSE 10% IN WATER) 250 ML DIR PRN IV (CKD) Glucagon (GLUCAGON) 1 MG ASDIR PRN IM Hydromorphone HCl (DILAUDID) 0.5 MG Q4H PRN PRN IV Gabapentin (NEURONTIN) 300 MG BEDTIME PO Piperacillin Sod/Tazobactam Sod (ZOSYN 3.375GM) 3.375 GM Q8H IV Sodium Chloride (SODIUM CHLORIDE 0.9% 100 ML) 1 00 ML Insulin Human Lispro (HUMALOG) 10 UNIT AC BK GRACE SUBQ Furosemide (LASIX) 40 MG DAILY PO Loratadine (CLARITIN) 10 MG DAILY PO Tramadol HCl (ULTRAM) 100 MG Q6H PRN PRN PO Amitriptyline HCl (ELAVIL) 25 MG BEDTIME PO Atorvastatin Calcium (LIPITOR) 80 MG DAILY@2100 PO Ursodiol (ActigalL) 300 MG C BK DIN PO Insulin Human Lispro (HUMALOG) 10 UNIT AC DIN MARR BQ Insulin Human Lispro (HUMALOG) 0 AC HS SUBQ Sterile Water (WATER FOR IRRIGATION) DRESSING CH SHERICE ASDIR PRN IRR Aspirin (ASPIRIN) 81 MG DAILY PO Citalopram Hydrobromide (CeleXA) 20 MG DAILY PO Metoprolol Tartrate (LOPRESSOR) 25 MG DAILY PO Tamsulosin HCl (Flomax 0.4 mg) 0.4 MG DAILY PO Ondansetron HCl (ZOFRAN) 4 MG Q6H PRN PRN IV Dietitian nutrition assessment The data set between the solid lines has been im ported from the dietitian's assessment. BMI Calculated: 26.8 Nutrition related diagnosis: Nutrition diagnosis details: Nutrition problem: Nutrition etiology: Nutrition signs and symptoms: Nutrition prescription: Dietitian name: Assessment completed: Physical Exam General appearance: alert, awake, oriented Head/Eyes: atraumatic, clear cornea, EOMI, normo cephalic, normal conjunctiva/ sclera Neck: full range of motion, non-tender, no bruit /NL carotids Cardiovascular: normal capillary refill, regular rate rhythm, normal heart sounds, BP/pulses equal bilat. Respiratory: clear to auscultation, no distress, no tenderness, aerating well Abdomen: soft, non-tender, no guarding Genitourinary: Genitourinary: urinary catheter in place, good urine output Extremities: moves all, no edema, normal capilla ry refill, normal range of motion Skin: dry, intact, no gross abnormalities, tra l color, L foot wound wrapped Results Findings/Data: Laboratory Tests: 01/03 01/02 01/02 01/02 0731 2011 1535 1110 Chemistry POC Glucose (70 - 110 MG/DL) 209 H 167 H 136 H 248 H Results: labs reviewed, vital signs reviewed Diagnosis, Assessment Plan Free Text A P: Assessment BPH Urinary retention Bhardwaj in situ Bacteremia Leukocytosis Proteinuria Microhematuria WISAM on CKD Plan Bhardwaj recently changed Urine culture negative Renal u/s WNL Continue Flomax Voiding trials once clinically improved outpatient cystoscopy and urodynamics Monitor for hematuria We will follow Heme and lytes per primary team ABX per ID Thank you for this kind consult Electronically Signed by Dima Forbes LINK CUTTER on at 0946 RPT #:[id number] END OF REPORT 2022-01-02 [facility] 22:36:00-00:00 [facility] ([facility]) Hospitalist Progress Note REPORT#:[id number] REPORT STATUS: Signed DATE:01/02/22 TIME: 2235 PATIENT: PEDRO MCGREGOR UNIT #: [id number] ROOM/BED: [place] [address] : 54 AGE: 66 SEX: M ATTEND: Jean-Paul Ward od, MD ADM AUTHOR: Margie Choi DO * ALL edits or amendments must be made on the [email or web address] document * Subjective Chief complaint: reviewed left foot pain bhardwaj in denies any fever, chill, cp Review of Systems Constitutional: Reports: generalized weakness, lethargy. ENT: Denies: nasal congestion, sinus problem. Respiratory: Denies: SOB, wheezing. Cardiovascular: Denies: chest pain, palpitations. GI: Denies: abdominal pain, nausea, vomiting. : Denies: dysuria. Neuro: Denies: confusion, dizziness. Psych: Denies: agitation, anxiety. Objective General VS/I O: Vital Signs: Date Time Temp Pulse Resp B/P B/P Pulse O2 O2 F low FiO2 Mean Ox Delivery Rate 01/02 2213 37.0 93 95 01/02 2010 38.0 92 17 161/53 89.1 94 01/02 1535 36.9 84 18 123/64 83.7 93 01/02 1109 36.9 79 16 116/71 86.4 92 01/02 0757 37.0 92 131/77 94.9 93 01/02 0348 36.9 83 20 130/73 91.9 94 Room air 24 hour I O ending at 0700: 01/02 0700 01/01 1900 Intake Total 100.00 Output Total Balance 100.00 Intake, IV 100.00 PATIENT WEIGHT: Weight (lb): Weight (oz): Weight (kg): 100.000 Medications: Active Meds + DC'd Last 24 Hrs Acetaminophen (TYLENOL) 650 MG Q4H PRN PRN PO Dextrose/Water (DEXTROSE 10% IN WATER) 125 ML DIR PRN IV (CKD) Dextrose/Water (DEXTROSE 10% IN WATER) 250 ML DIR PRN IV (CKD) Glucagon (GLUCAGON) 1 MG ASDIR PRN IM Hydromorphone HCl (DILAUDID) 0.5 MG Q4H PRN PRN IV Gabapentin (NEURONTIN) 300 MG BEDTIME PO Piperacillin Sod/Tazobactam Sod (ZOSYN 3.375GM) 3.375 GM Q8H IV Sodium Chloride (SODIUM CHLORIDE 0.9% 100 ML) 1 00 ML Insulin Human Lispro (HUMALOG) 10 UNIT AC BK GRACE SUBQ Furosemide (LASIX) 40 MG DAILY PO Loratadine (CLARITIN) 10 MG DAILY PO Tramadol HCl (ULTRAM) 100 MG Q6H PRN PRN PO Amitriptyline HCl (ELAVIL) 25 MG BEDTIME PO Atorvastatin Calcium (LIPITOR) 80 MG DAILY@2100 PO Ursodiol (ActigalL) 300 MG C BK DIN PO Insulin Human Lispro (HUMALOG) 10 UNIT AC DIN MARR BQ Insulin Human Lispro (HUMALOG) 0 AC HS SUBQ Sterile Water (WATER FOR IRRIGATION) DRESSING CH SHERICE ASDIR PRN IRR Aspirin (ASPIRIN) 81 MG DAILY PO Citalopram Hydrobromide (CeleXA) 20 MG DAILY PO Metoprolol Tartrate (LOPRESSOR) 25 MG DAILY PO Tamsulosin HCl (Flomax 0.4 mg) 0.4 MG DAILY PO Ondansetron HCl (ZOFRAN) 4 MG Q6H PRN PRN IV Physical Exam Head/Eyes: atraumatic, EOMI ENT: moist mucosal membranes Neck: full range of motion, normal thyroid Cardiovascular: normal heart sounds, regular rat e rhythm Respiratory: aerating well, clear to auscultatio n, symmetric expansion Abdomen: non-tender, normal bowel sounds, soft Genitourinary: urinary catheter Extremities: no clubbing, no cyanosis, left foot : drssing C/D/I Neuro/METAL WELDER: alert, oriented X 3 Psychiatry: normal affect, normal mood Results Findings/Data: Laboratory Tests 01/02 1535 1110 0755 0400 Chemistry Sodium (134 - 147 mEq/L) 133 L Potassium (3.4 - 5.0 mEq/L) 4.1 Chloride (100 - 108 mEq/L) 96 L Carbon Dioxide (21 - 33 mEq/l) 28 Anion Gap (0 - 20) 14 BUN (7 - 18 mg/dL) 14 Creatinine (0.6 - 1.3 mg/dL) 1.1 Glomerular Filtr Rate (80 - 90) 73.6 L Glucose (70 - 110 mg/dL) 181 H POC Glucose (70 - 110 MG/DL) 167 H 136 H 248 H 206 H Calcium (8.0 - 10.5 mg/dL) 9.3 Phosphorus (2.5 - 4.9 MG/DL) 3.8 Magnesium (1.80 - 2.40 mg/dL) 2.07 Laboratory Tests 01/02 0400 Hematology WBC (4.5 - 11.0 x10 3/uL) 11.3 H RBC (4.00 - 5.60 x10 6/uL) 3.33 L Hgb (12.5 - 16.9 g/dL) 9.5 L Hct (37.5 - 50.7 %) 30.3 L MCV (81.0 - 99.0 fL) 91.0 MCH (27.0 - 33.0 pg) 28.5 MCHC (33.0 - 37.0 g/dL) 31.4 L RDW (11.5 - 14.5 %) 15.5 H Plt Count (150 - 400 x10 3/uL) 728 H MPV (7.0 - 9.0 fL) 11.3 H Neut % (Auto) (56.0 - 77.0 %) 60.4 Lymph % (Auto) (14.0 - 32.0 %) 24.6 Kern % (Auto) (4.8 - 9.0 %) 11.2 H Eos % (Auto) (0.3 - 3.7 %) 2.4 Baso % (Auto) (0.0 - 2.0 %) 0.6 Neut # (Auto) (2.0 - 7.6 x10 3/uL) 6.83 Lymph # (Auto) (1.0 - 3.8 x10 3/uL) 2.79 Kern # (Auto) (0.1 - 0.8 x10 3/uL) 1.27 H Eos # (Auto) (0.0 - 0.2 x10 3/uL) 0.27 H Baso # (Auto) (0.0 - 0.2 x10 3/uL) 0.07 Abs Immat Gran (auto) (0.00 - 0.03 x10 3/uL) 0. 09 H Add Manual Diff NO Immature Gran % (0.0 - 2.0 %) 0.8 Nucleated RBC % (0 - 0 %) 0.0 Nucleated RBCs # (Man) (0.0 - 0.1 x10 3/uL) 0.0 0 Diagnosis, Assessment Plan Free Text DxA P Notes Free text DxA P notes: - recurrent Enterococcal Ivory calis bacteremia, cardiology consult for YOLA to r/o Endocarditis - Sepsis POA due to left foot OM. - Left Foot OM failed Outpt treatment. - Non healing wound of Left foot. - Hyponatremia - Left foot pain due to OM. - HX of HTN, HLD, DM type II, Liver disa se, Heart disease, diabetes neuropathy - Over weight 26.8. - On bhardwaj 2/2 non weight bearing of foot - UA positive for LE, UTI - Hypomagnesemia-replaced - PVD Plan: PAIN CONTROL IV abx per ID f/u Cardiology Vascular sx CONSULT Appreciated Podiatry for Left foot wound. ID consult appreciated for left foot OM. Pain meds. Antiemetics. Glycemic control, accu check AC HS, ISS. Diabetic diet. Follow labs and replace as needed. Continue home meds. Monitor. Electronically Signed by Margie Choi DO on 12/15 at 2240 RPT #:[id number] END OF REPORT 2022-01-02 [facility] 10:44:00-00:00 [facility] ([facility]) Urology Progress Note REPORT#:[id number] REPORT STATUS: Signed DATE:01/02/22 TIME: 1044 PATIENT: PEDRO MCGREGOR UNIT #: [id number] ROOM/BED: [address] : 54 AGE: 66 SEX: M ATTEND: Jean-Paul Ward od, MD ADM AUTHOR: Dima Forbes NP * ALL edits or amendments must be made on the el [employer]/computer document * Subjective Chief complaint: URINARY RETENTION HPI: 66-year-old female with a history of hypertensio n, diabetes, hyperlipidemia, osteomyelitis, and CAD admitted for left foot in fection. He has associated generalized weakness, chills, and nausea , vomit ing. He has been on multiple rounds of antibiotics for this infection without relief. He denies chest pain, dyspnea, changes in his bowel/bladder movements, headache, blurred vision, or any other symptoms. Urologic al consultation was sought for the evaluation of the retention of urine and Bhardwaj catheter. H is Bhardwaj was recently changed . He was found to have positive blood cultures, urine cul ture is pending. UA was abnormal. WBC's are elevated 01/02/2022 - urine culture negative, wou nd and blood cultures noted. Renal u/s WNL Patient reports: no complaints, no urinary pain, no abdominal pain Nursing reports: no complaints, no urinary pain, no abdominal pain Objective General VS/I O: Last Documented: Result Date Time Pulse Ox 93 01/02 0757 B/P 131/77 01/02 0757 B/P Mean 94.9 01/02 0757 Temp 37.0 01/02 075 Pulse 92 01/02 0757 O2 Delivery Room air 01/02 0348 Resp 20 01/02 034 O2 Flow Rate 4 12/30 1758 24 hour I O ending at 0700: 01/02 0700 01/01 1900 Intake Total 100.00 Output Total Balance 100.00 Intake, IV 100.00 PATIENT WEIGHT: Weight (lb): Weight (oz): Weight (kg): 100.000 Medications: Active Meds + DC'd Last 24 Hrs Hydromorphone HCl (DILAUDID) 0.5 MG Q4H PRN PRN IV Gabapentin (NEURONTIN) 300 MG BEDTIME PO Vancomycin HCl (VANCOMYCIN HCL) 1,500 MG Q12H IV (CAN) Sodium Chloride (SODIUM CHLORIDE 0.9%) 250 ML Magnesium Sulfate (MAGNESIUM SULFATE 2GM/SWFI 50 ML) 50 ML ONCE ONE IV ( DC) Piperacillin Sod/Tazobactam Sod (ZOSYN 3.375GM) 3.375 GM Q8H IV Sodium Chloride (SODIUM CHLORIDE 0.9% 100 ML) 1 00 ML Insulin Human Lispro (HUMALOG) 10 UNIT AC BK GRACE SUBQ Furosemide (LASIX) 40 MG DAILY PO Loratadine (CLARITIN) 10 MG DAILY PO Tramadol HCl (ULTRAM) 100 MG Q6H PRN PRN PO Amitriptyline HCl (ELAVIL) 25 MG BEDTIME PO Atorvastatin Calcium (LIPITOR) 80 MG DAILY@2100 PO Vancomycin HCl (VANCOMYCIN HCL) 1,000 MG Q12H IV (DC) Sodium Chloride (SODIUM CHLORIDE 0.9%) 250 ML Miscellaneous Information (VANCOMYCIN PHARMACY T O DOSE) 1 EACH ASDIR IV (DC) Ursodiol (ActigalL) 300 MG C BK DIN PO Insulin Human Lispro (HUMALOG) 10 UNIT AC DIN AMRR BQ Insulin Human Lispro (HUMALOG) 0 AC HS SUBQ Sterile Water (WATER FOR IRRIGATION) DRESSING CH SHERICE ASDIR PRN IRR Aspirin (ASPIRIN) 81 MG DAILY PO Citalopram Hydrobromide (CeleXA) 20 MG DAILY PO Metoprolol Tartrate (LOPRESSOR) 25 MG DAILY PO Tamsulosin HCl (Flomax 0.4 mg) 0.4 MG DAILY PO Ondansetron HCl (ZOFRAN) 4 MG Q6H PRN PRN IV Dietitian nutrition assessment The data set between the solid lines has been im ported from the dietitian's assessment. BMI Calculated: 26.8 Nutrition related diagnosis: Nutrition diagnosis details: Nutrition problem: Nutrition etiology: Nutrition signs and symptoms: Nutrition prescription: Dietitian name: Assessment completed: Physical Exam General appearance: alert, awake, oriented Head/Eyes: atraumatic, clear cornea, EOMI, normo cephalic, normal conjunctiva/ sclera Neck: full range of motion, non-tender, no bruit /NL carotids Cardiovascular: normal capillary refill, regular rate rhythm, normal heart sounds, BP/pulses equal bilat. Respiratory: clear to auscultation, no distress, no tenderness, aerating well Abdomen: soft, non-tender, no guarding Genitourinary: Genitourinary: urinary catheter in place, good urine output Extremities: moves all, no edema, normal capilla ry refill, normal range of motion Skin: dry, intact, no gross abnormalities, tra l color, L foot wound wrapped Results Findings/Data: Laboratory Tests: 01/02 01/02 01/01 01/01 01/01 0755 0400 1852 1710 1103 Chemistry Sodium (134 - 147 mEq/L) 133 L Potassium (3.4 - 5.0 mEq/L) 4.1 Chloride (100 - 108 mEq/L) 96 L Carbon Dioxide (21 - 33 mEq/l) 28 Anion Gap (0 - 20) 14 BUN (7 - 18 mg/dL) 14 Creatinine (0.6 - 1.3 mg/dL) 1.1 Glomerular Filtr Rate (80 - 90) 73.6 L Glucose (70 - 110 mg/dL) 181 H POC Glucose (70 - 110 MG/DL) 206 H 183 H 197 H 322 H Calcium (8.0 - 10.5 mg/dL) 9.3 Phosphorus (2.5 - 4.9 MG/DL) 3.8 Magnesium (1.80 - 2.40 mg/dL) 2.07 Hematology WBC (4.5 - 11.0 x10 3/uL) 11.3 H RBC (4.00 - 5.60 x10 6/uL) 3.33 L Hgb (12.5 - 16.9 g/dL) 9.5 L Hct (37.5 - 50.7 %) 30.3 L MCV (81.0 - 99.0 fL) 91.0 MCH (27.0 - 33.0 pg) 28.5 MCHC (33.0 - 37.0 g/dL) 31.4 L RDW (11.5 - 14.5 %) 15.5 H Plt Count (150 - 400 x10 3/uL) 728 H MPV (7.0 - 9.0 fL) 11.3 H Neut % (Auto) (56.0 - 77.0 %) 60.4 Lymph % (Auto) (14.0 - 32.0 %) 24.6 Kern % (Auto) (4.8 - 9.0 %) 11.2 H Eos % (Auto) (0.3 - 3.7 %) 2.4 Baso % (Auto) (0.0 - 2.0 %) 0.6 Neut # (Auto) (2.0 - 7.6 x10 3/uL) 6.83 Lymph # (Auto) (1.0 - 3.8 x10 3/uL) 2.79 Kern # (Auto) (0.1 - 0.8 x10 3/uL) 1.27 H Eos # (Auto) (0.0 - 0.2 x10 3/uL) 0.27 H Baso # (Auto) (0.0 - 0.2 x10 3/uL) 0.07 Abs Immat Gran (auto) (0.00 - 0.03 0.09 H x10 3/uL) Add Manual Diff NO Immature Gran % (0.0 - 2.0 %) 0.8 Nucleated RBC % (0 - 0 %) 0.0 Nucleated RBCs # (Man) (0.0 - 0.1 0.00 x10 3/uL) Recent Impressions: ULTRASOUND - DOP ART SGL LEVEL MALIK 01/01 1206 Report Impression - Status: SIGNED Entered: 01/01/2022 1354 IMPRESSION: Monophasic waveforms in the left lower extremity . Impression By: Roberta Samayoa ULTRASOUND - US RETROPERITONEAL COM 01/01 1207 Report Impression - Status: SIGNED Entered: 01/01/2022 1248 IMPRESSION: No acute abnormalities of the kidneys. Impression By: Cassy Elena M.D. Results: labs reviewed, vital signs reviewed Diagnosis, Assessment Plan Free Text A P: Assessment BPH Urinary retention Bhardwaj in situ Bacteremia Leukocytosis Proteinuria Microhematuria WISAM on CKD Plan Bhardwaj recently changed Urine culture negative Renal u/s WNL Continue Flomax Voiding trials once clinically improved outpatient cystoscopy and urodynamics Monitor for hematuria We will follow Luis and lyn per primary team ABX per ID Thank you for this kind consult Electronically Signed by Dima Forbes LINK CUTTER on at 1046 RPT #:[id number] END OF REPORT 2022-01-02 [facility] 10:33:00-00:00 [facility] ([facility]) Podiatry Progress Note REPORT#:[id number] REPORT STATUS: Signed DATE:01/02/22 TIME: 1033 PATIENT: PEDRO MCGREGOR UNIT #: [id number] ROOM/BED: [place] [address] : 54 AGE: 66 SEX: M ATTEND: Jean-Paul Ward od, MD ADM AUTHOR: Jamar Yates DPM * ALL edits or amendments must be made on the [email or web address] document * Subjective Chief complaint: left foot infection HPI: pt is with two family members. history from patient and family and from chart. 66-year-old female with a history of hypertensio n, diabetes, hyperlipidemia, osteomyelitis, and CAD who is here today for his left foot infection. He has been admitted to [facility] hospital system multiple t imes for this complaint. He normallly sees Dr. wharton but we are covering for today. Was at [facility] recently. He has seen Dr. Wharton, and instructed to come to emergency room for further evaluation and treatment. He has associated gene ralized weakness, chills, and nausea/vomiting. He has been on multiple rounds of antibiotics for this infection without relief. He denies ches t pain, dyspnea, changes in his bowel/ bladder movements, headache, blurred vision, or any other symptoms. left foot has been draining pus. he says nothing wrong with right foot. only left foot evaluated today. Patient reports: no abdominal pain, no chest blake n, no cough, no diarrhea, no fever, no nausea Objective General VS: Last Documented: Result Date Time Pulse Ox 93 01/02 0757 B/P 131/77 01/02 0757 B/P Mean 94.9 01/02 0757 Temp 98.6 01/02 0757 Pulse 92 01/02 0757 O2 Delivery Room air 01/02 034 Resp 20 01/02 034 O2 Flow Rate 4 12/30 1758 PATIENT WEIGHT: Weight (lb): Weight (oz): Weight (kg): 100.000 Medications: Active Meds + DC'd Last 24 Hrs Hydromorphone HCl (DILAUDID) 0.5 MG Q4H PRN PRN IV Gabapentin (NEURONTIN) 300 MG BEDTIME PO Vancomycin HCl (VANCOMYCIN HCL) 1,500 MG Q12H IV (CAN) Sodium Chloride (SODIUM CHLORIDE 0.9%) 250 ML Magnesium Sulfate (MAGNESIUM SULFATE 2GM/SWFI 50 ML) 50 ML ONCE ONE IV ( DC) Piperacillin Sod/Tazobactam Sod (ZOSYN 3.375GM) 3.375 GM Q8H IV Sodium Chloride (SODIUM CHLORIDE 0.9% 100 ML) 1 00 ML Insulin Human Lispro (HUMALOG) 10 UNIT AC BK GRACE SUBQ Furosemide (LASIX) 40 MG DAILY PO Loratadine (CLARITIN) 10 MG DAILY PO Tramadol HCl (ULTRAM) 100 MG Q6H PRN PRN PO Amitriptyline HCl (ELAVIL) 25 MG BEDTIME PO Atorvastatin Calcium (LIPITOR) 80 MG DAILY@2100 PO Vancomycin HCl (VANCOMYCIN HCL) 1,000 MG Q12H IV (DC) Sodium Chloride (SODIUM CHLORIDE 0.9%) 250 ML Miscellaneous Information (VANCOMYCIN PHARMACY T O DOSE) 1 EACH ASDIR IV (DC) Ursodiol (ActigalL) 300 MG C BK DIN PO Insulin Human Lispro (HUMALOG) 10 UNIT AC DIN MARR BQ Insulin Human Lispro (HUMALOG) 0 AC HS SUBQ Sterile Water (WATER FOR IRRIGATION) DRESSING CH SHERICE ASDIR PRN IRR Aspirin (ASPIRIN) 81 MG DAILY PO Citalopram Hydrobromide (CeleXA) 20 MG DAILY PO Metoprolol Tartrate (LOPRESSOR) 25 MG DAILY PO Tamsulosin HCl (Flomax 0.4 mg) 0.4 MG DAILY PO Ondansetron HCl (ZOFRAN) 4 MG Q6H PRN PRN IV I O: 24 hour I O ending at 0700: 01/02 0700 01/01 1900 Intake Total 100.00 Output Total Balance 100.00 Intake, IV 100.00 Dietitian nutrition assessment The data set between the solid lines has been im ported from the dietitian's assessment. BMI Calculated: 26.8 Nutrition related diagnosis: Nutrition diagnosis details: Nutrition problem: Nutrition etiology: Nutrition signs and symptoms: Nutrition prescription: Dietitian name: Assessment completed: Physical Exam General appearance: alert, awake, oriented Wound/incision: Location: left foot Site condition: drainage, dressing saturated, e cchymosis, erythema, eschar, necrotic tissue, odor, left foot dp/pt 1/4 light touch decreased. wound anterior left ankle. seropurulent imelda inage. ulcer extensive from medial left hindfoot to medial left midfoot. into marr b q layer. no ability to invert the left foot. foot is deformed. it is severely everted. no lymphang itis. LE vascular pulse assess: 1+ L posterior tibialis, 1+ L dorsalis pedis Results Findings/Data: Laboratory Tests: 01/02 01/02 01/01 01/01 01/01 0755 0400 1852 1710 1103 Chemistry Sodium (134 - 147 mEq/L) 133 L Potassium (3.4 - 5.0 mEq/L) 4.1 Chloride (100 - 108 mEq/L) 96 L Carbon Dioxide (21 - 33 mEq/l) 28 Anion Gap (0 - 20) 14 BUN (7 - 18 mg/dL) 14 Creatinine (0.6 - 1.3 mg/dL) 1.1 Glomerular Filtr Rate (80 - 90) 73.6 L Glucose (70 - 110 mg/dL) 181 H POC Glucose (70 - 110 MG/DL) 206 H 183 H 197 H 322 H Calcium (8.0 - 10.5 mg/dL) 9.3 Phosphorus (2.5 - 4.9 MG/DL) 3.8 Magnesium (1.80 - 2.40 mg/dL) 2.07 Hematology WBC (4.5 - 11.0 x10 3/uL) 11.3 H RBC (4.00 - 5.60 x10 6/uL) 3.33 L Hgb (12.5 - 16.9 g/dL) 9.5 L Hct (37.5 - 50.7 %) 30.3 L MCV (81.0 - 99.0 fL) 91.0 MCH (27.0 - 33.0 pg) 28.5 MCHC (33.0 - 37.0 g/dL) 31.4 L RDW (11.5 - 14.5 %) 15.5 H Plt Count (150 - 400 x10 3/uL) 728 H MPV (7.0 - 9.0 fL) 11.3 H Neut % (Auto) (56.0 - 77.0 %) 60.4 Lymph % (Auto) (14.0 - 32.0 %) 24.6 Kern % (Auto) (4.8 - 9.0 %) 11.2 H Eos % (Auto) (0.3 - 3.7 %) 2.4 Baso % (Auto) (0.0 - 2.0 %) 0.6 Neut # (Auto) (2.0 - 7.6 x10 3/uL) 6.83 Lymph # (Auto) (1.0 - 3.8 x10 3/uL) 2.79 Kern # (Auto) (0.1 - 0.8 x10 3/uL) 1.27 H Eos # (Auto) (0.0 - 0.2 x10 3/uL) 0.27 H Baso # (Auto) (0.0 - 0.2 x10 3/uL) 0.07 Abs Immat Gran (auto) (0.00 - 0.03 0.09 H x10 3/uL) Add Manual Diff NO Immature Gran % (0.0 - 2.0 %) 0.8 Nucleated RBC % (0 - 0 %) 0.0 Nucleated RBCs # (Man) (0.0 - 0.1 0.00 x10 3/uL) Recent Impressions: ULTRASOUND - DOP ART SGL LEVEL MALIK 01/01 1206 Report Impression - Status: SIGNED Entered: 01/01/2022 1354 IMPRESSION: Monophasic waveforms in the left lower extremity . Impression By: Roberta Samayoa ULTRASOUND - US RETROPERITONEAL Hithru 01/01 1207 Report Impression - Status: SIGNED Entered: 01/01/2022 1248 IMPRESSION: No acute abnormalities of the kidneys. Impression By: Cassy Elena M.D. Wound culture: ORDERED: WOUND COMMENTS: COMMENTS: left ankle and get get left foot too ACT WKST: MICROCL 12/31/21 #1 Procedure Result Verified Site > WOUND CULTURE Preliminary 01/02/22-0923 ML RARE GRAM NEGATIVE BACILLI REFER TO [id number] FOR IDS Organism 1 ENTEROCOCCUS FAECALIS QUANTITATION MODERATE VRE SCREEN NEGATIVE- NO GROWTH 1. ENTEROCOCCUS FAECALIS Target Route Dose RX AB Cost M.I.C. IQ ------ ----- ------ -- ----- - -------- - ------ AMPICILLIN [facility] PO S <2 IV S GENT SYN SCREEN S <500 PENICILLIN [facility] PO 250-500 MG Q6H S $ 2 IM 0.9-1.2 MIL U Q6-1 S $ IV 1.0-3.0 MIL U Q4H S $ STREP SYN SCRN S <1000 TETRACYCLINE [facility] PO R >8 VANCOMYCIN [facility] IV S 2 Streptomycin Synergy Screen S Gentamicin Synergy Screen S Diagnosis, Assessment Plan Free Text A P: DM with neuropathy PVD wound left ankle ulcer left foot leukocytosis cellulitis left foot IV abx culture left ankle and left foot--results discus sed with patient continue IV abx, ID on board pulse lavage wet to dry dressings left foot xray: no gas. no erosions. offloading boots. arterial studies--discussed with patient. In lig ht of the doppler results, patient will need cardiovascular workup..will pl mg order for Dr. Lopez consult. covering for cheryl/clause. Electronically Signed by Jamar Yates DPM on at 1039 RPT #:[id number] END OF REPORT 2022-01-02 [facility] 09:27:00-00:00 [facility] ([facility]) Pain Management Progress Note REPORT#:[id number] REPORT STATUS: Signed DATE:01/02/22 TIME: 926 PATIENT: PEDRO MCGREGOR UNIT #: [id number] ROOM/BED: [place] [address] : 54 AGE: 66 SEX: M ATTEND: Jean-Paul Ward od, MD ADM AUTHOR: Heriberto Ibrahim * ALL edits or amendments must be made on the [email or web address] document * Subjective Chief Complaint: Left foot pain Comments: Patient seen and examined. Pain is contr olled with medications. No new issues. Review of Systems Free Text ROS Notes Free Text ROS Notes: 12 point ROS reviewed and negative unless stated otherwise Objective General VS/I O: Vital Signs Date Temp Pulse Resp B/P B/P Mean Pulse Ox FiO2 01/01-01/02 36.6-37.0 82-92 - 108-131/62-77 77.0-94.9 92-94 Last Documented: Result Date Time Pulse Ox 93 01/02 0757 B/P 131/77 01/02 0757 B/P Mean 94.9 01/02 0757 Temp 37.0 01/02 0757 Pulse 92 01/02 0757 O2 Delivery Room air 01/02 0348 Resp 20 01/02 0348 O2 Flow Rate 4 12/30 1758 24 hour I O ending at 0700: 01/02 0700 01/01 1900 Intake Total 100.00 Output Total Balance 100.00 Intake, IV 100.00 PATIENT WEIGHT: Weight (lb): Weight (oz): Weight (kg): 100.000 Medications: Active Meds + DC'd Last 24 Hrs Hydromorphone HCl (DILAUDID) 0.5 MG Q4H PRN PRN IV Gabapentin (NEURONTIN) 300 MG BEDTIME PO Vancomycin HCl (VANCOMYCIN HCL) 1,500 MG Q12H IV (CAN) Sodium Chloride (SODIUM CHLORIDE 0.9%) 250 ML Magnesium Sulfate (MAGNESIUM SULFATE 2GM/SWFI 50 ML) 50 ML ONCE ONE IV ( DC) Piperacillin Sod/Tazobactam Sod (ZOSYN 3.375GM) 3.375 GM Q8H IV Sodium Chloride (SODIUM CHLORIDE 0.9% 100 ML) 1 00 ML Insulin Human Lispro (HUMALOG) 10 UNIT AC BK GRACE SUBQ Furosemide (LASIX) 40 MG DAILY PO Loratadine (CLARITIN) 10 MG DAILY PO Tramadol HCl (ULTRAM) 100 MG Q6H PRN PRN PO Amitriptyline HCl (ELAVIL) 25 MG BEDTIME PO Atorvastatin Calcium (LIPITOR) 80 MG DAILY@2100 PO Vancomycin HCl (VANCOMYCIN HCL) 1,000 MG Q12H IV (DC) Sodium Chloride (SODIUM CHLORIDE 0.9%) 250 ML Miscellaneous Information (VANCOMYCIN PHARMACY T O DOSE) 1 EACH ASDIR IV (DC) Ursodiol (ActigalL) 300 MG C BK DIN PO Insulin Human Lispro (HUMALOG) 10 UNIT AC DIN MARR BQ Insulin Human Lispro (HUMALOG) 0 AC HS SUBQ Sterile Water (WATER FOR IRRIGATION) DRESSING CH SHERICE ASDIR PRN IRR Aspirin (ASPIRIN) 81 MG DAILY PO Citalopram Hydrobromide (CeleXA) 20 MG DAILY PO Metoprolol Tartrate (LOPRESSOR) 25 MG DAILY PO Tamsulosin HCl (Flomax 0.4 mg) 0.4 MG DAILY PO Ondansetron HCl (ZOFRAN) 4 MG Q6H PRN PRN IV Physical Exam General appearance: alert, awake, oriented Head/Eyes: atraumatic, EOMI, normocephalic ENT: normal nose, normal sinus, moist mucosal me mbranes Neck: no masses or swelling, supple/no meningism us Cardiovascular: normal capillary refill, regular rate rhythm Respiratory: no distress, aerating well, symmetr ic expansion Abdomen: non-tender, no rebound, no distention Extremities: no edema, no clubbing, no c yanosis, decreased range of motion (of LLE 2/2 pain) Neuro/METAL WELDER: alert, oriented X 3, normal speech Skin: dry, intact, warm Results Findings/data: Laboratory Tests: 01/02 01/02 01/01 01/01 01/01 0755 0400 1852 1710 1103 Chemistry Sodium (134 - 147 mEq/L) 133 L Potassium (3.4 - 5.0 mEq/L) 4.1 Chloride (100 - 108 mEq/L) 96 L Carbon Dioxide (21 - 33 mEq/l) 28 Anion Gap (0 - 20) 14 BUN (7 - 18 mg/dL) 14 Creatinine (0.6 - 1.3 mg/dL) 1.1 Glomerular Filtr Rate (80 - 90) 73.6 L Glucose (70 - 110 mg/dL) 181 H POC Glucose (70 - 110 MG/DL) 206 H 183 H 197 H 322 H Calcium (8.0 - 10.5 mg/dL) 9.3 Phosphorus (2.5 - 4.9 MG/DL) 3.8 Magnesium (1.80 - 2.40 mg/dL) 2.07 Hematology WBC (4.5 - 11.0 x10 3/uL) 11.3 H RBC (4.00 - 5.60 x10 6/uL) 3.33 L Hgb (12.5 - 16.9 g/dL) 9.5 L Hct (37.5 - 50.7 %) 30.3 L MCV (81.0 - 99.0 fL) 91.0 MCH (27.0 - 33.0 pg) 28.5 MCHC (33.0 - 37.0 g/dL) 31.4 L RDW (11.5 - 14.5 %) 15.5 H Plt Count (150 - 400 x10 3/uL) 728 H MPV (7.0 - 9.0 fL) 11.3 H Neut % (Auto) (56.0 - 77.0 %) 60.4 Lymph % (Auto) (14.0 - 32.0 %) 24.6 Kern % (Auto) (4.8 - 9.0 %) 11.2 H Eos % (Auto) (0.3 - 3.7 %) 2.4 Baso % (Auto) (0.0 - 2.0 %) 0.6 Neut # (Auto) (2.0 - 7.6 x10 3/uL) 6.83 Lymph # (Auto) (1.0 - 3.8 x10 3/uL) 2.79 Kern # (Auto) (0.1 - 0.8 x10 3/uL) 1.27 H Eos # (Auto) (0.0 - 0.2 x10 3/uL) 0.27 H Baso # (Auto) (0.0 - 0.2 x10 3/uL) 0.07 Abs Immat Gran (auto) (0.00 - 0.03 0.09 H x10 3/uL) Add Manual Diff NO Immature Gran % (0.0 - 2.0 %) 0.8 Nucleated RBC % (0 - 0 %) 0.0 Nucleated RBCs # (Man) (0.0 - 0.1 0.00 x10 3/uL) Microbiology: Date/Time Procedure - Status Source Growth 01/02 0500 Blood Culture - ORD BLOOD 01/02 0500 Blood Culture - ORD BLOOD Recent Impressions: ULTRASOUND - DOP ART SGL LEVEL MALIK 01/01 1206 Report Impression - Status: SIGNED Entered: 01/01/2022 1354 IMPRESSION: Monophasic waveforms in the left lower extremity . Impression By: Roberta Samayoa ULTRASOUND - US RETROPERITONEAL COM 01/01 1207 Report Impression - Status: SIGNED Entered: 01/01/2022 1248 IMPRESSION: No acute abnormalities of the kidneys. Impression By: SegundoABErnestina - Abram Elena M.D. Results: labs reviewed, vital signs stable Diagnosis, Assessment Plan Free text A P: Pedro Mcgregor is a 66yo male with PMH of DM II, HTN, CAD, HLD, and diabetic ulcers that was admitted with a left foot infection. 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 Dilaudid 0.5mg IV Q4hrs PRN severe pain Tramadol 100mg PO Q6hrs PRN moderate pain Gabapentin 300mg PO QHS for neuropathic pain Left foot infection - abx, podiatry following, a mputation recommended per vascular surgery DM - SSI HLD - Lipitor HTN - Metoprolol BPH - Flomax CAD - ASA 81mg Please hold all narcotics for SBP < 90mm hg, Respiratory rate <8bpm, or altered mentation. Please call with any questions or concerns Thank you for allowing me to participate in this patient's care. Plan of care discussed with Dr. Posada and Dr. Felipe kumar, patient, primary team, and RN. All questions answered. Patient agrees w ith above plan of care. All diagnostic studies, ASSISTANT CHIEF TRAIN DISPATCHER, and labs in the pas t 24 hours reviewed and interpreted with Dr. Posada and Dr. Carter. [place] ASSISTANT CHIEF TRAIN DISPATCHER verified 12/31/21 Electronically Signed by Heriberto Ibrahim on 12/15 at 1427 Electronically Signed by Kanwal Carter DO on 1 03/04/21 at 1656 [facility] #:[id number] END OF REPORT 2022-01-01 [facility] 16:13:00-00:00 [facility] ([facility] Hospitalist Progress Note REPORT#:[id number] REPORT STATUS: Signed DATE:01/01/22 TIME: 1613 PATIENT: PEDRO MCGREGOR UNIT #: [id number] ROOM/BED: [place] [address] : 54 AGE: 66 SEX: M ATTEND: Max Ward MD ADM AUTHOR: Margie Choi DO * ALL edits or amendments must be made on the Material [employer]/computer document * Subjective Chief complaint: left foot pain denies any fever, chill, cp Review of Systems Constitutional: Reports: generalized weakness. Denies: chills, f ever. Respiratory: Denies: SOB, wheezing. Cardiovascular: Denies: chest pain, orthopnea, palpitations. GI: Denies: abdominal pain, nausea, vomiting. : Denies: dysuria, flank pain, frequency. Neuro: Denies: confusion, dizziness. Psych: Denies: agitation, anxiety. Objective General VS/I O: Vital Signs: Date Time Temp Pulse Resp B/P B/P Pulse O2 O2 F low FiO2 Mean Ox Delivery Rate 01/01 1104 36.8 82 15 108/62 77.0 92 Room air 01/01 0759 37.0 98 15 172/83 112.4 97 Room air 01/01 0412 37.0 93 20 143/67 92.0 92 Room air 12/31 2304 36.9 96 20 138/60 86.1 93 Room air 12/31 2102 37.3 94 20 152/72 98.6 92 Room air 12/31 1728 37.0 89 14 127/66 86.3 93 24 hour I O ending at 0700: 01/01 0700 12/31 1900 Intake Total 430.00 Output Total 1450 2400 Balance -1020.00 -2400 Intake, IV 280.00 Intake, Oral 150 Output, Urine 1450 2400 PATIENT WEIGHT: Weight (lb): Weight (oz): Weight (kg): 100.000 Medications: Active Meds + DC'd Last 24 Hrs Hydromorphone HCl (DILAUDID) 0.5 MG Q4H PRN PRN IV Gabapentin (NEURONTIN) 300 MG BEDTIME PO Vancomycin HCl (VANCOMYCIN HCL) 1,500 MG Q12H IV (CAN) Sodium Chloride (SODIUM CHLORIDE 0.9%) 250 ML Piperacillin Sod/Tazobactam Sod (ZOSYN 3.375GM) 3.375 GM Q8H IV Sodium Chloride (SODIUM CHLORIDE 0.9% 100 ML) 1 00 ML Insulin Human Lispro (HUMALOG) 10 UNIT AC BK GRACE SUBQ Furosemide (LASIX) 40 MG DAILY PO Loratadine (CLARITIN) 10 MG DAILY PO Tramadol HCl (ULTRAM) 100 MG Q6H PRN PRN PO Amitriptyline HCl (ELAVIL) 25 MG BEDTIME PO Atorvastatin Calcium (LIPITOR) 80 MG DAILY@2100 PO Vancomycin HCl (VANCOMYCIN HCL) 1,000 MG Q12H IV (DC) Sodium Chloride (SODIUM CHLORIDE 0.9%) 250 ML Miscellaneous Information (VANCOMYCIN PHARMACY T O DOSE) 1 EACH ASDIR IV (DC) Ursodiol (ActigalL) 300 MG C BK DIN PO Insulin Human Lispro (HUMALOG) 10 UNIT AC DIN MARR BQ Insulin Human Lispro (HUMALOG) 0 AC HS SUBQ Sterile Water (WATER FOR IRRIGATION) DRESSING CH SHERICE ASDIR PRN IRR Aspirin (ASPIRIN) 81 MG DAILY PO Citalopram Hydrobromide (CeleXA) 20 MG DAILY PO Metoprolol Tartrate (LOPRESSOR) 25 MG DAILY PO Tamsulosin HCl (Flomax 0.4 mg) 0.4 MG DAILY PO Morphine Sulfate (morphine SULFATE) 2 MG Q4H PRN PRN IV (DC) Morphine Sulfate (morphine SULFATE) 4 MG Q4H PRN PRN IV (DC) Ondansetron HCl (ZOFRAN) 4 MG Q6H PRN PRN IV Physical Exam General appearance: alert, awake, oriented Head/Eyes: atraumatic, EOMI ENT: moist mucosal membranes Neck: full range of motion, normal thyroid Cardiovascular: normal heart sounds, regular rat e rhythm Respiratory: aerating well, clear to auscultatio n, symmetric expansion Abdomen: non-tender, normal bowel sounds, soft Genitourinary: urinary catheter Extremities: no clubbing, no cyanosis, left foot : drssing C/D/I Neuro/METAL WELDER: alert, oriented X 3 Psychiatry: normal affect, normal mood Results Findings/Data: Laboratory Tests 01/01 01/01 01/01 01/01 01/01 1103 0802 0350 0350 0350 Chemistry Sodium (134 - 147 mEq/L) 134 Potassium (3.4 - 5.0 mEq/L) 4.1 Chloride (100 - 108 mEq/L) 98 L Carbon Dioxide (21 - 33 mEq/l) 28 Anion Gap (0 - 20) 12 BUN (7 - 18 mg/dL) 13 Creatinine (0.6 - 1.3 mg/dL) 1.0 Glomerular Filtr Rate (80 - 90) 82.5 Glucose (70 - 110 mg/dL) 202 H POC Glucose (70 - 110 MG/DL) 322 H 212 H Hemoglobin A1c (4.8 - 6.0 %A1C) 8.8 H Calcium (8.0 - 10.5 mg/dL) 9.4 Magnesium (1.80 - 2.40 mg/dL) 1.73 L C-Reactive Protein (<10.0 mg/L) 199.0 H 12/31 12/31 2058 1722 Chemistry POC Glucose (70 - 110 MG/DL) 199 H 282 H Laboratory Tests 01/01 01/01 0350 0350 Hematology WBC (4.5 - 11.0 x10 3/uL) 11.2 H RBC (4.00 - 5.60 x10 6/uL) 3.16 L Hgb (12.5 - 16.9 g/dL) 9.2 L Hct (37.5 - 50.7 %) 28.2 L MCV (81.0 - 99.0 fL) 89.2 MCH (27.0 - 33.0 pg) 29.1 MCHC (33.0 - 37.0 g/dL) 32.6 L RDW (11.5 - 14.5 %) 15.4 H Plt Count (150 - 400 x10 3/uL) 724 H MPV (7.0 - 9.0 fL) 11.1 H Neut % (Auto) (56.0 - 77.0 %) 64.5 Lymph % (Auto) (14.0 - 32.0 %) 20.6 Kern % (Auto) (4.8 - 9.0 %) 12.6 H Eos % (Auto) (0.3 - 3.7 %) 1.1 Baso % (Auto) (0.0 - 2.0 %) 0.5 Neut # (Auto) (2.0 - 7.6 x10 3/uL) 7.20 Lymph # (Auto) (1.0 - 3.8 x10 3/uL) 2.30 Kern # (Auto) (0.1 - 0.8 x10 3/uL) 1.41 H Eos # (Auto) (0.0 - 0.2 x10 3/uL) 0.12 Baso # (Auto) (0.0 - 0.2 x10 3/uL) 0.06 Abs Immat Gran (auto) (0.00 - 0.03 x10 3/uL) 0. 08 H Add Manual Diff NO Immature Gran % (0.0 - 2.0 %) 0.7 Nucleated RBC % (0 - 0 %) 0.0 Nucleated RBCs # (Man) (0.0 - 0.1 x10 3/uL) 0.0 0 ESR Westergren (0 - 15 mm/hr) 108 H Laboratory Tests 01/01 0350 Urines Urine Color (YEL/STRAW) YELLOW Urine Appearance (CLEAR) SL CLOUDY Urine pH (5.0 - 7.0) 6.0 Ur Specific [place] (1.005 - 1.030) 1.016 Urine Protein (NEGATIVE) 1+ H Urine Glucose (UA) (NEGATIVE) 1+ H Urine Ketones (NEGATIVE) TRACE H Urine Blood (NEGATIVE) 3+ H Urine Nitrite (NEGATIVE) NEGATIVE Urine Bilirubin (NEGATIVE) NEGATIVE Urine Urobilinogen (0.2 - 1.0 mg/dL) 0.2 Ur Leukocyte Esterase (NEGATIVE) 1+ H Urine RBC (0 - 3 RBC/HPF) >50 H Urine WBC (0 - 3 WBC/HPF) >50 H Ur Squamous Epith Cells (NONE SEEN /HPF) 0-5 Urine Bacteria (NONE SEEN /HPF) TRACE Urine Mucus (NONE SEEN /LPF) TRACE Diagnosis, Assessment Plan Free Text DxA P Notes Free text DxA P notes: - recurrent Enterococcal Ivory calis bacteremia, cardiology consult for YOLA to r/o Endocarditis - Sepsis POA due to left foot OM. - Left Foot OM failed Outpt treatment. - Non healing wound of Left foot. - Hyponatremia-normalizes - Left foot pain due to OM. - HX of HTN, HLD, DM type II, Liver disa se, Heart disease, diabetes neuropathy - Over weight 26.8. - On bhardwaj 2/2 non weight bearing of foot - UA positive for LE - Hypomagnesemia-replaced - PVD Plan: PAIN CONTROL IV abx per ID f/u Cardiology and Vascular sx Podiatry consult for Left foot wound. ID consult appreciated for left foot OM. Pain meds. Antiemetics. Glycemic control, accu check AC HS, ISS. Diabetic diet. Follow labs and replace as needed. Continue home meds. Monitor. Electronically Signed by Margie Choi DO on 12/14 11/04 at 1629 RPT #:[id number] END OF REPORT 2022-01-01 [facility] 13:07:00-00:00 [facility]) Vascular Surgery Consult Note REPORT#:[id number] REPORT STATUS: Signed DATE:01/01/22 TIME: 1307 PATIENT: PEDRO MCGREGOR UNIT #: [id number] ROOM/BED: 5506-1 : 54 AGE: 66 SEX: M ATTEND: Jean-Paul Ward od, MD ADM AUTHOR: Adin Lopez MD * ALL edits or amendments must be made on the [employer]/computer document * History of Present Illness Requesting Clinician: Dr. Ward Reason for consult: pad, left foot infection Chief complaint: same HPI: 66-year-old male patient with history of periph eral vascular disease, hypertension, diabetes, hyperlipidemia, osteomye litis, neuropathy and CAD neuropathy presented with left foot infe ction treated recently for complicated gas-forming polymicrobial in fection of the left leg including osteomyelitis and septic arthritis of the left foot and ankle. He has associated generalized weakness, chills, and nausea /vomiting. He denies chest pain, dyspnea, changes in his bowel/bladder movements, headache, blurred v ision, or any other symptoms. His left foot has been draining pus. He was joseph ender multiple times with appropriate antibiotics but was thought to lack source control and was recommended BKA at that time. His wound cultures grew Enterococcus faecalis B fragilis, and gram-negative rods including Prote us per ID note. His blood cultures are now again growing Enteroc occus species. History - Adult longitudinal Past medical history: Reports: Depression/mood disorder, Hypertension. Additional medical history: HTN, HLD, Dm type II, Diabetic foot ulcer, Liver disease Alcohol use: Denies EtOH use Drug use: Denies recreational drugs Smoking status for patients 13 years old or olde r: Never Smoker Medications: Home Medications: Medication Dose/Rte/Freq Days Qty Entered Last Max Daily Dose Reviewed URSODIOL (ACTIGALL) 12/31/21 Strength: 300 MG CAP 1624 AMITRIPTYLINE (ELAVIL) 25 MG PO DAILY 12/31/21 Strength: 25 MG TAB 1624 OMEPRAZOLE ER (PriLOSEC) 40 MG PO DAILY 2 Strength: 40 MG CAP.DR 1624 ENOXAPARIN (LOVENOX) 40 MG SQ DAILY 12/31/21 Strength: 40 MG/0.4 ML 0012 0045 DISP.SYRIN METOPROLOL TARTRATE 25 MG PO 12/31/21 12/31/21 (LOPRESSOR) ONCE PER DAY 0020 0056 Strength: 25 MG TAB ASPIRIN 81 MG PO DAILY 12/30/21 12/31/21 Strength: 81 MG TAB.CHEW 2348 0043 ATORVASTATIN (LIPITOR) 80 MG PO DAILY 12/30/21 12/31/21 Strength: 80 MG TAB 2349 0043 CITALOPRAM (CeleXA) 40 MG PO DAILY 12/30/21 Strength: 40 MG TAB 2350 0044 INSULIN LISPRO (HumaLOG) 10 UNITS SQ 12/31/21 1 03/02/21 Strength: 100 UNIT/ML VIAL AC BK GRACE 0014 0051 HYDROcodone/APAP 1 TAB PO 12/31/21 12/31/21 (HYDROcodone/APAP 5/325) Q6H PRN PRN PAIN 0015 0047 Strength: 5 MG-325 MG TAB SCALE 7-10 INSULIN GLARGINE 35 UNITS SUBQ 12/31/21 2 (LANTUS SOLOSTAR (15mL)) BEDTIME 16 005 Strength: 100 UNIT/ML (3 ML) PEN.INJCTR TAMSULOSIN ER (FLOMAX) 0.4 MG PO DAILY 12/31/21 12/31/21 Strength: 0.4 MG CAP.SR.24H 0021 0049 INSULIN LISPRO (HumaLOG) 10 UNITS SUBQ 12/31/21 12/31/21 Strength: 100 UNIT/ML VIAL AC DIN 0028 0051 Current Hospital Medications: Anti-Infective Agents Sig/Josefa Start time Last Medication Dose Route Stop Time Status Admin Vancomycin HCl 1,500 MG Q12H 01/01 1800 CAN (VANCOMYCIN HCL) IV 01/08 1759 Sodium Chloride 250 ML (SODIUM CHLORIDE 0.9%) Piperacillin Sod/ 3.375 GM Q8H 01/01 1230 AC Tazobactam Sod IV 01/08 1229 1251 (ZOSYN 3.375GM) Sodium Chloride 100 ML (SODIUM CHLORIDE 0.9% 100 ML) Vancomycin HCl 1,000 MG Q12H 12/31 1845 DC 12/14 9 (VANCOMYCIN HCL) IV 01/28 1844 0553 Sodium Chloride 250 ML (SODIUM CHLORIDE 0.9%) Miscellaneous 1 EACH ASDIR 12/31 1715 DC Information IV 01/30 1714 (VANCOMYCIN PHARMACY TO DOSE) Antihistamine Drugs Sig/Josefa Start time Last Medication Dose Route Stop Time Status Admin Loratadine 10 MG DAILY 01/01 0900 AC 01/01 (CLARITIN) PO 01/31 0859 0904 Autonomic Drugs Sig/Josefa Start time Last Medication Dose Route Stop Time Status Admin Tamsulosin HCl 0.4 MG DAILY 12/31 1245 AC 01/01 (Flomax 0.4 mg) PO 01/30 1244 1024 Cardiovascular Drugs Sig/Josefa Start time Last Medication Dose Route Stop Time Status Admin Atorvastatin Calcium 80 MG DAILY@2100 12/31 210 0 AC 12/31 (LIPITOR) PO 01/30 2059 1945 Metoprolol Tartrate 25 MG DAILY 12/31 1245 AC 1 03/03 (LOPRESSOR) PO 01/30 1244 0906 Central Nervous System Agents Sig/Josefa Start time Last Medication Dose Route Stop Time Status Admin Hydromorphone HCl 0.5 MG Q4H PRN PRN 01/01 2345 AC (DILAUDID) IV 01/11 2343 Gabapentin 300 MG BEDTIME 01/01 2100 AC (NEURONTIN) PO 01/31 2059 Tramadol HCl 100 MG Q6H PRN PRN 01/01 0015 AC 1 03/03 (ULTRAM) PO 01/11 0013 0905 Amitriptyline HCl 25 MG BEDTIME 12/31 2100 AC 12/31 (ELAVIL) PO 01/30 205 1945 Aspirin 81 MG DAILY 12/31 1245 AC 01/01 (ASPIRIN) PO 01/30 1244 0904 Citalopram 20 MG DAILY 12/31 1245 AC 01/01 Hydrobromide PO 01/30 1244 0905 (CeleXA) Morphine Sulfate 2 MG Q4H PRN PRN 12/30 2230 DC 12/31 (morphine SULFATE) IV 01/14 222 1505 Morphine Sulfate 4 MG Q4H PRN PRN 12/30 2230 DC 12/30 (morphine SULFATE) IV 01/14 2227 2317 Electrolytic, Caloric, And Tiesha Sig/Josefa Start time Last Medication Dose Route Stop Time Status Admin Furosemide 40 MG DAILY 01/01 0900 AC 01/01 (LASIX) PO 01/31 0859 0905 Sterile Water See Dose ASDIR PRN 12/31 1315 AC (WATER FOR Insts (1) IRR 01/30 1314 IRRIGATION) Gastrointestinal Drugs Sig/Josefa Start time Last Medication Dose Route Stop Time Status Admin Ursodiol 300 MG C BK DIN 12/31 1700 AC 01/01 (ActigalL) PO 01/30 1659 0906 Ondansetron HCl 4 MG Q6H PRN PRN 12/30 2230 AC 12/30 (ZOFRAN) IV 03/30 2227 2317 Hormones And Synthetic Substit Sig/Josefa Start time Last Medication Dose Route Stop Time Status Admin Insulin Human Lispro 10 UNIT AC BK GRACE 01/01 11 30 AC 01/01 (HUMALOG) SUBQ 01/31 1129 1251 Insulin Human Lispro 10 UNIT AC DIN 12/31 1630 AC 12/31 (HUMALOG) SUBQ 01/30 1629 1727 Insulin Human Lispro 0 AC HS 12/31 1630 AC 12/14 9 (HUMALOG) SUBQ 01/30 1629 1251 Dose Instructions: (1)Sterile Water (WATER FOR IRRIGATION): DRESSING CHANGE Review of Systems Constitutional: Reports: fatigue, generalized weakness. Allergy/Immun: Denies: anaphylaxis, itching, rhinorrhea. ENT: Denies: ear ringing, mouth pain, sinus problem, throat pain. Respiratory: Denies: GIBBS (dyspnea on exer tion), parox nocturnal dyspnea, pleurisy, pleuritic pain, productive cough (sputum). Cardiovascular: Denies: GIBBS (dyspnea on exertion), edema, orthop booker. GI: Denies: anorexia, constipation, GERD, melena, na usea. : Denies: frequency, hematuria, penile lesion, shweta ticular swelling. Endocrine: Denies: heat intolerance, polydipsia, polyuria. Neuro: Denies: change in LOC, focal weakness, headache, seizure. Allergies: Coded Allergies: No Known Allergies (12/30/21) Objective VS/I O: Last Documented: Result Date Time Pulse Ox 92 01/01 1104 B/P 108/62 01/01 1104 B/P Mean 77.0 01/01 1104 O2 Delivery Room air 01/01 1104 Temp 98.2 01/01 1104 Pulse 82 01/01 1104 Resp 15 01/01 1104 O2 Flow Rate 4 12/30 1758 24 hour I O ending at 0700: 01/01 0700 12/31 1900 Intake Total 430.00 Output Total 1450 2400 Balance -1020.00 -2400 Intake, IV 280.00 Intake, Oral 150 Output, Urine 1450 2400 PATIENT WEIGHT: Weight (lb): Weight (oz): Weight (kg): 100.000 General appearance: alert, awake Head/Eyes: atraumatic, normocephalic, EOMI Neck: non-tender, no bruit/NL carotids, no JVD, no lymphadenopathy Cardiovascular: normal capillary refill, regular rate rhythm, normal heart sounds Respiratory: no distress, no tenderness, aeratin g well, symmetric expansion Abdomen/GI: soft, non-tender Extremities: moves all Musculoskeletal: full range of motion, n o CVA tenderness, no midline vertebral tend, no muscle spasm Neuro/METAL WELDER: alert, oriented X 3 Wound/incision: Location: left foot Site condition: drainage, dressing saturated, e cchymosis, erythema, eschar, necrotic tissue, odor, light touch decreased. wo und anterior left ankle. seropurulent drainage. ulcer extensive from medial left hindfoot to medial left midfoot. into sub q layer. foot is deformed. it is severely everted. no lymphangitis. LE vascular pulse assess: 1+ L posterior tibialis, 1+ L dorsalis pedis Findings/Data: Laboratory Tests 01/01 01/01 01/01 01/01 01/01 1103 0802 0350 0350 0350 Chemistry Sodium (134 - 147 mEq/L) 134 Potassium (3.4 - 5.0 mEq/L) 4.1 Chloride (100 - 108 mEq/L) 98 L Carbon Dioxide (21 - 33 mEq/l) 28 Anion Gap (0 - 20) 12 BUN (7 - 18 mg/dL) 13 Creatinine (0.6 - 1.3 mg/dL) 1.0 Glomerular Filtr Rate (80 - 90) 82.5 Glucose (70 - 110 mg/dL) 202 H POC Glucose (70 - 110 MG/DL) 322 H 212 H Hemoglobin A1c (4.8 - 6.0 %A1C) 8.8 H Calcium (8.0 - 10.5 mg/dL) 9.4 Magnesium (1.80 - 2.40 mg/dL) 1.73 L C-Reactive Protein (<10.0 mg/L) 199.0 H 12/31 12/31 2058 1722 Chemistry POC Glucose (70 - 110 MG/DL) 199 H 282 H Laboratory Tests 01/01 01/01 0350 0350 Hematology WBC (4.5 - 11.0 x10 3/uL) 11.2 H RBC (4.00 - 5.60 x10 6/uL) 3.16 L Hgb (12.5 - 16.9 g/dL) 9.2 L Hct (37.5 - 50.7 %) 28.2 L MCV (81.0 - 99.0 fL) 89.2 MCH (27.0 - 33.0 pg) 29.1 MCHC (33.0 - 37.0 g/dL) 32.6 L RDW (11.5 - 14.5 %) 15.4 H Plt Count (150 - 400 x10 3/uL) 724 H MPV (7.0 - 9.0 fL) 11.1 H Neut % (Auto) (56.0 - 77.0 %) 64.5 Lymph % (Auto) (14.0 - 32.0 %) 20.6 Kern % (Auto) (4.8 - 9.0 %) 12.6 H Eos % (Auto) (0.3 - 3.7 %) 1.1 Baso % (Auto) (0.0 - 2.0 %) 0.5 Neut # (Auto) (2.0 - 7.6 x10 3/uL) 7.20 Lymph # (Auto) (1.0 - 3.8 x10 3/uL) 2.30 [place] # (Auto) (0.1 - 0.8 x10 3/uL) 1.41 H Eos # (Auto) (0.0 - 0.2 x10 3/uL) 0.12 Baso # (Auto) (0.0 - 0.2 x10 3/uL) 0.06 Abs Immat Gran (auto) (0.00 - 0.03 x10 3/uL) 0. 08 H Add Manual Diff NO Immature Gran % (0.0 - 2.0 %) 0.7 Nucleated RBC % (0 - 0 %) 0.0 Nucleated RBCs # (Man) (0.0 - 0.1 x10 3/uL) 0.0 0 ESR W[place]gren (0 - 15 mm/hr) 108 H Laboratory Tests 01/01 0350 Urines Urine Color (YEL/STRAW) YELLOW Urine Appearance (CLEAR) SL CLOUDY Urine pH (5.0 - 7.0) 6.0 Ur Specific [place] (1.005 - 1.030) 1.016 Urine Protein (NEGATIVE) 1+ H Urine Glucose (UA) (NEGATIVE) 1+ H Urine Ketones (NEGATIVE) TRACE H Urine Blood (NEGATIVE) 3+ H Urine Nitrite (NEGATIVE) NEGATIVE Urine Bilirubin (NEGATIVE) NEGATIVE Urine Urobilinogen (0.2 - 1.0 mg/dL) 0.2 Ur Leukocyte Esterase (NEGATIVE) 1+ H Urine RBC (0 - 3 RBC/HPF) >50 H Urine WBC (0 - 3 WBC/HPF) >50 H Ur Squamous Epith Cells (NONE SEEN /HPF) 0-5 Urine Bacteria (NONE SEEN /HPF) TRACE Urine Mucus (NONE SEEN /LPF) TRACE Radiology data: Recent Impressions: ULTRASOUND - US RETROPERITONEAL COM 01/01 1207 Report Impression - Status: SIGNED Entered: 01/01/2022 1248 IMPRESSION: No acute abnormalities of the kidneys. Impression By: [id number] - Abram Elena M.D. Diagnosis, Assessment Plan Problem List/A P: 1. Sepsis 2. Osteomyelitis of foot Free Text A P: Patient with failed outpatient and previous inpa tient management of left foot gangrene. Considering degre of ulceration and tissue loss and viability of limb for ambulation, he would likely be best served w ith an amputation. Further recomendations regarding pos iblility of re ascularization pending completion of non-iinvasice arterial studies. Thank you for e consult. at 0737 RPT #:[id number] END OF REPORT 2022-01-01 [facility] 12:29:00-00:00 [facility] ([facility]) Infect Disease Consult Note REPORT#:[id number] REPORT STATUS: Signed DATE:01/01/22 TIME: 1229 PATIENT: PEDRO MCGREGOR UNIT #: [id number] ROOM/BED: [facility] [place] : 54 AGE: 66 SEX: M ATTEND: Jean-Paul Ward od, MD ADM AUTHOR: Enrrique King MD * ALL edits or amendments must be made on the Material Mix/computer document * History of Present Illness Requesting Clinician: DR WARD Reason for consult: FOOT INFECTION Chief complaint: LEFT FOOT INFECTION HPI: This is a 66-year-old male p atient with history of peripheral vascular disease, type 2 diabetes and neuropat hy who has been admitted for a left foot infection. He was admitted earlier this month to [facility] and was found to have a complicated gas-forming polymicrobial in fection of the left leg including osteomyelitis and septic arthritis of the left foot and ankle. His wound cultures grew Ente rococcus faecalis B fragilis, and gram-negative rods including Proteus. He also had Enterococcus faecalis bacteremia in November. He was treated multiple times with appropriate a ntibiotics but was thought to lack source control and was recommended BKA at t hat time. His blood cultures are now again growing Enteroc occus species. History - Adult longitudinal Past medical history: Reports: Depression/mood disorder, Hypertension. Additional medical history: HTN, HLD, Dm type II, Diabetic foot ulcer, Liver disease Alcohol use: Denies EtOH use Drug use: Denies recreational drugs Smoking status for patients 13 years old or olde r: Never Smoker Allergies: Coded Allergies: No Known Allergies (12/30/21) Review of Systems Free Text ROS Notes Free Text ROS Notes: Positive for fever and chill s positive for pain and drainage from the left foot and ankle Otherwise 14 systems are reviewed and negative Objective Physical Exam General appearance: alert, awake Wound/incision: Location: Left foot and ankle ulcers dressing saturated Head/Eyes: atraumatic, clear cornea ENT: moist mucosal membranes, normal dentition Neck: full range of motion, non-tender Cardiovascular: normal heart sounds, regular rat e rhythm Respiratory: clear to auscultation, aerating wel l Abdomen: non-tender, normal bowel sounds Results Findings/Data: Microbiology: 01/01 0350 URINE: Urine Culture - RECD 12/31 1500 ANKLE: Wound Culture - RECD 12/31 1500 FOOT: Wound Culture - RECD 12/31 0550 NASOPHARG: Influenza Virus Type B Ant igen - COMP 12/31 0550 NASOPHARG: Influenza Virus Type A Ant igen - COMP 12/30 1814 BLOOD: Blood Culture - RES ENTEROCOCCUS SPECIES. 12/30 1814 BLOOD: Blood Culture Gram Stain - RES 12/30 1814 BLOOD: Blood Culture - RES ENTEROCOCCUS SPECIES. 12/30 1814 BLOOD: Blood Culture Gram Stain - RES Hematology: 01/01 Hematology WBC (4.5 - 11.0 x10 3/uL) 11.2 H 13.1 H Chemistry: 01/01 Chemistry Creatinine (0.6 - 1.3 mg/dL) 1.0 1.4 H Recent Impressions: RADIOLOGY - XR CHEST 1 V 12/30 1830 Report Impression - Status: SIGNED Entered: 12/30/20211857 IMPRESSION: Left lung base linear atelectasis or scarring. N o acute pulmonary findings. Impression By: [email or web address] - Martin Head M.D. RADIOLOGY - XR FOOT 3 + V LT 12/31 1831 Report Impression - Status: SIGNED Entered: 12/30/20211855 IMPRESSION: 1. Limited study, no acute fracture or dislocati on identified. 2. Diffuse soft tissue swelling with distal plan tar soft tissue ulcer. Impression By: Trell Baker M.D . Microbiology: 01/01 350 URINE: Urine Culture - RECD 12/31 1500 ANKLE: Wound Culture - RECD 12/31 1500 FOOT: Wound Culture - RECD 12/31 0550 NASOPHARG: Influenza Virus Type B Ant igen - COMP 12/31 549 NASOPHARG: Influenza Virus Type A Ant igen - COMP 12/30 1814 BLOOD: Blood Culture - RES ENTEROCOCCUS SPECIES. 12/30 1814 BLOOD: Blood Culture Gram Stain - RES Laboratory Tests 01/01 01/01 01/01 01/01 01/01 1103 0802 0350 0350 0350 Chemistry Sodium (134 - 147 mEq/L) 134 Potassium (3.4 - 5.0 mEq/L) 4.1 Chloride (100 - 108 mEq/L) 98 L Carbon Dioxide (21 - 33 mEq/l) 28 Anion Gap (0 - 20) 12 BUN (7 - 18 mg/dL) 13 Creatinine (0.6 - 1.3 mg/dL) 1.0 Glomerular Filtr Rate (80 - 90) 82.5 Glucose (70 - 110 mg/dL) 202 H POC Glucose (70 - 110 MG/DL) 322 H 212 H Hemoglobin A1c (4.8 - 6.0 %A1C) 8.8 H Calcium (8.0 - 10.5 mg/dL) 9.4 Magnesium (1.80 - 2.40 mg/dL) 1.73 L C-Reactive Protein (<10.0 mg/L) 199.0 H 12/31 172 Chemistry POC Glucose (70 - 110 MG/DL) 199 H 282 H Laboratory Tests 01/01 01/01 0350 0350 Hematology WBC (4.5 - 11.0 x10 3/uL) 11.2 H RBC (4.00 - 5.60 x10 6/uL) 3.16 L Hgb (12.5 - 16.9 g/dL) 9.2 L Hct (37.5 - 50.7 %) 28.2 L MCV (81.0 - 99.0 fL) 89.2 MCH (27.0 - 33.0 pg) 29.1 MCHC (33.0 - 37.0 g/dL) 32.6 L RDW (11.5 - 14.5 %) 15.4 H Plt Count (150 - 400 x10 3/uL) 724 H MPV (7.0 - 9.0 fL) 11.1 H Neut % (Auto) (56.0 - 77.0 %) 64.5 Lymph % (Auto) (14.0 - 32.0 %) 20.6 Kern % (Auto) (4.8 - 9.0 %) 12.6 H Eos % (Auto) (0.3 - 3.7 %) 1.1 Baso % (Auto) (0.0 - 2.0 %) 0.5 Neut # (Auto) (2.0 - 7.6 x10 3/uL) 7.20 Lymph # (Auto) (1.0 - 3.8 x10 3/uL) 2.30 Kern # (Auto) (0.1 - 0.8 x10 3/uL) 1.41 H Eos # (Auto) (0.0 - 0.2 x10 3/uL) 0.12 Baso # (Auto) (0.0 - 0.2 x10 3/uL) 0.06 Abs Immat Gran (auto) (0.00 - 0.03 x10 3/uL) 0. 08 H Add Manual Diff NO Immature Gran % (0.0 - 2.0 %) 0.7 Nucleated RBC % (0 - 0 %) 0.0 Nucleated RBCs # (Man) (0.0 - 0.1 x10 3/uL) 0.0 0 ESR Westergren (0 - 15 mm/hr) 108 H Laboratory Tests 01/01 0350 Urines Urine Color (YEL/STRAW) YELLOW Urine Appearance (CLEAR) SL CLOUDY Urine pH (5.0 - 7.0) 6.0 Ur Specific [place] (1.005 - 1.030) 1.016 Urine Protein (NEGATIVE) 1+ H Urine Glucose (UA) (NEGATIVE) 1+ H Urine Ketones (NEGATIVE) TRACE H Urine Blood (NEGATIVE) 3+ H Urine Nitrite (NEGATIVE) NEGATIVE Urine Bilirubin (NEGATIVE) NEGATIVE Urine Urobilinogen (0.2 - 1.0 mg/dL) 0.2 Ur Leukocyte Esterase (NEGATIVE) 1+ H Urine RBC (0 - 3 RBC/HPF) >50 H Urine WBC (0 - 3 WBC/HPF) >50 H Ur Squamous Epith Cells (NONE SEEN /HPF) 0-5 Urine Bacteria (NONE SEEN /HPF) TRACE Urine Mucus (NONE SEEN /LPF) TRACE Diagnosis, Assessment Plan Free Text DxA P Notes Free text DxA P notes: 1-Recurrent Enterococcus faecalis bacteremia hig h suspicion for endovascular infection including endocarditis 2-Osteomyelitis and septic arthritis of the left foot and ankle 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 11:49:00-00:00 [facility] ([facility]) Podiatry Progress Note REPORT#:[id number] REPORT STATUS: Signed DATE:01/01/22 TIME: 1149 PATIENT: PEDRO MCGREGOR UNIT #: [id number] ROOM/BED: [place] [address] : 54 AGE: 66 SEX: M ATTEND: Jean-Paul Ward od, MD ADM AUTHOR: Jamar Yates DPM * ALL edits or amendments must be made on the el [employer]/computer document * Subjective Chief complaint: left foot infection HPI: pt is with two family members. history from patient and family and from chart. 66-year-old female with a history of hypertensio n, diabetes, hyperlipidemia, osteomyelitis, and CAD who is here today for his left foot infection. He has been admitted to [facility] hospital system multiple t imes for this complaint. He normallly sees Dr. whartno but we are covering for today. Was at [facility] recently. He has seen Dr. Wharton, and instructed to come to emergency room for further evaluation and treatment. He has associated gene ralized weakness, chills, and nausea/vomiting. He has been on multiple rounds of antibiotics for this infection without relief. He denies ches t pain, dyspnea, changes in his bowel/ bladder movements, headache, blurred vision, or any other symptoms. left foot has been draining pus. he says nothing wrong with right foot. only left foot evaluated today. Patient reports: no abdominal pain, no chest blake n, no cough, no diarrhea, no fever, no nausea Objective General VS: Last Documented: Result Date Time Pulse Ox 92 01/01 1104 B/P 108/62 01/01 1104 B/P Mean 77.0 01/01 110 O2 Delivery Room air 01/01 110 Temp 98.2 01/01 1104 Pulse 82 01/01 1104 Resp 15 01/01 1104 O2 Flow Rate 4 12/30 1758 PATIENT WEIGHT: Weight (lb): Weight (oz): Weight (kg): 100.000 Medications: Active Meds + DC'd Last 24 Hrs Hydromorphone HCl (DILAUDID) 0.5 MG Q4H PRN PRN IV Gabapentin (NEURONTIN) 300 MG BEDTIME PO Vancomycin HCl (VANCOMYCIN HCL) 1,500 MG Q12H IV Sodium Chloride (SODIUM CHLORIDE 0.9%) 250 ML Insulin Human Lispro (HUMALOG) 10 UNIT AC BK GRACE SUBQ Furosemide (LASIX) 40 MG DAILY PO Loratadine (CLARITIN) 10 MG DAILY PO Tramadol HCl (ULTRAM) 100 MG Q6H PRN PRN PO Amitriptyline HCl (ELAVIL) 25 MG BEDTIME PO Atorvastatin Calcium (LIPITOR) 80 MG DAILY@2100 PO Vancomycin HCl (VANCOMYCIN HCL) 1,000 MG Q12H IV (DC) Sodium Chloride (SODIUM CHLORIDE 0.9%) 250 ML Miscellaneous Information (VANCOMYCIN PHARMACY T O DOSE) 1 EACH ASDIR IV (CKD) Ursodiol (ActigalL) 300 MG C BK DIN PO Insulin Human Lispro (HUMALOG) 10 UNIT AC DIN MARR BQ Insulin Human Lispro (HUMALOG) 0 AC HS SUBQ Sterile Water (WATER FOR IRRIGATION) DRESSING CH SHERICE ASDIR PRN IRR Aspirin (ASPIRIN) 81 MG DAILY PO Citalopram Hydrobromide (CeleXA) 20 MG DAILY PO Metoprolol Tartrate (LOPRESSOR) 25 MG DAILY PO Tamsulosin HCl (Flomax 0.4 mg) 0.4 MG DAILY PO Morphine Sulfate (morphine SULFATE) 2 MG Q4H PRN PRN IV (DC) Morphine Sulfate (morphine SULFATE) 4 MG Q4H PRN PRN IV (DC) Ondansetron HCl (ZOFRAN) 4 MG Q6H PRN PRN IV I O: 24 hour I O ending at 0700: 01/01 0700 12/31 1900 Intake Total 430.00 Output Total 1450 2400 Balance -1020.00 -2400 Intake, IV 280.00 Intake, Oral 150 Output, Urine 1450 2400 Dietitian nutrition assessment The data set between the solid lines has been im ported from the dietitian's assessment. BMI Calculated: 26.8 Nutrition related diagnosis: Nutrition diagnosis details: Nutrition problem: Nutrition etiology: Nutrition signs and symptoms: Nutrition prescription: Dietitian name: Assessment completed: Physical Exam General appearance: alert, awake, oriented Wound/incision: Location: left foot Site condition: drainage, dressing saturated, e cchymosis, erythema, eschar, necrotic tissue, odor, left foot dp/pt 1/4 light touch decreased. wound anterior left ankle. seropurulent imelda inage. ulcer extensive from medial left hindfoot to medial left midfoot. into marr b q layer. no ability to invert the left foot. foot is deformed. it is severely everted. no lymphang itis. LE vascular pulse assess: 1+ L posterior tibialis, 1+ L dorsalis pedis Results Findings/Data: Laboratory Tests: 01/01 01/01 01/01 01/01 1103 0802 0350 0350 Chemistry POC Glucose (70 - 110 MG/DL) 322 H 212 H Hemoglobin A1c (4.8 - 6.0 %A1C) 8.8 H C-Reactive Protein (<10.0 mg/L) 199.0 H Hematology ESR Westergren (0 - 15 mm/hr) 108 H 01/01 12/31 12/31 0350 2058 1722 Chemistry Sodium (134 - 147 mEq/L) 134 Potassium (3.4 - 5.0 mEq/L) 4.1 Chloride (100 - 108 mEq/L) 98 L Carbon Dioxide (21 - 33 mEq/l) 28 Anion Gap (0 - 20) 12 BUN (7 - 18 mg/dL) 13 Creatinine (0.6 - 1.3 mg/dL) 1.0 Glomerular Filtr Rate (80 - 90) 82.5 Glucose (70 - 110 mg/dL) 202 H POC Glucose (70 - 110 MG/DL) 199 H 282 H Calcium (8.0 - 10.5 mg/dL) 9.4 Magnesium (1.80 - 2.40 mg/dL) 1.73 L Hematology WBC (4.5 - 11.0 x10 3/uL) 11.2 H RBC (4.00 - 5.60 x10 6/uL) 3.16 L Hgb (12.5 - 16.9 g/dL) 9.2 L Hct (37.5 - 50.7 %) 28.2 L MCV (81.0 - 99.0 fL) 89.2 MCH (27.0 - 33.0 pg) 29.1 MCHC (33.0 - 37.0 g/dL) 32.6 L RDW (11.5 - 14.5 %) 15.4 H Plt Count (150 - 400 x10 3/uL) 724 H MPV (7.0 - 9.0 fL) 11.1 H Neut % (Auto) (56.0 - 77.0 %) 64.5 Lymph % (Auto) (14.0 - 32.0 %) 20.6 Kern % (Auto) (4.8 - 9.0 %) 12.6 H Eos % (Auto) (0.3 - 3.7 %) 1.1 Baso % (Auto) (0.0 - 2.0 %) 0.5 Neut # (Auto) (2.0 - 7.6 x10 3/uL) 7.20 Lymph # (Auto) (1.0 - 3.8 x10 3/uL) 2.30 Kern # (Auto) (0.1 - 0.8 x10 3/uL) 1.41 H Eos # (Auto) (0.0 - 0.2 x10 3/uL) 0.12 Baso # (Auto) (0.0 - 0.2 x10 3/uL) 0.06 Abs Immat Gran (auto) (0.00 - 0.03 x10 3/uL) 0. 08 H Add Manual Diff NO Immature Gran % (0.0 - 2.0 %) 0.7 Nucleated RBC % (0 - 0 %) 0.0 Nucleated RBCs # (Man) (0.0 - 0.1 x10 3/uL) 0.0 0 Urines Urine Color (YEL/STRAW) YELLOW Urine Appearance (CLEAR) SL CLOUDY Urine pH (5.0 - 7.0) 6.0 Ur Specific [place] (1.005 - 1.030) 1.016 Urine Protein (NEGATIVE) 1+ H Urine Glucose (UA) (NEGATIVE) 1+ H Urine Ketones (NEGATIVE) TRACE H Urine Blood (NEGATIVE) 3+ H Urine Nitrite (NEGATIVE) NEGATIVE Urine Bilirubin (NEGATIVE) NEGATIVE Urine Urobilinogen (0.2 - 1.0 mg/dL) 0.2 Ur Leukocyte Esterase (NEGATIVE) 1+ H Urine RBC (0 - 3 RBC/HPF) >50 H Urine WBC (0 - 3 WBC/HPF) >50 H Ur Squamous Epith Cells (NONE SEEN /HPF) 0-5 Urine Bacteria (NONE SEEN /HPF) TRACE Urine Mucus (NONE SEEN /LPF) TRACE Diagnosis, Assessment Plan Free Text A P: DM with neuropathy PVD wound left ankle ulcer left foot leukocytosis cellulitis left foot IV abx culture left ankle and left foot--pendig pulse lavage wet to dry dressings left foot xray: no gas. no erosions. offloading boots. arterial studies--pending covering for cheryl/clause. Electronically Signed by Jamar Yates DPM on at 1154 RPT #:[id number] END OF REPORT 2022-01-01 [facility] 11:37:00-00:00 [facility] ([facility]) Pharmacy Prog.Note-Vancomycin REPORT#:[id number] REPORT STATUS: Signed DATE:01/01/22 TIME: 1137 PATIENT: PEDRO MCGREGOR UNIT #: [id number] ROOM/BED: [place] [address] : 54 AGE: 66 SEX: M ATTEND: Max Ward MD ADM AUTHOR: Booker Sanderson [facility] * ALL edits or amendments must be made on the el [employer]ronic/computer document * Vancomycin Vancomycin Medication Therapy Goal: trough: 12-18 mcg/mL Indication for treatment: Osteomyelitis Current therapy: Vancomycin 1,500 mg IV q12h Day of therapy: Weight: Actual weight (kg): 100 VS and I/O: Vital Signs Date Temp Pulse Resp B/P B/P Mean Pulse Ox FiO2 12/30-01/01 97.9-100.4 82-106 14-20 87-172/57-86 67.5-112.4 92-98 72 hours ending at 0700 01/01 0700 12/31 1900 12/31 0700 12/30 1900 12/29 0700 1900 Intake 430.00 110.00 Total Output 1450 2400 1100 Total Balance -1020.00 -2400 -990.00 Intake, IV 280.00 10.00 Intake, 150 100 Oral Number 1 Bowel Movements Output, Emesis Output, 1450 2400 1100 Urine Patient 100 kg Weight Weight Standing scale Measuremen t Method 72 Hour I O Total 01/01 0700 12/31 0700 12/30 0700 Intake Total 430.00 110.00 Output Total 3850 1100 Balance -3420.00 -990.00 Labs: Laboratory Test : 01/01 350 Chemistry BUN (7 - 18 mg/dL) 13 Creatinine (0.6 - 1.3 mg/dL) 1.0 Hematology WBC (4.5 - 11.0 x10 3/uL) 11.2 H Microbiology: 01/01 350 URINE: Urine Culture - RECD 12/31 1500 ANKLE: Wound Culture - RECD 12/31 1500 FOOT: Wound Culture - RECD 12/31 0550 NASOPHARG: Influenza Virus Type B Ant igen - COMP 12/31 549 NASOPHARG: Influenza Virus Type A Ant igen - COMP 12/30 1814 BLOOD: Blood Culture - RES ENTEROCOCCUS SPECIES. 12/30 1814 BLOOD: Blood Culture Gram Stain - RES 12/30 1814 BLOOD: Blood Culture - RES ENTEROCOCCUS SPECIES. 12/30 1814 BLOOD: Blood Culture Gram Stain - RES Treatment plan: consult, change regimen Regimen: HPI: 66-year-old female with a history of hypertension, diabetes, hyperlipidemia , osteomyelitis, and CAD who is here tod ay for his left foot infection. He has been on multiple rounds of antibiotics for this infection without relief. Pharmacy consulted to manage vancomycin. Consulting Provider: Enrrique King MD Indication: Osteomyelitis Goal: trough 12-18 mcg/mL 01/01 A/P: * Tmax: 98.6 (afebrile), WBC : 11.2 (trending down), ESR: 108 mm/hr, CRP: 199 mg/ L * BUN/SCr: 13/1.0, CrCl: 101 mL/min (per ABW), U OP: 3,850 mL/24 hrs * Micro: 12/30 BloodCx - Enterococcus species (2 samples, identification and susceptibilities pending), 12/31 Nasopha ryngeal swab - negative for influenza, 12/31 WoundCx (left ankle/foot) - pending, 01/01 UrineCx - pending * Imaging: unremarkable * Assessment: Day 2 of . P atient received vancomycin 1,000 mg (10 mg/kg) IV x1 in the ED on 12/30 and was subsequently initiate d on a maintenance regimen of vancomycin 1,000 mg IV q12h on 12/31. Of note, patient has optimal renal fx and likely requires higher dosin g to achieve therapeutic levels for an indication of OM. * Plan: Pharmacy will modify the current dose to 1,500 mg (15 mg/kg) IV q12h. Will obtain a trough level p rior to the third dose of this regimen (not ordered) . Goal: 12-18 mcg/mL. If renal fx/patient condit ion remains stable, will transition to AUC monitoring. Electronically Signed by Booker Sanderson [facility] on at 1138 RPT #:[id number] END OF REPORT 2022-01-01 [facility] 10:25:00-00:00 [facility] ([facility]) Urology Consult Note REPORT#:[id number] REPORT STATUS: Signed DATE:01/01/22 TIME: 1025 PATIENT: PEDRO MCGREGOR UNIT #: [id number] ROOM/BED: 5506-1 : 54 AGE: 66 SEX: M ATTEND: Jean-Paul Ward od, MD ADM AUTHOR: Dima Forbes NP * ALL edits or amendments must be made on the el [employer]/computer document * History of Present Illness HPI Requesting clinician: ED DEE Reason for consult: URINARY RETENTION Chief complaint: URINARY RETENTION PCP: PCP: Hayden Yates DO HPI: 66-year-old female with a history of hypertensio n, diabetes, hyperlipidemia, osteomyelitis, and CAD admitted for left foot in fection. He has associated generalized weakness, chills, and nausea , vomit ing. He has been on multiple rounds of antibiotics for this infection without relief. He denies chest pain, dyspnea, changes in his bowel/bladder movements, headache, blurred vision, or any other symptoms. Urologic al consultation was sought for the evaluation of the retention of urine and Bhardwaj catheter. H is Bhardwaj was recently changed . He was found to have positive blood cultures, urine cul ture is pending. UA was abnormal. WBC's are elevated History Past medical history: Reports: Depression/mood disorder, Hypertension. Additional medical history: HTN, HLD, Dm type II, Diabetic foot ulcer, Liver disease Alcohol use: Denies EtOH use Drug use: Denies recreational drugs Smoking status for patients 13 years old or olde r: Never Smoker Allergies: Coded Allergies: No Known Allergies (12/30/21) Objective VS/I O: Last Documented: Result Date Time Pulse Ox 97 01/01 759 B/P 172/83 01/01 759 B/P Mean 112.4 01/01 075 O2 Delivery Room air 01/01 759 Temp 37.0 01/01 759 Pulse 98 01/01 759 Resp 15 01/01 759 O2 Flow Rate 4 12/30 1758 24 hour I O ending at 0700: 01/01 0700 12/31 1900 Intake Total 430.00 Output Total 1450 2400 Balance -1020.00 -2400 Intake, IV 280.00 Intake, Oral 150 Output, Urine 1450 2400 PATIENT WEIGHT: Weight (lb): Weight (oz): Weight (kg): 100.000 General appearance: alert, awake, oriented Head/Eyes: atraumatic, clear cornea, EOMI, normo cephalic, normal conjunctiva/ sclera Neck: full range of motion, non-tender, no bruit /NL carotids Cardiovascular: normal capillary refill, regular rate rhythm, normal heart sounds, BP/pulses equal bilat. Respiratory: clear to auscultation, no distress, no tenderness, aerating well Abdomen: soft, non-tender, no guarding Genitourinary: Genitourinary: urinary catheter in place, good urine output Extremities: moves all, no edema, normal capilla ry refill, normal range of motion Skin: dry, intact, no gross abnormalities, tra l color, L foot wound wrapped Results Findings/Data: Laboratory Tests: 01/01 01/01 01/01 0802 0350 0350 Chemistry POC Glucose (70 - 110 MG/DL) 212 H Hemoglobin A1c (4.8 - 6.0 %A1C) 8.8 H C-Reactive Protein (<10.0 mg/L) 199.0 H Hematology ESR Westergren (0 - 15 mm/hr) 108 H 01/01 12/31 12/31 12/31 0350 2058 1722 1136 Chemistry Sodium (134 - 147 mEq/L) 134 Potassium (3.4 - 5.0 mEq/L) 4.1 Chloride (100 - 108 mEq/L) 98 L Carbon Dioxide (21 - 33 mEq/l) 28 Anion Gap (0 - 20) 12 BUN (7 - 18 mg/dL) 13 Creatinine (0.6 - 1.3 mg/dL) 1.0 Glomerular Filtr Rate (80 - 90) 82.5 Glucose (70 - 110 mg/dL) 202 H POC Glucose (70 - 110 MG/DL) 199 H 282 H 276 H Calcium (8.0 - 10.5 mg/dL) 9.4 Magnesium (1.80 - 2.40 mg/dL) 1.73 L Hematology WBC (4.5 - 11.0 x10 3/uL) 11.2 H RBC (4.00 - 5.60 x10 6/uL) 3.16 L Hgb (12.5 - 16.9 g/dL) 9.2 L Hct (37.5 - 50.7 %) 28.2 L MCV (81.0 - 99.0 fL) 89.2 MCH (27.0 - 33.0 pg) 29.1 MCHC (33.0 - 37.0 g/dL) 32.6 L RDW (11.5 - 14.5 %) 15.4 H Plt Count (150 - 400 x10 3/uL) 724 H MPV (7.0 - 9.0 fL) 11.1 H Neut % (Auto) (56.0 - 77.0 %) 64.5 Lymph % (Auto) (14.0 - 32.0 %) 20.6 Kern % (Auto) (4.8 - 9.0 %) 12.6 H Eos % (Auto) (0.3 - 3.7 %) 1.1 Baso % (Auto) (0.0 - 2.0 %) 0.5 Neut # (Auto) (2.0 - 7.6 x10 3/uL) 7.20 Lymph # (Auto) (1.0 - 3.8 x10 3/uL) 2.30 Kern # (Auto) (0.1 - 0.8 x10 3/uL) 1.41 H Eos # (Auto) (0.0 - 0.2 x10 3/uL) 0.12 Baso # (Auto) (0.0 - 0.2 x10 3/uL) 0.06 Abs Immat Gran (auto) (0.00 - 0.03 0.08 H x10 3/uL) Add Manual Diff NO Immature Gran % (0.0 - 2.0 %) 0.7 Nucleated RBC % (0 - 0 %) 0.0 Nucleated RBCs # (Man) (0.0 - 0.1 x10 3/uL) 0.0 0 Urines Urine Color (YEL/STRAW) YELLOW Urine Appearance (CLEAR) SL CLOUDY Urine pH (5.0 - 7.0) 6.0 Ur Specific [place] (1.005 - 1.030) 1.016 Urine Protein (NEGATIVE) 1+ H Urine Glucose (UA) (NEGATIVE) 1+ H Urine Ketones (NEGATIVE) TRACE H Urine Blood (NEGATIVE) 3+ H Urine Nitrite (NEGATIVE) NEGATIVE Urine Bilirubin (NEGATIVE) NEGATIVE Urine Urobilinogen (0.2 - 1.0 mg/dL) 0.2 Ur Leukocyte Esterase (NEGATIVE) 1+ H Urine RBC (0 - 3 RBC/HPF) >50 H Urine WBC (0 - 3 WBC/HPF) >50 H Ur Squamous Epith Cells (NONE SEEN /HPF) 0-5 Urine Bacteria (NONE SEEN /HPF) TRACE Urine Mucus (NONE SEEN /LPF) TRACE Results: labs reviewed, vital signs reviewed Diagnosis, Assessment Plan Diagnosis, Assessment Plan Free Text A P: Assessment BPH Urinary retention Bhardwaj in situ Bacteremia Leukocytosis Proteinuria Microhematuria WISAM on CKD Plan Bhardwaj recently changed will order renal u/s for the UTI's and BPH Continue Flomax Voiding trials once clinically improved Monitor for hematuria We will follow Heme and lytes per primary team ABX per ID Thank you for this kind consult Electronically Signed by Dima Forbes LINK CUTTER on at 1033 RPT #:[id number] END OF REPORT 2022-01-01 [facility] 09:30:00-00:00 [facility] ([facility]) Pain Management Progress Note REPORT#:[id number] REPORT STATUS: Signed DATE:01/01/22 TIME: 929 PATIENT: PEDRO MCGREGOR UNIT #: [id number] ROOM/BED: [place] [address] : 54 AGE: 66 SEX: M ATTEND: Max Ward MD ADM AUTHOR: Heriberto Ibrahim * ALL edits or amendments must be made on the Material [employer]/computer document * Subjective Chief Complaint: Left foot pain Comments: Patient seen and examined. R eports having mild pain but states that medications help to manage it. Denies n/v/drowsiness. Review of Systems Free Text ROS Notes Free Text ROS Notes: 12 point ROS reviewed and negative unless stated otherwise Objective General VS/I O: Vital Signs Date Temp Pulse Resp B/P B/P Mean Pulse Ox FiO2 12/31-01/01 36.7-37.3 89-98 14-20 127-172/60-83 86.1-112.4 92-97 Last Documented: Result Date Time Pulse Ox 97 01/01 0759 B/P 172/83 01/01 759 B/P Mean 112.4 01/01 075 O2 Delivery Room air 01/01 759 Temp 37.0 01/01 759 Pulse 98 01/01 075 Resp 15 01/01 0759 O2 Flow Rate 4 12/30 1758 24 hour I O ending at 0700: 01/01 0700 12/31 1900 Intake Total 430.00 Output Total 1450 2400 Balance -1020.00 -2400 Intake, IV 280.00 Intake, Oral 150 Output, Urine 1450 2400 PATIENT WEIGHT: Weight (lb): Weight (oz): Weight (kg): 100.000 Medications: Active Meds + DC'd Last 24 Hrs Hydromorphone HCl (DILAUDID) 0.5 MG Q4H PRN PRN IV Gabapentin (NEURONTIN) 300 MG BEDTIME PO Insulin Human Lispro (HUMALOG) 10 UNIT AC BK GRACE SUBQ Furosemide (LASIX) 40 MG DAILY PO Loratadine (CLARITIN) 10 MG DAILY PO Tramadol HCl (ULTRAM) 100 MG Q6H PRN PRN PO Amitriptyline HCl (ELAVIL) 25 MG BEDTIME PO Atorvastatin Calcium (LIPITOR) 80 MG DAILY@2100 PO Vancomycin HCl (VANCOMYCIN HCL) 1,000 MG Q12H IV Sodium Chloride (SODIUM CHLORIDE 0.9%) 250 ML Miscellaneous Information (VANCOMYCIN PHARMACY T O DOSE) 1 EACH ASDIR IV (CKD) Ursodiol (ActigalL) 300 MG C BK DIN PO Insulin Human Lispro (HUMALOG) 10 UNIT AC DIN MARR BQ Insulin Human Lispro (HUMALOG) 0 AC HS SUBQ Sterile Water (WATER FOR IRRIGATION) DRESSING CH SHERICE ASDIR PRN IRR Aspirin (ASPIRIN) 81 MG DAILY PO Citalopram Hydrobromide (CeleXA) 20 MG DAILY PO Metoprolol Tartrate (LOPRESSOR) 25 MG DAILY PO Tamsulosin HCl (Flomax 0.4 mg) 0.4 MG DAILY PO Morphine Sulfate (morphine SULFATE) 2 MG Q4H PRN PRN IV (DC) Morphine Sulfate (morphine SULFATE) 4 MG Q4H PRN PRN IV (DC) Ondansetron HCl (ZOFRAN) 4 MG Q6H PRN PRN IV Physical Exam General appearance: alert, awake, oriented Head/Eyes: atraumatic, EOMI, normocephalic ENT: normal nose, normal sinus, moist mucosal me mbranes Neck: no masses or swelling, supple/no meningism us Cardiovascular: normal capillary refill, regular rate rhythm Respiratory: no distress, aerating well, symmetr ic expansion Abdomen: non-tender, no rebound, no distention Extremities: no edema, no clubbing, no c yanosis, decreased range of motion (of LLE 2/2 pain) Neuro/METAL WELDER: alert, oriented X 3, normal speech Skin: dry, intact, warm Results Findings/data: Laboratory Tests: 01/01 01/01 01/01 01/01 0802 0350 0350 0350 Chemistry Sodium (134 - 147 mEq/L) 134 Potassium (3.4 - 5.0 mEq/L) 4.1 Chloride (100 - 108 mEq/L) 98 L Carbon Dioxide (21 - 33 mEq/l) 28 Anion Gap (0 - 20) 12 BUN (7 - 18 mg/dL) 13 Creatinine (0.6 - 1.3 mg/dL) 1.0 Glomerular Filtr Rate (80 - 90) 82.5 Glucose (70 - 110 mg/dL) 202 H POC Glucose (70 - 110 MG/DL) 212 H Hemoglobin A1c (4.8 - 6.0 %A1C) 8.8 H Calcium (8.0 - 10.5 mg/dL) 9.4 Magnesium (1.80 - 2.40 mg/dL) 1.73 L C-Reactive Protein (<10.0 mg/L) 199.0 H Hematology WBC (4.5 - 11.0 x10 3/uL) 11.2 H RBC (4.00 - 5.60 x10 6/uL) 3.16 L Hgb (12.5 - 16.9 g/dL) 9.2 L Hct (37.5 - 50.7 %) 28.2 L MCV (81.0 - 99.0 fL) 89.2 MCH (27.0 - 33.0 pg) 29.1 MCHC (33.0 - 37.0 g/dL) 32.6 L RDW (11.5 - 14.5 %) 15.4 H Plt Count (150 - 400 x10 3/uL) 724 H MPV (7.0 - 9.0 fL) 11.1 H Neut % (Auto) (56.0 - 77.0 %) 64.5 Lymph % (Auto) (14.0 - 32.0 %) 20.6 Kern % (Auto) (4.8 - 9.0 %) 12.6 H Eos % (Auto) (0.3 - 3.7 %) 1.1 Baso % (Auto) (0.0 - 2.0 %) 0.5 Neut # (Auto) (2.0 - 7.6 x10 3/uL) 7.20 Lymph # (Auto) (1.0 - 3.8 x10 3/uL) 2.30 Kern # (Auto) (0.1 - 0.8 x10 3/uL) 1.41 H Eos # (Auto) (0.0 - 0.2 x10 3/uL) 0.12 Baso # (Auto) (0.0 - 0.2 x10 3/uL) 0.06 Abs Immat Gran (auto) (0.00 - 0.03 x10 3/uL) 0. 08 H Add Manual Diff NO Immature Gran % (0.0 - 2.0 %) 0.7 Nucleated RBC % (0 - 0 %) 0.0 Nucleated RBCs # (Man) (0.0 - 0.1 x10 3/uL) 0.0 0 ESR Westergren (0 - 15 mm/hr) 108 H Urines Urine Color (YEL/STRAW) YELLOW Urine Appearance (CLEAR) SL CLOUDY Urine pH (5.0 - 7.0) 6.0 Ur Specific [place] (1.005 - 1.030) 1.016 Urine Protein (NEGATIVE) 1+ H Urine Glucose (UA) (NEGATIVE) 1+ H Urine Ketones (NEGATIVE) TRACE H Urine Blood (NEGATIVE) 3+ H Urine Nitrite (NEGATIVE) NEGATIVE Urine Bilirubin (NEGATIVE) NEGATIVE Urine Urobilinogen (0.2 - 1.0 mg/dL) 0.2 Ur Leukocyte Esterase (NEGATIVE) 1+ H Urine RBC (0 - 3 RBC/HPF) >50 H Urine WBC (0 - 3 WBC/HPF) >50 H Ur Squamous Epith Cells (NONE SEEN /HPF) 0-5 Urine Bacteria (NONE SEEN /HPF) TRACE Urine Mucus (NONE SEEN /LPF) TRACE 12/31 1722 1136 Chemistry POC Glucose (70 - 110 MG/DL) 199 H 282 H 276 H Microbiology: Date/Time Procedure - Status Source Growth 01/01 0350 Urine Culture - RECD URINE 12/31 1500 Wound Culture - RECD ANKLE 12/31 1500 Wound Culture - RECD FOOT Results: labs reviewed, vital signs stable Diagnosis, Assessment Plan Free text A P: Pdero Mcgregor is a 66yo male with PMH of DM II, HTN, CAD, HLD, and diabetic ulcers that was admitted with a left foot infection. 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 Dilaudid 0.5mg IV Q4hrs PRN severe pain Tramadol 100mg PO Q6hrs PRN moderate pain Gabapentin 300mg PO QHS for neuropathic pain Left foot infection - abx, podiatry following DM - SSI HLD - Lipitor HTN - Metoprolol BPH - Flomax CAD - ASA 81mg Please hold all narcotics for SBP < 90mm hg, Respiratory rate <8bpm, or altered mentation. Please call with any questions or concerns Thank you for allowing me to participate in this patient's care. Plan of care discussed with Dr. Posada and Dr. Felipe kumar, patient, primary team, and RN. All questions answered. Patient agrees w ith above plan of care. All diagnostic studies, ASSISTANT CHIEF TRAIN DISPATCHER, and labs in the pas t 24 hours reviewed and interpreted with Dr. Posada and Dr. Carter. [place] ASSISTANT CHIEF TRAIN DISPATCHER verified 12/31/21 Electronically Signed by Heriberto Ibrahim PA on 12/14 11/04 at 1626 at 1635 RPT #:[id number] END OF REPORT 2021-12-31 [facility] 18:35:00-00:00 [facility] ([facility]) Pharmacy Prog.Note-Vancomycin REPORT#:[id number] REPORT STATUS: Signed DATE:12/31/21 TIME: 183 PATIENT: PEDRO MCGREGOR UNIT #: [id number] ROOM/BED: 5506-1 : 54 AGE: 66 SEX: M ATTEND: Max Ward MD ADM AUTHOR: Olena Wilson [facility] * ALL edits or amendments must be made on the [employer]/computer document * Vancomycin Vancomycin Medication Therapy Goal: AUC 400-600 mcg*hr/mL Indication for treatment: Osteomyelitis Treatment plan: consult Regimen: 66-year-old female with a history of hypertensio n, diabetes, hyperlipidemia, osteomyelitis, and CAD who is here today for his left foot infection. He has been on multiple rounds of antibiotics for this infection without relief. Pharmacy consulted to manage vancomycin. Consulting Provider: Enrrique King Indication: Osteomyelitis Goal: AUC 400-600 12/31 A/P: * Vitals/Labs - Tmax 38, WBC 13.1 * Renal- BUN 20 mg/dL (12/30 ), Scr 1.4 mg/dL (12/30), eCrCL 67 ml/min, UOP 1100 mL * Micro - L ankle wound cx: pending B cx: Gram positive cocci in pairs and chains * Imaging - Foot XR: Soft tissue swelling * Regimen and Monitoring- Day 1 of 28. P atient received vancomycin 1 gm on at 1919. Continue with vancomycin 1 gm q12hrs . Levels following 4th dose- not yet drawn. Pharmacy will continue to follow. Electronically Signed by Olena Wilson [facility] on at 2010 RPT #:[id number] END OF REPORT 2021-12-31 [facility] 15:55:00-00:00 [facility] ([facility]) Pain Management Consult Note REPORT#:[id number] REPORT STATUS: Signed DATE:12/31/21 TIME: 155 PATIENT: PEDRO MCGREGOR UNIT #: [id number] ROOM/BED: [place] [address] : 54 AGE: 66 SEX: M ATTEND: Jean-Paul Ward od, MD ADM AUTHOR: Betty Tejeda APRN * ALL edits or amendments must be made on the [employer]/computer document * History of Present Illness Primary Care Physician: unknown HPI: Pedro Mcgregor is a 66yo male with PMH of DM II, HTN, CAD, HLD, and diabetic ulcers that was admitted with a left foot infection. The patient complains of left foot pain that sta rted in November 2021. The patient describes the pain as a burning, stingin g pain that is non-radiating. The pain worsens with not ta dereck pain medications, and improves with taking pain medications. Rates the pain a 5/10. The patient takes no pain medications at home. Denies n/v/drowsiness. Review of Systems Additional notes: 12 point ROS reviewed and negative unless stated otherwise History Past History Past Medical History: Reports: Depression/mood disorder, Hypertension. Past surgical history: denies PSH Past social history: no alcohol use, no drug abu se, no tobacco use Medications: Home Medications: Medication Dose/Rte/Freq Days Qty Entered Last Max Daily Dose Reviewed ENOXAPARIN (LOVENOX) 40 MG SQ DAILY 12/31/21 Strength: 40 MG/0.4 ML 11 0045 DISP.SYRIN METOPROLOL TARTRATE 25 MG PO 12/31/21 12/31/21 (LOPRESSOR) ONCE PER DAY 19 0056 Strength: 25 MG TAB ASPIRIN 81 MG PO DAILY 12/30/21 12/31/21 Strength: 81 MG TAB.CHEW 2348 0043 ATORVASTATIN (LIPITOR) 80 MG PO DAILY 12/30/21 12/31/21 Strength: 80 MG TAB 2349 0043 CITALOPRAM (CeleXA) 40 MG PO DAILY 12/30/21 Strength: 40 MG TAB 2350 0044 INSULIN LISPRO (HumaLOG) 10 UNITS SQ 12/31/21 1 03/02/21 Strength: 100 UNIT/ML VIAL AC BK GRACE 4 0051 HYDROcodone/APAP 1 TAB PO 12/31/21 12/31/21 (HYDROcodone/APAP 5/325) Q6H PRN PRN PAIN 5 0047 Strength: 5 MG-325 MG TAB SCALE 7-10 INSULIN GLARGINE 35 UNITS SUBQ 12/31/21 2 (LANTUS SOLOSTAR (15mL)) BEDTIME 16 0053 Strength: 100 UNIT/ML (3 ML) PEN.INJCTR TAMSULOSIN ER (FLOMAX) 0.4 MG PO DAILY 12/31/21 12/31/21 Strength: 0.4 MG CAP.SR.24H 20 0049 INSULIN LISPRO (HumaLOG) 10 UNITS SUBQ 12/31/21 12/31/21 Strength: 100 UNIT/ML VIAL AC DIN 8 0051 Current Hospital Medications: Anti-Infective Agents Sig/Josefa Start time Last Medication Dose Route Stop Time Status Admin Cefepime HCl 2 GM X1ED STA 12/30 1758 DC 12/30 (MAXIPIME) IV 12/30 1827 1920 Sodium Chloride 100 ML (SODIUM CHLORIDE 0.9% 100 ML) Vancomycin HCl 1,000 MG X1ED STA 12/30 1757 DC 12/30 (VANCOMYCIN HCL) IV 12/30 1856 1919 Sodium Chloride 250 ML (SODIUM CHLORIDE 0.9%) Antihistamine Drugs Sig/Josefa Start time Last Medication Dose Route Stop Time Status Admin Loratadine 10 MG DAILY 01/01 0900 AC (CLARITIN) PO 01/31 0859 Autonomic Drugs Sig/Josefa Start time Last Medication Dose Route Stop Time Status Admin Tamsulosin HCl 0.4 MG DAILY 12/31 1245 AC 12/31 (Flomax 0.4 mg) PO 01/30 1244 1352 Cardiovascular Drugs Sig/Josefa Start time Last Medication Dose Route Stop Time Status Admin Atorvastatin Calcium 80 MG DAILY@2100 12/31 210 0 AC (LIPITOR) PO 01/30 205 Metoprolol Tartrate 25 MG DAILY 12/31 1245 AC 1 03/02 (LOPRESSOR) PO 01/30 1244 1352 Central Nervous System Agents Sig/Josefa Start time Last Medication Dose Route Stop Time Status Admin Amitriptyline HCl 25 MG BEDTIME 12/31 2100 AC (ELAVIL) PO 01/30 2059 Aspirin 81 MG DAILY 12/31 1245 AC 12/31 (ASPIRIN) PO 01/30 1244 1351 Citalopram 20 MG DAILY 12/31 1245 AC 12/31 Hydrobromide PO 01/30 1244 1352 (CeleXA) Morphine Sulfate 2 MG Q4H PRN PRN 12/30 2230 AC 12/31 (morphine SULFATE) IV 01/14 2227 1505 Morphine Sulfate 4 MG Q4H PRN PRN 12/30 2230 AC 12/30 (morphine SULFATE) IV 01/14 2227 2317 Electrolytic, Caloric, And Tiesha Sig/Josefa Start time Last Medication Dose Route Stop Time Status Admin Furosemide 40 MG DAILY 01/01 0900 AC (LASIX) PO 01/31 0859 Sterile Water See Dose ASDIR PRN 12/31 1315 AC (WATER FOR Insts (1) IRR 01/30 1314 IRRIGATION) Sodium Chloride 1,000 ML X1ED STA 12/30 1914 CA N (SODIUM CHLORIDE IV 12/30 2012 0.9%) Sodium Chloride 1,000 ML X1ED STA 12/30 175 DC 12/30 (SODIUM CHLORIDE IV 12/30 0.9%) Gastrointestinal Drugs Sig/Josefa Start time Last Medication Dose Route Stop Time Status Admin Ursodiol 300 MG C BK DIN 12/31 1700 AC (ActigalL) PO 01/30 1659 Ondansetron HCl 4 MG Q6H PRN PRN 12/300 AC 12/30 (ZOFRAN) IV 03/30 2226 2317 Ondansetron HCl 4 MG X1ED STA 12/30 192 DC (ZOFRAN) IV 12/30 Hormones And Synthetic Substit Sig/Josefa Start time Last Medication Dose Route Stop Time Status Admin Insulin Human Lispro 10 UNIT AC BK GRACE 01/01 113 0 AC (HUMALOG) SUBQ 01/31 1129 Insulin Human Lispro 10 UNIT AC DIN 12/31 1630 AC (HUMALOG) SUBQ 01/30 1629 Insulin Human Lispro 0 AC HS 12/31 1630 AC (HUMALOG) SUBQ 01/30 1629 Dose Instructions: (1)Sterile Water (WATER FOR IRRIGATION): DRESSING CHANGE Allergies: Coded Allergies: No Known Allergies (12/30/21) Free Text Hx Notes Free text Hx notes: Family history non-contributory. Objective Physical Exam VS/I O: Last Documented: Result Date Time Pulse Ox 94 12/31 1137 B/P 145/63 12/31 1137 B/P Mean 90.1 12/31 1137 Temp 36.7 12/31 1137 Pulse 92 12/31 1137 Resp 14 12/31 1137 O2 Delivery Room air 12/31 0451 O2 Flow Rate 4 12/30 1758 24 hour I O ending at 0700: 12/31 0700 12/30 1900 Intake Total 110.00 Output Total 1100 Balance -990.00 Intake, IV 10.00 Intake, Oral 100 Number 1 Bowel Movements Output, Emesis Output, Urine 1100 Patient 100 kg Weight Weight Standing scale Measurement Method PATIENT WEIGHT: Weight (lb): Weight (oz): Weight (kg): 100.000 General appearance: alert, awake, oriented Head/eyes: atraumatic, EOMI, normocephalic ENT: normal nose, normal sinus, moist mucosal me mbranes Neck: no masses or swelling, supple/no meningism us Cardiovascular: normal capillary refill, regular rate rhythm Respiratory: no distress, aerating well, symmetr ic expansion Abdomen: non-tender, no rebound, no distention Extremities: no edema, no clubbing, no c yanosis, decreased range of motion (of LLE 2/2 pain) Neuro/METAL WELDER: alert, oriented X 3, normal speech Skin: dry, intact, warm Results Findings/data: Laboratory Tests: 12/31 12/31 12/30 12/30 12/30 1136 0803 2018 1814 1814 Chemistry POC Glucose (70 - 110 MG/DL) 276 H 238 H Lactic Acid (0.4 - 1.9 mmol/L) 1.6 B-Natriuretic Peptide (0 - 100 PG/ML) 40.0 Urines Urine Color (YEL/STRAW) YELLOW Urine Appearance (CLEAR) CLEAR Urine pH (5.0 - 7.0) 6.0 Ur Specific [place] (1.005 - 1.030) 1.008 Urine Protein (NEGATIVE) NEGATIVE Urine Glucose (UA) (NEGATIVE) NEGATIVE Urine Ketones (NEGATIVE) NEGATIVE Urine Blood (NEGATIVE) 2+ H Urine Nitrite (NEGATIVE) NEGATIVE Urine Bilirubin (NEGATIVE) NEGATIVE Urine Urobilinogen (0.2 - 1.0 mg/dL) 0.2 Ur Leukocyte Esterase (NEGATIVE) NEGATIVE Urine RBC (0 - 3 RBC/HPF) 11-20 Urine WBC (0 - 3 WBC/HPF) 4-9 H Ur Squamous Epith Cells (NONE SEEN NONE SEEN /HPF) Urine Bacteria (NONE SEEN /HPF) TRACE Hyaline Casts (NONE SEEN /LPF) 0-2 Urine Mucus (NONE SEEN /LPF) TRACE 12/30 1814 Chemistry Sodium (134 - 147 mEq/L) 128 L Potassium (3.4 - 5.0 mEq/L) 3.9 Chloride (100 - 108 mEq/L) 90 L Carbon Dioxide (21 - 33 mEq/l) 30 Anion Gap (0 - 20) 12 BUN (7 - 18 mg/dL) 20 H Creatinine (0.6 - 1.3 mg/dL) 1.4 H Glomerular Filtr Rate (80 - 90) 55.1 L Glucose (70 - 110 mg/dL) 249 H Calcium (8.0 - 10.5 mg/dL) 10.1 Total Bilirubin (0.0 - 1.0 mg/dL) 0.30 Direct Bilirubin (0.0 - 0.30 MG/DL) 0.30 Indirect Bilirubin (MG/DL) 0.00 AST (15 - 37 IUnit/L) 25 ALT (30 - 65 IUnit/L) 19 L Total Alk Phosphatase (20 - 125 IUnit/L) 342 H Troponin I High Sens (0 - 54 ng/L) 7 Total Protein (6.4 - 8.2 g/dL) 9.2 H Albumin (3.4 - 5.0 g/dL) 2.30 L Hematology WBC (4.5 - 11.0 x10 3/uL) 13.1 H RBC (4.00 - 5.60 x10 6/uL) 3.80 L Hgb (12.5 - 16.9 g/dL) 11.0 L Hct (37.5 - 50.7 %) 34.2 L MCV (81.0 - 99.0 fL) 90.0 MCH (27.0 - 33.0 pg) 28.9 MCHC (33.0 - 37.0 g/dL) 32.2 L RDW (11.5 - 14.5 %) 15.4 H Plt Count (150 - 400 x10 3/uL) 770 H MPV (7.0 - 9.0 fL) 10.7 H Neut % (Auto) (56.0 - 77.0 %) 70.2 Lymph % (Auto) (14.0 - 32.0 %) 18.0 Kern % (Auto) (4.8 - 9.0 %) 10.1 H Eos % (Auto) (0.3 - 3.7 %) 0.6 Baso % (Auto) (0.0 - 2.0 %) 0.5 Neut # (Auto) (2.0 - 7.6 x10 3/uL) 9.23 H Lymph # (Auto) (1.0 - 3.8 x10 3/uL) 2.36 Kern # (Auto) (0.1 - 0.8 x10 3/uL) 1.32 H Eos # (Auto) (0.0 - 0.2 x10 3/uL) 0.08 Baso # (Auto) (0.0 - 0.2 x10 3/uL) 0.06 Abs Immat Gran (auto) (0.00 - 0.03 x10 3/uL) 0. 08 H Add Manual Diff NO Immature Gran % (0.0 - 2.0 %) 0.6 Nucleated RBC % (0 - 0 %) 0.0 Nucleated RBCs # (Man) (0.0 - 0.1 x10 3/uL) 0.0 0 Serology SARS-CoV-2 Ag (Rapid) (Negative) Negative Microbiology: Date/Time Procedure - Status Source Growth 12/31 1500 Wound Culture - RECD ANKLE 12/31 1500 Wound Culture - RECD FOOT 12/31 0550 Influenza Virus Type B Antigen - COM P NASOPHARG 12/31 0550 Influenza Virus Type A Antigen - COM P NASOPHARG 12/30 1814 Blood Culture - RES BLOOD 12/30 1814 Blood Culture Gram Stain - RES BLOOD 12/30 1814 Blood Culture - RECD BLOOD 12/30 1814 Blood Culture Gram Stain - RECD BLOOD Recent Impressions: RADIOLOGY - XR CHEST 1 V 12/30 1830 Report Impression - Status: SIGNED Entered: 12/30/20211857 IMPRESSION: Left lung base linear atelectasis or scarring. N o acute pulmonary findings. Impression By: [email or web address] - Martin Head M.D. RADIOLOGY - XR FOOT 3 + V LT 12/31 1831 Report Impression - Status: SIGNED Entered: 12/30/20211855 IMPRESSION: 1. Limited study, no acute fracture or dislocati on identified. 2. Diffuse soft tissue swelling with distal plan tar soft tissue ulcer. Impression By: [email or web address] - Roberta Kelly Results: labs reviewed, vital signs stable Diagnosis, Assessment Plan Free text A P: Pedro Mcgregor is a 66yo male with PMH of DM II, HTN, CAD, HLD, and diabetic ulcers that was admitted with a left foot infection. 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 DC MSIV Start Dilaudid 0.5mg IV Q4hrs PRN severe pain Start Tramadol 100mg PO Q6hrs PRN moderate pain Start Gabapentin 300mg PO QHS for neuropathic pa in Left foot infection - abx, podiatry following DM - SSI HLD - Lipitor HTN - Metoprolol BPH - Flomax Please hold all narcotics for SBP < 90mm hg, Respiratory rate <8bpm, or altered mentation. Please call with any questions or concerns Thank you for allowing me to participate in this patient's care. Plan of care discussed with Dr. Posada and Dr. Felipe kumar, patient, primary team, and RN. All questions answered. Patient agrees w ith above plan of care. All diagnostic studies, ASSISTANT CHIEF TRAIN DISPATCHER, and labs in the pas t 24 hours reviewed and interpreted with Dr. Posada and Dr. Carter. [place] ASSISTANT CHIEF TRAIN DISPATCHER verified 12/31/21 Filled Written ID Drug QTY Days Prescriber RX # Dispenser Refill Daily Dose* Pymt Type ASSISTANT CHIEF TRAIN DISPATCHER 12/14/2021 12/14/2021 1 Hydrocodone-Acetamin 5-325 Mg 28.00 7 Un Bra [id number] Uni ([id number]) 0 20.00 MM E Other [place] 11/30/2021 11/30/2021 2 Hydrocodone-Acetamin 5-325 Mg 16.00 4 [facility] [id number] Wal ([id number]) 0 20.00 MME Me dicare [place] 11/23/2021 11/23/2021 2 Acetaminophen-Cod #3 Tablet 30.00 5 Antonino [id number] Wal ([id number]) 0 27.00 MME Me dicare [place] at 0005 at 1634 RPT #:[id number] END OF REPORT 2021-12-31 [facility] 12:52:00-00:00 [facility] ([facility]) Podiatry Consult Note REPORT#:[id number] REPORT STATUS: Signed DATE:12/31/21 TIME: 1252 PATIENT: PEDRO MCGREGOR UNIT #: [id number] ROOM/BED: 5506-1 : 54 AGE: 66 SEX: M ATTEND: Jean-Paul Ward od, MD ADM AUTHOR: Alejandro Shah DPM * ALL edits or amendments must be made on the [employer]/computer document * History of Present Illness Chief complaint: left foot infection HPI: pt is with two family members. history from patient and family and from chart. 66-year-old female with a history of hypertensio n, diabetes, hyperlipidemia, osteomyelitis, and CAD who is here today for his left foot infection. He has been admitted to [facility] hospital system multiple t imes for this complaint. He normallly sees Dr. wharton but we are covering for today. Was at [facility] recently. He has seen Dr. Wharton, and instructed to come to emergency room for further evaluation and treatment. He has associated gene ralized weakness, chills, and nausea/vomiting. He has been on multiple rounds of antibiotics for this infection without relief. He denies ches t pain, dyspnea, changes in his bowel/ bladder movements, headache, blurred vision, or any other symptoms. left foot has been draining pus. he says nothing wrong with right foot. only left foot evaluated today. History - Adult longitudinal Additional medical history: HTN, HLD, Dm type II, Diabetic foot ulcer, Liver disease Alcohol use: Denies EtOH use Drug use: Denies recreational drugs Smoking status for patients 13 years old or olde r: Never Smoker Allergies: Coded Allergies: No Known Allergies (12/30/21) Review of Systems Constitutional: fatigue, fever, generalized weakness, lethargy. Skin: abrasion, bruising. Cardiovascular: edema. Denies: chest pain. Musculoskeletal: joint pain, joint swelling. Neuro: numbness. Denies: seizure. Psych: Denies: agitation, anxiety. All systems rev neg: except as marked Objective General VS: Last Documented: Result Date Time Pulse Ox 94 12/31 113 B/P 145/63 12/31 113 B/P Mean 90.1 12/31 1136 Temp 36.7 12/31 113 Pulse 92 12/31 113 Resp 14 12/31 113 O2 Delivery Room air 12/31 0451 O2 Flow Rate 4 12/30 1758 PATIENT WEIGHT: Weight (lb): Weight (oz): Weight (kg): 100.000 Medications: Active Meds + DC'd Last 24 Hrs Insulin Human Lispro (HUMALOG) 10 UNIT AC BK GRACE SUBQ (PEND) Atorvastatin Calcium (LIPITOR) 80 MG DAILY@2100 PO Insulin Human Lispro (HUMALOG) 10 UNIT AC DIN MARR BQ Aspirin (ASPIRIN) 81 MG DAILY PO Citalopram Hydrobromide (CeleXA) 20 MG DAILY PO Metoprolol Tartrate (LOPRESSOR) 25 MG DAILY PO Tamsulosin HCl (Flomax 0.4 mg) 0.4 MG DAILY PO Morphine Sulfate (morphine SULFATE) 2 MG Q4H PRN PRN IV Morphine Sulfate (morphine SULFATE) 4 MG Q4H PRN PRN IV Ondansetron HCl (ZOFRAN) 4 MG Q6H PRN PRN IV Ondansetron HCl (ZOFRAN) 4 MG X1ED STA IV (DC) Sodium Chloride (SODIUM CHLORIDE 0.9%) 1,000 ML X1ED STA IV (CAN) Cefepime HCl (MAXIPIME) 2 GM X1ED STA IV (DC) Sodium Chloride (SODIUM CHLORIDE 0.9% 100 ML) 1 00 ML Vancomycin HCl (VANCOMYCIN HCL) 1,[address] A IV (DC) Sodium Chloride (SODIUM CHLORIDE 0.9%) 250 ML Sodium Chloride (SODIUM CHLORIDE 0.9%) 1,000 ML X1ED STA IV (DC) I O: 24 hour I O ending at 0700: 18 0700 12/30 1900 Intake Total 110.00 Output Total 1100 Balance -990.00 Intake, IV 10.00 Intake, Oral 100 Number 1 Bowel Movements Output, Emesis Output, Urine 1100 Patient 100 kg Weight Weight Standing scale Measurement Method Dietitian nutrition assessment The data set between the solid lines has been im ported from the dietitian's assessment. BMI Calculated: 26.8 Nutrition related diagnosis: Nutrition diagnosis details: Nutrition problem: Nutrition etiology: Nutrition signs and symptoms: Nutrition prescription: Dietitian name: Assessment completed: Physical Exam General appearance: alert, awake, oriented, plea ravi, mental status normal Wound/incision: Location: left foot Site condition: drainage, dressing saturated, e cchymosis, erythema, eschar, necrotic tissue, odor, left foot dp/pt 1/4 light touch decreased. wound anterior left ankle. seropurulent imelda inage. ulcer extensive from medial left hindfoot to medial left midfoot. into marr b q layer. no ability to invert the left foot. foot is deformed. it is severely everted. no lymphang itis. LE vascular pulse assess: 1+ L posterior tibialis, 1+ L dorsalis pedis Feet Top - Top View (L) [Embedded Image Not Available] 1) 2) Results Findings/Data: Laboratory Tests: 12/31 12/31 12/30 12/30 12/30 1136 0803 2018 1814 1814 Chemistry POC Glucose (70 - 110 MG/DL) 276 H 238 H Lactic Acid (0.4 - 1.9 mmol/L) 1.6 B-Natriuretic Peptide (0 - 100 PG/ML) 40.0 Urines Urine Color (YEL/STRAW) YELLOW Urine Appearance (CLEAR) CLEAR Urine pH (5.0 - 7.0) 6.0 Ur Specific [place] (1.005 - 1.030) 1.008 Urine Protein (NEGATIVE) NEGATIVE Urine Glucose (UA) (NEGATIVE) NEGATIVE Urine Ketones (NEGATIVE) NEGATIVE Urine Blood (NEGATIVE) 2+ H Urine Nitrite (NEGATIVE) NEGATIVE Urine Bilirubin (NEGATIVE) NEGATIVE Urine Urobilinogen (0.2 - 1.0 mg/dL) 0.2 Ur Leukocyte Esterase (NEGATIVE) NEGATIVE Urine RBC (0 - 3 RBC/HPF) - Urine WBC (0 - 3 WBC/HPF) 4-9 H Ur Squamous Epith Cells (NONE SEEN NONE SEEN /HPF) Urine Bacteria (NONE SEEN /HPF) TRACE Hyaline Casts (NONE SEEN /LPF) 0-2 Urine Mucus (NONE SEEN /LPF) TRACE 12/30 1814 Chemistry Sodium (134 - 147 mEq/L) 128 L Potassium (3.4 - 5.0 mEq/L) 3.9 Chloride (100 - 108 mEq/L) 90 L Carbon Dioxide (21 - 33 mEq/l) 30 Anion Gap (0 - 20) 12 BUN (7 - 18 mg/dL) 20 H Creatinine (0.6 - 1.3 mg/dL) 1.4 H Glomerular Filtr Rate (80 - 90) 55.1 L Glucose (70 - 110 mg/dL) 249 H Calcium (8.0 - 10.5 mg/dL) 10.1 Total Bilirubin (0.0 - 1.0 mg/dL) 0.30 Direct Bilirubin (0.0 - 0.30 MG/DL) 0.30 Indirect Bilirubin (MG/DL) 0.00 AST (15 - 37 IUnit/L) 25 ALT (30 - 65 IUnit/L) 19 L Total Alk Phosphatase (20 - 125 IUnit/L) 342 H Troponin I High Sens (0 - 54 ng/L) 7 Total Protein (6.4 - 8.2 g/dL) 9.2 H Albumin (3.4 - 5.0 g/dL) 2.30 L Hematology WBC (4.5 - 11.0 x10 3/uL) 13.1 H RBC (4.00 - 5.60 x10 6/uL) 3.80 L Hgb (12.5 - 16.9 g/dL) 11.0 L Hct (37.5 - 50.7 %) 34.2 L MCV (81.0 - 99.0 fL) 90.0 MCH (27.0 - 33.0 pg) 28.9 MCHC (33.0 - 37.0 g/dL) 32.2 L RDW (11.5 - 14.5 %) 15.4 H Plt Count (150 - 400 x10 3/uL) 770 H MPV (7.0 - 9.0 fL) 10.7 H Neut % (Auto) (56.0 - 77.0 %) 70.2 Lymph % (Auto) (14.0 - 32.0 %) 18.0 Kern % (Auto) (4.8 - 9.0 %) 10.1 H Eos % (Auto) (0.3 - 3.7 %) 0.6 Baso % (Auto) (0.0 - 2.0 %) 0.5 Neut # (Auto) (2.0 - 7.6 x10 3/uL) 9.23 H Lymph # (Auto) (1.0 - 3.8 x10 3/uL) 2.36 Kern # (Auto) (0.1 - 0.8 x10 3/uL) 1.32 H Eos # (Auto) (0.0 - 0.2 x10 3/uL) 0.08 Baso # (Auto) (0.0 - 0.2 x10 3/uL) 0.06 Abs Immat Gran (auto) (0.00 - 0.03 x10 3/uL) 0. 08 H Add Manual Diff NO Immature Gran % (0.0 - 2.0 %) 0.6 Nucleated RBC % (0 - 0 %) 0.0 Nucleated RBCs # (Man) (0.0 - 0.1 x10 3/uL) 0.0 0 Serology SARS-CoV-2 Ag (Rapid) (Negative) Negative Recent Impressions: RADIOLOGY - XR CHEST 1 V 12/30 1830 Report Impression - Status: SIGNED Entered: 12/30/20211857 IMPRESSION: Left lung base linear atelectasis or scarring. N o acute pulmonary findings. Impression By: [email or web address] - Martin Head M.D. RADIOLOGY - XR FOOT 3 + V LT 12/31 1831 Report Impression - Status: SIGNED Entered: 12/30/20211855 IMPRESSION: 1. Limited study, no acute fracture or dislocati on identified. 2. Diffuse soft tissue swelling with distal plan tar soft tissue ulcer. Impression By: [email or web address] - Roberta Kelly Diagnosis, Assessment Plan Free Text A P: DM with neuropathy PVD wound left ankle ulcer left foot leukocytosis cellulitis left foot IV abx culture left ankle and left foot pulse lavage wet to dry dressings left foot xray: no gas. no erosions. offloading boots. get arterial studies. thank you we are coverin for cheryl/linnea. at 1300 RPT #:[id number] END OF REPORT 2021-12-31 [facility] 11:43:00-00:00 [facility] ([facility]) History Physical - Adult REPORT#:[id number] REPORT STATUS: Signed DATE:12/31/21 TIME: 1143 PATIENT: PEDRO MCGREGOR UNIT #: [id number] ROOM/BED: 5506-1 : 54 AGE: 66 SEX: M ATTEND: Jean-Paul Ward od, MD ADM AUTHOR: Lexa Samson LINK CUTTER * ALL edits or amendments must be made on the Material Mix/computer document * Lexa Samson 12/31/21 1143: History of Present Illness HPI Chief complaint: Left foot infection PCP: PCP: Hayden Yates DO HPI: 66-year-old female with a history of hypertensio n, diabetes, hyperlipidemia, osteomyelitis, and CAD who is here today for his left foot infection. He has been admitted to [facility] system multiple times for this complaint. He has seen a custom clothier, Dr. Wharton, and instructed to come to emergency room for further evaluation and treatment. He has associa ender generalized weakness, chills, and nausea/vomiting. He has been on multiple rounds of antibiotics for this infection without relief. He denies chest p ain, dyspnea, changes in his bowel/bladder movements, headache, blurred visio n, or any other symptoms. History Additional medical history: HTN, HLD, Dm type II, Diabetic foot ulcer, Liver disease Alcohol use: Denies EtOH use Drug use: Denies recreational drugs Smoking status for patients 13 years old or olde r: Never Smoker Medication/Allergy-Vaccine Hx Allergies: Coded Allergies: No Known Allergies (12/30/21) Review of Systems Constitutional: Reports: fatigue, generalized weakness. Allergy/Immun: Denies: anaphylaxis, itching, rhinorrhea. ENT: Denies: ear ringing, mouth pain, sinus problem, throat pain. Respiratory: Denies: GIBBS (dyspnea on exer tion), parox nocturnal dyspnea, pleurisy, pleuritic pain, productive cough (sputum). Cardiovascular: Denies: GIBBS (dyspnea on exertion), edema, orthop booker. GI: Denies: anorexia, constipation, GERD, melena, na usea. : Denies: frequency, hematuria, penile lesion, shweta ticular swelling. Endocrine: Denies: heat intolerance, polydipsia, polyuria. Neuro: Denies: change in LOC, focal weakness, headache, seizure. Physical Exam VS/I O Vital Signs: Date Time Temp Pulse Resp B/P B/P Pulse O2 O2 F low FiO2 Mean Ox Delivery Rate 12/31 1137 36.7 92 14 145/63 90.1 94 12/31 0806 36.7 88 14 140/61 87.3 93 12/31 0451 36.6 100 14 114/61 78.8 92 Room air 12/31 0024 36.9 97 14 103/67 79.4 92 Nasal cannula 12/30 2327 38.0 94 18 125/68 87.1 93 12/30 2057 93 16 125/78 93 98 12/30 2028 97 16 137/86 103 98 12/30 1912 37.2 106 87/58 67.5 96 12/30 1758 37.1 103 16 94/57 69 95 Nasal 4 cannula 24 hour I O ending at 0700: 12/31 0700 12/30 1900 Intake Total 110.00 Output Total 1100 Balance -990.00 Intake, IV 10.00 Intake, Oral 100 Number 1 Bowel Movements Output, Emesis Output, Urine 1100 Patient 100 kg Weight Weight Standing scale Measurement Method PATIENT WEIGHT: Weight (lb): Weight (oz): Weight (kg): 100.000 General appearance: alert, awake Head/Eyes: atraumatic, normocephalic, PERRLA Neck: non-tender, no bruit/NL carotids, no JVD, no lymphadenopathy Cardiovascular: normal capillary refill, regular rate rhythm, normal heart sounds Respiratory: clear to auscultation, no d istress, no tenderness, aerating well, symmetric expansion Abdomen/GI: active bowel sounds, soft, non-tende r Extremities: moves all Musculoskeletal: full range of motion, n o CVA tenderness, no midline vertebral tend, no muscle spasm Neuro/METAL WELDER: alert, oriented X 3 Results Findings/Data: Laboratory Tests: 12/31 1815 1815 Chemistry POC Glucose (70 - 110 MG/DL) 238 H Lactic Acid (0.4 - 1.9 mmol/L) 1.6 B-Natriuretic Peptide (0 - 100 PG/ML) 40.0 Urines Urine Color (YEL/STRAW) YELLOW Urine Appearance (CLEAR) CLEAR Urine pH (5.0 - 7.0) 6.0 Ur Specific [place] (1.005 - 1.030) 1.008 Urine Protein (NEGATIVE) NEGATIVE Urine Glucose (UA) (NEGATIVE) NEGATIVE Urine Ketones (NEGATIVE) NEGATIVE Urine Blood (NEGATIVE) 2+ H Urine Nitrite (NEGATIVE) NEGATIVE Urine Bilirubin (NEGATIVE) NEGATIVE Urine Urobilinogen (0.2 - 1.0 mg/dL) 0.2 Ur Leukocyte Esterase (NEGATIVE) NEGATIVE Urine RBC (0 - 3 RBC/HPF) 11-20 Urine WBC (0 - 3 WBC/HPF) 4-9 H Ur Squamous Epith Cells (NONE SEEN /HPF) NONE S EEN Urine Bacteria (NONE SEEN /HPF) TRACE Hyaline Casts (NONE SEEN /LPF) 0-2 Urine Mucus (NONE SEEN /LPF) TRACE 12/30 1815 Chemistry Sodium (134 - 147 mEq/L) 128 L Potassium (3.4 - 5.0 mEq/L) 3.9 Chloride (100 - 108 mEq/L) 90 L Carbon Dioxide (21 - 33 mEq/l) 30 Anion Gap (0 - 20) 12 BUN (7 - 18 mg/dL) 20 H Creatinine (0.6 - 1.3 mg/dL) 1.4 H Glomerular Filtr Rate (80 - 90) 55.1 L Glucose (70 - 110 mg/dL) 249 H Calcium (8.0 - 10.5 mg/dL) 10.1 Total Bilirubin (0.0 - 1.0 mg/dL) 0.30 Direct Bilirubin (0.0 - 0.30 MG/DL) 0.30 Indirect Bilirubin (MG/DL) 0.00 AST (15 - 37 IUnit/L) 25 ALT (30 - 65 IUnit/L) 19 L Total Alk Phosphatase (20 - 125 IUnit/L) 342 H Troponin I High Sens (0 - 54 ng/L) 7 Total Protein (6.4 - 8.2 g/dL) 9.2 H Albumin (3.4 - 5.0 g/dL) 2.30 L Hematology WBC (4.5 - 11.0 x10 3/uL) 13.1 H RBC (4.00 - 5.60 x10 6/uL) 3.80 L Hgb (12.5 - 16.9 g/dL) 11.0 L Hct (37.5 - 50.7 %) 34.2 L MCV (81.0 - 99.0 fL) 90.0 MCH (27.0 - 33.0 pg) 28.9 MCHC (33.0 - 37.0 g/dL) 32.2 L RDW (11.5 - 14.5 %) 15.4 H Plt Count (150 - 400 x10 3/uL) 770 H MPV (7.0 - 9.0 fL) 10.7 H Neut % (Auto) (56.0 - 77.0 %) 70.2 Lymph % (Auto) (14.0 - 32.0 %) 18.0 Kern % (Auto) (4.8 - 9.0 %) 10.1 H Eos % (Auto) (0.3 - 3.7 %) 0.6 Baso % (Auto) (0.0 - 2.0 %) 0.5 Neut # (Auto) (2.0 - 7.6 x10 3/uL) 9.23 H Lymph # (Auto) (1.0 - 3.8 x10 3/uL) 2.36 Kern # (Auto) (0.1 - 0.8 x10 3/uL) 1.32 H Eos # (Auto) (0.0 - 0.2 x10 3/uL) 0.08 Baso # (Auto) (0.0 - 0.2 x10 3/uL) 0.06 Abs Immat Gran (auto) (0.00 - 0.03 x10 3/uL) 0 .08 H Add Manual Diff NO Immature Gran % (0.0 - 2.0 %) 0.6 Nucleated RBC % (0 - 0 %) 0.0 Nucleated RBCs # (Man) (0.0 - 0.1 x10 3/uL) 0.0 0 Serology SARS-CoV-2 Ag (Rapid) (Negative) Negative Radiology data: Recent Impressions: RADIOLOGY - XR CHEST 1 V 12/30 1830 Report Impression - Status: SIGNED Entered: 12/30/2021 185 IMPRESSION: Left lung base linear atelectasis or scarring. N o acute pulmonary findings. Impression By: [email or web address] - Martin Head M.D. RADIOLOGY - XR FOOT 3 + V LT 12/31 1831 Report Impression - Status: SIGNED Entered: 12/30/2021 1856 IMPRESSION: 1. Limited study, no acute fracture or dislocati on identified. 2. Diffuse soft tissue swelling with distal plan tar soft tissue ulcer. Impression By: Roberta Samayoa Treatment Prophylaxis Treatment Prophylaxis Oxygen: room air Diagnosis, Assessment Plan Plan discussed with: patient, admitting physicia n, consultants, nurse Code Status/Resusc. Discussion Code status: full code Free Text DxA P Notes Free Text DxA P Notes: Assessment and Plan: - Sepsis POA due to Possible left foot OM. - Left Foot OM failed Outpt treatment. - Non healing wound of Left foot. - Hyponatremia. - Left foot pain due to OM. - HX of HTN, HLD, DM type II, Liver disase, Hear t disease. - Morbid obesity BMI 26.8. Plan: Floor. IV ABX Vancomycin and Cefepime for OM. Wound cx. Podiatry consult for Left foot wound. ID consult for left foot OM. Pain meds. Antiemetics. Glycemic control, accu check AC HS, ISS. Diabetic diet. Follow labs and repalce as needed. Continue home meds. Monitor. Chelo Ward 01/03/22 0028: Attestations Physician Attestation Agree w/findings plan: Patient seen and examined and I agree with the f indings and plan as discussed with and documented by Lexa Benz NP Electronically Signed by Lexa Samson NP on at 1147 at 0059 RPT #:[id number] END OF REPORT 2021-12-30 [facility] 19:33:00-00:00 [facility] ([facility]) EMERGENCY PROVIDER REPORT REPORT#:[id number] REPORT STATUS: Signed DATE:12/30/21 TIME: 1932 PATIENT: PEDRO MCGREGOR UNIT #: [id number] ROOM/BED: 5506-1 AGE: 66 SEX: M PCP PHYS: Hayden Yates DO SERVICE AUTHOR: Audrey Crews * ALL edits or amendments must be made on the el ectronic/computer document * Audrey Crews 12/30/211932: HPI-Foot Prob/Inj Free Text HPI Notes Free Text HPI Notes 66-year-old female with a history of hypertensio n, diabetes, hyperlipidemia, osteomyelitis, and CAD who is here today for his left foot infection. He has been admitted to [facility] system multiple times for this complaint. He has seen a custom clothier, Dr. Wharton, and instructed to come to emergency room for further evaluation and treatment. He has associa ender generalized weakness, chills, and nausea/vomiting. He has been on multiple rounds of antibiotics for this infection without relief. He denies chest p ain, dyspnea, changes in his bowel/bladder movements, headache, blurred visio n, or any other symptoms. General Confirmed Patient Yes Initial Greet Date/Time 12/30/211730 Presentation Chief Complaint Foot pain L, Foot swelling L Review of Systems ROS Statements All systems rev neg except as marked. Focused Review of Systems Constitutional Reports: Chills, Weakness - generalized. Musculoskeletal Reports: Extremity pain, Extremity swelling. Den ies: Back pain, Joint pain, Joint swelling, Lumbar pain, Myalgia, Neck pain, Thoracic pain. Past Medical History - Adult Stated Complaint LFT FOOT INFECTION/DIABETIC Home Medications Reported Medications URSODIOL (ACTIGALL) AMITRIPTYLINE (ELAVIL) 25 MG PO DAILY OMEPRAZOLE ER (PriLOSEC) 40 MG PO DAILY ENOXAPARIN (LOVENOX) 40 MG SQ DAILY METOPROLOL TARTRATE (LOPRESSOR) 25 MG PO ONCE PE R DAY ASPIRIN 81 MG PO DAILY ATORVASTATIN (LIPITOR) 80 MG PO DAILY CITALOPRAM (CeleXA) 40 MG PO DAILY INSULIN LISPRO (HumaLOG) 10 UNITS SQ AC BK GRACE HYDROcodone/APAP (HYDROcodone/APAP 5/325 ) 1 TAB PO Q6H PRN PRN PAIN SCALE 7-10 INSULIN GLARGINE (LANTUS SOLOSTAR (15mL)) 35 UNI TS SUBQ BEDTIME TAMSULOSIN ER (FLOMAX) 0.4 MG PO DAILY INSULIN LISPRO (HumaLOG) 10 UNITS SUBQ AC DIN Discontinued Reported Medications LACTULOSE (LACTULOSE 10 GM/15 ML) 45 ML PO DAILY SODIUM HYPOCHLORITE (DAKIN'S 1/4 STRENGTH) 1 PANKAJ LIC TOPICAL DAILY CIPROFLOXACIN (CIPRO) 500 MG PO Q12H DOCUSATE SODIUM (COLACE) 100 MG PO DAILY FUROSEMIDE (LASIX) 40 MG PO DAILY metroNIDAZOLE (FLAGYL) 500 MG PO Q12H Smoking status for patients 13 years old or olde r: Never Smoker Physical Exam Vital Signs Vital Signs First Documented: Result Date Time Pulse Ox 95 12/30 1757 B/P 94/57 12/30 1757 B/P Mean 69 12/30 1757 O2 Delivery Nasal cannula 12/30 1757 O2 Flow Rate 4 12/30 1757 Temp 37.1 12/30 1757 Pulse 103 12/30 1757 Resp 16 12/30 1757 Last Documented: Result Date Time Pulse Ox 96 12/31 1911 B/P 87/58 12/31 1911 B/P Mean 67.5 12/31 1911 Temp 37.2 12/31 1911 Pulse 106 12/31 1911 O2 Delivery Nasal cannula 12/30 1757 O2 Flow Rate 4 12/30 1757 Resp 12/30 Review of Vital Signs Reviewed Focused PE General/Const General/Const Awake, Alert, Cooperative Distress/Hydration Distress mild. Skin Skin Warm, Dry Neurologic Neurologic Oriented X3, Speech NL, Memory NL Gait Abnormality Walks with assistance (uses wheelchair). Additional PE MS Head Head Atraumatic, Normocephalic Ears/Nose/Throat Ears/Nose/Throat Airway patent, Mucous membrane s moist MS Neck Neck Supple, Full range of motion, No swelling, Non-tender, No midline vertebral tend Resp/Chest Respiratory/Chest Breath sounds NL, Breath soun ds = bilat, No respiratory distress, No wheezing, No retractions Cardiovascular Cardiovascular Regular rhythm, Heart sounds NL, Cap refill not delayed, Peripheral circulation NL Heart Rate/Rhythm Tachycardia. Abdomen/GI Abdomen/GI Soft, Non-tender, No guarding, No re bound MS Back Back Inspection NL, Full range of motion, Painl ess range of motion, Non- tender, No midline vertebral tend, No pa raspinal tenderness, No CVA tenderness MS Upper Extrem Upper Extremity/MS Inspection NL, Full range of motion, No swelling, Non- tender MS Lower Extrem Lower Ext/Pelvis/MS Full range of motion, No de formity, Neurologic intact, Vascular intact, No ligamentous injury, Tendon f unction NL Text/Dict Notes left in dressing, clean and dry Interpretation Diagnostics Lab Results Interpretation Results Laboratory Tests 12/30/211814: [Embedded Image Not Available] Laboratory Tests: 12/30 1815 1815 Chemistry Sodium (134 - 147 mEq/L) 128 L Potassium (3.4 - 5.0 mEq/L) 3.9 Chloride (100 - 108 mEq/L) 90 L Carbon Dioxide (21 - 33 mEq/l) 30 Anion Gap (0 - 20) 12 BUN (7 - 18 mg/dL) 20 H Creatinine (0.6 - 1.3 mg/dL) 1.4 H Glomerular Filtr Rate (80 - 90) 55.1 L Glucose (70 - 110 mg/dL) 249 H Lactic Acid (0.4 - 1.9 mmol/L) 1.6 Calcium (8.0 - 10.5 mg/dL) 10.1 Total Bilirubin (0.0 - 1.0 mg/dL) 0.30 Direct Bilirubin (0.0 - 0.30 MG/DL) 0.30 Indirect Bilirubin (MG/DL) 0.00 AST (15 - 37 IUnit/L) 25 ALT (30 - 65 IUnit/L) 19 L Total Alk Phosphatase (20 - 125 IUnit/L) 342 H Troponin I High Sens (0 - 54 ng/L) 7 B-Natriuretic Peptide (0 - 100 PG/ML) 40.0 Total Protein (6.4 - 8.2 g/dL) 9.2 H Albumin (3.4 - 5.0 g/dL) 2.30 L Hematology WBC (4.5 - 11.0 x10 3/uL) 13.1 H RBC (4.00 - 5.60 x10 6/uL) 3.80 L Hgb (12.5 - 16.9 g/dL) 11.0 L Hct (37.5 - 50.7 %) 34.2 L MCV (81.0 - 99.0 fL) 90.0 MCH (27.0 - 33.0 pg) 28.9 MCHC (33.0 - 37.0 g/dL) 32.2 L RDW (11.5 - 14.5 %) 15.4 H Plt Count (150 - 400 x10 3/uL) 770 H MPV (7.0 - 9.0 fL) 10.7 H Neut % (Auto) (56.0 - 77.0 %) 70.2 Lymph % (Auto) (14.0 - 32.0 %) 18.0 Kern % (Auto) (4.8 - 9.0 %) 10.1 H Eos % (Auto) (0.3 - 3.7 %) 0.6 Baso % (Auto) (0.0 - 2.0 %) 0.5 Neut # (Auto) (2.0 - 7.6 x10 3/uL) 9.23 H Lymph # (Auto) (1.0 - 3.8 x10 3/uL) 2.36 Kern # (Auto) (0.1 - 0.8 x10 3/uL) 1.32 H Eos # (Auto) (0.0 - 0.2 x10 3/uL) 0.08 Baso # (Auto) (0.0 - 0.2 x10 3/uL) 0.06 Abs Immat Gran (auto) (0.00 - 0.03 x10 3/uL) 0. 08 H Add Manual Diff NO Immature Gran % (0.0 - 2.0 %) 0.6 Nucleated RBC % (0 - 0 %) 0.0 Nucleated RBCs # (Man) (0.0 - 0.1 x10 3/uL) 0.0 0 Serology SARS-CoV-2 Ag (Rapid) (Negative) Negative Microbiology: Date/Time Procedure - Status Source Growth 12/30 1814 Blood Culture - COMP BLOOD ENTEROCOCCUS FAECALIS 12/30 1814 Blood Culture Gram Stain - COMP BLOOD 12/30 1814 Blood Culture - COMP BLOOD ENTEROCOCCUS FAECALIS 12/30 1814 Blood Culture Gram Stain - COMP BLOOD Recent Impressions: RADIOLOGY - XR CHEST 1 V 12/30 1830 Report Impression - Status: SIGNED Entered: 12/30/20211857 IMPRESSION: Left lung base linear atelectasis or scarring. N o acute pulmonary findings. Impression By: [email or web address] - Martin Head M.D. RADIOLOGY - XR FOOT 3 + V LT 12/31 1831 Report Impression - Status: SIGNED Entered: 12/30/20211855 IMPRESSION: 1. Limited study, no acute fracture or dislocati on identified. 2. Diffuse soft tissue swelling with distal plan tar soft tissue ulcer. Impression By: [email or web address] - Roberta Kelly Lab Imaging Statement Laboratory radiographic studies reviewed and co nsidered in the medical decision-making. Re-Evaluation MDM ED Course Medication(s) Ordered Medication(s) Ordered: Anti-Infective Agents Sig/Josefa Start time Last Medication Dose Route Stop Time Status Admin Cefepime HCl 2 GM X1ED STA 12/30 1757 DC 12/30 Sodium Chloride 100 ML IV 12/30 Vancomycin HCl 1,000 MG X1ED STA 12/30 1756 DC 12/30 Sodium Chloride 250 ML IV 12/30 Electrolytic, Caloric, And Tiesha Sig/Josefa Start time Last Medication Dose Route Stop Time Status Admin Sodium Chloride 1,000 ML X1ED STA 12/30 1913 CA N IV 12/30 2012 Sodium Chloride 1,000 ML X1ED STA 12/31 1755 D C 12/30 IV 12/30 Gastrointestinal Drugs Sig/Josefa Start time Last Medication Dose Route Stop Time Status Admin Ondansetron HCl 4 MG X1ED STA 12/30 1921 DC IV 12/30 Patient Discharge Departure Vital Signs/Condition Vital Signs First Documented: Result Date Time Pulse Ox 95 12/30 1757 B/P 94/57 12/30 1757 B/P Mean 69 12/30 1757 O2 Delivery Nasal cannula 12/30 1757 O2 Flow Rate 4 12/30 1757 Temp 37.1 12/30 1757 Pulse 103 12/30 1757 Resp 16 12/30 1757 Last Documented: Result Date Time Pulse Ox 96 12/31 1911 B/P 87/58 12/31 1911 B/P Mean 67.5 12/31 1911 Temp 37.2 12/31 1911 Pulse 106 12/31 1911 O2 Delivery Nasal cannula 12/30 1757 O2 Flow Rate 4 12/30 1757 Resp 16 12/30 1757 All vital signs available at the time of this en try have been reviewed. Condition Guarded Clinical Impression Clinical Impression Primary Impression: Osteomyelitis of foot Secondary Impressions: Sepsis Disposition Decision Admit Admit Physician Name Chelo Ward MD Admit Physician Hospitalist Request Time 1935 Request Date 12/30/21 )( Admission Accepts Yes )( Accepted Time 1935 )( Accepted Date 12/30/21 Call Information will see patient Discharge/Care Plan Counseled Regarding Diagnosi s, Lab results, Imaging studies, Need for admission Admit Note I have spoken with the patie nt and/or caregivers. I have explained the patient's condition, diagnoses and nurys atment plan based on the information available to me at this time. I have answered the patient's and/ or caregiver's questions and addressed any concerns. The patient and/or careg tabitha have as good an understanding of the patient 's diagnosis, condition and treatment plan as can be expected at this point. The patient has been stabilized within the capability of the emergency department. The patient wi ll be transported for further care and management or will be moved to an observation or inpatient service. I have communicated with the staff or medical p ractitioner taking over this patient's care. Critical Care Time Spent (minutes): 61 Services Performed Patient management by me, Hussain hyde spent at bedside, Reviewing test results, Reviewing imaging, Discussing therese ent care, Documentation in record, Time with fam/surrogate Separately billable procedures excluded from hussain hyde. Patient was critically ill due to: sepsis My treatment and management were: ivf, iv antibiotics CC Note 1 Total critical care time 61 minutes. Total criti janis care time documented does not include time spent on separately billed proc edures or the services of residents, students, nurses or physician assista nts. I personally saw and examined the patient. I have reviewed all diagno stic interpretations and treatment plans as written. I was present for the whalen portions of any procedures performed and the inclusive time noted in any critical care statement. Critical care time includes patient m anagement by me, time spent at the patients bedside, time to review lab and imaging results, discussing patient care, documentation in the medical record, and time spent with the f amily or caregiver. CC Note 2 The high probability of sudden, clinically signi ficant deterioration in the patient's condition required the highest level of my preparedness to intervene urgently. The services I provided to t his patient were to treat and/or prevent clinically significant deterioration that could result in s evere disability or . Services included the follow ing: chart data review, reviewing nursing notes and/ or old charts, documentation time, consu ltant collaboration regarding findings and treatment options, medic ation orders and management, direct patient care, re -evaluations, vital sign assessments and orderin g, interpreting and reviewing diagnostic studies/lab tests. Aggregate critical care time was 61 minutes, whi ch includes only time during which I was engaged in work directly related to the patient's care, as described above, whether at the bedside or elsewhe re in the Emergency Department. It did not include time spent performing other reported procedures or the services of residents, students, nurses or physician assista nts. Rohit Perkins 01/06/22 1011: Past Medical History - Adult Allergies Coded Allergies: hydrocodone (Mild, NAUSIATED 01/05/22) Patient Discharge Departure Supervising Physician Note MidLv Saw Pt Alone I have reviewed the PA/LINK CUTTER's note and plan of car e. I was available for consultation as needed at al l times during the patient's visit in the emergency department. I agree with the clinical impression , plan and disposition. Electronically Signed by Audrey Crews on 12/15 at 1247 at 1012 RPT #:[id number] END OF REPORT
[2022-09-07 19:58] LABS: Absolute Lymphocytes (CBC) 0.5 K/uL (0.7-4.9); Hematocrit 33.8 % (39.6-49.0); Lymphocytes % 1.9 % (15.3-44.8); MCV 83.4 fL (80-100); MPV 9.1 fL (7.6-11.3); RBC Red Blood Cell Count 4.05 M/uL (4.33-5.43)
[2022-09-07 20:01] LABS: Protime INR 1.33
[2022-09-07 20:13] LABS: Albumin 2.2 g/dL (3.4-5.0); Bilirubin Total 0.4 mg/dL (0.2-1.0); Potassium 4.1 mEq/L (3.5-5.1); Protein, Total 9.5 g/dL (6.4-8.2)
[2022-09-07] MEDS ORDERED: NA CHLORIDE 0.9% 2,000 ML ONE (20:29)
[2022-09-07 20:38] LABS: Magnesium 1.5 mg/dL (1.6-2.4)
[2022-09-07] MEDS ORDERED: LIDOCAINE 1% 20 ML MDV ONE (20:46)
--- NOTE | 2022-09-07 21:21 | RAD REPORT ---
EXAM DESCRIPTION: RAD - Chest Single View - 09/07/2022 9:15 pm CLINICAL HISTORY: Right IJ CVL placement Chest pain. COMPARISON: Chest Single View dated 09/07/2022; Chest Single View dated 02/20/2020; Chest Single View d ated 10/15/2015 FINDINGS: Portable technique limits examination quality. The lungs are grossly clear. The heart is enlarged. Sternotomy wires.Right-sided venous catheter has tip in the SVC. No pneumothorax seen. IMPRESSION: No postprocedure pneumothorax.
[2022-09-07] MEDS ORDERED: VANCOMYCIN 1 GM/VIAL ONE (21:41)
[2022-09-07] MEDS ORDERED: NA CHLORIDE 0.9% 250 ML ONE (21:41)
[2022-09-07 21:42] LABS: Blood Morphology Comment NOT SEEN (NOT SEEN); Platelet Estimate INCR
[2022-09-07] MEDS ORDERED: NA CHLORIDE 0.9% 100 ML ONE (21:42)
[2022-09-07] MEDS ORDERED: CEFEPIME 1 GM/VIAL ONE (21:42)
--- NOTE | 2022-09-07 21:43 | ER ---
Nurse's Notes [facility] Name: Pedro Estrella Age: 67 yrs Sex: Male : 1955 Arrival Date: 09/07/2022 Time: 18:52 Bed 2 Private MD: Diagnosis: Severe sepsis without septic shock;Unspecified kidney failure;UTI/ Urinary tract infection, site not specified Presentation: 09/07 19:15 Chief complaint: EMS states: pt has a would to left foot. home health nurse noticed pt as6 was tachycardic and altered and called EMS. EMS reported pt temp was elevated and established a 18g IV to left forearm and gave 1 gram of liquid Tylenol. Coronavirus screen: At this time, the client does not indicate any symptoms associated with coronavirus-19. Ebola Screen: No symptoms or risks identified at this time. Initial Sepsis Screen: Does the patient meet any 2 criteria? Systolic BP < 90 mmHg. Altered Mental Status. HR > 90 bpm. Yes Does the patient have a suspected source of infection? Yes: Skin breakdown/wound. Risk Assessment: Do you want to hurt yourself or someone else? Patient reports no desire to harm self or others. Onset of symptoms was September 07, 2022. 19:15 Acuity: JANIYA 2 as6 19:15 Method Of Arrival: EMS: [facility] as6 Historical: - Allergies: 19:15 HYDROCODONE; as6 - PMHx: 19:15 Diabetes - NIDDM; Hypertension; as6 - PSHx: 19:15 open heart; as6 - Immunization history:: Adult Immunizations up to date. - Social history:: Smoking status: Patient denies any tobacco usage or history of. Screenin:35 [facility] ED Fall Risk Assessment (Adult) Score/Fall Risk Level 3 or more points = High as6 Risk. Abuse screen: Denies threats or abuse. Denies injuries from another. Nutritional screening: No deficits noted. Tuberculosis screening: No symptoms or risk factors identified. Assessment: 19:37 General: Appears ill, slender, Behavior is calm, cooperative, drowsy. Pain: Denies as6 pain. Neuro: Level of Consciousness is lethargic. Cardiovascular: Rhythm is sinus tachycardia. Respiratory: Respiratory effort is even, unlabored, Respiratory pattern is regular, symmetrical. GI: Reports nausea, vomiting, since today. Derm: Wound noted left foot Wound is diabetic. 20:05 General: provider aware of BP. as6 22:06 General: antibiotic administration delayed due to pt being in CT. General: pt as6 lethargic, able to arouse . 22:08 General: daughter [phone]. as6 23:00 Reassessment: No changes from previously documented assessment. Patient and/or family vc1 updated on plan of care and expected duration. Pain level reassessed. pt sleeping. General: Appears Behavior is. Neuro: Level of Consciousness is lethargic, arrousable. Vital Signs: 19:15 BP 91 / 46; Pulse 125; Resp 20 S; Temp 100(O); Pulse Ox 93% on R/A; Weight 99.79 kg as6 (R); Height 6 ft. 4 in. (R); Pain 0/10; 19:34 BP 119 / 55; Pulse 114; Resp 16 S; Pulse Ox 93% on 2 lpm NC; as6 20:05 BP 69 / 50; Pulse 110; Resp 12 S; Pulse Ox 93% on 2 lpm NC; as6 20:38 BP 95 / 51; Pulse 96; Resp 11 S; Temp 100(Ca); Pulse Ox 98% on R/A; as6 21:15 BP 118 / 70; Pulse 97; Resp 10 S; Temp 99(Ca); Pulse Ox 98% on 2 lpm NC; as6 22:05 BP 112 / 70; Pulse 92; Resp 10 S; Temp 99(Ca); Pulse Ox 98% on 2 lpm NC; as6 23:22 BP 117 / 69; Pulse 95; Resp 10; Temp 98.4(Ca); Pulse Ox 96% on 2 lpm NC; as6 23:45 BP 120 / 77; Pulse 95; Resp 8; Pulse Ox 99% ; vc1 19:15 Body Mass Index 26.78 (99.79 kg, 193.04 cm) as6 19:15 Pain Scale: Adult as6 ED Course: 18:57 Patient arrived in ED. rv1 19:00 Marvel Holt PA is PHCP. cp 19:00 Marvel Singleton MD is Attending Physician. cp 19:14 Ranulfo Murillo, TAISHA is Primary Nurse. as6 19:15 Arm band placed on. as6 19:19 Triage completed. as6 19:27 Chest Single View XRAY In Process Unspecified. EDMS 19:35 Bed in low position. Call light in reach. Side rails up X2. Client placed on continuous as6 cardiac and pulse oximetry monitoring. NIBP monitoring applied. 19:35 Inserted saline lock: 18 gauge in right forearm, using aseptic technique. Blood as6 collected. 20:26 Attending Physician role handed off by Marvel Singleton MD sp4 20:26 Kolton He MD is Attending Physician. sp4 20:33 Bhardwaj cath inserted, using sterile technique, 16 Fr., by mn, balloon inflated, to as6 gravity drainage, returned clear yellow urine. Patient tolerated well. 21:00 Provided Education on: Procedure Consent. as6 21:00 Assisted provider with central line placement. Set up central line tray. Triple lumen as6 line placed in right internal jugular. Line placed by Marvel JOHNSON Placement verified by CXR, blood return, Dressed with Tegaderm, Patient tolerated well. 21:16 Chest Single View XRAY In Process Unspecified. EDMS 21:41 Yanira Glasgow is Hospitalizing Provider. cp 21:43 CT Head Brain wo Cont In Process Unspecified. EDMS 22:10 Booker Sam is Hospitalizing Provider. cp 23:22 Patient admitted, IV remains in place. as6 Administered Medications: 19:45 Drug: NS 0.9% IV 1000 ml Route: IV; Rate: 1 bolus; Site: right forearm; as6 19:45 Drug: Ondansetron IVP 4 mg Route: IVP; Site: right forearm; as6 20:31 Drug: NS 0.9% IV (30 ml/kg) 30 ml/kg Route: IV; Rate: bolus; Site: right forearm; as6 20:53 Drug: Lidocaine Infiltration (1 %) 20 ml {Note: Administered by ER provider.} Volume: jb4 20 ml; Route: Infiltration; 21:50 Drug: Cefepime IVPB 1 grams Route: IVPB; Rate: 200 ml/hr; Infused Over: 30 mins; Site: as6 right jugular; 21:50 Drug: vancoMYCIN IVPB 1 grams Route: IVPB; Infused Over: 2 hrs; Site: right jugular; as6 22:32 Drug: Magnesium Sulfate IVPB 1 grams Route: IVPB; Infused Over: 1 hrs; Site: right as6 jugular; Medication: 19:35 VIS not applicable for this client. as6 Outcome: 21:43 Decision to Hospitalize by Provider. cp 22:33 Condition: stable as6 22:33 Instructed on the need for admit. 09/08 01:26 Admitted to Tele accompanied by tech, via stretcher, room 428, with oxygen. vc1 01:27 Patient left the ED. vc1 Signatures: Dispatcher [employer] EDMS Marvel Holt PA PA cp Bryson, James, RN RN jb4 Ranulfo Murillo RN RN as6 Pau Chen RN RN vc1 Rosario Jo rv1 Kolton He MD MD sp4
--- NOTE | 2022-09-07 21:43 | EDPHYS ---
Physician Documentation [facility] Name: Pedro Estrlela Age: 67 yrs Sex: Male : 1955 Arrival Date: 09/07/2022 Time: 18:52 Bed 2 Private MD: ED Physician Kolton He HPI: 09/07 19:10 This 67 yrs old Male presents to ER via EMS with complaints of fever, AMS, cp left foot ulcer . 19:10 EMS reports patient with measured fever upon their arrival. Given 1 grm Tylenol. cp 19:10 The patient presents with confusion, decreased mental status. Onset: The cp symptoms/episode began/occurred today. Possible causes: sepsis, chronic wound to left foot. Associated signs and symptoms: Pertinent positives: fever, Pertinent negatives: abdominal pain, chest pain, diarrhea, seizure, vomiting. Current symptoms: In the emergency department the patient's symptoms have improved. Patient's baseline: Neuro: alert and fully oriented, Motor: no deficits, Ambulation: walks with assist only, Speech: normal. Historical: - Allergies: 19:15 HYDROCODONE; as6 - PMHx: 19:15 Diabetes - NIDDM; Hypertension; as6 - PSHx: 19:15 open heart; as6 - Immunization history:: Adult Immunizations up to date. - Social history:: Smoking status: Patient denies any tobacco usage or history of. ROS: 19:15 Constitutional: Positive for fever. cp 19:15 Cardiovascular: Negative for chest pain. 19:15 Respiratory: Negative for cough, shortness of breath, wheezing. 19:15 Abdomen/GI: Negative for abdominal pain, vomiting, diarrhea, constipation. 19:15 Skin: Positive for of the left heel, chronic wound. 19:15 Neuro: Positive for altered mental status. 19:15 ENT: Negative for drainage from ear(s), ear pain, sore throat, difficulty swallowing, cp difficulty handling secretions. 19:15 All other systems are negative. cp Exam: 19:20 Constitutional: The patient appears in no acute distress, alert, awake, cp non-diaphoretic, non-toxic, well developed, well nourished, obviously ill. 19:20 Head/Face: Normocephalic, atraumatic. cp 19:20 Eyes: Periorbital structures: appear normal, Pupils: equal, round, and reactive to cp light and accomodation, Extraocular movements: intact throughout, Conjunctiva: normal, no exudate, no injection, Sclera: no appreciated abnormality, Lids and lashes: appear normal, bilaterally. 19:20 ENT: External ear(s): are unremarkable, Nose: is normal, Mouth: Lips: moist, Oral mucosa: pink and intact, moist, Posterior pharynx: is normal, airway is patent, no erythema, no exudate. 19:20 Neck: ROM/movement: is normal, is supple, without pain, no range of motions cp limitations, no meningismus, no nuchal rigidity. 19:20 Chest/axilla: Inspection: normal, Palpation: crepitus, is not appreciated, tenderness, is not appreciated. 19:20 Cardiovascular: Rate: tachycardic, Rhythm: regular, Edema: is not appreciated, JVD: is not appreciated. 19:20 Respiratory: the patient does not display signs of respiratory distress, Respirations: normal, no use of accessory muscles, no retractions, labored breathing, is not present, Breath sounds: are clear throughout, no decreased breath sounds, no stridor, no wheezing. 19:20 Abdomen/GI: Inspection: abdomen appears normal, Bowel sounds: active, all quadrants, Palpation: abdomen is soft and non-tender, in all quadrants. 19:20 Back: pain, is absent, ROM is normal. 19:20 Skin: chronic wound noted left heal with mild purulent drainage, minimal erythema noted. 19:20 Neuro: Orientation: to person, situation, Not oriented to place, time, Mentation: able to follow commands, slow to respond, confused, Motor: moves all fours, general weakness with no focal deficits. 19:35 ECG was reviewed by the Attending Physician. cp Vital Signs: 19:15 BP 91 / 46; Pulse 125; Resp 20 S; Temp 100(O); Pulse Ox 93% on R/A; Weight 99.79 kg as6 (R); Height 6 ft. 4 in. (R); Pain 0/10; 19:34 BP 119 / 55; Pulse 114; Resp 16 S; Pulse Ox 93% on 2 lpm NC; as6 20:05 BP 69 / 50; Pulse 110; Resp 12 S; Pulse Ox 93% on 2 lpm NC; as6 20:38 BP 95 / 51; Pulse 96; Resp 11 S; Temp 100(Ca); Pulse Ox 98% on R/A; as6 21:15 BP 118 / 70; Pulse 97; Resp 10 S; Temp 99(Ca); Pulse Ox 98% on 2 lpm NC; as6 22:05 BP 112 / 70; Pulse 92; Resp 10 S; Temp 99(Ca); Pulse Ox 98% on 2 lpm NC; as6 23:22 BP 117 / 69; Pulse 95; Resp 10; Temp 98.4(Ca); Pulse Ox 96% on 2 lpm NC; as6 23:45 BP 120 / 77; Pulse 95; Resp 8; Pulse Ox 99% ; vc1 19:15 Body Mass Index 26.78 (99.79 kg, 193.04 cm) as6 19:15 Pain Scale: Adult as6 Procedures: 21:03 Central Line: the site was prepped with Betadine, in sterile fashion, a triple lumen sp4 catheter was inserted, in the right internal jugular vein, in 1 attempts. placement was verified, by CXR, by blood return, ultrasound guided line , the site was dressed with Tegaderm, using sterile technique, the patient tolerated the procedure, well, Triple-lumen right internal jugular CVL placed at 16 cm level full resuscitation secondary to septic shock. MDM: 19:04 Patient medically screened. angelia 21:35 Data reviewed: vital signs, nurses notes, lab test result(s), EKG, radiologic studies, cp CT scan, plain films. 21:35 Consideration of Admission/Observation Patient was admitted/placed on observation. cp Management of patient was discussed with the following: Hospitalist: Yanira Glasgow NP will admit after discussion. Independent interpretation of the following test(s) in the Emergency Department EKG: See my EKG interpretation above. Historians other than the Patient: Daughter/Son: daughter and EMS provide HPI. Care significantly affected by the following chronic conditions: Diabetes, Hypertension. ED course: Patient qualifies for sever sepsis w/o shock: A) source of infection is urine, B) HR >90, WBC >12, C) SBP < 90 times 1. 09/07 19:10 Order name: Blood Culture Adult (2) cp 09/07 19:10 Order name: CBC with Diff; Complete Time: 22:02 cp 09/07 20:16 Interpretation: Normal except: WBC 27.00; RBC 4.05; HGB 10.7; HCT 33.8; MCH 26.4; MCHC cp 31.6; PLT 681; RDW 17.8; FRANCO% 93.7; LYM% 1.9; NEUT A 25.3; LYMA 0.5. 09/07 19:10 Order name: CMP; Complete Time: 20:14 09/07 21:13 Interpretation: Normal except: NA 134; GLUC 181; BUN 28; CRE 2.20; GFR 32; ALT 12; ALK cp 266; TP 9.5; ALB 2.2; GLOB 7.3; A/G 0.3. 09/07 19:10 Order name: Lactate w/ 2H reflex if indic.; Complete Time: 20:14 09/07 21:13 Interpretation: Abnormal: LAC 2.4. 09/07 19:10 Order name: Protime (+inr); Complete Time: 20:14 09/07 21:13 Interpretation: Reviewed. 09/07 19:10 Order name: Ptt, Activated; Complete Time: 20:14 09/07 19:10 Order name: Urinalysis w/ reflexes; Complete Time: 22:32 09/07 22:32 Interpretation: Normal except: [facility] Extremely Turbid; UBLD 2+; UPROT 1+; UESTR 500; cp UWBC >50; URBC >50; UBACT 20-50; UWBC Clump Many. 09/07 19:10 Order name: Wound Culture 09/07 20:15 Order name: BNP; Complete Time: 21:12 09/07 21:13 Interpretation: Abnormal: NT PRO-BNP 1695. 09/07 20:15 Order name: Magnesium; Complete Time: 21:12 09/07 21:13 Interpretation: Abnormal: MG 1.5. 09/07 20:16 Order name: Influenza Screen (a \T\ B) 09/07 21:10 Order name: Manual Differential; Complete Time: 22:02 EDMS 09/07 22:02 Interpretation: Normal except: SEGS 82; BANDS [F] 8; LYM 6. 09/07 22:07 Order name: CBC with Automated Diff EDMS 09/07 22:07 Order name: CBC with Automated Diff EDMS 09/07 22:07 Order name: Comprehensive Metabolic Panel [facility] 09/07 22:07 Order name: Comprehensive Metabolic Panel [facility] 09/07 22:07 Order name: Comprehensive Metabolic Panel [facility] 09/07 22:07 Order name: Comprehensive Metabolic Panel [facility] 09/07 22:07 Order name: Lactate w/ 2H reflex if indic. [facility] 09/07 22:07 Order name: Lactate w/ 2H reflex if indic. [facility] 09/07 22:07 Order name: Lactate w/ 2H reflex if indic. [facility] 09/07 22:07 Order name: Magnesium [facility] 09/07 22:07 Order name: Magnesium [facility] 09/07 22:07 Order name: Magnesium [facility] 09/07 22:07 Order name: Magnesium [facility] 09/07 22:07 Order name: Phosphorus [facility] 09/07 22:07 Order name: Phosphorus [facility] 09/07 22:07 Order name: Phosphorus [facility] 09/07 22:07 Order name: Phosphorus [facility] 09/07 22:25 Order name: Urine Culture [facility] 09/07 23:03 Order name: Lactate Sepsis 2 HR Follow-up [facility] 09/07 19:10 Order name: Chest Single View XRAY; Complete Time: 19:41 09/07 19:10 Order name: CT Head Brain wo Cont; Complete Time: 22:02 09/07 21:05 Order name: Chest Single View XRAY; Complete Time: 21:37 sp4 09/07 22:40 Order name: CT Stone Protocol 09/07 19:10 Order name: EKG; Complete Time: 19:11 09/07 21:59 Order name: CONS Physician Consult [facility] 09/07 22:07 Order name: CONS Physician Consult [facility] 09/07 22:07 Order name: NPO [facility] 09/07 19:10 Order name: Accucheck; Complete Time: 19:36 cp 09/07 19:10 Order name: Cardiac monitoring; Complete Time: 19:15 09/07 19:10 Order name: EKG - Nurse/Tech; Complete Time: 19:34 09/07 19:10 Order name: IV Saline Lock - Large Bore; Complete Time: 19:15 09/07 19:10 Order name: Labs collected and sent; Complete Time: 19:34 09/07 19:10 Order name: O2 Per Protocol; Complete Time: 19:15 cp 09/07 19:10 Order name: O2 Sat Monitoring; Complete Time: 19:15 cp 09/07 19:10 Order name: Vital Signs; Complete Time: 19:15 cp 09/07 20:20 Order name: Central Line Kit; Complete Time: 20:31 cp 09/07 20:20 Order name: Bhardwaj; Complete Time: 20:31 cp EC:35 Rate is 118 beats/min. Rhythm is regular. QRS interval is normal. QT interval is cp prolonged at 422 msec. T waves are Inverted in leads I, aVL. Interpreted by me. Reviewed by me. Administered Medications: 19:45 Drug: NS 0.9% IV 1000 ml Route: IV; Rate: 1 bolus; Site: right forearm; as6 19:45 Drug: Ondansetron IVP 4 mg Route: IVP; Site: right forearm; as6 20:31 Drug: NS 0.9% IV (30 ml/kg) 30 ml/kg Route: IV; Rate: bolus; Site: right forearm; as6 20:53 Drug: Lidocaine Infiltration (1 %) 20 ml {Note: Administered by ER provider.} Volume: jb4 20 ml; Route: Infiltration; 21:50 Drug: Cefepime IVPB 1 grams Route: IVPB; Rate: 200 ml/hr; Infused Over: 30 mins; Site: as6 right jugular; 21:50 Drug: vancoMYCIN IVPB 1 grams Route: IVPB; Infused Over: 2 hrs; Site: right jugular; as6 22:32 Drug: Magnesium Sulfate IVPB 1 grams Route: IVPB; Infused Over: 1 hrs; Site: right as6 jugular; Disposition: 09/08 00:00 Critical Care:. cp 01:23 Co-signature as Attending Physician, Kolton He MD I agree with the assessment sp4 and plan of care. I reviewed the patient's care provided by Advanced Practice Provider \T\ agree w/ the diagnosis \T\ care plan. I personally saw the pt \T\ performed a substantive portion of the visit, incldng all aspects of the (History/Exam/Medical Decision Making). Disposition Summary: 09/07/22 21:43 Hospitalization Ordered Hospitalization Status: Inpatient Admission cp Condition: Stable cp Problem: new cp Symptoms: have improved cp Bed/Room Type: Standard cp Provider: Booker Sam(09/07/22 22:11) cp Location: Telemetry/MedSurg (Inpatient)(09/08/22 00:24) ll3 Room Assignment: 428(09/08/22 00:24) ll3 Diagnosis - Severe sepsis without septic shock cp - Unspecified kidney failure cp - UTI/ Urinary tract infection, site not specified cp Forms: - Medication Reconciliation Form cp - SBAR form cp Critical care time excluding procedures: 00:00 Critical care time: Bedside Care: 5 minutes, Consultation: 20 minutes, Family cp Intervention: 10 minutes. Total time: 35 minutes Signatures: Dispatcher [employer] EDMS Marvel Singleton MD MD cha Page, Corey, PA PA cp Gavin Fitzgerald, TAISHA RN jb4 Ranulfo Murillo RN RN as6 Adri Brito RN RN ll3 Kolton He MD MD sp4 Corrections: (The following items were deleted from the chart) 09/07 22:04 20:17 SARS-COV-2 RT PCR+[id number].BRZ ordered. [facility] EDMS 22:11 21:43 Yanira Glasgow cp cp 22:11 21:43 Telemetry/MedSurg (Inpatient) cp cp 22:11 21:43 cp cp 09/08 00:24 09/07 22:11 Intensive Care Unit cp ll3 09/08 00:24 09/07 22:11 cp ll3 09/09 00:14 09/07 21:03 This 67 yrs old Male presents to ER via EMS with complaints of cp fever, AMS, left foot ulcer . sp4 09/09 00:09/07 21:00 The patient presents with confusion, decreased mental status, cp cp 09/09 00:09/07 19:03 Onset: The symptoms/episode began/occurred today, cp cp 09/09 00:09/07 19:03 Possible causes: sepsis, chronic wound to left foot, cp cp 09/09 00:09/07 19:03 Associated signs and symptoms: Pertinent positives: fever, Pertinent cp negatives: abdominal pain, chest pain, diarrhea, seizure, vomiting, cp 09/09 00:09/07 19:03 Current symptoms: In the emergency department the patient's symptoms have cp improved, cp 09/09 00:09/07 19:03 Patient's baseline: Neuro: alert and fully oriented, Motor: no deficits, cp Ambulation: walks with assist only, Speech: normal, cp 09/09 00: 00:11 EMS reports patient with measured fever upon their arrival. Given 1 grm Tylenol. cp cp 00:09/07 21:05 Constitutional: Positive for fever, cp cp 09/09 00:09/07 21:05 Cardiovascular: Negative for chest pain, cp cp 09/09 00:09/07 21:05 Respiratory: Negative for cough, shortness of breath, wheezing, cp cp 09/09 00:09/07 21:05 Abdomen/GI: Negative for abdominal pain, vomiting, diarrhea, constipation, cp cp 09/09 00:09/07 21:05 Neuro: Positive for altered mental status, cp cp 09/09 00:09/07 21:05 Skin: Positive for of the left heel, chronic wound, cp cp
--- NOTE | 2022-09-07 21:50 | RAD REPORT ---
EXAM DESCRIPTION: CT - Head Brain Wo Cont - 09/07/2022 9:41 pm CLINICAL HISTORY: MENTAL STATUS CHANGE Headache, drowsiness COMPARISON: Head Brain Wo Cont dated 10/15/2015 TECHNIQUE: All CT scans are performed using dose optimization technique as appropriate and may inclu de automated exposure control or mA/KV adjustment according to patient size. FINDINGS: No intracranial hemorrhage, hydrocephalus or extra-axial fluid collection.No areas of brai n edema or evidence of midline shift. The paranasal sinuses and mastoids are clear. The calvarium is intact. IMPRESSION: No acute intracranial abnormality.
[2022-09-07] MEDS ORDERED: ONDANSETRON 4 MG/2 ML VIAL IV PRN (22:05)
[2022-09-07 22:22] LABS: Specific Gravity 1.007 (1.005-1.030); Urine Bacteria 20-50 /HPF (<20); Urine Bilirubin NEGATIVE (Negative); Urine Blood 2+ (Negative); Urine Clarity Extremely Turbid (Clear); Urine Color Light-Orange (Yellow); Urine Crystals Unidentified Few /HPF (None Seen); Urine Glucose NEGATIVE (Negative); Urine Protein 1+ (Negative); Urine RBC >50 /HPF (None Seen); Urine Urobilinogen Normal (Normal); Urine WBC Clump Many /HPF (None Seen); Urine pH 5.5 (5.0-7.0)
[2022-09-07] MEDS ORDERED: MAGNESIUM SULFATE 1 gm IVPB 1 GM/100 ML BAG IV ONE (22:34)
--- NOTE | 2022-09-07 23:01 | P.HP ---
Certification for Inpatient Patient admitted to: Inpatient With expected LOS: <2 Midnights Patient will require the following post-hospital care: None Practitioner: I am a practitioner with admitting privileges, knowledge of patient current condition, hospital course, and medical plan of care. Services: Services provided to patient in accordance with Admission requirements found in Title 42 Section 412.3 of the Code of Federal Regulations Patient History Date of Service: 09/08/22 Reason for admission: fever History of Present Illness: 67-year-old male with a past medical history of insulin-dependent diabetes mellitus, depression, anemia, hyperlipidemia, UTIs, presents to the emergency room with confusion. Daughter is at bedside is primary historian reports that her father lives alone, reports good family support neighbors and family check on him daily. Reports he was recently discharged in July 19 for UTI and [facility]. Family reports she was here because she did not get enough answers at previous facility. She reports father has chronic bilateral lower extremity foot wounds is receiving home health with dressing changes. Reports he was recently seen by the urologist with no significant medication changes or treatments. Reports associated fever, hypotension on arrival to the emergency room, was treated for severe sepsis in ED. Central line was placed in ED for IV fluids and IV antibiotics for sepsis treatment. Plan to admit for severe sepsis without septic shock, unspecific kidney failure, chronic left foot wound. Allergies No Known Allergies Allergy (Verified 11/05/13 13:00) Home medications list reviewed: Yes - Past Medical/Surgical History -: Hyperlipidemia -: Insulin-dependent diabetes mellitus -: Anemia -: History of urinary tract infection -: Bladder cancer -: Insulin-dependent diabetes mellitus this -: Depression -: GERD -: Unable to obtain due to patient confusion - Social History Smoking Status: Never smoker Alcohol use: No CD- Drugs: No Caffeine use: No Physical Examination - Physical Exam General: Alert, In no apparent distress, Confused HEENT: Atraumatic, Normocephalic, PERRLA Neck: Supple, 2+ carotid pulse no bruit, JVD not distended Respiratory: Clear to auscultation bilaterally, Normal air movement Cardiovascular: No edema, Normal pulses, Regular rate/rhythm, Other (Hypotensive on arrival to the emergency room) Capillary refill: <2 Seconds Gastrointestinal: Normal bowel sounds, Soft and benign Musculoskeletal: No clubbing, No swelling Integumentary: Other (Bilateral lower extremity ankle wounds) Neurological: Normal speech, Other (Alert and oriented x1) - Studies Laboratory Data (last 24 hrs) 09/07/22 19:31: Magnesium 1.5 L 09/07/22 19:31: PT 14.6 H, INR 1.33, APTT 32.2 09/07/22 19:31: Sodium 134 L, Potassium 4.1, BUN 28 H, Creatinine 2.20 H, Glucose 181 H, Total Bilirubin 0.4, AST 32, ALT 12 L, Alkaline Phosphatase 266 H 09/07/22 19:31: WBC 27.00 H, Hgb 10.7 L, Hct 33.8 L, Plt Count 681 H Assessment and Plan - Plan Assessment plan Severe sepsis without shock Metabolic encephalopathy Unspecified kidney failure Acute cystitis cardiomegaly Microcytic anemia Chronic left ankle wound hypomagnesium Sap-mwkwenr-vruxgxeii diabetes mellitus Essential hypertension Hyperlipidemia GERD DVT prophylaxis Assessment plan Severe sepsis without shock Acute cystitis Chronic left foot wound Lactic 2.4 repeat lactate 1.0, WBC 27.00,with Left Shift UA leuk >500, +2 blood, nitrite neg CT abd Stone protocol pending Infectious disease consult Sepsis bolus, IV fluids, IV antibiotics, Trend lactic, trend WBCs, blood cultures, urine cultures Metabolic encephalopathy Fall precautions supportive treatment CT head IMPRESSION: No acute intracranial abnormality. cardiomegaly Echo ordered in am, card consulted BNP 1695, Trop CXR The heart is enlarged. Sternotomy wires.Right-sided venous catheter has tip in the SVC. No pneumothorax seen. IMPRESSION: No postprocedure pneumothorax. Unspecified kidney failure Trend BUN and creatinine Nephrology consultUA leuk >500, +2 blood, nitrite neg CT abd Stone protocol pending (as neg per Rad prior to Adm) Microcytic anemia Microcytc Anemia 10.7, 4.05, Chronic left ankle wound Wound care consulted hypomagnesium Mag 1.5 trend electrolytes, replace prn Bsm-nffwfbw-dnuryakyw diabetes mellitus Essential hypertension Hyperlipidemia GERD Resume appropriate home medications N.p.o. until more alert Full code DVT prophylaxis heparin Discharge Plan: Home Plan to discharge in: 48 Hours - Advance Directives Does patient have a Living Will: No Does patient have a Durable POA for Healthcare: No - Code Status/Comfort Care Code Status: Full Code Physician Review: Patient Assessed, Agree with Above Assessment and Plan Time Spent Managing Pts Care (In Minutes): 50
[2022-09-08] MEDS ORDERED: FUROSEMIDE 40 MG/4 ML VIAL IV ONE (01:59)
[2022-09-08] MEDS: NA CHLORIDE 0.9% 1,000 ML IV SCH ×6 (02:17→23:00)
[2022-09-08] MEDS: HEPARIN 5000 UNIT/ML 1 ML VIAL SQ SCH ×3 (02:18→18:26)
[2022-09-08] MEDS ORDERED: D50W 25 GM/50 ML SYRINGE IV PRN (04:43)
[2022-09-08] MEDS ORDERED: GLUCAGON 1 MG/VIAL IM PRN (04:43)
[2022-09-08 04:46] VITALS: BMI 26.7
[2022-09-08] MEDS ORDERED: D10W 125 ML IV PRN (04:57)
[2022-09-08] MEDS: INSULIN -REGULAR HUMAN 50 UNIT/0.5 ML ML SQ SCH ×3 (05:22→18:00)
[2022-09-08 06:28] LABS: Absolute Lymphocytes (CBC) 2.1 K/uL (0.7-4.9); Hematocrit 34.5 % (39.6-49.0); Lymphocytes % 5.9 % (15.3-44.8); MCV 85.5 fL (80-100); MPV 9.2 fL (7.6-11.3); RBC Red Blood Cell Count 4.03 M/uL (4.33-5.43)
[2022-09-08 07:00] LABS: Albumin 2.1 g/dL (3.4-5.0); Bilirubin Total 0.4 mg/dL (0.2-1.0); Magnesium 1.8 mg/dL (1.6-2.4); Potassium 5.3 mEq/L (3.5-5.1); Protein, Total 9.5 g/dL (6.4-8.2)
[2022-09-08 07:31] LABS: Blood Morphology Comment NOT SEEN (NOT SEEN); Platelet Estimate ADEQ; White Blood Cell Scan OK (OK)
[2022-09-08] MEDS ORDERED: MAGNESIUM SULFATE 1 gm IVPB 1 GM/100 ML BAG IV ONE (08:00)
[2022-09-08] MEDS ORDERED: HEPARIN 5000 UNIT/ML 1 ML VIAL SQ SCH (09:00)
--- NOTE | 2022-09-08 09:24 | P.CNS ---
Date of Consult: 09/08/22 Reason for Consult: WISAM/ CKD Requesting Physician: luis alberto harris Chief Complaint: fever History of Present Illness: 67-year-old male with a past medical history of insulin-dependent diabetes mellitus, depression, anemia, hyperlipidemia, UTIs, presents to the emergency room with confusion. Daughter is at bedside is primary historian reports that her father lives alone, reports good family support neighbors and family check on him daily. Reports he was recently discharged in July 19 for UTI and [facility]. Family reports she was here because she did not get enough answers at previous facility. She reports father has chronic bilateral lower extremity foot wounds is receiving home health with dressing changes. Reports he was recently seen by the urologist with no significant medication changes or treatments. Reports associated fever, hypotension on arrival to the emergency room, was treated for severe sepsis in ED. Central line was placed in ED for IV fluids and IV antibiotics for sepsis treatment. Plan to admit for severe sepsis without septic shock, unspecific kidney failure, chronic left foot wound. He denies NSAIDs. He reports difficulty with emptying his bladder, and the bladder medications do not work. He saw his urologist yesterday, Dr. Karimi. 21:03 This 67 yrs old Male presents to ER via EMS with complaints of fever, AMS, sp4 left foot ulcer . Allergies No Known Allergies Allergy (Verified 11/05/13 13:00) - Past Medical/Surgical History Diabetic: Yes -: Hyperlipidemia -: IDDM II -: Anemia -: History of urinary tract infection -: Bladder cancer -: Depression -: GERD -: Unable to obtain due to patient confusion - Social History Alcohol use: No CD- Drugs: No Caffeine use: No Place of Residence: Home Review of Systems 10-point ROS is otherwise unremarkable General: Weakness ENT: Other (Thirsty) Physical Examination Temp Pulse Resp BP Pulse Ox 98.2 F 93 H 16 155/78 H 95 09/08/22 08:00 09/08/22 08:00 09/08/22 08:00 09/08/22 08:00 09/08/22 08:00 General: In no apparent distress, Oriented x3, Cooperative HEENT: Atraumatic Neck: Supple Respiratory: Clear to auscultation bilaterally Cardiovascular: No edema, Regular rate/rhythm Gastrointestinal: Soft and benign, Non-distended Musculoskeletal: No clubbing, No contractures Integumentary: No rashes, No cyanosis, Diabetic ulcer (BL feet) Neurological: Normal speech Urinary: Elena catheter Laboratory Data (last 24 hrs) 09/07/22 19:31: Magnesium 1.5 L 09/07/22 19:31: PT 14.6 H, INR 1.33, APTT 32.2 09/07/22 19:31: Sodium 134 L, Potassium 4.1, BUN 28 H, Creatinine 2.20 H, Glucose 181 H, Total Bilirubin 0.4, AST 32, ALT 12 L, Alkaline Phosphatase 266 H 09/07/22 19:31: WBC 27.00 H, Hgb 10.7 L, Hct 33.8 L, Plt Count 681 H Imagings Data: EXAM DESCRIPTION: RAD - Chest Single View - 09/07/2022 9:15 pm CLINICAL HISTORY: Right IJ CVL placement Chest pain. COMPARISON: Chest Single View dated 09/07/2022; Chest Single View dated 02/20/2020; Chest Single View dated 10/15/2015 FINDINGS: Portable technique limits examination quality. The lungs are grossly clear. The heart is enlarged. Sternotomy wires.Right-sided venous catheter has tip in the SVC. No pneumothorax seen. IMPRESSION: No postprocedure pneumothorax EXAM DESCRIPTION: CT - Head Brain Wo Cont - 09/07/2022 9:41 pm CLINICAL HISTORY: MENTAL STATUS CHANGE Headache, drowsiness COMPARISON: Head Brain Wo Cont dated 10/15/2015 TECHNIQUE: All CT scans are performed using dose optimization technique as appropriate and may include automated exposure control or mA/KV adjustment according to patient size. FINDINGS: No intracranial hemorrhage, hydrocephalus or extra-axial fluid collection.No areas of brain edema or evidence of midline shift. The paranasal sinuses and mastoids are clear. The calvarium is intact. IMPRESSION: No acute intracranial abnormality. EXAM DESCRIPTION: RAD - Chest Single View - 09/07/2022 7:25 pm CLINICAL HISTORY: altered mental status Chest pain. COMPARISON: Chest Single View dated 02/20/2020; Chest Single View dated 10/15/2015 FINDINGS: Portable technique limits examination quality. The lungs are grossly clear. The heart is mildly enlarged in size. No displaced fractures.Sternotomy wires present. IMPRESSION: No acute intrathoracic process suspected. EXAM DESCRIPTION: CT Abdomen and Pelvis Without Intravenous Contrast CLINICAL HISTORY: The patient is 67 years old and is Male; kidney failure TECHNIQUE: Axial computed tomography images of the abdomen and pelvis without intravenous contrast. Sagittal and coronal reformatted images were created and reviewed. This CT exam was performed using one or more of the following dose reduction techniques: automated exposure control, adjustment of the mA and/or kV according to patient size, and/or use of iterative reconstruction technique. COMPARISON: No relevant prior studies available. FINDINGS: Lung bases: Dependent atelectasis in the lungs. ABDOMEN: Liver: Hepatomegaly with diffuse hepatic steatosis. Gallbladder and bile ducts: Gallbladder is surgically absent. No ductal dilation. Pancreas: Unremarkable. No ductal dilation. Spleen: Spleen is not seen. Adrenals: Unremarkable. No mass. Kidneys and ureters: Moderate right hydroureteronephrosis and perinephric/periureteral stranding. No obstructing stone identified. Mild left perinephric stranding. Stomach and bowel: Unremarkable. No obstruction. No mucosal thickening. PELVIS: Appendix: No findings to suggest acute appendicitis. Bladder: Diffuse bladder wall thickening. The Elena catheter in place. Reproductive: Penile pump in place. ABDOMEN and PELVIS: Intraperitoneal space: Unremarkable. No free air. No significant fluid collection. Bones/joints: Disc space narrowing with degenerative endplate changes in the spine. No acute fracture. No dislocation. Soft tissues: Unremarkable. Vasculature: Scattered atherosclerotic vascular calcifications. No abdominal aortic aneurysm. Lymph nodes: Prominent left inguinal lymph node. IMPRESSION: 1. Moderate right hydroureteronephrosis and perinephric/periureteral stranding. No obstructing stone identified. Correlate with any concern for recent stone passage or infection. 2. Diffuse bladder wall thickening. Correlate with any concern for cystitis, chronic bladder outlet obstruction, or other infiltrative process. 3. Additional non-emergent findings as above. Conclusions/Impression: Stage II WISAM in the setting of sepsis & hypovolemia CKD II with Proteinuria -No NSAIDs -Continue IVF with NS -Abd CT reviewed Hyponatremia -Continue IVF with NS Hyperkalemia -NPO at this time -Continue IVF Hypomagnesemia -Replete Mg as ordered HTN with CKD -Hold antihypertensives at this time DM II with CKD -RISS Hypoalbuminemia -Consider Nepro Anemia in chronic illness -Monitor H&H Acute cystitis with hematuria Sepsis Bladder Outlet Obstruction -Continue abx -Follow up cultures -Continue elena -Follow up with urology Hospitalist and ER notes reviewed Thank you kindly for the consultation
--- NOTE | 2022-09-08 09:59 | P.CNS ---
Date of Consult: 09/08/22 Reason for Consult: Severe Sepsis Chief Complaint: fever History of Present Illness: Patient is a 67 yo male with a history of diabetes, chronic right heel diabetic ulcer, multiple UTIs and history of bladder cancer who presented to the ED for altered mental status/confusion. Patient was recently admitted to [facility] in July for urinary retention and UTI. At the time, urine culture growing yeast and patient was prescribed fluconazole PO for 14 days. He has a chronic left heel wound for which he sees podiatry/wound care as outpatient. Patient was found to have severe sepsis and was admitted for further management. Allergies No Known Allergies Allergy (Verified 11/05/13 13:00) Home medications list reviewed: Yes - Past Medical/Surgical History Diabetic: Yes -: Hyperlipidemia -: IDDM II -: Anemia -: History of urinary tract infection -: Bladder cancer -: Insulin-dependent diabetes mellitus this -: Depression -: GERD -: Charcot's joint of left foot -: Right ankle triple arthrodesis (11/29/2017) -: Left tibiotalis arthrodesis (04/13/2022) -: Partial resection of pancreas -: Splenectomy - Social History Alcohol use: No CD- Drugs: No Caffeine use: No Place of Residence: Home Review of Systems 10-point ROS is otherwise unremarkable General: Weakness Genitourinary: Retention Integumentary: Other (chronic wound left heel) Physical Examination Temp Pulse Resp BP Pulse Ox 98.2 F 93 H 16 155/78 H 95 09/08/22 08:00 09/08/22 08:00 09/08/22 08:00 09/08/22 08:00 09/08/22 08:00 General: Alert, In no apparent distress, Oriented x3 HEENT: Atraumatic, Normocephalic, Other (dry, cracked lips. Dry mucous membranes. ) Neck: Supple, JVD not distended Respiratory: Diminished Cardiovascular: Regular rate/rhythm, Normal S1 S2 Gastrointestinal: Normal bowel sounds, Distended (mild distention), Tenderness (tenderness on palpation right hypochondriac/right lumbar region ) Musculoskeletal: No clubbing Integumentary: Diabetic ulcer (Left Heel, dressing saturated with serosanguineous fluid) Neurological: Normal speech, Normal tone, Normal affect Urinary: Bhardwaj catheter (light yellow urine with sediment noted) Laboratory Data (last 24 hrs) 09/07/22 19:31: Magnesium 1.5 L 09/07/22 19:31: PT 14.6 H, INR 1.33, APTT 32.2 09/07/22 19:31: Sodium 134 L, Potassium 4.1, BUN 28 H, Creatinine 2.20 H, Glucose 181 H, Total Bilirubin 0.4, AST 32, ALT 12 L, Alkaline Phosphatase 266 H 09/07/22 19:31: WBC 27.00 H, Hgb 10.7 L, Hct 33.8 L, Plt Count 681 H Imagings Data: - XR Chest 09/07: "No acute intrathoracic process suspected." - CT Head 09/07: "No acute intracranial abnormality" Conclusions/Impression: Problem List Severe Sepsis Diabetes Mellitus Chronic left heel diabetic ulcer Depression GERD Hx Bladder Cancer Recurrent UTI Hypertension Anemia WISAM Severe PCM Severe Sepsis Urinary Tract Infection Chronic Left Heel Diabetic Ulcer - Urinalysis 09/07: extremely turbid, LE 500, RBC >50, WBC >50, Many WBC clumps, Bacteria 20-50, protein 1+ - Urine culture 09/07: Pending - Blood cultures 09/07: Pending - Patient has been seeing podiatry/wound care as outpatient, most recently on 09/05. - Patient reports recent visit to urologist within the past week without any significant findings at that time. - Recently hospitalized for fungal UTI in July 2022 at [facility], treated with Fluconazole x 14 days. - Currently on Cefepime and Doxycycline (09/08-) - CT abdomen pelvis 09/07: Pending Leukocytosis (WBC 34.6) 24 hour Tmax 100 F Recommendations - Continue current antibiotics for now. - Will follow up with blood and urine culture reports and adjust antibiotics as appropriate. - Follow up with abdomen/pelvis CT results. - Continue to monitor WBC and fever trends - Pressure offloading measures -Strict blood glucose control Case discussed with Domingo Herron
[2022-09-08] MEDS ORDERED: NA CHLORIDE 0.9% 100 ML ONE (10:31)
[2022-09-08] MEDS: DOXYCYCLINE 100 MG in NA CHLORIDE 0.9% 100 ML IVPB SCH ×2 (10:32→21:22)
[2022-09-08] MEDS ORDERED: DOXYCYCLINE HYCLATE 100MG INJ ONE (10:35)
[2022-09-08] MEDS: CEFEPIME 2 GM in NA CHLORIDE 0.9% 100 ML IV SCH ×2 (12:28→22:13)
--- NOTE | 2022-09-08 13:19 | EKG ---
Test Date: 2022-09-07 Test Time: 19:30:30 Claim Service Representative: FERNANDO MEASUREMENT RESULTS: Intervals: Rate: 118 MT: QRSD: 94 QT: 422 QTc: 591 Keymar: P: MT: QRS: 40 T: 34 INTERPRETIVE STATEMENTS: Sinus tachycardia Voltage criteria for left ventricular hypertrophy Inferior infarct, age undetermined T wave abnormality, consider lateral ischemia Prolonged QT Abnormal ECG Compared to ECG 10/15/2015 21:22:42 Left ventricular hypertrophy now present Prolonged QT interval now present Ventricular premature complex(es) no longer present Myocardial infarct finding still present T-wave abnormality still present Possible ischemia still present Electronically Signed On 09-08-22 13:18:56 CDT by Jim Roche
--- NOTE | 2022-09-08 14:57 | RAD REPORT ---
EXAM DESCRIPTION: CT Abdomen and Pelvis Without Intravenous Contrast CLINICAL HISTORY: The patient is 67 years old and is Male; kidney failure TECHNIQUE: Axial computed tomography images of the abdomen and pelvis without intravenous contrast. Sagittal and coronal reformatted images were created and reviewed. This CT exam was performed usi ng one or more of the following dose reduction techniques: automated exposure control, adjustment o f the mA and/or kV according to patient size, and/or use of iterative reconstruction technique. COMPARISON: No relevant prior studies available. FINDINGS: Lung bases: Dependent atelectasis in the lungs. ABDOMEN: Liver: Hepatomegaly with diffuse hepatic steatosis. Gallbladder and bile ducts: Gallbladder is surgically absent. No ductal dilation. Pancreas: Unremarkable. No ductal dilation. Spleen: Spleen is not seen. Adrenals: Unremarkable. No mass. Kidneys and ureters: Moderate right hydroureteronephrosis and perinephric/periureteral stranding. No obstructing stone identified. Mild left perinephric stranding. Stomach and bowel: Unremarkable. No obstruction. No mucosal thickening. PELVIS: Appendix: No findings to suggest acute appendicitis. Bladder: Diffuse bladder wall thickening. The Bhardwaj catheter in place. Reproductive: Penile pump in place. ABDOMEN and PELVIS: Intraperitoneal space: Unremarkable. No free air. No significant fluid collection. Bones/joints: Disc space narrowing with degenerative endplate changes in the spine. No acute fracture. No dislocation. Soft tissues: Unremarkable. Vasculature: Scattered atherosclerotic vascular calcifications. No abdominal aortic aneurysm. Lymph nodes: Prominent left inguinal lymph node. IMPRESSION: 1. Moderate right hydroureteronephrosis and perinephric/periureteral stranding. No obs tructing stone identified. Correlate with any concern for recent stone passage or infection. 2. Diffuse bladder wall thickening. Correlate with any concern for cystitis, chronic bladder outl et obstruction, or other infiltrative process. 3. Additional non-emergent findings as above. Electronically signed by: Jose Mesa MD 09/08/2022 12:04 AM CDT Due to temporary technical issues with the PACS/Fluency reporting system, reports are being signed by the in house radiologists without review as a courtesy to insure prompt reporting. The interpreting radiologist is fully responsible for the content of the report.
[2022-09-08] MEDS: TRAMADOL HCL 50 MG TAB PO PRN (15:44)
--- NOTE | 2022-09-08 18:58 | P.PN ---
Subjective Date of Service: 09/08/22 Chief Complaint: fever Patient denies any complaint today. He had low-grade fever yesterday, no fever today. Leukocytosis trended up from yesterday. Physical Examination - Vital Signs Temperature: 98.1 F Blood Pressure: 143/72 Pulse: 80 Respirations: 16 Pulse Ox (%): 95 - Studies Laboratory Data (last 24 hrs) 09/07/22 19:31: Magnesium 1.5 L 09/07/22 19:31: PT 14.6 H, INR 1.33, APTT 32.2 09/07/22 19:31: Sodium 134 L, Potassium 4.1, BUN 28 H, Creatinine 2.20 H, Glucose 181 H, Total Bilirubin 0.4, AST 32, ALT 12 L, Alkaline Phosphatase 266 H 09/07/22 19:31: WBC 27.00 H, Hgb 10.7 L, Hct 33.8 L, Plt Count 681 H Microbiology Data (last 24 hrs): 09/07/22 19:47 Wound - Left Heel Gram Stain - Final Assessment And Plan - Plan Physical Exam General: Alert, oriented x3, NAD. Neck: Supple, JVD not distended Respiratory: Clear to auscultation bilaterally, Normal air movement Cardiovascular: No edema, Normal pulses, Regular rate/rhythm, Other (Hypotensive on arrival to the emergency room) Gastrointestinal: Normal bowel sounds, Soft and benign Musculoskeletal: No clubbing, No swelling Integumentary: Bilateral lower extremity ankle wound Neurological: Normal speech, no focal motor deficit. Urogenital: Bhardwaj catheter Diagnosis Severe sepsis without shock Metabolic encephalopathy Acute cystitis Obstructive uropathy Right hydronephrosis/hydroureter Chronic left ankle wound Rnn-wxakodf-suguwwzhc diabetes mellitus Essential hypertension Hyperlipidemia GERD History of bladder cancer Assessment plan Severe sepsis without shock Acute cystitis Chronic left foot wound Continue aggressive antibiotic therapy Infectious disease consulted Continue IV fluid. Urology consulted to evaluate obstructive uropathy. Maintain Bhardwaj catheter Follow cultures. Monitor CBC to follow leukocytosis. Metabolic encephalopathy Secondary to sepsis CT head IMPRESSION: No acute intracranial abnormality. Clinically improved Obstructive uropathy/acute kidney/hyperkalemia IV hydrate Bhardwaj catheter is in place Urology consulted to evaluate. Trend BUN and creatinine Microcytic anemia Monitor CBC Chronic left ankle wound Local wound care Rkv-aiiwusc-cusuhrtbo diabetes mellitus Essential hypertension Hyperlipidemia GERD Continue home medications. Insulin sliding scale. Full code DVT prophylaxis heparin
--- NOTE | 2022-09-08 20:29 | P.CNS ---
Date of Consult: 09/08/22 Reason for Consult: hydronephrosis Requesting Physician: luis alberto harris Chief Complaint: fever History of Present Illness: 67-year-old gentleman with IDDM, depression, hyperlipidemia, and anemia presents with a 1 month history of urinary tract infection recurrence/persistence, 2 in the last month, in the setting of significant LUTS and large volume incomplete emptying. He was admitted to [facility] on 2 occasions for these infections, and was shown how to perform CIC, which he did on 1 or 2 occasions within the last 3 weeks. He was recently discharged 07/19/2022. He also claims to have been started on Flomax only about a week ago. He has significant LUTS that have been present for several months now as follows: Incomplete emptying 4 Frequency 0 Urgency 1 with urge incontinence that is occurred on 3 occasions at night Intermittency/weak stream 5 Straining 0 Nocturia 2 AUA symptom score 17/35 On this occasion, he presented confused to the emergency room because he had some right flank pain present for several days associated with nausea and confusion. He apparently lives alone but has family that checks on him regularly. He has chronic lower extremity foot wounds with home health care. He is a patient of Dr. Guilherme Karimi because of a history of urothelial carcinoma of the bladder diagnosed in 2011. He received some sort of adjuvant therapy, but he does not recall if it was chemotherapy or BCG. He denies any recurrence of his bladder cancer since that time. In the emergency department he developed fever and hypotension and thus was admitted via the emergency room with suspected septic shock. Central line was placed and IV fluids given along with antimicrobials. Urethral Bhardwaj catheter was placed in the emergency department, but the volume drained was not recorded. Past medical and surgical history: As above plus history of TCC in 2012, partial pancreatectomy and splenectomy No known drug allergies Never smoker Examination: Comfortable and well-appearing in no acute distress Alert and awake, oriented No dyspnea or sign of respiratory distress No cervical/supraclavicular adenopathy or thyromegaly Abdomen soft, nontender, nondistended, irregular in the left lower quadrant of uncertain significance Genitalia: Uncircumcised and phimotic with hypospadiac meatus. Urethral Bhardwaj catheter in place draining clear yellow urine. Penile prosthesis in place with balloon pump in the left hemiscrotum and mild tenderness to palpation in the left hemiscrotum. No erythema or crepitus of the scrotum noted. Resting in the hospital bed comfortably No lower extremity edema or Homans' sign appreciated 09/07/2022 WBC 27, H/H10.7/33.8, platelets 681, INR 1.33 Creatinine 1.92 with EGFR 37, alk phos elevated 268, UA micro 2+ leuk esterase, negative nitrites, > 50 WBCs and RBCs per hpf 09/07/22 CT Abdomen and Pelvis Without Intravenous Contrast FINDINGS: Lung bases: Dependent atelectasis in the lungs. ABDOMEN: Liver: Hepatomegaly with diffuse hepatic steatosis. Gallbladder and bile ducts: Gallbladder is surgically absent. No ductal dilation. Pancreas: Unremarkable. No ductal dilation. Spleen: Spleen is not seen. Adrenals: Unremarkable. No mass. Kidneys and ureters: Moderate right hydroureteronephrosis and perinephric/periureteral stranding. No obstructing stone identified. Mild left perinephric stranding. Stomach and bowel: Unremarkable. No obstruction. No mucosal thickening. PELVIS: Appendix: No findings to suggest acute appendicitis. Bladder: Diffuse bladder wall thickening. The Bhardwaj catheter in place. Reproductive: Penile pump in place. ABDOMEN and PELVIS: Intraperitoneal space: Unremarkable. No free air. No significant fluid collection. Bones/joints: Disc space narrowing with degenerative endplate changes in the spine. No acute fracture. No dislocation. Soft tissues: Unremarkable. Vasculature: Scattered atherosclerotic vascular calcifications. No abdominal aortic aneurysm. Lymph nodes: Prominent left inguinal lymph node. IMPRESSION: 1. Moderate right hydroureteronephrosis and perinephric/periureteral stranding. No obstructing stone identified. Correlate with any concern for recent stone passage or infection. Chest Single View - 09/07/2022 7:25 pm CLINICAL HISTORY: altered mental status Chest pain. COMPARISON: Chest Single View dated 02/20/2020; Chest Single View dated 10/15/2015 FINDINGS: Portable technique limits examination quality. The lungs are grossly clear. The heart is mildly enlarged in size. No displaced fractures.Sternotomy wires present. IMPRESSION: No acute intrathoracic process suspected. EKG INTERPRETIVE STATEMENTS: Sinus tachycardia Voltage criteria for left ventricular hypertrophy Inferior infarct, age undetermined T wave abnormality, consider lateral ischemia Prolonged QT Abnormal ECG Compared to ECG 10/15/2015 21:22:42 Left ventricular hypertrophy now present Prolonged QT interval now present Ventricular premature complex(es) no longer present Myocardial infarct finding still present T-wave abnormality still present Possible ischemia still present Assessment and recommendation: 67-year-old gentleman with IDDM, depression, hyperlipidemia, anemia, urothelial Ca of the bladder p resection and adjuvant tx in 2011 without recurrence seen cystoscopically with Dr. Guilherme Karimi within the last week, and 2 recent recurrent/persistent urinary tract infections requiring hospital admission at [facility] with moderate to severe LUTS potentially due to BPH with moderate volume incomplete emptying, performing highly intermittent CIC, recently started on Flomax, now admitted with complicated UTI in the setting of likely chronic urinary retention causing right hydroureteronephrosis with bilateral, right greater than left, perinephric stranding consistent with obstructive pyelonephritic septic shock with signs of cardiac decompensation/CHF, improving, but with elevated alkaline phosphatase of uncertain etiology. -CT imaging reviewed in detail in addition to the reports documented above and labs -Continue urethral Bhardwaj catheter decompression of his bladder, which will likely also allow for decompression of his right renal unit, since hydronephrosis extends down the ureter to the level of the bladder without obstructing calculus or lesion noted. -Aggressive antimicrobial therapy and supportive care as necessary -If failure to improve significantly after 48 to 72 hours of decompression with Bhardwaj catheter, repeat renal ultrasound versus anatomic imaging to assess for persistence of hydronephrosis, which may merit either right ureteral stent placement or percutaneous nephrostomy tube, depending on the severity of his sepsis and if shock indeed present. -PSA and POLY, prostate cancer screening, on follow-up given elevated alkaline phosphatase, and consideration for bone scan Allergies No Known Allergies Allergy (Verified 11/05/13 13:00) - Past Medical/Surgical History Diabetic: Yes -: Hyperlipidemia -: IDDM II -: Anemia -: History of urinary tract infection -: Bladder cancer -: Insulin-dependent diabetes mellitus this -: Depression -: GERD -: Charcot's joint of left foot -: Right ankle triple arthrodesis (11/29/2017) -: Left tibiotalis arthrodesis (04/13/2022) -: Partial resection of pancreas -: Splenectomy - Social History Alcohol use: No CD- Drugs: No Caffeine use: No Place of Residence: Home Physical Examination Temp Pulse Resp BP Pulse Ox 98.1 F 80 16 143/72 H 95 09/08/22 19:06 09/08/22 19:06 09/08/22 19:06 09/08/22 19:06 09/08/22 19:06 Laboratory Data (last 24 hrs) 09/07/22 19:31: Magnesium 1.5 L 09/07/22 19:31: WBC 27.00 H, Hgb 10.7 L, Hct 33.8 L, Plt Count 681 H - Problems (1) Complicated UTI (urinary tract infection) Current Visit: Yes Status: Acute (2) Septic shock Current Visit: Yes Status: Acute (3) BPH loc w urin obs/LUTS Current Visit: Yes Status: Acute (4) Incomplete emptying of bladder Current Visit: Yes Status: Acute (5) Hydronephrosis, right Current Visit: Yes Status: Acute (6) Hydroureter, right Current Visit: Yes Status: Acute (7) Elevated alkaline phosphatase level Current Visit: Yes Status: Acute (8) CHF (congestive heart failure) Current Visit: Yes Status: Acute (9) Urothelial carcinoma of bladder Current Visit: Yes Status: Chronic Conclusions/Impression: see HPI Critical Care: No Time Spent Managing Pts care (In Minutes): 75
[2022-09-08] MEDS ORDERED: CEFEPIME 1 GM in NA CHLORIDE 0.9% 100 ML IV SCH (21:00)
[2022-09-08] MEDS: METOPROLOL TARTRATE 5 MG/5 ML INJ IV PRN (23:09)
--- NOTE | 2022-09-09 01:03 | CON ---
Date of Consultation: 09/08/2022 Reason For Consultation: Elevated BNP. History Of Present Illness: This is a 67-year-old with history diabetes, dyslipidemia, recurrent UTI s, anemia, a very poor historian, was brought in for fever and found to have urinary tract infection. On routine labs, NT-proBNP was elevated, hence I was consulted. There is no obvious shortness of b reath or edema or heart failure symptoms. Past Medical History: As outlined above in the HPI. Medications: Refer to reconciliation sheet for the list. Allergies: NO KNOWN DRUG ALLERGIES. Family History: No premature coronary artery disease or cancer. Social History: Does not smoke or drink. Does not use any drugs. Review of Systems: All systems reviewed and they were negative except as mentioned in the HPI. Physical Examination: Vital Signs: Reviewed. Head and Neck: Pupils are equal, reactive to light. No JVD. No cervical myopathy. Neck: Supple. Thyroid is not enlarged. Lungs: Clear to auscultation bilaterally. No rhonchi, rales, or crackles. No accessory muscle use. Heart: Regular. No extra sounds. Abdomen: Soft, nontender. Bowel sounds positive. No organomegaly. No masses or hernia. No rigidi ty or rebound. Extremities: No clubbing, cyanosis. Intact pulses. Skin: No rash. Neurologic: With confusion. No focal deficits appreciated. Investigations: BUN 24, creatinine 1.9, NT-proBNP is 3725. Hemoglobin is 10.7. Assessment And Recommendation: Elevated NT-proBNP. This is definitely indicating chronic congestive heart failure. Unknown ejection fraction, but at the current time, the patient is not fluid overloa ded. Recommend to obtain an echo to further evaluate the cardiac status and plan accordingly. Thank you for this consult. /BETO Voice ID: [id number] Report ID: [id number]
[2022-09-09] MEDS: HEPARIN 5000 UNIT/ML 1 ML VIAL SQ SCH ×3 (03:10→16:44)
[2022-09-09] MEDS: NA CHLORIDE 0.9% 1,000 ML IV SCH ×2 (04:05→10:09)
[2022-09-09] MEDS: INSULIN -REGULAR HUMAN 50 UNIT/0.5 ML ML SQ SCH ×4 (05:38→16:44)
[2022-09-09 07:15] LABS: AST/SGOT 19 U/L (15-37); Albumin 1.8 g/dL (3.4-5.0); Alkaline Phosphatase 228 U/L (45-117); BUN Blood Urea Nitrogen 22 mg/dL (7-18); Bicarbonate 25 mEq/L (21-32); Bilirubin Total 0.3 mg/dL (0.2-1.0); Glomerular Filtration Rate 46 ml/min (=/>90); Glucose Level 218 mg/dL (74-106); Magnesium 1.6 mg/dL (1.6-2.4); Potassium 4.1 mEq/L (3.5-5.1); Protein, Total 8.6 g/dL (6.4-8.2); Sodium Level 134 mEq/L (136-145)
[2022-09-09 07:16] LABS: ALT/SGPT < 10 U/L (16-61)
[2022-09-09] MEDS: DOXYCYCLINE 100 MG in NA CHLORIDE 0.9% 100 ML IVPB SCH ×2 (09:00→20:25)
[2022-09-09 09:28] LABS: Absolute Lymphocytes (CBC) 2.5 K/uL (0.7-4.9); Hematocrit 31.6 % (39.6-49.0); Lymphocytes % 11.1 % (15.3-44.8); MCV 84.8 fL (80-100); RBC Red Blood Cell Count 3.73 M/uL (4.33-5.43)
--- NOTE | 2022-09-09 09:45 | P.PN ---
Date of Service: 09/09/22 Chief Complaint: fever, altered mental status Subjective: Improving. Denies any new or worsening complaints. No acute events reported overnight. Physical Examination Temp Pulse Resp BP Pulse Ox 98 F 92 H 18 150/67 H 95 09/09/22 04:00 09/09/22 04:00 09/09/22 04:00 09/09/22 04:00 09/09/22 04:00 General: Alert, In no apparent distress, Oriented x3 HEENT: Atraumatic, Normocephalic. Dry, cracked lips. Dry mucous membranes. Neck: Supple, JVD not distended Respiratory: Diminished Cardiovascular: Regular rate/rhythm, Normal S1 S2 Gastrointestinal: Normal bowel sounds. Musculoskeletal: No clubbing Integumentary: Diabetic ulcer left heel Neurological: Normal speech, Normal tone, Normal affect Urinary: Bhardwaj catheter Studies Laboratory Data - Reviewed Microbiology Data - Reviewed Imagings Data: - XR Chest 09/07: "No acute intrathoracic process suspected." - CT Head 09/07: "No acute intracranial abnormality" - CT Abdomen Pelvis 09/08: "IMPRESSION: 1. Moderate right hydroureteronephrosis and perinephric/periureteral stranding. No obstructing stone identified. Correlate with any concern for recent stone passage or infection. 2. Diffuse bladder wall thickening. Correlate with any concern for cystitis, chronic bladder outlet obstruction, or other infiltrative process. 3. Additional non- emergent findings as above." Medications List - Reviewed Assessment and Plan Problem List Severe Sepsis Diabetes Mellitus Chronic left heel diabetic ulcer Depression GERD Hx Bladder Cancer Recurrent UTI Hypertension Anemia WISAM Severe PCM Severe Sepsis Urinary Tract Infection Right Hydroureteronephrosis secondary to Urinary Retention - Recently hospitalized for fungal UTI in July 2022 at [facility], treated with Fluconazole x 14 days. - Patient reports recent visit to urologist within the past week without any significant findings at that time. - Blood cultures 09/07: No growth to date - CT Abdomen Pelvis 09/08: Moderate right hydroureteronephrosis and perinephric/periureteral stranding. No obstructing stone identified. Diffuse bladder wall thickening. - Urine culture 09/07: 4+ Gram negative rods ; colony count >100,000 CFU/mL - Urology following - Currently on Cefepime and Doxycycline (09/08-) Chronic Left Heel Diabetic Ulcer - Patient has been seeing podiatry/wound care as outpatient, most recently on 09/05. - Left heel wound culture 09/07: 4+ coagulase positive staph Leukocytosis improving (WBC 34.6 -> 22.6). Afebrile. Recommendations - Continue current antibiotics for now. Follow up with final urine and wound culture reports. - Continue to monitor WBC and fever trends - Pressure offloading measures. Continue wound care to right heel. - Strict blood glucose control Case discussed with Domingo Herron
[2022-09-09] MEDS ORDERED: NA CHLORIDE 0.9% 100 ML ONE (10:11)
[2022-09-09] MEDS ORDERED: DOXYCYCLINE HYCLATE 100MG INJ ONE (10:12)
[2022-09-09] MEDS: CEFEPIME 2 GM in NA CHLORIDE 0.9% 100 ML IV SCH ×2 (11:30→20:43)
[2022-09-09] MEDS: TRAMADOL HCL 50 MG TAB PO PRN ×2 (13:58→20:42)
--- NOTE | 2022-09-09 14:21 | ECHO ---
HEIGHT: 6 ft 4 in WEIGHT: 220 lb 0 oz DATE OF STUDY: 09/09/[address]: Yanira Glasgow 2-DIMENSIONAL: YES M.MODE: YES DOPPLER: YES COLOR FLOW: YES TDS: NO PORTABLE: YES DEFINITY: NO BUBBLE STUDY: NO DIAGNOSIS: ELEVATED BNP, CARDIOMEGALY CARDIAC HISTORY: CATHERIZATION:YES SURGERY: YES PROSTHETIC VALVE: NO PACEMAKER: NO MEASUREMENTS (cm) DIASTOLIC (NORMALS) SYSTOLIC (NORMALS) IVSd 1.1 (0.6-1.2) LA Diam 3.8 (1.9-4.0) LVEF 56% LVIDd 4.5 (3.5-5.7) LVIDs 3.2 (2.0-3.5) %FS 29% LVPWd 1.0 (0.6-1.2) Ao Diam 3.0 (2.0-3.7) 2 DIMENSIONAL ASSESSMENT: RIGHT ATRIUM: NORMAL LEFT ATRIUM: NORMAL RIGHT VENTRICLE: NORMAL LEFT VENTRICLE: NORMAL TRICUSPID VALVE: MILD TR MITRAL VALVE: MILD MR PULMONIC VALVE: NORMAL AORTIC VALVE: NORMAL PERICARDIAL EFFUSION: NONE AORTIC ROOT: NORMAL LEFT VENTRICULAR WALL MOTION: NORMAL DOPPLER/COLOR FLOW: MILD TRICUSPID AND MITRAL REGURGITATION. COMMENTS: 1. NORMAL LEFT VENTRICULAR EJECTION FRACTION 55-60%. 2. NORMAL WALL MOTION. 3. MILD TRICUSPID REGURGITATION. 4. MILD MITRAL REGURGITATION. TECHNOLOGIST: Diane DUONG
--- NOTE | 2022-09-09 17:35 | PN ---
Date of Progress Note: 09/09/2022 Subjective: Seen by bedside. No new complaints. Review of Systems: No chest pain, shortness of breath, orthopnea, or lower extremity edema. All other systems reviewed are negative. Physical Examination: Vital Signs: Reviewed. Head and Neck: Pupils are equal, reactive to light. Intact eye movements. No JVD. No cervical lym phadenopathy. Neck is supple. Thyroid is not enlarged. Lungs: Clear to auscultation bilaterally. No rhonchi, wheezing, or crackles. No accessory muscle u se heart is irregular. No extra sounds. Abdomen: Soft, nontender. Bowel sounds positive. No organomegaly. No masses or hernia. No rigidi ty or rebound. Extremities: No edema, clubbing, cyanosis. Intact pulses. Skin: No rash. Neurologic: Alert, awake, oriented x3. No focal deficits appreciated. Investigations: Labs reviewed. Assessment And Recommendation: Elevated NT-proBNP on echo and ejection fraction is normal. Plan: R ecommend to restrict the salt from his diet and blood pressure control. Cardiology will sign off on the case. SR/MODL Voice ID: [id number] Report ID: [id number]
[2022-09-09] MEDS ORDERED: NA CHLORIDE 0.9% 1,000 ML IV SCH (17:41)
--- NOTE | 2022-09-09 17:47 | P.PN ---
(S) Pt reports improvement in lower back pain, malaise, no current nausea, no bladder spasms (O) Vitals reviewed in the EMR General: In no apparent distress, Oriented x3, Cooperative HEENT: Atraumatic Neck: Supple Respiratory: Clear to auscultation bilaterally Cardiovascular: Mild Lt LE edema, Regular rate/rhythm Gastrointestinal: Soft and benign, Non-distended, elena presenet Musculoskeletal: No clubbing, No contractures Integumentary: Xerosis, left foot diabetic ulcer not examined Neurological: Normal speech, awake, alert Laboratory Data (last 24 hrs) Reviewed in the EMR Imagings Data: EXAM DESCRIPTION: RAD - Chest Single View - 09/07/2022 9:15 pm CLINICAL HISTORY: Right IJ CVL placement Chest pain. COMPARISON: Chest Single View dated 09/07/2022; Chest Single View dated 02/20/2020; Chest Single View dated 10/15/2015 FINDINGS: Portable technique limits examination quality. The lungs are grossly clear. The heart is enlarged. Sternotomy wires.Right-sided venous catheter has tip in the SVC. No pneumothorax seen. IMPRESSION: No postprocedure pneumothorax EXAM DESCRIPTION: CT - Head Brain Wo Cont - 09/07/2022 9:41 pm CLINICAL HISTORY: MENTAL STATUS CHANGE Headache, drowsiness COMPARISON: Head Brain Wo Cont dated 10/15/2015 TECHNIQUE: All CT scans are performed using dose optimization technique as appropriate and may include automated exposure control or mA/KV adjustment according to patient size. FINDINGS: No intracranial hemorrhage, hydrocephalus or extra-axial fluid collection.No areas of brain edema or evidence of midline shift. The paranasal sinuses and mastoids are clear. The calvarium is intact. IMPRESSION: No acute intracranial abnormality. EXAM DESCRIPTION: RAD - Chest Single View - 09/07/2022 7:25 pm CLINICAL HISTORY: altered mental status Chest pain. COMPARISON: Chest Single View dated 02/20/2020; Chest Single View dated 10/15/2015 FINDINGS: Portable technique limits examination quality. The lungs are grossly clear. The heart is mildly enlarged in size. No displaced fractures.Sternotomy wires present. IMPRESSION: No acute intrathoracic process suspected. EXAM DESCRIPTION: CT Abdomen and Pelvis Without Intravenous Contrast CLINICAL HISTORY: The patient is 67 years old and is Male; kidney failure TECHNIQUE: Axial computed tomography images of the abdomen and pelvis without intravenous contrast. Sagittal and coronal reformatted images were created and reviewed. This CT exam was performed using one or more of the following dose reduction techniques: automated exposure control, adjustment of the mA and/or kV according to patient size, and/or use of iterative reconstruction technique. COMPARISON: No relevant prior studies available. FINDINGS: Lung bases: Dependent atelectasis in the lungs. ABDOMEN: Liver: Hepatomegaly with diffuse hepatic steatosis. Gallbladder and bile ducts: Gallbladder is surgically absent. No ductal dilation. Pancreas: Unremarkable. No ductal dilation. Spleen: Spleen is not seen. Adrenals: Unremarkable. No mass. Kidneys and ureters: Moderate right hydroureteronephrosis and perinephri c/periureteral stranding. No obstructing stone identified. Mild left perinephric stranding. Stomach and bowel: Unremarkable. No obstruction. No mucosal thickening. PELVIS: Appendix: No findings to suggest acute appendicitis. Bladder: Diffuse bladder wall thickening. The Elena catheter in place. Reproductive: Penile pump in place. ABDOMEN and PELVIS: Intraperitoneal space: Unremarkable. No free air. No significant fluid collection. Bones/joints: Disc space narrowing with degenerative endplate changes in the spine. No acute fracture. No dislocation. Soft tissues: Unremarkable. Vasculature: Scattered atherosclerotic vascular calcifications. No abdominal aortic aneurysm. Lymph nodes: Prominent left inguinal lymph node. IMPRESSION: 1. Moderate right hydroureteronephrosis and perinephric/periureteral stranding. No obstructing stone identified. Correlate with any concern for recent stone passage or infection. 2. Diffuse bladder wall thickening. Correlate with any concern for cystitis, chronic bladder outlet obstruction, or other infiltrative process. 3. Additional non-emergent findings as above. Conclusions/Impression: Stage II WISAM in the setting of complicated UTI, pre-renal state, hypotension, Rt sided hydro -Cr level is downward trending nicely, cont IVF for another 12-24 but will lower rate. Hypotension, resolved. Underlying HTN -Cont to trend Rt sided hydro unspecified. Bladder outlet obstruction. Complicated UTI, GNR bacteriuria -Urology reccs noted, clinically improving but sig leukocytosis still present, trend. Cont IV Abx, f/u final cultures and sensitivities. Maintain elena, repeat renal imaging as OP if not repeated during hospitalization Anil Ghosh MD, ESTELLA
--- NOTE | 2022-09-09 18:50 | P.PN ---
Subjective Date of Service: 09/09/22 Chief Complaint: fever Patient denies any new complaint. No fever over the past 24 hours. Leukocytosis trended down significantly from yesterday. Physical Examination - Vital Signs Temperature: 98.2 F Blood Pressure: 173/83 Pulse: 88 Respirations: 18 Pulse Ox (%): 96 - Studies Microbiology Data (last 24 hrs): 09/07/22 19:47 Wound - Left Heel Gram Stain - Final Assessment And Plan - Plan Physical Exam General: Alert, oriented x3, NAD. Neck: Supple, JVD not distended Respiratory: Clear to auscultation bilaterally, Normal air movement Cardiovascular: No edema, Normal pulses, Regular rate/rhythm, Other (Hypotensive on arrival to the emergency room) Gastrointestinal: Normal bowel sounds, Soft and benign Musculoskeletal: No clubbing, No swelling Integumentary: Bilateral lower extremity ankle wound Neurological: Normal speech, no focal motor deficit. Urogenital: Bhardwaj catheter Diagnosis Severe sepsis without shock Metabolic encephalopathy Acute cystitis Obstructive uropathy Right hydronephrosis/hydroureter Chronic left ankle wound [id number] diabetes mellitus Essential hypertension Hyperlipidemia GERD History of bladder cancer Assessment plan Severe sepsis without shock Acute cystitis/acute pyelonephritis. Chronic left foot wound Continue aggressive antibiotic therapy. Patient is clinically responding to antibiotics. Urine culture is growing gram-negative rods Infectious disease input appreciate Continue IV fluid. Urology Dr. Ingram input appreciated. Reevaluate hydronephrosis in 72 hours. Maintain Bhardwaj catheter Monitor CBC to follow leukocytosis. Metabolic encephalopathy Secondary to sepsis. AMS resolved Obstructive uropathy/acute kidney/hyperkalemia IV hydrate Bhardwaj catheter is in place Urology input appreciated. Hyperkalemia resolved. Serum creatinine is improving. Continue to monitor renal function. Anemia: Stable Monitor CBC Chronic left ankle wound Local wound care [id number] diabetes mellitus Essential hypertension Hyperlipidemia GERD Continue home medications. Insulin sliding scale. Full code DVT prophylaxis heparin
[2022-09-09] MEDS ORDERED: HYDRALAZINE HCL 20 MG/ML VIAL IV PRN (18:51)
[2022-09-10] MEDS: HEPARIN 5000 UNIT/ML 1 ML VIAL SQ SCH ×3 (02:53→16:14)
[2022-09-10] MEDS: INSULIN -REGULAR HUMAN 50 UNIT/0.5 ML ML SQ SCH ×4 (06:00→17:20)
[2022-09-10 06:25] LABS: Absolute Lymphocytes (CBC) 2.7 K/uL (0.7-4.9); Hematocrit 30.3 % (39.6-49.0); Lymphocytes % 17.3 % (15.3-44.8); MCV 83.6 fL (80-100); MPV 8.9 fL (7.6-11.3); RBC Red Blood Cell Count 3.62 M/uL (4.33-5.43)
[2022-09-10 06:46] LABS: AST/SGOT 12 U/L (15-37); Albumin 1.8 g/dL (3.4-5.0); Alkaline Phosphatase 205 U/L (45-117); BUN Blood Urea Nitrogen 16 mg/dL (7-18); Bicarbonate 26 mEq/L (21-32); Bilirubin Total 0.4 mg/dL (0.2-1.0); Glomerular Filtration Rate 62 ml/min (=/>90); Glucose Level 184 mg/dL (74-106); Magnesium 1.4 mg/dL (1.6-2.4); Potassium 3.5 mEq/L (3.5-5.1); Protein, Total 8.7 g/dL (6.4-8.2); Sodium Level 135 mEq/L (136-145)
[2022-09-10 06:47] LABS: ALT/SGPT < 10 U/L (16-61)
[2022-09-10] MEDS ORDERED: Magnesium Sulfate 2gm IVPB 2 G/50 ML BAG IV ONE (09:00)
[2022-09-10] MEDS: CEFEPIME 2 GM in NA CHLORIDE 0.9% 100 ML IV SCH ×2 (09:10→21:25)
[2022-09-10] MEDS: DOXYCYCLINE 100 MG in NA CHLORIDE 0.9% 100 ML IVPB SCH (09:12)
[2022-09-10] MEDS ORDERED: DOXYCYCLINE HYCLATE 100MG INJ ONE (09:15)
--- NOTE | 2022-09-10 12:24 | PN ---
Subjective: The patient is seen in [facility]. The pat bienvenido is on the fourth floor. He is alert, awake, and comfortable, able to answer questions. Denies any headache, nausea, vomiting. States he is feeling overall okay. He is concerned about his blood pressure, which also I note has been going up and has trended up to about 160-170 systolic. Last blo od pressure was about 179/91. Objective: Vital Signs: Pulse is about 80 and regular, respirations around 12 and comfortable. Lungs: Clear anteriorly. Abdomen: Soft. Extremities: Reveal edema. The patient does have edema bilaterally. Medications: Reviewed. The patient is on antibiotics, has had cefepime. He has also had doxycyclin e. He is getting tramadol p.r.n. for pain. He is on Zofran. He is on metoprolol. He is on hydrala zine and metoprolol p.r.n. There are no scheduled blood pressure medications listed over here maranda toure. The patient's blood pressure had been okay, but recently since yesterday or so has been started going up. Laboratory Data: Reviewed. WBC count has improved significantly from 34,000 on to 22,000 on and today it is down to 15.9. Hemoglobin has been stable at about 9.9, hematocrit is 30.3, platel et count at 555. Chemistries reviewed. Sodium 135, relatively stable from compared to yesterday; po tassium 3.5; chloride 103; bicarb is 26; BUN is 16; creatinine is 1.27, significantly improved compar ed to yesterday when the BUN and creatinine were 22 and 1.63; glucose is 184; albumin is at 1.8. Assessment And Plan: The patient with acute kidney injury, urinary tract infection, complicated. e patient being followed by Urology on antibiotics, seems to be overall improving clinically. Blood pressure seems to be on the high side. Plan: Appreciate Urology input. Antibiotics ongoing. The patient clinically seems to be improved a t this point. We will go ahead and judiciously start him on blood pressure medication with amlodipin e. Since his infection is ongoing still though improving, but blood pressures are high, we will go a head and put him on a very low dose of amlodipine, but give it twice a day with holding parameters, s o it is not given when the blood pressure is greater than systolic 130. Discussed with Marcela, the patient's nurse as well. We will place the order. MESHA Voice ID: [id number] Report ID: [id number]
--- NOTE | 2022-09-10 15:05 | P.PN ---
Subjective Date of Service: 09/10/22 Chief Complaint: fever Patient denies any new complaint. No fever. Leukocytosis continue to trend down. Patient wishes to go home as soon as possible. Physical Examination - Vital Signs Temperature: 98.1 F Blood Pressure: 179/91 Pulse: 81 Respirations: 12 Pulse Ox (%): 96 - Studies Microbiology Data (last 24 hrs): 09/07/22 19:47 Wound - Left Heel Gram Stain - Final 09/07/22 19:47 Wound - Left Heel Culture & Sensitivity - Final Staph Aureus 09/07/22 19:10 Clean Catch Urine Delmita Count - Final >100,000 CFU/ML. 09/07/22 19:10 Clean Catch Urine - Final Escherichia Coli Assessment And Plan - Plan Physical Exam General: Alert, oriented x3, NAD. Neck: Supple, JVD not distended Respiratory: Clear to auscultation bilaterally, Normal air movement Cardiovascular: No edema, Normal pulses, Regular rate/rhythm, Other (Hypotensive on arrival to the emergency room) Gastrointestinal: Normal bowel sounds, Soft and benign Musculoskeletal: No clubbing, No swelling Integumentary: left ankle wound dressed. Neurological: Normal speech, no focal motor deficit. Urogenital: Bhardwaj catheter Diagnosis Severe sepsis without shock Metabolic encephalopathy Acute cystitis Obstructive uropathy Right hydronephrosis/hydroureter Chronic left ankle wound Wix-ajbqutb-cthjskyce diabetes mellitus Essential hypertension Hyperlipidemia GERD History of bladder cancer Assessment plan Severe sepsis without shock Acute cystitis/acute pyelonephritis. Chronic left foot wound Patient is clinically responding to antibiotics. Urine culture grew pansensitive E. coli. Wound culture: MSSA. Infectious disease is following. Antibiotics scaled down to IV cefepime. Add oral doxycycline. Continue IV fluid. Urology Dr. Ingram is following Reevaluate hydronephrosis in 72 hours. Maintain Bhardwaj catheter Monitor CBC to follow leukocytosis. Metabolic encephalopathy Secondary to sepsis. AMS resolved Obstructive uropathy/acute kidney/hyperkalemia IV hydrate Bhardwaj catheter is in place Urology input appreciated. Hyperkalemia resolved. WISAM resolved. Continue to monitor renal function. Anemia: Stable Monitor CBC Chronic left ankle wound Local wound care Oral doxycycline Njo-mdmlpfj-ezewoncle diabetes mellitus Essential hypertension Hyperlipidemia GERD Continue home medications. Insulin sliding scale. Full code DVT prophylaxis heparin
[2022-09-10] MEDS ORDERED: SILVER SULFADIAZINE 1% 50 GM TOP SCH (16:00)
[2022-09-10] MEDS: COLLAGENASE 30 GM OINTMENT TOP SCH (16:10)
[2022-09-10] MEDS ORDERED: GLUCAGON 1 MG/VIAL IM PRN (17:57)
[2022-09-10] MEDS ORDERED: D50W 25 GM/50 ML SYRINGE IV PRN (17:57)
[2022-09-10] MEDS: URSODIOL PO SCH (21:00)
[2022-09-10] MEDS ORDERED: INSULIN -REGULAR HUMAN 50 UNIT/0.5 ML ML SQ SCH (21:00)
[2022-09-10] MEDS ORDERED: NA CHLORIDE 0.9% 100 ML ONE (21:16)
[2022-09-10] MEDS: AMLODIPINE 2.5 MG TAB PO SCH (21:26)
[2022-09-10] MEDS: TRAMADOL HCL 50 MG TAB PO PRN (21:27)
[2022-09-10] MEDS: DOXYCYCLINE 100 MG CAP PO SCH (21:27)
[2022-09-10] MEDS: ATORVASTATIN 40 MG TAB PO SCH (21:28)
[2022-09-10] MEDS: GABAPENTIN 300 MG CAP PO SCH (21:28)
[2022-09-10] MEDS: FERROUS SULFATE 325 MG TAB PO SCH (21:28)
[2022-09-10] MEDS: AMITRIPTYLINE 25 MG TAB PO SCH (21:28)
[2022-09-10] MEDS: METOPROLOL TARTRATE 5 MG/5 ML INJ IV PRN (21:29)
[2022-09-11] MEDS: HEPARIN 5000 UNIT/ML 1 ML VIAL SQ SCH ×3 (02:16→17:02)
[2022-09-11 03:23] LABS: Absolute Lymphocytes (CBC) 2.6 K/uL (0.7-4.9); Hematocrit 33.7 % (39.6-49.0); Lymphocytes % 15.5 % (15.3-44.8); MCV 84.4 fL (80-100); MPV 9.6 fL (7.6-11.3); RBC Red Blood Cell Count 3.99 M/uL (4.33-5.43)
[2022-09-11 03:29] LABS: Magnesium 1.8 mg/dL (1.6-2.4); Potassium 3.8 mEq/L (3.5-5.1)
[2022-09-11] MEDS: INSULIN -REGULAR HUMAN 50 UNIT/0.5 ML ML SQ SCH ×4 (06:00→17:13)
[2022-09-11] MEDS ORDERED: KCL 20 MEQ/100 mL IVPB 20 MEQ/100 ML BAG IV ONE (09:00)
[2022-09-11] MEDS ORDERED: MAGNESIUM SULFATE 1 gm IVPB 1 GM/100 ML BAG IV ONE (09:00)
[2022-09-11] MEDS: URSODIOL PO SCH (09:00)
[2022-09-11] MEDS: FERROUS SULFATE 325 MG TAB PO SCH ×2 (10:44→17:02)
[2022-09-11] MEDS: AMLODIPINE 2.5 MG TAB PO SCH ×2 (10:44→22:08)
[2022-09-11] MEDS: PANTOPRAZOLE 40MG TABLET PO SCH (10:44)
[2022-09-11] MEDS: GABAPENTIN 300 MG CAP PO SCH ×3 (10:44→22:08)
[2022-09-11] MEDS: CITALOPRAM 10 MG TABLET PO SCH (10:46)
[2022-09-11] MEDS: ASPIRIN 325 MG TAB PO SCH (10:46)
[2022-09-11] MEDS: COLLAGENASE 30 GM OINTMENT TOP SCH (10:47)
[2022-09-11] MEDS: CEFEPIME 2 GM in NA CHLORIDE 0.9% 100 ML IV SCH ×2 (10:47→22:09)
[2022-09-11] MEDS: DOXYCYCLINE 100 MG CAP PO SCH ×2 (10:48→22:06)
--- NOTE | 2022-09-11 12:36 | CON ---
Date of Consultation: 09/11/2022 Brief History Of Present Illness: The patient is a 67-year-old male with a past medical history of d iabetes, depression, anemia, hyperlipidemia, multiple urinary tract infections, urinary stent placed, who noted that the patient was recently discharged on July 19 with the urinary tract infection from [facility]. He reports that he has had chronic bilateral lower extremity foot wounds and [place] cot feet for multiple years. He recently had a surgery performed at [facility] on his left heel, which dave s not appear to be doing well with increased pain, swelling, tenderness, and additional enlargement o f the wound. He is admitted with multiple issues. He had a central line placed in the ER and was ad mitted with severe sepsis. He was started on antibiotics and I was requested to see the patient rega rding his foot wound on the left foot. Past Medical History: Hyperlipidemia, diabetes, anemia, chronic urinary tract infections, bladder ca ncer, depression, GERD, peripheral vascular disease, and multiple wounds of bilateral feet and [place] t foot bilaterally. Past Surgical History: Includes debridement of his left heel and foot, endovascular repair of an occ luded blood vessel on the left lower extremity. Social History: The patient denies smoking, alcohol, recreational drug use. Review of Systems: Ten-point review of systems other than HPI, denies. Physical Examination: Vital Signs: At the time of my examination; his blood pressure was 150/72, pulse 74, respiratory rat e 18, temperature 98.2. He is saturating 96% on room air. General: He is awake, alert, oriented. Psychiatric: He is appropriate, conversive. HEENT: He is normocephalic. His sclerae are anicteric. His mucous membranes are moist. His oropha rynx is clear. Neck: Supple without JVD. Chest: Expansion and excursion. Cardiovascular: Regular rate and rhythm. Pulmonary: Clear to auscultation bilaterally. Abdomen: Soft. Extremities: He has swelling and Charcot foot to bilateral lower extremities with multiple small pun ctate wounds on the right foot. On the left foot, he has a large approximately 6.5 x 7 cm heel wound with black eschar necrosis and gangrenous changes. He additionally has a lateral foot wound as well , which also has ischemic changes and diabetic foot wound appearance. He has bilateral diabetic foot wound as described. There was some cellulitis around the area. No obvious drainage at this time. He also has pressure affect on the heels bilaterally. Laboratory Data: Revealed a white blood cell count of 16.6, hemoglobin was 10.7, hematocrit 33.7, pl atelet count is 518. His neutrophils were 73%. His sodium 129, potassium 3.8, chloride 98, carbon d ioxide 25, BUN is 18, creatinine 1.35, glucose is 201, his calcium 9.2, magnesium 1.8. His ALT is le ss than 10. AST was 12. His alkaline phosphatase was 208. He had imaging performed, which included a CT of the abdomen and pelvis, which was officially read as moderate right hydronephrosis with miryam nephric and periureteral stranding. No obstructing stone identified. Diffuse bladder wall thickenin g correlate with any concern for cystitis, chronic bladder outlet obstruction, other infiltrative pro cess. He additionally had a head CT performed, which was officially read on 08/08 as no acute intrac ranial abnormality. Assessment And Plan: This is a 67-year-old man, who presents with signs and symptoms of worsening in fection/diabetic heel wound of the left foot and lateral aspect of the foot. 1.Continue medical management. 2.Antibiotic coverage. 3.Wound care with wraps, elevation with Vashe. 4.We will recommend surgical debridement of the heel on the left side as well as the lateral and oth er small punctate left foot wounds. Continue medical management and wound care for his right lower f oot wounds as well. 5.I have explained the risks, benefits, and alternatives of debridement of the left heel and left fo ot wounds including, but not limited to bleeding, infection, damage to surrounding tissues, need for further operation and procedures, blood clots, heart attack, stroke, and need for ongoing medical car e, perioperative complications related to anesthesia, and due to the perioperative surgical. The pat ient agrees to proceed as indicated. We will optimize medically as he has multiple medical issues oakley ch as hyponatremia and he would benefit from medical optimization prior to surgery. As such, we will book him for tomorrow. Thank you for this interesting consult. AURELIA/BETO Voice ID: [id number] Report ID: [id number]
--- NOTE | 2022-09-11 13:47 | P.PN ---
Subjective Date of Service: 09/11/22 Chief Complaint: fever Patient has no new complaint No fever. No significant change in leukocytosis from yesterday. Physical Examination - Vital Signs Temperature: 98.2 F Blood Pressure: 150/72 Pulse: 74 Respirations: 18 Pulse Ox (%): 96 Assessment And Plan - Plan Physical Exam General: Alert, oriented x3, NAD. Neck: Supple, JVD not distended Respiratory: Clear to auscultation bilaterally, Normal air movement Cardiovascular: No edema, Normal pulses, Regular rate/rhythm, Other (Hypotensive on arrival to the emergency room) Gastrointestinal: Normal bowel sounds, Soft and benign Musculoskeletal: No clubbing, No swelling Integumentary: left ankle wound dressed. Neurological: Normal speech, no focal motor deficit. Urogenital: Bhardwaj catheter Diagnosis Severe sepsis without shock Metabolic encephalopathy Acute cystitis Obstructive uropathy Right hydronephrosis/hydroureter Chronic left ankle wound Zzo-jmtacsn-jhwswsloy diabetes mellitus Essential hypertension Hyperlipidemia GERD History of bladder cancer Assessment plan Severe sepsis without shock Acute cystitis/acute pyelonephritis. Chronic left foot wound Urine culture grew pansensitive E. coli. Wound culture: MSSA. Infectious disease is following. Antibiotics scaled down to IV cefepime and oral doxycycline. Continue IV fluid. Urology Dr. Ingram is following Reevaluate hydronephrosis with CT abdomen tomorrow. Maintain Bhardwaj catheter Monitor CBC to follow leukocytosis. Metabolic encephalopathy Secondary to sepsis. AMS resolved Obstructive uropathy/acute kidney/hyperkalemia IV hydrate Bhardwaj catheter is in place Urology input appreciated. Hyperkalemia resolved. WISAM resolved. Continue to monitor renal function. Anemia: Stable Monitor CBC Chronic left ankle wound Noted left heel ulcer has necrotic base. General surgery consulted, patient seen by Dr. Lackey who is planning excisi onal debridement tomorrow. Continue antibiotics. Ont-bilorki-bqdolrgtc diabetes mellitus Essential hypertension Hyperlipidemia GERD Continue home medications. Insulin sliding scale. Full code DVT prophylaxis heparin
[2022-09-11] MEDS: AMITRIPTYLINE 25 MG TAB PO SCH (22:07)
[2022-09-11] MEDS: URSODIOL 300 MG PO SCH (22:07)
[2022-09-11] MEDS: ATORVASTATIN 40 MG TAB PO SCH (22:08)
[2022-09-12] MEDS: HEPARIN 5000 UNIT/ML 1 ML VIAL SQ SCH ×3 (00:33→18:11)
[2022-09-12 04:36] LABS: Lymphocytes % 28.5 % (15.3-44.8); MCV 83.2 fL (80-100); MPV 9.6 fL (7.6-11.3); RBC Red Blood Cell Count 3.84 M/uL (4.33-5.43)
[2022-09-12 04:46] LABS: Magnesium 1.9 mg/dL (1.6-2.4); Potassium 3.9 mEq/L (3.5-5.1)
[2022-09-12] MEDS: INSULIN -REGULAR HUMAN 50 UNIT/0.5 ML ML SQ SCH ×5 (06:00→22:23)
[2022-09-12] MEDS: PANTOPRAZOLE 40MG TABLET PO SCH (07:30)
[2022-09-12] MEDS: FERROUS SULFATE 325 MG TAB PO SCH ×2 (08:00→18:11)
--- NOTE | 2022-09-12 08:53 | RAD REPORT ---
EXAM DESCRIPTION: CT - Abdomen Pelvis Wo Contrast - 09/12/2022 8:41 am CLINICAL HISTORY: Abdominal pain /hydronephrosis COMPARISON: September 07, 2022 TECHNIQUE: Computed axial tomography of the abdomen and pelvis was obtained. IV and oral contrast we re not requested. All CT scans are performed using dose optimization technique as appropriate and may include automated exposure control or mA/KV adjustment according to patient size. FINDINGS: The evaluation of solid organs, vessels and bowel is limited secondary to the lack of con trast administration. The mild hepatomegaly. Cholecystectomy. The spleen is absent. Pancreas, adrenals and left kidney grossly normal. Mild to moderate right hydronephrosis minimally diminished in caliber. Stranding adjacent to the righ t renal pelvis and right ureter. A calculus is not seen. Bhardwaj catheter within the bladder. Large prasanna unt of air within the bladder lumen. Bladder wall thickening Penile pump in place. Normal appendix. No evidence of diverticulitis. Small umbilical hernia IMPRESSION: Mild to moderate right hydronephrosis minimally diminished in caliber. Stranding adjacent to the right renal pelvis and right ureter probably indicating infection. Air with in the bladder could simply be secondary to the Bhardwaj catheter in place. Infection can also have this appearance.
[2022-09-12] MEDS: CEFEPIME 2 GM in NA CHLORIDE 0.9% 100 ML IV SCH ×2 (08:55→20:31)
[2022-09-12] MEDS: DOXYCYCLINE 100 MG CAP PO SCH ×2 (09:00→20:31)
[2022-09-12] MEDS: COLLAGENASE 30 GM OINTMENT TOP SCH (09:00)
[2022-09-12] MEDS: URSODIOL 300 MG PO SCH ×2 (09:00→20:34)
[2022-09-12] MEDS: AMLODIPINE 2.5 MG TAB PO SCH ×2 (09:00→20:32)
[2022-09-12] MEDS ORDERED: KCL 20 MEQ/100 mL IVPB 20 MEQ/100 ML BAG IV SCH (09:00)
[2022-09-12] MEDS: GABAPENTIN 300 MG CAP PO SCH ×3 (09:00→20:31)
[2022-09-12] MEDS: ASPIRIN 325 MG TAB PO SCH (09:00)
[2022-09-12] MEDS: CITALOPRAM 10 MG TABLET PO SCH (09:00)
[2022-09-12] MEDS ORDERED: NA CHLORIDE 0.9% 250 ML ONE (09:04)
--- NOTE | 2022-09-12 09:58 | P.PN ---
Date of Service: 09/12/22 Chief Complaint: fever, altered mental status Subjective: Patient seen and examined at bedside. No acute events reported over the weekend. He reports feeling better overall. No new or worsening complaints. Scheduled for debridement of left heel ulcer today. Physical Examination Temp Pulse Resp BP Pulse Ox 98.9 F 85 16 134/67 93 09/12/22 04:00 09/12/22 04:00 09/12/22 04:00 09/12/22 04:00 09/12/22 04:00 General: Alert, In no apparent distress, Oriented x3 HEENT: Atraumatic, Normocephalic. Neck: Supple, JVD not distended Respiratory: clear to auscultation. breathing comfortably on room air. Cardiovascular: Regular rate/rhythm, Normal S1 S2 Gastrointestinal: Normal bowel sounds. Soft and benign. Musculoskeletal: No clubbing Integumentary: Diabetic ulcer of left heel. Dressing clean dry and intact. Neurological: Normal speech, Normal tone, Normal affect Urinary: Bhardwaj catheter Studies Laboratory Data - Reviewed Microbiology Data - Reviewed Imagings Data: - XR Chest 09/07: "No acute intrathoracic process suspected." - CT Head 09/07: "No acute intracranial abnormality" - CT Abdomen Pelvis 09/08: "IMPRESSION: 1. Moderate right hydroureteronephrosis and perinephric/periureteral stranding. No obstructing stone identified. Correlate with any concern for recent stone passage or infection. 2. Diffuse bladder wall thickening. Correlate with any concern for cystitis, chronic bladder outlet obstruction, or other infiltrative process. 3. Additional non- emergent findings as above." Medications List - Reviewed Assessment and Plan Problem List Severe Sepsis Diabetes Mellitus Chronic left heel diabetic ulcer Depression GERD Hx Bladder Cancer Recurrent UTI Hypertension Anemia WISAM Severe PCM Severe Sepsis Urinary Tract Infection Right Hydroureteronephrosis secondary to Urinary Retention - Recently hospitalized for fungal UTI in July 2022 at [facility], treated with Fluconazole x 14 days. - CT Abdomen Pelvis 09/08: Moderate right hydroureteronephrosis and per inephric/periureteral stranding. No obstructing stone identified. Diffuse bladder wall thickening. - Urine culture 09/07: Escherichia coli - Urology following - CT abdomen pelvis 09/12: "Mild to moderate right hydronephrosis minimally diminished in caliber. Stranding adjacent to the right renal pelvis and right ureter probably indicating infection. Air within the bladder could simply be secondary to the Bhardwaj catheter in place. Infection can also have this appearance" - Currently on Cefepime and Doxycycline (09/08-) Chronic Left Heel Diabetic Ulcer - Patient has been seeing podiatry/wound care as outpatient, most recently on 09/05. - Left heel wound culture 09/07: MSSA Blood cultures 09/07: No growth to date Leukocytosis improving (WBC downtrending, now 14.1). Afebrile. QTc >500 Recommendations - Complicated UTI: E.coli leroy-sensitive. Continue Cefepime while inpatient. Consider switch to Augmentin PO to complete 14 days antibiotic therapy (started 09/08). Follow up with urology as outpatient in 1-2 weeks. - Left heel ulcer infection: scheduled for debridement 09/12. Continue Doxycy lu for now. - Monitor WBC and fever trends - Pressure offloading measures. Continue wound care to right heel. - Strict blood glucose control Case discussed with Domingo Herron
--- NOTE | 2022-09-12 12:10 | P.PN ---
(S) Repeat CT findings noted and discussed with pt, renal function had improved further over the weekend but mildly higher on repeat labs this AM. IVF prev stopped, remains polyuric. WBC improving steadily. (O) Vitals reviewed in the EMR General: In no apparent distress, Oriented x3, Cooperative HEENT: Atraumatic Neck: Supple Respiratory: Clear to auscultation bilaterally Cardiovascular: Mild Lt LE edema, Regular rate/rhythm Gastrointestinal: Soft and benign, Non-distended, elena present Musculoskeletal: No clubbing, No contractures Integumentary: Xerosis, left foot diabetic ulcer not examined Neurological: Normal speech, awake, alert Laboratory Data (last 24 hrs) Reviewed in the EMR Imagings Data: Reviewed in the EMR Conclusions/Impression: Stage II WISAM in the setting of complicated UTI, pre-renal state, hypotension, Rt sided hydro -Cr level did downward trending nicely, but back up mildly this AM possibly in the setting of some neg I/O balance with post obstructive diuresis, will add NS IVF to replace half of UOP for 12-24h. Hypotension, resolved. Underlying HTN -Started on CCB therapy by Dr. Hilton over the weekeend, monitor. Rt sided hydro unspecified. Bladder outlet obstruction. Complicated UTI, GNR bacteriuria/leroy sensitive Ecoli -Leukocytosis resolving. Still on IV Abx, will defer to hospitalist/ID to determine duration and switching to PO Abx. Repeat renal imaging still showing some mild to mod Rt hydro, pt can f/u with Urology as OP for NM renal scan to further assess renal collecting system and/or cysto with retrograde pyelogram. Maintain elena for now, voiding trial OP with Urology as well. Anil Ghosh MD, ESTELLA
[2022-09-12] MEDS: NA CHLORIDE 0.9% 1,000 ML IV SCH ×2 (13:00→16:15)
[2022-09-12] MEDS ORDERED: NA CHLORIDE 0.9% 1,000 ML ONE (13:48)
--- NOTE | 2022-09-12 14:06 | P.PN ---
Subjective Date of Service: 09/12/22 Chief Complaint: fever Patient has no new complaint No fever. Leukocytosis continues to improve. Physical Examination - Vital Signs Temperature: 98.9 F Blood Pressure: 125/70 Pulse: 87 Respirations: 16 Pulse Ox (%): 98 Assessment And Plan - Plan Physical Exam General: Alert, oriented x3, NAD. Respiratory: Clear to auscultation bilaterally, Normal air movement Cardiovascular: No edema, Normal pulses, Regular rate/rhythm, Other (Hypotensive on arrival to the emergency room) Gastrointestinal: Normal bowel sounds, Soft and benign Musculoskeletal: No clubbing, left Charcot foot. Integumentary: left heel wound showing necrotic base. Neurological: Normal speech, no focal motor deficit. Urogenital: Bhardwaj catheter Diagnosis Severe sepsis without shock Metabolic encephalopathy Acute cystitis Obstructive uropathy Right hydronephrosis/hydroureter Chronic left ankle wound Zhv-bgvprdb-jmorikwsx diabetes mellitus Essential hypertension Hyperlipidemia GERD History of bladder cancer Assessment plan Severe sepsis without shock Acute cystitis/acute pyelonephritis. Chronic left foot wound Urine culture grew pansensitive E. coli. Wound culture: MSSA. Infectious disease is following. Antibiotics scaled down to IV cefepime. Continue IV fluid. Urology Dr. Ingram is following Repeat CT abdomen today to reassess hydronephrosis. Maintain Bhardwaj catheter Monitor CBC to follow leukocytosis. Metabolic encephalopathy Secondary to sepsis. AMS resolved Obstructive uropathy/acute kidney/hyperkalemia IV hydrate Maintain Bhardwaj catheter. Urology input appreciated. Hyperkalemia resolved. WISAM resolved. Continue to monitor renal function. Anemia: Stable Monitor CBC Chronic left ankle wound Noted left heel ulcer has necrotic base. General surgery consulted, patient seen by Dr. Lackey who is planning excisional debridement today Continue antibiotics. Sai-mgtdutc-dqbngfrme diabetes mellitus Essential hypertension Hyperlipidemia GERD Continue home medications. Insulin sliding scale. Full code DVT prophylaxis: Heparin
[2022-09-12] MEDS: BUPIVACAINE 0.5% PF 10 ML VIAL ONE ×2 (14:27→15:14)
[2022-09-12] MEDS ORDERED: SUCCINYLCHOLINE 20 MG/ML (10 ML) IV ONE (14:43)
[2022-09-12] MEDS ORDERED: MIDAZOLAM HCL 2 MG/2 ML INJ ONE (14:47)
[2022-09-12] MEDS ORDERED: FENTANYL CITR 100 MCG/2 ML ONE (14:47)
[2022-09-12] MEDS ORDERED: propofoL 200 MG/20 ML VIAL IV ONE (14:47)
[2022-09-12] MEDS ORDERED: LIDOCAINE 2% MPF 5 ML VIAL ONE (14:48)
[2022-09-12] MEDS ORDERED: ONDANSETRON 4 MG/2 ML VIAL ONE (15:12)
[2022-09-12] MEDS ORDERED: NS 0.9% VIAL 10 ML ONE (15:12)
[2022-09-12] MEDS ORDERED: Phenylephrine HCl 10 MG/ML 1 ML VIAL ONE (15:12)
[2022-09-12] MEDS ORDERED: dexAMETHasone 4 MG/ML VIAL ONE (15:15)
[2022-09-12] MEDS ORDERED: GLYCOPYRROLATE 0.2 MG/ML SYR ONE (15:16)
--- NOTE | 2022-09-12 15:17 | P.OP ---
Preoperative diagnosis: Necrotic LEFT heel and foot wounds Postoperative diagnosis: Necrotic LEFT heel and foot wounds Primary procedure: Debridement of LEFT heel and foot wounds Anesthesia: GETA + Local Estimated blood loss: <20cc Specimen: Debridement Tissue Findings: Necrotic LEFT heel and foot wounds Complications: None Transferred to: Recovery Room Condition: Good
[2022-09-12] MEDS ORDERED: COLLAGENASE 30 GM OINTMENT TOP ONE (15:44)
--- NOTE | 2022-09-12 19:23 | OP ---
Date of Procedure: 09/12/2022 Surgeon: Beltran Lackey MD, Preoperative Diagnosis: Necrotic left heel and foot wounds. Postoperative Diagnosis: Necrotic left heel and foot wounds. Procedure Performed: Debridement of the left heel and debridement of the left lateral foot wound. Anesthesia: General endotracheal local with 0.25% Marcaine. Estimated Blood Loss: Less than 1 cc. Specimen: Debridement tissue. Findings: Necrotic left heel for approximately 6.5 cm x 7 cm down to the bone involving the bone and a left lateral foot wound approximately 1.5 cm x 1 cm and additional satellite wound of approximatel y 0.5 cm x 0.75 cm, which was anterior to the previously described wound. Complications: None. Disposition: The patient was transferred to the recovery room in good condition. Procedure In Detail: After informed consent was obtained, the patient was brought to the operating r oom, prepped and draped in the usual sterile fashion after adequate anesthesia was achieved. I made a curvilinear incision using a 15 blade down to subcutaneous tissues and area of obvious necrosis on the left heel. I circumferentially dissected down using combination of sharp dissection and electroc autery to remove all necrotic tissue from the left heel. At this point, I got down to good bleeding tissue. It did abut to the bone all the way up to and involving the bone. After this was completely removed, I curetted the entire area to clean off the area and it did abut up to the bone table, but not into the depth of the cortical bone. At this point, hemostasis was achieved with electrocautery. I then irrigated the area and inspected once again. No additional hemostatic maneuvers were requir ed at this point. I then turned my attention to the left lateral foot wound and curetted this area d own into subcutaneous tissues only down to good bleeding tissue. This area was once again cleansed a s well and both areas were cleaned with approximately 1 L of saline, scrubbed aggressively, and then inspected for hemostasis and was achieved this point. The wounds were then packed with Vashe-soaked Kerlix and a sterile dressing placed over top. The patient tolerated the procedure well without evid ence of complication and transferred to PACU in good condition. All counts were correct at the end o f the case. TK/MODL Voice ID: [id number] Report ID: [id number]
[2022-09-12] MEDS: AMITRIPTYLINE 25 MG TAB PO SCH (20:31)
[2022-09-12] MEDS: ATORVASTATIN 40 MG TAB PO SCH (20:31)
[2022-09-13] MEDS: HEPARIN 5000 UNIT/ML 1 ML VIAL SQ SCH ×3 (01:52→17:35)
[2022-09-13] MEDS: TRAMADOL HCL 50 MG TAB PO PRN (02:09)
[2022-09-13 04:04] LABS: Absolute Lymphocytes (CBC) 1.4 K/uL (0.7-4.9); Hematocrit 30.8 % (39.6-49.0); Lymphocytes % 18.1 % (15.3-44.8); MCV 83.7 fL (80-100); MPV 9.6 fL (7.6-11.3); RBC Red Blood Cell Count 3.68 M/uL (4.33-5.43)
[2022-09-13 04:05] LABS: Potassium 4.1 mEq/L (3.5-5.1)
[2022-09-13] MEDS: INSULIN -REGULAR HUMAN 50 UNIT/0.5 ML ML SQ SCH ×4 (08:55→21:36)
[2022-09-13] MEDS: COLLAGENASE 30 GM OINTMENT TOP SCH (08:55)
[2022-09-13] MEDS: CEFEPIME 2 GM in NA CHLORIDE 0.9% 100 ML IV SCH ×2 (08:56→21:36)
[2022-09-13] MEDS: CITALOPRAM 10 MG TABLET PO SCH (08:56)
[2022-09-13] MEDS: FERROUS SULFATE 325 MG TAB PO SCH ×2 (08:57→17:35)
[2022-09-13] MEDS: DOXYCYCLINE 100 MG CAP PO SCH ×2 (08:57→21:39)
[2022-09-13] MEDS: AMLODIPINE 2.5 MG TAB PO SCH ×2 (08:57→21:39)
[2022-09-13] MEDS: GABAPENTIN 300 MG CAP PO SCH ×3 (08:57→21:39)
[2022-09-13] MEDS: PANTOPRAZOLE 40MG TABLET PO SCH (08:57)
[2022-09-13] MEDS: ASPIRIN 325 MG TAB PO SCH (08:57)
[2022-09-13] MEDS: URSODIOL 300 MG PO SCH ×2 (08:58→21:39)
--- NOTE | 2022-09-13 10:14 | P.PN ---
Date of Service: 09/13/22 Chief Complaint: fever, altered mental status Subjective: s/p I&D of left heel necrotic tissue yesterday by Dr. Lackey, tolerated procedure well. Patient denies any nausea, vomiting, abdominal pain or diarrhea. No shortness of breath, chest pain or back pain at this time. No acute events reported overnight. Physical Examination Temp Pulse Resp BP Pulse Ox 97.8 F 70 16 149/75 H 99 09/13/22 08:00 09/13/22 08:00 09/13/22 08:00 09/13/22 08:00 09/13/22 08:00 General: Alert, In no apparent distress, Oriented x3 HEENT: Atraumatic, Normocephalic. Neck: Supple, JVD not distended Respiratory: clear to auscultation. breathing comfortably on room air. Cardiovascular: Regular rate/rhythm, Normal S1 S2 Gastrointestinal: Normal bowel sounds. Soft and benign. Musculoskeletal: No clubbing Integumentary: Diabetic ulcer of left heel. Dressing clean dry and intact. Neurological: Normal speech, Normal tone, Normal affect Urinary: Bhardwaj catheter Studies Laboratory Data - Reviewed Microbiology Data - Reviewed Imagings Data: - XR Chest 09/07: "No acute intrathoracic process suspected." - CT Head 09/07: "No acute intracranial abnormality" - CT Abdomen Pelvis 09/08: "IMPRESSION: 1. Moderate right hydroureteronephrosis and perinephric/periureteral stranding. No obstructing stone identified. Correlate with any concern for recent stone passage or infection. 2. Diffuse bladder wall thickening. Correlate with any concern for cystitis, chronic bladder outlet obstruction, or other infiltrative process. 3. Additional non- emergent findings as above." Medications List - Reviewed Assessment and Plan Problem List Severe Sepsis, Resolved Diabetes Mellitus Chronic left heel diabetic ulcer Depression GERD Hx Bladder Cancer Hypertension Anemia Severe PCM Right Hydroureteronephrosis Urinary Tract Infection, complicated Severe Sepsis, resolved Urinary Tract Infection Right Hydroureteronephrosis secondary to Urinary Retention - Recently hospitalized for fungal UTI in July 2022 at [facility], treated with Fluconazole x 14 days. - CT Abdomen Pelvis 09/08: Moderate right hydroureteronephrosis and perinephric/periureteral stranding. No obstructing stone identified. Diffuse bladder wall thickening. - CT abdomen pelvis 09/12: "Mild to moderate right hydronephrosis minimally diminished in caliber. Stranding adjacent to the right renal pelvis and right ur eter probably indicating infection. Air within the bladder could simply be secondary to the Bhardwaj catheter in place. Infection can also have this appearance" - Urine culture 09/07: Escherichia coli - Urology following - Currently on Cefepime and Doxycycline (09/08-) Chronic Left Heel Diabetic Ulcer - Patient has been seeing podiatry/wound care as outpatient, most recently on 09/05. - Left heel wound culture 09/07: Staphylococcus aureus (MSSA) - s/p debridement of necrotic tissue left heel/foot on 09/12 - Continue with local wound care Blood cultures 09/07: No growth to date Leukocytosis improved (WBC 14.1 -> 8) Afebrile. QTc >500 Recommendations - Complicated UTI: E.coli is leroy-sensitive. Continue Cefepime while inpatient. Consider switch to Augmentin PO to complete 14 days antibiotic therapy (started 09/08). Follow up with urology as outpatient in 1-2 weeks. - Monitor WBC and fever trends - Pressure offloading measures. Continue wound care to right heel. - Strict blood glucose control Case discussed with Domingo Herron
--- NOTE | 2022-09-13 10:42 | P.PN ---
Date of Service: 09/13/22 Subjective: doing okay, wanting to go home no diarrhea / constipation; +appetite improving no acute events overnight afebrile ROS: 10 point ROS as noted above, otherwise negative Physical Exam: GEN: Alert, oriented, NAD, Elena in place HEENT: Normal conjunctiva, sclera anicteric CV: Regular rate and rhythm, no edema Pulm: Nonlabored respirations on room air ABD: Soft, nontender, nondistended Integumentary: Diabetic ulcer-left heel. Dressing c/d/i Neuro: Normal speech, normal affect Elena in place vitals reviewed Problem List: Severe sepsis without shock secondary to uti Metabolic encephalopathy Acute cystitis Obstructive uropathy Right hydronephrosis/hydroureter Chronic left ankle wound, Necrotic, now s/p I&D 09/12 NIDDM2 Hypertension Hyperlipidemia GERD History of bladder cancer Severe sepsis without shock Acute cystitis/acute pyelonephritis. Metabolic encephalopathy Urine culture grew pansensitive E. coli. Wound culture: Staph Aureus ID following Continue cefepime and doxy (09/08 - ~09/22) x2 weeks total per ID Possible PO augmentin on DC + doxy Continue IVF afebrile, +leukocytosis resolved AMS resolved Chronic left ankle wound, Necrotic, now s/p I&D 09/12 Noted left heel ulcer has necrotic base. General surgery consulted, patient seen by Dr. Lackey s/p I&D of necrotic tissue left heel/foot 09/12 local wound care f/u in office later this week Obstructive uropathy Right hydronephrosis/hydroureter CT Abdomen (09/08): Moderate right hydroureteronephrosis and perinephric/periureteral stranding. No obstructing stone identified. Diffuse bladder wall thickening. CT abdomen (09/12): Mild to moderate right hydronephrosis minimally diminished in caliber. continue elena Dr. Ingram - Urology following f/u with Urology as outpatient for consideration of NM renal scan WISAM hyperkalemia Nephrology consulted Continue IVF Hyperkalemia resolved. WISAM resolved. Continue to monitor renal function. Microcytic anemia Stable. transfuse if hgb < 7 NIDDM2 Hypertension Hyperlipidemia GERD SSI, Continue home medications. hyponatremia much better after correction of hyperglycemia VTE: Heparin sq Code: Full Dispo: Home, ~1 day
[2022-09-13] MEDS ORDERED: INSULIN GLARGINE 100 UNIT/ML SQ ONE (11:00)
--- NOTE | 2022-09-13 12:13 | P.PN ---
(S) Pt s/p Lt heel debridement, operative report reviewed with ulcer involving the bone. BG elevated this AM. Pt denies left foot pain, wanting to go home. (O) Vitals reviewed in the EMR General: In no apparent distress, Oriented x3, Cooperative HEENT: Atraumatic Neck: Supple Respiratory: Clear to auscultation bilaterally Cardiovascular: No sig Lt LE edema, Regular rate/rhythm Gastrointestinal: Soft and benign, Non-distended, elena present Musculoskeletal: No clubbing, No contractures Integumentary: Xerosis, left foot extensively dressed Neurological: Normal speech, awake, alert Laboratory Data (last 24 hrs) Reviewed in the EMR Imagings Data: Reviewed in the EMR Conclusions/Impression: Stage II WISAM in the setting of complicated UTI, pre-renal state, hypotension, Rt sided hydro -resolved -Cr level did downward trending nicely, but back up mildly over the past 48h possibly in the setting of some neg I/O balance with post obstructive diuresis, did add NS IVF to replace half of UOP for 12-24h. Hypotension, resolved. Underlying HTN -Started on CCB therapy by Dr. Hilton over the weekend, monitor. Rt sided hydro unspecified. Bladder outlet obstruction. Complicated UTI, GNR bacteriuria/leroy sensitive Ecoli -Leukocytosis resolved. Repeat renal imaging still showing some mild to mod Rt hydro, pt can f/u with Urology as OP for NM renal scan to further assess renal collecting system and/or cysto with retrograde pyelogram. Maintain elena for now, voiding trial OP with Urology as well. Lt heel DFU complicated with likely osteomyelitis, MSSA on wound cultures Abx per primary team, wound care management per surgery Anil Ghosh MD, ESTELLA
[2022-09-13] MEDS: AMITRIPTYLINE 25 MG TAB PO SCH (21:39)
[2022-09-13] MEDS: ATORVASTATIN 40 MG TAB PO SCH (21:39)
[2022-09-14] MEDS: HEPARIN 5000 UNIT/ML 1 ML VIAL SQ SCH ×2 (00:26→09:17)
[2022-09-14 04:47] VITALS: TEMP 98
[2022-09-14 05:49] LABS: Magnesium 1.8 mg/dL (1.6-2.4); Potassium 3.5 mEq/L (3.5-5.1)
--- NOTE | 2022-09-14 08:35 | P.DS ---
Admission Date: 09/07/22 Discharge Date: 09/14/22 Disposition: DC HOME/HOME HEALTH CARE Discharge Condition: GOOD Reason for Admission: fever Consultations: Cardiology - Dr. Roche Nephrology - Dr. Hannah Infectious Disease - Dr. Boston General Surgery - Dr. Lackey Urology - Dr. Ingram Brief History of Present Illness: 67yo M, PMH: insulin-dependent diabetes mellitus, depression, anemia, hyperlipi demia, UTIs, presents to the emergency room with confusion. Daughter is at bedside is primary historian reports that her father lives alone, reports good family support neighbors and family check on him daily. Reports he was recently discharged in July 19 for UTI and [facility]. Family reports she was here because she did not get enough answers at previous facility. She reports father has chronic bilateral lower extremity foot wounds is receiving home health with dressing changes. Reports he was recently seen by the urologist with no significant medication changes or treatments. Reports associated fever, hypotension on arrival to the emergency room, was treated for severe sepsis in ED. Central line was placed in ED for IV fluids and IV antibiotics for sepsis treatment. Plan to admit for severe sepsis without septic shock, unspecific kidney failure, chronic left foot wound. Hospital Course: Problem List: Severe sepsis without shock secondary to uti Metabolic encephalopathy Acute cystitis Obstructive uropathy Right hydronephrosis/hydroureter Chronic left ankle wound, Necrotic, now s/p I&D 09/12 NIDDM2 Hypertension Hyperlipidemia GERD History of bladder cancer Patient presented with worsening confusion, bilateral lower extremity chronic foot wounds found to be septic secondary to UTI and wound infection. Family reported patient recently had a UTI ~2 months ago. ID, General surgery, Nephrology, and Urology were consulted. CT abdomen/pelvis (09/08) noted moderate right hydroureteronephrosis and perinep hric/periureteral stranding, with diffuse bladder wall thickening, and without any obstructing stone identified. A elena catheter was placed in the ED. Urology was consulted, and recommended continue elena catheter and follow up in office after discharge in ~1-[address] was done on 09/12 which showed mild improvement of hydroureteronephrosis. Renal function was noted to be mildly decreased on admission (Cr: 2.2). Nephrology was consulted, and patient had improvement of renal function with Cr: 1.5 with elena and temporary IV fluids. Urine culture grew pansensitive E.coli, and wound culture grew staph aureus. He received cefepime and doxycycline during hospitalization. ID was consulted and recommended to complete 2 weeks of antibiotic treatment, transitioning to Augmentin + doxycycline on discharge. Dr. Lackey, General Surgery, was consulted regarding the patient's left heel ulcer. Patient underwent I&D on 09/12 and was noted to have have necrosis at base of skin, probed up to the bone, but did not appear to have bone involvement. Recommended local wound care and complete the 2 weeks of antibiotics. Patient to follow up in his office this week. Medications on discharge: Augmentin and doxycycline - 8 days Amlodipine 2.5mg twice daily was started due to elevated blood pressure readings in hospital. Continue to monitor BP at home Tramadol as needed for pain continue home meds as previously prescribed Follow up: PCP within [address] Lackey (General surgery) this Monday as scheduled Nephrology in a few weeks Urology in ~1-2 weeks Continue elena catheter until follow up with Urology. Physical Exam: GEN: Alert, oriented, NAD, Elena in place HEENT: Normal conjunctiva, sclera anicteric CV: Regular rate and rhythm, no edema Pulm: Nonlabored respirations on room air ABD: Soft, nontender, nondistended Integumentary: Diabetic ulcer-left heel. Dressing c/d/i Neuro: Normal speech, normal affect Vital Signs/Physical Exam: Temp Pulse Resp BP Pulse Ox 98.0 F 68 17 160/74 H 94 09/14/22 04:00 09/14/22 04:00 09/14/22 04:00 09/14/22 04:00 09/14/22 04:00 Laboratory Data at Discharge: WBC 8.00 thou/uL (4.3-10.9) 09/13/22 03:19 Hgb 10.1 g/dL (13.6-17.9) L 09/13/22 03:19 Hct 30.8 % (39.6-49.0) L 09/13/22 03:19 Plt Count 540 thou/uL (152-406) H 09/13/22 03:19 PT 14.6 SECONDS (9.5-12.5) H 09/07/22 19:31 INR 1.33 09/07/22 19:31 APTT 32.2 SECONDS (24.3-36.9) 09/07/22 19:31 Sodium 133 mEq/L (136-145) L D 09/14/22 05:13 Potassium 3.5 mEq/L (3.5-5.1) D 09/14/22 05:13 BUN 24 mg/dL (7-18) H 09/14/22 05:13 Creatinine 1.50 mg/dL (0.70-1.30) H 09/14/22 05:13 Glucose 304 mg/dL (74-106) H 09/14/22 05:13 Phosphorus 2.5 mg/dL (2.5-4.9) 09/12/22 03:47 Magnesium 1.8 mg/dL (1.6-2.4) 09/14/22 05:13 Total Bilirubin 0.4 mg/dL (0.2-1.0) 09/10/22 06:15 AST 12 U/L (15-37) L 09/10/22 06:15 ALT < 10 U/L (16-61) L 09/10/22 06:15 Alkaline Phosphatase 205 U/L (45-117) H 09/10/22 06:15 Home Medications: Amitriptyline [Elavil*] 25 mg PO BEDTIME 09/10/22 Aspirin 325 mg PO DAILY 09/10/22 Atorvastatin Calcium [Lipitor] 40 mg PO BEDTIME 09/10/22 Citalopram Hydrobromide [Celexa] 40 mg PO DAILY 09/10/22 Collagenase [Santyl Ointment*] 30 appl TOP DAILY 09/10/22 Ferrous Sulfate [Iron] 325 mg PO BID 09/10/22 Gabapentin 300 mg PO TID 09/10/22 Glimepiride [Amaryl*] 2 mg PO DAILY 09/10/22 Insulin Regular, Human [Novolin R] 15 unit SQ BEDTIME 09/10/22 Omeprazole [Prilosec] 40 mg PO DAILY 09/10/22 Promethazine Tab [Phenergan*] 12.5 mg PO Q6H PRN 09/10/22 ursodioL [Ursodiol] 600 mg PO BID 09/10/22 Amlodipine [Norvasc*] 2.5 mg PO BID 30 Days #60 tab 09/14/22 Amox/Clavulanate [Augmentin 875-125 Tab] 875 mg PO BID 8 Days #16 tab 09/14/22 Doxycycline Hyclate [Vibramycin] 100 mg PO BID 8 Days #16 cap 09/14/22 traMADol HCL [Ultram*] 50 mg PO Q8H PRN #15 tab 09/14/22 New Medications: Amox/Clavulanate [Augmentin 875-125 Tab] 875 mg PO BID 8 Days #16 tab Amlodipine [Norvasc*] 2.5 mg PO BID 30 Days #60 tab traMADol HCL [Ultram*] 50 mg PO Q8H PRN #15 tab PRN Reason: Pain Scale 5-7 (Moderate) Doxycycline Hyclate [Vibramycin] 100 mg PO BID 8 Days #16 cap Physician Discharge Instructions: Patient presented with worsening confusion, bilateral lower extremity chronic foot wounds found to be septic secondary to UTI and wound infection. Family reported patient recently had a UTI ~2 months ago. ID, General surgery, Nephrology, and Urology were consulted. CT abdomen/pelvis (09/08) noted moderate right hydroureteronephrosis and perinephric/periureteral stranding, with diffuse bladder wall thickening, and without any obstructing stone identified. A elena catheter was placed in the ED. Urology was consulted, and recommended continue elena catheter and follow up in office after discharge in ~1-[address] was done on 09/12 which showed mild improvement of hydroureteronephrosis. Renal function was noted to be mildly decreased on admission (Cr: 2.2). Nephrology was consulted, and patient had improvement of renal function with Cr: 1.5 with elena and temporary IV fluids. Urine culture grew pansensitive E.coli, and wound culture grew staph aureus. He received cefepime and doxycycline during hospitalization. ID was consulted and recommended to complete 2 weeks of antibiotic treatment, transitioning to Augmentin + doxycycline on discharge. Dr. Lackey, General Surgery, was consulted regarding the patient's left heel ulcer. Patient underwent I&D on 09/12 and was noted to have have necrosis at base of skin, probed up to the bone, but did not appear to have bone involvement. Recommended local wound care and complete the 2 weeks of antibiotics. Patient to follow up in his office this week. Medications on discharge: Augmentin and doxycycline - 8 days Amlodipine 2.5mg twice daily was started due to elevated blood pressure readings in hospital. Continue to monitor BP at home Tramadol as needed for pain continue home meds as previously prescribed Follow up: PCP within [address] Lackey (General surgery) later this week as discussed Nephrology in a few weeks Urology in ~1-2 weeks Continue elena catheter until follow up with Urology. Followup: Hayden Schmidt, DO [Primary Care Provider] - Time spent managing pt's care (in minutes): 45
[2022-09-14 08:40] VITALS: O2SAT 94
[2022-09-14] MEDS: INSULIN GLARGINE 100 UNIT/ML SQ SCH ×2 (09:00→09:31)
[2022-09-14] MEDS: ASPIRIN 325 MG TAB PO SCH (09:00)
[2022-09-14] MEDS ORDERED: MAGNESIUM SULFATE 1 gm IVPB 1 GM/100 ML BAG IV ONE (09:00)
[2022-09-14] MEDS ORDERED: POTASSIUM CL SA 10 MEQ TAB PO ONE (09:00)
[2022-09-14] MEDS: INSULIN -REGULAR HUMAN 50 UNIT/0.5 ML ML SQ SCH ×3 (09:16→12:44)
[2022-09-14] MEDS: CITALOPRAM 10 MG TABLET PO SCH (09:17)
[2022-09-14] MEDS: FERROUS SULFATE 325 MG TAB PO SCH (09:17)
[2022-09-14] MEDS: GABAPENTIN 300 MG CAP PO SCH (09:18)
[2022-09-14] MEDS: DOXYCYCLINE 100 MG CAP PO SCH (09:18)
[2022-09-14] MEDS: AMLODIPINE 2.5 MG TAB PO SCH (09:18)
[2022-09-14] MEDS: COLLAGENASE 30 GM OINTMENT TOP SCH (09:19)
[2022-09-14] MEDS: URSODIOL 300 MG PO SCH (09:33)
[2022-09-14] MEDS: PANTOPRAZOLE 40MG TABLET PO SCH (09:35)
[2022-09-14 09:39] VITALS: BP 152/73
--- NOTE | 2022-09-14 09:54 | P.PN ---
Date of Service: 09/14/22 Chief Complaint: fever, altered mental status Subjective: Patient seen and examined at bedside. Reports left foot pain. Reports improvement in appetite. Denies any nausea, vomiting, diarrhea or abdominal pain. No cough, shortness of breath or chest pain. Physical Examination Temp Pulse Resp BP Pulse Ox 98.0 F 77 17 152/73 H 94 09/14/22 04:00 09/14/22 09:18 09/14/22 04:00 09/14/22 09:18 09/14/22 04:00 General: Alert, In no apparent distress, Oriented x3 HEENT: Atraumatic, Normocephalic. Neck: Supple, JVD not distended Respiratory: clear to auscultation. breathing comfortably on room air. Cardiovascular: Regular rate/rhythm, Normal S1 S2 Gastrointestinal: Normal bowel sounds. Soft and benign. Musculoskeletal: No clubbing Integumentary: Diabetic ulcer of left heel with dressing clean dry and intact. Right foot lesions on dorsal and medial aspect. Neurological: Normal speech, Normal tone, Normal affect Urinary: Bhardwaj catheter Studies Laboratory Data - Reviewed Microbiology Data - Reviewed Imagings Data: - XR Chest 09/07: "No acute intrathoracic process suspected." - CT Head 09/07: "No acute intracranial abnormality" - CT Abdomen Pelvis 09/08: "IMPRESSION: 1. Moderate right hydroureteronephrosis and perinephric/periureteral stranding. No obstructing stone identified. Co rrelate with any concern for recent stone passage or infection. 2. Diffuse bladder wall thickening. Correlate with any concern for cystitis, chronic bladder outlet obstruction, or other infiltrative process. 3. Additional non- emergent findings as above." Medications List - Reviewed Assessment and Plan Problem List Severe Sepsis, Resolved Diabetes Mellitus Chronic left heel diabetic ulcer Depression GERD Hx Bladder Cancer Hypertension Anemia Severe PCM Right Hydroureteronephrosis Urinary Tract Infection, complicated Severe Sepsis, resolved Urinary Tract Infection Right Hydroureteronephrosis secondary to Urinary Retention - Recently hospitalized for fungal UTI in July 2022 at [facility], treated with Fluconazole x 14 days. - CT Abdomen Pelvis 09/08: Moderate right hydroureteronephrosis and perinephric/periureteral stranding. No obstructing stone identified. Diffuse bladder wall thickening. - CT abdomen pelvis 09/12: "Mild to moderate right hydronephrosis minimally diminished in caliber. Stranding adjacent to the right renal pelvis and right ureter probably indicating infection. Air within the bladder could simply be secondary to the Bhardwaj catheter in place. Infection can also have this appearance" - Urine culture 09/07: Escherichia coli - Urology following - Currently on Cefepime and Doxycycline (09/08-) Chronic Left Heel Diabetic Ulcer - Patient has been seeing podiatry/wound care as outpatient, most recently on 09/05. - Left heel wound culture 09/07: Staphylococcus aureus (MSSA) - s/p debridement of necrotic tissue left heel/foot on 09/12 - Continue with local wound care Blood cultures 09/07: No growth to date Leukocytosis resolved Afebrile. QTc >500 Recommendations - Complicated UTI: E.coli is leroy-sensitive. Continue Cefepime while inpatient. Consider switch to Augmentin PO to complete 14 days antibiotic therapy (started 09/08). - Follow up with urology as outpatient in 1-2 weeks. - Monitor WBC and fever trends - Pressure offloading measures. Continue wound care to left heel. - Strict blood glucose control Case discussed with Domingo Herron
[2022-09-14] MEDS: CEFEPIME 2 GM in NA CHLORIDE 0.9% 100 ML IV SCH (10:53)
--- NOTE | 2022-09-14 12:00 | P.PN ---
(S) Pt has no acute complaints, awaiting ID reccs on Abx in the context of lt heel ulcer with some penetration to bone. No left foot pain reported (O) Vitals reviewed in the EMR General: In no apparent distress, Oriented x3, Cooperative HEENT: Atraumatic Neck: Supple Respiratory: Clear to auscultation bilaterally Cardiovascular: No sig Lt LE edema, Regular rate/rhythm Gastrointestinal: Soft and benign, Non-distended, elena present Musculoskeletal: No clubbing, No contractures Integumentary: Xerosis, left foot extensively dressed Neurological: Normal speech, awake, alert Laboratory Data (last 24 hrs) Reviewed in the EMR Imagings Data: Reviewed in the EMR Conclusions/Impression: Stage II WISAM in the setting of complicated UTI, pre-renal state, hypotension, Rt sided hydro -resolved -Cr level did downward trending nicely, but back up mildly over the past 48h possibly in the setting of some neg I/O balance with post obstructive diuresis, did add NS IVF to replace half of UOP for 12-24h. Renal function stable, cont to monitor as OP, in the context of chronic DM with complication, may have deve loped earlier stage CKD Hypotension, resolved. Underlying HTN -Started on CCB therapy by Dr. Hilton over the weekend, monitor. Can assess as OP for the need for ACEi or ARB Rt sided hydro unspecified. Bladder outlet obstruction. Complicated UTI, GNR bacteriuria/leroy sensitive Ecoli -Leukocytosis resolved. Repeat renal imaging still showing some mild to mod Rt hydro, pt can f/u with Urology as OP for NM renal scan to further assess renal collecting system and/or cysto with retrograde pyelogram. Maintain elena for now, voiding trial OP with Urology as well. Lt heel DFU complicated with likely osteomyelitis, MSSA on wound cultures Abx per primary team, wound care management per surgery Anil Ghosh MD, ESTELLA
[2022-09-14] MEDS: TRAMADOL HCL 50 MG TAB PO PRN (12:53)
== END 2022-09-14 16:50 | disposition home health service (06) | DRG 853 ==
LOC: ER 18:52 → ERHOLD 21:55 → 4TH 09-08 00:38
PROVIDERS: ADMIT Internal Medicine; ATTEND Hospitalist
PROC: 02HV33Z Insertion of Infusion Device into Superior Vena Cava, Percutaneous Approach (ICD-10-PCS; principal; 2022-09-07)
PROC: 0JBR0ZZ Excision of Left Foot Subcutaneous Tissue and Fascia, Open Approach (ICD-10-PCS; 2022-09-12)
DX: A41.51 Sepsis due to Escherichia coli [E. coli] (principal); E43 Unspecified severe protein-calorie malnutrition; G93.41 Metabolic encephalopathy; N17.9 Acute kidney failure, unspecified; E87.1 Hypo-osmolality and hyponatremia; L97.419 Non-pressure chronic ulcer of right heel and midfoot with unspecified severity; N13.6 Pyonephrosis; N13.8 Other obstructive and reflux uropathy; I13.0 Hypertensive heart and chronic kidney disease with heart failure and stage 1 through stage 4 chronic kidney disease, or unspecified chronic kidney disease; E11.52 Type 2 diabetes mellitus with diabetic peripheral angiopathy with gangrene; A41.01 Sepsis due to Methicillin susceptible Staphylococcus aureus; R65.20 Severe sepsis without septic shock; I50.9 Heart failure, unspecified; N18.2 Chronic kidney disease, stage 2 (mild); E11.22 Type 2 diabetes mellitus with diabetic chronic kidney disease; E11.621 Type 2 diabetes mellitus with foot ulcer; E11.65 Type 2 diabetes mellitus with hyperglycemia; D63.1 Anemia in chronic kidney disease; E87.5 Hyperkalemia; E78.5 Hyperlipidemia, unspecified; N40.1 Benign prostatic hyperplasia with lower urinary tract symptoms; D50.9 Iron deficiency anemia, unspecified; R33.8 Other retention of urine; E87.6 Hypokalemia; E83.42 Hypomagnesemia; E88.09 Other disorders of plasma-protein metabolism, not elsewhere classified; K21.9 Gastro-esophageal reflux disease without esophagitis; Z60.2 Problems related to living alone; Z79.4 Long term (current) use of insulin; Z88.5 Allergy status to narcotic agent; Z85.51 Personal history of malignant neoplasm of bladder; Z90.81 Acquired absence of spleen; Z68.26 Body mass index [BMI] 26.0-26.9, adult; Z79.82 Long term (current) use of aspirin; Z79.84 Long term (current) use of oral hypoglycemic drugs; Z79.899 Other long term (current) drug therapy
CPT/HCPCS: 36415; 51702; 70450; 71045; 74176; 76377; 80048; 80053; 81001; 82947; 83605; 83735; 83880; 84100; 85025; 85610; 85730; 87040; 87070; 87077; 87086; 87088; 87186; 87205; 87804; 88304; 93005; 93306; 99285; A4216; J0692; J1100; J1644; J1815; J1940; J2001; J2250; J2371; J2405; J2704; J3010; J3475; J3480; J3590; J7030; J7050

== ENCOUNTER 2023-10-12 11:56 | Emergency (ER) | payer OTHER ==
[2023-10-12] MEDS ORDERED: NITROFURAN MACRO 100 MG CAP PO ONE (13:44)
--- NOTE | 2023-10-12 13:48 | EDPHYS ---
Physician Documentation [facility] Name: Pedro Estrella Age: 68 yrs Sex: Male : 1955 Arrival Date: 10/12/2023 Time: 11:56 Bed 12 Private MD: ED Physician Bassam Brewer HPI: 10/11 13:46 This 68 yrs old Male presents to ER via Wheelchair with complaints of Abnormal rn delivery Results. 13:46 The patient presents with urinary symptoms, dysuria, urinary frequency. Onset: The rn symptoms/episode began/occurred at an unknown time. The patient has experienced a previous episode. Patient reports sent here by PCP for abnormal urine culture. States has had resistant UTI in the past that required PICC line and IV antibiotics. No recent antibiotics. Patient states he feels fine and does not feel sick but does report slight dysuria and increased urinary frequency. No immunocompromisation. No fever or chills.. Historical: - Allergies: 12:20 NKA; tm6 - PMHx: 12:20 Anemia; Bladder problem; depressive disorder; Diabetes - NIDDM; Gastroesophageal reflux tm6 disease; HX OF UTI (Hypertension); Hypercholesterolemia; Hypertension; PVD; 12:20 bladder cancer; tm6 - PSHx: 12:20 Cholecystectomy; quadrupile bypass; right foot; tm6 - Immunization history:: Client reports receiving the 2nd dose of the Covid vaccine. - Infectious Disease History:: Denies. - Social history:: Smoking status: Patient denies any tobacco usage or history of. Patient/guardian denies using alcohol. - Family history:: not pertinent. - Hospitalizations: : No recent hospitalization is reported. ROS: 13:46 Constitutional: Negative for fever, chills, and weight loss, Cardiovascular: Negative rn for chest pain, palpitations, and edema, Respiratory: Negative for shortness of breath, cough, wheezing, and pleuritic chest pain, Abdomen/GI: Negative for abdominal pain, nausea, vomiting, diarrhea, and constipation, : Positive for mild dysuria and increased urinary frequency Exam: 13:46 Constitutional: This is a well developed, well nourished patient who is awake, alert, rn and in no acute distress. Cardiovascular: Regular rate and rhythm. No pulse deficits. Abdomen/GI: Soft, nontender Vital Signs: 12:18 Temp 98.6(O); Weight 104.33 kg; Height 6 ft. 3 in. ; Pain 0/10; tm6 12:19 BP 143 / 76; Pulse 73; Resp 19; Pulse Ox 98% on R/A; tm6 12:18 Body Mass Index 28.75 (104.33 kg, 190.5 cm) tm6 12:18 Pain Scale: Adult tm6 MDM: 12:03 Patient medically screened. rn 13:46 Differential diagnosis: UTI. Data reviewed: vital signs, nurses notes, and as a result, rn I will discharge patient. Counseling: I had a detailed discussion with the patient and/or guardian regarding the historical points, exam findings, and any diagnostic results supporting the discharge/admit diagnosis, the need for outpatient follow up, to return to the emergency department if symptoms worsen or persist or if there are any questions or concerns that arise at home. Special discussion: I discussed with the patient/guardian in detail that at this point there is no indication for admission to the hospital. It is understood, however, that if the symptoms persist or worsen the patient needs to return immediately for re-evaluation. ED course: Consulted with hospitalist, Dr. Brewer, who in turn consulted with infectious disease Dr. Boston, who recommends outpatient treatment with nitrofurantoin given is susceptible on testing and patient without systemic symptoms and no immunocompromise. Patient wants to go home with oral antibiotics and states feels fine. States will return if anything gets worse. Return precautions given and understood.. Administered Medications: 13:47 Drug: Nitrofurantoin PO 100 mg PO once; administer with food Route: PO; ll1 14:00 Follow up: Response: No adverse reaction ll1 Disposition Summary: 10/12/23 13:48 Discharge Ordered Notes: Location: Home rn Problem: new rn Symptoms: are unchanged rn Condition: Stable rn Diagnosis - UTI/ Urinary tract infection, site not specified rn Followup: rn - With: Private Physician - When: 5 - 6 days - Reason: Recheck today's complaints, Re-evaluation by your physician Discharge Instructions: - Discharge Summary Sheet rn - Urinary Tract Infection, Adult rn Forms: - Medication Reconciliation Form rn - Antibiotic 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
--- NOTE | 2023-10-12 13:48 | ER ---
Nurse's Notes [facility] Name: Pedro Estrella Age: 68 yrs Sex: Male : 1955 Arrival Date: 10/12/2023 Time: 11:56 Bed 12 Private MD: Diagnosis: UTI/ Urinary tract infection, site not specified Presentation: 10/11 12:18 Chief complaint: Patient states: DrBisi asked to come in because I have a bladder tm6 bacteria. Coronavirus screen: Vaccine status: Patient reports receiving the 2nd dose of the covid vaccine. Ebola Screen: Patient negative for fever greater than or equal to 101.5 degrees Fahrenheit, and additional compatible Ebola Virus Disease symptoms Patient denies exposure to infectious person. Patient denies travel to an Ebola-affected area in the 21 days before illness onset. No symptoms or risks identified at this time. Initial Sepsis Screen: Does the patient meet any 2 criteria? No. Patient's initial sepsis screen is negative. Does the patient have a suspected source of infection? No. Patient's initial sepsis screen is negative. Risk Assessment: Do you want to hurt yourself or someone else? Patient reports no desire to harm self or others. Onset of symptoms was October 12, 2023. 12:18 Method Of Arrival: Wheelchair tm6 12:18 Acuity: JANIYA 3 tm6 Triage Assessment: 12:21 General: Appears in no apparent distress. Behavior is calm, cooperative. Pain: Denies tm6 pain. EENT: No signs and/or symptoms were reported regarding the EENT system. Neuro: Level of Consciousness is awake, alert, obeys commands, Oriented to person, place, time, situation. Cardiovascular: No deficits noted. Patient's skin is warm and dry. Respiratory: Airway is patent Respiratory effort is even, unlabored, Respiratory pattern is regular, symmetrical. GI: No signs and/or symptoms were reported involving the gastrointestinal system. Abdomen is flat, non-distended. : Reports said I have a bacteria in my bladder that needs to be killed. Derm: No signs and/or symptoms reported regarding the dermatologic system. Musculoskeletal: left foot broken, past injury. Historical: - Allergies: 12:20 NKA; tm6 - PMHx: 12:20 Anemia; Bladder problem; depressive disorder; Diabetes - NIDDM; Gastroesophageal reflux tm6 disease; HX OF UTI (Hypertension); Hypercholesterolemia; Hypertension; PVD; 12:20 bladder cancer; tm6 - PSHx: 12:20 Cholecystectomy; quadrupile bypass; right foot; tm6 - Immunization history:: Client reports receiving the 2nd dose of the Covid vaccine. - Infectious Disease History:: Denies. - Social history:: Smoking status: Patient denies any tobacco usage or history of. Patient/guardian denies using alcohol. - Family history:: not pertinent. - Hospitalizations: : No recent hospitalization is reported. Screenin:00 [facility] ED Fall Risk Assessment (Adult) History of falling in the last 3 months, ll1 including since admission No falls in past 3 months (0 pts) Confusion or Disorientation No (0 pts) Intoxicated or Sedated No (0 pts) Impaired Gait Yes (1 pt) Mobility Assist Device Used Yes (1 pt) Altered Elimination No (0 pt) Score/Fall Risk Level 0 - 2 = Low Risk Maintained a safe environment, Hourly rounding (assess needs \\T\\ fall precautionary measures) done. Abuse screen: Denies threats or abuse. Nutritional screening: No deficits noted. Tuberculosis screening: No symptoms or risk factors identified. Assessment: 13:47 Reassessment: No changes from previously documented assessment. Patient and/or family ll1 updated on plan of care and expected duration. Pain level reassessed. Patient is alert, oriented x 3, equal unlabored respirations, skin warm/dry/pink. 14:00 Reassessment: No changes from previously documented assessment. Patient and/or family ll1 updated on plan of care and expected duration. Pain level reassessed. Patient is alert, oriented x 3, equal unlabored respirations, skin warm/dry/pink. General: Appears in no apparent distress. Behavior is calm, cooperative, appropriate for age. General: " I feel fine!" Reports bacteria in his urine again. Pain: Denies pain. Vital Signs: 12:18 Temp 98.6(O); Weight 104.33 kg; Height 6 ft. 3 in. ; Pain 0/10; tm6 12:19 BP 143 / 76; Pulse 73; Resp 19; Pulse Ox 98% on R/A; tm6 12:18 Body Mass Index 28.75 (104.33 kg, 190.5 cm) tm6 12:18 Pain Scale: Adult tm6 ED Course: 11:59 Patient arrived in ED. ra3 12:03 Bassam Brewer MD is Attending Physician. rn 12:19 Triage completed. tm6 12:20 Arm band placed on left wrist. tm6 14:00 Patient has correct armband on for positive identification. Provided Education on: ll1 finish prescribed antibiotics. Return to ED for worsening symptoms.. 14:00 No provider procedures requiring assistance completed. Patient did not have IV access ll1 during this emergency room visit. Administered Medications: 13:47 Drug: Nitrofurantoin PO 100 mg PO once; administer with food Route: PO; ll1 14:00 Follow up: Response: No adverse reaction ll1 Medication: 14:00 VIS not applicable for this client. ll1 Outcome: 13:48 Discharge ordered by . rn 14:00 Patient left the ED. ll1 14:00 Discharged to home via wheelchair, ll1 14:00 Condition: stable 14:00 Discharge instructions given to patient, Instructed on discharge instructions, follow up and referral plans. medication usage, Demonstrated understanding of instructions, follow-up care, medications, Prescriptions given X 1, Signatures: Bassam Brewer MD MD rn Lewis, Lynsay RN RN ll1 Hair Denton RN RN 6 Dulce Jerez ra3
[2023-10-12 14:18] VITALS: TEMP 98.6
[2023-10-12 14:20] VITALS: BP 143/76; O2SAT 98
== END 2023-10-12 14:00 | disposition home or self-care (01) ==
LOC: ER 11:56
DX: N39.0 Urinary tract infection, site not specified (principal); Z85.51 Personal history of malignant neoplasm of bladder
CPT/HCPCS: 99283